=== PATIENT | male | born 1950 | race Caucasian/White ===

== ENCOUNTER 2019-02-22 09:47 | Emergency (ER) | payer OTHER, MEDICARE, SELFPAY ==
[2019-02-22 09:48] VITALS: BP 131/58; PULSE 66; RESP 15; TEMP 36.7; O2SAT 98; BMI 26.1
--- NOTE | 2019-02-22 10:02 | EKG12_ITS ---
Test Reason : ABN LABS Blood Pressure : / mmHG Vent. Rate : 056 BPM Atrial Rate : 258 BPM P-R Int : 000 ms QRS Dur : 094 ms QT Int : 410 ms P-R-T Axes : 000 -40 061 degrees QTc Int : 395 ms Atrial flutter with slow ventricular response LAHB Left axis deviation Abnormal ECG Confirmed by ISAMAR BACA ([id number]), supervising editor news reel KENAN RIDLEY ([id number]) on 02/23/2019 2:36:48 PM Referred By: DENY Confirmed By:ISAMAR BACA
--- NOTE | 2019-02-22 10:04 | ED.VIS.GEN ---
History of Present Illness Chief Complaint: Abn Labs Detail of Chief Complaint: gen weakness Informant: Patient Onset: Days - 5 or so Context: Gradual Onset Timing: Continuous Quality: weak Location: all over Current Severity: Severe Maximum Severity: Severe Worsened by: nothing Relieved by: nothing Associated Symptoms: poor appetite and po intake. disorientation. Narrative: Patient lives in independent living. He was seen at the [facility] as an outpatient yesterday for feeling bad, and was told today that his sodium was low at 121 and he should go to the hospital. He drinks around 6 cans of beer daily, states he never has withdrawal if he does not drink but states he has been doing this for decades, just because he enjoys it. He never gets intoxicated. His last drink was last night he denies any symptoms of withdrawal right now but states he will get withdrawal if he does not get a nicotine patch or tobacco. He has been feeling disoriented, gives examples of forgetting his credit card pin that has not changed in decades, forgetting to turn off the stove, etc. but has not been grossly confused about who he is, where he is, etc. Denies any focal neurologic symptoms or vision changes. - Past Medical History (1) Alcohol dependence Status: Chronic Comment: 15 beers daily (2) Asymptomatic coronary heart disease Status: Chronic (3) BPH without obstruction/lower urinary tract symptoms Status: Chronic (4) COLD (chronic obstructive lung disease) Status: Chronic (5) Paroxysmal atrial fibrillation Status: Chronic Comment: recommended anticoagulation as of 02/2014 (6) Stenosis of esophagus Status: Chronic Past Medical History - Allergies and Home Meds Allergies/Adverse Reactions: Allergies venom-honey bee [bee venom (honey bee)] Allergy (Verified 02/22/19 09:48) Anaphylaxis Primary Care Physician: [place] [Primary Care Provider] - Surgical History: herniorrhaphy, - - esophageal surgery. Lives: - - Independent living Smoking Status: Current every day smoker Alcohol: Heavy Drugs: None - Family History Maternal Family History: Reports: Cancer, Diabetes Paternal Family History: Reports: Cancer Review of Systems General: Reports: Malaise. Denies: Chills, Fever, Sweats Eyes: Denies: Visual changes - bilaterally, Diplopia ENT: Denies: Rhinorrhea, Sore throat Cardiovascular: Denies: Chest pain, Palpitations Respiratory: Denies: Dyspnea, Cough, Dyspnea on exertion Gastrointestinal: Denies: Abdominal pain, Nausea, Vomiting, Diarrhea, Melena, Hematochezia Genitourinary: Denies: Dysuria, Hematuria, Frequency Musculoskeletal: Denies: Back pain, Extremity Pain Skin: Denies: Rash, Wounds Neurological: Denies: Headache, Weakness, Numbness Physical Exam Vital Signs/Narrative: Vital Signs Temp Pulse Resp BP Pulse Ox 02/22/19 09:48 98.1 F 66 15 131/58 H 98 Inital Vital Signs reviewed: Yes General: Well nourished, Well developed, No Acute Distress Head: Normocephalic, Atraumatic Eyes: Perrl, EOMI. Negative for: Scleral icterus ENT: Moist mucous membranes, No rhinorrhea Neck: Supple, Nontender, No lymphadenopathy, No JVD Cardiovascular: Regular rate, Regular rhythm, No murmurs, Normal S1, Normal S2 Respiratory: No distress, CTA bilaterally, Chest nontender Abdomen: Soft, Nontender, Normal bowel sounds, - - Distended obese, nontender abdomen without fluid wave Back: Nontender, Normal Inspection Extremities: Nontender, No edema. Negative for: Calf Tenderness Skin: Normal color, No rash, No Trauma Neurological: Alert, Oriented x3, Cranial nerves II-XII grossly intact, Normal Strength, Normal Sensation Psychological: Normal affect, Normal Mood Diagnostic/Tx/Re-eval Laboratory Results 02/22/19 02/22/19 02/22/19 10:23 10:23 10:23 WBC 11.8 H RBC 4.63 Hgb 16.1 Hct 44.9 MCV 97.0 H MCH 34.8 H MCHC 35.9 RDW Std Deviation 44.0 H RDW Coeff of Fredi 12.4 Plt Count 198 MPV 9.1 Immature Gran % (Auto) 0.300 Neut % (Auto) 83.1 H Lymph % (Auto) 7.5 L Jackson % (Auto) 8.6 Eos % (Auto) 0.3 Baso % (Auto) 0.2 Absolute Neuts (auto) 9.8 H Absolute Lymphs (auto) 0.89 Nucleated RBC % 0 PT 13.2 INR 1.0 Sodium 126 L Potassium 4.5 Chloride 91 L Carbon Dioxide 26.0 Anion Gap 9 BUN 6 L Creatinine 0.75 Estim Creat Clear Calc 77.68 Est GFR (MDRD) Af Amer 132 Est GFR (MDRD) Non-Af 109 BUN/Creatinine Ratio 8.0 L Glucose 97 Calcium 9.0 Total Bilirubin 0.60 AST 18 ALT 23 Alkaline Phosphatase 94 Troponin I < 0.015 Total Protein 7.7 Albumin 3.6 Globulin 4.1 Albumin/Globulin Ratio 0.9 Urine Color Urine Clarity Urine pH Ur Specific [place] Urine Protein Urine Glucose (UA) Urine Ketones Urine Occult Blood Urine Nitrite Urine Bilirubin Urine Urobilinogen Ur Leukocyte Esterase Urine RBC Urine WBC Ur Squamous Epith Cells Urine Bacteria Urine Mucus Ethyl Alcohol 02/22/19 02/22/19 10:23 12:10 WBC RBC Hgb Hct MCV MCH MCHC RDW Std Deviation RDW Coeff of Fredi Plt Count MPV Immature Gran % (Auto) Neut % (Auto) Lymph % (Auto) Jackson % (Auto) Eos % (Auto) Baso % (Auto) Absolute Neuts (auto) Absolute Lymphs (auto) Nucleated RBC % PT INR Sodium Potassium Chloride Carbon Dioxide Anion Gap BUN Creatinine Estim Creat Clear Calc Est GFR (MDRD) Af Amer Est GFR (MDRD) Non-Af BUN/Creatinine Ratio Glucose Calcium Total Bilirubin AST ALT Alkaline Phosphatase Troponin I Total Protein Albumin Globulin Albumin/Globulin Ratio Urine Color Yellow Urine Clarity Clear Urine pH 7.0 Ur Specific [place] 1.005 Urine Protein Negative Urine Glucose (UA) Normal Urine Ketones Negative Urine Occult Blood Negative Urine Nitrite Negative Urine Bilirubin Negative Urine Urobilinogen Normal Ur Leukocyte Esterase Negative Urine RBC 0 SEEN Urine WBC 0 SEEN Ur Squamous Epith Cells 0 SEEN Urine Bacteria RARE Urine Mucus 0 SEEN Ethyl Alcohol 4.0 - Rhythm Strip Rhythm Strip: Sinus Rhythm Rate: 60 Ectopy: None - EKG Initial EKG Interpretation: Sinus Rhythm - with background tremor, No Acute Injury Pattern, - - PVC Prior: Unchanged - except for background tremor - Medical Decision Making Sodium is higher now, at 126. I suspect he was some dramatic from his hyponatremia, which is likely due to heavy alcohol use. His EKG has rhythmic background artifact that I suspect is more likely tremor rather than a flutter. The rate is less than 300. His ventricular rate is in the 50s. He was given a meal tray and ate the entire thing without any difficulty, he is able to ambulate, but does better with a walker. We had social worker delinquency prevention evaluate him, to see if there was anything that could help him at home. I initially discussed with the hospitalist for further correction of his sodium but Dr. reyna declined since his sodium is at his baseline and he has obvious cause for it, likely his alcohol use. Discussed with him and he is comfortable going home at this time and will call for a ride. ED Disposition - Plan for ED Patient: Disposition: Home or Assisted Living Diagnosis: Hyponatremia, Alcohol dependence Instructions: Hyponatremia [place]errals[place] [facility] [Primary Care Provider] - 3-5 Days
[2019-02-22 10:35] LABS: Absolute Lymphocyte Count 0.89 X10^3/uL (0.83-4.51); Absolute Neutrophil Count 9.8 X10^3/uL (2.0-7.7); Basophil# 0.02 X10^3/uL; Basophil% 0.2 % (0-1); Eosinophil# 0.03 X10^3/uL; Eosinophils% 0.3 % (0-5); Hematocrit 44.9 % (40-54); Hemoglobin 16.1 g/dL (13.0-16.5); Lymphocyte # 0.89 X10^3/ul (4.0); Lymphocyte % 7.5 % (19-41); Mean Corp Hgb Conc 35.9 g/dL (32-36); Mean Corpuscular Hgb 34.8 pg (27.0-32.0); Mean Platelet Vol. 9.1 fl (6.2-12.0); Monocyte# 1.02 X10^3/uL; Monocyte% 8.6 % (0-10); NRBC Flagged by Analyzer 0 % (0-5); Neutrophil % 83.1 % (47-70); Platelet Count 198 K/mm3 (150-450); RBC Distribution Width CV 12.4 % (11.6-14.6); Red Blood Count 4.63 M/mm3 (4.6-6.2); White Blood Count 11.8 K/mm3 (4.4-11.0)
[2019-02-22 10:46] LABS: Prothrombin Time (Protime)PT. 13.2 SECONDS (11.7-14.9)
[2019-02-22 10:48] VITALS: TEMP 36.6
[2019-02-22 10:54] LABS: ALB/GLOB Ratio 0.9 RATIO (0.9-2.4); AST(SGOT) 18 U/L (15-37); Alanine Aminotransfer ALT/SGPT 23 U/L (16-61); Albumin, Serum 3.6 g/dL (3.2-5.0); Alkaline Phosphatase 94 U/L (45-117); Anion Gap 9 (5-15); BUN 6 mg/dL (7-18); Chloride 91 mmol/L (98-107); Creatinine, Serum 0.75 mg/dL (0.70-1.30); EST Glomerular Filtration Rate 109 mL/min (>60); Est Glom Filt Rate - Afr Amer 132 mL/min (>60); Estimated Creatinine Clearance 77.68 ml/min; Globulin 4.1 g/dL (2.2-4.2); Glucose 97 mg/dL (74-106); Potassium 4.5 mmol/L (3.5-5.1); Protein, Total 7.7 g/dL (6.4-8.2); Sodium Level 126 mmol/L (136-145)
[2019-02-22 11:15] VITALS: BP 125/77; PULSE 50; RESP 18; O2SAT 96
[2019-02-22] MEDS: 0.9% Normal Saline 1,000 ML 125 ML IV (11:15)
[2019-02-22 12:19] LABS: Mucous, Urine 0 SEEN /hpf (<or=2+); Red Blood Cells-Urine 0 SEEN /hpf (0-5); Squamous Epithelial Cells - UA 0 SEEN /hpf (0-5); White Blood Cells 0 SEEN /hpf (0-5)
[2019-02-22 12:29] LABS: Color, Urine Yellow (Yellow); Glucose, Dipstick Normal (Normal); Ketone-Dipstick Negative (Negative); Leukocyte Esterase-Dipstick Negative /ul (Negative); Nitrite-Dipstick Negative (Negative); Occult Blood-Urine Negative /ul (Negative); Protein-Dipstick Negative (Negative); Specific Gravity, Urine 1.005 (1.002-1.030); Urine Bilirubin Dipstick Negative (Negative); Urine Clarity Clear (Clear); Urine Urobilinogen Normal (Normal)
[2019-02-22 12:35] LABS: Bacteria RARE /hpf (None Seen)
--- NOTE | 2019-02-22 12:50 | ED.RN ---
AMBULATED PT WITH A WALKER AND PT WS STEADY AND DID GREAT. WITHOUT THE WALKER HE WOULD GET UNSTEADY.
[2019-02-22 13:28] VITALS: BP 125/82; PULSE 77; RESP 20; O2SAT 95
[2019-02-22 14:10] VITALS: BP 134/87; PULSE 82; RESP 15; O2SAT 95
== END 2019-02-22 14:11 | disposition home or self-care (01) ==
PROVIDERS: Emergency Provider Emergency Medicine
DX: E87.1 Hypo-osmolality and hyponatremia (principal); F10.20 Alcohol dependence, uncomplicated; Y90.9 Presence of alcohol in blood, level not specified; F17.200 Nicotine dependence, unspecified, uncomplicated; I25.10 Atherosclerotic heart disease of native coronary artery without angina pectoris; N40.0 Benign prostatic hyperplasia without lower urinary tract symptoms; J44.9 Chronic obstructive pulmonary disease, unspecified; I48.0 Paroxysmal atrial fibrillation
CPT/HCPCS: 80053; 80320; 81001; 84484; 85025; 85610; 93005; 96360; 96361; 99285; J7030; A4216; G0480

== ENCOUNTER 2019-10-02 19:32 | Inpatient (IN) | payer MEDICARE, MEDICAID, SELFPAY ==
[2019-10-02 19:33] VITALS: BP 161/62; PULSE 45; RESP 16; TEMP 36.7; O2SAT 98; BMI 28.3
--- NOTE | 2019-10-02 20:47 | CT_ITS ---
STUDY: CT BRAIN WITHOUT CONTRAST REASON FOR EXAM: Male, 69 years old. PT STATED GENERAL WEAKNESS RADIATION DOSAGE (If Supplied By Facility): CTDIvol = ( 44.99 ) mGy, DLP = ( 829.85 ) mGycm TECHNIQUE: Transaxial CT imaging of the brain was performed without administration of intravenous contrast material. Individualized dose optimization techniques were used for this CT. COMPARISON: 03/01/2014 FINDINGS: Normal soft tissue structures. Normal calvarium. There is moderate cerebral atrophy with widening of the extra-axial spaces and ventricular dilatation. There are areas of decreased attenuation within the white matter tracts of the supratentorial brain, consistent with microvascular disease changes. There are small punctate calcifications of the basal ganglia which are seen in the aging brain as a normal variant. Normal brainstem. Normal cerebellum. There is no intracranial hemorrhage. There are no findings of an acute ischemic infarction. There is mucoperiosteal inflammatory disease of the paranasal sinuses consistent with moderate chronic sinusitis. Complete opacification of the left sphenoid sinus consistent with sinusitis. CT/Brain/Head without Contrast IMPRESSION: 1. Chronic involutional changes of the brain. 2. Maxillary, ethmoid, and sphenoid sinusitis. Electronically Signed: Petr Black MD at 21:57 EDT Tel , Service support ,
--- NOTE | 2019-10-02 20:47 | EKG12_ITS ---
Test Reason : WEAKNESS Blood Pressure : / mmHG Vent. Rate : 059 BPM Atrial Rate : 058 BPM P-R Int : 000 ms QRS Dur : 090 ms QT Int : 254 ms P-R-T Axes : 000 -20 -18 degrees QTc Int : 251 ms Normal sinus rhythm Nonspecific ST and T wave abnormality Abnormal ECG Confirmed by JUANI RUBIN, JAY ([id number]), newspaper or periodical editor KATIE GUTIERREZ ([id number]) on 10/06/2019 9:11:14 AM Referred By: HEATHER Confirmed By:JAY GLORIA MD
[2019-10-02 21:00] VITALS: BP 185/76; PULSE 56; RESP 20; O2SAT 97
--- NOTE | 2019-10-02 21:30 | RAD_ITS ---
STUDY: X-RAY CHEST REASON FOR EXAM: Male, 69 years old. weakness, fall, +ETOH TECHNIQUE: PA and lateral views of the chest. COMPARISON: 03/01/2014 FINDINGS: The lungs are clear and expanded. There is no demonstrated pleural abnormality. Normal size heart. Normal mediastinum and sofía. Normal visualized pulmonary arteries. Normal visualized aortic arch and descending thoracic aorta. Normal visualized thoracic spine. Normal visualized ribs, clavicles, and shoulders. There is no demonstrated abnormality of the visualized soft tissue structures of the upper abdomen. RAD/Chest PA and Lateral IMPRESSION: Normal x-ray examination of the chest. Electronically Signed: Petr Black MD at 21:55 EDT Tel , Service support ,
[2019-10-02 21:41] LABS: Absolute Lymphocyte Count 1.77 X10^3/uL (0.83-4.51); Absolute Neutrophil Count 4.4 X10^3/uL (2.0-7.7); Basophil# 0.04 X10^3/uL; Basophil% 0.5 % (0-1); Eosinophil# 0.06 X10^3/uL; Eosinophils% 0.8 % (0-5); Hematocrit 44.5 % (40-54); Hemoglobin 14.9 g/dL (13.0-16.5); Lymphocyte # 1.77 X10^3/ul (4.0); Lymphocyte % 24.1 % (19-41); Mean Corp Hgb Conc 33.5 g/dL (32-36); Mean Corpuscular Hgb 34.3 pg (27.0-32.0); Mean Corpuscular Volume 102.3 fL (80-94); Mean Platelet Vol. 10.5 fl (6.2-12.0); Monocyte# 1.04 X10^3/uL; Monocyte% 14.2 % (0-10); NRBC Flagged by Analyzer 0 % (0-5); Neutrophil # 4.41 X10^3/uL (2.7-7.7); Neutrophil % 60.1 % (47-70); Platelet Count 137 K/mm3 (150-450); RBC Distribution Width CV 13.5 % (11.6-14.6); RBC Distribution Width SD 51.2 fl (35.1-43.9); Red Blood Count 4.35 M/mm3 (4.6-6.2); White Blood Count 7.3 K/mm3 (4.4-11.0)
[2019-10-02 21:51] LABS: ALB/GLOB Ratio 0.7 RATIO (0.9-2.4); AST(SGOT) 47 U/L (15-37); Alanine Aminotransfer ALT/SGPT 36 U/L (16-61); Albumin, Serum 3.3 g/dL (3.2-5.0); Alkaline Phosphatase 130 U/L (45-117); Anion Gap 11 (5-15); BUN 6 mg/dL (7-18); BUN/Creat Ratio 9.2 RATIO (10-20); Calcium,Total 8.4 mg/dL (8.5-10.1); Chloride 92 mmol/L (98-107); Creatinine, Serum 0.65 mg/dL (0.70-1.30); EST Glomerular Filtration Rate 128 mL/min (>60); Est Glom Filt Rate - Afr Amer 155 mL/min (>60); Estimated Creatinine Clearance 74.37 ml/min; Globulin 4.9 g/dL (2.2-4.2); Glucose 74 mg/dL (74-106); Lipase 56 U/L (73-393); Potassium 4.1 mmol/L (3.5-5.1); Protein, Total 8.2 g/dL (6.4-8.2); Sodium Level 129 mmol/L (136-145)
[2019-10-02 22:21] VITALS: BP 193/76; PULSE 59; RESP 20; O2SAT 93
[2019-10-02 22:35] LABS: Bacteria 0 SEEN /hpf (None Seen); Mucous, Urine 0 SEEN /hpf (<or=2+); Red Blood Cells-Urine 0 SEEN /hpf (0-5); Squamous Epithelial Cells - UA 0 SEEN /hpf (0-5); White Blood Cells 0 SEEN /hpf (0-5)
[2019-10-02 22:37] LABS: Color, Urine Yellow (Yellow); Glucose, Dipstick Normal (Normal); Ketone-Dipstick Negative (Negative); Leukocyte Esterase-Dipstick Negative /ul (Negative); Nitrite-Dipstick Negative (Negative); Occult Blood-Urine Negative /ul (Negative); Protein-Dipstick Negative (Negative); Urine Bilirubin Dipstick Negative (Negative); Urine Clarity Clear (Clear); Urine Urobilinogen Normal (Normal)
[2019-10-02 22:46] LABS: Partial Thromboplast Time 31.2 Seconds (24.1-36.2)
--- NOTE | 2019-10-02 23:13 | ED.VIS.GEN ---
History of Present Illness Chief Complaint: Weakness Informant: Patient, [employer] Narrative: Patient called EMS after he had fallen was able to get up off the floor. Tells me he went to the [facility] in [place] on Thursday and his doctor advised him that because of his frequent falls he should be admitted into the hospital be placed in a rehab facility. Patient declined medicine today when he fell he was unable to get up this time he hit his medic alert and realizes that it is time that he gets help. He notes his legs are swollen. He states that he has been unable to get any type of exercise and so all this winter he has been sitting in his chair chain smoking and drinking beer. He states he drinks a sixpack of day at minimum. Patient denies that he is hurt himself in these falls other than some bruises. Past Medical History - Allergies and Home Meds Allergies/Adverse Reactions: Allergies venom-honey bee [bee venom (honey bee)] Allergy (Verified 10/02/19 19:33) Anaphylaxis Primary Care Physician: [facility] [Primary Care Provider] - Surgical History: herniorrhaphy, - - esophageal surgery. Smoking Status: Current every day smoker - Family History Maternal Family History: Reports: Cancer, Diabetes Paternal Family History: Reports: Cancer Review of Systems General: Reports: Malaise. Denies: Chills, Fever, Sweats Eyes: Denies: Visual changes - bilaterally, Diplopia ENT: Denies: Rhinorrhea, Sore throat Cardiovascular: Denies: Chest pain, Palpitations Respiratory: Denies: Dyspnea, Cough, Dyspnea on exertion Gastrointestinal: Denies: Abdominal pain, Nausea, Vomiting, Diarrhea, Melena, Hematochezia Genitourinary: Denies: Dysuria, Hematuria, Frequency Musculoskeletal: Denies: Back pain, Extremity Pain Skin: Denies: Rash, Wounds Neurological: Denies: Headache, Weakness, Numbness Psych: Reports: Depression. Denies: Suicidal thoughts, Suicidal ideations Hematologic: Reports: Easy bruising, Easy bleeding Physical Exam Vital Signs/Narrative: Vital Signs Temp Pulse Resp BP Pulse Ox 10/02/19 22:21 59 L 20 H 193/76 H 93 10/02/19 19:33 98.1 F 45 L 16 161/62 H 98 Inital Vital Signs reviewed: Yes General: Well nourished, Well developed, Unkempt - Patient has heavy tobacco stains of his fingers. His toes have significant dirt buildup in between them., No Acute Distress Head: Normocephalic, Atraumatic Eyes: Perrl, EOMI ENT: Moist mucous membranes, No rhinorrhea Neck: Supple, Nontender Cardiovascular: Regular rate, Regular rhythm, No murmurs Respiratory: No distress, CTA bilaterally, Chest nontender Abdomen: Soft, Nontender, Nondistended, Normal bowel sounds Back: Nontender, Normal Inspection Extremities: Nontender, Edema, - - Patient has pitting edema of the bilateral lower extremities. He has no hair. The right leg in particular demonstrates rubor of the leg and the foot. Skin: Normal color, No rash Neurological: Alert, Oriented x3, Cranial nerves II-XII grossly intact, Normal Strength, Normal Sensation Psychological: Normal affect, Normal Mood Diagnostic/Tx/Re-eval - Medical Decision Making Basic labs were obtained. His EKG shows atrial fibrillation that is rate controlled at 59. Patient's alcohol level is elevated. I spoke with him and advised him that he would not be drinking in the hospital or rehab. He states he is interested in getting help with his alcohol. He is certainly failing to thrive in the outpatient setting. Our plan will be admission for detoxification and probable placement into rehab facility. ED Disposition - Plan for ED Patient: Diagnosis: Alcohol abuse, Failure to thrive, Lymphedema [facility] [facility] [Primary [facility] Provider] -
[2019-10-02 23:27] VITALS: BP 173/62; PULSE 60; RESP 20; TEMP 36.8; O2SAT 97
[2019-10-02 23:30] LABS: Magnesium 1.8 mg/dL (1.6-2.6); Phosphorus 3.4 mg/dL (2.5-4.9)
--- NOTE | 2019-10-02 23:31 | HP.PCM_ITS ---
Problem List (1) Alcohol withdrawal Status: Acute Qualifiers: Complication of substance-induced condition: with unspecified complication Qualified Code(s): F10.239 - Alcohol dependence with withdrawal, unspecified (2) CAD (coronary artery disease) Status: Chronic Qualifiers: Coronary Disease-Associated Artery/Lesion type: unspecified vessel or lesion type [place] vs. transplanted heart: unspecified whether [place] or transplanted heart Associated angina: angina presence unspecified Qualified Code(s): I25.10 - Atherosclerotic heart disease of [place] coronary artery without angina pectoris (3) HTN (hypertension) Status: Chronic Qualifiers: Hypertension type: essential hypertension Qualified Code(s): I10 - Essential (primary) hypertension (4) HLD (hyperlipidemia) Status: Chronic Qualifiers: Hyperlipidemia type: unspecified Qualified Code(s): E78.5 - Hyperlipidemia, unspecified (5) PVD (peripheral vascular disease) Status: Chronic (6) Alcohol abuse Status: Chronic (7) Failure to thrive Status: Chronic Qualifiers: Failure to thrive age range: in adult Qualified Code(s): R62.7 - Adult failure to thrive (8) BPH without obstruction/lower urinary tract symptoms Status: Chronic (9) COLD (chronic obstructive lung disease) Status: Chronic Qualifiers: COPD type: unspecified COPD Qualified Code(s): J44.9 - Chronic obstructive pulmonary disease, unspecified (10) Paroxysmal atrial fibrillation Status: Chronic Comment: recommended anticoagulation as of 02/2014 (11) Tobacco use disorder Status: Chronic (12) Stenosis of esophagus Status: Chronic History of Present Illness Date of Admission: 10/02/19 Chief Complaint: Acute EtOH Withdrawal The patient is a 69 y/o M[facility] w/ PMHx: PAF, CAD s/p PCI x 1, HTN, HLD, Chronic Lymphedema, Chronic hyponatremia secondary to beer potomania, BPH, GERD, Anxiety and Depression/Bipolar disorder, Chronic COPD, Tobacco use who presents to the [facility] ED on 10/02/19 w/ noted acute EtOH withdrawal, onset starting evening of ED day of presentation following last EtOH intake earlier in the day he notes with normally > 8, 12 ounce beers daily with onset of nausea, tremors, agitation, tactile disturbances. Patient interested in attaining sober status as noted significant need for senior living facility placement secondary to ongoing frequent falls including on day of presentation. He has had ongoing history of frequent falls, more severe over the last several days to week. He has notable bilateral lower extremity chronic swelling and discoloration with neuropathy. He does admit that he has very poor self-care and does appear disheveled. Work-up in the ED included T 98.1, heart rate 45-60, BP 161/62, respiratory rate 16, 98% on room air, CBC with WBC 7.3, hemoglobin 14.9, platelet 137 with no market left shift with increased monocytes, unremarkable coags, CMP with sodium 129, chloride 92, BUN/creatinine 6/0.65, glucose 74, AST/ALT 47/36, alk phos 130, troponin less than 0.015, lipase 56, urinalysis unremarkable, ethyl alcohol 193, chest x-ray with no acute cardiopulmonary findings, CT brain with chronic involutional changes as well as noted maxillary, ethmoid and sphenoid sinusitis. In the ED patient administered a nicotine 21 mg patch. Past Medical History Past Medical History (Chronic Problems): Chronic Problems Alcohol abuse (Chronic) Failure to thrive (Chronic) CAD (coronary artery disease) (Chronic) HTN (hypertension) (Chronic) HLD (hyperlipidemia) (Chronic) PVD (peripheral vascular disease) (Chronic) BPH without obstruction/lower urinary tract symptoms (Chronic) COLD (chronic obstructive lung disease) (Chronic) Atelectasis (Chronic) Asymptomatic coronary heart disease (Chronic) Alcohol dependence (Chronic) 15 beers daily Paroxysmal atrial fibrillation (Chronic) recommended anticoagulation as of 02/2014 Tobacco use disorder (Chronic) Stenosis of esophagus (Chronic) Allergies venom-honey bee [bee venom (honey bee)] Allergy (Verified 10/02/19 19:33) Anaphylaxis Home Medications: Ambulatory Orders Medication Instructions Recorded Budesonide Inhaler 180 mcg 2 puff INHALATION BID 02/22/19 [Pulmicort Inhaler 180 mcg] Cholecalciferol (VIT D3) [Vitamin 2,000 unit PO DAILY 02/22/19 D] Divalproex Sodium [Divalproex 500 mg PO QHS 02/22/19 Sodium ER] Finasteride 5 mg PO DAILY 02/22/19 Melatonin [Melatin] 3 mg PO QHS 02/22/19 Olanzapine 15 mg PO QHS 02/22/19 Omeprazole [Prilosec] 20 mg PO DAILY 02/22/19 Sennosides/Docusate Sodium 1 ea PO BID 02/22/19 [Docusate Sodium-Senna Tablet] Tamsulosin HCl [Flomax] 0.4 mg PO QHS 02/22/19 Tizanidine HCl [Zanaflex] 4 mg PO TID PRN PRN 02/22/19 Albuterol Inhaler [Ventolin Hfa 1 - 2 puff INHALATION Q6H PRN PRN 10/02/19 (SP)] Ensure Plus 1 dose PO DAILY 10/02/19 Surgical History: herniorrhaphy, - - Right inguinal hernia, PCI x1, reportedly esophageal intervention noted from prior reports. Psychiatric History: Anxiety, Bipolar, Depression Lives: Alone Smoking Status: Current every day smoker - Ongoing 1 pack/day cigarette tobacco usage. Tobacco Use: Cigarettes Alcohol: Heavy - Greater than 8, 12 ounce beers daily. Drugs: None - *Family History Maternal History Items: Cancer, Diabetes Paternal History Items: Cancer Review of Systems Constitutional: Reports: Anorexia, Malaise, Weakness, Fatigue. Denies: Chills, Fever, Weight Change HEENT: Denies: Head Aches, Sinus Congestion, Sinus Drainage Cardiovascular: Denies: Chest Pain, Palpitations Respiratory: Reports: Cough, Wheezing. Denies: Shortness of Breath, Shortness of breath at rest, Shortness of breath upon exertion, Sputum production Gastrointestinal: Reports: Nausea. Denies: Abdominal Pain, Vomiting Genitourinary: Denies: Dysuria Musculoskeletal: Reports: Joint Pain, Joint stiffness, Joint swelling, Joint Tenderness, Leg Pain Skin: Reports: Skin Changes. Denies: Rash, Wounds Neurological: Reports: Tremor. Denies: Focal weakness, Numbness, Tingling Psychiatric: Reports: Anxiety, Depression. Denies: Homicidal Ideations, Suicidal Ideations Hematologic/ Lymphatic: Reports: Easy Bruising, Easy Bleeding VTE Information - Inpt Only VTE Present on Admission: No VTE Mechan Device Prophylaxis: SCD's VTE Pharm Prophylaxis ordered?: Yes Patient Problems: Active and Suspected Problems Lymphedema (Acute) Alcohol withdrawal (Acute) Subjective: Patient seated upright in the ED bed, fatigued appearance, notable scleral injection, active tremors. Objective: Physical Examination: General: awake, alert, oriented x 3 and cooperative, seated upright in the ED bed, mildly anxious, fatigued, active tremors evident Skin: normal color, turgor, no icterus, cyanosis except notable occasional staged ecchymoses to the extremities primarily and significant bilateral lower extremity venous stasis changes, mild duskiness of the right foot. HEENT: AT/NC, EOMI, PERRLA, severe bilateral scleral injection, dry MM, no carotid bruits or JVD noted. Lungs: Diminished breath sounds, greater bases, end expiratory wheezing, occasional cough which he notes is chronic, states he is always wheezing not on regimen with continued tobacco use, no rhonchi or rales. Heart: Bradycardic; no gallop, rub audible. Abdomen: soft, NTTP, ND, normal BS, positive HM Extremities: no cyanosis, clubbing, see skin, bilateral lower extremity pedal to knee 2+ pitting edema, significant stasis changes as noted Neurological: patient awake, alert, oriented x 3; cognitive function suspect likely baseline intact; pupils equally reactive to light and accomodation; cranial nerves II-XII grossly normal, moving all 4 extremities, no focal deficits, strength moderately to severely global decrease secondary to acute presentation. Psychiatric: affect appears mildly anxious, fatigued, no acute evidence of depressive feelings. - Physical Exam Vitals/I&O's: Vital Signs Temp Pulse Resp BP Pulse Ox 98.3 F 60 20 H 173/62 H 97 10/02/19 23:27 10/02/19 23:27 10/02/19 23:27 10/02/19 23:27 10/02/19 23:27 Oxygen Delivery Method Room Air Weight: 208 lb 12.444 oz Body Mass Index (BMI) 28.3 Finger Stick Blood Glucose 78 Laboratory Results 10/02/19 21:14: WBC 7.3, RBC 4.35 L, Hgb 14.9, Hct 44.5, MCV 102.3 H, MCH 34.3 H , MCHC 33.5, RDW Std Deviation 51.2 H, RDW Coeff of Fredi 13.5, Plt Count 137 L, MPV 10.5, Immature Gran % (Auto) 0.300, Neut % (Auto) 60.1, Lymph % (Auto) 24.1, [place] % (Auto) 14.2 H, Eos % (Auto) 0.8, Baso % (Auto) 0.5, Absolute Neuts (auto) 4.4, Absolute Lymphs (auto) 1.77, Nucleated RBC % 0 10/02/19 21:14: PT Cancelled, INR Cancelled, APTT Cancelled 10/02/19 21:14: Sodium 129 L, Potassium 4.1, Chloride 92 L, Carbon Dioxide 26.0, Anion Gap 11, BUN 6 L, Creatinine 0.65 L, Estim Creat Clear Calc 74.37, Est GFR (MDRD) Af Amer 155, Est GFR (MDRD) Non-Af 128, BUN/Creatinine Ratio 9.2 L, Glucose 74, Calcium 8.4 L, Total Bilirubin 0.60, AST 47 H, ALT 36, Alkaline Phosphatase 130 H, Troponin I < 0.015, Total Protein 8.2, Albumin 3.3, Globulin 4.9 H, Albumin/Globulin Ratio 0.7 L, Lipase 56 L 10/02/19 21:14: Ethyl Alcohol 193.0 10/02/19 21:14: Phosphorus 3.4, Magnesium 1.8 10/02/19 22:20: PT 13.0, INR 1.0, APTT 31.2 10/02/19 22:30: Urine Color Yellow, Urine Clarity Clear, Urine pH 7.0, Ur Specific [place] 1.010, Urine Protein Negative, Urine Glucose (UA) Normal, Urine Ketones Negative, Urine Occult Blood Negative, Urine Nitrite Negative, Urine Bilirubin Negative, Urine Urobilinogen Normal, Ur Leukocyte Esterase Negative, Urine RBC 0 SEEN, Urine WBC 0 SEEN, Ur Squamous Epith Cells 0 SEEN, Urine Bacteria 0 SEEN, Urine Mucus 0 SEEN Assessment/Plan All Active Problems Lymphedema (Acute) Alcohol withdrawal (Acute) The patient is a 69 y/o M, [facility] w/ PMHx: PAF, CAD s/p PCI x 1, HTN, HLD, Chronic Lymphedema, Chronic hyponatremia secondary to beer potomania, BPH, GERD, Anxiety and Depression/Bipolar disorder, Chronic COPD, Tobacco use who presents to the [facility] ED on 10/02/19 w/ noted acute EtOH withdrawal, onset starting evening of ED day of presentation following last EtOH intake earlier in the day he notes with normally > 8, 12 ounce beers daily with onset of nausea, tremors, agitation, tactile disturbances. 1. Acute EtOH Withdrawal: Will admit to medical surgical floor, routine labs obtained in the ED upon presentation and notable for chronic hyponatremia otherwise no severe findings. Given interest in sobriety, will initiate and continue on protocol with taper course of Phenobarbital, scheduled gabapentin for seizure prophylaxis, as needed Catapres, Bentyl, Vistaril, IV fluids, IV antiemetics, Tylenol as needed for pain. Will consult Case management for assistance for transition to next level of rehabilitation care. Mag, phos pending. Maintain on CIWA protocol concurrently. Given frequency of falls and debility with failure to thrive in adult likely associated with his acute alcohol abuse would obtain PT/OT/case management consultations for likely need for senior living facility possibly [facility] facility placement. 2. Chronic Venous Stasis with Chronic Lymphedema, concern for arterial disease poor bilateral pedal care: Will obtain consultation with Wound Care, maintain snug ELADIO wraps as well as elevation, continue baby aspirin, add statin, obtain CRISTIANA PVR evaluation bilateral lower extremities. 3. Hypertension, uncontrolled: Patient with elevated BPs in the ED, not on regimen, possibly secondary to acute presentation #1 although given underlying CAD would consider addition of ELADIO inhibitor versus ARB if no improvement with treatment of acute presentation #1, defer beta-natasha given bradycardia noted, PRN IV hydralazine in interim. 4. Chronic hyponatremia: Admission sodium 129, similar to baseline, likely secondary to chronic beer intake with beer potomania, trend. 5. CAD: Status post PCI x1, will maintain on aspirin, add statin especially given concern for PAD, add as noted ARB versus ELADIO inhibitor if BP ongoing elevation following treatment #1, defer any beta-natasha therapy given noted bradycardia. 6. Chronic pain syndrome: We will continue patient home PRN Zanaflex, notes chronic bilateral lower extremity and hip discomfort with spasms. Possibly contributes to acute presentation with falls. 7. Chronic COPD: We will maintain on ATC duonebs, PRN albuterol, HOB, IS parameters. 8. PAF: We will continue patient home aspirin, not anticoagulated secondary to significant fall risk, not on rate or rhythm agent with noted bradycardia upon ED presentation. 9. BPH: We will continue patient home Flomax and finasteride regimen. 10. Anxiety and depression/bipolar disorder: We will continue patient home Depakote, olanzapine regimen. 11. Tobacco Abuse: Encouraged cessation, inpatient consultation per RT, NR if desired. 12. GERD: Maintain on home PPI. 13. DVT prophylaxis: SCDs, Lovenox cautiously given mild thrombocytopenia likely secondary to alcohol abuse. Inpatient E&M: 78869 Init Hosp L3
[2019-10-03] VITALS (9 sets, daily range): BP systolic 137–195; BP diastolic 55–91; PULSE 52–65; RESP 18–20; TEMP 36.6–37.5; O2SAT 93–97; BMI 26.8
[2019-10-03] MEDS: 0.9% Normal Saline 1,000 ML 100 ML IV (00:56)
[2019-10-03] MEDS: Gabapentin 300 MG Capsule PO ×4 (00:57→17:27)
[2019-10-03] MEDS: guaiFENesin 1,200 MG Tablet 1200 MG PO ×3 (00:57→21:19)
[2019-10-03] MEDS: Phenobarbital 32.4 MG Tablet PO ×6 (01:43→21:19)
[2019-10-03] MEDS: 0.9% Saline Lock 10 ML Syringe IV (01:43)
[2019-10-03] MEDS: OLANZapine 5 MG/TAB TAB.RAPDIS 15 MG PO ×2 (02:15→21:21)
[2019-10-03] MEDS: traZODone 100 MG Tablet PO ×2 (02:15→21:26)
[2019-10-03] MEDS: Menthol/Lanolin/Calamine/Znox 113 GM Tube 1 APPLIC TOPICAL ×4 (05:43→21:19)
[2019-10-03] MEDS: Nystatin Powder 15gm Bottle 1 APPLIC TOPICAL ×3 (05:43→21:19)
[2019-10-03 06:02] LABS: Absolute Lymphocyte Count 1.12 X10^3/uL (0.83-4.51); Absolute Neutrophil Count 3.7 X10^3/uL (2.0-7.7); Basophil# 0.05 X10^3/uL; Basophil% 0.9 % (0-1); Eosinophil# 0.14 X10^3/uL; Eosinophils% 2.4 % (0-5); Hemoglobin 14.5 g/dL (13.0-16.5); Lymphocyte # 1.12 X10^3/ul (4.0); Lymphocyte % 19.1 % (19-41); Mean Corp Hgb Conc 33.7 g/dL (32-36); Mean Corpuscular Hgb 34.1 pg (27.0-32.0); Mean Corpuscular Volume 101.2 fL (80-94); Mean Platelet Vol. 10.1 fl (6.2-12.0); Monocyte# 0.81 X10^3/uL; Monocyte% 13.8 % (0-10); NRBC Flagged by Analyzer 0 % (0-5); Neutrophil # 3.72 X10^3/uL (2.7-7.7); Neutrophil % 63.6 % (47-70); Platelet Count 130 K/mm3 (150-450); RBC Distribution Width CV 13.5 % (11.6-14.6); RBC Distribution Width SD 50.1 fl (35.1-43.9); Red Blood Count 4.25 M/mm3 (4.6-6.2); White Blood Count 5.9 K/mm3 (4.4-11.0)
[2019-10-03 06:33] LABS: BUN 5 mg/dL (7-18); Creatinine, Serum 0.49 mg/dL (0.70-1.30); EST Glomerular Filtration Rate 178 mL/min (>60); Estimated Creatinine Clearance 74.37 ml/min; Glucose 82 mg/dL (74-106)
[2019-10-03 06:34] LABS: ALB/GLOB Ratio 0.7 RATIO (0.9-2.4); AST(SGOT) 35 U/L (15-37); Alanine Aminotransfer ALT/SGPT 31 U/L (16-61); Albumin, Serum 2.9 g/dL (3.2-5.0); Alkaline Phosphatase 120 U/L (45-117); Anion Gap 7 (5-15); BUN/Creat Ratio 10.2 RATIO (10-20); Calcium,Total 8.3 mg/dL (8.5-10.1); Chloride 102 mmol/L (98-107); Est Glom Filt Rate - Afr Amer 215 mL/min (>60); Globulin 4.4 g/dL (2.2-4.2); Potassium 3.9 mmol/L (3.5-5.1); Protein, Total 7.3 g/dL (6.4-8.2); Sodium Level 137 mmol/L (136-145)
--- NOTE | 2019-10-03 07:55 | NURSING ---
Was asked to see patient for redness to buttocks. patient has calmoseptine over buttocks and scrotum. no open areas noted. patient has been incontinent. plan to continue calmoseptine for now. no need for wound care at this time. will monitor.
[2019-10-03] MEDS: Pantoprazole Sodium 20 MG Tablet PO (08:43)
[2019-10-03] MEDS: Thiamine Hydrochloride 100 MG Tablet PO (08:43)
[2019-10-03] MEDS: Enoxaparin 40 MG/0.4 ML Syringe SC (08:43)
[2019-10-03] MEDS: Folic Acid 1 MG Tablet PO (08:43)
[2019-10-03] MEDS: Finasteride 5 MG Tablet PO (08:43)
[2019-10-03] MEDS: Aspirin 81 MG TAB.CHEW PO (08:43)
--- NOTE | 2019-10-03 08:43 | PN_ITS ---
Patient Problems: Active and Suspected Problems Alcohol withdrawal (Acute) Subjective: Chief complaint: Follow-up after admission for acute alcohol intoxication/withdrawal admitted for medical stabilization. Patient seen and examined. No acute events overnight. He was able to sleep last night. Anxiety and restlessness is improving. Agitation is getting better. Blood pressure is elevated, afebrile, other vital signs are stable. - Physical Exam Vitals/I&O's: Vital Signs Temp Pulse Resp BP Pulse Ox 99.3 F H 65 18 195/91 H 93 10/03/19 08:31 10/03/19 08:31 10/03/19 08:31 10/03/19 08:31 10/03/19 08:31 Oxygen Delivery Method Room Air Weight: 197 lb 8.547 oz Body Mass Index (BMI) 26.8 Finger Stick Blood Glucose 78 Intake and Output for Last 24 Hours 10/01/19 10/02/19 10/03/19 23:59 23:59 23:59 Intake Total 400 / 400 Output Total 1400 / 1400 Balance -1000 / -1000 General: Alert, Oriented x3, Cooperative, No apparent distress HEENT: Atraumatic, PERRLA, EOMI, Normocephalic Oral: Moist Mucosa, No Gingival or Mucosal Lesions/ Ulcerations Neck: Supple, No JVD, Negative Carotid Bruits, Trachea Midline, Thyroid Normal Size and Texture Lungs: Clear to auscultation, Normal air movement, No rhonchi, No wheeze, No rales, Diminished Cardiovascular: Regular rate, Regular Rhythm, Normal S1, Normal S2, PMI Normal Abdomen: Bowel Sounds Present, Soft, Non Tender, Non-Distended, No Hepato- splenomegaly, Obese Extremities: No clubbing, No cyanosis, Edema - ++ Edema, lymphedema. Skin: No rashes, No breakdown Lymphatic: No Cervical, Supraclavicular, or Inguinal Adenopathy Neurological: Cranial nerves II-XII grossly intact, Motor Exam 5/5 strength throughout Psych/Mental Status: Normal Affect, Appropriate, Alert and oriented to time, place, person, mood and affect Laboratory Results 10/02/19 21:14: WBC 7.3, RBC 4.35 L, Hgb 14.9, Hct 44.5, MCV 102.3 H, MCH 34.3 H , MCHC 33.5, RDW Std Deviation 51.2 H, RDW Coeff of Fredi 13.5, Plt Count 137 L, MPV 10.5, Immature Gran % (Auto) 0.300, Neut % (Auto) 60.1, Lymph % (Auto) 24.1, [place] % (Auto) 14.2 H, Eos % (Auto) 0.8, Baso % (Auto) 0.5, Absolute Neuts (auto) 4.4, Absolute Lymphs (auto) 1.77, Nucleated RBC % 0 10/02/19 21:14: PT Cancelled, INR Cancelled, APTT Cancelled 10/02/19 21:14: Sodium 129 L, Potassium 4.1, Chloride 92 L, Carbon Dioxide 26.0, Anion Gap 11, BUN 6 L, Creatinine 0.65 L, Estim Creat Clear Calc 74.37, Est GFR (MDRD) Af Amer 155, Est GFR (MDRD) Non-Af 128, BUN/Creatinine Ratio 9.2 L, Glucose 74, Calcium 8.4 L, Total Bilirubin 0.60, AST 47 H, ALT 36, Alkaline Phosphatase 130 H, Troponin I < 0.015, Total Protein 8.2, Albumin 3.3, Globulin 4.9 H, Albumin/Globulin Ratio 0.7 L, Lipase 56 L 10/02/19 21:14: Ethyl Alcohol 193.0 10/02/19 21:14: Phosphorus 3.4, Magnesium 1.8 10/02/19 22:20: PT 13.0, INR 1.0, APTT 31.2 10/02/19 22:30: Urine Color Yellow, Urine Clarity Clear, Urine pH 7.0, Ur Specific [place] 1.010, Urine Protein Negative, Urine Glucose (UA) Normal, Urine Ketones Negative, Urine Occult Blood Negative, Urine Nitrite Negative, Urine Bilirubin Negative, Urine Urobilinogen Normal, Ur Leukocyte Esterase Negative, Urine RBC 0 SEEN, Urine WBC 0 SEEN, Ur Squamous Epith Cells 0 SEEN, Urine Bacte pham 0 SEEN, Urine Mucus 0 SEEN 10/03/19 05:34: WBC 5.9, RBC 4.25 L, Hgb 14.5, Hct 43.0, MCV 101.2 H, MCH 34.1 H , MCHC 33.7, RDW Std Deviation 50.1 H, RDW Coeff of Fredi 13.5, Plt Count 130 L, MPV 10.1, Immature Gran % (Auto) 0.200, Neut % (Auto) 63.6, Lymph % (Auto) 19.1, [place] % (Auto) 13.8 H, Eos % (Auto) 2.4, Baso % (Auto) 0.9, Absolute Neuts (auto) 3.7, Absolute Lymphs (auto) 1.12, Nucleated RBC % 0 10/03/19 05:34: Sodium 137, Potassium 3.9, Chloride 102, Carbon Dioxide 28.0, Anion Gap 7, BUN 5 L, Creatinine 0.49 L, Estim Creat Clear Calc 74.37, Est GFR (MDRD) Af Amer 215, Est GFR (MDRD) Non-Af 178, BUN/Creatinine Ratio 10.2, Glucose 82, Calcium 8.3 L, Total Bilirubin 0.70, AST 35, ALT 31, Alkaline Barry sphatase 120 H, Total Protein 7.3, Albumin 2.9 L, Globulin 4.4 H, Albumin/Globulin Ratio 0.7 L Current Medications Acetaminophen (Tylenol) 650 mg PO Q6H PRN PRN PRN Reason: Pain Score 1-10/Temp > 100.7 F Al Hydroxide/Mg Hydroxide (Mylanta Ii) 30 ml PO Q6H PRN PRN PRN Reason: dyspesia Albuterol Sulfate (Ventolin Aerosols) 2.5 mg INHALATION Q2H PRN PRN PRN Reason: dyspnea, wheezing Albuterol/Ipratropium (Duoneb) 3 ml INHALATION Q6HWA.RT SAMI Aspirin (Aspirin, Baby) 81 mg PO DAILY@0800 [facility] Atorvastatin Calcium (Lipitor) 40 mg PO QHS [facility] Bisacodyl (Dulcolax) 10 mg RECTAL DAILY PRN PRN Reason: Constipation Calamine/Phenol (Calmoseptine Ointment) 1 applic TOPICAL 4X/DAY [facility]; Protocol Last Admin: 10/03/19 05:43 Dose: 1 applicatio Documented by: Cholecalciferol (Vitamin D (25mcg)) 2,000 unit PO DAILY [facility] Dicyclomine HCl (Bentyl) 20 mg PO Q6H PRN PRN PRN Reason: abdominal discomfort Divalproex Sodium (Depakote Er) 500 mg PO QHS [facility] Enoxaparin Sodium (Lovenox) 40 mg SC DAILY [facility] Finasteride (Proscar) 5 mg PO DAILY [facility] Folic Acid (Folic Acid) 1 mg PO DAILY@0800 [facility] Gabapentin (Neurontin) 300 mg PO TIDCM [facility] Last Admin: 10/03/19 00:57 Dose: 300 mg Documented by: Glucagon () 1 mg IM .X1 PRN PRN Reason: Hypoglycemia Guaifenesin (Mucinex) 1,200 mg PO BID [facility] Last Admin: 10/03/19 00:57 Dose: 1,200 mg Documented by: Hydralazine HCl (Apresoline Iv) 10 mg IV Q4H PRN PRN PRN Reason: SBP > 160 Hydroxyzine Pamoate (Vistaril Pamoate Capsule) 50 mg PO Q4H PRN PRN PRN Reason: mild anxiety Sodium Chloride () 1,000 mls @ 100 mls/hr IV .Q10H [facility] Stop: 10/03/19 10:33 Last Admin: 10/03/19 00:56 Dose: 100 mls/hr Documented by: Dextrose (Dextrose 10%-Water) 250 mls @ 999 mls/hr IV .Q16M PRN; Protocol PRN Reason: HYPOGLYCEMIA Ibuprofen (Motrin) 600 mg PO Q8H PRN PRN PRN Reason: Pain Score 1-10/10 Loperamide HCl (Imodium) 2 mg PO Q4H PRN PRN PRN Reason: LOOSE STOOLS Melatonin (Melatonin) 3 mg PO QHS [facility] Nicotine (Nicoderm Cq (Pbkc)) 21 mg TRANSDERM. DAILY [facility] Nutritional Formula (Lactose Free) (Ensure Enlive) 120 ml PO 4X/DAY [facility] Nystatin (Mycostatin Powder) 1 applic TOPICAL TID [facility]; Protocol Last Admin: 10/03/19 05:43 Dose: 1 applicatio Documented by: Olanzapine (Zyprexa Zydis) 15 mg PO QHS [facility] Last Admin: 10/03/19 02:15 Dose: 15 mg Documented by: Ondansetron HCl (Zofran) 8 mg PO Q8H PRN PRN PRN Reason: NAUSEA Pantoprazole Sodium (Protonix) 20 mg PO DAILY [facility] Phenobarbital (Phenobarbital) 97.2 mg PO Q4H [facility]; Taper Stop: 10/07/19 08:59 Last Admin: 10/03/19 05:42 Dose: 97.2 mg Documented by: Senna (Senokot) 2 tablet PO QHS PRN PRN PRN Reason: Constipation Sodium Chloride () 10 - 40 ml IV UD PRN PRN Reason: SALINE FLUSH Last Admin: 10/03/19 01:43 Dose: 10 ml Documented by: Tamsulosin HCl (Flomax) 0.4 mg PO QHS [facility] Thiamine HCl (Vitamin B1) 100 mg PO DAILYCM [facility] Tizanidine HCl (Zanaflex) 4 mg PO TID PRN PRN PRN Reason: MUSCLE SPASM Trazodone HCl (Desyrel) 100 mg PO QHS PRN PRN Reason: INSOMNIA Last Admin: 10/03/19 02:15 Dose: 100 mg Documented by: Medical Necessity - Tobacco Use Smoking Status: Current every day smoker - Ongoing 1 pack/day cigarette tobacco usage. Tobacco Use: Cigarettes Assessment/Plan All Active Problems Alcohol withdrawal (Acute) This is a 69 years old male patient presented to the emergency room because of restlessness, agitation and weakness requesting admission for acute alcohol withdrawal for medical stabilization. #1 acute alcohol intoxication/withdrawal: He is on tapering phenobarbital, PRN Bentyl, Imodium, Motrin, Zofran. Blood alcohol level on admission was 193. LFT and CBC, BMP were unremarkable. Blood pressure is elevated, other vital signs are stable. Plan to continue same treatment, continue phenobarbital. #2 physical debility/functional decline/frequent falls: Alcohol dependence and chronic pain syndrome with bilateral leg lymphedema are contributing to his frequent falls and physical debility. Patient lives alone at home. I think patient would be appropriate for placement to retirement facility. PT OT consulted. #3 CAD status post stents: Stable, no complaints. Continue aspirin, statins. #4 COPD: Clinically stable, pulse ox is maintained on room air. Continue DuoNeb every 6 hours and albuterol PRN. #5 uncontrolled hypertension: Blood pressure has been elevated. He has not been on any antihypertensive medications. Acute alcohol withdrawal could be contributing. Plan to start Norvasc, continue IV hydralazine PRN. #6 benign prostatic hypertrophy: Continue Flomax and finasteride. #7 anxiety/depression/bipolar disorder: Stable, continue trazodone, olanzapine and Depakote. #8 chronic hyponatremia: Secondary to chronic alcoholism. Serum sodium today is 137 which is normal. #9 chronic pain syndrome: Continue Zanaflex, gabapentin.. #10 paroxysmal atrial fibrillation: He is in sinus rhythm, rate is controlled. He has been bradycardic sometimes, rate has been in the high 50s up to 60s and 70s. He is not on anticoagulation. #11 GERD: Continue Protonix. #12 DVT prophylaxis: Subcu Lovenox. This note was generated with [employer] dictation software. It may contain incorrect words, spelling, and punctuation that were not noted in checking the note before signing. Inpatient E&M: 22586 Subs Hosp L2
--- NOTE | 2019-10-03 09:06 | ART_ITS ---
Reason For Study: Dysvascular Procedure A bilateral lower extremity continuous wave Doppler with analog waveform analysis,segmental pressures,and ankle brachial indexes without exercise. Left Segmental Pressures Left brachial= 152mmHg. Left posterior tibial artery = 178mmHg. Left dorsalis pedis artery = 172mmHg. Left digit = 101 mmHg. Right Segmental Pressures Right posterior tibial artery = 167mmHg. Right dorsalis pedis artery = 168mmHg. Right digit = 100 mmHg. Indices The right ankle brachial index by the posterior tibial artery is 1.10. The right ankle brachial index by the dorsalis pedis is 1.11. The right digital-brachial index is 0.66. The left ankle brachial index by the posterior tibial artery is 1.17. The left ankle brachial index by the dorsalis pedis is 1.13. The left digital-brachial index is 0.66. Interpretation Summary Ankle brachial indices are normal bilaterally. Doppler waveforms however are biphasic at bilateral DP and PT levels suggesting mild to moderate stenosis. Digital brachial indices bilaterally just breech into the abnormal level. Critical ischemia does not appear to be present Ordering Physician: Ning Palafox Referring Physician: [facility] Performed By: Linda Cueto RDCS/RVT
--- NOTE | 2019-10-03 10:33 | CASEMGMT ---
Social Work Assessment Referral Date: 10/03/2019 Date of Assessment: 10/03/2019 Reason for consult: ETOH, possible SNF Informant: Personal Status: SW met with pt to complete initial assessment. Pt is alert and orientated x3. Pt states that he lives alone in [address]. Pt states his apartment is all one level and has no steps to enter. Pt states that his PCP is [facility] Pt states that he was just at [facility] Thursday but before then it was 4-5 months before pt was at [facility]. Pt states that the [place] had arranged aides to come into the home and also arranged PT/OT to come into the home. Pt states that no aides or PT/OT has been to his home yet. Pt states that he was previously independent at home, able to complete ADLs. Pt states he doesn't drive as he doesn't have a car or license. Pt states he has never been to SNF before. Mental Health History: Pt states that he has history of anxiety and depression. Pt states he is not currently taking any medications. Substance Abuse History: Pt is at [facility] for ETOH withdrawal. Pt confirms that he has history of ETOH use, states that he would drink 12-15 beers daily. Pt agreeable to resources for ETOH use. SW provided pt with resources. SW spoke with pt regarding SNF placement after completing detox as there are concerns regarding pt being able to care for self at home. Pt states he is not sure of his plan at discharge yet as he hasn't thought about it. SW explained to pt that he will be at [facility] for detox for a few days, pt can work with PT/OT and then determine a safe discharge plan for pt. SW did provided pt with list of SNF that accept pt's insurance. SW did explained that if pt was to go to SNF under [facility] he would be limited to where he can go as [facility] is the closest SNF that take [facility] patients. SW explained that pt could be placed under his secondary insurance of [employer] and provided pt with list of SNF that accept [employer]. Pt states that if SNF is needed he would prefer to be placed under his [employer] to he has more choices in SNFs, pefers to stay in [place] for SNF. Plan: TBD pending pt's treatment at [facility]. SW to continue to follow. Verónica Jung MSW, [facility]
[2019-10-03] MEDS: amLODIPine 10 MG Tablet PO (11:49)
--- NOTE | 2019-10-03 14:48 | CASEMGMT ---
TYE Note: pt has VA benefits. Attempted to discuss VA Transfer Form with patient, however pt was recently medicated and is not able to participate in discussion at this time. Will attempt again tomorrow. Saray ADDISON RN ACM
--- NOTE | 2019-10-03 14:55 | CASEMGMT ---
Social Work Note Per admissions questions, pt has completed LW and HCPOA but hasn't provided copies to [facility] and not able to bring in copies. Verónica Jung [employer]CUE, TIRE AND TUBE REPAIRER
--- NOTE | 2019-10-03 15:22 | CHAPLAIN ---
patient sleeping and do not disturb sign on door; left calling card
--- NOTE | 2019-10-03 16:12 | PCM.PROGNOTE ---
Patient Problems: Active and Suspected Problems Localized edema (Acute) Other hereditary and idiopathic neuropathies (Acute) Tinea unguium (Acute) Toe pain, right (Acute) Toe pain, left (Acute) Right foot pain (Acute) Loss of balance (Acute) Alcohol withdrawal (Acute) Subjective: HPI: This 69-year-old male with multiple comorbidities seen bedside for bilateral lower extremity pain and cramping with walking and rest. He denies known injury however admits he was recently admitted for alcohol withdrawal. He has some swelling and discoloration to his limbs. He had noninvasive arterial studies completed earlier today. He has rest burning to the feet. He typically receives care at the [facility] and relates he was scheduled to get measured for specialty shoes tomorrow, and now he will need to reschedule that. He is amendable to go to a correction facility to help with rehabilitation, alcohol abuse control, and fall training. He also asked if I could help him trim his long, thick, and painful toenails in which he does not feel safe performing on his own. His nails are painful (moderate) and aggravated with direct pressure. He denies history of lower extremity ulcer or wound formation. He denies redness or odor. Past medical history: Coronary artery disease, hypertension, hyperlipidemia, alcohol abuse with recent withdrawal, failure to thrive, atrial fibrillation, BPH, tobacco user, esophageal stenosis Medications: Reviewed Allergies: Reviewed Review of systems: Denies fever, chill, nausea, vomiting, shortness of breath, chest pain, sore throat, claudication. Additional reported in HPI. - Physical Exam Vitals/I&O's: Vital Signs Temp Pulse Resp BP Pulse Ox 98.4 F 59 L 18 157/55 H 96 10/03/19 13:34 10/03/19 13:34 10/03/19 13:34 10/03/19 13:34 10/03/19 13:34 Oxygen Delivery Method Room Air Weight: 89.6 kg Body Mass Index (BMI) 26.8 Finger Stick Blood Glucose 78 Intake and Output for Last 24 Hours 10/01/19 10/02/19 10/03/19 23:59 23:59 23:59 Intake Total 1960 / 1960 Output Total 1600 / 1600 Balance 360 / 360 General: Alert, Oriented x3, Cooperative Extremities: No cyanosis, Capillary Refill Less than 3 Seconds, No Calf Tenderness - Negative Menjivar signs bilateral, Diminished Peripheral Pulses, Edema - Bilateral lower extremities with hyperpigmentation Skin: - - No open lesions, redness, streaking, bogginess or fluctuance. There is ecchymosis on the right dorsal forefoot that extends onto the fifth, fourth, and third digits. There is no interdigital maceration or necrosis or eschar formation either. His skin is atrophic and hairless bilateral lower extremities Musculoskeletal: Tenderness - Tenderness on palpation to edema ankle level superficial to skin bilateral. Pain on palpation to ecchymosis area of dorsal right foot and digits. No skin tenting. Active range of motion of the digits and ankles. Neurological: Sensory exam intact to light touch and pain Psych/Mental Status: Normal Affect, Appropriate Laboratory Results 10/02/19 21:14: WBC 7.3, RBC 4.35 L, Hgb 14.9, Hct 44.5, MCV 102.3 H, MCH 34.3 H, MCHC 33.5, RDW Std Deviation 51.2 H, RDW Coeff of Fredi 13.5, Plt Count 137 L, MPV 10.5, Immature Gran % (Auto) 0.300, Neut % (Auto) 60.1, Lymph % (Auto) 24.1, Weld % (Auto) 14.2 H, Eos % (Auto) 0.8, Baso % (Auto) 0.5, Absolute Neuts (auto) 4.4, Absolute Lymphs (auto) 1.77, Nucleated RBC % 0 10/02/19 21:14: PT Cancelled, INR Cancelled, APTT Cancelled 10/02/19 21:14: Sodium 129 L, Potassium 4.1, Chloride 92 L, Carbon Dioxide 26.0, Anion Gap 11, BUN 6 L, Creatinine 0.65 L, Estim Creat Clear Calc 74.37, Est GFR (MDRD) Af Amer 155, Est GFR (MDRD) Non-Af 128, BUN/Creatinine Ratio 9.2 L, Glucose 74, Calcium 8.4 L, Total Bilirubin 0.60, AST 47 H, ALT 36, Alkaline Phosphatase 130 H, Troponin I < 0.015, Total Protein 8.2, Albumin 3.3, Globulin 4.9 H, Albumin/Globulin Ratio 0.7 L, Lipase 56 L 10/02/19 21:14: Ethyl Alcohol 193.0 10/02/19 21:14: Phosphorus 3.4, Magnesium 1.8 10/02/19 22:20: PT 13.0, INR 1.0, APTT 31.2 10/02/19 22:30: Urine Color Yellow, Urine Clarity Clear, Urine pH 7.0, Ur Specific [place] 1.010, Urine Protein Negative, Urine Glucose (UA) Normal, Urine Ketones Negative, Urine Occult Blood Negative, Urine Nitrite Negative, Urine Bilirubin Negative, Urine Urobilinogen Normal, Ur Leukocyte Esterase Negative, Urine RBC 0 SEEN, Urine WBC 0 SEEN, Ur Squamous Epith Cells 0 SEEN, Urine Bacteria 0 SEEN, Urine Mucus 0 SEEN 10/03/19 05:34: WBC 5.9, RBC 4.25 L, Hgb 14.5, Hct 43.0, MCV 101.2 H, MCH 34.1 H, MCHC 33.7, RDW Std Deviation 50.1 H, RDW Coeff of Fredi 13.5, Plt Count 130 L, MPV 10.1, Immature Gran % (Auto) 0.200, Neut % (Auto) 63.6, Lymph % (Auto) 19.1, Weld % (Auto) 13.8 H, Eos % (Auto) 2.4, Baso % (Auto) 0.9, Absolute Neuts (auto) 3.7, Absolute Lymphs (auto) 1.12, Nucleated RBC % 0 10/03/19 05:34: Sodium 137, Potassium 3.9, Chloride 102, Carbon Dioxide 28.0, Anion Gap 7, BUN 5 L, Creatinine 0.49 L, Estim Creat Clear Calc 74.37, Est GFR (MDRD) Af Amer 215, Est GFR (MDRD) Non-Af 178, BUN/Creatinine Ratio 10.2, Glucose 82, Calcium 8.3 L, Total Bilirubin 0.70, AST 35, ALT 31, Alkaline Phosphatase 120 H, Total Protein 7.3, Albumin 2.9 L, Globulin 4.4 H, Albumin/Globulin Ratio 0.7 L Current Medications Acetaminophen (Tylenol) 650 mg PO Q6H PRN PRN PRN Reason: Pain Score 1-10/Temp > 100.7 F Al Hydroxide/Mg Hydroxide (Mylanta Ii) 30 ml PO Q6H PRN PRN PRN Reason: dyspesia Albuterol Sulfate (Ventolin Aerosols) 2.5 mg INHALATION Q2H PRN PRN PRN Reason: dyspnea, wheezing Albuterol/Ipratropium (Duoneb) 3 ml INHALATION Q6HWA.RT ON LICENSE OF [facility] Last Admin: 10/03/19 13:00 Dose: Not Given Documented by: Amlodipine Besylate (Norvasc) 10 mg PO DAILY ON LICENSE OF [facility] Last Admin: 10/03/19 11:49 Dose: 10 mg Documented by: Aspirin (Aspirin, Baby) 81 mg PO DAILY@0800 ON LICENSE OF [facility] Last Admin: 10/03/19 08:43 Dose: 81 mg Documented by: Atorvastatin Calcium (Lipitor) 40 mg PO QHS ON LICENSE OF [facility] Bisacodyl (Dulcolax) 10 mg RECTAL DAILY PRN PRN Reason: Constipation Calamine/Phenol (Calmoseptine Ointment) 1 applic TOPICAL 4X/DAY ON LICENSE OF [facility]; Protocol Last Admin: 10/03/19 13:37 Dose: 1 applicatio Documented by: Cholecalciferol (Vitamin D (25mcg)) 2,000 unit PO DAILY ON LICENSE OF [facility] Last Admin: 10/03/19 08:43 Dose: 2,000 unit Documented by: Dicyclomine HCl (Bentyl) 20 mg PO Q6H PRN PRN PRN Reason: abdominal discomfort Divalproex Sodium (Depakote Er) 500 mg PO QHS ON LICENSE OF [facility] Enoxaparin Sodium (Lovenox) 40 mg SC DAILY ON LICENSE OF [facility] Last Admin: 10/03/19 08:43 Dose: 40 mg Documented by: Finasteride (Proscar) 5 mg PO DAILY ON LICENSE OF [facility] Last Admin: 10/03/19 08:43 Dose: 5 mg Documented by: Folic Acid (Folic Acid) 1 mg PO DAILY@0800 ON LICENSE OF [facility] Last Admin: 10/03/19 08:43 Dose: 1 mg Documented by: Gabapentin (Neurontin) 300 mg PO TIDCM ON LICENSE OF [facility] Last Admin: 10/03/19 11:49 Dose: 300 mg Documented by: Glucagon () 1 mg IM .X1 PRN PRN Reason: Hypoglycemia Guaifenesin (Mucinex) 1,200 mg PO BID ON LICENSE OF [facility] Last Admin: 10/03/19 08:43 Dose: 1,200 mg Documented by: Hydralazine HCl (Apresoline Iv) 10 mg IV Q4H PRN PRN PRN Reason: SBP > 160 Hydroxyzine Pamoate (Vistaril Pamoate Capsule) 50 mg PO Q4H PRN PRN PRN Reason: mild anxiety Dextrose (Dextrose 10%-Water) 250 mls @ 999 mls/hr IV .Q16M PRN; Protocol PRN Reason: HYPOGLYCEMIA Ibuprofen (Motrin) 600 mg PO Q8H PRN PRN PRN Reason: Pain Score 1-10/10 Loperamide HCl (Imodium) 2 mg PO Q4H PRN PRN PRN Reason: LOOSE STOOLS Melatonin (Melatonin) 3 mg PO QHS ON LICENSE OF [facility] Nicotine (Nicoderm Cq (Pbkc)) 21 mg TRANSDERM. DAILY ON LICENSE OF [facility] Last Admin: 10/03/19 08:44 Dose: 21 mg Documented by: Nutritional Formula (Lactose Free) (Ensure Enlive) 120 ml PO 4X/DAY ON LICENSE OF [facility] Last Admin: 10/03/19 13:37 Dose: 120 ml Documented by: Nystatin (Mycostatin Powder) 1 applic TOPICAL TID ON LICENSE OF [facility]; Protocol Last Admin: 10/03/19 13:36 Dose: 1 applicatio Documented by: Olanzapine (Zyprexa Zydis) 15 mg PO QHS ON LICENSE OF [facility] Last Admin: 10/03/19 02:15 Dose: 15 mg Documented by: Ondansetron HCl (Zofran) 8 mg PO Q8H PRN PRN PRN Reason: NAUSEA Pantoprazole Sodium (Protonix) 20 mg PO DAILY ON LICENSE OF [facility] Last Admin: 10/03/19 08:43 Dose: 20 mg Documented by: Phenobarbital (Phenobarbital) 97.2 mg PO Q4H ON LICENSE OF [facility]; Taper Stop: 10/07/19 08:59 Last Admin: 10/03/19 13:37 Dose: 97.2 mg Documented by: Senna (Senokot) 2 tablet PO QHS PRN PRN PRN Reason: Constipation Sodium Chloride () 10 - 40 ml IV UD PRN PRN Reason: SALINE FLUSH Last Admin: 10/03/19 01:43 Dose: 10 ml Documented by: Tamsulosin HCl (Flomax) 0.4 mg PO QHS ON LICENSE OF [facility]iamine [facility] ([facility]) [facility] Last Admin: 10/03/19 08:43 Dose: 100 mg Documented by: Tizanidine HCl (Zanaflex) 4 mg PO TID PRN PRN PRN Reason: MUSCLE SPASM Trazodone HCl (Desyrel) 100 mg PO QHS PRN PRN Reason: INSOMNIA Last Admin: 10/03/19 02:15 Dose: 100 mg Documented by: Medical Necessity - Tobacco Use Smoking Status: Current every day smoker Tobacco Use: Cigarettes Assessment/Plan All Active Problems Localized edema (Acute) Other hereditary and idiopathic neuropathies (Acute) Tinea unguium (Acute) Toe pain, right (Acute) Toe pain, left (Acute) Right foot pain (Acute) Loss of balance (Acute) Alcohol withdrawal (Acute) Right foot pain Lower extremity edema Neuropathy Tinea unguium with toe pain Other comorbidities including alcohol withdrawal Balance loss and fall risk I reviewed and discussed his case. His vital signs are stable and he remains afebrile. He does not have leukocytosis. This patient was reassured there are no local signs of infection noted. I am concerned about the bruising and pain to his right foot. An x-ray was ordered. He will remain nonweightbearing until this is reviewed. Bilateral surgical shoes were ordered. He relates he is not able to wear his current shoes. It is noted he was about to get measured in the outpatient setting for specialty shoes and the shoes he has been wearing are several years old. I recommend that he gets this rescheduled for when he is discharged from the hospital and [facility]. Pending his x-ray results he may also benefit from physical therapy with updated ambulation guidelines, for deconditioning, and fall prevention. His noninvasive vascular studies were reviewed which did not demonstrate any arterial occlusions. I recommend edema control with elevation and by avoiding idle standing or sitting. This can also be better managed with lower sodium intake in his diet. I recommend he wear his compression stockings and Ezra wraps. His edema may be secondary to venous insufficiency, lymphedema, cardiac, or other medical etiology which further work-up in the outpatient setting is recommended. We discussed his rest paresthesias. Seems clinically consistent with neuropathy. I recommend outpatient management such as gabapentin in combination with Metanx. We discussed the potential etiologies of this and he understands alcohol abuse may be a contributing factor. I encouraged him to proceed forward with correction facility placement to help facilitate his recovery. I also debrided his nails with a nail nipper in length and thickness bilateral 1, 2, 3, 4, 5. Verbal consent was obtained and he tolerated this well. This was done without incident. He was advised to follow-up in outpatient setting if needed for this condition. Medical management and DVT prophylaxis per primary team is noted and appreciated. Thank you very much for the consultation. I will continue to follow him after further x-ray review while in house. Please not hesitate to call if you have any questions. Ning Palafox DPM, [facility] [phone]
--- NOTE | 2019-10-03 16:35 | NURSING ---
Sister, Luisa, stopped to get an update on the patient. Sister reports the patient drinks at minimum 15 beers/day. She also reports the patient puts a large amount of salt in the beer that he drinks. Sister states home health workers do not give patient proper hygiene and that they do not come daily. Sister additionally reports that the patient sees Dr. Simons at the [facility] and that he has been working to get the patient a special pair of shoes to wear. Sister updated on [facility] policies. Patient notified that had stopped to see him and he was agreeable to nurse giving the sister medical information. Update provided to sister, left the floor after update.
[2019-10-03] MEDS: Ipratropium/Albuterol Sulfate 3 ML AMPUL.NEB INHALATION (19:28)
--- NOTE | 2019-10-03 20:41 | RAD_ITS ---
STUDY: X-RAY - RIGHT FOOT CLINICAL: Male, 69 years old. Right foot pain with swelling and bruising TECHNIQUE: 3 view(s) of the foot. COMPARISON: None. FINDINGS: Bones are demineralized. Mild deformity of the base of the fourth proximal phalanges, with no displacement or visualized fracture line. No angulation. No additional fracture. Mild narrowing of the first metatarsophalangeal joint, the interphalangeal joint of the great toe, and distal interphalangeal joints of the second through fifth digits. Soft tissues are unremarkable. RAD/Foot min 3 Views IMPRESSION: 1. Question nondisplaced fracture of the fourth proximal phalanx. Correlation with clinical examination is required. 2. Mild degenerative changes. Otherwise unremarkable study. Electronically Signed: Nereyda West MD at 21:40 EDT Tel , Service support ,
[2019-10-03] MEDS: Atorvastatin Calcium 40 MG Tablet PO (21:21)
[2019-10-03] MEDS: Tamsulosin HCl 0.4 MG Capsule PO (21:22)
[2019-10-03] MEDS: Divalproex (ER) 500 MG Tablet PO (21:22)
[2019-10-03] MEDS: MELATONIN 3 MG TABLET PO (21:23)
[2019-10-04] VITALS (9 sets, daily range): BP systolic 114–144; BP diastolic 52–73; PULSE 51–66; RESP 16–18; TEMP 36.5–37.6; O2SAT 92–97
[2019-10-04] MEDS: Phenobarbital 32.4 MG Tablet PO ×6 (01:09→21:48)
[2019-10-04] MEDS: Nystatin Powder 15gm Bottle 1 APPLIC TOPICAL ×3 (05:20→21:49)
[2019-10-04] MEDS: Ipratropium/Albuterol Sulfate 3 ML AMPUL.NEB INHALATION ×3 (07:33→18:56)
--- NOTE | 2019-10-04 08:11 | PN_ITS ---
Patient Problems: Active and Suspected Problems Alcohol withdrawal (Acute) Subjective: Chief complaint: Follow-up after admission for acute alcohol withdrawal. Patient seen and examined. No acute events overnight. Today, he complains of bilateral feet discomfort and pain. Denied redness or injury. Denies fever chills. He slept overnight very well. Denied anxiety or restlessness. No agitation. Reportedly according to the patient's daughter, patient has been using large amount of salt added to his beer at home. Blood pressure significantly improved. Other vital signs are stable. - Physical Exam Vitals/I&O's: Vital Signs Temp Pulse Resp BP Pulse Ox 99.2 F H 58 L 18 139/70 H 92 10/04/19 05:20 10/04/19 05:20 10/04/19 05:20 10/04/19 05:20 10/04/19 05:20 Oxygen Delivery Method Room Air Weight: 197 lb 8.547 oz Body Mass Index (BMI) 26.8 Finger Stick Blood Glucose 78 Intake and Output for Last 24 Hours 10/02/19 10/03/19 10/04/19 23:59 23:59 23:59 Intake Total 2610 / 2610 Output Total 1950 / 1950 200 / 200 Balance 660 / 660 -200 / -200 General: Alert, Oriented x3, Cooperative, No apparent distress HEENT: Atraumatic, PERRLA, EOMI, Normocephalic Oral: Moist Mucosa, No Gingival or Mucosal Lesions/ Ulcerations Neck: Supple, No JVD, Negative Carotid Bruits, Trachea Midline, Thyroid Normal Size and Texture Lungs: Clear to auscultation, Normal air movement, No wheeze, No rales, Diminished, Rhonchi Cardiovascular: Regular rate, Regular Rhythm, Normal S1, Normal S2, PMI Normal, Bradycardic Abdomen: Bowel Sounds Present, Soft, Non Tender, Non-Distended, No Hepato- splenomegaly Extremities: No clubbing, No cyanosis, Edema Skin: No rashes, No breakdown Lymphatic: No Cervical, Supraclavicular, or Inguinal Adenopathy Neurological: Cranial nerves II-XII grossly intact, Neuro grossly intact Psych/Mental Status: Normal Affect, Appropriate, Alert and oriented to time, place, person, mood and affect Current Medications Acetaminophen (Tylenol) 650 mg PO Q6H PRN PRN PRN Reason: Pain Score 1-10/Temp > 100.7 F Al Hydroxide/Mg Hydroxide (Mylanta Ii) 30 ml PO Q6H PRN PRN PRN Reason: dyspesia Albuterol Sulfate (Ventolin Aerosols) 2.5 mg INHALATION Q2H PRN PRN PRN Reason: dyspnea, wheezing Albuterol/Ipratropium (Duoneb) 3 ml INHALATION Q6HWA.RT [facility] Last Admin: 10/04/19 07:33 Dose: 3 ml Documented by: Amlodipine Besylate (Norvasc) 10 mg PO DAILY [facility] Last Admin: 10/03/19 11:49 Dose: 10 mg Documented by: Aspirin (Aspirin, Baby) 81 mg PO DAILY@0800 [facility] Last Admin: 10/03/19 08:43 Dose: 81 mg Documented by: Atorvastatin Calcium (Lipitor) 40 mg PO QHS [facility] Last Admin: 10/03/19 21:21 Dose: 40 mg Documented by: Bisacodyl (Dulcolax) 10 mg RECTAL DAILY PRN PRN Reason: Constipation Calamine/Phenol (Calmoseptine Ointment) 1 applic TOPICAL 4X/DAY [facility]; Protocol Last Admin: 10/03/19 21:19 Dose: 1 applicatio Documented by: Cholecalciferol (Vitamin D (25mcg)) 2,000 unit PO DAILY [facility] Last Admin: 10/03/19 08:43 Dose: 2,000 unit Documented by: Dicyclomine HCl (Bentyl) 20 mg PO Q6H PRN PRN PRN Reason: abdominal discomfort Divalproex Sodium (Depakote Er) 500 mg PO QHS [facility] Last Admin: 10/03/19 21:22 Dose: 500 mg Documented by: Enoxaparin Sodium (Lovenox) 40 mg SC DAILY [facility] Last Admin: 10/03/19 08:43 Dose: 40 mg Documented by: Finasteride (Proscar) 5 mg PO DAILY [facility] Last Admin: 10/03/19 08:43 Dose: 5 mg Documented by: Folic Acid (Folic Acid) 1 mg PO DAILY@0800 [facility] Last Admin: 10/03/19 08:43 Dose: 1 mg Documented by: Gabapentin (Neurontin) 300 mg PO TIDCM [facility] Last Admin: 10/03/19 17:27 Dose: 300 mg Documented by: Glucagon () 1 mg IM .X1 PRN PRN Reason: Hypoglycemia Guaifenesin (Mucinex) 1,200 mg PO BID [facility] Last Admin: 10/03/19 21:19 Dose: 1,200 mg Documented by: Hydralazine HCl (Apresoline Iv) 10 mg IV Q4H PRN PRN PRN Reason: SBP > 160 Hydroxyzine Pamoate (Vistaril Pamoate Capsule) 50 mg PO Q4H PRN PRN PRN Reason: mild anxiety Dextrose (Dextrose 10%-Water) 250 mls @ 999 mls/hr IV .Q16M PRN; Protocol PRN Reason: HYPOGLYCEMIA Ibuprofen (Motrin) 600 mg PO Q8H PRN PRN PRN Reason: Pain Score 1-10/10 Loperamide HCl (Imodium) 2 mg PO Q4H PRN PRN PRN Reason: LOOSE STOOLS Melatonin (Melatonin) 3 mg PO QHS [facility] Last Admin: 10/03/19 21:23 Dose: 3 mg Documented by: Nicotine (Nicoderm Cq (Pbkc)) 21 mg TRANSDERM. DAILY [facility] Last Admin: 10/03/19 08:44 Dose: 21 mg Documented by: Nutritional Formula (Lactose Free) (Ensure Enlive) 120 ml PO 4X/DAY [facility] Last Admin: 10/03/19 21:20 Dose: 120 ml Documented by: Nystatin (Mycostatin Powder) 1 applic TOPICAL TID [facility]; Protocol Last Admin: 10/04/19 05:20 Dose: 1 applicatio Documented by: Olanzapine (Zyprexa Zydis) 15 mg PO QHS [facility] Last Admin: 10/03/19 21:21 Dose: 15 mg Documented by: Ondansetron HCl (Zofran) 8 mg PO Q8H PRN PRN PRN Reason: NAUSEA Pantoprazole Sodium (Protonix) 20 mg PO DAILY [facility] Last Admin: 10/03/19 08:43 Dose: 20 mg Documented by: Phenobarbital (Phenobarbital) 97.2 mg PO Q4H [facility]; Taper Stop: 10/07/19 08:59 Last Admin: 10/04/19 05:20 Dose: 97.2 mg Documented by: Senna (Senokot) 2 tablet PO QHS PRN PRN PRN Reason: Constipation Sodium Chloride () 10 - 40 ml IV UD PRN PRN Reason: SALINE FLUSH Last Admin: 10/03/19 01:43 Dose: 10 ml Documented by: Tamsulosin HCl (Flomax) 0.4 mg PO QHS [facility] Last Admin: 10/03/19 21:22 Dose: 0.4 mg Documented by: [facility] ([facility]) [facility] Admin: 10/03/19 08:43 Dose: 100 mg Documented by: Tizanidine HCl (Zanaflex) 4 mg PO TID PRN PRN PRN Reason: MUSCLE SPASM Trazodone HCl (Desyrel) 100 mg PO QHS PRN PRN Reason: INSOMNIA Last Admin: 10/03/19 21:26 Dose: 100 mg Documented by: Medical Necessity - Tobacco Use Smoking Status: Current every day smoker Tobacco Use: Cigarettes Assessment/Plan All Active Problems Loss of balance (Acute) Right foot pain (Acute) Toe pain, left (Acute) Toe pain, right (Acute) Tinea unguium (Acute) Other hereditary and idiopathic neuropathies (Acute) Localized edema (Acute) Alcohol withdrawal (Acute) This is a 69 years old male patient presented to the emergency room because of restlessness, agitation and weakness requesting admission for acute alcohol wit [facility] for medical stabilization. #1 acute alcohol intoxication/withdrawal: Remained on tapering phenobarbital, PRN Bentyl, Imodium, Motrin, Zofran. Symptom has been improving, slept well overnight.. LFT and CBC, BMP were unremarkable. Blood pressure under better control. Plan to continue same treatment, check TSH, continue phenobarbital, patient will need placement to jail facility. #2 physical debility/functional decline/frequent falls: Alcohol dependence and chronic pain syndrome with bilateral leg lymphedema are contributing to his frequent falls and physical debility. Patient lives alone at home. Probably patient will need placement to jail facility. PT OT consulted. #3 CAD status post stents: Stable, no complaints. Continue aspirin, statins. #4 COPD: Clinically stable, pulse ox is maintained on room air. Continue DuoNeb every 6 hours and albuterol PRN. #5 uncontrolled hypertension: Patient was started on Norvasc yesterday. Blood pressure significantly improved today. Other vital signs are stable. Plan to continue Norvasc and IV hydralazine PRN. #6 benign prostatic hypertrophy: Stable, continue Flomax and finasteride. #7 anxiety/depression/bipolar disorder: Stable, continue trazodone, olanzapine and Depakote. #8 chronic hyponatremia: Secondary to chronic alcoholism. Serum sodium yesterday is 137 which is normal. #9 chronic pain syndrome: Continue Zanaflex, gabapentin.. #10 paroxysmal atrial fibrillation: He is in sinus rhythm, rate is controlled. He has been bradycardic sometimes, rate has been in the high 50s up to 60s. He is not on anticoagulation. #11 GERD: Continue Protonix. #12 DVT prophylaxis: Subcu Lovenox. This note was generated with [employer] dictation software. It may contain incorrect words, spelling, and punctuation that were not noted in checking the note before signing. Inpatient E&M: 68550 Subs Hosp L2
[2019-10-04] MEDS: amLODIPine 10 MG Tablet PO (08:34)
[2019-10-04] MEDS: Gabapentin 300 MG Capsule PO ×3 (08:34→17:06)
[2019-10-04] MEDS: Finasteride 5 MG Tablet PO (08:34)
[2019-10-04] MEDS: Pantoprazole Sodium 20 MG Tablet PO (08:34)
[2019-10-04] MEDS: Folic Acid 1 MG Tablet PO (08:34)
[2019-10-04] MEDS: Thiamine Hydrochloride 100 MG Tablet PO (08:34)
[2019-10-04] MEDS: guaiFENesin 1,200 MG Tablet 1200 MG PO ×2 (08:34→21:49)
[2019-10-04] MEDS: Enoxaparin 40 MG/0.4 ML Syringe SC (08:35)
[2019-10-04] MEDS: Menthol/Lanolin/Calamine/Znox 113 GM Tube 1 APPLIC TOPICAL ×4 (08:35→21:48)
[2019-10-04] MEDS: Aspirin 81 MG TAB.CHEW PO (08:35)
[2019-10-04] MEDS: 0.9% Saline Lock 10 ML Syringe IV (08:36)
--- NOTE | 2019-10-04 08:55 | NURSING ---
Pt was c/o discomfort with the ELADIO wrap on the right lower leg. removed ELADIO wraps. right foot still quite bruised. applied NEHAL hose in place of the ELADIO wraps. pt states the hose feel much better. pt denies further needs at this time.
--- NOTE | 2019-10-04 10:00 | CASEMGMT ---
TYE HUGO Note: Attempted to discuss [facility] Transfer Form with patient, however pt is sleeping at this time/not disturbed. Choco ADDISON RN CM
[2019-10-04 10:21] LABS: Thyroid Stim Hormone (TSH) 0.81 uIU/mL (0.358-3.74)
--- NOTE | 2019-10-04 10:30 | CASEMGMT ---
Social Work Note AMY received call from pt's sister Hannah requesting update. Hannah is listed on pt's demographics. AMY spoke with Hannah. Hannah states she has pt's wallet and ID and was asking if she needed to take documents to SNF. AMY updated Hannah that pt hasn't been agreeable to SNF yet at this time so this worker is not sure what pt's discharge plans will be. Hannah states all the pt does at home is sit in a chair, drink and smoke cigarettes, and then will get up to go to the bathroom and then get up to go to his bedroom. Hannah states she feels pt would benefit from going to SNF where pt can get therapy. Hannah states pt is not able to cut his own toenails and she makes meals for him. Hannah states Dr. Simons with the [facility] linked pt with with aides in the home and with therapy in the home. Hannah states if pt is agreeable to SNF she would prefer for pt to go to either [facility] or [facility] but states she doesn't want pt to go to [facility]. AMY updated Hannah that this worker can relay Hannah's suggestions but pt does have the right to chose which SNF himself he wants to go to, if he is agreeable to SNF. Hannah states understanding, states she would just like to be updated when pt is discharged. SW to meet with pt again today to discuss discharge plans. AMY did receive an email from Julian White stating she spoke with Sherry at the [facility] and pt is not [facility] with the [facility] and if SNF is needed [facility] will not cover SNF for pt. Plan: CONCEPCIÓN Jung ELEVATOR INSTALLER APPRENTICE, HEAT CURER
--- NOTE | 2019-10-04 10:39 | CASEMGMT ---
Social Work Note Pt is RAMP pt. SW spoke with Charge Nurse. Mel JASSOW from [facility] is out sick today but will be calling pt to complete assessment and discuss discharge plans for pt. SW to continue to follow to assist with discharge planning with [facility]. Verónica Jung SPORTS INSTRUCTOR, COMMUNICATION TECHNICIAN
--- NOTE | 2019-10-04 14:04 | CASEMGMT ---
Social Work Note AMY met with pt to confirm discharge plans. SW updated pt that his sister Hannah called in today and wanted update. SW updated pt that Hannah is wanting pt to go to SNF at discharge for short term rehabilitation and prefers either [facility] or [facility]. Pt agreeable to SNF and is agreeable to [facility] or [facility]. AMY placed a call to [facility] and spoke with Jaime REYES and provided referral. AMY faxed referral to [facility]. Plan: SNF pending acceptance and pre-cert Verónica Jung ELECTRIC DRILL OPERATOR, PHARMACIST IN CHARGE OWNER
--- NOTE | 2019-10-04 16:00 | CHAPLAIN ---
Type of Pastoral Visit _x__ Initial Visit ___ Follow-up Visit ___ On-call Visit ___ General Patient Visit ___ Spiritual Assessment ___ Family Conference ___ Bereavement ___ Rapid Response ___ Code Blue ___ Other (describe below) Pastoral Care Referral From _x__ Patient ___ Family ___ Nurse ___ Physician ___ Furnace Reliner ___ Fur Comber ___ Other (describe below) Sacrament/Intervention _x__ Active listening ___ Anointing ___ Christian ___ Bereavement ___ Communion _x__ Ruth exploration ___ _x__ Life review _x__ Prayer ___ Reconciliation ___ Sacrament of Sick _x__ Supportive presence ___ Wedding ___ Other (describe below) Pastoral Comments
--- NOTE | 2019-10-04 16:10 | CASEMGMT ---
Social Work Note SW received call from Cait at [facility] stating they are able to accept pt and will submit for pre-cert. Plan: [facility] pending pre-cert Verónica Jung GAGE MAKER, PRODUCT MARKETING MANAGER
[2019-10-04] MEDS: hydrOXYzine PAM 25 MG Capsule 50 MG PO (20:10)
[2019-10-04] MEDS: Divalproex (ER) 500 MG Tablet PO (21:48)
[2019-10-04] MEDS: Atorvastatin Calcium 40 MG Tablet PO (21:49)
[2019-10-04] MEDS: Tamsulosin HCl 0.4 MG Capsule PO (21:49)
[2019-10-04] MEDS: MELATONIN 3 MG TABLET PO (21:50)
[2019-10-04] MEDS: OLANZapine 5 MG/TAB TAB.RAPDIS 15 MG PO (21:50)
[2019-10-05] VITALS (8 sets, daily range): BP systolic 129–151; BP diastolic 58–83; PULSE 48–68; RESP 18–20; TEMP 36.4–37.1; O2SAT 94–99
[2019-10-05] MEDS: Phenobarbital 32.4 MG Tablet PO ×5 (01:15→21:53)
[2019-10-05] MEDS: Nystatin Powder 15gm Bottle 1 APPLIC TOPICAL ×3 (05:45→21:58)
[2019-10-05] MEDS: hydrOXYzine PAM 25 MG Capsule 50 MG PO (05:49)
[2019-10-05] MEDS: Gabapentin 300 MG Capsule PO ×3 (09:17→18:03)
[2019-10-05] MEDS: Folic Acid 1 MG Tablet PO (09:18)
[2019-10-05] MEDS: Thiamine Hydrochloride 100 MG Tablet PO (09:18)
[2019-10-05] MEDS: Aspirin 81 MG TAB.CHEW PO (09:18)
[2019-10-05] MEDS: Menthol/Lanolin/Calamine/Znox 113 GM Tube 1 APPLIC TOPICAL ×3 (09:18→21:56)
[2019-10-05] MEDS: Enoxaparin 40 MG/0.4 ML Syringe SC (09:18)
[2019-10-05] MEDS: Pantoprazole Sodium 20 MG Tablet PO (09:18)
[2019-10-05] MEDS: amLODIPine 10 MG Tablet PO (09:19)
[2019-10-05] MEDS: guaiFENesin 1,200 MG Tablet 1200 MG PO ×2 (09:19→21:59)
[2019-10-05] MEDS: Finasteride 5 MG Tablet PO (09:24)
[2019-10-05] MEDS: Ibuprofen 600 MG Tablet PO (09:31)
--- NOTE | 2019-10-05 09:48 | PCM.PROGNOTE ---
Patient Problems: Active and Suspected Problems Alcohol withdrawal (Acute) Subjective: This 69-year-old male with multiple comorbidities who was admitted for alcohol withdrawal was seen bedside this morning for follow-up of right foot pain. He did obtain an x-ray. He denies obtaining or getting fitted for surgical shoe yet. He was resting during rounding visit. He was later called via phone and relates he still has pain located near his forefoot and fourth toe. He relates his swelling has decreased. He denies new injuries or redness. He is awaiting senior living placement. - Physical Exam Vitals/I&O's: Vital Signs Temp Pulse Resp BP Pulse Ox 98.2 F 54 L 18 132/58 H 97 10/05/19 09:15 10/05/19 09:15 10/05/19 09:15 10/05/19 09:15 10/05/19 09:15 Oxygen Delivery Method Room Air Weight: 89.6 kg Body Mass Index (BMI) 26.8 Finger Stick Blood Glucose 78 Intake and Output for Last 24 Hours 10/03/19 10/04/19 10/05/19 23:59 23:59 23:59 Intake Total 2610 / 2610 600 / 600 Output Total 1950 / 1950 200 / 400 700 / 700 Balance 660 / 660 -200 / -40 -100 / -100 General: Lethargic HEENT: Atraumatic Extremities: No cyanosis, - - Bilateral Ezra wraps intact without drainage or adjacent redness or streaking or odor Skin: - - No open lesions Musculoskeletal: Muscle Wasting, - - Pain response to palpation right forefoot near the fourth digit Psych/Mental Status: Appropriate Laboratory Results 10/03/19 05:35: TSH 0.81 Current Medications Acetaminophen (Tylenol) 650 mg PO Q6H PRN PRN PRN Reason: Pain Score 1-10/Temp > 100.7 F Al Hydroxide/Mg Hydroxide (Mylanta Ii) 30 ml PO Q6H PRN PRN PRN Reason: dyspesia Albuterol Sulfate (Ventolin Aerosols) 2.5 mg INHALATION Q2H PRN PRN PRN Reason: dyspnea, wheezing Albuterol/Ipratropium (Duoneb) 3 ml INHALATION Q6HWA.RT [facility] Last Admin: 10/05/19 07:30 Dose: Not Given Documented by: Amlodipine Besylate (Norvasc) 10 mg PO DAILY [facility] Last Admin: 10/05/19 09:19 Dose: 10 mg Documented by: Aspirin (Aspirin, Baby) 81 mg PO DAILY@0800 [facility] Last Admin: 10/05/19 09:18 Dose: 81 mg Documented by: Atorvastatin Calcium (Lipitor) 40 mg PO QHS [facility] Last Admin: 10/04/19 21:49 Dose: 40 mg Documented by: Bisacodyl (Dulcolax) 10 mg RECTAL DAILY PRN PRN Reason: Constipation Calamine/Phenol (Calmoseptine Ointment) 1 applic TOPICAL 4X/DAY [facility]; Protocol Last Admin: 10/05/19 09:18 Dose: 1 applicatio Documented by: Cholecalciferol (Vitamin D (25mcg)) 2,000 unit PO DAILY [facility] Last Admin: 10/05/19 09:18 Dose: 2,000 unit Documented by: Dicyclomine HCl (Bentyl) 20 mg PO Q6H PRN PRN PRN Reason: abdominal discomfort Divalproex Sodium (Depakote Er) 500 mg PO QHS [facility] Last Admin: 10/04/19 21:48 Dose: 500 mg Documented by: Enoxaparin Sodium (Lovenox) 40 mg SC DAILY [facility] Last Admin: 10/05/19 09:18 Dose: 40 mg Documented by: Finasteride (Proscar) 5 mg PO DAILY [facility] Last Admin: 10/05/19 09:24 Dose: 5 mg Documented by: Folic Acid (Folic Acid) 1 mg PO DAILY@0800 [facility] Last Admin: 10/05/19 09:18 Dose: 1 mg Documented by: Gabapentin (Neurontin) 300 mg PO TIDCM [facility] Last Admin: 10/05/19 09:17 Dose: 300 mg Documented by: Glucagon () 1 mg IM .X1 PRN PRN Reason: Hypoglycemia Guaifenesin (Mucinex) 1,200 mg PO BID [facility] Last Admin: 10/05/19 09:19 Dose: 1,200 mg Documented by: Hydralazine HCl (Apresoline Iv) 10 mg IV Q4H PRN PRN PRN Reason: SBP > 160 Hydroxyzine Pamoate (Vistaril Pamoate Capsule) 50 mg PO Q4H PRN PRN PRN Reason: mild anxiety Last Admin: 10/05/19 05:49 Dose: 50 mg Documented by: Dextrose (Dextrose 10%-Water) 250 mls @ 999 mls/hr IV .Q16M PRN; Protocol PRN Reason: HYPOGLYCEMIA Ibuprofen (Motrin) 600 mg PO Q8H PRN PRN PRN Reason: Pain Score 1-10/10 Last Admin: 10/05/19 09:31 Dose: 600 mg Documented by: Loperamide HCl (Imodium) 2 mg PO Q4H PRN PRN PRN Reason: LOOSE STOOLS Melatonin (Melatonin) 3 mg PO QHS [facility] Last Admin: 10/04/19 21:50 Dose: 3 mg Documented by: Nicotine (Nicoderm Cq (Pbkc)) 21 mg TRANSDERM. DAILY [facility] Last Admin: 10/05/19 09:19 Dose: 21 mg Documented by: Nutritional Formula (Lactose Free) (Ensure Enlive) 120 ml PO 4X/DAY [facility] Last Admin: 10/05/19 09:24 Dose: 120 ml Documented by: Nystatin (Mycostatin Powder) 1 applic TOPICAL TID [facility]; Protocol Last Admin: 10/05/19 05:45 Dose: 1 applicatio Documented by: Olanzapine (Zyprexa Zydis) 15 mg PO QHS [facility] Last Admin: 10/04/19 21:50 Dose: 15 mg Documented by: Ondansetron HCl (Zofran) 8 mg PO Q8H PRN PRN PRN Reason: NAUSEA Pantoprazole Sodium (Protonix) 20 mg PO DAILY [facility] Last Admin: 10/05/19 09:18 Dose: 20 mg Documented by: Phenobarbital (Phenobarbital) 64.8 mg PO Q6H [facility]; Taper Stop: 10/07/19 08:59 Last Admin: 10/05/19 09:24 Dose: 64.8 mg Documented by: Senna (Senokot) 2 tablet PO QHS PRN PRN PRN Reason: Constipation Sodium Chloride () 10 - 40 ml IV UD PRN PRN Reason: SALINE FLUSH Last Admin: 10/04/19 08:36 Dose: 10 ml Documented by: Tamsulosin HCl (Flomax) 0.4 mg PO QHS [facility] Last Admin: 10/04/19 21:49 Dose: 0.4 mg Documented by: Thiamine HCl ([facility]itamin B1) [facility] Last Admin: 10/05/19 09:18 Dose: 100 mg Documented by: Tizanidine HCl (Zanaflex) 4 mg PO TID PRN PRN PRN Reason: MUSCLE SPASM Trazodone HCl (Desyrel) 100 mg PO QHS PRN PRN Reason: INSOMNIA Last Admin: 10/03/19 21:26 Dose: 100 mg Documented by: Medical Necessity - Tobacco Use Smoking Status: Current every day smoker Tobacco Use: Cigarettes Assessment/Plan All Active Problems Loss of balance (Acute) Right foot pain (Acute) Toe pain, left (Acute) Toe pain, right (Acute) Tinea unguium (Acute) Other hereditary and idiopathic neuropathies (Acute) Localized edema (Acute) Alcohol withdrawal (Acute) Right fourth toe proximal phalanx fracture suspected Right foot pain Lower extremity edema Neuropathy Other comorbidities including alcohol withdrawal Balance loss and fall risk I reviewed and discussed his case. His vital signs are stable and he remains afebrile. His foot x-ray was reviewed with questionable nondisplaced proximal phalanx base fracture of the fourth toe. This does correlate with his clinical bruising and pain. I recommend he wears a surgical shoe and places weight on the heel. It is okay for him to use an assistive device if needed. These orders have already been placed. We discussed the anticipated length of time for fracture healing. I recommend he follows up in the outpatient setting in 3 to 4 weeks at [facility]. His noninvasive vascular studies were reviewed which did not demonstrate any arterial occlusions. I recommend edema control with elevation and by avoiding idle standing or sitting. This can also be better managed with lower sodium intake in his diet. I recommend he wear his compression stockings and Ezra wraps. His edema may be secondary to venous insufficiency, lymphedema, cardiac, or other medical etiology which further work-up in the outpatient setting is recommended. This has been improving since his hospital admission. Medical management and DVT prophylaxis per primary team is noted and appreciated. I recommend he follows up in the outpatient setting at this time. Please not hesitate to call if you have any questions. Ning Palafox DPM, [facility] [phone]
--- NOTE | 2019-10-05 09:54 | PCM.PROGNOTE ---
Patient Problems: Active and Suspected Problems Alcohol withdrawal (Acute) Subjective: Chief complaint: Follow-up after admission for acute alcohol withdrawal and questionable nondisplaced fracture of the fourth proximal phalanx of the right foot. Patient seen and examined. No acute events overnight. Again today complaining of right foot pain. Craving for alcohol is getting better. Denied any other complaints. His vital signs are stable. - Physical Exam Vitals/I&O's: Vital Signs Temp Pulse Resp BP Pulse Ox 98.2 F 54 L 18 132/58 H 97 10/05/19 09:15 10/05/19 09:15 10/05/19 09:15 10/05/19 09:15 10/05/19 09:15 Oxygen Delivery Method Room Air Weight: 197 lb 8.547 oz Body Mass Index (BMI) 26.8 Finger Stick Blood Glucose 78 Intake and Output for Last 24 Hours 10/03/19 10/04/19 10/05/19 23:59 23:59 23:59 Intake Total 2610 / 2610 600 / 600 Output Total 1950 / 1950 200 / 400 700 / 700 Balance 660 / 660 -200 / -40 -100 / -100 General: Alert, Oriented x3, Cooperative, No apparent distress HEENT: Atraumatic, PERRLA, EOMI, Normocephalic Oral: Moist Mucosa, No Gingival or Mucosal Lesions/ Ulcerations Neck: Supple, No JVD, Negative Carotid Bruits, Thyroid Normal Size and Texture Lungs: Clear to auscultation, Normal air movement, No rhonchi, No wheeze, No rales, Diminished Cardiovascular: Regular rate, Regular Rhythm, Normal S1, Normal S2, PMI Normal Abdomen: Bowel Sounds Present, Soft, Non Tender, Non-Distended, No Hepato-splenomegaly Extremities: No clubbing, No cyanosis, Edema Skin: No rashes, No breakdown Lymphatic: No Cervical, Supraclavicular, or Inguinal Adenopathy Neurological: Cranial nerves II-XII grossly intact, Neuro grossly intact Psych/Mental Status: Normal Affect, Appropriate, Alert and oriented to time, place, person, mood and affect Laboratory Results 10/03/19 05:35: TSH 0.81 Current Medications Acetaminophen (Tylenol) 650 mg PO Q6H PRN PRN PRN Reason: Pain Score 1-10/Temp > 100.7 F Al Hydroxide/Mg Hydroxide (Mylanta Ii) 30 ml PO Q6H PRN PRN PRN Reason: dyspesia Albuterol Sulfate (Ventolin Aerosols) 2.5 mg INHALATION Q2H PRN PRN PRN Reason: dyspnea, wheezing Albuterol/Ipratropium (Duoneb) 3 ml INHALATION Q6HWA.RT [facility] Last Admin: 10/05/19 07:30 Dose: Not Given Documented by: Amlodipine Besylate (Norvasc) 10 mg PO DAILY [facility] Last Admin: 10/05/19 09:19 Dose: 10 mg Documented by: Aspirin (Aspirin, Baby) 81 mg PO DAILY@0800 [facility] Last Admin: 10/05/19 09:18 Dose: 81 mg Documented by: Atorvastatin Calcium (Lipitor) 40 mg PO QHS [facility] Last Admin: 10/04/19 21:49 Dose: 40 mg Documented by: Bisacodyl (Dulcolax) 10 mg RECTAL DAILY PRN PRN Reason: Constipation Calamine/Phenol (Calmoseptine Ointment) 1 applic TOPICAL 4X/DAY [facility]; Protocol Last Admin: 10/05/19 09:18 Dose: 1 applicatio Documented by: Cholecalciferol (Vitamin D (25mcg)) 2,000 unit PO DAILY [facility] Last Admin: 10/05/19 09:18 Dose: 2,000 unit Documented by: Dicyclomine HCl (Bentyl) 20 mg PO Q6H PRN PRN PRN Reason: abdominal discomfort Divalproex Sodium (Depakote Er) 500 mg PO QHS [facility] Last Admin: 10/04/19 21:48 Dose: 500 mg Documented by: Enoxaparin Sodium (Lovenox) 40 mg SC DAILY [facility] Last Admin: 10/05/19 09:18 Dose: 40 mg Documented by: Finasteride (Proscar) 5 mg PO DAILY [facility] Last Admin: 10/05/19 09:24 Dose: 5 mg Documented by: Folic Acid (Folic Acid) 1 mg PO DAILY@0800 [facility] Last Admin: 10/05/19 09:18 Dose: 1 mg Documented by: Gabapentin (Neurontin) 300 mg PO TIDCM [facility] Last Admin: 10/05/19 09:17 Dose: 300 mg Documented by: Glucagon () 1 mg IM .X1 PRN PRN Reason: Hypoglycemia Guaifenesin (Mucinex) 1,200 mg PO BID [facility] Last Admin: 10/05/19 09:19 Dose: 1,200 mg Documented by: Hydralazine HCl (Apresoline Iv) 10 mg IV Q4H PRN PRN PRN Reason: SBP > 160 Hydroxyzine Pamoate (Vistaril Pamoate Capsule) 50 mg PO Q4H PRN PRN PRN Reason: mild anxiety Last Admin: 10/05/19 05:49 Dose: 50 mg Documented by: Dextrose (Dextrose 10%-Water) 250 mls @ 999 mls/hr IV .Q16M PRN; Protocol PRN Reason: HYPOGLYCEMIA Ibuprofen (Motrin) 600 mg PO Q8H PRN PRN PRN Reason: Pain Score 1-10/10 Last Admin: 10/05/19 09:31 Dose: 600 mg Documented by: Loperamide HCl (Imodium) 2 mg PO Q4H PRN PRN PRN Reason: LOOSE STOOLS Melatonin (Melatonin) 3 mg PO QHS [facility] Last Admin: 10/04/19 21:50 Dose: 3 mg Documented by: Nicotine (Nicoderm Cq (Pbkc)) 21 mg TRANSDERM. DAILY [facility] Last Admin: 10/05/19 09:19 Dose: 21 mg Documented by: Nutritional Formula (Lactose Free) (Ensure Enlive) 120 ml PO 4X/DAY [facility] Last Admin: 10/05/19 09:24 Dose: 120 ml Documented by: Nystatin (Mycostatin Powder) 1 applic TOPICAL TID [facility]; Protocol Last Admin: 10/05/19 05:45 Dose: 1 applicatio Documented by: Olanzapine (Zyprexa Zydis) 15 mg PO QHS [facility] Last Admin: 10/04/19 21:50 Dose: 15 mg Documented by: Ondansetron HCl (Zofran) 8 mg PO Q8H PRN PRN PRN Reason: NAUSEA Pantoprazole Sodium (Protonix) 20 mg PO DAILY [facility] Last Admin: 10/05/19 09:18 Dose: 20 mg Documented by: Phenobarbital (Phenobarbital) 64.8 mg PO Q6H [facility]; Taper Stop: 10/07/19 08:59 Last Admin: 10/05/19 09:24 Dose: 64.8 mg Documented by: Senna (Senokot) 2 tablet PO QHS PRN PRN PRN Reason: Constipation Sodium Chloride () 10 - 40 ml IV UD PRN PRN Reason: SALINE FLUSH Last Admin: 10/04/19 08:36 Dose: 10 ml Documented by: Tamsulosin HCl (Flomax) 0.4 mg PO QHS [facility] Last Admin: 10/04/19 21:49 Dose: 0.4 mg Documented by: Thiamine HCl (Vitamin B1) 100 mg PO DAILYCM [facility] Last Admin: 10/05/19 09:18 Dose: 100 mg Documented by: Tizanidine HCl (Zanaflex) 4 mg PO TID PRN PRN PRN Reason: MUSCLE SPASM Trazodone HCl (Desyrel) 100 mg PO QHS PRN PRN Reason: INSOMNIA Last Admin: 10/03/19 21:26 Dose: 100 mg Documented by: Medical Necessity - Tobacco Use Smoking Status: Current every day smoker Tobacco Use: Cigarettes Assessment/Plan All Active Problems Loss of balance (Acute) Right foot pain (Acute) Toe pain, left (Acute) Toe pain, right (Acute) Tinea unguium (Acute) Other hereditary and idiopathic neuropathies (Acute) Localized edema (Acute) Alcohol withdrawal (Acute) This is a 69 years old male patient presented to the emergency room because of restlessness, agitation and weakness requesting admission for acute alcohol withdrawal for medical stabilization. He was found to have questionable nondisplaced fracture of the fourth proximal phalanx of the right foot. #1 acute alcohol intoxication/withdrawal: He is on day 3 of tapering phenobarbital, PRN Bentyl, Imodium, Motrin, Zofran. Symptoms continue to improve, less craving. LFT and CBC, BMP were unremarkable. Blood pressure under better control. TSH was normal. Plan to continue same treatment, placement to [facility] facility likely tomorrow. #2 questionable nondisplaced fracture of the fourth proximal phalanx of the right foot: This was discovered on x-ray of the right foot done for right foot pain. Podiatry medicine on the case, recommended heel weightbearing with surgical shoe, no indication for surgery. #3 physical debility/functional decline/frequent falls: Alcohol dependence and chronic pain syndrome with bilateral leg lymphedema are contributing to his frequent falls and physical debility. Plan for placement to [facility] facility. #4 CAD status post stents: Stable, no complaints. Continue aspirin, statins. #5 COPD: Clinically stable, pulse ox is maintained on room air. Continue DuoNeb every 6 hours and albuterol PRN. #6 hypertension: Patient was started on Norvasc. Blood pressure under better control. Other vital signs are stable. #7 benign prostatic hypertrophy: Stable, continue Flomax and finasteride. #8 anxiety/depression/bipolar disorder: Stable, continue trazodone, olanzapine and Depakote. #9 chronic hyponatremia: Secondary to chronic alcoholism. Serum sodium is 137 which is normal. #10 chronic pain syndrome: Continue Zanaflex, gabapentin.. #11 paroxysmal atrial fibrillation: He is in sinus rhythm, rate is controlled. He has been bradycardic sometimes, rate has been in the high 50s up to 60s. He is not on anticoagulation. #12 GERD: Continue Protonix. #13 DVT prophylaxis: Subcu Lovenox. This note was generated with [employer] dictation software. It may contain incorrect words, spelling, and punctuation that were not noted in checking the note before signing. Inpatient E&M: 48936 Subs Hosp L2
--- NOTE | 2019-10-05 10:12 | PCM.DC.POD ---
Weight Bearing Status: Full weight bearing - left with surgical shoe, Partial weight bearing - right heel weightbear with surgical shoe, - - Use assistive device if needed Keep extremity elevated above heart level: Left Leg, Right Leg Call your doctor if your incision/area has: Increased Pain/ Swelling Call your doctor if you observe: Fever of 101 or Higher, Calf discomfort, Uncontrolled pain Cleanse incision/area with: Soap & Water, - - Use bilateral lower extremity austin wraps Allergies/Adverse Reactions: Allergies venom-honey bee [bee venom (honey bee)] Allergy (Verified 10/02/19 19:33) Anaphylaxis Medications to take at Discharge Budesonide Inhaler 180 mcg [Pulmicort Inhaler 180 mcg] 2 puff INHALATION BID 02/22/19 Cholecalciferol (VIT D3) [Vitamin D] 2,000 unit PO DAILY 02/22/19 Divalproex Sodium [Divalproex Sodium ER] 500 mg PO QHS 02/22/19 Finasteride 5 mg PO DAILY 02/22/19 Melatonin [Melatin] 3 mg PO QHS 02/22/19 Olanzapine 15 mg PO QHS 02/22/19 Omeprazole [Prilosec] 20 mg PO DAILY 02/22/19 Sennosides/Docusate Sodium [Docusate Sodium-Senna Tablet] 1 ea PO BID 02/22/19 Tamsulosin HCl [Flomax] 0.4 mg PO QHS 02/22/19 Tizanidine HCl [Zanaflex] 4 mg PO TID PRN PRN 02/22/19 Albuterol Inhaler [Ventolin Hfa (SP)] 1 - 2 puff INHALATION Q6H PRN PRN 10/02/19 Ensure Plus 1 dose PO DAILY 10/02/19 Primary Care Physician: [facility] [Primary Care Provider] - Test Results: Test results from this visit will be discussed in further detail at your follow-up appointment, if applicable. Please Follow Up With: Ning Palafox DPM When: [facility] 1 month. Call [phone]
[2019-10-05] MEDS: Ipratropium/Albuterol Sulfate 3 ML AMPUL.NEB INHALATION ×2 (11:09→19:59)
--- NOTE | 2019-10-05 11:14 | CASEMGMT ---
Addendum entered by Verónica Jung 10/05/19 14:22: AMY received call from Cait at [facility] stating pre-cert has been obtained and pt is able to discharge to SNF today. AMY updated Cait that per physician, pt will be at [facility] today and likely discharge tomorrow. SW updated pt on approval to [facility]. Pt states he will need transportation arranged for SNF. Plan: [facility] tomorrow Original Note: Social Work Note SW updated pt that [facility] has accepted pt pending pre-cert. Pt states understanding, still agreeable to [facility]. Pt asked about transport to SNF. SW updated pt that this worker will have to see how pt is moving to determine appropriate level of transport. SW informed pt that he could likely be transported via wheelchair van and that this worker cannot guarantee transport via wheelchair van will be covered by insurance and pt may get a bill. Pt states he can't afford a bill. SW updated pt that transportation can be discussed tomorrow as physician plans on keeping pt today. Pt states understanding, gives this worker permission to call his sister Hannah to update her. SW placed a call to Hannah and updated her that pt has been accepted to [facility] pending pre-cert. Hannah states understanding. Plan: [facility] pending pre-cert. Per physician, pt is not medically cleared for discharge today. Verónica Jung GARMENT STEAMER, REGIONAL OPERATIONS DIRECTOR
--- NOTE | 2019-10-05 14:44 | CASEMGMT ---
Social Work Note SW received call from pt's Waiver OANH Johnson. SW placed a call to Elizabeth and left message regarding pt's admission to [facility] and discharge to [place] likely tomorrow. Verónica Jung ASSEMBLY WORKER, SENIOR PATROL AGENT
[2019-10-05] MEDS: Divalproex (ER) 500 MG Tablet PO (21:58)
[2019-10-05] MEDS: MELATONIN 3 MG TABLET PO (21:59)
[2019-10-05] MEDS: Atorvastatin Calcium 40 MG Tablet PO (21:59)
[2019-10-05] MEDS: Tamsulosin HCl 0.4 MG Capsule PO (21:59)
[2019-10-05] MEDS: OLANZapine 5 MG/TAB TAB.RAPDIS 15 MG PO (22:00)
[2019-10-05] MEDS: 0.9% Saline Lock 10 ML Syringe IV (22:02)
[2019-10-06 03:15] VITALS: RESP 20
[2019-10-06] MEDS: Phenobarbital 32.4 MG Tablet PO ×2 (03:23→08:52)
[2019-10-06 03:25] VITALS: BP 153/71; PULSE 58; RESP 20; TEMP 36.5; O2SAT 97
[2019-10-06] MEDS: Nystatin Powder 15gm Bottle 1 APPLIC TOPICAL (06:00)
[2019-10-06] MEDS: Ipratropium/Albuterol Sulfate 3 ML AMPUL.NEB INHALATION (07:06)
[2019-10-06 07:07] VITALS: PULSE 59; RESP 18
[2019-10-06] MEDS: Thiamine Hydrochloride 100 MG Tablet PO (08:54)
[2019-10-06] MEDS: Gabapentin 300 MG Capsule PO (08:54)
[2019-10-06] MEDS: guaiFENesin 1,200 MG Tablet 1200 MG PO (08:54)
[2019-10-06] MEDS: Folic Acid 1 MG Tablet PO (08:55)
[2019-10-06] MEDS: Pantoprazole Sodium 20 MG Tablet PO (08:55)
[2019-10-06] MEDS: Aspirin 81 MG TAB.CHEW PO (08:55)
[2019-10-06] MEDS: Finasteride 5 MG Tablet PO (08:56)
--- NOTE | 2019-10-06 09:10 | PCM.TXEXTCAR ---
- Diet 10/03/19 00:35 Diet: Regular Diet Food consistency:: Regular Liquid Consistency:: Regular/Thin - Routine Orders/Code Status Code Status: Full Code - Suggestions for Active Care Change Position every (hours): 3 Hours to sit in a chair: 2 Times a day to sit in chair: 3 - Therapies Weight Bearing: Full weight bearing - left with surgical shoe, Partial weight bearing - right heel weightbear with surgical shoe, - - Use assistive device Physical Therapy: Eval and Treat Occupational Therapy: Eval and Treat - Allergies/Procedures Done in Hospital Allergies/Adverse Reactions: Allergies venom-honey bee [bee venom (honey bee)] Allergy (Verified 10/02/19 19:33) Anaphylaxis - Type of Care/Length of Stay Estimated LOS: Convalescent Care Less Than 30 days Type of Care Needed: Skilled Rehab Potential: Fair Prognosis: Fair - Additional Orders/Day of Discharge H&P will serve as current which was dated: 10/02/19 Day of Discharge: 10/06/19 - Dietary and Speech Recommendations Dietitian Recommendations/Changes: Continue liberal regular diet. Continue Ensure Enlive w/medpass. - Follow Up Care [facility] [Primary [facility]] - Please follow up with your Primary Care Physician in: 1-2 weeks. Please Follow Up With: Ning Palafox DPM When: [facility] 1 month. Call [phone]
--- NOTE | 2019-10-06 09:48 | CASEMGMT ---
Addendum entered by Verónica Jung 10/06/19 10:35: AMY placed a call to pt's OANH Johnson at [facility] and left message updating her on pt's discharge to [facility] today. Original Note: Social Work Note Pt is ready for discharge today. AMY faxed completed discharge paperwork to [facility] including transfer to extended care facility, signed medication lits and any scripts. Original in SNF folder and copy on pt's chart. AMY completed convalescent 7000 in [facility]. Original in SNF folder and copy on pt's chart. SW spoke with pt, pt confirming he still needs transportation arranged via wheelchair van. AMY placed a call to [facility] and arranged transport via wheelchair van for 11:00am. Transport form completed, placed on SNF folder and copy on pt's chart. SW updated pt and RN on transport time. Pt gave permission for this worker to call his sister Hannah to update her. AMY placed a call to Hannah and updated her on discharge and transport time. AMY placed a call to Cait at [facility] and left message informing her of discharge and transport time. Plan: [facility] today skilled with [facility] transporting via wheelchair van at 11:00am Verónica Jung BEDSPRING ASSEMBLER, LASER SET UP OPERATOR
--- NOTE | 2019-10-06 10:09 | PCM.DC.SUM ---
Discharge Date and Diagnosis - Problem List Patient Problems: Active and Suspected Problems Alcohol withdrawal (Acute) Date of Admission: 10/02/19 Date of Discharge: 10/06/19 - Primary Discharge Diagnosis Active and Suspected Problems #1 acute alcohol intoxication/withdrawal. #2 questionable nondisplaced fracture of the fourth proximal phalanx of the right foot. #3 uncontrolled hypertension. #4 physical debility/functional decline/frequent falls. - Secondary Discharge Diagnosis Chronic Problems Lymphedema (Chronic) Alcohol abuse (Chronic) CAD (coronary artery disease) (Chronic) HTN (hypertension) (Chronic) HLD (hyperlipidemia) (Chronic) PVD (peripheral vascular disease) (Chronic) BPH without obstruction/lower urinary tract symptoms (Chronic) COLD (chronic obstructive lung disease) (Chronic) Asymptomatic coronary heart disease (Chronic) Alcohol dependence (Chronic) 15 beers daily Paroxysmal atrial fibrillation (Chronic) recommended anticoagulation as of 02/2014 Tobacco use disorder (Chronic) Stenosis of esophagus (Chronic) Hospital Course and Treatment Imaging Results: Clinical Impression(s) from Imaging Studies Brain CT 10/02/19 20:47 IMPRESSION: 1. Chronic involutional changes of the brain. 2. Maxillary, ethmoid, and sphenoid sinusitis. Electronically Signed: Petr Black MD at 21:57 EDT Tel , Service support , Chest X-Ray 10/02/19 21:30 IMPRESSION: Normal x-ray examination of the chest. Electronically Signed: Petr Black MD at 21:55 EDT Tel , Service support , Foot X-Ray 10/03/19 20:41 IMPRESSION: 1. Question nondisplaced fracture of the fourth proximal phalanx. Correlation with clinical examination is required. 2. Mild degenerative changes. Otherwise unremarkable study. Electronically Signed: Nereyda West MD at 21:40 EDT Tel , Service support , Consultations 10/03/19 00:34 Consult: Onc/Wound/[employer] Routine Comment: Operations: None Procedures: None Summary of Care Provided: Patient seen and examined on the day of discharge and appeared to be stable to be discharged to [facility]. Apart from mild intermittent right foot pain, no other complaints. Cravings symptoms for drinking alcohol has been improving every day. Vital signs are stable. This is a 69 years old male patient presented to the emergency room because of restlessness, agitation and weakness requesting admission for acute alcohol withdrawal for medical stabilization. He was found to have questionable nondisplaced fracture of the fourth proximal phalanx of the right foot. #1 acute alcohol intoxication/withdrawal: Treated with tapering phenobarbital, PRN Bentyl, Imodium, Motrin, Zofran. Routine blood work was unremarkable. LFT and lipase were normal. TSH was normal as well. Blood pressure under better control. TSH was normal. Blood alcohol level was 193 on admission. Reportedly according to the patient's daughter, patient has been using large amounts of salt in his beer. He did have significant bilateral lower extremity edema and after discontinuation of the salt, leg edema significantly improved. With phenobarbital tapering, patient symptoms improved, he has no more craving for drinking alcohol and he was stabilized. Patient discharged to SNF in a stable condition on folic acid and thiamine supplement. #2 questionable nondisplaced fracture of the fourth proximal phalanx of the right foot: Seen by podiatry and recommended partial weightbearing to the right foot and surgical shoe, plan to follow-up with podiatry medicine as outpatient. #3 physical debility/functional decline/frequent falls: Patient lives alone at home. Alcohol dependence and chronic pain syndrome with bilateral leg lymphedema are contributing to his frequent falls and physical debility. Patient discharged to [facility]. #4 CAD status post stents: Stable, no complaints. Continued aspirin and statins. #5 COPD: Clinically stable, pulse ox is maintained on room air. Continued on albuterol PRN and Pulmicort twice daily. #6 hypertension: Initially, blood pressure was highly elevated which is probably due to alcohol withdrawal. He was started on Norvasc and blood pressure became under better control. He was discharged on Norvasc. #7 benign prostatic hypertrophy: continued on Flomax and finasteride. #8 anxiety/depression/bipolar disorder: Stable, continued on trazodone, olanzapine and Depakote. #9 chronic hyponatremia: Secondary to chronic alcoholism. #10 chronic pain syndrome: Continued on Zanaflex, gabapentin.. #11 paroxysmal atrial fibrillation: He remains in sinus rhythm, rate is controlled. He is not on anticoagulation. Patient discharged to SNF in a stable medical condition, started on Norvasc for hypertension, started on aspirin and statins for CAD, continued on his other previous home medications without any changes, recommended partial weightbearing to the right foot because of the questionable right fourth phalanx fracture, plan to follow-up with podiatry as outpatient in 1 month, recommended follow-up with PCP in 1 to 2 weeks. This note was generated with [employer] dictation software. It may contain incorrect words, spelling, and punctuation that were not noted in checking the note before signing. Patient Problems: Active and Suspected Problems Alcohol withdrawal (Acute) - Physical Exam Vitals/I&O's: Vital Signs Temp Pulse Resp BP Pulse Ox 97.7 F L 59 L 18 153/71 H 97 10/06/19 03:25 10/06/19 07:07 10/06/19 07:07 10/06/19 03:25 10/06/19 03:25 Oxygen Delivery Method Room Air Weight: 197 lb 8.547 oz Body Mass Index (BMI) 26.8 Finger Stick Blood Glucose 78 Intake and Output for Last 24 Hours 10/04/19 10/05/19 10/06/19 23:59 23:59 23:59 Intake Total 1320 / 1520 300 / 300 Output Total 200 / 400 1050 / 1570 520 / 520 Balance -200 / -40 270 / -50 -220 / -220 General: Alert, Oriented x3, Cooperative, No apparent distress HEENT: Atraumatic, PERRLA, EOMI, Normocephalic Oral: Moist Mucosa, No Gingival or Mucosal Lesions/ Ulcerations Neck: Supple, No JVD, Negative Carotid Bruits, Trachea Midline, Thyroid Normal Size and Texture Lungs: Clear to auscultation, Normal air movement, No rhonchi, No wheeze, No rales, Diminished Cardiovascular: Regular rate, Regular Rhythm, Normal S1, Normal S2, PMI Normal Abdomen: Bowel Sounds Present, Soft, Non Tender, Non-Distended, No Hepato-splenomegaly Extremities: No clubbing, No cyanosis, Edema Skin: No rashes, No breakdown Lymphatic: No Cervical, Supraclavicular, or Inguinal Adenopathy Neurological: Cranial nerves II-XII grossly intact, Neuro grossly intact Psych/Mental Status: Normal Affect, Appropriate Current Medications Acetaminophen (Tylenol) 650 mg PO Q6H PRN PRN PRN Reason: Pain Score 1-10/Temp > 100.7 F Al Hydroxide/Mg Hydroxide (Mylanta Ii) 30 ml PO Q6H PRN PRN PRN Reason: dyspesia Albuterol Sulfate (Ventolin Aerosols) 2.5 mg INHALATION Q2H PRN PRN PRN Reason: dyspnea, wheezing Albuterol/Ipratropium (Duoneb) 3 ml INHALATION Q6HWA.RT [facility] Last Admin: 10/06/19 07:06 Dose: 3 ml Documented by: Amlodipine Besylate (Norvasc) 10 mg PO DAILY [facility] Last Admin: 10/05/19 09:19 Dose: 10 mg Documented by: Aspirin (Aspirin, Baby) 81 mg PO DAILY@0800 [facility] Last Admin: 10/06/19 08:55 Dose: 81 mg Documented by: Atorvastatin Calcium (Lipitor) 40 mg PO QHS [facility] Last Admin: 10/05/19 21:59 Dose: 40 mg Documented by: Bisacodyl (Dulcolax) 10 mg RECTAL DAILY PRN PRN Reason: Constipation Calamine/Phenol (Calmoseptine Ointment) 1 applic TOPICAL 4X/DAY [facility]; Protocol Last Admin: 10/05/19 21:56 Dose: 1 applicatio Documented by: Cholecalciferol (Vitamin D (25mcg)) 2,000 unit PO DAILY [facility] Last Admin: 10/06/19 08:54 Dose: 2,000 unit Documented by: Dicyclomine HCl (Bentyl) 20 mg PO Q6H PRN PRN PRN Reason: abdominal discomfort Divalproex Sodium (Depakote Er) 500 mg PO QHS [facility] Last Admin: 10/05/19 21:58 Dose: 500 mg Documented by: Enoxaparin Sodium (Lovenox) 40 mg SC DAILY [facility] Last Admin: 10/05/19 09:18 Dose: 40 mg Documented by: Finasteride (Proscar) 5 mg PO DAILY [facility] Last Admin: 10/06/19 08:56 Dose: 5 mg Documented by: Folic Acid (Folic Acid) 1 mg PO DAILY@0800 [facility] Last Admin: 10/06/19 08:55 Dose: 1 mg Documented by: Gabapentin (Neurontin) 300 mg PO TIDCM [facility] Last Admin: 10/06/19 08:54 Dose: 300 mg Documented by: Glucagon () 1 mg IM .X1 PRN PRN Reason: Hypoglycemia Guaifenesin (Mucinex) 1,200 mg PO BID [facility] Last Admin: 10/06/19 08:54 Dose: 1,200 mg Documented by: Hydralazine HCl (Apresoline Iv) 10 mg IV Q4H PRN PRN PRN Reason: SBP > 160 Hydroxyzine Pamoate (Vistaril Pamoate Capsule) 50 mg PO Q4H PRN PRN PRN Reason: mild anxiety Last Admin: 10/05/19 05:49 Dose: 50 mg Documented by: Dextrose (Dextrose 10%-Water) 250 mls @ 999 mls/hr IV .Q16M PRN; Protocol PRN Reason: HYPOGLYCEMIA Ibuprofen (Motrin) 600 mg PO Q8H PRN PRN PRN Reason: Pain Score 1-10/10 Last Admin: 10/05/19 09:31 Dose: 600 mg Documented by: Loperamide HCl (Imodium) 2 mg PO Q4H PRN PRN PRN Reason: LOOSE STOOLS Melatonin (Melatonin) 3 mg PO QHS [facility] Last Admin: 10/05/19 21:59 Dose: 3 mg Documented by: Nicotine (Nicoderm Cq (Pbkc)) 21 mg TRANSDERM. DAILY [facility] Last Admin: 10/05/19 09:19 Dose: 21 mg Documented by: Nutritional Formula (Lactose Free) (Ensure Enlive) 120 ml PO 4X/DAY [facility] Last Admin: 10/05/19 22:11 Dose: 120 ml Documented by: Nystatin (Mycostatin Powder) 1 applic TOPICAL TID [facility]; Protocol Last Admin: 10/06/19 06:00 Dose: 1 applicatio Documented by: Olanzapine (Zyprexa Zydis) 15 mg PO QHS [facility] Last Admin: 10/05/19 22:00 Dose: 15 mg Documented by: Ondansetron HCl (Zofran) 8 mg PO Q8H PRN PRN PRN Reason: NAUSEA Pantoprazole Sodium (Protonix) 20 mg PO DAILY [facility] Last Admin: 10/06/19 08:55 Dose: 20 mg Documented by: Phenobarbital (Phenobarbital) 32.4 mg PO Q6H [facility]; Taper Stop: 10/07/19 08:59 Last Admin: 10/06/19 08:52 Dose: 32.4 mg Documented by: Senna (Senokot) 2 tablet PO QHS PRN PRN PRN Reason: Constipation Sodium Chloride () 10 - 40 ml IV UD PRN PRN Reason: SALINE FLUSH Last Admin: 10/05/19 22:02 Dose: 10 ml Documented by: Tamsulosin HCl (Flomax) 0.4 mg PO QHS [facility] Last Admin: 10/05/19 21:59 Dose: 0.4 mg Documented by: [facility] ([facility]) [facility] Last Admin: 10/06/19 08:54 Dose: 100 mg Documented by: Tizanidine HCl (Zanaflex) 4 mg PO TID PRN PRN PRN Reason: MUSCLE SPASM Trazodone HCl (Desyrel) 100 mg PO QHS PRN PRN Reason: INSOMNIA Last Admin: 10/03/19 21:26 Dose: 100 mg Documented by: Weight Bearing Status: Full weight bearing - left with surgical shoe, Partial weight bearing - right heel weightbear with surgical shoe, - - Use assistive device if needed Keep extremity elevated above heart level: Left Leg, Right Leg Call your doctor if your incision/area has: Increased Pain/ Swelling Call your doctor if you observe: Fever of 101 or Higher, Calf discomfort, Uncontrolled pain Cleanse incision/area with: Soap & Water, - - Use bilateral lower extremity austin wraps Home Medications: Medications to take at Discharge Budesonide Inhaler 180 mcg [Pulmicort Inhaler 180 mcg] 2 puff INHALATION BID 02/22/19 Cholecalciferol (VIT D3) [Vitamin D3] 2,000 unit PO DAILY 02/22/19 Divalproex Sodium [Divalproex Sodium ER] 500 mg PO QHS 02/22/19 Finasteride 5 mg PO DAILY 02/22/19 Melatonin [Melatin] 3 mg PO QHS 02/22/19 Olanzapine 15 mg PO QHS 02/22/19 Omeprazole [Prilosec] 20 mg PO DAILY 02/22/19 Sennosides/Docusate Sodium [Docusate Sodium-Senna Tablet] 1 ea PO BID 02/22/19 Tamsulosin HCl [Flomax] 0.4 mg PO QHS 02/22/19 Tizanidine HCl [Zanaflex] 4 mg PO TID PRN PRN 02/22/19 Albuterol Inhaler [Ventolin Hfa] 1 - 2 puff INHALATION Q6H PRN PRN 10/02/19 Ensure Plus 1 dose PO DAILY 10/02/19 Amlodipine [Norvasc] 10 mg PO DAILY #30 tab 10/06/19 Aspirin [Aspirin, Baby] 81 mg PO DAILY@0800 #90 tab.chew 10/06/19 Atorvastatin Calcium [Lipitor] 40 mg PO QHS #90 tab 10/06/19 Folic Acid 1 mg PO DAILY@0800 #30 tab 10/06/19 Thiamine Hydrochloride [Vitamin B1] 100 mg PO DAILYCM #30 tab 10/06/19 Following Prescrptions Were Given to Patient: Aspirin [Aspirin, Baby] 81 mg PO DAILY@0800 #90 tab.chew Prescription Printed Folic Acid 1 mg PO DAILY@0800 #30 tab Prescription Printed Atorvastatin Calcium [Lipitor] 40 mg PO QHS #90 tab Prescription Printed Amlodipine [Norvasc] 10 mg PO DAILY #30 tab Prescription Printed Thiamine Hydrochloride [Vitamin B1] 100 mg PO DAILYCM #30 tab Prescription Printed [facility] [[facility]] - Please follow up with your Primary Care Physician in: 1-2 weeks. Please Follow Up With: Ning Palafox DPM When: [facility] 1 month. Call [phone] Disposition: [facility] facility Minutes spent on discharge:: 33 Patient Condition:: Stable Medical Necessity - Tobacco Use Smoking Status: Current every day smoker Tobacco Use: Cigarettes Meaningful Use Info Meaningful Use Diagnoses (Choose all that apply): None applicable Inpatient E&M: 75713 Disch Hosp
[2019-10-06 10:28] VITALS: BP 136/69; PULSE 62; RESP 24; TEMP 36.4; O2SAT 96
[2019-10-06] MEDS: Enoxaparin 40 MG/0.4 ML Syringe SC (10:37)
[2019-10-06] MEDS: hydrOXYzine PAM 25 MG Capsule 50 MG PO (10:37)
[2019-10-06] MEDS: amLODIPine 10 MG Tablet PO (10:38)
== END 2019-10-06 11:16 | disposition skilled nursing facility (03) | DRG 897 ==
LOC: ED 23:14 → MS3 10-03 02:42
PROVIDERS: Admitting Provider Family Medicine; Emergency Provider Emergency Medicine; Visit Provider Hospitalist
DX: F10.239 Alcohol dependence with withdrawal, unspecified (principal); E87.1 Hypo-osmolality and hyponatremia; F10.229 Alcohol dependence with intoxication, unspecified; B35.1 Tinea unguium; S92.514A Nondisplaced fracture of proximal phalanx of right lesser toe(s), initial encounter for closed fracture; R29.6 Repeated falls; R53.81 Other malaise; I89.0 Lymphedema, not elsewhere classified; I48.0 Paroxysmal atrial fibrillation; N40.0 Benign prostatic hyperplasia without lower urinary tract symptoms; Y90.6 Blood alcohol level of 120-199 mg/100 ml; J44.9 Chronic obstructive pulmonary disease, unspecified; X58.XXXA Exposure to other specified factors, initial encounter; I10 Essential (primary) hypertension; I25.10 Atherosclerotic heart disease of native coronary artery without angina pectoris; I73.9 Peripheral vascular disease, unspecified; F17.210 Nicotine dependence, cigarettes, uncomplicated; E78.5 Hyperlipidemia, unspecified; Z79.82 Long term (current) use of aspirin; Z95.5 Presence of coronary angioplasty implant and graft; G89.4 Chronic pain syndrome; F31.9 Bipolar disorder, unspecified; F41.9 Anxiety disorder, unspecified
CPT/HCPCS: 36415; 70450; 71046; 73630; 80053; 80320; 81001; 83690; 83735; 84100; 84443; 84484; 85025; 85610; 85730; 93005; 93923; 94640; 97110; 97116; 97162; 97166; 97530; 97535; 97802; 99285; 99406; J7030; A4216; G0480

== ENCOUNTER 2019-11-19 20:43 | Inpatient (IN) | payer MEDICARE, MEDICAID, OTHER, SELFPAY ==
[2019-10-03 00:35] VITALS: BMI 26.8
[2019-11-19 20:43] VITALS: BP 167/64; PULSE 55; RESP 18; TEMP 36.9; O2SAT 98; BMI 28.7
--- NOTE | 2019-11-19 21:12 | EKG12_ITS ---
Test Reason : FALL Blood Pressure : / mmHG Vent. Rate : 056 BPM Atrial Rate : 052 BPM P-R Int : 000 ms QRS Dur : 084 ms QT Int : 442 ms P-R-T Axes : 000 000 056 degrees QTc Int : 426 ms Atrial fibrillation with slow ventricular response Septal infarct , age undetermined Abnormal ECG Confirmed by JUANI RUBIN, JAY ([id number]), editorial intern KATIE GUTIERREZ ([id number]) on 11/22/2019 11:12:14 AM Referred By: TU Confirmed By:JAY GLORIA MD
--- NOTE | 2019-11-19 21:12 | CT_ITS ---
STUDY: CT BRAIN WITHOUT CONTRAST REASON FOR EXAM: Male, 69 years old. WEAKNESS,FALLS,ABRASIONS TO LT SIDE OF HEAD -- HX:CAD,HLD,HTN,A-FIB RADIATION DOSAGE (If Supplied By Facility): CTDIvol = ( 44.99 ) mGy, DLP = ( 829.85 ) mGycm TECHNIQUE: Transaxial CT imaging of the brain was performed without administration of intravenous contrast material. Individualized dose optimization techniques were used for this CT. COMPARISON: 10/02/2019 FINDINGS: Multiple scalp injuries. Normal calvarium. Normal size ventricles and extra-axial spaces for the patient''s age. There are areas of decreased attenuation within the white matter tracts of the supratentorial brain, consistent with microvascular disease changes. Age-related changes of the basal ganglia. Normal brainstem. Normal cerebellum. There is no intracranial hemorrhage. There are no findings of an acute ischemic infarction. Bilateral maxillary sinus cysts. Bilateral sphenoid sinus disease. CT/Brain/Head without Contrast IMPRESSION: No fracture or intracranial hemorrhage. Electronically Signed: Felix Hammond MD at 22:53 EDT Tel , Service support ,
--- NOTE | 2019-11-19 21:13 | CT_ITS ---
STUDY: CT CERVICAL SPINE WITHOUT CONTRAST REASON FOR EXAM: Male, 69 years old. WEAKNESS,FALLS RADIATION DOSAGE (If Supplied By Facility): CTDIvol = ( 25.58 ) mGy, DLP = ( 512.54 ) mGycm TECHNIQUE: High resolution transaxial imaging was performed without contrast material. Sagittal and coronal images were reconstructed. Individualized dose optimization techniques were used for this CT. COMPARISON: None FINDINGS: Craniocervical junction is intact. Degenerative changes are present involving the atlantodental articulation. Normal odontoid process. Alignment is within normal limits. Multilevel degenerative disease is present. No acute fractures or dislocations are seen. Carotid calcifications. Age-indeterminate mild compression deformity of the superior endplate of T2. CT/Spine Cervical without Contras IMPRESSION: No acute osseous injury is evident involving the cervical spine. Age-indeterminate mild compression deformity of the superior endplate of T2. Comment: MRI is more sensitive than CT in detecting cord injury, ligament injury, and epidural hematoma. If there is continued clinical concern for any of these entities, MRI correlation should be considered if possible. Electronically Signed: Felix Hammond MD at 22:56 EDT Tel , Service support ,
[2019-11-19 22:11] LABS: Basophil# 0.03 X10^3/uL; Basophil% 0.2 % (0-1); Eosinophil# 0.01 X10^3/uL; Eosinophils% 0.1 % (0-5); Hematocrit 38.5 % (40-54); Hemoglobin 13.9 g/dL (13.0-16.5); Lymphocyte % 8.6 % (19-41); Mean Corp Hgb Conc 36.1 g/dL (32-36); Mean Corpuscular Hgb 35.3 pg (27.0-32.0); Mean Corpuscular Volume 97.7 fL (80-94); Mean Platelet Vol. 9.7 fl (6.2-12.0); Monocyte# 1.68 X10^3/uL; Monocyte% 11.1 % (0-10); NRBC Flagged by Analyzer 0 % (0-5); Neutrophil # 12.04 X10^3/uL (2.7-7.7); Neutrophil % 79.5 % (47-70); POSITIVE DIFFERENTIAL YES; Platelet Count 176 K/mm3 (150-450); RBC Distribution Width CV 14.1 % (11.6-14.6); RBC Distribution Width SD 49.3 fl (35.1-43.9); Red Blood Count 3.94 M/mm3 (4.6-6.2); White Blood Count 15.1 K/mm3 (4.4-11.0)
--- NOTE | 2019-11-19 22:15 | RAD_ITS ---
STUDY: X-RAY CHEST REASON FOR EXAM: Male, 69 years old. FALLS, SOB, lives at home in unsafe conditions with feces all over. increasing weakness TECHNIQUE: Single frontal view of the chest. COMPARISON: 10/02/2019 FINDINGS: The lungs are clear and expanded. There is no demonstrated pleural abnormality. Normal size heart. Normal mediastinum and sofía. Normal visualized pulmonary arteries. Normal visualized aortic arch and descending thoracic aorta. Normal visualized thoracic spine. Normal visualized ribs, clavicles, and shoulders. There is no demonstrated abnormality of the visualized soft tissue structures of the upper abdomen. RAD/Chest 1 View (Portable) IMPRESSION: Normal x-ray examination of the chest. Electronically Signed: Felix Hammond MD at 22:48 EDT Tel , Service support ,
[2019-11-19 22:26] LABS: Differential Indicated SCAN CRITERIA MET
[2019-11-19 22:30] LABS: International Normalized Ratio 1.1; Prothrombin Time (Protime)PT. 13.2 SECONDS (11.7-14.9)
[2019-11-19 22:31] LABS: Partial Thromboplast Time 33.8 Seconds (24.1-36.2)
[2019-11-19 22:33] LABS: ALB/GLOB Ratio 0.8 RATIO (0.9-2.4); AST(SGOT) 66 U/L (15-37); Alanine Aminotransfer ALT/SGPT 38 U/L (16-61); Albumin, Serum 3.5 g/dL (3.2-5.0); Alkaline Phosphatase 142 U/L (45-117); Anion Gap 11 (5-15); BUN 4 mg/dL (7-18); BUN/Creat Ratio 6.9 RATIO (10-20); Calcium,Total 8.5 mg/dL (8.5-10.1); Chloride 85 mmol/L (98-107); Creatinine, Serum 0.58 mg/dL (0.70-1.30); EST Glomerular Filtration Rate 147 mL/min (>60); Est Glom Filt Rate - Afr Amer 178 mL/min (>60); Estimated Creatinine Clearance 74.37 ml/min; Globulin 4.5 g/dL (2.2-4.2); Glucose 90 mg/dL (74-106); Potassium 4.2 mmol/L (3.5-5.1); Sodium Level 120 mmol/L (136-145)
[2019-11-19 22:38] LABS: Differential Comment SCANNED
[2019-11-19 22:45] LABS: CPK Total, Creatine Kinase 181 U/L (39-308); Lactic Acid 3.5 mmol/L (0.4-1.9)
[2019-11-19 22:58] VITALS: BP 175/64; PULSE 58; RESP 17; O2SAT 100
[2019-11-19 23:29] LABS: Bacteria 0 SEEN /hpf (None Seen); Mucous, Urine 0 SEEN /hpf (<or=2+); Red Blood Cells-Urine 0 SEEN /hpf (0-5); Squamous Epithelial Cells - UA 0 SEEN /hpf (0-5); White Blood Cells 0 SEEN /hpf (0-5)
[2019-11-19 23:30] LABS: Color, Urine Yellow (Yellow); Glucose, Dipstick Normal (Normal); Ketone-Dipstick 5 mg/dl (Negative); Leukocyte Esterase-Dipstick Negative /ul (Negative); Nitrite-Dipstick Negative (Negative); Occult Blood-Urine Negative /ul (Negative); Protein-Dipstick Negative (Negative); Urine Bilirubin Dipstick Negative (Negative); Urine Clarity Clear (Clear); Urine Urobilinogen Normal (Normal)
--- NOTE | 2019-11-19 23:37 | ED.DCSUM_ITS ---
- ER Visit Summary Date of Service: 11/19/19 Chief Complaint: Weakness, falls History of Present Illness: The patient is a 69 M who goes to the [facility]. He reports that he has been weak for the past 2 weeks and is falling multiple times per day. He reports that he just feels as though his legs give out. On review of systems patient reports that he is a little bit short of breath. He denies any fever or chills. No sore throat or cough. No chest pain. No abdominal pain, nausea, vomiting, or diarrhea. No melena hematochezia. His last bowel movements today. No dysuria frequency. No neck or back pain. No rash or headache. He does complain of generalized weakness without paresthesias. Patient lives by himself and has been calling EMS multiple times a day to help him back up. He is unkempt and they report that there is stool all over his apartment. They have already called Adult Protective Services. Physical Examination: Vitals: 98.5, 167/64, 55, 18, 90% room air which is not hypoxic General: Well-nourished and well-developed. Unkempt. Head: Normocephalic atraumatic. Neck: Supple, no lymphadenopathy. No JVD. Nontender. Cardiovascular: Regular bradycardic rhythm with a 2 out of 6 systolic murmur. Respiratory: No respiratory distress. Minimal wheezing bilaterally. Abdominal: Soft, nontender, nondistended, normal bowel sounds. No guarding, rebound, or peritoneal signs. Back: Nontender. Extremities: Nontender, 2+ pitting edema of his lower extremities bilaterally chronic venous stasis changes. Skin: Normal color, no rash. Neurologic: Alert and oriented ?3. Cranial nerves II through XII are intact. Normal strength and sensation. Psych: Depressed affect. Test Results: EKG is A. fib at 56. Troponin is 0.032. Alcohol is 161. CPK is normal. Chem-7 shows a sodium 120, chloride of 85, BUN of 4, creatinine 0.58. LFTs show globulin 4.5, alk phos 142, AST of 66. INR is 1.1 with a PTT of 33.8. UA is normal. Chest x-ray is normal. Clinical Impression(s) from Imaging Studies Brain CT 11/19/19 21:12 IMPRESSION: No fracture or intracranial hemorrhage. Electronically Signed: Felix Hammond MD at 22:53 EDT Tel , Service support , Cervical Spine CT 11/19/19 21:13 IMPRESSION: No acute osseous injury is evident involving the cervical spine. Age-indeterminate mild compression deformity of the superior endplate of T2. Comment: MRI is more sensitive than CT in detecting cord injury, ligament injury, and epidural hematoma. If there is continued clinical concern for any of these entities, MRI correlation should be considered if possible. Electronically Signed: Felix Hammond MD at 22:56 EDT Tel , Service support , Chest X-Ray 11/19/19 22:15 IMPRESSION: Normal x-ray examination of the chest. Electronically Signed: Felix Hammond MD at 22:48 EDT Tel , Service support , Emergency Department Course and Treatment: Patient has hyponatremia and a lactic acidosis. He was given 2 L of normal saline. He was given thiamine and folate IV. He was given Zosyn IV. Treatment Plan: The patient was discussed with Dr. Roman. He will be admitted to the hospital for further evaluation and treatment. Disposition: Admitted in serious condition. Impression: 1. Generalized weakness. 2. Hyponatremia. 3. Atrial fibrillation with slow ventricular response. 4. Alcoholism. 5. Lactic acidosis. This note was generated with [employer] software. It may contain incorrect words, spelling, and punctuation that were not noted in review of the chart prior to signing ED Disposition - Plan for ED Patient: [facility]errals: [facility] [Primary [facility] Provider[facility] -
[2019-11-19 23:46] VITALS: BP 182/90; PULSE 52; RESP 20; TEMP 36.9; O2SAT 98
[2019-11-20] VITALS (8 sets, daily range): BP systolic 128–182; BP diastolic 58–91; PULSE 55–73; RESP 16–26; TEMP 36.7–37.1; O2SAT 93–100; BMI 26.7
[2019-11-20] MEDS: 0.9% Normal Saline 1,000 ML 999 ML IV ×2 (00:04→00:24)
--- NOTE | 2019-11-20 00:18 | PCM.HP.STD ---
Problem List (1) Lymphedema Status: Chronic (2) Alcohol abuse Status: Chronic (3) CAD (coronary artery disease) Status: Chronic Qualifiers: Coronary Disease-Associated Artery/Lesion type: unspecified vessel or lesion type [place] vs. transplanted heart: unspecified whether [place] or transplanted heart Associated angina: angina presence unspecified Qualified Code(s): I25.10 - Atherosclerotic heart disease of [place] coronary artery without angina pectoris (4) HTN (hypertension) Status: Chronic Qualifiers: Hypertension type: essential hypertension Qualified Code(s): I10 - Essential (primary) hypertension (5) HLD (hyperlipidemia) Status: Chronic Qualifiers: Hyperlipidemia type: unspecified Qualified Code(s): E78.5 - Hyperlipidemia, unspecified (6) PVD (peripheral vascular disease) Status: Chronic (7) BPH without obstruction/lower urinary tract symptoms Status: Chronic (8) COLD (chronic obstructive lung disease) Status: Chronic Qualifiers: COPD type: unspecified COPD Qualified Code(s): J44.9 - Chronic obstructive pulmonary disease, unspecified (9) Asymptomatic coronary heart disease Status: Chronic (10) Alcohol dependence Status: Chronic Comment: 15 beers daily (11) Paroxysmal atrial fibrillation Status: Chronic Comment: recommended anticoagulation as of 02/2014 (12) Tobacco use disorder Status: Chronic (13) Stenosis of esophagus Status: Chronic (14) Multiple falls Status: Acute (15) Generalized weakness Status: Acute History of Present Illness Date of Admission: 11/20/19 Chief Complaint: Multiple falls. The patient is a 69 year old M with a significant history of alcoholism; tobacco abuse; paroxysmal A. fib; who presented to emergency department with multiple falls. Patient has been calling paramedics for lift assist. On the day of presentation the paramedics came to help him 2 times. Also in the same week of presentation he had received further lift assist from paramedics. Reportedly patient was covered with feces and his home was unkempt. Reportedly paramedics notified Adult Protective Services. The emergency department his alcohol level was 161. His lactic acid was elevated. His white count was elevated. Patient was started on Zosyn. Past Medical History Past Medical History (Chronic Problems): Chronic Problems Lymphedema (Chronic) Alcohol abuse (Chronic) CAD (coronary artery disease) (Chronic) HTN (hypertension) (Chronic) HLD (hyperlipidemia) (Chronic) PVD (peripheral vascular disease) (Chronic) BPH without obstruction/lower urinary tract symptoms (Chronic) COLD (chronic obstructive lung disease) (Chronic) Asymptomatic coronary heart disease (Chronic) Alcohol dependence (Chronic) 15 beers daily Paroxysmal atrial fibrillation (Chronic) recommended anticoagulation as of 02/2014 Tobacco use disorder (Chronic) Stenosis of esophagus (Chronic) Allergies venom-honey bee [bee venom (honey bee)] Allergy (Verified 11/19/19 20:46) Anaphylaxis Home Medications: Ambulatory Orders Medication Instructions Recorded Budesonide Inhaler 180 mcg 2 puff INHALATION BID 02/22/19 [Pulmicort Inhaler 180 mcg] Cholecalciferol (VIT D3) [Vitamin 2,000 unit PO DAILY 02/22/19 D3] Divalproex Sodium [Divalproex 500 mg PO QHS 02/22/19 Sodium ER] Finasteride 5 mg PO DAILY 02/22/19 Melatonin [Melatin] 3 mg PO QHS 02/22/19 Olanzapine 15 mg PO QHS 02/22/19 Omeprazole [Prilosec] 20 mg PO DAILY 02/22/19 Sennosides/Docusate Sodium 1 ea PO BID 02/22/19 [Docusate Sodium-Senna Tablet] Tamsulosin HCl [Flomax] 0.4 mg PO QHS 02/22/19 Tizanidine HCl [Zanaflex] 4 mg PO TID PRN PRN 02/22/19 Albuterol Inhaler [Ventolin Hfa] 1 - 2 puff INHALATION Q6H PRN PRN 10/02/19 Ensure Plus 1 dose PO DAILY 10/02/19 Amlodipine [Norvasc] 10 mg PO DAILY #30 tab 10/06/19 Atorvastatin Calcium [Lipitor] 40 mg PO QHS #90 tab 10/06/19 Folic Acid 1 mg PO DAILY@0800 #30 tab 10/06/19 Thiamine Hydrochloride [Vitamin B1] 100 mg PO DAILYCM #30 tab 10/06/19 Surgical History: herniorrhaphy, - - Right inguinal hernia, PCI x1, reportedly esophageal intervention noted from prior reports. Psychiatric History: Anxiety, Bipolar, Depression Smoking Status: Current every day smoker - *Family History Maternal History Items: Cancer, Diabetes Paternal History Items: Cancer Review of Systems Constitutional: Denies: Chills, Fever, Weight Change HEENT: Denies: Head Aches, Sinus Congestion, Sinus Drainage Cardiovascular: Denies: Chest Pain, Palpitations Respiratory: Denies: Cough, Shortness of breath at rest, Sputum production Gastrointestinal: Denies: Abdominal Pain, Nausea, Vomiting Genitourinary: Denies: Dysuria Musculoskeletal: Denies: Joint Pain, Joint Tenderness Skin: Denies: Rash, Wounds Neurological: Denies: Numbness, Tingling, Focal weakness Psychiatric: Denies: Anxiety, Depression, Homicidal Ideations, Suicidal Ideations Hematologic/ Lymphatic: Denies: Easy Bruising, Easy Bleeding VTE Information - Inpt Only VTE Present on Admission: No VTE Mechan Device Prophylaxis: None VTE Pharm Prophylaxis ordered?: Yes Patient Problems: Active and Suspected Problems Multiple falls (Acute) Generalized weakness (Acute) - Physical Exam Vitals/I&O's: Vital Signs Temp Pulse Resp BP Pulse Ox 98.5 F 52 L 20 H 182/90 H 98 11/19/19 23:46 11/19/19 23:46 11/19/19 23:46 11/19/19 23:46 11/19/19 23:46 Oxygen Delivery Method Room Air Weight: 96 kg Body Mass Index (BMI) 28.7 Finger Stick Blood Glucose 78 General: Alert, Oriented x3, Cooperative HEENT: EOMI, Normocephalic, - - Purplish forehead Neck: Supple, Trachea Midline Lungs: Rhonchi Cardiovascular: Normal S1, Normal S2, No murmurs, Bradycardic Abdomen: Bowel Sounds Present, Soft, Non Tender Extremities: Edema Skin: - - Pigmentation of bilateral lower legs; multiple laceration on left upper extremity and hand. Musculoskeletal: No Tenderness to Palpation of Joints or Extremities Neurological: Cranial nerves II-XII grossly intact, - - Tremors Psych/Mental Status: Normal Affect, Appropriate Laboratory Results 11/19/19 21:52: WBC 15.1 H, RBC 3.94 L, Hgb 13.9, Hct 38.5 L, MCV 97.7 H, MCH 35.3 H, MCHC 36.1 H, RDW Std Deviation 49.3 H, RDW Coeff of Fredi 14.1, Plt Count 176, MPV 9.7, Immature Gran % (Auto) 0.500, Neut % (Auto) 79.5 H, Lymph % (Auto) 8.6 L, [place] % (Auto) 11.1 H, Eos % (Auto) 0.1, Baso % (Auto) 0.2, Absolute Neuts (auto) 12.0 H, Absolute Lymphs (auto) 1.30, Nucleated RBC % 0, Differential Comment SCANNED, Diff Path Review November11/19/19 21:52: PT 13.2, INR 1.1, APTT 33.8 11/19/19 21:52: Sodium 120 L, Potassium 4.2, Chloride 85 L, Carbon Dioxide 24.0, Anion Gap 11, BUN 4 L, Creatinine 0.58 L, Estim Creat Clear Calc 74.37, Est GFR (MDRD) Af Amer 178, Est GFR (MDRD) Non-Af 147, BUN/Creatinine Ratio 6.9 L, Glucose 90, Calcium 8.5, Total Bilirubin 0.90, AST 66 H, ALT 38, Alkaline Phosphatase 142 H, Troponin I 0.037, Total Protein 8.0, Albumin 3.5, Globulin 4.5 H, Albumin/Globulin Ratio 0.8 L 11/19/19 21:52: Ethyl Alcohol 161.0 11/19/19 21:52: Lactic Acid 3.5 H* 11/19/19 21:52: Total Creatine Kinase 181 11/19/19 23:25: Urine Color Yellow, Urine Clarity Clear, Urine pH 6.0, Ur Specific [place] 1.010, Urine Protein Negative, Urine Glucose (UA) Normal, Urine Ketones 5 H, Urine Occult Blood Negative, Urine Nitrite Negative, Urine Bilirubin Negative, Urine Urobilinogen Normal, Ur Leukocyte Esterase Negative, Urine RBC 0 SEEN, Urine WBC 0 SEEN, Ur Squamous Epith Cells 0 SEEN, Urine Bacteria 0 SEEN, Urine Mucus 0 SEEN Current Medications Sodium Chloride () 1,000 mls @ 999 mls/hr IV .Q1H1M SAMI Stop: 11/20/19 01:00 Last Admin: 11/20/19 00:04 Dose: 999 mls/hr Documented by: Assessment/Plan All Active Problems Multiple falls (Acute) Generalized weakness (Acute) The patient is a 69 year old M with a significant history of alcoholism; tobacco abuse; paroxysmal A. fib; who presented to emergency department with multiple falls; and generalized weakness who is unable to take care of himself. Adult failure to thrive/multiple falls The patient is unable to take care of himself. PT and OT to work with patient for balance training and strengthening. delinquency prevention social worker was consulted from the emergency department. Alcohol abuse Will put on schedule Ativan taper; and PRN Ativan depending on CIWA. Continue home folic acid and thiamine. Lactic acidosis Probable type B from decreased clearance from liver. Trend lactic acid. No clear source of infection at this time. He has a chronic venostasis and lymphedema. Lungs rhonchorous but of note patient is a smoker. Chest x-ray was unremarkable. Will get chest CT. Hold off further antibiotics at this time. Received normal saline bolus at emergency department. At the blood cultures. Leukocytosis White count of 15.1 with neutrophilic predominance and lymphopenia. No clear source of infection. Trend CBC. Hyponatremia Sodium on presentation was 120. Likely secondary to beer potomania Regular diet Trend BMP. A. fib with slow ventricular response Not on chronic anticoagulation likely secondary to history of multiple falls. Hypertension Blood pressure is not within goal Amlodipine continued Trend blood pressure and adjust blood pressure medication BPH Flomax continued. DVT Prophylaxis Subcutaneous Lovenox. Inpatient E&M: 80097 Init Hosp L3
--- NOTE | 2019-11-20 00:45 | CT_ITS ---
STUDY: CT CHEST WITH T WITHOUT CONTRAST REASON FOR EXAM: Male, 69 years old. SOB AND ELEVATED WBC,MULT FALLS -- HX:A-FIB,CAD,COPD,HLD,HTN RADIATION DOSAGE (If Supplied By Facility): CTDIvol = ( 13.37 ) mGy, DLP = ( 552.74 ) mGycm TECHNIQUE: Transaxial imaging was performed pre-and post contrast administration of IV 100mL Isovue-370. Individualized dose optimization techniques were used for this CT. COMPARISON: None. FINDINGS: There is a spiculated nodule in the anterior segment of the left flank upper lobe measures 3.5 x 2.2 cm consistent with neoplastic process. There are ill-defined centrilobular opacities in the right lower lobe consistent with pneumonia. There is no demonstrated pleural abnormality. Normal heart and pericardium. Normal mediastinum. Normal hilar regions. Normal enhanced and unenhanced pulmonary arteries. Normal aorta arch and descending thoracic aorta. There are multi-level degenerative changes of the thoracic spine. There is a defect in the upper endplate of L1 most likely Schmorl node with herniation of disc material through the upper endplate of L1. There is fatty infiltration of the liver. CT/Chest W/WO Contrast IMPRESSION: Malignant neoplastic process in the medial aspect of the anterior segment of the left upper lobe measuring 3.5 x 2.2 cm. Right lower lobe pneumonia. Electronically Signed: Amita Jama, at 1:50 EDT Tel , Service support ,
[2019-11-20 02:03] LABS: Reflex Lactate? Y
[2019-11-20] MEDS: LORazepam 1 MG Tablet PO ×6 (02:48→22:40)
[2019-11-20 03:01] LABS: Absolute Lymphocyte Count 1.01 X10^3/uL (0.83-4.51); Absolute Neutrophil Count 9.6 X10^3/uL (2.0-7.7); Basophil# 0.02 X10^3/uL; Basophil% 0.2 % (0-1); Hematocrit 38.2 % (40-54); Hemoglobin 13.2 g/dL (13.0-16.5); Lymphocyte # 1.01 X10^3/ul (4.0); Lymphocyte % 8.2 % (19-41); Mean Corp Hgb Conc 34.6 g/dL (32-36); Mean Corpuscular Hgb 33.9 pg (27.0-32.0); Mean Corpuscular Volume 98.2 fL (80-94); Mean Platelet Vol. 10.1 fl (6.2-12.0); Monocyte# 1.62 X10^3/uL; Monocyte% 13.2 % (0-10); NRBC Flagged by Analyzer 0 % (0-5); Neutrophil # 9.55 X10^3/uL (2.7-7.7); Neutrophil % 77.8 % (47-70); POSITIVE DIFFERENTIAL YES; Platelet Count 191 K/mm3 (150-450); RBC Distribution Width SD 50.3 fl (35.1-43.9); Red Blood Count 3.89 M/mm3 (4.6-6.2); White Blood Count 12.3 K/mm3 (4.4-11.0)
[2019-11-20 03:08] LABS: Differential Indicated SCAN CRITERIA MET
[2019-11-20 03:11] LABS: Anion Gap 11 (5-15); BUN 2 mg/dL (7-18); BUN/Creat Ratio 4.2 RATIO (10-20); Calcium,Total 7.8 mg/dL (8.5-10.1); Chloride 92 mmol/L (98-107); Creatinine, Serum 0.48 mg/dL (0.70-1.30); EST Glomerular Filtration Rate 182 mL/min (>60); Est Glom Filt Rate - Afr Amer 220 mL/min (>60); Estimated Creatinine Clearance 74.37 ml/min; Glucose 79 mg/dL (74-106); Potassium 3.8 mmol/L (3.5-5.1); Sodium Level 126 mmol/L (136-145)
[2019-11-20 03:13] LABS: Lactic Acid 2.5 mmol/L (0.4-1.9)
[2019-11-20 03:22] LABS: Differential Comment SCANNED; Reactive Lymphocyte RARE
[2019-11-20] MEDS: Erythromycin Base 1 OPTH.TUBE 1 APPLIC EACH EYE ×4 (05:11→22:31)
[2019-11-20] MEDS: Budesonide Respules 0.5 MG/2 ML AMPUL.NEB. INHALATION (07:42)
[2019-11-20] MEDS: Menthol/Lanolin/Calamine/Znox 113 GM Tube 1 APPLIC TOPICAL ×2 (09:52→22:32)
[2019-11-20] MEDS: Finasteride 5 MG Tablet PO (09:53)
[2019-11-20] MEDS: Pantoprazole Sodium 20 MG Tablet PO (09:53)
[2019-11-20] MEDS: Enoxaparin 40 MG/0.4 ML Syringe SC (09:53)
[2019-11-20] MEDS: Folic Acid 1 MG Tablet PO (09:54)
[2019-11-20] MEDS: amLODIPine 10 MG Tablet PO (09:54)
[2019-11-20] MEDS: Thiamine Hydrochloride 100 MG Tablet PO (09:55)
[2019-11-20] MEDS: Mupirocin Ointment 22gm Tube 1 APPLIC TOPICAL ×2 (09:55→22:33)
--- NOTE | 2019-11-20 11:28 | PCM.CONS.PUL ---
Problem List (1) Pneumonia Status: Acute (2) Severe sepsis Status: Acute (3) Multiple falls Status: Acute (4) Generalized weakness Status: Acute (5) Loss of balance Status: Inactive (6) Tinea unguium Status: Inactive (7) Lymphedema Status: Chronic (8) Alcohol abuse Status: Chronic (9) CAD (coronary artery disease) Status: Chronic Qualifiers: Coronary Disease-Associated Artery/Lesion type: unspecified vessel or lesion type [place] vs. transplanted heart: unspecified whether [place] or transplanted heart Associated angina: angina presence unspecified Qualified Code(s): I25.10 - Atherosclerotic heart disease of [place] coronary artery without angina pectoris (10) HTN (hypertension) Status: Chronic Qualifiers: Hypertension type: essential hypertension Qualified Code(s): I10 - Essential (primary) hypertension (11) HLD (hyperlipidemia) Status: Chronic Qualifiers: Hyperlipidemia type: unspecified Qualified Code(s): E78.5 - Hyperlipidemia, unspecified (12) PVD (peripheral vascular disease) Status: Chronic (13) BPH without obstruction/lower urinary tract symptoms Status: Chronic (14) Tobacco use disorder Status: Chronic (15) Stenosis of esophagus Status: Chronic Reason for Consult Date of Consultation: 11/20/19 Reason for Consultation: Possible lung mass History of Present Illness: The patient is a 69 year old M, with past medical history listed below and typically cared for at the [facility], who presented to [facility] on 11/19/2019 secondary to feeling weak and multiple falls per day for the last 2 weeks. Patient had reported some shortness of breath, but denied any fevers or chills. No cough, chest pain, nausea, vomiting or diarrhea has been reported. Patient had not reported any bleeding complications. Patient was reportedly uncapped and there was stool all over his apartment. On presentation to the ER, patient was hypertensive at 167/64 and 90% on room air. EKG showed A. fib with rate control and alcohol level was slightly elevated at 161. Chem-7 showed hyponatremia at 120, hypochloremia at 85 and normal renal function. Alk phos was slightly elevated, but chest x-ray was reportedly normal. CT of the head showed no acute fracture or intracranial hemorrhage. Chest x-ray was normal. Hospitalist was consulted and given patient's multiple falls and physical exam there was some concern for an occult pneumonia. CTA of the chest showed a 3.5 x 2.2 spiculated nodule just anterior to the heart and some centrilobular opacities consistent with possible pneumonia on the right. Patient was admitted to the [facility] and pulmonary was consulted for possible malignancy. Patient is a relatively poor historian. Patient does report smoking for 30 to 40 years over a pack a day. Patient also readily admits to drinking alcohol. Patient states that he is relatively limited in his exercise tolerance, especially with the recent weakness. Patient is unclear on if he is able to have enough food to meet his needs. Patient is not reporting any hemoptysis or unintentional weight loss. Patient does have some swelling of the legs, but states this is normal for him. Patient is not able to provide much additional history. Patient does not believe that he has had a CT scan before. Patient does report that he is gone through alcohol withdrawal previously. Patient is unclear on whether he is interested in quitting smoking or drinking, but states if I have cancer I would want it treated. Remaining of the review of systems was very difficult to obtain secondary to the patient being a poor historian. Past Medical History Past Medical History (Chronic Problems): Chronic Problems Lymphedema (Chronic) Alcohol abuse (Chronic) CAD (coronary artery disease) (Chronic) HTN (hypertension) (Chronic) HLD (hyperlipidemia) (Chronic) PVD (peripheral vascular disease) (Chronic) BPH without obstruction/lower urinary tract symptoms (Chronic) COLD (chronic obstructive lung disease) (Chronic) Asymptomatic coronary heart disease (Chronic) Alcohol dependence (Chronic) 15 beers daily Paroxysmal atrial fibrillation (Chronic) recommended anticoagulation as of 02/2014 Tobacco use disorder (Chronic) Stenosis of esophagus (Chronic) Allergies venom-honey bee [bee venom (honey bee)] Allergy (Verified 11/19/19 20:46) Anaphylaxis Home Medications: Ambulatory Orders Medication Instructions Recorded Budesonide Inhaler 180 mcg 2 puff INHALATION BID 02/22/19 [Pulmicort Inhaler 180 mcg] Cholecalciferol (VIT D3) [Vitamin 2,000 unit PO DAILY 02/22/19 D3] Divalproex Sodium [Divalproex 500 mg PO QHS 02/22/19 Sodium ER] Finasteride 5 mg PO DAILY 02/22/19 Melatonin [Melatin] 3 mg PO QHS 02/22/19 Olanzapine 15 mg PO QHS 02/22/19 Omeprazole [Prilosec] 20 mg PO DAILY 02/22/19 Sennosides/Docusate Sodium 1 ea PO BID 02/22/19 [Docusate Sodium-Senna Tablet] Tamsulosin HCl [Flomax] 0.4 mg PO QHS 02/22/19 Tizanidine HCl [Zanaflex] 4 mg PO TID PRN PRN 02/22/19 Albuterol Inhaler [Ventolin Hfa] 1 - 2 puff INHALATION Q6H PRN PRN 10/02/19 Ensure Plus 1 dose PO DAILY 10/02/19 Amlodipine [Norvasc] 10 mg PO DAILY #30 tab 10/06/19 Atorvastatin Calcium [Lipitor] 40 mg PO QHS #90 tab 10/06/19 Folic Acid 1 mg PO DAILY@0800 #30 tab 10/06/19 Thiamine Hydrochloride [Vitamin B1] 100 mg PO DAILYCM #30 tab 10/06/19 Surgical History: herniorrhaphy, - - Right inguinal hernia, PCI x1, reportedly esophageal intervention noted from prior reports. Psychiatric History: Anxiety, Bipolar, Depression Smoking Status: Current every day smoker - *Family History Maternal History Items: Cancer, Diabetes Paternal History Items: Cancer Review of Systems Unable to obtain accurate/complete ROS d/t: Mental status Patient Problems: Active and Suspected Problems Pneumonia (Acute) Severe sepsis (Acute) Multiple falls (Acute) Generalized weakness (Acute) Objective: All imaging was personally reviewed. CTA of the chest did show a 3.5 x 2.2 cm spiculated mass in the anterior segment of the left flank of the left upper lobe, just in front of the heart. This will be a difficult biopsy location given its proximity to the heart. Patient also had a right lower lobe infiltrate. Patient has never had pulmonary function tests or echocardiograms completed at this facility. - Physical Exam Vitals/I&O's: Vital Signs Temp Pulse Resp BP Pulse Ox 37.1 C 55 L 18 153/68 H 98 11/20/19 08:00 11/20/19 08:00 11/20/19 08:00 11/20/19 08:00 11/20/19 08:00 Oxygen Delivery Method Room Air Weight: 89.4 kg Body Mass Index (BMI) 26.7 Finger Stick Blood Glucose 78 Intake and Output for Last 24 Hours 0511/19/19 11/20/19 23:59 23:59 23:59 Intake Total 500 / 500 1839.2 / 1839.2 Output Total 200 / 200 Balance 500 / 500 1639.2 / 1639.2 General: Alert, No apparent distress, Confused, - - Disheveled. HEENT: Atraumatic, PERRLA, EOMI, Normocephalic, - - Lateral injection without icterus Oral: No Gingival or Mucosal Lesions/ Ulcerations, Dry Mucosa Neck: Supple, No JVD, No Nodes, Trachea Midline Lungs: No rales, Rhonchi - Right base greater than other areas, Wheezes, - - Symmetric expansion Cardiovascular: Normal S1, Normal S2, No murmurs, Irregular Rate, No rub noted, No Gallop Abdomen: Bowel Sounds Present, Soft, Non Tender, Non-Distended, Obese Extremities: No cyanosis, Clubbing, Edema - 2+ lower extremities Skin: - - Significant discoloration of the tips of the fingers Musculoskeletal: No Tenderness to Palpation of Joints or Extremities Lymphatic: No Cervical, Supraclavicular, or Inguinal Adenopathy Neurological: Cranial nerves II-XII grossly intact, Neuro grossly intact, - - Proprioception and standing gait were not tested secondary to patient's recurrent falls Psych/Mental Status: Flat Affect, Restless Laboratory Results 11/19/19 21:52: WBC 15.1 H, RBC 3.94 L, Hgb 13.9, Hct 38.5 L, MCV 97.7 H, MCH 35.3 H, MCHC 36.1 H, RDW Std Deviation 49.3 H, RDW Coeff of Fredi 14.1, Plt Count 176, MPV 9.7, Immature Gran % (Auto) 0.500, Neut % (Auto) 79.5 H, Lymph % (Auto) 8.6 L, [place] % (Auto) 11.1 H, Eos % (Auto) 0.1, Baso % (Auto) 0.2, Absolute Neuts (auto) 12.0 H, Absolute Lymphs (auto) 1.30, Nucleated RBC % 0, Differential Comment SCANNED, Diff Path Review November11/19/19 21:52: PT 13.2, INR 1.1, APTT 33.8 11/19/19 21:52: Sodium 120 L, Potassium 4.2, Chloride 85 L, Carbon Dioxide 24.0, Anion Gap 11, BUN 4 L, Creatinine 0.58 L, Estim Creat Clear Calc 74.37, Est GFR (MDRD) Af Amer 178, Est GFR (MDRD) Non-Af 147, BUN/Creatinine Ratio 6.9 L, Glucose 90, Calcium 8.5, Total Bilirubin 0.90, AST 66 H, ALT 38, Alkaline Phosphatase 142 H, Troponin I 0.037, Total Protein 8.0, Albumin 3.5, Globulin 4.5 H, Albumin/Globulin Ratio 0.8 L 11/19/19 21:52: Ethyl Alcohol 161.0 11/19/19 21:52: Lactic Acid 3.5 H* 11/19/19 21:52: Total Creatine Kinase 181 11/19/19 23:25: Urine Color Yellow, Urine Clarity Clear, Urine pH 6.0, Ur Specific Marissa 1.010, Urine Protein Negative, Urine Glucose (UA) Normal, Urine Ketones 5 H, Urine Occult Blood Negative, Urine Nitrite Negative, Urine Bilirubin Negative, Urine Urobilinogen Normal, Ur Leukocyte Esterase Negative, Urine RBC 0 SEEN, Urine WBC 0 SEEN, Ur Squamous Epith Cells 0 SEEN, Urine Bacteria 0 SEEN, Urine Mucus 0 SEEN 11/20/19 02:28: Lactic Acid 2.5 H* 11/20/19 02:28: Sodium 126 L, Potassium 3.8, Chloride 92 L, Carbon Dioxide 23.0, Anion Gap 11, BUN 2 L, Creatinine 0.48 L, Estim Creat Clear Calc 74.37, Est GFR (MDRD) Af Amer 220, Est GFR (MDRD) Non-Af 182, BUN/Creatinine Ratio 4.2 L, Glucose 79, Calcium 7.8 L 11/20/19 02:28: WBC 12.3 H, RBC 3.89 L, Hgb 13.2, Hct 38.2 L, MCV 98.2 H, MCH 33.9 H, MCHC 34.6, RDW Std Deviation 50.3 H, RDW Coeff of Fredi 14.0, Plt Count 191, MPV 10.1, Immature Gran % (Auto) 0.600, Neut % (Auto) 77.8 H, Lymph % (Auto) 8.2 L, [place] % (Auto) 13.2 H, Eos % (Auto) 0.0, Baso % (Auto) 0.2, Absolute Neuts (auto) 9.6 H, Absolute Lymphs (auto) 1.01, Nucleated RBC % 0, Differential Comment SCANNED, Diff Path Review May foll, Reactive Lymphocytes RARE Current Medications Acetaminophen (Tylenol) 650 mg PO Q6H PRN PRN PRN Reason: Pain Score 1-10/Temp > 100.7 F Albuterol Sulfate (Ventolin Aerosols) 2.5 mg INHALATION Q2H PRN PRN PRN Reason: sob/wheezing Amlodipine Besylate (Norvasc) 10 mg PO DAILY [facility] Last Admin: 11/20/19 09:54 Dose: 10 mg Documented by: Atorvastatin Calcium (Lipitor) 40 mg PO QHS [facility] Budesonide (Pulmicort Aerosol) 0.5 mg INHALATION BID [facility] Last Admin: 11/20/19 07:42 Dose: 0.5 mg Documented by: Calamine/Phenol (Calmoseptine Ointment) 1 applic TOPICAL BID [facility]; Protocol Last Admin: 11/20/19 09:52 Dose: 1 applicatio Documented by: Cholecalciferol (Vitamin D (25mcg)) 2,000 unit PO DAILY [facility] Last Admin: 11/20/19 09:54 Dose: 2,000 unit Documented by: Dextrose (D50w Syringe) 0 gm IV X1 PRN; Protocol PRN Reason: Hypoglycemia Divalproex Sodium (Depakote Er) 500 mg PO QHS [facility] Enoxaparin Sodium (Lovenox) 40 mg SC DAILY [facility] Last Admin: 11/20/19 09:53 Dose: 40 mg Documented by: Erythromycin () 1 applic EACH EYE 4X/DAY [facility] Last Admin: 11/20/19 05:11 Dose: 1 applicatio Documented by: Finasteride (Proscar) 5 mg PO DAILY [facility] Last Admin: 11/20/19 09:53 Dose: 5 mg Documented by: Folic Acid (Folic Acid) 1 mg PO DAILY@0800 [facility] Last Admin: 11/20/19 09:54 Dose: 1 mg Documented by: Glucagon () 1 mg IM .X1 PRN PRN Reason: Hypoglycemia Sodium Chloride () 250 mls @ 15 mls/hr IV .[id number] PRN PRN Reason: Saline Flush Sodium Chloride () 250 mls @ 15 mls/hr IV .[id number] PRN PRN Reason: Additional IVPB Infusion Ceftriaxone Sodium 2 gm/ (Sodium Chloride) 50 mls @ 100 mls/hr IV Q24@2200 [facility] Last Infusion: 11/20/19 06:49 Dose: Infused Documented by: Azithromycin 500 mg/ Dextrose 255 mls @ 250 mls/hr IV Q24@2200 [facility] Last Infusion: 11/20/19 06:12 Dose: Infused Documented by: Lorazepam (Ativan) 2 mg PO Q4H [facility]; Taper Stop: 11/24/19 10:29 Last Admin: 11/20/19 09:52 Dose: 2 mg Documented by: Lorazepam (Ativan) 2 mg PO Q2H PRN PRN; Protocol PRN Reason: CIWA score > 8 but <15 Lorazepam (Ativan) 2 mg PO UD PRN; Protocol PRN Reason: CIWA score >/=15. Lorazepam (Ativan) 2 mg IV Q2H PRN PRN; Protocol PRN Reason: CIWA score > 8 but <15 Lorazepam (Ativan) 2 mg IV UD PRN; Protocol PRN Reason: CIWA score >/=15. Melatonin (Melatonin) 3 mg PO QHS [facility] Mupirocin (Bactroban) 1 applic TOPICAL BID [facility]; Protocol Last Admin: 11/20/19 09:55 Dose: 1 applicatio Documented by: Nicotine (Nicoderm Cq (Pbkc)) 21 mg TRANSDERM. DAILY [facility] Last Admin: 11/20/19 09:52 Dose: 21 mg Documented by: Nutritional Formula (Lactose Free) (Ensure Enlive) 120 ml PO 4X/DAY [facility] Last Admin: 11/20/19 09:56 Dose: 120 ml Documented by: Olanzapine (Zyprexa Zydis) 15 mg PO QHS [facility] Ondansetron HCl (Zofran) 4 mg IV Q8H PRN PRN PRN Reason: NAUSEA/VOMITING Pantoprazole Sodium (Protonix) 20 mg PO DAILY [facility] Last Admin: 11/20/19 09:53 Dose: 20 mg Documented by: Senna/Docusate Sodium (Senokot-S, Gianna-Colace) 1 tablet PO DAILY PRN PRN PRN Reason: CONSTIPATION Sodium Chloride () 10 - 40 ml IV UD PRN PRN Reason: SALINE FLUSH Tamsulosin HCl (Flomax) 0.4 mg PO QHS [facility] Thiamine HCl (Vitamin B1) 100 mg PO DAILYCM [facility] Last Admin: 11/20/19 09:55 Dose: 100 mg Documented by: Tizanidine HCl (Zanaflex) 4 mg PO TID PRN PRN PRN Reason: MUSCLE SPASM Clinical Impression(s) from Imaging Studies Brain CT 11/19/19 21:12 IMPRESSION: No fracture or intracranial hemorrhage. Electronically Signed: Felix Hammond MD at 22:53 EDT Tel , Service support , Cervical Spine CT 11/19/19 21:13 IMPRESSION: No acute osseous injury is evident involving the cervical spine. Age-indeterminate mild compression deformity of the superior endplate of T2. Comment: MRI is more sensitive than CT in detecting cord injury, ligament injury, and epidural hematoma. If there is continued clinical concern for any of these entities, MRI correlation should be considered if possible. Electronically Signed: Felix Hammond MD at 22:56 EDT Tel , Service support , Chest X-Ray 11/19/19 22:15 IMPRESSION: Normal x-ray examination of the chest. Electronically Signed: Felix Hammond MD at 22:48 EDT Tel , Service support , Chest CT 11/20/19 00:45 IMPRESSION: Malignant neoplastic process in the medial aspect of the anterior segment of the left upper lobe measuring 3.5 x 2.2 cm. Right lower lobe pneumonia. Electronically Signed: Amita Jama at 1:50 EDT Tel , Service support , Assessment/Plan All Active Problems Pneumonia (Acute) Severe sepsis (Acute) Multiple falls (Acute) Generalized weakness (Acute) RECOMMENDATIONS: 1. Agree with empiric antibiotics and inhaled corticosteroids, would add bronchodilators 2. CIWA protocol 3. Discussed with IR about possible CT-guided biopsy 4. Wean oxygen as tolerated 5. Consult case management/social media marketing specialist for living conditions 6. Monitor electrolytes closely for refeeding syndrome. IMPRESSIONS: 1. Acute hypoxic respiratory insufficiency probable COPD exacerbation secondary to right lower lobe pneumonia Continue supplemental oxygen for now. Patient does have emphysematous changes noted on CT scan of the chest. No pulmonary function tests are available, but patient would be at high risk for COPD given protracted smoking history. Agree with empiric antibiotics and inhaled corticosteroids. Would order scheduled bronchodilators. Cannot exclude an element of aspiration pneumonia given patient's positive alcohol level and reported home situation. 2. Left-sided lung mass High clinical suspicion for malignant process. Unfortunately, given its location, biopsy may be difficult. Would review with interventional radiology to see if CT-guided biopsy would be an option. Patient does have some mediastinal lymphadenopathy, but selection would be difficult given concomitant right lower lobe infiltrate. 3. Alcohol dependency with probable withdrawal Agree with [facility] protocol. Patient still has an alcohol level, so withdrawal symptoms would not be expected as of now, but this will be anticipated moving forward. We will also have to watch patient for refeeding syndrome as this can lead to hypomagnesemia, hypokalemia and hypophosphatemia. Recommend checking these on a daily basis. 4. Advanced age/poor historian/PVD/BPH/tobacco dependence/multiple falls/poor home condition/paroxysmal A. fib Complicates care, management, recovery and prognosis. Nicotine patch can be provided. Okay to continue with baseline medications from my perspective. Global weakness may be secondary to malignancy, but CT head did not show any obvious metastasis. Patient does have a history of esophageal stricture, so EGD for malignancy would also be a consideration. Given social situation, these may need to be completed as an inpatient. Inpatient E&M: [id number] Init Hosp L3
--- NOTE | 2019-11-20 11:40 | PN_ITS ---
Patient Problems: Active and Suspected Problems Pneumonia (Acute) Severe sepsis (Acute) Multiple falls (Acute) Generalized weakness (Acute) Subjective: Patient seen and examined. He was admitted with a complaint of frequent mechanical falls. Patient lives alone and is unable to care for himself as when he was found he was covered with feces in his house was also unkempt. On admission, blood alcohol level was 161 and lactic acid was also elevated as well as elevated white cell count. Chest CT done showed right lower lobe infiltrate consistent with pneumonia he is being managed for severe sepsis due to community-acquired pneumonia. Patient seen and examined this morning. He was sitting up in his chair and had no complaints. Patient did say that he has been falling very frequently at home and thinks he may have hit his head some of the times. Patient is a chronic alcoholic and states he drinks between 4-6 beers every day and his last drink was yesterday. He denied any cough, any chest pain, any shortness of breath, any nausea vomiting or diarrhea. Review of symptoms otherwise negative. Labs and vitals reviewed. His sodium was 120 on admission and is now 126 today. Lactic acid was 3.5 and is down to 2.5 today. WBC has trended down to 12.3. Vitals/I&O's: Vital Signs Temp Pulse Resp BP Pulse Ox 98.8 F 55 L 18 153/68 H 98 11/20/19 08:00 11/20/19 08:00 11/20/19 08:00 11/20/19 08:00 11/20/19 08:00 Oxygen Delivery Method Room Air Weight: 197 lb 1.492 oz Body Mass Index (BMI) 26.7 Finger Stick Blood Glucose 78 Intake and Output for Last 24 Hours 11/18/19 11/19/19 11/20/19 23:59 23:59 23:59 Intake Total 500 / 500 1839.2 / 1839.2 Output Total 200 / 200 Balance 500 / 500 1639.2 / 1639.2 General: Alert, Oriented x3, Cooperative HEENT: Atraumatic, PERRLA, EOMI, Normocephalic, - - creamy discharge from both eyes Oral: Dry Mucosa Neck: Supple, No JVD, Negative Carotid Bruits Lungs: - - decreased breath sounds bibasally, no wheezes or crackles. on room air Cardiovascular: Regular rate, Regular Rhythm, Normal S1, Normal S2, No murmurs Abdomen: Bowel Sounds Present, Soft, Non Tender Extremities: No clubbing, No cyanosis, No edema, Capillary Refill Less than 3 Seconds Skin: - - mininmal LE edema; mild erythema of LE, with minimal differential warmth. No Musculoskeletal: No Tenderness to Palpation of Joints or Extremities Lymphatic: No Cervical, Supraclavicular, or Inguinal Adenopathy Neurological: Cranial nerves II-XII grossly intact, Neuro grossly intact, Motor Exam 5/5 strength throughout Psych/Mental Status: Normal Affect, Appropriate, Alert and oriented to time, place, person, mood and affect Laboratory Results 11/19/19 21:52: WBC 15.1 H, RBC 3.94 L, Hgb 13.9, Hct 38.5 L, MCV 97.7 H, MCH 35.3 H, MCHC 36.1 H, RDW Std Deviation 49.3 H, RDW Coeff of Fredi 14.1, Plt Count 176, MPV 9.7, Immature Gran % (Auto) 0.500, Neut % (Auto) 79.5 H, Lymph % (Auto) 8.6 L, Bailey % (Auto) 11.1 H, Eos % (Auto) 0.1, Baso % (Auto) 0.2, Absolute Neuts (auto) 12.0 H, Absolute Lymphs (auto) 1.30, Nucleated RBC % 0, Differential Comment SCANNED, Diff Path Review November11/19/19 21:52: PT 13.2, INR 1.1, APTT 33.8 11/19/19 21:52: Sodium 120 L, Potassium 4.2, Chloride 85 L, Carbon Dioxide 24.0, Anion Gap 11, BUN 4 L, Creatinine 0.58 L, Estim Creat Clear Calc 74.37, Est GFR (MDRD) Af Amer 178, Est GFR (MDRD) Non-Af 147, BUN/Creatinine Ratio 6.9 L, Glucose 90, Calcium 8.5, Total Bilirubin 0.90, AST 66 H, ALT 38, Alkaline Phosphatase 142 H, Troponin I 0.037, Total Protein 8.0, Albumin 3.5, Globulin 4.5 H, Albumin/Globulin Ratio 0.8 L 11/19/19 21:52: Ethyl Alcohol 161.0 11/19/19 21:52: Lactic Acid 3.5 H* 11/19/19 21:52: Total Creatine Kinase 181 11/19/19 23:25: Urine Color Yellow, Urine Clarity Clear, Urine pH 6.0, Ur Specific Plummer 1.010, Urine Protein Negative, Urine Glucose (UA) Normal, Urine Ketones 5 H, Urine Occult Blood Negative, Urine Nitrite Negative, Urine Bilirubin Negative, Urine Urobilinogen Normal, Ur Leukocyte Esterase Negative, Urine RBC 0 SEEN, Urine WBC 0 SEEN, Ur Squamous Epith Cells 0 SEEN, Urine Bacteria 0 SEEN, Urine Mucus 0 SEEN 11/20/19 02:28: Lactic Acid 2.5 H* 11/20/19 02:28: Sodium 126 L, Potassium 3.8, Chloride 92 L, Carbon Dioxide 23.0, Anion Gap 11, BUN 2 L, Creatinine 0.48 L, Estim Creat Clear Calc 74.37, Est GFR (MDRD) Af Amer 220, Est GFR (MDRD) Non-Af 182, BUN/Creatinine Ratio 4.2 L, Glucose 79, Calcium 7.8 L 11/20/19 02:28: WBC 12.3 H, RBC 3.89 L, Hgb 13.2, Hct 38.2 L, MCV 98.2 H, MCH 33.9 H, MCHC 34.6, RDW Std Deviation 50.3 H, RDW Coeff of Fredi 14.0, Plt Count 191, MPV 10.1, Immature Gran % (Auto) 0.600, Neut % (Auto) 77.8 H, Lymph % (Auto) 8.2 L, Bailey % (Auto) 13.2 H, Eos % (Auto) 0.0, Baso % (Auto) 0.2, Absolute Neuts (auto) 9.6 H, Absolute Lymphs (auto) 1.01, Nucleated RBC % 0, Differential Comment SCANNED, Diff Path Review May foll, Reactive Lymphocytes RARE Diagnostic Data Brain CT 11/19/19 21:12 IMPRESSION: No fracture or intracranial hemorrhage. Electronically Signed: Felix Hammond MD at 22:53 EDT Tel , Service support , Cervical Spine CT 11/19/19 21:13 IMPRESSION: No acute osseous injury is evident involving the cervical spine. Age-indeterminate mild compression deformity of the superior endplate of T2. Comment: MRI is more sensitive than CT in detecting cord injury, ligament injury, and epidural hematoma. If there is continued clinical concern for any of these entities, MRI correlation should be considered if possible. Electronically Signed: Felix Hammond MD at 22:56 EDT Tel , Service support , Chest X-Ray 11/19/19 22:15 IMPRESSION: Normal x-ray examination of the chest. Electronically Signed: Felix Hammond MD at 22:48 EDT Tel , Service support , Chest CT 11/20/19 00:45 IMPRESSION: Malignant neoplastic process in the medial aspect of the anterior segment of the left upper lobe measuring 3.5 x 2.2 cm. Right lower lobe pneumonia. Electronically Signed: Amita Jama at 1:50 EDT Tel , Service support , Current Medications Acetaminophen (Tylenol) 650 mg PO Q6H PRN PRN PRN Reason: Pain Score 1-10/Temp > 100.7 F Albuterol Sulfate (Ventolin Aerosols) 2.5 mg INHALATION Q2H PRN PRN PRN Reason: sob/wheezing Amlodipine Besylate (Norvasc) 10 mg PO DAILY [facility] Last Admin: 11/20/19 09:54 Dose: 10 mg Documented by: Atorvastatin Calcium (Lipitor) 40 mg PO QHS [facility], [facility]1983 Budesonide (Pulmicort Aerosol) 0.5 mg INHALATION BID [facility], [facility]1983 Last Admin: 11/20/19 07:42 Dose: 0.5 mg Documented by: Calamine/Phenol (Calmoseptine Ointment) 1 applic TOPICAL BID SAMI; Protocol Last Admin: 11/20/19 09:52 Dose: 1 applicatio Documented by: Cholecalciferol (Vitamin D (25mcg)) 2,000 unit PO DAILY [facility] Last Admin: 11/20/19 09:54 Dose: 2,000 unit Documented by: Dextrose (D50w Syringe) 0 gm IV X1 PRN; Protocol PRN Reason: Hypoglycemia Divalproex Sodium (Depakote Er) 500 mg PO QHS [facility]1983 Enoxaparin Sodium (Lovenox) 40 mg SC DAILY [facility] Last Admin: 11/20/19 09:53 Dose: 40 mg Documented by: Erythromycin () 1 applic EACH EYE 4X/DAY [facility], [facility] Last Admin: 11/20/19 05:11 Dose: 1 applicatio Documented by: Finasteride (Proscar) 5 mg PO DAILY [facility] Last Admin: 11/20/19 09:53 Dose: 5 mg Documented by: Folic Acid (Folic Acid) 1 mg PO DAILY@0800 [facility] Last Admin: 11/20/19 09:54 Dose: 1 mg Documented by: Glucagon () 1 mg IM .X1 PRN PRN Reason: Hypoglycemia Sodium Chloride () 250 mls @ 15 mls/hr IV .[id number] PRN PRN Reason: Saline Flush Sodium Chloride () 250 mls @ 15 mls/hr IV .[id number] PRN PRN Reason: Additional IVPB Infusion Ceftriaxone Sodium 2 gm/ (Sodium Chloride) 50 mls @ 100 mls/hr IV Q24@2200 [facility] Last Infusion: 11/20/19 06:49 Dose: Infused Documented by: Azithromycin 500 mg/ Dextrose 255 mls @ 250 mls/hr IV Q24@2200 [facility] Last Infusion: 11/20/19 06:12 Dose: Infused Documented by: Lorazepam (Ativan) 2 mg PO Q4H [facility]; Taper Stop: 11/24/19 10:29 Last Admin: 11/20/19 09:52 Dose: 2 mg Documented by: Lorazepam (Ativan) 2 mg PO Q2H PRN PRN; Protocol PRN Reason: CIWA score > 8 but <15 Lorazepam (Ativan) 2 mg PO UD PRN; Protocol PRN Reason: CIWA score >/=15. Lorazepam (Ativan) 2 mg IV Q2H PRN PRN; Protocol PRN Reason: CIWA score > 8 but <15 Lorazepam (Ativan) 2 mg IV UD PRN; Protocol PRN Reason: CIWA score >/=15. Melatonin (Melatonin) 3 mg PO QHS [facility] Mupirocin (Bactroban) 1 applic TOPICAL BID [facility], [facility]; Protocol Last Admin: 11/20/19 09:55 Dose: 1 applicatio Documented by: Nicotine (Nicoderm Cq (Pbkc)) 21 mg TRANSDERM. DAILY [facility] Last Admin: 11/20/19 09:52 Dose: 21 mg Documented by: Nutritional Formula (Lactose Free) (Ensure Enlive) 120 ml PO 4X/DAY [facility] Last Admin: 11/20/19 09:56 Dose: 120 ml Documented by: Olanzapine (Zyprexa Zydis) 15 mg PO QHS [facility] Ondansetron HCl (Zofran) 4 mg IV Q8H PRN PRN PRN Reason: NAUSEA/VOMITING Pantoprazole Sodium (Protonix) 20 mg PO DAILY [facility] Last Admin: 11/20/19 09:53 Dose: 20 mg Documented by: Senna/Docusate Sodium (Senokot-S, Gianna-Colace) 1 tablet PO DAILY PRN PRN PRN Reason: CONSTIPATION Sodium Chloride () 10 - 40 ml IV UD PRN PRN Reason: SALINE FLUSH Tamsulosin HCl (Flomax) 0.4 mg PO QHS [facility] Thiamine HCl (Vitamin B1) 100 mg PO DAILYCM [facility] Last Admin: 11/20/19 09:55 Dose: 100 mg Documented by: Tizanidine HCl (Zanaflex) 4 mg PO TID PRN PRN PRN Reason: MUSCLE SPASM STROKE Vital Signs/Narrative: Vital Signs Temp Pulse Resp BP Pulse Ox 11/20/19 08:00 98.8 F 55 L 18 153/68 H 98 11/20/19 07:42 66 26 H 93 Medical Necessity - Tobacco Use Smoking Status: Current every day smoker Assessment/Plan All Active Problems Pneumonia (Acute) Severe sepsis (Acute) Multiple falls (Acute) Generalized weakness (Acute) 1. Sepsis due to community acquired pneumonia * SIRS criteria now is 1.4- leucocytosis * on IV ceftriaxone and azithromycin * sputum cultures and blood cultures pending * will order urine for strep and legionella * has no respiratory symptoms currently. * pateint is at risk of aspiration pneumonia due to frequent falls and hitting his head; cannot say whether he passed out when he fell. * will swith to IV unasyn and continue IV azithromycin for coverage of atypicals. * 2. Lactic acidosis: lactic acid was 3.5, trended down to 2.5. Continue hydration with IVF.l Likely due to sepsis and pneumonia 3. Debility due to mechanical falls * Patient has been falling multiple times at home and keeps on pressing his life alert button. Patient admits to not been able take care of himself well at home. * Fall precautions. PT OT on board. Will likely need placement. * 4. Failure to thrive * Patient unable to care for himself at home and it is likely that chronic alcoholism is contributing as patient states he spends all his day drinking beer. He drinks 4-6 beers a day. * Consult dietitian. PT OT on board. * 5. Afib: Controlled. Has had mild bradycardia. Stable. Will monitor. 6. Lung nodule: * Chest CT showed a spiculated nodule in the anterior segment of the left lung upper lobe measuring 3.5 x 2.2 cm consistent with neoplastic process. Patient does have a history of chronic nicotine dependence and smokes about 1-1/2 packs daily. * Pulmonology consulted. 7. Hyponatremia: * This is chronic. Sodium was 120 on admission and is now 126. * Patient has had hyponatremia as far back as 2012. Likely due to chronic alcoholism. * Since it is improving, will hold off on extensive work-up for now. 8. Hypertension: On amlodipine. 9. BPH: On Flomax. 10. History of alcohol abuse: On Multivite's and thiamine as well as folic acid. On alcohol protocol with Ativan. Monitor CIWA score. VT prophylaxis: Lovenox Inpatient E&M: [id number] Subs Hosp L3
[2019-11-20] MEDS: Divalproex (ER) 500 MG Tablet PO (22:31)
[2019-11-20] MEDS: Tamsulosin HCl 0.4 MG Capsule PO (22:31)
[2019-11-20] MEDS: Atorvastatin Calcium 40 MG Tablet PO (22:31)
[2019-11-20] MEDS: MELATONIN 3 MG TABLET PO (22:31)
[2019-11-20] MEDS: OLANZapine 5 MG/TAB TAB.RAPDIS 15 MG PO (22:36)
[2019-11-21 02:15] VITALS: BP 157/83; PULSE 65; RESP 16; TEMP 36.7; O2SAT 97
[2019-11-21] MEDS: LORazepam 1 MG Tablet PO ×6 (03:00→21:01)
[2019-11-21 06:45] VITALS: PULSE 65; RESP 20; O2SAT 93
[2019-11-21] MEDS: Budesonide Respules 0.5 MG/2 ML AMPUL.NEB. INHALATION ×2 (06:45→18:50)
[2019-11-21 07:27] LABS: Absolute Lymphocyte Count 1.86 X10^3/uL (0.83-4.51); Absolute Neutrophil Count 6.4 X10^3/uL (2.0-7.7); Basophil# 0.03 X10^3/uL; Basophil% 0.3 % (0-1); Eosinophil# 0.06 X10^3/uL; Eosinophils% 0.6 % (0-5); Hematocrit 37.7 % (40-54); Hemoglobin 12.8 g/dL (13.0-16.5); Lymphocyte # 1.86 X10^3/ul (4.0); Lymphocyte % 19.5 % (19-41); Mean Platelet Vol. 9.7 fl (6.2-12.0); Monocyte# 1.18 X10^3/uL; Monocyte% 12.3 % (0-10); NRBC Flagged by Analyzer 0 % (0-5); Neutrophil # 6.39 X10^3/uL (2.7-7.7); Neutrophil % 66.9 % (47-70); Platelet Count 135 K/mm3 (150-450); RBC Distribution Width CV 15.1 % (11.6-14.6); RBC Distribution Width SD 56.3 fl (35.1-43.9); Red Blood Count 3.66 M/mm3 (4.6-6.2); White Blood Count 9.6 K/mm3 (4.4-11.0)
[2019-11-21 07:51] LABS: BUN 4 mg/dL (7-18); Creatinine, Serum 0.58 mg/dL (0.70-1.30); Glucose 107 mg/dL (74-106)
[2019-11-21 07:52] LABS: Anion Gap 5 (5-15); BUN/Creat Ratio 6.9 RATIO (10-20); Calcium,Total 8.4 mg/dL (8.5-10.1); Chloride 98 mmol/L (98-107); EST Glomerular Filtration Rate 147 mL/min (>60); Est Glom Filt Rate - Afr Amer 178 mL/min (>60); Estimated Creatinine Clearance 74.37 ml/min; Potassium 3.5 mmol/L (3.5-5.1); Sodium Level 132 mmol/L (136-145)
[2019-11-21] MEDS: Pantoprazole Sodium 20 MG Tablet PO (08:35)
[2019-11-21] MEDS: Folic Acid 1 MG Tablet PO (08:35)
[2019-11-21] MEDS: Thiamine Hydrochloride 100 MG Tablet PO (08:35)
[2019-11-21] MEDS: Enoxaparin 40 MG/0.4 ML Syringe SC (08:36)
[2019-11-21] MEDS: Mupirocin Ointment 22gm Tube 1 APPLIC TOPICAL (08:37)
[2019-11-21] MEDS: Menthol/Lanolin/Calamine/Znox 113 GM Tube 1 APPLIC TOPICAL ×2 (08:37→20:56)
[2019-11-21] MEDS: Finasteride 5 MG Tablet PO (08:37)
--- NOTE | 2019-11-21 09:54 | NURSING ---
wound photo: left hand
--- NOTE | 2019-11-21 09:55 | NURSING ---
wound photo: left forearm
--- NOTE | 2019-11-21 09:55 | NURSING ---
wound photo: left elbow
[2019-11-21 10:08] VITALS: BP 154/85; PULSE 56; RESP 16; TEMP 36.9; O2SAT 100
[2019-11-21] MEDS: Erythromycin Base 1 OPTH.TUBE 1 APPLIC EACH EYE ×4 (10:13→20:48)
[2019-11-21] MEDS: amLODIPine 10 MG Tablet PO (10:13)
--- NOTE | 2019-11-21 10:34 | CASEMGMT ---
Charge nurse updated that patient sees PCP at [facility]. TYE HUGO called [facility] to inquire about patient's PCP. Patient follows with Dr. Simons. TYE HUGO requested med list for charge nurse. TYE HUGO updated AMY Jung as well.
--- NOTE | 2019-11-21 10:46 | CASEMGMT ---
Addendum entered by Verónica Jung 11/21/19 11:15: SW received message from Elizabeth at [facility]. Elizabeth states pt was approved for [facility] 1x week, but they are closed right now. Pt has emergency response button, medication dispenser, 12 meals delivered through [employer], aides through [employer], and RN comes once a week through [employer]. Original Note: Social Work Assessment Referral Date: 11/21/2019 Date of Assessment: 11/21/2019 Reason for consult: ETOH abuse, pt inability to take care of self at home, SNF placement Informant: Personal Status: SW met with pt and introduced self and role at [facility]. Pt is alert and oriented x3, does answer questions appropriately. Pt states that he lives alone in an apartment with no steps to enter. Pt states that he was able to do some cleaning in the home, but states he has aides that come in Thursday and for 4 hours to assist with cleaning, bathing, getting groceries. Pt states he is not sure if the aides are set up through the [place] or through [facility]. Pt states that his sister Hannah is also able to assist with ADLs and will also get pt food if needed. Pt states that his sister Hannah is HCPOA for pt. DME include wheelchair and walker. PCP is Dr. Simons, through the [facility] and pharmacy is [facility] or [facility]. Pt states it has been about 3 months since pt has been to [place] clinic. Substance Abuse Hx: Per pt's chart, pt has history of ETOH use. Pt confirms that he smokes cigarettes daily and drinks ETOH daily. Pt states that he drinks an 8 pack of beer daily and smokes a pack of day of cigarettes. SW spoke with pt about his ETOH use and how it could be contributing to pt's falls at home. Pt states that's a good point. SW asked pt about cutting back on his ETOH use and pt states that's a good idea. SW asked pt if he would like substance abuse resources and pt denied. SW spoke with pt regarding how resources for substances can be beneficial and pt still denied. Mental Health Hx: Pt states that he does have history of Anxiety, states he currently takes medications prescribed through his PCP. Pt states that the last time he was at [facility] he went to [place] and was there for about 28 days. Pt states he doesn't think [place] set him up with any HHC at discharge. Pt denied HHC. SW spoke with pt about concerns of pt being able to care for self at home and the recommendation is for pt to return to SNF. Pt states that he would be agreeable to returning to [place] as they allow him to smoke at facility. SW informed pt that this worker would send referral. SW also provided pt with list of SNF that take pt's insurance. AMY reviewed chart, pt's CM is Elizabeth at [facility]. AMY placed a call to Elizabeth at [facility] and left message. AMY placed a call to [facility], spoke with Jaime REYES and proivided referral. Jaime states is willing to review referral. AMY faxed referral to [facility]. Plan: [facility] pending acceptance and pre-cert Verónica Jung FORMING DEPARTMENT SUPERVISOR, BRAILLE DUPLICATING MACHINE OPERATOR
[2019-11-21 11:16] LABS: Pathologist Review Reviewed
[2019-11-21 11:18] LABS: Pathologist Review Reviewed
--- NOTE | 2019-11-21 12:11 | PCM.PN.HOSP ---
Patient Problems: Active and Suspected Problems Pneumonia (Acute) Severe sepsis (Acute) Multiple falls (Acute) Generalized weakness (Acute) Reason for Visit: Follow-up visit for UTI and debility due to mechanical falls Subjective: Patient seen and examined. He had an uneventful night and had no complaints today. Has remained hemodynamically stable. He denies any palpitations, dizziness, nausea vomiting or diarrhea. Sodium is up to 132. CIWA score today is 1. Vitals/I&O's: Vital Signs Temp Pulse Resp BP Pulse Ox 98.4 F 56 L 16 154/85 H 100 11/21/19 10:08 11/21/19 10:08 11/21/19 10:08 11/21/19 10:08 11/21/19 10:08 Oxygen Delivery Method Room Air Weight: 197 lb 1.492 oz Body Mass Index (BMI) 26.7 Finger Stick Blood Glucose 78 Intake and Output for Last 24 Hours 11/19/19 11/20/19 11/21/19 23:59 23:59 23:59 Intake Total 500 / 500 2968.2 / 3418.2 924 / 924 Output Total 200 / 200 Balance 500 / 500 2768.2 / 3218.2 924 / 924 General: Alert, Oriented x3, Cooperative HEENT: Atraumatic, PERRLA, EOMI, Normocephalic, - - creamy discharge from both eyes has cleared up. Oral: Dry Mucosa Neck: Supple, No JVD, Negative Carotid Bruits Lungs: - - decreased breath sounds bibasally, no wheezes or crackles. on room air Cardiovascular: Regular rate, Regular Rhythm, Normal S1, Normal S2, No murmurs Abdomen: Bowel Sounds Present, Soft, Non Tender Extremities: No clubbing, No cyanosis, No edema, Capillary Refill Less than 3 Seconds Skin: - - minimal erythema of LE, with minimal differential warmth. No tenderness Musculoskeletal: No Tenderness to Palpation of Joints or Extremities Lymphatic: No Cervical, Supraclavicular, or Inguinal Adenopathy Neurological: Cranial nerves II-XII grossly intact, Neuro grossly intact, Motor Exam 5/5 strength throughout Psych/Mental Status: Normal Affect, Appropriate, Alert and oriented to time, place, person, mood and affect Microbiology Past 72 Hours 11/20/19 11:00 Stool C. difficile DNA Amplification - Final 11/19/19 23:25 Urine, Random Streptococcus pneumoniae Antigen (M - Final 11/19/19 13:19 Urine, Random Legionella Antigen - Final Laboratory Results 11/19/19 21:52: Diff Path Review Reviewed 11/20/19 02:28: Diff Path Review Reviewed 11/21/19 07:15: WBC 9.6, RBC 3.66 L, Hgb 12.8 L, Hct 37.7 L, MCV 103.0 H, MCH 35.0 H, MCHC 34.0, RDW Std Deviation 56.3 H, RDW Coeff of Fredi 15.1 H, Plt Count 135 L, MPV 9.7, Immature Gran % (Auto) 0.400, Neut % (Auto) 66.9, Lymph % (Auto) 19.5, [place] % (Auto) 12.3 H, Eos % (Auto) 0.6, Baso % (Auto) 0.3, Absolute Neuts (auto) 6.4, Absolute Lymphs (auto) 1.86, Nucleated RBC % 0 11/21/19 07:15: Sodium 132 L, Potassium 3.5, Chloride 98, Carbon Dioxide 29.0, Anion Gap 5, BUN 4 L, Creatinine 0.58 L, Estim Creat Clear Calc 74.37, Est GFR (MDRD) Af Amer 178, Est GFR (MDRD) Non-Af 147, BUN/Creatinine Ratio 6.9 L, Glucose 107 H, Calcium 8.4 L Current Medications Acetaminophen (Tylenol) 650 mg PO Q6H PRN PRN PRN Reason: Pain Score 1-10/Temp > 100.7 F Albuterol Sulfate (Ventolin Aerosols) 2.5 mg INHALATION Q2H PRN PRN PRN Reason: sob/wheezing Amlodipine Besylate (Norvasc) 10 mg PO DAILY [facility] Last Admin: 11/21/19 10:13 Dose: 10 mg Documented by: Atorvastatin Calcium (Lipitor) 40 mg PO QHS [facility] Last Admin: 11/20/19 22:31 Dose: 40 mg Documented by: Budesonide (Pulmicort Aerosol) 0.5 mg INHALATION BID [facility] Last Admin: 11/21/19 06:45 Dose: 0.5 mg Documented by: Calamine/Phenol (Calmoseptine Ointment) 1 applic TOPICAL BID [facility]; Protocol Last Admin: 11/21/19 08:37 Dose: 1 applicatio Documented by: Cholecalciferol (Vitamin D (25mcg)) 2,000 unit PO DAILY [facility] Last Admin: 11/21/19 08:35 Dose: 2,000 unit Documented by: Dextrose (D50w Syringe) 0 gm IV X1 PRN; Protocol PRN Reason: Hypoglycemia Divalproex Sodium (Depakote Er) 500 mg PO QHS [facility] Last Admin: 11/20/19 22:31 Dose: 500 mg Documented by: Enoxaparin Sodium (Lovenox) 40 mg SC DAILY [facility] Last Admin: 11/21/19 08:36 Dose: 40 mg Documented by: Erythromycin () 1 applic EACH EYE 4X/DAY [facility] Last Admin: 11/21/19 10:13 Dose: 1 applicatio Documented by: Finasteride (Proscar) 5 mg PO DAILY [facility] Last Admin: 11/21/19 08:37 Dose: 5 mg Documented by: Folic Acid (Folic Acid) 1 mg PO DAILY@0800 [facility] Last Admin: 11/21/19 08:35 Dose: 1 mg Documented by: Glucagon () 1 mg IM .X1 PRN PRN Reason: Hypoglycemia Sodium Chloride () 250 mls @ 15 mls/hr IV .[id number] PRN PRN Reason: Saline Flush Sodium Chloride () 250 mls @ 15 mls/hr IV .[id number] PRN PRN Reason: Additional IVPB Infusion Azithromycin 500 mg/ Dextrose 255 mls @ 250 mls/hr IV Q24@2200 [facility] Last Infusion: 11/20/19 22:25 Dose: Infused Documented by: Ampicillin Sodium/Sulbactam (Sodium 3 gm/ Sodium Chloride) 112 mls @ 150 mls/hr IV Q6 [facility] Last Admin: 11/21/19 11:53 Dose: 150 mls/hr Documented by: Lorazepam (Ativan) 1 mg PO Q4H [facility]; Taper Stop: 11/24/19 10:29 Last Admin: 11/21/19 10:16 Dose: 1 mg Documented by: Lorazepam (Ativan) 2 mg PO Q2H PRN PRN; Protocol PRN Reason: CIWA score > 8 but <15 Lorazepam (Ativan) 2 mg PO UD PRN; Protocol PRN Reason: CIWA score >/=15. Lorazepam (Ativan) 2 mg IV Q2H PRN PRN; Protocol PRN Reason: CIWA score > 8 but <15 Lorazepam (Ativan) 2 mg IV UD PRN; Protocol PRN Reason: CIWA score >/=15. Melatonin (Melatonin) 3 mg PO QHS [facility] Last Admin: 11/20/19 22:31 Dose: 3 mg Documented by: Nicotine (Nicoderm Cq (Pbkc)) 21 mg TRANSDERM. DAILY [facility] Last Admin: 11/21/19 10:13 Dose: 21 mg Documented by: Nutritional Formula (Lactose Free) (Ensure Enlive) 120 ml PO 4X/DAY [facility] Last Admin: 11/21/19 10:13 Dose: 120 ml Documented by: Olanzapine (Zyprexa Zydis) 15 mg PO QHS [facility] Last Admin: 11/20/19 22:36 Dose: 15 mg Documented by: Ondansetron HCl (Zofran) 4 mg IV Q8H PRN PRN PRN Reason: NAUSEA/VOMITING Pantoprazole Sodium (Protonix) 20 mg PO DAILY [facility] Last Admin: 11/21/19 08:35 Dose: 20 mg Documented by: Senna/Docusate Sodium (Senokot-S, Gianna-Colace) 1 tablet PO DAILY PRN PRN PRN Reason: CONSTIPATION Sodium Chloride () 10 - 40 ml IV UD PRN PRN Reason: SALINE FLUSH Tamsulosin HCl (Flomax) 0.4 mg PO QHS [facility] Last Admin: 11/20/19 22:31 Dose: 0.4 mg Documented by: Thiamine HCl (Vitamin B1) 100 mg PO DAILYCM [facility] Last Admin: 11/21/19 08:35 Dose: 100 mg Documented by: Tizanidine HCl (Zanaflex) 4 mg PO TID PRN PRN PRN Reason: MUSCLE SPASM STROKE Vital Signs/Narrative: Vital Signs Temp Pulse Resp BP Pulse Ox 11/21/19 10:08 98.4 F 56 L 16 154/85 H 100 Medical Necessity - Tobacco Use Smoking Status: Current every day smoker Assessment/Plan All Active Problems Pneumonia (Acute) Severe sepsis (Acute) Multiple falls (Acute) Generalized weakness (Acute) 1. Sepsis due to community acquired pneumonia on IV unasyn and azithromycin sputum cultures and blood cultures pending urine for strep and legionella negative. 2. Lactic acidosis: resolved. 3. Debility due to mechanical falls Patient has been falling multiple times at home and keeps on pressing his life alert button. Fall precautions. PT OT on board. Will need placmeent 4. Failure to thrive likely due to chronic alcoholism dietary on board. PT/OT n board 5. Afib: Controlled. Has had mild bradycardia which is asymptomatic. will monitor 6. Lung nodule: Chest CT showed a spiculated nodule in the anterior segment of the left lung upper lobe measuring 3.5 x 2.2 cm consistent with neoplastic process. Patient does have a history of chronic nicotine dependence and smokes about 1-1/2 packs daily. Pulmonology on board 7. Hyponatremia: This is chronic. sodium is now 132 likely due to beer potomania from chronic alcoholism. 8. Hypertension: On amlodipine. 9. BPH: On Flomax. 10. History of alcohol abuse: On Multivite's and thiamine as well as folic acid. On alcohol protocol with Ativan. Monitor CIWA score. CIWA score today is 1. VT prophylaxis: Lovenox Inpatient E&M: 05951 Subs Hosp L2
--- NOTE | 2019-11-21 13:47 | CASEMGMT ---
Addendum entered by Verónica Jung 11/21/19 15:15: AMY received message from Jaime at [facility] stating they are able to accept pt and will submit for pre-cert. Jaime states that pt will need to be in isolation for 14 days and pt will not be allowed to smoke in those 14 days. SW updated pt on this. Pt states understanding, still agreeable to [facility]. Plan: [facility] pending pre-cert. Original Note: Social Work Note AMY placed a call to [facility] and spoke with Otilia. Otilia states admissions is not available but will have admissions call this worker when available regarding referral. SW waiting for call back. Verónica Jung TIE IN MACHINE OPERATOR, [employer] PROFESSOR
[2019-11-21 14:58] VITALS: BP 148/85; PULSE 64; RESP 18; TEMP 36.9; O2SAT 100
[2019-11-21 18:50] VITALS: PULSE 92; RESP 22
[2019-11-21] MEDS: Atorvastatin Calcium 40 MG Tablet PO (20:49)
[2019-11-21] MEDS: MELATONIN 3 MG TABLET PO (20:49)
[2019-11-21] MEDS: Tamsulosin HCl 0.4 MG Capsule PO (20:49)
[2019-11-21] MEDS: Divalproex (ER) 500 MG Tablet PO (20:50)
[2019-11-21] MEDS: OLANZapine 5 MG/TAB TAB.RAPDIS 15 MG PO (20:51)
[2019-11-21 20:55] VITALS: BP 167/89; PULSE 69; RESP 16; TEMP 36.8; O2SAT 96
[2019-11-22] MEDS: LORazepam 1 MG Tablet PO ×3 (02:47→12:20)
[2019-11-22 02:53] VITALS: BP 165/90; PULSE 67; RESP 16; TEMP 36.9; O2SAT 96
[2019-11-22] MEDS: Budesonide Respules 0.5 MG/2 ML AMPUL.NEB. INHALATION (06:43)
[2019-11-22 06:45] VITALS: PULSE 67; RESP 18; O2SAT 94
[2019-11-22 07:43] LABS: Absolute Lymphocyte Count 1.68 X10^3/uL (0.83-4.51); Absolute Neutrophil Count 7.3 X10^3/uL (2.0-7.7); Basophil# 0.03 X10^3/uL; Basophil% 0.3 % (0-1); Eosinophil# 0.13 X10^3/uL; Eosinophils% 1.3 % (0-5); Hematocrit 36.7 % (40-54); Hemoglobin 12.4 g/dL (13.0-16.5); Lymphocyte # 1.68 X10^3/ul (4.0); Lymphocyte % 16.7 % (19-41); Mean Corp Hgb Conc 33.8 g/dL (32-36); Mean Corpuscular Hgb 34.3 pg (27.0-32.0); Mean Corpuscular Volume 101.7 fL (80-94); Mean Platelet Vol. 10.1 fl (6.2-12.0); Monocyte# 0.89 X10^3/uL; Monocyte% 8.9 % (0-10); NRBC Flagged by Analyzer 0 % (0-5); Neutrophil # 7.27 X10^3/uL (2.7-7.7); Neutrophil % 72.5 % (47-70); Platelet Count 150 K/mm3 (150-450); RBC Distribution Width CV 14.8 % (11.6-14.6); RBC Distribution Width SD 55.7 fl (35.1-43.9); Red Blood Count 3.61 M/mm3 (4.6-6.2)
[2019-11-22 08:06] LABS: Anion Gap 3 (5-15); BUN 3 mg/dL (7-18); BUN/Creat Ratio 6.4 RATIO (10-20); Calcium,Total 8.4 mg/dL (8.5-10.1); Chloride 102 mmol/L (98-107); Creatinine, Serum 0.47 mg/dL (0.70-1.30); EST Glomerular Filtration Rate 188 mL/min (>60); Est Glom Filt Rate - Afr Amer 228 mL/min (>60); Estimated Creatinine Clearance 74.37 ml/min; Glucose 107 mg/dL (74-106); Magnesium 1.5 mg/dL (1.6-2.6); Potassium 3.8 mmol/L (3.5-5.1); Sodium Level 134 mmol/L (136-145)
[2019-11-22 09:22] VITALS: BP 148/74; PULSE 67; RESP 18; TEMP 36.9; O2SAT 98
[2019-11-22] MEDS: amLODIPine 10 MG Tablet PO (09:29)
[2019-11-22] MEDS: Thiamine Hydrochloride 100 MG Tablet PO (09:29)
[2019-11-22] MEDS: Folic Acid 1 MG Tablet PO (09:30)
[2019-11-22] MEDS: Finasteride 5 MG Tablet PO (09:30)
[2019-11-22] MEDS: Pantoprazole Sodium 20 MG Tablet PO (09:30)
[2019-11-22] MEDS: Erythromycin Base 1 OPTH.TUBE 1 APPLIC EACH EYE ×2 (09:31→14:20)
[2019-11-22] MEDS: Enoxaparin 40 MG/0.4 ML Syringe SC (09:31)
[2019-11-22] MEDS: Menthol/Lanolin/Calamine/Znox 113 GM Tube 1 APPLIC TOPICAL (09:31)
--- NOTE | 2019-11-22 10:00 | CASEMGMT ---
Addendum entered by Verónica Jung 11/22/19 15:17: AMY called pt's OANH Johnson at [facility] and left message regarding discharge. SW also placed a call to Scarlet at [facility] and left message updating her on discharge. Addendum entered by Verónica Jung 11/22/19 14:37: AMY faxed completed discharge paperwork to Jaime at [facility] including transfer to extended care facility, signed medication list and any scripts. Original in SNF folder and copy on pt's chart. AMY completed convalescent [facility] in [facility], original in SNF folder and copy on pt's chart. AMY spoke with RN, RN states due to safety concerns pt is able to transport via cot. AMY placed a call to [facility] and arranged transportation via cot for 4:00pm. Transportation form completed and placed on SNF folder and copy on pt's chart. RN updated on transportation time. SW updated pt on discharge and transport time. Pt gave this worker permission to call his sister Luisa and update her on discharge and transport time. AMY placed a call to Luisa and left message regarding discharge and transportation time. AMY placed a call to [facility] and updated Otilia on transportation time. Plan: [facility] today with [facility] transporting via cot for 4:00pm Original Note: Social Work Note SW received call from Jaime at [facility] stating pre-cert has been obtained and pt is able to discharge today. Physician updated. Plan: [facility] today Verónica Jung AUTOMOTIVE COLLISION ESTIMATOR, ROPE TWISTING MACHINE OPERATOR
--- NOTE | 2019-11-22 13:50 | TREXTCAR_ITS ---
- Diet 11/21/19 16:46 Diet: Regular Diet Food consistency:: Puree Liquid Consistency:: Honey Thick Type of Dietary Supplement:: Ensure Complete Is pt able to select menu?: Yes Diet Comments: please leave a nurses' station -1:1 supervised feed, coffee add cream/sugar - Routine Orders/Code Status Enema Type: Fleetz Enema Frequency: Daily PRN Suppository Type: Dulcolax 10mg Suppository Frequency: Daily PRN - Wound(s) R. knee Wound Type: Abrasion R.inner FA Wound Type: Laceration R. hand Wound Type: Skin Tear R. elbow Wound Type: Skin Tear L. hand Wound Type: Skin Tear Dressing Change: Adaptic L. elbow Wound Type: Skin Tear Dressing Change: Adaptic L. knee Wound Type: Skin Tear L. inner FA Wound Type: Skin Tear Dressing Change: Adaptic - Therapies Weight Bearing: Weight bearing as tolerated Physical Therapy: Eval and Treat Occupational Therapy: Eval and Treat - Allergies/Procedures Done in Hospital Allergies/Adverse Reactions: Allergies venom-honey bee [bee venom (honey bee)] Allergy (Verified 11/19/19 20:46) Anaphylaxis Procedures: None - Type of Care/Length of Stay Estimated LOS: Convalescent Care Less Than 30 days Type of Care Needed: Skilled Rehab Potential: Fair Prognosis: Fair - Additional Orders/Day of Discharge Day of Discharge: 11/22/19 - Dietary and Speech Recommendations Dietitian Recommendations/Changes: Rec continue Regular diet and Ensure Enlive at [facility]. - Follow Up Care Primary Care Physician: [facility] [Primary Care Provider] - Please follow up with your Primary Care Physician in: 1-2 weeks
--- NOTE | 2019-11-22 13:52 | DS.PCM_ITS ---
Discharge Date and Diagnosis - Problem List Patient Problems: Active and Suspected Problems Pneumonia (Acute) Severe sepsis (Acute) Multiple falls (Acute) Generalized weakness (Acute) Date of Admission: 11/20/19 Date of Discharge: 11/22/19 - Primary Discharge Diagnosis Active and Suspected Problems Pneumonia (Acute) Severe sepsis (Acute) Multiple falls (Acute) Generalized weakness (Acute) - Secondary Discharge Diagnosis Chronic Problems Lymphedema (Chronic) Alcohol abuse (Chronic) CAD (coronary artery disease) (Chronic) HTN (hypertension) (Chronic) HLD (hyperlipidemia) (Chronic) PVD (peripheral vascular disease) (Chronic) BPH without obstruction/lower urinary tract symptoms (Chronic) COLD (chronic obstructive lung disease) (Chronic) Asymptomatic coronary heart disease (Chronic) Alcohol dependence (Chronic) 15 beers daily Paroxysmal atrial fibrillation (Chronic) recommended anticoagulation as of 02/2014 Tobacco use disorder (Chronic) Stenosis of esophagus (Chronic) Hospital Course and Treatment Imaging Results: Diagnostic Data Brain CT 11/19/19 21:12 IMPRESSION: No fracture or intracranial hemorrhage. Electronically Signed: Felix Hammond MD at 22:53 EDT Tel , Service support , Cervical Spine CT 11/19/19 21:13 IMPRESSION: No acute osseous injury is evident involving the cervical spine. Age-indeterminate mild compression deformity of the superior endplate of T2. Comment: MRI is more sensitive than CT in detecting cord injury, ligament injury, and epidural hematoma. If there is continued clinical concern for any of these entities, MRI correlation should be considered if possible. Electronically Signed: Felix Hammond MD at 22:56 EDT Tel , Service support , Chest X-Ray 11/19/19 22:15 IMPRESSION: Normal x-ray examination of the chest. Electronically Signed: Felix Hammond MD at 22:48 EDT Tel , Service support , Chest CT 11/20/19 00:45 IMPRESSION: Malignant neoplastic process in the medial aspect of the anterior segment of the left upper lobe measuring 3.5 x 2.2 cm. Right lower lobe pneumonia. Electronically Signed: Amita Jama, at 1:50 EDT Tel , Service support , Consultations 11/20/19 05:33 Consult: Onc/Wound/process tank tender Routine Comment: Reason for Consult:: wounds on R. arm Operations: None Procedures: None Summary of Care Provided: The patient is a 69 year old M with an extensive past medical history as outlined was admitted through the ED on 11/20/2019 with a complaint of multiple falls. Patient said he had been drinking about 5-7 beers daily and had been falling frequently at home. He kept on pressing his life button every day for the paramedics to come and help with left assist. On the day of presentation, paramedics had gone out to help him get up after a fall twice. He said he felt he hit his head but he could not be sure but denied any syncope and said he had been falling just because he felt weak and has not been able to take care of himself. Reportedly when the patient was found by the paramedics, he was covered in feces in his home was unkempt and paramedics notified adult protecti ve services. On admission in the ED, he had elevated lactic acid of 3.5 and his alcohol level was also elevated at 161. Lipase was also elevated at 15.1. Chest x-ray was unremarkable but CT of the chest showed a right lower lobe infiltrate consistent with pneumonia and malignant neoplastic process in the left upper lobe with a nodule measuring 3.5 x 2.2 cm. Patient was admitted and managed for sepsis due to community-acquired pneumonia and lung nodule. Pulmonology was also consulted. Patient was started on IV ceftriaxone and azithromycin. He was also put on erythromycin eye ointment on account of bilateral discharge from his eyes. Patient was also placed on alcohol withdrawal protocol on account of elevated alcohol and a history of heavy alcohol use. Lactic acid trended down and white cell count also trended down with antibiotics. Antibiotics were switched to IV Unasyn on account of patient having history of heavy alcohol use and concerns for aspiration. He was also evaluated by physical therapy. Patient also had hyponatremia with sodium of 120 on admission and this was chronic as he had had low sodium as far back as 2012 and was likely due to chronic alcoholism. Sodium gradually trended up with IV fluid administration. Patient remained stable white cell count trended down. Blood cultures were negative and sputum for Legionella and strep were also negative. Patient was skilled to go to a rehab facility and was discharged to the rehab facility on 11/22/2019 with a prescription for p.o. amoxicillin clavulanic acid 1 tablet twice daily for 5 days. He is to follow-up with his primary care doctor within 1 week and is also to follow-up with pulmonology within 1-2 weeks for further evaluation of the lung nodule, which is suspected to be malignant. Patient seen and examined prior to discharge. He had no complaints. Review of systems is otherwise negative. Labs and vitals reviewed. Home meds reviewed and reconciled. O/E; Vital Signs Temp Pulse Resp BP Pulse Ox 98.9 F 72 18 139/71 H 98 11/22/19 14:44 11/22/19 14:44 11/22/19 14:44 11/22/19 14:44 11/22/19 14:44 General: Alert, Oriented x3, Cooperative HEENT: Atraumatic, PERRLA, EOMI, Normocephalic, - -creamy eye discharge has resolved. Oral: Dry Mucosa Neck: Supple, No JVD, Negative Carotid Bruits Lungs: - - decreased breath sounds bibasally, no wheezes or crackles. on room air Cardiovascular: Regular rate, Regular Rhythm, Normal S1, Normal S2, No murmurs Abdomen: Bowel Sounds Present, Soft, Non Tender Extremities: No clubbing, No cyanosis, No edema, Capillary Refill Less than 3 Seconds Skin: - - minimal erythema of LE, with minimal differential warmth. No tenderness Musculoskeletal: No Tenderness to Palpation of Joints or Extremities Lymphatic: No Cervical, Supraclavicular, or Inguinal Adenopathy Neurological: Cranial nerves II-XII grossly intact, Neuro grossly intact, Motor Exam 5/5 strength throughout Psych/Mental Status: Normal Affect, Appropriate, Alert and oriented to time, place, person, mood and affect Plan as above. Patient Problems: Active and Suspected Problems Pneumonia (Acute) Severe sepsis (Acute) Multiple falls (Acute) Generalized weakness (Acute) - Physical Exam Vitals/I&O's: Vital Signs Temp Pulse Resp BP Pulse Ox 98.4 F 67 18 148/74 H 98 11/22/19 09:22 11/22/19 09:22 11/22/19 09:22 11/22/19 09:22 11/22/19 09:22 Oxygen Delivery Method Room Air Weight: 197 lb 1.492 oz Body Mass Index (BMI) 26.7 Finger Stick Blood Glucose 78 Intake and Output for Last 24 Hours 11/20/19 11/21/19 11/22/19 23:59 23:59 23:59 Intake Total 2968.2 / 3418.2 2003 1253.25 / 1253.25 Output Total 200 / 200 Balance 2768.2 / 3218.2 2003 1253.25 / 1253.25 Microbiology Past 72 Hours 11/20/19 02:28 Blood Culture (Wb) - Arm Left Blood Culture - Preliminary No growth in 48 hours. 11/20/19 11:00 Stool C. difficile DNA Amplification - Final 11/19/19 23:25 Urine, Random Streptococcus pneumoniae Antigen (M - Final 11/19/19 13:19 Urine, Random Legionella Antigen - Final Laboratory Results 11/22/19 07:18: WBC 10.0, RBC 3.61 L, Hgb 12.4 L, Hct 36.7 L, MCV 101.7 H, MCH 34.3 H, MCHC 33.8, RDW Std Deviation 55.7 H, RDW Coeff of Fredi 14.8 H, Plt Count 150, MPV 10.1, Immature Gran % (Auto) 0.300, Neut % (Auto) 72.5 H, Lymph % (Auto) 16.7 L, Dauphin % (Auto) 8.9, Eos % (Auto) 1.3, Baso % (Auto) 0.3, Absolute Neuts (auto) 7.3, Absolute Lymphs (auto) 1.68, Nucleated RBC % 0 11/22/19 07:18: Sodium 134 L, Potassium 3.8, Chloride 102, Carbon Dioxide 29.0, Anion Gap 3 L, BUN 3 L, Creatinine 0.47 L, Estim Creat Clear Calc 74.37, Est GFR (MDRD) Af Amer 228, Est GFR (MDRD) Non-Af 188, BUN/Creatinine Ratio 6.4 L, Glucose 107 H, Calcium 8.4 L, Magnesium 1.5 L Current Medications Acetaminophen (Tylenol) 650 mg PO Q6H PRN PRN PRN Reason: Pain Score 1-10/Temp > 100.7 F Albuterol Sulfate (Ventolin Aerosols) 2.5 mg INHALATION Q2H PRN PRN PRN Reason: sob/wheezing Amlodipine Besylate (Norvasc) 10 mg PO DAILY [facility] Last Admin: 11/22/19 09:29 Dose: 10 mg Documented by: Atorvastatin Calcium (Lipitor) 40 mg PO QHS [facility] Last Admin: 11/21/19 20:49 Dose: 40 mg Documented by: Budesonide (Pulmicort Aerosol) 0.5 mg INHALATION BID [facility] Last Admin: 11/22/19 06:43 Dose: 0.5 mg Documented by: Calamine/Phenol (Calmoseptine Ointment) 1 applic TOPICAL BID [facility]; Protocol Last Admin: 11/22/19 09:31 Dose: 1 applicatio Documented by: Cholecalciferol (Vitamin D (25mcg)) 2,000 unit PO DAILY [facility] Last Admin: 11/22/19 09:30 Dose: 2,000 unit Documented by: Dextrose (D50w Syringe) 0 gm IV X1 PRN; Protocol PRN Reason: Hypoglycemia Divalproex Sodium (Depakote Er) 500 mg PO QHS [facility] Last Admin: 11/21/19 20:50 Dose: 500 mg Documented by: Enoxaparin Sodium (Lovenox) 40 mg SC DAILY [facility] Last Admin: 11/22/19 09:31 Dose: 40 mg Documented by: Erythromycin () 1 applic EACH EYE 4X/DAY [facility] Last Admin: 11/22/19 09:31 Dose: 1 applicatio Documented by: Finasteride (Proscar) 5 mg PO DAILY [facility] Last Admin: 11/22/19 09:30 Dose: 5 mg Documented by: Folic Acid (Folic Acid) 1 mg PO DAILY@0800 [facility] Last Admin: 11/22/19 09:30 Dose: 1 mg Documented by: Glucagon () 1 mg IM .X1 PRN PRN Reason: Hypoglycemia Sodium Chloride () 250 mls @ 15 mls/hr IV .[id number] PRN PRN Reason: Saline Flush Last Infusion: 11/22/19 12:22 Dose: 0 mls/hr Documented by: Sodium Chloride () 250 mls @ 15 mls/hr IV .[id number] PRN PRN Reason: Additional IVPB Infusion Azithromycin 500 mg/ Dextrose 255 mls @ 250 mls/hr IV Q24@2200 [facility] Last Infusion: 11/21/19 23:04 Dose: Infused Documented by: Ampicillin Sodium/Sulbactam (Sodium 3 gm/ Sodium Chloride) 112 mls @ 150 mls/hr IV Q6 [facility] Last Admin: 11/22/19 12:20 Dose: 150 mls/hr Documented by: Lorazepam (Ativan) 1 mg PO Q6H [facility]; Taper Stop: 11/24/19 10:29 Last Admin: 11/22/19 12:20 Dose: 1 mg Documented by: Lorazepam (Ativan) 2 mg PO Q2H PRN PRN; Protocol PRN Reason: CIWA score > 8 but <15 Lorazepam (Ativan) 2 mg PO UD PRN; Protocol PRN Reason: CIWA score >/=15. Lorazepam (Ativan) 2 mg IV Q2H PRN PRN; Protocol PRN Reason: CIWA score > 8 but <15 Lorazepam (Ativan) 2 mg IV UD PRN; Protocol PRN Reason: CIWA score >/=15. Melatonin (Melatonin) 3 mg PO QHS [facility] Last Admin: 11/21/19 20:49 Dose: 3 mg Documented by: Nicotine (Nicoderm Cq (Pbkc)) 21 mg TRANSDERM. DAILY [facility] Last Admin: 11/22/19 09:29 Dose: 21 mg Documented by: Olanzapine (Zyprexa Zydis) 15 mg PO QHS [facility] Last Admin: 11/21/19 20:51 Dose: 15 mg Documented by: Ondansetron HCl (Zofran) 4 mg IV Q8H PRN PRN PRN Reason: NAUSEA/VOMITING Pantoprazole Sodium (Protonix) 20 mg PO DAILY [facility] Last Admin: 11/22/19 09:30 Dose: 20 mg Documented by: Senna/Docusate Sodium (Senokot-S, Gianna-Colace) 1 tablet PO DAILY PRN PRN PRN Reason: CONSTIPATION Sodium Chloride () 10 - 40 ml IV UD PRN PRN Reason: SALINE FLUSH Tamsulosin HCl (Flomax) 0.4 mg PO QHS [facility] Last Admin: 11/21/19 20:49 Dose: 0.4 mg Documented by: Thiamine HCl ([facility]itamin B1) [facility] Last Admin: 11/22/19 09:29 Dose: 100 mg Documented by: Tizanidine HCl (Zanaflex) 4 mg PO TID PRN PRN PRN Reason: MUSCLE SPASM Discharge Diet: Low fat/ Low Cholesterol Discharge Activity: Return to Normal Activity Weight Bearing Status: Weight bearing as tolerated Call your doctor if you observe: Fever of 101 or Higher, Shortness of breath, Dizziness, Fainting spells, Swelling in the ankles, Chest pain Home Medications: Medications to take at Discharge Budesonide Inhaler 180 mcg [Pulmicort Inhaler 180 mcg] 2 puff INHALATION BID 02/22/19 Cholecalciferol (VIT D3) [Vitamin D3] 2,000 unit PO DAILY 02/22/19 Divalproex Sodium [Divalproex Sodium ER] 500 mg PO QHS 02/22/19 Finasteride 5 mg PO DAILY 02/22/19 Melatonin [Melatin] 3 mg PO QHS 02/22/19 Olanzapine 15 mg PO QHS 02/22/19 Omeprazole [Prilosec] 20 mg PO DAILY 02/22/19 Sennosides/Docusate Sodium [Docusate Sodium-Senna Tablet] 1 ea PO BID 02/22/19 Tamsulosin HCl [Flomax] 0.4 mg PO QHS 02/22/19 Tizanidine HCl [Zanaflex] 4 mg PO TID PRN PRN 02/22/19 Albuterol Inhaler [Ventolin Hfa] 1 - 2 puff INHALATION Q6H PRN PRN 10/02/19 Ensure Plus 1 dose PO DAILY 10/02/19 Amoxicillin/Potassium Clav [Amox-Clav 875-125 mg Tablet] 1 ea PO BID #10 tab 11/22/19 Following Prescrptions Were Given to Patient: Amoxicillin/Potassium Clav [Amox-Clav 875-125 mg Tablet] 1 ea PO BID #10 tab Prescription Printed [facility] - Please follow up with your Primary Care Physician in: 1-2 weeks Disposition: [facility] facility Minutes spent on discharge:: 45 Patient Condition:: Stable Medical Necessity - Tobacco Use Smoking Status: Current every day smoker Meaningful Use Info Meaningful Use Diagnoses (Choose all that apply): None applicable Inpatient E&M: 96563 Disch Hosp
[2019-11-22 14:44] VITALS: BP 139/71; PULSE 72; RESP 18; TEMP 37.2; O2SAT 98
== END 2019-11-22 16:26 | disposition skilled nursing facility (03) | DRG 194 ==
LOC: ED 11-20 00:29 → MS3 11-20 01:55
PROVIDERS: Admitting Provider Hospitalist; Emergency Provider Emergency Medicine; Visit Provider Student in an Organized Health Care Education/Training Program
DX: J18.9 Pneumonia, unspecified organism (principal); E87.2 Acidosis; E87.1 Hypo-osmolality and hyponatremia; I48.20 Chronic atrial fibrillation, unspecified; F10.239 Alcohol dependence with withdrawal, unspecified; J44.1 Chronic obstructive pulmonary disease with (acute) exacerbation; J44.0 Chronic obstructive pulmonary disease with (acute) lower respiratory infection; R91.1 Solitary pulmonary nodule; R09.02 Hypoxemia; K22.2 Esophageal obstruction; I25.10 Atherosclerotic heart disease of native coronary artery without angina pectoris; E78.5 Hyperlipidemia, unspecified; I73.9 Peripheral vascular disease, unspecified; N40.0 Benign prostatic hyperplasia without lower urinary tract symptoms; I10 Essential (primary) hypertension; I89.0 Lymphedema, not elsewhere classified; R29.6 Repeated falls; H10.33 Unspecified acute conjunctivitis, bilateral; Y90.6 Blood alcohol level of 120-199 mg/100 ml; R62.7 Adult failure to thrive; F17.200 Nicotine dependence, unspecified, uncomplicated; Z83.3 Family history of diabetes mellitus; Z91.81 History of falling
CPT/HCPCS: 36415; 70450; 71045; 71270; 72125; 80048; 80053; 80320; 81001; 82550; 83605; 83735; 84484; 85025; 85610; 85730; 87040; 87449; 87493; 92526; 92610; 93005; 94640; 96360; 96361; 97110; 97116; 97162; 97166; 97530; 97535; 97802; 99285; 99406; J7030; J7040; J7050; Q9967; A4216; G0480; J0295; J0696; J3490

== ENCOUNTER 2020-01-06 12:51 | Outpatient (RCR) | payer MEDICARE, MEDICAID, OTHER, SELFPAY ==
[2019-12-05 08:02] VITALS: BMI 26.7
[2020-01-06 13:23] LABS: Absolute Lymphocyte Count 1.06 X10^3/uL (0.83-4.51); Basophil# 0.02 X10^3/uL; Basophil% 0.3 % (0-1); Eosinophil# 0.01 X10^3/uL; Eosinophils% 0.1 % (0-5); Hematocrit 40.5 % (40-54); Hemoglobin 14.1 g/dL (13.0-16.5); Lymphocyte # 1.06 X10^3/ul (4.0); Lymphocyte % 13.6 % (19-41); Mean Corp Hgb Conc 34.8 g/dL (32-36); Mean Corpuscular Hgb 34.1 pg (27.0-32.0); Mean Corpuscular Volume 97.8 fL (80-94); Mean Platelet Vol. 9.9 fl (6.2-12.0); Monocyte# 0.74 X10^3/uL; Monocyte% 9.5 % (0-10); NRBC Flagged by Analyzer 0 % (0-5); Neutrophil # 5.96 X10^3/uL (2.7-7.7); Neutrophil % 76.2 % (47-70); Platelet Count 252 K/mm3 (150-450); RBC Distribution Width CV 12.8 % (11.6-14.6); RBC Distribution Width SD 45.4 fl (35.1-43.9); Red Blood Count 4.14 M/mm3 (4.6-6.2); White Blood Count 7.8 K/mm3 (4.4-11.0)
[2020-01-06 13:39] LABS: Valproic Acid (Depakene) Level 26 ug/mL (50-100)
[2020-01-06 13:57] LABS: Anion Gap 10 (5-15); BUN 4 mg/dL (7-18); BUN/Creat Ratio 6.8 RATIO (10-20); Calcium,Total 8.8 mg/dL (8.5-10.1); Chloride 83 mmol/L (98-107); Creatinine, Serum 0.59 mg/dL (0.70-1.30); EST Glomerular Filtration Rate 145 mL/min (>60); Est Glom Filt Rate - Afr Amer 175 mL/min (>60); Glucose 149 mg/dL (74-106); Potassium 4.7 mmol/L (3.5-5.1); Sodium Level 119 mmol/L (136-145)
== END 2020-01-06 18:00 | disposition home or self-care (01) ==
LOC: HHLAB 12:51
DX: F31.9 Bipolar disorder, unspecified (principal); R71.8 Other abnormality of red blood cells; E87.1 Hypo-osmolality and hyponatremia
CPT/HCPCS: 80048; 80164; 85025

== ENCOUNTER 2020-01-08 18:43 | Inpatient (IN) | payer MEDICARE, MEDICAID, OTHER, SELFPAY ==
[2019-12-05 08:02] VITALS: BMI 26.7
[2020-01-08 18:45] VITALS: BP 116/62; PULSE 48; RESP 18; TEMP 36.9; O2SAT 98; BMI 28.0
--- NOTE | 2020-01-08 18:49 | ED.RN ---
stage 2 skin breakdown on buttocks. was at [facility], states kept falling there so he decided to just go home. was home to days per pt.
--- NOTE | 2020-01-08 18:59 | CT_ITS ---
STUDY: CT BRAIN WITHOUT CONTRAST REASON FOR EXAM: Male, 69 years old. Trauma RADIATION DOSAGE (If Supplied By Facility): CTDIvol = ( 44.99 ) mGy, DLP = ( 829.85 ) mGycm TECHNIQUE: Transaxial CT imaging of the brain was performed without administration of intravenous contrast material. Individualized dose optimization techniques were used for this CT. COMPARISON: November 19, 2019 FINDINGS: Brain parenchyma is without focal lesions, mass effect, acute intracranial hemorrhage, extra parenchymal fluid collections, hydrocephalus or herniation. The skull is intact. There is bilateral proptosis. CT/Brain/Head without Contrast IMPRESSION: 1. Normal CT brain. 2. Bilateral proptosis. Ophthalmology referral is advised. Electronically Signed: Mattie Looney, at 19:35 EDT Tel , Service support ,
--- NOTE | 2020-01-08 19:01 | EKG12_ITS ---
Test Reason : FALL Blood Pressure : / mmHG Vent. Rate : 046 BPM Atrial Rate : 104 BPM P-R Int : 000 ms QRS Dur : 098 ms QT Int : 492 ms P-R-T Axes : 000 -18 053 degrees QTc Int : 430 ms Atrial fibrillation Septal infarct Abnormal ECG Confirmed by JAY GLORIA MD ([id number]), legal editor KENAN RIDLEY ([id number]) on 01/10/2020 9:03:25 AM Referred By: Luli Biggs Confirmed By:JAY GLORIA MD
--- NOTE | 2020-01-08 19:01 | CT_ITS ---
STUDY: CT CERVICAL SPINE WITHOUT CONTRAST REASON FOR EXAM: Male, 69 years old. Trauma RADIATION DOSAGE (If Supplied By Facility): CTDIvol = ( 28.57 ) mGy, DLP = ( 558.24 ) mGycm TECHNIQUE: High resolution transaxial imaging was performed without contrast material. Sagittal and coronal images were reconstructed. Individualized dose optimization techniques were used for this CT. COMPARISON: November 19, 2019 FINDINGS: Craniocervical junction and cervical spine are intact and aligned. Mineralization is normal. There is incomplete fusion of the posterior arch of C1, a benign anatomic variant. Paraspinous soft tissues are normal. Thecal sac is mildly compressed at C3-C4, C4-C5 due to spondylosis. There are multilevel there is degree foraminal stenoses. There is chronic compression of the superior endplate of T1 and T2 vertebral bodies. CT/Spine Cervical without Contras IMPRESSION: 1. No acute osseous injury. No change since prior. Electronically Signed: Mattie Looney, at 19:38 EDT Tel , Service support ,
--- NOTE | 2020-01-08 19:07 | ED.VISSUMM ---
- ER Visit Summary Date of Service: 01/08/20 Chief Complaint: Fall and unable to take care of myself History of Present Illness: The patient is a 69 M who goes to the [facility]. He reports that he decided to leave [facility] and was discharged 2 days ago. However, he reports that I thought I could take care of myself, but I cannot. Patient reports that since that time he has been drinking. He fell 4 to 5 hours ago after losing his balance. States that this is because I had a sixpack. Patient denies any injury. No blow to the head or loss of consciousness. He is not on anticoagulants. He denies neck, back, shoulder, wrist, or hip pain. EMS reports that on their arrival he was sitting at the kitchen table and was covered with stool and urine. He is well-known to them. They called Adult Protective Services on him last month. Physical Examination: Vitals: Stable. Afebrile. Neck: No vertebral tenderness. Full ROM without difficulty. However, the patient is intoxicated. Back: No vertebral tenderness. General: A&O x 3. NAD. Cardiovascular exam: Bradycardic regular rhythm, no murmur, rub or gallop. Respiratory exam: Chest nontender. No crepitus. Clear to auscultation bilaterally. No wheezes or stridor. Abdominal exam: Soft, nontender, nondistended, normal bowel sounds. No pain in RUQ or LUQ specifically. No peritoneal signs. Extremity: Skin tear that appears old to the lateral portion of the right elbow. This is approximately 2 cm in length. No evidence of infection. No pain with range of motion. 2+ pitting edema of the lower extremities bilaterally with chronic venous stasis changes. Test Results: EKG is A. fib at 46. This is unchanged from a second 2019. Although at that time his rate was 58. Troponin is 0.07. LFTs are marked for an AST of 45. Chem-7 shows a sodium of 118, chloride of 82, calcium of 8.3. CBC shows an H&H of 12.7 and 36.6. Clinical Impression(s) from Imaging Studies Brain CT 01/08/20 18:59 IMPRESSION: 1. Normal CT brain. 2. Bilateral proptosis. Ophthalmology referral is advised. Electronically Signed: Mattie Looney, at 19:35 EDT Tel , Service support , Cervical Spine CT 01/08/20 19:01 IMPRESSION: 1. No acute osseous injury. No change since prior. Electronically Signed: Mattie Looney, at 19:38 EDT Tel , Service support , Chest X-Ray 01/08/20 19:22 IMPRESSION: Unremarkable chest radiograph. Electronically Signed: Mattie Looney, at 19:42 EDT Tel , Service support , Emergency Department Course and Treatment: Patient was cleaned up and had an IV placed. He is resting comfortably. I reviewed the patient's presentation last month. This is quite similar. He was diagnosed with a left upper lobe mass. I question whether some of the hyponatremia may be due to SIADH. He was given a liter of normal saline. Treatment Plan: Patient was discussed with Dr. Biggs. He will be admitted to the hospital for further evaluation and treatment. Disposition: Admitted in improved, but serious condition. Impression: 1. Severe hyponatremia. 2. Left lung mass. 3. Generalized weakness. 4. Fall. 5. Alcohol intoxication. This note was generated with jaeyosation software. It may contain incorrect words, spelling, and punctuation that were not noted in review of the chart prior to signing ED Disposition - Plan for ED Patient: [facility] [[facility] Provider] -
[2020-01-08 19:15] LABS: Absolute Lymphocyte Count 2.18 X10^3/uL (0.83-4.51); Absolute Neutrophil Count 4.3 X10^3/uL (2.0-7.7); Basophil# 0.03 X10^3/uL; Basophil% 0.4 % (0-1); Eosinophil# 0.08 X10^3/uL; Eosinophils% 1.1 % (0-5); Hematocrit 36.6 % (40-54); Hemoglobin 12.7 g/dL (13.0-16.5); Lymphocyte # 2.18 X10^3/ul (4.0); Lymphocyte % 29.9 % (19-41); Mean Corp Hgb Conc 34.7 g/dL (32-36); Mean Corpuscular Hgb 34.1 pg (27.0-32.0); Mean Corpuscular Volume 98.4 fL (80-94); Mean Platelet Vol. 9.5 fl (6.2-12.0); Monocyte% 9.6 % (0-10); NRBC Flagged by Analyzer 0 % (0-5); Neutrophil # 4.29 X10^3/uL (2.7-7.7); Neutrophil % 58.7 % (47-70); Platelet Count 210 K/mm3 (150-450); RBC Distribution Width SD 46.5 fl (35.1-43.9); Red Blood Count 3.72 M/mm3 (4.6-6.2); White Blood Count 7.3 K/mm3 (4.4-11.0)
--- NOTE | 2020-01-08 19:22 | RAD_ITS ---
STUDY: X-RAY CHEST REASON FOR EXAM: Male, 69 years old. fall today. weakness and SOB. TECHNIQUE: Frontal view of the chest COMPARISON: None. FINDINGS: The lungs are clear and expanded. There is no demonstrated pleural abnormality. Cardiac size is enlarged, likely due to artifactual technical factors off the radiograph. Normal visualized thoracic spine. Normal visualized ribs, clavicles, and shoulders. There is no demonstrated abnormality of the visualized soft tissue structures of the upper abdomen. RAD/Chest 1 View (Portable) IMPRESSION: Unremarkable chest radiograph. Electronically Signed: Mattie Looney, at 19:42 EDT Tel , Service support ,
[2020-01-08 19:37] LABS: ALB/GLOB Ratio 0.9 RATIO (0.9-2.4); AST(SGOT) 45 U/L (15-37); Alanine Aminotransfer ALT/SGPT 46 U/L (16-61); Albumin, Serum 3.5 g/dL (3.2-5.0); Alkaline Phosphatase 107 U/L (45-117); Anion Gap 10 (5-15); BUN 3 mg/dL (7-18); Calcium,Total 8.3 mg/dL (8.5-10.1); Chloride 82 mmol/L (98-107); Creatinine, Serum 0.74 mg/dL (0.70-1.30); EST Glomerular Filtration Rate 110 mL/min (>60); Est Glom Filt Rate - Afr Amer 133 mL/min (>60); Estimated Creatinine Clearance 74.37 ml/min; Globulin 3.9 g/dL (2.2-4.2); Glucose 95 mg/dL (74-106); Potassium 4.4 mmol/L (3.5-5.1); Protein, Total 7.4 g/dL (6.4-8.2); Sodium Level 118 mmol/L (136-145)
[2020-01-08 20:33] VITALS: BP 127/59; PULSE 61; RESP 21; TEMP 36.9; O2SAT 98
[2020-01-08] MEDS: 0.9% Normal Saline 1,000 ML 999 ML IV (20:33)
--- NOTE | 2020-01-08 20:49 | PCM.HP.STD ---
Problem List (1) Hyponatremia Status: Acute Comment: He has had this in the past and it is recurrent, more likely than not secondary to resumption of alcohol abuse. (2) Macrocytic anemia Status: Chronic (3) Junctional rhythm Status: Acute Comment: he has a hx of AF but this time he is in junctional (4) Mass of upper lobe of left lung Status: Chronic Comment: This was discovered on a CT scan of the chest in November 2019. The mass is located in the anterior segment of the left upper lobe and he followed up with Estefany Mukherjee in the pulmonary office on 12/05/2019. He had a CT guided lung bx on 01/02/20. There is no report in the EMR yet. (5) Multiple falls Status: Acute Comment: acute on chronic (6) Generalized weakness Status: Chronic (7) Lymphedema Status: Chronic Comment: with hyperpigmentation of the distal Legs (8) Alcohol abuse Status: Chronic (9) CAD (coronary artery disease) Status: Chronic Qualifiers: (10) HTN (hypertension) Status: Chronic Qualifiers: (11) HLD (hyperlipidemia) Status: Chronic Qualifiers: (12) PVD (peripheral vascular disease) Status: Chronic (13) BPH without obstruction/lower urinary tract symptoms Status: Chronic (14) COLD (chronic obstructive lung disease) Status: Chronic Qualifiers: (15) Alcohol dependence Status: Chronic Comment: 15 beers daily (16) Paroxysmal atrial fibrillation Status: Chronic Comment: recommended anticoagulation as of 02/2014 - he is at increased risk for anticoagulation due to ETOH abuse and frequent falls and to non-compliance with meds and follow up (17) Tobacco use disorder Status: Chronic (18) Stenosis of esophagus Status: Chronic History of Present Illness Date of Admission: 01/08/20 Chief Complaint: The patient called the medical alert button. The patient is a 69 year old M with a past medical history of alcoholism, tobacco dependence, paroxysmal atrial fibrillation on no anticoagulation due to risk for anticoagulation, stenosis of the esophagus, left upper lobe lung mass discovered in November 2019, COPD, BPH, peripheral vascular disease, coronary artery disease, hypertension, macrocytic anemia, recurrent episodes of hyponatremia (more likely than not secondary to beer Potomania), and venous insufficiency of the lower extremities. He was admitted to the hospital in November of 2019 for severe sepsis secondary to pneumonia. At that time he was brought to the hospital by emergency communications officer and they had been summoned to his house numerous times to assist him up off the floor after frequent falls secondary to intoxication. He was frequently found covered in urine and feces. He was reported to Adult Protective Services by the emergency communications officer at the time of admission in November. Today once again the emergency communications officer were summoned by the patient because he had fallen earlier in the day. He was found by the paramedics sitting at his kitchen table drinking beer and smoking. He was covered in urine and feces and reported that he had fallen earlier in the day. He had recently been a patient at [facility] but chose to leave and has been home by himself for an unknown period of time. They requested to be taken back to [facility]. This has happened in the past on many occasions prior to him going to [facility] in November and he had been reported to adult protective services. He tells me he is not able to care for himself any longer and he would like to go back to [facility]. Vital signs at presentation to the emergency department are temperature 98.4, pulse rate 48, blood pressure 116/62, respiratory rate 18 and he was 98% saturated on room air. Labs showed a normal white blood cell count and normal platelets. Differential was unremarkable. Hemoglobin was 12.7 which is within his baseline and he was macrocytic with an MCV of 98.4. Sodium was low at 118 and the chloride was low at 82. BUN was 3 with a creatinine of 0.74. The BUN/creatinine ratio was only 4. LFTs were unremarkable. Troponin was normal at 0.017. Ethyl alcohol level was 129 and the patient admitted to drinking a sixpack that day. Chest x-ray showed no pulmonary vascular congestion, infiltrates or pleural effusions. A noncontrasted CT brain was unremarkable other than bilateral proptosis. Cervical spine CT scan showed no acute osseous injury. It was unchanged from a prior study. He is being admitted to the hospital with a diagnosis of hyponatremia which I suspect is secondary to beer Potomania. He had a CT guided bx of a ELIZABETH lung mass on 01/02/20 and the path is pending. He has an appt with Dr. Santino Rodarte in February. Past Medical History Past Medical History (Chronic Problems): Chronic Problems (This Medical Record has been edited. Action required.) Macrocytic anemia (Chronic) Mass of upper lobe of left lung (Chronic) This was discovered on a CT scan of the chest in November 2019. The mass is located in the anterior segment of the left upper lobe and he followed up with Estefany Mukherjee in the pulmonary office on 12/05/2019. He had a CT guided lung bx on 01/02/20. There is no report in the EMR yet. Generalized weakness (Chronic) Lymphedema (Chronic) with hyperpigmentation of the distal Legs Alcohol abuse (Chronic) CAD (coronary artery disease) (Chronic) HTN (hypertension) (Chronic) HLD (hyperlipidemia) (Chronic) PVD (peripheral vascular disease) (Chronic) BPH without obstruction/lower urinary tract symptoms (Chronic) COLD (chronic obstructive lung disease) (Chronic) Alcohol dependence (Chronic) 15 beers daily Paroxysmal atrial fibrillation (Chronic) recommended anticoagulation as of 02/2014 - he is at increased risk for anticoagulation due to ETOH abuse and frequent falls and to non-compliance with meds and follow up Tobacco use disorder (Chronic) Stenosis of esophagus (Chronic) Medical History: Medical History (This Medical Record has been edited. 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 Localized edema (Inactive) R60.0 Lymphedema (Chronic) I89.0 with hyperpigmentation of the distal Legs Alcohol abuse (Chronic) F10.10 CAD (coronary artery disease) (Chronic) I25.10 HTN (hypertension) (Chronic) I10 HLD (hyperlipidemia) (Chronic) E78.5 PVD (peripheral vascular disease) (Chronic) I73.9 BPH without obstruction/lower urinary tract symptoms (Chronic) N40.0 COLD (chronic obstructive lung disease) (Chronic) J44.9 Alcohol dependence (Chronic) F10.20 15 beers daily Paroxysmal atrial fibrillation (Chronic) I48.0 recommended anticoagulation as of 02/2014 - he is at increased risk for anticoagulation due to ETOH abuse and frequent falls and to non-compliance with meds and follow up Tobacco use disorder (Chronic) F17.200 Stenosis of esophagus (Chronic) K22.2 Alcohol withdrawal (Resolved) F10.239 Nondisp fx proximal phalanx lesser toe right foot w/routine heal (Resolved) S92.514D Pneumonia (Resolved) J18.9 Severe sepsis (Resolved) A41.9, R65.20 Allergies venom-honey bee [bee venom (honey bee)] Allergy (Verified 12/16/19 13:46) Anaphylaxis Home Medications: Ambulatory Orders Medication Instructions Recorded Budesonide Inhaler 180 mcg 2 puff INHALATION BID 02/22/19 [Pulmicort Inhaler 180 mcg] Cholecalciferol (VIT D3) [Vitamin 2,000 unit PO DAILY 02/22/19 D3] Divalproex Sodium [Divalproex 500 mg PO QHS 02/22/19 Sodium ER] Finasteride 5 mg PO DAILY 02/22/19 Melatonin [Melatin] 3 mg PO QHS 02/22/19 Olanzapine 15 mg PO QHS 02/22/19 Omeprazole [Prilosec] 20 mg PO DAILY 02/22/19 Sennosides/Docusate Sodium 1 ea PO BID 02/22/19 [Docusate Sodium-Senna Tablet] Tamsulosin HCl [Flomax] 0.4 mg PO QHS 02/22/19 Tizanidine HCl [Zanaflex] 4 mg PO TID PRN PRN 02/22/19 Albuterol Inhaler [Ventolin Hfa] 1 - 2 puff INHALATION Q6H PRN PRN 10/02/19 Ensure Plus 1 dose PO DAILY 10/02/19 Amoxicillin/Potassium Clav 1 ea PO BID #10 tab 11/22/19 [Amox-Clav 875-125 mg Tablet] Surgical History: herniorrhaphy, - - Right inguinal hernia, PCI x1, reportedly esophageal intervention noted from prior reports. Psychiatric History: Anxiety, Bipolar, Depression Lives: [facility] - he was living at [facility] but he recently left and went home Smoking Status: Current every day smoker Tobacco Use: Cigarettes Alcohol: Heavy Drugs: None - *Family History Maternal History Items: Cancer, Diabetes Paternal History Items: Cancer Review of Systems Constitutional: Reports: Weakness. Denies: Chills, Fever, Weight Change Eyes: Denies: Blurred vision HEENT: Denies: Difficulty Swallowing, Head Aches, Sinus Congestion, Sinus Drainage, Sore Throat Cardiovascular: Reports: Edema - chronic. Denies: Chest Pain, Light Headedness, Palpitations Respiratory: Denies: Cough, Hemoptysis, Shortness of breath at rest, Sputum production Gastrointestinal: Denies: Abdominal Pain, Constipation, Diarrhea, Nausea, Vomiting Genitourinary: Denies: Dysuria, Retention Musculoskeletal: Denies: Joint Pain, Joint Tenderness Skin: Reports: Wounds - he has some abrasions due to recent falls ....one is in the center of the forehead. Denies: Jaundice, Rash Neurological: Denies: Double vision, Slurred speech, Focal weakness, Headaches, Numbness, Tingling, Tremor, Seizures Psychiatric: Denies: Anxiety, Depression, Homicidal Ideations, Suicidal Ideations Endocrine: Denies: Change in Body Habitus Hematologic/ Lymphatic: Denies: Easy Bruising, Easy Bleeding, Hx of blood clot VTE Information - Inpt Only VTE Present on Admission: No VTE Mechan Device Prophylaxis: Knee High NEHAL Hose VTE Pharm Prophylaxis ordered?: Yes Patient Problems: Active and Suspected Problems (This Medical Record has been edited. Action required.) Hyponatremia (Acute) He has had this in the past and it is recurrent, more likely than not secondary to resumption of alcohol abuse. Junctional rhythm (Acute) he has a hx of AF but this time he is in junctional - Physical Exam Vitals/I&O's: Vital Signs Temp Pulse Resp BP Pulse Ox 98.4 F 61 21 H 127/59 H 98 01/08/20 20:33 01/08/20 20:33 01/08/20 20:33 01/08/20 20:33 01/08/20 20:33 Oxygen Delivery Method Room Air Weight: 206 lb 12.697 oz Body Mass Index (BMI) 28.0 Finger Stick Blood Glucose 78 General: Alert, Oriented x3, Cooperative, Well developed, Well nourished, - - he is disheveled HEENT: Atraumatic, PERRLA, EOMI, Normocephalic, - - He has a scabbed over abrasion on the forehead. Both eyes have conjunctival injection. There is no mattering of the eyelids. Oral: Moist Mucosa, No Gingival or Mucosal Lesions/ Ulcerations Neck: Supple, No JVD, No Nodes, No Nuchal Rigidity, Trachea Midline Lungs: Diminished, Rhonchi, - - No wheezes and no Rales. He is not tachypneic, has no accessory muscle use and does not have conversational dyspnea. Cardiovascular: Regular rate, No murmurs, Bradycardic, No rub noted, No Gallop, - - EKG shows junctional rhythm in the low 40s. TSH was recently normal in November Abdomen: Bowel Sounds Present, Soft, Non Tender, Non-Distended, - - the liver is large when palpated Extremities: No clubbing, No cyanosis, Capillary Refill Less than 3 Seconds, No Calf Tenderness, Edema - With hyperpigmentation of the distal lower extremities. He has several small abrasions with no evidence of cellulitis. Skin: No rashes, - - Multiple scabbed abrasions over extremities and forehead. No evidence of infection. Musculoskeletal: No Tenderness to Palpation of Joints or Extremities, No Muscle Wasting Neurological: Cranial nerves II-XII grossly intact, Neuro grossly intact Psych/Mental Status: Normal Affect, Appropriate Laboratory Results 01/08/20 19:05: WBC 7.3, RBC 3.72 L, Hgb 12.7 L, Hct 36.6 L, MCV 98.4 H, MCH 34.1 H, MCHC 34.7, RDW Std Deviation 46.5 H, RDW Coeff of Fredi 13.0, Plt Count 210, MPV 9.5, Immature Gran % (Auto) 0.300, Neut % (Auto) 58.7, Lymph % (Auto) 29.9, [facility] % (Auto) 9.6, Eos % (Auto) 1.1, Baso % (Auto) 0.4, Absolute Neuts (auto) 4.3, Absolute Lymphs (auto) 2.18, Nucleated RBC % 0 01/08/20 19:05: Sodium 118 L*, Potassium 4.4, Chloride 82 L, Carbon Dioxide 26.0, Anion Gap 10, BUN 3 L, Creatinine 0.74, Estim Creat Clear Calc 74.37, Est GFR (MDRD) Af Amer 133, Est GFR (MDRD) Non-Af 110, BUN/Creatinine Ratio 4.0 L, Glucose 95, Calcium 8.3 L, Total Bilirubin 0.60, AST 45 H, ALT 46, Alkaline Phosphatase 107, Troponin I 0.017, Total Protein 7.4, Albumin 3.5, Globulin 3.9, Albumin/Globulin Ratio 0.9 01/08/20 19:05: Ethyl Alcohol 129.0 Assessment/Plan All Active Problems (This Medical Record has been edited. Action required.) Hyponatremia (Acute) Junctional rhythm (Acute) Multiple falls (Acute) Alcohol withdrawal (Resolved) Nondisp fx proximal phalanx lesser toe right foot w/routine heal (Resolved) Pneumonia (Resolved) Severe sepsis (Resolved) Impressions 1. Hyponatremia-suspect secondary to beer potomania. The BUN/creat ratio is only 4 and the MM are moist. He has had this in the past. He is on no diuretics. It is possible the hyponatremia could be related to a lung CA however, the most likely culprit would be small cell and this has an appearance on CT of a NSC malignancy. Urine sodium and creatinine have been ordered and also a urine and serum osmolality. TSH in November was within normal limits. Will order and AM cortisol to r/o adrenal insufficiency. Place on 1,000 cc/day fluid restriction. 2. long hx of ETOH abuse 3. Left upper lobe anterior segment lung mass-status post CT-guided biopsy on 01/02/2020. Pathology is pending. He will follow-up with Dr. Santino Rodarte going forward. 4. Junctional rhythm 5. History of paroxysmal atrial fibrillation 6. Tobacco dependence 7. Bipolar disorder 8. Chronic medical conditions which include: Hypertension/CAD/macrocytic anemia/venous insufficiency/stasis hyperpigmentation of the lower extremities/hyperlipidemia/peripheral vascular disease/BPH/history of esophageal stenosis. These conditions complicate care, management and prognosis. Consult the [place] logistics planner to arrange for him to go back to [facility] or another ECF at [place]. Recheck lab in the AM Obtain records from [facility] about what day he left and any lab he may have had just prior to [place]. Did not discuss advance directives because he is intoxicated and hyponatremic with encephalopathy and not competent at this time to make that decision Neuro checks and seizure precautions Admitted to [facility] on tele. Inpatient E&M: 59859 Init Hosp L2
[2020-01-08 21:17] VITALS: BMI 27.3
[2020-01-08 21:25] VITALS: PULSE 53
[2020-01-08 21:26] VITALS: BP 126/53; PULSE 60; RESP 18; TEMP 36.6; O2SAT 99
[2020-01-08 21:27] VITALS: BMI 27.4
[2020-01-08 21:59] LABS: Osmolality, Serum 266 mOsm/KG (280-301)
[2020-01-08 22:02] LABS: Magnesium 1.7 mg/dL (1.6-2.6); Phosphorus 3.2 mg/dL (2.5-4.9)
[2020-01-08] MEDS: NYSTATIN 500,000 UNIT/5 ML UDC 500000 UNIT PO (22:46)
[2020-01-08] MEDS: Menthol/Lanolin/Calamine/Znox 113 GM Tube 1 APPLIC TOPICAL (22:48)
[2020-01-08 23:18] LABS: Osmolality, Urine 83 mOsm/KG
[2020-01-08 23:29] LABS: Urine Sodium 14 mmol/L (Not Establ.)
[2020-01-09] VITALS (12 sets, daily range): BP systolic 114–146; BP diastolic 58–69; PULSE 44–67; RESP 18–22; TEMP 36.8–37.6; O2SAT 94–100
[2020-01-09] MEDS: Budesonide Respules 0.5 MG/2 ML AMPUL.NEB. INHALATION ×2 (03:52→18:52)
[2020-01-09] MEDS: Albuterol 2.5 MG/3 ML VIAL.NEB. INHALATION ×2 (03:52→18:52)
[2020-01-09 06:22] LABS: Anion Gap 8 (5-15); BUN 5 mg/dL (7-18); BUN/Creat Ratio 9.1 RATIO (10-20); Calcium,Total 8.2 mg/dL (8.5-10.1); Chloride 89 mmol/L (98-107); Creatinine, Serum 0.55 mg/dL (0.70-1.30); EST Glomerular Filtration Rate 157 mL/min (>60); Est Glom Filt Rate - Afr Amer 190 mL/min (>60); Estimated Creatinine Clearance 74.37 ml/min; Glucose 114 mg/dL (74-106); Magnesium 1.8 mg/dL (1.6-2.6); Phosphorus 3.4 mg/dL (2.5-4.9); Sodium Level 125 mmol/L (136-145)
[2020-01-09] MEDS: Enoxaparin 40 MG/0.4 ML Syringe SC (08:37)
--- NOTE | 2020-01-09 09:10 | PN_ITS ---
Patient Problems: Active and Suspected Problems (This Medical Record has been edited. Action required.) Hyponatremia (Acute) He has had this in the past and it is recurrent, more likely than not secondary to resumption of alcohol abuse. Subjective: Chief complaint: Follow-up after admission for acute on chronic hyponatremia and metabolic encephalopathy. Patient seen and examined. No acute events overnight. This morning, he is alert and oriented x3. He knows his full name, date of , today's date and he was where he is at. He denied any significant complaints. He did mention that he has been drinking for 50 years and when he stops drinking abruptly, he does not experience any withdrawal symptoms. His last drink was yesterday morning. His vitals are stable. - Physical Exam Vitals/I&O's: Vital Signs Temp Pulse Resp BP Pulse Ox 99.7 F H 67 18 137/63 H 97 01/09/20 08:23 01/09/20 08:23 01/09/20 08:23 01/09/20 08:23 01/09/20 08:23 Oxygen Delivery Method Room Air Weight: 198 lb 3.129 oz Body Mass Index (BMI) 27.3 Finger Stick Blood Glucose 78 Intake and Output for Last 24 Hours 01/07/20 01/08/20 01/09/20 23:59 23:59 23:59 Intake Total 1100 / 1100 100 / 100 Output Total 600 / 600 Balance 500 / 500 100 / 100 General: Alert, No apparent distress HEENT: Atraumatic, PERRLA, EOMI, Normocephalic Oral: Moist Mucosa, No Gingival or Mucosal Lesions/ Ulcerations Neck: Supple, No JVD, Negative Carotid Bruits, Trachea Midline, Thyroid Normal Size and Texture Lungs: Clear to auscultation, Normal air movement, No rhonchi, No wheeze, No rales, Diminished Cardiovascular: Regular rate, Regular Rhythm, Normal S1, Normal S2, PMI Normal Abdomen: Bowel Sounds Present, Soft, Non Tender, Non-Distended, No Hepato- splenomegaly Extremities: No clubbing, No cyanosis, No edema Skin: No rashes, No breakdown Lymphatic: No Cervical, Supraclavicular, or Inguinal Adenopathy Neurological: Cranial nerves II-XII grossly intact, Motor Exam 5/5 strength thr oughout Psych/Mental Status: Normal Affect, Appropriate, Alert and oriented to time, place, person, mood and affect Laboratory Results 01/08/20 19:05: WBC 7.3, RBC 3.72 L, Hgb 12.7 L, Hct 36.6 L, MCV 98.4 H, MCH 34.1 H, MCHC 34.7, RDW Std Deviation 46.5 H, RDW Coeff of Fredi 13.0, Plt Count 210, MPV 9.5, Immature Gran % (Auto) 0.300, Neut % (Auto) 58.7, Lymph % (Auto) 29.9, [place] % (Auto) 9.6, Eos % (Auto) 1.1, Baso % (Auto) 0.4, Absolute Neuts (auto) 4.3, Absolute Lymphs (auto) 2.18, Nucleated RBC % 0 01/08/20 19:05: Sodium 118 L*, Potassium 4.4, Chloride 82 L, Carbon Dioxide 26.0, Anion Gap 10, BUN 3 L, Creatinine 0.74, Estim Creat Clear Calc 74.37, Est GFR (MDRD) Af Amer 133, Est GFR (MDRD) Non-Af 110, BUN/Creatinine Ratio 4.0 L, Glucose 95, Calcium 8.3 L, Total Bilirubin 0.60, AST 45 H, ALT 46, Alkaline Phosphatase 107, Troponin I 0.017, Total Protein 7.4, Albumin 3.5, Globulin 3.9, Albumin/Globulin Ratio 0.9 01/08/20 19:05: Ethyl Alcohol 129.0 01/08/20 21:32: Serum Osmolality 266 L 01/08/20 21:32: Phosphorus 3.2, Magnesium 1.7 01/08/20 22:50: Urine Osmolality 83, Ur Random Sodium 14, Urine Creatinine 14.20 01/09/20 05:37: Sodium 125 L, Potassium 4.0, Chloride 89 L, Carbon Dioxide 28.0, Anion Gap 8, BUN 5 L, Creatinine 0.55 L, Estim Creat Clear Calc 74.37, Est GFR (MDRD) Af Amer 190, Est GFR (MDRD) Non-Af 157, BUN/Creatinine Ratio 9.1 L, Glucose 114 H, Calcium 8.2 L, Phosphorus 3.4, Magnesium 1.8 01/09/20 05:37: Cortisol 19.40 Clinical Impression(s) from Imaging Studies Brain CT 01/08/20 18:59 IMPRESSION: 1. Normal CT brain. 2. Bilateral proptosis. Ophthalmology referral is advised. Electronically Signed: Kaceyjocelin Aure, at 19:35 EDT Tel , Service support , Cervical Spine CT 01/08/20 19:01 IMPRESSION: 1. No acute osseous injury. No change since prior. Electronically Signed: Mattie Looney, at 19:38 EDT Tel , Service support , Chest X-Ray 01/08/20 19:22 IMPRESSION: Unremarkable chest radiograph. Electronically Signed: Mattie Looney at 19:42 EDT Tel , Service support , Current Medications Acetaminophen (Tylenol) 650 mg PO Q6H PRN PRN PRN Reason: Pain Score 1-10/Temp > 100.7 F Albuterol Sulfate (Ventolin Aerosols) 2.5 mg INHALATION Q2H PRN PRN PRN Reason: Shortness of Breath/Wheezing Last Admin: 01/09/20 03:52 Dose: 2.5 mg Documented by: Budesonide (Pulmicort Aerosol) 0.5 mg INHALATION Q12H.RT SAMI Last Admin: 01/09/20 03:52 Dose: 0.5 mg Documented by: Calamine/Phenol (Calmoseptine Ointment) 1 applic TOPICAL BID SAMI; Protocol Last Admin: 01/08/20 22:48 Dose: 1 applicatio Documented by: Cholecalciferol (Vitamin D (25mcg)) 2,000 unit PO DAILY [facility] Last Admin: 01/09/20 08:16 Dose: 2,000 unit Documented by: Enoxaparin Sodium (Lovenox) 40 mg SC DAILY [facility] Last Admin: 01/09/20 08:37 Dose: 40 mg Documented by: Sodium Chloride () 250 mls @ 15 mls/hr IV .[id number] PRN PRN Reason: Saline Flush Sodium Chloride () 250 mls @ 15 mls/hr IV .[id number] PRN PRN Reason: Additional IVPB Infusion Magnesium Hydroxide (Milk Of Magnesia) 30 ml PO DAILY PRN PRN PRN Reason: Constipation Melatonin (Melatonin) 3 mg PO QHS PRN PRN PRN Reason: INSOMNIA Nicotine (Nicoderm Cq (Pbkc)) 21 mg TRANSDERM. DAILY SAMI Last Admin: 01/09/20 08:37 Dose: 21 mg Documented by: Nystatin (Nystatin) 500,000 unit PO 4X/DAY [facility]I Last Admin: 01/08/20 22:46 Dose: 500,000 unit Documented by: Ondansetron HCl (Zofran) 4 mg IV Q8H PRN PRN PRN Reason: NAUSEA/VOMITING Prochlorperazine Edisylate (Compazine Iv) 5 mg IV Q4H PRN PRN PRN Reason: Breakthrough nausea/vomiting Senna/Docusate Sodium (Senokot-S, Gianna-Colace) 2 tablet PO BID PRN PRN PRN Reason: Constipation Sodium Chloride () 10 - 40 ml IV UD PRN PRN Reason: SALINE FLUSH Medical Necessity - Tobacco Use Smoking Status: Current every day smoker Tobacco Use: Cigarettes Assessment/Plan All Active Problems (This Medical Record has been edited. Action required.) Hyponatremia (Acute) This is a 69 years old male patient presented to the emergency room stating that he is not able to take care of himself, has been falling frequently and was covered in stool and urine at his house after he left [facility] and he was found to have acute to chronic hyponatremia and acute alcohol intoxication. #1 acute on chronic hyponatremia: This is attributed to beer potomania. Patient still has been running usually in the high 120s to low 130s. Admission sodium was 119, came down to 118 and today sodium is 125. Patient received IV fluids with normal saline. Today, he is alert and oriented x3. Hemodynamically stable. CT scan brain showed no acute findings. CT scan cervical spine showed no acute fractures or dislocation. LFT was unremarkable. Serum phosphorus, magnesium and potassium were normal. Serum cortisol were normal. Plan to continue same treatment, repeat BMP tomorrow morning. #2 acute alcohol intoxication: Blood alcohol level was 129 on admission. At this time, no evidence of acute withdrawal. Plan to monitor, start folic acid, thiamine, multivitamins. #3 physical debility/functional decline/frequent falls/unable to take care of himself: Patient signed himself out of the [facility] recently. He went home and he was found covered in stool and urine. Patient stated that he is not able to take care of himself anymore and he requested placement to [facility]. PT OT consulted, case management and medical social worker as well. #4 left upper lobe lung nodule: Status post CT-guided lung biopsy. This was done on January 02, 2020, histopathology results are pending. Recommended follow- up with pulmonology as outpatient. #5 CAD status post stents: Stable, no complaints. Plan to resume home medications when home medication list updated. #6 COPD: Clinically stable, pulse ox is maintained on room air. Continue albuterol as needed, Pulmicort twice daily. #7 hypertension: Blood pressure stable, continue home medications with home medications updated. #8 benign prostatic hypertrophy: Continue home medication when home medication list updated. #9 anxiety/depression/bipolar disorder: Patient used to be on olanzapine, divalproex, plan to continue same with occasional medication as tolerated. #10 paroxysmal atrial fibrillation: Rate is stable, he is not on any medication for rate control. He is not on anticoagulation. #11 alcohol abuse/dependence: Chronic without evidence of acute alcohol withdrawal. Plan as above. #12 DVT prophylaxis: Subcu Lovenox. This note was generated with [employer] dictation software. It may contain incorrect words, spelling, and punctuation that were not noted in checking the note before signing. Inpatient E&M: 25039 Subs Hosp L2
[2020-01-09] MEDS: NYSTATIN 500,000 UNIT/5 ML UDC 500000 UNIT PO ×4 (10:06→21:14)
[2020-01-09] MEDS: Menthol/Lanolin/Calamine/Znox 113 GM Tube 1 APPLIC TOPICAL ×2 (10:06→21:14)
[2020-01-09] MEDS: tiZANidine HCl 2 MG Tablet 4 MG PO (15:32)
--- NOTE | 2020-01-09 16:34 | CASEMGMT ---
Social Work Note SW reviewed chart. Pt recently discharged from [facility] and wants to return at discharge due to not being able to care for self. SW in to speak with pt. SW introduced self and role at [facility]. Pt is alert and orientated x3. Pt states that he left [facility] about two weeks ago and states he would like to return there at discharge. SW explained that this worker will need to make new referral and pt will need pre-cert. Pt states understanding. AMY placed a call to [facility] and spoke with David in admissions. SW provided referral. David states pt will need COVID test. AMY updated charge nurse. SW faxed referral to [facility]. Plan: [facility] pending acceptance and pre-cert Verónica Jung [employer], [employer]
[2020-01-09] MEDS: Tamsulosin HCl 0.4 MG Capsule PO ×2 (18:36→18:37)
[2020-01-09] MEDS: Divalproex (ER) 500 MG Tablet PO (21:13)
[2020-01-09] MEDS: OLANZapine 10 MG Tablet 15 MG PO (21:14)
[2020-01-09] MEDS: MELATONIN 3 MG TABLET PO (21:14)
[2020-01-10] VITALS (7 sets, daily range): BP systolic 129–154; BP diastolic 60–69; PULSE 40–65; RESP 18; TEMP 36.8–37.1; O2SAT 94–100
[2020-01-10 06:25] LABS: Anion Gap 7 (5-15); BUN 7 mg/dL (7-18); BUN/Creat Ratio 11.3 RATIO (10-20); Calcium,Total 8.5 mg/dL (8.5-10.1); Chloride 94 mmol/L (98-107); Creatinine, Serum 0.62 mg/dL (0.70-1.30); EST Glomerular Filtration Rate 136 mL/min (>60); Est Glom Filt Rate - Afr Amer 165 mL/min (>60); Estimated Creatinine Clearance 74.37 ml/min; Glucose 98 mg/dL (74-106); Potassium 3.8 mmol/L (3.5-5.1); Sodium Level 132 mmol/L (136-145)
[2020-01-10] MEDS: Budesonide Respules 0.5 MG/2 ML AMPUL.NEB. INHALATION (06:57)
[2020-01-10] MEDS: Folic Acid 1 MG Tablet PO (09:13)
[2020-01-10] MEDS: Thiamine Hydrochloride 100 MG Tablet PO (09:14)
[2020-01-10] MEDS: Multivitamins,Therapeutic Tablet 1 TABLET PO (09:14)
[2020-01-10] MEDS: Finasteride 5 MG Tablet PO (09:14)
[2020-01-10] MEDS: Enoxaparin 40 MG/0.4 ML Syringe SC (09:15)
[2020-01-10] MEDS: NYSTATIN 500,000 UNIT/5 ML UDC 500000 UNIT PO (09:15)
[2020-01-10] MEDS: Menthol/Lanolin/Calamine/Znox 113 GM Tube 1 APPLIC TOPICAL (09:16)
[2020-01-10] MEDS: tiZANidine HCl 2 MG Tablet 4 MG PO (09:24)
--- NOTE | 2020-01-10 09:30 | PCM.TXEXTCAR ---
- Diet 01/08/20 21:16 Diet: Cardiac/Low Cholesterol Food consistency:: Regular Liquid Consistency:: Regular/Thin Type of Dietary Supplement:: Ensure Complete Diet Comments: low sodium - Wound(s) Rt forearm Wound Type: Skin Tear Forehead Wound Type: Abrasion - Suggestions for Active Care Change Position every (hours): 3 Hours to sit in a chair: 2 Times a day to sit in chair: 3 - Therapies Weight Bearing: Weight bearing as tolerated Physical Therapy: Eval and Treat Occupational Therapy: Eval and Treat - Allergies/Procedures Done in Hospital Allergies/Adverse Reactions: Allergies venom-honey bee [bee venom (honey bee)] Allergy (Verified 12/16/19 13:46) Anaphylaxis - Type of Care/Length of Stay Estimated LOS: Convalescent Care Less Than 30 days Type of Care Needed: Skilled Rehab Potential: Good Prognosis: Good - Additional Orders/Day of Discharge H&P will serve as current which was dated: 01/08/20 Day of Discharge: 01/10/20 - Dietary and Speech Recommendations Dietitian Recommendations/Changes: Will provide ensure pudding or magic cup w/ meals instead of ensure enlive as does not count toward fluid restriction. Rec liberalize FR as Na improves. Will change diet to Cardiac low sodium - Follow Up Care Primary Care Physician: [facility] [Primary Care Provider] - Please follow up with your Primary Care Physician in: 1-2 weeks.
--- NOTE | 2020-01-10 10:45 | PHA.DC.MR ---
Pharmacy Service has performed discharge medication reconciliation for this patient. The patient's discharge medication list was reviewed for discrepancies and discrepancies were resolved. Home Medications Budesonide Inhaler 180 mcg [Pulmicort Inhaler 180 mcg] 2 puff INHALATION BID 02/22/19 Cholecalciferol (VIT D3) [Vitamin D3] 2,000 unit PO DAILY 02/22/19 Divalproex Sodium [Divalproex Sodium ER] 500 mg PO QHS 02/22/19 Finasteride 5 mg PO DAILY 02/22/19 Melatonin [Melatin] 3 mg PO QHS 02/22/19 Olanzapine 15 mg PO QHS 02/22/19 Tamsulosin HCl [Flomax] 0.4 mg PO QHS 02/22/19 Tizanidine HCl [Zanaflex] 4 mg PO TID PRN PRN 02/22/19 Albuterol Inhaler [Ventolin Hfa] 1 - 2 puff INHALATION 4X/DAY PRN PRN 10/02/19 Ensure Plus 1 dose PO DAILY 10/02/19 Docusate Sodium [Colace] 100 mg PO BID 01/09/20 Omeprazole [Prilosec] 20 mg PO DAILY 01/09/20 Folic Acid 1 mg PO DAILY@0800 #30 tab 01/10/20 Multivitamins,Therapeutic [Multivitamin] 1 tab PO DAILYCM #30 tab 01/10/20 Thiamine Hydrochloride [Vitamin B1] 100 mg PO DAILYCM #30 tab 01/10/20
--- NOTE | 2020-01-10 10:52 | DS.PCM_ITS ---
Discharge Date and Diagnosis - Problem List Patient Problems: Active and Suspected Problems (This Medical Record has been edited. Action required.) Hyponatremia (Acute) He has had this in the past and it is recurrent, more likely than not secondary to resumption of alcohol abuse. Date of Admission: 01/08/20 Date of Discharge: 01/10/20 - Primary Discharge Diagnosis Acute Problems: Active Problems (This Medical Record has been edited. Action required.) #1 acute on chronic hyponatremia, attributed to beer potomania. #2 acute alcohol intoxication, no evidence of withdrawal. #3 physical debility/functional decline/frequent falls/unable to take care of himself. #4 left upper lobe lung nodule, status post CT-guided biopsy, recommend follow- up with pulmonology as outpatient. - Secondary Discharge Diagnosis Chronic Problems: Chronic Problems (This Medical Record has been edited. Action required.) Mass of upper lobe of left lung (Chronic) This was discovered on a CT scan of the chest in November 2019. The mass is located in the anterior segment of the left upper lobe and he followed up with Estefany Mukherjee in the pulmonary office on 12/05/2019. He had a CT guided lung bx on 01/02/20. There is no report in the EMR yet. Macrocytic anemia (Chronic) Lymphedema (Chronic) with hyperpigmentation of the distal Legs CAD (coronary artery disease) (Chronic) HTN (hypertension) (Chronic) HLD (hyperlipidemia) (Chronic) PVD (peripheral vascular disease) (Chronic) BPH without obstruction/lower urinary tract symptoms (Chronic) COLD (chronic obstructive lung disease) (Chronic) Alcohol dependence (Chronic) 15 beers daily Paroxysmal atrial fibrillation (Chronic) recommended anticoagulation as of 02/2014 - he is at increased risk for anticoagulation due to ETOH abuse and frequent falls and to non-compliance with meds and follow up Tobacco use disorder (Chronic) Stenosis of esophagus (Chronic) Hospital Course and Treatment Imaging Results: Clinical Impression(s) from Imaging Studies Brain CT 01/08/20 18:59 IMPRESSION: 1. Normal CT brain. 2. Bilateral proptosis. Ophthalmology referral is advised. Electronically Signed: Mattie Looney, at 19:35 EDT Tel , Service support , Cervical Spine CT 01/08/20 19:01 IMPRESSION: 1. No acute osseous injury. No change since prior. Electronically Signed: Mattie Looney, at 19:38 EDT Tel , Service support , Chest X-Ray 01/08/20 19:22 IMPRESSION: Unremarkable chest radiograph. Electronically Signed: Mattie Looney, at 19:42 EDT Tel , Service support , Operations: None Procedures: None Summary of Care Provided: Patient seen and examined on the day of discharge and appeared to be stable to be discharged to jail facility. He denied any complaints. He denied craving, restlessness due to cessation of alcohol drinking. He mentioned that he can cut his drinking without going into withdrawal symptoms. His vital signs are stable. The patient is a 69 year old M presented to the emergency room stating that he is not able to take care of himself at home, has been falling frequently and he was found by paramedics covered in stool and urine. He was found to have acute on chronic hyponatremia. On admission, his sodium was 119 and his hyponatremia was attributed to excessive alcohol drinking. He was given IV fluids with normal saline and his sodium improved and upon discharge, his sodium was 132. CT scan brain showed no acute findings. CT scan cervical spine showed no acute fractures or dislocations. His LFT was unremarkable. Serum phosphorus, magnesium and potassium were normal. Serum cortisol were normal. His blood alcohol level was 129 on admission. He was treated with folic acid, thiamine and multivitamins. There was no evidence of acute alcohol withdrawal during this hospital stay. Patient had left upper lobe lung nodule, underwent CT- guided biopsy on January 02, 2020 and histopathology results are pending at the time of discharge. I recommended that he follow-up with pulmonology as outpatient. If discharge, patient denied any complaints, was alert and treated x3. He denied any craving, restlessness or anxiety related to cessation of alcohol drinking. Patient was seen by PT OT and recommended placement to jail facility. Patient discharged to assisted in a stable medical condition, discharged on his previous home medications without any changes, started on folic acid, thiamine and multivitamin, recommended follow-up with PCP in 1 to 2 weeks and follow-up with pulmonology as scheduled. Patient Problems: Active and Suspected Problems (This Medical Record has been edited. Action required.) Hyponatremia (Acute) He has had this in the past and it is recurrent, more likely than not secondary to resumption of alcohol abuse. - Physical Exam Vitals/I&O's: Vital Signs Temp Pulse Resp BP Pulse Ox 98.3 F 46 L 18 129/60 H 99 01/10/20 10:45 01/10/20 10:45 01/10/20 10:45 01/10/20 10:45 01/10/20 10:45 Oxygen Delivery Method Room Air Weight: 197 lb 8.547 oz Body Mass Index (BMI) 27.3 Finger Stick Blood Glucose 78 Intake and Output for Last 24 Hours 01/08/20 01/09/20 01/10/20 23:59 23:59 23:59 Intake Total 1100 / 1100 400 / 400 Output Total 600 / 600 1350 / 1350 Balance 500 / 500 400 / 400 -1350 / -1350 General: Alert, Oriented x3, Cooperative, No apparent distress HEENT: Atraumatic, PERRLA, EOMI, Normocephalic Oral: Moist Mucosa, No Gingival or Mucosal Lesions/ Ulcerations Neck: Supple, No JVD, Negative Carotid Bruits, Trachea Midline, Thyroid Normal Size and Texture Lungs: Clear to auscultation, Normal air movement, No rhonchi, No wheeze, No rales Cardiovascular: Regular rate, Regular Rhythm, Normal S1, Normal S2, PMI Normal Abdomen: Bowel Sounds Present, Soft, Non Tender, Non-Distended, No Hepato- splenomegaly Extremities: No clubbing, No cyanosis, No edema Skin: No rashes, No breakdown Lymphatic: No Cervical, Supraclavicular, or Inguinal Adenopathy Neurological: Cranial nerves II-XII grossly intact, Neuro grossly intact Psych/Mental Status: Normal Affect, Appropriate Laboratory Results 01/09/20 18:45: COVID-19 ([facility]) Not Detected 01/10/20 05:32: Sodium 132 L, Potassium 3.8, Chloride 94 L, Carbon Dioxide 31.0, Anion Gap 7, BUN 7, Creatinine 0.62 L, Estim Creat Clear Calc 74.37, Est GFR (MDRD) Af Amer 165, Est GFR (MDRD) Non-Af 136, BUN/Creatinine Ratio 11.3, Glucose 98, Calcium 8.5 Current Medications Acetaminophen (Tylenol) 650 mg PO Q6H PRN PRN PRN Reason: Pain Score 1-10/Temp > 100.7 F Albuterol Sulfate (Ventolin Aerosols) 2.5 mg INHALATION Q2H PRN PRN PRN Reason: Shortness of Breath/Wheezing Last Admin: 01/09/20 18:52 Dose: 2.5 mg Documented by: Budesonide (Pulmicort Aerosol) 0.5 mg INHALATION Q12H.RT [facility] Last Admin: 01/10/20 06:57 Dose: 0.5 mg Documented by: Calamine/Phenol (Calmoseptine Ointment) 1 applic TOPICAL BID [facility]; Protocol Last Admin: 01/10/20 09:16 Dose: 1 applicatio Documented by: Cholecalciferol (Vitamin D (25mcg)) 2,000 unit PO DAILY [facility] Last Admin: 01/10/20 09:14 Dose: 2,000 unit Documented by: Divalproex Sodium (Depakote Er) 500 mg PO QHS [facility] Last Admin: 01/09/20 21:13 Dose: 500 mg Documented by: Enoxaparin Sodium (Lovenox) 40 mg SC DAILY [facility] Last Admin: 01/10/20 09:15 Dose: 40 mg Documented by: Finasteride (Proscar) 5 mg PO DAILY [facility] Last Admin: 01/10/20 09:14 Dose: 5 mg Documented by: Folic Acid (Folic Acid) 1 mg PO DAILY@0800 [facility] Last Admin: 01/10/20 09:13 Dose: 1 mg Documented by: Sodium Chloride () 250 mls @ 15 mls/hr IV .[id number] PRN PRN Reason: Saline Flush Sodium Chloride () 250 mls @ 15 mls/hr IV .[id number] PRN PRN Reason: Additional IVPB Infusion Magnesium Hydroxide (Milk Of Magnesia) 30 ml PO DAILY PRN PRN PRN Reason: Constipation Melatonin (Melatonin) 3 mg PO QHS PRN PRN PRN Reason: INSOMNIA Last Admin: 01/09/20 21:14 Dose: 3 mg Documented by: Multivitamins (Multivitamin) 1 tablet PO DAILYCM SAMI Last Admin: 01/10/20 09:14 Dose: 1 tablet Documented by: Nicotine (Nicoderm Cq (Pbkc)) 21 mg TRANSDERM. DAILY [facility] Last Admin: 01/10/20 09:16 Dose: 21 mg Documented by: Nystatin (Nystatin) 500,000 unit PO 4X/DAY [facility] Last Admin: 01/10/20 09:15 Dose: 500,000 unit Documented by: Olanzapine (Zyprexa) 15 mg PO QHS [facility] Last Admin: 01/09/20 21:14 Dose: 15 mg Documented by: Ondansetron HCl (Zofran) 4 mg IV Q8H PRN PRN PRN Reason: NAUSEA/VOMITING Prochlorperazine Edisylate (Compazine Iv) 5 mg IV Q4H PRN PRN PRN Reason: Breakthrough nausea/vomiting Senna/Docusate Sodium (Senokot-S, Gianna-Colace) 2 tablet PO BID PRN PRN PRN Reason: Constipation Sodium Chloride () 10 - 40 ml IV UD PRN PRN Reason: SALINE FLUSH Tamsulosin HCl (Flomax) 0.4 mg PO DAILY@1730 [facility] Last Admin: 01/09/20 18:37 Dose: 0.4 mg Documented by: Thiamine [facility] ([facility]) [facility] Last Admin: 01/10/20 09:14 Dose: 100 mg Documented by: Tizanidine HCl (Zanaflex) 4 mg PO Q8H PRN PRN PRN Reason: SPASMS/PAIN Last Admin: 01/10/20 09:24 Dose: 4 mg Documented by: Home Medications: Medications to take at Discharge Budesonide Inhaler 180 mcg [Pulmicort Inhaler 180 mcg] 2 puff INHALATION BID 02/22/19 Cholecalciferol (VIT D3) [Vitamin D3] 2,000 unit PO DAILY 02/22/19 Divalproex Sodium [Divalproex Sodium ER] 500 mg PO QHS 02/22/19 Finasteride 5 mg PO DAILY 02/22/19 Melatonin [Melatin] 3 mg PO QHS 02/22/19 Olanzapine 15 mg PO QHS 02/22/19 Tamsulosin HCl [Flomax] 0.4 mg PO QHS 02/22/19 Tizanidine HCl [Zanaflex] 4 mg PO TID PRN PRN 02/22/19 Albuterol Inhaler [Ventolin Hfa] 1 - 2 puff INHALATION 4X/DAY PRN PRN 10/02/19 Ensure Plus 1 dose PO DAILY 10/02/19 Docusate Sodium [Colace] 100 mg PO BID 01/09/20 Omeprazole [Prilosec] 20 mg PO DAILY 01/09/20 Folic Acid 1 mg PO DAILY@0800 #30 tab 01/10/20 Multivitamins,Therapeutic [Multivitamin] 1 tab PO DAILYCM #30 tab 01/10/20 Thiamine Hydrochloride [Vitamin B1] 100 mg PO DAILYCM #30 tab 01/10/20 Following Prescrptions Were Given to Patient: Folic Acid 1 mg PO DAILY@0800 #30 tab Prescription Printed Multivitamins,Therapeutic [Multivitamin] 1 tab PO DAILYCM #30 tab Prescription Printed Thiamine Hydrochloride [Vitamin B1] 100 mg PO DAILYCM #30 tab Prescription Printed [facility] [Primary Care Provider] - Please follow up with your Primary Care Physician in: 1-2 weeks. Disposition: [facility] facility Minutes spent on discharge:: 32 Patient Condition:: Stable Medical Necessity - Tobacco Use Smoking Status: Current every day smoker Tobacco Use: Cigarettes Meaningful Use Info Meaningful Use Diagnoses (Choose all that apply): None applicable Inpatient E&M: 12414 Disch Hosp
--- NOTE | 2020-01-10 10:55 | CASEMGMT ---
Social Work Note AMY received message from Cait at [facility] stating pre-cert has been obtained and pt is able to discharge today. AMY updated physician. Pt is medically cleared for discharge. AMY faxed completed discharge paperwork to [facility] including transfer to extended care facility, signed medication list, scripts, COVID results and COVID screening tool. Original in SNF folder and copy on pt's chart. AMY completed [facility]valescent [facility]000 in [facility]. Original in SNF folder and copy on pt's chart. AMY placed a call to [employer] to arrange transportation via wheelchair van. AMY spoke with Angelika at [employer]. [facility] transportation has been scheduled and once they find a transport company they will call either this worker and nurse desk. [facility] transportation is arranged between 11:00am-2:00pm and confirmation number is [phone]. AMY updated RN. AMY updated pt. Pt states that he will call his sister Hannah to update as she was supposed to bring in clothes for pt. AMY placed a call to [facility] and updated Elva who will update Jaime on transportation time. Transportation form completed and placed on SNF folder and copy on pt's chart. Plan: [facility] skilled today with [employer] transport transporting pt between 11:00am-2:00pm Verónica PATHAK, TRIM SAWYER
--- NOTE | 2020-01-10 13:05 | CASEMGMT ---
Addendum entered by Verónica Jung 01/10/20 17:53: AMY did place a call to Scarlet at [facility] and left message and provided update on pt's discharge. AMY also placed a call to pt's OANH Arvizu at [facility] and left message updating her on discharge. AMY faxed discharge paperwork to [facility]. Original Note: Social Work Note Pt's sister Luisa is at [facility] to drop pt's belongings off. AMY updated Luisa that the plan is for pt to admit to [facility] today, Luisa states understanding. Verónica Jung ROTARY ENVELOPE MACHINE OPERATOR, RING ATTACHER
== END 2020-01-10 13:22 | disposition skilled nursing facility (03) | DRG 640 ==
LOC: ED 19:09 → MS3 21:01
PROVIDERS: Admitting Provider Internal Medicine; Emergency Provider Emergency Medicine; Referring Provider Internal Medicine; Visit Provider Hospitalist
DX: E87.1 Hypo-osmolality and hyponatremia (principal); G93.41 Metabolic encephalopathy; D53.9 Nutritional anemia, unspecified; R29.6 Repeated falls; I89.0 Lymphedema, not elsewhere classified; I73.9 Peripheral vascular disease, unspecified; I25.10 Atherosclerotic heart disease of native coronary artery without angina pectoris; I10 Essential (primary) hypertension; E78.5 Hyperlipidemia, unspecified; I48.0 Paroxysmal atrial fibrillation; N40.0 Benign prostatic hyperplasia without lower urinary tract symptoms; F10.229 Alcohol dependence with intoxication, unspecified; F31.9 Bipolar disorder, unspecified; Y90.6 Blood alcohol level of 120-199 mg/100 ml; R91.1 Solitary pulmonary nodule; F41.9 Anxiety disorder, unspecified; F17.210 Nicotine dependence, cigarettes, uncomplicated; J44.9 Chronic obstructive pulmonary disease, unspecified; Z79.51 Long term (current) use of inhaled steroids; Z95.5 Presence of coronary angioplasty implant and graft; I87.2 Venous insufficiency (chronic) (peripheral); K22.2 Esophageal obstruction; Z83.3 Family history of diabetes mellitus
CPT/HCPCS: 36415; 70450; 71045; 72125; 80048; 80053; 80164; 80320; 82533; 82570; 83735; 83930; 83935; 84100; 84300; 84484; 85025; 87635; 93005; 94640; 97116; 97162; 97166; 97530; 99251; 99285; 99406; G2023; J7030; A4216; G0463; G0480; U0003

== ENCOUNTER → 2020-01-27 08:33 | Outpatient (CLI) | payer MEDICARE, MEDICAID, OTHER, SELFPAY ==
[2019-12-05 08:02] VITALS: BMI 26.7
[2020-01-08 21:17] VITALS: BMI 27.3
[2020-01-26 11:15] VITALS: BP 151/64; PULSE 44; RESP 18; O2SAT 99
[2020-01-27] VITALS (9 sets, daily range): BP systolic 151–191; BP diastolic 26–95; PULSE 39–62; RESP 16–19; TEMP 36.6; O2SAT 96–100; BMI 28.6
--- NOTE | 2020-01-27 | IMM_PTH ---
PATIENT: KELLY YOU LOC: CT U#:[id number] AGE/SX: 75/M ROOM: RE01/27/[address]: PAUL Edwards : 1950 BED: DIS: SPEC #: [id number] RECD: 01/30/20 10:07 STATUS: CANDIDO JAJA #: [id number] CLARISA: 01/27/20 00:[address]: Summer Lr NP DEPT: IMMUNOHISTOCHEMISTRY RECD BY: Ginny Carmichael ENTERED: 01/30/20 10:08 SP TYPE: IMMUNO OTHR DR: [facility] Tissues: Lung, NOS Procedures: RCC (add) NAPSIN A (add) CK20 (add) CK5-6 (add) CK7 (add) CK8 (add) HEP PAR (add) TTF1 (add) Pankeratin (initial) P40 (add) PSAP (add) PHYSICIAN & INSTITUTION [place] [id number] SPECIMEN INFORMATION: Tissue Source: Left upper lobe lung mass Clinical Info: Left upper lobe lung mass Specimen Number: [id number] CPT code: 11237, 93763 x10 METHODOLOGY: Deparaffinized sections of prefer/formalin-fixed tissue or PAP/DQ stained slides are incubated with monoclonal/polyclonal antibodies/oligonucleotide probes. Localization is made via biotin free immunoperoxidase method. Appropriate controls are performed and reacted as expected. Results on target cell population are indicated in the following table: RESULTS: ANTIBODY / CLONE RESULT AE1-3 (AE1/AE3/PCK26) positive CK7 (OV-TL12/30) positive CK8 (77etjkR20) positive CK20 (KS20.8) negative TTF-1 (8G7G3/1) positive Napsin A (Rabbit Polyclonal) positive HepPar (OCh1E5) negative RCC (PN-15) negative PSAP (PASE/4LJ) negative CK5-6 (D5 & 1684) positive P40 (BC28) negative These tests were developed and their performance characteristics determined by [facility]. They may not have been cleared or approved by the U.S. Food and Drug Administration. The FDA has determined that such clearance or approval is not necessary. The above immunohistochemical/dualISH markers are ordered and reviewed by the Pathologist. INTERPRETATION: Left upper lobe lung mass, CT-guided core biopsy: Non-small cell carcinoma, favor adenocarcinoma, consistent with lung primary. GAYLE:frankie 01/31/20
--- NOTE | 2020-01-27 | ASPIGT_PTH ---
PATIENT: KELLY YOU LOC: [place] U#:[id number] AGE/SX: 75/M ROOM: RE01/27/[address]: PAUL Edwards : 1950 BED: DIS: SPEC #: [id number] RECD: 01/27/20 13:07 STATUS: CANDIDO JAJA #: [id number] CLARISA: 01/27/20 00:[address]: Summer Lr NP DEPT: SURGICAL PATHOLOGY RECD BY: Edgar Nails ENTERED: 01/27/20 13:07 SP TYPE: ASP RAD DONALD DR: [facility] Tissues: Lung, NOS Procedures: FNA Specimen Adequacy Special Stain Group II Surgery Specimen Level IV Imprint (control) HEADER OPERATION: ELIZABETH mass, CT-guided core biopsy PRE-OP DIAGNOSIS: ELIZABETH mass TISSUE SUBMITTED: ELIZABETH mass, CT-guided core biopsy MICROSCOPIC DIAGNOSIS ELIZABETH lung mass, CT-guided core biopsy: Non-small cell carcinoma, favor adenocarcinoma, consistent with lung primary. See comment. GAYLE:frankie 01/30/20 COMMENT The specimen is evaluated at the time of biopsy by Dr. Lara. Immediate Evaluation = Malignant cells present derived from non-small cell carcinoma. Immunohistochemistry ([id number]) supports the above diagnosis. Molecular studies on the tumor can be performed if clinically indicated. Please notify the laboratory if they are needed. Case has been reviewed in consultation with Dr. West who concurs with the above diagnosis. IDC:AM MICROSCOPIC DESCRIPTION Slides are reviewed. GROSS DESCRIPTION Received in fixative is one container labeled with the patient's name and designated left lung, CT-guided core biopsy. The specimen consists of multiple irregular fragments of castro soft tissue that in aggregate measure 0.5 x 0.5 x 0.1 cm. The specimen is totally submitted in one cassette. Two touch imprints are prepared at the time of core biopsy. / GAYLE:frankie 01/27/20 TC:0 CPT: 65307, 87066
--- NOTE | 2020-01-27 08:34 | CT_ITS ---
PROCEDURE: CT GUIDED CORE NEEDLE BIOPSY OF A left upper lobe LUNG LESION INDICATION: Male, 69 years old. LUNG BX, LEFT UPPER LOBE MASS PHYSICIAN: Dr. Mariel Meyer CONSENT: Written informed consent was obtained having explained the risks, benefits and alternatives in detail with the patient who accepted the risks and agreed to proceed. Laboratory review and clinical assessment was performed. CONSCIOUS SEDATION PROTOCOL: The Drugs used were: 2 mg Versed, IV., and 100 mcg Fentanyl, IV. The sedation time was: 23 minutes. Conscious sedation was started at 9:42 AM estimated at 10:05 AM. The conscious sedation protocol was independently monitored. RADIATION DOSAGE (If Supplied By Facility): CTDIvol = ( 18.5 ) mGy, DLP = ( ) mGycm Individualized dose optimization techniques were used for this CT. TECHNIQUE: The patient was placed in the supine position. A noncontrast CT was performed to localize the lesion in the medial aspect of the left upper lobe . The skin surface was prepped and draped in a sterile fashion. 1% lidocaine was used for local anesthesia. Using CT guidance, a 20-gauge coaxial biopsy device was advanced to the periphery of the lesion. A total of 4 core specimens were obtained. The specimens were placed in a formalin solution. A post procedure CT demonstrated no adverse sequelae or pneumothorax. The patient tolerated the procedure well without adverse event. A negative biopsy does not exclude malignancy. Further imaging or clinical followup based on patient condition and degree of clinical suspicion for malignancy. Suggest rebiopsy, if biopsy results do not match with clinical scenario. CT/Biopsy/Inj or Needle Placement IMPRESSION: 1. CT directed core needle biopsy of the left upper lobe pulmonary nodule using CT image guidance with image documentation as described. Pathology results are pending. 2. Conscious Sedation protocol utilized with independent monitoring. Electronically Signed: Emiliano Floyd, at 10:28 EDT , Service support ,
[2020-01-27 08:54] LABS: Platelet Count 295 K/mm3 (150-450)
[2020-01-27 09:09] LABS: Prothrombin Time (Protime)PT. 13.1 SECONDS (11.7-14.9)
[2020-01-27 09:10] LABS: Partial Thromboplast Time 26.5 Seconds (24.1-36.2)
[2020-01-27] MEDS: Midazolam 2 MG/2 ML Syringe IV (09:43)
[2020-01-27] MEDS: fentaNYL 100 MCG/2 ML Ampul IV ×2 (09:45→10:00)
--- NOTE | 2020-01-27 09:45 | RAD_ITS ---
STUDY: X-RAY CHEST REASON FOR EXAM: Male, 69 years old. IMMEDIATELY POST LUNG BIOPSY TECHNIQUE: AP inspiration and expiration views COMPARISON: Comparison is made with prior examination dated January 08, 2020. FINDINGS: Immediate post left upper lobe lung biopsy. No evidence of pneumothorax.. RAD/Chest Insp/Exp 2 View IMPRESSION: No evidence of pneumothorax on the immediate post left upper lobe lung biopsy. Electronically Signed: Emiliano Floyd, at 13:38 EDT , Service support ,
--- NOTE | 2020-01-27 12:00 | RAD_ITS ---
STUDY: X-RAY CHEST REASON FOR EXAM: Male, 69 years old. 2 hours post lung biopsy, left lung TECHNIQUE: AP inspiration and expiration views. COMPARISON: Comparison is made with prior study done earlier in the day. FINDINGS: Two-hour post left lung biopsy. No evidence of pneumothorax. RAD/Chest Insp/Exp 2 View IMPRESSION: No evidence of pneumothorax on the delayed two-hour post left lung biopsy radiographs. Electronically Signed: Emiliano Floyd, at 12:28 EDT , Service support ,
== END ==
PROVIDERS: Referring Provider Nurse Practitioner Acute Care; Visit Provider Nurse Practitioner Acute Care
DX: C34.92 Malignant neoplasm of unspecified part of left bronchus or lung (principal); R91.1 Solitary pulmonary nodule; I25.10 Atherosclerotic heart disease of native coronary artery without angina pectoris; I10 Essential (primary) hypertension; I89.0 Lymphedema, not elsewhere classified; E78.5 Hyperlipidemia, unspecified; I73.9 Peripheral vascular disease, unspecified; N40.0 Benign prostatic hyperplasia without lower urinary tract symptoms; I48.0 Paroxysmal atrial fibrillation; F31.9 Bipolar disorder, unspecified; F17.210 Nicotine dependence, cigarettes, uncomplicated
CPT/HCPCS: 32405; 36415; 71046; 77012; 85049; 85610; 85730; 88172; 88305; 88313; 88341; 88342; 99156; 99157; J7040; A4216

== ENCOUNTER → 2020-02-15 13:25 | Outpatient (CLI) | payer MEDICARE, MEDICAID, SELFPAY ==
[2020-02-06 15:51] VITALS: BMI 28.6
--- NOTE | 2020-02-15 13:26 | MRI_ITS ---
STUDY: MRI BRAIN WITH AND WITHOUT CONTRAST REASON FOR EXAM: Male, 69 years old. INITIAL STAGING LUNG CA -- no neuro sx TECHNIQUE: Standardized multiplanar fat and water weighted pulse sequences were obtained. IV dotarem 19ml was administered for the contrast portion of the examination. COMPARISON: 03/02/2014 FINDINGS: There is mild cerebral atrophy with widening of the extra-axial spaces and ventricular dilatation. There are a limited number of small white matter hyperintensities, distributed throughout the deep white matter tracts of the cerebral hemispheres, consistent with mild chronic white matter ischemic changes. There is no evidence for recent intracranial ischemia or other cause of cytotoxic edema on diffusion weighted imaging (DWI). Normal T2* images of the brain without demonstrated susceptibility artifact. There is no demonstrated hemosiderin stain. Normal bilateral basal ganglia. Normal thalami. There is no extra-axial fluid accumulation. Normal flow voids within the major intracranial circulation suggesting patency by spin echo criteria. Normal venous enhancement. There is no enhancing intra-axial or extra-axial abnormality. Normal sella turcica, pituitary gland, infundibular stalk, optic chiasm and hypothalamus. Normal tectal plate and pineal gland. Normal midbrain, serafin and medulla. Normal cerebellum. Normal basal cisterns. Normal bilateral temporal bones. Normal bilateral internal auditory canals. No demonstrated orbital abnormality, within the constraints of a routine brain study. Normal visualized paranasal sinuses. Normal calvarium and skull base. Normal visualized soft tissue structures. Normal visualized upper cervical spine. MRI/Brain W/WO Contrast IMPRESSION: Involutional changes of the brain, as described above. No MR evidence metastatic disease. Electronically Signed: Petr Black MD at 16:29 EDT Tel , Service support ,
== END ==
PROVIDERS: Referring Provider Internal Medicine Hematology & Oncology; Visit Provider Internal Medicine Hematology & Oncology
DX: C34.92 Malignant neoplasm of unspecified part of left bronchus or lung (principal); R91.8 Other nonspecific abnormal finding of lung field
CPT/HCPCS: 70553; A9575

== ENCOUNTER → 2020-06-27 12:46 | Outpatient (CLI) | payer MEDICARE, MEDICAID, SELFPAY ==
[2020-03-16 07:10] VITALS: BMI 30.5
[2020-05-07 14:26] VITALS: BMI 32.1
[2020-06-27 13:30] VITALS: PULSE 52; PULSE 56; PULSE 64; PULSE 71; PULSE 76; PULSE 77; PULSE 79; PULSE 80; O2SAT 90; O2SAT 91; O2SAT 92; O2SAT 93; O2SAT 94; O2SAT 95; O2SAT 96
--- NOTE | 2020-06-28 16:57 | PCM.PSN.6M ---
PSN 6 Minute Walk Test - 6 Minute Walk Test 6 Minute Walk Test: 6 Minute Walk Test PSN:6-Minute Walk Test Start: 06/27/20 13:30 Freq: Status: Active Protocol: RESP.[id number] Document 06/27/20 13:30 [facility] (Rec: 06/27/20 14:00 [facility] [id number]) 6 Minute Walk Test Date Performed 06/27/20 Time Performed 12:40 Height 6 ft Weight: 107.501 kg Weight in Pounds 237.[address]: Santino Rodarte Assistive device used: Walker Pre-test Oxygen Delivery Method Room Air Pulse Ox (%) 95 Pulse Rate (60-100 beats/min) 52 L Dyspnea Curtis Scale (0-10) 0 1st minute Oxygen Delivery Method Room Air Pulse Ox (%) 90 Pulse Rate (60-100 beats/min) 71 Dyspnea Curtis Scale (0-10) 2 Number of Rests Taken 0 2nd minute Oxygen Delivery Method Room Air Pulse Ox (%) 91 Pulse Rate (60-100 beats/min) 76 Dyspnea Curtis Scale (0-10) 3 Number of Rests Taken 0 3rd minute Oxygen Delivery Method Room Air Pulse Ox (%) 93 Pulse Rate (60-100 beats/min) 80 Dyspnea Curtis Scale (0-10) 3 Number of Rests Taken 1 Reported Symptoms Increased Work of Breathing 4th minute Oxygen Delivery Method Room Air Pulse Ox (%) 95 Pulse Rate (60-100 beats/min) 79 Dyspnea Curtis Scale (0-10) 3 Number of Rests Taken 0 Reported Symptoms Increased Work of Breathing 5th minute Oxygen Delivery Method Room Air Pulse Ox (%) 96 Pulse Rate (60-100 beats/min) 77 Dyspnea Curtis Scale (0-10) 3 Number of Rests Taken 0 Reported Symptoms Increased Work of Breathing 6th minute Oxygen Delivery Method Room Air Pulse Ox (%) 92 Pulse Rate (60-100 beats/min) 64 Dyspnea Curtis Scale (0-10) 3 Number of Rests Taken 0 Reported Symptoms Increased Work of Breathing Post-test Oxygen Delivery Method Room Air Pulse Ox (%) 94 Pulse Rate (60-100 beats/min) 56 L Dyspnea Curtis Scale (0-10) 0 Full Laps Walked 7 Partial Lap, Number of Tiles Walked 38 Total Distance Walked (ft) 451 - Interpretation Interpretation: The patient was able to ambulate 451 feet over the course of 6 minutes with the assistance of a pushed wheelchair and one break. The patient did have significant desaturation as low as 90%. No significant tachycardia was noted. These findings are consistent with a respiratory limitation to exercise tolerance. - Recommendations Recommendations: No supplemental oxygen is indicated at this time. However, patient will need to be followed closely given the level of desaturation.
== END ==
PROVIDERS: PCP Family Medicine; Referring Provider Internal Medicine Critical Care Medicine; Visit Provider Internal Medicine Critical Care Medicine
DX: R06.00 Dyspnea, unspecified (principal)
CPT/HCPCS: 94618

== ENCOUNTER → 2020-07-05 09:44 | Outpatient (CLI) | payer MEDICARE, MEDICAID, SELFPAY ==
[2020-05-07 14:26] VITALS: BMI 32.1
--- NOTE | 2020-07-06 14:27 | PFT ---
INTRODUCTION: The patient is a 70-year-old male that presents for pulmonary function studies secondary to a diagnosis of dyspnea. Respiratory therapy reports good patient effort. Bronchodilators were used during testing. INTERPRETATION: Forced expiration spirometry demonstrates the presence of a severe large airways obstructive ventilatory defect. There was a significant response to aerosolized bronchodilators noted. Spirograms are of good quality and do not plateau indicating slow emptying of the lungs. Body plethysmography was performed and revealed a decreased TLC to 4.75 L, 68% of predicted, indicative of a moderate restrictive ventilatory impairment. The remainder of the lung volumes are symmetrically reduced. Diffusing capacity by single breath CO was reduced at 79% of predicted. IMPRESSION: Partially reversible severe mixed ventilatory defect with mild reduction in diffusing capacity.
== END ==
PROVIDERS: PCP Family Medicine; Referring Provider Internal Medicine Critical Care Medicine; Visit Provider Internal Medicine Critical Care Medicine
DX: R06.00 Dyspnea, unspecified (principal)
CPT/HCPCS: 94060; 94726; 94729

== ENCOUNTER → 2020-07-17 13:30 | Outpatient (CLI) | payer MEDICARE, MEDICAID, SELFPAY ==
[2020-07-06 10:30] VITALS: BMI 32.4
--- NOTE | 2020-07-17 13:32 | CT_ITS ---
STUDY: CT ABDOMEN WITH CONTRAST REASON FOR EXAM: Male, 70 years old. Lung cancer. Response to treatment. Chemotherapy and radiation. RADIATION DOSAGE (If Supplied By Facility): CTDIvol = ( 23.89 ) mGy, DLP = ( 1953.81 ) mGycm TECHNIQUE: Transaxial images were obtained post I.V. administration of IV 100mL Isovue-370, and without oral contrast. Sagittal and coronal images were reconstructed. Individualized dose optimization techniques were used for this CT. COMPARISON: PET/CT scan, 02/21/2020. FINDINGS: There is a vague 7 mm soft tissue nodule in the right lung base best seen on image 6 of series 3 using lung windows. Lung bases are otherwise clear. The visualized portions of the heart are within normal limits. Normal liver. The gallbladder is poorly distended and contains at least one small gallstone. There is no inflammatory change or biliary ductal dilatation. Normal spleen. There is partial fatty replacement pancreas without mass. Normal bilateral adrenal glands. Subcentimeter cyst in the upper pole of the right kidney. A subcentimeter cyst is also noted in the lower pole. There is mild stranding of the perinephric fat and thickening of the pararenal fascial planes. Vascular calcifications are seen in the renal hilum. There is no renal calculi or hydronephrosis. Normal visualized right ureter. The left kidney is of normal size and cortical thickness. There are subcentimeter cyst in the mid to lower kidney. There is mild stranding of the perinephric fat and thickening imaging of the pararenal fascial planes. Vascular calcifications are seen in the hilum. There is no renal calculi or hydronephrosis. Normal visualized left ureter. Hiatal hernia. The stomach is otherwise unremarkable. Normal visualized small intestine. Normal visualized colon. The appendix is not included. There is diffuse atherosclerotic calcification of the abdominal aorta with elongation and tortuosity, but without a demonstrated aneurysm. Normal inferior vena cava. Normal retroperitoneum. There is a right-sided inguinal hernia containing adipose tissue. There is a minimal compression deformity versus Schmorl''s node in the superior endplate of L1. Normal osseous structures. CT/Abdomen WITH IV Contrast IMPRESSION: 1. Small nodule in the lower pole of the right lung. This is suspicious for metastatic disease in the setting of lung cancer. This appears unchanged in size and appearance from the PET/CT scan. 2. No evidence of abdominal metastasis. 3. Bilateral renal cysts. There is mild perinephric stranding unchanged from prior study. 4. Gallstone without acute inflammatory process. 5. Otherwise stable findings. Electronically Signed: Javier Stafford DO at 16:05 EST Tel [phone], Service support ,
--- NOTE | 2020-07-17 13:32 | CT_ITS ---
STUDY: CT CHEST WITH CONTRAST REASON FOR EXAM: Male, 70 years old. Lung cancer. Response to treatment. Status post chemotherapy and radiation. RADIATION DOSAGE (If Supplied By Facility): CTDIvol = ( 23.89 ) mGy, DLP = ( 1953.81 ) mGycm TECHNIQUE: Transaxial imaging was performed following intravenous administration of IV 100mL Isovue-370. Multiplanar coronal and sagittal images were reformatted. Individualized dose optimization techniques were used for this CT. COMPARISON: PET/CT scan, 02/21/2020. FINDINGS: The lungs are well expanded. Mild emphysematous changes. In the medial aspect of the left upper lobe. Ill-defined density which appears to measure 2.6 x 0.9 x 3 cm in greatest dimension. There is previously mentioned measured 2.4 x 2.1 cm this is site of intense uptake of radioactive GLUCOSE on the PET scan. There is a vague 7 mm nodule in the right lower lobe as seen on image 94 of series 6 which appears unchanged from previous study. No new mass or infiltrate is present. There is no demonstrated pleural abnormality. Normal heart and pericardium. There are calcifications of the coronary arteries. Stable nonspecific subcentimeter paratracheal and AP window lymphadenopathy. Normal hilar regions. Normal enhanced pulmonary arteries. There is mild atherosclerotic changes of the thoracic aorta without aneurysm or dissection. There is mild thickening of the esophageal wall from the level of the aortic arch to the GE junction. This was not previously noted may be due to prior radiation therapy.. There are multi-level degenerative changes of the thoracic spine. There is a hiatal hernia unchanged from the prior study. The upper abdomen is otherwise grossly normal. CT/Chest WITH Contrast IMPRESSION: 1. Marked decrease in the left upper lobe mass when compared to the PET/CT scan of 02/21/2020. 2. Stable small nodular density in the right lower lobe. This did not demonstrate activity on the PET CT however this may be secondary to its small size. Follow-up CT in 6 months is recommended to confirm stability. 3. Stable nonspecific mediastinal lymphadenopathy. 4. Thickening of the esophageal wall. Question post radiation therapy. 5. No other major interval change. Electronically Signed: Javier Stafford DO at 16:09 EST Tel [phone], Service support ,
[2020-07-17 13:46] LABS: CREATININE FINGERSTICK 0.9 mg/dL (0.70-1.30)
== END ==
PROVIDERS: PCP Family Medicine; Referring Provider Internal Medicine Hematology & Oncology; Visit Provider Internal Medicine Hematology & Oncology
DX: Z01.818 Encounter for other preprocedural examination (principal); C34.92 Malignant neoplasm of unspecified part of left bronchus or lung
CPT/HCPCS: 71260; 74160; Q9967

== ENCOUNTER → 2020-11-19 13:07 | Outpatient (CLI) | payer MEDICARE, MEDICAID, OTHER, SELFPAY ==
[2020-07-31 13:59] VITALS: BMI 33.7
--- NOTE | 2020-11-19 13:11 | CT_ITS ---
STUDY: CT CHEST T ABDOMEN WITH CONTRAST REASON FOR EXAM: Male, 70 years old. LUNG CANCER FOLLOW UP RESPONSE. Radiation therapy. RADIATION DOSAGE (If Supplied By Facility): CTDIvol = ( 25.9 ) mGy, DLP = ( 1946.51 ) mGycm TECHNIQUE: Transaxial imaging was performed following intravenous administration of IV 100mL Isovue-300. Individualized dose optimization techniques were used for this CT. COMPARISON: Comparison is made with prior examination dated 07/17/2020. FINDINGS: CHEST The previously seen ill-defined density in the medial aspect of the anterior left upper lobe is increased in size. It presently measures 4.1 cm x 2.9 cm. Stable mild degree of the emphysematous changes. There is a 7.7 mm nodular density in the peripheral lateral aspect of the right lower lobe. This has increased slightly in size as compared to prior study. This is seen on axial image #88. There is no demonstrated pleural abnormality. There are calcifications of the coronary arteries. There are multiple small lymph nodes within the mediastinum, which are normal in size and morphology most compatible with reactive lymph hyperplasia. Normal hilar regions. Normal unenhanced pulmonary arteries. There is atherosclerotic calcification of the aortic arch with tortuosity and elongation of the aortic arch and descending thoracic aorta. There are multi-level degenerative changes of the thoracic spine. There is no demonstrated abnormality of the visualized upper abdomen. ABDOMEN The visualized lung bases are unremarkable. The visualized portions of the heart are within normal limits. Normal liver. Small gallstones. Normal spleen. Normal pancreas. Normal bilateral adrenal glands. Normal right kidney. Normal left kidney. There is a small hiatal hernia. Normal small intestine. Normal colon. The appendix is visualized and appears normal. There is diffuse atherosclerotic calcification of the abdominal aorta and its major visceral branches, without a demonstrated aneurysm. Normal inferior vena cava. Normal retroperitoneum. Normal abdominal wall. There are mild degenerative changes of the visualized lumbar spine. CT/CT Chest AND Abd W/ Contrast IMPRESSION: Interval increase in size of the ill-defined density in the medial aspect of the anterior left upper lobe. Stable 7.7 mm nodular density in the peripheral lateral of the right lower lobe as seen on axial image #88. Small gallstones. Electronically Signed: Emiliano Floyd MD at 14:32 EDT , Service support ,
[2020-11-19 13:26] LABS: CREATININE FINGERSTICK 0.8 mg/dL (0.70-1.30); EGFR FINGERSTICK > 60.0000 mL/min (>60)
== END ==
PROVIDERS: Referring Provider Internal Medicine Hematology & Oncology; Visit Provider Internal Medicine Hematology & Oncology
DX: C34.92 Malignant neoplasm of unspecified part of left bronchus or lung (principal)
CPT/HCPCS: 71260; 74160; Q9967

== ENCOUNTER → 2020-12-03 08:37 | Outpatient (CLI) | payer MEDICARE, MEDICAID, OTHER, SELFPAY ==
[2020-07-31 13:59] VITALS: BMI 33.7
[2020-12-03 08:54] LABS: Absolute Lymphocyte Count 0.92 X10^3/uL (0.83-4.51); Absolute Neutrophil Count 4.7 X10^3/uL (2.0-7.7); Basophil# 0.03 X10^3/uL; Basophil% 0.5 % (0-1); Eosinophil# 0.12 X10^3/uL; Eosinophils% 1.9 % (0-5); Hematocrit 43.9 % (40-54); Hemoglobin 14.6 g/dL (13.0-16.5); Lymphocyte # 0.92 X10^3/ul (0.83-4.51); Lymphocyte % 14.3 % (19-41); Mean Corp Hgb Conc 33.3 g/dL (32-36); Mean Corpuscular Hgb 31.1 pg (27.0-32.0); Mean Corpuscular Volume 93.6 fL (80-94); Mean Platelet Vol. 9.8 fl (6.2-12.0); Monocyte# 0.65 X10^3/uL; Monocyte% 10.1 % (0-10); NRBC Flagged by Analyzer 0 % (0-5); Neutrophil # 4.69 X10^3/uL (2.7-7.7); Neutrophil % 72.7 % (47-70); Platelet Count 214 K/mm3 (150-450); RBC Distribution Width CV 15.5 % (11.6-14.6); RBC Distribution Width SD 53.4 fl (35.1-43.9); Red Blood Count 4.69 M/mm3 (4.6-6.2); White Blood Count 6.4 K/mm3 (4.4-11.0)
[2020-12-03 09:54] LABS: ALB/GLOB Ratio 0.8 RATIO (0.9-2.4); AST(SGOT) 14 U/L (15-37); Alanine Aminotransfer ALT/SGPT 16 U/L (16-61); Albumin, Serum 3.8 g/dL (3.2-5.0); Alkaline Phosphatase 98 U/L (45-117); Anion Gap 3 (5-15); BUN 5 mg/dL (7-18); BUN/Creat Ratio 6.8 RATIO (10-20); Calcium,Total 9.2 mg/dL (8.5-10.1); Chloride 87 mmol/L (98-107); Creatinine, Serum 0.74 mg/dL (0.70-1.30); EST Glomerular Filtration Rate 111 mL/min (>60); Est Glom Filt Rate - Afr Amer 134 mL/min (>60); Globulin 4.8 g/dL (2.2-4.2); Glucose 106 mg/dL (74-106); Potassium 4.8 mmol/L (3.5-5.1); Protein, Total 8.6 g/dL (6.4-8.2); Sodium Level 121 mmol/L (136-145)
[2020-12-03 17:36] LABS: Xtra Tube EP Lab EXTRA TUBE
== END ==
PROVIDERS: Referring Provider Internal Medicine Hematology & Oncology; Visit Provider Internal Medicine Hematology & Oncology
DX: C34.92 Malignant neoplasm of unspecified part of left bronchus or lung (principal)
CPT/HCPCS: 36415; 80053; 85025

== ENCOUNTER → 2021-04-01 12:32 | Outpatient (CLI) | payer MEDICARE, MEDICAID, SELFPAY ==
[2020-12-20 14:56] VITALS: BMI 33.6
--- NOTE | 2021-04-01 12:35 | CT_ITS ---
STUDY: CT CHEST T ABDOMEN WITH CONTRAST REASON FOR EXAM: Male, 70 years old. FOLLOW UP LUNG CANCER RADIATION DOSAGE (If Supplied By Facility): CTDIvol = ( 24.49 ) mGy, DLP = ( 2369.77 ) mGycm TECHNIQUE: Transaxial imaging was performed following intravenous administration of IV 100mL Isovue-300. Individualized dose optimization techniques were used for this CT. COMPARISON: Comparison is made with prior study dated 11/19/2020. FINDINGS: CHEST The previously seen ill-defined density in the medial superior aspect of the left upper lobe has decreased in size. It presently measures 3.3 cm x 2.1 cm. The previously seen nodular density in the posterior lateral aspect of the right lower lobe has increased in size. It presently measures 1.1 cm x 1 cm. This is best seen on axial image #82. There is no demonstrated pleural abnormality. There are calcifications of the coronary arteries. Normal mediastinum. Normal hilar regions. Normal unenhanced pulmonary arteries. There is atherosclerotic calcification of the aortic arch . There are mild degenerative changes of the thoracic spine. ABDOMEN Normal liver. There is a solitary gallstone. Normal spleen. Normal pancreas. Normal bilateral adrenal glands. Normal right kidney. Normal left kidney. Nonspecific mild degree of bilateral perinephric stranding. Normal visualized stomach. Normal small intestine. Normal colon. The appendix is visualized and appears normal. There is diffuse atherosclerotic calcification of the abdominal aorta, without a demonstrated aneurysm. Normal inferior vena cava. Normal retroperitoneum. Diffuse bladder wall thickening. Prostatic calcifications. There is a left-sided inguinal hernia containing adipose tissue. There are diffuse degenerative changes of the visualized lumbar spine. Loss of the normal lumbar lordosis. There is a 1 cm rounded sclerotic focus in the anterior aspect of the L3 vertebrae on the right side. CT/CT Chest AND Abd W/ Contrast IMPRESSION: Nonspecific bilateral perinephric stranding. Diffuse bladder wall thickening. 1 cm well-defined sclerotic focus along the anterior aspect of the L3 vertebrae on the right side. Electronically Signed: Emiliano Floyd MD at 14:45 EDT , Service support ,
[2021-04-01 14:30] LABS: CREATININE FINGERSTICK 0.6 mg/dL (0.70-1.30); EGFR FINGERSTICK > 60.0000 mL/min (>60)
== END ==
PROVIDERS: PCP Internal Medicine; Referring Provider Internal Medicine Hematology & Oncology; Visit Provider Internal Medicine Hematology & Oncology
DX: C34.92 Malignant neoplasm of unspecified part of left bronchus or lung (principal)
CPT/HCPCS: 71260; 74160; Q9967

== ENCOUNTER 2021-05-20 14:32 | Inpatient (IN) | payer OTHER, MEDICARE, MEDICAID, SELFPAY ==
[2021-05-20] VITALS (10 sets, daily range): BP systolic 157–186; BP diastolic 64–98; PULSE 44–98; RESP 11–32; TEMP 36.1–37.6; O2SAT 91–98; BMI 34.8; BMI 33.0
--- NOTE | 2021-05-20 14:51 | EKG12_ITS ---
Test Reason : FALL Blood Pressure : / mmHG Vent. Rate : 047 BPM Atrial Rate : 277 BPM P-R Int : 000 ms QRS Dur : 100 ms QT Int : 468 ms P-R-T Axes : 000 -37 062 degrees QTc Int : 414 ms Junctional rhythm Left axis deviation Abnormal ECG When compared with ECG of 08-JAN-2020 19:36, Junctional rhythm has replaced Atrial fibrillation Criteria for Septal infarct are no longer Present Confirmed by YESENIA RUBIN, CLARITZA ([id number]), city editor KENAN RIDLEY ([id number]) on 05/27/2021 10:25:56 A M Referred By: ELIJAH Confirmed By:AMBER PATTERSON MD
--- NOTE | 2021-05-20 14:51 | RAD_ITS ---
STUDY: X-RAY CHEST REASON FOR EXAM: Male, 71 years old. Bilateral rales and expiratory wheezing TECHNIQUE: PA and lateral views of the chest. COMPARISON: 01/27/2020 FINDINGS: The lungs are clear and expanded. There is no demonstrated pleural abnormality. There is moderate cardiac enlargement. Normal mediastinum and sofía. Normal visualized pulmonary arteries. Normal visualized aortic arch and descending thoracic aorta. Normal visualized thoracic spine. Normal visualized ribs, clavicles, and shoulders. There is no demonstrated abnormality of the visualized soft tissue structures of the upper abdomen. RAD/Chest PA and Lateral IMPRESSION: No active disease. Electronically Signed: Petr Black MD at 16:41 EDT Tel , Service support ,
--- NOTE | 2021-05-20 14:52 | EDS_ITS ---
HPI HPI - Fall History of Present Illness Chief Complaint: Fall Informant: patient Occured/Mechanism Occurred: Hours Mechanism/Context: Yes same level fall and Yes other see narrative below Narrative: States legs gave out Pain/Injury Worsened by: Nothing Relieved by: Nothing Associated Symptoms Associated Symptoms: Negative for Parasthesias, Weakness, Loss of function, Inability to ambulate, Loss of consciousness and Amnesia Length of loss of consciousness: Not applicable Narrative Narrative: Patient is an elderly male with multiple medical problems who is not a good informant. He does live alone. He is scheduled for an outpatient CT by pain management for an injection in the upcoming future. He states his legs gave out. He denies bowel bladder dysfunction. He denies saddle paresthesia or anesthesia. He denies radicular pain. He states he did not hit his head. He denies neck pain. His low back pain is no worse than normal. He denies black or maroon-colored stool. He denies dysuria, frequency, urgency or hematuria. He does report intermittent wheezing. He denies shortness of breath or chest pain. He denies headache, visual, ocular auditory symptoms. He denies rhinorrhea, congestion or postnasal drainage. He denies sore throat. He denies any ill contacts. He l denies loss of taste or smell. Prior similar symptoms: No Recent Illness/Hospitalization: No PFSH PFSH Medical History BPH without obstruction/lower urinary tract symptoms CAD (coronary artery disease) COLD (chronic obstructive lung disease) GERD (gastroesophageal reflux disease) History of COPD HLD (hyperlipidemia) HTN (hypertension) Lymphedema Nodule of right lung Nondisp fx proximal phalanx lesser toe right foot w/routine heal Paroxysmal atrial fibrillation PVD (peripheral vascular disease) Stenosis of esophagus Tobacco use disorder Home Medications cholecalciferol (vitamin D3) 2,000 unit PO DAILY 02/22/19 [History Last Taken Unknown] divalproex 500 mg PO QHS 02/22/19 [History Last Taken Unknown] finasteride 5 mg PO DAILY 02/22/19 [History Last Taken Unknown] melatonin 3 mg PO QHS 02/22/19 [History Last Taken Unknown] tamsulosin 0.4 mg PO QHS 02/22/19 [History Last Taken Unknown] tizanidine 4 mg PO TID PRN PRN 02/22/19 [History Last Taken 10/02/19 06:00] omeprazole 20 mg PO DAILY 01/09/20 [History Last Taken Unknown] folic acid 1 mg PO DAILY@0800 #30 tab 01/10/20 [Rx Last Taken Unknown] multivitamin with folic acid 1 tab PO DAILYCM #30 tab 01/10/20 [Rx Last Taken Unknown] thiamine HCl (vitamin B1) 100 mg PO DAILYCM #30 tab 01/10/20 [Rx Last Taken Unknown] bisacodyl 10 mg RECTAL DAILY PRN 05/07/20 [History Last Taken Unknown] divalproex 250 mg tablet,extended release 24 hr 250 mg PO DAILY tab 07/06/20 [History Last Taken Unknown] magnesium hydroxide 400 mg/5 mL oral suspension 5 ml PO DAILY PRN 07/06/20 [History Last Taken Unknown] mineral oil 118 ml RC .prn ml 07/06/20 [History Last Taken Unknown] olanzapine 10 mg tablet 10 mg PO DAILY 07/06/20 [History Last Taken Unknown] olanzapine 2.5 mg tablet 2.5 mg PO DAILY 07/06/20 [History Last Taken Unknown] Lactobacillus acidophilus 1 ea PO DAILY 07/31/20 [History Last Taken Unknown] docusate sodium 100 mg PO BID 07/31/20 [History Last Taken Unknown] albuterol sulfate 90 mcg/actuation aerosol inhaler 1 - 2 puff INHALATION 4X/DAY PRN PRN #8.5 g 01/04/21 [Rx Last Taken Unknown] budesonide 180 mcg/actuation breath activated powder inhaler 2 inh INHALATION BID #1 ea 01/04/21 [Rx Last Taken Unknown] prednisone 10 mg tablet 10 mg PO QDAY #30 tab 01/04/21 [Rx Last Taken Unknown] hydrocodone-acetaminophen 1 tab PO PRN PRN 05/20/21 [History Last Taken Unknown] Allergy/AdvReac Type Severity Reaction Status Date / Time venom-honey bee Allergy Severe Anaphylaxis Verified 05/20/21 14:42 [bee venom (honey bee)] Family History Father Prostate cancer Mother Lung cancer Surgical History History of heart artery stent History of hernia repair Social History (Updated 05/20/21 @ 14:[address] Jeffery Saab MD) household members: none Smoking Status: Current every day smoker tobacco type: cigarettes Tobacco: How many years used: 50 second hand exposure: No quit status: has quit before alcohol intake: current details: NON ALCOHOL BEER substance use type: does not use caffeine: Yes Type: coffee Number of servings: 2 luis/rastafarian: None seatbelt use: always do you feel safe at home: Yes ROS ROS ED Constitutional Constitutional ED: Denies chills, fever(s), subjective or sweats Eyes Eyes: Denies blurry vision, change in vision or diplopia ENT ENT ED: Denies ear pain, rhinorrhea or sore throat Cardiovascular Cardiovascular: Denies chest pain, orthopnea, palpitations, paroxysmal nocturnal dyspnea or racing heartbeat Respiratory/Chest Respiratory/Chest: Reports other Details: Patient states is never been tested for obstructive sleep apnea. ; Denies cough, dyspnea, dyspnea on exertion, orthopnea, paroxysmal nocturnal dyspnea or sputum Gastrointestinal Gastrointestinal: Denies abdominal pain, constipation, diarrhea, melena, nausea or vomiting Genitourinary Genitourinary ED: Denies dysuria, hematuria or urinary frequency Musculoskeletal Musculoskeletal: Reports back pain; Denies arthralgias, myalgias or neck pain Integumentary Denies abscess or rash Neurologic Neurologic: Denies headache(s), paresthesias or weakness Endocrine Endocrinology: Denies polydipsia, polyphagia or polyuria Hematologic/Lymphatic Hematologic/Lymphatic: Denies easy bleeding or easy bruising EXAM Physical Exam Const Vital Signs: 05/20/21 14:37 05/20/21 15:07 Temperature 97.3 F L Temperature Source Temporal Pulse Rate 52 L 54 L Respiratory Rate 11 L 22 H Respiratory Effort Normal Non-Labored Respiratory Depth Normal Respiratory Pattern Normal Blood Pressure 162/98 H Blood Pressure Mean 119 Pulse Ox 93 Oxygen Delivery Method Nasal Cannula Oxygen Flow Rate (L/min) 2 Positive well nourished, well developed and obese General Appearance ED: well developed and NAD Nutritional Appearance: obese HEENT Reports normocephalic and TM's clear HEENT Narrative: There is no septal deviation hematoma. Posterior pharynx unremarkable. atraumatic Tympanic Membrane ED: Yes TM's clear Eyes PERRL and EOMs intact bilaterally General Eye ED: Negative for pale conjunctiva or scleral icterus Neck full ROM, no lymphadenopathy and supple General: Negative for tenderness Chest Wall inspection of chest normal Resp normal respiratory effort, no retractions and No clear to auscultation bilaterally Auscultation: rales diffuse and wheezes expiratory wheezes (Throughout) Cardio regular rate and no murmurs Rhythm: abnormal rhythm GI non-tender, non-distended and no masses Auscultation: normoactive bowel sounds Palpation: soft Back/Spine no CVA tenderness Cervical Spine: Negative for cervical spine tenderness Thoracic Spine / Upper Back: Negative for thoracic spinal tenderness Lumbar Spine / Lower Back: Negative for lumbar spinal tenderness or paraspinal muscle tenderness Extremity full ROM, normal capillary refill, no joint enlargement and no calf tenderness; Negative for normal to inspection, no clubbing, cyanosis or edema or no pedal edema Extremity Narrative: Patient with venous stasis dermatitis and pitting edema bilaterally. Per review of records he has history of lymphedema. Neuro oriented x3, CN's II-XII intact bilaterally and no focal motor deficits Sensorium / Orientation: alert Psych mental status grossly normal and thought process normal Skin Lesions: no lesions Rashes: no rashes MDM MDM MDM Narrative Medical decision making narrative: This may be due to mechanical fall, need to rule out anemia from GI bleed, cardiac ischemia, pneumonia in light of the fact that he is wheezing with rales. EKG, chest x-ray and appropriate blood work was obtained. He was treated with albuterol. Patient was reassessed his wheezing improved markedly. Patient is unable to ambulate with assistance and use of a walker with wheels. Patient is very unsteady. It is unsafe to discharge him to home. Hospitalist was paged. Lab Data Attestation: I reviewed the patient's lab results. Lab results narrative: Reveals elevated MCV. Patient is hyponatremic, which is chronic. Glucose is slightly elevated. Labs: Laboratory Results - last 24 hr 05/20/21 05/20/21 14:40 14:40 WBC 5.6 RBC 4.62 Hgb 15.2 Hct 46.0 MCV 99.6 H MCH 32.9 H MCHC 33.0 RDW Std Deviation 48.3 H RDW Coeff of Fredi 13.2 Plt Count 187 MPV 9.4 Immature Gran % (Auto) 0.500 Neut % (Auto) 68.5 Lymph % (Auto) 17.6 L [place] % (Auto) 11.4 H Eos % (Auto) 1.6 Baso % (Auto) 0.4 Absolute Neuts (auto) 3.9 Absolute Lymphs (auto) 0.99 Nucleated RBC % 0 Sodium 123 L Potassium 4.5 Chloride 88 L Carbon Dioxide 28.0 Anion Gap 7 BUN 9 Creatinine 0.78 Estim Creat Clear Calc 72.21 Est GFR (MDRD) Af Amer 125 Est GFR (MDRD) Non-Af 104 BUN/Creatinine Ratio 11.5 Glucose 135 H Calcium 8.8 Radiography Diagnostic Testing: Clinical Impression(s) from Imaging Studies Chest X-Ray 05/20/21 14:51 IMPRESSION: No active disease. Electronically Signed: Petr Black MD at 16:41 EDT Tel , Service support , 2 view chest x-ray reveals no active disease. There is evidence of cardiomegaly. There is no acute abnormality osseous structures. Chest x-ray was interpreted by me at 1636. Discharge Plan Triage Chief Complaint: Fall ED Provider: Jeffery Saab Dx/Rx/DC Orders Clinical Impression: Acute exacerbation of chronic obstructive pulmonary disease, Adult failure to thrive, Fall with injury Prescriptions: No Action divalproex 250 mg tablet extended release 24 hr 250 mg PO DAILY RF: 0 mineral oil [Rzrpc-Ho-Mhe Enema (min oil)] Enema 118 ml RC .prn RF: 0 magnesium hydroxide [Milk of Magnesia] 400 mg/5 mL suspension 5 ml PO DAILY PRN (Reason: Constipation) RF: 0 olanzapine 10 mg tablet 10 mg PO DAILY RF: 0 olanzapine 2.5 mg tablet 2.5 mg PO DAILY RF: 0 budesonide 180 mcg/actuation aerosol powdr breath activated 2 inh inhalation BID Qty: 1 RF: 5 albuterol sulfate 90 mcg/actuation HFA aerosol inhaler 1 - 2 puff inhalation 4X/DAY PRN PRN (Reason: Sob &/Or Wheezing) Qty: 8.5 RF: 5 prednisone 10 mg tablet 10 mg PO QDAY Qty: 30 RF: 0 divalproex 500 MG tablet extended release 24 hr 500 mg PO QHS RF: 0 cholecalciferol (vitamin D3) 1,000 UNIT tablet 2,000 unit PO DAILY RF: 0 melatonin 3 MG tablet 3 mg PO QHS RF: 0 tamsulosin 0.4 MG capsule 0.4 mg PO QHS RF: 0 finasteride 5 MG tablet 5 mg PO DAILY RF: 0 tizanidine 4 MG capsule 4 mg PO TID PRN PRN (Reason: Muscle Spasm) RF: 0 omeprazole 20 MG capsule 20 mg PO DAILY RF: 0 thiamine HCl (vitamin B1) 100 MG tablet 100 mg PO DAILYCM Qty: 30 RF: 0 folic acid 1 MG tablet 1 mg PO DAILY@0800 Qty: 30 RF: 0 multivitamin with folic acid 1 TABLET tablet 1 tab PO DAILYCM Qty: 30 RF: 0 bisacodyl 10 MG suppository 10 mg RECTAL DAILY PRN (Reason: Constipation) RF: 0 docusate sodium 100 MG capsule 100 mg PO BID RF: 0 Lactobacillus acidophilus 1 EACH capsule 1 ea PO DAILY RF: 0 hydrocodone-acetaminophen 5-325 mg tablet 1 tab PO PRN PRN (Reason: Pain) RF: 0 Primary Care Provider: Inocente Nichols Referrals: Inocente Nichols MD [Primary Care Provider] - Disposition Disposition: Acute Care Hospital [facility]
[2021-05-20] MEDS: Albuterol 2.5 MG/3 ML VIAL.NEB. INHALATION ×3 (15:06)
[2021-05-20 15:10] LABS: Absolute Lymphocyte Count 0.99 X10^3/uL (0.83-4.51); Absolute Neutrophil Count 3.9 X10^3/uL (2.0-7.7); Basophil# 0.02 X10^3/uL; Basophil% 0.4 % (0-1); Eosinophil# 0.09 X10^3/uL; Eosinophils% 1.6 % (0-5); Hemoglobin 15.2 g/dL (13.0-16.5); Lymphocyte # 0.99 X10^3/ul (0.83-4.51); Lymphocyte % 17.6 % (19-41); Mean Corpuscular Hgb 32.9 pg (27.0-32.0); Mean Corpuscular Volume 99.6 fL (80-94); Mean Platelet Vol. 9.4 fl (6.2-12.0); Monocyte# 0.64 X10^3/uL; Monocyte% 11.4 % (0-10); NRBC Flagged by Analyzer 0 % (0-5); Neutrophil # 3.86 X10^3/uL (2.7-7.7); Neutrophil % 68.5 % (47-70); Platelet Count 187 K/mm3 (150-450); RBC Distribution Width CV 13.2 % (11.6-14.6); RBC Distribution Width SD 48.3 fl (35.1-43.9); Red Blood Count 4.62 M/mm3 (4.6-6.2); White Blood Count 5.6 K/mm3 (4.4-11.0)
[2021-05-20 15:17] LABS: Anion Gap 7 (5-15); BUN 9 mg/dL (7-18); BUN/Creat Ratio 11.5 RATIO (10-20); Calcium,Total 8.8 mg/dL (8.5-10.1); Chloride 88 mmol/L (98-107); Creatinine, Serum 0.78 mg/dL (0.70-1.30); EST Glomerular Filtration Rate 104 mL/min (>60); Est Glom Filt Rate - Afr Amer 125 mL/min (>60); Estimated Creatinine Clearance 72.21 ml/min; Glucose 135 mg/dL (74-106); Potassium 4.5 mmol/L (3.5-5.1); Sodium Level 123 mmol/L (136-145)
--- NOTE | 2021-05-20 18:36 | HP.PCM.HOS_ITS ---
Documented by User: Elliott CORRALES 05/20/21 19:04 HPI - General General Date of Admission: 05/20/21 HPI Narrative KELLY YOU is a 71-year-old male who presents to the ED with [address] [place] [address] on 05/20/2020 with a chief complaint of fall and shortness of breath. Patient reports that earlier today he was walking to his kitchen and felt lightheaded and fell to the ground. Patient denies any loss of consciousness or any head trauma. Patient does report of ongoing right-sided hip pain and ongoing shortness of breath. Patient denies any symptoms prior to fall report feeling normal. Denies chest pain, palpitations, hemoptysis, sputum production, fever, chills, N/V/D. Vital signs in the ED are temp of 97.3 ?F, HR 54, BP of 160/98, RR of 22 and is currently satting 93% on 2 L via nasal cannula. Chest x-ray obtained in the ED did not demonstrate any evidence of an acute cardiopulmonary process. CBC does not demonstrate a leukocytosis and is otherwise unremarkable. BMP does demonstrate hyponatremia with a sodium of 123, however is otherwise unremarkable. [facility] Medical History BPH without obstruction/lower urinary tract symptoms CAD (coronary artery disease) COLD (chronic obstructive lung disease) GERD (gastroesophageal reflux disease) History of COPD HLD (hyperlipidemia) HTN (hypertension) Lymphedema Nodule of right lung Nondisp fx proximal phalanx lesser toe right foot w/routine heal Paroxysmal atrial fibrillation PVD (peripheral vascular disease) Stenosis of esophagus Tobacco use disorder Home Medications cholecalciferol (vitamin D3) 2,000 unit PO DAILY 02/22/19 [History Last Taken 05/20/21] divalproex 500 mg PO QHS 02/22/19 [History Last Taken 05/19/21] finasteride 5 mg PO DAILY 02/22/19 [History Last Taken 05/20/21] melatonin 3 mg PO QHS 02/22/19 [History Last Taken 05/19/21] tamsulosin 0.4 mg PO QHS 02/22/19 [History Last Taken 05/19/21] tizanidine 4 mg PO TID PRN PRN 02/22/19 [History Last Taken 05/19/21] omeprazole 20 mg PO DAILY 01/09/20 [History Last Taken 05/19/21] folic acid 1 mg PO DAILY@0800 #30 tab 01/10/20 [Rx Last Taken 05/20/21] multivitamin with folic acid 1 tab PO DAILYCM #30 tab 01/10/20 [Rx Last Taken 05/20/21] thiamine HCl (vitamin B1) 100 mg PO DAILYCM #30 tab 01/10/20 [Rx Last Taken 05/20/21] divalproex 250 mg tablet,extended release 24 hr 250 mg PO DAILY tab 07/06/20 [History Last Taken 05/20/21] olanzapine 10 mg tablet 10 mg PO DAILY 07/06/20 [History Last Taken 05/19/21] olanzapine 2.5 mg tablet 2.5 mg PO DAILY 07/06/20 [History Last Taken 05/19/21] albuterol sulfate 90 mcg/actuation aerosol inhaler 1 - 2 puff INHALATION 4X/DAY PRN PRN #8.5 g 01/04/21 [Rx Last Taken 05/20/21] budesonide 180 mcg/actuation breath activated powder inhaler 2 inh INHALATION BID #1 ea 01/04/21 [Rx Last Taken 05/20/21] hydrocodone-acetaminophen 1 tab PO PRN PRN 05/20/21 [History Last Taken 05/20/21] Allergy/AdvReac Type Severity Reaction Status Date / Time venom-honey bee Allergy Severe Anaphylaxis Verified 05/20/21 14:42 [bee venom (honey bee)] Family History Father Prostate cancer Mother Lung cancer Surgical History History of heart artery stent History of hernia repair Social History household members: none Smoking Status: Current every day smoker tobacco type: cigarettes Tobacco: How many years used: 50 second hand exposure: No quit status: has quit before alcohol intake: current details: NON ALCOHOL BEER substance use type: does not use caffeine: Yes Type: coffee Number of servings: 2 luis/adventism: None seatbelt use: always do you feel safe at home: Yes ROS Constitutional Constitutional: Reports weakness; Denies anorexia, change in weight, chills, fatigue, fever(s), malaise, night sweats or other Eyes Eyes: Denies blurry vision, change in eye color, change in vision, discharge from eye(s), double vision, erythema, eye pain, loss of vision or other ENT HEENT: Denies abnormal hearing, dysphagia, ear pain, epistaxis, headache(s), hearing loss, nasal congestion, nasal discharge, post nasal drip, sinus pr essure, sore throat or other Cardiovascular Cardiovascular: Denies chest pain, claudication, dyspnea on exertion, edema, lightheadedness, orthopnea, palpitations, paroxysmal nocturnal dyspnea, rapid heart rate, syncope or other Respiratory/Chest Respiratory/Chest: Reports shortness of breath with exertion; Denies cough, dyspnea, excessive phlegm production, hemoptysis, productive cough, shortness of breath at rest, wheezing or other Gastrointestinal Gastrointestinal: Denies abdominal pain, coffee ground emesis, constipation, diarrhea, dyspepsia, hematemesis, hematochezia, loose stools, melena, nausea, vomiting or other Genitourinary Genitourinary: Denies burning urination, difficulty urinating, dysuria, hematuria, nocturia, urinary frequency, urinary hesitancy, urinary incontinence, urinary urgency or other Musculoskeletal Musculoskeletal: Reports other Details: Patient report of right-sided hip pain. ; Denies arthralgias, back pain, joint pain, joint stiffness, joint swelling, myalgias or neck pain Neurologic Neurologic: Denies abnormal gait, abnormal speech, confusion, disequilibrium, dizziness, focal weakness, headache(s), numbness, paresthesias, seizure-like activity, seizures, syncope, tingling, tremor(s) or other Psychiatric Psychiatric: Denies anxiety, depression, homicidal ideation, suicidal ideation or other Endocrine Endocrinology: Denies change in body appearance, cold intolerance, excessive sweating, heat intolerance, polydipsia, polyuria or other Hematologic/Lymphatic Hematologic/Lymphatic: Denies anemia, easy bleeding, easy bruising, lymphadenopathy or other Allergic/Immunologic Allergic/Immunologic: Denies rhinitis, hives, eczemia, asthma or other Vital Signs Vital Signs Vital Signs: 05/20/21 14:37 05/20/21 15:07 Temperature 97.3 F L Temperature Source Temporal Pulse Rate 52 L 54 L Respiratory Rate 11 L 22 H Respiratory Effort Normal Non-Labored Respiratory Depth Normal Respiratory Pattern Normal Blood Pressure 162/98 H Blood Pressure Mean 119 Pulse Ox 93 Oxygen Delivery Method Nasal Cannula Oxygen Flow Rate (L/min) 2 Weight Weight: 256 lb 9.889 oz Body Mass Index (BMI) 34.8 Physical Exam Const alert and oriented x3 General Appearance: cooperative HEENT normocephalic, head/scalp atraumatic and hearing grossly normal bilaterally Eyes PERRL, EOMs intact bilaterally and conjunctivae normal Neck no lymphadenopathy, supple and no JVD Resp Effort and Inspection: abnormal respiratory pattern, tachypneic, respiratory distress and labored Auscultation: crackles, rales and diminished lung sounds Cardio regular rate, regular rhythm, no murmurs and no JVD GI normal to inspection, nondistended, normoactive bowel sounds, soft to palpation, non-tender and non-distended Extremity Extremity Narrative: Left lower extremity swelling Skin no rashes or lesions noted, no wounds, skin turgor normal and no jaundice Neuro CN's II-XII intact bilaterally Psych affect normal Results Lab / Micro Data Result Diagrams: 05/20/21 14:40 05/20/21 14:40 Labs: Laboratory Results - last 24 hr 05/20/21 14:40: WBC 5.6, RBC 4.62, Hgb 15.2, Hct 46.0, MCV 99.6 H, MCH 32.9 H, MCHC 33.0, RDW Std Deviation 48.3 H, RDW Coeff of Fredi 13.2, Plt Count 187, MPV 9.4, Immature Gran % (Auto) 0.500, Neut % (Auto) 68.5, Lymph % (Auto) 17.6 L, [place] % (Auto) 11.4 H, Eos % (Auto) 1.6, Baso % (Auto) 0.4, Absolute Neuts (auto) 3.9, Absolute Lymphs (auto) 0.99, Nucleated RBC % 0 05/20/21 14:40: Sodium 123 L, Potassium 4.5, Chloride 88 L, Carbon Dioxide 28.0, Anion Gap 7, BUN 9, Creatinine 0.78, Estim Creat Clear Calc 72.21, Est GFR (MDRD) Af Amer 125, Est GFR (MDRD) Non-Af 104, BUN/Creatinine Ratio 11.5, Glucose 135 H, Calcium 8.8 Radiology Impression Chest X-Ray 05/20/21 14:51 IMPRESSION: No active disease. Electronically Signed: Petr Black MD at 16:41 EDT Tel , Service support , Assessment & Plan Assessment/Plan (1) Acute exacerbation of chronic obstructive pulmonary disease: (2) Fall with injury: PLAN: Patient is a 71-year-old male presents the ED at [facility] on 05/20/2021 with a chief complaint of lightheadedness, fall and shortness of breath. Patient will be admitted for management of COPD exacerbation. 1) acute on chronic COPD exacerbation Patient is tachypneic in the ED however is satting 93% on 2 L via nasal cannula. Denies any shortness of breath, hemoptysis or sputum production prior to coming to the ED. Patient does have a COPD history and is on albuterol and budesonide at home. Chest x-ray does not demonstrate any acute cardiopulmonary process. CBC is unremarkable. Plan; admit to [facility] for monitoring and management, obtain ultrasound of the left lower extremity, initiate steroids, initiate duo nebs, albuterol as needed, O2 per protocol, hold home breathing treatments, we will not initiate antibiotics at this time as patient is afebrile,does not complain o f any infectious symptoms, and does not have a leukocytosis, as needed medications ordered. 2) fall Patient reports that he was walking to the kitchen, felt lightheaded and suffered a fall. Patient denies losing consciousness or hitting his head. Patient is complaining of ongoing hip pain. Will get additional x-rays to assess for any acute trauma. 3) bipolar disorder Unknown subtype, will continue patient's Zyprexa and Depakote. 4) BPH Continue Proscar and Flomax. 5) GERD Continue PPI. CODE STATUS: Full code Vaccination status: Patient endorses being fully vaccinated for COVID-19. DVT prophylaxis - Lovenox Patient seen by Elliott Valencia PA-C, under the supervision of Dr. Sarabia Documented by User: Dr. Allyson Sarabia MD 05/20/21 21:22 HPI - General General Date of Admission: 05/20/21 Date of Service: 05/20/21 [facility] Medical History BPH without obstruction/lower urinary tract symptoms CAD (coronary artery disease) COLD (chronic obstructive lung disease) GERD (gastroesophageal reflux disease) History of COPD HLD (hyperlipidemia) HTN (hypertension) Lymphedema Nodule of right lung Nondisp fx proximal phalanx lesser toe right foot w/routine heal Paroxysmal atrial fibrillation PVD (peripheral vascular disease) Stenosis of esophagus Tobacco use disorder Home Medications cholecalciferol (vitamin D3) 2,000 unit PO DAILY 02/22/19 [History Last Taken 05/20/21] divalproex 500 mg PO QHS 02/22/19 [History Last Taken 05/19/21] finasteride 5 mg PO DAILY 02/22/19 [History Last Taken 05/20/21] melatonin 3 mg PO QHS 02/22/19 [History Last Taken 05/19/21] tamsulosin 0.4 mg PO QHS 02/22/19 [History Last Taken 05/19/21] tizanidine 4 mg PO TID PRN PRN 02/22/19 [History Last Taken 05/19/21] omeprazole 20 mg PO DAILY 01/09/20 [History Last Taken 05/19/21] folic acid 1 mg PO DAILY@0800 #30 tab 01/10/20 [Rx Last Taken 05/20/21] multivitamin with folic acid 1 tab PO DAILYCM #30 tab 01/10/20 [Rx Last Taken 05/20/21] thiamine HCl (vitamin B1) 100 mg PO DAILYCM #30 tab 01/10/20 [Rx Last Taken 05/20/21] divalproex 250 mg tablet,extended release 24 hr 250 mg PO DAILY tab 07/06/20 [History Last Taken 05/20/21] olanzapine 10 mg tablet 10 mg PO DAILY 07/06/20 [History Last Taken 05/19/21] olanzapine 2.5 mg tablet 2.5 mg PO DAILY 07/06/20 [History Last Taken 05/19/21] albuterol sulfate 90 mcg/actuation aerosol inhaler 1 - 2 puff INHALATION 4X/DAY PRN PRN #8.5 g 01/04/21 [Rx Last Taken 05/20/21] budesonide 180 mcg/actuation breath activated powder inhaler 2 inh INHALATION BID #1 ea 01/04/21 [Rx Last Taken 05/20/21] hydrocodone-acetaminophen 1 tab PO PRN PRN 05/20/21 [History Last Taken 05/20/21] Allergy/AdvReac Type Severity Reaction Status Date / Time venom-honey bee Allergy Severe Anaphylaxis Verified 05/20/21 14:42 [bee venom (honey bee)] Family History Father Prostate cancer Mother Lung cancer Surgical History History of heart artery stent History of hernia repair Social History household members: none Smoking Status: Current every day smoker tobacco type: cigarettes Tobacco: How many years used: 50 second hand exposure: No quit status: has quit before alcohol intake: current details: NON ALCOHOL BEER substance use type: does not use caffeine: Yes Type: coffee Number of servings: 2 luis/adventism: None seatbelt use: always do you feel safe at home: Yes Results Lab / Micro Data Result Diagrams: 05/20/21 14:40 05/20/21 14:40
--- NOTE | 2021-05-20 18:52 | VDLE_ITS ---
Reason For Study: SOB Procedure LEFT This is a venous duplex using B-mode, color GSV is normal. flow and spectral Doppler. CFV is compressible, spontaneous, phasic, Exam performed portable in patient room. competent, and demonstrates normal The exam was abbreviated due to the COVID 19 augmentation. protocol. FV is compressible, spontaneous, phasic, The exam was diagnostic. competent and demonstrates normal A preliminary report was called and/or faxed augmentation. to [facility] charge out clerk. POP V is compressible, spontaneous, phasic, competent and demonstrates normal augmentation. T/P Trunk is compressible. PTV is compressible. LT PerV is compressible. VL/Venous Duplex US, Unilateral Interpretation Summary There is no evidence of left lower extremity deep vein thrombosis. Left great s aphenous vein appears patent and compressible segmentally. Abbreviated COVID-19 protocol utilized Ordering Physician: Elliott Valencia Performed By: Zak Bautista RVT
--- NOTE | 2021-05-20 19:15 | RAD_ITS ---
STUDY: X-RAY - PELVIS AND BILATERAL HIPS REASON FOR EXAM: Male, 71 years old. Fall TECHNIQUE: AP view of the pelvis.? 2 views of the right hip, and 2 views of the left hip were obtained. COMPARISON: None. FINDINGS: There is a non-specific bowel gas pattern. Normal visualized soft tissue structures. Normal bilateral iliac wings, sacroiliac joints and visualized sacrum. Normal bilateral superior and inferior pubic rami. Normal pubic symphysis. Normal bilateral ischial tuberosities. Acute impacted fracture of the femoral neck with overlapping and varus angulation of fracture fragments.. Normal right acetabulum. Normal right hip joint. Normal visualized left femoral head. Normal left acetabulum. Normal left hip joint. RAD/Hips B/L min 2 views w/ Pelvis IMPRESSION: Acute impacted right femoral neck fracture with varus angulation of fracture fragments Electronically Signed: Ernesto Clemens MD at 20:22 EDT , Service support ,
[2021-05-20] MEDS: MethylPREDNISolone 125 MG/2 ML Vial IV (19:39)
--- NOTE | 2021-05-20 21:04 | ECHOCS_ITS ---
Reason For Study: Pre-op clearance Procedure This was a 2D Doppler, Color Flow transthoracic echocardiogram. The study was technically difficult. Contrast injection was performed. Exam performed portable in patient room. Left Ventricle Based upon the 2D echocardiographic and contrast enhanced images obtained there appears to be grossly normal left ventricular size, wall motion, and systolic function. The estimated ejection fraction is 55 %. Unable to assess diastolic dysfunction. Right Ventricle Normal RV size. Normal systolic function. Atria Normal left atrium. Normal right atrium. No doppler evidence for ASD. Mitral Valve There is no mitral annular calcification. Normal mitral valve. Trivial mitral valve insufficiency. Tricuspid Valve Normal tricuspid valve. Mild tricuspid valve insufficiency. Right ventricular systolic pressure estimated to be 68 mmHg. Aortic Valve Trisinus/trileaflet aortic valve. Moderate focal aortic valve calcification. Mild aortic stenosis. Pulmonic Valve The pulmonic valve is not well visualized. Great Vessels Normal sized aortic root. Calcified aortic root. Pericardium/Pleural No pericardial effusion. Medication Diluted definity 2.5ml given slow IV push to enhance endocardial definition. MMode/2D Measurements & Calculations LVIDd: 5.4 cm IVSd: 1.2 cm LVOT diam: 2.2 cm LVIDs: 3.1 cm LVPWd: 1.2 cm RVDd: 5.0 cm FS: 42.5 % LVOT area: 3.8 cm2 Ao root diam: 3.6 cm LAV(MOD-sp4): 94.6 ml LA A4 area: 28.7 cm2 LA dimension(2D): 5.0 cm RA A4 area: 27.1 cm2 Doppler Measurements & Calculations MV E max misty: 73.3 cm/sec Ao V2 max: 210.2 cm/sec LV V1 max: 99.6 cm/sec Ao max P.8 mmHg LV V1 max P.0 mmHg Ao V2 mean: 144.4 cm/sec LV V1 mean P.0 mmHg Ao mean P.4 mmHg LV V1 mean: 65.8 cm/sec Ao V2 VTI: 45.5 cm LV V1 VTI: 20.0 cm MIKE(I,D): 1.7 cm2 MIKE(V,D): 1.8 cm2 SV(LVOT): 76.0 ml TR max misty: 402.1 cm/sec TR max P.8 mmHg ECHO/Echo Complete W/ Contrast Interpretation Summary The study was technically difficult. Contrast injection was performed. Based upon the 2D echocardiographic and contrast enhanced images obtained there appears to be grossly normal left ventricular size, wall motion, and systolic function. The estimated ejection fraction is 55 %. Trivial mitral valve insufficiency. Mild tricuspid valve insufficiency. Moderate focal aortic valve calcification. Mild aortic stenosis. Calcified aortic root. Right ventricular systolic pressure estimated to be 68 mmHg c/w pulmonary hyper tension. Unable to assess diastolic dysfunction. Ordering Physician: Allyson Sarabia Referring Physician: Inocente Nichols M.D. Performed By: Sara Lima, RDCS, RVT
--- NOTE | 2021-05-20 21:23 | PCS.PANDOC ---
PANDEMIC DOCUMENTATION INITIATED: Date: 05/20/2021 Time: 2114
[2021-05-20 21:38] LABS: Magnesium 2.1 mg/dL (1.6-2.6); Phosphorus 3.4 mg/dL (2.5-4.9)
[2021-05-20] MEDS: Acetaminophen 325 MG Tablet 650 MG PO (21:44)
[2021-05-20] MEDS: oxyCODONE 5 MG Tablet PO (21:44)
[2021-05-20] MEDS: tiZANidine HCl 2 MG Tablet 4 MG PO (21:45)
[2021-05-20 21:52] LABS: Procalcitonin 0.04 ng/mL (0.00-0.09)
[2021-05-20] MEDS: Tamsulosin HCl 0.4 MG Capsule PO (22:17)
[2021-05-20] MEDS: Divalproex (ER) 500 MG Tablet PO (22:17)
[2021-05-20] MEDS: Ipratropium/Albuterol Sulfate 3 ML AMPUL.NEB INHALATION (23:04)
[2021-05-21] VITALS (10 sets, daily range): BP systolic 130–160; BP diastolic 43–75; PULSE 47–58; RESP 16–28; TEMP 36.4–36.6; O2SAT 91–97
[2021-05-21] MEDS: Morphine 2 MG/ML Syringe IV ×4 (00:01→20:16)
[2021-05-21] MEDS: Ipratropium/Albuterol Sulfate 3 ML AMPUL.NEB INHALATION ×5 (03:50→23:38)
[2021-05-21] MEDS: oxyCODONE 5 MG Tablet PO ×3 (03:59→22:18)
[2021-05-21] MEDS: Acetaminophen 325 MG Tablet 650 MG PO ×2 (03:59→17:24)
[2021-05-21 07:24] LABS: Absolute Lymphocyte Count 0.48 X10^3/uL (0.83-4.51); Absolute Neutrophil Count 7.4 X10^3/uL (2.0-7.7); Basophil# 0.01 X10^3/uL; Basophil% 0.1 % (0-1); Hematocrit 47.3 % (40-54); Hemoglobin 16.2 g/dL (13.0-16.5); Lymphocyte # 0.48 X10^3/ul (0.83-4.51); Lymphocyte % 5.9 % (19-41); Mean Corp Hgb Conc 34.2 g/dL (32-36); Mean Corpuscular Hgb 34.3 pg (27.0-32.0); Mean Corpuscular Volume 100.2 fL (80-94); Mean Platelet Vol. 9.8 fl (6.2-12.0); Monocyte# 0.25 X10^3/uL; Monocyte% 3.1 % (0-10); NRBC Flagged by Analyzer 0 % (0-5); Neutrophil # 7.39 X10^3/uL (2.7-7.7); Neutrophil % 90.4 % (47-70); POSITIVE DIFFERENTIAL YES; Platelet Count 190 K/mm3 (150-450); RBC Distribution Width CV 13.2 % (11.6-14.6); RBC Distribution Width SD 49.4 fl (35.1-43.9); Red Blood Count 4.72 M/mm3 (4.6-6.2); White Blood Count 8.2 K/mm3 (4.4-11.0)
--- NOTE | 2021-05-21 07:27 | PN.HOSP_ITS ---
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 Imaging studies obtained on admission demonstrated an acute impacted right femoral neck fracture with varus angulation of fracture fragments. Admitted to regular nursing floor with consultation placed to orthopedic surgery Objective Data Objective Data Vital Signs: Vital Signs Temp Pulse Resp BP Pulse Ox 97.9 F 49 L 18 160/75 H 95 05/21/21 06:02 05/21/21 06:02 05/21/21 06:02 05/21/21 06:02 05/21/21 06:02 Oxygen Flow Rate (L/min) 2 Oxygen Delivery Method Nasal Cannula Weight: 110.7 kg Body Mass Index (BMI) 33.0 Intake & Output: Intake and Output for Last 24 Hours 05/19/21 05/20/21 05/21/21 23:59 23:59 23:59 Intake Total 250 / 250 Output Total 900 / 900 400 / 400 Balance -650 / -650 -400 / -400 Lab / Micro Data Result Diagrams: 05/21/21 06:25 05/21/21 06:25 Labs: Laboratory Results - last 24 hr 05/20/21 14:40: WBC 5.6, RBC 4.62, Hgb 15.2, Hct 46.0, MCV 99.6 H, MCH 32.9 H, MCHC 33.0, RDW Std Deviation 48.3 H, RDW Coeff of Fredi 13.2, Plt Count 187, MPV 9.4, Immature Gran % (Auto) 0.500, Neut % (Auto) 68.5, Lymph % (Auto) 17.6 L, [place] % (Auto) 11.4 H, Eos % (Auto) 1.6, Baso % (Auto) 0.4, Absolute Neuts (auto) 3.9, Absolute Lymphs (auto) 0.99, Nucleated RBC % 0 05/20/21 14:40: Sodium 123 L, Potassium 4.5, Chloride 88 L, Carbon Dioxide 28.0, Anion Gap 7, BUN 9, Creatinine 0.78, Estim Creat Clear Calc 72.21, Est GFR (MDRD) Af Amer 125, Est GFR (MDRD) Non-Af 104, BUN/Creatinine Ratio 11.5, Glucose 135 H, Calcium 8.8 05/20/21 14:40: Procalcitonin 0.04 05/20/21 14:40: B-Natriuretic Peptide 205.0 H 05/20/21 14:40: Phosphorus 3.4, Magnesium 2.1 05/20/21 14:40: Ethyl Alcohol 57.0 Micro: Microbiology 05/20/21 23:10 Interface Orders Respiratory Panel (PCR) - Final Radiography Diagnostic Testing: Radiology Impression Chest X-Ray 05/20/21 14:51 IMPRESSION: No active disease. Electronically Signed: Petr Black MD at 16:41 EDT Tel , Service support , Hip/Pelvis X-Ray 05/20/21 19:15 IMPRESSION: Acute impacted right femoral neck fracture with varus angulation of fracture fragments Electronically Signed: Ernesto Clemens MD at 20:22 EDT , Service support , Physical Exam Narrative GENERAL: cooperative but on supplemental oxygen HEENT: Atraumatic; EYES; Anicteric, Normal Conjunctiva NECK; supple, normal thyroid, RESPIRATORY: Diminished to auscultation CARDIOVASCULAR: Regular S1 S2, GI: soft, normoactive bowel sounds, : No Renal angle tenderness; EXTREMITIES: No edema, no clubbing, MUSCULOSKELETAL: Right lower extremity shortened NEURO: Awake; no lateralizing signs. 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 Imaging studies obtained on admission demonstrated an acute impacted right femoral neck fracture with varus angulation of fracture fragments. Admitted to regular nursing floor with consultation placed to orthopedic surgery 1. Nonsyncopal fall with right femoral neck fracture ?Patient has been admitted to regular nursing floor currently being managed with pain meds immobilization and consult placed to Dr. Plascencia with orthopedic surgery. Patient has significant comorbidities including COPD of which she is currently in exacerbation as well as history of lung CA. As part of her preop assessment a 2D echo was obtained which demonstrated EF of 55%. Patient was however found to have right ventricular systolic pressure of 68 mmHg. Plan is to stabilize patient from the pulmonary perspective prior to proceeding with surgery. We will therefore obtain pulmonary consultation in addition to pulmonary toileting and treatment of his COPD with acute exacerbation. This has been discussed with Dr. Moore with anesthesia 2. COPD with acute exacerbation ?Acute bronchodilator treatment in addition to supplemental oxygen systemic steroid and antibiotics 3. 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 Hyponatremia ?Patient has some chronicity with sodium level of 121 as of 12/03/2020. As part of his evaluation ordered serum and urine osmolality as well as urine electrolytes. Patient placed on fluid restriction and consult placed to nephrology 5. Tobacco dependence - Counseled on cessation, offered nicotine patch for tobacco cravings 6. Coronary artery disease ?With previous PCI 7. Depression with anxiety ?Discontinue patient home psychotropic medication 8. BPH ?Patient is on both Proscar as well as Flomax continue 9. DVT prophylaxis ?SCDs plus heparin with plans to hold a.m. dose Charges/Coding Visit Charges Inpatient E&M: 43096 Subs Hosp L3
[2021-05-21 07:43] LABS: Differential Indicated SCAN CRITERIA MET
[2021-05-21 07:56] LABS: Anion Gap 8 (5-15); BUN 11 mg/dL (7-18); BUN/Creat Ratio 13.3 RATIO (10-20); Calcium,Total 9.3 mg/dL (8.5-10.1); Chloride 88 mmol/L (98-107); Creatinine, Serum 0.83 mg/dL (0.70-1.30); EST Glomerular Filtration Rate 97 mL/min (>60); Est Glom Filt Rate - Afr Amer 117 mL/min (>60); Glucose 163 mg/dL (74-106); Potassium 4.7 mmol/L (3.5-5.1); Sodium Level 125 mmol/L (136-145)
[2021-05-21] MEDS: 0.9% Saline Lock 10 ML Syringe IV ×2 (08:09→14:34)
[2021-05-21 08:13] LABS: AST(SGOT) 19 U/L (15-37); Alanine Aminotransfer ALT/SGPT 21 U/L (16-61); Albumin, Serum 3.6 g/dL (3.2-5.0); Alkaline Phosphatase 90 U/L (45-117); Bilirubin, Direct 0.35 mg/dL (0.00-0.30); Globulin 4.6 g/dL (2.2-4.2); Protein, Total 8.2 g/dL (6.4-8.2)
[2021-05-21] MEDS: Pantoprazole Sodium 20 MG Tablet PO (08:15)
[2021-05-21] MEDS: Finasteride 5 MG Tablet PO (08:16)
[2021-05-21] MEDS: OLANZapine 10 MG Tablet PO (08:16)
[2021-05-21] MEDS: OLANZapine 2.5 MG Tablet PO (08:16)
[2021-05-21] MEDS: Divalproex (ER) 250 MG Tablet PO (08:16)
[2021-05-21 08:20] LABS: International Normalized Ratio 1.1
[2021-05-21 08:21] LABS: Partial Thromboplast Time 30.9 Seconds (24.1-36.2)
[2021-05-21 10:35] LABS: Allen Test Positive; Base Excess 3 mmol/L (-2 to +2); Bicarbonate 27.5 mmol/L (22-26); Blood Gas Specimen Type ART; FI02 21; PO2 47 mmHG (75-100); SITE L Radial; SO2 82 % (95-99); Total Carbon Dioxide 29 mmol/L; pCO2 45.1 mmHg (35-45); pH 7.39 (7.35-7.45)
--- NOTE | 2021-05-21 10:45 | CASEMGMT ---
TYE HUGO Assessment: Face to Face with pt for initial transition planning/care coordination assessment. TYE HUGO introduced self and role at [facility], pt voices understanding and consents to assessment. Pt is A/O x4 and answers all questions appropriately at this time. Pt sitting up in bed with O2 on in no distress. Respiratory in room during assessment. Care providers, pharmacy, and demographics verified/updated. Admitting Dx: COPD exac, hip fx PCP:Simone Specialists:[facility] Pharmacy: [facility] Insurance: [facility] benefit, [facility] Community Plan Prescription Benefit: yes through [facility]. LW/HPOA: Pt states he does have a LW/DPOA. He states that he belives his sister is his DPOA. He is aware that this is not on file at [facility] and he may bring in to be scanned into the chart. LNOK: Luisa Nguyen, sister Living Arrangements: Pt lives alone in a ground level apt with a ramp to enter. Pt states he has company daily. Transportation: Pt reports he does not drive, states his sister or niece transports him to medical appts. DME/HHC/SNF: Pt has a walker, raised toilet seat, grab bars in the bathroom and shower chair. Pt states he has a nurse through his insurance that visits Wednesdays weekly to set up his meds and an aide M-F 12:30-3:30p. Notified Christie Jung of this. Pt niece also does his laundry for him. Pt states he has been in [place]. Pt reports he drinks 2 cans of beer per day that his sister provides him. He smokes 1 pack of cigarettes a day and denies any street drug or illegal drug use. Pt states depending on how he does with therapy, he would like to go to [place] again. Aware that therapy will evaluate him for this. Pt verbalizes understanding. Pt states no further concerns/needs. CM to follow. Advised pt to ask CM if any further question/concerns/needs arise, voices understanding. Pt Goal: [place] vs [facility] therapy Plan: SNF vs C
[2021-05-21 11:10] LABS: Troponin-I HS 28 pg/mL (3.0-78.0)
--- NOTE | 2021-05-21 12:51 | CASEMGMT ---
[facility], pt signed declination form and form faxed to the patient trf center at this time.
[2021-05-21 14:25] LABS: Osmolality, Serum 277 mOsm/KG (280-301)
[2021-05-21] MEDS: 0.9% Normal Saline 1,000 ML 75 ML IV (14:27)
--- NOTE | 2021-05-21 15:31 | CON.PCM_ITS ---
Assessment & Plan Assessment/Plan (1) Acute exacerbation of chronic obstructive pulmonary disease: (2) Alcohol dependence: (3) Adult failure to thrive: (4) Fall with injury: (5) PVD (peripheral vascular disease): (6) Tobacco use disorder: (7) Closed subcapital fracture of right femur: PLAN: Natural history of the disease process and treatment options were discussed the patient. Patient has medical comorbidities most significant for COPD and currently in the midst of an exacerbation. He also has electrolyte imbalances that need to be corrected. Plan was to proceed with surgical intervention in a timely manner however, based on medical comorbidities patient is not yet been cleared for surgery. Treatment options were discussed the patient including operative and nonoperative treatments. We discussed hemiarthroplasty, surgical fixation and nonoperative treatment. Hemiarthroplasty was recommended as an appropriate treatment. Total replacement is not recommended for this patient based on medical comorbidities and fracture pattern. Risk and benefits of the procedure discussed the patient including but not limited to blood loss, DVTs, PEs, nervous damage, infection, the risk of anesthesia include loss of life. Patient understands his medical comorbidities appointment increased risk for all loss of life. Based on his prefall function he is not a good candidate for nonoperative treatment/palliative care. He was living alone with assistance and ambulating with a walker. Patient is agreeable to treatment plan at this time and would like to move forward tomorrow. We will plan to make him n.p.o. at midnight. Antibiotics will be ordered on-call to the operating room. Patient is consented at this time. [facility] Office: HPI Consult Data Date of Consult: 05/21/21 HPI Narrative HPI Narrative: KELLY YOU, is a 71 M with numerous medical comorbidities and current COPD exacerbation who presents today with right hip pain. Patient was short of breath yesterday and ended up being lightheaded. He fell in his home. He was brought to the hospital for COPD exacerbation. He was admitted for COPD exacerbation. Upon admission he was complaining of right hip pain and radiographs were performed. Currently he reports 5 out of 10 hip pain relieved by the morphine and rest worse with motion and activity. He denies any associated numbness and tingling. Pain is in the right hip and thigh. Prior to the fall patient did live at home he is walker dependent and does have an aide that comes to his house Thursday through Thursday to help with dressing and bathing. [facility] Medical History (Updated 05/21/21 @ 15:[address] Ras Plascencia MD) Anxiety Bipolar disorder BPH without obstruction/lower urinary tract symptoms CAD (coronary artery disease) Cancer COLD (chronic obstructive lung disease) COPD (chronic obstructive pulmonary disease) Dyspnea GERD (gastroesophageal reflux disease) High cholesterol History of COPD HLD (hyperlipidemia) HTN (hypertension) Irregular heartbeat Lymphedema Nodule of right lung Nondisp fx proximal phalanx lesser toe right foot w/routine heal Paroxysmal atrial fibrillation PVD (peripheral vascular disease) Smoker Stenosis of esophagus Tobacco use disorder Home Medications cholecalciferol (vitamin D3) 2,000 unit PO DAILY 02/22/19 [History Last Taken 05/20/21] divalproex 500 mg PO QHS 02/22/19 [History Last Taken 05/19/21] finasteride 5 mg PO DAILY 02/22/19 [History Last Taken 05/20/21] melatonin 3 mg PO QHS 02/22/19 [History Last Taken 05/19/21] tamsulosin 0.4 mg PO QHS 02/22/19 [History Last Taken 05/19/21] tizanidine 4 mg PO TID PRN PRN 02/22/19 [History Last Taken 05/19/21] omeprazole 20 mg PO DAILY 01/09/20 [History Last Taken 05/19/21] folic acid 1 mg PO DAILY@0800 #30 tab 01/10/20 [Rx Last Taken 05/20/21] multivitamin with folic acid 1 tab PO DAILYCM #30 tab 01/10/20 [Rx Last Taken 05/20/21] thiamine HCl (vitamin B1) 100 mg PO DAILYCM #30 tab 01/10/20 [Rx Last Taken 05/20/21] divalproex 250 mg tablet,extended release 24 hr 250 mg PO DAILY tab 07/06/20 [History Last Taken 05/20/21] olanzapine 10 mg tablet 10 mg PO DAILY 07/06/20 [History Last Taken 05/19/21] olanzapine 2.5 mg tablet 2.5 mg PO DAILY 07/06/20 [History Last Taken 05/19/21] albuterol sulfate 90 mcg/actuation aerosol inhaler 1 - 2 puff INHALATION 4X/DAY PRN PRN #8.5 g 01/04/21 [Rx Last Taken 05/20/21] budesonide 180 mcg/actuation breath activated powder inhaler 2 inh INHALATION BID #1 ea 01/04/21 [Rx Last Taken 05/20/21] hydrocodone-acetaminophen 1 tab PO PRN PRN 05/20/21 [History Last Taken 05/20/21] Allergy/AdvReac Type Severity Reaction Status Date / Time venom-honey bee Allergy Severe Anaphylaxis Verified 05/20/21 14:42 [bee venom (honey bee)] Family History Father Prostate cancer Mother Lung cancer Surgical History (Updated 05/20/21 @ 21:35 by Batsheva Woodruff) History of heart artery stent History of heart artery stent History of hernia repair Social History household members: none Smoking Status: Current every day smoker tobacco type: cigarettes Tobacco: How many years used: 50 second hand exposure: No quit status: has quit before alcohol intake: current details: NON ALCOHOL BEER substance use type: does not use caffeine: Yes Type: coffee Number of servings: 2 luis/sabianism: None seatbelt use: always do you feel safe at home: Yes ROS Constitutional Constitutional: Reports as per HPI Eyes Eyes: Reports systems reviewed and no addt'l complaints, except as documented ENT HEENT: Reports systems reviewed and no addt'l complaints, except as documented Cardiovascular Cardiovascular: Reports systems reviewed and no addt'l complaints, except as documented Respiratory/Chest Respiratory/Chest: Reports shortness of breath with exertion Gastrointestinal Gastrointestinal: Reports systems reviewed and no addt'l complaints, except as documented Genitourinary Genitourinary: Reports systems reviewed and no addt'l complaints, except as documented Integumentary Integumentary: Reports as per HPI Neurologic Neurologic: Reports as per HPI Physical Exam Const alert and oriented x3 General Appearance: disheveled Nutritional Appearance: overweight HEENT normocephalic Head and Scalp: normocephalic Mouth: oral and palatal mucosa normal Eyes PERRL Neck no JVD Resp Resp Narrative: Patient is on oxygen. GI GI Narrative: Obese Extremity Extremity Narrative: Right lower extremity: Skin clean, dry, and intact. Limb is shortened and externally rotated Motor is intact dorsiflexion, EHL and plantar flexion. Sensation is intact to light touch saphenous, erin,l superficial peroneal, deep peroneal and tibial distributions. Calves are soft and supple. Patient does have evidence of peripheral vascular disease with scaly thickened skin distally. Skin Skin Narrative: Distal extremities exhibit scaly thickened skin consistent with peripheral vascular disease. Psych mental status grossly normal Lab / Micro Data Result Diagrams: 05/21/21 06:25 05/21/21 06:25 Labs: Laboratory Results - last 24 hr 05/20/21 14:40: Procalcitonin 0.04 05/20/21 14:40: B-Natriuretic Peptide 205.0 H 05/20/21 14:40: Phosphorus 3.4, Magnesium 2.1 05/20/21 14:40: Ethyl Alcohol 57.0 05/21/21 06:25: WBC 8.2, RBC 4.72, Hgb 16.2, Hct 47.3, MCV 100.2 H, MCH 34.3 H, MCHC 34.2, RDW Std Deviation 49.4 H, RDW Coeff of Fredi 13.2, Plt Count 190, MPV 9.8, Immature Gran % (Auto) 0.500, Neut % (Auto) 90.4 H, Lymph % (Auto) 5.9 L, [place] % (Auto) 3.1, Eos % (Auto) 0.0, Baso % (Auto) 0.1, Absolute Neuts (auto) 7.4, Absolute Lymphs (auto) 0.48 L, Nucleated RBC % 0, Differential Comment COMMENT 05/21/21 06:25: Sodium 125 L, Potassium 4.7, Chloride 88 L, Carbon Dioxide 29.0, Anion Gap 8, BUN 11, Creatinine 0.83, Estim Creat Clear Calc 87.00, Est GFR (MDRD) Af Amer 117, Est GFR (MDRD) Non-Af 97, BUN/Creatinine Ratio 13.3, Glucose 163 H, Calcium 9.3 05/21/21 06:25: PT 14.0, INR 1.1, APTT 30.9 05/21/21 06:25: Total Bilirubin 0.90, Direct Bilirubin 0.35 H, AST 19, ALT 21, Alkaline Phosphatase 90, Total Protein 8.2, Albumin 3.6, Globulin 4.6 H 05/21/21 06:25: Blood Type AB POSITIVE, Antibody Screen NEGATIVE 05/21/21 10:34: Troponin I High Sens 28 05/21/21 13:07: Serum Osmolality 277 L Micro: Microbiology 05/21/21 07:30 Nasal Secretion SARS-CoV-2 Antigen (Rapid) - Final 05/20/21 23:10 Interface Orders Respiratory Panel (PCR) - Final ABG Data ABG results: ABG 05/21/21 10:28 Specimen Type ART Sample Site L Radial pH 7.39 Bicarbonate Actual 27.5 H Total CO2 29 Base Excess 3 H O2 Saturation 82 L O2 % 21 ABG pCO2 45.1 H ABG pO2 47 L Ortiz Test Positive Radiology Impression Chest X-Ray 05/20/21 14:51 IMPRESSION: No active disease. Electronically Signed: Petr Black MD at 16:41 EDT Tel , Service support , Venous Doppler Study 05/20/21 18:52 Interpretation Summary There is no evidence of left lower extremity deep vein thrombosis. Left great saphenous vein appears patent and compressible segmentally. Abbreviated COVID-19 protocol utilized Ordering Physician: Elliott Vaelncia Performed By: Zak Bautista, RVT Hip/Pelvis X-Ray 05/20/21 19:15 IMPRESSION: Acute impacted right femoral neck fracture with varus angulation of fracture fragments Electronically Signed: Ernesto Clemens MD at 20:22 EDT , Service support , Echocardiogram 05/20/21 21:04 Interpretation Summary The study was technically difficult. Contrast injection was performed. Based upon the 2D echocardiographic and contrast enhanced images obtained there appears to be grossly normal left ventricular size, wall motion, and systolic function. The estimated ejection fraction is 55 %. Trivial mitral valve insufficiency. Mild tricuspid valve insufficiency. Moderate focal aortic valve calcification. Mild aortic stenosis. Calcified aortic root. Right ventricular systolic pressure estimated to be 68 mmHg c/w pulmonary hypertension. Unable to assess diastolic dysfunction. Ordering Physician: Allyson Sarabia Referring Physician: Inocente Nichols M.D. Performed By: Sara Lima, BONI, RVT
--- NOTE | 2021-05-21 15:56 | CASEMGMT ---
DARYL Gregory at the [facility] requesting clinicals be faxed to [phone]. Her phone is [phone]. Faxed at this time.
[2021-05-21 16:09] LABS: Urine Chloride < 10 mmol/L (Not Establ.); Urine Sodium < 5 mmol/L (Not Establ.)
--- NOTE | 2021-05-21 17:21 | CASEMGMT ---
Addendum entered by Verónica Jung 05/21/21 18:17: AMY also placed a call to [facility] and left message for Kennedy Yo, OR SW, to inquire if pt is service connected. SW waiting for call back from Kennedy. Original Note: Social Work Note SW updated that pt has CM through [facility]. AMY placed a call to [facility] and spoke with covering CM Malissa. Malissa states pt's CM is Veda Todd through [facility]. Pt has [employer], 12 meals through [facility], waiver nursing skilled services 1x a week through [place] and are trying to get Personal aide services for 9 hours a week for pt. AMY updated Malissa that pt is currently at [facility]. Malissa states she will update pt's CM Veda Todd. AMY also updated that if pt needs SNF he would prefer [facility] as he has been there before. AMY will work on SNF placement once pt has surgery. Plan: TBD Verónica Jung OSTEOPATHY DOCTOR, SURVEY QUESTIONNAIRE DESIGNER
[2021-05-21] MEDS: guaiFENesin 10 ML UDC (200MG/10ML) 20 ML PO (17:24)
[2021-05-21] MEDS: Docusate Sodium 100 MG Capsule 200 MG PO (17:24)
[2021-05-21] MEDS: Thiamine Hydrochloride 100 MG Tablet PO (17:26)
[2021-05-21 17:39] LABS: Osmolality, Urine 610 mOsm/KG
[2021-05-21 20:15] LABS: Sodium Level 125 mmol/L (136-145)
[2021-05-21] MEDS: Nystatin Powder 15gm Bottle 1 APPLIC TOPICAL (22:19)
[2021-05-21] MEDS: Menthol/Lanolin/Calamine/Znox 113 GM Tube 1 APPLIC TOPICAL (22:19)
[2021-05-21] MEDS: Tamsulosin HCl 0.4 MG Capsule PO (22:19)
[2021-05-21] MEDS: Divalproex (ER) 500 MG Tablet PO (22:28)
[2021-05-22] VITALS (24 sets, daily range): BP systolic 123–183; BP diastolic 52–142; PULSE 40–120; RESP 14–21; TEMP 36.4–36.8; O2SAT 91–100; BMI 33.0
[2021-05-22] MEDS: 0.9% Saline Lock 10 ML Syringe IV ×2 (02:07→10:00)
[2021-05-22] MEDS: Morphine 2 MG/ML Syringe IV ×4 (02:08→19:46)
[2021-05-22] MEDS: 0.9% Normal Saline 1,000 ML 75 ML IV ×2 (02:09→17:11)
[2021-05-22 06:51] LABS: Absolute Lymphocyte Count 0.44 X10^3/uL (0.83-4.51); Absolute Neutrophil Count 14.5 X10^3/uL (2.0-7.7); Basophil# 0.02 X10^3/uL; Basophil% 0.1 % (0-1); Eosinophil# 0.01 X10^3/uL; Eosinophils% 0.1 % (0-5); Hematocrit 46.2 % (40-54); Hemoglobin 15.1 g/dL (13.0-16.5); Lymphocyte # 0.44 X10^3/ul (0.83-4.51); Lymphocyte % 2.8 % (19-41); Mean Corp Hgb Conc 32.7 g/dL (32-36); Mean Corpuscular Hgb 33.2 pg (27.0-32.0); Mean Corpuscular Volume 101.5 fL (80-94); Monocyte# 0.54 X10^3/uL; Monocyte% 3.5 % (0-10); NRBC Flagged by Analyzer 0 % (0-5); Neutrophil # 14.53 X10^3/uL (2.7-7.7); Neutrophil % 93.1 % (47-70); POSITIVE DIFFERENTIAL YES; Platelet Count 167 K/mm3 (150-450); RBC Distribution Width CV 13.5 % (11.6-14.6); RBC Distribution Width SD 51.4 fl (35.1-43.9); Red Blood Count 4.55 M/mm3 (4.6-6.2); White Blood Count 15.6 K/mm3 (4.4-11.0)
[2021-05-22] MEDS: Ipratropium/Albuterol Sulfate 3 ML AMPUL.NEB INHALATION ×2 (07:01→23:37)
[2021-05-22 07:06] LABS: Differential Indicated SCAN CRITERIA MET
[2021-05-22 07:31] LABS: Anion Gap 10 (5-15); BUN 20 mg/dL (7-18); Calcium,Total 8.7 mg/dL (8.5-10.1); Chloride 93 mmol/L (98-107); EST Glomerular Filtration Rate 101 mL/min (>60); Est Glom Filt Rate - Afr Amer 122 mL/min (>60); Estimated Creatinine Clearance 90.26 ml/min; Glucose 164 mg/dL (74-106); Potassium 5.2 mmol/L (3.5-5.1); Sodium Level 126 mmol/L (136-145)
--- NOTE | 2021-05-22 07:44 | PCM.PN.HOSP ---
Subjective Subjective Patient seen had a relatively uneventful night. Seen this a.m. appears comfortable at rest. Currently without oxygen. Auscultation did not reveal any wheezes. Patient is scheduled to undergo ORIF later this afternoon Objective Data Objective Data Vital Signs: Vital Signs Temp Pulse Resp BP Pulse Ox 97.8 F 54 L 19 H 158/71 H 92 05/22/21 07:39 05/22/21 07:39 05/22/21 07:39 05/22/21 07:39 05/22/21 07:39 Oxygen Flow Rate (L/min) 2 Oxygen Delivery Method Room Air Weight: 110.7 kg Body Mass Index (BMI) 33.0 Intake & Output: Intake and Output for Last 24 Hours 05/20/21 05/21/21 05/22/21 23:59 23:59 23:59 Intake Total 250 / 250 977.5 / 977.5 Output Total 900 / 900 600 / 1000 1175 / 1175 Balance -650 / -650 -600 / -900 -197.5 / -197.5 Lab / Micro Data Result Diagrams: 05/22/21 06:28 05/22/21 06:28 Labs: Laboratory Results - last 24 hr 05/21/21 06:25: Differential Comment COMMENT 05/21/21 06:25: Sodium 125 L, Potassium 4.7, Chloride 88 L, Carbon Dioxide 29.0, Anion Gap 8, BUN 11, Creatinine 0.83, Estim Creat Clear Calc 87.00, Est GFR (MDRD) Af Amer 117, Est GFR (MDRD) Non-Af 97, BUN/Creatinine Ratio 13.3, Glucose 163 H, Calcium 9.3 05/21/21 06:25: PT 14.0, INR 1.1, APTT 30.9 05/21/21 06:25: Total Bilirubin 0.90, Direct Bilirubin 0.35 H, AST 19, ALT 21, Alkaline Phosphatase 90, Total Protein 8.2, Albumin 3.6, Globulin 4.6 H 05/21/21 06:25: Blood Type AB POSITIVE, Antibody Screen NEGATIVE 05/21/21 10:34: Troponin I High Sens 28 05/21/21 13:07: Serum Osmolality 277 L 05/21/21 14:45: Urine Osmolality 610, Ur Random Sodium < 5, Urine Potassium 68.0, Urine Chloride < 10 05/21/21 19:53: Sodium 125 L 05/22/21 06:28: WBC 15.6 H, RBC 4.55 L, Hgb 15.1, Hct 46.2, MCV 101.5 H, MCH 33.2 H, MCHC 32.7, RDW Std Deviation 51.4 H, RDW Coeff of Fredi 13.5, Plt Count 167, MPV 10.0, Immature Gran % (Auto) 0.400, Neut % (Auto) 93.1 H, Lymph % (Auto) 2.8 L, [place] % (Auto) 3.5, Eos % (Auto) 0.1, Baso % (Auto) 0.1, Absolute Neuts (auto) 14.5 H, Absolute Lymphs (auto) 0.44 L, Nucleated RBC % 0 05/22/21 06:28: Sodium 126 L, Potassium 5.2 H, Chloride 93 L, Carbon Dioxide 23.0, Anion Gap 10, BUN 20 H, Creatinine 0.80, Estim Creat Clear Calc 90.26, Est GFR (MDRD) Af Amer 122, Est GFR (MDRD) Non-Af 101, BUN/Creatinine Ratio 25.0 H, Glucose 164 H, Calcium 8.7 Micro: Microbiology 05/21/21 07:30 Nasal Secretion SARS-CoV-2 Antigen (Rapid) - Final 05/20/21 23:10 Interface Orders Respiratory Panel (PCR) - Final ABG Data ABG results: ABG 05/21/21 10:28 Specimen Type ART Sample Site L Radial pH 7.39 Bicarbonate Actual 27.5 H Total CO2 29 Base Excess 3 H O2 Saturation 82 L O2 % 21 ABG pCO2 45.1 H ABG pO2 47 L Ortiz Test Positive Radiography Diagnostic Testing: Radiology Impression Venous Doppler Study 05/20/21 18:52 Interpretation Summary There is no evidence of left lower extremity deep vein thrombosis. Left great saphenous vein appears patent and compressible segmentally. Abbreviated COVID-19 protocol utilized Ordering Physician: Elliott Valencia Performed By: Zak Bautista RVT Echocardiogram 05/20/21 21:04 Interpretation Summary The study was technically difficult. Contrast injection was performed. Based upon the 2D echocardiographic and contrast enhanced images obtained there appears to be grossly normal left ventricular size, wall motion, and systolic function. The estimated ejection fraction is 55 %. Trivial mitral valve insufficiency. Mild tricuspid valve insufficiency. Moderate focal aortic valve calcification. Mild aortic stenosis. Calcified aortic root. Right ventricular systolic pressure estimated to be 68 mmHg c/w pulmonary hypertension. Unable to assess diastolic dysfunction. Ordering Physician: Allyson Sarabia Referring Physician: Inocente Nichols M.D. Performed By: Sara Lima RDCS, RVT Physical Exam Narrative GENERAL: cooperative but on supplemental oxygen HEENT: Atraumatic; EYES; Anicteric, Normal Conjunctiva NECK; supple, normal thyroid, RESPIRATORY: Diminished to auscultation CARDIOVASCULAR: Regular S1 S2, GI: soft, normoactive bowel sounds, : No Renal angle tenderness; EXTREMITIES: No edema, no clubbing, MUSCULOSKELETAL: Right lower extremity shortened NEURO: Awake; no lateralizing signs. 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 Imaging studies obtained on admission demonstrated an acute impacted right femoral neck fracture with varus angulation of fracture fragments. Admitted to regular nursing floor with consultation placed to orthopedic surgery 1. Nonsyncopal fall with right femoral neck fracture ?Patient has been admitted to regular nursing floor currently being managed with pain meds immobilization and consult placed to Dr. Plascencia with orthopedic surgery. Patient has significant comorbidities including COPD of which she is currently in exacerbation as well as history of lung CA. As part of her preop assessment a 2D echo was obtained which demonstrated EF of 55%. Patient was however found to have right ventricular systolic pressure of 68 mmHg. Plan is to stabilize patient from the pulmonary perspective prior to proceeding with surgery. We will therefore obtain pulmonary consultation in addition to pulmonary toileting and treatment of his COPD with acute exacerbation. This has been discussed with Dr. Moore with anesthesia -05/22/2021; Patient seen had a relatively uneventful night. Seen this a.m. appears comfortable at rest. Currently without oxygen. Auscultation did not reveal any wheezes. Patient is scheduled to undergo ORIF later this afternoon 2. COPD with acute exacerbation ?Acute bronchodilator treatment in addition to supplemental oxygen systemic steroid and antibiotics 3. 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 Hyponatremia ?Patient has some chronicity with sodium level of 121 as of 12/03/2020. As part of his evaluation ordered serum and urine osmolality as well as urine electrolytes. Patient placed on fluid restriction and consult placed to nephrology -05/22/2021; sodium level up to 126. Urine sodium levels not consistent with SIADH 5. Tobacco dependence - Counseled on cessation, offered nicotine patch for tobacco cravings 6. Coronary artery disease ?With previous PCI 7. Depression with anxiety ?Discontinue patient home psychotropic medication 8. BPH ?Patient is on both Proscar as well as Flomax continue 9. DVT prophylaxis ?SCDs plus heparin with plans to hold a.m. dose Charges/Coding Visit Charges Inpatient E&M: 19986 Subs Hosp L3
[2021-05-22] MEDS: Acetaminophen 325 MG Tablet 650 MG PO ×2 (07:50→18:06)
[2021-05-22] MEDS: Pantoprazole Sodium 20 MG Tablet PO (07:50)
[2021-05-22] MEDS: Thiamine Hydrochloride 100 MG Tablet PO (07:50)
[2021-05-22] MEDS: Multivitamins,Ther W-Minerals Tablet 1 TABLET PO (07:50)
[2021-05-22] MEDS: Docusate Sodium 100 MG Capsule 200 MG PO (07:50)
[2021-05-22] MEDS: OLANZapine 2.5 MG Tablet PO (07:51)
[2021-05-22] MEDS: Finasteride 5 MG Tablet PO (07:51)
[2021-05-22] MEDS: OLANZapine 10 MG Tablet PO (07:51)
[2021-05-22] MEDS: Folic Acid 1 MG Tablet PO (07:51)
[2021-05-22] MEDS: Divalproex (ER) 250 MG Tablet PO (07:56)
--- NOTE | 2021-05-22 08:36 | CON.PCM.CC_ITS ---
Assessment & Plan Assessment/Plan (1) Closed subcapital fracture of right femur: PLAN: RECOMMENDATIONS: 1. Continue scheduled DuoNebs perioperatively. 2. Discontinue IV steroids. 3. Encourage incentive spirometer use. Recommend early mobilization postoperatively. 4. Initiate appropriate postoperative DVT prophylaxis. 5. Empiric use of BiPAP therapy may be indicated in the postoperative time period. 6. Outpatient work-up for secondary pulmonary hypertension. IMPRESSIONS: 1. Right femoral neck fracture The patient presented to the hospital after sustaining a fall and was subsequently diagnosed with a right femoral neck fracture, which will require surgical intervention. The patient has a known history of advanced age COPD and chronic tobacco dependency. He continues to smoke cigarettes daily. He does not utilize supplemental oxygen at his baseline. In addition to the aforementioned, his recent echocardiogram demonstrated evidence of pulmonary hypertension. The patient denies a history of sleep apnea. From a pulmonary surgical risk standpoint, the patient would be at increased risk for postoperative pulmonary complications, based upon the severity of his obstructive lung disease, ongoing tobacco dependency and con commitment pulmonary hypertension. Interventions that could be employed to minimize potential risks include perioperative use of bronchodilators as ordered, early mobilization postoperatively and appropriate DVT prophylaxis. I would recommend that his corticosteroids be discontinued. No additional work-up or intervention is indicated from a pulmonary perspective. He is currently maintaining appropriate oxygen saturations on room air. Postoperative BiPAP utilization would likely be beneficial. We are available if the patient experiences any issues postoperatively. 2. History of advanced stage COPD/chronic tobacco dependency I would recommend that he be continued on scheduled duo nebs as ordered. IV steroids can be discontinued. The patient is maintaining appropriate oxygen saturations on room air. I personally spent 3 minutes discussing the delet erious effects of continued tobacco use with the patient, including modalities which could be utilized to achieve a smoke-free lifestyle. 3. Pulmonary hypertension Echocardiogram demonstrated evidence of pulmonary hypertension, of unclear chronicity. This would require additional outpatient work-up to determine all of the potential contributing etiologies. Undoubtedly, the patient COPD is contributing. He would likely benefit from an outpatient sleep study as well. Recommend maintaining euvolemic state with as needed diuretic therapy as needed. 4. History of non-small cell lung cancer/coronary artery disease/BPH Complicates care, management, recovery and prognosis. Continue home medications as indicated. This note was generated with [employer] software. It may contain incorrect words, spelling, and punctuation that were not noted in checking the note before signing. HPI Consult Data Date of Consult: 05/22/21 HPI Narrative Reason for Consultation: Preoperative pulmonary evaluation HPI Narrative: The patient is a 71-year-old male, with a history as outlined below, who presented to the emergency department on May 20 with shortness of breath and mechanical fall. The patient has a known history of advanced age COPD and is currently followed by Dr. Rodarte in the pulmonary medicine clinic. The patient also has a known history of non-small cell lung cancer of the left upper lobe, for which he underwent SBRT in March 2020. Pulmonary function studies completed in June 2020 revealed evidence of a partially reversible severe mixed ventilatory defect with reduction in diffusing capacity. On presentation to the emergency department, the patient was noted to be afebrile and hemodynamically stable. Laboratory evaluation revealed no evidence of a leukocytosis. Coagulation profile was within normal limits. Chemistry profile was notable for a sodium of 123, chloride of 88 and normal creatinine. Chest x-ray demonstrated no acute cardiopulmonary process. Hip/pelvis x-ray demonstrated an acute impacted right femoral neck fracture. Left lower extremity Doppler study showed no evidence for DVT. Surface echocardiogram demonstrated normal LV size and function with an ejection fraction of 55%. Right ventricular systolic pressure was estimated to be 68 mmHg. [facility] Medical History (Updated 05/21/21 @ 15:[address] Ras Plascencia MD) Anxiety Bipolar disorder BPH without obstruction/lower urinary tract symptoms CAD (coronary artery disease) Cancer COLD (chronic obstructive lung disease) COPD (chronic obstructive pulmonary disease) Dyspnea GERD (gastroesophageal reflux disease) High cholesterol History of COPD HLD (hyperlipidemia) HTN (hypertension) Irregular heartbeat Lymphedema Nodule of right lung Nondisp fx proximal phalanx lesser toe right foot w/routine heal Paroxysmal atrial fibrillation PVD (peripheral vascular disease) Smoker Stenosis of esophagus Tobacco use disorder Home Medications cholecalciferol (vitamin D3) 2,000 unit PO DAILY 02/22/19 [History Last Taken 05/20/21] divalproex 500 mg PO QHS 02/22/19 [History Last Taken 05/19/21] finasteride 5 mg PO DAILY 02/22/19 [History Last Taken 05/20/21] melatonin 3 mg PO QHS 02/22/19 [History Last Taken 05/19/21] tamsulosin 0.4 mg PO QHS 02/22/19 [History Last Taken 05/19/21] tizanidine 4 mg PO TID PRN PRN 02/22/19 [History Last Taken 05/19/21] omeprazole 20 mg PO DAILY 01/09/20 [History Last Taken 05/19/21] folic acid 1 mg PO DAILY@0800 #30 tab 01/10/20 [Rx Last Taken 05/20/21] multivitamin with folic acid 1 tab PO DAILYCM #30 tab 01/10/20 [Rx Last Taken 05/20/21] thiamine HCl (vitamin B1) 100 mg PO DAILYCM #30 tab 01/10/20 [Rx Last Taken 08/09] divalproex 250 mg tablet,extended release 24 hr 250 mg PO DAILY tab 07/06/20 [History Last Taken 05/20/21] olanzapine 10 mg tablet 10 mg PO DAILY 07/06/20 [History Last Taken 05/19/21] olanzapine 2.5 mg tablet 2.5 mg PO DAILY 07/06/20 [History Last Taken 05/19/21] albuterol sulfate 90 mcg/actuation aerosol inhaler 1 - 2 puff INHALATION 4X/DAY PRN PRN #8.5 g 01/04/21 [Rx Last Taken 05/20/21] budesonide 180 mcg/actuation breath activated powder inhaler 2 inh INHALATION BID #1 ea 01/04/21 [Rx Last Taken 05/20/21] hydrocodone-acetaminophen 1 tab PO PRN PRN 05/20/21 [History Last Taken 05/20] Allergy/AdvReac Type Severity Reaction Status Date / Time venom-honey bee Allergy Severe Anaphylaxis Verified 05/20/21 14:42 [bee venom (honey bee)] Family History Father Prostate cancer Mother Lung cancer Surgical History (Updated 05/20/21 @ 21:35 by Batsheva Woodruff) History of heart artery stent History of heart artery stent History of hernia repair Social History household members: none Smoking Status: Current every day smoker tobacco type: cigarettes Tobacco: How many years used: 50 second hand exposure: No quit status: has quit before alcohol intake: current details: NON ALCOHOL BEER substance use type: does not use caffeine: Yes Type: coffee Number of servings: 2 luis/spiritism: None seatbelt use: always do you feel safe at home: Yes ROS Constitutional Constitutional: Denies chills, fatigue or fever(s) Eyes Eyes: Denies blurry vision or change in vision ENT HEENT: Denies dizziness, epistaxis or headache(s) Cardiovascular Cardiovascular: Denies chest pain or dizziness Respiratory/Chest Respiratory/Chest: Reports cough, dyspnea and shortness of breath with exertion Gastrointestinal Gastrointestinal: Denies abdominal pain, diarrhea, nausea or vomiting Genitourinary Genitourinary: Denies difficulty urinating Musculoskeletal Musculoskeletal: Reports joint pain Integumentary Integumentary: Denies lesions, rash or skin ulcer Neurologic Neurologic: Denies abnormal gait or abnormal speech Psychiatric Psychiatric: Denies anxiety or depression Endocrine Endocrinology: Denies fatigue Hematologic/Lymphatic Hematologic/Lymphatic: Denies easy bleeding or easy bruising Physical Exam Const alert and no apparent distress General Appearance: cooperative HEENT normocephalic and head/scalp atraumatic Eyes PERRL, EOMs intact bilaterally and conjunctivae normal Neck supple General: trachea midline Chest inspection of chest normal Resp Effort and Inspection: able to speak in complete sentences and prolonged expiratory phase Auscultation: diminished lung sounds Cardio regular rate and regular rhythm GI normal to inspection, nondistended, normoactive bowel sounds Extremity General Extremity: clubbing; Negative for edema Skin no rashes or lesions noted Neuro CN's II-XII intact bilaterally and no focal motor deficits Psych cooperative and affect normal Lab / Micro Data Result Diagrams: 05/22/21 06:28 05/22/21 06:28 Labs: Laboratory Results - last 24 hr 05/21/21 06:25: Differential Comment COMMENT 05/21/21 06:25: Blood Type AB POSITIVE, Antibody Screen NEGATIVE 05/21/21 10:34: Troponin I High Sens 28 05/21/21 13:07: Serum Osmolality 277 L 05/21/21 14:45: Urine Osmolality 610, Ur Random Sodium < 5, Urine Potassium 68.0, Urine Chloride < 10 05/21/21 19:53: Sodium 125 L 05/22/21 06:28: WBC 15.6 H, RBC 4.55 L, Hgb 15.1, Hct 46.2, MCV 101.5 H, MCH 33.2 H, MCHC 32.7, RDW Std Deviation 51.4 H, RDW Coeff of Fredi 13.5, Plt Count 167, MPV 10.0, Immature Gran % (Auto) 0.400, Neut % (Auto) 93.1 H, Lymph % (Auto) 2.8 L, [place] % (Auto) 3.5, Eos % (Auto) 0.1, Baso % (Auto) 0.1, Absolute Neuts (auto) 14.5 H, Absolute Lymphs (auto) 0.44 L, Nucleated RBC % 0 05/22/21 06:28: Sodium 126 L, Potassium 5.2 H, Chloride 93 L, Carbon Dioxide 23.0, Anion Gap 10, BUN 20 H, Creatinine 0.80, Estim Creat Clear Calc 90.26, Est GFR (MDRD) Af Amer 122, Est GFR (MDRD) Non-Af 101, BUN/Creatinine Ratio 25.0 H, Glucose 164 H, Calcium 8.7 Micro: Microbiology 05/21/21 07:30 Nasal Secretion SARS-CoV-2 Antigen (Rapid) - Final ABG Data ABG results: ABG 05/21/21 10:28 Specimen Type ART Sample Site L Radial pH 7.39 Bicarbonate Actual 27.5 H Total CO2 29 Base Excess 3 H O2 Saturation 82 L O2 % 21 ABG pCO2 45.1 H ABG pO2 47 L Ortiz Test Positive Radiology Impression Venous Doppler Study 05/20/21 18:52 Interpretation Summary There is no evidence of left lower extremity deep vein thrombosis. Left great saphenous vein appears patent and compressible segmentally. Abbreviated COVID-19 protocol utilized Ordering Physician: Elliott Valencia Performed By: Zak Bautista RVT Echocardiogram 05/20/21 21:04 Interpretation Summary The study was technically difficult. Contrast injection was performed. Based upon the 2D echocardiographic and contrast enhanced images obtained there appears to be grossly normal left ventricular size, wall motion, and systolic function. The estimated ejection fraction is 55 %. Trivial mitral valve insufficiency. Mild tricuspid valve insufficiency. Moderate focal aortic valve calcification. Mild aortic stenosis. Calcified aortic root. Right ventricular systolic pressure estimated to be 68 mmHg c/w pulmonary hypertension. Unable to assess diastolic dysfunction. Ordering Physician: Allyson Sarabia Referring Physician: Inocente Nichols M.D. Performed By: Sara Lima, BONI, RVT Charges/Coding Visit Charges Inpatient E&M: 83908 Init Hosp L3 Behavior Interventions Behavior Intervention: 54979 Smoking Cessation 3-10 min
--- NOTE | 2021-05-22 08:58 | CASEMGMT ---
Social Work Note SW received message from Jaime REYES at [place] stating pt is not service connected. Pt wouldn't be able to admit to SNF or [facility] ECF under [place]. Pt does have [facility] as secondary insurance, should be able to admit to SNF under his secondary insurance. Pt to have surgery today. SW to continue to follow. 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
--- NOTE | 2021-05-22 11:41 | CON.PCM.RE_ITS ---
Assessment & Plan Assessment/Plan (1) Hyponatremia: PLAN: On review of his prior labs, he has known history of hyponatremia. Has several risk factors for SIADH including COPD, lung cancer, use of Depakote. However urine sodium has been consistently less than 20. This is not typical for SIADH. I suspect there might be some background SIADH with acute worsening from hypovolemia. Continue fluids for 1 more day. If sodium is not better by tomorrow, will add salt tablets. HPI Consult Data Date of Consult: 05/22/21 HPI Narrative HPI Narrative: KELLY YOU, is a 71 M who presents to the hospital with a fall. Seen by orthopedics for fracture of femur. Nephrology consulted for hyponatremia. Sodium values are around 1 25-1 26. On review of his previous charts, he has previous history of hyponatremia. 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 This admission, urine sodium is fairly low. Asymptomatic from hyponatremia. [facility] Medical History (Updated 05/22/21 @ 11:[address] Sandeep Nava MD) Anxiety Bipolar disorder BPH without obstruction/lower urinary tract symptoms CAD (coronary artery disease) Cancer COLD (chronic obstructive lung disease) COPD (chronic obstructive pulmonary disease) Dyspnea GERD (gastroesophageal reflux disease) High cholesterol History of COPD HLD (hyperlipidemia) HTN (hypertension) Irregular heartbeat Lymphedema Nodule of right lung Nondisp fx proximal phalanx lesser toe right foot w/routine heal Paroxysmal atrial fibrillation PVD (peripheral vascular disease) Smoker Stenosis of esophagus Tobacco use disorder Home Medications cholecalciferol (vitamin D3) 2,000 unit PO DAILY 02/22/19 [History Last Taken 05/20/21] divalproex 500 mg PO QHS 02/22/19 [History Last Taken 05/19/21] finasteride 5 mg PO DAILY 02/22/19 [History Last Taken 05/20/21] melatonin 3 mg PO QHS 02/22/19 [History Last Taken 05/19/21] tamsulosin 0.4 mg PO QHS 02/22/19 [History Last Taken 05/19/21] tizanidine 4 mg PO TID PRN PRN 02/22/19 [History Last Taken 05/19/21] omeprazole 20 mg PO DAILY 01/09/20 [History Last Taken 05/19/21] folic acid 1 mg PO DAILY@0800 #30 tab 01/10/20 [Rx Last Taken 05/20/21] multivitamin with folic acid 1 tab PO DAILYCM #30 tab 01/10/20 [Rx Last Taken 05/20/21] thiamine HCl (vitamin B1) 100 mg PO DAILYCM #30 tab 01/10/20 [Rx Last Taken 05/20/21] divalproex 250 mg tablet,extended release 24 hr 250 mg PO DAILY tab 07/06/20 [History Last Taken 05/20/21] olanzapine 10 mg tablet 10 mg PO DAILY 07/06/20 [History Last Taken 05/19/21] olanzapine 2.5 mg tablet 2.5 mg PO DAILY 07/06/20 [History Last Taken 05/19/21] albuterol sulfate 90 mcg/actuation aerosol inhaler 1 - 2 puff INHALATION 4X/DAY PRN PRN #8.5 g 01/04/21 [Rx Last Taken 05/20/21] budesonide 180 mcg/actuation breath activated powder inhaler 2 inh INHALATION BID #1 ea 01/04/21 [Rx Last Taken 05/20/21] hydrocodone-acetaminophen 1 tab PO PRN PRN 05/20/21 [History Last Taken 05/20/21] Allergy/AdvReac Type Severity Reaction Status Date / Time venom-honey bee Allergy Severe Anaphylaxis Verified 05/20/21 14:42 [bee venom (honey bee)] Family History Father Prostate cancer Mother Lung cancer Surgical History (Updated 05/20/21 @ 21:35 by Batsheva Woodruff) History of heart artery stent History of heart artery stent History of hernia repair Social History household members: none Smoking Status: Current every day smoker tobacco type: cigarettes Tobacco: How many years used: 50 second hand exposure: No quit status: has quit before alcohol intake: current details: NON ALCOHOL BEER substance use type: does not use caffeine: Yes Type: coffee Number of servings: 2 luis/confucianism: None seatbelt use: always do you feel safe at home: Yes ROS ROS Narrative Negative except above Physical Exam Narrative Alert awake oriented x 3 no obvious distress no pallor no icterus no JVD s1s2 no murmurs lungs clear abdomen soft no organomegaly no edema no cyanosis Lab / Micro Data Result Diagrams: 05/22/21 06:28 05/22/21 06:28 Labs: Laboratory Results - last 24 hr 05/21/21 13:07: Serum Osmolality 277 L 05/21/21 14:45: Urine Osmolality 610, Ur Random Sodium < 5, Urine Potassium 68.0, Urine Chloride < 10 05/21/21 19:53: Sodium 125 L 05/22/21 06:28: WBC 15.6 H, RBC 4.55 L, Hgb 15.1, Hct 46.2, MCV 101.5 H, MCH 33.2 H, MCHC 32.7, RDW Std Deviation 51.4 H, RDW Coeff of Fredi 13.5, Plt Count 167, MPV 10.0, Immature Gran % (Auto) 0.400, Neut % (Auto) 93.1 H, Lymph % (Auto) 2.8 L, [place] % (Auto) 3.5, Eos % (Auto) 0.1, Baso % (Auto) 0.1, Absolute Neuts (auto) 14.5 H, Absolute Lymphs (auto) 0.44 L, Nucleated RBC % 0 05/22/21 06:28: Sodium 126 L, Potassium 5.2 H, Chloride 93 L, Carbon Dioxide 23.0, Anion Gap 10, BUN 20 H, Creatinine 0.80, Estim Creat Clear Calc 90.26, Est GFR (MDRD) Af Amer 122, Est GFR (MDRD) Non-Af 101, BUN/Creatinine Ratio 25.0 H, Glucose 164 H, Calcium 8.7 Micro: Microbiology 05/21/21 07:30 Nasal Secretion SARS-CoV-2 Antigen (Rapid) - Final Radiology Impression Venous Doppler Study 05/20/21 18:52 Interpretation Summary There is no evidence of left lower extremity deep vein thrombosis. Left great saphenous vein appears patent and compressible segmentally. Abbreviated COVID-19 protocol utilized Ordering Physician: Elliott Valencia Performed By: Zak Bautista RVT Echocardiogram 05/20/21 21:04 Interpretation Summary The study was technically difficult. Contrast injection was performed. Based upon the 2D echocardiographic and contrast enhanced images obtained there appears to be grossly normal left ventricular size, wall motion, and systolic function. The estimated ejection fraction is 55 %. Trivial mitral valve insufficiency. Mild tricuspid valve insufficiency. Moderate focal aortic valve calcification. Mild aortic stenosis. Calcified aortic root. Right ventricular systolic pressure estimated to be 68 mmHg c/w pulmonary hypertension. Unable to assess diastolic dysfunction. Ordering Physician: Allyson Sarabia Referring Physician: Inocente Nichols M.D. Performed By: Sara Lima RDCS, RVT
--- NOTE | 2021-05-22 11:59 | CASEMGMT ---
Social Work Note Pt to have surgery today for hip fracture. SW following in the event that SNF placement is needed. Pt will need to admit to SNF under [facility] insurance as pt is not service connected for [place]. SW placed a call to Hannah at [facility] as this is the SNF pt wants if SNF is needed. Hannah confirms that pt can admit under his [facility] insurance. SW to continue to follow. Plan: CONCEPCIÓN Jung SITE COORDINATOR, HIGH SCHOOL ACADEMIC COACH
--- NOTE | 2021-05-22 12:00 | FEM_PTH ---
PATIENT: KELLY YOU LOC: MS3 U#:[id number] AGE/SX: 71/M ROOM: CT319 RE05/20/[address]: Dr. Danisha Harvey DO : 1950 BED: 1 DIS: 05/27/2021 SPEC #: [id number] RECD: 05/22/21 14:25 STATUS: CANDIDO REQ #: [id number] CLARISA: 05/22/21 12:[address]: Rsa Plascencia DEPT: SURGICAL PATHOLOGY RECD BY: Alba Marquez ENTERED: 05/23/21 09:21 SP TYPE: FEM HEAD OTHR DR: MD Dr. Santino Lewis MD Dr. Derek Brown, DO Dr. David Kittoe, MD Dr. Jayaprakas Dasari, MD Dr. Steven Widmer, MD Dr. Victor Velasquez, MD Christina Muller, PROJECT SAFETY MANAGER-C Tissues: Femoral region, NOS Procedures: Decalcification bone/plaque Surgery Specimen Level IV Comments: @ Ordering doctor for DEC edited from to DR.SWIDME Montalvo by VALERI at 05/23/211531 @ Ordering doctor for SUV edited from to DR.SWIDME Katia TRAMMELL at 05/23/21 153 @ Submitting doctor edited from to DR.SWIDME Katia TRAMMELL at 05/23/211531 HEADER OPERATION: Right hip hemiarthroplasty PRE-OP DIAGNOSIS: Fall with injury, right hip TISSUE SUBMITTED: Tissue and bone right hip MICROSCOPIC DIAGNOSIS Bone and tissue of right hip, total hip resection: Consistent with organizing fracture site. AM:frankie 05/29/2021 MICROSCOPIC DESCRIPTION Slides are reviewed. GROSS DESCRIPTION Received is one container labeled with the patient's name and designated tissue and bone right hip. The specimen consists of a castro femoral head measuring 5 x 5 x 4 cm. The articular surface is smooth. Resection margin is irregular and hemorrhagic. Also present in the specimen container are multiple detached pieces of bone measuring in aggregate 6 x 3.5 x 2 cm. Soft tissue is not identified. [employer] Contact Printer sections are submitted in two cassettes after decalcification as follows: 1 - detached pieces of bone, 2 - femoral head. / GAYLE:frankie 05/23/21 TC:5 CPT: 96268, 55017
[2021-05-22] MEDS: Cefazolin 2 GM in 0.9% Normal Saline 100 ML IV (12:40)
--- NOTE | 2021-05-22 13:28 | RAD_ITS ---
STUDY: X-RAY - PELVIS AND RIGHT HIP REASON FOR EXAM: Intraoperative fluoroscopy for right hip arthroplasty. TECHNIQUE: 4 intraoperative images of the pelvis and hip. COMPARISON: Radiographs 05/20/2021. FINDINGS: There is a right hip arthroplasty without evidence of complication. 4.8 seconds of fluoroscopy time was used. Electronically Signed: Zachary Gallardo MD at 14:50 EDT Tel , Service support , RAD/Hip 1 view with Pelvis
--- NOTE | 2021-05-22 13:41 | OP.PCM_ITS ---
Report of Operation Date of Procedure: 05/22/21 Pre-Operative Diagnosis: Right displaced subcapital femoral neck fracture Post-Operative Diagnosis: Right displaced subcapital femoral neck fracture Surgery/Procedure Performed:: Right hip hemiarthroplasty Description of Surgical Findings:: Stable hip Surgeon: tatiana rosa measurer machine: Mely Alves Type of Anesthesia: General Anesthesiologist: Carlos Sherwood Special Medications: 2 g Ancef Specimen's removed: Bony cuts Estimated Blood Loss (mL): 350 Fluids Replaced: 400 mL crystalloid Description of Procedure: Components used: 1. Amanda Accolade 2 size 8 127 degree neck angle femoral stem 2. Amanda cobalt-chromium Unitrax femoral head with +0 sleeve Brief history operative indications: 71-year-old male who fell 2 days ago. Severe COPD exacerbation. Patient was stabilized he was consented for surgery for a hemiarthroplasty. Risk and benefits as well as surgical options and nonsurgical options were discussed with the patient as noted in the H&P. Patient wished to proceed. After he was medically stable we will proceed with surgery. Procedure: On the date of procedure the patient's R hip was marked in the preoperative area. Patient was then taken back to the operating room where anesthesia assumed control of the C-spine and airway and administered anesthetic. Patient was transferred to the operating table and placed in the supine position. The hips were placed the break of the bed and a bump was placed in the sacrum. The R lower extremity was then prepped out in a sterile fashion using chlorhexidine while the surgeon scrubbed. Upon reentering the room the R lower extremity was draped in the standard orthopedic fashion and the incision was marked. A timeout was called and everyone agreed upon the side, the site, the procedure be performed, antibody given, and patient's identity. At this time incision was made through skin, subcutaneous tissue, and fat down to fascia. The fascia was then incised and the TFL was retracted laterally. A retractor was placed on the lateral border of the femoral neck. Attention was directed to the inferior portion of the approach and all crossing vessels were identified and appropriately coagulated. A retractor was then placed on the medial portion of the femoral neck. The anterior capsule was then cleared of all soft tissue and then H shaped capsulotomy was made. The retractors were then placed inside the capsule. The femoral neck was identified and a cleanup cut was made. At this time a power corkscrew was used to remove the femoral head. The femoral head was measures and a 54 mm unipolar component was selected. Soft tissue releases on the medial and lateral femoral neck were appropriately done, the leg was externally rotated and lateralized. A Mukherjee retractor was placed medially and proximally to the greater trochanter this allowed appropriate visualization and exposure of the femoral canal. Rongeour was then used to remove excess lateral bone. A canal finder and entry broach were used to open the proximal canal. Once we verified we were down the femoral canal we subsequently broached up to a size 8 femur. The appropriate neck was placed in the previously selected head was trialed with a 0mm neck. Traction was pulled and the hip was reduced with internal rotation. Once it was appropriately reduced and stability was checked. There was minimal shuck, equal leg lengths and appropriate stability with hyperextension and external rotation as well as with 90? flexion and internal rotation. The trial components were then dislocated the proximal femur was again exposed and the components were removed from the wound. The final components were verified and opened. The wound was copiously irrigated out with normal saline. The acetabulum was checked for any residual debris. The final components were placed and impacted. Traction and internal rotation were again used to reduce the hip. After adequate reduction the hip remained stable with appropriate leg lengths. The wound was then copiously irrigated with normal saline once more, and hemostasis was obtained. Closure was then done using #1 Vicryl runner to close the fascia. A 2-0 Vicryl runner was used to close the subcutaneous skin. A 3-0 Monocryl and Steri-Strips were used for final skin closure. A Silverlon dressing was placed. Patient was awakened by anesthesia and transferred to [facility]. Patient was then transferred to the PACU for recovery. Postoperative plan: Patient will get 24 hours postop antibiotics. Patient will get in-house physical therapy and will be weight-bear as tolerated. Patient will follow up in office in 2 weeks for a wound check and x-rays. Xarelto 10 mg daily for 2 weeks for DVT prophylaxis due to patient's poor mobility preoperatively. Complications No intraoperative complication Admit VTE Documentation VTE Present on Admission: No VTE Mechan Device Prophylaxis: SCD's and Thigh High NEHAL Hose VTE Pharm Prophylaxis ordered?: Yes
--- NOTE | 2021-05-22 13:45 | NURSING ---
approx 1030, pt ATB from floor tubed down to AC
--- NOTE | 2021-05-22 13:46 | RAD_ITS ---
STUDY: X-RAY - PELVIS AND RIGHT HIP REASON FOR EXAM: Male, 71 years old. Post Op -- AP both hips on single traci/lateral of op hip PACU TECHNIQUE: 2 views of the pelvis and hip. COMPARISON: Comparison is made with prior examination dated 05/20/2021. FINDINGS: The patient is status post right total hip replacement. There is good alignment. RAD/Hip Min 2 Views (Portable) IMPRESSION: Status post right total hip replacement. There is good alignment. Electronically Signed: Emiliano Floyd MD at 15:23 EDT , Service support ,
--- NOTE | 2021-05-22 14:58 | EKG12_ITS ---
Test Reason : POSTOP Blood Pressure : / mmHG Vent. Rate : 076 BPM Atrial Rate : 076 BPM P-R Int : 328 ms QRS Dur : 092 ms QT Int : 412 ms P-R-T Axes : 074 -66 058 degrees QTc Int : 463 ms Sinus rhythm with 1st degree A-V block Left anterior fascicular block Abnormal ECG Confirmed by LAKISHA RUBIN, MARIA INES ([id number]), mapping editor KENAN RIDLEY ([id number]) on 05/28/2021 8:36:23 AM Referred By: JAVED Confirmed By:MARIA INES BANUELOS MD
--- NOTE | 2021-05-22 15:07 | CPS ---
Started BIPAP in PACU.
[2021-05-22 16:40] LABS: Troponin-I HS 32 pg/mL (3.0-78.0)
[2021-05-22] MEDS: oxyCODONE 5 MG Tablet PO ×2 (18:05→22:58)
[2021-05-22] MEDS: guaiFENesin 10 ML UDC (200MG/10ML) 20 ML PO (18:06)
[2021-05-22] MEDS: Cefazolin 1 GM/50 ML BAG IV (21:17)
[2021-05-22] MEDS: Nystatin Powder 15gm Bottle 1 APPLIC TOPICAL (22:09)
[2021-05-22] MEDS: Menthol/Lanolin/Calamine/Znox 113 GM Tube 1 APPLIC TOPICAL (22:09)
[2021-05-22] MEDS: Divalproex (ER) 500 MG Tablet PO (22:11)
[2021-05-22] MEDS: Tamsulosin HCl 0.4 MG Capsule PO (22:12)
[2021-05-23] VITALS (8 sets, daily range): BP systolic 138–170; BP diastolic 62–74; PULSE 48–60; RESP 14–18; TEMP 36.6–36.9; O2SAT 92–97
[2021-05-23] MEDS: Morphine 2 MG/ML Syringe IV ×2 (00:07→05:56)
[2021-05-23] MEDS: Acetaminophen 325 MG Tablet 650 MG PO (02:22)
[2021-05-23] MEDS: Docusate Sodium 100 MG Capsule 200 MG PO (02:22)
[2021-05-23] MEDS: Ipratropium/Albuterol Sulfate 3 ML AMPUL.NEB INHALATION ×4 (02:25→20:38)
[2021-05-23] MEDS: oxyCODONE 5 MG Tablet PO ×5 (03:55→21:58)
[2021-05-23] MEDS: Cefazolin 1 GM/50 ML BAG IV (04:01)
[2021-05-23] MEDS: Rivaroxaban 10 MG Tablet PO (05:50)
[2021-05-23] MEDS: 0.9% Normal Saline 1,000 ML 75 ML IV ×2 (06:57→19:55)
--- NOTE | 2021-05-23 08:35 | PN.HOSP_ITS ---
Subjective Subjective Patient underwent right hip hemiarthroplasty on 05/22/[address] Malone. Seen this a.m. pain is relatively well controlled blood pressure however elevated Objective Data Objective Data Vital Signs: Vital Signs Temp Pulse Resp BP Pulse Ox 98.0 F 50 L 14 170/74 H 95 05/23/21 08:04 05/23/21 08:04 05/23/21 08:04 05/23/21 08:04 05/23/21 08:04 Oxygen Flow Rate (L/min) 2 Oxygen Delivery Method Room Air Weight: 110.7 kg Body Mass Index (BMI) 33.0 Intake & Output: Intake and Output for Last 24 Hours 05/21/21 05/22/21 05/23/21 23:59 23:59 23:59 Intake Total 3666.25 / 4566.25 1866.25 / 1866.25 Output Total 600 / 1000 1850 / 2300 850 / 850 Balance -600 / -900 1816.25 / 2266.25 1016.25 / 1016.25 Lab / Micro Data Result Diagrams: 05/22/21 06:28 05/22/21 06:28 Labs: Laboratory Results - last 24 hr 05/22/21 16:13: Troponin I High Sens 32 Micro: Microbiology 05/21/21 07:30 Nasal Secretion SARS-CoV-2 Antigen (Rapid) - Final 05/20/21 23:10 Interface Orders Respiratory Panel (PCR) - Final Radiography Diagnostic Testing: Radiology Impression Hip/Pelvis X-Ray 05/22/21 13:28 Hip X-Ray 05/22/21 13:46 IMPRESSION: Status post right total hip replacement. There is good alignment. Electronically Signed: Emiliano Floyd MD at 15:23 EDT , Service support , Physical Exam Narrative GENERAL: cooperative HEENT: Atraumatic; EYES; Anicteric, Normal Conjunctiva NECK; supple, normal thyroid, RESPIRATORY: Diminished to auscultation CARDIOVASCULAR: Regular S1 S2, GI: soft, normoactive bowel sounds, : No Renal angle tenderness; EXTREMITIES: No edema, no clubbing, MUSCULOSKELETAL: Surgical incision clean dry and intact NEURO: Awake; no lateralizing signs. 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 Imaging studies obtained on admission demonstrated an acute impacted right femoral neck fracture with varus angulation of fracture fragments. Admitted to regular nursing floor with consultation placed to orthopedic surgery 1. Nonsyncopal fall with right femoral neck fracture ?Patient has been admitted to regular nursing floor currently being managed with pain meds immobilization and consult placed to Dr. Plascencia with orthopedic surgery. Patient has significant comorbidities including COPD of which she is currently in exacerbation as well as history of lung CA. As part of her preop assessment a 2D echo was obtained which demonstrated EF of 55%. Patient was however found to have right ventricular systolic pressure of 68 mmHg. Plan is to stabilize patient from the pulmonary perspective prior to proceeding with surgery. We will therefore obtain pulmonary consultation in addition to pulmonary toileting and treatment of his COPD with acute exacerbation. This has been discussed with Dr. Moore with anesthesia -05/22/2021; Patient seen had a relatively uneventful night. Seen this a.m. appears comfortable at rest. Currently without oxygen. Auscultation did not reveal any wheezes. Patient is scheduled to undergo ORIF later this afternoon -05/23/2021; Patient underwent right hip hemiarthroplasty on 05/22/[address] Malone. Seen this a.m. pain is relatively well controlled blood pressure however elevated 2. COPD with acute exacerbation ?Acute bronchodilator treatment in addition to supplemental oxygen systemic steroid and antibiotics 3. 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 Hyponatremia ?Patient has some chronicity with sodium level of 121 as of 12/03/2020. As part of his evaluation ordered serum and urine osmolality as well as urine electrolytes. Patient placed on fluid restriction and consult placed to nephrology -05/22/2021; sodium level up to 126. Urine sodium levels not consistent with S IADH 5. Tobacco dependence - Counseled on cessation, offered nicotine patch for tobacco cravings 6. Coronary artery disease ?With previous PCI 7. Depression with anxiety ?Discontinue patient home psychotropic medication 8. BPH ?Patient is on both Proscar as well as Flomax continue 9. DVT prophylaxis ?SCDs plus heparin with plans to hold a.m. dose -05/23/2021 patient started on Lovenox 10. Elevated blood pressure ?Patient has no History of hypertension. Elevated blood pressure may be due to pain. Patient started on low-dose hydralazine with subsequent monitoring ordered 11. Physical deconditioning - Requested for PT OT eval and administrator social welfare to assist with discharge planning Charges/Coding Visit Charges Inpatient E&M: 39123 Subs Hosp L3
[2021-05-23] MEDS: Pantoprazole Sodium 20 MG Tablet PO (09:18)
[2021-05-23] MEDS: OLANZapine 2.5 MG Tablet PO (09:19)
[2021-05-23] MEDS: Finasteride 5 MG Tablet PO (09:19)
[2021-05-23] MEDS: Multivitamins,Ther W-Minerals Tablet 1 TABLET PO (09:19)
[2021-05-23] MEDS: OLANZapine 10 MG Tablet PO (09:19)
[2021-05-23] MEDS: Divalproex (ER) 250 MG Tablet PO (09:19)
[2021-05-23] MEDS: Folic Acid 1 MG Tablet PO (09:19)
[2021-05-23] MEDS: Thiamine Hydrochloride 100 MG Tablet PO ×2 (09:20→15:53)
[2021-05-23] MEDS: Menthol/Lanolin/Calamine/Znox 113 GM Tube 1 APPLIC TOPICAL ×2 (09:31→21:58)
[2021-05-23] MEDS: Nystatin Powder 15gm Bottle 1 APPLIC TOPICAL ×2 (09:31→21:58)
--- NOTE | 2021-05-23 11:47 | PCM.PN.ORT ---
Subjective Subjective Patient is status post right hip hemiarthroplasty. With Dr. Plascencia on 06/18/2021. Patient had a right sided displaced subcapital femoral neck fracture on 05/21/2021. Overall patient is resting comfortably sitting up in chair. States he is in mild amount of pain. Patient has been up with therapy and out of bed with assistance. Denies chest pain, increase shortness of breath (hx of COPD). afebrile. Denies calf pain or other signs/symptoms of DVT. Objective Data Objective Data Vital Signs: Vital Signs Temp Pulse Resp BP Pulse Ox 98.0 F 50 L 14 170/74 H 95 05/23/21 08:04 05/23/21 08:04 05/23/21 08:04 05/23/21 08:04 05/23/21 08:04 Oxygen Flow Rate (L/min) 2 Oxygen Delivery Method Room Air Weight: 110.7 kg Body Mass Index (BMI) 33.0 Intake & Output: Intake and Output for Last 24 Hours 05/21/21 05/22/21 05/23/21 23:59 23:59 23:59 Intake Total 3666.25 / 4566.25 1866.25 / 1866.25 Output Total 600 / 1000 1850 / 2300 850 / 850 Balance -600 / -900 1816.25 / 2266.25 1016.25 / 1016.25 Lab / Micro Data Result Diagrams: 05/22/21 06:28 05/22/21 06:28 Labs: Laboratory Results - last 24 hr 05/22/21 16:13: Troponin I High Sens 32 Micro: Microbiology 05/22/21 06:40 Sputum, Expectorated/Coughed Gram Stain - Final 05/21/21 07:30 Nasal Secretion SARS-CoV-2 Antigen (Rapid) - Final 05/20/21 23:10 Interface Orders Respiratory Panel (PCR) - Final Radiography Diagnostic Testing: Radiology Impression Hip/Pelvis X-Ray 05/22/21 13:28 Hip X-Ray 05/22/21 13:46 IMPRESSION: Status post right total hip replacement. There is good alignment. Electronically Signed: Emiliano Floyd MD at 15:23 EDT , Service support , Physical Exam Narrative Patient resting comfortably sitting in chair No signs of acute distress Patient is satting at baseline on room air. He has history of COPD Limb is warm to touch, Sensation intact throughout entire lower extremity, including saphenous, sural, superficial and deep peroneal, and tibial distribution. DP/PT pulses bounding. Patient able to wiggle toes and 5 out of 5 with dorsi and plantar flexion. Dressing clear dry intact. Calf nontender to palpation, no erythema, no edema. Negative Homans Assessment & Plan Assessment/Plan (1) Closed subcapital fracture of right femur: PLAN: Patient is status post right-sided hip hemiarthroplasty 1. WBAT. with assistance 2. PT/OT today 3. DVT ppx: Xarelto 10 mg once daily x2 weeks, NEHAL moon 4. Pain control: patient to take tylenol 500mg 2 tablets TID. and oxycodone 1-2 tablets every 4-6 hours only as needed for pain control. 5. ok for discharge per primary team. 6. patient ok for discharge from orthopaedic standpoint, will sign off at this time. 7. Please have patient follow up in 2 weeks 8. Okay to remove dressing postop day 5
--- NOTE | 2021-05-23 12:42 | CASEMGMT ---
Social Work Note SW in to speak with pt to discuss discharge plans. SW introduced self and role at [facility]. Pt states he was told that he would be at [facility] for a week to get therapy and that he will go home after his week of therapy. SW informed pt that he cannot stay at [facility] for therapy, pt is medically ready for discharge so if pt feels he cannot go home he will need to go to a SNF. Pt states well that would be [facility] then. Patient was provided a list of SNF providers including quality and resource use data and consistent with the patient?s preferred geographic region, medical needs, and insurance network. SW informed pt that he will likely be at [facility] for a few days still as pre-cert will be needed. SW informed pt that this worker just needs to get the processed started with SNF today but pt can decide later to discharge home if he is strong enough to. Pt states understanding. AMY placed a call to Hannah at [facility]. AMY asked Hannah to check pt's [facility] as now pt is showing as not having a secondary insurance. Hannah states that she reviewed pt's insurance, pt's [facility] is still showing active. Pt can go to [facility] under his [facility] insurance. AMY faxed referral to [facility]. Plan: [facility] skilled pending acceptance and pre-cert Verónica Jung ADMITTING COORDINATOR, BACKEND TESTER
--- NOTE | 2021-05-23 14:25 | PCM.PN.REN ---
Subjective Subjective no new complaints Objective Data Objective Data Vital Signs: Vital Signs Temp Pulse Resp BP Pulse Ox 98.2 F 51 L 18 138/62 H 94 05/23/21 13:50 05/23/21 13:50 05/23/21 13:50 05/23/21 13:50 05/23/21 13:50 Oxygen Flow Rate (L/min) 2 Oxygen Delivery Method Room Air Weight: 110.7 kg Body Mass Index (BMI) 33.0 Intake & Output: Intake and Output for Last 24 Hours 05/21/21 05/22/21 05/23/21 23:59 23:59 23:59 Intake Total 3666.25 / 4566.25 1866.25 / 1866.25 Output Total 600 / 1000 1850 / 2300 850 / 850 Balance -600 / -900 1816.25 / 2266.25 1016.25 / 1016.25 Lab / Micro Data Result Diagrams: 05/22/21 06:28 05/22/21 06:28 Labs: Laboratory Results - last 24 hr 05/22/21 16:13: Troponin I High Sens 32 Micro: Microbiology 05/22/21 06:40 Sputum, Expectorated/Coughed Gram Stain - Final 05/22/21 06:40 Sputum, Expectorated/Coughed Respiratory Culture - Preliminary Appears to be normal respiratory gloria. Further studies to follow. 05/21/21 07:30 Nasal Secretion SARS-CoV-2 Antigen (Rapid) - Final 05/20/21 23:10 Interface Orders Respiratory Panel (PCR) - Final Radiography Diagnostic Testing: Radiology Impression Hip/Pelvis X-Ray 05/22/21 13:28 Hip X-Ray 05/22/21 13:46 IMPRESSION: Status post right total hip replacement. There is good alignment. Electronically Signed: Emiliano Floyd MD at 15:23 EDT , Service support , Physical Exam Narrative Alert awake oriented x 3 no obvious distress no pallor no icterus no JVD s1s2 no murmurs lungs clear abdomen soft no organomegaly no edema no cyanosis Assessment & Plan Assessment/Plan (1) Hyponatremia: PLAN: On review of his prior labs, he has known history of hyponatremia. Has several risk factors for SIADH including COPD, lung cancer, use of Depakote. However urine sodium has been consistently less than 20. This is not typical for SIADH. I suspect there might be some background SIADH with acute worsening from hypovolemia. volume status is ok. repeat BMP in am. if sodium better dc fluids in am
--- NOTE | 2021-05-23 15:09 | CASEMGMT ---
Social Work Note AMY received call from Hannah at [facility] stating they are able to accept pt and will submit for pre-cert. SW in to speak with pt. SW updated pt that [facility] is able to accept pt pending pre-cert. SW informed pt that he will be at [facility] until pre-cert is obtained. Pt states that if he starts to feel better with therapy he wants to go home. SW informed pt that that is an option but the process for a SNF needed to be started today. SW asked pt about his ETOH use. Pt states he will drink a beer here and there. Pt states he will sometimes have a beer for lunch. Pt states he doesn't drink whiskey or hard liquor. Pt states he also doesn't drink constantly and can sometimes go a day or so without drinking a beer. Pt stats that he will buy a 12 pack of beer that will last him a month. SW offered ETOH resources and pt denied. Plan: [facility] pending pre-cert Verónica Jung SERICULTURE TEACHER, FORGING PRESS SETTER UP
--- NOTE | 2021-05-23 15:45 | CASEMGMT ---
[facility] and [facility] updated [facility]s at this time.
[2021-05-23] MEDS: Divalproex (ER) 500 MG Tablet PO (21:57)
[2021-05-23] MEDS: Tamsulosin HCl 0.4 MG Capsule PO (21:58)
[2021-05-24] VITALS (11 sets, daily range): BP systolic 134–137; BP diastolic 54–68; PULSE 50–77; RESP 16–24; TEMP 36.5–37.1; O2SAT 86–97
[2021-05-24] MEDS: oxyCODONE 5 MG Tablet PO ×5 (02:13→21:09)
[2021-05-24] MEDS: Ipratropium/Albuterol Sulfate 3 ML AMPUL.NEB INHALATION ×5 (02:18→22:58)
[2021-05-24] MEDS: Acetaminophen 325 MG Tablet 650 MG PO ×3 (06:12→21:09)
[2021-05-24] MEDS: Rivaroxaban 10 MG Tablet PO (06:12)
--- NOTE | 2021-05-24 07:14 | PCM.PN.HOSP ---
Subjective Subjective Patient seen. Patient however has markedly distended abdomen kept n.p.o. added KUB for subsequent evaluationSodium level is almost back to normal limit Objective Data Objective Data Vital Signs: Vital Signs Temp Pulse Resp BP Pulse Ox 98.7 F 55 L 20 H 135/61 H 96 05/24/21 02:10 05/24/21 02:18 05/24/21 02:18 05/24/21 02:10 05/24/21 02:10 Oxygen Flow Rate (L/min) 2 Oxygen Delivery Method Nasal Cannula Weight: 110.7 kg Body Mass Index (BMI) 33.0 Intake & Output: Intake and Output for Last 24 Hours 05/22/21 05/23/21 05/24/21 23:59 23:59 23:59 Intake Total 3666.25 / 4566.25 2838.75 / 2918.75 190 / 190 Output Total 1850 / 2300 850 / 1150 750 / 750 Balance 1816.25 / 2266.25 1988.75 / 1768.75 -560 / -560 Lab / Micro Data Result Diagrams: 05/22/21 06:28 05/24/21 05:55 Micro: Microbiology 05/22/21 06:40 Sputum, Expectorated/Coughed Gram Stain - Final 05/22/21 06:40 Sputum, Expectorated/Coughed Respiratory Culture - Preliminary Appears to be normal respiratory gloria. Further studies to follow. 05/21/21 07:30 Nasal Secretion SARS-CoV-2 Antigen (Rapid) - Final 05/20/21 23:10 Interface Orders Respiratory Panel (PCR) - Final Physical Exam Narrative GENERAL: cooperative HEENT: Atraumatic; EYES; Anicteric, Normal Conjunctiva NECK; supple, normal thyroid, RESPIRATORY: Diminished to auscultation CARDIOVASCULAR: Regular S1 S2, GI: Abdominal markedly distended tympanic check to percussion : No Renal angle tenderness; EXTREMITIES: No edema, no clubbing, MUSCULOSKELETAL: Surgical incision clean dry and intact NEURO: Awake; no lateralizing signs. 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 Imaging studies obtained on admission demonstrated an acute impacted right femoral neck fracture with varus angulation of fracture fragments. Admitted to regular nursing floor with consultation placed to orthopedic surgery 1. Nonsyncopal fall with right femoral neck fracture ?Patient has been admitted to regular nursing floor currently being managed with pain meds immobilization and consult placed to Dr. Plascencia with orthopedic surgery. Patient has significant comorbidities including COPD of which she is currently in exacerbation as well as history of lung CA. As part of her preop assessment a 2D echo was obtained which demonstrated EF of 55%. Patient was however found to have right ventricular systolic pressure of 68 mmHg. Plan is to stabilize patient from the pulmonary perspective prior to proceeding with surgery. We will therefore obtain pulmonary consultation in addition to pulmonary toileting and treatment of his COPD with acute exacerbation. This has been discussed with Dr. Moore with anesthesia -05/22/2021; Patient seen had a relatively uneventful night. Seen this a.m. appears comfortable at rest. Currently without oxygen. Auscultation did not reveal any wheezes. Patient is scheduled to undergo ORIF later this afternoon -05/23/2021; Patient underwent right hip hemiarthroplasty on 05/22/[address] Malone. Seen this a.m. pain is relatively well controlled blood pressure however elevated ?05/24/2021; seen by PT plan is for patient to undergo further therapy 2. COPD with acute exacerbation ?Acute bronchodilator treatment in addition to supplemental oxygen systemic steroid and antibiotics 3. 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 Hyponatremia ?Patient has some chronicity with sodium level of 121 as of 12/03/2020. As part of his evaluation ordered serum and urine osmolality as well as urine electrolytes. Patient placed on fluid restriction and consult placed to nephrology -05/22/2021; sodium level up to 126. Urine sodium levels not consistent with SIADH ?05/24/2021; sodium levels up back to 134 5. Tobacco dependence - Counseled on cessation, offered nicotine patch for tobacco cravings 6. Coronary artery disease ?With previous PCI 7. Depression with anxiety ?Discontinue patient home psychotropic medication 8. BPH ?Patient is on both Proscar as well as Flomax continue 9. DVT prophylaxis ?SCDs plus heparin with plans to hold a.m. dose -05/23/2021 patient started on Xarelto 10. Elevated blood pressure ?Patient has no History of hypertension. Elevated blood pressure may be due to pain. Patient started on low-dose hydralazine with subsequent monitoring ordered 11. Physical deconditioning - Requested for PT OT eval and social media developer to assist with discharge planning ?12. Abdominal distention ?Patient kept n.p.o. ordered KUB for subsequent evaluation Charges/Coding Visit Charges Inpatient E&M: 00615 Subs Hosp L3
[2021-05-24 07:39] LABS: Anion Gap 7 (5-15); BUN 19 mg/dL (7-18); BUN/Creat Ratio 26.9 RATIO (10-20); Calcium,Total 8.2 mg/dL (8.5-10.1); Chloride 97 mmol/L (98-107); Creatinine, Serum 0.71 mg/dL (0.70-1.30); EST Glomerular Filtration Rate 116 mL/min (>60); Est Glom Filt Rate - Afr Amer 141 mL/min (>60); Estimated Creatinine Clearance 72.21 ml/min; Glucose 86 mg/dL (74-106); Potassium 4.6 mmol/L (3.5-5.1); Sodium Level 134 mmol/L (136-145)
[2021-05-24] MEDS: 0.9% Normal Saline 1,000 ML 75 ML IV (09:02)
[2021-05-24] MEDS: Thiamine Hydrochloride 100 MG Tablet PO ×2 (09:03→09:04)
[2021-05-24] MEDS: Finasteride 5 MG Tablet PO (09:03)
[2021-05-24] MEDS: Multivitamins,Ther W-Minerals Tablet 1 TABLET PO (09:03)
[2021-05-24] MEDS: Menthol/Lanolin/Calamine/Znox 113 GM Tube 1 APPLIC TOPICAL ×2 (09:03→21:10)
[2021-05-24] MEDS: Pantoprazole Sodium 20 MG Tablet PO (09:03)
[2021-05-24] MEDS: OLANZapine 10 MG Tablet PO (09:04)
[2021-05-24] MEDS: OLANZapine 2.5 MG Tablet PO (09:04)
[2021-05-24] MEDS: Divalproex (ER) 250 MG Tablet PO (09:04)
[2021-05-24] MEDS: Nystatin Powder 15gm Bottle 1 APPLIC TOPICAL ×2 (09:05→21:10)
--- NOTE | 2021-05-24 09:54 | NURSING ---
pt to x ray
--- NOTE | 2021-05-24 10:10 | RAD_ITS ---
STUDY: X-RAY - ABDOMEN/PELVIS REASON FOR EXAM: Male, 71 years old. Abdominal distention. History of lung cancer. TECHNIQUE: AP supine and decubitus views of the abdomen and pelvis. COMPARISON: None. FINDINGS: Normal visualized lung bases. There is a nonspecific bowel gas pattern. Air is seen throughout the nondistended colon. There are air-filled loops of small bowel throughout the abdomen with evidence of air-fluid levels. There is no demonstrated free abdominal air. The visualized liver, spleen and kidneys are grossly normal in size and morphology. Normal soft tissue structures. Degenerative changes of the lumbar spine. There is a right hip prosthesis. RAD/Abd Inc Decub and/or Erect IMPRESSION: Ileus versus early or incomplete small bowel obstruction. Follow-up recommended. Electronically Signed: Javier Stafford DO at 16:51 EDT Tel [phone], Service support ,
--- NOTE | 2021-05-24 11:40 | CASEMGMT ---
Addendum entered by Verónica Jung 05/24/21 16:59: AMY spoke with Hannah at [facility]. Hannah states pre-cert is still pending, will call [facility] if pre-cert is obtained over the weekend. AMY provided [facility] number. AMY faxed updated clinicals to [facility]. AMY placed Green sheet, transport forms, COVID tool on pt's chart. Pt will need COVID test on day of discharge. Plan: [facility] skilled under convalescent stay pending pre-cert. *Have to wait for approval from [facility] before pt can discharge Verónica Jung ACCOUNT SPECIALIST, ADVOCACY DIRECTOR Original Note: Social Work Note AMY placed a call to Hannah at [facility], pre-cert is still pending. Hannah asked if pt has been vaccinated for COVID. AMY informed Hannah that this worker is not sure, will ask pt. AMY asked Hannah to let this worker know when pre-cert is obtained. AMY in to speak with pt. AMY asked pt about COVID vaccination, pt states he has been fully vaccinated. AMY informed pt that insurance is still pending for pre-cert for [facility]. Pt states No neves, I don't mind staying here in the hospital. AMY informed pt that it just depends on when pre-cert is obtained when pt can discharge. Pt states understanding. AMY placed a call to Hannah at [facility] and left message that pt has been fully vaccinated. Plan: [facility] skilled pending pre-cert Verónica Jung ACCOUNT SPECIALIST, ADVOCACY DIRECTOR
--- NOTE | 2021-05-24 13:56 | PN.RENAL_ITS ---
Documented by User: PAUL Monge 05/24/21 14:03 Subjective Subjective Sitting in chair. Denies any complaints. Denies any nausea, vomiting or diarrhea. Reports appetite good. No overnight events. Objective Data Objective Data Vital Signs: Vital Signs Temp Pulse Resp BP Pulse Ox 98.4 F 77 16 134/68 H 94 05/24/21 09:11 05/24/21 09:11 05/24/21 09:11 05/24/21 09:11 05/24/21 09:11 Oxygen Flow Rate (L/min) 2 Oxygen Delivery Method Nasal Cannula Weight: 110.7 kg Body Mass Index (BMI) 33.0 Intake & Output: Intake and Output for Last 24 Hours 05/22/21 05/23/21 05/24/21 23:59 23:59 23:59 Intake Total 3666.25 / 4566.25 2838.75 / 2918.75 1707.50 / 1707.50 Output Total 1850 / 2300 850 / 1150 1000 / 1000 Balance 1816.25 / 2266.25 1988.75 / 1768.75 707.50 / 707.50 Lab / Micro Data Result Diagrams: 05/22/21 06:28 05/24/21 05:55 Labs: Laboratory Results - last 24 hr 05/24/21 05:55: Sodium 134 L, Potassium 4.6, Chloride 97 L, Carbon Dioxide 30.0, Anion Gap 7, BUN 19 H, Creatinine 0.71, Estim Creat Clear Calc 72.21, Est GFR (MDRD) Af Amer 141, Est GFR (MDRD) Non-Af 116, BUN/Creatinine Ratio 26.9 H, Glucose 86, Calcium 8.2 L Micro: Microbiology 05/22/21 06:40 Sputum, Expectorated/Coughed Gram Stain - Final 05/22/21 06:40 Sputum, Expectorated/Coughed Respiratory Culture - Final 05/21/21 07:30 Nasal Secretion SARS-CoV-2 Antigen (Rapid) - Final 05/20/21 23:10 Interface Orders Respiratory Panel (PCR) - Final Physical Exam Narrative Alert awake oriented x 3 no obvious distress s1s2 no murmurs lungs clear abdomen soft no organomegaly no edema Assessment & Plan Assessment/Plan (1) Hyponatremia: PLAN: Acute on chronic hyponatremia. Patient has several risk factors for SIADH including COPD, lung cancer, use of Depakote. Urine sodium has been consistently less than 20. This is not typical for SIADH. I suspect there might be some background SIADH with acute worsening from hypovolemia. volume st [facility] is ok. Sodium 123 on admission and improved at appropriate level daily. Today his sodium is up to 134. Will DC IV fluids. Hyponatremia dating back to at least 2012. Difficult to tell baseline sodium trends, sodium as low as 118 in 2020. Possible baseline Sodium 123-135. Discharge planning in progress Documented by User: Dr. Sandeep Nava MD 05/24/21 18:48 Objective Data Lab / Micro Data Result Diagrams: 05/22/21 06:28 05/24/21 05:55
[2021-05-24] MEDS: Bisacodyl 10 MG Suppository RC (15:53)
[2021-05-24] MEDS: Tamsulosin HCl 0.4 MG Capsule PO (21:09)
[2021-05-24] MEDS: Divalproex (ER) 500 MG Tablet PO (21:09)
--- NOTE | 2021-05-24 23:48 | NURSING ---
at 2113, sats were 86% on RA, put on 2L NC, sats came up to 97%. Patient was sleeping and shallow breathing. Has expiratory wheezes and Rhonchi throughout.
[2021-05-25] VITALS (10 sets, daily range): BP systolic 147–163; BP diastolic 57–67; PULSE 47–76; RESP 16–20; TEMP 36.6–37.1; O2SAT 87–100
[2021-05-25] MEDS: Ipratropium/Albuterol Sulfate 3 ML AMPUL.NEB INHALATION ×6 (03:32→22:37)
[2021-05-25] MEDS: Acetaminophen 325 MG Tablet 650 MG PO ×2 (05:24→14:56)
[2021-05-25] MEDS: Rivaroxaban 10 MG Tablet PO (05:24)
[2021-05-25] MEDS: oxyCODONE 5 MG Tablet PO ×4 (05:25→19:38)
--- NOTE | 2021-05-25 07:34 | PN.HOSP_ITS ---
Subjective Subjective Patient did experience good response with Dulcolax and subset enemas. Abdomen less distended compared to previous day. Currently started on clear liquids which is being advanced as tolerated Objective Data Objective Data Vital Signs: Vital Signs Temp Pulse Resp BP Pulse Ox 98.3 F 47 L 16 137/58 H 94 05/24/21 21:15 05/25/21 07:25 05/25/21 07:25 05/24/21 21:15 05/25/21 07:25 Oxygen Flow Rate (L/min) 2 Oxygen Delivery Method Nasal Cannula Weight: 110.7 kg Body Mass Index (BMI) 33.0 Intake & Output: Intake and Output for Last 24 Hours 05/23/21 05/24/21 05/25/21 23:59 23:59 23:59 Intake Total 2838.75 / 2918.75 2157.50 / 2207.50 50 / 50 Output Total 850 / 1150 1100 / 1400 300 / 300 Balance 1988.75 / 1768.75 1057.50 / 807.50 -250 / -250 Lab / Micro Data Result Diagrams: 05/22/21 06:28 05/24/21 05:55 Labs: Laboratory Results - last 24 hr 05/24/21 05:55: Sodium 134 L, Potassium 4.6, Chloride 97 L, Carbon Dioxide 30.0, Anion Gap 7, BUN 19 H, Creatinine 0.71, Estim Creat Clear Calc 72.21, Est GFR (MDRD) Af Amer 141, Est GFR (MDRD) Non-Af 116, BUN/Creatinine Ratio 26.9 H, Glucose 86, Calcium 8.2 L Micro: Microbiology 05/22/21 06:40 Sputum, Expectorated/Coughed Gram Stain - Final 05/22/21 06:40 Sputum, Expectorated/Coughed Respiratory Culture - Final 05/21/21 07:30 Nasal Secretion SARS-CoV-2 Antigen (Rapid) - Final 05/20/21 23:10 Interface Orders Respiratory Panel (PCR) - Final Radiography Diagnostic Testing: Radiology Impression Abdomen X-Ray 05/24/21 10:10 IMPRESSION: Ileus versus early or incomplete small bowel obstruction. Follow-up recommended. Electronically Signed: Javier Stafford DO at 16:51 EDT Tel [phone], Service support , Physical Exam Narrative GENERAL: cooperative HEENT: Atraumatic; EYES; Anicteric, Normal Conjunctiva NECK; supple, normal thyroid, RESPIRATORY: Diminished to auscultation CARDIOVASCULAR: Regular S1 S2, GI: Abdominal less distended compared to previous day : No Renal angle tenderness; EXTREMITIES: No edema, no clubbing, MUSCULOSKELETAL: Surgical incision clean dry and intact NEURO: Awake; no lateralizing signs. SKIN: No Rash PSYCH; Flat affect Assessment & Plan Assessment/Plan (1) COLD (chronic obstructive lung disease): QUALIFIERS: COPD type: unspecified COPD Qualified Code(s): J44.9 - Chronic obstructive pulmonary disease, unspecified PLAN: Patient is 71-year-old gentleman with history of COPD, adenocarci noma of the medial upper lobe of the left lung with previous radiation therapy from 03/30/2020 to 04/09/2020 who presented following a fall. Imaging studies obtained on admission demonstrated an acute impacted right femoral neck fracture with varus angulation of fracture fragments. Admitted to regular nursing floor with consultation placed to orthopedic surgery 1. Nonsyncopal fall with right femoral neck fracture ?Patient has been admitted to regular nursing floor currently being managed with pain meds immobilization and consult placed to Dr. Plascencia with orthopedic surgery. Patient has significant comorbidities including COPD of which she is currently in exacerbation as well as history of lung CA. As part of her preop assessment a 2D echo was obtained which demonstrated EF of 55%. Patient was however found to have right ventricular systolic pressure of 68 mmHg. Plan is to stabilize patient from the pulmonary perspective prior to proceeding with surgery. We will therefore obtain pulmonary consultation in addition to pulmonary toileting and treatment of his COPD with acute exacerbation. This has been discussed with Dr. Moore with anesthesia -05/22/2021; Patient seen had a relatively uneventful night. Seen this a.m. appears comfortable at rest. Currently without oxygen. Auscultation did not reveal any wheezes. Patient is scheduled to undergo ORIF later this afternoon -05/23/2021; Patient underwent right hip hemiarthroplasty on 05/22/[address] Malone. Seen this a.m. pain is relatively well controlled blood pressure however elevated ?05/24/2021; seen by PT plan is for patient to undergo further therapy 2. COPD with acute exacerbation ?Acute bronchodilator treatment in addition to supplemental oxygen systemic steroid and antibiotics 3. 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 Hyponatremia ?Patient has some chronicity with sodium level of 121 as of 12/03/2020. As part of his evaluation ordered serum and urine osmolality as well as urine electrolytes. Patient placed on fluid restriction and consult placed to nephrology -05/22/2021; sodium level up to 126. Urine sodium levels not consistent with SIADH ?05/24/2021; sodium levels up back to 134 5. Tobacco dependence - Counseled on cessation, offered nicotine patch for tobacco cravings 6. Coronary artery disease ?With previous PCI 7. Depression with anxiety ?Discontinue patient home psychotropic medication 8. BPH ?Patient is on both Proscar as well as Flomax continue 9. DVT prophylaxis ?SCDs plus heparin with plans to hold a.m. dose -05/23/2021 patient started on Xarelto 10. Elevated blood pressure ?Patient has no History of hypertension. Elevated blood pressure may be due to pain. Patient started on low-dose hydralazine with subsequent monitoring ordered 11. Physical deconditioning - Requested for PT OT eval and social and human services assistant to assist with discharge planning ?12. Abdominal distention secondary to obstipation ?Patient kept n.p.o. ordered KUB for subsequent evaluation ?05/25/2021;Patient did experience good response with Dulcolax and subset enemas. Abdomen less distended compared to previous day. Currently started on clear liquids which is being advanced as tolerated Charges/Coding Visit Charges Inpatient E&M: 12452 Subs Hosp L2
[2021-05-25] MEDS: Multivitamins,Ther W-Minerals Tablet 1 TABLET PO (07:59)
[2021-05-25] MEDS: Pantoprazole Sodium 20 MG Tablet PO (08:00)
[2021-05-25] MEDS: OLANZapine 2.5 MG Tablet PO (08:01)
[2021-05-25] MEDS: Thiamine Hydrochloride 100 MG Tablet PO (08:01)
[2021-05-25] MEDS: OLANZapine 10 MG Tablet PO (08:02)
[2021-05-25] MEDS: Divalproex (ER) 250 MG Tablet PO (08:02)
[2021-05-25] MEDS: Finasteride 5 MG Tablet PO (08:02)
[2021-05-25] MEDS: Nystatin Powder 15gm Bottle 1 APPLIC TOPICAL ×2 (08:04→19:57)
[2021-05-25] MEDS: Menthol/Lanolin/Calamine/Znox 113 GM Tube 1 APPLIC TOPICAL ×2 (08:05→19:56)
--- NOTE | 2021-05-25 08:19 | RAD_ITS ---
STUDY: X-RAY - ABDOMEN/PELVIS REASON FOR EXAM: Male, 71 years old. Ileus TECHNIQUE: 3 AP views, 2 decubitus films COMPARISON: Yesterday FINDINGS: Normal visualized lung bases. Retained stool noted in the ascending and descending colon with distended air-filled transverse colon in between. There are also air-filled loops of small bowel throughout the abdomen. Findings consistent with ileus due to retained stool. The visualized liver, spleen and kidneys are grossly normal in size and morphology. Peripheral calcifications noted in the abdominal aorta. Structures show degenerative change. Replaced right hip joint free of complication RAD/Abd Inc Decub and/or Erect IMPRESSION: Small bowel and transverse colon ileus likely due to retained stool in the ascending and descending colon. Little significant change or improvement since the previous study Electronically Signed: Brice Carvajal MD at 8:48 EDT , Service support ,
[2021-05-25] MEDS: Senna/Docusate Sodium 1 Tablet 2 TABLET PO ×2 (10:21→21:29)
[2021-05-25] MEDS: Polyethylene Glycol 3350 17 GM PACKET PO (10:21)
[2021-05-25] MEDS: Tamsulosin HCl 0.4 MG Capsule PO (21:29)
[2021-05-25] MEDS: Divalproex (ER) 500 MG Tablet PO (21:29)
[2021-05-26] VITALS (9 sets, daily range): BP systolic 134–164; BP diastolic 60–71; PULSE 52–78; RESP 18–22; TEMP 36.2–36.8; O2SAT 90–97
[2021-05-26] MEDS: oxyCODONE 5 MG Tablet PO ×5 (00:18→20:08)
[2021-05-26] MEDS: Rivaroxaban 10 MG Tablet PO (06:13)
[2021-05-26] MEDS: Ipratropium/Albuterol Sulfate 3 ML AMPUL.NEB INHALATION ×6 (07:02→23:03)
--- NOTE | 2021-05-26 07:55 | PCM.PN.HOSP ---
Subjective Subjective Patient has tolerated clear/full liquid diet well so far plan is to advance to regular diet Objective Data Objective Data Vital Signs: Vital Signs Temp Pulse Resp BP Pulse Ox 98.3 F 60 18 149/63 H 97 05/26/21 02:00 05/26/21 02:00 05/26/21 02:00 05/26/21 02:00 05/26/21 02:00 Oxygen Flow Rate (L/min) 2 Oxygen Delivery Method Nasal Cannula Weight: 110.7 kg Body Mass Index (BMI) 33.0 Intake & Output: Intake and Output for Last 24 Hours 05/24/21 05/25/21 05/26/21 23:59 23:59 22:59 Intake Total 2157.50 / 2207.50 1350 / 1350 Output Total 1100 / 1400 550 / 850 800 / 800 Balance 1057.50 / 807.50 800 / 500 -800 / -800 Lab / Micro Data Result Diagrams: 05/26/21 10:53 05/26/21 10:53 Micro: Microbiology 05/22/21 06:40 Sputum, Expectorated/Coughed Gram Stain - Final 05/22/21 06:40 Sputum, Expectorated/Coughed Respiratory Culture - Final 05/21/21 07:30 Nasal Secretion SARS-CoV-2 Antigen (Rapid) - Final 05/20/21 23:10 Interface Orders Respiratory Panel (PCR) - Final Physical Exam Narrative GENERAL: cooperative HEENT: Atraumatic; EYES; Anicteric, Normal Conjunctiva NECK; supple, normal thyroid, RESPIRATORY: Diminished to auscultation CARDIOVASCULAR: Regular S1 S2, GI: Abdominal less distended compared to previous day : No Renal angle tenderness; EXTREMITIES: No edema, no clubbing, MUSCULOSKELETAL: Surgical incision clean dry and intact NEURO: Awake; no lateralizing signs. 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 Imaging studies obtained on admission demonstrated an acute impacted right femoral neck fracture with varus angulation of fracture fragments. Admitted to regular nursing floor with consultation placed to orthopedic surgery 1. Nonsyncopal fall with right femoral neck fracture ?Patient has been admitted to regular nursing floor currently being managed with pain meds immobilization and consult placed to Dr. Plascencia with orthopedic surgery. Patient has significant comorbidities including COPD of which she is currently in exacerbation as well as history of lung CA. As part of her preop assessment a 2D echo was obtained which demonstrated EF of 55%. Patient was however found to have right ventricular systolic pressure of 68 mmHg. Plan is to stabilize patient from the pulmonary perspective prior to proceeding with surgery. We will therefore obtain pulmonary consultation in addition to pulmonary toileting and treatment of his COPD with acute exacerbation. This has been discussed with Dr. Moore with anesthesia -05/22/2021; Patient seen had a relatively uneventful night. Seen this a.m. appears comfortable at rest. Currently without oxygen. Auscultation did not reveal any wheezes. Patient is scheduled to undergo ORIF later this afternoon -05/23/2021; Patient underwent right hip hemiarthroplasty on 05/22/[address] Plascencia. Seen this a.m. pain is relatively well controlled blood pressure however elevated ?05/24/2021; seen by PT plan is for patient to undergo further therapy 2. COPD with acute exacerbation ?Acute bronchodilator treatment in addition to supplemental oxygen systemic steroid and antibiotics 3. 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 Hyponatremia ?Patient has some chronicity with sodium level of 121 as of 12/03/2020. As part of his evaluation ordered serum and urine osmolality as well as urine electrolytes. Patient placed on fluid restriction and consult placed to nephrology -05/22/2021; sodium level up to 126. Urine sodium levels not consistent with SIADH ?05/24/2021; sodium levels up back to 134 5. Tobacco dependence - Counseled on cessation, offered nicotine patch for tobacco cravings 6. Coronary artery disease ?With previous PCI 7. Depression with anxiety ?Discontinue patient home psychotropic medication 8. BPH ?Patient is on both Proscar as well as Flomax continue 9. DVT prophylaxis ?SCDs plus heparin with plans to hold a.m. dose -05/23/2021 patient started on Xarelto 10. Elevated blood pressure ?Patient has no History of hypertension. Elevated blood pressure may be due to pain. Patient started on low-dose hydralazine with subsequent monitoring ordered 11. Physical deconditioning - Requested for PT OT eval and mental health social worker to assist with discharge planning ?12. Abdominal distention secondary to obstipation ?Patient kept n.p.o. ordered KUB for subsequent evaluation ?05/25/2021;Patient did experience good response with Dulcolax and subset enemas. Abdomen less distended compared to previous day. Currently started on clear liquids which is being advanced as tolerated -05/26/2021atient has tolerated clear/full liquid diet well so far plan is to advance to regular diet Charges/Coding Visit Charges Inpatient E&M: 73933 Subs Hosp L2
[2021-05-26] MEDS: Thiamine Hydrochloride 100 MG Tablet PO (08:20)
[2021-05-26] MEDS: Multivitamins,Ther W-Minerals Tablet 1 TABLET PO (08:20)
[2021-05-26 11:13] LABS: Absolute Lymphocyte Count 1.34 X10^3/uL (0.83-4.51); Absolute Neutrophil Count 7.7 X10^3/uL (2.0-7.7); Basophil# 0.04 X10^3/uL; Basophil% 0.4 % (0-1); Eosinophil# 0.37 X10^3/uL; Eosinophils% 3.6 % (0-5); Hematocrit 37.8 % (40-54); Hemoglobin 12.2 g/dL (13.0-16.5); Lymphocyte # 1.34 X10^3/ul (0.83-4.51); Mean Corp Hgb Conc 32.3 g/dL (32-36); Mean Corpuscular Volume 102.2 fL (80-94); Mean Platelet Vol. 9.3 fl (6.2-12.0); Monocyte# 0.85 X10^3/uL; Monocyte% 8.2 % (0-10); NRBC Flagged by Analyzer 0 % (0-5); Neutrophil # 7.65 X10^3/uL (2.7-7.7); Neutrophil % 73.9 % (47-70); Platelet Count 199 K/mm3 (150-450); RBC Distribution Width CV 13.3 % (11.6-14.6); RBC Distribution Width SD 50.4 fl (35.1-43.9); White Blood Count 10.3 K/mm3 (4.4-11.0)
[2021-05-26 11:34] LABS: Anion Gap 5 (5-15); BUN 14 mg/dL (7-18); BUN/Creat Ratio 19.7 RATIO (10-20); Calcium,Total 8.8 mg/dL (8.5-10.1); Chloride 95 mmol/L (98-107); Creatinine, Serum 0.71 mg/dL (0.70-1.30); EST Glomerular Filtration Rate 116 mL/min (>60); Est Glom Filt Rate - Afr Amer 140 mL/min (>60); Estimated Creatinine Clearance 72.21 ml/min; Glucose 112 mg/dL (74-106); Magnesium 1.9 mg/dL (1.6-2.6); Potassium 4.3 mmol/L (3.5-5.1); Sodium Level 131 mmol/L (136-145)
[2021-05-26] MEDS: Menthol/Lanolin/Calamine/Znox 113 GM Tube 1 APPLIC TOPICAL ×2 (11:44→20:09)
[2021-05-26] MEDS: Divalproex (ER) 250 MG Tablet PO (11:45)
[2021-05-26] MEDS: Nystatin Powder 15gm Bottle 1 APPLIC TOPICAL ×2 (11:46→20:09)
[2021-05-26] MEDS: Polyethylene Glycol 3350 17 GM PACKET PO (11:46)
[2021-05-26] MEDS: Finasteride 5 MG Tablet PO (11:47)
[2021-05-26] MEDS: Pantoprazole Sodium 20 MG Tablet PO (11:47)
[2021-05-26] MEDS: Senna/Docusate Sodium 1 Tablet 2 TABLET PO ×2 (11:47→21:26)
[2021-05-26] MEDS: OLANZapine 2.5 MG Tablet PO (11:48)
[2021-05-26] MEDS: OLANZapine 10 MG Tablet PO (11:48)
[2021-05-26] MEDS: Divalproex (ER) 500 MG Tablet PO (21:26)
[2021-05-26] MEDS: Tamsulosin HCl 0.4 MG Capsule PO (21:29)
[2021-05-27] VITALS (10 sets, daily range): BP systolic 131–154; BP diastolic 50–72; PULSE 49–76; RESP 18–22; TEMP 36.6–37.2; O2SAT 86–97
[2021-05-27] MEDS: oxyCODONE 5 MG Tablet PO ×4 (00:06→14:01)
[2021-05-27] MEDS: Rivaroxaban 10 MG Tablet PO (05:49)
[2021-05-27 07:06] LABS: Absolute Lymphocyte Count 1.42 X10^3/uL (0.83-4.51); Basophil# 0.05 X10^3/uL; Basophil% 0.5 % (0-1); Eosinophil# 0.37 X10^3/uL; Eosinophils% 3.6 % (0-5); Hematocrit 37.5 % (40-54); Lymphocyte # 1.42 X10^3/ul (0.83-4.51); Mean Corpuscular Hgb 32.7 pg (27.0-32.0); Mean Corpuscular Volume 102.2 fL (80-94); Mean Platelet Vol. 9.7 fl (6.2-12.0); Monocyte# 1.17 X10^3/uL; Monocyte% 11.5 % (0-10); NRBC Flagged by Analyzer 0 % (0-5); Neutrophil # 7.01 X10^3/uL (2.7-7.7); Platelet Count 232 K/mm3 (150-450); RBC Distribution Width CV 13.1 % (11.6-14.6); RBC Distribution Width SD 49.7 fl (35.1-43.9); Red Blood Count 3.67 M/mm3 (4.6-6.2); White Blood Count 10.2 K/mm3 (4.4-11.0)
[2021-05-27] MEDS: Ipratropium/Albuterol Sulfate 3 ML AMPUL.NEB INHALATION ×3 (07:13→15:09)
--- NOTE | 2021-05-27 09:24 | PCM.PN.REN ---
Subjective Subjective No new complaints Objective Data Objective Data Vital Signs: Vital Signs Temp Pulse Resp BP Pulse Ox 98.9 F 54 L 18 154/69 H 96 05/27/21 08:05 05/27/21 08:05 05/27/21 08:05 05/27/21 08:05 05/27/21 08:05 Oxygen Flow Rate (L/min) 2 Oxygen Delivery Method Nasal Cannula Weight: 110.7 kg Body Mass Index (BMI) 33.0 Intake & Output: Intake and Output for Last 24 Hours 05/26/21 05/26/21 05/27/21 00:59 23:59 23:59 Intake Total Output Total 1000 / 1000 Balance -1000 / -1000 Lab / Micro Data Result Diagrams: 05/27/21 06:10 05/26/21 10:53 Labs: Laboratory Results - last 24 hr 05/26/21 10:53: WBC 10.3, RBC 3.70 L, Hgb 12.2 L, Hct 37.8 L, MCV 102.2 H, MCH 33.0 H, MCHC 32.3, RDW Std Deviation 50.4 H, RDW Coeff of Fredi 13.3, Plt Count 199, MPV 9.3, Immature Gran % (Auto) 0.900, Neut % (Auto) 73.9 H, Lymph % (Auto) 13.0 L, [place] % (Auto) 8.2, Eos % (Auto) 3.6, Baso % (Auto) 0.4, Absolute Neuts (auto) 7.7, Absolute Lymphs (auto) 1.34, Nucleated RBC % 0 05/26/21 10:53: Sodium 131 L, Potassium 4.3, Chloride 95 L, Carbon Dioxide 31.0, Anion Gap 5, BUN 14, Creatinine 0.71, Estim Creat Clear Calc 72.21, Est GFR (MDRD) Af Amer 140, Est GFR (MDRD) Non-Af 116, BUN/Creatinine Ratio 19.7, Glucose 112 H, Calcium 8.8, Magnesium 1.9 05/27/21 06:10: WBC 10.2, RBC 3.67 L, Hgb 12.0 L, Hct 37.5 L, MCV 102.2 H, MCH 32.7 H, MCHC 32.0, RDW Std Deviation 49.7 H, RDW Coeff of Fredi 13.1, Plt Count 232, MPV 9.7, Immature Gran % (Auto) 1.400 H, Neut % (Auto) 69.0, Lymph % (Auto) 14.0 L, [place] % (Auto) 11.5 H, Eos % (Auto) 3.6, Baso % (Auto) 0.5, Absolute Neuts (auto) 7.0, Absolute Lymphs (auto) 1.42, Nucleated RBC % 0 Micro: Microbiology 05/22/21 06:40 Sputum, Expectorated/Coughed Gram Stain - Final 05/22/21 06:40 Sputum, Expectorated/Coughed Respiratory Culture - Final 05/21/21 07:30 Nasal Secretion SARS-CoV-2 Antigen (Rapid) - Final 05/20/21 23:10 Interface Orders Respiratory Panel (PCR) - Final Physical Exam Narrative Alert awake oriented x 3 no obvious distress s1s2 no murmurs lungs clear abdomen soft no organomegaly no edema Assessment & Plan Assessment/Plan (1) Hyponatremia: PLAN: Acute on chronic hyponatremia. Patient has several risk factors for SIADH including COPD and use of Depakote. acute hyponatremia likely from depleted intravascular volume. Na level corrected at appropriate to rate to baseline with IVF Currently off IVF Last Na level 131 mmol/l as per yesterday lab Encouraged PO protein intake Ok to continue Depakote Needs follow up with nephrology clinic
[2021-05-27] MEDS: OLANZapine 10 MG Tablet PO (09:43)
[2021-05-27] MEDS: Senna/Docusate Sodium 1 Tablet 2 TABLET PO (09:43)
[2021-05-27] MEDS: Pantoprazole Sodium 20 MG Tablet PO (09:44)
[2021-05-27] MEDS: Divalproex (ER) 250 MG Tablet PO (09:44)
[2021-05-27] MEDS: Menthol/Lanolin/Calamine/Znox 113 GM Tube 1 APPLIC TOPICAL (09:44)
[2021-05-27] MEDS: Finasteride 5 MG Tablet PO (09:44)
[2021-05-27] MEDS: Nystatin Powder 15gm Bottle 1 APPLIC TOPICAL (09:44)
[2021-05-27] MEDS: Multivitamins,Ther W-Minerals Tablet 1 TABLET PO (09:44)
[2021-05-27] MEDS: Thiamine Hydrochloride 100 MG Tablet PO (09:44)
[2021-05-27] MEDS: OLANZapine 2.5 MG Tablet PO (09:45)
--- NOTE | 2021-05-27 09:55 | CASEMGMT ---
Social Work Note AMY placed a call to Hannah at [facility]. Pre-cert is still pending. Hannah states if pt is medically ready, pt could admit to SNF under Medicaid. AMY faxed updated clinicals to [facility]. Plan: [facility] pending pre-cert Verónica Jung COLLECTION ANALYST, PAPER HANDLER
[2021-05-27] MEDS: Acetaminophen 325 MG Tablet 650 MG PO (12:25)
--- NOTE | 2021-05-27 12:30 | TREXTCAR_ITS ---
Diet 05/26/21 09:12 Diet: Regular - General Type of Dietary Supplement:: Ensure Enlive Is pt able to select menu?: No Fluid restriction:: 1250 mL Diet Comments: 120 ensure enlive w/ meals Routine Orders/Code Status Suppository Frequency: Daily PRN O2 Liters per Minute: 2 O2 Frequency: Continuous Keep PO Greater than or Equal to (%): 90 Routine Lab Work: CBC and BMP Code Status: Full Code Wound(s) R knee: Wound Type: Surgical Incision right thigh/hip area: Wound Type: Surgical Incision Therapies Weight Bearing: Full weight bearing Physical Therapy: Eval and Treat Occupational Therapy: Eval and Treat Problem/Diagnosis (1) Hyponatremia: Status: Acute Allergies/Procedures Done in Hospital Allergies venom-honey bee [bee venom (honey bee)] Allergy (Severe, Verified 05/20/21 14:42) Anaphylaxis Type of Care/Length of Stay Estimated LOS: Convalescent Care Less Than 30 days Type of Care Needed: Skilled Rehab Potential: Good Prognosis: Fair Additional Orders/Day of Discharge Day of Discharge: 05/27/21 Dietary and Speech Recommendations Dietitian Recommendations/Changes: Will change diet to Cardiac d/t pmhx Rec discontinue fluid restriction once sodium level normalizes Will change ensure surgery to ensue enlive per pt preference Discharge Plan Admission Admit Date/Time: 05/20/21 18:38 Attending Provider: Danisha Harvey Primary Care Provider: Inocente Nichols Consulting Providers: Ras Plascencia ; Santino Rodarte ; Jones Osman ; Summer Lr [employer] SE[employer]ER ; Sandeep Nava Discharge Orders/Prescriptions Prescriptions: No Action divalproex 250 mg tablet extended release 24 hr 250 mg PO DAILY RF: 0 olanzapine 10 mg tablet 10 mg PO DAILY RF: 0 olanzapine 2.5 mg tablet 2.5 mg PO DAILY RF: 0 budesonide 180 mcg/actuation aerosol powdr breath activated 2 inh inhalation BID Qty: 1 RF: 5 albuterol sulfate 90 mcg/actuation HFA aerosol inhaler 1 - 2 puff inhalation 4X/DAY PRN PRN (Reason: Sob &/Or Wheezing) Qty: 8.5 RF: 5 divalproex 500 MG tablet extended release 24 hr 500 mg PO QHS RF: 0 cholecalciferol (vitamin D3) 1,000 UNIT tablet 2,000 unit PO DAILY RF: 0 melatonin 3 MG tablet 3 mg PO QHS RF: 0 tamsulosin 0.4 MG capsule 0.4 mg PO QHS RF: 0 finasteride 5 MG tablet 5 mg PO DAILY RF: 0 tizanidine 4 MG capsule 4 mg PO TID PRN PRN (Reason: Muscle Spasm) RF: 0 omeprazole 20 MG capsule 20 mg PO DAILY RF: 0 thiamine HCl (vitamin B1) 100 MG tablet 100 mg PO DAILYCM Qty: 30 RF: 0 folic acid 1 MG tablet 1 mg PO DAILY@0800 Qty: 30 RF: 0 multivitamin with folic acid 1 TABLET tablet 1 tab PO DAILYCM Qty: 30 RF: 0 hydrocodone-acetaminophen 5-325 mg tablet 1 tab PO PRN PRN (Reason: Pain) RF: 0 Referrals / Follow Up: Inocente Nichols MD [Primary Care Provider] -
--- NOTE | 2021-05-27 12:31 | DS.PCM_ITS ---
Providers Date of Admission: 05/20/21 Primary Care Physician: Dr. Inocente Nichols MD Consultations 05/20/21 20:58 Consult: Orthopedics Routine Consulting Provider: Ras Plascencai Reason for Consult: R hip fracture, fall. EMERGENT Consult: No Notified: Yes Date Notified: 05/20/21 Time Notified: 20:59 Method of Notification: called. 05/21/21 11:54 Consult: Steel Pickler / Pulmonary Medicine Routine Consulting Provider: Pulmonary Medicine kale Ismay Reason for Consult: COPD with acute exacerbation EMERGENT Consult: No Notified: Yes Date Notified: 05/21/21 Time Notified: 11:55 Method of Notification: Text 05/21/21 11:57 Consult: Nephrology Routine Consulting Provider: Sandeep Nava Reason for Consult: hyponatremia EMERGENT Consult: No Notified: Yes Date Notified: 05/21/21 Time Notified: 12:12 Method of Notification: Answering Service Reason For Visit: COPD EXACERBATION Diagnosis Discharge Diagnosis (1) Hyponatremia: Status: Acute Code(s): E87.1 - Hypo-osmolality and hyponatremia Medications at Discharge Home Medications cholecalciferol (vitamin D3) 2,000 unit PO DAILY 02/22/19 divalproex 500 mg PO QHS 02/22/19 finasteride 5 mg PO DAILY 02/22/19 melatonin 3 mg PO QHS 02/22/19 tamsulosin 0.4 mg PO QHS 02/22/19 tizanidine 4 mg PO TID PRN PRN 02/22/19 omeprazole 20 mg PO DAILY 01/09/20 folic acid 1 mg PO DAILY@0800 #30 tab 01/10/20 multivitamin with folic acid 1 tab PO DAILYCM #30 tab 01/10/20 thiamine HCl (vitamin B1) 100 mg PO DAILYCM #30 tab 01/10/20 divalproex 250 mg tablet,extended release 24 hr 250 mg PO DAILY tab 07/06/20 olanzapine 10 mg tablet 10 mg PO DAILY 07/06/20 olanzapine 2.5 mg tablet 2.5 mg PO DAILY 07/06/20 albuterol sulfate 90 mcg/actuation aerosol inhaler 1 - 2 puff INHALATION 4X/DAY PRN PRN #8.5 g 01/04/21 budesonide 180 mcg/actuation breath activated powder inhaler 2 inh INHALATION BID #1 ea 01/04/21 hydrocodone-acetaminophen 1 tab PO PRN PRN 05/20/21 Multivitamins,Ther W-Minerals [Multivitamin With Minerals (BKC)] 1 tab PO DAILYCM #0 05/27/21 guaifenesin 20 ml PO Q4H PRN PRN #0 ml 05/27/21 nicotine 14 mg TRANSDERMAL DAILY #0 ea 05/27/21 oxycodone 5 - 10 mg PO Q6H PRN 1 Days #8 tab 05/27/21 polyethylene glycol 3350 17 g PO DAILY #0 ea 05/27/21 rivaroxaban [Xarelto] 10 mg PO DAILY@0600 #0 tab 05/27/21 sennosides-docusate sodium [Stool Softener-Stimulant Laxat] 2 tab PO BID #0 tab 05/27/21 Hospital Course Operations total hip replacement Procedures 2-D Echocardiogram Summary of Care Provided Minutes Spent on Discharge: 42 Hospital Course: Mr. Damian is a 71-year-old white male who presented to the emergency department [facility] on 05/20/2021 with a chief complaint of fatigue, nonproductive cough with wheezing, and a mechanical fall with intractable right hip pain. He evidently suffered a near syncopal event and fell to the ground onto his right hip and had had ongoing right-sided hip pain as well as a cough with no fevers or chills. This cough is nonproductive. In the emergency department plain films of his right hip showed a right femoral neck fracture with impaction and varus angulation of fracture fragments and he was also noted to have an acute exacerbation of COPD upon presentation. For his COPD he was treated with supplemental oxygen, nebulizer treatments, steroids, incentive spirometer and further diagnostic studies were performed to rule out viral or bacterial pneumonia. His sputum culture was negative, his COVID-19 rapid antigen was negative and of his respiratory panel were negative. He did well with regards to his breathing and reported upon discharge that his breathing was back to his baseline or close to it although he was requiring 2 L of oxygen. I do question whether or not he needs oxygen at baseline and does not utilize this. He also is a chronic smoker and we discussed discontinuation of smoking tobacco especially while he is on oxygen and discussed the complications that can result from smoking on oxygen. With regards to his hip, medical clearance was obtained and he was seen by pulmonary medicine as well as nephrology and an echocardiogram were performed. He was seen by orthopedic surgery and taken to the OR on 05/22/2021 where a right total hip arthroplasty was performed. He tolerated this well and his weightbearing status is weightbearing as tolerated. He is to continue Xarelto for 2 weeks postoperatively and follow-up in Dr. Plascencia's office in 2 weeks for a postop recheck. Nephrology evaluated the patient for hyponatremia which appears to be chronic. He has several risk factors for SIADH including COPD and his Depakote use as well as chronic alcohol use which could set him up for chronic hyponatre yecenia as well. It was suspected that his acute hyponatremia which has now resolved, is likely related to depleted intravascular volume as his sodium corrected with IV fluids. His sodium was 131 on the day prior to discharge which was much improved. They were okay with him continuing his Depakote and encourage protein intake orally and recommended follow-up in the nephrology clinic after discharge. Discharge diagnoses: Acute exacerbation of COPD-resolving Right femoral neck fracture-status post total hip arthroplasty Acute on chronic hyponatremia-at baseline on discharge COPD Mechanical fall History of adenocarcinoma of the left lung Pulmonary artery hypertension secondary to lung disease CAD GERD BPH Bipolar disorder Alcohol abuse Tobacco dependence Hypertension Hyperlipidemia PVD Physical Exam Const alert, oriented x3, no apparent distress, average body habitus and no limitations Constitutional Narrative: Older white male who appears much older than stated ag e, sitting up in a chair, respiratory therapy at bedside, patient appears well and comfortable at this time General Appearance: cooperative, comfortable, well kempt and well developed Orientation / Consciousness: awake Exam Limitations: no limitations Nutritional Appearance: obese HEENT normocephalic, head/scalp atraumatic, moist oral mucous membranes and oropharynx normal HEENT Narrative: Slightly hard of hearing Mouth: oral and palatal mucosa normal Eyes PERRL, EOMs intact bilaterally and conjunctivae normal Eyes Narrative: No scleral icterus Neck no lymphadenopathy, supple and no JVD Neck Narrative: Trachea midline, no thrush Resp normal respiratory effort, no retractions, no use of accessory muscles and clear to auscultation bilaterally Resp Narrative: Coarse diffuse lung sounds with expiration, diminished diffusely Auscultation: Negative for crackles, rales, rhonchi or wheezes Cardio regular rate, regular rhythm, S1 normal heart sound, S2 normal heart sound, no murmurs, no rub, no gallops, no clicks and no JVD GI normal to inspection, nondistended, normoactive bowel sounds, soft to palpation, non-tender and non-distended Extremity no clubbing, cyanosis or edema Skin no rashes or lesions noted, skin turgor normal and no jaundice Neuro oriented x3, CN's II-XII intact bilaterally, moves all extremities and no focal motor deficits Neuro Narrative: Weakness on operative side, mild neuropathy Sensorium / Orientation: awake, alert, oriented to person, oriented to place and oriented to time Speech: speech normal Psych affect normal Weight / BMI Weight Weight: 110.7 kg Body Mass Index (BMI) 33.0 ABG / Lab / Microbiology Data Result Diagrams: 05/27/21 06:10 05/26/21 10:53 Laboratory: Laboratory Results - last 24 hr 05/27/21 06:10: WBC 10.2, RBC 3.67 L, Hgb 12.0 L, Hct 37.5 L, MCV 102.2 H, MCH 32.7 H, MCHC 32.0, RDW Std Deviation 49.7 H, RDW Coeff of Fredi 13.1, Plt Count 232, MPV 9.7, Immature Gran % (Auto) 1.400 H, Neut % (Auto) 69.0, Lymph % (Auto) 14.0 L, [place] % (Auto) 11.5 H, Eos % (Auto) 3.6, Baso % (Auto) 0.5, Absolute Neuts (auto) 7.0, Absolute Lymphs (auto) 1.42, Nucleated RBC % 0 Microbiology: Microbiology 05/22/21 06:40 Sputum, Expectorated/Coughed Gram Stain - Final 05/22/21 06:40 Sputum, Expectorated/Coughed Respiratory Culture - Final 05/21/21 07:30 Nasal Secretion SARS-CoV-2 Antigen (Rapid) - Final 05/20/21 23:10 Interface Orders Respiratory Panel (PCR) - Final D/C Instructions Discharge Diet: Low fat / Low cholesterol Discharge Activity: Use Walker Weight Bearing Status: Weight bearing as tolerated Keep extremity elevated above heart level: Operative Extremity Meaningful Use Info Meaningful Use Diagnoses (Choose all that apply): None applicable Discharge Plan Admission Admit Date/Time: 05/20/21 18:38 Primary Reason for Your Visit: Acute exacerbation of COPD/hip fracture Attending Provider: Danisha Harvey Primary Care Provider: Inocente Nichols Consulting Providers: Ras Plascencia ; Satnino Rodarte ; Jones Osman ; Summer Lr NP ; Sandeep Nava Discharge Orders/Prescriptions Prescriptions: New nicotine 14 mg/24 hr Patch 24 Hour 14 mg transdermal DAILY Qty: 0 RF: 0 guaifenesin 100 mg/5 mL Liquid 20 ml PO Q4H PRN PRN (Reason: Cough) Qty: 0 RF: 0 Xarelto 10 mg Tablet 10 mg PO DAILY@0600 Qty: 0 RF: 0 Multivitamins,Ther W-Minerals [Multivitamin With Minerals (Bkc)] 1 tab PO DAILYCM Qty: 0 RF: 0 polyethylene glycol 3350 17 gram Powder In Packet 17 g PO DAILY Qty: 0 RF: 0 sennosides-docusate sodium [Stool Softener-Stimulant Laxat] 8.6-50 mg Tablet 2 tab PO BID Qty: 0 RF: 0 oxycodone 5 mg Tablet 5 - 10 mg PO Q6H PRN (Reason: pain (scale score 7-10)) 1 Days Qty: 8 RF: 0 Continued divalproex 250 mg tablet extended release 24 hr 250 mg PO DAILY RF: 0 olanzapine 10 mg tablet 10 mg PO DAILY RF: 0 olanzapine 2.5 mg tablet 2.5 mg PO DAILY RF: 0 budesonide 180 mcg/actuation aerosol powdr breath activated 2 inh inhalation BID Qty: 1 RF: 5 albuterol sulfate 90 mcg/actuation HFA aerosol inhaler 1 - 2 puff inhalation 4X/DAY PRN PRN (Reason: Sob &/Or Wheezing) Qty: 8.5 RF: 5 divalproex 500 MG tablet extended release 24 hr 500 mg PO QHS RF: 0 cholecalciferol (vitamin D3) 1,000 UNIT tablet 2,000 unit PO DAILY RF: 0 melatonin 3 MG tablet 3 mg PO QHS RF: 0 tamsulosin 0.4 MG capsule 0.4 mg PO QHS RF: 0 finasteride 5 MG tablet 5 mg PO DAILY RF: 0 tizanidine 4 MG capsule 4 mg PO TID PRN PRN (Reason: Muscle Spasm) RF: 0 omeprazole 20 MG capsule 20 mg PO DAILY RF: 0 thiamine HCl (vitamin B1) 100 MG tablet 100 mg PO DAILYCM Qty: 30 RF: 0 folic acid 1 MG tablet 1 mg PO DAILY@0800 Qty: 30 RF: 0 multivitamin with folic acid 1 TABLET tablet 1 tab PO DAILYCM Qty: 30 RF: 0 hydrocodone-acetaminophen 5-325 mg tablet 1 tab PO PRN PRN (Reason: Pain) RF: 0 Referrals / Follow Up: Ras Plascencia MD [STAFF PHYSICIAN] - Within 2 Weeks (Hospital follow-up) Inocente Nichols MD [Primary Care Provider] - Within 2 Weeks (Hospital follow- up) Sandeep Nava MD [STAFF PHYSICIAN] - Within 1 Month (Hyponatremia) Santino Rodarte MD [STAFF PHYSICIAN] - Within 3 Months (COPD) Disposition Disposition (needs filled in before D/C Order can be placed): Group Home Facility Charges/Coding Visit Charges Inpatient E&M: 77732 SNF Disch >30 Min
--- NOTE | 2021-05-27 16:00 | CASEMGMT ---
Social Work Note Pt is medically ready for discharge today. AMY placed a call to Hannah at [facility] and updated her. Hannah states pt can admit to [facility] with pre-cert pending under pt's medicaid. Hannah states a PAS/RR will need to be completed since pt is admitting under Medicaid. AMY reviewed chart. Pt with Mental Health diagnosis of Bipolar disorder and substance abuse disorder of ETOH abuse. SW in to speak with pt. SW asked pt about Mental Health Hx and Substance Abuse Hx. Pt confirms that he is Bipolar, states he was in counseling long time ago. Pt states that the last time he went to counseling was more than 2 years ago. Pt states that his Bipolar Medication is managed through his PCP. SW completed PAS/RR. Pt did not trip the screen. AMY faxed completed discharge paperwork to [facility] including transfer to extended care facility, signed medication list, any scripts, PAS/RR, COVID test/tool. Original in SNF folder and copy on pt's chart. AMY spoke with RN, pt to transport via wheelchair van. Pt has [facility] so this worker called [facility] to arrange transportation via wheelchair van. AMY spoke with Stefano at [facility] and requested physician's ambulance transport pt. AMY informed Stefano that pt will need a wheelchair for transport and will need 2 liters of Oxygen. Stefano asked if pt should transport via BLS (COT) then. AMY informed Stefano that physician's wheelchair van can accommodate oxygen but informed Stefano that this worker could call physicians for cot transport if that is what [facility] prefers. Stefano states he [place] [id number]. Stefano states that the routing department will call this worker when trip has been assigned company to transport pt. Stefano states if no one calls this worker in half hour to call [employer]. AMY reviewed Physician's trip list. Pt's transportation has been assigned to physician's and they will be at [facility] at 6:30pm to transport pt. AMY updated RN. AMY placed a call to Hannah at [facility] and left message updating her. AMY updated pt on transportation. Pt states to make sure he gets his pain pill at 6:00pm then. AMY updated RN. Plan: [facility] skilled under PAS/RR level of care with physician's transporting pt via wheelchair van at 6:30pm Verónica PATHAK, REMOTE RECRUITER
--- NOTE | 2021-05-27 17:00 | CASEMGMT ---
Social Work Note Physicians is at [facility] now to transport pt. AMY placed a call to Hannah at [facility] and updated her. AMY placed a call to pt's CM Veda Todd and left message updating her that pt discharged to [facility]. AMY faxed discharge paperwork to Veda Todd at [facility]. Verónica Jung LIGHT INDUSTRIAL SUPERVISOR, HOTEL OPERATION MANAGER
--- NOTE | 2021-05-27 17:15 | NURSING ---
Report called to Gilda Simon. [facility] at bedside preparing pt for transport.
--- NOTE | 2021-05-28 08:05 | CASEMGMT ---
TC to Bri at [facility] to make aware that pt dc'd to [facility] yesterday.
== END 2021-05-27 17:15 | disposition skilled nursing facility (03) | DRG 522 ==
LOC: ED 18:11 → MS3 18:46
PROVIDERS: Anesthesiology; Internal Medicine; Internal Medicine Nephrology; Pediatrics Pediatric Nephrology; Physician Assistant; Specialist; Admitting Provider Family Medicine; Emergency Provider Emergency Medicine; PCP Internal Medicine; Visit Provider Internal Medicine
PROC: 0SR90JZ Replacement of Right Hip Joint with Synthetic Substitute, Open Approach (ICD-10-PCS; CPT 27125; principal; 2021-05-22 11:40)
DX: S72.011A Unspecified intracapsular fracture of right femur, initial encounter for closed fracture (principal); E87.1 Hypo-osmolality and hyponatremia; J44.1 Chronic obstructive pulmonary disease with (acute) exacerbation; W18.30XA Fall on same level, unspecified, initial encounter; I10 Essential (primary) hypertension; E78.5 Hyperlipidemia, unspecified; F10.20 Alcohol dependence, uncomplicated; R62.7 Adult failure to thrive; N40.0 Benign prostatic hyperplasia without lower urinary tract symptoms; K21.9 Gastro-esophageal reflux disease without esophagitis; K59.00 Constipation, unspecified; F31.9 Bipolar disorder, unspecified; I25.10 Atherosclerotic heart disease of native coronary artery without angina pectoris; I73.9 Peripheral vascular disease, unspecified; I27.21 Secondary pulmonary arterial hypertension; Y92.009 Unspecified place in unspecified non-institutional (private) residence as the place of occurrence of the external cause; E78.00 Pure hypercholesterolemia, unspecified; I48.0 Paroxysmal atrial fibrillation; R60.0 Localized edema; F41.8 Other specified anxiety disorders; F17.210 Nicotine dependence, cigarettes, uncomplicated; Z85.118 Personal history of other malignant neoplasm of bronchus and lung; Z92.3 Personal history of irradiation; Z79.01 Long term (current) use of anticoagulants; Z80.1 Family history of malignant neoplasm of trachea, bronchus and lung; Z80.42 Family history of malignant neoplasm of prostate; Z95.5 Presence of coronary angioplasty implant and graft
CPT/HCPCS: 36415; 36600; 71046; 73501; 73502; 73521; 74019; 76000; 80048; 80076; 82077; 82436; 82803; 83735; 83880; 83930; 83935; 84100; 84133; 84145; 84295; 84300; 84484; 85025; 85610; 85730; 86850; 86900; 86901; 87070; 87205; 87426; 87633; 88305; 88307; 88311; 93005; 93306; 93971; 94002; 94640; 97110; 97162; 97166; 97530; 99251; 99285; 99406; C1776; J7030; Q9957; A4216; C8929; G0463; J3490

== ENCOUNTER → 2021-06-21 13:45 | Outpatient (CLI) | payer MEDICARE, MEDICAID, SELFPAY ==
--- NOTE | 2021-06-21 13:50 | CT_ITS ---
STUDY: CT CHEST T ABDOMEN WITH CONTRAST REASON FOR EXAM: Male, 71 years old patient presents for follow-up of lung cancer. Evaluate left upper lobe (ELIZABETH) and right lower lobe (RLL) abnormality. RADIATION DOSAGE (If Supplied By Facility): CTDIvol = ( 27.33 ) mGy, DLP = ( 2046.64 ) mGycm TECHNIQUE: Transaxial imaging was performed following intravenous administration of 100 mL of Isovue-300. Multiplanar coronal and sagittal images were reformatted. Individualized dose optimization techniques were used for this CT. COMPARISON: CT of the chest, abdomen and pelvis dated 04/01/2021. FINDINGS: CHEST The lungs are expanded. There are multiple right lower lobe pulmonary nodules with the largest measuring 1.9 cm in greatest dimension. This is larger than was on previous CT. There are two additional right lower lobe pulmonary nodules which also are larger since the previous CT. There is a left upper lobe pulmonary nodule measuring 2.3 x 1.1 x 1.7 cm in size. This nodule appears spiculated. This appears similar to previous study. There is no demonstrated pleural abnormality. Normal heart and pericardium. There are calcifications of the coronary arteries. There is thickening of the esophageal hooker which measure approximately 8.3 mm There are multiple small lymph nodes within the mediastinum, which are normal in size and morphology most compatible with reactive lymph hyperplasia. Normal hilar regions. Normal unenhanced pulmonary arteries. There is atherosclerotic calcification of the aortic arch with tortuosity and elongation of the aortic arch and descending thoracic aorta. Maximum transverse dimension of the ascending thoracic aorta measures approximately 3.8 cm. There is an increased kyphosis of the thoracic spine. The bones are osteopenic. There is deformity of the sternum suggesting sequela of previous fracture. There is deformity of several left-sided ribs suggesting older fractures. ABDOMEN Normal liver. There are multiple gallstones. Normal spleen. There is diffuse atrophy of the pancreas. Normal bilateral adrenal glands. There are multiple bilateral renal cysts with the largest measuring approximately 1.5 cm. There also small left-sided renal cysts. There is no evidence for hydronephrosis, hydroureter or radiopaque ureteral calculus. There are vascular calcifications in the renal sofía. There is a small hiatal hernia. There is no obvious dilated bowel, ascites or pneumoperitoneum. There is stool visible throughout most of the colon with scattered diverticula. There is non-visualization of the appendix. There is diffuse atherosclerotic calcification of the abdominal aorta and iliac arteries, without a demonstrated aneurysm. Normal inferior vena cava. Normal retroperitoneum. Normal abdominal wall. The bones are osteopenic. There is moderate compression fracture of L1 with estimated amount of compression of approximately 50%. This is similar to previous study. There are multilevel degenerative changes of the lumbar spine with disc space narrowing and vacuum disc phenomenon. CT/CT Chest AND Abd W/ Contrast IMPRESSION: 1. Enlarging right lower lobe pulmonary nodules. 2. Unchanged appearance of the left upper lobe pulmonary nodule. 3. Cholelithiasis. 4. Multiple renal cysts. Electronically Signed: Teena White MD at 5:53 EST , Service support ,
== END ==
PROVIDERS: PCP Internal Medicine; Referring Provider Student in an Organized Health Care Education/Training Program; Visit Provider Student in an Organized Health Care Education/Training Program
DX: C34.92 Malignant neoplasm of unspecified part of left bronchus or lung (principal)
CPT/HCPCS: 71260; 74160; Q9967

== ENCOUNTER → 2021-07-04 10:26 | Outpatient (CLI) | payer MEDICARE, MEDICAID, SELFPAY ==
[2021-07-04] VITALS (13 sets, daily range): BP systolic 142–187; BP diastolic 55–104; PULSE 46–63; RESP 14–28; TEMP 36.7; O2SAT 95–99; BMI 33.9
--- NOTE | 2021-07-04 | ASPIGT_PTH ---
PATIENT: KELLY YOU LOC: [place] U#:[id number] AGE/SX: 75/M ROOM: RE07/04/[address]: Dr. Aidan Niño DO : 1950 BED: DIS: SPEC #: [id number] RECD: 07/04/21 12:15 STATUS: CANDIDO JAJA #: [id number] CLARISA: 07/04/21 00:[address]: Aidan Niño DEPT: SURGICAL PATHOLOGY RECD BY: Raheel Rivera ENTERED: 07/04/21 12:31 SP TYPE: ASP RAD OTHR DR: Dr. Inocente Nichols MD Tissues: Lung, NOS Procedures: FNA Specimen Adequacy Special Stain Group II Surgery Specimen Level IV Imprint (control) HEADER OPERATION: CT-guided lung biopsy PRE-OP DIAGNOSIS: Right lung nodule TISSUE SUBMITTED: Right lung 20-gauge x4 MICROSCOPIC DIAGNOSIS Right lung, CT-guided core biopsy: Adenocarcinoma, bronchioalveolar type. See comment. AM:frankie 07/05/2021 COMMENT The specimen is evaluated at the time of biopsy by Dr. West. Immediate Evaluation = Positive for malignant cells, non-small carcinoma. Immunohistochemistry ([id number]) supports the above diagnosis. Reference is made to the patient's left upper lobe lung biopsy, CT-guided ([id number]) in which non-small cell carcinoma, favor adenocarcinoma, was identified. MICROSCOPIC DESCRIPTION Slides are reviewed. GROSS DESCRIPTION Received in fixative is one container labeled with the patient's name and designated right lung. The specimen consists of multiple irregular and elongated fragments of castro tissue that in aggregate measure 1 x 0.2 x <0.1 cm. The specimen is totally submitted in one cassette. / AM:frankie 07/04/21 TC:0 CPT: 73001, 63031
--- NOTE | 2021-07-04 | IMM_PTH ---
PATIENT: KELLY YOU LOC: [place] U#:[id number] AGE/SX: 75/M ROOM: RE07/04/[address]: Dr. Aidan Niño DO : 1950 BED: DIS: SPEC #: [id number] RECD: 07/05/21 14:41 STATUS: CANDIDO REJamar #: [id number] CLARISA: 07/04/21 00:[address]: Aidan Niño DEPT: IMMUNOHISTOCHEMISTRY RECD BY: Ginny Carmichael ENTERED: 07/05/21 14:42 SP TYPE: IMMUNO OTHR DR: Dr. Inocente Nichols MD Tissues: Right lung, NOS Procedures: Synapto (add) NAPSIN A (add) CHROMO (add) CK14 (add) CK20 (add) CK7 (add) CK8 (add) WALTERS-2 (add) KI-67 (add) P53 (add) TTF1 (add) Vimentin (add) 34BE12 (add) Pankeratin (initial) P40 (add) S-100 (add) PHYSICIAN & [address] [address] SPECIMEN INFORMATION: Tissue Source: Right lung Clinical Info: Right lung nodule Specimen Number: Right lung CPT code: 63260, 50834 x15 METHODOLOGY: Deparaffinized sections of prefer/formalin-fixed tissue or PAP/DQ stained slides are incubated with monoclonal/polyclonal antibodies/oligonucleotide probes. Localization is made via biotin free immunoperoxidase method. Appropriate controls are performed and reacted as expected. Results on target cell population are indicated in the following table: RESULTS: ANTIBODY / CLONE RESULT AE1-3 (AE1/AE3/PCK26) positive CK7 (OV-TL12/30) positive CK8 (93noemD93) positive CK20 (KS20.8) negative WALTERS-2 (SP21) positive Vimentin (V9) negative 34BE12 (34BE12) positive S-100 (4C4.9) negative Chromo (LK2H10) negative Synapto (polyclonal) negative TTF-1 (8G7G3/1) positive Napsin A (Rabbit Polyclonal) positive CK14 (LL002) negative P40 (BC28) negative P53 (DO-7) positive, 20% Ki-67 (30-9) negative, 0% These tests were developed and their performance characteristics determined by [facility]. They may not have been cleared or approved by the U.S. Food and Drug Administration. The FDA has determined that such clearance or approval is not necessary. The above immunohistochemical/dualISH markers are ordered and reviewed by the Pathologist. INTERPRETATION: Right lung, CT-guided biopsy: Consistent with bronchioalveolar carcinoma of lung. AM:frankie 07/08/2021
--- NOTE | 2021-07-04 10:15 | RAD_ITS ---
STUDY: X-RAY CHEST REASON FOR EXAM: Male, 71 years old. Pneumothorax -- Immediately post lung biopsy TECHNIQUE: AP inspiration and expiration views. COMPARISON: Comparison is made with prior study dated 05/20/2021. FINDINGS: Immediate post right lung biopsy radiographs. No evidence of pneumothorax. RAD/Chest Insp/Exp 2 View IMPRESSION: No evidence of pneumothorax on the immediate post right lung biopsy radiographs. Electronically Signed: Emiliano Floyd MD at 12:47 EST , Service support ,
[2021-07-04 10:48] LABS: Platelet Count 295 K/mm3 (150-450)
[2021-07-04 11:03] LABS: Partial Thromboplast Time 27.7 Seconds (24.1-36.2)
--- NOTE | 2021-07-04 11:24 | CT_ITS ---
PROCEDURE: CT GUIDED CORE NEEDLE BIOPSY OF A right lower lobe LUNG LESION INDICATION: Male, 71 years old. Enlarging RLL nodules, CT guided biopsy PHYSICIAN: Dr. YESSI Meyer CONSENT: Written informed consent was obtained having explained the risks including pneumothorax and bleeding, benefits and alternatives in detail with the patient who accepted the risks and agreed to proceed. Laboratory review and clinical assessment was performed. CONSCIOUS SEDATION PROTOCOL: The Drugs used were: 2 mg Versed, IV., and 50 mcg Fentanyl, IV. The sedation time was: 22 minutes. Conscious sedation was started at 11:34 AM and terminated at 11:56 AM The conscious sedation protocol was independently monitored. RADIATION DOSAGE (If Supplied By Facility): CTDIvol = ( 10 ) mGy, DLP = ( 721.18 ) mGycm Individualized dose optimization techniques were used for this CT. TECHNIQUE: The patient was placed in the prone position. A noncontrast CT was performed to localize the lesion in the posterior right lower lobe . The skin surface was prepped and draped in a sterile fashion. 1% lidocaine was used for local anesthesia. Using CT guidance, a 20-gauge coaxial biopsy device was advanced to the periphery of the lesion. A total of 4 core specimens were obtained. The specimens were placed in a formalin solution. A post procedure CT demonstrated no adverse sequelae or pneumothorax. An occlusive device was placed at the puncture site. The patient tolerated the procedure well without adverse event. A negative biopsy does not exclude malignancy. Further imaging or clinical followup based on patient condition and degree of clinical suspicion for malignancy. Suggest rebiopsy, if biopsy results do not match with clinical scenario. CT/Biopsy/Inj or Needle Placement IMPRESSION: 1. CT directed core needle biopsy of the right lower lobe pulmonary nodule using CT image guidance with image documentation as described. Pathology results are pending. 2. Conscious Sedation protocol utilized with independent monitoring. Electronically Signed: Emiliano Floyd MD at 12:33 EST , Service support ,
[2021-07-04] MEDS: Midazolam 2 MG/2 ML Syringe IV ×2 (11:34→11:44)
[2021-07-04] MEDS: fentaNYL 100 MCG/2 ML Ampul IV ×2 (11:37→11:46)
[2021-07-04] MEDS: Lidocaine 2% (20 ml mdv) 20 ML Vial INFILT (11:45)
--- NOTE | 2021-07-04 12:15 | RAD_ITS ---
STUDY: X-RAY CHEST REASON FOR EXAM: Male, 71 years old. Pneumothorax -- 2 hours post lung biopsy TECHNIQUE: AP inspiration and expiration views. COMPARISON: Comparison is made with prior study done earlier today. FINDINGS: No evidence of a pneumothorax on the 2 hour delayed images following the right lung biopsy. RAD/Chest Insp/Exp 2 View IMPRESSION: No evidence of pneumothorax on the delayed images. Electronically Signed: Emiliano Floyd MD at 9:49 EST , Service support ,
--- NOTE | 2021-07-04 14:38 | NURSING ---
Verbal Report given to nurse, Rosetta, at [facility]. Nurse is aware that pt's chest xray were cleared by radiologist, but that if pt develops sudden shortness of breath or chest pain to call 911 and get pt to the hospital due to risk of pneumothorax. Nurse also aware no bathing for 24 hours post-procedure and to watch for signs/symptoms of infection.
== END | disposition home or self-care (01) ==
PROVIDERS: PCP Internal Medicine; Referring Provider Student in an Organized Health Care Education/Training Program; Visit Provider Student in an Organized Health Care Education/Training Program
DX: C34.91 Malignant neoplasm of unspecified part of right bronchus or lung (principal)
CPT/HCPCS: 32408; 36415; 71046; 77012; 85049; 85610; 85730; 88172; 88305; 88313; 88341; 88342; 99156; J7040; A4216; C2613

== ENCOUNTER 2021-10-10 08:53 | Outpatient (CLI) | payer MEDICARE, MEDICAID, SELFPAY ==
--- NOTE | 2021-10-11 07:18 | PFT_ITS ---
INTRODUCTION: The patient is a 71-year-old male that presents for pulmonary function studies secondary to a diagnosis of COPD. Respiratory therapy reported good patient effort. Bronchodilators were used during testing. INTERPRETATION: Forced expiration spirometry demonstrates the presence of a moderately severe large airways obstructive ventilatory defect. There was a significant response to aerosolized bronchodilators noted. Spirograms are of fair quality but do not plateau indicating slow emptying of the lungs. Body plethysmography was performed and reveals lung volumes to be within normal limits. Diffusing capacity by single breath CO is reduced at 68% of predicted. IMPRESSION: Partially reversible moderately severe large airways obstructive ventilatory d efect with preserved lung volumes and mild reduction in diffusing capacity.
== END 2021-10-10 23:59 | disposition home or self-care (01) ==
PROVIDERS: PCP Internal Medicine; Referring Provider Internal Medicine Critical Care Medicine; Visit Provider Internal Medicine Critical Care Medicine
DX: J44.9 Chronic obstructive pulmonary disease, unspecified (principal); F17.200 Nicotine dependence, unspecified, uncomplicated
CPT/HCPCS: 94060; 94726; 94729

== ENCOUNTER 2021-10-11 12:22 | Outpatient (CLI) | payer MEDICARE, SELFPAY ==
[2021-10-11 12:58] VITALS: PULSE 49; PULSE 50; PULSE 66; PULSE 68; PULSE 69; PULSE 70; PULSE 71; O2SAT 93; O2SAT 94; O2SAT 95; O2SAT 96; O2SAT 97
--- NOTE | 2021-10-11 13:01 | CPS ---
PATIENT ARRIVED FOR 6MWT IN W/C WITH WALKER. DENIES SOB AT REST. TELLS ME HE HAS NOT WALKED MUCH SINCE HIS D/C FROM [facility] 2 WKS AGO AND IS ANXIOUS ABOUT THIS TEST. HE USED HIS WALKER FOR STABILITY, W/C WAS PUSHED BEHIND HIM DURING TEST. HE REQUIRED REST BREAK FOR MINUTES 3/4 DURING TESTING AND TOOK A BRIEF REST DURING MINUTE 5, ALL D/T INCREASED WOB AND LEG FATIGUE. SPO2 MAINTAINED ABOVE 88% FOR TESTING.
--- NOTE | 2021-10-11 13:41 | PCM.PSN.6M ---
PSN 6 Minute Walk Test 6 Minute Walk Test 6 Minute Walk Test: 6 Minute Walk Test PSN:6-Minute Walk Test Start: 10/11/21 12:57 Freq: Status: Active Protocol: RESP.6MINW Document 10/11/21 12:58 [facility] (Rec: 10/11/21 13:04 [facility] [id number][facility] 6 Minute Walk Test Date Performed 10/11/21 Time Performed 12:30 Height 6 ft Weight: 117.027 kg Weight in Pounds 258.[address]: Santino Rodarte Assistive device used: Walker Pre-test Oxygen Delivery Method Room Air Pulse Ox (%) 96 Pulse Rate (60-100 beats/min) 49 L Dyspnea Curtis Scale (0-10) 0 1st minute Oxygen Delivery Method Room Air Pulse Ox (%) 94 Pulse Rate (60-100 beats/min) 69 Dyspnea Curtis Scale (0-10) 3 Number of Rests Taken 0 Reported Symptoms Increased Work of Breathing 2nd minute Oxygen Delivery Method Room Air Pulse Ox (%) 93 Pulse Rate (60-100 beats/min) 68 Dyspnea Ucrtis Scale (0-10) 3 Number of Rests Taken 0 Reported Symptoms Increased Work of Breathing 3rd minute Oxygen Delivery Method Room Air Pulse Ox (%) 94 Pulse Rate (60-100 beats/min) 68 Dyspnea Curtis Scale (0-10) 2 Number of Rests Taken 1 Reported Symptoms Increased Work of Breathing 4th minute Oxygen Delivery Method Room Air Pulse Ox (%) 95 Pulse Rate (60-100 beats/min) 66 Dyspnea Curtis Scale (0-10) 2 Number of Rests Taken 1 Reported Symptoms Increased Work of Breathing 5th minute Oxygen Delivery Method Room Air Pulse Ox (%) 94 Pulse Rate (60-100 beats/min) 70 Dyspnea Curtis Scale (0-10) 4 Number of Rests Taken 1 Reported Symptoms Increased Work of Breathing 6th minute Oxygen Delivery Method Room Air Pulse Ox (%) 93 Pulse Rate (60-100 beats/min) 71 Dyspnea Curtis Scale (0-10) 4 Number of Rests Taken 0 Reported Symptoms Increased Work of Breathing Post-test Oxygen Delivery Method Room Air Pulse Ox (%) 97 Pulse Rate (60-100 beats/min) 50 L Dyspnea Curtis Scale (0-10) 1 Full Laps Walked 3 Partial Lap, Number of Tiles Walked 37 Total Distance Walked (ft) 214 10/11/21 13:01 Cardiopulmonary Services by Snehal Levine PATIENT ARRIVED FOR 6MWT IN W/C WITH WALKER. DENIES SOB AT REST. TELLS ME HE HAS NOT WALKED MUCH SINCE HIS D/C FROM [facility] 2 WKS AGO AND IS ANXIOUS ABOUT THIS TEST. HE USED HIS WALKER FOR STABILITY, W/C WAS PUSHED BEHIND HIM DURING TEST. HE REQUIRED REST BREAK FOR MINUTES 3/4 DURING TESTING AND TOOK A BRIEF REST DURING MINUTE 5, ALL D/T INCREASED WOB AND LEG FATIGUE. SPO2 MAINTAINED ABOVE 88% FOR TESTING. Initialized on 10/11/21 13:01 - END OF NOTE Interpretation Interpretation: The patient ambulated 214 feet over the course of 6 minutes beginning on room air with the use of a walker. Pretesting oxygen saturation was noted to be 96% on room air. With ambulation, the dayan oxygen saturation was 93%. Although there was evidence of impaired walk distance, there was no significant exertional oxygen desaturation. Recommendations Recommendations: There is no indication for the use of supplemental oxygen at this time.
== END 2021-10-11 23:59 | disposition home or self-care (01) ==
LOC: PSN 12:23
PROVIDERS: PCP Internal Medicine; Referring Provider Internal Medicine Critical Care Medicine; Visit Provider Internal Medicine Critical Care Medicine
DX: J44.9 Chronic obstructive pulmonary disease, unspecified (principal); F17.200 Nicotine dependence, unspecified, uncomplicated
CPT/HCPCS: 94618

== ENCOUNTER 2021-12-26 10:00 | Outpatient (RCR) | payer MEDICARE, MEDICAID, SELFPAY ==
[2021-12-19 09:21] VITALS: BP 161/57; PULSE 53; RESP 18; TEMP 36.4; BMI 32.8
--- NOTE | 2021-12-19 10:15 | PCM.WC.HP ---
History of Present Illness Date of Service: 12/19/21 Chief Complaint: Buttock Ulcer History of Wound: Mr. Damian is a 71-year-old who presents to the wound center due to non healing Ulcers. Status post hip surgery in May following which he was discharged to a care home. He states that while he was in the care home he developed this also has. He was subsequently discharged home where home health had been caring for him however no significant improvement so he presents here. He states that he states most days in his recliner. Unable to stand for too long so spends most of his time in his recliner asked. Smokes. No known history of diabetes mellitus. At this time, he denies chills, fever or feeling of unwell. [facility] Medical History (Updated 12/19/21 @ 10:[address] Victor Hugo Han MD) Adult failure to thrive Alcohol dependence Anxiety Bipolar disorder BPH without obstruction/lower urinary tract symptoms CAD (coronary artery disease) Cancer Closed subcapital fracture of right femur COLD (chronic obstructive lung disease) COPD (chronic obstructive pulmonary disease) Decubitus ulcer of right buttock, stage 2 Dyspnea GERD (gastroesophageal reflux disease) High cholesterol History of COPD HLD (hyperlipidemia) HTN (hypertension) Irregular heartbeat Lymphedema Nodule of right lung Nondisp fx proximal phalanx lesser toe right foot w/routine heal Paroxysmal atrial fibrillation PVD (peripheral vascular disease) Smoker Stage I decubitus ulcer and pressure area Stenosis of esophagus Tobacco use disorder Home Medications cholecalciferol (vitamin D3) 2,000 unit PO DAILY 02/22/19 [History Last Taken 05/20/21] divalproex 500 mg PO QHS 02/22/19 [History Last Taken 05/19/21] finasteride 5 mg PO DAILY 02/22/19 [History Last Taken 05/20/21] melatonin 3 mg PO QHS 02/22/19 [History Last Taken 05/19/21] tamsulosin 0.4 mg PO QHS 02/22/19 [History Last Taken 05/19/21] omeprazole 20 mg PO DAILY 01/09/20 [History Last Taken 05/19/21] folic acid 1 mg PO DAILY@0800 #30 tab 01/10/20 [Rx Last Taken 05/20/21] multivitamin with folic acid 1 tab PO DAILYCM #30 tab 01/10/20 [Rx Last Taken 05/20/21] thiamine HCl (vitamin B1) 100 mg PO DAILYCM #30 tab 01/10/20 [Rx Last Taken 05/20/21] divalproex 250 mg tablet,extended release 24 hr 250 mg PO DAILY tab 07/06/20 [History Last Taken 05/20/21] olanzapine 10 mg tablet 10 mg PO QHS 07/06/20 [History Last Taken 05/19/21] albuterol sulfate 90 mcg/actuation aerosol inhaler 1 - 2 puff INHALATION 4X/DAY PRN PRN #8.5 g 01/04/21 [Rx Last Taken 05/20/21] bisacodyl [Bisa-Lax (bisacodyl)] 10 mg TX DAILY PRN 07/04/21 [History Last Taken Unknown] budesonide [Pulmicort Flexhaler] 2 inh INHALATION BID 12/19/21 [History Last Taken Unknown] mineral oil 133 ml TX DAILY PRN 12/19/21 [History Last Taken Unknown] Allergy/AdvReac Type Severity Reaction Status Date / Time venom-honey bee Allergy Severe Anaphylaxis Verified 07/09/21 10:33 [bee venom (honey bee)] Family History Father Prostate cancer Mother Lung cancer Surgical History History of heart artery stent History of heart artery stent History of hernia repair History of right hip replacement Social History household members: none Smoking Status: Current every day smoker tobacco type: cigarettes Tobacco: How many years used: 50 second hand exposure: No quit status: has quit before alcohol intake: current details: NON ALCOHOL BEER substance use type: does not use caffeine: Yes Type: coffee Number of servings: 2 luis/hindu: None seatbelt use: always do you feel safe at home: Yes ROS Constitutional Constitutional: Denies change in weight, excessive sweating, fatigue, increased appetite, lethargy, malaise or night sweats Eyes Eyes: Denies bloody eye, blurry vision, change in vision, irritation, itchy eyes, loss of central vision or numbness ENT HEENT: Denies ear pain, epistaxis, facial pain, foreign body in nose, halitosis, headache(s), mouth lesions or mouth pain Cardiovascular Cardiovascular: Denies abdominal pain, chest pain, dizziness, fatigue, lightheadedness, nausea or numbness in extremities Respiratory/Chest Respiratory/Chest: Denies excessive phlegm production, hemoptysis, productive cough, red skin, restlessness or shortness of breath at rest Gastrointestinal Gastrointestinal: Denies anorexia, chewing difficulty, coffee ground emesis, cramping, diarrhea or dry heaves Genitourinary Genitourinary: Denies abdominal discomfort, dysuria, flank pain, genital bruising, hematuria or penile swelling Musculoskeletal Musculoskeletal: Denies loss of height, muscle cramps, muscle spasms, muscle weakness or tremors Integumentary Integumentary: Denies bleeding lesions, dry skin, jaundice, lesions, nail changes, new lesions or photosensitivity Neurologic Neurologic: Denies behavior changes, convulsions, dizziness, focal weakness, frequent falls or headache(s) Psychiatric Psychiatric: Denies cognitive impairment, confusion, depression, difficulty concentrating, hallucinations or homicidal ideation Endocrine Endocrinology: Denies cold intolerance, deepening of the voice, excessive sweating, fatigue, flushing, increase in ring/shoe/hat size, polydipsia or polyphagia Allergic/Immunologic Allergic/Immunologic: Denies itchy eyes, lip swelling, rhinitis, throat swelling or tongue swelling Vital Signs Vital Signs Vital Signs: 12/19/21 09:21 Temperature 97.5 F L Temperature Source Temporal Pulse Rate 53 L Respiratory Rate 18 Blood Pressure 161/57 H Blood Pressure Mean 91 Blood Pressure Source Monitor Blood Pressure Position Semi-Fowlers Blood Pressure Location Left Arm Weight Weight: 235 lb Body Mass Index (BMI) 32.8 Physical Exam Const alert, oriented x3 and no apparent distress General Appearance: cooperative, comfortable and well kempt HEENT normocephalic, head/scalp atraumatic and hearing grossly normal bilaterally Neck full ROM General: normal visual inspection Resp normal respiratory effort and normal air movement Effort and Inspection: able to speak in complete sentences Cardio regular rate, regular rhythm, S1 normal heart sound and S2 normal heart sound Heart Sounds: murmur GI soft to palpation and non-tender Skin Wounds: wounds noted Neuro oriented x3, CN's II-XII intact bilaterally, moves all extremities and no focal motor deficits Psych mental status grossly normal Appearance: grossly normal Attitude: calm Debridement Note Debridement Note Wound debrided: Right buttock Type of Debridement: Excisional debridement Anesthesia Used: 4% Lidocaine Solution Depth: Down to and including healthy tissue and in the subcutaneous layer Percentage of wound debrided: 100 Instrument Used: 3mm curette Tissue Removed: Slough and devitalized tissue Severity: Fat Layer Exposed Amount of bleeding with debridement: Mild Bleeding Controlled with: Pressure Patient tolerated procedure: Patient tolerated procedure well Post-Debridement Measurements and Additional Note: Post-Debridement Measurements/Treatment - Nurse 1 - General Ulcer Assessment Start: 12/19/21 08:32 Freq: Status: Active Protocol: AMILCAR.LOWEXT Activity Type Activity Date Activity User E-Sign Co-Sign Detail Recorded Client Recorded Date Recorded By Document 12/19/21 09:21 KYLE [id number] 12/19/21 09:35 KYLE 12/19/21 09:21 - Today's Visit Information Type of service Initial Visit Arrival Mode Wheelchair Patient Identification Verified (Name & Yes ) Patient Requires Transmission-Based No Precautions Height and Weight Height 5 ft 11 in Weight 235 lb Weight in Pounds 235.0 lbs Body Mass Index (BMI) 32.8 BMI Classification Obese BSA - Roman 2.26 Vital Signs Temperature (97.8 F-99.1 F) 97.5 F L Temperature Source Temporal Pulse Rate (60-100) 53 L Pulse Location Monitor Respiratory Rate (12-18) 18 Respiratory rate source Observation Blood Pressure (90/60-120/80) 161/57 H Blood Pressure Mean 91 Source Monitor Position Semi-Fowlers Blood Pressure Location Left Arm History Since Last Visit- (Skip if this is Patient's initial visit) Left Footwear Regular Shoe Right Footwear Regular Shoe Pain Scale: 0-10 Numeric Is Patient Pain Free? Yes Communication Assessment Preferred language Persian Telephone Operators Supervisor Required No Able to Read Yes Able to Write Yes Communication Tools None Right Hearing Abillity Normal Left Hearing Abillity Normal Visual Assistive Devices None Teaching Assessment Preferences Verbal,Written, Audio/Visual, Demonstration Barriers to Learning None Readiness To Learn Fair Willingness to Engage in Self Management Med Activies Readiness to Engage in Self Management Med Activities Anxiety Level Calm Cooperation Cooperative Perception Coherent Interest in Health Problem Asks Questions Education Importance Acknowledges Need Does Patient Smoke tobacco or other No substances Smoking Status Current every day smoker Is Patient Diabetic No Functional Assessment Recent Decline in Ability to Perform Ambulation, Bathing Assistive Device With Patient Yes List Device(s) with Patient walker Culture/Christian/Master Ocean Cultural/Christian Needs that may affect No Treatment Plan Would you allow our hospital motorized squad captain to No meet you for the purpose of spiritual/ emotional support? Master Ocean to contact place of jain No Teaching: Wound Center [facility] Orientation/ Contacting Physician -Person Taught Patient -Teaching Method Discussion, Demonstration -Response to teaching Return demonstration, Verbalize understanding - Nurse 1 - General Ulcer Measurement Start: 12/19/21 08:32 Freq: Status: Active Protocol: Activity Type Activity Date Activity User E-Sign Co-Sign Detail Recorded Client Recorded Date Recorded By Document 12/19/21 09:21 JF [id number] 12/19/21 09:35 JF 12/19/21 09:21 Wound Center Nurse 1 1-right buttucks -Combined with other wound No -Current Size (cm) - Length 1.5 -Current Size (cm) - Width 1.5 -Current Size (cm) - Depth 0.1 -Total Square Cm 2.25 -Photo Taken Yes -Epithelialization Small 1-33% -Tunneling No -Undermining/Tunneling No -Circular Undermining No -Classification - Pressure Ulcer Stage 2 -Exudate Amt Small -Exudate Type Serosanguineous -Wound Margin Flat & Intact -Granulation Amt Large (67-100%) -Granulation Quality Red -Slough/Fibrin Yes -Necrosis Amt Small (1-33%) -Necrotic Tissue Type Adherent Slough -Structure Exposed N/A -Texture (Gianna-wound Skin Appearance) Assessed, Excoriation -Moisture (Gianna-wound Skin Appearance) Assessed,Dry/ Scaly -Color (Gianna-wound Skin Appearance) Assessed -Temperature (Gianna-wound Skin No Abnormality Appearance) (Pt Warm) -Tenderness on Palpation (Gianna-wound No Skin Appearance) -Ulcer Cleansing Wound Cleanser -Foul Odor after Cleansing No -Anesthetic Used 4% Lidocaine Solution Lower Limb Edema Present NA - Nurse 2 - General Ulcer CM Notes Start: 12/19/21 08:32 Freq: Status: Active Protocol: Activity Type Activity Date Activity User E-Sign Co-Sign Detail Recorded Client Recorded Date Recorded By Document 12/19/21 09:53 [id number] 12/19/21 10:00 MW 12/19/21 09:53 Wound Center Nurse 2 1-right buttucks -Time 09:54 -Correct Patient Yes -Correct Side, Site, Position Yes -Correct Procedure Yes -Procedure Performed Yes -Type of Procedure Debridement -Clinical Debridement Subcutaneous -Tissue Removed Subcutaneous -Post Debridement (cm) - Length 0.3 -Post Debridement (cm) - Width 0.5 -Post Debridement (cm) - Depth 0.1 -Total Square (Post) (cm) 0.15 -Area of Debridement (cm) - Length 0.3 -Area of Debridement (cm) - Width 0.5 -Total Square (Area) (cm) 0.15 -Tunneling No -Undermining/Tunneling No -Circular Undermining No -Wound/Ulcer Outcome Not Healed -Ulcer Cleansing Rinsed/ Irrigated with Saline -Foul Odor after Cleansing No -Bioengineered Tissue No -Bleeding Controlled with Pressure -Treatment Response Procedure Tolerated Well -Offloading No -Debridement - Subq, 1st 20sq cm Yes Pain Scale: 0-10 Numeric Is Patient Pain Free? Yes Charges/Coding Visit Charges Office Visits / Consults: 99688 OV L3 New Procedures Integumentary 111xxx-113xx: [id number] Dora subq tissue 20 sq cm/< Assessment/Plan Assessment/Plan (1) Decubitus ulcer of right buttock, stage 2: CODE(S): L89.312 - Pressure ulcer of right buttock, stage 2 (2) Stage I decubitus ulcer and pressure area: CODE(S): L89.91 - Pressure ulcer of unspecified site, stage 1 (3) COPD (chronic obstructive pulmonary disease): CODE(S): J44.9 - Chronic obstructive pulmonary disease, unspecified PLAN: Debridement done as documented above, procedure was well-tolerated. Bilateral buttock erythema/stage I pressure ulcer with an area of stage 2 to his right buttock. Moisturize adequately with Vaseline, Aquacel extra to open area and cover with Xeroform to all reddened area. Offloading very strongly recommended. Prescription for gel cushion sent. Other chronic wound care management such as increased protein intake, vitamin C D and zinc. His questions were answered and he was advised to call with any further questions or concerns. Follow-up in 1 week or sooner if needed. This note was generated with Sonnedixation software. It may contain incorrect words, spelling, and punctuation that were not noted in checking the note before signing.
[2021-12-26 10:08] VITALS: BP 151/58; PULSE 52; RESP 16; TEMP 36.7; BMI 32.8
--- NOTE | 2021-12-26 12:52 | PCM.WC.PN ---
History of Present Illness Date of Service: 12/26/21 Chief Complaint: Buttock Ulcer History of Wound: Mr. Damian is a 71-year-old who presents to the wound center due to non healing Ulcers. Status post hip surgery in May following which he was discharged to a correction. He states that while he was in the correction he developed this also has. He was subsequently discharged home where home health had been caring for him however no significant improvement so he presents here. He states that he states most days in his recliner. Unable to stand for too long so spends most of his time in his recliner asked. Smokes. No known history of diabetes mellitus. At this time, he denies chills, fever or feeling of unwell. Progress of Wound: Healed. No new concerns at this time. Has been applying Xeroform and Aquacel to open areas. Objective Data Objective Data Vital Signs: Vital Signs Temp Pulse Resp BP 98.1 F 52 L 16 151/58 H 12/26/21 10:08 12/26/21 10:08 12/26/21 10:08 12/26/21 10:08 Oxygen Delivery Method Room Air Weight: 235 lb Body Mass Index (BMI) 32.8 Charges/Coding Visit Charges Office Visits / Consults: [id number] OV L3 Est Physical Exam Const alert, oriented x3 and no apparent distress General Appearance: cooperative, comfortable and well kempt HEENT normocephalic, head/scalp atraumatic and hearing grossly normal bilaterally Neck full ROM General: normal visual inspection Resp normal respiratory effort Effort and Inspection: able to speak in complete sentences Cardio Heart Sounds: murmur Skin General Skin Exam: erythema Neuro oriented x3, CN's II-XII intact bilaterally, moves all extremities and no focal motor deficits Psych mental status grossly normal Appearance: grossly normal Attitude: calm Debridement Note Debridement Note Post-Debridement Measurements and Additional Note: Post-Debridement Measurements/Treatment WC - Nurse 1 - General Ulcer Assessment Start: 12/19/21 08:32 Freq: Status: Active Protocol: ANDIE Activity Type Activity Date Activity User E-Sign Co-Sign Detail Recorded Client Recorded Date Recorded By Document 12/19/21 09:21 KYLE [id number] 12/19/21 09:35 KYLE Document 12/26/21 10:08 [facility] [id number] 12/26/21 10:16 BMF 12/19/21 12/26/21 09:21 10:08 WC - Today's Visit Information Type of service Initial Visit Follow-up Visit (Physician/SCALLOP RAKER ) Arrival Mode Wheelchair Wheelchair Transfer Assistance Other Transfer Assist (Other) 1 assist Patient Identification Verified (Name & Yes Yes ) Patient Requires Transmission-Based No No Precautions Height and Weight Height 5 ft 11 in Weight 235 lb Weight in Pounds 235.0 lbs Body Mass Index (BMI) 32.8 32.8 BMI Classification Obese Obese BSA - Roman 2.26 Vital Signs Temperature (97.8 F-99.1 F) 97.5 F L 98.1 F Temperature Source Temporal Temporal Pulse Rate (60-100) 53 L 52 L Pulse Location Monitor Monitor Respiratory Rate (12-18) 18 16 Respiratory rate source Observation Observation Oxygen Delivery Method Room Air Blood Pressure (90/60-120/80) 161/57 H 151/58 H Blood Pressure Mean (mm Hg) 91 89 Source Monitor Monitor Position Semi-Fowlers Sitting Blood Pressure Location Left Arm Left Arm Have you changed medications since your No last visit? Any new allergies or adverse reactions No Had a fall/change in ADL's that may No increase risk of falls Signs or symptoms of abuse and/or No neglect since last visit Have you been in the hospital since your No last visit? Has dressing in place as prescribed Yes Has compression in place as prescribed N/A Has offloadiing in place as prescribed N/A Experienced any changes in pain level or No management History Since Last Visit- (Skip if this is Patient's initial visit) Left Footwear Regular Shoe Regular Shoe Right Footwear Regular Shoe Regular Shoe Pain Scale: 0-10 Numeric Is Patient Pain Free? Yes Yes Communication Assessment Preferred language Turkmen Computer Equipment Installer Required No Able to Read Yes Able to Write Yes Communication Tools None Right Hearing Abillity Normal Left Hearing Abillity Normal Visual Assistive Devices None Teaching Assessment Preferences Verbal,Written, Audio/Visual, Demonstration Barriers to Learning None Readiness To Learn Fair Willingness to Engage in Self Management Med Activies Readiness to Engage in Self Management Med Activities Anxiety Level Calm Cooperation Cooperative Perception Coherent Interest in Health Problem Asks Questions Education Importance Acknowledges Need Does Patient Smoke tobacco or other No substances Smoking Status Current every day smoker Is Patient Diabetic No Functional Assessment Recent Decline in Ability to Perform Ambulation, Bathing Assistive Device With Patient Yes List Device(s) with Patient walker Culture/Scientologist/Moss Bleacher Cultural/Scientologist Needs that may affect No Treatment Plan Would you allow our hospital manager beverage to No meet you for the purpose of spiritual/ emotional support? Moss Bleacher to contact place of evangelical No Teaching: Wound Center [facility] Orientation/ Contacting Physician -Person Taught Patient -Teaching Method Discussion, Demonstration -Response to teaching Return demonstration, Verbalize understanding - Nurse 1 - General Ulcer Measurement Start: 12/19/21 08:32 Freq: Status: Active Protocol: Activity Type Activity Date Activity User E-Sign Co-Sign Detail Recorded Client Recorded Date Recorded By Document 12/19/21 09:21 [id number] 12/19/21 09:35 Document 12/26/21 10:08 [facility] [id number] 12/26/21 10:16 [facility] 12/19/21 12/26/21 09:21 10:08 Wound Center Nurse 1 1-right buttucks -Combined with other wound No No -Current Size (cm) - Length 1.5 0.1 -Current Size (cm) - Width 1.5 0.1 -Current Size (cm) - Depth 0.1 0.1 -Total Square Cm 2.25 0.01 -Date of Last Picture (Recall this 12/26/21 field) -Photo Taken Yes Yes -Epithelialization Small 1-33% Large 67-100% -Tunneling No No -Undermining/Tunneling No No -Circular Undermining No No -Classification - Pressure Ulcer Stage 2 -Exudate Amt Small None Present -Exudate Type Serosanguineous -Wound Margin Flat & Intact -Granulation Amt Large (67-100%) -Granulation Quality Red -Slough/Fibrin Yes -Necrosis Amt Small (1-33%) -Necrotic Tissue Type Adherent Slough -Structure Exposed N/A -Texture (Gianna-wound Skin Appearance) Assessed, Assessed Excoriation -Moisture (Gianna-wound Skin Appearance) Assessed,Dry/ Assessed Scaly -Color (Gianna-wound Skin Appearance) Assessed Assessed, Erythema -Temperature (Gianna-wound Skin No Abnormality No Abnormality Appearance) (Pt Warm) (Pt Warm) -Tenderness on Palpation (Gianna-wound No No Skin Appearance) -Ulcer Cleansing Wound Cleanser Soap and Water -Foul Odor after Cleansing No No -Anesthetic Used 4% Lidocaine Solution Lower Limb Edema Present NA WC - Nurse 2 - General Ulcer CM Notes Start: 12/19/21 08:32 Freq: Status: Active Protocol: Activity Type Activity Date Activity User E-Sign Co-Sign Detail Recorded Client Recorded Date Recorded By Document 12/19/21 09:53 MW [id number] 12/19/21 10:00 MW Document 12/26/21 10:33 MW [id number] 12/26/21 10:34 MW 12/19/21 12/26/21 09:53 10:33 Wound Center Nurse 2 1-right buttucks -Time 09:54 10:33 -Correct Patient Yes Yes -Correct Side, Site, Position Yes Yes -Correct Procedure Yes Yes -Procedure Performed Yes No -Type of Procedure Debridement -Clinical Debridement Subcutaneous -Tissue Removed Subcutaneous -Post Debridement (cm) - Length 0.3 0 -Post Debridement (cm) - Width 0.5 0 -Post Debridement (cm) - Depth 0.1 0 -Total Square (Post) (cm) 0.15 0 -Area of Debridement (cm) - Length 0.3 -Area of Debridement (cm) - Width 0.5 -Total Square (Area) (cm) 0.15 -Tunneling No -Undermining/Tunneling No -Circular Undermining No -Wound/Ulcer Outcome Not Healed Healed- Epithelialized -Ulcer Cleansing Rinsed/ Irrigated with Saline -Foul Odor after Cleansing No -Bioengineered Tissue No -Bleeding Controlled with Pressure -Treatment Response Procedure Tolerated Well -Offloading No -Debridement - Subq, 1st 20sq cm Yes Pain Scale: 0-10 Numeric Is Patient Pain Free? Yes Yes WC - Nurse 3 - General Ulcer D/C NN Start: 12/19/21 08:32 Freq: Status: Active Protocol: Activity Type Activity Date Activity User E-Sign Co-Sign Detail Recorded Client Recorded Date Recorded By Document 12/19/21 10:17 DL [id number] 12/19/21 10:19 DL Document 12/26/21 10:47 BMF [id number] 12/26/21 10:48 BMF 12/19/21 12/26/21 10:17 10:47 Wound Care Nurse 3 1-right buttucks -Ulcer Cleansing Rinsed/ Irrigated with Saline -Primary Dressing Applied Aquacel Extra, Mepilex Border, Mepilex Border NonAdherent Contact Layer -Other Dressing xeroform -Primary Dressing Covered/Secured with Other -Other Covering xerform -Aquacel Extra 1 -Mepilex Border 2 1 Treatment Response Procedure Procedure Tolerated Well Tolerated Well Pain Scale: 0-10 Numeric Is Patient Pain Free? Yes Yes WC - Visit Discharge Discharge Condition Stable Stable Ambulatory Status Wheelchair Wheelchair Transportation Private Auto Private Auto Facility Type Home Health Home Health Orders Sent Yes Assessment/Plan Assessment/Plan (1) Decubitus ulcer of right buttock, stage 2: CODE(S): L89.312 - Pressure ulcer of right buttock, stage 2 (2) Stage I decubitus ulcer and pressure area: CODE(S): L89.91 - Pressure ulcer of unspecified site, stage 1 (3) COPD (chronic obstructive pulmonary disease): CODE(S): J44.9 - Chronic obstructive pulmonary disease, unspecified PLAN: No open areas. Erythema has improved as well compared to last week. No debridement completed today. Continue adequate moisturizing with Vaseline, Xeroform and gauze for 2 weeks. Again, offloading very strongly recommended. Prescription for gel cushion had been sent last week. His questions were answered and he was advised to call with any further questions or concerns. Discharge from the wound center This note was generated with [employer] dictation software. It may contain incorrect words, spelling, and punctuation that were not noted in checking the note before signing.
== END 2021-12-27 11:57 | disposition home or self-care (01) ==
LOC: WC 10:00
PROVIDERS: PCP Internal Medicine; Visit Provider Internal Medicine
DX: L89.312 Pressure ulcer of right buttock, stage 2 (principal); J44.9 Chronic obstructive pulmonary disease, unspecified; F17.210 Nicotine dependence, cigarettes, uncomplicated; L89.91 Pressure ulcer of unspecified site, stage 1
CPT/HCPCS: 11042; 99213; G0463

== ENCOUNTER → 2022-01-29 | Outpatient (CLI) | payer MEDICARE, MEDICAID, SELFPAY ==
--- NOTE | 2022-01-29 13:45 | PET_ITS ---
PROCEDURE: WHOLE BODY PET/CT SCAN, MID SKULL TO MID THIGH REASON FOR EXAM: Non-small cell lung cancer of the right lower lobe, status post radiation therapy, restaging COMPARISON EXAMINATION: 07/02/2021. TECHNIQUE: Following the intravenous administration of 11.74 mCi of F-18 FDG, multiplanar imaging acquisitions of the neck, chest, abdomen/pelvis to the mid thigh, obtained at 1 hour post radiopharmaceutical administration. Interpretation is with co-registeration of similar anatomic distribution of CT. Findings: Normal and physiologic distribution of radioisotope identified in the expected intensity of the hepatic and splenic parenchyma, urinary tract and gastrointestinal structures. There is gross anatomic distribution of the intracranial contents. Localized activity in the left supraclavicular region likely brown fat; no correlating mass. INDEX LESION SIZE SUV INTERPRETATION: 1. The discrete solid nodule on prior PET scan is no longer identified. Ill-defined groundglass and peribronchial consolidation involving the right lower lobe (image 257 series 201) is in the same region as solid nodule on prior PET scan. Minimal FDG activity (SUV 1.6, previously measured 2.9). 2. Localized nodular consolidation with adjacent groundglass opacity in the medial left upper lobe has not changed since prior PET scan, still WITHOUT significant FDG activity (SUV 1.7, previously measured 1.9). CT portion of the exam: The lungs are otherwise unremarkable without new nodule/mass. There is no demonstrated pleural abnormality. There is mild cardiac enlargement. There are calcifications of the coronary arteries. Mediastinal and bilateral hilar lymph nodes are stable (no abnormal FDG activity). Normal unenhanced pulmonary arteries. There is atherosclerotic calcification of the aortic arch with tortuosity and elongation of the aortic arch and descending thoracic aorta. Normal liver. There is a solitary gallstone. Normal spleen. Normal pancreas. Normal bilateral adrenal glands. Normal right kidney. Normal left kidney. There is a small hiatal hernia. Normal small intestine. No colon wall thickening. The appendix is visualized and appears normal. Normal abdominal aorta. Normal inferior vena cava. Normal urinary bladder. Right hip replacement. No destructive bony process. Degenerative changes of the spine. PET/PET/CT Tumor Base -Thigh Init IMPRESSION: 1. Since 07/02/2021, favorable change/complete response. Discrete nodule/neoplasm on prior PET scan NO longer visible. Ill-defined peribronchial opacity in the right lower lobe likely sequela of intervening radiation therapy (pneumonitis); DOES NOT meet criteria for viable neoplasm based on SUV criteria. 2. Medial left upper lobe nodular density/adjacent opacity still does NOT meet criteria for viable neoplasm. 3. Chronic changes, as detailed above. Electronically Signed: Abrahan Montero MD (Brooks) at 9:30 EDT Reading Location ID and State: [facility] / [place] , Service support ,
== END | disposition home or self-care (01) ==
LOC: ONC 13:42
PROVIDERS: PCP Internal Medicine; Referring Provider Radiology Radiation Oncology; Visit Provider Radiology Radiation Oncology
DX: R91.8 Other nonspecific abnormal finding of lung field (principal); I77.1 Stricture of artery; I70.0 Atherosclerosis of aorta; K44.9 Diaphragmatic hernia without obstruction or gangrene; Z96.641 Presence of right artificial hip joint; K80.20 Calculus of gallbladder without cholecystitis without obstruction; Z92.3 Personal history of irradiation
CPT/HCPCS: 78815; A9552

== ENCOUNTER 2022-03-07 10:19 | Inpatient (IN) | payer MEDICARE, MEDICAID, SELFPAY ==
[2022-03-07] VITALS (12 sets, daily range): BP systolic 126–165; BP diastolic 44–68; PULSE 53–66; RESP 18–24; TEMP 36.3–37; O2SAT 89–95; BMI 35.4; BMI 35.8
--- NOTE | 2022-03-07 10:34 | EKG12_ITS ---
Test Reason : WEAKNESS Blood Pressure : / mmHG Vent. Rate : 055 BPM Atrial Rate : 055 BPM P-R Int : 000 ms QRS Dur : 098 ms QT Int : 448 ms P-R-T Axes : 000 -58 056 degrees QTc Int : 428 ms Atrial fibrillation Left anterior fascicular block Abnormal ECG Poor R wave progression Confirmed by LAKISHA RUBIN, MARIA INES ([id number]), news video editor TURNER CONTRERAS ([id number]) on 03/11/2022 8:01:02 AM Referred By: TONA Confirmed By:MARIA INES BANUELOS MD
--- NOTE | 2022-03-07 10:36 | EDS_ITS ---
HPI History of Present Illness Chief Complaint: Weakness Informant: patient Onset/Context/Timing Onset: Month(s) (several) Context: Gradual Onset Timing: Continuous Quality: weak Location: generalized Current Severity: Severe Maximum Severity: Severe Worsened by: nothing Relieved by: nothing Associated Symptoms Associated Symptoms: sob/wheezing, fatigue difficulty staying awake, urinary incontinence Narrative Narrative: Patient gradually worsening over the last couple months, feeling very fatigued and tired and weak all over, legs swollen over the past 5 or 6 weeks and now turning red and purple especially in his feet. He states they do not hurt. They are not numb or tingly. He denies any lateralizing neurologic symptoms, just weak all over. When questioned about how his COPD symptoms have been, he states gradually worsening over time. Denies any cough or fevers. Denies any contact with anyone with COVID or other ill persons recently that he knows of. No abdominal pain or GI symptoms. No chest pain, exertional angina symptoms. Does not have a history of congestive heart failure that he knows of. His EMR lists paroxysmal atrial fibrillation and CAD, he states he does not follow with a managing consultant clinical professor. His dyspnea has been improved temporarily recently with nebulizer treatments at home. Has lived by himself for the past year he states. [facility] Medical History Adult failure to thrive Alcohol dependence Anxiety Bipolar disorder BPH without obstruction/lower urinary tract symptoms CAD (coronary artery disease) Cancer Closed subcapital fracture of right femur COLD (chronic obstructive lung disease) COPD (chronic obstructive pulmonary disease) Decubitus ulcer of right buttock, stage 2 Dyspnea GERD (gastroesophageal reflux disease) High cholesterol History of COPD HLD (hyperlipidemia) HTN (hypertension) Irregular heartbeat Lymphedema Nodule of right lung Nondisp fx proximal phalanx lesser toe right foot w/routine heal Paroxysmal atrial fibrillation PVD (peripheral vascular disease) Smoker Stage I decubitus ulcer and pressure area Stenosis of esophagus Tobacco use disorder Home Medications cholecalciferol (vitamin D3) 25 mcg (1,000 unit) tablet 2,000 unit PO DAILY supplement 02/22/19 [History Last Taken 05/20/21] divalproex 500 mg tablet,extended release 24 hr 500 mg PO QHS bipolar 02/22/19 [History Last Taken 05/19/21] finasteride 5 mg tablet 5 mg PO DAILY prostate 02/22/19 [History Last Taken 05/20/21] melatonin 3 mg tablet 3 mg PO QHS Check with primary doctor 02/22/19 [History Last Taken 05/19/21] tamsulosin 0.4 mg capsule 0.4 mg PO QHS urinary issues 02/22/19 [History Last Taken 05/19/21] omeprazole 20 mg capsule,delayed release 20 mg PO DAILY STOMACH 01/09/20 [History Last Taken 05/19/21] folic acid 1 mg tablet 1 mg PO DAILY@0800 #30 tabs 01/10/20 [Rx Last Taken 05/20/21] multivitamin with folic acid 400 mcg tablet 1 tab PO DAILYCM #30 tabs 01/10/20 [Rx Last Taken 05/20/21] thiamine HCl (vitamin B1) 100 mg tablet 100 mg PO DAILYCM #30 tabs 01/10/20 [Rx Last Taken 05/20/21] divalproex 250 mg tablet,extended release 24 hr 250 mg PO DAILY 07/06/20 [History Last Taken 05/20/21] olanzapine 10 mg tablet 10 mg PO QHS 07/06/20 [History Last Taken 05/19/21] albuterol sulfate 90 mcg/actuation aerosol inhaler 1 - 2 puff inhalation 4X/DAY PRN PRN Sob &/Or Wheezing #8.5 grams 01/04/21 [Rx Last Taken 05/20/21] bisacodyl 10 mg rectal suppository 10 mg VT DAILY PRN Constipation 07/04/21 [History Last Taken Unknown] budesonide 180 mcg/actuation breath activated powder inhaler (Pulmicort Flexhaler) 2 inh inhalation BID 12/19/21 [History Last Taken Unknown] mineral oil 133 ml VT DAILY PRN Constipation 12/19/21 [History Last Taken Unknown] Allergy/AdvReac Type Severity Reaction Status Date / Time venom-honey bee Allergy Severe Anaphylaxis Verified 03/07/22 10:37 [bee venom (honey bee)] Family History Father Prostate cancer Mother Lung cancer Surgical History History of heart artery stent History of heart artery stent History of hernia repair History of right hip replacement Social History household members: none Smoking Status: Current every day smoker tobacco type: cigarettes Tobacco: How many years used: 50 second hand exposure: No quit status: has quit before alcohol intake: current details: NON ALCOHOL BEER substance use type: does not use caffeine: Yes Type: coffee Number of servings: 2 luis/taoism: None seatbelt use: always do you feel safe at home: Yes ROS ROS ED Constitutional Constitutional ED: Reports fatigue and malaise; Denies body ache(s), chills, fever(s) or headache(s) Eyes Eyes: Denies change in vision or diplopia ENT ENT ED: Denies rhinorrhea or sore throat Cardiovascular Cardiovascular: Reports leg edema; Denies chest pain or palpitations Respiratory/Chest Respiratory/Chest: Reports dyspnea, dyspnea on exertion and wheezing; Denies cough Gastrointestinal Gastrointestinal: Denies abdominal pain, diarrhea, nausea or vomiting Genitourinary Genitourinary ED: Reports urinary frequency and other Details: Frequency and incontinence of urine started around the same time he was started on Lasix ; Denies dysuria or hematuria Musculoskeletal Musculoskeletal: Denies back pain, extremity pain or neck pain Integumentary Reports as per HPI and other Details: Red discoloration of legs, feet are turning purple ; Denies abscess or rash Neurologic Neurologic: Denies headache(s), paresthesias or weakness Psychiatric Psychiatric: Denies anxiety or suicidal thoughts EXAM Physical Exam Const Vital Signs: 03/07/22 10:20 03/07/22 10:30 03/07/22 10:30 Temperature 97.4 F L 98.6 F Temperature Source Temporal Temporal Pulse Rate 58 L 65 Respiratory Rate 18 19 H Respiratory Effort Short of Breath Labored Respiratory Pattern Gasping Blood Pressure 165/52 H 165/66 H Blood Pressure Mean 89 99 Pulse Ox 94 90 Oxygen Delivery Method Room Air Room Air Oxygen Flow Rate (L/min) 03/07/22 11:00 03/07/22 11:00 Temperature Temperature Source Pulse Rate 66 Respiratory Rate 19 H Respiratory Effort Respiratory Pattern Tachypnea Blood Pressure Blood Pressure Mean Pulse Ox 91 Oxygen Delivery Method Nasal Cannula Oxygen Flow Rate (L/min) 2 Positive well nourished, well developed and obese Constitutional Narrative: Appears weak but keenly alert, conversive in full sentences General Appearance ED: well developed and NAD Nutritional Appearance: obese HEENT Reports moist mucous membranes normocephalic and atraumatic Eyes PERRL and EOMs intact bilaterally Neck full ROM, no lymphadenopathy, supple and no JVD Resp Resp Narrative: Expiratory wheezes throughout all lung farley, symmetric, trachea midline, no respiratory distress but mildly tachypneic. Cardio regular rate, regular rhythm and no murmurs Rate: other Other Details: Occasional irregularity, consistent with PVCs on monitor GI non-tender and non-distended Auscultation: normoactive bowel sounds Palpation: soft Back/Spine no CVA tenderness General Back: other FROM Extremity Extremity Narrative: Bilateral lower legs erythematous and shiny consistent with chronic stasis dermatitis without tenderness; feet are indeed purpleish, the left is warm, the right distal foot is cold. There is edema limiting my ability to feel pulses but I can feel the left dorsalis pedis and there is a brisk cap refill at the toes, but the right is not palpable easily and there is a delayed cap refill approximately 3-5 seconds. Nursing is able to Doppler both pulses in the feet fairly easily but notices that the right is diminished compared with the left. General Extremety ED: Yes edema and pulses abnormal; Negative for tenderness General Extremity: edema and pulses abnormal Neuro oriented x3, CN's II-XII intact bilaterally and no sensory deficits noted Sensorium / Orientation: awake and alert Motor Exam: strength 5/5 throughout Skin no rashes or lesions noted and no wounds Skin Narrative: Dark erythema bilateral lower extremities see above. No wounds. MDM MDM MDM Narrative Medical decision making narrative: Patient improved after nebulizer treatments. No need for mechanical ventilatory assistance at this time. He does appear to have vascular disease specially in the right lower extremity but he does have perfusion at this time and his lactate is within normal limits. His sodium is 119, likely responsible for his generalized weakness. His ABG was surprisingly reassuring showing a neutral pH is 7.4 and signs of chronic CO2 retention but not acute hypercapnia. His chest x-ray does not show anything acute on my interpretation. Still awaiting his BNP to return, so I have not given him any significant amounts of fluid since he is edematous. His EKG shows A. fib which appears to be different than his old EKG but he has a history of paroxysmal A. fib, he does not have any acute injury pattern or elevated troponin. Even after nebulizer treatments at rest, his pulse ox goes down to 87-88% on room air, it comes back up and we put his oxygen back on or if he converses, bringing him to 91% even without oxygen. He is stable for admission to PCU. Lab Data Attestation: I reviewed the patient's lab results. Labs: Laboratory Results - last 24 hr 03/07/22 03/07/22 03/07/22 11:05 11:05 11:05 WBC 9.2 RBC 4.23 L Hgb 13.3 Hct 39.4 L MCV 93.1 MCH 31.4 MCHC 33.8 RDW Std Deviation 52.3 H RDW Coeff of Fredi 15.3 H Plt Count 124 L MPV 10.0 Immature Gran % (Auto) 0.500 Neut % (Auto) 83.4 H Lymph % (Auto) 5.7 L Burleigh % (Auto) 9.9 Eos % (Auto) 0.3 Baso % (Auto) 0.2 Absolute Neuts (auto) 7.6 Absolute Lymphs (auto) 0.52 L Nucleated RBC % 0 Differential Comment COMMENT Sodium 119 L* Potassium 4.5 Chloride 81 L Carbon Dioxide 28.0 Anion Gap 10 BUN 4 L Creatinine 0.64 L Estim Creat Clear Calc 72.21 Est GFR (MDRD) Af Amer 157 Est GFR (MDRD) Non-Af 130 BUN/Creatinine Ratio 6.2 L Glucose 100 Lactic Acid 1.7 Calcium 8.6 Troponin I High Sens 40 Radiography Chest X-Ray - ED: 1 View, Read by ED Physician, No Acute Disease, Chronic Changes and Cardiomegaly Diagnostic Testing: Clinical Impression(s) from Imaging Studies Chest X-Ray 03/07/22 11:10 IMPRESSION: Cardiomegaly. Mild increased linear markings at the lung bases suggestive of bibasilar scarring. Electronically Signed: Emiliano Floyd MD at 11:59 EDT , Rhythm Strip Rhythm Strip: A-fib Rate: 55 Ectopy: PVC(s) EKG Initial EKG: Attestation: I personally reviewed and interpreted this EKG as follows: Interpretation: No Acute Injury Pattern, Atrial Fibrillation and LAFB Prior EKG tracings: available for review Prior: Changed (afib is new. left axis preexisting.) Discharge Plan Dx/Rx/DC Orders Clinical Impression: Acute hyponatremia, AF (paroxysmal atrial fibrillation), PAD (peripheral artery disease), Asthma exacerbation in COPD, Hypoxemia, Bilateral edema of lower extremity Disposition Disposition: Acute Care Hospital [facility]
--- NOTE | 2022-03-07 10:40 | ED.RN ---
(+) pedal pulses b/l using doppler. Dr Lindsey made aware.
[2022-03-07] MEDS: Ipratropium/Albuterol Sulfate 3 ML AMPUL.NEB INHALATION ×2 (10:49→19:10)
[2022-03-07] MEDS: Albuterol 2.5 MG/3 ML VIAL.NEB. INHALATION (10:49)
--- NOTE | 2022-03-07 11:10 | RAD_ITS ---
STUDY: X-RAY CHEST REASON FOR EXAM: Male, 71 years old. Dyspnea TECHNIQUE: Single AP portable view of the chest. COMPARISON: Comparison is made with prior study dated 07/04/2021. FINDINGS: EKG electrodes are seen. Mild increased linear markings at the lung bases suggestive of scarring. There is no demonstrated pleural abnormality. There is moderate cardiac enlargement. Normal mediastinum and sofía. Normal visualized pulmonary arteries. There is atherosclerotic calcification of the aortic arch with tortuosity. There are diffuse degenerative changes of the visualized thoracic spine. Normal visualized ribs, clavicles, and shoulders. There is no demonstrated abnormality of the visualized soft tissue structures of the upper abdomen. RAD/Chest 1 View (Portable) IMPRESSION: Cardiomegaly. Mild increased linear markings at the lung bases suggestive of bibasilar scarring. Electronically Signed: Emiliano Floyd MD at 11:59 EDT ,
[2022-03-07 11:18] LABS: Absolute Lymphocyte Count 0.52 X10^3/uL (0.83-4.51); Absolute Neutrophil Count 7.6 X10^3/uL (2.0-7.7); Basophil# 0.02 X10^3/uL; Basophil% 0.2 % (0-1); Eosinophil# 0.03 X10^3/uL; Eosinophils% 0.3 % (0-5); Hematocrit 39.4 % (40-54); Hemoglobin 13.3 g/dL (13.0-16.5); Lymphocyte # 0.52 X10^3/ul (0.83-4.51); Lymphocyte % 5.7 % (19-41); Mean Corp Hgb Conc 33.8 g/dL (32-36); Mean Corpuscular Hgb 31.4 pg (27.0-32.0); Mean Corpuscular Volume 93.1 fL (80-94); Monocyte# 0.91 X10^3/uL; Monocyte% 9.9 % (0-10); NRBC Flagged by Analyzer 0 % (0-5); Neutrophil # 7.63 X10^3/uL (2.7-7.7); Neutrophil % 83.4 % (47-70); POSITIVE DIFFERENTIAL YES; Platelet Count 124 K/mm3 (150-450); RBC Distribution Width CV 15.3 % (11.6-14.6); RBC Distribution Width SD 52.3 fl (35.1-43.9); Red Blood Count 4.23 M/mm3 (4.6-6.2); White Blood Count 9.2 K/mm3 (4.4-11.0)
[2022-03-07 11:19] LABS: Differential Indicated SCAN CRITERIA MET
[2022-03-07 11:35] LABS: Anion Gap 10 (5-15); BUN 4 mg/dL (7-18); BUN/Creat Ratio 6.2 RATIO (10-20); Calcium,Total 8.6 mg/dL (8.5-10.1); Chloride 81 mmol/L (98-107); Creatinine, Serum 0.64 mg/dL (0.70-1.30); EST Glomerular Filtration Rate 130 mL/min (>60); Est Glom Filt Rate - Afr Amer 157 mL/min (>60); Estimated Creatinine Clearance 72.21 ml/min; Glucose 100 mg/dL (74-106); Potassium 4.5 mmol/L (3.5-5.1); Sodium Level 119 mmol/L (136-145); Troponin-I HS 40 pg/mL (3.0-78.0)
[2022-03-07 11:39] LABS: Lactic Acid 1.7 mmol/L (0.4-1.9)
[2022-03-07 12:14] LABS: BNP,B-Type NATRIURETIC PEPTIDE 340.6 pg/mL (0-100)
--- NOTE | 2022-03-07 14:12 | CASEMGMT ---
TYE HUGO Assessment: TYE HUGO to room to meet with pt for initial transition planning/care coordination assessment. TYE HUGO introduced self and role at [facility], pt voices understanding and consents to assessment. Pt is A/O and answers all questions appropriately at this time. Care providers, pharmacy, and demographics verified/updated. PCP:Simone. Pt also goes to [facility] every 6 months. Specialists: Dr Harvey-radiation oncology, Dr Rodarte/Dawson--pulmonology. Preferred Pharmacy: [facility] fill[facility]. [facility]: My Care [facility], [facility] Community Plan/[facility], [facility] benefits Prescription Benefit: yes LW/HPOA: Pt states he is not sure if he has done AD. He states he would like to complete them if he has not done them in the past. LNOK: Luisa Nguyen, sister Living Arrangements: Pt lives alone in a 1st floor apt. No steps to enter. Pt states an aide comes to his home M--11:30 am. Noted last admission, pt had a CM through [facility], Veda Todd. Pt states he thinks she is still his CM. Comfort REYES, notified of this. Family help w/groceries and laundry. Transportation: Pt reports he does not drive, states his sister or niece transports him to medical appts. DME: Pt has a walker, raised toilet seat, grab bars, shower chair, walker, W/C, lift chair, and medical alert button. Pt does not have home O2, pulse ox, or nebulizer. Pt states, if he is able to go home and if he needs O2 @ discharge, he does not have a preference of DME co. He was provided w/list of local DME companies that are in network w/his insurance. He was made aware [facility] affiliated /[facility] and he states [employer]. SNF/HHC: [facility] and [facility]. He states he just recently had a nurse coming to his home. TYE HUGO placed call to [facility] and spoke w/Juliann. Pt was just discharged from [facility] on February 19. Pt reports he drinks a 6 pack of beer per day and he smokes 1 pack of cigarettes a day. Pt states he may be willing to go to [facility] again, if SNF recommended by therapy, but he is not sure. He stated, You'll have to get with me on that. Aware that therapy will evaluate him for this. Pt verbalizes understanding. He states, if he is able to go home, that he would want [facility] again. Pt states no further concerns/needs. CM to follow. Advised pt to ask CM if any further question/concerns/needs arise, voices understanding. Plan: SNF vs HHC, depending on course of treatment and progress w/therapy. Choco GODOYN RN CM
[2022-03-07] MEDS: 0.9% Normal Saline 1,000 ML 100 ML IV (14:35)
--- NOTE | 2022-03-07 14:38 | CASEMGMT ---
RN OANH let SW know patient has services from [facility]. AMY called [facility] coverage line and spoke with Chuck Ambriz. Patient's disease case manager is David. Patient has an emergency response button and Meals from [place] (formerly [employer]). Patient had aides for personal care and a nurse for comprehensive nursing. Per Chuck it looks like patient is in the process of changing agencies for his aide and nurse. Comfort Minor AQUACULTURIST COMPUTER INFORMATION SYSTEMS INSTRUCTOR
--- NOTE | 2022-03-07 15:42 | CASEMGMT ---
Patient wanted to complete a Healthcare Power of Toppiece Cutter. SW completed documents with patient. Copies were given to patient along with original. SW also placed a copy in patient's chart. Comfort PARNELL
--- NOTE | 2022-03-07 15:46 | CHAPLAIN ---
Type of Pastoral Visit _x__ Initial Visit ___ Follow-up Visit ___ On-call Visit ___ General Patient Visit ___ Spiritual Assessment ___ Family Conference ___ Bereavement ___ Rapid Response ___ Code Blue ___ Other (describe below) Pastoral Care Referral From _x__ Patient ___ Family ___ Nurse ___ Physician ___ Equipment Tech ___ Tamping Machine Operator Road Forms ___ Other (describe below) Sacrament/Intervention _x__ Active listening ___ Anointing ___ Anabaptism ___ Bereavement ___ Communion ___ Ruth exploration ___ ___ Life review _x__ Prayer ___ Reconciliation ___ Sacrament of Sick ___ Supportive presence ___ Wedding ___ Other (describe below) Pastoral Comments patient was just getting settled into his room and was eating a late lunch; pt states that he just wasn't feeling good at all; pt states goal as to get better and welcomes a prayer for support
[2022-03-07] MEDS: Tamsulosin HCl 0.4 MG Capsule PO (16:50)
[2022-03-07] MEDS: Acetaminophen 325 MG Tablet 650 MG PO (17:03)
--- NOTE | 2022-03-07 17:05 | HP.PCM.HOS_ITS ---
HPI - General General Date of Admission: 03/07/22 Date of Service: 03/07/22 Chief Complaint: Weakness, general debility HPI Narrative KELLY YOU, is a 71 M who presents to the emergency room at [facility] with a chief complaint of weakness and difficulty walking over the last several days. Patient also complained that his legs appear discolored and purple, he denied any specific leg discomfort however. Patient has home care several hours a day. His past medical history includes bipolar disorder, COPD, lung cancer, coronary artery disease, chronic hyponatremia, and essential hypertension. Work-up in the emergency room included labs which showed a normal white blood cell count, hemoglobin was also normal, chemistry panel was remarkable for a sodium of 119, chloride was 81, and patient's beta natruretic peptide was 340. Chest x-ray showed cardiomegaly with mild increased linear markings at the lung bases suggestive of bibasilar scarring. Patient was placed on oxygen at 2 L/min in the emergency room although nursing states that the patient's pulse ox was above 90% on room air. Patient's lower legs are discolored with chronic stasis changes, right foot is somewhat cooler than the left foot. Patient will be admitted for hyponatremia, he will be given normal saline, labs will be monitored, patient will continue his home medications, pulse ox will be monitored.. FOR[facility] Medical History Adult failure to thrive Alcohol dependence Anxiety Bipolar disorder BPH without obstruction/lower urinary tract symptoms CAD (coronary artery disease) Cancer Closed subcapital fracture of right femur COLD (chronic obstructive lung disease) COPD (chronic obstructive pulmonary disease) Decubitus ulcer of right buttock, stage 2 Dyspnea GERD (gastroesophageal reflux disease) High cholesterol History of COPD HLD (hyperlipidemia) HTN (hypertension) Irregular heartbeat Lymphedema Nodule of right lung Nondisp fx proximal phalanx lesser toe right foot w/routine heal Paroxysmal atrial fibrillation PVD (peripheral vascular disease) Smoker Stage I decubitus ulcer and pressure area Stenosis of esophagus Tobacco use disorder Home Medications cholecalciferol (vitamin D3) 25 mcg (1,000 unit) tablet 2,000 unit PO DAILY supplement 02/22/19 [History Last Taken 03/07/22] finasteride 5 mg tablet 5 mg PO QHS prostate 02/22/19 [History Last Taken 03/06/22] melatonin 3 mg tablet 3 mg PO QHS PRN sleep aide 02/22/19 [History Last Taken 05/19/21] tamsulosin 0.4 mg capsule 0.4 mg PO QHS urinary issues 02/22/19 [History Last Taken 03/06/22] omeprazole 20 mg capsule,delayed release 20 mg PO DAILY STOMACH 01/09/20 [History Last Taken 03/07/22] olanzapine 10 mg tablet 10 mg PO QHS mental health 07/06/20 [History Last Taken 03/06/22] albuterol sulfate 90 mcg/actuation aerosol inhaler 1 - 2 puff inhalation 4X/DAY PRN PRN Sob &/Or Wheezing #8.5 grams 01/04/21 [Rx Last Taken 05/20/21] budesonide 180 mcg/actuation breath activated powder inhaler (Pulmicort Flexhal er) 2 inh inhalation BID lungs 12/19/21 [History Last Taken 03/07/22] mineral oil 133 ml KS DAILY PRN Constipation 12/19/21 [History Last Taken Unknown] baclofen 10 mg tablet 10 mg PO QHS PRN PRN muscle spasms 03/07/22 [History Last Taken Unknown] bisacodyl 10 mg rectal suppository 10 mg KS DAILY PRN Constipation 03/07/22 [History Last Taken Unknown] diclofenac sodium 75 mg tablet,delayed release 75 mg PO BID PRN Pain 03/07/22 [History Last Taken Unknown] divalproex 250 mg tablet,extended release 24 hr (Depakote ER) 750 mg PO QHS mental health 03/07/22 [History Last Taken 03/06/22] folic acid 1 mg tablet 1 mg PO DAILY@0800 supplement 03/07/22 [History Last Taken 03/07/22] furosemide 20 mg tablet 20 mg PO DAILY water pill 03/07/22 [History Last Taken 03/07/22] hydrocodone-acetaminophen 5-325mg 5mg-325mg 1 tab PO Q6H PRN PRN Pain 03/07/22 [History Last Taken Unknown] losartan 50 mg tablet 50 mg PO DAILY bp 03/07/22 [History Last Taken 03/07/22] magnesium hydroxide 400 mg/5 mL oral suspension 400 mg PO DAILY PRN Constipation 03/07/22 [History Last Taken Unknown] multivitamin 1 tab PO DAILY supplement 03/07/22 [History Last Taken 03/07/22] thiamine HCl (vitamin B1) 100 mg tablet 100 mg PO DAILYCM supplement 03/07/22 [History Last Taken 03/07/22] Allergy/AdvReac Type Severity Reaction Status Date / Time venom-honey bee Allergy Severe Anaphylaxis Verified 03/07/22 10:37 [bee venom (honey bee)] Family History Father Prostate cancer Mother Lung cancer Surgical History History of heart artery stent History of heart artery stent History of hernia repair History of right hip replacement Social History household members: none Smoking Status: Current every day smoker tobacco type: cigarettes Tobacco: How many years used: 50 second hand exposure: No quit status: has quit before alcohol intake: current details: NON ALCOHOL BEER substance use type: does not use caffeine: Yes Type: coffee Number of servings: 2 luis/samaritan: None seatbelt use: always do you feel safe at home: Yes ROS Constitutional Constitutional: Reports fatigue and weakness; Denies anorexia, change in weight, chills, fever(s) or night sweats Eyes Eyes: Denies blurry vision, change in vision, discharge from eye(s) or eye pain Cardiovascular Cardiovascular: Denies chest pain, claudication, dyspnea on exertion, edema, lightheadedness or palpitations Respiratory/Chest Respiratory/Chest: Reports shortness of breath with exertion; Denies cough, dyspnea, hemoptysis, productive cough or shortness of breath at rest Gastrointestinal Gastrointestinal: Denies abdominal pain, constipation, diarrhea, dyspepsia, hematemesis, hematochezia, melena, nausea or vomiting Genitourinary Genitourinary: Denies dysuria, hematuria, urinary frequency, urinary hesitancy, urinary incontinence or urinary urgency Musculoskeletal Musculoskeletal: Denies back pain, joint pain, joint stiffness, joint swelling, myalgias or neck pain Neurologic Neurologic: Denies abnormal gait, abnormal speech, dizziness, focal weakness, headache(s), loss of vision, numbness, other visual disturbances, paresthesias, syncope or tingling Psychiatric Psychiatric: Reports other Details: Patient has a history of bipolar disorder ; Denies anxiety, cognitive impairment, depression, irritability, mood swings or suicidal ideation Endocrine Endocrinology: Denies change in body appearance, cold intolerance, excessive sweating, heat intolerance, polydipsia or polyuria Hematologic/Lymphatic Hematologic/Lymphatic: Reports other Details: Patient has a history of lymphedema ; Denies none, anemia, easy bleeding, easy bruising or lymphadenopathy Allergic/Immunologic Allergic/Immunologic: Denies rhinitis, urticaria, eczemia or asthma Vital Signs Vital Signs Vital Signs: 03/07/22 10:20 03/07/22 10:30 03/07/22 10:30 Temperature 97.4 F L 98.6 F Temperature Source Temporal Temporal Pulse Rate 58 L 65 Respiratory Rate 18 19 H Respiratory Effort Short of Breath Labored Respiratory Depth Respiratory Pattern Gasping Blood Pressure 165/52 H 165/66 H Blood Pressure Mean 89 99 Blood Pressure Source Blood Pressure Position Blood Pressure Location Pulse Ox 94 90 Oxygen Delivery Method Room Air Room Air Oxygen Flow Rate (L/min) 03/07/22 11:00 03/07/22 11:00 03/07/22 13:28 Temperature Temperature Source Pulse Rate 66 57 L Respiratory Rate 19 H 18 Respiratory Effort Respiratory Depth Respiratory Pattern Tachypnea Blood Pressure 161/68 H Blood Pressure Mean 99 Blood Pressure Source Blood Pressure Position Blood Pressure Location Pulse Ox 91 94 Oxygen Delivery Method Nasal Cannula Room Air Oxygen Flow Rate (L/min) 2 03/07/22 13:28 03/07/22 13:55 03/07/22 14:13 Temperature 98.6 F 98.4 F Temperature Source Temporal Oral Pulse Rate 57 L 53 L 56 L Respiratory Rate 18 22 H Respiratory Effort Respiratory Depth Respiratory Pattern Blood Pressure 161/68 H 158/59 H Blood Pressure Mean 99 92 Blood Pressure Source Monitor Blood Pressure Position Semi-Fowlers Blood Pressure Location Right Arm Pulse Ox 94 95 Oxygen Delivery Method Nasal Cannula Room Air Oxygen Flow Rate (L/min) 2 03/07/22 15:02 Temperature Temperature Source Pulse Rate Respiratory Rate 18 Respiratory Effort Respiratory Depth Normal Respiratory Pattern Normal Blood Pressure Blood Pressure Mean Blood Pressure Source Blood Pressure Position Blood Pressure Location Pulse Ox Oxygen Delivery Method Room Air Oxygen Flow Rate (L/min) Weight Weight: 120.338 kg Body Mass Index (BMI) 35.8 Physical Exam Const alert, oriented x3 and no apparent distress Constitutional Narrative: Patient appears older than his stated age General Appearance: cooperative and well developed Orientation / Consciousness: awake, oriented to person, oriented to place and oriented to time HEENT normocephalic, head/scalp atraumatic, hearing grossly normal bilaterally and moist oral mucous membranes Eyes PERRL, EOMs intact bilaterally and conjunctivae normal Neck supple, no JVD, thyroid normal and no carotid bruits General: trachea midline Resp normal respiratory effort, no retractions and no use of accessory muscles Resp Narrative: Patient has expiratory wheezes bilaterally, he also exhibits some pursed lip breathing Auscultation: wheezes; Negative for rales or rhonchi Cardio regular rate, regular rhythm, S1 normal heart sound, S2 normal heart sound, no murmurs, no rub and no gallops GI normal to inspection, nondistended, normoactive bowel sounds, soft to palpation and non-tender GI Narrative: Patient is obese, he has some abdominal distention but his abdomen is nontender Extremity Extremity Narrative: There are severe stasis skin changes over both lower legs along with generalized edema Skin Skin Narrative: Patient has reddened areas on the mid buttocks near the cleft of the buttocks bilaterally, there is a small open area on the left side, these areas are approximately 3 to 4 cm in diameter. The open area on the left buttocks is approximately half centimeter in diameter. There are stasis dermatitis changes which are severe over both lower legs Neuro oriented x3, CN's II-XII intact bilaterally, no focal motor deficits and no sensory deficits noted Sensorium / Orientation: awake and alert Speech: speech normal Psych Psych Narrative: Patient's affect is flat Results Lab / Micro Data Result Diagrams: 03/07/22 11:05 03/07/22 11:05 Labs: Laboratory Results - last 24 hr 03/07/22 11:05: WBC 9.2, RBC 4.23 L, Hgb 13.3, Hct 39.4 L, MCV 93.1, MCH 31.4, MCHC 33.8, RDW Std Deviation 52.3 H, RDW Coeff of Fredi 15.3 H, Plt Count 124 L, MPV 10.0, Immature Gran % (Auto) 0.500, Neut % (Auto) 83.4 H, Lymph % (Auto) 5.7 L, [place] % (Auto) 9.9, Eos % (Auto) 0.3, Baso % (Auto) 0.2, Absolute Neuts (auto) 7.6, Absolute Lymphs (auto) 0.52 L, Nucleated RBC % 0, Differential Comment COMMENT 03/07/22 11:05: Sodium 119 L*, Potassium 4.5, Chloride 81 L, Carbon Dioxide 28.0, Anion Gap 10, BUN 4 L, Creatinine 0.64 L, Estim Creat Clear Calc 72.21, Est GFR (MDRD) Af Amer 157, Est GFR (MDRD) Non-Af 130, BUN/Creatinine Ratio 6.2 L, Glucose 100, Calcium 8.6, Troponin I High Sens 40 03/07/22 11:05: B-Natriuretic Peptide 340.6 H 03/07/22 11:05: Lactic Acid 1.7 Micro: Microbiology 03/07/22 10:47 Nasal Secretion SARS-CoV-2 Antigen (Rapid) - Final Rhythm Strip Rhythm Strip: A-fib Rate: 55 Ectopy: PVC(s) Radiology Impression Chest X-Ray 03/07/22 11:10 IMPRESSION: Cardiomegaly. Mild increased linear markings at the lung bases suggestive of bibasilar scarring. Electronically Signed: Emiliano Floyd MD at 11:59 EDT , Assessment & Plan Assessment/Plan (1) Acute hyponatremia: PLAN: Plan 1. Acute recurrent hyponatremia-exact etiology unclear, patient was taking a diuretic at home, he is also on Depakote and he does have a history of COPD. I will place the patient on IV normal saline at 100 cc/h, labs will be monitored. #2 acute on chronic debility-secondary to multiple medical problems, patient will be seen by PT and OT, he may require placement in a [facility] facility-patient was at [facility] in the past #3 COPD-patient is actively wheezing today, he states he smokes about a pack of cigarettes a day, I placed him on a nicotine patch and aerosol treatments. Patient is not requiring oxygen at this time. #4 chronic lymphedema of the lower legs, legs will be Ezra wrapped, I am reluctant to place the patient on diuretics at this time. #5 essential hypertension-patient will remain on his present medications #6 bipolar disorder-patient is on several psychotropic medications, these will be continued in the hospital #7 coronary artery disease-this appears stable at this time, patient will remain on his present medications #8 pulmonary hypertension-patient's last echocardiogram last year showed evidence of severe pulmonary hypertension, this will complicate care, management, recovery, and prognosis. #9 BPH-patient is on Proscar #10 chronic alcohol use-patient states he drinks approximately 6 beers per day, I have elected to place him on 2 beers per day while he is in the hospital #11 stage II pressure injury right buttocks-resolved to stage I at this time- Calmoseptine will be applied to the area #12 stage II pressure injury left buttocks-Calmoseptine will be applied to the area Charges/Coding Visit Charges Inpatient E&M: 13238 Init Hosp L3
[2022-03-07] MEDS: Budesonide Respules 0.5 MG/2 ML AMPUL.NEB. INHALATION (19:10)
[2022-03-07] MEDS: Divalproex (ER) 250 MG Tablet 750 MG PO (19:39)
[2022-03-07] MEDS: OLANZapine 10 MG Tablet PO (19:39)
[2022-03-07] MEDS: Heparin Injection (Vial) 5,000 UNIT/ML VIAL 5000 UNIT SC (19:39)
[2022-03-07] MEDS: HYDROcodone Bitartrate/Apap 5/325 Tablet PO (19:39)
[2022-03-07] MEDS: Finasteride 5 MG Tablet PO (19:39)
[2022-03-07] MEDS: MELATONIN 3 MG TABLET PO (21:32)
[2022-03-08] VITALS (15 sets, daily range): BP systolic 121–156; BP diastolic 56–88; PULSE 42–58; RESP 16–24; TEMP 36.4–37.1; O2SAT 90–98
[2022-03-08] MEDS: 0.9% Normal Saline 1,000 ML 100 ML IV ×2 (01:20→10:57)
[2022-03-08 06:34] LABS: Anion Gap 8 (5-15); BUN 7 mg/dL (7-18); BUN/Creat Ratio 9.5 RATIO (10-20); Calcium,Total 8.3 mg/dL (8.5-10.1); Chloride 86 mmol/L (98-107); Creatinine, Serum 0.74 mg/dL (0.70-1.30); EST Glomerular Filtration Rate 110 mL/min (>60); Est Glom Filt Rate - Afr Amer 133 mL/min (>60); Estimated Creatinine Clearance 72.21 ml/min; Glucose 109 mg/dL (74-106); Potassium 4.1 mmol/L (3.5-5.1); Sodium Level 124 mmol/L (136-145)
[2022-03-08 07:11] LABS: Base Excess 3 mmol/L (-2 to +2); Bicarbonate 27.5 mmol/L (22-26); Blood Gas Specimen Type ART; PO2 52 mmHG (75-100); SITE R Radial; SO2 86 % (95-99); Total Carbon Dioxide 29 mmol/L
[2022-03-08] MEDS: Budesonide Respules 0.5 MG/2 ML AMPUL.NEB. INHALATION ×2 (07:24→19:08)
[2022-03-08] MEDS: Ipratropium/Albuterol Sulfate 3 ML AMPUL.NEB INHALATION ×3 (07:24→19:08)
[2022-03-08] MEDS: Heparin Injection (Vial) 5,000 UNIT/ML VIAL 5000 UNIT SC ×2 (10:24→20:52)
[2022-03-08] MEDS: Losartan Potassium 50 MG Tablet PO (10:24)
[2022-03-08] MEDS: Thiamine Hydrochloride 100 MG Tablet PO (10:24)
[2022-03-08] MEDS: Folic Acid 1 MG Tablet PO (10:24)
[2022-03-08] MEDS: Pantoprazole Sodium 20 MG Tablet PO (10:26)
--- NOTE | 2022-03-08 13:35 | PCM.PN.HOSP ---
Subjective Subjective Reports that he is feeling somewhat better today. He is pleased to hear that his sodium is improved. He states he probably has not been watching his fluid intake at home. Is complaining of a little shortness of breath today and notes that he is wheezing. Does not wear oxygen at baseline. Admits that he is still smoking. Objective Data Objective Data Vital Signs: Vital Signs Temp Pulse Resp BP Pulse Ox O2 Del Method O2 Flow Rate 98.7 F 55 L 18 124/59 H 96 Nasal Cannula 2 03/08/22 12:49 03/08/22 13:23 03/08/22 13:23 03/08/22 12:49 03/08/22 13:23 03/08/22 13:23 03/08/22 13:23 Oxygen Flow Rate (L/min) 2 Oxygen Delivery Method Nasal Cannula Weight: 120.338 kg Body Mass Index (BMI) 35.8 Intake & Output: Intake and Output for Last 24 Hours 03/06/22 03/07/22 03/08/22 23:59 23:59 23:59 Intake Total 250 / 310 2621.67 / 2621.67 Output Total 400 / 675 725 / 725 Balance -150 / -365 1896.67 / 1896.67 Lab / Micro Data Result Diagrams: 03/07/22 11:05 03/08/22 05:29 Labs: Laboratory Results - last 24 hr 03/08/22 05:29: Sodium 124 L, Potassium 4.1, Chloride 86 L, Carbon Dioxide 30.0, Anion Gap 8, BUN 7, Creatinine 0.74, Estim Creat Clear Calc 72.21, Est GFR (MDRD) Af Amer 133, Est GFR (MDRD) Non-Af 110, BUN/Creatinine Ratio 9.5 L, Glucose 109 H, Calcium 8.3 L Micro: Microbiology 03/07/22 10:47 Nasal Secretion SARS-CoV-2 Antigen (Rapid) - Final ABG Data ABG results: ABG 03/07/22 11:08 Specimen Type ART Sample Site R Radial pH 7.40 Bicarbonate Actual 27.5 H Total CO2 29 Base Excess 3 H O2 Saturation 86 L ABG pCO2 44.0 ABG pO2 52 L Rhythm Strip Rhythm Strip: A-fib Rate: 55 Ectopy: PVC(s) Physical Exam Const alert, oriented x3, no apparent distress and well nourished Constitutional Narrative: Obese, older white male, sitting up in bed, nursing at side, patient appears comfortable, watching television, no acute distress HEENT head/scalp atraumatic and moist oral mucous membranes HEENT Narrative: Dentition is poor, Mallampati is 3, no thrush Resp no retractions and no use of accessory muscles Resp Narrative: Scattered end expiratory wheeze, no rales or rhonchi, no signs of respiratory distress Auscultation: wheezes; Negative for crackles, rales or rhonchi Cardio regular rate, regular rhythm, S1 normal heart sound, S2 normal heart sound, no murmurs, no rub, no gallops, no clicks and no JVD GI normal to inspection, nondistended, normoactive bowel sounds, soft to palpation, non-tender and non-distended Extremity Extremity Narrative: Trace bilateral lower extremity pitting edema, no cyanosis or clubbing Neuro oriented x3, CN's II-XII intact bilaterally, moves all extremities and no focal motor deficits Sensorium / Orientation: awake, alert, oriented to person, oriented to place and oriented to time Speech: speech normal Psych Psych Narrative: Affect is flat, mood seems depressed Assessment & Plan Assessment/Plan (1) Acute hyponatremia: (2) Acute exacerbation of COPD with asthma: (3) Bilateral edema of lower extremity: (4) Hypoxemia: (5) Primary adenocarcinoma of lower lobe of right lung: (6) Primary adenocarcinoma of upper lobe of left lung: PLAN: Plan Acute on chronic hyponatremia -Patient was seen for this previously with an admission back in May 2021 but her issues with chronic hyponatremia -Has multiple risk factors including lung cancer, Depakote, chronic alcohol use -Baseline appears to be 130 135 -119 on admission -124 this morning -Discontinue IV fluids and trend sodium -Check urine sodium/urine osmolality/serum osmolality/uric acid Acute exacerbation of COPD with hypoxia -Patient markedly wheezy on exam -Intermittent cough -Start Solu-Medrol 40 mg every 8 -Continue aerosols -Wean oxygen as able -Continue home Pulmicort -Recheck chest x-ray in a.m. -Currently on 2 L nasal cannula with an SPO2 of 96% -We will need ambulatory pulse ox prior to discharge -Had recent PFTs with an FEV1 of 50% -Patient continues to smoke Chronic lymphedema -Ezra bandage wraps -Monitor for debility utilize diuretics -May consider if sodium improves off IV fluids Adenocarcinoma of the lung -Patient has had adenocarcinoma of bilateral lungs -Has had a previous recent favorable PET scan -Follows at the [facility] Hypertension -Continue home losartan -Hold home Lasix CAD -Patient is on any medications at baseline -Monitor Pulmonary hypertension -Suspect secondary to lung disease with who group 3 -Lasix on hold secondary to hyponatremia -We will likely be able to restart soon but need to continue to monitor sodium Acute on chronic debility -PT/OT consultation -May require skilled placement at discharge depending on how he does clinically BPH -Continue Proscar -Continue Flomax Stage II pressure ulcer bilateral buttocks -Wound care -Geraldine to the area -Reduce pressure as able Chronic alcohol use -Patient drinks approximately 6 beers daily -Patient was placed on beer while hospitalized to daily Bipolar disorder -Stable -Continue home psychiatric medications DVT prophylaxis -Continue heparin Charges/Coding Visit Charges Inpatient E&M: 73223 Subs Hosp L2
[2022-03-08] MEDS: HYDROcodone Bitartrate/Apap 5/325 Tablet PO (14:36)
[2022-03-08] MEDS: Diclofenac 75 MG Tablet PO (14:36)
[2022-03-08 15:30] LABS: Uric Acid 7.2 mg/dL (3.5-7.2)
[2022-03-08 16:15] LABS: Osmolality, Serum 279 mOsm/KG (280-301)
--- NOTE | 2022-03-08 16:24 | CASEMGMT ---
RN CM in to pt room, pt sitting up in chair. Pt states he wants to return home and does not want SNF. Patient was provided a list of [facility] providers including quality and resource use data and consistent with the patient?s preferred geographic region, medical needs, and insurance network. The patient?s preferred provider is [facility]. Green sheet on chart for oxygen and pulse ox.
[2022-03-08] MEDS: Tamsulosin HCl 0.4 MG Capsule PO (16:53)
[2022-03-08 17:10] LABS: Urine Sodium 22 mmol/L (Not Establ.)
[2022-03-08 17:22] LABS: Anion Gap 7 (5-15); BUN 8 mg/dL (7-18); BUN/Creat Ratio 10.5 RATIO (10-20); Calcium,Total 8.7 mg/dL (8.5-10.1); Chloride 91 mmol/L (98-107); Creatinine, Serum 0.76 mg/dL (0.70-1.30); EST Glomerular Filtration Rate 106 mL/min (>60); Est Glom Filt Rate - Afr Amer 129 mL/min (>60); Estimated Creatinine Clearance 72.21 ml/min; Glucose 184 mg/dL (74-106); Potassium 4.6 mmol/L (3.5-5.1); Sodium Level 126 mmol/L (136-145)
[2022-03-08 17:48] LABS: Osmolality, Urine 137 mOsm/KG
--- NOTE | 2022-03-08 18:23 | NURSING ---
All documentation and medication administration completed by Josefa Fontaine RN done under the supervision of this RN.
[2022-03-08] MEDS: Divalproex (ER) 250 MG Tablet 750 MG PO (20:49)
[2022-03-08] MEDS: Finasteride 5 MG Tablet PO (20:51)
[2022-03-08] MEDS: 0.9% Saline Lock 10 ML Syringe IV ×2 (20:55→20:59)
[2022-03-08] MEDS: OLANZapine 10 MG Tablet PO (20:56)
[2022-03-09] VITALS (12 sets, daily range): BP systolic 147–162; BP diastolic 60–82; PULSE 43–58; RESP 18–24; TEMP 36.3–36.7; O2SAT 91–98
--- NOTE | 2022-03-09 04:45 | RAD_ITS ---
STUDY: X-RAY CHEST REASON FOR EXAM: Male, 71 years old. Shortness of breath TECHNIQUE: Portable, upright, AP chest radiograph COMPARISON: 03/07/2022 FINDINGS: Unchanged appearance of bibasilar scarring. No finding of focal consolidation. There is no demonstrated pleural abnormality. There is mild cardiac enlargement. Normal mediastinum and sofía. There is prominence of the pulmonary hilar arteries and peripheral pulmonary arteries, consistent with congestive heart failure (CHF). There is atherosclerotic calcification of the aortic arch with tortuosity. There is no demonstrated abnormality of the visualized soft tissue structures of the upper abdomen. RAD/Chest 1 View (Portable) IMPRESSION: CHF. Electronically Signed: Ronak Fernandes MD at 5:17 EDT ,
[2022-03-09] MEDS: 0.9% Saline Lock 10 ML Syringe IV ×4 (06:25→21:45)
[2022-03-09 06:56] LABS: Absolute Lymphocyte Count 0.41 X10^3/uL (0.83-4.51); Hematocrit 42.5 % (40-54); Hemoglobin 13.8 g/dL (13.0-16.5); Lymphocyte # 0.41 X10^3/ul (0.83-4.51); Lymphocyte % 7.4 % (19-41); Mean Corp Hgb Conc 32.5 g/dL (32-36); Mean Corpuscular Hgb 32.2 pg (27.0-32.0); Mean Corpuscular Volume 99.3 fL (80-94); Mean Platelet Vol. 10.4 fl (6.2-12.0); Monocyte# 0.14 X10^3/uL; Monocyte% 2.5 % (0-10); NRBC Flagged by Analyzer 0 % (0-5); Neutrophil # 4.98 X10^3/uL (2.7-7.7); Neutrophil % 89.6 % (47-70); POSITIVE DIFFERENTIAL YES; Platelet Count 111 K/mm3 (150-450); RBC Distribution Width CV 15.8 % (11.6-14.6); RBC Distribution Width SD 57.1 fl (35.1-43.9); Red Blood Count 4.28 M/mm3 (4.6-6.2); White Blood Count 5.6 K/mm3 (4.4-11.0)
[2022-03-09 07:13] LABS: Anion Gap 7 (5-15); BUN 12 mg/dL (7-18); BUN/Creat Ratio 15.9 RATIO (10-20); Calcium,Total 8.8 mg/dL (8.5-10.1); Chloride 90 mmol/L (98-107); Creatinine, Serum 0.76 mg/dL (0.70-1.30); EST Glomerular Filtration Rate 107 mL/min (>60); Est Glom Filt Rate - Afr Amer 130 mL/min (>60); Estimated Creatinine Clearance 72.21 ml/min; Glucose 152 mg/dL (74-106); Sodium Level 126 mmol/L (136-145)
[2022-03-09 07:14] LABS: Differential Indicated SCAN CRITERIA MET
[2022-03-09] MEDS: Ipratropium/Albuterol Sulfate 3 ML AMPUL.NEB INHALATION ×3 (07:29→19:44)
[2022-03-09] MEDS: Budesonide Respules 0.5 MG/2 ML AMPUL.NEB. INHALATION ×2 (07:29→19:44)
[2022-03-09 08:05] LABS: Platelet Estimate ADEQUATE (ADEQ); Red Cell Morphology NORM C+C NORMAL (NORM C&C)
[2022-03-09] MEDS: 0.9% Normal Saline 1,000 ML 75 ML IV (08:53)
[2022-03-09] MEDS: Thiamine Hydrochloride 100 MG Tablet PO (09:05)
[2022-03-09] MEDS: Losartan Potassium 50 MG Tablet PO (09:05)
[2022-03-09] MEDS: Heparin Injection (Vial) 5,000 UNIT/ML VIAL 5000 UNIT SC ×2 (09:05→21:52)
[2022-03-09] MEDS: Folic Acid 1 MG Tablet PO (09:05)
[2022-03-09] MEDS: Pantoprazole Sodium 20 MG Tablet PO (09:06)
--- NOTE | 2022-03-09 10:54 | PN.HOSP_ITS ---
Subjective Subjective Patient feels like his breathing is better. Sodium is improving and most recently was 126. Discussed possible discharge home tomorrow if he has continued improvement in his sodium and we can get him off oxygen and he is pleased to hear that this is a possibility. He has no specific complaints at this time. I did encourage him to get out of bed. Patient indicates that he is due for a repeat CAT scan in April and that he is currently not undergoing any chemo or radiation. Objective Data Objective Data Vital Signs: Vital Signs Temp Pulse Resp BP Pulse Ox O2 Del Method O2 Flow Rate 97.5 F L 45 L 20 H 155/62 H 94 Nasal Cannula 2 03/09/22 08:38 03/09/22 08:38 03/09/22 08:38 03/09/22 08:38 03/09/22 08:38 03/09/22 08:48 03/09/22 08:48 Oxygen Flow Rate (L/min) 2 Oxygen Delivery Method Nasal Cannula Weight: 122.4 kg Body Mass Index (BMI) 35.8 Intake & Output: Intake and Output for Last 24 Hours 03/07/22 03/08/22 03/09/22 23:59 23:59 23:59 Intake Total 250 / 310 3348.34 / 3348.34 Output Total 400 / 675 845 / 1045 700 / 700 Balance -150 / -365 2503.34 / 2303.34 -700 / -700 Lab / Micro Data Result Diagrams: 03/09/22 05:17 03/09/22 05:17 Labs: Laboratory Results - last 24 hr 03/08/22 14:11: Uric Acid 7.2 03/08/22 14:11: Serum Osmolality 279 L 03/08/22 16:44: Urine Osmolality 137, Ur Random Sodium 22 03/08/22 17:01: Sodium 126 L, Potassium 4.6, Chloride 91 L, Carbon Dioxide 28.0, Anion Gap 7, BUN 8, Creatinine 0.76, Estim Creat Clear Calc 72.21, Est GFR (MDRD) Af Amer 129, Est GFR (MDRD) Non-Af 106, BUN/Creatinine Ratio 10.5, Glucose 184 H, Calcium 8.7 03/09/22 05:17: WBC 5.6, RBC 4.28 L, Hgb 13.8, Hct 42.5, MCV 99.3 H D, MCH 32.2 H, MCHC 32.5, RDW Std Deviation 57.1 H, RDW Coeff of Fredi 15.8 H, Plt Count 111 L , MPV 10.4, Immature Gran % (Auto) 0.500, Neut % (Auto) 89.6 H, Lymph % (Auto) 7.4 L, [place] % (Auto) 2.5, Eos % (Auto) 0.0, Baso % (Auto) 0.0, Absolute Neuts (auto) 5.0, Absolute Lymphs (auto) 0.41 L, Nucleated RBC % 0, Platelet Estimate ADEQUATE, RBC Morphology NORM C+C 03/09/22 05:17: Sodium 126 L, Potassium 5.0, Chloride 90 L, Carbon Dioxide 29.0, Anion Gap 7, BUN 12, Creatinine 0.76, Estim Creat Clear Calc 72.21, Est GFR (MDRD) Af Amer 130, Est GFR (MDRD) Non-Af 107, BUN/Creatinine Ratio 15.9, Glucose 152 H, Calcium 8.8 Micro: Microbiology 03/07/22 10:47 Nasal Secretion SARS-CoV-2 Antigen (Rapid) - Final Radiography Diagnostic Testing: Radiology Impression Chest X-Ray 03/09/22 04:45 IMPRESSION: CHF. Electronically Signed: Ronak Fernandes MD at 5:17 EDT , Rhythm Strip Rhythm Strip: A-fib Rate: 55 Ectopy: PVC(s) Physical Exam Const alert, oriented x3, no apparent distress and well nourished Constitutional Narrative: Obese, older white male, sitting up in bed, nursing at side, patient appears comfortable, watching television, no acute distress General Appearance: cooperative and well developed HEENT normocephalic, head/scalp atraumatic and moist oral mucous membranes HEENT Narrative: Moderate hearing loss, dentition is poor, Mallampati is 3, no thrush Resp normal respiratory effort, no retractions and no use of accessory muscles Resp Narrative: Few scattered coarse breath sounds but no further wheezing, effort is normal and patient has been weaned to 2 L nasal cannula Auscultation: rhonchi; Negative for crackles, rales or wheezes Cardio regular rate, regular rhythm, S1 normal heart sound, S2 normal heart sound, no murmurs, no rub, no gallops, no clicks and no JVD GI normal to inspection, nondistended, normoactive bowel sounds, soft to palpation, non-tender and non-distended Extremity Extremity Narrative: Trace bilateral lower extremity pitting edema, no cyanosis or clubbing Neuro oriented x3, moves all extremities and no focal motor deficits Speech: speech normal Psych Psych Narrative: Affect is flat, mood seems depressed Assessment & Plan Assessment/Plan (1) Acute hyponatremia: (2) Acute exacerbation of COPD with asthma: (3) Bilateral edema of lower extremity: (4) Hypoxemia: (5) Primary adenocarcinoma of lower lobe of right lung: (6) Primary adenocarcinoma of upper lobe of left lung: PLAN: Plan Acute on chronic hyponatremia -Patient was seen for this previously with an admission back in May 2021 but her issues with chronic hyponatremia -Has multiple risk factors including lung cancer, Depakote, chronic alcohol use -Baseline appears to be 130 135 -119 on admission -126 this morning -Continue to hold fluids and will give some Lasix 40 mg IV push twice daily and monitor sodiums closely -Urine studies are not consistent with SIADH but appear to be somewhat mixed as his urine sodium is 22 with an elevated uric acid at 7.2 and slightly hypoos molar -I suspect a primary contributor is his alcohol use and I have encouraged him to limit his drinking at least to no more than 1-2 beers daily--> he thought he could do 2-3 rather than 6-8 Acute exacerbation of COPD with hypoxia -Breath sounds are coarse but wheezing has improved -Intermittent cough -Continue Solu-Medrol 40 mg every 8--> with plans to utilize slow prednisone taper at discharge -Continue aerosols -Wean oxygen as able -Continue home Pulmicort -Chest x-ray this morning looks like he is in volume overload -Will order some IV Lasix and monitor sodium closely -Remains on 2 L nasal cannula -We will need ambulatory pulse ox prior to discharge -Had recent PFTs with an FEV1 of 50% -Patient continues to smoke Chronic lymphedema -Ezra bandage wraps -Monitor for debility utilize diuretics -May consider if sodium improves off IV fluids Adenocarcinoma of the lung -Patient has had adenocarcinoma of bilateral lungs -Has had a previous recent favorable PET scan -Follows at the [facility] Hypertension -Continue home losartan -Hold home Lasix CAD -Patient is on any medications at baseline -Monitor Pulmonary hypertension -Suspect secondary to lung disease with who group 3 -Restart Lasix -We will likely be able to restart soon but need to continue to monitor sodium Acute on chronic debility -PT/OT consultation -May require skilled placement at discharge depending on how he does clinically BPH -Continue Proscar -Continue Flomax Stage II pressure ulcer bilateral buttocks -Wound care -Geraldine to the area -Reduce pressure as able Chronic alcohol use -Patient drinks approximately 6 beers daily -Patient was placed on beer while hospitalized to daily Bipolar disorder -Stable -Continue home psychiatric medications DVT prophylaxis -Continue heparin Charges/Coding Visit Charges Inpatient E&M: 33894 Subs Hosp L2
[2022-03-09] MEDS: HYDROcodone Bitartrate/Apap 5/325 Tablet PO ×2 (11:07→20:13)
[2022-03-09] MEDS: Diclofenac 75 MG Tablet PO (11:07)
[2022-03-09 13:35] LABS: Anion Gap 11 (5-15); BUN 13 mg/dL (7-18); Calcium,Total 8.7 mg/dL (8.5-10.1); Chloride 88 mmol/L (98-107); Creatinine, Serum 0.93 mg/dL (0.70-1.30); EST Glomerular Filtration Rate 85 mL/min (>60); Est Glom Filt Rate - Afr Amer 102 mL/min (>60); Estimated Creatinine Clearance 77.65 ml/min; Glucose 242 mg/dL (74-106); Potassium 4.8 mmol/L (3.5-5.1); Sodium Level 125 mmol/L (136-145)
[2022-03-09] MEDS: Tamsulosin HCl 0.4 MG Capsule PO (16:31)
--- NOTE | 2022-03-09 16:48 | NURSING ---
All documentation and medication administration completed by Josefa Fontaine RN done under the supervision of this RN.
[2022-03-09] MEDS: Furosemide 40 MG/4 ML Vial IV (18:06)
--- NOTE | 2022-03-09 21:15 | NURSING ---
pt refusing bipap tonight and states she will try to work on breathing better. Her saturation is between 96-97% on 2L, w/ respiration rate of between 16-28 per minute.
[2022-03-09] MEDS: Divalproex (ER) 250 MG Tablet 750 MG PO (21:49)
[2022-03-09] MEDS: OLANZapine 10 MG Tablet PO (21:51)
[2022-03-09] MEDS: Finasteride 5 MG Tablet PO (21:52)
[2022-03-10] VITALS (17 sets, daily range): BP systolic 132–172; BP diastolic 64–82; PULSE 42–74; RESP 18–24; TEMP 36.5–36.8; O2SAT 86–96
[2022-03-10] MEDS: HYDROcodone Bitartrate/Apap 5/325 Tablet PO ×3 (04:10→20:21)
[2022-03-10] MEDS: hydrALAZINE 20 MG/ML Vial 5 MG IV (05:53)
[2022-03-10] MEDS: 0.9% Saline Lock 10 ML Syringe IV ×3 (05:59→15:57)
[2022-03-10 06:51] LABS: Absolute Lymphocyte Count 0.47 X10^3/uL (0.83-4.51); Absolute Neutrophil Count 8.4 X10^3/uL (2.0-7.7); Basophil# 0.01 X10^3/uL; Basophil% 0.1 % (0-1); Hematocrit 39.7 % (40-54); Lymphocyte # 0.47 X10^3/ul (0.83-4.51); Mean Corp Hgb Conc 32.7 g/dL (32-36); Mean Corpuscular Hgb 31.8 pg (27.0-32.0); Mean Corpuscular Volume 97.1 fL (80-94); Mean Platelet Vol. 9.6 fl (6.2-12.0); Monocyte# 0.45 X10^3/uL; Monocyte% 4.8 % (0-10); NRBC Flagged by Analyzer 0 % (0-5); Neutrophil # 8.41 X10^3/uL (2.7-7.7); Neutrophil % 89.6 % (47-70); POSITIVE DIFFERENTIAL YES; Platelet Count 118 K/mm3 (150-450); RBC Distribution Width CV 15.8 % (11.6-14.6); RBC Distribution Width SD 56.3 fl (35.1-43.9); Red Blood Count 4.09 M/mm3 (4.6-6.2); White Blood Count 9.4 K/mm3 (4.4-11.0)
[2022-03-10] MEDS: Ipratropium/Albuterol Sulfate 3 ML AMPUL.NEB INHALATION ×3 (06:53→19:37)
[2022-03-10 06:55] LABS: Differential Indicated SCAN CRITERIA MET
[2022-03-10] MEDS: Budesonide Respules 0.5 MG/2 ML AMPUL.NEB. INHALATION ×2 (06:57→19:37)
[2022-03-10 07:18] LABS: Anion Gap 10 (5-15); BUN 15 mg/dL (7-18); BUN/Creat Ratio 19.4 RATIO (10-20); Calcium,Total 9.1 mg/dL (8.5-10.1); Chloride 87 mmol/L (98-107); Creatinine, Serum 0.77 mg/dL (0.70-1.30); EST Glomerular Filtration Rate 105 mL/min (>60); Est Glom Filt Rate - Afr Amer 127 mL/min (>60); Estimated Creatinine Clearance 72.21 ml/min; Glucose 170 mg/dL (74-106); Magnesium 2.3 mg/dL (1.6-2.6); Potassium 4.7 mmol/L (3.5-5.1); Sodium Level 126 mmol/L (136-145)
[2022-03-10] MEDS: Losartan Potassium 50 MG Tablet PO (07:57)
[2022-03-10] MEDS: Thiamine Hydrochloride 100 MG Tablet PO (07:57)
[2022-03-10] MEDS: Pantoprazole Sodium 20 MG Tablet PO (07:57)
[2022-03-10] MEDS: Folic Acid 1 MG Tablet PO (07:57)
[2022-03-10] MEDS: Heparin Injection (Vial) 5,000 UNIT/ML VIAL 5000 UNIT SC ×2 (07:57→21:17)
[2022-03-10] MEDS: Furosemide 40 MG/4 ML Vial IV ×2 (07:59→15:57)
--- NOTE | 2022-03-10 11:14 | CASEMGMT ---
Addendum entered by Verónica Collado 03/10/22 14:23: Pt does qualify for home oxygen w/ exertion at this time but will be tested again tomorrow on day of discharge. CM to follow. Alberta GAMBLE CM Addendum entered by Verónica Collado 03/10/22 14:21: Pt updated on [facility] and states no concerns with going home at time of discharge. Pt states his sister and niece are currently living with him and can assist, if needed. Pt voices no further questions/concerns/needs. Plan is to d/c tomorrow per Dr. Harvey. Alberta GAMBLE CM Addendum entered by Verónica Collado 03/10/22 12:10: Call back from [place] at [facility] and they can accept pt and do SOC 03/12/22. CM to follow for home oxygen need. Alberta GAMBLE CM Original Note: Pt states plans to go home at discharge and would like [facility] set up. Order placed for SN, PT/OT and referral called to [place] at [facility]. Pt just d/c'd from [facility] on 02/19/22. CM to follow for acceptance and pt need for home oxygen. Alberta GAMBLE CM
--- NOTE | 2022-03-10 12:31 | PN.HOSP_ITS ---
Subjective Subjective Breathing is better and patient has been weaned to room air. Continue diuresis. Sodium has been stable at 126 with repeat pending. Would like to see sodium 135 or greater before discharge. Patient without any specific complaints today. Objective Data Objective Data Vital Signs: Vital Signs Temp Pulse Resp BP Pulse Ox O2 Del Method O2 Flow Rate 98.2 F 47 L 18 172/72 H 96 Room Air 0 03/10/22 07:54 03/10/22 07:54 03/10/22 07:54 03/10/22 07:54 03/10/22 07:54 03/10/22 08:37 03/09/22 14:00 Oxygen Flow Rate (L/min) 0 Oxygen Delivery Method Room Air Weight: 123.4 kg Body Mass Index (BMI) 35.8 Intake & Output: Intake and Output for Last 24 Hours 03/08/22 03/09/22 03/10/22 23:59 23:59 23:59 Intake Total 3348.34 / 3348.34 796.25 / 1456.25 880 / 880 Output Total 845 / 1045 875 / 2025 1350 / 1350 Balance 2503.34 / 2303.34 -78.75 / -568.75 -470 / -470 Lab / Micro Data Result Diagrams: 03/10/22 05:30 03/10/22 05:30 Labs: Laboratory Results - last 24 hr 03/09/22 13:00: Sodium 125 L, Potassium 4.8, Chloride 88 L, Carbon Dioxide 26.0, Anion Gap 11, BUN 13, Creatinine 0.93, Estim Creat Clear Calc 77.65, Est GFR (MDRD) Af Amer 102, Est GFR (MDRD) Non-Af 85, BUN/Creatinine Ratio 14.0, Glucose 242 H, Calcium 8.7 03/10/22 05:30: WBC 9.4, RBC 4.09 L, Hgb 13.0, Hct 39.7 L, MCV 97.1 H, MCH 31.8, MCHC 32.7, RDW Std Deviation 56.3 H, RDW Coeff of Fredi 15.8 H, Plt Count 118 L, MPV 9.6, Immature Gran % (Auto) 0.500, Neut % (Auto) 89.6 H, Lymph % (Auto) 5.0 L, [place] % (Auto) 4.8, Eos % (Auto) 0.0, Baso % (Auto) 0.1, Absolute Neuts (auto) 8.4 H, Absolute Lymphs (auto) 0.47 L, Nucleated RBC % 0 03/10/22 05:30: Sodium 126 L, Potassium 4.7, Chloride 87 L, Carbon Dioxide 29.0, Anion Gap 10, BUN 15, Creatinine 0.77, Estim Creat Clear Calc 72.21, Est GFR (MDRD) Af Amer 127, Est GFR (MDRD) Non-Af 105, BUN/Creatinine Ratio 19.4, Glucose 170 H, Calcium 9.1, Magnesium 2.3 Micro: Microbiology 03/07/22 10:47 Nasal Secretion SARS-CoV-2 Antigen (Rapid) - Final Rhythm Strip Rhythm Strip: A-fib Rate: 55 Ectopy: PVC(s) Physical Exam Const alert, oriented x3, no apparent distress and well nourished Constitutional Narrative: Obese, older white male, sitting up in bed, watching television, patient appears comfortable, no acute distress General Appearance: cooperative and well developed Orientation / Consciousness: awake, oriented to person, oriented to place and oriented to time HEENT normocephalic, head/scalp atraumatic, hearing grossly normal bilaterally and moist oral mucous membranes HEENT Narrative: Mallampati is 3, no thrush Resp normal respiratory effort, no retractions and no use of accessory muscles Resp Narrative: Diffusely diminished with coarse breath sounds bilaterally but currently on room air Auscultation: rhonchi; Negative for crackles, rales or wheezes Cardio regular rate, regular rhythm, S1 normal heart sound, S2 normal heart sound, no murmurs, no rub, no gallops, no clicks and no JVD GI normal to inspection, nondistended, normoactive bowel sounds, soft to palpation, non-tender and non-distended GI Narrative: Large protuberant abdomen with no fluid wave Extremity Extremity Narrative: Trace bilateral lower extremity pitting edema, no cyanosis or clubbing Neuro oriented x3, CN's II-XII intact bilaterally, moves all extremities, no focal mot or deficits and no sensory deficits noted Sensorium / Orientation: awake, alert, oriented to person, oriented to place and oriented to time Speech: speech normal Psych Psych Narrative: More interactive today and conversational Assessment & Plan Assessment/Plan (1) Acute hyponatremia: (2) Acute exacerbation of COPD with asthma: (3) Bilateral edema of lower extremity: (4) Hypoxemia: (5) Primary adenocarcinoma of lower lobe of right lung: (6) Primary adenocarcinoma of upper lobe of left lung: (7) Thrombocytopenia: PLAN: Plan Acute on chronic hyponatremia -Patient was seen for this previously with an admission back in May 2021 but her issues with chronic hyponatremia -Has multiple risk factors including lung cancer, Depakote, chronic alcohol use -Baseline appears to be 130-135 -119 on admission - remains 126 this morning--> repeat pending for noon -Continue Lasix at this time until reevaluation at noon noted -Urine studies are not consistent with SIADH but appear to be somewhat mixed as his urine sodium is 22 with an elevated uric acid at 7.2 and slightly hypoosmolar -I suspect a primary contributor is his alcohol use and I have encouraged him to limit his drinking at least to no more than 1-2 beers daily--> he thought he could do 2-3 rather than 6-8 Acute exacerbation of COPD with hypoxia -Breath sounds are coarse but wheezing has improved -Intermittent cough -Convert to oral prednisone 40 mg daily -Continue aerosols -Patient is now on room air -Continue home Pulmicort -Chest x-ray this morning looks like he is in volume overload -Continue IV Lasix -We will need ambulatory pulse ox prior to discharge -Had recent PFTs with an FEV1 of 50% -Patient continues to smoke Thrombocytopenia -Is acute but stable and trending up -May be related to acute processes -We will repeat CBC in a.m. for stabilization Chronic lymphedema -Ezra bandage wraps -Monitor for debility utilize diuretics -May consider if sodium improves off IV fluids Adenocarcinoma of the lung -Patient has had adenocarcinoma of bilateral lungs -Has had a previous recent favorable PET scan -Follows at the [facility] Hypertension -Continue home losartan -Hold home Lasix CAD -Patient is on any medications at baseline -Monitor Pulmonary hypertension -Suspect secondary to lung disease with who group 3 -Restart Lasix -We will likely be able to restart soon but need to continue to monitor sodium Acute on chronic debility -PT/OT consultation -May require skilled placement at discharge depending on how he does clinically BPH -Continue Proscar -Continue Flomax Stage II pressure ulcer bilateral buttocks -Wound care -Geraldine to the area -Reduce pressure as able Chronic alcohol use -Patient drinks approximately 6 beers daily -Patient was placed on beer while hospitalized to daily Bipolar disorder -Stable -Continue home psychiatric medications DVT prophylaxis -Continue heparin Charges/Coding Visit Charges Inpatient E&M: 56324 Subs Hosp L2
[2022-03-10 12:44] LABS: Anion Gap 8 (5-15); BUN 18 mg/dL (7-18); BUN/Creat Ratio 18.5 RATIO (10-20); Calcium,Total 9.2 mg/dL (8.5-10.1); Chloride 87 mmol/L (98-107); Creatinine, Serum 0.97 mg/dL (0.70-1.30); EST Glomerular Filtration Rate 80 mL/min (>60); Est Glom Filt Rate - Afr Amer 97 mL/min (>60); Estimated Creatinine Clearance 74.44 ml/min; Glucose 185 mg/dL (74-106); Potassium 4.3 mmol/L (3.5-5.1); Sodium Level 125 mmol/L (136-145)
[2022-03-10] MEDS: Tamsulosin HCl 0.4 MG Capsule PO (15:57)
[2022-03-10] MEDS: Diclofenac 75 MG Tablet PO (21:15)
[2022-03-10] MEDS: Divalproex (ER) 250 MG Tablet 750 MG PO (21:16)
[2022-03-10] MEDS: Finasteride 5 MG Tablet PO (21:16)
[2022-03-10] MEDS: OLANZapine 10 MG Tablet PO (21:17)
[2022-03-11] VITALS (14 sets, daily range): BP systolic 149–159; BP diastolic 57–90; PULSE 47–74; RESP 16–20; TEMP 36.7–37.2; O2SAT 92–95
[2022-03-11] MEDS: HYDROcodone Bitartrate/Apap 5/325 Tablet PO ×4 (03:41→22:31)
[2022-03-11] MEDS: Budesonide Respules 0.5 MG/2 ML AMPUL.NEB. INHALATION (06:32)
[2022-03-11] MEDS: Ipratropium/Albuterol Sulfate 3 ML AMPUL.NEB INHALATION ×3 (06:32→19:36)
[2022-03-11 06:37] LABS: Anion Gap 8 (5-15); BUN 24 mg/dL (7-18); BUN/Creat Ratio 26.2 RATIO (10-20); Calcium,Total 8.7 mg/dL (8.5-10.1); Chloride 85 mmol/L (98-107); Creatinine, Serum 0.92 mg/dL (0.70-1.30); EST Glomerular Filtration Rate 86 mL/min (>60); Est Glom Filt Rate - Afr Amer 104 mL/min (>60); Estimated Creatinine Clearance 78.49 ml/min; Glucose 114 mg/dL (74-106); Potassium 4.2 mmol/L (3.5-5.1); Sodium Level 125 mmol/L (136-145)
[2022-03-11] MEDS: Diclofenac 75 MG Tablet PO ×2 (08:10→20:36)
[2022-03-11] MEDS: Heparin Injection (Vial) 5,000 UNIT/ML VIAL 5000 UNIT SC ×2 (08:12→22:25)
[2022-03-11] MEDS: Pantoprazole Sodium 20 MG Tablet PO (08:12)
[2022-03-11] MEDS: predniSONE 20 MG Tablet 40 MG PO (08:12)
[2022-03-11] MEDS: Folic Acid 1 MG Tablet PO (08:12)
[2022-03-11] MEDS: Thiamine Hydrochloride 100 MG Tablet PO (08:12)
[2022-03-11] MEDS: Losartan Potassium 50 MG Tablet PO (08:12)
[2022-03-11] MEDS: Sodium Chloride 1 GM Tablet PO ×3 (09:48→22:31)
--- NOTE | 2022-03-11 11:52 | PCM.PN.HOSP ---
Subjective Subjective Short of breath with transition from the bed to the chair and sats dropped to 89% however patient recovered quickly. Sodium is still in the 1 25-1 26 during despite multiple interventions. Patient adamantly refusing to go to a nursing facility and will obtain home health at discharge. He is willing to wear oxygen if we recommended however he is reluctant. We did talk about smoking while he is on oxygen how we could cause a neck explosion if he were to smoke while he is on oxygen he voices understanding. Objective Data Objective Data Vital Signs: Vital Signs Temp Pulse Resp BP Pulse Ox O2 Del Method O2 Flow Rate 98.2 F 49 L 18 150/65 H 93 Room Air 2 03/11/22 08:08 03/11/22 10:59 03/11/22 08:08 03/11/22 08:08 03/11/22 08:08 03/11/22 08:45 03/10/22 14:50 Oxygen Flow Rate (L/min) [ 2 AMBULATING with Oxygen #1] Oxygen Flow Rate (L/min) 0 Oxygen Delivery Method Room Air Weight: 122.9 kg Body Mass Index (BMI) 35.8 Intake & Output: Intake and Output for Last 24 Hours 03/09/22 03/10/22 03/11/22 23:59 23:59 23:59 Intake Total 796.25 / 1456.25 880 / 880 Output Total 875 / 5 2050 / 3100 1250 / 1250 Balance -78.75 / -568.75 -1170 / -2220 -1250 / -1250 Lab / Micro Data Result Diagrams: 03/10/22 05:30 03/11/22 05:25 Labs: Laboratory Results - last 24 hr 03/10/22 12:15: Sodium 125 L, Potassium 4.3, Chloride 87 L, Carbon Dioxide 30.0, Anion Gap 8, BUN 18, Creatinine 0.97, Estim Creat Clear Calc 74.44, Est GFR (MDRD) Af Amer 97, Est GFR (MDRD) Non-Af 80, BUN/Creatinine Ratio 18.5, Glucose 185 H, Calcium 9.2 03/11/22 05:25: Sodium 125 L, Potassium 4.2, Chloride 85 L, Carbon Dioxide 32.0, Anion Gap 8, BUN 24 H, Creatinine 0.92, Estim Creat Clear Calc 78.49, Est GFR (MDRD) Af Amer 104, Est GFR (MDRD) Non-Af 86, BUN/Creatinine Ratio 26.2 H, Glucose 114 H, Calcium 8.7 Micro: Microbiology 03/07/22 10:47 Nasal Secretion SARS-CoV-2 Antigen (Rapid) - Final Rhythm Strip Rhythm Strip: A-fib Rate: 55 Ectopy: PVC(s) Physical Exam Const alert, oriented x3, no apparent distress and well nourished Constitutional Narrative: Obese, older white male, sitting up in a chair at the bedside watching television, patient appears comfortable, no acute distress, nursing at bedside General Appearance: cooperative and well developed Orientation / Consciousness: awake, oriented to person, oriented to place and oriented to time HEENT normocephalic, head/scalp atraumatic, hearing grossly normal bilaterally and moist oral mucous membranes HEENT Narrative: Dentition is poor, Mallampati is 3, no thrush Resp normal respiratory effort, no retractions and no use of accessory muscles Resp Narrative: Diffusely diminished with coarse breath sounds bilaterally but remains on room air at this time Auscultation: Negative for crackles, rales, rhonchi or wheezes Cardio regular rhythm, S1 normal heart sound, S2 normal heart sound, no murmurs, no rub, no gallops, no clicks and no JVD Cardio Narrative: Bradycardia GI normal to inspection, nondistended, normoactive bowel sounds, soft to palpation, non-tender and non-distended GI Narrative: Large protuberant abdomen with no fluid wave Extremity Extremity Narrative: Trace bilateral lower extremity pitting edema, no cyanosis or clubbing Neuro oriented x3, moves all extremities and no focal motor deficits Speech: speech normal Assessment & Plan Assessment/Plan (1) Acute hyponatremia: (2) Acute exacerbation of COPD with asthma: (3) Bilateral edema of lower extremity: (4) Hypoxemia: (5) Primary adenocarcinoma of lower lobe of right lung: (6) Primary adenocarcinoma of upper lobe of left lung: (7) Thrombocytopenia: PLAN: Plan Acute on chronic hyponatremia -Patient was seen for this previously with an admission back in May 2021 but her issues with chronic hyponatremia -Has multiple risk factors including lung cancer, Depakote, chronic alcohol use -Baseline appears to be 130-135 -119 on admission -Remains between 125 and 126 -Stop Lasix and start salt tablets 1 g twice daily -Patient is relatively euvolemic for hospitalization -Nephrology consult pending -TSH is pending -Urine studies are not consistent with SIADH but appear to be somewhat mixed as his urine sodium is 22 with an elevated uric acid at 7.2 and slightly hypoosmolar -I suspect a primary contributor is his alcohol use and I have encouraged him to limit his drinking at least to no more than 1-2 beers daily--> he thought he could do 2-3 rather than 6-8 Acute exacerbation of COPD with hypoxia -Clinically much improved -Intermittent cough -Convert to oral prednisone 40 mg daily -Continue aerosols -Patient is now on room air -Continue home Pulmicort -Chest x-ray this morning looks like he is in volume overload -Continue IV Lasix -We will need ambulatory pulse ox prior to discharge -Discussed with the patient that he may need oxygen prior to discharge and he voices understanding and states he will be agreeable however he he does not prefer to be on oxygen at discharge if his avoidable -Had recent PFTs with an FEV1 of 50% -Patient continues to smoke Thrombocytopenia -Is acute but stable and trending up -May be related to acute processes Chronic lymphedema -Ezra bandage wraps -Improved edema with diuresis and wraps -Lasix on hold Adenocarcinoma of the lung -Patient has had adenocarcinoma of bilateral lungs -Has had a previous recent favorable PET scan -Follows at the [facility] Hypertension -Continue home losartan -Hold home Lasix CAD -Patient is on any medications at baseline -Monitor Pulmonary hypertension -Suspect secondary to lung disease with who group 3 -Hold Lasix -We will likely be able to restart soon but need to continue to monitor sodium Acute on chronic debility -PT/OT consultation -May require skilled placement at discharge depending on how he does clinically BPH -Continue Proscar -Continue Flomax Stage II pressure ulcer bilateral buttocks -Wound care -Geraldine to the area -Reduce pressure as able Chronic alcohol use -Patient drinks approximately 6 beers daily -Patient was placed on beer while hospitalized twice daily -Extensive discussion with the patient with regards to his alcohol use and that he needs to markedly limit this at home with abstinence being the best. He indicates that he will back off to 1-3 beers daily but he states he is not stopping Bipolar disorder -Stable -Continue home psychiatric medications DVT prophylaxis -Continue heparin Charges/Coding Visit Charges Inpatient E&M: 55454 Subs Hosp L2
[2022-03-11 12:30] LABS: Thyroid Stim Hormone (TSH) 1.32 uIU/mL (0.358-3.74)
--- NOTE | 2022-03-11 13:18 | PCM.CONS.R ---
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 currently appears to have hypervolemia. we dont have tolvaptan. ideally needs urea. thats not available either. will try salt tablets plus lasix. marlo Harvey HPI Consult Data Date of Consult: 03/11/22 HPI Narrative Reason for Consultation: Hyponatremia HPI Narrative: KELLY YOU, is a 71 M who presents to the hospital with dyspnea. being treated for CHF. renal consulted for hyponatremia. he is known to us from prior visits. 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 baseline sodium seems to be around 130 or so. c/p dyspnea on minimal exertion. some LE edema. no urinary complaints. [facility] Medical History Adult failure to thrive Alcohol dependence Anxiety Bipolar disorder BPH without obstruction/lower urinary tract symptoms CAD (coronary artery disease) Cancer Closed subcapital fracture of right femur COLD (chronic obstructive lung disease) COPD (chronic obstructive pulmonary disease) Decubitus ulcer of right buttock, stage 2 Dyspnea GERD (gastroesophageal reflux disease) High cholesterol History of COPD HLD (hyperlipidemia) HTN (hypertension) Irregular heartbeat Lymphedema Nodule of right lung Nondisp fx proximal phalanx lesser toe right foot w/routine heal Paroxysmal atrial fibrillation PVD (peripheral vascular disease) Smoker Stage I decubitus ulcer and pressure area Stenosis of esophagus Tobacco use disorder Home Medications cholecalciferol (vitamin D3) 25 mcg (1,000 unit) tablet 2,000 unit PO DAILY supplement 02/22/19 [History Last Taken 03/07/22] finasteride 5 mg tablet 5 mg PO QHS prostate 02/22/19 [History Last Taken 03/06/22] melatonin 3 mg tablet 3 mg PO QHS PRN sleep aide 02/22/19 [History Last Taken 05/19/21] tamsulosin 0.4 mg capsule 0.4 mg PO QHS urinary issues 02/22/19 [History Last Taken 03/06/22] omeprazole 20 mg capsule,delayed release 20 mg PO DAILY STOMACH 01/09/20 [History Last Taken 03/07/22] olanzapine 10 mg tablet 10 mg PO QHS mental health 07/06/20 [History Last Taken 03/06/22] albuterol sulfate 90 mcg/actuation aerosol inhaler 1 - 2 puff inhalation 4X/DAY PRN PRN Sob &/Or Wheezing #8.5 grams 01/04/21 [Rx Last Taken 05/20/21] budesonide 180 mcg/actuation breath activated powder inhaler (Pulmicort Flexhaler) 2 inh inhalation BID lungs 12/19/21 [History Last Taken 03/07/22] mineral oil 133 ml [place] DAILY PRN Constipation 12/19/21 [History Last Taken Unknown] baclofen 10 mg tablet 10 mg PO QHS PRN PRN muscle spasms 03/07/22 [History Last Taken Unknown] bisacodyl 10 mg rectal suppository 10 mg [place] DAILY PRN Constipation 03/07/22 [History Last Taken Unknown] diclofenac sodium 75 mg tablet,delayed release 75 mg PO BID PRN Pain 03/07/22 [History Last Taken Unknown] divalproex 250 mg tablet,extended release 24 hr (Depakote ER) 750 mg PO QHS mental health 03/07/22 [History Last Taken 03/06/22] folic acid 1 mg tablet 1 mg PO DAILY@0800 supplement 03/07/22 [History Last Taken 03/07/22] furosemide 20 mg tablet 20 mg PO DAILY water pill 03/07/22 [History Last Taken 03/07/22] hydrocodone-acetaminophen 5-325mg 5mg-325mg 1 tab PO Q6H PRN PRN Pain 03/07/22 [History Last Taken Unknown] losartan 50 mg tablet 50 mg PO DAILY bp 03/07/22 [History Last Taken 03/07/22] magnesium hydroxide 400 mg/5 mL oral suspension 400 mg PO DAILY PRN Constipation 03/07/22 [History Last Taken Unknown] multivitamin 1 tab PO DAILY supplement 03/07/22 [History Last Taken 03/07/22] thiamine HCl (vitamin B1) 100 mg tablet 100 mg PO DAILYCM supplement 03/07/22 [History Last Taken 03/07/22] Allergy/AdvReac Type Severity Reaction Status Date / Time venom-honey bee Allergy Severe Anaphylaxis Verified 03/07/22 10:37 [bee venom (honey bee)] Family History Father Prostate cancer Mother Lung cancer Surgical History History of heart artery stent History of heart artery stent History of hernia repair History of right hip replacement Social History household members: none Smoking Status: Current every day smoker tobacco type: cigarettes Tobacco: How many years used: 50 second hand exposure: No quit status: has quit before alcohol intake: current details: NON ALCOHOL BEER substance use type: does not use caffeine: Yes Type: coffee Number of servings: 2 luis/faith: None seatbelt use: always do you feel safe at home: Yes ROS ROS Narrative negative except above Physical Exam Narrative Alert awake oriented x 3 no obvious distress no pallor no icterus no JVD s1s2 no murmurs lungs clear abdomen soft no organomegaly ++ edema no cyanosis Lab / Micro Data Result Diagrams: 03/10/22 05:30 03/11/22 05:25 Labs: Laboratory Results - last 24 hr 03/11/22 05:25: Sodium 125 L, Potassium 4.2, Chloride 85 L, Carbon Dioxide 32.0, Anion Gap 8, BUN 24 H, Creatinine 0.92, Estim Creat Clear Calc 78.49, Est GFR (MDRD) Af Amer 104, Est GFR (MDRD) Non-Af 86, BUN/Creatinine Ratio 26.2 H, Glucose 114 H, Calcium 8.7 03/11/22 05:25: TSH 1.32 Rhythm Strip Rhythm Strip: A-fib Rate: 55 Ectopy: PVC(s)
[2022-03-11] MEDS: Furosemide 40 MG Tablet PO (14:07)
[2022-03-11] MEDS: Tamsulosin HCl 0.4 MG Capsule PO (16:31)
[2022-03-11] MEDS: 0.9% Saline Lock 10 ML Syringe IV (20:36)
[2022-03-11] MEDS: Divalproex (ER) 250 MG Tablet 750 MG PO (22:31)
[2022-03-11] MEDS: Finasteride 5 MG Tablet PO (22:32)
[2022-03-11] MEDS: OLANZapine 10 MG Tablet PO (22:44)
[2022-03-12] VITALS (12 sets, daily range): BP systolic 152–176; BP diastolic 64–73; PULSE 46–57; RESP 16–20; TEMP 36.3–36.8; O2SAT 89–99
[2022-03-12] MEDS: hydrALAZINE 20 MG/ML Vial 5 MG IV (02:31)
[2022-03-12] MEDS: 0.9% Saline Lock 10 ML Syringe IV (02:32)
[2022-03-12 04:21] LABS: Absolute Lymphocyte Count 1.28 X10^3/uL (0.83-4.51); Eosinophil# 0.02 X10^3/uL; Eosinophils% 0.2 % (0-5); Hematocrit 38.9 % (40-54); Hemoglobin 12.8 g/dL (13.0-16.5); Lymphocyte # 1.28 X10^3/ul (0.83-4.51); Lymphocyte % 13.7 % (19-41); Mean Corp Hgb Conc 32.9 g/dL (32-36); Mean Corpuscular Hgb 31.8 pg (27.0-32.0); Mean Corpuscular Volume 96.5 fL (80-94); Mean Platelet Vol. 9.8 fl (6.2-12.0); Monocyte# 0.97 X10^3/uL; Monocyte% 10.4 % (0-10); NRBC Flagged by Analyzer 0 % (0-5); Neutrophil # 7.01 X10^3/uL (2.7-7.7); Neutrophil % 75.3 % (47-70); Platelet Count 115 K/mm3 (150-450); RBC Distribution Width CV 15.8 % (11.6-14.6); RBC Distribution Width SD 56.5 fl (35.1-43.9); Red Blood Count 4.03 M/mm3 (4.6-6.2); White Blood Count 9.3 K/mm3 (4.4-11.0)
[2022-03-12] MEDS: HYDROcodone Bitartrate/Apap 5/325 Tablet PO ×2 (04:39→11:23)
[2022-03-12 05:27] LABS: Anion Gap 6 (5-15); BUN 25 mg/dL (7-18); BUN/Creat Ratio 28.7 RATIO (10-20); Calcium,Total 8.3 mg/dL (8.5-10.1); Chloride 86 mmol/L (98-107); Creatinine, Serum 0.87 mg/dL (0.70-1.30); EST Glomerular Filtration Rate 91 mL/min (>60); Est Glom Filt Rate - Afr Amer 110 mL/min (>60); Glucose 122 mg/dL (74-106); Potassium 4.3 mmol/L (3.5-5.1); Sodium Level 125 mmol/L (136-145)
[2022-03-12] MEDS: Sodium Chloride 1 GM Tablet PO (05:32)
[2022-03-12] MEDS: Ipratropium/Albuterol Sulfate 3 ML AMPUL.NEB INHALATION ×2 (07:01→12:48)
[2022-03-12] MEDS: predniSONE 20 MG Tablet 40 MG PO (08:06)
[2022-03-12] MEDS: Folic Acid 1 MG Tablet PO (08:06)
[2022-03-12] MEDS: Thiamine Hydrochloride 100 MG Tablet PO (08:07)
[2022-03-12] MEDS: Losartan Potassium 50 MG Tablet PO (08:08)
[2022-03-12] MEDS: Heparin Injection (Vial) 5,000 UNIT/ML VIAL 5000 UNIT SC (08:08)
[2022-03-12] MEDS: Furosemide 40 MG Tablet PO (08:09)
[2022-03-12] MEDS: Pantoprazole Sodium 20 MG Tablet PO (08:09)
[2022-03-12 10:01] LABS: Anion Gap 9 (5-15); BUN 25 mg/dL (7-18); BUN/Creat Ratio 24.5 RATIO (10-20); Chloride 88 mmol/L (98-107); Creatinine, Serum 1.02 mg/dL (0.70-1.30); EST Glomerular Filtration Rate 76 mL/min (>60); Est Glom Filt Rate - Afr Amer 92 mL/min (>60); Glucose 131 mg/dL (74-106); Potassium 4.1 mmol/L (3.5-5.1); Sodium Level 129 mmol/L (136-145)
--- NOTE | 2022-03-12 10:56 | CASEMGMT ---
Per hSannon GAMBLE, pt does not qualify for home oxygen at discharge. [facility] aware that pt to d/c home today and SOC will now be 03/13/22. Pt aware of all, voices understanding and voices no further questions/concerns/needs. Alberta GAMBLE CM
[2022-03-12] MEDS: Diclofenac 75 MG Tablet PO (11:24)
--- NOTE | 2022-03-12 11:43 | PCM.DC.SUM ---
Providers Date of Admission: 03/07/22 Date of Discharge: 03/12/22 Primary Care Physician: Dr. Inocente Nichols MD Consultations 03/11/22 07:06 Consult: Nephrology Routine Consulting Provider: Sandeep Nava Reason for Consult: persistant hyponatremia-acute on chronic EMERGENT Consult: No MD Notified: Yes Date Notified: 03/11/22 Time Notified: 08:05 Method of Notification: Answering Service Reason For Visit: HYPONATREMIA, COPD EXAC, LE EDEMA, PAD Diagnosis Discharge Diagnosis (1) Acute hyponatremia: Status: Acute Code(s): E87.1 - Hypo-osmolality and hyponatremia Plan Acute on chronic hyponatremia -Patient was seen for this previously with an admission back in May 2021 but her issues with chronic hyponatremia -Has multiple risk factors including lung cancer, Depakote, chronic alcohol use -Baseline appears to be 130-135 -119 on admission -Remains between 125 and 126 -Stop Lasix and start salt tablets 1 g twice daily -Patient is relatively euvolemic for hospitalization -Nephrology consult pending -TSH is pending -Urine studies are not consistent with SIADH but appear to be somewhat mixed as his urine sodium is 22 with an elevated uric acid at 7.2 and slightly hypoosmolar -I suspect a primary contributor is his alcohol use and I have encouraged him to limit his drinking at least to no more than 1-2 beers daily--> he thought he could do 2-3 rather than 6-8 Acute exacerbation of COPD with hypoxia -Clinically much improved -Intermittent cough -Convert to oral prednisone 40 mg daily -Continue aerosols -Patient is now on room air -Continue home Pulmicort -Chest x-ray this morning looks like he is in volume overload -Continue IV Lasix -We will need ambulatory pulse ox prior to discharge -Discussed with the patient that he may need oxygen prior to discharge and he voices understanding and states he will be agreeable however he he does not prefer to be on oxygen at discharge if his avoidable -Had recent PFTs with an FEV1 of 50% -Patient continues to smoke Thrombocytopenia -Is acute but stable and trending up -May be related to acute processes Chronic lymphedema -Ezra bandage wraps -Improved edema with diuresis and wraps -Lasix on hold Adenocarcinoma of the lung -Patient has had adenocarcinoma of bilateral lungs -Has had a previous recent favorable PET scan -Follows at the [facility] Hypertension -Continue home losartan -Hold home Lasix CAD -Patient is on any medications at baseline -Monitor Pulmonary hypertension -Suspect secondary to lung disease with who group 3 -Hold Lasix -We will likely be able to restart soon but need to continue to monitor sodium Acute on chronic debility -PT/OT consultation -May require skilled placement at discharge depending on how he does clinically BPH -Continue Proscar -Continue Flomax Stage II pressure ulcer bilateral buttocks -Wound care -Geraldine to the area -Reduce pressure as able Chronic alcohol use -Patient drinks approximately 6 beers daily -Patient was placed on beer while hospitalized twice daily -Extensive discussion with the patient with regards to his alcohol use and that he needs to markedly limit this at home with abstinence being the best. He indicates that he will back off to 1-3 beers daily but he states he is not stopping Bipolar disorder -Stable -Continue home psychiatric medications DVT prophylaxis -Continue heparin Medications at Discharge Home Medications cholecalciferol (vitamin D3) 25 mcg (1,000 unit) tablet 2,000 unit PO DAILY supplement 02/22/19 finasteride 5 mg tablet 5 mg PO QHS prostate 02/22/19 melatonin 3 mg tablet 3 mg PO QHS PRN sleep aide 02/22/19 tamsulosin 0.4 mg capsule 0.4 mg PO QHS urinary issues 02/22/19 omeprazole 20 mg capsule,delayed release 20 mg PO DAILY STOMACH 01/09/20 olanzapine 10 mg tablet 10 mg PO QHS mental health 07/06/20 albuterol sulfate 90 mcg/actuation aerosol inhaler 1 - 2 puff inhalation 4X/DAY PRN PRN Sob &/Or Wheezing #8.5 grams 01/04/21 budesonide 180 mcg/actuation breath activated powder inhaler (Pulmicort Flexhaler) 2 inh inhalation BID lungs 12/19/21 mineral oil 133 ml [place] DAILY PRN Constipation 12/19/21 baclofen 10 mg tablet 10 mg PO QHS PRN PRN muscle spasms 03/07/22 bisacodyl 10 mg rectal suppository 10 mg [place] DAILY PRN Constipation 03/07/22 diclofenac sodium 75 mg tablet,delayed release 75 mg PO BID PRN Pain 03/07/22 divalproex 250 mg tablet,extended release 24 hr (Depakote ER) 750 mg PO QHS mental health 03/07/22 folic acid 1 mg tablet 1 mg PO DAILY@0800 supplement 03/07/22 hydrocodone-acetaminophen 5-325mg 5mg-325mg 1 tab PO Q6H PRN PRN Pain 03/07/22 losartan 50 mg tablet 50 mg PO DAILY bp 03/07/22 magnesium hydroxide 400 mg/5 mL oral suspension 400 mg PO DAILY PRN Constipation 03/07/22 multivitamin 1 tab PO DAILY supplement 03/07/22 thiamine HCl (vitamin B1) 100 mg tablet 100 mg PO DAILYCM supplement 03/07/22 furosemide 40 mg tablet 40 mg PO DAILY #30 tabs 03/12/22 prednisone 10 mg tablet 10 mg PO DAILY #32 tabs 03/12/22 sodium chloride 1,000 mg soluble tablet 1,000 mg PO TID #90 tabs 03/12/22 Hospital Course Operations None Procedures - (Chest x-ray x2) Summary of Care Provided Minutes Spent on Discharge: 38 Hospital Course: Mr. Damian is a 68-year-old white male who presents emergency department at [facility] on 03/07/2022 with weakness and general debility. The patient reports that it had been worsening over the last several days prior to admission and he reported that his legs appear discolored but denied any specific discomfort. He has home care at baseline for several hours a day. Work-up in the emergency department revealed an overall unremarkable CBC other than some mild thrombocytopenia which was greater than 100,000 for his entire hospitalization. But, his chemistry panel showed marked hyponatremia with a sodium of 119, chloride of 81 and normal renal function. His BNP was 340. His chest x-ray showed cardiomegaly with increased linear markings at the lung bases suggestive of bibasilar atelectasis/scarring. He was placed on 2 L of oxygen the emergency department however his oxygen saturations were above 90% for his entire emergency department stay. He had been seen previously for hyponatremia and thought was that this was multifactorial from chronic alcohol use, dehydration, and possibly SIADH. The patient was placed on IV fluids and his sodium did trend up to 125. He did develop some wheezing and has known COPD as well as heart failure with preserved ejection fraction. We suspect it was combination of a COPD flare and volume overload from the IV fluids. His IV fluids were discontinued he was started on Lasix. Prior to this urine studies and serum and urine osmolalities were obtained. This was less helpful given the fact that he had been given IV fluids however his urine sodium was found to be 22 and he was slightly hypoosmolar with regards to his serum osmolality giving a combined picture. His uric acid was 7.2 which leans away from an SIADH diagnosis. With Lasix his sodium stayed in the 1 25-1 26 range. We started salt tablets and consulted nephrology. They agreed with the initiation of salt tablets but wanted to continue Lasix at 40 mg daily. After this was initiated his sodium improved to 129. With regards to his COPD flare he was placed on steroids and responded well. An ambulatory pulse ox was performed prior to discharge and he needs no oxygen at rest or with ambulation. He was seen by physical therapy and Occupational Therapy services during his hospital course and they recommend discharge to skilled facility however the patient was adamant that he was not going to a skilled facility but was agreeable to continued home health care at home. He was discharged home in stable condition with new prescriptions for salt tablets 1 g 3 times daily and 40 mg of p.o. Lasix daily. We also sent him on a prednisone taper. He states he has a follow-up CAT scan for his lung cancer coming up in April and we have encouraged follow-up for this. He is to follow-up with his primary care physician in 1 to 2 weeks and an appointment will be made with Dr. Nava from nephrology for follow-up with regards to his hyponatremia. He has been strongly encouraged to abstain from alcohol. Discharge diagnoses: Acute on chronic hyponatremia-resolved Acute exacerbation of COPD-resolving Acute decompensated heart failure with preserved ejection fraction-resolved Hypoxia-resolved Thrombocytopenia Chronic lymphedema Adenocarcinoma of the lung Hypertension CAD Pulmonary hypertension Chronic debility BPH Stage II pressure ulcer bilateral buttocks Chronic alcohol use Bipolar disorder Physical Exam Const alert, oriented x3, no apparent distress and well nourished Constitutional Narrative: Obese, older white male, sitting up in a chair at the bedside watching television, patient appears comfortable, no acute distress General Appearance: cooperative, comfortable, well kempt and well developed Orientation / Consciousness: awake, oriented to person, oriented to place and oriented to time HEENT normocephalic, head/scalp atraumatic and moist oral mucous membranes HEENT Narrative: Moderate hearing loss, dentition is poor, Mallampati is 3 Eyes PERRL, EOMs intact bilaterally and conjunctivae normal Neck no lymphadenopathy, supple, no JVD and thyroid normal General: trachea midline Resp normal respiratory effort, no retractions and no use of accessory muscles Resp Narrative: Diffusely diminished with coarse breath sounds bilaterally but remains on room air at this time Auscultation: Negative for crackles, rales, rhonchi or wheezes Cardio regular rhythm, S1 normal heart sound, S2 normal heart sound, no murmurs, no rub, no gallops, no clicks and no JVD Cardio Narrative: Bradycardia-mild GI normal to inspection, nondistended, normoactive bowel sounds, soft to palpation, non-tender and non-distended GI Narrative: Large protuberant abdomen with no fluid wave Extremity Extremity Narrative: Trace bilateral lower extremity pitting edema, no cyanosis or clubbing, Ezra bandages in place Skin skin turgor normal and no jaundice Skin Narrative: Patient has reddened areas on the mid buttocks near the cleft of the buttocks bilaterally, there is a small open area on the left side, these areas are approximately 3 to 4 cm in diameter. The open area on the left buttocks is approximately half centimeter in diameter. There are stasis dermatitis changes which are severe over both lower legs-improved with Ezra bandages and fluid removal Neuro oriented x3, CN's II-XII intact bilaterally, moves all extremities and no focal motor deficits Neuro Narrative: Moderate generalized weakness Sensorium / Orientation: awake, alert, oriented to person, oriented to place and oriented to time Speech: speech normal Psych affect normal Psych Narrative: Appropriately interactive Weight / BMI Weight Weight: 123.5 kg Body Mass Index (BMI) 35.8 ABG / Lab / Microbiology Data Result Diagrams: 03/12/22 04:04 03/12/22 09:29 Laboratory: Laboratory Results - last 24 hr 03/11/22 05:25: TSH 1.32 03/12/22 04:04: WBC 9.3, RBC 4.03 L, Hgb 12.8 L, Hct 38.9 L, MCV 96.5 H, MCH 31.8, MCHC 32.9, RDW Std Deviation 56.5 H, RDW Coeff of Fredi 15.8 H, Plt Count 115 L, MPV 9.8, Immature Gran % (Auto) 0.400, Neut % (Auto) 75.3 H, Lymph % (Auto) 13.7 L, [place] % (Auto) 10.4 H, Eos % (Auto) 0.2, Baso % (Auto) 0.0, Absolute Neuts (auto) 7.0, Absolute Lymphs (auto) 1.28, Nucleated RBC % 0 03/12/22 04:04: Sodium 125 L, Potassium 4.3, Chloride 86 L, Carbon Dioxide 33.0 H, Anion Gap 6, BUN 25 H, Creatinine 0.87, Estim Creat Clear Calc 83.00, Est GFR (MDRD) Af Amer 110, Est GFR (MDRD) Non-Af 91, BUN/Creatinine Ratio 28.7 H, Glucose 122 H, Calcium 8.3 L 03/12/22 09:29: Sodium 129 L, Potassium 4.1, Chloride 88 L, Carbon Dioxide 32.0, Anion Gap 9, BUN 25 H, Creatinine 1.02, Estim Creat Clear Calc 70.80, Est GFR (MDRD) Af Amer 92, Est GFR (MDRD) Non-Af 76, BUN/Creatinine Ratio 24.5 H, Glucose 131 H, Calcium 9.0 Microbiology: Microbiology 03/07/22 10:47 Nasal Secretion SARS-CoV-2 Antigen (Rapid) - Final D/C Instructions Discharge Diet: Low fat / Low cholesterol (avoid alcohol) and 8 Cup Fluid Restriction Discharge Activity: Return to Normal Activity Meaningful Use Info Meaningful Use Diagnoses (Choose all that apply): None applicable Discharge Plan Admission Admit Date/Time: 03/07/22 12:38 Primary Reason for Your Visit: weakness and debility Attending Provider: Danisha Harvey Primary Care Provider: Inocente Nichols Consulting Providers: Arsh Medina ; Sandeep Nava Discharge Orders/Prescriptions Prescriptions: New furosemide 40 mg Tablet 40 mg PO DAILY Qty: 30 0RF sodium chloride 1,000 mg Tablet,Soluble 1,000 mg PO TID Qty: 90 0RF prednisone 10 mg tablet 10 mg PO DAILY Qty: 32 0RF Rx Instructions: 4 tablets x 2 days, 3 tablets x 4 days, 2 tablets x 4 days, 1 tablet x 4 days Continued olanzapine 10 mg tablet 10 mg PO QHS albuterol sulfate 90 mcg/actuation HFA aerosol inhaler 1 - 2 puff inhalation 4X/DAY PRN PRN (Reason: Sob &/Or Wheezing) Qty: 8.5 5RF cholecalciferol (vitamin D3) 1,000 UNIT tablet 2,000 unit PO DAILY melatonin 3 MG tablet 3 mg PO QHS PRN (Reason: sleep aide) tamsulosin 0.4 MG capsule 0.4 mg PO QHS finasteride 5 MG tablet 5 mg PO QHS omeprazole 20 MG capsule 20 mg PO DAILY mineral oil Enema 133 ml OH DAILY PRN (Reason: Constipation) Pulmicort Flexhaler 180 mcg/actuation Aerosol Powdr Breath Activated 2 inh INHALATION BID baclofen 10 mg tablet 10 mg PO QHS PRN PRN (Reason: muscle spasms) Label Comments: TAKE 1 TABLET BY MOUTH AT BEDTIME NEEDED diclofenac sodium 75 mg Tablet,Delayed Release (Dr/Ec) 75 mg PO BID PRN (Reason: Pain) divalproex [Depakote ER] 250 mg Tablet Extended Release 24 Hr 750 mg PO QHS folic acid 1 MG tablet 1 mg PO DAILY@0800 multivitamin Tablet 1 tab PO DAILY losartan 50 mg tablet 50 mg PO DAILY Label Comments: TAKE 1 TABLET BY MOUTH EVERY DAY magnesium hydroxide 400 mg/5 mL Suspension 400 mg PO DAILY PRN (Reason: Constipation) bisacodyl 10 mg Suppository 10 mg OH DAILY PRN (Reason: Constipation) thiamine HCl (vitamin B1) 100 MG tablet 100 mg PO DAILYCM hydrocodone-acetaminophen 5-325 mg tablet 1 tab PO Q6H PRN PRN (Reason: Pain) Label Comments: TAKE 1 TABLET BY MOUTH EVERY 6 HOURS NEEDED for BREAKTHROUGH PAIN. do not exceed FOUR TABLETS in 24 hour period Discontinued furosemide 20 mg tablet 20 mg PO DAILY Label Comments: Take 1 tablet by mouth once daily. Referrals / Follow Up: Sandeep Nava MD [Med Staff - Consulting] - See Referral Note (office will call you to make appt he has an office in [place]) Inocente Nichols MD [Primary Care Provider] - Within 2 Weeks Disposition Disposition (needs filled in before D/C Order can be placed): Home Health Service Charges/Coding Visit Charges Inpatient E&M: 62281 Disch Hosp
--- NOTE | 2022-03-12 12:04 | CHAPLAIN ---
Type of Pastoral Visit ___ Initial Visit _x__ Follow-up Visit ___ On-call Visit ___ General Patient Visit ___ Spiritual Assessment ___ Family Conference ___ Bereavement ___ Rapid Response ___ Code Blue ___ Other (describe below) Pastoral Care Referral From _x__ Patient ___ Family ___ Nurse ___ Physician ___ Painter Barrel ___ Picking Table Worker ___ Other (describe below) Sacrament/Intervention _x__ Active listening ___ Anointing ___ Anglican ___ Bereavement ___ Communion ___ Ruth exploration ___ ___ Life review _x__ Prayer ___ Reconciliation ___ Sacrament of Sick ___ Supportive presence ___ Wedding ___ Other (describe below) Pastoral Comments follow up to patient who was seen briefly when he was admitted; pt is sitting in chair and says he is doing okay; pt says he is waiting for his RN to bring his meds; pt says he has no concerns and is hoping to go home today; pt welcomes the visit and prayer
--- NOTE | 2022-03-12 13:48 | PHA.DC.MC ---
Pharmacy Service has performed discharge medication reconciliation and counseling for this patient. 1. SODIUM CHLORIDE 1GM PO TID 2. PREDNISONE TAPER 40MG PO DAILY X 4 DAYS, 30MG X 4 DAYS, 20MG X 4 DAYS, 10MG X 4 DAYS The patient's discharge medication list was reviewed for discrepancies and discrepancies were resolved. Home Medications cholecalciferol (vitamin D3) 25 mcg (1,000 unit) tablet 2,000 unit PO DAILY supplement 02/22/19 finasteride 5 mg tablet 5 mg PO QHS prostate 02/22/19 melatonin 3 mg tablet 3 mg PO QHS PRN sleep aide 02/22/19 tamsulosin 0.4 mg capsule 0.4 mg PO QHS urinary issues 02/22/19 omeprazole 20 mg capsule,delayed release 20 mg PO DAILY STOMACH 01/09/20 olanzapine 10 mg tablet 10 mg PO QHS mental health 07/06/20 albuterol sulfate 90 mcg/actuation aerosol inhaler 1 - 2 puff inhalation 4X/DAY PRN PRN Sob &/Or Wheezing #8.5 grams 01/04/21 budesonide 180 mcg/actuation breath activated powder inhaler (Pulmicort Flexhaler) 2 inh inhalation BID lungs 12/19/21 mineral oil 133 ml [place] DAILY PRN Constipation 12/19/21 baclofen 10 mg tablet 10 mg PO QHS PRN PRN muscle spasms 03/07/22 bisacodyl 10 mg rectal suppository 10 mg [place] DAILY PRN Constipation 03/07/22 diclofenac sodium 75 mg tablet,delayed release 75 mg PO BID PRN Pain 03/07/22 divalproex 250 mg tablet,extended release 24 hr (Depakote ER) 750 mg PO QHS mental health 03/07/22 folic acid 1 mg tablet 1 mg PO DAILY@0800 supplement 03/07/22 hydrocodone-acetaminophen 5-325mg 5mg-325mg 1 tab PO Q6H PRN PRN Pain 03/07/22 losartan 50 mg tablet 50 mg PO DAILY bp 03/07/22 magnesium hydroxide 400 mg/5 mL oral suspension 400 mg PO DAILY PRN Constipation 03/07/22 multivitamin 1 tab PO DAILY supplement 03/07/22 thiamine HCl (vitamin B1) 100 mg tablet 100 mg PO DAILYCM supplement 03/07/22 furosemide 40 mg tablet 40 mg PO DAILY #30 tabs 03/12/22 prednisone 10 mg tablet 10 mg PO DAILY #32 tabs 03/12/22 sodium chloride 1,000 mg soluble tablet 1,000 mg PO TID #90 tabs 03/12/22 The patient was counseled on the following discharge medications and changes in medications for homegoing were reviewed. The Reason for Use, instructions for use, and potential side effects were reviewed for all new medications. The patient's questions regarding all of their medications were answered. The patient was able to verbally demonstrate an understanding of their discharge medications. Patient counseled by retail pharmacy managerSeverino.
--- NOTE | 2022-03-12 14:40 | NURSING ---
All documentation and medication administration completed by Josefa Fontaine RN done under the supervision of this RN.
== END 2022-03-12 14:04 | disposition home health service (06) | DRG 641 ==
LOC: ED 11:55 → PCU 12:41
PROVIDERS: Admitting Provider Internal Medicine; Emergency Provider Emergency Medicine; PCP Internal Medicine; Visit Provider Internal Medicine
DX: E87.1 Hypo-osmolality and hyponatremia (principal); J44.1 Chronic obstructive pulmonary disease with (acute) exacerbation; C34.12 Malignant neoplasm of upper lobe, left bronchus or lung; C34.31 Malignant neoplasm of lower lobe, right bronchus or lung; I27.20 Pulmonary hypertension, unspecified; L89.312 Pressure ulcer of right buttock, stage 2; D69.6 Thrombocytopenia, unspecified; L89.322 Pressure ulcer of left buttock, stage 2; E86.0 Dehydration; I73.9 Peripheral vascular disease, unspecified; I48.0 Paroxysmal atrial fibrillation; F31.9 Bipolar disorder, unspecified; F10.20 Alcohol dependence, uncomplicated; I89.0 Lymphedema, not elsewhere classified; I10 Essential (primary) hypertension; E78.5 Hyperlipidemia, unspecified; E78.00 Pure hypercholesterolemia, unspecified; I25.10 Atherosclerotic heart disease of native coronary artery without angina pectoris; F17.210 Nicotine dependence, cigarettes, uncomplicated; Z79.01 Long term (current) use of anticoagulants; Z80.42 Family history of malignant neoplasm of prostate; Z79.51 Long term (current) use of inhaled steroids; Z80.1 Family history of malignant neoplasm of trachea, bronchus and lung; N40.0 Benign prostatic hyperplasia without lower urinary tract symptoms; R53.81 Other malaise
CPT/HCPCS: 36415; 36600; 71045; 80048; 82803; 83605; 83735; 83880; 83930; 83935; 84300; 84443; 84484; 84550; 85025; 87811; 93005; 94640; 97110; 97162; 97166; 97530; 97535; 97802; 99251; 99284; J7030; A4216; G0463; J1940

== ENCOUNTER 2022-05-22 07:59 | Outpatient (CLI) | payer MEDICARE, MEDICAID, SELFPAY ==
[2022-05-22] VITALS (11 sets, daily range): BP systolic 141–178; BP diastolic 59–72; PULSE 49–59; RESP 13–22; TEMP 36.9; O2SAT 93–100; BMI 31.8
--- NOTE | 2022-05-22 | IMM_PTH ---
PATIENT: KELLY YOU LOC: CT U#:[id number] AGE/SX: 72/M ROOM: RE05/22/[address]: Dr. Nghia Harvey MD : 1950 BED: DIS: 05/22/2022 SPEC #: [id number] RECD: 05/23/22 13:26 STATUS: CANDIDO REJamar #: [id number] CLARISA: 05/22/22 00:[address]: Nghia Harvey DEPT: IMMUNOHISTOCHEMISTRY RECD BY: Ginny Carmichael ENTERED: 05/23/22 13:27 SP TYPE: IMMUNO OTHR DR: Dr. Inocente Nichols MD Tissues: Left lower lobe of lung, NOS Procedures: Synapto (add) NAPSIN A (add) CD56 (add) CHROMO (add) CK7 (add) P53 (add) TTF1 (add) Pankeratin (initial) NSE (add) PHYSICIAN & INSTITUTION [place] [id number] SPECIMEN INFORMATION: Tissue Source: Left lower lobe of lung Clinical Info: Left lung nodule Specimen Number: [id number] CPT code: 64566, 78921 x8 METHODOLOGY: Deparaffinized sections of prefer/formalin-fixed tissue or PAP/DQ stained slides are incubated with monoclonal/polyclonal antibodies/oligonucleotide probes. Localization is made via biotin free immunoperoxidase method. Appropriate controls are performed and reacted as expected. Results on target cell population are indicated in the following table: RESULTS: ANTIBODY / CLONE RESULT AE1-3 (AE1/AE3/PCK26) positive CK7 (OV-TL12/30) positive TTF-1 (8G7G3/1) positive Napsin A (Rabbit Polyclonal) positive P53 (DO-7) negative CD56 (123C3.D5) negative Chromo (LK2H10) negative NSE Neuron Specific Enolase negative Synapto (polyclonal) negative These tests were developed and their performance characteristics determined by [facility]. They may not have been cleared or approved by the U.S. Food and Drug Administration. The FDA has determined that such clearance or approval is not necessary. The above immunohistochemical/dualISH markers are ordered and reviewed by the Pathologist. INTERPRETATION: Left lower lobe of lung, CT-guided core biopsy: Atypical epithelial cells present. AM:frankie 05/27/2022 Case has been reviewed in consultation with Dr. Lara who concurs with the above diagnosis. IDC:[email or web address]
--- NOTE | 2022-05-22 08:07 | RAD_ITS ---
STUDY: X-RAY CHEST REASON FOR EXAM: Male, 72 years old. Post biopsy -- 2 hours post lung biopsy TECHNIQUE: AP inspiration and expiration views. COMPARISON: Comparison is made with prior study done earlier today. FINDINGS: There is no evidence of pneumothorax on the two-hour delayed post left lung biopsy radiographs. RAD/Chest Insp/Exp 2 View IMPRESSION: No evidence of pneumothorax on the 2 hour delayed post left lung biopsy radiographs. Electronically Signed: Emiliano Floyd MD at 10:58 EDT ,
--- NOTE | 2022-05-22 08:17 | CT_ITS ---
PROCEDURE: CT GUIDED CORE NEEDLE BIOPSY OF A left lower lobe LUNG LESION INDICATION: Male, 72 years old. Left lower lobe lung nodule. PHYSICIAN: Dr. YESSI Meyer CONSENT: Written informed consent was obtained having explained the risks, benefits and alternatives in detail with the patient who accepted the risks and agreed to proceed. Laboratory review and clinical assessment was performed. CONSCIOUS SEDATION PROTOCOL: The Drugs used were: 2 mg Versed, IV., and 50 mcg Fentanyl, IV. The sedation time was: 19 minutes. Conscious sedation was started at 9:17 AM and terminated at 9:36 AM. The conscious sedation protocol was independently monitored. RADIATION DOSAGE (If Supplied By Facility): CTDIvol = ( 27 ) mGy, DLP = ( 770.93 ) mGycm Individualized dose optimization techniques were used for this CT. TECHNIQUE: The patient was placed in the prone position. A noncontrast CT was performed to localize the lesion in the left lower lobe . The skin surface was prepped and draped in a sterile fashion. 1% lidocaine was used for local anesthesia. Using CT guidance, a 20-gauge coaxial biopsy device was advanced to the periphery of the lesion. A total of 6 core specimens were obtained. The specimens were placed in a formalin solution. A post procedure CT demonstrated no adverse sequelae or pneumothorax. The patient tolerated the procedure well without adverse event. A negative biopsy does not exclude malignancy. Further imaging or clinical followup based on patient condition and degree of clinical suspicion for malignancy. Suggest rebiopsy, if biopsy results do not match with clinical scenario. CT/Biopsy/Inj or Needle Placement IMPRESSION: 1. CT directed core needle biopsy of the left lower lobe lung nodule using CT image guidance with image documentation as described. Pathology results are pending. 2. Conscious Sedation protocol utilized with independent monitoring. Electronically Signed: Emiliano Floyd MD at 10:15 EDT ,
[2022-05-22 08:19] LABS: Platelet Count 268 K/mm3 (150-450)
[2022-05-22 08:31] LABS: International Normalized Ratio 1.1; Prothrombin Time (Protime)PT. 13.4 SECONDS (11.7-14.9)
[2022-05-22 08:32] LABS: Partial Thromboplast Time 29.4 Seconds (24.1-36.2)
[2022-05-22] MEDS: 0.9% Saline Lock 10 ML Syringe IV (08:50)
[2022-05-22] MEDS: fentaNYL 100 MCG/2 ML Ampul IV (09:17)
[2022-05-22] MEDS: Midazolam 2 MG/2 ML Syringe IV (09:17)
[2022-05-22] MEDS: Lidocaine 2% (20 ml mdv) 20 ML Vial INFILT (09:20)
--- NOTE | 2022-05-22 09:30 | ASPIGT_PTH ---
PATIENT: KELLY YOU LOC: [place] U#:[id number] AGE/SX: 72/M ROOM: RE05/22/[address]: Dr. Nghia Harvey MD : 1950 BED: DIS: 05/22/2022 SPEC #: [id number] RECD: 05/22/22 10:00 STATUS: CANDIDO JAJA #: [id number] CLARISA: 05/22/22 09:[address]: Nghia Harvey DEPT: SURGICAL PATHOLOGY RECD BY: Alba Marquez ENTERED: 05/22/22 10:00 SP TYPE: ASP RAD OTHR DR: Dr. Inocente Nichols MD Tissues: Lung, NOS Procedures: FNA Specimen Adequacy Special Stain Group II Surgery Specimen Level IV Imprint (control) HEADER OPERATION: CT-guided lung biopsy PRE-OP DIAGNOSIS: Left lung nodule TISSUE SUBMITTED: Left lower lung 20-gauge cores x5 MICROSCOPIC DIAGNOSIS Left lower lobe lung mass, CT-guided biopsy: Atypical epithelial cells present. See comment. AM:frankie 05/27/2022 COMMENT The specimen is evaluated at the time of biopsy by Dr. West. Immediate Evaluation = Atypical epithelial cells suspicious for malignancy. Atypical epithelial cells suspicious for malignancy are identified in the specimen. Immunohistochemistry ([id number]) supports the above diagnosis. Case has been reviewed in consultation with Dr. Lara who concurs with the above diagnosis. IDC:[email or web address] MICROSCOPIC DESCRIPTION Slides are reviewed. GROSS DESCRIPTION Received in fixative is one container labeled with the patient's name and designated left lung. The specimen consists of multiple minute fragments of castro tissue that in aggregate measure <0.1 x <0.1 x <0.1 cm. The specimen is totally submitted in one cassette. / AM:frankie 05/22/2022 TC:? CPT: 56118, 05711
--- NOTE | 2022-05-22 09:45 | RAD_ITS ---
STUDY: X-RAY CHEST REASON FOR EXAM: Male, 72 years old. Post biopsy -- Immediately post lung biopsy TECHNIQUE: AP inspiration and expiration views. COMPARISON: Comparison is made with prior study 03/09/2022. FINDINGS: EKG electrodes are seen. No evidence of pneumothorax on the immediate post left lung biopsy radiographs. RAD/Chest Insp/Exp 2 View IMPRESSION: No evidence of pneumothorax on the immediate post left lung biopsy radiographs. Electronically Signed: Emiliano Floyd MD at 10:10 EDT ,
== END 2022-05-22 23:59 | disposition home or self-care (01) ==
PROVIDERS: PCP Internal Medicine; Referring Provider Radiology Radiation Oncology; Visit Provider Radiology Radiation Oncology
DX: R91.1 Solitary pulmonary nodule (principal); C34.92 Malignant neoplasm of unspecified part of left bronchus or lung; Z79.01 Long term (current) use of anticoagulants
CPT/HCPCS: 32408; 36415; 71046; 77012; 85049; 85610; 85730; 88172; 88305; 88313; 88341; 88342; 99156; J7050; A4216; C2613

== ENCOUNTER → 2022-06-02 | Outpatient (CLI) | payer MEDICARE, MEDICAID, SELFPAY ==
--- NOTE | 2022-06-02 18:51 | RAD_ITS ---
STUDY: X-RAY - LUMBAR SPINE REASON FOR EXAM: Male, 72 years old. Chronic lower back pain. TECHNIQUE: 2 view(s) of the lumbar spine were obtained. COMPARISON: None FINDINGS: There is straightening of the normal lumbar lordosis. There is no substantial scoliosis. There is a normal alignment of the vertebrae. There is multilevel endplate spondylosis of the lumbar vertebrae. Normal disc space heights. There is no evidence of acute fracture or loss of vertebral axial height. Mild distention of large and small bowel loops. Question ileus. There is atherosclerotic changes of the abdominal aorta without aneurysm. RAD/Lumbar Spine 2 or 3 Views IMPRESSION: 1. Degenerative changes of the spine, as detailed above. 2. Question ileus. Electronically Signed: Javier Stafford DO at 23:02 EST ,
--- NOTE | 2022-06-02 18:51 | RAD_ITS ---
STUDY: X-RAY - BILATERAL HIPS WITHOUT PELVIS REASON FOR EXAM: Male, 72 years old. BILATERAL HIP PAIN. TECHNIQUE: 2 views of the right hip, and 2 views of the left hip were obtained. COMPARISON: Abdomen, May 24, 2021. FINDINGS: Right Hip: Again seen is a right hip replacement. This articulates normally with the acetabulum. No evidence of fracture or loosening from the underlying bone. Left Hip: Normal left femoral head, neck, intertrochanteric region and visualized proximal femur. Normal left acetabulum. There is mild articular joint space narrowing of the left hip. There is no fracture, dislocation or destructive osseous pathology Normal bilateral superior and inferior pubic rami , ischial tuberosities and pubic symphysis. There are degenerative changes of the lumbar spine. Soft tissues appear grossly normal. RAD/Hips B/L min 2 views w/ Pelvis IMPRESSION: Stable right artificial hip. Mild degenerative changes of the left hip unchanged from prior exam. Electronically Signed: Javier Stafford DO at 23:05 EST ,
[2022-06-02 20:16] LABS: Amphetamine Urine VISTA NEGATIVE (<1000 ng/mL); Barbiturate Urine VISTA NEGATIVE (< 200 ng/mL); Benzodiazepine Urine VISTA NEGATIVE (< 200 ng/mL); Cocaine Urine VISTA NEGATIVE (< 300 ng/mL); Ecstacy Urine VISTA NEGATIVE (< 500 ng/mL); Methadone Urine VISTA NEGATIVE (< 300 ng/mL); PCP Urine VISTA NEGATIVE (< 25 ng/mL); THC Urine VISTA NEGATIVE (< 50 ng/mL); Vista UDS pH Range 7
== END | disposition home or self-care (01) ==
LOC: LABSPEC 18:14 → LAB 18:17
PROVIDERS: PCP Internal Medicine; Visit Provider Anesthesiology Pain Medicine
DX: F11.20 Opioid dependence, uncomplicated (principal); M54.50 Low back pain, unspecified; G89.29 Other chronic pain
CPT/HCPCS: 72100; 73521; 80307

== ENCOUNTER → 2022-06-18 | Outpatient (CLI) | payer MEDICARE, MEDICAID, SELFPAY ==
--- NOTE | 2022-06-18 10:30 | PET_ITS ---
EXAMINATION: FDG PET/CT ? INDICATIONS: 72-year-old male with a history of carcinoma of the lung, presenting for restaging examination. ? COMPARISON EXAMINATION: Prior FDG PET CT study dated 01/29/2022 ? INDEX LESION SIZE SUV INTERPRETATION PERSISTENT Right lower lung, more nodular ? 2.4 compared to 1.8, 01/29/2022 Quantitative criteria for viable neoplasm not fulfilled, sequential radiological investigation recommended ? NON-INDEX LESION ? ? ? NEW Interlobar lymph node ? 2.0 Quantitative criteria for viable neoplasm not fulfilled ? NEW Left upper and left lower lung field. ? 1.4, 1.3, respectively Quantitative criteria for viable neoplasm are not fulfilled ? ? TECHNIQUE: Following the intravenous administration of 12.42 mCi of F-18 deoxyglucose via the left hand, multiplanar image acquisitions of the neck, chest, abdomen and pelvis to the level of the midthigh, obtained at one-hour post radiopharmaceutical administration contemporaneously interpreted with FDG PET CT study dated 01/29/2022 reveal: ? SERUM GLUCOSE LEVEL:? 125 mg/dL? HEIGHT:?? 72 inches WEIGHT:?? 246 pounds ? FINDINGS: ? HEAD/NECK:? There is no evidence of abnormal increased glucose metabolism in the pharyngeal mucosal space, parapharyngeal space, oropharynx, bilateral-lateral and anterior neck, hypopharynx and distribution of the larynx. ? The visualized portion of the cerebral cortical-subcortical structures demonstrate symmetric and preserved glucose metabolism. ? CHEST:? There is an increase in FDG concentration defined in the right lateral lung field, right lower lobe, more nodular in presentation on the current examination. The current calculated maximum standard uptake value is 2.4 compared to 1.8 defined on the prior examination. The maximal axial diameter of the nodular component of the metabolic, morphologic abnormality is 31.6 mm. Facilitated uptake is noted adjacent to the right mainstem bronchus in the distribution of the interlobar lymph nodes involving lymph node station 11R with a calculated maximum standard uptake value of 2.0. Ill-defined radiopharmaceutical concentration noted in the left upper anterior lung zone demonstrates a calculated maximum standard uptake value of 1.4. There is prominent tracer concentration noted in the descending thoracic aorta consistent with activated leukocytes associated with atherosclerotic plaque formation.? There is subtle increased tracer uptake noted in the left lower posterolateral lung zone, left lower lobe with a calculated standard uptake value of 1.3. Quantitative criteria for viable neoplasm are not fulfilled. ? CT of the chest demonstrates the following anatomic characteristics: Atherosclerotic calcification is defined in the thoracic aorta without evidence of dilatation, aneurysm formation. Coronary artery calcification is observed. Interim development of a right hemithorax pleural effusion is noted without evidence of quantitatively significant enhanced FDG uptake. ? ABDOMEN/PELVIS:? Normal physiologic distribution of the radiopharmaceutical is identified in the hepatic (3.9/3.4) and splenic parenchyma, both renal units, urinary bladder, and visualized intestinal tract. ? CT of the abdomen and pelvis is remarkable for the following: Beam hardening artifact secondary to a right hip arthroplasty complicates evaluation of the lower pelvic CT acquisitions. Calcification is manifest in the region of the bilateral base of the prostate gland peripheral zone. A fat containing left inguinal hernia is noted. Atherosclerotic calcification is defined in the abdominal aorta without evidence of dilatation, aneurysm formation. Abdominal-pelvic arterial calcification is defined. Cholelithiasis is demonstrated. Cortical cyst formation is evident in the left kidney. Calcification is noted in the right renal unit. ? SKELETAL:? There is no evidence of quantitatively significant enhanced glucose metabolism on meticulous inspection of the appendicular and axial skeletal structures. Right hip arthroplasty is defined. ? Degenerative changes defined in the thoracic and lumbar spine demonstrate no evidence of increased glucose metabolism. A sclerotic density defined in the third lumbar vertebra is nonglucose avid. ? PET/PET/CT Tumor Base -Thigh Subs IMPRESSION: 1. NEGATIVE EXAMINATION. There is no definitive quantitative scintigraphic evidence of recurrent-viable neoplasm. 2. Persistent radiopharmaceutical concentration noted in the right lower lung field, right lower lobe more nodular in presentation, does not fulfill quantitative criteria for viable neoplasm with single point technique.? Metabolic, morphologic stability may be ensured in this location with repeat FDG PET CT imaging in 3 months, as clinically indicated. 3. Enhanced tracer uptake noted in the left upper and left lower lungs do not fulfill quantitative criteria for neoplastic infiltration. 4. Subtle increased radiopharmaceutical concentration noted in the interlobar lymph nodes to the right of midline to not fulfill quantitative criteria for malignant transformation. (Sheridan et al, Journal of Clinical Oncology, 16:2142, 1998). 5. Overall, compared to the prior FDG PET CT study dated 01/29/2022, there is current and continued absence of defined viable neoplastic disease. The persistently defined right lower lobe metabolic, morphologic abnormality warrants further short-term radiologic evaluation. ? Electronic Signature Petr Flores D.O. Accurate Quantification of SUVs for this report are calculated using the exclusive [employer]. (U.S. Patent No. 10, [id number]). Standardization and correction of the FDG SUV metric via [employer] technology allow for vendor non-specific objective quantitative examination comparison and optimization of the sensitivity and specificity of the FDG PET-CT examination. Electronically Signed: Petr Flores, at 22:41 EST ,
== END | disposition home or self-care (01) ==
LOC: ONC 10:23
PROVIDERS: PCP Internal Medicine
DX: C34.32 Malignant neoplasm of lower lobe, left bronchus or lung (principal)
CPT/HCPCS: 78815; A9552

== ENCOUNTER → 2022-07-07 | Outpatient (CLI) | payer MEDICARE, MEDICAID, SELFPAY ==
[2022-07-07 18:20] LABS: Amphetamine Urine VISTA NEGATIVE (<1000 ng/mL); Barbiturate Urine VISTA NEGATIVE (< 200 ng/mL); Benzodiazepine Urine VISTA NEGATIVE (< 200 ng/mL); Cocaine Urine VISTA NEGATIVE (< 300 ng/mL); Ecstacy Urine VISTA NEGATIVE (< 500 ng/mL); Methadone Urine VISTA NEGATIVE (< 300 ng/mL); PCP Urine VISTA NEGATIVE (< 25 ng/mL); THC Urine VISTA NEGATIVE (< 50 ng/mL); Vista UDS pH Range 7
== END | disposition home or self-care (01) ==
PROVIDERS: PCP Internal Medicine; Referring Provider Anesthesiology Pain Medicine; Visit Provider Anesthesiology Pain Medicine
DX: F11.20 Opioid dependence, uncomplicated (principal)
CPT/HCPCS: 80307

== ENCOUNTER → 2022-07-31 | Outpatient (CLI) | payer MEDICARE, MEDICAID, SELFPAY ==
--- NOTE | 2022-07-31 14:30 | US_ITS ---
STUDY: SUPERFICIAL ULTRASOUND - ASSESSMENT FOR RIGHT PLEURAL EFFUSION. REASON FOR EXAM: Male, 72 years old. PERSISTENT FLUID R LUNG BASE TECHNIQUE: A superficial ultrasound was performed with real-time and static zuluaga-scale imaging. COMPARISON: None. FINDINGS: Tiny right pleural effusion. Not enough fluid for safe thoracentesis. US/Chest IMPRESSION: Not enough fluid for safe thoracentesis. Electronically Signed: Emiliano Floyd MD at 15:01 EST ,
== END | disposition home or self-care (01) ==
PROVIDERS: PCP Internal Medicine; Referring Provider Internal Medicine; Visit Provider Internal Medicine
DX: J81.1 Chronic pulmonary edema (principal)
CPT/HCPCS: 76604

== ENCOUNTER → 2022-10-02 | Outpatient (CLI) | payer MEDICARE, MEDICAID, SELFPAY ==
--- NOTE | 2022-10-02 14:22 | ART_ITS ---
Reason For Study: LE Ulcers Procedure A bilateral lower extremity continuous wave Doppler with analog waveform analysis,segmental pressures,and ankle brachial indexes without exercise. Left Segmental Pressures Left brachial= 144mmHg. Left posterior tibial artery = 129mmHg. Left dorsalis pedis artery = 153mmHg. The left posterior tibial artery waveforms are biphasic. The left dorsalis pedis waveforms are biphasic. Right Segmental Pressures Right brachial= 138mmHg. Right posterior tibial artery = 131mmHg. Right dorsalis pedis artery = 152mmHg. The right posterior tibial artery waveforms are biphasic. The right dorsalis pedis waveforms are biphasic. Indices The right ankle brachial index by the posterior tibial artery is 0.91. The right ankle brachial index by the dorsalis pedis is 1.06. The left ankle brachial index by the posterior tibial artery is 0.90. The left ankle brachial index by the dorsalis pedis is 1.06. VL/Lower Ext Art Exam w/o Exercis Interpretation Summary Right CRISTIANA 1.06, normal. Doppler/PVR waveforms of the right leg normal at rest. Left CRISTIANA 1.06, normal. Doppler/PVR waveforms of the left leg normal at rest. Ordering Physician: Mandie Kelsey Referring Physician: Inocente Nichols M.D. Performed By: Kaiser Cota RVT
--- NOTE | 2022-10-02 14:22 | VDLE_ITS ---
Reason For Study: LEG SWELLING RIGHT LEFT CFV is compressible, spontaneous, competent CFV is compressible, spontaneous, competent, and demonstrates pulsatile venous flow. and demonstrates pulsatile venous flow. FV is compressible, spontaneous, competent FV is compressible, spontaneous, competent and demonstrates pulsatile venous flow. and demonstrates pulsatile venous flow. POP V is compressible, spontaneous, competent POP V is compressible, spontaneous, competent and demonstrates pulsatile venous flow. and demonstrates pulsatile venous flow. T/P Trunk is compressible. T/P Trunk is compressible. PTV is compressible. PTV is compressible. RT PerV is compressible. LT PerV is compressible. SFJ is competent and measures 0.34 x 0.43 cm. SFJ is competent and measures 0.33 x 0.34 cm. GSV proximal thigh measures 0.36 x 0.38 cm. GSV proximal thigh measures 0.31 x 0.37 cm. GSV at knee measures 0.37 x 0.38 cm. GSV at knee measures 0.25 x 0.28 cm. GSV is competent throughout. GSV is competent throughout. SSV proximal calf is competent and measures SSV proximal calf is competent and measures 0.26 x 0.29 cm. 0.26 x 0.29 cm. Procedure This is a venous duplex using B-mode, color flow and spectral Doppler. Exam performed in department. The exam was diagnostic. VL/Venous Duplex US - Celestino Extrem Interpretation Summary Deep veins of the bilateral lower extremities are patent and compressible segme ntally. There is no evidence of bilateral lower extremity deep vein thrombosis. The bilateral great saphenous veins appear patent and compressible segmentally. Negative for reflux bilateral Ordering Physician: Mandie Kelsey Referring Physician: Inocente Nichols M.D. Performed By: Kaiser Cota, RVT
== END | disposition home or self-care (01) ==
LOC: CVS 14:19
PROVIDERS: PCP Internal Medicine; Referring Provider Physician Assistant; Visit Provider Physician Assistant
DX: I73.9 Peripheral vascular disease, unspecified (principal); R60.0 Localized edema; S81.801A Unspecified open wound, right lower leg, initial encounter
CPT/HCPCS: 93923; 93970

== ENCOUNTER 2023-01-21 17:34 | Inpatient (IN) | payer MEDICARE, MEDICAID, SELFPAY ==
[2023-01-21] VITALS (15 sets, daily range): BP systolic 117–172; BP diastolic 50–99; PULSE 29–74; RESP 12–54; TEMP 36.2–36.6; O2SAT 90–99; BMI 29.6; BMI 29.7
--- NOTE | 2023-01-21 17:31 | EKG12_ITS ---
Test Reason : SOB Blood Pressure : / mmHG Vent. Rate : 056 BPM Atrial Rate : 000 BPM P-R Int : 000 ms QRS Dur : 148 ms QT Int : 422 ms P-R-T Axes : 000 -81 069 degrees QTc Int : 407 ms Wide QRS rhythm Right bundle branch block Left anterior fascicular block Bifascicular block Abnormal ECG When compared with ECG of 07-MAR-2022 10:45, Wide QRS rhythm has replaced Atrial fibrillation Confirmed by JUANI RUBIN, JAY ([id number]), editor sound KENAN RIDLEY ([id number]) on 01/27/2023 12:29:48 PM Referred By: HIRA/CARO Confirmed By:JAY GLORIA MD
--- NOTE | 2023-01-21 17:53 | EKG12_ITS ---
Test Reason : BRADYCARDIA Blood Pressure : / mmHG Vent. Rate : 044 BPM Atrial Rate : 045 BPM P-R Int : 000 ms QRS Dur : 106 ms QT Int : 698 ms P-R-T Axes : 000 -29 040 degrees QTc Int : 596 ms Junctional bradycardia Nonspecific ST abnormality Prolonged QT Abnormal ECG When compared with ECG of 21-JAN-2023 17:31, MANUAL COMPARISON REQUIRED, DATA IS UNCONFIRMED Confirmed by JUANI RUBIN, JAY ([id number]), fashion editor KENAN RIDLEY ([id number]) on 01/23/2023 12:59:13 PM Referred By: ISAI Confirmed By:JAY GLORIA MD
--- NOTE | 2023-01-21 17:56 | RAD_ITS ---
INDICATION: fall EXAMINATION/TECHNIQUE: X-RAY - LEFT XR Tibia/Fibula 2 Views 4 VIEWS COMPARISON: FINDINGS: BONES: Osteopenic. No fracture demonstrated. Degenerative changes about the knee involving all 3 joint compartments. JOINTS: No dislocation. SOFT TISSUES: Soft tissue swelling about the ankle especially overlying the lateral malleolus. RAD/Tibia & Fibula 2 Views IMPRESSION: No evidence of fracture. Electronically Signed: Sara Crenshaw MD at 19:03 EDT ,
--- NOTE | 2023-01-21 17:56 | EX.ED.DYSGE1 ---
HPI History of Present Illness Chief Complaint: Shortness of Breath Detail of Chief Complaint: Fell leaving the doctor's office. Rapid response team called. Informant: patient Onset/Context/Timing Onset: Today Context: Sudden Onset Timing: Continuous Current Severity: Mild Maximum Severity: Mild Narrative Narrative: 72-year-old male history of A-fib, bradycardia, COPD and CAD. Today was at a appointment for chronic pain. He is is leaving the office get in the car is fell skinned up both lower legs. Said he just felt weak and overall short of breath. He denies any chest pain. He denies any vomiting or diarrhea. He denies any melena. Reportedly lives with his sister here in the local area. She is currently not available for questioning. He is a limited informant. Prior similar symptoms: Yes Recent Illness/Hospitalization: No PFSH PFS Medical History Adenocarcinoma of left lung Adult failure to thrive AF (paroxysmal atrial fibrillation) Alcohol dependence Alcoholic polyneuropathy Anxiety Bilateral edema of lower extremity Bipolar disorder BPH without obstruction/lower urinary tract symptoms Bradycardia CAD (coronary artery disease) Cancer Chronic hip pain, bilateral Chronic low back pain Closed subcapital fracture of right femur COLD (chronic obstructive lung disease) COPD (chronic obstructive pulmonary disease) Decubitus ulcer of right buttock, stage 2 Dermatophytosis of nail Dyspnea GERD (gastroesophageal reflux disease) High cholesterol History of colon polyps HLD (hyperlipidemia) HTN (hypertension) Irregular heartbeat Lymphedema Macrocytic anemia Nodule of right lung Nondisp fx proximal phalanx lesser toe right foot w/routine heal Obesity (BMI 30.0-34.9) PAD (peripheral artery disease) Paroxysmal atrial fibrillation Physical debility Pre-procedure lab exam Primary adenocarcinoma of lower lobe of right lung Primary adenocarcinoma of upper lobe of left lung Pulmonary hypertension PVD (peripheral vascular disease) Schizoaffective disorder Seasonal allergic rhinitis Smoker Spinal stenosis of lumbar region with neurogenic claudication Stage I decubitus ulcer and pressure area Stenosis of esophagus Tobacco use disorder Urinary incontinence Wound of right foot Home Medications cholecalciferol (vitamin D3) 25 mcg (1,000 unit) tablet 2,000 unit PO DAILY supplement 02/22/19 [History Last Taken 03/07/22] finasteride 5 mg tablet 5 mg PO QHS prostate 02/22/19 [History Last Taken 03/06/22] melatonin 3 mg tablet 3 mg PO QHS PRN sleep aide 02/22/19 [History Last Taken 05/19/21] tamsulosin 0.4 mg capsule 0.8 mg PO QHS urinary issues 02/22/19 [History Last Taken 03/06/22] omeprazole 20 mg capsule,delayed release 20 mg PO DAILY STOMACH 01/09/20 [History Last Taken 03/07/22] albuterol sulfate 90 mcg/actuation aerosol inhaler 1 - 2 puff inhalation 4X/DAY PRN PRN Sob &/Or Wheezing #8.5 grams 01/04/21 [Rx Last Taken 05/20/21] budesonide 180 mcg/actuation breath activated powder inhaler (Pulmicort Flexhaler) 2 inh inhalation BID lungs 12/19/21 [History Last Taken 03/07/22] mineral oil 133 ml AK DAILY PRN Constipation 12/19/21 [History Last Taken Unknown] bisacodyl 10 mg rectal suppository 10 mg [place] DAILY PRN Constipation 03/07/22 [History Last Taken Unknown] folic acid 1 mg tablet 1 mg PO DAILY@0800 supplement 03/07/22 [History Last Taken 03/07/22] losartan 50 mg tablet 50 mg PO DAILY bp 03/07/22 [History Last Taken 03/07/22] magnesium hydroxide 400 mg/5 mL oral suspension 400 mg PO DAILY PRN Constipation 03/07/22 [History Last Taken Unknown] multivitamin 1 tab PO DAILY supplement 03/07/22 [History Last Taken 03/07/22] thiamine HCl (vitamin B1) 100 mg tablet 100 mg PO DAILYCM supplement 03/07/22 [History Last Taken 03/07/22] sodium chloride 1,000 mg soluble tablet 1,000 mg PO TID #90 tabs 03/12/22 [Rx Last Taken Unknown] furosemide 40 mg tablet 40 mg PO BID 08/11/22 [History Last Taken Unknown] hydrocodone-acetaminophen 5-325mg 5mg-325mg 1 tab PO 3XD 09/24/22 [History Last Taken Unknown] atorvastatin 80 mg tablet 80 mg PO DAILY #30 tabs 10/14/22 [Rx Last Taken Unknown] aspirin 81 mg capsule 81 mg PO DAILY 10/16/22 [History Last Taken Unknown] divalproex 250 mg tablet,extended release 24 hr (Depakote ER) 500 mg PO QHS mental health 01/21/23 [History Last Taken Unknown] fluticasone propionate 50 mcg/actuation nasal spray,suspension 2 spray intranasal DAILY 01/21/23 [History Last Taken Unknown] guaifenesin 400 mg tablet 400 mg PO TID 01/21/23 [History Last Taken Unknown] lactulose 10 gram/15 mL oral solution 30 g PO BID PRN constipation 01/21/23 [History Last Taken Unknown] loratadine 10 mg tablet 10 mg PO DAILY 01/21/23 [History Last Taken Unknown] olanzapine 15 mg tablet (Zyprexa) 15 mg PO QHS 01/21/23 [History Last Taken Unknown] Allergy/AdvReac Type Severity Reaction Status Date / Time venom-honey bee Allergy Severe Anaphylaxis Verified 01/21/23 17:39 [bee venom (honey bee)] Family History Father Prostate cancer Mother Lung cancer Surgical History History of heart artery stent History of heart artery stent History of hernia repair History of right hip replacement Social History household members: none Smoking Status: Current every day smoker tobacco type: cigarettes Tobacco: How many years used: 60 second hand exposure: No quit status: has quit before alcohol intake: current alcohol intake frequency: 0-2 drinks per day Alcohol type: beer details: 2 beers every evening substance use type: does not use caffeine: Yes Type: coffee Number of servings: 2 luis/episcopalian: None seatbelt use: always do you feel safe at home: Yes ROS ROS ED ROS Narrative Generalized weakness and shortness of breath. Denies fever. Denies vomiting or diarrhea. Review of Systems ROS Unobtainable: Denies due to encephalopathy Constitutional Constitutional ED: Denies chills or fever(s) Eyes Eyes: Denies blurry vision ENT ENT ED: Denies ear pain Cardiovascular Cardiovascular: Denies chest pain Respiratory/Chest Respiratory/Chest: Reports dyspnea; Denies cough Gastrointestinal Gastrointestinal: Denies abdominal pain, constipation, diarrhea, melena, nausea or vomiting Genitourinary Genitourinary ED: Denies dysuria or hematuria Musculoskeletal Musculoskeletal: Denies arthralgias Integumentary Reports Abrasions; Denies abscess Neurologic Neurologic: Denies headache(s) Psychiatric Psychiatric: Denies anxiety Endocrine Endocrinology: Denies cold intolerance Hematologic/Lymphatic Hematologic/Lymphatic: Reports none Allergic/Immunologic Allergic/Immunologic ED: Denies mouth swelling or tongue swelling EXAM Physical Exam Narrative Exam Narrative: -year-old male no acute distress vital signs are stable. He is afebrile. His pulse ox 96% on room air no signs hypoxia. H EENT exam unremarkable atraumatic. Pupils round reactive light. Moist extremities. Posterior pharynx unremarkable. Scalp nontender. Neck nontender. Back nontender. Lungs scattered expiratory wheezes. No rales or rhonchi. Heart bradycardic rate in the 50s. No murmur. Has history of bradycardia. Chest wall and rib cage nontender. Abdomen obese nontender. Pelvic girdle intact. Moving all 4 extremities. Chronic skin changes and edema in both lower extremities. Skin tear on the left tib-fib and also the right. Nothing to repair. Is to be cleaned and dressed. No gross bony deformities. No significant tenderness. Dorsi and plantarflexion is intact. Normal credit collections rep strength. He is awake and alert. He is a poor informant. But he is answering questions and following commands. He is moving all 4 extremities. Const Vital Signs: 01/21/23 17:35 01/21/23 17:55 01/21/23 18:04 Temperature 97.9 F Temperature Source Temporal Pulse Rate 29 L 49 L Respiratory Rate 54 H 20 H Respiratory Effort Labored Accessory Muscle Use Respiratory Pattern Tachypnea Normal Blood Pressure 152/74 H Blood Pressure Mean 100 Pulse Ox 96 Oxygen Delivery Method Room Air Room Air 01/21/23 18:00 01/21/23 18:15 01/21/23 18:30 Temperature Temperature Source Pulse Rate 52 L 54 L 50 L Respiratory Rate 22 H 23 H 22 H Respiratory Effort Respiratory Pattern Blood Pressure 144/60 H 139/57 H 117/52 L Blood Pressure Mean 84 80 73 Pulse Ox 94 99 94 Oxygen Delivery Method 01/21/23 18:45 01/21/23 19:00 Temperature Temperature Source Pulse Rate 51 L 54 L Respiratory Rate 16 12 Respiratory Effort Respiratory Pattern Blood Pressure 130/99 H 142/67 H Blood Pressure Mean 105 87 Pulse Ox 93 Oxygen Delivery Method Positive well nourished, well developed and obese; Negative for cachectic, contractures or unkempt General Appearance ED: well developed and NAD; Negative for unkempt, cachectic, contractures, cyanotic, diaphoretic or pallor Nutritional Appearance: obese; Negative for cachectic HEENT Reports moist mucous membranes; Denies dry mucous membranes Negative for trauma or tenderness Mouth ED: No dry mucous membranes Mouth: No dry mucous membranes Eyes PERRL and EOMs intact bilaterally General Eye ED: Negative for pale conjunctiva, scleral icterus or other Neck no lymphadenopathy, supple and no JVD General: Negative for tenderness Lymph Lymphatic: Negative for other Chest Wall inspection of chest normal and palpation of chest normal Chest: Negative for other Resp normal respiratory effort and No clear to auscultation bilaterally Effort and Inspection: Negative for retractions Auscultation: wheezes; Negative for rales or rhonchi Cardio regular rhythm, S1 normal heart sound, S2 normal heart sound and no murmurs; Negative for regular rate Rate: bradycardia GI normal to inspection, nondistended, normoactive bowel sounds, non-tender, non-distended and no masses Inspection: Negative for abdominal distention Auscultation: normoactive bowel sounds Palpation: soft; Negative for tender or guarding Back/Spine no CVA tenderness General Back: Negative for CVA tenderness Cervical Spine: Negative for cervical spine tenderness Thoracic Spine / Upper Back: Negative for thoracic spinal tenderness Extremity Negative for normal to inspection Extremity Narrative: There isChronic skin changes lower extremities. Edema. On midportion of both tib-fib's bilaterally. Nothing to repair. Dorsi and plantarflexion intact. No gross bony deformity or significant tenderness. General Extremety ED: Yes edema; Negative for tenderness General Extremity: edema Neuro oriented x3 and CN's II-XII intact bilaterally Sensorium / Orientation: alert; Negative for orientation impaired, lethargic or stuporous Motor Exam: strength 5/5 throughout Psych mental status grossly normal Appearance: Negative for unkempt Attitude: No agitated Mood & Affect: Negative for depressed, anxious or tearful Skin no rashes or lesions noted and No no wounds Skin Narrative: Bilateral lower extremity skin tears. General Skin Exam: Negative for jaundice or pallor Lesions: No lesion noted Rashes: No rashes noted Trauma: abrasion Wounds: wounds noted MDM MDM MDM Narrative Medical decision making narrative: 72-year-old male was leaving a doctor's office became weak and fell try to get in his car. Bilateral skin tears. It is to be cleaned and dressed. Due to his weakness and shortness of breath he will get a work-up. He will also be treated with aerosols for his wheezing. Repeat exam unchanged. The skin tears been dressed and cleaned. Patient be treated with 3% saline due to his severe hyponatremia. Blood cultures are being added. Currently we have no source of infection. I spoken to the hospitalist to evaluate the patient he will be admitted to the ICU. History & Record Review Discussion w/independent historian: Patient and Family Lab Data Attestation: I reviewed the patient's lab results. Lab results narrative: CBC shows a white count 12.6. H&H 12.1 and 35 which is his baseline. Platelets 260. Electrolytes show a severe hyponatremia with a sodium of 102. Its been low before but it was normally in the 125 to 130 range. Potassium 3.7. Chloride 64. Anion gap is 20. BUN and creatinine are 7 and 0.9. Lactic acid is elevated at 4.9. We do not have a source of infection. I will add blood cultures. Liver enzymes are unremarkable. Troponin is normal at 53. BNP is 281. PT/INR are 14 and 1.1. Chest x-ray negative. Chronic changes. UA negative. Labs: Laboratory Results - last 24 hr 01/21/23 01/21/23 18:00 18:25 WBC 12.6 H RBC 3.62 L Hgb 12.1 L Hct 35.0 L MCV 96.7 H MCH 33.4 H MCHC 34.6 RDW Std Deviation 50.7 H RDW Coeff of Fredi 14.1 Plt Count 260 MPV 9.5 Immature Gran % (Auto) 1.400 H Neut % (Auto) 81.4 H Lymph % (Auto) 10.1 L [place] % (Auto) 6.5 Eos % (Auto) 0.3 Baso % (Auto) 0.3 Absolute Neuts (auto) 10.2 H Absolute Lymphs (auto) 1.27 Nucleated RBC % 0 PT 14.0 INR 1.1 Sodium 102 L* Potassium 3.7 Chloride 64 L* Carbon Dioxide 18.0 L Anion Gap 20 H BUN 7 Creatinine 0.90 Estim Creat Clear Calc 81.38 Est GFR (MDRD) Af Amer 106 Est GFR (MDRD) Non-Af 88 BUN/Creatinine Ratio 7.8 L Glucose 152 H Lactic Acid 4.9 H* Calcium 8.3 L Total Bilirubin 1.60 H AST 30 ALT 20 Alkaline Phosphatase 145 H Troponin I High Sens 53 B-Natriuretic Peptide 281.9 H Total Protein 7.6 Albumin 3.3 Globulin 4.3 H Albumin/Globulin Ratio 0.8 L Urine Color Yellow Urine Clarity Sl. Cloudy Urine pH 6.5 Ur Specific [place] 1.010 Urine Protein 30 H Urine Glucose (UA) Normal Urine Ketones 5 H Urine Occult Blood 10 H Urine Nitrite Negative Urine Bilirubin Negative Urine Urobilinogen 1 H Ur Leukocyte Esterase Negative Urine RBC 0-5 SEEN Urine WBC 0 SEEN Ur Squamous Epith Cells 0-5 SEEN Amorphous Sediment 1+ URATE Urine Bacteria 0 SEEN Urine Mucus 0 SEEN Radiography Chest X-Ray - ED: 1 View, Read by ED Physician, Heart, Lungs, Mediastinum, Bony Structures, No Acute Disease and Chronic Changes Diagnostic Testing: Chest x-ray, portable, single view shows no acute abnormality. Chronic changes. Interpreted by myself. Normal cardiac silhouette. Rhythm Strip Rhythm Strip: Bradycardia Rate: 56 EKG Initial EKG: Attestation: I personally reviewed and interpreted this EKG as follows: Interpretation: No Acute Injury Pattern Comments: Wide-complex bradycardia with a right bundle branch block and left anterior fascicular block. Rate of 56. Prior EKG tracings: available for review Prior: Changed Critical Care Time Critical Care Time: Yes Critical care time (excluding procedures): 30-74 minutes, Including time spent:, Discussing w/Patient &/or Family/Keller Machine Operator, Discussing w/Consultants, Arranging Admission or Transfer, Performing Direct Patient Care at Bedside and - (34 min) Discharge Plan Triage Chief Complaint: Shortness of Breath ED Provider: Jeison Day Dx/Rx/DC Orders Clinical Impression: Generalized weakness, Skin tear, Fall, Unable to ambulate, Elevated lactic acid level, Acute hyponatremia Prescriptions: No Action albuterol sulfate 90 mcg/actuation HFA aerosol inhaler 1 - 2 puff inhalation 4X/DAY PRN PRN (Reason: Sob &/Or Wheezing) Qty: 8.5 5RF hydrocodone-acetaminophen 5-325 mg tablet 1 tab PO 3XD atorvastatin 80 mg tablet 80 mg PO DAILY Qty: 30 5RF lactulose 10 gram/15 mL solution 30 g PO BID PRN (Reason: constipation) olanzapine [Zyprexa] 15 mg tablet 15 mg PO QHS guaifenesin 400 mg tablet 400 mg PO TID fluticasone propionate 50 mcg/actuation spray,suspension 2 spray intranasal DAILY Rx Instructions: administer into each nostril loratadine 10 mg tablet 10 mg PO DAILY cholecalciferol (vitamin D3) 1,000 UNIT tablet 2,000 unit PO DAILY melatonin 3 MG tablet 3 mg PO QHS PRN (Reason: sleep aide) tamsulosin 0.4 MG capsule 0.8 mg PO QHS Rx Instructions: 2 -0.4mg caps finasteride 5 MG tablet 5 mg PO QHS omeprazole 20 MG capsule 20 mg PO DAILY mineral oil Enema 133 ml AK DAILY PRN (Reason: Constipation) Pulmicort Flexhaler 180 mcg/actuation Aerosol Powdr Breath Activated 2 inh INHALATION BID folic acid 1 MG tablet 1 mg PO DAILY@0800 multivitamin Tablet 1 tab PO DAILY losartan 50 mg tablet 50 mg PO DAILY Patient Comments: TAKE 1 TABLET BY MOUTH EVERY DAY magnesium hydroxide 400 mg/5 mL Suspension 400 mg PO DAILY PRN (Reason: Constipation) bisacodyl 10 mg Suppository 10 mg AK DAILY PRN (Reason: Constipation) thiamine HCl (vitamin B1) 100 MG tablet 100 mg PO DAILYCM sodium chloride 1,000 mg Tablet,Soluble 1,000 mg PO TID Qty: 90 0RF divalproex [Depakote ER] 250 mg tablet extended release 24 hr 500 mg PO QHS furosemide 40 mg tablet 40 mg PO BID aspirin 81 mg Capsule 81 mg PO DAILY Primary Care Provider: Inocente Nichols Referrals: Inocente Nichols MD [Primary Care Provider] - Disposition Disposition: Acute Care Hospital [facility]
[2023-01-21] MEDS: Albuterol 2.5 MG/3 ML VIAL.NEB. INHALATION (18:03)
[2023-01-21] MEDS: Ipratropium/Albuterol Sulfate 3 ML AMPUL.NEB INHALATION (18:03)
[2023-01-21 18:14] LABS: Absolute Lymphocyte Count 1.27 X10^3/uL (0.83-4.51); Absolute Neutrophil Count 10.2 X10^3/uL (2.0-7.7); Basophil# 0.04 X10^3/uL; Basophil% 0.3 % (0-1); Eosinophil# 0.04 X10^3/uL; Eosinophils% 0.3 % (0-5); Hemoglobin 12.1 g/dL (13.0-16.5); Lymphocyte # 1.27 X10^3/ul (0.83-4.51); Lymphocyte % 10.1 % (19-41); Mean Corp Hgb Conc 34.6 g/dL (32-36); Mean Corpuscular Hgb 33.4 pg (27.0-32.0); Mean Corpuscular Volume 96.7 fL (80-94); Mean Platelet Vol. 9.5 fl (6.2-12.0); Monocyte# 0.81 X10^3/uL; Monocyte% 6.5 % (0-10); NRBC Flagged by Analyzer 0 % (0-5); Neutrophil # 10.21 X10^3/uL (2.7-7.7); Neutrophil % 81.4 % (47-70); Platelet Count 260 K/mm3 (150-450); RBC Distribution Width CV 14.1 % (11.6-14.6); RBC Distribution Width SD 50.7 fl (35.1-43.9); Red Blood Count 3.62 M/mm3 (4.6-6.2); White Blood Count 12.6 K/mm3 (4.4-11.0)
[2023-01-21 18:21] LABS: International Normalized Ratio 1.1
[2023-01-21 18:30] LABS: Bacteria 0 SEEN /hpf (None Seen); Mucous, Urine 0 SEEN /hpf (<or=2+); White Blood Cells 0 SEEN /hpf (0-5)
[2023-01-21 18:35] LABS: Color, Urine Yellow (Yellow); Glucose, Dipstick Normal (Normal); Ketone-Dipstick 5 mg/dl (Negative); Leukocyte Esterase-Dipstick Negative /ul (Negative); Nitrite-Dipstick Negative (Negative); Occult Blood-Urine 10 /ul (Negative); Protein-Dipstick 30 mg/dl (Negative); Urine Bilirubin Dipstick Negative (Negative); Urine Clarity Sl. Cloudy (Clear); Urine Urobilinogen 1 mg/dl (Normal); Urine pH 6.5 (5.0 - 8.0)
--- NOTE | 2023-01-21 18:35 | RAD_ITS ---
INDICATION: weakness EXAMINATION/TECHNIQUE: X-RAY - XR Chest 1 View AP portable. 6:32 PM COMPARISON: 05/22/2022. FINDINGS: LINES/DEVICES: None. LUNGS: Prominence of interstitial lung markings at the lung bases, not significantly changed compared to priors. No consolidation. No pneumothorax. MEDIASTINUM: Aorta is atherosclerotic. CARDIAC SILHOUETTE: Enlarged. Stable size. BONES AND SOFT TISSUES: No acute abnormalities. RAD/Chest 1 View (Portable) IMPRESSION: Stable bibasilar opacities likely scarring or interstitial disease. No consolidation. Electronically Signed: Sara Crenshaw MD at 19:01 EDT ,
[2023-01-21 18:42] LABS: Amorphous Sediment 1+ URATE; Red Blood Cells-Urine 0-5 SEEN /hpf (0-5); Squamous Epithelial Cells - UA 0-5 SEEN /hpf (0-5)
[2023-01-21 18:44] LABS: BNP,B-Type NATRIURETIC PEPTIDE 281.9 pg/mL (0-100)
[2023-01-21 19:18] LABS: ALB/GLOB Ratio 0.8 RATIO (0.9-2.4); AST(SGOT) 30 U/L (15-37); Alanine Aminotransfer ALT/SGPT 20 U/L (16-61); Albumin, Serum 3.3 g/dL (3.2-5.0); Alkaline Phosphatase 145 U/L (45-117); Anion Gap 20 (5-15); BUN 7 mg/dL (7-18); BUN/Creat Ratio 7.8 RATIO (10-20); Calcium,Total 8.3 mg/dL (8.5-10.1); Chloride 64 mmol/L (98-107); EST Glomerular Filtration Rate 88 mL/min (>60); Est Glom Filt Rate - Afr Amer 106 mL/min (>60); Estimated Creatinine Clearance 81.38 ml/min; Globulin 4.3 g/dL (2.2-4.2); Glucose 152 mg/dL (74-106); Potassium 3.7 mmol/L (3.5-5.1); Protein, Total 7.6 g/dL (6.4-8.2); Sodium Level 102 mmol/L (136-145); Troponin-I HS 53 pg/mL (3.0-78.0)
[2023-01-21 19:20] LABS: Lactic Acid 4.9 mmol/L (0.4-1.9)
--- NOTE | 2023-01-21 19:50 | HP.PCM.HOS_ITS ---
HPI - General General Date of Admission: 01/21/23 Date of Service: 01/21/23 Chief Complaint: Weakness HPI Narrative KELLY YOU, is a 72 M with a significant history of lung cancer; chronic low back pain who went to see pain management, on the same day of presentation presenting with weakness and fall. Reportedly after patient has completed his appointment with pain management he could not walk into his sister's car. Patient was too weak even to stand. Subsequently he fell. A rapid response was called. Patient was brought to emergency department. At the emergency department patient found to have severely low sodium, low chlo ride and had severe lactic acidosis. [facility] Medical History Adenocarcinoma of left lung Adult failure to thrive AF (paroxysmal atrial fibrillation) Alcohol dependence Alcoholic polyneuropathy Anxiety Bilateral edema of lower extremity Bipolar disorder BPH without obstruction/lower urinary tract symptoms Bradycardia CAD (coronary artery disease) Cancer Chronic hip pain, bilateral Chronic low back pain Closed subcapital fracture of right femur COLD (chronic obstructive lung disease) COPD (chronic obstructive pulmonary disease) Decubitus ulcer of right buttock, stage 2 Dermatophytosis of nail Dyspnea GERD (gastroesophageal reflux disease) High cholesterol History of colon polyps HLD (hyperlipidemia) HTN (hypertension) Irregular heartbeat Lymphedema Macrocytic anemia Nodule of right lung Nondisp fx proximal phalanx lesser toe right foot w/routine heal Obesity (BMI 30.0-34.9) PAD (peripheral artery disease) Paroxysmal atrial fibrillation Physical debility Pre-procedure lab exam Primary adenocarcinoma of lower lobe of right lung Primary adenocarcinoma of upper lobe of left lung Pulmonary hypertension PVD (peripheral vascular disease) Schizoaffective disorder Seasonal allergic rhinitis Smoker Spinal stenosis of lumbar region with neurogenic claudication Stage I decubitus ulcer and pressure area Stenosis of esophagus Tobacco use disorder Urinary incontinence Wound of right foot Home Medications cholecalciferol (vitamin D3) 25 mcg (1,000 unit) tablet 2,000 unit PO DAILY supplement 02/22/19 [History Last Taken 03/07/22] finasteride 5 mg tablet 5 mg PO QHS prostate 02/22/19 [History Last Taken 03/06/22] melatonin 3 mg tablet 3 mg PO QHS PRN sleep aide 02/22/19 [History Last Taken 05/19/21] tamsulosin 0.4 mg capsule 0.8 mg PO QHS urinary issues 02/22/19 [History Last Taken 03/06/22] omeprazole 20 mg capsule,delayed release 20 mg PO DAILY STOMACH 01/09/20 [History Last Taken 03/07/22] albuterol sulfate 90 mcg/actuation aerosol inhaler 1 - 2 puff inhalation 4X/DAY PRN PRN Sob &/Or Wheezing #8.5 grams 01/04/21 [Rx Last Taken 05/20/21] budesonide 180 mcg/actuation breath activated powder inhaler (Pulmicort Flexhaler) 2 inh inhalation BID lungs 12/19/21 [History Last Taken 03/07/22] mineral oil 133 ml [place] DAILY PRN Constipation 12/19/21 [History Last Taken Unknown] bisacodyl 10 mg rectal suppository 10 mg [place] DAILY PRN Constipation 03/07/22 [History Last Taken Unknown] folic acid 1 mg tablet 1 mg PO DAILY@0800 supplement 03/07/22 [History Last Taken 03/07/22] losartan 50 mg tablet 50 mg PO DAILY bp 03/07/22 [History Last Taken 03/07/22] magnesium hydroxide 400 mg/5 mL oral suspension 400 mg PO DAILY PRN Constipation 03/07/22 [History Last Taken Unknown] multivitamin 1 tab PO DAILY supplement 03/07/22 [History Last Taken 03/07/22] thiamine HCl (vitamin B1) 100 mg tablet 100 mg PO DAILYCM supplement 03/07/22 [ History Last Taken 03/07/22] sodium chloride 1,000 mg soluble tablet 1,000 mg PO TID SUPPLEMENT #90 tabs 03/12/22 [Rx Last Taken Unknown] furosemide 40 mg tablet 40 mg PO BID FLUID 08/11/22 [History Last Taken Unknown] hydrocodone-acetaminophen 5-325mg 5mg-325mg 1 tab PO Q8H PAIN 09/24/22 [History Last Taken Unknown] atorvastatin 80 mg tablet 80 mg PO DAILY CHOLESTEROL #30 tabs 10/14/22 [Rx Last Taken Unknown] aspirin 81 mg tablet,delayed release (Adult Low Dose Aspirin) 81 mg PO DAILY HEALTH MAINTENANCE 01/21/23 [History Last Taken Unknown] divalproex 250 mg tablet,extended release 24 hr (Depakote ER) 500 mg PO QHS mental health 01/21/23 [History Last Taken Unknown] fluticasone propionate 50 mcg/actuation nasal spray,suspension 2 spray intranasal DAILY SINUS 01/21/23 [History Last Taken Unknown] guaifenesin 400 mg tablet 400 mg PO TID 01/21/23 [History Last Taken Unknown] lactulose 10 gram/15 mL oral solution 30 g PO BID PRN constipation 01/21/23 [History Last Taken Unknown] loratadine 10 mg tablet 10 mg PO DAILY ALLERGIES 01/21/23 [History Last Taken Unknown] olanzapine 15 mg tablet (Zyprexa) 15 mg PO QHS 01/21/23 [History Last Taken Unknown] Allergy/AdvReac Type Severity Reaction Status Date / Time venom-honey bee Allergy Severe Anaphylaxis Verified 01/21/23 17:39 [bee venom (honey bee)] Family History Father Prostate cancer Mother Lung cancer Surgical History History of heart artery stent History of heart artery stent History of hernia repair History of right hip replacement Social History household members: none Smoking Status: Current every day smoker tobacco type: cigarettes Tobacco: How many years used: 60 second hand exposure: No quit status: has quit before alcohol intake: current alcohol intake frequency: 0-2 drinks per day Alcohol type: beer details: 2 beers every evening substance use type: does not use caffeine: Yes Type: coffee Number of servings: 2 luis/moravian: None seatbelt use: always do you feel safe at home: Yes ROS ROS Narrative Pertinent positives and pertinent negatives as noted in HPI. All other systems were reviewed and are negative Vital Signs Vital Signs Vital Signs: 01/21/23 17:35 01/21/23 17:55 01/21/23 18:04 Temperature 97.9 F Temperature Source Temporal Pulse Rate 29 L 49 L Respiratory Rate 54 H 20 H Respiratory Effort Labored Accessory Muscle Use Respiratory Pattern Tachypnea Normal Blood Pressure 152/74 H Blood Pressure Mean 100 Pulse Ox 96 Oxygen Delivery Method Room Air Room Air 01/21/23 18:00 01/21/23 18:15 01/21/23 18:30 Temperature Temperature Source Pulse Rate 52 L 54 L 50 L Respiratory Rate 22 H 23 H 22 H Respiratory Effort Respiratory Pattern Blood Pressure 144/60 H 139/57 H 117/52 L Blood Pressure Mean 84 80 73 Pulse Ox 94 99 94 Oxygen Delivery Method 01/21/23 18:45 01/21/23 19:00 Temperature Temperature Source Pulse Rate 51 L 54 L Respiratory Rate 16 12 Respiratory Effort Respiratory Pattern Blood Pressure 130/99 H 142/67 H Blood Pressure Mean 105 87 Pulse Ox 93 Oxygen Delivery Method Weight Weight: 102 kg Body Mass Index (BMI) 29.6 Physical Exam Narrative Physical exam: General: Well-nourished, well-developed. Head: Normocephalic, atraumatic, no tenderness Eyes: Vision is grossly intact. EOMI ENT, no trauma, moist mucous membranes, no rhinorrhea Neck: Nontender, No thyromegaly. CVS: regular rate and rhythm. S1-S2 present. No murmur, gallop or rub. Respiratory : Tachypnea; mild rhonchi Abdomen: Soft, nontender, distended, hypoactive bowel sounds, no masses : Deferred Back: Nontender, no CVA tenderness Extremities: Nontender full range of motion, no trauma Skin: Normal color, laceration bilateral legs (from fall) Neuro: Alert, oriented, cranial nerves II through XII grossly intact. Psychiatry: Normal mood. Normal affect. Not depressed. Not anxious. Results Lab / Micro Data 01/22/23 03:10 01/22/23 03:10 Labs: Laboratory Results - last 24 hr 01/21/23 18:00: WBC 12.6 H, RBC 3.62 L, Hgb 12.1 L, Hct 35.0 L, MCV 96.7 H, MCH 33.4 H, MCHC 34.6, RDW Std Deviation 50.7 H, RDW Coeff of Fredi 14.1, Plt Count 260, MPV 9.5, Immature Gran % (Auto) 1.400 H, Neut % (Auto) 81.4 H, Lymph % (Auto) 10.1 L, [place] % (Auto) 6.5, Eos % (Auto) 0.3, Baso % (Auto) 0.3, Absolute Neuts (auto) 10.2 H, Absolute Lymphs (auto) 1.27, Nucleated RBC % 0, PT 14.0, INR 1.1, Sodium 102 L*, Potassium 3.7, Chloride 64 L*, Carbon Dioxide 18.0 L, Anion Gap 20 H, BUN 7, Creatinine 0.90, Estim Creat Clear Calc 81.38, Est GFR (MDRD) Af Amer 106, Est GFR (MDRD) Non-Af 88, BUN/Creatinine Ratio 7.8 L, Glucose 152 H, Lactic Acid 4.9 H*, Calcium 8.3 L, Total Bilirubin 1.60 H, AST 30, ALT 20, Alkaline Phosphatase 145 H, Troponin I High Sens 53, B-Natriuretic Peptide 281.9 H, Total Protein 7.6, Albumin 3.3, Globulin 4.3 H, Albumin/Globulin Ratio 0.8 L 01/21/23 18:25: Urine Color Yellow, Urine Clarity Sl. Cloudy, Urine pH 6.5, Ur Specific [place] 1.010, Urine Protein 30 H, Urine Glucose (UA) Normal, Urine Ketones 5 H, Urine Occult Blood 10 H, Urine Nitrite Negative, Urine Bilirubin Negative, Urine Urobilinogen 1 H, Ur Leukocyte Esterase Negative, Urine RBC 0-5 SEEN, Urine WBC 0 SEEN, Ur Squamous Epith Cells 0-5 SEEN, Amorphous Sediment 1+ URATE, Urine Bacteria 0 SEEN, Urine Mucus 0 SEEN Rhythm Strip Rhythm Strip: Bradycardia Rate: 56 Assessment & Plan Assessment/Plan (1) Acute hyponatremia: (2) Elevated lactic acid level: (3) Unable to ambulate: (4) Fall: QUALIFIERS: Encounter type: initial encounter Qualified Code(s): W19.XXXA - Unspecified fall, initial encounter PLAN: Plan Acute Hyponatremia Hyponatremia Check uric acid Check urine osmolarity Check urine sodium Check serum osmolality Discussed with ED doc and patient was started on hypertonic 3% saline at 50 MLS per hour. We will de-escalate after 500 MLS has been completed and started 40 MLS per hour. Trend BMP. Admit intensive care unit Generalized weakness/fall/unable to ambulate Impression of chest x-ray by radiology:Stable bibasilar opacities likely scarring or interstitial disease. No consolidation. Chest x-ray was independently interpreted by hospitalist and I agree with radiologist interpretation. Likely multifactorial from lung cancer, chronic back pain and hyponatremia. PT and OT worked with patient. Case management consult. Elevated lactic acid No nidus of infection noted. Trend. DVT prophylaxis: Subcutaneous Lovenox ordered. Charges/Coding Visit Charges Inpatient E&M: 42399 Init Hosp L3
[2023-01-21] MEDS: Sodium Cl 3% 500 ML 50 ML IV (20:18)
[2023-01-21] MEDS: Ondansetron 4 MG/2 ML Vial IV (20:23)
[2023-01-21] MEDS: Morphine 4 MG/ML Syringe IV (20:23)
[2023-01-21 20:30] LABS: Uric Acid 6.5 mg/dL (3.5-7.2)
[2023-01-21 21:09] LABS: Osmolality, Serum 216 mOsm/KG (280-301)
[2023-01-21 21:35] LABS: Urine Sodium 36 mmol/L (Not Establ.)
[2023-01-21 21:53] LABS: Anion Gap 14 (5-15); BUN 7 mg/dL (7-18); BUN/Creat Ratio 12.5 RATIO (10-20); Calcium,Total 8.4 mg/dL (8.5-10.1); Chloride 63 mmol/L (98-107); Creatinine, Serum 0.56 mg/dL (0.70-1.30); EST Glomerular Filtration Rate 151 mL/min (>60); Est Glom Filt Rate - Afr Amer 183 mL/min (>60); Estimated Creatinine Clearance 71.13 ml/min; Glucose 119 mg/dL (74-106); Potassium 3.4 mmol/L (3.5-5.1); Sodium Level 104 mmol/L (136-145)
[2023-01-21 21:58] LABS: Osmolality, Urine 236 mOsm/KG
[2023-01-21 22:07] LABS: Reflex Lactate? Y
[2023-01-21 22:51] LABS: Lactic Acid 1.1 mmol/L (0.4-1.9)
[2023-01-22] VITALS (27 sets, daily range): BP systolic 114–153; BP diastolic 39–90; PULSE 36–50; RESP 14–26; TEMP 36.1–37.3; O2SAT 90–100; BMI 29.3
[2023-01-22 03:21] LABS: Absolute Lymphocyte Count 0.74 X10^3/uL (0.83-4.51); Absolute Neutrophil Count 8.3 X10^3/uL (2.0-7.7); Basophil# 0.02 X10^3/uL; Basophil% 0.2 % (0-1); Eosinophil# 0.03 X10^3/uL; Eosinophils% 0.3 % (0-5); Hematocrit 29.1 % (40-54); Hemoglobin 10.5 g/dL (13.0-16.5); Lymphocyte # 0.74 X10^3/ul (0.83-4.51); Lymphocyte % 7.4 % (19-41); Mean Corp Hgb Conc 36.1 g/dL (32-36); Mean Corpuscular Volume 94.2 fL (80-94); Mean Platelet Vol. 8.7 fl (6.2-12.0); Monocyte# 0.96 X10^3/uL; Monocyte% 9.6 % (0-10); NRBC Flagged by Analyzer 0 % (0-5); Neutrophil # 8.25 X10^3/uL (2.7-7.7); Platelet Count 204 K/mm3 (150-450); RBC Distribution Width CV 13.8 % (11.6-14.6); Red Blood Count 3.09 M/mm3 (4.6-6.2); White Blood Count 10.1 K/mm3 (4.4-11.0)
[2023-01-22 04:20] LABS: ALB/GLOB Ratio 0.8 RATIO (0.9-2.4); AST(SGOT) 28 U/L (15-37); Alanine Aminotransfer ALT/SGPT 18 U/L (16-61); Albumin, Serum 2.9 g/dL (3.2-5.0); Alkaline Phosphatase 119 U/L (45-117); Anion Gap 8 (5-15); BUN 5 mg/dL (7-18); BUN/Creat Ratio 12.3 RATIO (10-20); Calcium,Total 8.1 mg/dL (8.5-10.1); Chloride 75 mmol/L (98-107); Creatinine, Serum 0.41 mg/dL (0.70-1.30); EST Glomerular Filtration Rate 219 mL/min (>60); Est Glom Filt Rate - Afr Amer 265 mL/min (>60); Estimated Creatinine Clearance 71.13 ml/min; Globulin 3.5 g/dL (2.2-4.2); Glucose 95 mg/dL (74-106); Potassium 3.2 mmol/L (3.5-5.1); Protein, Total 6.4 g/dL (6.4-8.2); Sodium Level 113 mmol/L (136-145); Thyroid Stim Hormone (TSH) 0.56 uIU/mL (0.358-3.74)
[2023-01-22] MEDS: Sodium Cl 3% 500 ML 40 ML IV (06:01)
[2023-01-22 06:57] LABS: Phosphorus 2.6 mg/dL (2.5-4.9)
[2023-01-22 07:02] LABS: Magnesium 1.7 mg/dL (1.6-2.6)
[2023-01-22] MEDS: Potassium Chloride 10mEq/100mL 10 MEQ/100 ML IV.SOLN. 100 MEQ IV BOLUS ×4 (07:33→11:56)
[2023-01-22 07:47] LABS: Bedside Glucose 86 mg/dL (74-106)
[2023-01-22] MEDS: Acetaminophen 325 MG Tablet 650 MG PO (08:44)
[2023-01-22] MEDS: HYDROcodone Bitartrate/Apap 5/325 Tablet PO ×3 (08:44→22:53)
[2023-01-22] MEDS: 0.9% Saline Lock 10 ML Syringe IV ×4 (09:57→22:53)
[2023-01-22] MEDS: Desmopressin Acetate 4 MCG/ML Ampul 2 MCG IV (09:57)
[2023-01-22] MEDS: Enoxaparin 40 MG/0.4 ML Syringe SC (10:28)
--- NOTE | 2023-01-22 11:29 | EX.PCM.CONCC ---
Assessment & Plan Assessment/Plan (1) Acute hyponatremia: PLAN: I assisted the hospitalist team for management today due to proximity; his sodium had corrected to 113; his 3% saline was discontinued, given a bolus with improvement in his mental status. - Continue with correction of no more than 8 mill equivalents of sodium per day -Titrate fluids to meet those parameters - Nephrology consult requested and appreciated. (2) Acute exacerbation of chronic obstructive pulmonary disease: PLAN: Patient is actively smoking 2 packs/day is and on oxygen. - Methylprednisolone IV 40 mg every 8 hours and DuoNeb scheduled every 4 hours. (3) Elevated lactic acid level: PLAN: Management per hospitalist team. (4) Fall: QUALIFIERS: Encounter type: initial encounter Qualified Code(s): W19.XXXA - Unspecified fall, initial encounter PLAN: Management per hospitalist team (5) Skin tear: PLAN: Management per hospitalist team (6) Generalized weakness: PLAN: Management per hospitalist team (7) PVD (peripheral vascular disease): PLAN: Stable, continue current treatment (8) Stage I decubitus ulcer and pressure area: PLAN: Local care PLAN: Plan Thank you for consulting [facility] on your pleasant patient. We will follow him with you while he is in the ICU. HPI Consult Data Date of Consult: 01/22/23 HPI Narrative Reason for Consultation: Hyponatremia, COPD. HPI Narrative: This pleasant 72-year-old male current [id number] (2 packs/day for 50 years) smoker and alcohol user was admitted to the [facility] yesterday for altered mental status associated with severe hyponatremia to 102. ?He was sent from his physician's office yesterday after a chronic low back pain appointment.? He is extremely weak, and could not get into his car after walking across the parking lot.? Fell and had skin tears on both shins, with sudden onset of dyspnea, unresponsiveness, had a rapid response was brought to the ER where he was found to have a sodium of 102, low chloride and lactic acidosis.? He has known alcohol dependence and is a 2 cans/day beer drinker.? He was noted to be wheezing and was given bronchodilators in the ER.? His wounds were cleaned and dressed.? He was started on 3% saline due to severe hyponatremia.? He was admitted to ICU for further management. 3% saline was stopped around 8 AM due to altered mental status (obtunded, nonverbal), his sodium had increased to 113 and he was given 2 500 cc boluses of D5W, with return of his mental status.? He is now alert and oriented x3. He is known to [facility] and has followed with Summer Lr NP and Dr. Jones Osman for moderate COPD with an asthmatic overlap.? Zyprexa 15 mg at bedtime, Flonase.? He is maintained on albuterol inhaler 1 to 2 puffs 4 times daily, Pulmicort Flexhaler 180 mcg, 2 puffs twice daily, takes furosemide 40 mg twice daily, aspirin daily, His last pulmonary function test for 10/10/2021 and showed a forced vital capacity of 60% predicted, FEV1 50% predicted, FEV1/FVC 54 and a positive bronchodilator response with FEV1 improving 13% after bronchodilator.? Lung volume studies showed no clinically significant restriction or hyperinflation.; the total lung capacity was 86% predicted.? Residual volume was 111% RV/TLC was 122%.? His gas exchange as measured by single breath DLCO was mildly decreased at 68% predicted, but normalized when adjusted for lung volumes.? DL/VA was 102% predicted. Past medical history includes CHF, pulmonary hypertension, atrial fibrillation, alcoholism, anxiety, bilateral lower extremity edema and venous stasis changes, bipolar disorder, BPH, coronary artery disease with coronary stents x2, peripheral vascular disease with right second toe wound followed by Dr. Guy right poe., COPD, history of right lower and left upper lobe lung cancer on recent radiation therapy, right femur fracture with right total arthroplasty, right buttock decubitus ulcer stage II, acid reflux, hyperlipidemia, hypertension, esophageal stenosis.? He is minimally ambulatory, walks to the Bathroom and kitchen, sleeps in a chair.? [facility] No history of DVT PE. Home medications were reviewed. Allergies: Honeybee sting causes anaphylaxis Family history: Father had prostate cancer mother had lung cancer. Social history: Lives with his sister.? Has 2 beers per day.? Smokes 2 packs/day. Review of systems: Unable due to poor memory, poor historian.? Chart reviewed.? He denies any fevers, chills, sweats, chest pain, nausea or vomiting, he did not say how much he is drinking currently but the chart states 2 beers per day. [facility] Medical History (Updated 01/22/23 @ 11:[address] Wes Pena MD) Acute exacerbation of chronic obstructive pulmonary disease Adenocarcinoma of left lung Adult failure to thrive AF (paroxysmal atrial fibrillation) Alcohol dependence Alcoholic polyneuropathy Anxiety Bilateral edema of lower extremity Bipolar disorder BPH without obstruction/lower urinary tract symptoms Bradycardia CAD (coronary artery disease) Cancer Chronic hip pain, bilateral Chronic low back pain Closed subcapital fracture of right femur COLD (chronic obstructive lung disease) COPD (chronic obstructive pulmonary disease) Decubitus ulcer of right buttock, stage 2 Dermatophytosis of nail Dyspnea GERD (gastroesophageal reflux disease) High cholesterol History of colon polyps HLD (hyperlipidemia) HTN (hypertension) Irregular heartbeat Lymphedema Macrocytic anemia Nodule of right lung Nondisp fx proximal phalanx lesser toe right foot w/routine heal Obesity (BMI 30.0-34.9) PAD (peripheral artery disease) Paroxysmal atrial fibrillation Physical debility Pre-procedure lab exam Primary adenocarcinoma of lower lobe of right lung Primary adenocarcinoma of upper lobe of left lung Pulmonary hypertension PVD (peripheral vascular disease) Schizoaffective disorder Seasonal allergic rhinitis Smoker Spinal stenosis of lumbar region with neurogenic claudication Stage I decubitus ulcer and pressure area Stenosis of esophagus Tobacco use disorder Urinary incontinence Wound of right foot Home Medications cholecalciferol (vitamin D3) 25 mcg (1,000 unit) tablet 2,000 unit PO DAILY supplement 02/22/19 [History Last Taken 03/07/22] finasteride 5 mg tablet 5 mg PO QHS prostate 02/22/19 [History Last Taken 03/06/22] melatonin 3 mg tablet 3 mg PO QHS PRN sleep aide 02/22/19 [History Last Taken 05/19/21] tamsulosin 0.4 mg capsule 0.8 mg PO QHS urinary issues 02/22/19 [History Last Taken 03/06/22] omeprazole 20 mg capsule,delayed release 20 mg PO DAILY STOMACH 01/09/20 [History Last Taken 03/07/22] albuterol sulfate 90 mcg/actuation aerosol inhaler 1 - 2 puff inhalation 4X/DAY PRN PRN Sob &/Or Wheezing #8.5 grams 01/04/21 [Rx Last Taken 05/20/21] budesonide 180 mcg/actuation breath activated powder inhaler (Pulmicort Flexhaler) 2 inh inhalation BID lungs 12/19/21 [History Last Taken 03/07/22] mineral oil 133 ml [place] DAILY PRN Constipation 12/19/21 [History Last Taken Unknown] bisacodyl 10 mg rectal suppository 10 mg [place] DAILY PRN Constipation 03/07/22 [History Last Taken Unknown] folic acid 1 mg tablet 1 mg PO DAILY@0800 supplement 03/07/22 [History Last Taken 03/07/22] losartan 50 mg tablet 50 mg PO DAILY bp 03/07/22 [History Last Taken 03/07/22] magnesium hydroxide 400 mg/5 mL oral suspension 400 mg PO DAILY PRN Constipation 03/07/22 [History Last Taken Unknown] multivitamin 1 tab PO DAILY supplement 03/07/22 [History Last Taken 03/07/22] thiamine HCl (vitamin B1) 100 mg tablet 100 mg PO DAILYCM supplement 03/07/22 [History Last Taken 03/07/22] sodium chloride 1,000 mg soluble tablet 1,000 mg PO TID SUPPLEMENT #90 tabs 03/12/22 [Rx Last Taken Unknown] furosemide 40 mg tablet 40 mg PO BID FLUID 08/11/22 [History Last Taken Unknown] hydrocodone-acetaminophen 5-325mg 5mg-325mg 1 tab PO Q8H PAIN 09/24/22 [History Last Taken Unknown] atorvastatin 80 mg tablet 80 mg PO DAILY CHOLESTEROL #30 tabs 10/14/22 [Rx Last Taken Unknown] aspirin 81 mg tablet,delayed release (Adult Low Dose Aspirin) 81 mg PO DAILY HEALTH MAINTENANCE 01/21/23 [History Last Taken Unknown] divalproex 250 mg tablet,extended release 24 hr (Depakote ER) 500 mg PO QHS mental health 01/21/23 [History Last Taken Unknown] fluticasone propionate 50 mcg/actuation nasal spray,suspension 2 spray intranasal DAILY SINUS 01/21/23 [History Last Taken Unknown] guaifenesin 400 mg tablet 400 mg PO TID 01/21/23 [History Last Taken Unknown] lactulose 10 gram/15 mL oral solution 30 g PO BID PRN constipation 01/21/23 [History Last Taken Unknown] loratadine 10 mg tablet 10 mg PO DAILY ALLERGIES 01/21/23 [History Last Taken Unknown] olanzapine 15 mg tablet (Zyprexa) 15 mg PO QHS 01/21/23 [History Last Taken Unknown] Allergy/AdvReac Type Severity Reaction Status Date / Time venom-honey bee Allergy Severe Anaphylaxis Verified 01/21/23 17:39 [bee venom (honey bee)] Family History Father Prostate cancer Mother Lung cancer Surgical History History of heart artery stent History of heart artery stent History of hernia repair History of right hip replacement Social History household members: none Smoking Status: Current every day smoker tobacco type: cigarettes Tobacco: How many years used: 60 second hand exposure: No quit status: has quit before alcohol intake: current alcohol intake frequency: 0-2 drinks per day Alcohol type: beer details: 2 beers every evening substance use type: does not use caffeine: Yes Type: coffee Number of servings: 2 luis/zoroastrian: None seatbelt use: always do you feel safe at home: Yes Physical Exam Narrative Well-developed, pasty appearing man with alopecia who is mildly lethargic but opens his eyes to voice and was alert and oriented x3. Please note that the patient was seen twice this morning on the first visit he was obtunded, 3% saline was stopped he was given 1 bolus of D5W 500 cc and within an hour his mental status had improved significantly. Accu-Chek glucose was normal. O2 saturation and vitals were unremarkable. Poor historian and poor insight however HEENT: Normocephalic atraumatic pupils are equal and reactive mucous membranes are moist no obvious bleeding Neck is supple. Lungs have diffuse inspiratory and expiratory wheezing in all lung farley. Possibly crackles although it is difficult to discolor with loud wheezing. No rhonchi. He had a cough during deep breathing for today's visit. Heart normal S1-S2 with no murmurs rubs or gallops Abdomen is soft, nontender. Extremities have chronic venous stasis changes bilaterally, chronic arterial insufficiency changes, but otherwise warm and dry. Some healed eschars on the toes. Neurologic exam is grossly nonfocal he follows commands, raises his arms. Inpatient medications were reviewed Medical Records Data Attestation: I reviewed the patient's medical records Lab / Micro Data 01/22/23 03:10 01/22/23 03:10 Labs: Laboratory Results - last 24 hr 01/21/23 18:00: WBC 12.6 H, RBC 3.62 L, Hgb 12.1 L, Hct 35.0 L, MCV 96.7 H, MCH 33.4 H, MCHC 34.6, RDW Std Deviation 50.7 H, RDW Coeff of Fredi 14.1, Plt Count 260, MPV 9.5, Immature Gran % (Auto) 1.400 H, Neut % (Auto) 81.4 H, Lymph % (Auto) 10.1 L, [place] % (Auto) 6.5, Eos % (Auto) 0.3, Baso % (Auto) 0.3, Absolute Neuts (auto) 10.2 H, Absolute Lymphs (auto) 1.27, Nucleated RBC % 0, PT 14.0, INR 1.1, Sodium 102 L*, Potassium 3.7, Chloride 64 L*, Carbon Dioxide 18.0 L, Anion Gap 20 H, BUN 7, Creatinine 0.90, Estim Creat Clear Calc 81.38, Est GFR (MDRD) Af Amer 106, Est GFR (MDRD) Non-Af 88, BUN/Creatinine Ratio 7.8 L, Glucose 152 H, Lactic Acid 4.9 H*, Uric Acid 6.5, Calcium 8.3 L, Total Bilirubin 1.60 H, AST 30, ALT 20, Alkaline Phosphatase 145 H, Troponin I High Sens 53, B-Natriuretic Peptide 281.9 H, Total Protein 7.6, Albumin 3.3, Globulin 4.3 H, Albumin/Globulin Ratio 0.8 L 01/21/23 18:25: Urine Color Yellow, Urine Clarity Sl. Cloudy, Urine pH 6.5, Ur Specific [place] 1.010, Urine Protein 30 H, Urine Glucose (UA) Normal, Urine Ketones 5 H, Urine Occult Blood 10 H, Urine Nitrite Negative, Urine Bilirubin Negative, Urine Urobilinogen 1 H, Ur Leukocyte Esterase Negative, Urine RBC 0-5 SEEN, Urine WBC 0 SEEN, Ur Squamous Epith Cells 0-5 SEEN, Amorphous Sediment 1+ URATE, Urine Bacteria 0 SEEN, Urine Mucus 0 SEEN 01/21/23 20:20: Serum Osmolality 216 L 01/21/23 21:20: Sodium 104 L*, Potassium 3.4 L, Chloride 63 L*, Carbon Dioxide 27.0, Anion Gap 14, BUN 7, Creatinine 0.56 L, Estim Creat Clear Calc 71.13, Est GFR (MDRD) Af Amer 183, Est GFR (MDRD) Non-Af 151, BUN/Creatinine Ratio 12.5, Glucose 119 H, Lactic Acid 1.1, Calcium 8.4 L 01/21/23 21:26: Urine Osmolality 236, Ur Random Sodium 36 01/22/23 03:10: WBC 10.1, RBC 3.09 L, Hgb 10.5 L, Hct 29.1 L, MCV 94.2 H, MCH 34.0 H, MCHC 36.1 H, RDW Std Deviation 48.0 H, RDW Coeff of Fredi 13.8, Plt Count 204, MPV 8.7, Immature Gran % (Auto) 0.500, Neut % (Auto) 82.0 H, Lymph % (Auto) 7.4 L, [place] % (Auto) 9.6, Eos % (Auto) 0.3, Baso % (Auto) 0.2, Absolute Neuts (auto) 8.3 H, Absolute Lymphs (auto) 0.74 L, Nucleated RBC % 0, Sodium 113 L*, Potassium 3.2 L, Chloride 75 L, Carbon Dioxide 30.0, Anion Gap 8, BUN 5 L, Creatinine 0.41 L, Estim Creat Clear Calc 71.13, Est GFR (MDRD) Af Amer 265, Est GFR (MDRD) Non-Af 219, BUN/Creatinine Ratio 12.3, Glucose 95, Calcium 8.1 L, Phosphorus 2.6, Magnesium 1.7, Total Bilirubin 1.30 H, AST 28, ALT 18, Alkaline Phosphatase 119 H, Total Protein 6.4, Albumin 2.9 L, Globulin 3.5, Albumin/Globulin Ratio 0.8 L, TSH 0.56 01/22/23 07:29: POC Glucose 86 Rhythm Strip Rhythm Strip: Bradycardia Rate: 56 Radiology Impression Tibia/Fibula X-Ray 01/21/23 17:56 IMPRESSION: No evidence of fracture. Electronically Signed: Sara Crenshaw MD at 19:03 EDT , Chest X-Ray 01/21/23 18:35 IMPRESSION: Stable bibasilar opacities likely scarring or interstitial disease. No consolidation. Electronically Signed: Sara Crenshaw MD at 19:01 EDT , Charges/Coding Visit Charges Inpatient E&M: 90845 Init Hosp L3
[2023-01-22 11:38] LABS: Anion Gap 5 (5-15); BUN 4 mg/dL (7-18); Calcium,Total 8.1 mg/dL (8.5-10.1); Chloride 77 mmol/L (98-107); EST Glomerular Filtration Rate 173 mL/min (>60); Est Glom Filt Rate - Afr Amer 210 mL/min (>60); Estimated Creatinine Clearance 71.13 ml/min; Glucose 197 mg/dL (74-106); Potassium 3.4 mmol/L (3.5-5.1); Sodium Level 112 mmol/L (136-145)
--- NOTE | 2023-01-22 12:15 | CASEMGMT ---
TYE HUGO Discharge Planning Assessment: Face to Face with patient for initial transition planning/care coordination assessment. TYE HUGO introduced self and role at [facility], pt voices understanding and is agreeable to participating in assessment. Pt is alert and answering questions appropriately. Pt with some difficulty recalling some details. Care providers, pharmacy, and demographics verified. Admitting dx: Hyponatremia PCP: [facility] but also has PCP through the [facility] Dr. [facility] Specialists: Psychiatrist at the [facility] Preferred Pharmacy: [facility] Insurance: [employer] [facility] Prescription Benefit: yes LNOK: sister Luisa Living Arrangements: Pt states his sister lives with him in a single story home with no steps to enter. Pt states he requires assistance with all ADLs. 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 Pt states he uses a walker to ambulate. States he receives Meals on Wheels daily. Transportation: Pt's sister provides transportation DME: walker, shower chair, grab bars, hand held shower, BSC, raised toilet seat, hand held shower, lift chair, hospital bed, medical alert, nebulizer, and a bipap or cpap (unsure of which one or from where). HHC: Pt has a [facility] (unable to recall her name), and currently receives nonskilled HHC as above. Pt states he has received skilled home care in the past from the [facility]. SNF: Pt states he has been in a SNF prior but unable to recall the name of the facility. Substance use: pt states he drinks 4 regular sized cans of beer daily and smokes 1 1/2 ppd. Plan: Pt's goal is to return home with the support of his services and his sister. Discussed with staff. Will continue to monitor pt's clinical progress and pt's demonstrated mobility with therapy. Will assist with further discharge planning as needs become more defined. Lulú Smith RN CM
[2023-01-22] MEDS: Methylprednisolone Sod Succ 40 MG/ML VIAL IV ×2 (12:51→21:09)
--- NOTE | 2023-01-22 15:25 | CON.PCM.RE_ITS ---
Assessment & Plan Assessment/Plan (1) Acute hyponatremia: PLAN: He does have previous history of hyponatremia. History of smoking. Hist ory of alcohol use. Came in with a sodium of 102, increased to 113 this morning. Rapid correction points towards beer potomania. On my discussion with staff, he had a urine output of more than 4 L since yesterday, likely causing rapid correction. Goal is to push the sodium down to 110 prior to the evening. Discussed with hospitalist. Desmopressin 2 mcg has been given. We will give dextrose bolus as needed to keep the sodium below 110. He will need slow correction, overall high risk for osmotic demyelination from rapid correction. We will adjust desmopressin and fluid doses as needed. HPI Consult Data Date of Consult: 01/22/23 HPI Narrative Reason for Consultation: Hyponatremia HPI Narrative: KELLY YOU, is a 72 M who presents To the hospital with severe hyponatremia. Apparently he was seeing a physician for back pain yesterday, was found to be somewhat confused hence referred to the emergency room. Came in with a sodium of 102 yesterday evening. This morning sodium has increased to 113, nephrology consultation placed in view of hyponatremia. He does have a history of significant alcohol intake as per admission records. He is currently alert, awake, he is aware that he is in the hospital. Only complaint he has is this low back pain which is chronic. No edema. [facility] Medical History (Updated 01/22/23 @ 11:[address] Wes Pena MD) Acute exacerbation of chronic obstructive pulmonary disease Adenocarcinoma of left lung Adult failure to thrive AF (paroxysmal atrial fibrillation) Alcohol dependence Alcoholic polyneuropathy Anxiety Bilateral edema of lower extremity Bipolar disorder BPH without obstruction/lower urinary tract symptoms Bradycardia CAD (coronary artery disease) Cancer Chronic hip pain, bilateral Chronic low back pain Closed subcapital fracture of right femur COLD (chronic obstructive lung disease) COPD (chronic obstructive pulmonary disease) Decubitus ulcer of right buttock, stage 2 Dermatophytosis of nail Dyspnea GERD (gastroesophageal reflux disease) High cholesterol History of colon polyps HLD (hyperlipidemia) HTN (hypertension) Irregular heartbeat Lymphedema Macrocytic anemia Nodule of right lung Nondisp fx proximal phalanx lesser toe right foot w/routine heal Obesity (BMI 30.0-34.9) PAD (peripheral artery disease) Paroxysmal atrial fibrillation Physical debility Pre-procedure lab exam Primary adenocarcinoma of lower lobe of right lung Primary adenocarcinoma of upper lobe of left lung Pulmonary hypertension PVD (peripheral vascular disease) Schizoaffective disorder Seasonal allergic rhinitis Smoker Spinal stenosis of lumbar region with neurogenic claudication Stage I decubitus ulcer and pressure area Stenosis of esophagus Tobacco use disorder Urinary incontinence Wound of right foot Home Medications cholecalciferol (vitamin D3) 25 mcg (1,000 unit) tablet 2,000 unit PO DAILY supplement 02/22/19 [History Last Taken 03/07/22] finasteride 5 mg tablet 5 mg PO QHS prostate 02/22/19 [History Last Taken 03/06/22] melatonin 3 mg tablet 3 mg PO QHS PRN sleep aide 02/22/19 [History Last Taken 05/19/21] tamsulosin 0.4 mg capsule 0.8 mg PO QHS urinary issues 02/22/19 [History Last Taken 03/06/22] omeprazole 20 mg capsule,delayed release 20 mg PO DAILY STOMACH 01/09/20 [History Last Taken 03/07/22] albuterol sulfate 90 mcg/actuation aerosol inhaler 1 - 2 puff inhalation 4X/DAY PRN PRN Sob &/Or Wheezing #8.5 grams 01/04/21 [Rx Last Taken 05/20/21] budesonide 180 mcg/actuation breath activated powder inhaler (Pulmicort Flexhaler) 2 inh inhalation BID lungs 12/19/21 [History Last Taken 03/07/22] mineral oil 133 ml NJ DAILY PRN Constipation 12/19/21 [History Last Taken Unknown] bisacodyl 10 mg rectal suppository 10 mg NJ DAILY PRN Constipation 03/07/22 [History Last Taken Unknown] folic acid 1 mg tablet 1 mg PO DAILY@0800 supplement 03/07/22 [History Last Taken 03/07/22] losartan 50 mg tablet 50 mg PO DAILY bp 03/07/22 [History Last Taken 03/07/22] magnesium hydroxide 400 mg/5 mL oral suspension 400 mg PO DAILY PRN Constipation 03/07/22 [History Last Taken Unknown] multivitamin 1 tab PO DAILY supplement 03/07/22 [History Last Taken 03/07/22] thiamine HCl (vitamin B1) 100 mg tablet 100 mg PO DAILYCM supplement 03/07/22 [History Last Taken 03/07/22] sodium chloride 1,000 mg soluble tablet 1,000 mg PO TID SUPPLEMENT #90 tabs [Rx Last Taken Unknown] furosemide 40 mg tablet 40 mg PO BID FLUID 08/11/22 [History Last Taken Unknown] hydrocodone-acetaminophen 5-325mg 5mg-325mg 1 tab PO Q8H PAIN 09/24/22 [History Last Taken Unknown] atorvastatin 80 mg tablet 80 mg PO DAILY CHOLESTEROL #30 tabs 10/14/22 [Rx Last Taken Unknown] aspirin 81 mg tablet,delayed release (Adult Low Dose Aspirin) 81 mg PO DAILY HEALTH MAINTENANCE 01/21/23 [History Last Taken Unknown] divalproex 250 mg tablet,extended release 24 hr (Depakote ER) 500 mg PO QHS mental health 01/21/23 [History Last Taken Unknown] fluticasone propionate 50 mcg/actuation nasal spray,suspension 2 spray intranasal DAILY SINUS 01/21/23 [History Last Taken Unknown] guaifenesin 400 mg tablet 400 mg PO TID 01/21/23 [History Last Taken Unknown] lactulose 10 gram/15 mL oral solution 30 g PO BID PRN constipation 01/21/23 [History Last Taken Unknown] loratadine 10 mg tablet 10 mg PO DAILY ALLERGIES 01/21/23 [History Last Taken Unknown] olanzapine 15 mg tablet (Zyprexa) 15 mg PO QHS 01/21/23 [History Last Taken Unknown] Allergy/AdvReac Type Severity Reaction Status Date / Time venom-honey bee Allergy Severe Anaphylaxis Verified 01/21/23 17:39 [bee venom (honey bee)] Family History Father Prostate cancer Mother Lung cancer Surgical History History of heart artery stent History of heart artery stent History of hernia repair History of right hip replacement Social History household members: none Smoking Status: Current every day smoker tobacco type: cigarettes Tobacco: How many years used: 60 second hand exposure: No quit status: has quit before alcohol intake: current alcohol intake frequency: 0-2 drinks per day Alcohol type: beer details: 2 beers every evening substance use type: does not use caffeine: Yes Type: coffee Number of servings: 2 luis/restoration: None seatbelt use: always do you feel safe at home: Yes ROS ROS Narrative Negative except above Physical Exam Narrative Alert awake no obvious distress no pallor no icterus no JVD s1s2 no murmurs lungs clear abdomen soft no organomegaly no edema no cyanosis wade + Lab / Micro Data 01/22/23 03:10 01/22/23 11:05 Labs: Laboratory Results - last 24 hr 01/21/23 18:00: WBC 12.6 H, RBC 3.62 L, Hgb 12.1 L, Hct 35.0 L, MCV 96.7 H, MCH 33.4 H, MCHC 34.6, RDW Std Deviation 50.7 H, RDW Coeff of Fredi 14.1, Plt Count 260, MPV 9.5, Immature Gran % (Auto) 1.400 H, Neut % (Auto) 81.4 H, Lymph % (Auto) 10.1 L, [place] % (Auto) 6.5, Eos % (Auto) 0.3, Baso % (Auto) 0.3, Absolute Neuts (auto) 10.2 H, Absolute Lymphs (auto) 1.27, Nucleated RBC % 0, PT 14.0, INR 1.1, Sodium 102 L*, Potassium 3.7, Chloride 64 L*, Carbon Dioxide 18.0 L, Anion Gap 20 H, BUN 7, Creatinine 0.90, Estim Creat Clear Calc 81.38, Est GFR (MDRD) Af Amer 106, Est GFR (MDRD) Non-Af 88, BUN/Creatinine Ratio 7.8 L, Glucose 152 H, Lactic Acid 4.9 H*, Uric Acid 6.5, Calcium 8.3 L, Total Bilirubin 1.60 H, AST 30, ALT 20, Alkaline Phosphatase 145 H, Troponin I High Sens 53, B- Natriuretic Peptide 281.9 H, Total Protein 7.6, Albumin 3.3, Globulin 4.3 H, Albumin/Globulin Ratio 0.8 L 01/21/23 18:25: Urine Color Yellow, Urine Clarity Sl. Cloudy, Urine pH 6.5, Ur Specific Beatrice 1.010, Urine Protein 30 H, Urine Glucose (UA) Normal, Urine Ketones 5 H, Urine Occult Blood 10 H, Urine Nitrite Negative, Urine Bilirubin Negative, Urine Urobilinogen 1 H, Ur Leukocyte Esterase Negative, Urine RBC 0-5 SEEN, Urine WBC 0 SEEN, Ur Squamous Epith Cells 0-5 SEEN, Amorphous Sediment 1+ URATE, Urine Bacteria 0 SEEN, Urine Mucus 0 SEEN 01/21/23 20:20: Serum Osmolality 216 L 01/21/23 21:20: Sodium 104 L*, Potassium 3.4 L, Chloride 63 L*, Carbon Dioxide 27.0, Anion Gap 14, BUN 7, Creatinine 0.56 L, Estim Creat Clear Calc 71.13, Est GFR (MDRD) Af Amer 183, Est GFR (MDRD) Non-Af 151, BUN/Creatinine Ratio 12.5, Glucose 119 H, Lactic Acid 1.1, Calcium 8.4 L 01/21/23 21:26: Urine Osmolality 236, Ur Random Sodium 36 01/22/23 03:10: WBC 10.1, RBC 3.09 L, Hgb 10.5 L, Hct 29.1 L, MCV 94.2 H, MCH 34.0 H, MCHC 36.1 H, RDW Std Deviation 48.0 H, RDW Coeff of Fredi 13.8, Plt Count 204, MPV 8.7, Immature Gran % (Auto) 0.500, Neut % (Auto) 82.0 H, Lymph % (Auto) 7.4 L, [place] % (Auto) 9.6, Eos % (Auto) 0.3, Baso % (Auto) 0.2, Absolute Neuts (auto) 8.3 H, Absolute Lymphs (auto) 0.74 L, Nucleated RBC % 0, Sodium 113 L*, Potassium 3.2 L, Chloride 75 L, Carbon Dioxide 30.0, Anion Gap 8, BUN 5 L, Creatinine 0.41 L, Estim Creat Clear Calc 71.13, Est GFR (MDRD) Af Amer 265, Est GFR (MDRD) Non-Af 219, BUN/Creatinine Ratio 12.3, Glucose 95, Calcium 8.1 L, Ph osphorus 2.6, Magnesium 1.7, Total Bilirubin 1.30 H, AST 28, ALT 18, Alkaline Phosphatase 119 H, Total Protein 6.4, Albumin 2.9 L, Globulin 3.5, Albumin/Globulin Ratio 0.8 L, TSH 0.56 01/22/23 07:29: POC Glucose 86 01/22/23 11:05: Sodium 112 L*, Potassium 3.4 L, Chloride 77 L, Carbon Dioxide 30.0, Anion Gap 5, BUN 4 L, Creatinine 0.50 L, Estim Creat Clear Calc 71.13, Est GFR (MDRD) Af Amer 210, Est GFR (MDRD) Non-Af 173, BUN/Creatinine Ratio 8.0 L, Glucose 197 H, Calcium 8.1 L Rhythm Strip Rhythm Strip: Bradycardia Rate: 56 Radiology Impression Tibia/Fibula X-Ray 01/21/23 17:56 IMPRESSION: No evidence of fracture. Electronically Signed: Sara Crenshaw MD at 19:03 EDT , Chest X-Ray 01/21/23 18:35 IMPRESSION: Stable bibasilar opacities likely scarring or interstitial disease. No consolidation. Electronically Signed: Sara Crenshaw MD at 19:01 EDT ,
--- NOTE | 2023-01-22 16:21 | CON.PCM.CA_ITS ---
Assessment & Plan Assessment/Plan (1) Bradycardia: PLAN: Patient denies having any symptoms due to his bradycardia. After correction of electrolyte abnormalities we will discuss options such as permanent pacemaker with the patient if clinically indicated at that time. (2) Torsades de pointes: PLAN: Patient's potassium was low. This is being replaced. The torsades could have also been induced by the bradycardia. If patient has further episodes of torsades then recheck potassium and magnesium and also start the patient on low- dose dopamine drip to increase his heart rate. HPI Consult Data Date of Consult: 01/22/23 HPI Narrative Reason for Consultation: Junctional rhythm, torsades HPI Narrative: KELLY YOU, is a 72 M who presents after a fall on his way out from his doctor's office. He was found to have severe hyponatremia and was admitted to the ICU. Cardiology consult was requested as patient had junctional rhythm with a heart rate in the low 40s. He also had an episode of torsades this morning. His potassium was low and is being replaced. Patient denies any cardiac symptoms. [facility] Medical History (Updated 01/22/23 @ 16:[address] Carol Rogers MD) Acute exacerbation of chronic obstructive pulmonary disease Adenocarcinoma of left lung Adult failure to thrive AF (paroxysmal atrial fibrillation) Alcohol dependence Alcoholic polyneuropathy Anxiety Bilateral edema of lower extremity Bipolar disorder BPH without obstruction/lower urinary tract symptoms Bradycardia CAD (coronary artery disease) Cancer Chronic hip pain, bilateral Chronic low back pain Closed subcapital fracture of right femur COLD (chronic obstructive lung disease) COPD (chronic obstructive pulmonary disease) Decubitus ulcer of right buttock, stage 2 Dermatophytosis of nail Dyspnea GERD (gastroesophageal reflux disease) High cholesterol History of colon polyps HLD (hyperlipidemia) HTN (hypertension) Irregular heartbeat Lymphedema Macrocytic anemia Nodule of right lung Nondisp fx proximal phalanx lesser toe right foot w/routine heal Obesity (BMI 30.0-34.9) PAD (peripheral artery disease) Paroxysmal atrial fibrillation Physical debility Pre-procedure lab exam Primary adenocarcinoma of lower lobe of right lung Primary adenocarcinoma of upper lobe of left lung Pulmonary hypertension PVD (peripheral vascular disease) Schizoaffective disorder Seasonal allergic rhinitis Smoker Spinal stenosis of lumbar region with neurogenic claudication Stage I decubitus ulcer and pressure area Stenosis of esophagus Tobacco use disorder Urinary incontinence Wound of right foot Home Medications cholecalciferol (vitamin D3) 25 mcg (1,000 unit) tablet 2,000 unit PO DAILY supplement 02/22/19 [History Last Taken 03/07/22] finasteride 5 mg tablet 5 mg PO QHS prostate 02/22/19 [History Last Taken 03/06/22] melatonin 3 mg tablet 3 mg PO QHS PRN sleep aide 02/22/19 [History Last Taken 05/19/21] tamsulosin 0.4 mg capsule 0.8 mg PO QHS urinary issues 02/22/19 [History Last Taken 03/06/22] omeprazole 20 mg capsule,delayed release 20 mg PO DAILY STOMACH 01/09/20 [History Last Taken 03/07/22] albuterol sulfate 90 mcg/actuation aerosol inhaler 1 - 2 puff inhalation 4X/DAY PRN PRN Sob &/Or Wheezing #8.5 grams 01/04/21 [Rx Last Taken 05/20/21] budesonide 180 mcg/actuation breath activated powder inhaler (Pulmicort Flexhaler) 2 inh inhalation BID lungs 12/19/21 [History Last Taken 03/07/22] mineral oil 133 ml KS DAILY PRN Constipation 12/19/21 [History Last Taken Unknown] bisacodyl 10 mg rectal suppository 10 mg KS DAILY PRN Constipation 03/07/22 [History Last Taken Unknown] folic acid 1 mg tablet 1 mg PO DAILY@0800 supplement 03/07/22 [History Last Taken 03/07/22] losartan 50 mg tablet 50 mg PO DAILY bp 03/07/22 [History Last Taken 03/07/22] magnesium hydroxide 400 mg/5 mL oral suspension 400 mg PO DAILY PRN Constipation 03/07/22 [History Last Taken Unknown] multivitamin 1 tab PO DAILY supplement 03/07/22 [History Last Taken 03/07/22] thiamine HCl (vitamin B1) 100 mg tablet 100 mg PO DAILYCM supplement 03/07/22 [History Last Taken 03/07/22] sodium chloride 1,000 mg soluble tablet 1,000 mg PO TID SUPPLEMENT #90 tabs 0 03/12/22 [Rx Last Taken Unknown] furosemide 40 mg tablet 40 mg PO BID FLUID 08/11/22 [History Last Taken Unknown] hydrocodone-acetaminophen 5-325mg 5mg-325mg 1 tab PO Q8H PAIN 09/24/22 [History Last Taken Unknown] atorvastatin 80 mg tablet 80 mg PO DAILY CHOLESTEROL #30 tabs 10/14/22 [Rx Last Taken Unknown] aspirin 81 mg tablet,delayed release (Adult Low Dose Aspirin) 81 mg PO DAILY HEALTH MAINTENANCE 01/21/23 [History Last Taken Unknown] divalproex 250 mg tablet,extended release 24 hr (Depakote ER) 500 mg PO QHS mental health 01/21/23 [History Last Taken Unknown] fluticasone propionate 50 mcg/actuation nasal spray,suspension 2 spray intranasal DAILY SINUS 01/21/23 [History Last Taken Unknown] guaifenesin 400 mg tablet 400 mg PO TID 01/21/23 [History Last Taken Unknown] lactulose 10 gram/15 mL oral solution 30 g PO BID PRN constipation 01/21/23 [History Last Taken Unknown] loratadine 10 mg tablet 10 mg PO DAILY ALLERGIES 01/21/23 [History Last Taken Unknown] olanzapine 15 mg tablet (Zyprexa) 15 mg PO QHS 01/21/23 [History Last Taken Unknown] Allergy/AdvReac Type Severity Reaction Status Date / Time venom-honey bee Allergy Severe Anaphylaxis Verified 01/21/23 17:39 [bee venom (honey bee)] Family History Father Prostate cancer Mother Lung cancer Surgical History History of heart artery stent History of heart artery stent History of hernia repair History of right hip replacement Social History household members: none Smoking Status: Current every day smoker tobacco type: cigarettes Tobacco: How many years used: 60 second hand exposure: No quit status: has quit before alcohol intake: current alcohol intake frequency: 0-2 drinks per day Alcohol type: beer details: 2 beers every evening substance use type: does not use caffeine: Yes Type: coffee Number of servings: 2 luis/rastafarian: None seatbelt use: always do you feel safe at home: Yes Physical Exam Const Constitutional Narrative: Arousable. Answers questions appropriately HEENT normocephalic Eyes no scleral icterus Resp normal respiratory effort Cardio regular rate Risk Stratification Risk Stratification Applicable: No Charges/Coding Visit Charges Inpatient E&M: 20141 Init Hosp L2 Objective Data Vital Signs: Vital Signs Temp Pulse Resp BP Pulse Ox O2 Del Method O2 Flow Rate 98.9 F 46 L 16 145/63 H 97 Nasal Cannula 2 01/22/23 16:00 01/22/23 16:00 01/22/23 16:00 01/22/23 16:00 01/22/23 16:00 01/22/23 16:00 01/22/23 16:00 Oxygen Flow Rate (L/min) 2 Oxygen Delivery Method Nasal Cannula Weight: 216 lb 7.903 oz Body Mass Index (BMI) 29.3 Intake & Output: Intake and Output for Last 24 Hours 01/20/23 01/21/23 01/22/23 23:59 23:59 23:59 Intake Total 2626.50 / 2626.50 Output Total 1000 / 1500 6300 / 6300 Balance -1000 / -1500 -3673.50 / -3673.50 Lab / Micro Data 01/22/23 03:10 01/22/23 11:05 Labs: Laboratory Results - last 24 hr 01/21/23 18:00: WBC 12.6 H, RBC 3.62 L, Hgb 12.1 L, Hct 35.0 L, MCV 96.7 H, MCH 33.4 H, MCHC 34.6, RDW Std Deviation 50.7 H, RDW Coeff of Fredi 14.1, Plt Count 260, MPV 9.5, Immature Gran % (Auto) 1.400 H, Neut % (Auto) 81.4 H, Lymph % (Auto) 10.1 L, [place] % (Auto) 6.5, Eos % (Auto) 0.3, Baso % (Auto) 0.3, Absolute Neuts (auto) 10.2 H, Absolute Lymphs (auto) 1.27, Nucleated RBC % 0, PT 14.0, INR 1.1, Sodium 102 L*, Potassium 3.7, Chloride 64 L*, Carbon Dioxide 18.0 L, Anion Gap 20 H, BUN 7, Creatinine 0.90, Estim Creat Clear Calc 81.38, Est GFR (MDRD) Af Amer 106, Est GFR (MDRD) Non-Af 88, BUN/Creatinine Ratio 7.8 L, Glucose 152 H, Lactic Acid 4.9 H*, Uric Acid 6.5, Calcium 8.3 L, Total Bilirubin 1.60 H, AST 30, ALT 20, Alkaline Phosphatase 145 H, Troponin I High Sens 53, B-Natriuretic Peptide 281.9 H, Total Protein 7.6, Albumin 3.3, Globulin 4.3 H, Albumin/Globulin Ratio 0.8 L 01/21/23 18:25: Urine Color Yellow, Urine Clarity Sl. Cloudy, Urine pH 6.5, Ur Specific [place] 1.010, Urine Protein 30 H, Urine Glucose (UA) Normal, Urine Ketones 5 H, Urine Occult Blood 10 H, Urine Nitrite Negative, Urine Bilirubin Negative, Urine Urobilinogen 1 H, Ur Leukocyte Esterase Negative, Urine RBC 0-5 SEEN, Urine WBC 0 SEEN, Ur Squamous Epith Cells 0-5 SEEN, Amorphous Sediment 1+ URATE, Urine Bacteria 0 SEEN, Urine Mucus 0 SEEN 01/21/23 20:20: Serum Osmolality 216 L 01/21/23 21:20: Sodium 104 L*, Potassium 3.4 L, Chloride 63 L*, Carbon Dioxide 27.0, Anion Gap 14, BUN 7, Creatinine 0.56 L, Estim Creat Clear Calc 71.13, Est GFR (MDRD) Af Amer 183, Est GFR (MDRD) Non-Af 151, BUN/Creatinine Ratio 12.5, Glucose 119 H, Lactic Acid 1.1, Calcium 8.4 L 01/21/23 21:26: Urine Osmolality 236, Ur Random Sodium 36 01/22/23 03:10: WBC 10.1, RBC 3.09 L, Hgb 10.5 L, Hct 29.1 L, MCV 94.2 H, MCH 34.0 H, MCHC 36.1 H, RDW Std Deviation 48.0 H, RDW Coeff of Fredi 13.8, Plt Count 204, MPV 8.7, Immature Gran % (Auto) 0.500, Neut % (Auto) 82.0 H, Lymph % (Auto) 7.4 L, [place] % (Auto) 9.6, Eos % (Auto) 0.3, Baso % (Auto) 0.2, Absolute Neuts (auto) 8.3 H, Absolute Lymphs (auto) 0.74 L, Nucleated RBC % 0, Sodium 113 L*, Potassium 3.2 L, Chloride 75 L, Carbon Dioxide 30.0, Anion Gap 8, BUN 5 L, Creatinine 0.41 L, Estim Creat Clear Calc 71.13, Est GFR (MDRD) Af Amer 265, Est GFR (MDRD) Non-Af 219, BUN/Creatinine Ratio 12.3, Glucose 95, Calcium 8.1 L, Phosphorus 2.6, Magnesium 1.7, Total Bilirubin 1.30 H, AST 28, ALT 18, Alkaline Phosphatase 119 H, Total Protein 6.4, Albumin 2.9 L, Globulin 3.5, Albumin/ Globulin Ratio 0.8 L, TSH 0.56 01/22/23 07:29: POC Glucose 86 01/22/23 11:05: Sodium 112 L*, Potassium 3.4 L, Chloride 77 L, Carbon Dioxide 30.0, Anion Gap 5, BUN 4 L, Creatinine 0.50 L, Estim Creat Clear Calc 71.13, Est GFR (MDRD) Af Amer 210, Est GFR (MDRD) Non-Af 173, BUN/Creatinine Ratio 8.0 L, Glucose 197 H, Calcium 8.1 L Rhythm Strip Rhythm Strip: Bradycardia Rate: 56 Cardiology Labs/Tests 01/21/23 18:00: WBC 12.6 H, RBC 3.62 L, Hgb 12.1 L, Hct 35.0 L, MCV 96.7 H, MCH 33.4 H, MCHC 34.6, Plt Count 260, MPV 9.5, Immature Gran % (Auto) 1.400 H, Neut % (Auto) 81.4 H, Lymph % (Auto) 10.1 L, [place] % (Auto) 6.5, Eos % (Auto) 0.3, Baso % (Auto) 0.3, Absolute Neuts (auto) 10.2 H, Nucleated RBC % 0, PT 14.0, INR 1.1, Sodium 102 L*, Potassium 3.7, Chloride 64 L*, Carbon Dioxide 18.0 L, Anion Gap 20 H, BUN 7, Creatinine 0.90, Est GFR (MDRD) Af Amer 106, Est GFR (MDRD) Non-Af 88, BUN/Creatinine Ratio 7.8 L, Glucose 152 H, Lactic Acid 4.9 H*, Uric Acid 6.5, Calcium 8.3 L, Total Bilirubin 1.60 H, B-Natriuretic Peptide 281.9 H 01/21/23 18:25: Urine Color Yellow, Urine Clarity Sl. Cloudy, Urine pH 6.5, Ur Specific [place] 1.010, Urine Protein 30 H, Urine Glucose (UA) Normal, Urine Ket ones 5 H, Urine Occult Blood 10 H, Urine Nitrite Negative, Urine Bilirubin Negative, Urine Urobilinogen 1 H, Ur Leukocyte Esterase Negative, Urine RBC 0-5 SEEN, Urine WBC 0 SEEN 01/21/23 20:20: Serum Osmolality 216 L 01/21/23 21:20: Sodium 104 L*, Potassium 3.4 L, Chloride 63 L*, Carbon Dioxide 27.0, Anion Gap 14, BUN 7, Creatinine 0.56 L, Est GFR (MDRD) Af Amer 183, Est GFR (MDRD) Non-Af 151, BUN/Creatinine Ratio 12.5, Glucose 119 H, Lactic Acid 1.1, Calcium 8.4 L 01/22/23 03:10: WBC 10.1, RBC 3.09 L, Hgb 10.5 L, Hct 29.1 L, MCV 94.2 H, MCH 34.0 H, MCHC 36.1 H, Plt Count 204, MPV 8.7, Immature Gran % (Auto) 0.500, Neut % (Auto) 82.0 H, Lymph % (Auto) 7.4 L, [place] % (Auto) 9.6, Eos % (Auto) 0.3, Baso % (Auto) 0.2, Absolute Neuts (auto) 8.3 H, Nucleated RBC % 0, Sodium 113 L*, Potassium 3.2 L, Chloride 75 L, Carbon Dioxide 30.0, Anion Gap 8, BUN 5 L, Creatinine 0.41 L, Est GFR (MDRD) Af Amer 265, Est GFR (MDRD) Non-Af 219, BUN/Creatinine Ratio 12.3, Glucose 95, Calcium 8.1 L, Phosphorus 2.6, Magnesium 1.7, Total Bilirubin 1.30 H 01/22/23 11:05: Sodium 112 L*, Potassium 3.4 L, Chloride 77 L, Carbon Dioxide 30.0, Anion Gap 5, BUN 4 L, Creatinine 0.50 L, Est GFR (MDRD) Af Amer 210, Est GFR (MDRD) Non-Af 173, BUN/Creatinine Ratio 8.0 L, Glucose 197 H, Calcium 8.1 L Rhythm: EKG: ECHO: Stress Test: Cardiac Cath: PCI: CT Surgery: Holter monitor: EPS: PPM: CXR: Chest CT Scan: Radiography Diagnostic Testing: Radiology Impression Tibia/Fibula X-Ray 01/21/23 17:56 IMPRESSION: No evidence of fracture. Electronically Signed: Sara Crenshaw MD at 19:03 EDT , Chest X-Ray 01/21/23 18:35 IMPRESSION: Stable bibasilar opacities likely scarring or interstitial disease. No consolidation. Electronically Signed: Sara Crenshaw MD at 19:01 EDT ,
[2023-01-22 16:32] LABS: Anion Gap 6 (5-15); BUN 3 mg/dL (7-18); BUN/Creat Ratio 6.7 RATIO (10-20); Calcium,Total 7.3 mg/dL (8.5-10.1); Chloride 80 mmol/L (98-107); Creatinine, Serum 0.45 mg/dL (0.70-1.30); EST Glomerular Filtration Rate 195 mL/min (>60); Est Glom Filt Rate - Afr Amer 236 mL/min (>60); Estimated Creatinine Clearance 71.13 ml/min; Glucose 190 mg/dL (74-106); Potassium 3.3 mmol/L (3.5-5.1); Sodium Level 112 mmol/L (136-145)
[2023-01-22] MEDS: Juven (unflavored) Packet 1 PACKET PO (17:30)
[2023-01-22] MEDS: Ipratropium/Albuterol Sulfate 3 ML AMPUL.NEB INHALATION (19:46)
--- NOTE | 2023-01-22 19:47 | PCM.PN.HOSP ---
Reason for Visit Reason for Visit: Diagnoses Hypo-osmolality and hyponatremia (01/21/23) Torsades de pointes (01/21/23) Peripheral vascular disease, unspecified (01/21/23) Chronic obstructive pulmonary disease with (acute) exacerbation (01/21/23) Pressure ulcer of unspecified site, stage 1 (01/21/23) Bradycardia, unspecified (01/21/23) Difficulty in walking, not elsewhere classified (01/21/23) Weakness (01/21/23) Other specified abnormal findings of blood chemistry (01/21/23) Unspecified fall, initial encounter (01/21/23) Subjective Subjective Seen and examined today, I talked with critical care who administered D5 W today due to concerns that the patient was becoming confused due to overcorrection of his sodium. At the time of my examination this morning, patient was alert and responded appropriately to questions, he told me that he drinks on a daily basis-4-5 beers a day, he requests being given beer in the hospital because I am an alcoholic. Patient's sodium this morning was 113, repeat sodiums today were 112. I talked with nephrology today and they have seen the patient before and will see him in consultation. At this time, nephrology will be handling fluid administration. Objective Data Objective Data Vital Signs: Vital Signs Temp Pulse Resp BP Pulse Ox O2 Del Method O2 Flow Rate 98.9 F 41 L 19 H 139/49 H 99 Nasal Cannula 2 01/22/23 18:00 01/22/23 18:00 01/22/23 18:00 01/22/23 18:00 01/22/23 18:00 01/22/23 18:00 01/22/23 18:00 Oxygen Flow Rate (L/min) 2 Oxygen Delivery Method Nasal Cannula Weight: 98.2 kg Body Mass Index (BMI) 29.3 Intake & Output: Intake and Output for Last 24 Hours 01/20/23 01/21/23 01/22/23 23:59 23:59 23:59 Intake Total 2946.50 / 2946.50 Output Total 1000 / 1500 6700 / 6700 Balance -1000 / -1500 -3753.50 / -3753.50 Lab / Micro Data 01/22/23 03:10 01/23/23 08:00 Labs: Laboratory Results - last 24 hr 01/21/23 18:00: Uric Acid 6.5 01/21/23 20:20: Serum Osmolality 216 L 01/21/23 21:20: Sodium 104 L*, Potassium 3.4 L, Chloride 63 L*, Carbon Dioxide 27.0, Anion Gap 14, BUN 7, Creatinine 0.56 L, Estim Creat Clear Calc 71.13, Est GFR (MDRD) Af Amer 183, Est GFR (MDRD) Non-Af 151, BUN/Creatinine Ratio 12.5, Glucose 119 H, Lactic Acid 1.1, Calcium 8.4 L 01/21/23 21:26: Urine Osmolality 236, Ur Random Sodium 36 01/22/23 03:10: WBC 10.1, RBC 3.09 L, Hgb 10.5 L, Hct 29.1 L, MCV 94.2 H, MCH 34.0 H, MCHC 36.1 H, RDW Std Deviation 48.0 H, RDW Coeff of Fredi 13.8, Plt Count 204, MPV 8.7, Immature Gran % (Auto) 0.500, Neut % (Auto) 82.0 H, Lymph % (Auto) 7.4 L, [place] % (Auto) 9.6, Eos % (Auto) 0.3, Baso % (Auto) 0.2, Absolute Neuts (auto) 8.3 H, Absolute Lymphs (auto) 0.74 L, Nucleated RBC % 0, Sodium 113 L*, Potassium 3.2 L, Chloride 75 L, Carbon Dioxide 30.0, Anion Gap 8, BUN 5 L, Creatinine 0.41 L, Estim Creat Clear Calc 71.13, Est GFR (MDRD) Af Amer 265, Est GFR (MDRD) Non-Af 219, BUN/Creatinine Ratio 12.3, Glucose 95, Calcium 8.1 L, Phosphorus 2.6, Magnesium 1.7, Total Bilirubin 1.30 H, AST 28, ALT 18, Alkaline Phosphatase 119 H, Total Protein 6.4, Albumin 2.9 L, Globulin 3.5, Albumin/Globulin Ratio 0.8 L, TSH 0.56 01/22/23 07:29: POC Glucose 86 01/22/23 11:05: Sodium 112 L*, Potassium 3.4 L, Chloride 77 L, Carbon Dioxide 30.0, Anion Gap 5, BUN 4 L, Creatinine 0.50 L, Estim Creat Clear Calc 71.13, Est GFR (MDRD) Af Amer 210, Est GFR (MDRD) Non-Af 173, BUN/Creatinine Ratio 8.0 L, Glucose 197 H, Calcium 8.1 L 01/22/23 16:00: Sodium 112 L*, Potassium 3.3 L, Chloride 80 L, Carbon Dioxide 26.0, Anion Gap 6, BUN 3 L, Creatinine 0.45 L, Estim Creat Clear Calc 71.13, Est GFR (MDRD) Af Amer 236, Est GFR (MDRD) Non-Af 195, BUN/Creatinine Ratio 6.7 L, Glucose 190 H, Calcium 7.3 L Radiography Diagnostic Testing: Radiology Impression Tibia/Fibula X-Ray 01/21/23 17:56 IMPRESSION: No evidence of fracture. Electronically Signed: Sara Crenshaw MD at 19:03 EDT Reading Location ID and State: [facility] [place] / [place] Tel , Service support , Chest X-Ray 01/21/23 18:35 IMPRESSION: Stable bibasilar opacities likely scarring or interstitial disease. No consolidation. Electronically Signed: Sara Crenshaw MD at 19:01 EDT Reading Location ID and State: [facility] [place] / [place] Tel , Service support , Rhythm Strip Rhythm Strip: Bradycardia Rate: 56 Physical Exam Const alert, no apparent distress and average body habitus General Appearance: cooperative, well kempt and well developed Orientation / Consciousness: awake, oriented to person and oriented to place HEENT normocephalic, head/scalp atraumatic and moist oral mucous membranes Eyes PERRL, EOMs intact bilaterally and conjunctivae normal Neck supple, no JVD, thyroid normal and no carotid bruits General: trachea midline Resp normal respiratory effort, no retractions, no use of accessory muscles and clear to auscultation bilaterally Auscultation: Negative for rales, rhonchi or wheezes Cardio regular rate, regular rhythm, S1 normal heart sound, S2 normal heart sound, no murmurs, no rub and no gallops GI normal to inspection, nondistended, normoactive bowel sounds, soft to palpation, non-tender and non-distended Extremity no clubbing, cyanosis or edema Skin no rashes or lesions noted General Skin Exam: no breakdown Neuro CN's II-XII intact bilaterally, moves all extremities, no focal motor deficits and no sensory deficits noted Sensorium / Orientation: awake, alert, oriented to person and oriented to place Speech: speech normal Psych affect normal Assessment & Plan Assessment/Plan (1) Hyponatremia: (2) Acute hyponatremia: PLAN: Plan 1. Acute hyponatremia-I have consulted nephrology for management of the patient's fluids, case was discussed also with critical care this morning #2 cardiac arrhythmia-there are strips noted on the patient which appeared to be torsades, he is now on a junctional rhythm, cardiology will see him in consultation #3 hypokalemia-patient received potassium replacement, labs will be monitored #4 suspected alcohol abuse-patient was placed on beer with each meal, he will be monitored for signs of withdrawal #5 hyperlipidemia-patient is on atorvastatin #6 essential hypertension-patient will remain on his medications #7 adenocarcinoma left lung-patient states he has had radiation treatment, he does not know his oncologist's name #8 chronic obstructive pulmonary disease-patient is stable at this time, pulse ox will be monitored #9 bipolar disorder-patient's home med needs to be verified, it appears he was on Zyprexa 1 time Total clinical time spent by myself addressing the patient's medical issues, reviewing all of his data, and collaborating with patient's care team: 50 minutes Charges/Coding Visit Charges Inpatient E&M: 98053 Subs Hosp L3
[2023-01-22] MEDS: Potassium Chloride Oral Tablet 20 MEQ 40 MEQ PO (21:09)
[2023-01-22 22:59] LABS: Anion Gap 9 (5-15); BUN 8 mg/dL (7-18); BUN/Creat Ratio 16.2 RATIO (10-20); Calcium,Total 8.5 mg/dL (8.5-10.1); Chloride 73 mmol/L (98-107); EST Glomerular Filtration Rate 174 mL/min (>60); Est Glom Filt Rate - Afr Amer 211 mL/min (>60); Estimated Creatinine Clearance 71.13 ml/min; Glucose 163 mg/dL (74-106); Potassium 3.8 mmol/L (3.5-5.1); Sodium Level 110 mmol/L (136-145)
[2023-01-22] MEDS: CHLORHEXIDINE GLUC 2% CLOTH 1 EACH TOWELETTE TOPICAL (23:30)
[2023-01-23] VITALS (29 sets, daily range): BP systolic 114–164; BP diastolic 45–118; PULSE 33–47; RESP 13–25; TEMP 36.7–37.3; O2SAT 92–100; BMI 29.7
[2023-01-23 01:08] LABS: Anion Gap 6 (5-15); BUN 8 mg/dL (7-18); BUN/Creat Ratio 20.9 RATIO (10-20); Calcium,Total 8.3 mg/dL (8.5-10.1); Chloride 73 mmol/L (98-107); Creatinine, Serum 0.38 mg/dL (0.70-1.30); EST Glomerular Filtration Rate 235 mL/min (>60); Est Glom Filt Rate - Afr Amer 284 mL/min (>60); Estimated Creatinine Clearance 71.13 ml/min; Glucose 141 mg/dL (74-106); Sodium Level 110 mmol/L (136-145)
[2023-01-23] MEDS: 0.9% Saline Lock 10 ML Syringe IV ×5 (05:18→23:41)
[2023-01-23] MEDS: Methylprednisolone Sod Succ 40 MG/ML VIAL IV ×3 (05:19→20:05)
[2023-01-23 06:46] LABS: Anion Gap 6 (5-15); BUN 8 mg/dL (7-18); BUN/Creat Ratio 19.4 RATIO (10-20); Calcium,Total 8.8 mg/dL (8.5-10.1); Chloride 74 mmol/L (98-107); Creatinine, Serum 0.41 mg/dL (0.70-1.30); EST Glomerular Filtration Rate 216 mL/min (>60); Est Glom Filt Rate - Afr Amer 261 mL/min (>60); Estimated Creatinine Clearance 71.13 ml/min; Glucose 137 mg/dL (74-106); Potassium 4.2 mmol/L (3.5-5.1); Sodium Level 111 mmol/L (136-145)
[2023-01-23] MEDS: Ipratropium/Albuterol Sulfate 3 ML AMPUL.NEB INHALATION ×4 (07:13→19:58)
--- NOTE | 2023-01-23 07:34 | PN.CC_ITS ---
Assessment & Plan Assessment/Plan (1) Acute hyponatremia: PLAN: Sodium was steady today at 111. His mental status is recovered, therefore I believe danger of pontine myelinolysis yesterday is passed. We can continue with slow steady improvement in his sodium at 8 points per day with a goal today of 119. Beer potomania could certainly contribute, I have discontinued the beer ordered by primary care, and substitute of the [facility] protocol. He has no signs or symptoms of alcohol withdrawal at this time. Will monitor closely. - Start normal saline at 50 cc/h. 3% saline is not indicated as he is is asymptomatic now. - Nephrology consult requested and appreciated. - BMP every 4 hours - No further arrhythmias, no torsade de pointes. Potassium was supplemented and normal today. (2) Acute exacerbation of chronic obstructive pulmonary disease: PLAN: Patient is actively smoking 2 packs/day is and on oxygen. - Methylprednisolone IV 40 mg every 8 hours - Continue DuoNeb scheduled every 4 hours. (3) Elevated lactic acid level: PLAN: No metabolic acidosis on BMP. Resolved. (4) Skin tear: PLAN: Management per hospitalist team Routine wound care (5) Generalized weakness: PLAN: Management per hospitalist team PT, OT (6) PVD (peripheral vascular disease): PLAN: Stable, continue current treatment No active ischemia. (7) Stage I decubitus ulcer and pressure area: PLAN: Local care PLAN: Plan Thank you for consulting [facility] on your pleasant patient. We will follow him with you while he is in the ICU. He remains critically ill due to his sodium of 111 today. Critical care time spent with patient at bedside, review of documentation, lab results, radiology and other test results, discussion with colleagues and ancillary staff, clinical management of patient, and updating family if applicable, was 35 minutes. This time does not include any procedures, if performed. [place] [address] Subjective Subjective Patient feels back to normal. No complaints of dizziness, fevers chills sweats or cough. He is still wheezing. He remains bradycardic in the 30s to 40s with normal blood pressure and good mentation. Alert and oriented x3. He thinks the nebulizer treatments helped his wheezing. Main complaint today is back pain and would like to get up in a chair ANDRÉS, eat some food, he is drinking 3 beers per day ordered by primary care. He usually drinks 8 beers a day at home. Sodium today is 111 after D5 boluses yesterday. He will return to normal saline at 50 cc/h, stop the beers and go on CIWA protocol. Maximum goal sodium today is 119. I have reordered every 4 hour BMPs to assure good rate of correction. Objective Data Objective Data Vital Signs: Vital Signs Temp Pulse Resp BP Pulse Ox O2 Del Method O2 Flow Rate 98.3 F 42 L 19 H 130/58 H 95 Nasal Cannula 2 01/23/23 06:00 01/23/23 07:15 01/23/23 07:15 01/23/23 06:00 01/23/23 07:14 01/23/23 07:14 01/23/23 07:14 Oxygen Flow Rate (L/min) 2 Oxygen Delivery Method Nasal Cannula Weight: 219 lb 12.814 oz Body Mass Index (BMI) 29.7 Intake & Output: Intake and Output for Last 24 Hours 01/21/23 01/22/23 01/23/23 23:59 23:59 23:59 Intake Total 2946.50 / 2946.50 Output Total 1000 / 1500 7100 / 7100 Balance -1000 / -1500 -4153.50 / -4153.50 No maintenance fluid at this time. Normal saline at 50 cc/h was started. Lab / Micro Data Attestation: I reviewed the patient's lab results. 01/22/23 03:10 01/23/23 06:15 Labs: Laboratory Results - last 24 hr 01/22/23 07:29: POC Glucose 86 01/22/23 11:05: Sodium 112 L*, Potassium 3.4 L, Chloride 77 L, Carbon Dioxide 30.0, Anion Gap 5, BUN 4 L, Creatinine 0.50 L, Estim Creat Clear Calc 71.13, Est GFR (MDRD) Af Amer 210, Est GFR (MDRD) Non-Af 173, BUN/Creatinine Ratio 8.0 L, Glucose 197 H, Calcium 8.1 L 01/22/23 16:00: Sodium 112 L*, Potassium 3.3 L, Chloride 80 L, Carbon Dioxide 26.0, Anion Gap 6, BUN 3 L, Creatinine 0.45 L, Estim Creat Clear Calc 71.13, Est GFR (MDRD) Af Amer 236, Est GFR (MDRD) Non-Af 195, BUN/Creatinine Ratio 6.7 L, Glucose 190 H, Calcium 7.3 L 01/22/23 21:20: Sodium 110 L*, Potassium 3.8, Chloride 73 L*, Carbon Dioxide 28.0, Anion Gap 9, BUN 8, Creatinine 0.50 L, Estim Creat Clear Calc 71.13, Est GFR (MDRD) Af Amer 211, Est GFR (MDRD) Non-Af 174, BUN/Creatinine Ratio 16.2, Glucose 163 H, Calcium 8.5 01/23/23 00:25: Sodium 110 L*, Potassium 4.0, Chloride 73 L*, Carbon Dioxide 31.0, Anion Gap 6, BUN 8, Creatinine 0.38 L, Estim Creat Clear Calc 71.13, Est GFR (MDRD) Af Amer 284, Est GFR (MDRD) Non-Af 235, BUN/Creatinine Ratio 20.9 H, Glucose 141 H, Calcium 8.3 L 01/23/23 04:30: Sodium Cancelled, Potassium Cancelled, Chloride Cancelled, Carbon Dioxide Cancelled, Anion Gap Cancelled, BUN Cancelled, Creatinine Cancelled, Estim Creat Clear Calc Cancelled, Est GFR (MDRD) Af Amer Cancelled, Est GFR (MDRD) Non-Af Cancelled, BUN/Creatinine Ratio Cancelled, Glucose Cancelled, Calcium Cancelled 01/23/23 05:15: Sodium Cancelled, Potassium Cancelled, Chloride Cancelled, Carbon Dioxide Cancelled, Anion Gap Cancelled, BUN Cancelled, Creatinine Cancelled, Estim Creat Clear Calc Cancelled, Est GFR (MDRD) Af Amer Cancelled, Est GFR (MDRD) Non-Af Cancelled, BUN/Creatinine Ratio Cancelled, Glucose Cance lled, Calcium Cancelled 01/23/23 06:15: Sodium 111 L*, Potassium 4.2, Chloride 74 L*, Carbon Dioxide 31.0, Anion Gap 6, BUN 8, Creatinine 0.41 L, Estim Creat Clear Calc 71.13, Est GFR (MDRD) Af Amer 261, Est GFR (MDRD) Non-Af 216, BUN/Creatinine Ratio 19.4, Glucose 137 H, Calcium 8.8 Radiography Diagnostic Testing: RAD/Chest 1 View (Portable) IMPRESSION: Stable bibasilar opacities likely scarring or interstitial disease. No consolidation. Electronically Signed: Sara Crenshaw MD at 19:01 EDT My review of PET CT scan May 2022 showed no recurrent viable tumor. There was persistent right lower lobe infiltrate with submalignant uptake, likely inflammatory. A follow-up PET CT scan was ordered in a 3-month interval. Rhythm Strip Rhythm Strip: Bradycardia Rate: 56 Physical Exam Narrative Well-developed, pasty appearing man with alopecia who was awake, verbal, appropriate, alert and oriented x3. HEENT: Normocephalic atraumatic pupils are equal and reactive mucous membranes are moist no obvious bleeding Neck is supple. Lungs have diffuse expiratory wheezing in all lung farley with better air movement, improved from yesterday.. No crackles, He had no cough during deep breathing for today's visit. Heart normal S1-S2 with no murmurs rubs or gallops, rhythm is junctional in the 30s to 40s on the monitor. No symptoms of dizziness. Abdomen is soft, nontender. Pichardo has mild hematuria and cloudy urine. Extremities have chronic venous stasis changes bilaterally, chronic arterial insufficiency changes, but otherwise warm and dry. Some healed eschars on the toes. The upper shins are wrapped. Neurologic exam is grossly nonfocal he follows commands, raises his arms. Holds his coffee without difficulty. Charges/Coding Procedures Hospitalists Procedures: 61680 Critial Care 1st Hr
[2023-01-23] MEDS: HYDROcodone Bitartrate/Apap 5/325 Tablet PO ×3 (07:51→20:05)
[2023-01-23] MEDS: 0.9% Normal Saline 1,000 ML 50 ML IV (07:51)
[2023-01-23] MEDS: Juven (unflavored) Packet 1 PACKET PO ×2 (07:52→16:23)
[2023-01-23 08:25] LABS: Anion Gap 8 (5-15); BUN 7 mg/dL (7-18); BUN/Creat Ratio 16.2 RATIO (10-20); Calcium,Total 8.9 mg/dL (8.5-10.1); Chloride 73 mmol/L (98-107); Creatinine, Serum 0.43 mg/dL (0.70-1.30); EST Glomerular Filtration Rate 205 mL/min (>60); Est Glom Filt Rate - Afr Amer 248 mL/min (>60); Estimated Creatinine Clearance 71.13 ml/min; Glucose 140 mg/dL (74-106); Potassium 4.2 mmol/L (3.5-5.1); Sodium Level 110 mmol/L (136-145)
--- NOTE | 2023-01-23 09:08 | CASEMGMT ---
Discharge Planning SNF list created and given to SW. Radha Means, Discharge Planning Asst.
[2023-01-23] MEDS: CHLORHEXIDINE GLUC 2% CLOTH 1 EACH TOWELETTE TOPICAL (09:23)
[2023-01-23] MEDS: Enoxaparin 40 MG/0.4 ML Syringe SC (09:23)
[2023-01-23] MEDS: Aspirin E.C. 81 MG Tablet PO (10:25)
[2023-01-23] MEDS: Folic Acid 1 MG Tablet PO (10:25)
[2023-01-23] MEDS: Furosemide 40 MG Tablet PO ×2 (10:25→17:21)
[2023-01-23] MEDS: Thiamine Hydrochloride 100 MG Tablet PO (10:25)
[2023-01-23] MEDS: Pantoprazole Sodium 20 MG Tablet PO (10:25)
--- NOTE | 2023-01-23 10:55 | CASEMGMT ---
AMY called [facility] and patient's piano case and bench assembler is David Grant ([phone]). Patient has a lifeline button and 5 meals a week. Patient has been approved for personal care service9 hours a week. However, they cannot find any providers. AMY noticed patient is also active with [facility] AMY called [facility] and spoke with AMY Sandoval. Jaime said patient was recently set up with their home based primary care program. This team includes a physician, nurse, and social and political studies professor. Patient also has home health aides 14 hours a week through [facility]. Comfort Minor ENVIRONMENTAL DIRECTOR SOHEILA
[2023-01-23] MEDS: Losartan Potassium 50 MG Tablet PO (11:29)
--- NOTE | 2023-01-23 12:12 | PCM.PN.REN ---
Subjective Subjective No new complaints today Objective Data Objective Data Vital Signs: Vital Signs Temp Pulse Resp BP Pulse Ox O2 Del Method O2 Flow Rate 98.8 F 40 L 19 H 164/58 H 96 Nasal Cannula 2 01/23/23 12:00 01/23/23 12:00 01/23/23 12:00 01/23/23 12:00 01/23/23 12:00 01/23/23 12:00 01/23/23 12:00 Oxygen Flow Rate (L/min) 2 Oxygen Delivery Method Nasal Cannula Weight: 99.7 kg Body Mass Index (BMI) 29.7 Intake & Output: Intake and Output for Last 24 Hours 01/21/23 01/22/23 01/23/23 23:59 23:59 23:59 Intake Total 2946.50 / 2946.50 260 / 260 Output Total 1000 / 1500 7100 / 7100 400 / 400 Balance -1000 / -1500 -4153.50 / -4153.50 -140 / -140 Lab / Micro Data 01/22/23 03:10 01/23/23 08:00 Labs: Laboratory Results - last 24 hr 01/22/23 16:00: Sodium 112 L*, Potassium 3.3 L, Chloride 80 L, Carbon Dioxide 26.0, Anion Gap 6, BUN 3 L, Creatinine 0.45 L, Estim Creat Clear Calc 71.13, Est GFR (MDRD) Af Amer 236, Est GFR (MDRD) Non-Af 195, BUN/Creatinine Ratio 6.7 L, Glucose 190 H, Calcium 7.3 L 01/22/23 21:20: Sodium 110 L*, Potassium 3.8, Chloride 73 L*, Carbon Dioxide 28.0, Anion Gap 9, BUN 8, Creatinine 0.50 L, Estim Creat Clear Calc 71.13, Est GFR (MDRD) Af Amer 211, Est GFR (MDRD) Non-Af 174, BUN/Creatinine Ratio 16.2, Glucose 163 H, Calcium 8.5 01/23/23 00:25: Sodium 110 L*, Potassium 4.0, Chloride 73 L*, Carbon Dioxide 31.0, Anion Gap 6, BUN 8, Creatinine 0.38 L, Estim Creat Clear Calc 71.13, Est GFR (MDRD) Af Amer 284, Est GFR (MDRD) Non-Af 235, BUN/Creatinine Ratio 20.9 H, Glucose 141 H, Calcium 8.3 L 01/23/23 04:30: Sodium Cancelled, Potassium Cancelled, Chloride Cancelled, Carbon Dioxide Cancelled, Anion Gap Cancelled, BUN Cancelled, Creatinine Cancelled, Estim Creat Clear Calc Cancelled, Est GFR (MDRD) Af Amer Cancelled, Est GFR (MDRD) Non-Af Cancelled, BUN/Creatinine Ratio Cancelled, Glucose Cancelled, Calcium Cancelled 01/23/23 05:15: Sodium Cancelled, Potassium Cancelled, Chloride Cancelled, Carbon Dioxide Cancelled, Anion Gap Cancelled, BUN Cancelled, Creatinine Cancelled, Estim Creat Clear Calc Cancelled, Est GFR (MDRD) Af Amer Cancelled, Est GFR (MDRD) Non-Af Cancelled, BUN/Creatinine Ratio Cancelled, Glucose Cancelled, Calcium Cancelled 01/23/23 06:15: Sodium 111 L*, Potassium 4.2, Chloride 74 L*, Carbon Dioxide 31.0, Anion Gap 6, BUN 8, Creatinine 0.41 L, Estim Creat Clear Calc 71.13, Est GFR (MDRD) Af Amer 261, Est GFR (MDRD) Non-Af 216, BUN/Creatinine Ratio 19.4, Glucose 137 H, Calcium 8.8 01/23/23 08:00: Sodium 110 L*, Potassium 4.2, Chloride 73 L*, Carbon Dioxide 29.0, Anion Gap 8, BUN 7, Creatinine 0.43 L, Estim Creat Clear Calc 71.13, Est GFR (MDRD) Af Amer 248, Est GFR (MDRD) Non-Af 205, BUN/Creatinine Ratio 16.2, Glucose 140 H, Calcium 8.9 Rhythm Strip Rhythm Strip: Bradycardia Rate: 56 Physical Exam Narrative Alert awake no obvious distress no pallor no icterus no JVD s1s2 no murmurs lungs clear abdomen soft no organomegaly no edema no cyanosis wade + Assessment & Plan Assessment/Plan (1) Acute hyponatremia: PLAN: He does have previous history of hyponatremia. History of smoking. History of alcohol use. Came in with a sodium of 102. Likely due to beer potomania. Urine sodium and urine osmolality are high but it is possible these were drawn after he received IV fluids. Sodium remains around 110. Last dose of desmopressin was yesterday morning. Okay for low-dose normal saline today. Maintain fluid restriction for today. Monitor urine output closely. If urine output increases significantly, we will repeat a dose of desmopressin. Discussed with ICU staff.
[2023-01-23 13:01] LABS: Anion Gap 6 (5-15); BUN 11 mg/dL (7-18); BUN/Creat Ratio 23.8 RATIO (10-20); Calcium,Total 8.7 mg/dL (8.5-10.1); Chloride 74 mmol/L (98-107); Creatinine, Serum 0.46 mg/dL (0.70-1.30); EST Glomerular Filtration Rate 189 mL/min (>60); Est Glom Filt Rate - Afr Amer 229 mL/min (>60); Estimated Creatinine Clearance 71.13 ml/min; Glucose 181 mg/dL (74-106); Potassium 3.9 mmol/L (3.5-5.1); Sodium Level 110 mmol/L (136-145)
[2023-01-23] MEDS: Sodium Chloride 1 GM Tablet PO ×2 (13:16→20:05)
[2023-01-23] MEDS: Furosemide 20 MG/2 ML VIAL IV (13:24)
--- NOTE | 2023-01-23 14:38 | PN.CARD_ITS ---
Subjective Subjective Denies any cardiac complaints. He denies any history of symptoms that could be attributed to bradycardia such as dizziness, syncope etc. Objective Data Vital Signs: Vital Signs Temp Pulse Resp BP Pulse Ox O2 Del Method O2 Flow Rate 98.8 F 43 L 16 160/58 H 96 Nasal Cannula 2 01/23/23 12:00 01/23/23 14:00 01/23/23 14:00 01/23/23 14:00 01/23/23 14:00 01/23/23 14:00 01/23/23 14:00 Oxygen Flow Rate (L/min) 2 Oxygen Delivery Method Nasal Cannula Weight: 219 lb 12.814 oz Body Mass Index (BMI) 29.7 Intake & Output: Intake and Output for Last 24 Hours 01/21/23 01/22/23 01/23/23 23:59 23:59 23:59 Intake Total 2946.50 / 2946.50 529.17 / 529.17 Output Total 1000 / 1500 7100 / 7100 400 / 400 Balance -1000 / -1500 -4153.50 / -4153.50 129.17 / 129.17 Lab / Micro Data 01/22/23 03:10 01/23/23 12:15 Labs: Laboratory Results - last 24 hr 01/22/23 16:00: Sodium 112 L*, Potassium 3.3 L, Chloride 80 L, Carbon Dioxide 26.0, Anion Gap 6, BUN 3 L, Creatinine 0.45 L, Estim Creat Clear Calc 71.13, Est GFR (MDRD) Af Amer 236, Est GFR (MDRD) Non-Af 195, BUN/Creatinine Ratio 6.7 L, Glucose 190 H, Calcium 7.3 L 01/22/23 21:20: Sodium 110 L*, Potassium 3.8, Chloride 73 L*, Carbon Dioxide 28.0, Anion Gap 9, BUN 8, Creatinine 0.50 L, Estim Creat Clear Calc 71.13, Est GFR (MDRD) Af Amer 211, Est GFR (MDRD) Non-Af 174, BUN/Creatinine Ratio 16.2, Glucose 163 H, Calcium 8.5 01/23/23 00:25: Sodium 110 L*, Potassium 4.0, Chloride 73 L*, Carbon Dioxide 31.0, Anion Gap 6, BUN 8, Creatinine 0.38 L, Estim Creat Clear Calc 71.13, Est GFR (MDRD) Af Amer 284, Est GFR (MDRD) Non-Af 235, BUN/Creatinine Ratio 20.9 H, Glucose 141 H, Calcium 8.3 L 01/23/23 04:30: Sodium Cancelled, Potassium Cancelled, Chloride Cancelled, Carbon Dioxide Cancelled, Anion Gap Cancelled, BUN Cancelled, Creatinine Cancelled, Estim Creat Clear Calc Cancelled, Est GFR (MDRD) Af Amer Cancelled, Est GFR (MDRD) Non-Af Cancelled, BUN/Creatinine Ratio Cancelled, Glucose Cancelled, Calcium Cancelled 01/23/23 05:15: Sodium Cancelled, Potassium Cancelled, Chloride Cancelled, Carbon Dioxide Cancelled, Anion Gap Cancelled, BUN Cancelled, Creatinine Cancelled, Estim Creat Clear Calc Cancelled, Est GFR (MDRD) Af Amer Cancelled, Est GFR (MDRD) Non-Af Cancelled, BUN/Creatinine Ratio Cancelled, Glucose Cancelled, Calcium Cancelled 01/23/23 06:15: Sodium 111 L*, Potassium 4.2, Chloride 74 L*, Carbon Dioxide 31.0, Anion Gap 6, BUN 8, Creatinine 0.41 L, Estim Creat Clear Calc 71.13, Est GFR (MDRD) Af Amer 261, Est GFR (MDRD) Non-Af 216, BUN/Creatinine Ratio 19.4, Glucose 137 H, Calcium 8.8 01/23/23 08:00: Sodium 110 L*, Potassium 4.2, Chloride 73 L*, Carbon Dioxide 29.0, Anion Gap 8, BUN 7, Creatinine 0.43 L, Estim Creat Clear Calc 71.13, Est GFR (MDRD) Af Amer 248, Est GFR (MDRD) Non-Af 205, BUN/Creatinine Ratio 16.2, Glucose 140 H, Calcium 8.9 01/23/23 12:15: Sodium 110 L*, Potassium 3.9, Chloride 74 L*, Carbon Dioxide 30.0, Anion Gap 6, BUN 11, Creatinine 0.46 L, Estim Creat Clear Calc 71.13, Est GFR (MDRD) Af Amer 229, Est GFR (MDRD) Non-Af 189, BUN/Creatinine Ratio 23.8 H, Glucose 181 H, Calcium 8.7 Micro: Microbiology 01/21/23 20:20 Blood Culture (Wb) - Left Forearm Blood Culture - Preliminary No growth in 48 hours. 01/21/23 20:25 Blood Culture (Wb) - Right Forearm Blood Culture - Preliminar y No growth in 48 hours. Rhythm Strip Rhythm Strip: Bradycardia Rate: 56 Cardiology Labs/Tests 01/22/23 16:00: Sodium 112 L*, Potassium 3.3 L, Chloride 80 L, Carbon Dioxide 26.0, Anion Gap 6, BUN 3 L, Creatinine 0.45 L, Est GFR (MDRD) Af Amer 236, Est GFR (MDRD) Non-Af 195, BUN/Creatinine Ratio 6.7 L, Glucose 190 H, Calcium 7.3 L 01/22/23 21:20: Sodium 110 L*, Potassium 3.8, Chloride 73 L*, Carbon Dioxide 28.0, Anion Gap 9, BUN 8, Creatinine 0.50 L, Est GFR (MDRD) Af Amer 211, Est GFR (MDRD) Non-Af 174, BUN/Creatinine Ratio 16.2, Glucose 163 H, Calcium 8.5 01/23/23 00:25: Sodium 110 L*, Potassium 4.0, Chloride 73 L*, Carbon Dioxide 31.0, Anion Gap 6, BUN 8, Creatinine 0.38 L, Est GFR (MDRD) Af Amer 284, Est GFR (MDRD) Non-Af 235, BUN/Creatinine Ratio 20.9 H, Glucose 141 H, Calcium 8.3 L 01/23/23 04:30: Sodium Cancelled, Potassium Cancelled, Chloride Cancelled, Carbon Dioxide Cancelled, Anion Gap Cancelled, BUN Cancelled, Creatinine Cancelled, Est GFR (MDRD) Af Amer Cancelled, Est GFR (MDRD) Non-Af Cancelled, BUN/Creatinine Ratio Cancelled, Glucose Cancelled, Calcium Cancelled 01/23/23 05:15: Sodium Cancelled, Potassium Cancelled, Chloride Cancelled, Carbon Dioxide Cancelled, Anion Gap Cancelled, BUN Cancelled, Creatinine Cancelled, Est GFR (MDRD) Af Amer Cancelled, Est GFR (MDRD) Non-Af Cancelled, BUN/Creatinine Ratio Cancelled, Glucose Cancelled, Calcium Cancelled 01/23/23 06:15: Sodium 111 L*, Potassium 4.2, Chloride 74 L*, Carbon Dioxide 31.0, Anion Gap 6, BUN 8, Creatinine 0.41 L, Est GFR (MDRD) Af Amer 261, Est GFR (MDRD) Non-Af 216, BUN/Creatinine Ratio 19.4, Glucose 137 H, Calcium 8.8 01/23/23 08:00: Sodium 110 L*, Potassium 4.2, Chloride 73 L*, Carbon Dioxide 29.0, Anion Gap 8, BUN 7, Creatinine 0.43 L, Est GFR (MDRD) Af Amer 248, Est GFR (MDRD) Non-Af 205, BUN/Creatinine Ratio 16.2, Glucose 140 H, Calcium 8.9 01/23/23 12:15: Sodium 110 L*, Potassium 3.9, Chloride 74 L*, Carbon Dioxide 30.0, Anion Gap 6, BUN 11, Creatinine 0.46 L, Est GFR (MDRD) Af Amer 229, Est GFR (MDRD) Non-Af 189, BUN/Creatinine Ratio 23.8 H, Glucose 181 H, Calcium 8.7 Rhythm: EKG: ECHO: Stress Test: Cardiac Cath: PCI: CT Surgery: Holter monitor: EPS: PPM: CXR: Chest CT Scan: Physical Exam Const alert HEENT normocephalic Eyes no scleral icterus Resp normal respiratory effort Cardio regular rate Assessment & Plan Assessment/Plan (1) Bradycardia: PLAN: Patient denies having any symptoms due to his bradycardia. After correction of electrolyte abnormalities we will discuss options such as permanent pacemaker with the patient if clinically indicated at that time. (2) Torsades de pointes: PLAN: Patient's potassium was low. This was replaced. The torsades could have also been induced by the bradycardia. If patient has further episodes of torsades then recheck potassium and magnesium and also start the patient on low- dose dopamine drip to increase his heart rate. No further episodes since the 1 episode yesterday morning. Charges/Coding Visit Charges Inpatient E&M: 08071 Subs Hosp L2
--- NOTE | 2023-01-23 15:59 | CASEMGMT ---
SW spoke with patient as he did not do well with therapy. SW asked patient if he has considered going to a alf facility. Patient said he wants to go home. AMY and RN OANH will continue to follow. Per physician patient will be here through the weekend. Plan: To be determined. Comfort PARNELL
[2023-01-23 16:36] LABS: Anion Gap 10 (5-15); BUN 10 mg/dL (7-18); BUN/Creat Ratio 18.6 RATIO (10-20); Calcium,Total 8.6 mg/dL (8.5-10.1); Chloride 71 mmol/L (98-107); Creatinine, Serum 0.54 mg/dL (0.70-1.30); EST Glomerular Filtration Rate 158 mL/min (>60); Est Glom Filt Rate - Afr Amer 191 mL/min (>60); Estimated Creatinine Clearance 71.13 ml/min; Glucose 182 mg/dL (74-106); Potassium 3.5 mmol/L (3.5-5.1); Sodium Level 111 mmol/L (136-145)
--- NOTE | 2023-01-23 17:19 | PCM.PN.HOSP ---
Reason for Visit Reason for Visit: Diagnoses Hypo-osmolality and hyponatremia (01/21/23) Torsades de pointes (01/21/23) Peripheral vascular disease, unspecified (01/21/23) Chronic obstructive pulmonary disease with (acute) exacerbation (01/21/23) Pressure ulcer of unspecified site, stage 1 (01/21/23) Bradycardia, unspecified (01/21/23) Difficulty in walking, not elsewhere classified (01/21/23) Weakness (01/21/23) Other specified abnormal findings of blood chemistry (01/21/23) Unspecified fall, initial encounter (01/21/23) Subjective Subjective Patient was seen and examined today, his sodium is still low, I talked with critical care and nephrology about his care. I also discussed his care briefly with cardiology, cardiology does not feel he needs a pacemaker at this time. Objective Data Objective Data Vital Signs: Vital Signs Temp Pulse Resp BP Pulse Ox O2 Del Method O2 Flow Rate 98.9 F 44 L 19 H 154/59 H 97 Nasal Cannula 2 01/23/23 17:00 01/23/23 17:00 01/23/23 17:00 01/23/23 17:00 01/23/23 17:00 01/23/23 17:00 01/23/23 17:00 Oxygen Flow Rate (L/min) 2 Oxygen Delivery Method Nasal Cannula Weight: 99.7 kg Body Mass Index (BMI) 29.7 Intake & Output: Intake and Output for Last 24 Hours 01/21/23 01/22/23 01/23/23 23:59 23:59 23:59 Intake Total 2946.50 / 2946.50 529.17 / 529.17 Output Total 1000 / 1500 7100 / 7100 1900 / 1900 Balance -1000 / -1500 -4153.50 / -4153.50 -1370.83 / -1370.83 Lab / Micro Data 01/22/23 03:10 01/23/23 16:03 Labs: Laboratory Results - last 24 hr 01/22/23 21:20: Sodium 110 L*, Potassium 3.8, Chloride 73 L*, Carbon Dioxide 28.0, Anion Gap 9, BUN 8, Creatinine 0.50 L, Estim Creat Clear Calc 71.13, Est GFR (MDRD) Af Amer 211, Est GFR (MDRD) Non-Af 174, BUN/Creatinine Ratio 16.2, Glucose 163 H, Calcium 8.5 01/23/23 00:25: Sodium 110 L*, Potassium 4.0, Chloride 73 L*, Carbon Dioxide 31.0, Anion Gap 6, BUN 8, Creatinine 0.38 L, Estim Creat Clear Calc 71.13, Est GFR (MDRD) Af Amer 284, Est GFR (MDRD) Non-Af 235, BUN/Creatinine Ratio 20.9 H, Glucose 141 H, Calcium 8.3 L 01/23/23 04:30: Sodium Cancelled, Potassium Cancelled, Chloride Cancelled, Carbon Dioxide Cancelled, Anion Gap Cancelled, BUN Cancelled, Creatinine Cancelled, Estim Creat Clear Calc Cancelled, Est GFR (MDRD) Af Amer Cancelled, Est GFR (MDRD) Non-Af Cancelled, BUN/Creatinine Ratio Cancelled, Glucose Cancelled, Calcium Cancelled 01/23/23 05:15: Sodium Cancelled, Potassium Cancelled, Chloride Cancelled, Carbon Dioxide Cancelled, Anion Gap Cancelled, BUN Cancelled, Creatinine Cancelled, Estim Creat Clear Calc Cancelled, Est GFR (MDRD) Af Amer Cancelled, Est GFR (MDRD) Non-Af Cancelled, BUN/Creatinine Ratio Cancelled, Glucose Cancelled, Calcium Cancelled 01/23/23 06:15: Sodium 111 L*, Potassium 4.2, Chloride 74 L*, Carbon Dioxide 31.0, Anion Gap 6, BUN 8, Creatinine 0.41 L, Estim Creat Clear Calc 71.13, Est GFR (MDRD) Af Amer 261, Est GFR (MDRD) Non-Af 216, BUN/Creatinine Ratio 19.4, Glucose 137 H, Calcium 8.8 01/23/23 08:00: Sodium 110 L*, Potassium 4.2, Chloride 73 L*, Carbon Dioxide 29.0, Anion Gap 8, BUN 7, Creatinine 0.43 L, Estim Creat Clear Calc 71.13, Est GFR (MDRD) Af Amer 248, Est GFR (MDRD) Non-Af 205, BUN/Creatinine Ratio 16.2, Glucose 140 H, Calcium 8.9 01/23/23 12:15: Sodium 110 L*, Potassium 3.9, Chloride 74 L*, Carbon Dioxide 30.0, Anion Gap 6, BUN 11, Creatinine 0.46 L, Estim Creat Clear Calc 71.13, Est GFR (MDRD) Af Amer 229, Est GFR (MDRD) Non-Af 189, BUN/Creatinine Ratio 23.8 H, Glucose 181 H, Calcium 8.7 01/23/23 16:03: Sodium 111 L*, Potassium 3.5, Chloride 71 L*, Carbon Dioxide 30.0, Anion Gap 10, BUN 10, Creatinine 0.54 L, Estim Creat Clear Calc 71.13, Est GFR (MDRD) Af Amer 191, Est GFR (MDRD) Non-Af 158, BUN/Creatinine Ratio 18.6, Glucose 182 H, Calcium 8.6 Micro: Microbiology 01/21/23 20:20 Blood Culture (Wb) - Left Forearm Blood Culture - Preliminary No growth in 48 hours. 01/21/23 20:25 Blood Culture (Wb) - Right Forearm Blood Culture - Preliminary No growth in 48 hours. Rhythm Strip Rhythm Strip: Bradycardia Rate: 56 Physical Exam Narrative alert, no apparent distress and average body habitus General Appearance: cooperative, well kempt and well developed Orientation / Consciousness: awake, oriented to person and oriented to place HEENT normocephalic, head/scalp atraumatic and moist oral mucous membranes Eyes PERRL, EOMs intact bilaterally and conjunctivae normal Neck supple, no JVD, thyroid normal and no carotid bruits General: trachea midline Resp normal respiratory effort, no retractions, no use of accessory muscles and clear to auscultation bilaterally Auscultation: Negative for rales, rhonchi or wheezes Cardio regular rate, regular rhythm, S1 normal heart sound, S2 normal heart sound, no murmurs, no rub and no gallops GI normal to inspection, nondistended, normoactive bowel sounds, soft to palpation, non-tender and non-distended Extremity no clubbing, cyanosis or edema Skin no rashes or lesions noted General Skin Exam: no breakdown Neuro CN's II-XII intact bilaterally, moves all extremities, no focal motor deficits and no sensory deficits noted Sensorium / Orientation: awake, alert, oriented to person and oriented to place Speech: speech normal Psych affect normal Assessment & Plan Assessment/Plan (1) Hyponatremia: (2) Acute hyponatremia: PLAN: Plan 1. Acute hyponatremia-nephrology is directing the care of his hyponatremia, critical care is also seeing the patient #2 cardiac arrhythmia-there are strips noted on the patient which appeared to be torsades yesterday, he is now on a junctional rhythm, patient continues to be monitored #3 hypokalemia-corrected at this time #4 suspected alcohol abuse-patient's shows no sign of alcohol withdrawal #5 hyperlipidemia-patient is on atorvastatin #6 essential hypertension-patient will remain on his medications #7 adenocarcinoma left lung-patient states he has had radiation treatment, he does not know his oncologist's name #8 chronic obstructive pulmonary disease-patient is stable at this time, pulse ox will be monitored #9 bipolar disorder-patient's home med needs to be verified, it appears he was on Zyprexa at one time Total clinical time spent by myself addressing the patient's medical issues, reviewing all of his data, and collaborating with patient's care team: 35 minutes Charges/Coding Visit Charges Inpatient E&M: 50686 Subs Hosp L2
[2023-01-23] MEDS: Potassium Chloride Oral Tablet 20 MEQ 40 MEQ PO (17:21)
[2023-01-23] MEDS: Sodium Cl 3% 500 ML 30 ML IV ×2 (17:53→23:41)
[2023-01-23] MEDS: Divalproex (ER) 250 MG Tablet 500 MG PO (20:05)
[2023-01-23] MEDS: Finasteride 5 MG Tablet PO (20:05)
[2023-01-23] MEDS: Atorvastatin Calcium 80 MG Tablet PO (20:05)
[2023-01-23] MEDS: Tamsulosin HCl 0.4 MG Capsule 0.8 MG PO (20:05)
[2023-01-23 22:36] LABS: Anion Gap 8 (5-15); BUN 13 mg/dL (7-18); BUN/Creat Ratio 22.9 RATIO (10-20); Calcium,Total 8.8 mg/dL (8.5-10.1); Creatinine, Serum 0.57 mg/dL (0.70-1.30); EST Glomerular Filtration Rate 149 mL/min (>60); Est Glom Filt Rate - Afr Amer 180 mL/min (>60); Estimated Creatinine Clearance 71.13 ml/min; Glucose 174 mg/dL (74-106); Potassium 3.7 mmol/L (3.5-5.1)
[2023-01-23 22:57] LABS: Chloride 74 mmol/L (98-107); Sodium Level 113 mmol/L (136-145)
[2023-01-24] VITALS (20 sets, daily range): BP systolic 110–161; BP diastolic 47–73; PULSE 32–62; RESP 14–22; TEMP 36.6–37.1; O2SAT 89–99; BMI 29.5
[2023-01-24 04:26] LABS: Anion Gap 4 (5-15); BUN 13 mg/dL (7-18); BUN/Creat Ratio 28.3 RATIO (10-20); Calcium,Total 8.3 mg/dL (8.5-10.1); Chloride 78 mmol/L (98-107); Creatinine, Serum 0.46 mg/dL (0.70-1.30); EST Glomerular Filtration Rate 190 mL/min (>60); Est Glom Filt Rate - Afr Amer 230 mL/min (>60); Estimated Creatinine Clearance 71.13 ml/min; Glucose 157 mg/dL (74-106); Potassium 4.4 mmol/L (3.5-5.1); Sodium Level 116 mmol/L (136-145)
[2023-01-24] MEDS: Methylprednisolone Sod Succ 40 MG/ML VIAL IV ×3 (05:11→21:24)
[2023-01-24] MEDS: Sodium Chloride 1 GM Tablet PO ×3 (05:11→21:22)
[2023-01-24] MEDS: Sodium Cl 3% 500 ML 10 ML IV (05:11)
[2023-01-24] MEDS: HYDROcodone Bitartrate/Apap 5/325 Tablet PO ×3 (05:13→21:43)
[2023-01-24] MEDS: 0.9% Saline Lock 10 ML Syringe IV (05:17)
[2023-01-24 06:41] LABS: Bedside Glucose 182 mg/dL (74-106)
[2023-01-24] MEDS: Ipratropium/Albuterol Sulfate 3 ML AMPUL.NEB INHALATION ×3 (07:11→19:10)
[2023-01-24] MEDS: Juven (unflavored) Packet 1 PACKET PO (08:05)
[2023-01-24] MEDS: Folic Acid 1 MG Tablet PO (08:05)
[2023-01-24] MEDS: Aspirin E.C. 81 MG Tablet PO (08:05)
[2023-01-24] MEDS: Thiamine Hydrochloride 100 MG Tablet PO (08:06)
[2023-01-24] MEDS: Pantoprazole Sodium 20 MG Tablet PO (08:07)
[2023-01-24] MEDS: Losartan Potassium 50 MG Tablet PO (08:07)
[2023-01-24] MEDS: Furosemide 40 MG Tablet PO ×2 (08:07→17:37)
[2023-01-24] MEDS: Enoxaparin 40 MG/0.4 ML Syringe SC (08:07)
--- NOTE | 2023-01-24 09:01 | PCM.PN.HOSP ---
Reason for Visit Reason for Visit: Diagnoses Hypo-osmolality and hyponatremia (01/21/23) Torsades de pointes (01/21/23) Peripheral vascular disease, unspecified (01/21/23) Chronic obstructive pulmonary disease with (acute) exacerbation (01/21/23) Pressure ulcer of unspecified site, stage 1 (01/21/23) Bradycardia, unspecified (01/21/23) Difficulty in walking, not elsewhere classified (01/21/23) Weakness (01/21/23) Other specified abnormal findings of blood chemistry (01/21/23) Unspecified fall, initial encounter (01/21/23) Subjective Subjective Was seen and examined, he is alert without complaints. Patient sodium was 116 today, I talked briefly with critical care about his care, I feel he is stable for transfer to PCU at this time, he remains in a junctional rhythm, his rate is adequate currently. Objective Data Objective Data Vital Signs: Vital Signs Temp Pulse Resp BP Pulse Ox O2 Del Method O2 Flow Rate 98.4 F 37 L 20 H 161/70 H 99 Room Air 2 01/24/23 05:00 01/24/23 07:11 01/24/23 07:11 01/24/23 07:00 01/24/23 07:11 01/24/23 07:11 01/23/23 23:56 Oxygen Flow Rate (L/min) 2 Oxygen Delivery Method Room Air Weight: 98.7 kg Body Mass Index (BMI) 29.5 Intake & Output: Intake and Output for Last 24 Hours 01/22/23 01/23/23 01/24/23 23:59 23:59 23:59 Intake Total 2946.50 / 2946.50 1411.00 / 1411.00 131 / 131 Output Total 7100 / 7100 3400 / 3400 200 / 200 Balance -4153.50 / -4153.50 -1988.00 / -1988.00 -69 / -69 Lab / Micro Data 01/22/23 03:10 01/24/23 04:00 Labs: Laboratory Results - last 24 hr 01/21/23 17:33: POC Glucose 182 H 01/23/23 12:15: Sodium 110 L*, Potassium 3.9, Chloride 74 L*, Carbon Dioxide 30.0, Anion Gap 6, BUN 11, Creatinine 0.46 L, Estim Creat Clear Calc 71.13, Est GFR (MDRD) Af Amer 229, Est GFR (MDRD) Non-Af 189, BUN/Creatinine Ratio 23.8 H, Glucose 181 H, Calcium 8.7 01/23/23 16:03: Sodium 111 L*, Potassium 3.5, Chloride 71 L*, Carbon Dioxide 30.0, Anion Gap 10, BUN 10, Creatinine 0.54 L, Estim Creat Clear Calc 71.13, Est GFR (MDRD) Af Amer 191, Est GFR (MDRD) Non-Af 158, BUN/Creatinine Ratio 18.6, Glucose 182 H, Calcium 8.6 01/23/23 21:40: Sodium 113 L*, Potassium 3.7, Chloride 74 L*, Carbon Dioxide 31.0, Anion Gap 8, BUN 13, Creatinine 0.57 L, Estim Creat Clear Calc 71.13, Est GFR (MDRD) Af Amer 180, Est GFR (MDRD) Non-Af 149, BUN/Creatinine Ratio 22.9 H, Glucose 174 H, Calcium 8.8 01/24/23 04:00: Sodium 116 L*, Potassium 4.4, Chloride 78 L, Carbon Dioxide 34.0 H, Anion Gap 4 L, BUN 13, Creatinine 0.46 L, Estim Creat Clear Calc 71.13, Est GFR (MDRD) Af Amer 230, Est GFR (MDRD) Non-Af 190, BUN/Creatinine Ratio 28.3 H, Glucose 157 H, Calcium 8.3 L Micro: Microbiology 01/21/23 20:20 Blood Culture (Wb) - Left Forearm Blood Culture - Preliminary No growth in 48 hours. 01/21/23 20:25 Blood Culture (Wb) - Right Forearm Blood Culture - Preliminary No growth in 48 hours. Rhythm Strip Rhythm Strip: Bradycardia Rate: 56 Physical Exam Const alert, no apparent distress and average body habitus General Appearance: cooperative, well kempt and well developed Orientation / Consciousness: awake, oriented to person, oriented to place and oriented to time HEENT normocephalic and moist oral mucous membranes Eyes PERRL, EOMs intact bilaterally and conjunctivae normal Neck supple, no JVD, thyroid normal and no carotid bruits General: trachea midline Resp normal respiratory effort, no retractions, no use of accessory muscles and clear to auscultation bilaterally Auscultation: Negative for rales, rhonchi or wheezes Cardio S1 normal heart sound, S2 normal heart sound, no murmurs, no rub and no gallops Cardio Narrative: Patient appears to be in a junctional rate, it is somewhat irregular with what appears to be occasional ectopic beats GI normal to inspection, nondistended, normoactive bowel sounds, soft to palpation, non-tender and non-distended Extremity no clubbing, cyanosis or edema Skin no rashes or lesions noted General Skin Exam: no breakdown Neuro CN's II-XII intact bilaterally, moves all extremities, no focal motor deficits and no sensory deficits noted Sensorium / Orientation: awake, alert, oriented to person and oriented to place Speech: speech normal Psych affect normal Assessment & Plan Assessment/Plan (1) Acute hyponatremia: (2) Hyponatremia: PLAN: Plan 1. Acute hyponatremia-nephrology is directing the care of his hyponatremia, critical care is also seeing the patient, patient appears stable for transfer to PCU at this time #2 cardiac arrhythmia-there are strips noted on the patient which appeared to be torsades at one point during his hospitalization, he is now on a junctional rhythm, patient continues to be monitored, rate appears adequate and the patient's blood pressure is good #3 hypokalemia-corrected at this time #4 suspected alcohol abuse-patient's shows no sign of alcohol withdrawal #5 hyperlipidemia-patient is on atorvastatin #6 essential hypertension-patient will remain on his medications #7 adenocarcinoma left lung-patient states he has had radiation treatment, he does not know his oncologist's name #8 chronic obstructive pulmonary disease-patient is stable at this time, pulse ox will be monitored #9 bipolar disorder-patient's home med needs to be verified, it appears he was on Zyprexa at one time, patient is currently on Depakote per critical care Total clinical time spent by myself addressing the patient's medical issues, reviewing all of his data, and collaborating with patient's care team: 35 minutes Charges/Coding Visit Charges Inpatient E&M: 75636 Subs Hosp L2
[2023-01-24 10:05] LABS: Anion Gap 8 (5-15); BUN 13 mg/dL (7-18); BUN/Creat Ratio 20.3 RATIO (10-20); Calcium,Total 8.5 mg/dL (8.5-10.1); Chloride 77 mmol/L (98-107); Creatinine, Serum 0.64 mg/dL (0.70-1.30); EST Glomerular Filtration Rate 130 mL/min (>60); Est Glom Filt Rate - Afr Amer 157 mL/min (>60); Estimated Creatinine Clearance 71.13 ml/min; Glucose 179 mg/dL (74-106); Potassium 3.4 mmol/L (3.5-5.1); Sodium Level 116 mmol/L (136-145)
--- NOTE | 2023-01-24 10:26 | PCM.PN.INT ---
Assessment & Plan Assessment/Plan (1) Acute hyponatremia: PLAN: Sodium improved today at 111->116. His mental status is stable. We can continue with slow steady improvement in his sodium at 8 points per day with a goal today of 124. Beer potomania could certainly contribute, I have discontinued the beer ordered by primary care, and substitute of the [facility] protocol. He has no signs or symptoms of alcohol withdrawal at this time. Will monitor closely. - 3% saline restarted due to the stalled improvement in the sodium level on normal saline. Currently at 25 cc/h prior to transferring to the floor. - Nephrology consult appreciated. - BMP every 4 hours to continue until greater than 120. - No further arrhythmias. Critical care will sign off when the patient transfers to the regular floor. Thank you for consulting [facility] on this pleasant patient. (2) Acute exacerbation of chronic obstructive pulmonary disease: PLAN: Patient is actively smoking 2 packs/day is and on oxygen. - Methylprednisolone IV 40 mg every 8 hours continues. It would likely take weeks until he is wheeze free, he may need a long prednisone taper transitioning to high-dose inhaled steroids and long-acting bronchodilators due to the longstanding and suboptimally treated inflammation in his airways. - Continue DuoNeb scheduled every 4 hours. - Recommend scheduling a PFT upon discharge, to be done 6 weeks after discharge to check his COPD severity, residual airway reactivity, and help guide his inhaler selection and dosing. PLAN: Plan Thank you for consulting [facility] on your pleasant patient. He remains critically ill due to his sodium of 116 today, but is asymptomatic and improving. It is likely a chronic problem. Critical care time spent with patient at bedside, review of documentation, lab results, radiology and other test results, discussion with colleagues and ancillary staff, clinical management of patient, was 35 minutes[place] [address]. Subjective Subjective No complaints this morning. He is sitting up in a chair awake and alert, complaining of improved back pain. His breathing feels better he is not wheezing as much or coughing. Denies any fevers chills or sweats. Denies tremors or symptoms of alcohol withdrawal. No cramping. Overnight: Sodium coming up slowly. After sodium at 4 AM was 116, the 3% saline was decreased from 25 cc/h to 10 cc/h, no further improvement thereafter; was 116 at 8 AM. Fluid restriction is ongoing. Calcium is normal. He will be transferring to the floor today. He is chronically bradycardic, is in the 40s with stable blood pressure and mentation. Good urine output. Objective Data Objective Data Vital Signs: Vital Signs Temp Pulse Resp BP Pulse Ox O2 Del Method O2 Flow Rate 97.9 F 43 L 18 144/59 H 96 Room Air 2 01/24/23 08:00 01/24/23 10:00 01/24/23 10:00 01/24/23 10:00 01/24/23 10:00 01/24/23 10:00 01/23/23 23:56 Oxygen Flow Rate (L/min) 2 Oxygen Delivery Method Room Air Weight: 217 lb 9.54 oz Body Mass Index (BMI) 29.5 Intake & Output: Intake and Output for Last 24 Hours 01/22/23 01/23/23 01/24/23 23:59 23:59 23:59 Intake Total 2946.50 / 2946.50 1411.00 / 1411.00 381 / 381 Output Total 7100 / 7100 3400 / 3400 200 / 200 Balance -4153.50 / -4153.50 -1989.00 / -1989.00 181 / 181 Lab / Micro Data 01/22/23 03:10 01/24/23 09:15 Labs: Laboratory Results - last 24 hr 01/21/23 17:33: POC Glucose 182 H 01/23/23 12:15: Sodium 110 L*, Potassium 3.9, Chloride 74 L*, Carbon Dioxide 30.0, Anion Gap 6, BUN 11, Creatinine 0.46 L, Estim Creat Clear Calc 71.13, Est GFR (MDRD) Af Amer 229, Est GFR (MDRD) Non-Af 189, BUN/Creatinine Ratio 23.8 H, Glucose 181 H, Calcium 8.7 01/23/23 16:03: Sodium 111 L*, Potassium 3.5, Chloride 71 L*, Carbon Dioxide 30.0, Anion Gap 10, BUN 10, Creatinine 0.54 L, Estim Creat Clear Calc 71.13, Est GFR (MDRD) Af Amer 191, Est GFR (MDRD) Non-Af 158, BUN/Creatinine Ratio 18.6, Glucose 182 H, Calcium 8.6 01/23/23 21:40: Sodium 113 L*, Potassium 3.7, Chloride 74 L*, Carbon Dioxide 31.0, Anion Gap 8, BUN 13, Creatinine 0.57 L, Estim Creat Clear Calc 71.13, Est GFR (MDRD) Af Amer 180, Est GFR (MDRD) Non-Af 149, BUN/Creatinine Ratio 22.9 H, Glucose 174 H, Calcium 8.8 01/24/23 04:00: Sodium 116 L*, Potassium 4.4, Chloride 78 L, Carbon Dioxide 34.0 H, Anion Gap 4 L, BUN 13, Creatinine 0.46 L, Estim Creat Clear Calc 71.13, Est GFR (MDRD) Af Amer 230, Est GFR (MDRD) Non-Af 190, BUN/Creatinine Ratio 28.3 H, Glucose 157 H, Calcium 8.3 L 01/24/23 09:15: Sodium 116 L*, Potassium 3.4 L, Chloride 77 L, Carbon Dioxide 31.0, Anion Gap 8, BUN 13, Creatinine 0.64 L, Estim Creat Clear Calc 71.13, Est GFR (MDRD) Af Amer 157, Est GFR (MDRD) Non-Af 130, BUN/Creatinine Ratio 20.3 H, Glucose 179 H, Calcium 8.5 Micro: Microbiology 01/21/23 20:20 Blood Culture (Wb) - Left Forearm Blood Culture - Preliminary No growth in 48 hours. 01/21/23 20:25 Blood Culture (Wb) - Right Forearm Blood Culture - Preliminary No growth in 48 hours. Rhythm Strip Rhythm Strip: Bradycardia Rate: 56 Physical Exam Narrative Well-developed, pasty appearing man, awake, verbal, appropriate, alert and oriented x3. HEENT: Normocephalic atraumatic pupils are equal and reactive mucous membranes are moist no obvious bleeding Neck is supple. Lungs have improved but still present expiratory wheezing in all lung farley with better air movement. No crackles, He had no cough during deep breathing today. Heart normal S1-S2 with no murmurs rubs or gallops, rhythm is junctional in the 40s on the monitor. No symptoms of dizziness. Abdomen is soft, nontender. Pichardo has mild hematuria and cloudy urine. Extremities have chronic venous stasis changes bilaterally, chronic arterial insufficiency changes, but otherwise warm and dry. Some healed eschars on the toes. The upper shins are wrapped. Mild creasing of skin after diuresis 2 days ago. Neurologic exam is grossly nonfocal he follows commands, raises his arms. Sitting in a chair at bedside today. Charges/Coding Procedures Hospitalists Procedures: [id number]
[2023-01-24 11:53] LABS: Anion Gap 7 (5-15); BUN 14 mg/dL (7-18); BUN/Creat Ratio 27.9 RATIO (10-20); Calcium,Total 8.7 mg/dL (8.5-10.1); Chloride 81 mmol/L (98-107); EST Glomerular Filtration Rate 172 mL/min (>60); Est Glom Filt Rate - Afr Amer 208 mL/min (>60); Estimated Creatinine Clearance 71.13 ml/min; Glucose 137 mg/dL (74-106); Potassium 3.8 mmol/L (3.5-5.1); Sodium Level 120 mmol/L (136-145)
[2023-01-24] MEDS: 0.9% Normal Saline 1,000 ML 50 ML IV (12:24)
[2023-01-24] MEDS: Nicotine Polacrilex 2 MG GUM PO (12:25)
[2023-01-24] MEDS: LORazepam 1 MG Tablet 2 MG PO (14:31)
[2023-01-24 15:02] LABS: Anion Gap 8 (5-15); BUN 16 mg/dL (7-18); BUN/Creat Ratio 22.7 RATIO (10-20); Calcium,Total 8.6 mg/dL (8.5-10.1); Chloride 81 mmol/L (98-107); EST Glomerular Filtration Rate 116 mL/min (>60); Est Glom Filt Rate - Afr Amer 141 mL/min (>60); Estimated Creatinine Clearance 71.13 ml/min; Glucose 190 mg/dL (74-106); Potassium 3.3 mmol/L (3.5-5.1); Sodium Level 120 mmol/L (136-145)
[2023-01-24 19:26] LABS: Anion Gap 9 (5-15); BUN 16 mg/dL (7-18); BUN/Creat Ratio 19.3 RATIO (10-20); Calcium,Total 8.6 mg/dL (8.5-10.1); Chloride 80 mmol/L (98-107); Creatinine, Serum 0.83 mg/dL (0.70-1.30); EST Glomerular Filtration Rate 97 mL/min (>60); Est Glom Filt Rate - Afr Amer 117 mL/min (>60); Glucose 196 mg/dL (74-106); Potassium 3.7 mmol/L (3.5-5.1); Sodium Level 120 mmol/L (136-145)
[2023-01-24] MEDS: Atorvastatin Calcium 80 MG Tablet PO (21:22)
[2023-01-24] MEDS: Tamsulosin HCl 0.4 MG Capsule 0.8 MG PO (21:22)
[2023-01-24] MEDS: Divalproex (ER) 250 MG Tablet 500 MG PO (21:23)
[2023-01-24] MEDS: Finasteride 5 MG Tablet PO (21:23)
[2023-01-24 22:59] LABS: Anion Gap 7 (5-15); BUN 14 mg/dL (7-18); BUN/Creat Ratio 21.8 RATIO (10-20); Calcium,Total 8.8 mg/dL (8.5-10.1); Chloride 80 mmol/L (98-107); Creatinine, Serum 0.64 mg/dL (0.70-1.30); EST Glomerular Filtration Rate 129 mL/min (>60); Est Glom Filt Rate - Afr Amer 156 mL/min (>60); Estimated Creatinine Clearance 71.13 ml/min; Glucose 146 mg/dL (74-106); Potassium 3.7 mmol/L (3.5-5.1); Sodium Level 120 mmol/L (136-145)
[2023-01-25] VITALS (9 sets, daily range): BP systolic 128–155; BP diastolic 49–85; PULSE 52–79; RESP 16–20; TEMP 36.1–36.8; O2SAT 92–95
[2023-01-25] MEDS: HYDROcodone Bitartrate/Apap 5/325 Tablet PO ×4 (04:03→23:21)
[2023-01-25] MEDS: Sodium Chloride 1 GM Tablet PO ×3 (05:41→21:09)
[2023-01-25] MEDS: Methylprednisolone Sod Succ 40 MG/ML VIAL IV (05:42)
[2023-01-25] MEDS: Folic Acid 1 MG Tablet PO (07:38)
[2023-01-25] MEDS: Furosemide 40 MG Tablet PO ×2 (07:38→17:06)
[2023-01-25] MEDS: Thiamine Hydrochloride 100 MG Tablet PO (07:38)
[2023-01-25] MEDS: Losartan Potassium 50 MG Tablet PO (07:38)
[2023-01-25] MEDS: Pantoprazole Sodium 20 MG Tablet PO (07:39)
[2023-01-25] MEDS: Aspirin E.C. 81 MG Tablet PO (07:39)
[2023-01-25] MEDS: Enoxaparin 40 MG/0.4 ML Syringe SC (07:40)
[2023-01-25] MEDS: 0.9% Normal Saline 1,000 ML 50 ML IV (07:43)
[2023-01-25] MEDS: Ipratropium/Albuterol Sulfate 3 ML AMPUL.NEB INHALATION ×4 (07:45→20:39)
--- NOTE | 2023-01-25 10:36 | PN.HOSP_ITS ---
Reason for Visit Reason for Visit: Diagnoses Hypo-osmolality and hyponatremia (01/21/23) Torsades de pointes (01/21/23) Peripheral vascular disease, unspecified (01/21/23) Chronic obstructive pulmonary disease with (acute) exacerbation (01/21/23) Pressure ulcer of unspecified site, stage 1 (01/21/23) Bradycardia, unspecified (01/21/23) Difficulty in walking, not elsewhere classified (01/21/23) Weakness (01/21/23) Other specified abnormal findings of blood chemistry (01/21/23) Unspecified fall, initial encounter (01/21/23) Subjective Subjective Patient was seen and examined today, he voices no complaints, his sodium is now 120, he remains in a junctional rhythm/A-fib. Objective Data Objective Data Vital Signs: Vital Signs Temp Pulse Resp BP Pulse Ox O2 Del Method O2 Flow Rate 97.0 F L 52 L 16 143/53 H 92 Room Air 2 01/25/23 07:32 01/25/23 07:45 01/25/23 07:45 01/25/23 07:32 01/25/23 07:45 01/25/23 07:45 01/23/23 23:56 Oxygen Flow Rate (L/min) 2 Oxygen Delivery Method Room Air Weight: 98.7 kg Body Mass Index (BMI) 29.5 Intake & Output: Intake and Output for Last 24 Hours 01/23/23 01/24/23 01/25/23 23:59 23:59 23:59 Intake Total 1411.00 / 1411.00 1745.67 / 1745.67 1274.17 / 1274.17 Output Total 3400 / 3400 4350 / 4350 1300 / 1300 Balance -1989.00 / -1989.00 -2604.33 / -2604.33 -25.83 / -25.83 Lab / Micro Data 01/22/23 03:10 01/24/23 22:26 Labs: Laboratory Results - last 24 hr 01/24/23 11:30: Sodium 120 L, Potassium 3.8, Chloride 81 L, Carbon Dioxide 32.0, Anion Gap 7, BUN 14, Creatinine 0.50 L, Estim Creat Clear Calc 71.13, Est GFR (MDRD) Af Amer 208, Est GFR (MDRD) Non-Af 172, BUN/Creatinine Ratio 27.9 H, Glucose 137 H, Calcium 8.7 01/24/23 14:30: Sodium 120 L, Potassium 3.3 L, Chloride 81 L, Carbon Dioxide 31.0, Anion Gap 8, BUN 16, Creatinine 0.70, Estim Creat Clear Calc 71.13, Est GFR (MDRD) Af Amer 141, Est GFR (MDRD) Non-Af 116, BUN/Creatinine Ratio 22.7 H, Glucose 190 H, Calcium 8.6 01/24/23 18:57: Sodium 120 L, Potassium 3.7, Chloride 80 L, Carbon Dioxide 31.0, Anion Gap 9, BUN 16, Creatinine 0.83, Estim Creat Clear Calc 85.70, Est GFR (MDRD) Af Amer 117, Est GFR (MDRD) Non-Af 97, BUN/Creatinine Ratio 19.3, Glucose 196 H, Calcium 8.6 01/24/23 22:26: Sodium 120 L, Potassium 3.7, Chloride 80 L, Carbon Dioxide 33.0 H, Anion Gap 7, BUN 14, Creatinine 0.64 L, Estim Creat Clear Calc 71.13, Est GFR (MDRD) Af Amer 156, Est GFR (MDRD) Non-Af 129, BUN/Creatinine Ratio 21.8 H, Glucose 146 H, Calcium 8.8 Micro: Microbiology 01/21/23 20:20 Blood Culture (Wb) - Left Forearm Blood Culture - Preliminary No growth in 48 hours. 01/21/23 20:25 Blood Culture (Wb) - Right Forearm Blood Culture - Preliminary No growth in 48 hours. Rhythm Strip Rhythm Strip: Bradycardia Rate: 56 Physical Exam Narrative alert, no apparent distress and average body habitus General Appearance: cooperative, well kempt and well developed Orientation / Consciousness: awake, oriented to person, oriented to place and oriented to time HEENT normocephalic and moist oral mucous membranes Eyes PERRL, EOMs intact bilaterally and conjunctivae normal Neck supple, no JVD, thyroid normal and no carotid bruits General: trachea midline Resp normal respiratory effort, no retractions, no use of accessory muscles and clear to auscultation bilaterally Auscultation: Negative for rales, rhonchi or wheezes Cardio S1 normal heart sound, S2 normal heart sound, no murmurs, no rub and no gallops Cardio Narrative: Patient appears to be in a junctional rate, it is somewhat irregular with what appears to be occasional ectopic beats GI normal to inspection, nondistended, normoactive bowel sounds, soft to palpation, non-tender and non-distended Extremity no clubbing, cyanosis or edema Skin no rashes or lesions noted General Skin Exam: no breakdown Neuro CN's II-XII intact bilaterally, moves all extremities, no focal motor deficits and no sensory deficits noted Sensorium / Orientation: awake, alert, oriented to person and oriented to place Speech: speech normal Psych affect normal Assessment & Plan Assessment/Plan (1) Hyponatremia: (2) Acute hyponatremia: PLAN: Plan 1. Acute hyponatremia-nephrology is directing the care of his hyponatremia, critical care is also seeing the patient, patient's sodium is improving #2 cardiac arrhythmia-there are strips noted on the patient which appeared to be torsades at one point during his hospitalization, he is now on a junctional rhythm-at times it appears to be A-fib, patient continues to be monitored, rate appears adequate and the patient's blood pressure is good #3 hypokalemia-corrected at this time #4 suspected alcohol abuse-patient's shows no sign of alcohol withdrawal #5 hyperlipidemia-patient is on atorvastatin #6 essential hypertension-patient will remain on his medications #7 adenocarcinoma left lung-patient states he has had radiation treatment, he does not know his oncologist's name #8 chronic obstructive pulmonary disease-patient is stable at this time, pulse ox will be monitored #9 bipolar disorder-patient's home med needs to be verified, it appears he was on Zyprexa at one time, patient is currently on Depakote per critical care #10 generalized debility due to multiple medical problems-I talked to the venancio roberson briefly about going to an extended care facility for short-term rehab services, he states he has home health aides that come into his house and help him he also lives with his sister, he would prefer not to go to an extended care facility. Total clinical time spent by myself addressing the patient's medical issues, reviewing all of his data, and collaborating with patient's care team: 35 minute s Charges/Coding Visit Charges Inpatient E&M: 71810 Subs Hosp L2
[2023-01-25] MEDS: Finasteride 5 MG Tablet PO (21:09)
[2023-01-25] MEDS: Tamsulosin HCl 0.4 MG Capsule 0.8 MG PO (21:09)
[2023-01-25] MEDS: Atorvastatin Calcium 80 MG Tablet PO (21:09)
[2023-01-25] MEDS: Divalproex (ER) 250 MG Tablet 500 MG PO (21:09)
[2023-01-26] VITALS (7 sets, daily range): BP systolic 81–128; BP diastolic 48–65; PULSE 57–75; RESP 16–20; TEMP 36.6–36.7; O2SAT 87–98
[2023-01-26] MEDS: 0.9% Normal Saline 1,000 ML 50 ML IV (02:55)
[2023-01-26] MEDS: Sodium Chloride 1 GM Tablet PO ×2 (05:43→13:38)
[2023-01-26] MEDS: HYDROcodone Bitartrate/Apap 5/325 Tablet PO ×2 (05:48→13:38)
[2023-01-26 07:23] LABS: Anion Gap 7 (5-15); BUN 13 mg/dL (7-18); BUN/Creat Ratio 20.9 RATIO (10-20); Calcium,Total 8.3 mg/dL (8.5-10.1); Chloride 87 mmol/L (98-107); Creatinine, Serum 0.62 mg/dL (0.70-1.30); EST Glomerular Filtration Rate 134 mL/min (>60); Est Glom Filt Rate - Afr Amer 162 mL/min (>60); Estimated Creatinine Clearance 71.13 ml/min; Glucose 124 mg/dL (74-106); Potassium 2.7 mmol/L (3.5-5.1); Sodium Level 125 mmol/L (136-145)
[2023-01-26] MEDS: Aspirin E.C. 81 MG Tablet PO (07:46)
[2023-01-26] MEDS: Folic Acid 1 MG Tablet PO (07:46)
[2023-01-26] MEDS: Thiamine Hydrochloride 100 MG Tablet PO (07:46)
[2023-01-26] MEDS: Pantoprazole Sodium 20 MG Tablet PO (07:46)
[2023-01-26] MEDS: Furosemide 40 MG Tablet PO (07:46)
[2023-01-26] MEDS: Enoxaparin 40 MG/0.4 ML Syringe SC (07:47)
[2023-01-26] MEDS: Potassium Chloride Oral Tablet 20 MEQ 60 MEQ PO (07:49)
[2023-01-26] MEDS: Ipratropium/Albuterol Sulfate 3 ML AMPUL.NEB INHALATION ×3 (08:32→15:40)
--- NOTE | 2023-01-26 13:02 | CASEMGMT ---
AMY called patient's sister Luisa to let her know patient may be discharged today. Luisa said she would fruit picker patient if that is the case. Patient has an appt at [facility] tomorrow at 1130 and she was hoping patient could stay until then. AMY spoke with physician and he does not think patient needs to go to this appt since Cardiology has been seeing him at [facility]. AMY called [facility] and spoke with Berenice. It was felt patient does not need to come to this appt and it will be canceled. AMY will notify patient's sister. Comfort Minor EYELETTER SOHEILA
[2023-01-26] MEDS: Potassium Chloride Oral Tablet 20 MEQ 40 MEQ PO ×2 (13:38→17:04)
--- NOTE | 2023-01-26 13:53 | PCM.PN.REN ---
Subjective Subjective Following for acute on chronic hyponatremia Patient is sitting in chair. No overnight events. No complaints. Hopeful to go home today. Objective Data Objective Data Vital Signs: Vital Signs Temp Pulse Resp BP Pulse Ox O2 Del Method O2 Flow Rate 98.1 F 65 16 107/65 93 Room Air 2 01/26/23 13:40 01/26/23 13:40 01/26/23 13:40 01/26/23 13:40 01/26/23 13:40 01/26/23 13:40 01/26/23 10:13 Oxygen Flow Rate (L/min) 2 Oxygen Delivery Method Room Air Weight: 98.7 kg Body Mass Index (BMI) 29.5 Intake & Output: Intake and Output for Last 24 Hours 01/24/23 01/25/23 01/26/23 23:59 23:59 23:59 Intake Total 1745.67 / 1745.67 1594.17 / 1594.17 1200 / 1200 Output Total 4350 / 4350 4650 / 4650 1450 / 1450 Balance -2604.33 / -2604.33 -3055.83 / -3055.83 -250 / -250 Lab / Micro Data 01/22/23 03:10 01/26/23 06:05 Labs: Laboratory Results - last 24 hr 01/26/23 06:05: Sodium 125 L, Potassium 2.7 L*, Chloride 87 L, Carbon Dioxide 31.0, Anion Gap 7, BUN 13, Creatinine 0.62 L, Estim Creat Clear Calc 71.13, Est GFR (MDRD) Af Amer 162, Est GFR (MDRD) Non-Af 134, BUN/Creatinine Ratio 20.9 H, Glucose 124 H, Calcium 8.3 L Micro: Microbiology 01/21/23 20:20 Blood Culture (Wb) - Left Forearm Blood Culture - Preliminary No growth in 48 hours. 01/21/23 20:25 Blood Culture (Wb) - Right Forearm Blood Culture - Preliminary No growth in 48 hours. Rhythm Strip Rhythm Strip: Bradycardia Rate: 56 Physical Exam Narrative Alert awake, no apparent distress s1s2 no murmurs lungs clear abdomen soft no edema wade + Assessment & Plan Assessment/Plan (1) Acute hyponatremia: PLAN: Acute on chronic hyponatremia. History of alcohol use. Baseline sodium unknown. Patient has had history of hyponatremia dating back to at least 2012. Patient admitted to the hospital on January 21 with sodium of 102. Likely due to beer potomania. Urine sodium and urine osmolality high but it is possible these were drawn after he received IV fluids. Sodium slowly improved daily and is at 125 currently. Patient received desmopressin and IV fluids during hospitalization. Also on fluid restriction. He is now on lasix and salt tablets. Discussed with patient importance of maintaining fluid restriction (total daily FR of no more than 1.5L/day) once at home and decreasing beer intake. Hypokalemia; potassium being replaced today. Repeating labs at 1500 today. Currently on furosemide and salt tablets in hospital. Home meds includes Furosemide 40 mg twice daily and 1gm salt tablets TID (seems like patient was not taking salt tablets). Okay for discharge from nephrology standpoint on lasix, Fluid restriction of no more than 1.5L/day and not to continue salt tablets at home. We will arrange for hospital follow-up
--- NOTE | 2023-01-26 15:58 | CASEMGMT ---
TYE HUGO in to discuss discharge needs with patient. Patient states he will be going home with sister and his aide services. Patient declined [facility] for therapy as patient was just recently discharged from [facility]. Patient states he continues to complete exercises that therapy had provided. Patient declined further needs at this time. TYE HUGO advised patient to follow up with PCP should he reconsider HHC or needs, patient voiced understanding.
[2023-01-26 16:27] LABS: Anion Gap 8 (5-15); BUN 16 mg/dL (7-18); BUN/Creat Ratio 23.2 RATIO (10-20); Calcium,Total 8.4 mg/dL (8.5-10.1); Chloride 90 mmol/L (98-107); Creatinine, Serum 0.69 mg/dL (0.70-1.30); EST Glomerular Filtration Rate 119 mL/min (>60); Est Glom Filt Rate - Afr Amer 144 mL/min (>60); Estimated Creatinine Clearance 71.13 ml/min; Glucose 131 mg/dL (74-106); Potassium 3.3 mmol/L (3.5-5.1); Sodium Level 127 mmol/L (136-145)
--- NOTE | 2023-01-26 17:00 | DCINST_ITS ---
Discharge Instructions Diet Discharge Diet: No restrictions Activity Discharge Activity: Return to Normal Activity Weight Bearing Status: Full weight bearing Follow Up Care Test Results: Test results from this visit will be discussed in further detail at your follow- up appointment, if applicable. Discharge Plan Admission Admit Date/Time: 01/21/23 19:55 Primary Reason for Your Visit: low sodium Attending Provider: Arsh Medina Primary Care Provider: Inocente Nichols Consulting Providers: Juanito Roman; Carol Rogers; Wes Pena; Sandeep Nava Instructions Additional Instructions / Restrictions: Follow up with your cardiology appointment in 3 weeks Discharge Orders/Prescriptions Prescriptions: New potassium chloride 20 mEq tablet extended release 20 meq PO BID Qty: 60 0RF Continued albuterol sulfate 90 mcg/actuation HFA aerosol inhaler 1 - 2 puff inhalation 4X/DAY PRN PRN (Reason: Sob &/Or Wheezing) Qty: 8.5 5RF hydrocodone-acetaminophen 5-325 mg tablet 1 tab PO Q8H Patient Comments: COULD NOT FULLY VERIFY WITH PT AT TIME OF MED REC. PER PT PHARMACY FILLED ON 01/21/23 atorvastatin 80 mg tablet 80 mg PO DAILY Qty: 30 5RF Patient Comments: COULD NOT FULLY VERIFY WITH PT AT TIME OF MED REC. PER PT PHARMACY FILLED ON 01/15/23 lactulose 10 gram/15 mL solution 30 g PO BID PRN (Reason: constipation) olanzapine [Zyprexa] 15 mg tablet 15 mg PO QHS guaifenesin 400 mg tablet 400 mg PO TID fluticasone propionate 50 mcg/actuation spray,suspension 2 spray intranasal DAILY Patient Comments: COULD NOT FULLY VERIFY WITH PT AT TIME OF MED REC. PER PT PHARMACY FILLED ON 12/26/22 Rx Instructions: administer into each nostril loratadine 10 mg tablet 10 mg PO DAILY Patient Comments: COULD NOT FULLY VERIFY WITH PT AT TIME OF MED REC. PER PT PHARMACY FILLED ON 01/18/23 cholecalciferol (vitamin D3) 1,000 UNIT tablet 2,000 unit PO DAILY melatonin 3 MG tablet 3 mg PO QHS PRN (Reason: sleep aide) tamsulosin 0.4 MG capsule 0.8 mg PO QHS Rx Instructions: 2 -0.4mg caps finasteride 5 MG tablet 5 mg PO QHS omeprazole 20 MG capsule 20 mg PO DAILY mineral oil Enema 133 ml [place] DAILY PRN (Reason: Constipation) Pulmicort Flexhaler 180 mcg/actuation Aerosol Powdr Breath Activated 2 inh INHALATION BID folic acid 1 MG tablet 1 mg PO DAILY@0800 multivitamin Tablet 1 tab PO DAILY losartan 50 mg tablet 50 mg PO DAILY Patient Comments: COULD NOT FULLY VERIFY WITH PT AT TIME OF MED REC. PER PT PHARMACY FILLED ON 01/15/23 bisacodyl 10 mg Suppository 10 mg [place] DAILY PRN (Reason: Constipation) thiamine HCl (vitamin B1) 100 MG tablet 100 mg PO DAILYCM divalproex [Depakote ER] 250 mg tablet extended release 24 hr 500 mg PO QHS furosemide 40 mg tablet 40 mg PO BID Patient Comments: COULD NOT FULLY VERIFY WITH PT AT TIME OF MED REC. PER PT PHARMACY FILLED ON 01/07/23 aspirin [Adult Low Dose Aspirin] 81 mg tablet,delayed release (DR/EC) 81 mg PO DAILY Discontinued magnesium hydroxide 400 mg/5 mL Suspension 400 mg PO DAILY PRN (Reason: Constipation) sodium chloride 1,000 mg Tablet,Soluble 1,000 mg PO TID Qty: 90 0RF Patient Comments: COULD NOT FULLY VERIFY WITH PT AT TIME OF MED REC. PER PT PHARMACY FILLED ON 12/31/22 Referrals / Follow Up: Elvis Masterson MD [Med Staff - Active Staff] - See Referral Note (in 3 weeks) Inocente Nichols MD [Primary Care Provider] - Within 1 Week Disposition Disposition (needs filled in before D/C Order can be placed): Home, Self Care
--- NOTE | 2023-01-26 17:13 | DS.PCM_ITS ---
Providers Date of Admission: 01/21/23 Date of Discharge: 01/26/23 Primary Care Physician: Dr. Inocente Nichols MD Consultations 01/21/23 20:56 Consult: Medical Service Technician / Pulmonary Medicine Routine Consulting Provider: Wes Pena Reason for Consult: Hyponatremia EMERGENT Consult: No MD Notified: Yes Date Notified: 01/21/23 Time Notified: 20:04 Method of Notification: Verbal 01/22/23 07:47 Consult: Cardiology Routine Consulting Provider: Carol Rogers Reason for Consult: Junctional Rhythm EMERGENT Consult: No Notified: Yes Date Notified: 01/22/23 Time Notified: 07:47 Method of Notification: Text 01/22/23 09:41 Consult: Nephrology Routine Consulting Provider: Sandeep Nava Reason for Consult: low sodium EMERGENT Consult: No Notified: Yes Date Notified: 01/22/23 Time Notified: 09:42 Method of Notification: Verbal Reason For Visit: HYPONATREMIA Diagnosis Discharge Diagnosis (1) Acute hyponatremia: Status: Acute Code(s): E87.1 - Hypo-osmolality and hyponatremia Plan 1. Acute hyponatremia-nephrology is directing the care of his hyponatremia, critical care is also seeing the patient, patient's sodium is improving #2 Atrial fibrillation with well-controlled ventricular response #3 hypokalemia-corrected at this time #4 suspected alcohol abuse-patient's shows no sign of alcohol withdrawal #5 hyperlipidemia-patient is on atorvastatin #6 essential hypertension-patient will remain on his medications #7 Past history of adenocarcinoma left lung-patient states he has had radiation treatment, he does not know his oncologist's name #8 chronic obstructive pulmonary disease-patient is stable at this time, pulse ox will be monitored #9 bipolar disorder-patient's home med needs to be verified, it appears he was on Zyprexa at one time, patient is currently on Depakote per critical care #10 generalized debility due to multiple medical problems-I talked to the patient briefly about going to an extended care facility for short-term rehab services, he states he has home health aides that come into his house and help him he also lives with his sister, he would prefer not to go to an extended care facility. Total clinical time spent by myself addressing the patient's medical issues, reviewing all of his data, and collaborating with patient's care team: 35 minutes Medications at Discharge Home Medications cholecalciferol (vitamin D3) 25 mcg (1,000 unit) tablet 2,000 unit PO DAILY supplement 02/22/19 finasteride 5 mg tablet 5 mg PO QHS prostate 02/22/19 melatonin 3 mg tablet 3 mg PO QHS PRN sleep aide 02/22/19 tamsulosin 0.4 mg capsule 0.8 mg PO QHS urinary issues 02/22/19 omeprazole 20 mg capsule,delayed release 20 mg PO DAILY STOMACH 01/09/20 albuterol sulfate 90 mcg/actuation aerosol inhaler 1 - 2 puff inhalation 4X/DAY PRN PRN Sob &/Or Wheezing #8.5 grams 01/04/21 budesonide 180 mcg/actuation breath activated powder inhaler (Pulmicort Flexhaler) 2 inh inhalation BID lungs 12/19/21 mineral oil 133 ml [place] DAILY PRN Constipation 12/19/21 bisacodyl 10 mg rectal suppository 10 mg [place] DAILY PRN Constipation 03/07/22 folic acid 1 mg tablet 1 mg PO DAILY@0800 supplement 03/07/22 losartan 50 mg tablet 50 mg PO DAILY bp 03/07/22 multivitamin 1 tab PO DAILY supplement 03/07/22 thiamine HCl (vitamin B1) 100 mg tablet 100 mg PO DAILYCM supplement 03/07/22 furosemide 40 mg tablet 40 mg PO BID FLUID 08/11/22 hydrocodone-acetaminophen 5-325mg 5mg-325mg 1 tab PO Q8H PAIN 09/24/22 atorvastatin 80 mg tablet 80 mg PO DAILY CHOLESTEROL #30 tabs 10/14/22 aspirin 81 mg tablet,delayed release (Adult Low Dose Aspirin) 81 mg PO DAILY HEALTH MAINTENANCE 01/21/23 divalproex 250 mg tablet,extended release 24 hr (Depakote ER) 500 mg PO QHS mental health 01/21/23 fluticasone propionate 50 mcg/actuation nasal spray,suspension 2 spray intranasal DAILY SINUS 01/21/23 guaifenesin 400 mg tablet 400 mg PO TID cough 01/21/23 lactulose 10 gram/15 mL oral solution 30 g PO BID PRN constipation 01/21/23 loratadine 10 mg tablet 10 mg PO DAILY ALLERGIES 01/21/23 olanzapine 15 mg tablet (Zyprexa) 15 mg PO QHS Mental disorder 01/21/23 potassium chloride 20 mEq tablet,extended release 20 meq PO BID #60 tabs 01/26/23 Hospital Course Operations None Procedures None Summary of Care Provided Minutes Spent on Discharge: 31 Hospital Course: 72-year-old white male was seen in the emergency room at [facility] with a chief complaint of generalized weakness, he had sustained a fall while trying to get into his car at his physician's office and skin both lower legs. Patient complained of shortness of breath and felt overall weak. Lab ob tained in the emergency room revealed a white blood cell count of 12.6, hemoglobin was 12.1, sodium was 102, chloride was 64, and glucose was 152. Lactic acid was elevated at 4.9. Patient was admitted to the intensive care unit for hyponatremia, he was placed on IV sodium replacement and seen in c onsultation by critical care and nephrology. Patient was also noted to be in what was felt to be a junctional rhythm but was actually atrial fibrillation with a well-controlled ventricular response. Patient also had an episode of what appeared to be torsades which was asymptomatic when he was in the ICU. Patient was seen in consultation by cardiology who recommended supportive care only. I discussed anticoagulation with the patient but he was not interested in taking full anticoagulation. Patient spent a few days in the ICU and was then transferred to PCU for further care, his sodium cherelle slowly and he was placed on Lasix by nephrology. The exact etiology of the patient's hyponatremia was not known, it was felt that he may have been drinking excessive amounts of beer at home along with water. Patient was seen by PT and OT, he refused to consider going to an extended care facility for short-term rehab services. On 01/26/2023, patient was seen and examined: On examination he appeared older than his stated age. Vital signs as documented. Skin warm and dry and without overt rashes. Neck without JVD, neck was supple, trachea midline, thyroid was normal. Lungs clear bilaterally, normal air movement was noted. Heart exam notable for irregular rhythm, normal sounds and absence of murmurs, rubs or gallops. Abdomen unremarkable and without evidence of organomegaly, masses, or abdominal aortic enlargement. Bowel sounds are present, abdomen is not distended. Extremities nonedematous, no cyanosis was noted, no clubbing was noted. Neuro: Cranial nerves II through XII are grossly intact, no focal motor deficits were noted, sensation to light touch and pinprick intact, motor exam 5/5 throughout. Psych: Patient is alert and oriented x3, he does not appear anxious or depressed, he does not appear agitated. On 01/26/2023, patient was seen and examined and felt to be in stable condition for discharge home. Weight / BMI Weight Weight: 98.7 kg Body Mass Index (BMI) 29.5 ABG / Lab / Microbiology Data 01/22/23 03:10 01/26/23 15:13 Laboratory: Laboratory Results - last 24 hr 01/26/23 06:05: Sodium 125 L, Potassium 2.7 L*, Chloride 87 L, Carbon Dioxide 31.0, Anion Gap 7, BUN 13, Creatinine 0.62 L, Estim Creat Clear Calc 71.13, Est GFR (MDRD) Af Amer 162, Est GFR (MDRD) Non-Af 134, BUN/Creatinine Ratio 20.9 H, Glucose 124 H, Calcium 8.3 L 01/26/23 15:13: Sodium 127 L, Potassium 3.3 L, Chloride 90 L, Carbon Dioxide 29.0, Anion Gap 8, BUN 16, Creatinine 0.69 L, Estim Creat Clear Calc 71.13, Est GFR (MDRD) Af Amer 144, Est GFR (MDRD) Non-Af 119, BUN/Creatinine Ratio 23.2 H, Glucose 131 H, Calcium 8.4 L Microbiology: Microbiology 01/21/23 20:20 Blood Culture (Wb) - Left Forearm Blood Culture - Preliminary No growth in 48 hours. 01/21/23 20:25 Blood Culture (Wb) - Right Forearm Blood Culture - Preliminary No growth in 48 hours. D/C Instructions Discharge Diet: No restrictions Weight Bearing Status: Full weight bearing Meaningful Use Info Meaningful Use Diagnoses (Choose all that apply): None applicable Discharge Plan Admission Admit Date/Time: 01/21/23 19:55 Primary Reason for Your Visit: low sodium Attending Provider: Arsh Medina Primary Care Provider: Inocente Nichols Consulting Providers: Juanito Roman; Carol Rogers; Wes Pena; Sandeep Nava Instructions Additional Instructions / Restrictions: Follow up with your cardiology appointment in 3 weeks Discharge Orders/Prescriptions Prescriptions: New potassium chloride 20 mEq tablet extended release 20 meq PO BID Qty: 60 0RF Continued albuterol sulfate 90 mcg/actuation HFA aerosol inhaler 1 - 2 puff inhalation 4X/DAY PRN PRN (Reason: Sob &/Or Wheezing) Qty: 8.5 5RF hydrocodone-acetaminophen 5-325 mg tablet 1 tab PO Q8H Patient Comments: COULD NOT FULLY VERIFY WITH PT AT TIME OF MED REC. PER PT PHARMACY FILLED ON 01/21/23 atorvastatin 80 mg tablet 80 mg PO DAILY Qty: 30 5RF Patient Comments: COULD NOT FULLY VERIFY WITH PT AT TIME OF MED REC. PER PT PHARMACY FILLED ON 01/15/23 lactulose 10 gram/15 mL solution 30 g PO BID PRN (Reason: constipation) olanzapine [Zyprexa] 15 mg tablet 15 mg PO QHS guaifenesin 400 mg tablet 400 mg PO TID fluticasone propionate 50 mcg/actuation spray,suspension 2 spray intranasal DAILY Patient Comments: COULD NOT FULLY VERIFY WITH PT AT TIME OF MED REC. PER PT PHARMACY FILLED ON 12/26/22 Rx Instructions: administer into each nostril loratadine 10 mg tablet 10 mg PO DAILY Patient Comments: COULD NOT FULLY VERIFY WITH PT AT TIME OF MED REC. PER PT PHARMACY FILLED ON 01/18/23 cholecalciferol (vitamin D3) 1,000 UNIT tablet 2,000 unit PO DAILY melatonin 3 MG tablet 3 mg PO QHS PRN (Reason: sleep aide) tamsulosin 0.4 MG capsule 0.8 mg PO QHS Rx Instructions: 2 -0.4mg caps finasteride 5 MG tablet 5 mg PO QHS omeprazole 20 MG capsule 20 mg PO DAILY mineral oil Enema 133 ml [place] DAILY PRN (Reason: Constipation) Pulmicort Flexhaler 180 mcg/actuation Aerosol Powdr Breath Activated 2 inh INHALATION BID folic acid 1 MG tablet 1 mg PO DAILY@0800 multivitamin Tablet 1 tab PO DAILY losartan 50 mg tablet 50 mg PO DAILY Patient Comments: COULD NOT FULLY VERIFY WITH PT AT TIME OF MED REC. PER PT PHARMACY FILLED ON 01/15/23 bisacodyl 10 mg Suppository 10 mg [place] DAILY PRN (Reason: Constipation) thiamine HCl (vitamin B1) 100 MG tablet 100 mg PO DAILYCM divalproex [Depakote ER] 250 mg tablet extended release 24 hr 500 mg PO QHS furosemide 40 mg tablet 40 mg PO BID Patient Comments: COULD NOT FULLY VERIFY WITH PT AT TIME OF MED REC. PER PT PHARMACY FILLED ON 01/07/23 aspirin [Adult Low Dose Aspirin] 81 mg tablet,delayed release (DR/EC) 81 mg PO DAILY Discontinued magnesium hydroxide 400 mg/5 mL Suspension 400 mg PO DAILY PRN (Reason: Constipation) sodium chloride 1,000 mg Tablet,Soluble 1,000 mg PO TID Qty: 90 0RF Patient Comments: COULD NOT FULLY VERIFY WITH PT AT TIME OF MED REC. PER PT PHARMACY FILLED ON 12/31/22 Referrals / Follow Up: Elvis Masterson MD [Med Staff - Active Staff] - See Referral Note (in 3 weeks) Inocente Nichols MD [Primary Care Provider] - Within 1 Week Disposition Disposition (needs filled in before D/C Order can be placed): Home, Self Care Charges/Coding Visit Charges Inpatient E&M: 01775 Disch Hosp >30min
== END 2023-01-26 18:28 | disposition home or self-care (01) | DRG 641 ==
LOC: ED 20:02 → ICU 20:13 → PCU 01-24 16:13
PROVIDERS: Internal Medicine; Admitting Provider Hospitalist; Emergency Provider Emergency Medicine; PCP Internal Medicine; Visit Provider Internal Medicine
DX: E87.1 Hypo-osmolality and hyponatremia (principal); C34.90 Malignant neoplasm of unspecified part of unspecified bronchus or lung; I47.21 Torsades de pointes; F25.9 Schizoaffective disorder, unspecified; J44.9 Chronic obstructive pulmonary disease, unspecified; F31.9 Bipolar disorder, unspecified; I48.91 Unspecified atrial fibrillation; I73.9 Peripheral vascular disease, unspecified; I10 Essential (primary) hypertension; E78.5 Hyperlipidemia, unspecified; F17.210 Nicotine dependence, cigarettes, uncomplicated; I25.10 Atherosclerotic heart disease of native coronary artery without angina pectoris; F10.10 Alcohol abuse, uncomplicated; R00.1 Bradycardia, unspecified; E87.6 Hypokalemia; G89.29 Other chronic pain; R53.1 Weakness; Z80.42 Family history of malignant neoplasm of prostate; R74.02 Elevation of levels of lactic acid dehydrogenase [LDH]; Z80.1 Family history of malignant neoplasm of trachea, bronchus and lung; Z79.52 Long term (current) use of systemic steroids; R53.81 Other malaise; Z79.51 Long term (current) use of inhaled steroids
CPT/HCPCS: 36415; 71045; 73590; 80048; 80053; 81001; 82962; 83605; 83735; 83880; 83930; 83935; 84100; 84300; 84443; 84484; 84550; 85025; 85610; 87040; 93005; 94640; 94668; 97110; 97116; 97162; 97166; 97530; 97535; 99284; 99406; J7030; A4216; J1940; J2405; J2597

== ENCOUNTER 2023-02-03 14:34 | Inpatient (IN) | payer MEDICARE, MEDICAID, SELFPAY ==
[2023-02-03] VITALS (7 sets, daily range): BP systolic 128–152; BP diastolic 51–78; PULSE 48–78; RESP 14–18; TEMP 36.6–36.9; O2SAT 92–98; BMI 17.2; BMI 30.1; BMI 35.2
--- NOTE | 2023-02-03 14:55 | EDS_ITS ---
HPI History of Present Illness Chief Complaint: Wound Informant: patient and mental health staff Narrative Narrative: History is from patient. I also talked to our socially responsible investment adviser who would talk to the visiting nurse about this patient. He was sent in here because his left leg has gotten notably more red swollen any purulent drainage over the last 2 to 3 days. They are also concerned because he is not really able to care for himself at home. When assisted up he can walk maybe 2 steps. Patient states he is not having fevers chills nausea or vomiting. He he thinks he has COPD but is not having trouble breathing now. He admits to the leg drainage but states is not really hurting that much. He denies being on blood thinners. Evidently he was okay with coming into a senior care facility now. He did not want to be admitted when he was in the hospital just recently but feels he is not able to care for himself well at home. [facility] Medical History Acute exacerbation of chronic obstructive pulmonary disease Acute hyponatremia Adenocarcinoma of left lung Adult failure to thrive AF (paroxysmal atrial fibrillation) Alcohol dependence Alcoholic polyneuropathy Anxiety Bilateral edema of lower extremity Bipolar disorder BPH without obstruction/lower urinary tract symptoms Bradycardia CAD (coronary artery disease) Cancer Chronic hip pain, bilateral Chronic low back pain Closed subcapital fracture of right femur COLD (chronic obstructive lung disease) COPD (chronic obstructive pulmonary disease) Decubitus ulcer of right buttock, stage 2 Dermatophytosis of nail Dyspnea Elevated lactic acid level Fall Generalized weakness GERD (gastroesophageal reflux disease) High cholesterol History of colon polyps HLD (hyperlipidemia) HTN (hypertension) Irregular heartbeat Lymphedema Macrocytic anemia Nodule of right lung Nondisp fx proximal phalanx lesser toe right foot w/routine heal Obesity (BMI 30.0-34.9) PAD (peripheral artery disease) Paroxysmal atrial fibrillation Physical debility Pre-procedure lab exam Primary adenocarcinoma of lower lobe of right lung Primary adenocarcinoma of upper lobe of left lung Pulmonary hypertension PVD (peripheral vascular disease) Schizoaffective disorder Seasonal allergic rhinitis Skin tear Smoker Spinal stenosis of lumbar region with neurogenic claudication Stage I decubitus ulcer and pressure area Stenosis of esophagus Tobacco use disorder Unable to ambulate Urinary incontinence Wound of right foot Home Medications cholecalciferol (vitamin D3) 25 mcg (1,000 unit) tablet 2,000 unit PO DAILY supplement 02/22/19 [History Last Taken 03/07/22] finasteride 5 mg tablet 5 mg PO QHS prostate 02/22/19 [History Last Taken 03/06/22] melatonin 3 mg tablet 3 mg PO QHS PRN SLEEP 02/22/19 [History Last Taken 05/19/21] tamsulosin 0.4 mg capsule 0.8 mg PO QHS urinary issues 02/22/19 [History Last Taken 03/06/22] omeprazole 20 mg capsule,delayed release 20 mg PO DAILY ACID REFLUX 01/09/20 [History Last Taken 03/07/22] budesonide 180 mcg/actuation breath activated powder inhaler (Pulmicort Flexhaler) 2 inh inhalation BID WHEEZING/SHORTNESS OF BREATH 12/19/21 [History Last Taken 03/07/22] mineral oil 133 ml OR DAILY PRN Constipation 12/19/21 [History Last Taken Unknown] bisacodyl 10 mg rectal suppository 10 mg OR DAILY PRN Constipation 03/07/22 [History Last Taken Unknown] folic acid 1 mg tablet 1 mg PO DAILY SUPPLEMENT 03/07/22 [History Last Taken 03/07/22] losartan 50 mg tablet 50 mg PO DAILY BLOOD PRESSURE 03/07/22 [History Last Taken 03/07/22] multivitamin 1 tab PO DAILY supplement 03/07/22 [History Last Taken 03/07/22] thiamine HCl (vitamin B1) 100 mg tablet 100 mg PO DAILYCM supplement 03/07/22 [History Last Taken 03/07/22] furosemide 40 mg tablet 40 mg PO BID FLUID 08/11/22 [History Last Taken Unknown] hydrocodone-acetaminophen 5-325mg 5mg-325mg 1 tab PO Q8H PAIN 09/24/22 [History Last Taken Unknown] atorvastatin 80 mg tablet 80 mg PO DAILY CHOLESTEROL #30 tabs 10/14/22 [Rx Last Taken Unknown] aspirin 81 mg tablet,delayed release (Adult Low Dose Aspirin) 81 mg PO DAILY HEALTH MAINTENANCE 01/21/23 [History Last Taken Unknown] divalproex 250 mg tablet,extended release 24 hr (Depakote ER) 500 mg PO QHS mental health 01/21/23 [History Last Taken Unknown] fluticasone propionate 50 mcg/actuation nasal spray,suspension 2 spray intranasal DAILY SINUS 01/21/23 [History Last Taken Unknown] guaifenesin 400 mg tablet 400 mg PO TID COUGH 01/21/23 [History Last Taken Unknown] lactulose 10 gram/15 mL oral solution 30 g PO BID PRN constipation 01/21/23 [History Last Taken Unknown] loratadine 10 mg tablet 10 mg PO DAILY ALLERGIES 01/21/23 [History Last Taken Unknown] olanzapine 15 mg tablet (Zyprexa) 15 mg PO QHS Mental disorder 01/21/23 [History Last Taken Unknown] potassium chloride 20 mEq tablet,extended release 20 meq PO BID SUPPLEMENT #60 tabs 01/26/23 [Rx Last Taken Unknown] albuterol sulfate 90 mcg/actuation aerosol inhaler 1 - 2 puff inhalation 4X/DAY PRN Sob &/Or Wheezing 02/03/23 [History Last Taken Unknown] sodium chloride 1,000 mg soluble tablet 1,000 mg PO TID SUPPLEMENT 02/03/23 [H istory Last Taken Unknown] Allergy/AdvReac Type Severity Reaction Status Date / Time venom-honey bee Allergy Severe Anaphylaxis Verified 02/03/23 14:35 [bee venom (honey bee)] Family History Father Prostate cancer Mother Lung cancer Surgical History History of heart artery stent History of heart artery stent History of hernia repair History of right hip replacement Social History household members: none Smoking Status: Current every day smoker tobacco type: cigarettes Tobacco: How many years used: 60 second hand exposure: No quit status: has quit before alcohol intake: current alcohol intake frequency: 0-2 drinks per day Alcohol type: beer details: 2 beers every evening substance use type: does not use caffeine: Yes Type: coffee Number of servings: 2 luis/uatsdin: None seatbelt use: always do you feel safe at home: Yes ROS ROS ED ROS Narrative A complete review of systems was performed and is negative except as documented in the history of present illness. Some specific details below. Constitutional: No recent fevers or chills. No malaise but he does have just generalized weakness. EYE: No visual complaints ENT: No difficulty swallowing. CV: No chest pain or palpitations. Respiratory: No dyspnea. No hemoptysis. No difficulty taking breaths. He does have COPD. GI: Patient states he is eating normally and is not nauseated and is not having diarrhea. : No frequency dysuria or hematuria. Musculoskeletal: See history of present illness. Patient also had a fall 2 days ago. He states he went down on his hands and knees and then scraped his head on the carpet. He never lost consciousness and he is not having pain from that fall. Skin: See history of present illness. Neuro: No focal weakness or numbness. He does have generalized weakness though. Endocrine: No polyuria or polydipsia. EXAM Physical Exam Narrative Exam Narrative: CONSTITUTIONAL: Patient is nontoxic in appearance. The patient looks comfortable. He does look chronically ill and overall weak but not acutely ill or toxic. HEENT: Patient does have some abrasions on his forehead and top of the head. But no step-off or swelling. Mucous membranes moist. EYES: No conjunctival injection. No proptosis. CARDIOVASCULAR: Regular rate. Regular rhythm. No notable murmur. No JVD. There is a questionable history of A-fib but he sounds regular at this time. RESPIRATORY: No respiratory distress. Breathing is unlabored. Saturations are normal at 98% on room air. He does have some coarse breath sounds but they sound mostly upper airway transmitted sounds. GASTROINTESTINAL: Obese but not distended. Patient states his abdominal girth is the same as always. Bowel sounds are normal. No tenderness. No guarding. No rebound. GENITOURINARY: No tenderness over the bladder. No CVA tenderness. MUSCULOSKELETAL: No deformity. Both lower extremities have abrasions on the poe and some redness. But the left is clearly more red more swollen on the anterior poe and the abrasion is moist and draining some serous/purulent material. The right area is dried. The left poe is also warm and the right is not. NEUROLOGICAL: Patient is alert and appropriate. SKIN: See above. PSYCHIATRIC: Patient is calm. Mood is appropriate. Const Vital Signs: 02/03/23 14:35 02/03/23 14:38 02/03/23 16:34 Temperature 97.8 F 97.8 F 97.8 F Temperature Source Temporal Temporal Temporal Pulse Rate 50 L 78 48 L Respiratory Rate 14 14 14 Blood Pressure 152/60 H 141/56 H 142/76 H Blood Pressure Mean 90 84 98 Pulse Ox 98 98 95 Oxygen Delivery Method Room Air Room Air Room Air MDM MDM MDM Narrative Medical decision making narrative: Patient's white count is 19,100. This further supports cellulitis on his left leg. He has anemia which is not totally new. Electrolytes show marked abnormalities with significant hyponatremia again. Renal function is preserved. Lactic acid is normal. My independent her potation or single view chest x-ray does show a little bit of haziness at the left base. Radiology reads it is slightly worse than before. But he is not hypoxic or coughing more or different than normal. He does not feel short of breath. My independent rotation is 4 view x-ray of the left tib-fib show calcified arteries but no sign of acute fracture or obvious osteomyelitis. Final reading is soft tissue swelling around the ankle. With the patient's hyponatremia, infection, white count and global weakness he will be admitted to the hospital. I discussed case with the hospitalist. Lab Data Attestation: I reviewed the patient's lab results. Labs: Laboratory Results - last 24 hr 02/03/23 15:32 WBC 19.1 H RBC 3.51 L Hgb 11.7 L Hct 34.2 L MCV 97.4 H MCH 33.3 H MCHC 34.2 RDW Std Deviation 51.5 H RDW Coeff of Fredi 14.4 Plt Count 371 MPV 8.9 Immature Gran % (Auto) 1.800 H Neut % (Auto) 84.6 H Lymph % (Auto) 6.2 L [place] % (Auto) 6.8 Eos % (Auto) 0.3 Baso % (Auto) 0.3 Absolute Neuts (auto) 16.2 H Absolute Lymphs (auto) 1.19 Nucleated RBC % 0 Sodium 113 L* Potassium 3.9 Chloride 71 L* Carbon Dioxide 32.0 Anion Gap 10 BUN 11 Creatinine 0.75 Estim Creat Clear Calc 71.13 Est GFR (MDRD) Af Amer 131 Est GFR (MDRD) Non-Af 108 BUN/Creatinine Ratio 14.7 Glucose 102 Lactic Acid 1.7 Calcium 8.8 Radiography Diagnostic Testing: Clinical Impression(s) from Imaging Studies Chest X-Ray 02/03/23 15:35 IMPRESSION: Pulmonary findings appear worse. Electronically Signed: Cisco Carlisle MD at 15:48 EDT , Tibia/Fibula X-Ray 02/03/23 16:00 IMPRESSION: Soft tissue swelling around the ankle. Electronically Signed: Cisco Carlisle MD at 16:22 EDT , EKG Initial EKG: Comments: Plan of interpretation the patient's EKG shows atrial fibrillation with bradycardia at 50. No ventricular ectopy. QRS duration and QTc are normal. Discharge Plan Triage Chief Complaint: Wound ED Provider: Sean Loo Dx/Rx/DC Orders Clinical Impression: Cellulitis of left lower extremity, Hyponatremia, Leukocytosis Prescriptions: No Action albuterol sulfate 90 mcg/actuation HFA aerosol inhaler 1 - 2 puff inhalation 4X/DAY PRN PRN (Reason: Sob &/Or Wheezing) Qty: 8.5 5RF hydrocodone-acetaminophen 5-325 mg tablet 1 tab PO Q8H Patient Comments: COULD NOT FULLY VERIFY WITH PT AT TIME OF MED REC. PER PT PHARMACY FILLED ON 01/21/23 atorvastatin 80 mg tablet 80 mg PO DAILY Qty: 30 5RF Patient Comments: COULD NOT FULLY VERIFY WITH PT AT TIME OF MED REC. PER PT PHARMACY FILLED ON 01/15/23 lactulose 10 gram/15 mL solution 30 g PO BID PRN (Reason: constipation) olanzapine [Zyprexa] 15 mg tablet 15 mg PO QHS guaifenesin 400 mg tablet 400 mg PO TID fluticasone propionate 50 mcg/actuation spray,suspension 2 spray intranasal DAILY Patient Comments: COULD NOT FULLY VERIFY WITH PT AT TIME OF MED REC. PER PT PHARMACY FILLED ON 12/26/22 Rx Instructions: administer into each nostril loratadine 10 mg tablet 10 mg PO DAILY Patient Comments: COULD NOT FULLY VERIFY WITH PT AT TIME OF MED REC. PER PT PHARMACY FILLED ON 01/18/23 cholecalciferol (vitamin D3) 1,000 UNIT tablet 2,000 unit PO DAILY melatonin 3 MG tablet 3 mg PO QHS PRN (Reason: SLEEP ) tamsulosin 0.4 MG capsule 0.8 mg PO QHS Rx Instructions: 2 -0.4mg caps finasteride 5 MG tablet 5 mg PO QHS omeprazole 20 MG capsule 20 mg PO DAILY mineral oil Enema 133 ml OR DAILY PRN (Reason: Constipation) Pulmicort Flexhaler 180 mcg/actuation Aerosol Powdr Breath Activated 2 inh INHALATION BID folic acid 1 MG tablet 1 mg PO DAILY multivitamin Tablet 1 tab PO DAILY losartan 50 mg tablet 50 mg PO DAILY bisacodyl 10 mg Suppository 10 mg OR DAILY PRN (Reason: Constipation) thiamine HCl (vitamin B1) 100 MG tablet 100 mg PO DAILYCM divalproex [Depakote ER] 250 mg tablet extended release 24 hr 500 mg PO QHS furosemide 40 mg tablet 40 mg PO BID Patient Comments: COULD NOT FULLY VERIFY WITH PT AT TIME OF MED REC. PER PT PHARMACY FILLED ON 01/07/23 aspirin [Adult Low Dose Aspirin] 81 mg tablet,delayed release (DR/EC) 81 mg PO DAILY potassium chloride 20 mEq tablet extended release 20 meq PO BID Qty: 60 0RF sodium chloride 1,000 mg tablet,soluble 1,000 mg PO TID Primary Care Provider: Inocente Nichols Referrals: Inocente Nichols MD [Primary Care Provider] - Disposition Disposition: Acute Care Hospital [facility]
--- NOTE | 2023-02-03 14:57 | CM.ED ---
Social Work SW met with MD Loo to review handoff information provided by [facility] Ha including: patient couldn't walk more than two steps today, is agreeable to SNF placement, [facility] and may be appropriate for Hospice but unsure if patient is agreeable to those services. to further consult with AMY if needs arise. Plan: CONCEPCIÓN Brito HAND ROLLER ENGRAVER, [place]IL[place]
--- NOTE | 2023-02-03 15:35 | RAD_ITS ---
STUDY: XR Chest 1 View 02/03/2023 3:34 PM REASON FOR EXAM: Male, 72 years old. CHEST PAIN COPD COMPARISON: 7.5. TECHNIQUE: XR Chest 1 View FINDINGS: There is no demonstrated pleural abnormality. There are no acute findings. Enlarged heart size. Normal mediastinum. Normal sofía. Prominent appearing increased interstitial lung markings. Normal visualized pulmonary arteries. There is atherosclerotic calcification of the aortic arch with tortuosity. There are diffuse degenerative changes of the visualized thoracic spine. There is degenerative osteoarthritis of the bilateral shoulders. There is no demonstrated abnormality of the visualized soft tissue structures of the upper abdomen. RAD/Chest 1 View (Portable) IMPRESSION: Pulmonary findings appear worse. Electronically Signed: Cisco Carlisle MD at 15:48 EDT ,
[2023-02-03 15:44] LABS: Absolute Lymphocyte Count 1.19 X10^3/uL (0.83-4.51); Absolute Neutrophil Count 16.2 X10^3/uL (2.0-7.7); Basophil# 0.06 X10^3/uL; Basophil% 0.3 % (0-1); Eosinophil# 0.05 X10^3/uL; Eosinophils% 0.3 % (0-5); Hematocrit 34.2 % (40-54); Hemoglobin 11.7 g/dL (13.0-16.5); Lymphocyte # 1.19 X10^3/ul (0.83-4.51); Lymphocyte % 6.2 % (19-41); Mean Corp Hgb Conc 34.2 g/dL (32-36); Mean Corpuscular Hgb 33.3 pg (27.0-32.0); Mean Corpuscular Volume 97.4 fL (80-94); Mean Platelet Vol. 8.9 fl (6.2-12.0); Monocyte# 1.31 X10^3/uL; Monocyte% 6.8 % (0-10); NRBC Flagged by Analyzer 0 % (0-5); Neutrophil # 16.17 X10^3/uL (2.7-7.7); Neutrophil % 84.6 % (47-70); Platelet Count 371 K/mm3 (150-450); RBC Distribution Width CV 14.4 % (11.6-14.6); RBC Distribution Width SD 51.5 fl (35.1-43.9); Red Blood Count 3.51 M/mm3 (4.6-6.2); White Blood Count 19.1 K/mm3 (4.4-11.0)
--- NOTE | 2023-02-03 16:00 | RAD_ITS ---
EXAM: XR LEFT TIBIA AND FIBULA, 2 VIEWS CLINICAL INDICATION: Infection, question osteo TECHNIQUE: Frontal and lateral views of the left tibia and fibula. COMPARISON: No relevant prior studies available. FINDINGS: BONES/JOINTS: Degenerative findings of the knee. No acute fracture. No subluxation. Normal alignment. No sclerotic or destructive changes observed. SOFT TISSUES: Soft tissue swelling around the ankle. No radiopaque foreign body. VASCULATURE: There are atherosclerotic vascular calcifications. RAD/Tibia & Fibula 2 Views IMPRESSION: Soft tissue swelling around the ankle. Electronically Signed: Cisco Carlisle MD at 16:22 EDT ,
[2023-02-03 16:06] LABS: Anion Gap 10 (5-15); BUN 11 mg/dL (7-18); BUN/Creat Ratio 14.7 RATIO (10-20); Calcium,Total 8.8 mg/dL (8.5-10.1); Chloride 71 mmol/L (98-107); Creatinine, Serum 0.75 mg/dL (0.70-1.30); EST Glomerular Filtration Rate 108 mL/min (>60); Est Glom Filt Rate - Afr Amer 131 mL/min (>60); Estimated Creatinine Clearance 71.13 ml/min; Glucose 102 mg/dL (74-106); Potassium 3.9 mmol/L (3.5-5.1); Sodium Level 113 mmol/L (136-145)
[2023-02-03 16:18] LABS: Lactic Acid 1.7 mmol/L (0.4-1.9)
--- NOTE | 2023-02-03 16:44 | NURSING ---
DR TJ ZARATE
--- NOTE | 2023-02-03 16:52 | NURSING ---
PCU TJ HYPONATREMIA, LEFT LOWER LEG CELLULITIS
--- NOTE | 2023-02-03 17:01 | PCM.HP.STD ---
HPI - General General Date of Admission: 02/03/23 Date of Service: 02/03/23 HPI Narrative KELLY YOU, is a 72 M who presented to the department at [facility] for a left lower extremity wound. He was seen by visiting nurse and was sent to the emergency department because his left lower extremity was more swollen and got noticeably more red over the last 2 to 3 days. They were also concerned as he has not really been able to care for himself at home. They indicated that when he ambulates he can maybe walk about 2 steps. He was recently admitted here for an extended period of time from 01/21/2023 through 01/26/2023 at which time it was recommended he go to a nursing facility however he deferred and wanted to go home. He did not even really want to be admitted for his last hospitalization. Patient is extremely poor informant and denies that he has any current issues. He is fairly adamant that he wants to go back home and live with a sister again however seems somewhat amenable to a short-term stay at a skilled facility. He admits that he does not fluid restrict at home and he still drinking approximately 2-4 beers daily. He denies any pain in his left lower extremity but it is reported his mobility is extremely limited. Vital signs on presentation demonstrated a temperature of 97.8, blood pressure 134/78, heart rate 66, respiratory rate 14 oxygen saturations are 96% on room air. CBC shows a leukocytosis with a white count of 19.1 and a left shift showing an 84.6% neutrophilia. He is a mild chronic stable anemia with hemoglobin of 11.7. Platelet count is normal. His chemistry panel is unremarkable other than a sodium of 113 and a chloride of 71. Lactic acid was 1.7. Chest x-ray reviewed by me and appears stable when compared to previous chest x-ray from 01/21/2023. Left lower extremity tibia and fibula x-rays show soft tissue swelling but no other significant abnormalities. EKG shows A-fib with rate control and no acute ST-T wave changes concerning for schemia. Cultures were obtained and he was started on broad-spectrum antibiotics in the emergency department. Request for admission was made. [facility] Medical History Acute exacerbation of chronic obstructive pulmonary disease Acute hyponatremia Adenocarcinoma of left lung Adult failure to thrive AF (paroxysmal atrial fibrillation) Alcohol dependence Alcoholic polyneuropathy Anxiety Bilateral edema of lower extremity Bipolar disorder BPH without obstruction/lower urinary tract symptoms Bradycardia CAD (coronary artery disease) Cancer Chronic anemia Chronic hip pain, bilateral Chronic low back pain Closed subcapital fracture of right femur COLD (chronic obstructive lung disease) COPD (chronic obstructive pulmonary disease) Decubitus ulcer of right buttock, stage 2 Dermatophytosis of nail Dyspnea Elevated lactic acid level Fall Generalized weakness GERD (gastroesophageal reflux disease) High cholesterol History of colon polyps HLD (hyperlipidemia) HTN (hypertension) Irregular heartbeat Lymphedema Macrocytic anemia Nodule of right lung Nondisp fx proximal phalanx lesser toe right foot w/routine heal Obesity (BMI 30.0-34.9) PAD (peripheral artery disease) Paroxysmal atrial fibrillation Physical debility Pre-procedure lab exam Primary adenocarcinoma of lower lobe of right lung Primary adenocarcinoma of upper lobe of left lung Pulmonary hypertension PVD (peripheral vascular disease) Schizoaffective disorder Seasonal allergic rhinitis Skin tear Smoker Spinal stenosis of lumbar region with neurogenic claudication Stage I decubitus ulcer and pressure area Stenosis of esophagus Tobacco use disorder Unable to ambulate Urinary incontinence Wound of right foot Home Medications cholecalciferol (vitamin D3) 25 mcg (1,000 unit) tablet 2,000 unit PO DAILY supplement 02/22/19 [History Last Taken 02/03/23] finasteride 5 mg tablet 5 mg PO QHS prostate 02/22/19 [History Last Taken 02/02/23] melatonin 3 mg tablet 3 mg PO QHS PRN SLEEP 02/22/19 [History Last Taken 02/02/23] tamsulosin 0.4 mg capsule 0.8 mg PO QHS urinary issues 02/22/19 [History Last Taken 02/02/23] omeprazole 20 mg capsule,delayed release 20 mg PO DAILY ACID REFLUX 01/09/20 [History Last Taken 02/03/23] budesonide 180 mcg/actuation breath activated powder inhaler (Pulmicort Flexhaler) 2 inh inhalation BID WHEEZING/SHORTNESS OF BREATH 12/19/21 [History Last Taken 02/03/23] mineral oil 133 ml KS DAILY PRN Constipation 12/19/21 [History Last Taken Unknown] bisacodyl 10 mg rectal suppository 10 mg KS DAILY PRN Constipation 03/07/22 [History Last Taken Unknown] folic acid 1 mg tablet 1 mg PO DAILY SUPPLEMENT 03/07/22 [History Last Taken 02/03/23] losartan 50 mg tablet 50 mg PO DAILY BLOOD PRESSURE 03/07/22 [History Last Taken 02/03/23] multivitamin 1 tab PO DAILY supplement 03/07/22 [History Last Taken 02/03/23] thiamine HCl (vitamin B1) 100 mg tablet 100 mg PO DAILYCM supplement 03/07/22 [History Last Taken 02/03/23] furosemide 40 mg tablet 40 mg PO BID FLUID 08/11/22 [History Last Taken 02/03/23] hydrocodone-acetaminophen 5-325mg 5mg-325mg 1 tab PO Q8H PAIN 09/24/22 [History Last Taken Unknown] atorvastatin 80 mg tablet 80 mg PO DAILY CHOLESTEROL #30 tabs 10/14/22 [Rx Last Taken 02/03/23] aspirin 81 mg tablet,delayed release (Adult Low Dose Aspirin) 81 mg PO DAILY HEALTH MAINTENANCE 01/21/23 [History Last Taken 02/03/23] divalproex 250 mg tablet,extended release 24 hr (Depakote ER) 500 mg PO QHS mental health 01/21/23 [History Last Taken 02/02/23] fluticasone propionate 50 mcg/actuation nasal spray,suspension 2 spray intranasal DAILY SINUS 01/21/23 [History Last Taken 02/03/23] guaifenesin 400 mg tablet 400 mg PO TID COUGH 01/21/23 [History Last Taken 02/03/23] lactulose 10 gram/15 mL oral solution 30 g PO BID PRN constipation 01/21/23 [History Last Taken Unknown] loratadine 10 mg tablet 10 mg PO DAILY ALLERGIES 01/21/23 [History Last Taken 02/03/23] olanzapine 15 mg tablet (Zyprexa) 15 mg PO QHS Mental disorder 01/21/23 [History Last Taken 02/02/23] potassium chloride 20 mEq tablet,extended release 20 meq PO BID SUPPLEMENT #60 tabs 01/26/23 [Rx Last Taken 02/03/23] albuterol sulfate 90 mcg/actuation aerosol inhaler 1 - 2 puff inhalation 4X/DAY PRN Sob &/Or Wheezing 02/03/23 [History Last Taken Unknown] sodium chloride 1,000 mg soluble tablet 1,000 mg PO TID SUPPLEMENT 02/03/23 [History Last Taken 02/03/23] Allergy/AdvReac Type Severity Reaction Status Date / Time venom-honey bee Allergy Severe Anaphylaxis Verified 02/03/23 14:35 [bee venom (honey bee)] Family History Father Prostate cancer Mother Lung cancer Surgical History History of heart artery stent History of heart artery stent History of hernia repair History of right hip replacement Social History household members: none Smoking Status: Current every day smoker tobacco type: cigarettes Tobacco: How many years used: 60 second hand exposure: No quit status: has quit before alcohol intake: current alcohol intake frequency: 0-2 drinks per day Alcohol type: beer details: 2 beers every evening substance use type: does not use caffeine: Yes Type: coffee Number of servings: 2 luis/bahai: None seatbelt use: always do you feel safe at home: Yes ROS Constitutional Constitutional: Reports weakness; Denies anorexia, change in weight, chills, fatigue, fever(s), malaise, night sweats or other Eyes Eyes: Denies blurry vision, change in eye color, change in vision, discharge from eye(s), double vision, erythema, eye pain, loss of vision or other ENT HEENT: Denies abnormal hearing, dysphagia, ear pain, epistaxis, headache(s), hearing loss, nasal congestion, nasal discharge, post nasal drip, sinus pressure, sore throat or other Cardiovascular Cardiovascular: Reports edema; Denies chest pain, claudication, dyspnea on exertion, lightheadedness, orthopnea, palpitations, paroxysmal nocturnal dyspnea, rapid heart rate, syncope or other Respiratory/Chest Respiratory/Chest: Reports cough and other Details: Intermittent shortness of breath depending on his COPD Gastrointestinal Gastrointestinal: Denies abdominal pain, coffee ground emesis, constipation, diarrhea, dyspepsia, hematemesis, hematochezia, loose stools, melena, nausea, vomiting or other Genitourinary Genitourinary: Reports difficulty urinating, nocturia, urinary frequency and urinary hesitancy; Denies burning urination, dysuria, hematuria, urinary incontinence, urinary urgency or other Musculoskeletal Musculoskeletal: Reports back pain and joint stiffness; Denies arthralgias, joint pain, joint swelling, myalgias, neck pain or other Neurologic Neurologic: Reports abnormal gait; Denies abnormal speech, confusion, disequilibrium, dizziness, focal weakness, headache(s), numbness, paresthesias, seizure-like activity, seizures, syncope, tingling, tremor(s) or other Psychiatric Psychiatric: Reports anxiety and depression; Denies homicidal ideation, suicidal ideation or other Endocrine Endocrinology: Denies change in body appearance, cold intolerance, excessive sweating, heat intolerance, polydipsia, polyuria or other Hematologic/Lymphatic Hematologic/Lymphatic: Denies anemia, easy bleeding, easy bruising, lymphadenopathy or other Allergic/Immunologic Allergic/Immunologic: Denies rhinitis, hives, eczemia, asthma or other Vital Signs Vital Signs Vital Signs: 02/03/23 14:35 02/03/23 14:38 02/03/23 16:34 Temperature 97.8 F 97.8 F 97.8 F Temperature Source Temporal Temporal Temporal Pulse Rate 50 L 78 48 L Respiratory Rate 14 14 14 Blood Pressure 152/60 H 141/56 H 142/76 H Blood Pressure Mean 90 84 98 Pulse Ox 98 98 95 Oxygen Delivery Method Room Air Room Air Room Air 02/03/23 16:50 Temperature 97.8 F Temperature Source Temporal Pulse Rate 60 Respiratory Rate 14 Blood Pressure 134/78 H Blood Pressure Mean 96 Pulse Ox 96 Oxygen Delivery Method Room Air Weight Weight: 100.7 kg Body Mass Index (BMI) 30.1 Physical Exam Const alert, oriented x3, no apparent distress and well nourished; Negative for average body habitus or healthy appearing Constitutional Narrative: Obese, elderly, white male, sitting up in bed, appears much older than stated age, nontoxic, appears comfortable, appears chronically ill General Appearance: cooperative HEENT normocephalic, hearing grossly normal bilaterally and moist oral mucous membranes; Negative for head/scalp atraumatic HEENT Narrative: Abrasion on forehead from recent fall, dentition is poor, Mallampati is 2-3, no thrush, mild to moderate hearing loss Eyes PERRL, EOMs intact bilaterally and conjunctivae normal Eyes Narrative: No scleral icterus this Neck no lymphadenopathy and supple Neck Narrative: Neck is short and thick, trachea is midline Resp normal respiratory effort, no retractions, no use of accessory muscles and No clear to auscultation bilaterally Resp Narrative: Diffusely diminished with few scattered end expiratory wheezes Auscultation: wheezes; Negative for rales or rhonchi Cardio regular rate, S1 normal heart sound, S2 normal heart sound, no murmurs, no rub, no gallops and no clicks Cardio Narrative: Irregularly irregular rhythm GI normal to inspection, nondistended, normoactive bowel sounds, soft to palpation and non-tender Extremity Extremity Narrative: Significant left lower extremity edema with increased tissue temperature and and rubor, no clubbing or cyanosis Skin No no rashes or lesions noted, No no wounds, no jaundice, no petechiae and no mottling Skin Narrative: Bilateral lower extremities with signs of chronic venous stasis however left lower extremity acutely red and swollen with multiple wounds with surrounding eschar, multiple ecchymosis bilateral upper extremities distally Neuro oriented x3, CN's II-XII intact bilaterally, moves all extremities and no focal motor deficits Neuro Narrative: Severe generalized weakness Speech: speech normal Motor Exam: Negative for strength 5/5 throughout Psych affect normal Psych Narrative: Eye contact is good, patient interacts appropriately Results Lab / Micro Data Attestation: I reviewed the patient's lab results. 02/03/23 15:32 02/03/23 15:32 Labs: Laboratory Results - last 24 hr 02/03/23 15:32: WBC 19.1 H, RBC 3.51 L, Hgb 11.7 L, Hct 34.2 L, MCV 97.4 H, MCH 33.3 H, MCHC 34.2, RDW Std Deviation 51.5 H, RDW Coeff of Fredi 14.4, Plt Count 371, MPV 8.9, Immature Gran % (Auto) 1.800 H, Neut % (Auto) 84.6 H, Lymph % (Auto) 6.2 L, [place] % (Auto) 6.8, Eos % (Auto) 0.3, Baso % (Auto) 0.3, Absolute Neuts (auto) 16.2 H, Absolute Lymphs (auto) 1.19, Nucleated RBC % 0, Sodium 113 L*, Potassium 3.9, Chloride 71 L*, Carbon Dioxide 32.0, Anion Gap 10, BUN 11, Creatinine 0.75, Estim Creat Clear Calc 71.13, Est GFR (MDRD) Af Amer 131, Est GFR (MDRD) Non-Af 108, BUN/Creatinine Ratio 14.7, Glucose 102, Lactic Acid 1.7, Calcium 8.8 Radiology Impression Chest X-Ray 02/03/23 15:35 IMPRESSION: Pulmonary findings appear worse. Electronically Signed: Cisco Carlisle MD at 15:48 EDT , Tibia/Fibula X-Ray 02/03/23 16:00 IMPRESSION: Soft tissue swelling around the ankle. Electronically Signed: Cisco Carlisle MD at 16:22 EDT , Assessment & Plan Assessment/Plan (1) Leukocytosis: (2) Hyponatremia: (3) Cellulitis of left lower extremity: (4) Abdominal distention: PLAN: Plan Left lower extremity cellulitis -Multiple wounds noted as nidus for infection -With recent extended hospitalization could have resistant organisms and therefore will treat with vancomycin and Zosyn to start -Wound cultures -Blood cultures obtained -Wound care consult -With lower extremity swelling we will check Dopplers to rule out DVT Abdominal distention -Patient seems to have a fairly distended abdomen with what seems to be a fluid wave -Check CT of the abdomen and pelvis to rule out ascites Hyponatremia -Acute on chronic -Baseline appears to be between 120 and 125 -Currently 113 -Patient has not been fluid restricting at home -Continued to drink 2-4 beers daily -Fluid restrict to 1500 cc -Suspect this is where patient is lacking in compliance at home -Continue home Lasix -Continue home salt tablets -Nephrology consultation -Patient just had extensive work-up we will not pursue any further at this time as he did improve with previous treatment Leukocytosis -Suspect related to above infection -We will trend History of COPD -As needed aerosols -Continue home guaifenesin -Is not off independent at baseline -Continue Pulmicort and alar -No signs of acute exacerbation at this time History of adenocarcinoma of the lung -Patient has had adenocarcinoma of bilateral lungs -Has had a previous recent favorable PET scan -Follows at the [facility] -Clinically stable PAF -Patient is in A-fib but rate controlled on presentation -No anticoagulation due to alcohol use and frequent falls CAD/HPL/HTN -Continue home atorvastatin next-continue home Lasix -Continue home losartan -FEN continue home potassium supplementation Pulmonary hypertension -Suspect secondary to lung disease with who group 3 -Continue home Lasix Acute on chronic debility -PT/OT consultation -Patient will likely require skilled placement at discharge if the patient is willing BPH -Continue Flomax GERD -Continue PPI Seasonal allergies -Continue home loratadine Chronic constipation -Continue home lactulose -Continue home Dulcolax Chronic alcohol use -Patient drinks approximately 2-4 beers daily -Extensive discussion with the patient with regards to his alcohol use and that he needs to markedly limit this at home with abstinence being the best. Patient has indicated previously and at this admission he has no intention on quitting drinking alcohol Tobacco abuse -Patient states he is smoking a lot -Nicotine patch -Recommend cessation Bipolar disorder -Stable -Continue home psychiatric medications DVT prophylaxis -Subcu Lovenox 40 mg daily CODE STATUS -Full code Charges/Coding Visit Charges Inpatient E&M: 25610 Init Hosp L3
--- NOTE | 2023-02-03 17:16 | CT_ITS ---
EXAM: CT ABDOMEN AND PELVIS WITHOUT INTRAVENOUS CONTRAST CLINICAL INDICATION: Distention TECHNIQUE: Helically acquired images were obtained of the abdomen and pelvis without intravenous contrast. This CT exam was performed using one or more of the following dose reduction techniques: automated exposure control, adjustment of the mA and/or kV according to patient size, and/or use of iterative reconstruction technique. RADIATION DOSE: CTDIvol = 19.32 mGy, DLP = 1559.91 mGy-cm COMPARISON: 30.22 PET FINDINGS: LOWER THORAX: Bilateral lower lobe pneumonia. There is a small hiatal hernia. No cardiomegaly. No significant pericardial effusion. ABDOMEN: LIVER: Unremarkable. Normal liver. GALLBLADDER AND BILE DUCTS: There are multiple gallstones. No gallbladder distention or wall edema. No intra- or extrahepatic biliary ductal dilation. PANCREAS: There is diffuse atrophy of the pancreas. No focal cystic mass. SPLEEN: Unremarkable. Normal spleen. ADRENALS: Unremarkable. Normal bilateral adrenal glands. KIDNEYS AND URETERS: There are hypodensities in the right kidney. These are consistent for cysts. No follow up required. There are hypodensities in the left kidney. These are consistent for cysts. No follow up required. Normal renal size and position. No hydronephrosis. STOMACH AND BOWEL: Stool throughout the colon. No stomach or bowel distention. No focal inflammatory change. Normal small intestine. PELVIS: APPENDIX: There is non-visualization of the appendix. BLADDER: The urinary bladder is distended. This can suggest urinary retention. REPRODUCTIVE: Unremarkable as visualized. No mass. ABDOMEN and PELVIS: INTRAPERITONEAL SPACE: Unremarkable. No ascites or other fluid collection. No free air. BONES/JOINTS: There are compression deformities of L1 and L2. These are new since the prior study but overall age-indeterminate. MRI could further evaluate if of concern. There is metallic hardware noted in the right hip. There are diffuse degenerative changes of the visualized lumbar spine. There is bilateral neural foraminal stenosis at L4-5 and L5-S1. No suspicious lytic or blastic abnormality. SOFT TISSUES: Unremarkable. No discrete abdominal or pelvic wall hernia. Normal abdominal wall. VASCULATURE: There are calcifications of the abdominal aorta. This is consistent for atherosclerotic disease. There is no abdominal aortic aneurysm. LYMPH NODES: Unremarkable. No enlarged lymph nodes. CT/Abdomen/Pelvis without Cont IMPRESSION: 1. There are compression deformities of L1 and L2. These are new since the prior study but overall age-indeterminate. MRI could further evaluate if of concern. 2. Bilateral lower lobe pneumonia. 3. There is metallic hardware noted in the right hip. 4. There are multiple gallstones. 5. The urinary bladder is distended. This can suggest urinary retention. Electronically Signed: Cisco Carlisle MD at 18:22 EDT ,
--- NOTE | 2023-02-03 18:56 | VDLE_ITS ---
Reason For Study: Swelling RIGHT LEFT GSV is normal. GSV is normal. CFV is compressible, spontaneous, phasic, CFV is compressible, spontaneous, phasic, competent and demonstrates normal competent, and demonstrates normal augmentation. augmentation. FV is compressible, spontaneous, phasic, FV is compressible, spontaneous, phasic, competent and demonstrates normal competent and demonstrates normal augmentation. augmentation. POP V is compressible, spontaneous, phasic, POP V is compressible, spontaneous, phasic, competent and demonstrates normal competent and demonstrates normal augmentation. augmentation. T/P Trunk is compressible. T/P Trunk is compressible. PTV is compressible. PTV is compressible. RT PerV is compressible. LT PerV is compressible. Procedure This is a venous duplex using B-mode, color flow and spectral Doppler. Exam performed portable in patient room. A preliminary report was called and/or faxed to [facility]. VL/Venous Duplex US - Celestino Extrem Interpretation Summary Deep veins of the bilateral lower extremities are patent and compressible segme ntally. There is no evidence of bilateral lower extremity deep vein thrombosis. The bilateral great saphenous veins appear patent and compressible segmentally. Ordering Physician: Danisha Harvey Referring Physician: Inocente Nichols Performed By: Linda Cueto, BONI, RVT
--- NOTE | 2023-02-03 19:32 | PHA.PHARE_ITS ---
Consult Antibiotic Management Pharmacy has been consulted to manage selected antiobiotic: Vancomycin Type of Intervention Type of Consult: New start Suspected Infection Suspected Infection: Skin/Soft tissue Prior Doses of Antibiotics Prior Doses of Antibiotics Received/Current Regimen: Received 1500mg IV x1 in E.R. starting at 16:32 today Labs Labs: Sodium 113 mmol/L (136-145) L* 02/03/23 15:32 Potassium 3.9 mmol/L (3.5-5.1) 02/03/23 15:32 Chloride 71 mmol/L (98-107) L* 02/03/23 15:32 Carbon Dioxide 32.0 mmol/L (21.0-32.0) 02/03/23 15:32 Anion Gap 10 (5-15) 02/03/23 15:32 BUN 11 mg/dL (7-18) 02/03/23 15:32 Creatinine 0.75 mg/dL (0.70-1.30) 02/03/23 15:32 Est GFR (MDRD) Af Amer 131 mL/min (>60) 02/03/23 15:32 Est GFR (MDRD) Non-Af 108 mL/min (>60) 02/03/23 15:32 BUN/Creatinine Ratio 14.7 RATIO (10-20) 02/03/23 15:32 Glucose 102 mg/dL (74-106) 02/03/23 15:32 Dosing Weight Weight used for dosin.8 kg Estimated Creatinine Clearance Estimated Creatinine Clearance: >100ml/min Goal Trough Goal Trough: 10-15 mcg/mL Pharmacy Plan for Drug Dosing Pharmacy Plan for Drug Dosing: Starting 12 hours after the E.R. dose, continue with vanc 1750mg IV q12h per [facility] dosing protocol. Check a trough level before the 4th total dose. The patient's CrCl of >100ml/min was calculated using an adjusted body weight. Pharmacy Service will continue to monitor and adjust dosing as required. Follow-Up Labs Follow-Up Labs: Trough: Vancomycin Date/Time Labs Ordered Labs to be done on [date and time ordered]: 02/05/23 03:30
[2023-02-03 22:02] LABS: Probe Check PASS; Staph aureus DNA By PCR POSITIVE (Negative)
[2023-02-03 22:04] LABS: M R Staph aureus DNA By PCR POSITIVE (Negative)
[2023-02-03] MEDS: Finasteride 5 MG Tablet PO (22:18)
[2023-02-03] MEDS: OLANZapine 2.5 MG Tablet 5 MG PO (22:18)
[2023-02-03] MEDS: HYDROcodone Bitartrate/Apap 5/325 Tablet PO (22:18)
[2023-02-03] MEDS: Sodium Chloride 1 GM Tablet PO (22:19)
[2023-02-03] MEDS: Divalproex (ER) 500 MG Tablet PO (22:19)
[2023-02-03] MEDS: Tamsulosin HCl 0.4 MG Capsule 0.8 MG PO (22:20)
[2023-02-03] MEDS: guaiFENesin 10 ML UDC (200MG/10ML) 20 ML PO (22:20)
[2023-02-03] MEDS: OLANZapine 10 MG Tablet PO (22:20)
[2023-02-04] VITALS (8 sets, daily range): BP systolic 114–137; BP diastolic 39–47; PULSE 44–54; RESP 16–24; TEMP 36.1–37; O2SAT 92–96
[2023-02-04] MEDS: Budesonide Respules 0.5 MG/2 ML AMPUL.NEB. INHALATION ×2 (03:48→19:18)
[2023-02-04] MEDS: Albuterol 2.5 MG/3 ML VIAL.NEB. INHALATION ×2 (03:48→19:18)
--- NOTE | 2023-02-04 03:50 | CPS ---
Pt does not like to be sitting straight. Offered to pull up and he declined. Aerosol tx given via mask.
[2023-02-04 05:18] LABS: Absolute Lymphocyte Count 0.95 X10^3/uL (0.83-4.51); Absolute Neutrophil Count 8.9 X10^3/uL (2.0-7.7); Basophil# 0.04 X10^3/uL; Basophil% 0.4 % (0-1); Eosinophil# 0.08 X10^3/uL; Eosinophils% 0.7 % (0-5); Hematocrit 33.2 % (40-54); Hemoglobin 11.4 g/dL (13.0-16.5); Lymphocyte # 0.95 X10^3/ul (0.83-4.51); Lymphocyte % 8.4 % (19-41); Mean Corp Hgb Conc 34.3 g/dL (32-36); Mean Corpuscular Hgb 33.6 pg (27.0-32.0); Mean Corpuscular Volume 97.9 fL (80-94); Monocyte# 1.02 X10^3/uL; Monocyte% 9.1 % (0-10); NRBC Flagged by Analyzer 0 % (0-5); Neutrophil # 8.91 X10^3/uL (2.7-7.7); Neutrophil % 79.2 % (47-70); Platelet Count 349 K/mm3 (150-450); RBC Distribution Width CV 14.6 % (11.6-14.6); RBC Distribution Width SD 52.1 fl (35.1-43.9); Red Blood Count 3.39 M/mm3 (4.6-6.2); White Blood Count 11.3 K/mm3 (4.4-11.0)
[2023-02-04] MEDS: Sodium Chloride 1 GM Tablet PO ×3 (05:43→22:04)
[2023-02-04] MEDS: HYDROcodone Bitartrate/Apap 5/325 Tablet PO ×3 (05:43→22:04)
[2023-02-04] MEDS: guaiFENesin 10 ML UDC (200MG/10ML) 20 ML PO ×3 (05:43→22:04)
[2023-02-04 05:53] LABS: ALB/GLOB Ratio 0.7 RATIO (0.9-2.4); AST(SGOT) 23 U/L (15-37); Alanine Aminotransfer ALT/SGPT 20 U/L (16-61); Albumin, Serum 2.8 g/dL (3.2-5.0); Alkaline Phosphatase 156 U/L (45-117); Anion Gap 7 (5-15); BUN 10 mg/dL (7-18); BUN/Creat Ratio 14.1 RATIO (10-20); Calcium,Total 8.7 mg/dL (8.5-10.1); Chloride 81 mmol/L (98-107); Creatinine, Serum 0.71 mg/dL (0.70-1.30); EST Glomerular Filtration Rate 115 mL/min (>60); Est Glom Filt Rate - Afr Amer 139 mL/min (>60); Estimated Creatinine Clearance 71.13 ml/min; Globulin 3.9 g/dL (2.2-4.2); Glucose 105 mg/dL (74-106); Magnesium 1.7 mg/dL (1.6-2.6); Phosphorus 3.5 mg/dL (2.5-4.9); Potassium 3.5 mmol/L (3.5-5.1); Protein, Total 6.7 g/dL (6.4-8.2); Sodium Level 123 mmol/L (136-145)
--- NOTE | 2023-02-04 10:20 | CASEMGMT ---
TYE HUGO chart review: Patient was admitted 01/21-01/26/23 hyponatremia. See TYE HUGO assessment from 01/22/23. Patient was discharged with family and resumption of non skilled HHC. Patient has CM at [facility], [place]. TYE HUGO in to discuss care with patient. Patient states he followed up with Dr. Nichols last week. Patient has follow-up with Dr. Masterson on February 17. Patient states he was taking he meds as prescribed. Patient admits he was not following his fluid restrictions. Patient states he has been having increased weakness and inability to care for self and is requesting to go to [place] short term for therapy. TYE HUGO updated SW. CM will continue to follow this patient and plan for a safe discharge.
[2023-02-04] MEDS: Multivitamins,Therapeutic Tablet 1 TABLET PO (10:34)
[2023-02-04] MEDS: Thiamine Hydrochloride 100 MG Tablet PO (10:34)
[2023-02-04] MEDS: Losartan Potassium 50 MG Tablet PO (10:34)
[2023-02-04] MEDS: Folic Acid 1 MG Tablet PO (10:34)
--- NOTE | 2023-02-04 10:34 | PCM.PN.HOSP ---
Reason for Visit Reason for Visit: Lower extremity wound Subjective Subjective Patient states he is feeling better today. His leg is less swollen and less painful. He is agreeable to go for short-term [facility] facility stay to [place] if possible at discharge. Objective Data Objective Data Vital Signs: Vital Signs Temp Pulse Resp BP Pulse Ox O2 Del Method 97.4 F L 44 L 22 H 119/45 L 92 Room Air 02/04/23 03:28 02/04/23 03:49 02/04/23 03:49 02/04/23 03:28 02/04/23 03:28 02/04/23 03:28 Oxygen Delivery Method Room Air Weight: 117.8 kg Body Mass Index (BMI) 35.2 Intake & Output: Intake and Output for Last 24 Hours 02/02/23 02/03/23 02/04/23 23:59 23:59 23:59 Intake Total 1250 / 1250 585 / 585 Output Total 900 / 900 500 / 500 Balance 350 / 350 85 / 85 Lab / Micro Data 02/04/23 04:53 02/04/23 04:53 Labs: Laboratory Results - last 24 hr 02/03/23 15:32: WBC 19.1 H, RBC 3.51 L, Hgb 11.7 L, Hct 34.2 L, MCV 97.4 H, MCH 33.3 H, MCHC 34.2, RDW Std Deviation 51.5 H, RDW Coeff of Fredi 14.4, Plt Count 371, MPV 8.9, Immature Gran % (Auto) 1.800 H, Neut % (Auto) 84.6 H, Lymph % (Auto) 6.2 L, [place] % (Auto) 6.8, Eos % (Auto) 0.3, Baso % (Auto) 0.3, Absolute Neuts (auto) 16.2 H, Absolute Lymphs (auto) 1.19, Nucleated RBC % 0, Sodium 113 L*, Potassium 3.9, Chloride 71 L*, Carbon Dioxide 32.0, Anion Gap 10, BUN 11, Creatinine 0.75, Estim Creat Clear Calc 71.13, Est GFR (MDRD) Af Amer 131, Est GFR (MDRD) Non-Af 108, BUN/Creatinine Ratio 14.7, Glucose 102, Lactic Acid 1.7, Calcium 8.8 02/03/23 19:56: S.aureus Protein A PCR POSITIVE H, MRSA (PCR) POSITIVE H 02/04/23 04:53: WBC 11.3 H, RBC 3.39 L, Hgb 11.4 L, Hct 33.2 L, MCV 97.9 H, MCH 33.6 H, MCHC 34.3, RDW Std Deviation 52.1 H, RDW Coeff of Fredi 14.6, Plt Count 349, MPV 9.0, Immature Gran % (Auto) 2.200 H, Neut % (Auto) 79.2 H, Lymph % (Auto) 8.4 L, [place] % (Auto) 9.1, Eos % (Auto) 0.7, Baso % (Auto) 0.4, Absolute Neuts (auto) 8.9 H, Absolute Lymphs (auto) 0.95, Nucleated RBC % 0, Sodium 123 L, Potassium 3.5, Chloride 81 L, Carbon Dioxide 35.0 H, Anion Gap 7, BUN 10, Creatinine 0.71, Estim Creat Clear Calc 71.13, Est GFR (MDRD) Af Amer 139, Est GFR (MDRD) Non-Af 115, BUN/Creatinine Ratio 14.1, Glucose 105, Calcium 8.7, Phosphorus 3.5, Magnesium 1.7, Total Bilirubin 0.90, AST 23, ALT 20, Alkaline Phosphatase 156 H, Total Protein 6.7, Albumin 2.8 L, Globulin 3.9, Albumin/Globulin Ratio 0.7 L Micro: Microbiology 02/03/23 19:56 Wound - Leg, Left Wound Culture - Preliminary Gram negative dany Gram positive organism 02/03/23 17:03 Wound - Leg, Left Wound Culture - Preliminary Gram negative dany Staphylococcus species Radiography Diagnostic Testing: Radiology Impression Chest X-Ray 02/03/23 15:35 IMPRESSION: Pulmonary findings appear worse. Electronically Signed: Cisco Carlisle MD at 15:48 EDT , Tibia/Fibula X-Ray 02/03/23 16:00 IMPRESSION: Soft tissue swelling around the ankle. Electronically Signed: Cisco Carlisle MD at 16:22 EDT , Abdomen/Pelvis CT 02/03/23 17:16 IMPRESSION: 1. There are compression deformities of L1 and L2. These are new since the prior study but overall age-indeterminate. MRI could further evaluate if of concern. 2. Bilateral lower lobe pneumonia. 3. There is metallic hardware noted in the right hip. 4. There are multiple gallstones. 5. The urinary bladder is distended. This can suggest urinary retention. Electronically Signed: Cisco Carlisle MD at 18:22 EDT , Venous Doppler Study 02/03/23 18:56 Interpretation Summary Deep veins of the bilateral lower extremities are patent and compressible segmentally. There is no evidence of bilateral lower extremity deep vein thrombosis. The bilateral great saphenous veins appear patent and compressible segmentally. Ordering Physician: Danisha Harvey Referring Physician: Inocente Nichols Performed By: Linda Cueto, BONI, RVT Physical Exam Const alert, oriented x3, no apparent distress and well nourished; Negative for average body habitus or healthy appearing Constitutional Narrative: Obese, elderly, white male, sitting up in chair at the bedside, dozing off and watching television, appears much older than stated age, nontoxic, appears comfortable, appears chronically ill General Appearance: cooperative HEENT normocephalic, hearing grossly normal bilaterally and moist oral mucous membranes; Negative for head/scalp atraumatic HEENT Narrative: Mallampati is 3, edentulous, no thrush, abrasions on right frontal area of forehead from previous fall-these appear to be healing well Resp normal respiratory effort, no retractions, no use of accessory muscles and clear to auscultation bilaterally Resp Narrative: Diffusely diminished but clear Auscultation: Negative for rales, rhonchi or wheezes Cardio regular rate, S1 normal heart sound, S2 normal heart sound, no murmurs, no rub, no gallops and no clicks Cardio Narrative: Irregularly irregular rhythm GI normal to inspection, nondistended, normoactive bowel sounds, soft to palpation and non-tender Extremity Extremity Narrative: Left lower extremity edema seems to be improving with some wrinkling of the skin, erythema has improved some Skin No no rashes or lesions noted, No no wounds, no jaundice, no petechiae and no mottling Skin Narrative: Bilateral lower extremities with signs of chronic venous stasis however left lower extremity acutely red and swollen with multiple wounds with surrounding eschar- but improved, multiple ecchymosis bilateral upper extremities distally--> images from wound care reviewed today and leg seems to be slowly improving Neuro oriented x3 and moves all extremities Neuro Narrative: Severe generalized weakness Speech: speech normal Psych affect normal Psych Narrative: Eye contact is good, patient interacts appropriately Assessment & Plan Assessment/Plan (1) Leukocytosis: (2) Hyponatremia: (3) Cellulitis of left lower extremity: (4) Abdominal distention: (5) Compression fracture of L1 lumbar vertebra: (6) Compression fracture of L2: PLAN: Plan Left lower extremity cellulitis -Multiple wounds noted as nidus for infection -Continue vancomycin and Zosyn for now -MRSA PCR for wound and serum are positive -Wound cultures are currently showing gram negative dany and gram-positive organisms as well as a Staphylococcus species -Blood cultures obtained and remain pending -Wound care following -Lower extremity Dopplers are negative Abdominal distention -No fluid noted on CT of the abdomen -Must be his baseline Hyponatremia -Acute on chronic -Baseline appears to be between 120 and 125 -113 on admission and up to 123 today just with fluid restriction and continuing his home Lasix and sodium tablets -Highly suspect patient has not been compliant with his fluid restriction at home and that is the etiology of his drop in sodium since discharge -Continued to drink 2-4 beers daily -Fluid restrict to 1500 cc -Continue home Lasix -Continue home salt tablets -With improvement in sodium will discontinue nephrology consultation -Patient just had extensive work-up we will not pursue any further at this time as he did improve with previous treatment L1 and 2 compression fractures -Patient is not complaining of significant back pain -Likely related to his recent falls at home -No neurological deficits -Continue PT/OT -Check vitamin D level Leukocytosis -Suspect related to above infection -Trending down History of COPD -As needed aerosols -Continue home guaifenesin -Is not on oxygen at baseline -Continue Pulmicort -No signs of acute exacerbation at this time History of adenocarcinoma of the lung -Patient has had adenocarcinoma of bilateral lungs -Has had a previous recent favorable PET scan -Follows at the [facility] -Clinically stable PAF -Patient is in A-fib but rate controlled on presentation -No anticoagulation due to alcohol use and frequent falls CAD/HPL/HTN -Continue home atorvastatin next-continue home Lasix -Continue home losartan -FEN continue home potassium supplementation Pulmonary hypertension -Suspect secondary to lung disease with who group 3 -Continue home Lasix Acute on chronic debility -PT/OT consultation -Patient will likely require skilled placement at discharge and is willing to be placed short-term BPH -Continue Flomax GERD -Continue PPI Seasonal allergies -Continue home loratadine Chronic constipation -Continue home lactulose -Continue home Dulcolax Chronic alcohol use -Patient drinks approximately 2-4 beers daily -Extensive discussion with the patient with regards to his alcohol use and that he needs to markedly limit this at home with abstinence being the best. Patient has indicated previously and at this admission he has no intention on quitting drinking alcohol Tobacco abuse -Patient states he is smoking a lot -Nicotine patch -Recommend cessation Bipolar disorder -Stable -Continue home psychiatric medications DVT prophylaxis -Subcu Lovenox 40 mg daily CODE STATUS -Full code Charges/Coding Visit Charges Inpatient E&M: 86236 Subs Hosp L2
[2023-02-04] MEDS: Furosemide 40 MG Tablet PO ×2 (10:35→17:57)
[2023-02-04] MEDS: Fluticasone 0.05% 1 SPRAY NASAL.SRY 2 SPRAY NASAL (10:35)
[2023-02-04] MEDS: Cholecalciferol (VIT D3) 25 MCG TABLET (1,000 UNITS) 50 MCG PO (10:35)
[2023-02-04] MEDS: Aspirin E.C. 81 MG Tablet PO (10:35)
[2023-02-04] MEDS: Loratadine 10 MG Tablet PO (10:36)
[2023-02-04] MEDS: Potassium Chloride Oral Tablet 20 MEQ PO ×2 (10:36→17:57)
[2023-02-04] MEDS: Enoxaparin 40 MG/0.4 ML Syringe SC (10:36)
--- NOTE | 2023-02-04 10:36 | WOUNDNOTE ---
wound photo: right lower leg
[2023-02-04] MEDS: Pantoprazole Sodium 20 MG Tablet PO (10:37)
--- NOTE | 2023-02-04 10:37 | WOUNDNOTE ---
wound photo: left lower leg
--- NOTE | 2023-02-04 10:37 | WOUNDNOTE ---
wound photo: left lateral lower leg
--- NOTE | 2023-02-04 11:00 | CASEMGMT ---
AMY was informed by physician and RN CM that patient is agreeable to go to [facility]. AMY asked Radha d/c planning rn to please send a referral to [facility]. Comfort PARNELL
--- NOTE | 2023-02-04 11:18 | CASEMGMT ---
Discharge Planning Referral sent to [facility] via [facility]. Radha Means, Discharge Planning Asst.
--- NOTE | 2023-02-04 13:45 | NURSING ---
This RN took over pt at this time.
--- NOTE | 2023-02-04 15:59 | CASEMGMT ---
Discharge Planning Patient has been accepted by [facility]. Asked that pre-cert be started. Patient notified of acceptance. Radha Means, Discharge Planning Asst.
--- NOTE | 2023-02-04 16:10 | CHAPLAIN ---
Type of Pastoral Visit _x__ Initial Visit ___ Follow-up Visit ___ On-call Visit ___ General Patient Visit ___ Spiritual Assessment ___ Family Conference ___ Bereavement ___ Rapid Response ___ Code Blue ___ Other (describe below) Pastoral Care Referral From _x__ Patient ___ Family ___ Nurse ___ Physician ___ Health Promotion Educator ___ Welfare Manager ___ Other (describe below) Sacrament/Intervention _x__ Active listening ___ Anointing ___ Faith ___ Bereavement ___ Communion _x__ Ruth exploration ___ _x__ Life review _x__ Prayer ___ Reconciliation ___ Sacrament of Sick _x__ Supportive presence ___ Wedding ___ Other (describe below) Pastoral Comments patient is welcoming and remembers this meteorologist in charge from previous visits; pt admits that he needed assistance with basic living at this point; pt admits that this is a depressing situation; pt has limited family for support; pt has a caodaism family but has been unable to attend services due to health; pt welcomes presence and prayer
[2023-02-04 17:50] LABS: Vitamin D,25 Hydroxy 74.3 ng/mL
[2023-02-04] MEDS: Atorvastatin Calcium 80 MG Tablet PO (22:04)
[2023-02-04] MEDS: OLANZapine 10 MG Tablet PO (22:05)
[2023-02-04] MEDS: OLANZapine 2.5 MG Tablet 5 MG PO (22:05)
[2023-02-04] MEDS: Divalproex (ER) 500 MG Tablet PO (22:06)
[2023-02-04] MEDS: Finasteride 5 MG Tablet PO (22:06)
[2023-02-04] MEDS: Tamsulosin HCl 0.4 MG Capsule 0.8 MG PO (22:09)
[2023-02-05 02:36] LABS: Absolute Lymphocyte Count 1.06 X10^3/uL (0.83-4.51); Absolute Neutrophil Count 9.7 X10^3/uL (2.0-7.7); Basophil# 0.04 X10^3/uL; Basophil% 0.3 % (0-1); Eosinophil# 0.06 X10^3/uL; Eosinophils% 0.5 % (0-5); Hematocrit 28.2 % (40-54); Hemoglobin 9.6 g/dL (13.0-16.5); Lymphocyte # 1.06 X10^3/ul (0.83-4.51); Lymphocyte % 8.8 % (19-41); Mean Corpuscular Hgb 33.6 pg (27.0-32.0); Mean Corpuscular Volume 98.6 fL (80-94); Mean Platelet Vol. 8.6 fl (6.2-12.0); Monocyte# 1.06 X10^3/uL; Monocyte% 8.8 % (0-10); NRBC Flagged by Analyzer 0 % (0-5); Neutrophil # 9.66 X10^3/uL (2.7-7.7); Neutrophil % 80.4 % (47-70); Platelet Count 304 K/mm3 (150-450); RBC Distribution Width CV 14.7 % (11.6-14.6); RBC Distribution Width SD 53.7 fl (35.1-43.9); Red Blood Count 2.86 M/mm3 (4.6-6.2)
[2023-02-05 02:49] LABS: Anion Gap 8 (5-15); BUN 14 mg/dL (7-18); BUN/Creat Ratio 19.8 RATIO (10-20); Calcium,Total 8.2 mg/dL (8.5-10.1); Chloride 87 mmol/L (98-107); Creatinine, Serum 0.71 mg/dL (0.70-1.30); EST Glomerular Filtration Rate 116 mL/min (>60); Est Glom Filt Rate - Afr Amer 140 mL/min (>60); Estimated Creatinine Clearance 71.13 ml/min; Glucose 106 mg/dL (74-106); Potassium 3.7 mmol/L (3.5-5.1); Sodium Level 127 mmol/L (136-145)
[2023-02-05 03:42] LABS: Vancomycin, Trough Level 24.5 ug/mL (5.0-15.0)
[2023-02-05 04:31] VITALS: BP 114/47; PULSE 50; RESP 18; TEMP 37.2; O2SAT 93
[2023-02-05] MEDS: HYDROcodone Bitartrate/Apap 5/325 Tablet PO ×2 (05:18→13:16)
[2023-02-05] MEDS: guaiFENesin 10 ML UDC (200MG/10ML) 20 ML PO ×2 (05:19→13:15)
[2023-02-05] MEDS: Sodium Chloride 1 GM Tablet PO ×2 (05:19→08:48)
[2023-02-05] MEDS: Budesonide Respules 0.5 MG/2 ML AMPUL.NEB. INHALATION (07:19)
[2023-02-05] MEDS: Albuterol 2.5 MG/3 ML VIAL.NEB. INHALATION (07:19)
[2023-02-05 07:21] VITALS: PULSE 47; RESP 20; O2SAT 92
[2023-02-05] MEDS: Enoxaparin 40 MG/0.4 ML Syringe SC (08:48)
[2023-02-05] MEDS: Losartan Potassium 50 MG Tablet PO (08:49)
[2023-02-05] MEDS: Aspirin E.C. 81 MG Tablet PO (08:49)
[2023-02-05] MEDS: Furosemide 40 MG Tablet PO (08:49)
[2023-02-05] MEDS: Multivitamins,Therapeutic Tablet 1 TABLET PO (08:49)
[2023-02-05] MEDS: Potassium Chloride Oral Tablet 20 MEQ PO (08:49)
[2023-02-05] MEDS: Thiamine Hydrochloride 100 MG Tablet PO (08:49)
[2023-02-05] MEDS: Folic Acid 1 MG Tablet PO (08:49)
[2023-02-05] MEDS: Pantoprazole Sodium 20 MG Tablet PO (08:49)
[2023-02-05] MEDS: Cholecalciferol (VIT D3) 25 MCG TABLET (1,000 UNITS) 50 MCG PO (08:50)
[2023-02-05] MEDS: Loratadine 10 MG Tablet PO (08:50)
[2023-02-05] MEDS: Fluticasone 0.05% 1 SPRAY NASAL.SRY 2 SPRAY NASAL (08:54)
[2023-02-05 09:07] VITALS: BP 144/38; PULSE 57; RESP 20; TEMP 37.2; O2SAT 94
--- NOTE | 2023-02-05 12:48 | PCM.TXEXTCAR ---
Diet Diet Order/Speech Therapy: 02/03/23 18:57 Diet: Cardiac - Heart Healthy Food consistency:: Regular Liquid Consistency:: Regular/Thin Type of Dietary Supplement:: Leland BID orange flavor Fluid restriction:: 1500 mL Routine Orders/Code Status O2 Liters per Minute: 2 O2 Frequency: PRN Keep PO Greater than or Equal to (%): 90 Routine Lab Work: CBC (1 week) and BMP (1 week) Code Status: Full Code Wound(s) LEFT LOWER LEG: Wound Type: Stasis Ulcer RLE: Wound Type: scabbed over abrasion Dressing Change: dry dressing forehead: Wound Type: Abrasion left poe: Wound Type: Abrasion Dressing Change: Adaptic left lateral lower leg: Wound Type: Abrasion Dressing Change: Adaptic anne marie. buttocks: Wound Type: Pressure Injury Therapies Weight Bearing: Full weight bearing Physical Therapy: Eval and Treat Occupational Therapy: Eval and Treat Problem/Diagnosis (1) Leukocytosis: Status: Acute Code(s): D72.829 - Elevated white blood cell count, unspecified (2) Hyponatremia: Status: Acute Code(s): E87.1 - Hypo-osmolality and hyponatremia (3) Cellulitis of left lower extremity: Status: Acute Code(s): L03.116 - Cellulitis of left lower limb (4) Abdominal distention: Status: Acute Code(s): R14.0 - Abdominal distension (gaseous) (5) Compression fracture of L1 lumbar vertebra: Status: Acute Code(s): S32.010A - Wedge compression fracture of first lumbar vertebra, initial encounter for closed fracture (6) Compression fracture of L2: Status: Acute Code(s): S32.020A - Wedge compression fracture of second lumbar vertebra, initial encounter for closed fracture Allergies/Procedures Done in Hospital Allergies venom-honey bee [bee venom (honey bee)] Allergy (Severe, Verified 02/03/23 18:12) Anaphylaxis Type of Care/Length of Stay Estimated LOS: Convalescent Care Less Than 30 days Type of Care Needed: Skilled Rehab Potential: Fair Prognosis: Fair Additional Orders/Day of Discharge Additional Orders: It is imperative that the patient follow strict adherence to fluid restriction. If not he will become severely hyponatremic. Day of Discharge: 02/05/23 Dietary and Speech Recommendations Dietitian Recommendations/Changes: Continue Cardiac diet to manage medical conditions. RD will order orange Leland BID to promote wound healing. Continue fluid restriction per MD. Follow Up Care Please follow up with your Primary Care Physician in: 1-2 weeks after d/c from SNF Discharge Plan Admission Admit Date/Time: 02/03/23 16:52 Attending Provider: Danisha Harvey Primary Care Provider: Inocente Nichols Discharge Orders/Prescriptions Prescriptions: No Action hydrocodone-acetaminophen 5-325 mg tablet 1 tab PO Q8H atorvastatin 80 mg tablet 80 mg PO DAILY Qty: 30 5RF lactulose 10 gram/15 mL solution 30 g PO BID PRN (Reason: constipation) olanzapine [Zyprexa] 15 mg tablet 15 mg PO QHS guaifenesin 400 mg tablet 400 mg PO TID fluticasone propionate 50 mcg/actuation spray,suspension 2 spray intranasal DAILY Rx Instructions: administer into each nostril loratadine 10 mg tablet 10 mg PO DAILY cholecalciferol (vitamin D3) 1,000 UNIT tablet 2,000 unit PO DAILY melatonin 3 MG tablet 3 mg PO QHS PRN (Reason: SLEEP ) tamsulosin 0.4 MG capsule 0.8 mg PO QHS Rx Instructions: 2 -0.4mg caps finasteride 5 MG tablet 5 mg PO QHS omeprazole 20 MG capsule 20 mg PO DAILY mineral oil Enema 133 ml [place] DAILY PRN (Reason: Constipation) Pulmicort Flexhaler 180 mcg/actuation Aerosol Powdr Breath Activated 2 inh INHALATION BID folic acid 1 MG tablet 1 mg PO DAILY multivitamin Tablet 1 tab PO DAILY losartan 50 mg tablet 50 mg PO DAILY bisacodyl 10 mg Suppository 10 mg [place] DAILY PRN (Reason: Constipation) thiamine HCl (vitamin B1) 100 MG tablet 100 mg PO DAILYCM divalproex [Depakote ER] 250 mg tablet extended release 24 hr 500 mg PO QHS furosemide 40 mg tablet 40 mg PO BID aspirin [Adult Low Dose Aspirin] 81 mg tablet,delayed release (DR/EC) 81 mg PO DAILY potassium chloride 20 mEq tablet extended release 20 meq PO BID Qty: 60 0RF sodium chloride 1,000 mg tablet,soluble 1,000 mg PO TID albuterol sulfate 90 mcg/actuation HFA aerosol inhaler 1 - 2 puff inhalation 4X/DAY PRN (Reason: Sob &/Or Wheezing) Referrals / Follow Up: Inocente Nichols MD [Primary Care Provider] -
--- NOTE | 2023-02-05 12:50 | DS.PCM_ITS ---
Providers Date of Admission: 02/03/23 Primary Care Physician: Dr. Inocente Nichols MD Consultations 02/03/23 18:56 Consult: Onc/Wound/sales operations lead Routine Comment: Reason For Visit: HYPONATREMIA, LEFT LOWER LEG CELLULITIS Diagnosis Discharge Diagnosis (1) Leukocytosis: Status: Acute Code(s): D72.829 - Elevated white blood cell count, unspecified (2) Hyponatremia: Status: Acute Code(s): E87.1 - Hypo-osmolality and hyponatremia (3) Cellulitis of left lower extremity: Status: Acute Code(s): L03.116 - Cellulitis of left lower limb (4) Abdominal distention: Status: Acute Code(s): R14.0 - Abdominal distension (gaseous) (5) Compression fracture of L1 lumbar vertebra: Status: Acute Code(s): S32.010A - Wedge compression fracture of first lumbar vertebra, initial encounter for closed fracture (6) Compression fracture of L2: Status: Acute Code(s): S32.020A - Wedge compression fracture of second lumbar vertebra, initial encounter for closed fracture Plan Left lower extremity cellulitis -Multiple wounds noted as nidus for infection -Continue vancomycin and Zosyn for now -MRSA PCR for wound and serum are positive -Wound cultures are currently showing gram negative dany and gram-positive organisms as well as a Staphylococcus species -Blood cultures obtained and remain pending -Wound care following -Lower extremity Dopplers are negative Abdominal distention -No fluid noted on CT of the abdomen -Must be his baseline Hyponatremia -Acute on chronic -Baseline appears to be between 120 and 125 -113 on admission and up to 123 today just with fluid restriction and continuing his home Lasix and sodium tablets -Highly suspect patient has not been compliant with his fluid restriction at formerly [facility] and that is the etiology of his drop in sodium since discharge -Continued to drink 2-4 beers daily -Fluid restrict to 1500 cc -Continue home Lasix -Continue home salt tablets -With improvement in sodium will discontinue nephrology consultation -Patient just had extensive work-up we will not pursue any further at this time as he did improve with previous treatment L1 and 2 compression fractures -Patient is not complaining of significant back pain -Likely related to his recent falls at home -No neurological deficits -Continue PT/OT -Check vitamin D level Leukocytosis -Suspect related to above infection -Trending down History of COPD -As needed aerosols -Continue home guaifenesin -Is not on oxygen at baseline -Continue Pulmicort -No signs of acute exacerbation at this time History of adenocarcinoma of the lung -Patient has had adenocarcinoma of bilateral lungs -Has had a previous recent favorable PET scan -Follows at the [facility] -Clinically stable PAF -Patient is in A-fib but rate controlled on presentation -No anticoagulation due to alcohol use and frequent falls CAD/HPL/HTN -Continue home atorvastatin next-continue home Lasix -Continue home losartan -FEN continue home potassium supplementation Pulmonary hypertension -Suspect secondary to lung disease with who group 3 -Continue home Lasix Acute on chronic debility -PT/OT consultation -Patient will likely require skilled placement at discharge and is willing to be placed short-term BPH -Continue Flomax GERD -Continue PPI Seasonal allergies -Continue home loratadine Chronic constipation -Continue home lactulose -Continue home Dulcolax Chronic alcohol use -Patient drinks approximately 2-4 beers daily -Extensive discussion with the patient with regards to his alcohol use and that he needs to markedly limit this at home with abstinence being the best. Patient has indicated previously and at this admission he has no intention on quitting drinking alcohol Tobacco abuse -Patient states he is smoking a lot -Nicotine patch -Recommend cessation Bipolar disorder -Stable -Continue home psychiatric medications DVT prophylaxis -Subcu Lovenox 40 mg daily CODE STATUS -Full code Medications at Discharge Home Medications cholecalciferol (vitamin D3) 25 mcg (1,000 unit) tablet 2,000 unit PO DAILY supplement 02/22/19 finasteride 5 mg tablet 5 mg PO QHS prostate 02/22/19 melatonin 3 mg tablet 3 mg PO QHS PRN SLEEP 02/22/19 tamsulosin 0.4 mg capsule 0.8 mg PO QHS urinary issues 02/22/19 omeprazole 20 mg capsule,delayed release 20 mg PO DAILY ACID REFLUX 01/09/20 budesonide 180 mcg/actuation breath activated powder inhaler (Pulmicort Flexhaler) 2 inh inhalation BID WHEEZING/SHORTNESS OF BREATH 12/19/21 mineral oil 133 ml ME DAILY PRN Constipation 12/19/21 bisacodyl 10 mg rectal suppository 10 mg ME DAILY PRN Constipation 03/07/22 folic acid 1 mg tablet 1 mg PO DAILY SUPPLEMENT 03/07/22 losartan 50 mg tablet 50 mg PO DAILY BLOOD PRESSURE 03/07/22 multivitamin 1 tab PO DAILY supplement 03/07/22 thiamine HCl (vitamin B1) 100 mg tablet 100 mg PO DAILYCM supplement 03/07/22 furosemide 40 mg tablet 40 mg PO BID FLUID 08/11/22 hydrocodone-acetaminophen 5-325mg 5mg-325mg 1 tab PO Q8H PAIN 09/24/22 atorvastatin 80 mg tablet 80 mg PO DAILY CHOLESTEROL #30 tabs 10/14/22 aspirin 81 mg tablet,delayed release (Adult Low Dose Aspirin) 81 mg PO DAILY HEALTH MAINTENANCE 01/21/23 divalproex 250 mg tablet,extended release 24 hr (Depakote ER) 500 mg PO QHS mental health 01/21/23 fluticasone propionate 50 mcg/actuation nasal spray,suspension 2 spray intranasal DAILY SINUS 01/21/23 guaifenesin 400 mg tablet 400 mg PO TID COUGH 01/21/23 lactulose 10 gram/15 mL oral solution 30 g PO BID PRN constipation 01/21/23 loratadine 10 mg tablet 10 mg PO DAILY ALLERGIES 01/21/23 olanzapine 15 mg tablet (Zyprexa) 15 mg PO QHS Mental disorder 01/21/23 potassium chloride 20 mEq tablet,extended release 20 meq PO BID SUPPLEMENT #60 tabs 01/26/23 albuterol sulfate 90 mcg/actuation aerosol inhaler 1 - 2 puff inhalation 4X/DAY PRN Sob &/Or Wheezing 02/03/23 sodium chloride 1,000 mg soluble tablet 1,000 mg PO TID SUPPLEMENT 02/03/23 cefdinir 300 mg capsule 300 mg PO BID #28 caps 02/05/23 linezolid 600 mg tablet (Zyvox) 600 mg PO Q12H 14 days #28 tabs 02/05/23 Weight / BMI Weight Weight: 117.8 kg Body Mass Index (BMI) 35.2 ABG / Lab / Microbiology Data 02/05/23 02:25 02/05/23 02:25 Laboratory: Laboratory Results - last 24 hr 02/04/23 04:53: Vitamin D 25-Hydroxy 74.3 02/05/23 02:25: WBC 12.0 H, RBC 2.86 L, Hgb 9.6 L, Hct 28.2 L, MCV 98.6 H, MCH 33.6 H, MCHC 34.0, RDW Std Deviation 53.7 H, RDW Coeff of Fredi 14.7 H, Plt Count 304, MPV 8.6, Immature Gran % (Auto) 1.200 H, Neut % (Auto) 80.4 H, Lymph % (Auto) 8.8 L, [place] % (Auto) 8.8, Eos % (Auto) 0.5, Baso % (Auto) 0.3, Absolute Neuts (auto) 9.7 H, Absolute Lymphs (auto) 1.06, Nucleated RBC % 0, Sodium 127 L , Potassium 3.7, Chloride 87 L, Carbon Dioxide 32.0, Anion Gap 8, BUN 14, Creatinine 0.71, Estim Creat Clear Calc 71.13, Est GFR (MDRD) Af Amer 140, Est GFR (MDRD) Non-Af 116, BUN/Creatinine Ratio 19.8, Glucose 106, Calcium 8.2 L, Vancomycin Trough 24.5 H Microbiology: Microbiology 02/03/23 19:56 Wound - Leg, Left Gram Stain - Final 02/03/23 19:56 Wound - Leg, Left Wound Culture - Preliminary Staphylococcus aureus Gram negative dany 02/03/23 17:03 Wound - Leg, Left Gram Stain - Final 02/03/23 17:03 Wound - Leg, Left Wound Culture - Preliminary Proteus mirabilis Staphylococcus aureus Discharge Plan Admission Admit Date/Time: 02/03/23 16:52 Primary Reason for Your Visit: LLE wounds/Falls Attending Provider: Danisha Harvey Primary Care Provider: Inocente Nichols Discharge Orders/Prescriptions Prescriptions: New cefdinir 300 mg capsule 300 mg PO BID Qty: 28 0RF linezolid [Zyvox] 600 mg tablet 600 mg PO Q12H 14 Days Qty: 28 0RF Continued hydrocodone-acetaminophen 5-325 mg tablet 1 tab PO Q8H atorvastatin 80 mg tablet 80 mg PO DAILY Qty: 30 5RF lactulose 10 gram/15 mL solution 30 g PO BID PRN (Reason: constipation) olanzapine [Zyprexa] 15 mg tablet 15 mg PO QHS guaifenesin 400 mg tablet 400 mg PO TID fluticasone propionate 50 mcg/actuation spray,suspension 2 spray intranasal DAILY Rx Instructions: administer into each nostril loratadine 10 mg tablet 10 mg PO DAILY cholecalciferol (vitamin D3) 1,000 UNIT tablet 2,000 unit PO DAILY melatonin 3 MG tablet 3 mg PO QHS PRN (Reason: SLEEP ) tamsulosin 0.4 MG capsule 0.8 mg PO QHS Rx Instructions: 2 -0.4mg caps finasteride 5 MG tablet 5 mg PO QHS omeprazole 20 MG capsule 20 mg PO DAILY mineral oil Enema 133 ml ME DAILY PRN (Reason: Constipation) Pulmicort Flexhaler 180 mcg/actuation Aerosol Powdr Breath Activated 2 inh INHALATION BID folic acid 1 MG tablet 1 mg PO DAILY multivitamin Tablet 1 tab PO DAILY losartan 50 mg tablet 50 mg PO DAILY bisacodyl 10 mg Suppository 10 mg ME DAILY PRN (Reason: Constipation) thiamine HCl (vitamin B1) 100 MG tablet 100 mg PO DAILYCM divalproex [Depakote ER] 250 mg tablet extended release 24 hr 500 mg PO QHS furosemide 40 mg tablet 40 mg PO BID aspirin [Adult Low Dose Aspirin] 81 mg tablet,delayed release (DR/EC) 81 mg PO DAILY potassium chloride 20 mEq tablet extended release 20 meq PO BID Qty: 60 0RF sodium chloride 1,000 mg tablet,soluble 1,000 mg PO TID albuterol sulfate 90 mcg/actuation HFA aerosol inhaler 1 - 2 puff inhalation 4X/DAY PRN (Reason: Sob &/Or Wheezing) Referrals / Follow Up: Inocente Nichols MD [Primary Care Provider] - Within 2 Weeks (Follow-up within 2 weeks after discharge from skilled facility) Sandeep Nava MD [Med Staff - Consulting] - See Referral Note (As pr eviously scheduled from last hospitalization) Disposition Disposition (needs filled in before D/C Order can be placed): [facility]
--- NOTE | 2023-02-05 12:50 | PCM.DC.SUM ---
Providers Date of Admission: 02/03/23 Date of Discharge: 02/05/23 Primary Care Physician: Dr. Inocente Nichols MD Consultations 02/03/23 18:56 Consult: Onc/Wound/media production manager Routine Comment: Reason For Visit: HYPONATREMIA, LEFT LOWER LEG CELLULITIS Diagnosis Discharge Diagnosis (1) Leukocytosis: Status: Acute Code(s): D72.829 - Elevated white blood cell count, unspecified (2) Hyponatremia: Status: Acute Code(s): E87.1 - Hypo-osmolality and hyponatremia (3) Cellulitis of left lower extremity: Status: Acute Code(s): L03.116 - Cellulitis of left lower limb (4) Abdominal distention: Status: Acute Code(s): R14.0 - Abdominal distension (gaseous) (5) Compression fracture of L1 lumbar vertebra: Status: Acute Code(s): S32.010A - Wedge compression fracture of first lumbar vertebra, initial encounter for closed fracture (6) Compression fracture of L2: Status: Acute Code(s): S32.020A - Wedge compression fracture of second lumbar vertebra, initial encounter for closed fracture Medications at Discharge Home Medications cholecalciferol (vitamin D3) 25 mcg (1,000 unit) tablet 2,000 unit PO DAILY supplement 02/22/19 finasteride 5 mg tablet 5 mg PO QHS prostate 02/22/19 melatonin 3 mg tablet 3 mg PO QHS PRN SLEEP 02/22/19 tamsulosin 0.4 mg capsule 0.8 mg PO QHS urinary issues 02/22/19 omeprazole 20 mg capsule,delayed release 20 mg PO DAILY ACID REFLUX 01/09/20 budesonide 180 mcg/actuation breath activated powder inhaler (Pulmicort Flexhaler) 2 inh inhalation BID WHEEZING/SHORTNESS OF BREATH 12/19/21 mineral oil 133 ml CA DAILY PRN Constipation 12/19/21 bisacodyl 10 mg rectal suppository 10 mg CA DAILY PRN Constipation 03/07/22 folic acid 1 mg tablet 1 mg PO DAILY SUPPLEMENT 03/07/22 losartan 50 mg tablet 50 mg PO DAILY BLOOD PRESSURE 03/07/22 multivitamin 1 tab PO DAILY supplement 03/07/22 thiamine HCl (vitamin B1) 100 mg tablet 100 mg PO DAILYCM supplement 03/07/22 furosemide 40 mg tablet 40 mg PO BID FLUID 08/11/22 hydrocodone-acetaminophen 5-325mg 5mg-325mg 1 tab PO Q8H PAIN 09/24/22 atorvastatin 80 mg tablet 80 mg PO DAILY CHOLESTEROL #30 tabs 10/14/22 aspirin 81 mg tablet,delayed release (Adult Low Dose Aspirin) 81 mg PO DAILY HEALTH MAINTENANCE 01/21/23 divalproex 250 mg tablet,extended release 24 hr (Depakote ER) 500 mg PO QHS mental health 01/21/23 fluticasone propionate 50 mcg/actuation nasal spray,suspension 2 spray intranasal DAILY SINUS 01/21/23 guaifenesin 400 mg tablet 400 mg PO TID COUGH 01/21/23 lactulose 10 gram/15 mL oral solution 30 g PO BID PRN constipation 01/21/23 loratadine 10 mg tablet 10 mg PO DAILY ALLERGIES 01/21/23 olanzapine 15 mg tablet (Zyprexa) 15 mg PO QHS Mental disorder 01/21/23 potassium chloride 20 mEq tablet,extended release 20 meq PO BID SUPPLEMENT #60 tabs 01/26/23 albuterol sulfate 90 mcg/actuation aerosol inhaler 1 - 2 puff inhalation 4X/DAY PRN Sob &/Or Wheezing 02/03/23 sodium chloride 1,000 mg soluble tablet 1,000 mg PO TID SUPPLEMENT 02/03/23 cefdinir 300 mg capsule 300 mg PO BID #28 caps 02/05/23 linezolid 600 mg tablet (Zyvox) 600 mg PO Q12H 14 days #28 tabs 02/05/23 Hospital Course Operations None Procedures - (Chest x-ray/left lower extremity tibia/fibula films/CT abdomen pelvis/venous duplex bilateral lower extremity) Summary of Care Provided Minutes Spent on Discharge: 39 Hospital Course: Mr. Damian is a 72-year-old white male who presented to the emergency department at [facility] on 02/03/2023 for left lower extremity wound. He was being visited by visiting nurses and was sent to the emergency department because his left lower extremity was more swollen and got noticeably more red over the last 2 to 3 days prior to presentation. They were also concerned that he was not really able to care for himself and his sister was not able to help as thoroughly as he felt she would be able to after his last discharge. They indicated when he ambulates at home he can only walk about 2-3 steps. He was recently admitted to the hospital from 01/21/2023 through 01/26/2023 at which time it was recommended he go to a nursing facility however he deferred and wanted to go home. The patient is overall extremely poor informant and denied any other issues on admission. Vital signs on presentation demonstrated a temperature of 97.8, blood pressure 134/78, heart rate 66, respiratory rate 14 oxygen saturations are 96% on room air. CBC shows a leukocytosis with a white count of 19.1 and a left shift showing an 84.6% neutrophilia. He is a mild chronic stable anemia with hemoglobin of 11.7. Platelet count is normal. His chemistry panel is unremarkable other than a sodium of 113 and a chloride of 71. Lactic acid was 1.7. Chest x-ray reviewed by me and appears stable when compared to previous chest x-ray from 01/21/2023. Left lower extremity tibia and fibula x-rays show soft tissue swelling but no other significant abnormalities. EKG shows A-fib with rate control and no acute ST-T wave changes concerning for ischemia. He was admitted to the medical floor and his fluid restriction, salt tablets, and Lasix were reinitiated and he was placed on broad-spectrum antibiotics with vancomycin and Zosyn. Cultures of his leg were obtained prior to admission. His sodium corrected easily with the above regimen. He stated he was compliant with his home medications so I therefore suspect that he was not following fluid restriction at home. Sodium at discharge had improved to 127 which is his baseline and he is not consuming too much oral fluids. Cultures of his leg wounds showed Staph aureus and Proteus. Clinically his leg was improving slowly with treatment and he was followed by wound care during his hospital course. His MRSA PCR was positive and the Proteus was pansensitive so therefore we will send him out of the hospital on Omnicef 300 mg twice daily for another 14 days and linezolid 600 mg twice daily for another 14 days to complete treatment for his left lower extremity cellulitis. Recommendations for wound care have been made and reflected in transitional documentation. His abdomen was felt to be possibly distended and CT his abdomen was performed to rule out ascites. No ascites was found however he was found to have an L1 and L2 compression fracture that were new compared to his previous imaging. It is likely that these were related to his frequent falls which were ongoing at home since discharge. He was fairly asymptomatic with regards to this during his hospitalization. He was seen by physical and Occupational Therapy during his hospital course and it was recommended he be admitted for further rehab. Patient was accepting of this and was excepted at [facility] which was his first option for skilled facility at discharge. Obtained precertification for discharge on 02/05/2023. The patient was able to be discharged in stable condition to [facility] for ongoing medical care and therapy. I recommended that he have follow-up lab in the next 5 to 7 days. He will need to follow-up with his outpatient primary care physician within 1 to 2 weeks after discharge from the skilled facility and he was to have a follow-up with nephrology as an outpatient after his last hospital admit and I recommend he keep this appointment. Discharge diagnoses: Left lower extremity MRSA/Proteus cellulitis Left lower extremity wounds L1 and L2 compression fractures Acute on chronic hyponatremia Leukocytosis-improving History of COPD History of adenocarcinoma of the lung PAF CAD Hyperlipidemia Hypertension Pulmonary hypertension Acute on chronic debility BPH GERD Seasonal allergies Chronic constipation Chronic alcohol use Tobacco abuse Bipolar disorder Physical Exam Const alert, oriented x3, no apparent distress and well nourished; Negative for average body habitus or healthy appearing Constitutional Narrative: Obese, elderly, white male, sitting up in chair at the bedside, watching television, appears much older than stated age, nontoxic, appears comfortable, appears chronically ill General Appearance: cooperative, comfortable and well developed Orientation / Consciousness: awake, oriented to person, oriented to place and oriented to time Exam Limitations: no limitations Nutritional Appearance: obese HEENT normocephalic, hearing grossly normal bilaterally and moist oral mucous membranes; Negative for head/scalp atraumatic HEENT Narrative: Abrasion on forehead right side-healing well, mild hearing loss, dentition is poor, Mallampati is 3, no thrush Eyes PERRL, EOMs intact bilaterally and conjunctivae normal Eyes Narrative: No scleral icterus Neck no lymphadenopathy and supple Neck Narrative: Neck is short and thick, trachea is midline Resp normal respiratory effort, no retractions, no use of accessory muscles and clear to auscultation bilaterally Resp Narrative: Diffusely diminished but clear Auscultation: Negative for rales, rhonchi or wheezes Cardio regular rate, S1 normal heart sound, S2 normal heart sound, no murmurs, no rub, no gallops and no clicks Cardio Narrative: Irregularly irregular rhythm GI normal to inspection, nondistended, normoactive bowel sounds, soft to palpation and non-tender Extremity Extremity Narrative: Left lower extremity edema seems to be improving with some wrinkling of the skin, erythema has improved some Skin No no rashes or lesions noted, No no wounds, no jaundice, no petechiae and no mottling Skin Narrative: Bilateral lower extremities with signs of chronic venous stasis however left lower extremity acutely red and swollen with multiple wounds with surrounding eschar- but improved, multiple ecchymosis bilateral upper extremities distally--> slowly improving Neuro oriented x3, CN's II-XII intact bilaterally, moves all extremities and no focal motor deficits Neuro Narrative: Severe generalized weakness Speech: speech normal Motor Exam: Negative for strength 5/5 throughout Psych affect normal Psych Narrative: Eye contact is good, patient interacts appropriately Weight / BMI Weight Weight: 117.8 kg Body Mass Index (BMI) 35.2 ABG / Lab / Microbiology Data 02/05/23 02:25 02/05/23 02:25 Laboratory: Laboratory Results - last 24 hr 02/04/23 04:53: Vitamin D 25-Hydroxy 74.3 02/05/23 02:25: WBC 12.0 H, RBC 2.86 L, Hgb 9.6 L, Hct 28.2 L, MCV 98.6 H, MCH 33.6 H, MCHC 34.0, RDW Std Deviation 53.7 H, RDW Coeff of Fredi 14.7 H, Plt Count 304, MPV 8.6, Immature Gran % (Auto) 1.200 H, Neut % (Auto) 80.4 H, Lymph % (Auto) 8.8 L, [place] % (Auto) 8.8, Eos % (Auto) 0.5, Baso % (Auto) 0.3, Absolute Neuts (auto) 9.7 H, Absolute Lymphs (auto) 1.06, Nucleated RBC % 0, Sodium 127 L, Potassium 3.7, Chloride 87 L, Carbon Dioxide 32.0, Anion Gap 8, BUN 14, Creatinine 0.71, Estim Creat Clear Calc 71.13, Est GFR (MDRD) Af Amer 140, Est GFR (MDRD) Non-Af 116, BUN/Creatinine Ratio 19.8, Glucose 106, Calcium 8.2 L, Vancomycin Trough 24.5 H Microbiology: Microbiology 02/03/23 19:56 Wound - Leg, Left Gram Stain - Final 02/03/23 19:56 Wound - Leg, Left Wound Culture - Preliminary Staphylococcus aureus Gram negative dany 02/03/23 17:03 Wound - Leg, Left Gram Stain - Final 02/03/23 17:03 Wound - Leg, Left Wound Culture - Preliminary Proteus mirabilis Staphylococcus aureus D/C Instructions Discharge Diet: Low fat / Low cholesterol (1500 cc fluid restriction) Meaningful Use Info Meaningful Use Diagnoses (Choose all that apply): None applicable Discharge Plan Admission Admit Date/Time: 02/03/23 16:52 Primary Reason for Your Visit: LLE wounds/Falls Attending Provider: Danisha Harvey Primary Care Provider: Inocente Nichols Discharge Orders/Prescriptions Prescriptions: New cefdinir 300 mg capsule 300 mg PO BID Qty: 28 0RF linezolid [Zyvox] 600 mg tablet 600 mg PO Q12H 14 Days Qty: 28 0RF Continued hydrocodone-acetaminophen 5-325 mg tablet 1 tab PO Q8H atorvastatin 80 mg tablet 80 mg PO DAILY Qty: 30 5RF lactulose 10 gram/15 mL solution 30 g PO BID PRN (Reason: constipation) olanzapine [Zyprexa] 15 mg tablet 15 mg PO QHS guaifenesin 400 mg tablet 400 mg PO TID fluticasone propionate 50 mcg/actuation spray,suspension 2 spray intranasal DAILY Rx Instructions: administer into each nostril loratadine 10 mg tablet 10 mg PO DAILY cholecalciferol (vitamin D3) 1,000 UNIT tablet 2,000 unit PO DAILY melatonin 3 MG tablet 3 mg PO QHS PRN (Reason: SLEEP ) tamsulosin 0.4 MG capsule 0.8 mg PO QHS Rx Instructions: 2 -0.4mg caps finasteride 5 MG tablet 5 mg PO QHS omeprazole 20 MG capsule 20 mg PO DAILY mineral oil Enema 133 ml CA DAILY PRN (Reason: Constipation) Pulmicort Flexhaler 180 mcg/actuation Aerosol Powdr Breath Activated 2 inh INHALATION BID folic acid 1 MG tablet 1 mg PO DAILY multivitamin Tablet 1 tab PO DAILY losartan 50 mg tablet 50 mg PO DAILY bisacodyl 10 mg Suppository 10 mg CA DAILY PRN (Reason: Constipation) thiamine HCl (vitamin B1) 100 MG tablet 100 mg PO DAILYCM divalproex [Depakote ER] 250 mg tablet extended release 24 hr 500 mg PO QHS furosemide 40 mg tablet 40 mg PO BID aspirin [Adult Low Dose Aspirin] 81 mg tablet,delayed release (DR/EC) 81 mg PO DAILY potassium chloride 20 mEq tablet extended release 20 meq PO BID Qty: 60 0RF sodium chloride 1,000 mg tablet,soluble 1,000 mg PO TID albuterol sulfate 90 mcg/actuation HFA aerosol inhaler 1 - 2 puff inhalation 4X/DAY PRN (Reason: Sob &/Or Wheezing) Referrals / Follow Up: Sandeep Nava MD [Med Staff - Consulting] - See Referral Note (As previously scheduled from last hospitalization) Inocente Nichols MD [Primary Care Provider] - Within 2 Weeks (Follow-up within 2 weeks after discharge from skilled facility) Disposition Disposition (needs filled in before D/C Order can be placed): Care Home Facility Charges/Coding Visit Charges Inpatient E&M: 86751 Disch Hosp >30min
[2023-02-05 13:30] LABS: Hemoglobin 10.1 g/dL (13.0-16.5)
--- NOTE | 2023-02-05 13:30 | CASEMGMT ---
Patient was approved to go to [facility]. SW notified physician. SW completed a 7000 in [facility] system. Plan: d/c to [facility] under skilled level of care on a convalescent stay. Comfort PARNELL
--- NOTE | 2023-02-05 14:28 | PHA.DC.MR.R ---
Pharmacy [place] Med Reconciliation Pharmacy Service has performed discharge medication reconciliation for this patient upon transfer to [facility] The patient's discharge medication list was reviewed for discrepancies and discrepancies were resolved. Medications at Discharge Home Medications cholecalciferol (vitamin D3) 25 mcg (1,000 unit) tablet 2,000 unit PO DAILY supplement 02/22/19 finasteride 5 mg tablet 5 mg PO QHS prostate 02/22/19 melatonin 3 mg tablet 3 mg PO QHS PRN SLEEP 02/22/19 tamsulosin 0.4 mg capsule 0.8 mg PO QHS urinary issues 02/22/19 omeprazole 20 mg capsule,delayed release 20 mg PO DAILY ACID REFLUX 01/09/20 budesonide 180 mcg/actuation breath activated powder inhaler (Pulmicort Flexhaler) 2 inh inhalation BID WHEEZING/SHORTNESS OF BREATH 12/19/21 mineral oil 133 ml NV DAILY PRN Constipation 12/19/21 bisacodyl 10 mg rectal suppository 10 mg NV DAILY PRN Constipation 03/07/22 folic acid 1 mg tablet 1 mg PO DAILY SUPPLEMENT 03/07/22 losartan 50 mg tablet 50 mg PO DAILY BLOOD PRESSURE 03/07/22 multivitamin 1 tab PO DAILY supplement 03/07/22 thiamine HCl (vitamin B1) 100 mg tablet 100 mg PO DAILYCM supplement 03/07/22 furosemide 40 mg tablet 40 mg PO BID FLUID 08/11/22 hydrocodone-acetaminophen 5-325mg 5mg-325mg 1 tab PO Q8H PAIN 09/24/22 atorvastatin 80 mg tablet 80 mg PO DAILY CHOLESTEROL #30 tabs 10/14/22 aspirin 81 mg tablet,delayed release (Adult Low Dose Aspirin) 81 mg PO DAILY HEALTH MAINTENANCE 01/21/23 divalproex 250 mg tablet,extended release 24 hr (Depakote ER) 500 mg PO QHS mental health 01/21/23 fluticasone propionate 50 mcg/actuation nasal spray,suspension 2 spray intranasal DAILY SINUS 01/21/23 guaifenesin 400 mg tablet 400 mg PO TID COUGH 01/21/23 lactulose 10 gram/15 mL oral solution 30 g PO BID PRN constipation 01/21/23 loratadine 10 mg tablet 10 mg PO DAILY ALLERGIES 01/21/23 olanzapine 15 mg tablet (Zyprexa) 15 mg PO QHS Mental disorder 01/21/23 potassium chloride 20 mEq tablet,extended release 20 meq PO BID SUPPLEMENT #60 tabs 01/26/23 albuterol sulfate 90 mcg/actuation aerosol inhaler 1 - 2 puff inhalation 4X/DAY PRN Sob &/Or Wheezing 02/03/23 sodium chloride 1,000 mg soluble tablet 1,000 mg PO TID SUPPLEMENT 02/03/23 cefdinir 300 mg capsule 300 mg PO BID #28 caps 02/05/23 linezolid 600 mg tablet (Zyvox) 600 mg PO Q12H 14 days #28 tabs 02/05/23
[2023-02-05 15:39] VITALS: BP 132/45; PULSE 51; RESP 18; TEMP 36.9; O2SAT 95
--- NOTE | 2023-02-05 15:46 | CASEMGMT ---
Discharge Planning Discharge orders, signed med list, and pickup time sent to [place] via [facility]. [facility] will transport patient by wheelchair, arriving at hospital between 3:12-4:12. Confirmation #[id number]. Patient, his sister, nursing and SW notified.
--- NOTE | 2023-02-05 16:01 | CASEMGMT ---
AMY wrote on patient's d/c instructions that patient has an appt with pain management Dr Christensen Feb 18 at 1p. Comfort Minor [employer] SOHEILA
== END 2023-02-05 16:10 | disposition skilled nursing facility (03) | DRG 603 ==
LOC: ED 16:52 → PCU 16:59
PROVIDERS: Admitting Provider Internal Medicine; Emergency Provider Emergency Medicine; PCP Internal Medicine; Visit Provider Internal Medicine
DX: L03.116 Cellulitis of left lower limb (principal); S32.010A Wedge compression fracture of first lumbar vertebra, initial encounter for closed fracture; E87.1 Hypo-osmolality and hyponatremia; C34.91 Malignant neoplasm of unspecified part of right bronchus or lung; C34.92 Malignant neoplasm of unspecified part of left bronchus or lung; S32.020A Wedge compression fracture of second lumbar vertebra, initial encounter for closed fracture; I27.20 Pulmonary hypertension, unspecified; L89.312 Pressure ulcer of right buttock, stage 2; F25.9 Schizoaffective disorder, unspecified; L89.319 Pressure ulcer of right buttock, unspecified stage; J44.9 Chronic obstructive pulmonary disease, unspecified; F31.9 Bipolar disorder, unspecified; I48.0 Paroxysmal atrial fibrillation; D64.9 Anemia, unspecified; I10 Essential (primary) hypertension; I25.10 Atherosclerotic heart disease of native coronary artery without angina pectoris; E78.5 Hyperlipidemia, unspecified; F17.210 Nicotine dependence, cigarettes, uncomplicated; R14.0 Abdominal distension (gaseous); D72.829 Elevated white blood cell count, unspecified; K21.9 Gastro-esophageal reflux disease without esophagitis; J30.2 Other seasonal allergic rhinitis; I87.2 Venous insufficiency (chronic) (peripheral); K59.09 Other constipation; Z80.42 Family history of malignant neoplasm of prostate; Z79.82 Long term (current) use of aspirin; Z79.51 Long term (current) use of inhaled steroids; Z80.1 Family history of malignant neoplasm of trachea, bronchus and lung; N40.0 Benign prostatic hyperplasia without lower urinary tract symptoms; B95.62 Methicillin resistant Staphylococcus aureus infection as the cause of diseases classified elsewhere; Z79.899 Other long term (current) drug therapy
CPT/HCPCS: 36415; 71045; 73590; 74176; 80048; 80053; 80202; 82306; 83605; 83735; 84100; 85018; 85025; 87040; 87070; 87077; 87186; 87205; 87640; 93005; 93970; 94640; 97162; 97166; 97802; 99285; J7030; J7040

== ENCOUNTER 2023-05-12 09:43 | Inpatient (IN) | payer MEDICARE, MEDICAID, SELFPAY ==
[2023-05-12] VITALS (11 sets, daily range): BP systolic 114–163; BP diastolic 45–98; PULSE 41–73; RESP 12–26; TEMP 36–37; O2SAT 93–98; BMI 28.7; BMI 27.1
--- NOTE | 2023-05-12 10:11 | RAD_ITS ---
STUDY: X-RAY CHEST REASON FOR EXAM: Male, 73 years old. Dyspnea. TECHNIQUE: Single frontal view of the chest on 2 images. COMPARISON: February 03, 2023 FINDINGS: Cardiomegaly, aortic tortuosity with calcification, prominent central pulmonary arteries and increase in bilateral diffuse interstitial prominence and small effusions bilaterally, left greater than right. Findings compatible with worsening interstitial edema/congestive failure. Follow-up chest imaging to resolution recommended. Mild gaseous distention of transverse colon RAD/Chest 1 View (Portable) IMPRESSION: Findings compatible with worsening interstitial edema/congestive failure. Follow-up chest imaging to resolution recommended. Electronically Signed: Deshawn Paul MD at 11:18 EDT ,
--- NOTE | 2023-05-12 10:12 | EDS_ITS ---
HPI History of Present Illness Chief Complaint: General Illness Detail of Chief Complaint: Not feeling well, cough Informant: patient Narrative Narrative: Patient presents to the emergency department via EMS from extended-care facility. Patient with progressive decline. Patient apparently not been feeling well for maybe a couple weeks. Patient tells me he is currently on an antibiotic but cannot tell me why it and cannot tell me for what. Patient's had a moist cough per senior living and has been febrile. Patient tells me he does have where oxygen at the extended care facility. Patient denies chest pain or abdominal pain. He complains of just generalized weakness. Denies blood in his stool or black tarry stool. [facility] Medical History Acute exacerbation of chronic obstructive pulmonary disease Acute hyponatremia Adenocarcinoma of left lung Adult failure to thrive AF (paroxysmal atrial fibrillation) Alcohol abuse Alcohol dependence Alcoholic polyneuropathy Anxiety Atrial fibrillation Bilateral edema of lower extremity Bipolar disorder BPH without obstruction/lower urinary tract symptoms Bradycardia CAD (coronary artery disease) Cancer Chronic anemia Chronic hip pain, bilateral Chronic low back pain Chronic pain Closed subcapital fracture of right femur COLD (chronic obstructive lung disease) Compression fracture of L1 lumbar vertebra Compression fracture of L2 COPD (chronic obstructive pulmonary disease) Decubitus ulcer of right buttock, stage 2 Dermatophytosis of nail Dyspnea Elevated lactic acid level Fall Generalized weakness GERD (gastroesophageal reflux disease) High cholesterol History of colon polyps HLD (hyperlipidemia) HTN (hypertension) Hyponatremia Irregular heartbeat Lymphedema Macrocytic anemia Nodule of right lung Nondisp fx proximal phalanx lesser toe right foot w/routine heal Obesity (BMI 30.0-34.9) PAD (peripheral artery disease) Paroxysmal atrial fibrillation Physical debility Pre-procedure lab exam Primary adenocarcinoma of lower lobe of right lung Primary adenocarcinoma of upper lobe of left lung Pulmonary hypertension PVD (peripheral vascular disease) Schizoaffective disorder Seasonal allergic rhinitis Skin tear Smoker Spinal stenosis of lumbar region with neurogenic claudication Stage I decubitus ulcer and pressure area Stenosis of esophagus Tobacco use disorder Unable to ambulate Urinary incontinence Wound of right foot Home Medications cholecalciferol (vitamin D3) 25 mcg (1,000 unit) tablet 2,000 unit PO DAILY supplement 02/22/19 [History Last Taken 02/03/23] finasteride 5 mg tablet 5 mg PO QHS prostate 02/22/19 [History Last Taken 02/02/23] melatonin 3 mg tablet 3 mg PO QHS PRN SLEEP 02/22/19 [History Last Taken 02/02/23] tamsulosin 0.4 mg capsule 0.8 mg PO QHS urinary issues 02/22/19 [History Last Taken 02/02/23] omeprazole 20 mg capsule,delayed release 20 mg PO DAILY ACID REFLUX 01/09/20 [History Last Taken 02/03/23] budesonide 180 mcg/actuation breath activated powder inhaler (Pulmicort Flexhaler) 2 inh inhalation BID WHEEZING/SHORTNESS OF BREATH 12/19/21 [History Last Taken 02/03/23] mineral oil 133 ml [place] DAILY PRN Constipation 12/19/21 [History Last Taken Unknown] bisacodyl 10 mg rectal suppository 10 mg VA DAILY PRN Constipation 03/07/22 [History Last Taken Unknown] folic acid 1 mg tablet 1 mg PO DAILY SUPPLEMENT 03/07/22 [History Last Taken 02/03/23] losartan 50 mg tablet 50 mg PO DAILY BLOOD PRESSURE 03/07/22 [History Last Taken 02/03/23] multivitamin 1 tab PO DAILY supplement 03/07/22 [History Last Taken 02/03/23] thiamine HCl (vitamin B1) 100 mg tablet 100 mg PO DAILYCM supplement 03/07/22 [History Last Taken 02/03/23] furosemide 40 mg tablet 40 mg PO BID FLUID 08/11/22 [History Last Taken 02/03/23] atorvastatin 80 mg tablet 80 mg PO DAILY CHOLESTEROL #30 tabs 10/14/22 [Rx Last Taken 02/03/23] aspirin 81 mg tablet,delayed release (Adult Low Dose Aspirin) 81 mg PO DAILY HEALTH MAINTENANCE 01/21/23 [History Last Taken 02/03/23] divalproex 250 mg tablet,extended release 24 hr (Depakote ER) 500 mg PO QHS mental health 01/21/23 [History Last Taken 02/02/23] fluticasone propionate 50 mcg/actuation nasal spray,suspension 2 spray intranasal DAILY SINUS 01/21/23 [History Last Taken 02/03/23] guaifenesin 400 mg tablet 400 mg PO TID COUGH 01/21/23 [History Last Taken 02/03/23] lactulose 10 gram/15 mL oral solution 30 g PO BID PRN constipation 01/21/23 [History Last Taken Unknown] loratadine 10 mg tablet 10 mg PO DAILY ALLERGIES 01/21/23 [History Last Taken 02/03/23] olanzapine 15 mg tablet (Zyprexa) 15 mg PO QHS Mental disorder 01/21/23 [History Last Taken 02/02/23] potassium chloride 20 mEq tablet,extended release 20 meq PO BID SUPPLEMENT #60 tabs 01/26/23 [Rx Last Taken 02/03/23] albuterol sulfate 90 mcg/actuation aerosol inhaler 1 - 2 puff inhalation 4X/DAY PRN Sob &/Or Wheezing 02/03/23 [History Last Taken Unknown] sodium chloride 1,000 mg soluble tablet 1,000 mg PO TID SUPPLEMENT 02/03/23 [History Last Taken 02/03/23] hydrocodone-acetaminophen 5-325mg 5mg-325mg 1 tab PO Q8H PAIN 1 day #3 tabs 02/05/23 [Rx Last Taken Unknown] linezolid 600 mg tablet (Zyvox) 600 mg PO Q12H 14 days #28 tabs 02/05/23 [Rx Last Taken Unknown] Allergy/AdvReac Type Severity Reaction Status Date / Time venom-honey bee Allergy Severe Anaphylaxis Verified 05/12/23 10:46 [bee venom (honey bee)] Family History Father Prostate cancer Mother Lung cancer Surgical History History of heart artery stent History of heart artery stent History of hernia repair History of right hip replacement Social History household members: none Smoking Status: Current some day smoker tobacco type: cigarettes Tobacco: How many years used: 60 second hand exposure: No quit status: has quit before alcohol intake: current alcohol intake frequency: 0-2 drinks per day Alcohol type: beer details: 2 beers every evening substance use type: does not use caffeine: Yes Type: coffee Number of servings: 2 luis/latter day: None seatbelt use: always do you feel safe at home: Yes ROS ROS ED Review of Systems ROS Unobtainable: other Constitutional Constitutional ED: Reports lethargy; Denies chills, fever(s), sweats or weight loss Eyes Eyes: Denies blurry vision, change in vision or diplopia ENT ENT ED: Denies rhinorrhea or sore throat Cardiovascular Cardiovascular: Denies chest pain, orthopnea or racing heartbeat Respiratory/Chest Respiratory/Chest: Reports cough, dyspnea and dyspnea on exertion; Denies orthopnea or sputum Gastrointestinal Gastrointestinal: Denies abdominal pain, diarrhea, nausea or vomiting Genitourinary Genitourinary ED: Denies dysuria, hematuria or urinary frequency Musculoskeletal Musculoskeletal: Denies arthralgias, back pain, myalgias or neck pain Integumentary Denies abscess, Abrasions or rash Neurologic Neurologic: Reports weakness; Denies headache(s) Psychiatric Psychiatric: Denies anxiety, depression or suicidal thoughts Endocrine Endocrinology: Denies polydipsia, polyphagia or polyuria Hematologic/Lymphatic Hematologic/Lymphatic: Denies easy bleeding, easy bruising or lymphadenopathy Allergic/Immunologic Allergic/Immunologic ED: Denies mouth swelling, tongue swelling or urticaria EXAM Physical Exam Const Vital Signs: 05/12/23 09:45 05/12/23 10:40 05/12/23 10:40 Temperature 96.8 F L Temperature Source Oral Oral Pulse Rate 45 L Respiratory Rate 16 Respiratory Effort Short of Breath Blood Pressure 134/52 H Blood Pressure Mean 79 Pulse Ox 98 Oxygen Delivery Method Room Air Oxygen Flow Rate (L/min) 05/12/23 11:35 Temperature 97.4 F L Temperature Source Temporal Pulse Rate 53 L Respiratory Rate 23 H Respiratory Effort Blood Pressure 158/60 H Blood Pressure Mean 92 Pulse Ox 95 Oxygen Delivery Method Nasal Cannula Oxygen Flow Rate (L/min) 2 Positive well nourished and well developed General Appearance ED: well developed and NAD HEENT Reports TM's clear and moist mucous membranes normocephalic and atraumatic; Negative for trauma or tenderness Tympanic Membrane ED: Yes TM's clear Eyes PERRL and EOMs intact bilaterally General Eye ED: Negative for pale conjunctiva or scleral icterus Neck no lymphadenopathy, supple and no JVD General: Negative for tenderness Chest Wall inspection of chest normal and palpation of chest normal Chest: Negative for tenderness Resp normal respiratory effort Resp Narrative: Faint expiratory wheezes bilaterally. No significant tachypnea. No accessory muscle use or retractions. Effort and Inspection: Negative for respiratory distress or pain with movement Auscultation: Negative for rhonchi, wheezes or diminished lung sounds Cardio regular rhythm, S1 normal heart sound, S2 normal heart sound and no murmurs Rate: bradycardia Peripheral Pulses: pulses 2+ throughout GI normal to inspection, nondistended, normoactive bowel sounds, soft to palpation, non-tender, non-distended and no masses Back/Spine no CVA tenderness and no thoracic nor lumbar tenderness Extremity normal to inspection General Extremety ED: Negative for edema General Extremity: Negative for edema Neuro oriented x3, CN's II-XII intact bilaterally, no sensory deficits noted and gait normal Sensorium / Orientation: awake, alert, oriented to person, oriented to place and oriented to time Motor Exam: strength 5/5 throughout and strength abnormal Psych mental status grossly normal Skin no rashes or lesions noted and no wounds MDM MDM MDM Narrative Medical decision making narrative: Patient presents with general weakness and cough and feeling short of breath. In the differential would be URI or pneumonia. Also CHF. Patient not have any chest pain. The weakness may be related to infectious etiology versus anemia or electrolyte abnormality. IV line established. CBC with differential white count of 8.9 with hemoglobin 8.0 as well as platelet count of 452. Chemistries unremarkable. Troponin was normal at 46 and BNP was elevated 481. Chest x-ray showed signs of CHF. Urinalysis was unremarkable. Hemoccult stool was pending. The rectal exam showed brown stool. Discussed case with hospitalist to evaluate patient for admission. I did order Lasix 40 mg IV. Lab Data Attestation: I reviewed the patient's lab results. Labs: Laboratory Results - last 24 hr 05/12/23 05/12/23 10:44 11:29 WBC 8.9 RBC 2.50 L Hgb 8.0 L Hct 25.3 L MCV 101.2 H MCH 32.0 MCHC 31.6 L RDW Std Deviation 55.3 H RDW Coeff of Fredi 15.1 H Plt Count 452 H MPV 9.3 Immature Gran % (Auto) 0.700 Neut % (Auto) 77.5 H Lymph % (Auto) 8.8 L Winston % (Auto) 11.7 H Eos % (Auto) 0.9 Baso % (Auto) 0.4 Absolute Neuts (auto) 6.9 Absolute Lymphs (auto) 0.78 L Nucleated RBC % 0 Sodium 133 L Potassium 4.5 Chloride 96 L Carbon Dioxide 33.0 H Anion Gap 4 L BUN 12 Creatinine 0.51 L Estim Creat Clear Calc 70.06 Est GFR (MDRD) Af Amer 202 Est GFR (MDRD) Non-Af 167 BUN/Creatinine Ratio 23.3 H Glucose 115 H Lactic Acid 0.7 Calcium 8.6 Troponin I High Sens 46 B-Natriuretic Peptide 481.0 H Urine Color Yellow Urine Clarity Clear Urine pH 6.0 Ur Specific Douglas 1.010 Urine Protein Negative Urine Glucose (UA) Normal Urine Ketones Negative Urine Occult Blood Negative Urine Nitrite Negative Urine Bilirubin Negative Urine Urobilinogen 4 H Ur Leukocyte Esterase Negative Urine RBC 0 SEEN Urine WBC 0 SEEN Ur Squamous Epith Cells 0 SEEN Urine Bacteria 0 SEEN Urine Mucus 0 SEEN Radiography Diagnostic Testing: Clinical Impression(s) from Imaging Studies Chest X-Ray 05/12/23 10:11 IMPRESSION: Findings compatible with worsening interstitial edema/congestive failure. Follow-up chest imaging to resolution recommended. Electronically Signed: Deshawn Paul MD at 11:18 EDT , 1 view chest x-ray obtained interpreted by myself is increased vascular congestion. Radiology felt this was worsening interstitial edema and CHF. EKG Initial EKG: Attestation: I personally reviewed and interpreted this EKG as follows: Comments: Sinus rhythm with a rate of 49 bpm with incomplete right bundle branch block Discharge Plan Triage Chief Complaint: General Illness ED Provider: Concha Tam Dx/Rx/DC Orders Clinical Impression: CHF (congestive heart failure), Anemia, Weakness Prescriptions: No Action atorvastatin 80 mg tablet 80 mg PO DAILY Qty: 30 5RF lactulose 10 gram/15 mL solution 30 g PO BID PRN (Reason: constipation) olanzapine [Zyprexa] 15 mg tablet 15 mg PO QHS guaifenesin 400 mg tablet 400 mg PO TID fluticasone propionate 50 mcg/actuation spray,suspension 2 spray intranasal DAILY Rx Instructions: administer into each nostril loratadine 10 mg tablet 10 mg PO DAILY cholecalciferol (vitamin D3) 1,000 UNIT tablet 2,000 unit PO DAILY melatonin 3 MG tablet 3 mg PO QHS PRN (Reason: SLEEP ) tamsulosin 0.4 MG capsule 0.8 mg PO QHS Rx Instructions: 2 -0.4mg caps finasteride 5 MG tablet 5 mg PO QHS omeprazole 20 MG capsule 20 mg PO DAILY mineral oil Enema 133 ml [place] DAILY PRN (Reason: Constipation) Pulmicort Flexhaler 180 mcg/actuation Aerosol Powdr Breath Activated 2 inh INHALATION BID folic acid 1 MG tablet 1 mg PO DAILY multivitamin Tablet 1 tab PO DAILY losartan 50 mg tablet 50 mg PO DAILY bisacodyl 10 mg Suppository 10 mg [place] DAILY PRN (Reason: Constipation) thiamine HCl (vitamin B1) 100 MG tablet 100 mg PO DAILYCM divalproex [Depakote ER] 250 mg tablet extended release 24 hr 500 mg PO QHS furosemide 40 mg tablet 40 mg PO BID aspirin [Adult Low Dose Aspirin] 81 mg tablet,delayed release (DR/EC) 81 mg PO DAILY potassium chloride 20 mEq tablet extended release 20 meq PO BID Qty: 60 0RF sodium chloride 1,000 mg tablet,soluble 1,000 mg PO TID albuterol sulfate 90 mcg/actuation HFA aerosol inhaler 1 - 2 puff inhalation 4X/DAY PRN (Reason: Sob &/Or Wheezing) linezolid [Zyvox] 600 mg tablet 600 mg PO Q12H 14 Days Qty: 28 0RF hydrocodone-acetaminophen 5-325 mg tablet 1 tab PO Q8H 1 Days Qty: 3 0RF Primary Care Provider: Ronak Pollard Referrals: Inocente Nichols MD [Med Staff - Peripatologist] - Disposition Disposition: Acute Care Hospital [facility]
[2023-05-12] MEDS: 0.9% Normal Saline (1000mL) 1,000 ML 150 ML IV (10:43)
[2023-05-12 10:58] LABS: Absolute Lymphocyte Count 0.78 X10^3/uL (0.83-4.51); Absolute Neutrophil Count 6.9 X10^3/uL (2.0-7.7); Basophil# 0.04 X10^3/uL; Basophil% 0.4 % (0-1); Eosinophil# 0.08 X10^3/uL; Eosinophils% 0.9 % (0-5); Hematocrit 25.3 % (40-54); Lymphocyte # 0.78 X10^3/ul (0.83-4.51); Lymphocyte % 8.8 % (19-41); Mean Corp Hgb Conc 31.6 g/dL (32-36); Mean Corpuscular Volume 101.2 fL (80-94); Mean Platelet Vol. 9.3 fl (6.2-12.0); Monocyte# 1.04 X10^3/uL; Monocyte% 11.7 % (0-10); NRBC Flagged by Analyzer 0 % (0-5); Neutrophil # 6.91 X10^3/uL (2.7-7.7); Neutrophil % 77.5 % (47-70); Platelet Count 452 K/mm3 (150-450); RBC Distribution Width CV 15.1 % (11.6-14.6); RBC Distribution Width SD 55.3 fl (35.1-43.9); White Blood Count 8.9 K/mm3 (4.4-11.0)
[2023-05-12 11:26] LABS: Anion Gap 4 (5-15); BUN 12 mg/dL (7-18); BUN/Creat Ratio 23.3 RATIO (10-20); Calcium,Total 8.6 mg/dL (8.5-10.1); Chloride 96 mmol/L (98-107); Creatinine, Serum 0.51 mg/dL (0.70-1.30); EST Glomerular Filtration Rate 167 mL/min (>60); Est Glom Filt Rate - Afr Amer 202 mL/min (>60); Estimated Creatinine Clearance 70.06 ml/min; Glucose 115 mg/dL (74-106); Potassium 4.5 mmol/L (3.5-5.1); Sodium Level 133 mmol/L (136-145); Troponin-I HS 46 pg/mL (3.0-78.0)
[2023-05-12 11:27] LABS: Lactic Acid 0.7 mmol/L (0.4-1.9)
[2023-05-12 11:34] LABS: Bacteria 0 SEEN /hpf (None Seen); Mucous, Urine 0 SEEN /hpf (<or=2+); Red Blood Cells-Urine 0 SEEN /hpf (0-5); Squamous Epithelial Cells - UA 0 SEEN /hpf (0-5); White Blood Cells 0 SEEN /hpf (0-5)
[2023-05-12 11:45] LABS: Color, Urine Yellow (Yellow); Glucose, Dipstick Normal (Normal); Ketone-Dipstick Negative (Negative); Leukocyte Esterase-Dipstick Negative /ul (Negative); Nitrite-Dipstick Negative (Negative); Occult Blood-Urine Negative /ul (Negative); Protein-Dipstick Negative (Negative); Urine Bilirubin Dipstick Negative (Negative); Urine Clarity Clear (Clear); Urine Urobilinogen 4 mg/dl (Normal)
[2023-05-12] MEDS: Furosemide 40 MG/4 ML Vial IV (13:17)
--- NOTE | 2023-05-12 13:18 | HP.PCM.HOS_ITS ---
HPI - General General Date of Admission: 05/12/23 Date of Service: 05/12/23 Chief Complaint: SOB/Fatigue HPI Narrative KELLY YOU, is a 73 M who presented to the emergency department at [facility] on 05/12/2023 from local ECF complaining of worsening shortness of breath and fatigue. [facility] Medical History Acute exacerbation of chronic obstructive pulmonary disease Acute hyponatremia Adenocarcinoma of left lung Adult failure to thrive AF (paroxysmal atrial fibrillation) Alcohol abuse Alcohol dependence Alcoholic polyneuropathy Anxiety Atrial fibrillation Bilateral edema of lower extremity Bipolar disorder BPH without obstruction/lower urinary tract symptoms Bradycardia CAD (coronary artery disease) Cancer Chronic anemia Chronic hip pain, bilateral Chronic low back pain Chronic pain Closed subcapital fracture of right femur COLD (chronic obstructive lung disease) Compression fracture of L1 lumbar vertebra Compression fracture of L2 COPD (chronic obstructive pulmonary disease) Decubitus ulcer of right buttock, stage 2 Dermatophytosis of nail Dyspnea Elevated lactic acid level Fall Generalized weakness GERD (gastroesophageal reflux disease) High cholesterol History of colon polyps HLD (hyperlipidemia) HTN (hypertension) Hyponatremia Irregular heartbeat Lymphedema Macrocytic anemia Nodule of right lung Nondisp fx proximal phalanx lesser toe right foot w/routine heal Obesity (BMI 30.0-34.9) PAD (peripheral artery disease) Paroxysmal atrial fibrillation Physical debility Pre-procedure lab exam Primary adenocarcinoma of lower lobe of right lung Primary adenocarcinoma of upper lobe of left lung Pulmonary hypertension PVD (peripheral vascular disease) Schizoaffective disorder Seasonal allergic rhinitis Skin tear Smoker Spinal stenosis of lumbar region with neurogenic claudication Stage I decubitus ulcer and pressure area Stenosis of esophagus Tobacco use disorder Unable to ambulate Urinary incontinence Wound of right foot Home Medications cholecalciferol (vitamin D3) 25 mcg (1,000 unit) tablet 2,000 unit PO DAILY supplement 02/22/19 [History Last Taken 02/03/23] finasteride 5 mg tablet 5 mg PO QHS prostate 02/22/19 [History Last Taken ] melatonin 3 mg tablet 3 mg PO QHS PRN SLEEP 02/22/19 [History Last Taken 02/02/23] tamsulosin 0.4 mg capsule 0.8 mg PO QHS urinary issues 02/22/19 [History Last Taken 02/02/23] omeprazole 20 mg capsule,delayed release 20 mg PO DAILY ACID REFLUX 01/09/20 [History Last Taken 02/03/23] budesonide 180 mcg/actuation breath activated powder inhaler (Pulmicort Flexhaler) 2 inh inhalation BID WHEEZING/SHORTNESS OF BREATH 12/19/21 [History Last Taken 02/03/23] mineral oil 133 ml NM DAILY PRN Constipation 12/19/21 [History Last Taken Unknown] bisacodyl 10 mg rectal suppository 10 mg NM DAILY PRN Constipation 03/07/22 [History Last Taken Unknown] folic acid 1 mg tablet 1 mg PO DAILY SUPPLEMENT 03/07/22 [History Last Taken 02/03/23] losartan 50 mg tablet 50 mg PO DAILY BLOOD PRESSURE 03/07/22 [History Last Taken 02/03/23] multivitamin 1 tab PO DAILY supplement 03/07/22 [History Last Taken 02/03/23] thiamine HCl (vitamin B1) 100 mg tablet 100 mg PO DAILYCM supplement 03/07/22 [History Last Taken 02/03/23] furosemide 40 mg tablet 40 mg PO BID FLUID 08/11/22 [History Last Taken 02/03/23] atorvastatin 80 mg tablet 80 mg PO DAILY CHOLESTEROL #30 tabs 10/14/22 [Rx Last Taken 02/03/23] aspirin 81 mg tablet,delayed release (Adult Low Dose Aspirin) 81 mg PO DAILY HEALTH MAINTENANCE 01/21/23 [History Last Taken 02/03/23] divalproex 250 mg tablet,extended release 24 hr (Depakote ER) 500 mg PO QHS mental health 01/21/23 [History Last Taken 02/02/23] fluticasone propionate 50 mcg/actuation nasal spray,suspension 2 spray intranasal DAILY SINUS 01/21/23 [History Last Taken 02/03/23] guaifenesin 400 mg tablet 400 mg PO TID COUGH 01/21/23 [History Last Taken 02/03/23] lactulose 10 gram/15 mL oral solution 30 g PO BID PRN constipation 01/21/23 [History Last Taken Unknown] loratadine 10 mg tablet 10 mg PO DAILY ALLERGIES 01/21/23 [History Last Taken 02/03/23] olanzapine 15 mg tablet (Zyprexa) 15 mg PO QHS Mental disorder 01/21/23 [History Last Taken 02/02/23] potassium chloride 20 mEq tablet,extended release 20 meq PO BID SUPPLEMENT #60 tabs 01/26/23 [Rx Last Taken 02/03/23] albuterol sulfate 90 mcg/actuation aerosol inhaler 1 - 2 puff inhalation 4X/DAY PRN Sob &/Or Wheezing 02/03/23 [History Last Taken Unknown] sodium chloride 1,000 mg soluble tablet 1,000 mg PO TID SUPPLEMENT 02/03/23 [History Last Taken 02/03/23] hydrocodone-acetaminophen 5-325mg 5mg-325mg 1 tab PO Q8H PAIN 1 day #3 tabs 02/05/23 [Rx Last Taken Unknown] linezolid 600 mg tablet (Zyvox) 600 mg PO Q12H 14 days #28 tabs 02/05/23 [Rx Last Taken Unknown] Allergy/AdvReac Type Severity Reaction Status Date / Time venom-honey bee Allergy Severe Anaphylaxis Verified 05/12/23 10:46 [bee venom (honey bee)] Family History Father Prostate cancer Mother Lung cancer Surgical History History of heart artery stent History of heart artery stent History of hernia repair History of right hip replacement Social History (Updated 05/12/23 @ 13:[address] Danisha Harvey DO) housing: skilled nursing Smoking Status: Current some day smoker tobacco type: cigarettes Tobacco: How many years used: 60 second hand exposure: No quit status: has quit before alcohol intake: current alcohol intake frequency: 0-2 drinks per day Alcohol type: beer details: 2 beers every evening substance use type: does not use caffeine: Yes Type: coffee Number of servings: 2 luis/uatsdin: None seatbelt use: always do you feel safe at home: Yes Vital Signs Vital Signs Vital Signs: 05/12/23 09:45 05/12/23 10:40 05/12/23 10:40 Temperature 96.8 F L Temperature Source Oral Oral Pulse Rate 45 L Respiratory Rate 16 Respiratory Effort Short of Breath Blood Pressure 134/52 H Blood Pressure Mean 79 Pulse Ox 98 Oxygen Delivery Method Room Air Oxygen Flow Rate (L/min) 05/12/23 11:35 Temperature 97.4 F L Temperature Source Temporal Pulse Rate 53 L Respiratory Rate 23 H Respiratory Effort Blood Pressure 158/60 H Blood Pressure Mean 92 Pulse Ox 95 Oxygen Delivery Method Nasal Cannula Oxygen Flow Rate (L/min) 2 Weight Weight: 96 kg Body Mass Index (BMI) 28.7 Results Lab / Micro Data 05/12/23 10:44 05/12/23 10:44 Labs: Laboratory Results - last 24 hr 05/12/23 10:44: WBC 8.9, RBC 2.50 L, Hgb 8.0 L, Hct 25.3 L, MCV 101.2 H, MCH 32.0, MCHC 31.6 L, RDW Std Deviation 55.3 H, RDW Coeff of Fredi 15.1 H, Plt Count 452 H, MPV 9.3, Immature Gran % (Auto) 0.700, Neut % (Auto) 77.5 H, Lymph % (Auto) 8.8 L, Butts % (Auto) 11.7 H, Eos % (Auto) 0.9, Baso % (Auto) 0.4, Absolute Neuts (auto) 6.9, Absolute Lymphs (auto) 0.78 L, Nucleated RBC % 0, Sodium 133 L, Potassium 4.5, Chloride 96 L, Carbon Dioxide 33.0 H, Anion Gap 4 L , BUN 12, Creatinine 0.51 L, Estim Creat Clear Calc 70.06, Est GFR (MDRD) Af Amer 202, Est GFR (MDRD) Non-Af 167, BUN/Creatinine Ratio 23.3 H, Glucose 115 H, Lactic Acid 0.7, Calcium 8.6, Troponin I High Sens 46, B-Natriuretic Peptide 481.0 H 05/12/23 11:29: Urine Color Yellow, Urine Clarity Clear, Urine pH 6.0, Ur Specific [place] 1.010, Urine Protein Negative, Urine Glucose (UA) Normal, Urine Ketones Negative, Urine Occult Blood Negative, Urine Nitrite Negative, Urine Bilirubin Negative, Urine Urobilinogen 4 H, Ur Leukocyte Esterase Negative, Urine RBC 0 SEEN, Urine WBC 0 SEEN, Ur Squamous Epith Cells 0 SEEN, Urine Bacteria 0 SEEN, Urine Mucus 0 SEEN Micro: Microbiology 05/12/23 11:01 Nasal Secretion SARS-CoV-2 & FLU Antigen (Rapid) - Final Radiology Impression Chest X-Ray 05/12/23 10:11 IMPRESSION: Findings compatible with worsening interstitial edema/congestive failure. Follow-up chest imaging to resolution recommended. Electronically Signed: Deshawn Paul MD at 11:18 EDT , Assessment & Plan Assessment/Plan (1) Hypoxia: (2) SOB (shortness of breath): (3) Fatigue: (4) Acute on chronic anemia: (5) Thrombocytosis: PLAN: Plan Hyponatremia -Acute on chronic -Baseline appears to be between 120 and 125 -113 on admission and up to 123 today just with fluid restriction and continuing his home Lasix and sodium tablets -Highly suspect patient has not been compliant with his fluid restriction at home and that is the etiology of his drop in sodium since discharge -Continued to drink 2-4 beers daily -Fluid restrict to 1500 cc -Continue home Lasix -Continue home salt tablets -With improvement in sodium will discontinue nephrology consultation -Patient just had extensive work-up we will not pursue any further at this time as he did improve with previous treatment L1 and 2 compression fractures -Patient is not complaining of significant back pain -Likely related to his recent falls at home -No neurological deficits -Continue PT/OT -Check vitamin D level Leukocytosis -Suspect related to above infection -Trending down History of COPD -As needed aerosols -Continue home guaifenesin -Is not on oxygen at baseline -Continue Pulmicort -No signs of acute exacerbation at this time History of adenocarcinoma of the lung -Patient has had adenocarcinoma of bilateral lungs -Has had a previous recent favorable PET scan -Follows at the [facility] -Clinically stable PAF -Patient is in A-fib but rate controlled on presentation -No anticoagulation due to alcohol use and frequent falls CAD/HPL/HTN -Continue home atorvastatin -hold home Lasix and use IV -Continue home losartan -FEN continue home potassium supplementation Pulmonary hypertension -Suspect secondary to lung disease with who group 3 -Continue home Lasix Acute on chronic debility -PT/OT consultation -Patient will likely require skilled placement at discharge and is willing to be placed short-term BPH -Continue Flomax GERD -Continue PPI Seasonal allergies -Continue home loratadine Chronic constipation -Continue home lactulose -Continue home Dulcolax Chronic alcohol use -Patient drinks approximately 2-4 beers daily -Extensive discussion with the patient with regards to his alcohol use and that he needs to markedly limit this at home with abstinence being the best. Patient has indicated previously and at this admission he has no intention on quitting drinking alcohol Tobacco abuse -Patient states he is smoking a lot -Nicotine patch -Recommend cessation Bipolar disorder -Stable -Continue home psychiatric medications DVT prophylaxis -SCDs and hold chemoprophylaxis until can r/o GI Bleed CODE STATUS -Full code
--- NOTE | 2023-05-12 13:18 | PCM.HP.STD ---
HPI - General General Date of Admission: 05/12/23 Date of Service: 05/12/23 Chief Complaint: SOB/Fatigue HPI Narrative KELLY YOU, is a 73 M who presented to the emergency department at [facility] on 05/12/2023 from local F complaining of worsening shortness of breath and fatigue. States its been ongoing for about a week or so now. He reports he had increased shortness of breath some mild cough with white sputum production that is frothy in nature but denies any fever or chills. He has had no sick contacts of which she is aware. However, he is residing at an [facility] currently. He denies any fever or chills and states the biggest complaints he has are the significant shortness of breath in the overwhelming fatigue he has had lately. He denies any melena or hematochezia, nausea, vomiting, diarrhea, or constipation. He has had some increasing weakness as of late as well. He is still smoking and states his family occasionally will sneak alcohol and for him to drink at the [facility]. He is not drinking on a daily basis any longer. Vital signs are as follows: Temperature 96.8, heart rate has been anywhere from 45-60, blood pressure 134/52, respirate 16 oxygen saturations are 98% on 2 L nasal cannula. CBC shows a normal white count however his hemoglobin is 8.0 which is down from his baseline of 10-12. His platelet count is up at 452,000 which is atypical for him. He has a slight left shift but again is not complaining of any infectious type symptomology. He also has a monocytosis. His chemistry panel shows hyponatremia with a sodium of 133 which is higher than his baseline, carbon dioxide of 33 which is his baseline, BUN of 12 and a serum creatinine of 0.51. Glucose is 115. Lactic acid is 0.7. His initial troponin was 46 and his BNP was 481 which is higher than his typical. His urine is unremarkable. Chest x-ray shows findings compatible with worsening interstitial edema and heart failure. An EKG shows mild bradycardia but no ST-T wave changes concerning for acute ischemia. He has been bradycardic on previous admissions as well. [facility] Medical History Acute exacerbation of chronic obstructive pulmonary disease Acute hyponatremia Adenocarcinoma of left lung Adult failure to thrive AF (paroxysmal atrial fibrillation) Alcohol abuse Alcohol dependence Alcoholic polyneuropathy Anxiety Atrial fibrillation Bilateral edema of lower extremity Bipolar disorder BPH without obstruction/lower urinary tract symptoms Bradycardia CAD (coronary artery disease) Cancer Chronic anemia Chronic hip pain, bilateral Chronic low back pain Chronic pain Closed subcapital fracture of right femur COLD (chronic obstructive lung disease) Compression fracture of L1 lumbar vertebra Compression fracture of L2 COPD (chronic obstructive pulmonary disease) Decubitus ulcer of right buttock, stage 2 Dermatophytosis of nail Dyspnea Elevated lactic acid level Fall Generalized weakness GERD (gastroesophageal reflux disease) High cholesterol History of colon polyps HLD (hyperlipidemia) HTN (hypertension) Hyponatremia Irregular heartbeat Lymphedema Macrocytic anemia Nodule of right lung Nondisp fx proximal phalanx lesser toe right foot w/routine heal Obesity (BMI 30.0-34.9) PAD (peripheral artery disease) Paroxysmal atrial fibrillation Physical debility Pre-procedure lab exam Primary adenocarcinoma of lower lobe of right lung Primary adenocarcinoma of upper lobe of left lung Pulmonary hypertension PVD (peripheral vascular disease) Schizoaffective disorder Seasonal allergic rhinitis Skin tear Smoker Spinal stenosis of lumbar region with neurogenic claudication Stage I decubitus ulcer and pressure area Stenosis of esophagus Tobacco use disorder Unable to ambulate Urinary incontinence Wound of right foot Home Medications cholecalciferol (vitamin D3) 25 mcg (1,000 unit) tablet 2,000 unit PO DAILY supplement 02/22/19 [History Last Taken 02/03/23] finasteride 5 mg tablet 5 mg PO QHS prostate 02/22/19 [History Last Taken 02/02/23] melatonin 3 mg tablet 3 mg PO QHS PRN SLEEP 02/22/19 [History Last Taken 02/02/23] tamsulosin 0.4 mg capsule 0.8 mg PO QHS urinary issues 02/22/19 [History Last Taken 02/02/23] omeprazole 20 mg capsule,delayed release 20 mg PO DAILY ACID REFLUX 01/09/20 [History Last Taken 02/03/23] budesonide 180 mcg/actuation breath activated powder inhaler (Pulmicort Flexhaler) 2 inh inhalation BID WHEEZING/SHORTNESS OF BREATH 12/19/21 [History Last Taken 02/03/23] mineral oil 133 ml NV DAILY PRN Constipation 12/19/21 [History Last Taken Unknown] bisacodyl 10 mg rectal suppository 10 mg NV DAILY PRN Constipation 03/07/22 [History Last Taken Unknown] folic acid 1 mg tablet 1 mg PO DAILY SUPPLEMENT 03/07/22 [History Last Taken 02/03/23] losartan 50 mg tablet 50 mg PO DAILY BLOOD PRESSURE 03/07/22 [History Last Taken 02/03/23] multivitamin 1 tab PO DAILY supplement 03/07/22 [History Last Taken 02/03/23] thiamine HCl (vitamin B1) 100 mg tablet 100 mg PO DAILYCM supplement 03/07/22 [History Last Taken 02/03/23] furosemide 40 mg tablet 40 mg PO BID FLUID 08/11/22 [History Last Taken 02/03/23] atorvastatin 80 mg tablet 80 mg PO DAILY CHOLESTEROL #30 tabs 10/14/22 [Rx Last Taken 02/03/23] aspirin 81 mg tablet,delayed release (Adult Low Dose Aspirin) 81 mg PO DAILY HEALTH MAINTENANCE 01/21/23 [History Last Taken 02/03/23] divalproex 250 mg tablet,extended release 24 hr (Depakote ER) 500 mg PO [facility] mental health 01/21/23 [History Last Taken 02/02/23] fluticasone propionate 50 mcg/actuation nasal spray,suspension 2 spray intranasal DAILY SINUS 01/21/23 [History Last Taken 02/03/23] guaifenesin 400 mg tablet 400 mg PO TID COUGH 01/21/23 [History Last Taken 02/03/23] lactulose 10 gram/15 mL oral solution 30 g PO BID PRN constipation 01/21/23 [History Last Taken Unknown] loratadine 10 mg tablet 10 mg PO DAILY ALLERGIES 01/21/23 [History Last Taken 02/03/23] olanzapine 15 mg tablet (Zyprexa) 15 mg PO Q Mental disorder 01/21/23 [History Last Taken 02/02/23] potassium chloride 20 mEq tablet,extended release 20 meq PO BID SUPPLEMENT #60 tabs 01/26/23 [Rx Last Taken 02/03/23] albuterol sulfate 90 mcg/actuation aerosol inhaler 1 - 2 puff inhalation 4X/DAY PRN Sob &/Or Wheezing 02/03/23 [History Last Taken Unknown] sodium chloride 1,000 mg soluble tablet 1,000 mg PO TID SUPPLEMENT 02/03/23 [History Last Taken 02/03/23] hydrocodone-acetaminophen 5-325mg 5mg-325mg 1 tab PO Q8H PAIN 1 day #3 tabs 02/05/23 [Rx Last Taken Unknown] linezolid 600 mg tablet (Zyvox) 600 mg PO Q12H 14 days #28 tabs 02/05/23 [Rx Last Taken Unknown] acetaminophen 500 mg capsule 500 mg PO Q6H PRN fever 05/12/23 [History Last Taken Unknown] ascorbic acid (vitamin C) 500 mg capsule,extended release 500 mg PO DAILY 05/12/23 [History Last Taken Unknown] nystatin 100,000 unit/gram topical powder (Nyamyc) 1 applic topical .Q12 PRN EXCORIATION 05/12/23 [History Last Taken Unknown] Allergy/AdvReac Type Severity Reaction Status Date / Time venom-honey bee Allergy Severe Anaphylaxis Verified 05/12/23 10:46 [bee venom (honey bee)] Family History Father Prostate cancer Mother Lung cancer Surgical History History of heart artery stent History of heart artery stent History of hernia repair History of right hip replacement Social History housing: [facility] Smoking Status: Current some day smoker tobacco type: cigarettes Tobacco: How many years used: 60 second hand exposure: No quit status: has quit before alcohol intake: current alcohol intake frequency: 0-2 drinks per day Alcohol type: beer details: 2 beers every evening substance use type: does not use caffeine: Yes Type: coffee Number of servings: 2 luis/presybeterian: None seatbelt use: always do you feel safe at home: Yes ROS Constitutional Constitutional: Reports fatigue, malaise and weakness; Denies anorexia, change in weight, chills, fever(s), night sweats or other Eyes Eyes: Denies blurry vision, change in eye color, change in vision, discharge from eye(s), double vision, erythema, eye pain, loss of vision or other ENT HEENT: Denies abnormal hearing, dysphagia, ear pain, epistaxis, headache(s), hearing loss, nasal congestion, nasal discharge, post nasal drip, sinus pressure, sore throat or other Cardiovascular Cardiovascular: Reports dyspnea on exertion; Denies chest pain, claudication, edema, lightheadedness, orthopnea, palpitations, paroxysmal nocturnal dyspnea, rapid heart rate, syncope or other Respiratory/Chest Respiratory/Chest: Reports cough, dyspnea, excessive phlegm production, shortness of breath at rest, shortness of breath with exertion and wheezing Gastrointestinal Gastrointestinal: Denies abdominal pain, coffee ground emesis, constipation, diarrhea, dyspepsia, hematemesis, hematochezia, loose stools, melena, nausea, vomiting or other Genitourinary Genitourinary: Denies burning urination, difficulty urinating, dysuria, hematuria, nocturia, urinary frequency, urinary hesitancy, urinary incontinence, urinary urgency or other Musculoskeletal Musculoskeletal: Reports back pain, joint pain and joint stiffness; Denies arthralgias, joint swelling, myalgias, neck pain or other Neurologic Neurologic: Denies abnormal gait, abnormal speech, confusion, disequilibrium, dizziness, focal weakness, headache(s), numbness, paresthesias, seizure-like activity, seizures, syncope, tingling, tremor(s) or other Psychiatric Psychiatric: Denies anxiety, depression, homicidal ideation, suicidal ideation or other Endocrine Endocrinology: Denies change in body appearance, cold intolerance, excessive sweating, heat intolerance, polydipsia, polyuria or other Hematologic/Lymphatic Hematologic/Lymphatic: Denies anemia, easy bleeding, easy bruising, lymphadenopathy or other Allergic/Immunologic Allergic/Immunologic: Denies rhinitis, hives, eczemia, asthma or other Vital Signs Vital Signs Vital Signs: 05/12/23 09:45 05/12/23 10:40 05/12/23 10:40 Temperature 96.8 F L Temperature Source Oral Oral Pulse Rate 45 L Respiratory Rate 16 Respiratory Effort Short of Breath Blood Pressure 134/52 H Blood Pressure Mean 79 Pulse Ox 98 Oxygen Delivery Method Room Air Oxygen Flow Rate (L/min) 05/12/23 11:35 Temperature 97.4 F L Temperature Source Temporal Pulse Rate 53 L Respiratory Rate 23 H Respiratory Effort Blood Pressure 158/60 H Blood Pressure Mean 92 Pulse Ox 95 Oxygen Delivery Method Nasal Cannula Oxygen Flow Rate (L/min) 2 Weight Weight: 96 kg Body Mass Index (BMI) 28.7 Physical Exam Const alert, oriented x3, no apparent distress and well nourished; Negative for healthy appearing Constitutional Narrative: Overweight, older white male lying in bed, appears comfortable, appears older than stated age and chronically ill, nontoxic-appearing General Appearance: cooperative HEENT normocephalic, head/scalp atraumatic and moist oral mucous membranes HEENT Narrative: Mallampati 2, no thrush, edentulous, moderate Eyes PERRL and EOMs intact bilaterally Eyes Narrative: Conjunctival pallor bilaterally, no scleral icterus Neck no lymphadenopathy and supple Neck Narrative: Trachea midline, no thyroid enlargement Resp No normal respiratory effort, no retractions, no use of accessory muscles and No clear to auscultation bilaterally Resp Narrative: Mild tachypnea, no signs of respiratory distress, diffuse inspiratory and expiratory scattered wheeze with no rales or rhonchi Auscultation: wheezes; Negative for rales or rhonchi Cardio regular rhythm, S1 normal heart sound, S2 normal heart sound, no murmurs, no rub, no gallops and no clicks Cardio Narrative: Mild bradycardia GI normal to inspection, nondistended, normoactive bowel sounds, soft to palpation, non-tender and non-distended Extremity no clubbing, cyanosis or edema Extremity Narrative: Bilateral lower extremity Ezra bandages in place-removed and no significant wounds or edema however patient has significantly dark dry skin, skin changes consistent with chronic venous stasis Skin no rashes or lesions noted, no wounds, skin turgor normal, no jaundice, no petechiae and no mottling Skin Narrative: No significant wounds identified Neuro oriented x3, CN's II-XII intact bilaterally, moves all extremities and no focal motor deficits Neuro Narrative: Generalized weakness noted but no focal deficit its Speech: speech normal Psych affect normal Psych Narrative: Eye contact is good, patient is pleasant Results Lab / Micro Data 05/12/23 10:44 05/12/23 10:44 Labs: Laboratory Results - last 24 hr 05/12/23 10:44: WBC 8.9, RBC 2.50 L, Hgb 8.0 L, Hct 25.3 L, MCV 101.2 H, MCH 32.0, MCHC 31.6 L, RDW Std Deviation 55.3 H, RDW Coeff of Fredi 15.1 H, Plt Count 452 H, MPV 9.3, Immature Gran % (Auto) 0.700, Neut % (Auto) 77.5 H, Lymph % (Auto) 8.8 L, [facility] % (Auto) 11.7 H, Eos % (Auto) 0.9, Baso % (Auto) 0.4, Absolute Neuts (auto) 6.9, Absolute Lymphs (auto) 0.78 L, Nucleated RBC % 0, Sodium 133 L, Potassium 4.5, Chloride 96 L, Carbon Dioxide 33.0 H, Anion Gap 4 L, BUN 12, Creatinine 0.51 L, Estim Creat Clear Calc 70.06, Est GFR (MDRD) Af Amer 202, Est GFR (MDRD) Non-Af 167, BUN/Creatinine Ratio 23.3 H, Glucose 115 H, Lactic Acid 0.7, Calcium 8.6, Troponin I High Sens 46, B-Natriuretic Peptide 481.0 H 05/12/23 11:29: Urine Color Yellow, Urine Clarity Clear, Urine pH 6.0, Ur Specific [place] 1.010, Urine Protein Negative, Urine Glucose (UA) Normal, Urine Ketones Negative, Urine Occult Blood Negative, Urine Nitrite Negative, Urine Bilirubin Negative, Urine Urobilinogen 4 H, Ur Leukocyte Esterase Negative, Urine RBC 0 SEEN, Urine WBC 0 SEEN, Ur Squamous Epith Cells 0 SEEN, Urine Bacteria 0 SEEN, Urine Mucus 0 SEEN Micro: Microbiology 05/12/23 11:01 Nasal Secretion SARS-CoV-2 & FLU Antigen (Rapid) - Final Radiology Impression Chest X-Ray 05/12/23 10:11 IMPRESSION: Findings compatible with worsening interstitial edema/congestive failure. Follow-up chest imaging to resolution recommended. Electronically Signed: Deshawn Pual MD at 11:18 EDT , Assessment & Plan Assessment/Plan (1) Hypoxia: (2) SOB (shortness of breath): (3) Fatigue: (4) Acute on chronic anemia: (5) Thrombocytosis: PLAN: Plan Acute on chronic decompensated heart failure with preserved ejection fraction -BNP is up -Chest x-ray appears to be fluid overloaded -Lasix 40 mg IV push twice daily -Fluid restriction -Daily weights -Hold on sodium restriction as patient is dependent on sodium supplementation to maintain his sodium levels -We will check echocardiogram -Monitor on telemetry as patient does have some bradycardia which does not appear to be new when compared to previous monitoring Shortness of breath/fatigue -May be related to heart failure but also could be related to acute anemia or bradycardia -Check echocardiogram -Supplemental oxygen as needed and wean as able -We will check blood cultures to rule out infection however hold on empiric antibiotics -Ferritin is up and patient does have thrombocytosis both of which are acute phase reactants however patient is not giving me a clinical history of an infectious process -Check respiratory viral panel -PT/OT consultation Acute on chronic anemia -Baseline hemoglobin appears to run between 10 and 12 -Hemoglobin on presentation was 8 -Guaiac stool was pending -We will hold chemoprophylaxis for DVT prophylaxis until we can clarify if there is any acute blood loss -Check iron studies Chronic hyponatremia -Patient sodium is stable and currently as high as I have ever seen it -Sodium on admission 133 -IV Lasix -Continue home salt tablets -Fluid restriction -Continue to monitor BMP Recent L1 and 2 compression fractures -Consult PT/OT History of COPD -As needed aerosols -Continue home guaifenesin -Is not on oxygen at baseline -Continue Pulmicort History of adenocarcinoma of the lung -Patient has had adenocarcinoma of bilateral lungs -Has had a previous recent favorable PET scan -Follows at the [facility] -Clinically stable PAF -Patient is in A-fib but rate controlled on presentation -No anticoagulation due to alcohol use and frequent falls CAD/HPL/HTN -Continue home atorvastatin -hold home Lasix and use IV -Continue home losartan -We will hold home potassium supplementation and monitor Pulmonary hypertension -Suspect secondary to lung disease with who group 3 -Continue Lasix but will use IV Acute on chronic debility -PT/OT consultation -Patient will likely require skilled placement at discharge and is willing to be placed short-term BPH -Continue Flomax GERD -Continue PPI Seasonal allergies -Continue home loratadine Chronic constipation -Continue home lactulose -Continue home Dulcolax Chronic alcohol use -Patient drinks approximately 2-4 beers daily -Extensive discussion with the patient with regards to his alcohol use and that he needs to markedly limit this at home with abstinence being the best. Patient has indicated previously and at this admission he has no intention on quitting drinking alcohol Tobacco abuse -Patient states he is smoking about 6 cigarettes a day as that is all they will let him -Nicotine patch -Recommend cessation Bipolar disorder -Stable -Continue home psychiatric medications DVT prophylaxis -SCDs and hold chemoprophylaxis until can r/o GI Bleed CODE STATUS -Full code Charges/Coding Visit Charges Inpatient E&M: 32714 Init Hosp L3
--- NOTE | 2023-05-12 13:22 | ECHOD_ITS ---
Reason For Study: CHF Procedure This was a 2D Doppler, Color Flow transthoracic echocardiogram. The study was technically difficult. Definity deferred by patient. Exam performed portable in ICU/CCU. Left Ventricle Normal LV size. Mild concentric left ventricular hypertrophy. The left ventricular ejection fraction is 60 %. Stage 3 diastolic dysfunction. Right Ventricle Moderately dilated right ventricle. Moderate global right ventricular systolic dysfunction. Atria There is severe biatrial dilatation. Mitral Valve Mild (1+) mitral valve insufficiency. Tricuspid Valve Mild to moderate (1-2+) eccentric tricuspid valve insufficiency. Right ventricular systolic pressure estimated to be 92 mmHg. Aortic Valve Moderate diffuse aortic valve calcification. Mild aortic stenosis. Pulmonic Valve The pulmonic valve is not well visualized. Great Vessels Normal sized aortic root. Pericardium/Pleural No pericardial effusion. MMode/2D Measurements & Calculations LVIDd: 5.7 cm IVSd: 1.5 cm LVOT diam: 2.2 cm LVIDs: 3.1 cm LVPWd: 1.3 cm LVOT area: 3.9 cm2 RVDd: 5.8 cm FS: 45.3 % Ao root diam: 3.6 cm LAV(MOD-sp4): 88.4 ml LVAd ap4: 26.9 cm2 LVLd ap4: 7.8 cm EDV(MOD-sp4): 77.8 ml EDV(sp4-el): 79.2 ml LVAs ap4: 16.6 cm2 LVLs ap4: 6.9 cm ESV(MOD-sp4): 33.5 ml ESV(sp4-el): 33.7 ml EF(MOD-sp4): 57.0 % EF(sp4-el): 57.5 % SV(MOD-sp4): 44.3 ml SV(sp4-el): 45.5 ml LA A4 area: 27.4 cm2 LA dimension(2D): 5.1 cm RA A4 area: 34.9 cm2 TAPSE: 3.0 cm Time Measurements MV dec time: 0.18 sec Doppler Measurements & Calculations MV E max javier: 121.8 cm/sec Lat Peak E' Javier: 16.0 cm/sec Med Peak E' Javier: 6.2 cm/sec MV A max javier: 49.0 cm/sec E/E' lat: 7.6 E/E' med: 19.7 MV E/A: 2.5 MV V2 max: 161.3 cm/sec Ao V2 max: 261.7 cm/sec MV max P.4 mmHg MV dec slope: 690.2 cm/sec2 Ao max P.4 mmHg MV V2 mean: 63.4 cm/sec Ao V2 mean: 189.2 cm/sec MV mean P.3 mmHg Ao mean P.4 mmHg MV V2 VTI: 48.7 cm Ao V2 VTI: 58.3 cm AV (velocity ratio): 0.53 MVA(VTI): 2.5 cm2 MIKE(I,D): 2.1 cm2 MIKE(V,D): 1.9 cm2 LV V1 max: 126.5 cm/sec SV(LVOT): 121.5 ml PA V2 max: 130.4 cm/sec LV V1 max P.4 mmHg PA V2 mean: 77.5 cm/sec LV V1 mean P.2 mmHg LV V1 mean: 82.5 cm/sec LV V1 VTI: 30.9 cm TR max javier: 439.6 cm/sec TR max P.3 mmHg ECHO/Echo Complete Interpretation Summary Mild concentric left ventricular hypertrophy. The left ventricular ejection fraction is 60 %. Stage 3 diastolic dysfunction. Moderately dilated right ventricle. Moderate global right ventricular systolic dysfunction. Mild (1+) mitral valve insufficiency. Mild to moderate (1-2+) eccentric tricuspid valve insufficiency. Right ventricular systolic pressure estimated to be 92 mmHg. Severe pulmonary h ypertension. Mild aortic stenosis. Ordering Physician: Danisha Harvey Referring Physician: Ronak Pollard Performed By: Vita Sutherland RCS
--- NOTE | 2023-05-12 13:33 | NURSING ---
MED SURG TJ WEAKNESS, ANEMIA, CHF
[2023-05-12 14:04] LABS: Ferritin 479 ng/mL (26-388); Iron 17 ug/dL (65-175); Iron Binding Capacity,Total 239 ug/dL (250-450); PERCENT IRON SATURATION 7.1 % (15.0-55.0)
--- NOTE | 2023-05-12 14:06 | CM.ED ---
Social Work Patient is awaiting a bed for [facility]. SW introduced self and role to patient. Pt reports he has been living at [place]. Pt confirmed his plan is to return to [place] upon hospital discharge. Ines Cheema GEOSPATIAL ANALYST, DERRICK BOAT OPERATOR
--- NOTE | 2023-05-12 14:22 | ED.RN ---
CALLED [facility], SPOKE WITH [facility] ON ADMISSION OF PATIENT.
[2023-05-12] MEDS: Furosemide 100 MG/10 ML Vial 60 MG IV (17:13)
[2023-05-12] MEDS: 0.9% Saline Lock 10 ML Syringe IV (17:14)
[2023-05-12 18:03] LABS: Troponin-I HS 43 pg/mL (3.0-78.0)
[2023-05-12] MEDS: Budesonide Respules 0.5 MG/2 ML AMPUL.NEB. INHALATION (19:12)
[2023-05-12 19:13] LABS: Troponin-I HS 46 pg/mL (3.0-78.0)
[2023-05-12] MEDS: MELATONIN 3 MG TABLET PO (20:09)
[2023-05-12] MEDS: HYDROcodone Bitartrate/Apap 5/325 Tablet PO (20:09)
[2023-05-12] MEDS: Divalproex (ER) 500 MG Tablet PO (20:10)
[2023-05-12] MEDS: Acetaminophen 325 MG Tablet 650 MG PO (20:10)
[2023-05-12] MEDS: guaiFENesin 600 MG Tablet PO (20:11)
[2023-05-12] MEDS: Sodium Chloride 1 GM Tablet PO (20:11)
[2023-05-12] MEDS: Tamsulosin HCl 0.4 MG Capsule 0.8 MG PO (20:11)
[2023-05-12] MEDS: Finasteride 5 MG Tablet PO (20:12)
[2023-05-12] MEDS: OLANZapine 5 MG/TAB TAB.RAPDIS 15 MG PO (20:13)
[2023-05-12 23:55] LABS: Troponin-I HS 46 pg/mL (3.0-78.0)
[2023-05-13] VITALS (12 sets, daily range): BP systolic 121–159; BP diastolic 46–120; PULSE 50–93; RESP 12–32; TEMP 36.4–39.3; O2SAT 90–97; BMI 26.9
--- NOTE | 2023-05-13 00:05 | EKG12_ITS ---
Test Reason : Blood Pressure : / mmHG Vent. Rate : 044 BPM Atrial Rate : 000 BPM P-R Int : 000 ms QRS Dur : 096 ms QT Int : 542 ms P-R-T Axes : 000 -23 029 degrees QTc Int : 463 ms Junctional bradycardia Nonspecific T wave abnormality Prolonged QT Abnormal ECG Confirmed by JUANI RUBIN, JAY ([id number]), video effects editor SAMMI VILLAFUERTE ([id number]) on 05/19/2023 10:15:41 AM Referred By: Confirmed By:JAY GLORIA MD
[2023-05-13] MEDS: Sodium Chloride 1 GM Tablet PO ×3 (05:12→22:06)
[2023-05-13] MEDS: HYDROcodone Bitartrate/Apap 5/325 Tablet PO ×3 (05:13→22:06)
[2023-05-13 06:20] LABS: Absolute Lymphocyte Count 1.08 X10^3/uL (0.83-4.51); Absolute Neutrophil Count 7.3 X10^3/uL (2.0-7.7); Basophil# 0.03 X10^3/uL; Basophil% 0.3 % (0-1); Eosinophil# 0.13 X10^3/uL; Eosinophils% 1.3 % (0-5); Hematocrit 26.3 % (40-54); Hemoglobin 8.3 g/dL (13.0-16.5); Lymphocyte # 1.08 X10^3/ul (0.83-4.51); Lymphocyte % 11.1 % (19-41); Mean Corp Hgb Conc 31.6 g/dL (32-36); Mean Corpuscular Hgb 31.7 pg (27.0-32.0); Mean Corpuscular Volume 100.4 fL (80-94); Mean Platelet Vol. 9.5 fl (6.2-12.0); Monocyte# 1.11 X10^3/uL; Monocyte% 11.4 % (0-10); NRBC Flagged by Analyzer 0 % (0-5); Neutrophil # 7.31 X10^3/uL (2.7-7.7); Neutrophil % 75.4 % (47-70); Platelet Count 501 K/mm3 (150-450); RBC Distribution Width SD 54.4 fl (35.1-43.9); Red Blood Count 2.62 M/mm3 (4.6-6.2); White Blood Count 9.7 K/mm3 (4.4-11.0)
[2023-05-13 06:50] LABS: ALB/GLOB Ratio 0.4 RATIO (0.9-2.4); AST(SGOT) 34 U/L (15-37); Alanine Aminotransfer ALT/SGPT 33 U/L (16-61); Albumin, Serum 2.1 g/dL (3.2-5.0); Alkaline Phosphatase 284 U/L (45-117); Anion Gap 6 (5-15); BUN 14 mg/dL (7-18); BUN/Creat Ratio 29.1 RATIO (10-20); Calcium,Total 8.7 mg/dL (8.5-10.1); Chloride 95 mmol/L (98-107); Creatinine, Serum 0.48 mg/dL (0.70-1.30); EST Glomerular Filtration Rate 180 mL/min (>60); Est Glom Filt Rate - Afr Amer 218 mL/min (>60); Estimated Creatinine Clearance 70.06 ml/min; Globulin 4.8 g/dL (2.2-4.2); Glucose 109 mg/dL (74-106); Magnesium 1.9 mg/dL (1.6-2.6); Phosphorus 4.1 mg/dL (2.5-4.9); Potassium 4.2 mmol/L (3.5-5.1); Protein, Total 6.9 g/dL (6.4-8.2); Sodium Level 134 mmol/L (136-145)
--- NOTE | 2023-05-13 07:35 | PCM.PN.HOSP ---
Subjective Subjective Doing well, no issues overnight breathing a little bit easier Objective Data Objective Data Vital Signs: Vital Signs Temp Pulse Resp BP Pulse Ox O2 Del Method O2 Flow Rate 98.1 F 55 L 16 140/62 H 97 Nasal Cannula 2 05/13/23 05:00 05/13/23 05:00 05/13/23 05:00 05/13/23 05:00 05/13/23 05:00 05/13/23 05:00 05/13/23 05:00 Oxygen Flow Rate (L/min) 2 Oxygen Delivery Method Nasal Cannula Weight: 198 lb 13.711 oz Body Mass Index (BMI) 26.9 Intake & Output: Intake and Output for Last 24 Hours 05/12/23 05/13/23 05/14/23 03:59 03:59 03:59 Intake Total 1000.0 / 1000.0 200 / 200 Output Total 400 / 400 800 / 800 Balance 600.0 / 600.0 -600 / -600 Lab / Micro Data 05/13/23 05:34 05/13/23 05:34 Labs: Laboratory Results - last 24 hr 05/12/23 10:44: WBC 8.9, RBC 2.50 L, Hgb 8.0 L, Hct 25.3 L, MCV 101.2 H, MCH 32.0, MCHC 31.6 L, RDW Std Deviation 55.3 H, RDW Coeff of Fredi 15.1 H, Plt Count 452 H, MPV 9.3, Immature Gran % (Auto) 0.700, Neut % (Auto) 77.5 H, Lymph % (Auto) 8.8 L, [place] % (Auto) 11.7 H, Eos % (Auto) 0.9, Baso % (Auto) 0.4, Absolute Neuts (auto) 6.9, Absolute Lymphs (auto) 0.78 L, Nucleated RBC % 0, Sodium 133 L, Potassium 4.5, Chloride 96 L, Carbon Dioxide 33.0 H, Anion Gap 4 L, BUN 12, Creatinine 0.51 L, Estim Creat Clear Calc 70.06, Est GFR (MDRD) Af Amer 202, Est GFR (MDRD) Non-Af 167, BUN/Creatinine Ratio 23.3 H, Glucose 115 H, Lactic Acid 0.7, Calcium 8.6, Iron 17 L, TIBC 239 L, Iron Saturation 7.1 L, Ferritin 479 H, Troponin I High Sens 46, B-Natriuretic Peptide 481.0 H 05/12/23 11:29: Urine Color Yellow, Urine Clarity Clear, Urine pH 6.0, Ur Specific [place] 1.010, Urine Protein Negative, Urine Glucose (UA) Normal, Urine Ketones Negative, Urine Occult Blood Negative, Urine Nitrite Negative, Urine Bilirubin Negative, Urine Urobilinogen 4 H, Ur Leukocyte Esterase Negative, Urine RBC 0 SEEN, Urine WBC 0 SEEN, Ur Squamous Epith Cells 0 SEEN, Urine Bacteria 0 SEEN, Urine Mucus 0 SEEN 05/12/23 17:04: Troponin I High Sens 43 05/12/23 18:51: Troponin I High Sens 46 05/12/23 23:17: Troponin I High Sens 46 05/13/23 05:34: WBC 9.7, RBC 2.62 L, Hgb 8.3 L, Hct 26.3 L, MCV 100.4 H, MCH 31.7, MCHC 31.6 L, RDW Std Deviation 54.4 H, RDW Coeff of Fredi 15.0 H, Plt Count 501 H, MPV 9.5, Immature Gran % (Auto) 0.500, Neut % (Auto) 75.4 H, Lymph % (Auto) 11.1 L, [place] % (Auto) 11.4 H, Eos % (Auto) 1.3, Baso % (Auto) 0.3, Absolute Neuts (auto) 7.3, Absolute Lymphs (auto) 1.08, Nucleated RBC % 0, Sodium 134 L, Potassium 4.2, Chloride 95 L, Carbon Dioxide 33.0 H, Anion Gap 6, BUN 14, Creatinine 0.48 L, Estim Creat Clear Calc 70.06, Est GFR (MDRD) Af Amer 218, Est GFR (MDRD) Non-Af 180, BUN/Creatinine Ratio 29.1 H, Glucose 109 H, Calcium 8.7, Phosphorus 4.1, Magnesium 1.9, Total Bilirubin 0.70, AST 34, ALT 33, Alkaline Phosphatase 284 H, Total Protein 6.9, Albumin 2.1 L, Globulin 4.8 H, Albumin/Globulin Ratio 0.4 L Micro: Microbiology 05/12/23 17:25 Mucosa - Nose Respiratory Panel (PCR) - Final 05/12/23 13:20 Stool Stool Occult Blood (NICOLETTE) - Final 05/12/23 11:01 Nasal Secretion SARS-CoV-2 & FLU Antigen (Rapid) - Final Radiography Diagnostic Testing: Radiology Impression Chest X-Ray 05/12/23 10:11 IMPRESSION: Findings compatible with worsening interstitial edema/congestive failure. Follow-up chest imaging to resolution recommended. Electronically Signed: Deshawn Paul MD at 11:18 EDT , Echocardiogram 05/12/23 13:22 Interpretation Summary Mild concentric left ventricular hypertrophy. The left ventricular ejection fraction is 60 %. Stage 3 diastolic dysfunction. Moderately dilated right ventricle. Moderate global right ventricular systolic dysfunction. Mild (1+) mitral valve insufficiency. Mild to moderate (1-2+) eccentric tricuspid valve insufficiency. Right ventricular systolic pressure estimated to be 92 mmHg. Severe pulmonary hypertension. Mild aortic stenosis. Ordering Physician: Danisha Harvey Referring Physician: Ronak Pollard Performed By: Vita Sutherland RCS Physical Exam Narrative General: Alert, Oriented x3, Cooperative, No apparent distress HEENT: Atraumatic, PERRLA, EOMI, Normocephalic Oral: Moist Mucosa Neck: Supple, No JVD Lungs: Diminished, Normal air movement, No rhonchi, No wheeze, No rales Cardiovascular: Regular rate, Regular Rhythm, Normal S1, Normal S2, No murmurs Abdomen: Soft, Non Tender, Non-Distended, No Hepato-splenomegaly Extremities: No edema, Capillary Refill Less than 3 Seconds Skin: No rashes, No breakdown, lower extremity chronic venous stasis changes Musculoskeletal: No Tenderness to Palpation of Joints or Extremities Neurological: Cranial nerves II-XII grossly intact, Motor Exam 5/5 strength throughout, Sensory exam intact to light touch and pain Psych/Mental Status: Flat Assessment & Plan Assessment/Plan (1) Hypoxia: (2) SOB (shortness of breath): (3) Fatigue: (4) Acute on chronic anemia: (5) Thrombocytosis: PLAN: Plan 1. Shortness of breath secondary to acute on chronic diastolic heart failure/paroxysmal A-fib/CAD/HTN/age of the/pulmonary hypertension ? His BNP is elevated continue with IV Lasix ? Daily weight fluid restriction ? Echo is pending ? Respiratory panel and COVID and flu panel are obtained secondary to shortness of breath all of these were negative so far ? He is on rate control for his A-fib however not on any anticoagulation secondary to his use and history of frequent falls ? We will continue with some of his home blood pressure medications and make adjustments if necessary ? Continue with his Lipitor 2. Tobacco abuse/history of COPD/history of adenocarcinoma of the lung ? Does not appear to be currently in exacerbation ? Continue with his home inhalers ? He had bilateral adenocarcinoma and recently had a PET scan that was unremarkable he follows with [facility] ? Discussed cessation, continue patch 3. Acute on chronic anemia ? Unclear etiology ? Stool occult is negative for blood ? Iron studies demonstrate a low iron concentration as well as a low TIBC and a low iron saturation with an elevated ferritin 479 4. Acute on chronic debility with recent compression fractures ? Continue with PT/OT ? May need skilled placement on discharge 5. BPH ? Continue with Flomax ? Stable 6. GERD ? Stable ? Continue PPI 7. Chronic alcohol use/bipolar disorder ? Drinks about 2-4 beers daily ? We will monitor closely for signs of withdrawal ? Continue with his home psychiatric medications DVT: SCDs Charges/Coding Visit Charges Inpatient E&M: 77305 Subs Hosp L2
[2023-05-13] MEDS: Budesonide Respules 0.5 MG/2 ML AMPUL.NEB. INHALATION ×2 (07:40→21:47)
--- NOTE | 2023-05-13 09:02 | CASEMGMT ---
Discharge Planning Updates sent to [facility] ([facility]). Asked if precert is needed to return. Awaiting response. Radha Means, Discharge Planning Asst.
--- NOTE | 2023-05-13 10:43 | CASEMGMT ---
Discharge Planning Patient will need precert to return. SW updated. Radha Means, Discharg Planning Asst.
[2023-05-13] MEDS: Fluticasone 0.05% 1 SPRAY NASAL.SRY 2 SPRAY NASAL (10:55)
[2023-05-13] MEDS: Pantoprazole Sodium 20 MG Tablet PO (10:56)
[2023-05-13] MEDS: guaiFENesin 600 MG Tablet PO ×2 (10:56→22:06)
[2023-05-13] MEDS: Ascorbic Acid 500 MG Tablet PO (10:56)
[2023-05-13] MEDS: Losartan Potassium 50 MG Tablet PO (10:56)
[2023-05-13] MEDS: Atorvastatin Calcium 80 MG Tablet PO (10:56)
[2023-05-13] MEDS: Loratadine 10 MG Tablet PO (10:57)
[2023-05-13] MEDS: Aspirin E.C. 81 MG Tablet PO (10:57)
[2023-05-13] MEDS: Folic Acid 1 MG Tablet PO (10:57)
[2023-05-13] MEDS: Thiamine Hydrochloride 100 MG Tablet PO (10:57)
[2023-05-13] MEDS: Cholecalciferol (VIT D3) 25 MCG TABLET (1,000 UNITS) 50 MCG PO (10:57)
[2023-05-13] MEDS: Furosemide 100 MG/10 ML Vial 60 MG IV ×3 (10:58→22:19)
[2023-05-13] MEDS: Multivitamins,Therapeutic Tablet 1 TABLET PO (11:02)
--- NOTE | 2023-05-13 13:23 | CASEMGMT ---
RN came to [facility] and said patient does not want to go back to [facility]. AMY called patient's sister Luisa and she confirmed she does not want patient to go back to [facility]. Luisa asked about [facility] and AMY told her TCU does not take Medicaid. Patient has been at [facility] so he would be in his co-pay days which is paid by Medicaid. AMY told Luisa AMY will leave a list of facilities in patient's room. Comfort PARNELL
--- NOTE | 2023-05-13 13:54 | CASEMGMT ---
Discharge Planning A list of?SNF providers including quality and resource use data and consistent with the patient's preferred geographic region, medical needs, and insurance network was created in [employer] Guide.? This list was provided to the SW. Radha Means Discharge Planning Asst.
--- NOTE | 2023-05-13 14:09 | CASEMGMT ---
SW met with patient. Introduced self and role at [facility]. Patient confirmed he does not want to go back to [facility]. SW provided patient with a list of?residential facility providers including quality and resource use data and consistent with patient?s preferred geographic region, medical needs, and insurance network were provided from the [employer] Guide. SW let patient know that SW spoke with his sister and they can discuss what facility they would prefer and SW will check on availability. Plan: d/c to new SNF as patient does not want to return to [facility]. Await choices. Comfort PARNELL
--- NOTE | 2023-05-13 15:26 | CHAPLAIN ---
Type of Pastoral Visit _x__ Initial Visit ___ Follow-up Visit ___ On-call Visit ___ General Patient Visit ___ Spiritual Assessment ___ Family Conference ___ Bereavement ___ Rapid Response ___ Code Blue ___ Other (describe below) Pastoral Care Referral From _x__ Patient ___ Family ___ Nurse ___ Physician ___ Fence Installer Foreman ___ Sail Repairer ___ Other (describe below) Sacrament/Intervention _x__ Active listening ___ Anointing ___ Orthodox ___ Bereavement ___ Communion ___ Ruth exploration ___ ___ Life review _x__ Prayer ___ Reconciliation ___ Sacrament of Sick _x__ Supportive presence ___ Wedding ___ Other (describe below) Pastoral Comments patient expresses his desire for prayer and support as he faces health issues; pt lives with his sister who has cancer; pt goal is to go to a SNF that is different from the one he went to before; pt requests help for bed comfort and an aide is called; PRACTICING MD ANESTHESIOLOGIST comes to give assistance
[2023-05-13] MEDS: Acetaminophen 325 MG Tablet 650 MG PO ×2 (17:07→23:17)
[2023-05-13] MEDS: Albuterol 2.5 MG/3 ML VIAL.NEB. INHALATION (21:47)
[2023-05-13] MEDS: OLANZapine 5 MG/TAB TAB.RAPDIS 15 MG PO (22:06)
[2023-05-13] MEDS: Tamsulosin HCl 0.4 MG Capsule 0.8 MG PO (22:06)
[2023-05-13] MEDS: Finasteride 5 MG Tablet PO (22:07)
[2023-05-13] MEDS: Divalproex (ER) 500 MG Tablet PO (22:08)
--- NOTE | 2023-05-13 22:23 | RAD_ITS ---
STUDY: X-RAY CHEST REASON FOR EXAM: Male, 73 years old. sob TECHNIQUE: Single AP portable view of the chest. COMPARISON: 05/12/2023 FINDINGS: Increase in the patchy alveolar opacities in both lungs consistent with worsening bilateral pneumonia. Small right pleural effusion. There is moderate cardiac enlargement. Normal mediastinum and sofía. Normal visualized pulmonary arteries. Normal visualized aortic arch and descending thoracic aorta. Normal visualized thoracic spine. Normal visualized ribs, clavicles, and shoulders. There is no demonstrated abnormality of the visualized soft tissue structures of the upper abdomen. RAD/Chest 1 View (Portable) IMPRESSION: Worsening bilateral pneumonia with a small right pleural effusion. Cardiomegaly. Electronically Signed: Petr Black MD at 22:40 EDT ,
[2023-05-13] MEDS: 0.9% Saline Lock 10 ML Syringe IV (22:25)
[2023-05-13 22:27] LABS: Allen Test Positive; Base Excess 10 mmol/L (-2 to +2); Bicarbonate 33.4 mmol/L (22-26); Blood Gas Specimen Type ART; Mode Not entered; O2 Delivery Device Cannula; PO2 71 mmHG (75-100); SITE L Radial; SO2 95 % (95-99); Total Carbon Dioxide 35 mmol/L; pCO2 47.3 mmHg (35-45); pH 7.46 (7.35-7.45)
[2023-05-13 23:16] LABS: Absolute Lymphocyte Count 0.57 X10^3/uL (0.83-4.51); Absolute Neutrophil Count 18.3 X10^3/uL (2.0-7.7); Basophil# 0.06 X10^3/uL; Basophil% 0.3 % (0-1); Eosinophil# 0.04 X10^3/uL; Eosinophils% 0.2 % (0-5); Hematocrit 30.7 % (40-54); Hemoglobin 9.6 g/dL (13.0-16.5); Lymphocyte # 0.57 X10^3/ul (0.83-4.51); Lymphocyte % 2.8 % (19-41); Mean Corp Hgb Conc 31.3 g/dL (32-36); Mean Corpuscular Hgb 31.7 pg (27.0-32.0); Mean Corpuscular Volume 101.3 fL (80-94); Mean Platelet Vol. 8.9 fl (6.2-12.0); Monocyte# 1.36 X10^3/uL; Monocyte% 6.6 % (0-10); NRBC Flagged by Analyzer 0 % (0-5); Neutrophil # 18.32 X10^3/uL (2.7-7.7); Neutrophil % 89.4 % (47-70); POSITIVE DIFFERENTIAL YES; Platelet Count 581 K/mm3 (150-450); RBC Distribution Width CV 15.3 % (11.6-14.6); RBC Distribution Width SD 56.8 fl (35.1-43.9); Red Blood Count 3.03 M/mm3 (4.6-6.2); White Blood Count 20.5 K/mm3 (4.4-11.0)
[2023-05-13 23:20] LABS: Differential Indicated SCAN CRITERIA MET
[2023-05-13 23:30] LABS: Anion Gap 5 (5-15); BUN 15 mg/dL (7-18); BUN/Creat Ratio 23.5 RATIO (10-20); Calcium,Total 9.1 mg/dL (8.5-10.1); Chloride 92 mmol/L (98-107); Creatinine, Serum 0.64 mg/dL (0.70-1.30); EST Glomerular Filtration Rate 130 mL/min (>60); Est Glom Filt Rate - Afr Amer 157 mL/min (>60); Estimated Creatinine Clearance 70.06 ml/min; Glucose 126 mg/dL (74-106); Potassium 3.9 mmol/L (3.5-5.1); Sodium Level 134 mmol/L (136-145)
--- NOTE | 2023-05-13 23:39 | PCM.PN.BLA ---
Progress Note Sepsis alert Patient with SIRS criteria of tachypnea and leukocytosis. Chest x-ray showed worsening pneumonia. Patient will not be administered IV fluid secondary to patient being currently on admission for CHF. Vancomycin and Zosyn ordered. Lactic acid is pending.
[2023-05-13 23:41] LABS: Anisocytosis 1+; Hypochromasia 1+; Lactic Acid 1.3 mmol/L (0.4-1.9); Macrocytosis 1+; Ovalocyte RARE; Platelet Estimate MKD INC (ADEQ); Red Cell Morphology N CHROM NORMAL (NORM C&C)
[2023-05-13 23:48] LABS: Procalcitonin 0.09 ng/mL (0.00-0.09)
[2023-05-14] VITALS (11 sets, daily range): BP systolic 97–142; BP diastolic 46–56; PULSE 45–89; RESP 16–28; TEMP 36.3–38.2; O2SAT 96–100; BMI 26.7
[2023-05-14] MEDS: Piperacil/Tazobactam 4.5 GM in 0.9% Normal Saline (100mL MB+) 100 ML IV (00:03)
[2023-05-14] MEDS: Vancomycin HCl 2,000 MG in 0.9% Normal Saline (500mL Bag) 500 ML 250 MG IV (00:59)
--- NOTE | 2023-05-14 01:27 | PCM.RX.CS ---
Consult Antibiotic Management Pharmacy has been consulted to manage selected antiobiotic: Vancomycin Type of Intervention Type of Consult: New start Suspected Infection Suspected Infection: Pneumonia Labs Labs: Sodium 134 mmol/L (136-145) L 05/13/23 22:58 Potassium 3.9 mmol/L (3.5-5.1) 05/13/23 22:58 Chloride 92 mmol/L (98-107) L 05/13/23 22:58 Carbon Dioxide 37.0 mmol/L (21.0-32.0) H 05/13/23 22:58 Anion Gap 5 (5-15) 05/13/23 22:58 BUN 15 mg/dL (7-18) 05/13/23 22:58 Creatinine 0.64 mg/dL (0.70-1.30) L 05/13/23 22:58 Est GFR (MDRD) Af Amer 157 mL/min (>60) 05/13/23 22:58 Est GFR (MDRD) Non-Af 130 mL/min (>60) 05/13/23 22:58 BUN/Creatinine Ratio 23.5 RATIO (10-20) H 05/13/23 22:58 Glucose 126 mg/dL (74-106) H 05/13/23 22:58 Microbiology Microbiology: Microbiology 05/13/23 23:00 Nasal Secretion SARS-CoV-2 & FLU Antigen (Rapid) - Final 05/12/23 11:29 Urine, Catheterized Urine Culture - Preliminary Culture exhibits no growth. 05/12/23 17:25 Mucosa - Nose Respiratory Panel (PCR) - Final 05/12/23 13:20 Stool Stool Occult Blood (NICOLETTE) - Final 05/12/23 11:01 Nasal Secretion SARS-CoV-2 & FLU Antigen (Rapid) - Final Dosing Weight Weight used for dosin.2 kg Estimated Creatinine Clearance Estimated Creatinine Clearance: 70 Goal Trough Goal Trough: 15-20 mcg/mL Pharmacy Plan for Drug Dosing Pharmacy Plan for Drug Dosing: Pharmacy Service will continue to monitor and adjust dosing as required. Follow-Up Labs Follow-Up Labs: Trough: Vancomycin Date/Time Labs Ordered Labs to be done on [date and time ordered]: 05/15/23 @1230
[2023-05-14 04:41] LABS: Mucous, Urine 0 SEEN /hpf (<or=2+); Red Blood Cells-Urine 0 SEEN /hpf (0-5); Squamous Epithelial Cells - UA 0 SEEN /hpf (0-5)
[2023-05-14 04:45] LABS: Color, Urine Yellow (Yellow); Glucose, Dipstick Normal (Normal); Ketone-Dipstick Negative (Negative); Leukocyte Esterase-Dipstick 500 /ul (Negative); Nitrite-Dipstick Negative (Negative); Occult Blood-Urine Negative /ul (Negative); Protein-Dipstick Negative (Negative); Urine Bilirubin Dipstick Negative (Negative); Urine Clarity Clear (Clear); Urine Urobilinogen 1 mg/dl (Normal)
[2023-05-14 05:11] LABS: Bacteria 2+ /hpf (None Seen); White Blood Cells 5-10 SEEN /hpf (0-5)
[2023-05-14] MEDS: Piperacil/Tazobactam 3.375 GM in 0.9% Normal Saline (50mL MB+) 50 ML IV (06:05)
[2023-05-14] MEDS: HYDROcodone Bitartrate/Apap 5/325 Tablet PO ×3 (06:21→22:23)
[2023-05-14] MEDS: Sodium Chloride 1 GM Tablet PO ×3 (06:21→22:12)
[2023-05-14 08:01] LABS: Absolute Lymphocyte Count 1.14 X10^3/uL (0.83-4.51); Absolute Neutrophil Count 24.2 X10^3/uL (2.0-7.7); Basophil# 0.05 X10^3/uL; Basophil% 0.2 % (0-1); Eosinophil# 0.01 X10^3/uL; Hematocrit 27.7 % (40-54); Hemoglobin 8.9 g/dL (13.0-16.5); Lymphocyte # 1.14 X10^3/ul (0.83-4.51); Lymphocyte % 4.1 % (19-41); Mean Corp Hgb Conc 32.1 g/dL (32-36); Mean Corpuscular Hgb 32.5 pg (27.0-32.0); Mean Corpuscular Volume 101.1 fL (80-94); Mean Platelet Vol. 9.2 fl (6.2-12.0); Monocyte# 2.51 X10^3/uL; Monocyte% 8.9 % (0-10); NRBC Flagged by Analyzer 0 % (0-5); Neutrophil # 24.15 X10^3/uL (2.7-7.7); POSITIVE DIFFERENTIAL YES; Platelet Count 509 K/mm3 (150-450); RBC Distribution Width CV 15.1 % (11.6-14.6); Red Blood Count 2.74 M/mm3 (4.6-6.2); White Blood Count 28.1 K/mm3 (4.4-11.0)
[2023-05-14 08:27] LABS: Differential Indicated SCAN CRITERIA MET
[2023-05-14 08:29] LABS: Anion Gap 6 (5-15); BUN 15 mg/dL (7-18); BUN/Creat Ratio 26.6 RATIO (10-20); Calcium,Total 8.4 mg/dL (8.5-10.1); Chloride 92 mmol/L (98-107); Creatinine, Serum 0.56 mg/dL (0.70-1.30); EST Glomerular Filtration Rate 150 mL/min (>60); Est Glom Filt Rate - Afr Amer 181 mL/min (>60); Estimated Creatinine Clearance 70.06 ml/min; Glucose 103 mg/dL (74-106); Potassium 3.5 mmol/L (3.5-5.1); Sodium Level 133 mmol/L (136-145)
[2023-05-14 09:19] LABS: Differential Comment SCANNED
[2023-05-14] MEDS: Budesonide Respules 0.5 MG/2 ML AMPUL.NEB. INHALATION ×2 (09:19→20:44)
--- NOTE | 2023-05-14 10:21 | CASEMGMT ---
AMY spoke with patient this am about his senior living choices. Patient said they would like the place in [place]. SW got patient's list and confirmed he wanted [facility]. AMY sent a referral to [facility] through [facility]. Comfort PARNELL
[2023-05-14] MEDS: guaiFENesin 600 MG Tablet PO ×2 (10:44→22:13)
[2023-05-14] MEDS: Folic Acid 1 MG Tablet PO (10:44)
[2023-05-14] MEDS: Pantoprazole Sodium 20 MG Tablet PO (10:44)
[2023-05-14] MEDS: Ascorbic Acid 500 MG Tablet PO (10:44)
[2023-05-14] MEDS: Cholecalciferol (VIT D3) 25 MCG TABLET (1,000 UNITS) 50 MCG PO (10:44)
[2023-05-14] MEDS: Aspirin E.C. 81 MG Tablet PO (10:44)
[2023-05-14] MEDS: Loratadine 10 MG Tablet PO (10:44)
[2023-05-14] MEDS: Atorvastatin Calcium 80 MG Tablet PO (10:45)
[2023-05-14] MEDS: Multivitamins,Therapeutic Tablet 1 TABLET PO (10:45)
[2023-05-14] MEDS: Fluticasone 0.05% 1 SPRAY NASAL.SRY 2 SPRAY NASAL (10:47)
[2023-05-14] MEDS: Thiamine Hydrochloride 100 MG Tablet PO (10:47)
[2023-05-14] MEDS: Petrolatum 33% Tube 1 APPLIC TOPICAL (10:48)
[2023-05-14] MEDS: Ceftriaxone 1 GM/50 ML BAG IV (10:56)
[2023-05-14] MEDS: Furosemide 100 MG/10 ML Vial 60 MG IV ×2 (10:56→16:56)
[2023-05-14] MEDS: 0.9% Saline Lock 10 ML Syringe IV ×2 (10:56→16:56)
[2023-05-14] MEDS: Azithromycin 500 MG in Dextrose 5%-Water (250mL Bag) 250 ML 250 MG IV (11:29)
--- NOTE | 2023-05-14 13:14 | CASEMGMT ---
[facility] is full. SW went to patient's room to obtain another option, however patient was sleeping. SW called patient's sister to obtain a second choice and there was no answer. Comfort PARNELL
--- NOTE | 2023-05-14 14:23 | PCM.PN.HOSP ---
Subjective Subjective Overnight was thought to develop some bacterial pneumonia so he was started on antibiotics which we will continue. Objective Data Objective Data Vital Signs: Vital Signs Temp Pulse Resp BP Pulse Ox O2 Del Method O2 Flow Rate 98 F 72 16 102/56 L 96 Nasal Cannula 2 05/14/23 11:01 05/14/23 11:01 05/14/23 11:01 05/14/23 11:01 05/14/23 11:01 05/14/23 11:01 05/14/23 11:01 FiO2 40 05/13/23 22:20 Oxygen Flow Rate (L/min) 2 Oxygen Delivery Method Nasal Cannula Weight: 197 lb 5.019 oz Body Mass Index (BMI) 26.7 Intake & Output: Intake and Output for Last 24 Hours 05/13/23 05/14/23 05/15/23 03:59 03:59 03:59 Intake Total 1000.0 / 1000.0 1740 / 1740 995 / 995 Output Total 400 / 400 2825 / 2825 850 / 850 Balance 600.0 / 600.0 -1085 / -1085 145 / 145 Medical Nutrition Assessment Dietitian: Malnutrition Criteria Met Start: 05/13/23 14:21 Freq: Status: Active Protocol: Document 05/13/23 14:21 AG (Rec: 05/13/23 14:21 [id number]) Nutrition Malnutrition Evidence of Malnutrition Exists Yes Malnutrition (moderate): Chronic Evidenced By Suboptimal Energy Intake ( Moderate),Weight Loss ( Moderate),Physical Changes ( Mild) Clinical Problem Chronic Disease or Condition Related Malnutrition Etiology moderate, chronic malnutrition related to inadequate energy intake Signs/Symptoms as evidenced by unintentional 23% wt loss x 3 months, estimated PO intake meeting < 75% of estimated energy needs > 3 months, mild muscle wasting/fat loss evident per physical exam in orbital, clavicle, acromion areas Status Active Problem Recommendation Dietitian Recommendations/Changes continue cardiac diet w/ 1750mL fluid restriction as indicated; Leland BID per pt request Lab / Micro Data 05/14/23 06:32 05/14/23 06:32 Labs: Laboratory Results - last 24 hr 05/13/23 22:58: WBC 20.5 H, RBC 3.03 L, Hgb 9.6 L, Hct 30.7 L, MCV 101.3 H, MCH 31.7, MCHC 31.3 L, RDW Std Deviation 56.8 H, RDW Coeff of Fredi 15.3 H, Plt Count 581 H, MPV 8.9, Immature Gran % (Auto) 0.700, Neut % (Auto) 89.4 H, Lymph % (Auto) 2.8 L, [place] % (Auto) 6.6, Eos % (Auto) 0.2, Baso % (Auto) 0.3, Absolute Neuts (auto) 18.3 H, Absolute Lymphs (auto) 0.57 L, Nucleated RBC % 0, Differential Comment SEE COMMENT, Platelet Estimate MKD INC, RBC Morphology N CHROM, Hypochromasia 1+, Anisocytosis 1+, Macrocytosis 1+, Ovalocytes RARE, Sodium 134 L, Potassium 3.9, Chloride 92 L, Carbon Dioxide 37.0 H, Anion Gap 5, BUN 15, Creatinine 0.64 L, Estim Creat Clear Calc 70.06, Est GFR (MDRD) Af Amer 157, Est GFR (MDRD) Non-Af 130, BUN/Creatinine Ratio 23.5 H, Glucose 126 H, Lactic Acid 1.3, Calcium 9.1, Procalcitonin 0.09 05/14/23 04:33: Urine Color Yellow, Urine Clarity Clear, Urine pH 6.0, Ur Specific [place] 1.010, Urine Protein Negative, Urine Glucose (UA) Normal, Urine Ketones Negative, Urine Occult Blood Negative, Urine Nitrite Negative, Urine Bilirubin Negative, Urine Urobilinogen 1 H, Ur Leukocyte Esterase 500 H, Urine RBC 0 SEEN, Urine WBC 5-10 SEEN, Ur Squamous Epith Cells 0 SEEN, Urine Bacteria 2+, Urine Mucus 0 SEEN 05/14/23 06:32: WBC 28.1 H, RBC 2.74 L, Hgb 8.9 L, Hct 27.7 L, MCV 101.1 H, MCH 32.5 H, MCHC 32.1, RDW Std Deviation 56.0 H, RDW Coeff of Fredi 15.1 H, Plt Count 509 H, MPV 9.2, Immature Gran % (Auto) 0.800, Neut % (Auto) 86.0 H, Lymph % (Auto) 4.1 L, [place]ates % (Auto) 8.9, Eos % (Auto) 0.0, Baso % (Auto) 0.2, Absolute Neuts (auto) 24.2 H, Absolute Lymphs (auto) 1.14, Nucleated RBC % 0, Differential Comment SCANNED, Diff Path Review November, Sodium 133 L, Potassium 3.5, Chloride 92 L, Carbon Dioxide 35.0 H, Anion Gap 6, BUN 15, Creatinine 0.56 L, Estim Creat Clear Calc 70.06, Est GFR (MDRD) Af Amer 181, Est GFR (MDRD) Non-Af 150, BUN/Creatinine Ratio 26.6 H, Glucose 103, Calcium 8.4 L Micro: Microbiology 05/12/23 11:29 Urine, Catheterized Urine Culture - Final Culture exhibits no growth. 05/12/23 11:01 Blood Culture (Wb) - Right Wrist Blood Culture - Preliminary No growth in 48 hours. 05/12/23 10:44 Blood Culture (Wb) - Left Forearm Blood Culture - Preliminary No growth in 48 hours. 05/13/23 23:00 Nasal Secretion SARS-CoV-2 & FLU Antigen (Rapid) - Final 05/12/23 17:25 Mucosa - Nose Respiratory Panel (PCR) - Final 05/12/23 13:20 Stool Stool Occult Blood (NICOLETTE) - Final 05/12/23 11:01 Nasal Secretion SARS-CoV-2 & FLU Antigen (Rapid) - Final ABG Data ABG results: ABG 05/13/23 22:23 Specimen Type ART Sample Site L Radial pH 7.46 H Bicarbonate Actual 33.4 H Total CO2 35 Base Excess 10 H O2 Saturation 95 O2 % 5.0 ABG pCO2 47.3 H ABG pO2 71 L Ortiz Test Positive O2 Delivery Device Cannula Vent Mode Not entered Radiography Diagnostic Testing: Radiology Impression Chest X-Ray 05/13/23 22:23 IMPRESSION: Worsening bilateral pneumonia with a small right pleural effusion. Cardiomegaly. Electronically Signed: Petr Black MD at 22:40 EDT , Physical Exam Narrative General: Alert, Oriented x3, Cooperative, No apparent distress HEENT: Atraumatic, PERRLA, EOMI, Normocephalic Oral: Moist Mucosa Neck: Supple, No JVD Lungs: Diminished, Normal air movement, No rhonchi, No wheeze, No rales Cardiovascular: Regular rate, Regular Rhythm, Normal S1, Normal S2, No murmurs Abdomen: Soft, Non Tender, Non-Distended, No Hepato-splenomegaly Extremities: No edema, Capillary Refill Less than 3 Seconds Skin: No rashes, No breakdown, lower extremity chronic venous stasis changes Musculoskeletal: No Tenderness to Palpation of Joints or Extremities Neurological: All extremities, Sensory exam intact to light touch and pain Psych/Mental Status: Flat Assessment & Plan Assessment/Plan (1) Hypoxia: (2) SOB (shortness of breath): (3) Acute on chronic anemia: PLAN: Plan 1. Shortness of breath secondary to acute on chronic diastolic heart failure and possibly community-acquired pneumonia/paroxysmal A-fib/CAD/HTN/age of the/pulmonary hypertension ? His BNP is elevated continue with IV Lasix ? Daily weight fluid restriction ? Echo with an EF of 60% and stage III diastolic dysfunction with RVSP of 92 mmHg ? Respiratory panel and COVID and flu panel are obtained secondary to shortness of breath all of these were negative ? He is on rate control for his A-fib however not on any anticoagulation secondary to his use and history of frequent falls ? We will continue with some of his home blood pressure medications and make adjustments if necessary ? Continue with his Lipitor ? Continue with Rocephin and azithromycin if he worsens then can broaden 2. Tobacco abuse/history of COPD/history of adenocarcinoma of the lung ? Does not appear to be currently in exacerbation ? Continue with his home inhalers ? He had bilateral adenocarcinoma and recently had a PET scan that was unremarkable he follows with [facility] ? Discussed cessation, continue patch 3. Acute on chronic anemia ? Unclear etiology ? Stool occult is negative for blood ? Iron studies demonstrate a low iron concentration as well as a low TIBC and a low iron saturation with an elevated ferritin 479 4. Acute on chronic debility with recent compression fractures ? Continue with PT/OT ? May need skilled placement on discharge 5. BPH ? Continue with Flomax ? Stable 6. GERD ? Stable ? Continue PPI 7. Chronic alcohol use/bipolar disorder ? Drinks about 2-4 beers daily ? We will monitor closely for signs of withdrawal ? Continue with his home psychiatric medications DVT: SCDs Charges/Coding Visit Charges Inpatient E&M: 69035 Subs Hosp L2
--- NOTE | 2023-05-14 14:50 | WOUNDNOTE ---
wound photo: sacrum
--- NOTE | 2023-05-14 14:52 | WOUNDNOTE ---
wound photo: right heel
--- NOTE | 2023-05-14 15:12 | CASEMGMT ---
SW went to patient's room and let him know [facility] is full. Patient did not have any other options. SW called patient's sister and left her a voice mail letting her know this information and SW needed 3 more facilities. SW also put a note on patient's SNF list indicating SW needs 3 more facilities and left SW's phone number. Comfort Minor INSTRUCTIONAL ASSISTANT SOHEILA
[2023-05-14] MEDS: Acetaminophen 325 MG Tablet 650 MG PO (17:10)
[2023-05-14] MEDS: Albuterol 2.5 MG/3 ML VIAL.NEB. INHALATION (20:44)
[2023-05-14] MEDS: Tamsulosin HCl 0.4 MG Capsule 0.8 MG PO (22:13)
[2023-05-14] MEDS: OLANZapine 5 MG/TAB TAB.RAPDIS 15 MG PO (22:13)
[2023-05-14] MEDS: Finasteride 5 MG Tablet PO (22:14)
[2023-05-14] MEDS: Divalproex (ER) 500 MG Tablet PO (22:14)
[2023-05-15] VITALS (14 sets, daily range): BP systolic 98–137; BP diastolic 41–61; PULSE 49–63; RESP 16–24; TEMP 36.2–36.7; O2SAT 94–100; BMI 27.5
[2023-05-15] MEDS: Acetaminophen 325 MG Tablet 650 MG PO ×2 (04:08→17:46)
[2023-05-15] MEDS: HYDROcodone Bitartrate/Apap 5/325 Tablet PO ×3 (06:17→21:23)
[2023-05-15] MEDS: Sodium Chloride 1 GM Tablet PO ×3 (06:17→21:21)
[2023-05-15 08:57] LABS: Absolute Lymphocyte Count 1.54 X10^3/uL (0.83-4.51); Absolute Neutrophil Count 11.8 X10^3/uL (2.0-7.7); Basophil# 0.04 X10^3/uL; Basophil% 0.3 % (0-1); Eosinophil# 0.13 X10^3/uL; Eosinophils% 0.9 % (0-5); Hematocrit 25.6 % (40-54); Hemoglobin 8.1 g/dL (13.0-16.5); Lymphocyte # 1.54 X10^3/ul (0.83-4.51); Lymphocyte % 10.6 % (19-41); Mean Corp Hgb Conc 31.6 g/dL (32-36); Mean Corpuscular Hgb 31.5 pg (27.0-32.0); Mean Corpuscular Volume 99.6 fL (80-94); Mean Platelet Vol. 9.3 fl (6.2-12.0); Monocyte% 6.9 % (0-10); NRBC Flagged by Analyzer 0 % (0-5); Neutrophil # 11.76 X10^3/uL (2.7-7.7); Neutrophil % 80.5 % (47-70); Platelet Count 507 K/mm3 (150-450); RBC Distribution Width CV 15.1 % (11.6-14.6); RBC Distribution Width SD 55.3 fl (35.1-43.9); Red Blood Count 2.57 M/mm3 (4.6-6.2); White Blood Count 14.6 K/mm3 (4.4-11.0)
[2023-05-15] MEDS: Multivitamins,Therapeutic Tablet 1 TABLET PO (08:58)
[2023-05-15] MEDS: Folic Acid 1 MG Tablet PO (08:58)
[2023-05-15] MEDS: Aspirin E.C. 81 MG Tablet PO (08:59)
[2023-05-15] MEDS: Ascorbic Acid 500 MG Tablet PO (08:59)
[2023-05-15] MEDS: Pantoprazole Sodium 20 MG Tablet PO (08:59)
[2023-05-15] MEDS: Ceftriaxone 1 GM/50 ML BAG IV (09:01)
[2023-05-15] MEDS: guaiFENesin 600 MG Tablet PO ×2 (09:01→21:20)
[2023-05-15] MEDS: Atorvastatin Calcium 80 MG Tablet PO (09:01)
[2023-05-15] MEDS: Thiamine Hydrochloride 100 MG Tablet PO (09:02)
[2023-05-15] MEDS: Petrolatum 33% Tube 1 APPLIC TOPICAL (09:02)
[2023-05-15] MEDS: Cholecalciferol (VIT D3) 25 MCG TABLET (1,000 UNITS) 50 MCG PO (09:02)
[2023-05-15] MEDS: Loratadine 10 MG Tablet PO (09:02)
[2023-05-15] MEDS: Fluticasone 0.05% 1 SPRAY NASAL.SRY 2 SPRAY NASAL (09:03)
[2023-05-15] MEDS: Furosemide 100 MG/10 ML Vial 60 MG IV ×2 (09:04→17:45)
[2023-05-15 09:21] LABS: Anion Gap 1 (5-15); BUN 18 mg/dL (7-18); BUN/Creat Ratio 33.4 RATIO (10-20); Calcium,Total 8.6 mg/dL (8.5-10.1); Chloride 96 mmol/L (98-107); Creatinine, Serum 0.54 mg/dL (0.70-1.30); EST Glomerular Filtration Rate 158 mL/min (>60); Est Glom Filt Rate - Afr Amer 191 mL/min (>60); Estimated Creatinine Clearance 70.06 ml/min; Glucose 102 mg/dL (74-106); Potassium 3.1 mmol/L (3.5-5.1); Sodium Level 131 mmol/L (136-145)
--- NOTE | 2023-05-15 09:45 | CASEMGMT ---
SW spoke with patient and asked if he and his sister talked about another facility. Patient said they are okay with anywhere except for where he came from ([facility]). AMY asked Radha contreras/danny chief of planning to send a referral to [facility] as patient's sister would like patient to stay close. Comfort Minor TWISTING FRAME FIXER SOHEILA
[2023-05-15 09:55] LABS: Pathologist Review Reviewed
--- NOTE | 2023-05-15 09:59 | CASEMGMT ---
Discharge Planning Referral sent to [facility] via [facility]. Radha Means, Discharge Planning Asst.
[2023-05-15] MEDS: Azithromycin 500 MG in Dextrose 5%-Water (250mL Bag) 250 ML 250 MG IV (10:33)
--- NOTE | 2023-05-15 12:28 | CASEMGMT ---
[facility] accepted patient and will start pre-cert. SW called patient's sister Luisa and notified her of [facility]. Luisa is in agreement with this plan and thanked AMY for updating her. Plan: [facility] pending insurance approval. Comfort PARNELL
[2023-05-15 13:21] LABS: Vancomycin, Trough Level 5.8 ug/mL (5.0-15.0)
--- NOTE | 2023-05-15 13:32 | PN.HOSP_ITS ---
Subjective Subjective Doing well, feels better than he did yesterday. Leukocytosis is improving Objective Data Objective Data Vital Signs: Vital Signs Temp Pulse Resp BP Pulse Ox O2 Del Method O2 Flow Rate 97.5 F L 61 20 H 106/46 L 100 Nasal Cannula 2 05/15/23 12:52 05/15/23 12:52 05/15/23 12:52 05/15/23 12:52 05/15/23 12:52 05/15/23 12:52 05/15/23 12:52 FiO2 40 05/13/23 22:20 Oxygen Flow Rate (L/min) 2 Oxygen Delivery Method Nasal Cannula Weight: 203 lb 0.732 oz Body Mass Index (BMI) 27.5 Intake & Output: Intake and Output for Last 24 Hours 05/14/23 05/15/23 05/16/23 03:59 03:59 03:59 Intake Total 1740 / 1740 1235 / 1235 505 / 505 Output Total 2825 / 2825 2300 / 2300 250 / 250 Balance -1085 / -1085 -1065 / -1065 255 / 255 Medical Nutrition Assessment Dietitian: Malnutrition Criteria Met Start: 05/13/23 14:21 Freq: Status: Active Protocol: Document 05/13/23 14:21 AG (Rec: 05/13/23 14:21 AG [id number]) Nutrition Malnutrition Evidence of Malnutrition Exists Yes Malnutrition (moderate): Chronic Evidenced By Suboptimal Energy Intake ( Moderate),Weight Loss ( Moderate),Physical Changes ( Mild) Clinical Problem Chronic Disease or Condition Related Malnutrition Etiology moderate, chronic malnutrition related to inadequate energy intake Signs/Symptoms as evidenced by unintentional 23% wt loss x 3 months, estimated PO intake meeting < 75% of estimated energy needs > 3 months, mild muscle wasting/fat loss evident per physical exam in orbital, clavicle, acromion areas Status Active Problem Recommendation Dietitian Recommendations/Changes continue cardiac diet w/ 1750mL fluid restriction as indicated; Leland BID per pt request Lab / Micro Data 05/15/23 08:35 05/15/23 08:35 Labs: Laboratory Results - last 24 hr 05/14/23 06:32: Diff Path Review Reviewed 05/15/23 08:35: WBC 14.6 H, RBC 2.57 L, Hgb 8.1 L, Hct 25.6 L, MCV 99.6 H, MCH 31.5, MCHC 31.6 L, RDW Std Deviation 55.3 H, RDW Coeff of Fredi 15.1 H, Plt Count 507 H, MPV 9.3, Immature Gran % (Auto) 0.800, Neut % (Auto) 80.5 H, Lymph % (Auto) 10.6 L, [place] % (Auto) 6.9, Eos % (Auto) 0.9, Baso % (Auto) 0.3, Absolute Neuts (auto) 11.8 H, Absolute Lymphs (auto) 1.54, Nucleated RBC % 0, Sodium 131 L, Potassium 3.1 L, Chloride 96 L, Carbon Dioxide 34.0 H, Anion Gap 1 L, BUN 18, Creatinine 0.54 L, Estim Creat Clear Calc 70.06, Est GFR (MDRD) Af Amer 191, Est GFR (MDRD) Non-Af 158, BUN/Creatinine Ratio 33.4 H, Glucose 102, Calcium 8.6 05/15/23 12:25: Vancomycin Trough 5.8 Micro: Microbiology 05/13/23 22:00 Sputum, Expectorated/Coughed Respiratory Culture - Preliminary Staphylococcus aureus 05/14/23 04:33 Urine, Clean Catch Urine Culture - Preliminary GPC Poss Enterococcus sp 05/12/23 11:29 Urine, Catheterized Urine Culture - Final Culture exhibits no growth. 05/12/23 11:01 Blood Culture (Wb) - Right Wrist Blood Culture - Preliminary No growth in 48 hours. 05/12/23 10:44 Blood Culture (Wb) - Left Forearm Blood Culture - Preliminary No growth in 48 hours. 05/13/23 23:00 Nasal Secretion SARS-CoV-2 & FLU Antigen (Rapid) - Final 05/12/23 17:25 Mucosa - Nose Respiratory Panel (PCR) - Final 05/12/23 13:20 Stool Stool Occult Blood (NICOLETTE) - Final 05/12/23 11:01 Nasal Secretion SARS-CoV-2 & FLU Antigen (Rapid) - Final Physical Exam Narrative General: Alert, Oriented x3, Cooperative, No apparent distress HEENT: Atraumatic, PERRLA, EOMI, Normocephalic Oral: Moist Mucosa Neck: Supple, No JVD Lungs: Diminished, Normal air movement, No rhonchi, No wheeze, No rales Cardiovascular: Regular rate, Regular Rhythm, Normal S1, Normal S2, No murmurs Abdomen: Soft, Non Tender, Non-Distended, No Hepato-splenomegaly Extremities: No edema, Capillary Refill Less than 3 Seconds Skin: No rashes, No breakdown, lower extremity chronic venous stasis changes Musculoskeletal: No Tenderness to Palpation of Joints or Extremities Neurological: All extremities, Sensory exam intact to light touch and pain Psych/Mental Status: Normal affect Assessment & Plan Assessment/Plan (1) Hypoxia: (2) SOB (shortness of breath): (3) Acute on chronic anemia: PLAN: Plan 1. Shortness of breath secondary to acute on chronic diastolic heart failure and possibly community-acquired pneumonia/paroxysmal A-fib/CAD/HTN/age of the/pulmonary hypertension ? His BNP is elevated continue with IV Lasix, renal function stable ? Daily weight fluid restriction ? Echo with an EF of 60% and stage III diastolic dysfunction with RVSP of 92 mmHg ? Respiratory panel and COVID and flu panel are obtained secondary to shortness of breath all of these were negative ? He is on rate control for his A-fib however not on any anticoagulation secondary to his use and history of frequent falls ? We will continue with some of his home blood pressure medications and make adjustments if necessary ? Continue with his Lipitor ? Continue with Rocephin and azithromycin, leukocytosis is improving and he is feeling better 2. Tobacco abuse/history of COPD/history of adenocarcinoma of the lung ? Does not appear to be currently in exacerbation ? Continue with his home inhalers ? He had bilateral adenocarcinoma and recently had a PET scan that was unrema rkable he follows with [facility] ? Discussed cessation, continue patch 3. Acute on chronic anemia ? Unclear etiology ? Stool occult is negative for blood ? Iron studies demonstrate a low iron concentration as well as a low TIBC and a low iron saturation with an elevated ferritin 479 4. Acute on chronic debility with recent compression fractures ? Continue with PT/OT ? May need skilled placement on discharge 5. BPH ? Continue with Flomax ? Stable 6. GERD ? Stable ? Continue PPI 7. Chronic alcohol use/bipolar disorder ? Drinks about 2-4 beers daily ? We will monitor closely for signs of withdrawal ? Continue with his home psychiatric medications DVT: SCDs Charges/Coding Visit Charges Inpatient E&M: 24177 Subs Hosp L2
[2023-05-15] MEDS: Potassium Chloride Oral Tablet 20 MEQ 40 MEQ PO (13:59)
[2023-05-15] MEDS: Budesonide Respules 0.5 MG/2 ML AMPUL.NEB. INHALATION (20:00)
[2023-05-15] MEDS: Tamsulosin HCl 0.4 MG Capsule 0.8 MG PO (21:20)
[2023-05-15] MEDS: Finasteride 5 MG Tablet PO (21:22)
[2023-05-15] MEDS: OLANZapine 5 MG/TAB TAB.RAPDIS 15 MG PO (21:22)
[2023-05-15] MEDS: Divalproex (ER) 500 MG Tablet PO (21:23)
[2023-05-16] VITALS (9 sets, daily range): BP systolic 113–158; BP diastolic 52–76; PULSE 42–66; RESP 16–27; TEMP 36.4–36.8; O2SAT 93–97; BMI 28.1
[2023-05-16] MEDS: Sodium Chloride 1 GM Tablet PO ×3 (04:58→20:17)
[2023-05-16] MEDS: HYDROcodone Bitartrate/Apap 5/325 Tablet PO ×3 (05:00→20:16)
[2023-05-16] MEDS: Budesonide Respules 0.5 MG/2 ML AMPUL.NEB. INHALATION ×2 (07:03→19:15)
[2023-05-16 07:06] LABS: Absolute Lymphocyte Count 0.86 X10^3/uL (0.83-4.51); Absolute Neutrophil Count 8.4 X10^3/uL (2.0-7.7); Basophil# 0.03 X10^3/uL; Basophil% 0.3 % (0-1); Eosinophil# 0.08 X10^3/uL; Eosinophils% 0.8 % (0-5); Hematocrit 23.9 % (40-54); Hemoglobin 7.5 g/dL (13.0-16.5); Lymphocyte # 0.86 X10^3/ul (0.83-4.51); Lymphocyte % 8.3 % (19-41); Mean Corp Hgb Conc 31.4 g/dL (32-36); Mean Corpuscular Hgb 31.5 pg (27.0-32.0); Mean Corpuscular Volume 100.4 fL (80-94); Monocyte# 0.88 X10^3/uL; Monocyte% 8.5 % (0-10); NRBC Flagged by Analyzer 0 % (0-5); Neutrophil # 8.42 X10^3/uL (2.7-7.7); Neutrophil % 81.6 % (47-70); Platelet Count 440 K/mm3 (150-450); RBC Distribution Width CV 15.1 % (11.6-14.6); RBC Distribution Width SD 55.2 fl (35.1-43.9); Red Blood Count 2.38 M/mm3 (4.6-6.2); White Blood Count 10.3 K/mm3 (4.4-11.0)
[2023-05-16 07:39] LABS: Anion Gap 2 (5-15); BUN 14 mg/dL (7-18); BUN/Creat Ratio 28.3 RATIO (10-20); Calcium,Total 8.4 mg/dL (8.5-10.1); Chloride 96 mmol/L (98-107); Creatinine, Serum 0.49 mg/dL (0.70-1.30); EST Glomerular Filtration Rate 175 mL/min (>60); Est Glom Filt Rate - Afr Amer 211 mL/min (>60); Estimated Creatinine Clearance 70.06 ml/min; Glucose 113 mg/dL (74-106); Magnesium 2.1 mg/dL (1.6-2.6); Phosphorus 3.4 mg/dL (2.5-4.9); Potassium 3.5 mmol/L (3.5-5.1); Sodium Level 134 mmol/L (136-145)
[2023-05-16] MEDS: Sodium Ferric Gluconat/Sucrose 250 MG in 0.9% Normal Saline (250mL Bag) 250 ML 135 MG IV (09:01)
[2023-05-16] MEDS: Ceftriaxone 1 GM/50 ML BAG IV (09:01)
[2023-05-16] MEDS: Azithromycin 500 MG in Dextrose 5%-Water (250mL Bag) 250 ML 250 MG IV (10:14)
[2023-05-16] MEDS: Furosemide 100 MG/10 ML Vial 60 MG IV ×2 (10:15→17:19)
[2023-05-16] MEDS: 0.9% Saline Lock 10 ML Syringe IV ×3 (10:16→20:21)
[2023-05-16] MEDS: Aspirin E.C. 81 MG Tablet PO (10:17)
[2023-05-16] MEDS: Folic Acid 1 MG Tablet PO (10:17)
[2023-05-16] MEDS: Multivitamins,Therapeutic Tablet 1 TABLET PO (10:17)
[2023-05-16] MEDS: Thiamine Hydrochloride 100 MG Tablet PO (10:18)
[2023-05-16] MEDS: Loratadine 10 MG Tablet PO (10:18)
[2023-05-16] MEDS: Ascorbic Acid 500 MG Tablet PO (10:18)
[2023-05-16] MEDS: Atorvastatin Calcium 80 MG Tablet PO (10:19)
[2023-05-16] MEDS: guaiFENesin 600 MG Tablet PO (10:19)
[2023-05-16] MEDS: Losartan Potassium 50 MG Tablet PO (10:19)
[2023-05-16] MEDS: Pantoprazole Sodium 20 MG Tablet PO (10:20)
[2023-05-16] MEDS: Cholecalciferol (VIT D3) 25 MCG TABLET (1,000 UNITS) 50 MCG PO (10:20)
[2023-05-16] MEDS: Petrolatum 33% Tube 1 APPLIC TOPICAL (10:21)
[2023-05-16] MEDS: Fluticasone 0.05% 1 SPRAY NASAL.SRY 2 SPRAY NASAL (10:21)
--- NOTE | 2023-05-16 12:24 | PN.HOSP_ITS ---
Subjective Subjective Doing well, no issues overnight. Says that he feels much better today Objective Data Objective Data Vital Signs: Vital Signs Temp Pulse Resp BP Pulse Ox O2 Del Method O2 Flow Rate 97.8 F 66 24 H 154/55 H 97 Nasal Cannula 2 05/16/23 08:47 05/16/23 08:47 05/16/23 08:47 05/16/23 08:47 05/16/23 08:47 05/16/23 08:47 05/16/23 08:47 FiO2 40 05/13/23 22:20 Oxygen Flow Rate (L/min) 2 Oxygen Delivery Method Nasal Cannula Weight: 207 lb 10.807 oz Body Mass Index (BMI) 28.1 Intake & Output: Intake and Output for Last 24 Hours 05/15/23 05/16/23 05/17/23 03:59 03:59 03:59 Intake Total 1235 / 1235 825 / 825 270 / 270 Output Total 2300 / 2300 550 / 550 200 / 200 Balance -1065 / -1065 275 / 275 70 / 70 Medical Nutrition Assessment Dietitian: Malnutrition Criteria Met Start: 05/13/23 14:21 Freq: Status: Active Protocol: Document 05/13/23 14:21 AG (Rec: 05/13/23 14:21 AG [id number]) Nutrition Malnutrition Evidence of Malnutrition Exists Yes Malnutrition (moderate): Chronic Evidenced By Suboptimal Energy Intake ( Moderate),Weight Loss ( Moderate),Physical Changes ( Mild) Clinical Problem Chronic Disease or Condition Related Malnutrition Etiology moderate, chronic malnutrition related to inadequate energy intake Signs/Symptoms as evidenced by unintentional 23% wt loss x 3 months, estimated PO intake meeting < 75% of estimated energy needs > 3 months, mild muscle wasting/fat loss evident per physical exam in orbital, clavicle, acromion areas Status Active Problem Recommendation Dietitian Recommendations/Changes continue cardiac diet w/ 1750mL fluid restriction as indicated; Leland BID per pt request Lab / Micro Data 05/16/23 06:49 05/16/23 06:49 Labs: Laboratory Results - last 24 hr 05/15/23 12:25: Vancomycin Trough 5.8 05/16/23 06:49: WBC 10.3, RBC 2.38 L, Hgb 7.5 L, Hct 23.9 L, MCV 100.4 H, MCH 31.5, MCHC 31.4 L, RDW Std Deviation 55.2 H, RDW Coeff of Fredi 15.1 H, Plt Count 440, MPV 9.0, Immature Gran % (Auto) 0.500, Neut % (Auto) 81.6 H, Lymph % (Auto) 8.3 L, [place] % (Auto) 8.5, Eos % (Auto) 0.8, Baso % (Auto) 0.3, Absolute Neuts (auto) 8.4 H, Absolute Lymphs (auto) 0.86, Nucleated RBC % 0, Sodium 134 L, Potassium 3.5, Chloride 96 L, Carbon Dioxide 36.0 H, Anion Gap 2 L, BUN 14, Creatinine 0.49 L, Estim Creat Clear Calc 70.06, Est GFR (MDRD) Af Amer 211, Est GFR (MDRD) Non-Af 175, BUN/Creatinine Ratio 28.3 H, Glucose 113 H, Calcium 8.4 L , Phosphorus 3.4, Magnesium 2.1 Micro: Microbiology 05/13/23 22:58 Blood Culture (Wb) - Anticubital Right Blood Culture - Preliminary No growth in 48 hours. 05/13/23 23:03 Blood Culture (Wb) - Right Hand Blood Culture - Preliminary No growth in 48 hours. 05/13/23 22:00 Sputum, Expectorated/Coughed Gram Stain - Final 05/13/23 22:00 Sputum, Expectorated/Coughed Respiratory Culture - Preliminary Staphylococcus aureus Gram negative dany 05/14/23 04:33 Urine, Clean Catch Urine Culture - Final Enterococcus faecalis 05/12/23 11:29 Urine, Catheterized Urine Culture - Final Culture exhibits no growth. 05/12/23 11:01 Blood Culture (Wb) - Right Wrist Blood Culture - Preliminary No growth in 48 hours. 05/12/23 10:44 Blood Culture (Wb) - Left Forearm Blood Culture - Preliminary No growth in 48 hours. 05/13/23 23:00 Nasal Secretion SARS-CoV-2 & FLU Antigen (Rapid) - Final 05/12/23 17:25 Mucosa - Nose Respiratory Panel (PCR) - Final 05/12/23 13:20 Stool Stool Occult Blood (NICOLETTE) - Final 05/12/23 11:01 Nasal Secretion SARS-CoV-2 & FLU Antigen (Rapid) - Final Physical Exam Narrative General: Alert, Oriented x3, Cooperative, No apparent distress HEENT: Atraumatic, PERRLA, EOMI, Normocephalic Oral: Moist Mucosa Neck: Supple, No JVD Lungs: Diminished, Normal air movement, No rhonchi, No wheeze, No rales Cardiovascular: Regular rate, Regular Rhythm, Normal S1, Normal S2, No murmurs Abdomen: Soft, Non Tender, Non-Distended, No Hepato-splenomegaly Extremities: No edema, Capillary Refill Less than 3 Seconds Skin: No rashes, No breakdown, lower extremity chronic venous stasis changes Musculoskeletal: No Tenderness to Palpation of Joints or Extremities Neurological: Moves all extremities, Sensory exam intact to light touch and pain Psych/Mental Status: Normal affect Assessment & Plan Assessment/Plan (1) Hypoxia: (2) SOB (shortness of breath): (3) Acute on chronic anemia: PLAN: Plan 1. Shortness of breath secondary to acute on chronic diastolic heart failure and possibly community-acquired pneumonia/paroxysmal A-fib/CAD/HTN/age of the/pulmonary hypertension ? His BNP is elevated continue with IV Lasix, renal function stable ? Daily weight fluid restriction ? Echo with an EF of 60% and stage III diastolic dysfunction with RVSP of 92 mmH g ? Respiratory panel and COVID and flu panel are obtained secondary to shortness of breath all of these were negative ? He is on rate control for his A-fib however not on any anticoagulation secondary to his use and history of frequent falls ? We will continue with some of his home blood pressure medications and make adjustments if necessary ? Continue with his Lipitor ? He is feeling much better and his leukocytosis has resolved, he has completed 3 days of azithromycin today we will continue with Rocephin. Sputum culture with Staph aureus however given the improvement it is possible that this could be an MSSA despite previous wound cultures with MRSA given his improvement we will continue with current treatment at the moment until sensitivities return. There is also a gram-negative dany present 2. Tobacco abuse/history of COPD/history of adenocarcinoma of the lung ? Does not appear to be currently in exacerbation ? Continue with his home inhalers ? He had bilateral adenocarcinoma and recently had a PET scan that was unremarkable he follows with [facility] ? Discussed cessation, continue patch 3. Acute on chronic anemia ? Unclear etiology ? Stool occult is negative for blood ? Iron studies demonstrate a low iron concentration as well as a low TIBC and a low iron saturation with an elevated ferritin 479 ? Hemoglobin dropped to 7.5 today we will repeat but in the meantime given his iron studies will give him a dose of Venofer 4. Acute on chronic debility with recent compression fractures ? Continue with PT/OT ? May need skilled placement on discharge 5. BPH ? Continue with Flomax ? Stable 6. GERD ? Stable ? Continue PPI 7. Chronic alcohol use/bipolar disorder ? Drinks about 2-4 beers daily ? We will monitor closely for signs of withdrawal ? Continue with his home psychiatric medications DVT: SCDs Charges/Coding Visit Charges Inpatient E&M: 65417 Subs Hosp L2
[2023-05-16 12:44] LABS: Hemoglobin 7.8 g/dL (13.0-16.5)
--- NOTE | 2023-05-16 15:49 | CASEMGMT ---
Social Work SW informed by RN that pt's sister here and wants pt to go somewhere other than [facility]. SW spoke w/pt and sister in room. Pt's sister states she was thinking for pt to go to [place], asked about their star rating. SW explained they have one star, [facility] has 3. Both pt and sister in agreement w/continuing the process w/[facility]. SW let pt and sister know if he gets there and they do not feel he is getting the care he needs, they need to speak up and talk to staff at [facility] about getting him transferred elsewhere. Both state understanding. Plan continues to be for pt to go to [facility], pending precert. KEYSHAWN Jorge
[2023-05-16] MEDS: OLANZapine 5 MG/TAB TAB.RAPDIS 15 MG PO (20:17)
[2023-05-16] MEDS: Finasteride 5 MG Tablet PO (20:18)
[2023-05-16] MEDS: Divalproex (ER) 500 MG Tablet PO (20:19)
[2023-05-16] MEDS: Tamsulosin HCl 0.4 MG Capsule 0.8 MG PO (20:19)
[2023-05-17] VITALS (17 sets, daily range): BP systolic 118–163; BP diastolic 53–67; PULSE 43–70; RESP 18–29; TEMP 36.1–36.9; O2SAT 91–98; BMI 26.0
[2023-05-17] MEDS: HYDROcodone Bitartrate/Apap 5/325 Tablet PO ×3 (05:01→20:22)
[2023-05-17] MEDS: Sodium Chloride 1 GM Tablet PO ×3 (05:01→20:18)
[2023-05-17 05:54] LABS: Absolute Lymphocyte Count 1.23 X10^3/uL (0.83-4.51); Absolute Neutrophil Count 6.5 X10^3/uL (2.0-7.7); Basophil# 0.03 X10^3/uL; Basophil% 0.4 % (0-1); Eosinophil# 0.13 X10^3/uL; Eosinophils% 1.5 % (0-5); Hematocrit 26.3 % (40-54); Hemoglobin 8.4 g/dL (13.0-16.5); Lymphocyte # 1.23 X10^3/ul (0.83-4.51); Lymphocyte % 14.4 % (19-41); Mean Corp Hgb Conc 31.9 g/dL (32-36); Mean Corpuscular Hgb 32.1 pg (27.0-32.0); Mean Corpuscular Volume 100.4 fL (80-94); Mean Platelet Vol. 9.2 fl (6.2-12.0); Monocyte# 0.63 X10^3/uL; Monocyte% 7.4 % (0-10); NRBC Flagged by Analyzer 0 % (0-5); Neutrophil # 6.47 X10^3/uL (2.7-7.7); Neutrophil % 75.5 % (47-70); Platelet Count 492 K/mm3 (150-450); RBC Distribution Width CV 15.1 % (11.6-14.6); RBC Distribution Width SD 56.5 fl (35.1-43.9); Red Blood Count 2.62 M/mm3 (4.6-6.2); White Blood Count 8.6 K/mm3 (4.4-11.0)
[2023-05-17 06:30] LABS: Anion Gap 7 (5-15); BUN 11 mg/dL (7-18); BUN/Creat Ratio 27.2 RATIO (10-20); Calcium,Total 8.9 mg/dL (8.5-10.1); Chloride 96 mmol/L (98-107); EST Glomerular Filtration Rate 220 mL/min (>60); Est Glom Filt Rate - Afr Amer 266 mL/min (>60); Estimated Creatinine Clearance 70.06 ml/min; Glucose 95 mg/dL (74-106); Potassium 3.6 mmol/L (3.5-5.1); Sodium Level 136 mmol/L (136-145)
[2023-05-17] MEDS: Budesonide Respules 0.5 MG/2 ML AMPUL.NEB. INHALATION ×2 (07:21→20:55)
[2023-05-17] MEDS: Fluticasone 0.05% 1 SPRAY NASAL.SRY 2 SPRAY NASAL (09:41)
[2023-05-17] MEDS: Ceftriaxone 1 GM/50 ML BAG IV (09:41)
[2023-05-17] MEDS: Furosemide 100 MG/10 ML Vial 60 MG IV ×2 (09:42→16:59)
[2023-05-17] MEDS: Aspirin E.C. 81 MG Tablet PO (09:47)
[2023-05-17] MEDS: Folic Acid 1 MG Tablet PO (09:47)
[2023-05-17] MEDS: Ascorbic Acid 500 MG Tablet PO (09:48)
[2023-05-17] MEDS: Loratadine 10 MG Tablet PO (09:48)
[2023-05-17] MEDS: Thiamine Hydrochloride 100 MG Tablet PO (09:48)
[2023-05-17] MEDS: Multivitamins,Therapeutic Tablet 1 TABLET PO (09:48)
[2023-05-17] MEDS: Losartan Potassium 50 MG Tablet PO (09:49)
[2023-05-17] MEDS: Pantoprazole Sodium 20 MG Tablet PO (09:50)
[2023-05-17] MEDS: guaiFENesin 600 MG Tablet PO ×2 (09:50→20:17)
[2023-05-17] MEDS: Atorvastatin Calcium 80 MG Tablet PO (09:50)
[2023-05-17] MEDS: Cholecalciferol (VIT D3) 25 MCG TABLET (1,000 UNITS) 50 MCG PO (09:51)
[2023-05-17] MEDS: Petrolatum 33% Tube 1 APPLIC TOPICAL (09:51)
--- NOTE | 2023-05-17 10:30 | PCM.PN.HOSP ---
Subjective Subjective Doing well, feels much better than when he came into the hospital. Objective Data Objective Data Vital Signs: Vital Signs Temp Pulse Resp BP Pulse Ox O2 Del Method O2 Flow Rate 98.3 F 70 24 H 141/55 H 93 Nasal Cannula 2 05/17/23 09:00 05/17/23 09:00 05/17/23 09:00 05/17/23 09:00 05/17/23 09:00 05/17/23 09:00 05/17/23 09:00 FiO2 40 05/13/23 22:20 Oxygen Flow Rate (L/min) 2 Oxygen Delivery Method Nasal Cannula Weight: 192 lb 3.889 oz Body Mass Index (BMI) 26.0 Intake & Output: Intake and Output for Last 24 Hours 05/16/23 05/17/23 05/18/23 03:59 03:59 03:59 Intake Total 825 / 825 2085 / 5 120 / 120 Output Total 550 / 550 1900 / 1900 450 / 450 Balance 275 / 275 185 / 185 -330 / -330 Medical Nutrition Assessment Dietitian: Malnutrition Criteria Met Start: 05/13/23 14:21 Freq: Status: Active Protocol: Document 05/13/23 14:21 AG (Rec: 05/13/23 14:21 [id number]) Nutrition Malnutrition Evidence of Malnutrition Exists Yes Malnutrition (moderate): Chronic Evidenced By Suboptimal Energy Intake ( Moderate),Weight Loss ( Moderate),Physical Changes ( Mild) Clinical Problem Chronic Disease or Condition Related Malnutrition Etiology moderate, chronic malnutrition related to inadequate energy intake Signs/Symptoms as evidenced by unintentional 23% wt loss x 3 months, estimated PO intake meeting < 75% of estimated energy needs > 3 months, mild muscle wasting/fat loss evident per physical exam in orbital, clavicle, acromion areas Status Active Problem Recommendation Dietitian Recommendations/Changes continue cardiac diet w/ 1750mL fluid restriction as indicated; Leland BID per pt request Lab / Micro Data 05/17/23 05:19 05/17/23 05:19 Labs: Laboratory Results - last 24 hr 05/16/23 12:25: Hgb 7.8 L, Hct 25.0 L 05/17/23 05:19: WBC 8.6, RBC 2.62 L, Hgb 8.4 L, Hct 26.3 L, MCV 100.4 H, MCH 32.1 H, MCHC 31.9 L, RDW Std Deviation 56.5 H, RDW Coeff of Fredi 15.1 H, Plt Count 492 H, MPV 9.2, Immature Gran % (Auto) 0.800, Neut % (Auto) 75.5 H, Lymph % (Auto) 14.4 L, [place] % (Auto) 7.4, Eos % (Auto) 1.5, Baso % (Auto) 0.4, Absolute Neuts (auto) 6.5, Absolute Lymphs (auto) 1.23, Nucleated RBC % 0, Sodium 136, Potassium 3.6, Chloride 96 L, Carbon Dioxide 33.0 H, Anion Gap 7, BUN 11, Creatinine 0.40 L, Estim Creat Clear Calc 70.06, Est GFR (MDRD) Af Amer 266, Est GFR (MDRD) Non-Af 220, BUN/Creatinine Ratio 27.2 H, Glucose 95, Calcium 8.9 Micro: Microbiology 05/13/23 22:00 Sputum, Expectorated/Coughed Gram Stain - Final 05/13/23 22:00 Sputum, Expectorated/Coughed Respiratory Culture - Preliminary Meth. resistant Staph. aureus Pseudomonas aeruginosa 05/13/23 22:58 Blood Culture (Wb) - Anticubital Right Blood Culture - Preliminary No growth in 48 hours. 05/13/23 23:03 Blood Culture (Wb) - Right Hand Blood Culture - Preliminary No growth in 48 hours. 05/14/23 04:33 Urine, Clean Catch Urine Culture - Final Enterococcus faecalis 05/12/23 11:29 Urine, Catheterized Urine Culture - Final Culture exhibits no growth. 05/12/23 11:01 Blood Culture (Wb) - Right Wrist Blood Culture - Preliminary No growth in 48 hours. 05/12/23 10:44 Blood Culture (Wb) - Left Forearm Blood Culture - Preliminary No growth in 48 hours. 05/13/23 23:00 Nasal Secretion SARS-CoV-2 & FLU Antigen (Rapid) - Final 05/12/23 17:25 Mucosa - Nose Respiratory Panel (PCR) - Final 05/12/23 13:20 Stool Stool Occult Blood (NICOLETTE) - Final 05/12/23 11:01 Nasal Secretion SARS-CoV-2 & FLU Antigen (Rapid) - Final Physical Exam Narrative General: Alert, Oriented x3, Cooperative, No apparent distress HEENT: Atraumatic, PERRLA, EOMI, Normocephalic Oral: Moist Mucosa Neck: Supple, No JVD Lungs: Diminished, Normal air movement, No rhonchi, No wheeze, No rales Cardiovascular: Regular rate, Regular Rhythm, Normal S1, Normal S2, No murmurs Abdomen: Soft, Non Tender, Non-Distended, No Hepato-splenomegaly Extremities: No edema, Capillary Refill Less than 3 Seconds Skin: No rashes, No breakdown, lower extremity chronic venous stasis changes Musculoskeletal: No Tenderness to Palpation of Joints or Extremities Neurological: Moves all extremities, Sensory exam intact to light touch and pain Psych/Mental Status: Normal affect Assessment & Plan Assessment/Plan (1) Hypoxia: (2) SOB (shortness of breath): (3) Acute on chronic anemia: PLAN: Plan 1. Shortness of breath secondary to acute on chronic diastolic heart failure and possibly community-acquired pneumonia/paroxysmal A-fib/CAD/HTN/age of the/pulmonary hypertension ? His BNP is elevated continue with IV Lasix, renal function stable ? Daily weight fluid restriction ? Echo with an EF of 60% and stage III diastolic dysfunction with RVSP of 92 mmHg ? Respiratory panel and COVID and flu panel are obtained secondary to shortness of breath all of these were negative ? He is on rate control for his A-fib however not on any anticoagulation secondary to his use and history of frequent falls ? We will continue with some of his home blood pressure medications and make adjustments if necessary ? Continue with his Lipitor ?Urine cultures finalized with MRSA and Pseudomonas, given the fact that he is having significant improvement only on Rocephin if this indicates that he likely has a bronchiectasis and is colonized with MRSA and the Rocephin has been treating the Pseudomonas partially we will transition to p.o. Levaquin to complete treatment of his Pseudomonas ? Awaiting pre-CERT for discharge to SNF 2. Tobacco abuse/history of COPD/history of adenocarcinoma of the lung ? Does not appear to be currently in exacerbation ? Continue with his home inhalers ? He had bilateral adenocarcinoma and recently had a PET scan that was unremarkable he follows with [facility] ? Discussed cessation, continue patch 3. Acute on chronic anemia ? Unclear etiology ? Stool occult is negative for blood ? Iron studies demonstrate a low iron concentration as well as a low TIBC and a low iron saturation with an elevated ferritin 479 ? Hemoglobin dropped to 7.5 today we will repeat but in the meantime given his iron studies will give him a dose of Venofer 4. Acute on chronic debility with recent compression fractures ? Continue with PT/OT ? May need skilled placement on discharge 5. BPH ? Continue with Flomax ? Stable 6. GERD ? Stable ? Continue PPI 7. Chronic alcohol use/bipolar disorder ? Drinks about 2-4 beers daily ? We will monitor closely for signs of withdrawal ? Continue with his home psychiatric medications DVT: SCDs Charges/Coding Visit Charges Inpatient E&M: 63310 Subs Hosp L2
[2023-05-17] MEDS: levoFLOXacin 750 MG Tablet PO (11:23)
[2023-05-17] MEDS: Acetaminophen 325 MG Tablet 650 MG PO (16:57)
[2023-05-17] MEDS: Finasteride 5 MG Tablet PO (20:17)
[2023-05-17] MEDS: Divalproex (ER) 500 MG Tablet PO (20:17)
[2023-05-17] MEDS: OLANZapine 5 MG/TAB TAB.RAPDIS 15 MG PO (20:19)
[2023-05-17] MEDS: Tamsulosin HCl 0.4 MG Capsule 0.8 MG PO (20:19)
[2023-05-18] VITALS (13 sets, daily range): BP systolic 110–157; BP diastolic 54–89; PULSE 47–58; RESP 16–26; TEMP 35.8–36.4; O2SAT 87–100; BMI 25.7
[2023-05-18] MEDS: Sodium Chloride 1 GM Tablet PO ×3 (04:53→20:33)
[2023-05-18] MEDS: HYDROcodone Bitartrate/Apap 5/325 Tablet PO ×3 (04:53→20:05)
[2023-05-18] MEDS: levoFLOXacin 750 MG Tablet PO (04:54)
[2023-05-18 06:08] LABS: Absolute Lymphocyte Count 1.19 X10^3/uL (0.83-4.51); Absolute Neutrophil Count 6.5 X10^3/uL (2.0-7.7); Basophil# 0.04 X10^3/uL; Basophil% 0.5 % (0-1); Eosinophil# 0.12 X10^3/uL; Eosinophils% 1.4 % (0-5); Hematocrit 26.8 % (40-54); Hemoglobin 8.2 g/dL (13.0-16.5); Lymphocyte # 1.19 X10^3/ul (0.83-4.51); Lymphocyte % 13.7 % (19-41); Mean Corp Hgb Conc 30.6 g/dL (32-36); Mean Corpuscular Hgb 31.2 pg (27.0-32.0); Mean Corpuscular Volume 101.9 fL (80-94); Mean Platelet Vol. 9.1 fl (6.2-12.0); Monocyte# 0.67 X10^3/uL; Monocyte% 7.7 % (0-10); NRBC Flagged by Analyzer 0 % (0-5); Neutrophil # 6.54 X10^3/uL (2.7-7.7); Neutrophil % 75.5 % (47-70); Platelet Count 470 K/mm3 (150-450); RBC Distribution Width CV 15.3 % (11.6-14.6); RBC Distribution Width SD 56.7 fl (35.1-43.9); Red Blood Count 2.63 M/mm3 (4.6-6.2); White Blood Count 8.7 K/mm3 (4.4-11.0)
[2023-05-18 07:01] LABS: Anion Gap 4 (5-15); BUN 8 mg/dL (7-18); BUN/Creat Ratio 16.4 RATIO (10-20); Calcium,Total 8.9 mg/dL (8.5-10.1); Chloride 95 mmol/L (98-107); Creatinine, Serum 0.49 mg/dL (0.70-1.30); EST Glomerular Filtration Rate 177 mL/min (>60); Est Glom Filt Rate - Afr Amer 214 mL/min (>60); Estimated Creatinine Clearance 70.06 ml/min; Glucose 131 mg/dL (74-106); Potassium 3.3 mmol/L (3.5-5.1); Sodium Level 135 mmol/L (136-145)
[2023-05-18] MEDS: Budesonide Respules 0.5 MG/2 ML AMPUL.NEB. INHALATION ×2 (07:22→19:31)
[2023-05-18] MEDS: Potassium Chloride Oral Tablet 20 MEQ 60 MEQ PO (07:59)
[2023-05-18] MEDS: Acetaminophen 325 MG Tablet 650 MG PO ×2 (08:00→16:58)
[2023-05-18] MEDS: Ascorbic Acid 500 MG Tablet PO (08:08)
[2023-05-18] MEDS: Pantoprazole Sodium 20 MG Tablet PO ×2 (08:08)
[2023-05-18] MEDS: Loratadine 10 MG Tablet PO (08:08)
[2023-05-18] MEDS: Cholecalciferol (VIT D3) 25 MCG TABLET (1,000 UNITS) 50 MCG PO (08:08)
[2023-05-18] MEDS: Thiamine Hydrochloride 100 MG Tablet PO (08:08)
[2023-05-18] MEDS: Aspirin E.C. 81 MG Tablet PO (08:08)
[2023-05-18] MEDS: Multivitamins,Therapeutic Tablet 1 TABLET PO (08:08)
[2023-05-18] MEDS: Folic Acid 1 MG Tablet PO (08:08)
[2023-05-18] MEDS: Fluticasone 0.05% 1 SPRAY NASAL.SRY 2 SPRAY NASAL (08:08)
[2023-05-18] MEDS: guaiFENesin 600 MG Tablet PO ×2 (08:08→20:07)
[2023-05-18] MEDS: Petrolatum 33% Tube 1 APPLIC TOPICAL (08:09)
[2023-05-18] MEDS: Atorvastatin Calcium 80 MG Tablet PO (08:09)
[2023-05-18] MEDS: Losartan Potassium 50 MG Tablet PO (09:13)
[2023-05-18] MEDS: Furosemide 100 MG/10 ML Vial 60 MG IV ×2 (09:13→16:52)
--- NOTE | 2023-05-18 10:30 | PN.HOSP_ITS ---
Subjective Subjective Doing well, no issues overnight Objective Data Objective Data Vital Signs: Vital Signs Temp Pulse Resp BP Pulse Ox O2 Del Method O2 Flow Rate 97.3 F L 58 L 21 H 155/63 H 97 Nasal Cannula 2 05/18/23 09:00 05/18/23 09:00 05/18/23 09:00 05/18/23 09:00 05/18/23 09:00 05/18/23 09:00 05/18/23 09:00 FiO2 40 05/13/23 22:20 Oxygen Flow Rate (L/min) 2 Oxygen Delivery Method Nasal Cannula Weight: 189 lb 13.088 oz Body Mass Index (BMI) 25.7 Intake & Output: Intake and Output for Last 24 Hours 05/17/23 05/18/23 05/19/23 03:59 03:59 03:59 Intake Total 2085 / 2085 1290 / 1290 120 / 120 Output Total 1900 / 1900 2950 / 2950 500 / 500 Balance 185 / 185 -1660 / -1660 -380 / -380 Medical Nutrition Assessment Dietitian: Malnutrition Criteria Met Start: 05/13/23 14:21 Freq: Status: Active Protocol: Document 05/13/23 14:21 AG (Rec: 05/13/23 14:21 [id number]) Nutrition Malnutrition Evidence of Malnutrition Exists Yes Malnutrition (moderate): Chronic Evidenced By Suboptimal Energy Intake ( Moderate),Weight Loss ( Moderate),Physical Changes ( Mild) Clinical Problem Chronic Disease or Condition Related Malnutrition Etiology moderate, chronic malnutrition related to inadequate energy intake Signs/Symptoms as evidenced by unintentional 23% wt loss x 3 months, estimated PO intake meeting < 75% of estimated energy needs > 3 months, mild muscle wasting/fat loss evident per physical exam in orbital, clavicle, acromion areas Status Active Problem Recommendation Dietitian Recommendations/Changes continue cardiac diet w/ 1750mL fluid restriction as indicated; Leland BID per pt request Lab / Micro Data 05/18/23 06:00 05/18/23 06:00 Labs: Laboratory Results - last 24 hr 05/18/23 06:00: WBC 8.7, RBC 2.63 L, Hgb 8.2 L, Hct 26.8 L, MCV 101.9 H, MCH 31.2, MCHC 30.6 L, RDW Std Deviation 56.7 H, RDW Coeff of Fredi 15.3 H, Plt Count 470 H, MPV 9.1, Immature Gran % (Auto) 1.200 H, Neut % (Auto) 75.5 H, Lymph % (Auto) 13.7 L, [place] % (Auto) 7.7, Eos % (Auto) 1.4, Baso % (Auto) 0.5, Absolute Neuts (auto) 6.5, Absolute Lymphs (auto) 1.19, Nucleated RBC % 0, Sodium 135 L, Potassium 3.3 L, Chloride 95 L, Carbon Dioxide 36.0 H, Anion Gap 4 L, BUN 8, Creatinine 0.49 L, Estim Creat Clear Calc 70.06, Est GFR (MDRD) Af Amer 214, Est GFR (MDRD) Non-Af 177, BUN/Creatinine Ratio 16.4, Glucose 131 H, Calcium 8.9 Micro: Microbiology 05/13/23 22:00 Sputum, Expectorated/Coughed Gram Stain - Final 05/13/23 22:00 Sputum, Expectorated/Coughed Respiratory Culture - Final Meth. resistant Staph. aureus Pseudomonas aeruginosa 05/12/23 11:01 Blood Culture (Wb) - Right Wrist Blood Culture - Final No growth in 5 days. 05/12/23 10:44 Blood Culture (Wb) - Left Forearm Blood Culture - Final No growth in 5 days. 05/13/23 22:58 Blood Culture (Wb) - Anticubital Right Blood Culture - Preliminary No growth in 48 hours. 05/13/23 23:03 Blood Culture (Wb) - Right Hand Blood Culture - Preliminary No growth in 48 hours. 05/14/23 04:33 Urine, Clean Catch Urine Culture - Final Enterococcus faecalis 05/12/23 11:29 Urine, Catheterized Urine Culture - Final Culture exhibits no growth. 05/13/23 23:00 Nasal Secretion SARS-CoV-2 & FLU Antigen (Rapid) - Final 05/12/23 17:25 Mucosa - Nose Respiratory Panel (PCR) - Final 05/12/23 13:20 Stool Stool Occult Blood (NICOLETTE) - Final 05/12/23 11:01 Nasal Secretion SARS-CoV-2 & FLU Antigen (Rapid) - Final Physical Exam Narrative General: Alert, Oriented x3, Cooperative, No apparent distress HEENT: Atraumatic, PERRLA, EOMI, Normocephalic Oral: Moist Mucosa Neck: Supple, No JVD Lungs: Diminished, Normal air movement, No rhonchi, No wheeze, No rales Cardiovascular: Regular rate, Regular Rhythm, Normal S1, Normal S2, No murmurs Abdomen: Soft, Non Tender, Non-Distended, No Hepato-splenomegaly Extremities: No edema, Capillary Refill Less than 3 Seconds Skin: No rashes, No breakdown, lower extremity chronic venous stasis changes Musculoskeletal: No Tenderness to Palpation of Joints or Extremities Neurological: Moves all extremities, Sensory exam intact to light touch and pain Psych/Mental Status: Normal affect Assessment & Plan Assessment/Plan (1) Hypoxia: (2) SOB (shortness of breath): (3) Acute on chronic anemia: PLAN: Plan 1. Shortness of breath secondary to acute on chronic diastolic heart failure and pneumonia due to Pseudomonas/paroxysmal A-fib/CAD/HTN/age of the/pulmonary hypertension ? His BNP is elevated continue with IV Lasix, renal function stable ? Daily weight fluid restriction ? Echo with an EF of 60% and stage III diastolic dysfunction with RVSP of 92 mmHg ? Respiratory panel and COVID and flu panel are obtained secondary to shortness of breath all of these were negative ? He is on rate control for his A-fib however not on any anticoagulation secondary to his use and history of frequent falls ? We will continue with some of his home blood pressure medications and make adjustments if necessary ? Continue with his Lipitor ?Urine cultures with 1000-10,000 CFU's of Enterococcus and sputum cultures finalized with MRSA and Pseudomonas, given the fact that he is having significant improvement only on Rocephin, this indicates that he likely has a bronchiectasis and is colonized with MRSA and the Rocephin has been treating the Pseudomonas partially we will transition to p.o. Levaquin to complete treatment of his Pseudomonas ? Awaiting pre-CERT for discharge to SNF 2. Tobacco abuse/history of COPD/history of adenocarcinoma of the lung ? Does not appear to be currently in exacerbation ? Continue with his home inhalers ? He had bilateral adenocarcinoma and recently had a PET scan that was unremarkable he follows with [facility] ? Discussed cessation, continue patch 3. Acute on chronic anemia ? Unclear etiology ? Stool occult is negative for blood ? Iron studies demonstrate a low iron concentration as well as a low TIBC and a low iron saturation with an elevated ferritin 479 ? We will repeat another dose of Venofer as his hemoglobin is dropping again, no obvious signs of bleeding ? He is macrocytic on his CBC, will obtain a B12 4. Acute on chronic debility with recent compression fractures ? Continue with PT/OT ? May need skilled placement on discharge 5. BPH ? Continue with Flomax ? Stable 6. GERD ? Stable ? Continue PPI 7. Chronic alcohol use/bipolar disorder ? Drinks about 2-4 beers daily ? We will monitor closely for signs of withdrawal ? Continue with his home psychiatric medications DVT: SCDs Charges/Coding Visit Charges Inpatient E&M: 26724 Subs Hosp L2
--- NOTE | 2023-05-18 10:31 | CASEMGMT ---
Discharge Planning Updates sent to [facility] via [facility]. Radha Means, Discharge Planning Asst.
--- NOTE | 2023-05-18 11:08 | WOUNDNOTE ---
wound photo: sacrum
[2023-05-18] MEDS: Sodium Ferric Gluconat/Sucrose 250 MG in 0.9% Normal Saline (250mL Bag) 250 ML 135 MG IV (11:35)
[2023-05-18] MEDS: 0.9% Saline Lock 10 ML Syringe IV (11:35)
[2023-05-18 12:14] LABS: Vitamin B12 650 pg/mL (211-911)
[2023-05-18] MEDS: OLANZapine 5 MG/TAB TAB.RAPDIS 15 MG PO (20:06)
[2023-05-18] MEDS: Finasteride 5 MG Tablet PO (20:06)
[2023-05-18] MEDS: Tamsulosin HCl 0.4 MG Capsule 0.8 MG PO (20:07)
[2023-05-18] MEDS: Divalproex (ER) 500 MG Tablet PO (20:07)
[2023-05-19 00:39] VITALS: BMI 25.7
[2023-05-19 02:56] VITALS: BP 129/54; PULSE 66; RESP 20; TEMP 36.6; O2SAT 93
[2023-05-19 02:58] VITALS: PULSE 66
[2023-05-19 04:39] VITALS: BMI 25.1
[2023-05-19] MEDS: Sodium Chloride 1 GM Tablet PO ×2 (05:02→13:38)
[2023-05-19] MEDS: levoFLOXacin 750 MG Tablet PO (05:02)
[2023-05-19] MEDS: HYDROcodone Bitartrate/Apap 5/325 Tablet PO ×2 (05:02→13:38)
[2023-05-19] MEDS: 0.9% Saline Lock 10 ML Syringe IV ×2 (05:02→08:52)
[2023-05-19 07:11] VITALS: PULSE 62; RESP 20; O2SAT 96
[2023-05-19 07:11] LABS: Absolute Lymphocyte Count 1.25 X10^3/uL (0.83-4.51); Absolute Neutrophil Count 7.8 X10^3/uL (2.0-7.7); Basophil# 0.07 X10^3/uL; Basophil% 0.7 % (0-1); Eosinophil# 0.15 X10^3/uL; Eosinophils% 1.4 % (0-5); Hematocrit 27.7 % (40-54); Hemoglobin 8.6 g/dL (13.0-16.5); Lymphocyte # 1.25 X10^3/ul (0.83-4.51); Mean Corpuscular Hgb 31.3 pg (27.0-32.0); Mean Corpuscular Volume 100.7 fL (80-94); Monocyte# 1.03 X10^3/uL; Monocyte% 9.9 % (0-10); NRBC Flagged by Analyzer 0 % (0-5); Neutrophil # 7.79 X10^3/uL (2.7-7.7); Neutrophil % 74.6 % (47-70); Platelet Count 484 K/mm3 (150-450); RBC Distribution Width CV 15.2 % (11.6-14.6); RBC Distribution Width SD 56.8 fl (35.1-43.9); Red Blood Count 2.75 M/mm3 (4.6-6.2); White Blood Count 10.4 K/mm3 (4.4-11.0)
[2023-05-19] MEDS: Budesonide Respules 0.5 MG/2 ML AMPUL.NEB. INHALATION (07:11)
[2023-05-19 07:33] LABS: Anion Gap 2 (5-15); BUN 10 mg/dL (7-18); BUN/Creat Ratio 20.1 RATIO (10-20); Calcium,Total 8.9 mg/dL (8.5-10.1); Chloride 95 mmol/L (98-107); EST Glomerular Filtration Rate 173 mL/min (>60); Est Glom Filt Rate - Afr Amer 209 mL/min (>60); Estimated Creatinine Clearance 70.06 ml/min; Glucose 113 mg/dL (74-106); Potassium 3.6 mmol/L (3.5-5.1); Sodium Level 135 mmol/L (136-145)
[2023-05-19 08:44] VITALS: BP 123/53; PULSE 67; RESP 20; TEMP 36.8; O2SAT 93
[2023-05-19] MEDS: Multivitamins,Therapeutic Tablet 1 TABLET PO (08:49)
[2023-05-19] MEDS: Cholecalciferol (VIT D3) 25 MCG TABLET (1,000 UNITS) 50 MCG PO (08:49)
[2023-05-19] MEDS: Thiamine Hydrochloride 100 MG Tablet PO (08:49)
[2023-05-19] MEDS: Ascorbic Acid 500 MG Tablet PO (08:49)
[2023-05-19] MEDS: Folic Acid 1 MG Tablet PO (08:49)
[2023-05-19] MEDS: Aspirin E.C. 81 MG Tablet PO (08:49)
[2023-05-19] MEDS: Petrolatum 33% Tube 1 APPLIC TOPICAL (08:50)
[2023-05-19] MEDS: Losartan Potassium 50 MG Tablet PO (08:50)
[2023-05-19] MEDS: Loratadine 10 MG Tablet PO (08:50)
[2023-05-19] MEDS: Atorvastatin Calcium 80 MG Tablet PO (08:51)
[2023-05-19] MEDS: guaiFENesin 600 MG Tablet PO (08:51)
[2023-05-19] MEDS: Fluticasone 0.05% 1 SPRAY NASAL.SRY 2 SPRAY NASAL (08:51)
--- NOTE | 2023-05-19 08:51 | CASEMGMT ---
Discharge Planning Per [facility], precert is still pending. They are to call and check on status. [facility] Radha Means, Discharge Planning Asst.
[2023-05-19] MEDS: Furosemide 100 MG/10 ML Vial 60 MG IV (08:52)
[2023-05-19] MEDS: Acetaminophen 325 MG Tablet 650 MG PO (13:40)
--- NOTE | 2023-05-19 13:51 | CASEMGMT ---
Addendum entered by Comfort Minor 05/19/23 14:15: SW communicated with [facility] and they will change things on their end to reflect patient will not be coming skilled. Yenni said patient can come today. Plan: d/c to [facility] under intermediate level of care. Comfort PARNELL Original Note: SW received a voice mail from [facility] indicating their physician would like to do a peer to peer. It is likely they are going to deny skilled for patient. SW reviewed therapy notes and patient is dependent for most things, therefore it is unlikely a peer to peer would help. SW will ask if patient can get approved for intermediate level of care. Comfort PARNELL
[2023-05-19 14:00] VITALS: BP 127/58; PULSE 72; RESP 20; TEMP 36.9; O2SAT 94
--- NOTE | 2023-05-19 14:19 | PCM.TXEXTCAR ---
Diet Diet Order/Speech Therapy: 05/12/23 13:23 Diet: Cardiac - Heart Healthy Food consistency:: Regular Liquid Consistency:: Regular/Thin Type of Dietary Supplement:: Leland w/ lunch and dinner Is pt able to select menu?: Yes Fluid restriction:: 1750 mL Routine Orders/Code Status Code Status: Full Code Wound(s) coccyx: Wound Type: Pressure Injury sacrum: Wound Type: Pressure Injury Dressing Change: Mepilex right heel: Wound Type: Pressure Injury Therapies Physical Therapy: Eval and Treat Occupational Therapy: Eval and Treat Speech Therapy: Eval and Treat Problem/Diagnosis (1) Hypoxia: Status: Acute Code(s): R09.02 - Hypoxemia (2) SOB (shortness of breath): Status: Acute Code(s): R06.02 - Shortness of breath (3) Acute on chronic anemia: Status: Chronic Code(s): D64.9 - Anemia, unspecified Allergies/Procedures Done in Hospital Allergies venom-honey bee [bee venom (honey bee)] Allergy (Severe, Verified 05/12/23 10:46) Anaphylaxis Type of Care/Length of Stay Estimated LOS: More Than 30 Days Type of Care Needed: Intermediate Rehab Potential: Poor Prognosis: Poor Additional Orders/Day of Discharge Day of Discharge: 05/19/23 Dietary and Speech Recommendations Dietitian Recommendations/Changes: continue cardiac diet w/ 1750mL fluid restriction as indicated; Leland BID per pt request Discharge Plan Admission Admit Date/Time: 05/12/23 16:30 Attending Provider: Chuck Tellez Primary Care Provider: Ronak Pollard Consulting Providers: Danisha Harvey; Quique Donohue Discharge Orders/Prescriptions Prescriptions: New acetaminophen 325 mg Tablet 650 mg PO Q6H PRN PRN (Reason: Pain 1-10 Or Fever>100.7) Qty: 0 0RF sennosides-docusate sodium [Stool Softener-Stimulant Laxat] 8.6-50 mg Tablet 2 tab PO BID PRN PRN (Reason: Constipation) Qty: 0 0RF levofloxacin 750 mg Tablet 750 mg PO DAILY@0600 Qty: 5 0RF furosemide [Lasix] 40 mg tablet 40 mg PO BID Qty: 60 0RF Continued atorvastatin 80 mg tablet 80 mg PO DAILY Qty: 30 5RF lactulose 10 gram/15 mL solution 30 g PO BID PRN (Reason: constipation) olanzapine [Zyprexa] 15 mg tablet 15 mg PO QHS guaifenesin 400 mg tablet 400 mg PO TID fluticasone propionate 50 mcg/actuation spray,suspension 2 spray intranasal DAILY Rx Instructions: administer into each nostril loratadine 10 mg tablet 10 mg PO DAILY cholecalciferol (vitamin D3) 1,000 UNIT tablet 2,000 unit PO DAILY melatonin 3 MG tablet 3 mg PO QHS PRN (Reason: SLEEP ) tamsulosin 0.4 MG capsule 0.8 mg PO QHS Rx Instructions: 2 -0.4mg caps finasteride 5 MG tablet 5 mg PO QHS omeprazole 20 MG capsule 20 mg PO DAILY mineral oil Enema 133 ml [place] DAILY PRN (Reason: Constipation) Pulmicort Flexhaler 180 mcg/actuation Aerosol Powdr Breath Activated 2 inh INHALATION BID folic acid 1 MG tablet 1 mg PO DAILY multivitamin Tablet 1 tab PO DAILY losartan 50 mg tablet 50 mg PO DAILY bisacodyl 10 mg Suppository 10 mg [place] DAILY PRN (Reason: Constipation) thiamine HCl (vitamin B1) 100 MG tablet 100 mg PO DAILYCM divalproex [Depakote ER] 250 mg tablet extended release 24 hr 500 mg PO QHS furosemide 40 mg tablet 40 mg PO BID aspirin [Adult Low Dose Aspirin] 81 mg tablet,delayed release (DR/EC) 81 mg PO DAILY potassium chloride 20 mEq tablet extended release 20 meq PO BID Qty: 60 0RF sodium chloride 1,000 mg tablet,soluble 1,000 mg PO TID albuterol sulfate 90 mcg/actuation HFA aerosol inhaler 1 - 2 puff inhalation 4X/DAY PRN (Reason: Sob &/Or Wheezing) acetaminophen 500 mg capsule 500 mg PO Q6H PRN (Reason: fever) Rx Instructions: FEVER >99.4 ascorbic acid (vitamin C) 500 mg capsule, extended release 500 mg PO DAILY nystatin [Nyamyc] 100,000 unit/gram powder 1 applic TOPICAL .Q12 PRN (Reason: EXCORIATION) nicotine [Nicoderm CQ] 14 mg/24 hr patch 24 hour 1 patch transdermal DAILY Discontinued hydrocodone-acetaminophen 5-325 mg tablet 1 tab PO Q8H 1 Days Qty: 3 0RF Referrals / Follow Up: Ronak Pollard MD [Primary Care Provider] - Inocente Nichols MD [Med Staff - Associate Professor Of Art History] - Disposition Disposition (needs filled in before D/C Order can be placed): [facility]
--- NOTE | 2023-05-19 14:26 | PCM.DC.SUM ---
Providers Date of Admission: 05/12/23 Date of Discharge: 05/19/23 Primary Care Physician: Dr. Ronak Pollard MD Consultations 05/14/23 07:00 Consult: Onc/Wound/vamp cut out worker Routine Comment: Reason for Consult:: open area to coccyx, heels soft/discolored Reason For Visit: SOB / FATIGUE Diagnosis Discharge Diagnosis (1) Hypoxia: Status: Acute Code(s): R09.02 - Hypoxemia (2) SOB (shortness of breath): Status: Acute Code(s): R06.02 - Shortness of breath (3) Acute on chronic anemia: Status: Chronic Code(s): D64.9 - Anemia, unspecified Medications at Discharge Home Medications cholecalciferol (vitamin D3) 25 mcg (1,000 unit) tablet 2,000 unit PO DAILY supplement 02/22/19 finasteride 5 mg tablet 5 mg PO QHS prostate 02/22/19 melatonin 3 mg tablet 3 mg PO QHS PRN SLEEP 02/22/19 tamsulosin 0.4 mg capsule 0.8 mg PO QHS urinary issues 02/22/19 omeprazole 20 mg capsule,delayed release 20 mg PO DAILY ACID REFLUX 01/09/20 budesonide 180 mcg/actuation breath activated powder inhaler (Pulmicort Flexhaler) 2 inh inhalation BID WHEEZING/SHORTNESS OF BREATH 12/19/21 mineral oil 133 ml NE DAILY PRN Constipation 12/19/21 bisacodyl 10 mg rectal suppository 10 mg NE DAILY PRN Constipation 03/07/22 folic acid 1 mg tablet 1 mg PO DAILY SUPPLEMENT 03/07/22 losartan 50 mg tablet 50 mg PO DAILY BLOOD PRESSURE 03/07/22 multivitamin 1 tab PO DAILY supplement 03/07/22 thiamine HCl (vitamin B1) 100 mg tablet 100 mg PO DAILYCM supplement 03/07/22 furosemide 40 mg tablet 40 mg PO BID FLUID 08/11/22 atorvastatin 80 mg tablet 80 mg PO DAILY CHOLESTEROL #30 tabs 10/14/22 aspirin 81 mg tablet,delayed release (Adult Low Dose Aspirin) 81 mg PO DAILY HEALTH MAINTENANCE 01/21/23 divalproex 250 mg tablet,extended release 24 hr (Depakote ER) 500 mg PO QHS mental health 01/21/23 fluticasone propionate 50 mcg/actuation nasal spray,suspension 2 spray intranasal DAILY SINUS 01/21/23 guaifenesin 400 mg tablet 400 mg PO TID COUGH 01/21/23 lactulose 10 gram/15 mL oral solution 30 g PO BID PRN constipation 01/21/23 loratadine 10 mg tablet 10 mg PO DAILY ALLERGIES 01/21/23 olanzapine 15 mg tablet (Zyprexa) 15 mg PO QHS Mental disorder 01/21/23 potassium chloride 20 mEq tablet,extended release 20 meq PO BID SUPPLEMENT #60 tabs 01/26/23 albuterol sulfate 90 mcg/actuation aerosol inhaler 1 - 2 puff inhalation 4X/DAY PRN Sob &/Or Wheezing 02/03/23 sodium chloride 1,000 mg soluble tablet 1,000 mg PO TID SUPPLEMENT 02/03/23 acetaminophen 500 mg capsule 500 mg PO Q6H PRN fever 05/12/23 ascorbic acid (vitamin C) 500 mg capsule,extended release 500 mg PO DAILY 05/12/23 nystatin 100,000 unit/gram topical powder (Nyamyc) 1 applic topical .Q12 PRN EXCORIATION 05/12/23 nicotine 14 mg/24 hr daily transdermal patch (Nicoderm CQ) 1 patch transdermal DAILY smoking 05/14/23 acetaminophen 325 mg tablet 650 mg (2 x 325 mg) PO Q6H PRN PRN Pain 1-10 Or Fever>100.7 #0 tabs 05/19/23 furosemide 40 mg tablet (Lasix) 40 mg PO BID #60 tabs 05/19/23 levofloxacin 750 mg tablet 750 mg PO DAILY@0600 #5 tabs 05/19/23 sennosides 8.6 mg-docusate sodium 50 mg tablet (Stool Softener-Stimulant Laxative) 2 tab PO BID PRN PRN Constipation #0 tabs 05/19/23 Hospital Course Summary of Care Provided Minutes Spent on Discharge: 35 Hospital Course: 73-year-old gentleman admitted with progressive shortness of breath 1. Acute hypoxia ? Multifactorial including acute on chronic congestive heart failure, pneumonia with Pseudomonas as well as pulmonary hypertension admitted to monitored bed with treatment of underlying condition 2. Acute on chronic congestive heart failure with preserved ejection fraction ? Echo demonstrated EF of 60%. Patient managed with diuretics, strict input and output, daily weight as well as supplemental oxygen 3. Pulmonary hypertension ? Echo demonstrated RVSP of 92 mmHg patient managed with supplemental oxygen and breathing treatment as needed 4. Pneumonia with Pseudomonas ? Patient managed with Levaquin 5. Tobacco dependence - Counseled on cessation, offered nicotine patch for tobacco cravings 6. COPD ? Breathing treatment as needed 7. History of adenocarcinoma involving the lung ? Currently remission 8. Anemia - Secondary to chronic disorder monitoring H&H and transfuse if patient becomes symptomatic or hemoglobin falls below 7 9. Chronic back pain with recent compression fractures ? Patient discharged on Tylenol 10. Physical deconditioning - Requested for PT OT eval and health and social care teacher to assist with discharge planning 11. BPH ? Patient is on tamsulosin discontinued 12. GERD ? On PPI 13. Bipolar disorder ? Patient is on Depakote and Zyprexa did continue 14. Hypertension - Blood pressure controlled, home medications continued with dose adjustment as needed 15. Paroxysmal A-fib ? Rate controlled, patient not on systemic anticoagulation due to frequent falls 16. Chronic constipation ? Bowel regimen as needed DVT: SCDs Physical Exam Narrative GENERAL: cooperative HEENT: Atraumatic; normocephalic EYES; Anicteric, Normal Conjunctiva NECK; supple, normal thyroid, RESPIRATORY: Diminished to auscultation CARDIOVASCULAR: Regular S1 S2, GI: soft, normoactive bowel sounds, : No Renal angle tenderness; EXTREMITIES: No edema, no clubbing, MUSCULOSKELETAL: no muscle wasting NEURO: Awake; no lateralizing signs. SKIN: No Rash PSYCH; Flat affect Medical Records Data Medical Nutrition Assessment Dietitian: Malnutrition Criteria Met Start: 05/13/23 14:21 Freq: Status: Active Protocol: Document 05/18/23 11:04 AG (Rec: 05/18/23 11:04 AG Desktop) Nutrition Malnutrition Evidence of Malnutrition Exists Yes Malnutrition (moderate): Chronic Evidenced By Suboptimal Energy Intake ( Moderate),Weight Loss ( Moderate),Physical Changes ( Mild) Clinical Problem Chronic Disease or Condition Related Malnutrition Etiology moderate, chronic malnutrition related to inadequate energy intake Signs/Symptoms as evidenced by unintentional 23% wt loss x 3 months, estimated PO intake meeting < 75% of estimated energy needs > 3 months, mild muscle wasting/fat loss evident per physical exam in orbital, clavicle, acromion areas Status Active Problem Recommendation Dietitian Recommendations/Changes continue cardiac diet w/ 1750mL fluid restriction as indicated; Leland BID per pt request Weight / BMI Weight Weight: 84 kg Body Mass Index (BMI) 25.1 ABG / Lab / Microbiology Data 05/19/23 07:00 05/19/23 06:58 Laboratory: Laboratory Results - last 24 hr 05/19/23 06:58: Sodium 135 L, Potassium 3.6, Chloride 95 L, Carbon Dioxide 38.0 H, Anion Gap 2 L, BUN 10, Creatinine 0.50 L, Estim Creat Clear Calc 70.06, Est GFR (MDRD) Af Amer 209, Est GFR (MDRD) Non-Af 173, BUN/Creatinine Ratio 20.1 H, Glucose 113 H, Calcium 8.9 05/19/23 07:00: WBC 10.4, RBC 2.75 L, Hgb 8.6 L, Hct 27.7 L, MCV 100.7 H, MCH 31.3, MCHC 31.0 L, RDW Std Deviation 56.8 H, RDW Coeff of Fredi 15.2 H, Plt Count 484 H, MPV 9.0, Immature Gran % (Auto) 1.400 H, Neut % (Auto) 74.6 H, Lymph % (Auto) 12.0 L, [place] % (Auto) 9.9, Eos % (Auto) 1.4, Baso % (Auto) 0.7, Absolute Neuts (auto) 7.8 H, Absolute Lymphs (auto) 1.25, Nucleated RBC % 0 Microbiology: Microbiology 05/13/23 22:58 Blood Culture (Wb) - Anticubital Right Blood Culture - Final No growth in 5 days. 05/13/23 23:03 Blood Culture (Wb) - Right Hand Blood Culture - Final No growth in 5 days. 05/13/23 22:00 Sputum, Expectorated/Coughed Gram Stain - Final 05/13/23 22:00 Sputum, Expectorated/Coughed Respiratory Culture - Final Meth. resistant Staph. aureus Pseudomonas aeruginosa 05/12/23 11:01 Blood Culture (Wb) - Right Wrist Blood Culture - Final No growth in 5 days. 05/12/23 10:44 Blood Culture (Wb) - Left Forearm Blood Culture - Final No growth in 5 days. 05/14/23 04:33 Urine, Clean Catch Urine Culture - Final Enterococcus faecalis 05/12/23 11:29 Urine, Catheterized Urine Culture - Final Culture exhibits no growth. 05/13/23 23:00 Nasal Secretion SARS-CoV-2 & FLU Antigen (Rapid) - Final 10/24/23 17:25 Mucosa - Nose Respiratory Panel (PCR) - Final 05/12/23 13:20 Stool Stool Occult Blood (NICOLETTE) - Final 05/12/23 11:01 Nasal Secretion SARS-CoV-2 & FLU Antigen (Rapid) - Final D/C Instructions Discharge Diet: No restrictions Discharge Activity: Return to Normal Activity Call your doctor if you observe: Fever of 101 or Higher, Shortness of breath, Fainting spells and Chest pain Meaningful Use Info Meaningful Use Diagnoses (Choose all that apply): CHF CHF ELADIO/ARB ordered at discharge?: Yes Documented LVEF (%): 60 Discharge Plan Admission Admit Date/Time: 05/12/23 16:30 Attending Provider: Chuck Tellez Primary Care Provider: Ronak Pollard Consulting Providers: Danisha Harvey; Quique Donohue Discharge Orders/Prescriptions Prescriptions: New acetaminophen 325 mg Tablet 650 mg PO Q6H PRN PRN (Reason: Pain 1-10 Or Fever>100.7) Qty: 0 0RF sennosides-docusate sodium [Stool Softener-Stimulant Laxat] 8.6-50 mg Tablet 2 tab PO BID PRN PRN (Reason: Constipation) Qty: 0 0RF levofloxacin 750 mg Tablet 750 mg PO DAILY@0600 Qty: 5 0RF furosemide [Lasix] 40 mg tablet 40 mg PO BID Qty: 60 0RF Continued atorvastatin 80 mg tablet 80 mg PO DAILY Qty: 30 5RF lactulose 10 gram/15 mL solution 30 g PO BID PRN (Reason: constipation) olanzapine [Zyprexa] 15 mg tablet 15 mg PO QHS guaifenesin 400 mg tablet 400 mg PO TID fluticasone propionate 50 mcg/actuation spray,suspension 2 spray intranasal DAILY Rx Instructions: administer into each nostril loratadine 10 mg tablet 10 mg PO DAILY cholecalciferol (vitamin D3) 1,000 UNIT tablet 2,000 unit PO DAILY melatonin 3 MG tablet 3 mg PO QHS PRN (Reason: SLEEP ) tamsulosin 0.4 MG capsule 0.8 mg PO QHS Rx Instructions: 2 -0.4mg caps finasteride 5 MG tablet 5 mg PO QHS omeprazole 20 MG capsule 20 mg PO DAILY mineral oil Enema 133 ml NE DAILY PRN (Reason: Constipation) Pulmicort Flexhaler 180 mcg/actuation Aerosol Powdr Breath Activated 2 inh INHALATION BID folic acid 1 MG tablet 1 mg PO DAILY multivitamin Tablet 1 tab PO DAILY losartan 50 mg tablet 50 mg PO DAILY bisacodyl 10 mg Suppository 10 mg NE DAILY PRN (Reason: Constipation) thiamine HCl (vitamin B1) 100 MG tablet 100 mg PO DAILYCM divalproex [Depakote ER] 250 mg tablet extended release 24 hr 500 mg PO QHS furosemide 40 mg tablet 40 mg PO BID aspirin [Adult Low Dose Aspirin] 81 mg tablet,delayed release (DR/EC) 81 mg PO DAILY potassium chloride 20 mEq tablet extended release 20 meq PO BID Qty: 60 0RF sodium chloride 1,000 mg tablet,soluble 1,000 mg PO TID albuterol sulfate 90 mcg/actuation HFA aerosol inhaler 1 - 2 puff inhalation 4X/DAY PRN (Reason: Sob &/Or Wheezing) acetaminophen 500 mg capsule 500 mg PO Q6H PRN (Reason: fever) Rx Instructions: FEVER >99.4 ascorbic acid (vitamin C) 500 mg capsule, extended release 500 mg PO DAILY nystatin [Nyamyc] 100,000 unit/gram powder 1 applic TOPICAL .Q12 PRN (Reason: EXCORIATION) nicotine [Nicoderm CQ] 14 mg/24 hr patch 24 hour 1 patch transdermal DAILY Discontinued hydrocodone-acetaminophen 5-325 mg tablet 1 tab PO Q8H 1 Days Qty: 3 0RF Referrals / Follow Up: Ronak Pollard MD [Primary Care Provider] - Inocente Nichols MD [Med Staff - Engine Assembler] - Disposition Disposition (needs filled in before D/C Order can be placed): [facility] Charges/Coding Visit Charges Inpatient E&M: 48313 Disch Hosp >30min
--- NOTE | 2023-05-19 15:15 | NURSING ---
Report called to Radha at [facility].
--- NOTE | 2023-05-19 15:29 | CASEMGMT ---
Discharge Planning Discharge orders, signed med list, and transport time sent to [facility] via [facility]. [facility] will transport patient by cot between 3:30-4p. Nursing, SW, patient, and his sister updated. Radha Means, Discharge Planning Asst.
== END 2023-05-19 15:37 | disposition skilled nursing facility (03) | DRG 291 ==
LOC: ED 13:24 → PCU 14:44
PROVIDERS: Family Medicine; Hospitalist; Admitting Provider Internal Medicine; Emergency Provider Emergency Medicine; PCP Family Medicine; Visit Provider Internal Medicine
DX: I11.0 Hypertensive heart disease with heart failure (principal); I50.33 Acute on chronic diastolic (congestive) heart failure; J15.1 Pneumonia due to Pseudomonas; E44.0 Moderate protein-calorie malnutrition; J47.0 Bronchiectasis with acute lower respiratory infection; J44.0 Chronic obstructive pulmonary disease with (acute) lower respiratory infection; E87.1 Hypo-osmolality and hyponatremia; I27.20 Pulmonary hypertension, unspecified; F25.9 Schizoaffective disorder, unspecified; L89.312 Pressure ulcer of right buttock, stage 2; I48.0 Paroxysmal atrial fibrillation; F31.9 Bipolar disorder, unspecified; D64.9 Anemia, unspecified; E78.5 Hyperlipidemia, unspecified; I25.10 Atherosclerotic heart disease of native coronary artery without angina pectoris; F17.210 Nicotine dependence, cigarettes, uncomplicated; K21.9 Gastro-esophageal reflux disease without esophagitis; K59.09 Other constipation; Z80.1 Family history of malignant neoplasm of trachea, bronchus and lung; G89.29 Other chronic pain; Z79.51 Long term (current) use of inhaled steroids; Z79.82 Long term (current) use of aspirin; Z80.42 Family history of malignant neoplasm of prostate; S32.019D Unspecified fracture of first lumbar vertebra, subsequent encounter for fracture with routine healing; Z85.118 Personal history of other malignant neoplasm of bronchus and lung; N40.0 Benign prostatic hyperplasia without lower urinary tract symptoms
CPT/HCPCS: 36415; 36600; 71045; 80048; 80053; 80202; 81001; 82274; 82607; 82728; 82803; 83540; 83550; 83605; 83735; 83880; 84100; 84145; 84484; 85014; 85018; 85025; 87040; 87070; 87077; 87086; 87088; 87184; 87186; 87205; 87428; 87633; 93005; 93306; 94002; 94640; 94668; 94762; 97110; 97162; 97166; 97530; 97535; 97802; 97803; 99252; 99285; J7030; J7040; J7050; A4216; G0463; J1940; J2916

== ENCOUNTER → 2023-05-21 | Outpatient (REF) | payer MEDICARE, MEDICAID, SELFPAY ==
[2023-05-21 09:48] LABS: Vitamin D,25 Hydroxy 64.2 ng/mL
[2023-05-21 09:51] LABS: Anion Gap 5 (5-15); BUN 11 mg/dL (7-18); BUN/Creat Ratio 18.2 RATIO (10-20); Calcium,Total 8.7 mg/dL (8.5-10.1); Chloride 96 mmol/L (98-107); EST Glomerular Filtration Rate 139 mL/min (>60); Est Glom Filt Rate - Afr Amer 168 mL/min (>60); Glucose 128 mg/dL (74-106); Potassium 3.6 mmol/L (3.5-5.1); Sodium Level 134 mmol/L (136-145)
[2023-05-21 09:52] LABS: Hematocrit 27.6 % (40-54); Hemoglobin 8.6 g/dL (13.0-16.5); Mean Corp Hgb Conc 31.2 g/dL (32-36); Mean Corpuscular Hgb 31.4 pg (27.0-32.0); Mean Corpuscular Volume 100.7 fL (80-94); Mean Platelet Vol. 9.3 fl (6.2-12.0); Platelet Count 496 K/mm3 (150-450); RBC Distribution Width CV 15.7 % (11.6-14.6); RBC Distribution Width SD 57.1 fl (35.1-43.9); Red Blood Count 2.74 M/mm3 (4.6-6.2); White Blood Count 11.5 K/mm3 (4.4-11.0)
[2023-05-22 05:37] LABS: AST(SGOT) 22 U/L (15-37); Alanine Aminotransfer ALT/SGPT 18 U/L (16-61)
== END ==
LOC: OLS.SW 05:00
PROVIDERS: PCP Family Medicine; Visit Provider Family Medicine
DX: D64.9 Anemia, unspecified (principal); I10 Essential (primary) hypertension; E55.9 Vitamin D deficiency, unspecified; F10.20 Alcohol dependence, uncomplicated
CPT/HCPCS: 36415; 80048; 82140; 82306; 84450; 84460; 85027

== ENCOUNTER → 2023-05-28 | Outpatient (REF) | payer MEDICARE, MEDICAID, SELFPAY | LOC: OLS.SW 05:00 | PROVIDERS: PCP Family Medicine; Visit Provider Family Medicine | DX: F10.20 Alcohol dependence, uncomplicated (principal) | CPT/HCPCS: 36415; 82140 ==

== ENCOUNTER → 2023-06-04 | Outpatient (REF) | payer MEDICARE, MEDICAID, SELFPAY | LOC: OLS.SW 05:00 | PROVIDERS: PCP Family Medicine; Visit Provider Family Medicine | DX: F10.20 Alcohol dependence, uncomplicated (principal) | CPT/HCPCS: 36415; 82140 ==

== ENCOUNTER → 2023-06-12 | Outpatient (REF) | payer MEDICARE, MEDICAID, SELFPAY | LOC: OLS.SW 05:00 | PROVIDERS: PCP Family Medicine; Visit Provider Family Medicine | DX: F10.20 Alcohol dependence, uncomplicated (principal) | CPT/HCPCS: 36415; 82140 ==

== ENCOUNTER → 2023-06-18 | Outpatient (REF) | payer MEDICARE, MEDICAID, SELFPAY | LOC: OLS.SW 05:00 | PROVIDERS: PCP Family Medicine; Visit Provider Family Medicine | DX: F10.20 Alcohol dependence, uncomplicated (principal) | CPT/HCPCS: 36415; 82140 ==

== ENCOUNTER → 2023-06-19 | Outpatient (REF) | payer MEDICARE, MEDICAID, SELFPAY ==
[2023-06-19 09:06] LABS: Hematocrit 23.6 % (40-54); Hemoglobin 7.5 g/dL (13.0-16.5); Mean Corp Hgb Conc 31.8 g/dL (32-36); Mean Corpuscular Volume 97.5 fL (80-94); Mean Platelet Vol. 9.4 fl (6.2-12.0); Platelet Count 346 K/mm3 (150-450); RBC Distribution Width CV 17.2 % (11.6-14.6); RBC Distribution Width SD 60.9 fl (35.1-43.9); Red Blood Count 2.42 M/mm3 (4.6-6.2); White Blood Count 9.6 K/mm3 (4.4-11.0)
[2023-06-19 09:12] LABS: ALB/GLOB Ratio 0.5 RATIO (0.9-2.4); AST(SGOT) 13 U/L (15-37); Alanine Aminotransfer ALT/SGPT 18 U/L (16-61); Albumin, Serum 2.4 g/dL (3.2-5.0); Alkaline Phosphatase 176 U/L (45-117); Anion Gap 7 (5-15); BUN 12 mg/dL (7-18); BUN/Creat Ratio 23.7 RATIO (10-20); Calcium,Total 8.5 mg/dL (8.5-10.1); Chloride 87 mmol/L (98-107); Creatinine, Serum 0.51 mg/dL (0.70-1.30); EST Glomerular Filtration Rate 170 mL/min (>60); Est Glom Filt Rate - Afr Amer 205 mL/min (>60); Globulin 4.5 g/dL (2.2-4.2); Glucose 142 mg/dL (74-106); Potassium 5.1 mmol/L (3.5-5.1); Protein, Total 6.9 g/dL (6.4-8.2); Sodium Level 123 mmol/L (136-145)
[2023-06-19 09:20] LABS: Vitamin D,25 Hydroxy 52.9 ng/mL
== END ==
LOC: OLS.SW 05:00
PROVIDERS: PCP Family Medicine; Visit Provider Family Medicine
DX: D64.9 Anemia, unspecified (principal); E87.1 Hypo-osmolality and hyponatremia; E55.9 Vitamin D deficiency, unspecified; I48.0 Paroxysmal atrial fibrillation; F10.20 Alcohol dependence, uncomplicated
CPT/HCPCS: 36415; 80053; 82140; 82306; 85027

== ENCOUNTER → 2023-06-25 | Outpatient (REF) | payer MEDICARE, MEDICAID, SELFPAY | LOC: OLS.SW 06:20 | PROVIDERS: PCP Family Medicine; Visit Provider Family Medicine | DX: F10.20 Alcohol dependence, uncomplicated (principal) | CPT/HCPCS: 36415; 82140 ==

== ENCOUNTER → 2023-06-29 | Outpatient (REF) | payer MEDICARE, MEDICAID, SELFPAY ==
[2023-06-29 09:09] LABS: Hematocrit 28.2 % (40-54); Hemoglobin 8.5 g/dL (13.0-16.5); Mean Corp Hgb Conc 30.1 g/dL (32-36); Mean Corpuscular Hgb 30.6 pg (27.0-32.0); Mean Corpuscular Volume 101.4 fL (80-94); Mean Platelet Vol. 8.8 fl (6.2-12.0); POSITIVE MORPHOLOGY YES; Platelet Count 442 K/mm3 (150-450); RBC Distribution Width CV 17.6 % (11.6-14.6); RBC Distribution Width SD 66.4 fl (35.1-43.9); Red Blood Count 2.78 M/mm3 (4.6-6.2); White Blood Count 10.1 K/mm3 (4.4-11.0)
[2023-06-29 09:12] LABS: Scan Indicated on CBC? Y/N YES- FLAGS NOTED
[2023-06-29 09:36] LABS: Anion Gap 5 (5-15); BUN 13 mg/dL (7-18); BUN/Creat Ratio 21.1 RATIO (10-20); Calcium,Total 9.5 mg/dL (8.5-10.1); Chloride 91 mmol/L (98-107); Creatinine, Serum 0.62 mg/dL (0.70-1.30); EST Glomerular Filtration Rate 136 mL/min (>60); Est Glom Filt Rate - Afr Amer 164 mL/min (>60); Glucose 110 mg/dL (74-106); Potassium 4.5 mmol/L (3.5-5.1); Sodium Level 128 mmol/L (136-145)
[2023-06-29 09:45] LABS: Differential Comment SCANNED
== END ==
LOC: OLS.SW 05:00
PROVIDERS: PCP Family Medicine; Visit Provider Family Medicine
DX: E87.1 Hypo-osmolality and hyponatremia (principal)
CPT/HCPCS: 36415; 80048; 85027

== ENCOUNTER → 2023-07-02 | Outpatient (REF) | payer MEDICARE, MEDICAID, SELFPAY | LOC: OLS.SW 04:00 | PROVIDERS: PCP Family Medicine; Referring Provider Family Medicine; Visit Provider Family Medicine | DX: F10.20 Alcohol dependence, uncomplicated (principal) | CPT/HCPCS: 36415; 82140 ==

== ENCOUNTER → 2023-07-09 | Outpatient (REF) | payer MEDICARE, MEDICAID, SELFPAY ==
--- OUTSIDE RECORDS SUMMARY | 2023-07-09 05:37 | XMS RPT_ITS | CCD ---
Author Name Unknown Address [id number] [place] [address] Organization [facility] Care Team Providers Care Machine Assembler Supervisor Name Role Phone Simone RUBIN, Inocente Curtis Primary Care Provider Wes RUBIN MD, Nghia Unavailable WES RUBIN, NGHIA Referring Unavailable NGHIA HARVEY MD Attending Unavailable INOCENTE NICHOLS Primary Care Unavailable INOCENTE NICHOLS Primary Care Unavailable INOCENTE NICHOLS Attending Unavailable INOCENTE NICHOLS Primary Care Unavailable WES RUBIN, NGHIA Referring Unavailable INOCENTE NICHOLS Primary Care Unavailable NGHIA HARVEY MD Referring Unavailable INOCENTE NICHOLS Referring Unavailable INOCENTE NICHOLS Primary Care Unavailable INOCENTE NICHOLS Attending Unavailable INOCENTE NICHOLS Primary Care Unavailable INOCENTE NICHOLS Attending Unavailable INOCENTE NICHOLS Primary Care Unavailable INOCENTE NICHOLS Primary Care Unavailable INOCENTE NICHOLS Attending Unavailable INOCENTE NICHOLS Primary Care Unavailable WES RUBIN, NGHIA Attending Unavailable WES RUBIN, NGHIA Referring Unavailable INOCENTE NICHOLS Primary Care Unavailable INOCENTE NICHOLS Attending Unavailable INOCENTE NICHOLS Primary Care Unavailable INOCENTE NICHOLS Attending Unavailable INOCENTE NICHOLS Referring Unavailable GENESIS WANG Attending Unavailable INOCENTE NICHOLS Primary Care Unavailable WES RUBIN, NGHIA Referring Unavailable INOCENTE NICHOLS Primary Care Unavailable INOCENTE NICHOLS Primary Care Unavailable WES RUBIN, NGHIA Attending Unavailable WES RUBIN, DACLIFFUNG Referring Unavailable WES RUBIN, NGHIA Referring Unavailable INOCENTE NICHOLS Primary Care Unavailable WES RUBIN, DACLIFFUNG Attending Unavailable NICHOLS, GEENA Referring Unavailable NICHOLS, GEENA Primary Care Unavailable NICHOLS, GEENA Attending Unavailable NICHOLS, GEENA Primary Care Unavailable WES RUBIN, DAESUNG Attending Unavailable WES RUBIN, DACLIFFUNG Referring Unavailable NICHOLS, GEENA Primary Care Unavailable WES RUBIN, DACLIFFUNG Attending Unavailable NICHOLS, GEENA Primary Care Unavailable WES RUBIN, DACLIFFUNG Referring Unavailable NICHOLS, GEENA Primary Care Unavailable WES RUBIN, DACLIFFUNG Referring Unavailable WES RUBIN, DACLIFFUNG Attending Unavailable SIMONE, GEENA Primary Care Unavailable WES RUBIN, DACLIFFUNG Referring Unavailable WES RUBIN, DACLIFFUNG Referring Unavailable NICHOLS, GEENA Primary Care Unavailable WES RUBIN, YAKOVUNG Referring Unavailable NICHOLS, GEENA Primary Care Unavailable WES RUBIN, DACLIFFUNG Attending Unavailable NICHOLS, GEENA Primary Care Unavailable WES RUBIN, YAKOVUNG Referring Unavailable NICHOLS, GEENA Primary Care Unavailable NICHOLS, GEENA Referring Unavailable NICHOLS, GEENA Referring Unavailable NICHOLS, GEENA Primary Care Unavailable NICHOLS, GEENA Referring Unavailable NICHOLS, GEENA Primary Care Unavailable Allergies Allergy Classification Reported Allergen(s) Allergy Type Date of Onset Reaction(s) Facility (6 sources) Bee Venom Protein (Honey Bee); Translations: [BEE VENOM PROTEIN (HONEY BEE)] Propensity to adverse reactions to drug 04-01-2023 Unknown [facility] Work Phone: Medications Current Medications Medication Drug Class(es) Dates Sig (Normalized) Sig (Original) acetaminophen 325 mg / HYDROcodone bitartrate 5 mg oral tablet (20 sources) Opioid Agonist Start: 02-27-2022 End: 03-06-2022 HYDROcodone-acetami nophen (NORCO) 5-325 mg per tablet Indications: pain TAKE 1 PILL UP TO EVERY 6 HOURS NEEDED FOR SEVERE ACUTE BREAKTHROUGH PAIN. DO NOT EXCEED 4 PILLS IN A 24 HOUR PERIOD. 28 tablet 0 02/27/2022 03/06/2022 Active Completed/Discontinued Medications Medication Drug Class(es) Dates Sig (Normalized) Sig (Original) [id number] 200 actuat albuterol 0.09 mg/actuat metered dose inhaler (20 sources) beta2-Adrenergic Agonist Start: 08-17-2020 take 1-2 puff(s) by inhalation four times daily as needed albuterol HFA (PROVENTIL HFA, VENTOLIN HFA) 90 mcg/actuation inhaler Inhale 1-2 Puffs as instructed four times daily as needed. 0 08/17/2020 Active Problems Active Problems Problem Classification Problem Date Documented Da te Episodic/Chronic Alcohol-related disorders (20 sources) Alcohol dependence; Translations: [Alcohol dependence, uncomplicated] Onset: 2 03-19-2022 Chronic Cancer of bronchus; lung (20 sources) Adenocarcinoma of left lung; Translations: [Malignant neoplasm of unspecified part of left bronchus or lung] Onset: 1 01-23-2021 Chronic Cardiac dysrhythmias (16 sources) Paroxysmal atrial fibrillation; Translations: [Paroxysmal atrial fibrillation] Onset: 3 12-26-2022 Chronic Chronic obstructive pulmonary disease and bronchiectasis (20 sources) Chronic obstructive lung disease; Translations: [Chronic obstructive pulmonary disease, unspecified] Onset: 1 11-30-2020 Chronic Chronic ulcer of skin (20 sources) Pressure ulcer of buttock; Translations: [Pressure ulcer of unspecified buttock, unspecified stage] Onset: 2 Chronic Coagulation and hemorrhagic disorders (20 sources) Thrombocytopenic disorder; Translations: [Thrombocytopenia, unspecified] Onset: 3 Chronic Coronary atherosclerosis and other heart disease (20 sources) Coronary atherosclerosis; Translations: [Atherosclerotic heart disease of [place] coronary artery without angina pectoris] Onset: 1 11-30-2020 Chronic Esophageal disorders (20 sources) Gastroesophageal reflux disease without esophagitis; Translations: [Gastro-esophageal reflux disease without esophagitis] Onset: 1 11-30-2020 Chronic Essential hypertension (20 sources) Essential hypertension; Translations: [Essential (primary) hypertension] Onset: 2 Chronic Genitourinary symptoms and ill-defined conditions (20 sources) Urinary incontinence; Translations: [Unspecified urinary incontinence] Onset: 1 11-30-2020 Chronic Hyperplasia of prostate (20 sources) Urinary frequency due to benign prostatic hypertrophy; Translations: [Benign prostatic hyperplasia with lower urinary tract symptoms] Onset: 1 11-30-2020 Chronic Immunizations and screening for infectious disease (2 sources) Needs influenza immunization; Translations: [Encounter for immunization] Episodic Mood disorders (20 sources) Bipolar disorder; Translations: [Bipolar disorder, unspecified] Onset: 1 11-30-2020 Chronic Open wounds of extremities (1 source) Injury of lower extremity; Translations: [Unspecified open wound, right lower leg, subsequent encounter] Episodic Other aftercare (2 sources) Radiotherapy follow-up; Translations: [Encounter for follow-up examination after completed treatment for conditions other than malignant neoplasm] Episodic Other connective tissue disease (3 sources) Trochanteric bursitis of left hip; Translations: [Trochanteric bursitis, left hip] Episodic Other connective tissue disease (2 sources) Trochanteric bursitis of right hip; Translations: [Trochanteric bursitis, right hip] Episodic Other diseases of veins and lymphatics (20 sources) Lymphedema; Translations: [Lymphedema, not elsewhere classified] Onset: 1 11-30-2020 Chronic Other diseases of veins and lymphatics (1 source) Lymphedema, not elsewhere classified; Translations: [Lymphedema] Onset: 1 Chronic Other ear and sense organ disorders (1 source) Impacted cerumen in left ear; Translations: [Impacted cerumen, left ear] 04-21-2023 Episodic Other gastrointestinal disorders (1 source) Constipation; Translations: [Constipation, unspecified] Episodic Other lower respiratory disease (3 sources) Multiple nodules of lung; Translations: [Other nonspecific abnormal finding of lung field] 02-18-2023 Episodic Other nutritional; endocrine; and metabolic disorders (20 sources) Obese class I; Translations: [Obesity, unspecified] Onset: 1 11-30-2020 Chronic Other nutritional; endocrine; and metabolic disorders (20 sources) Obese class II; Translations: [Obesity, unspecified] Onset: 1 03-27-2021 Chronic Other screening for suspected conditions (not mental disorders or infectious disease) (3 sources) Imaging of thorax abnormal; Translations: [Abnormal findings on diagnostic imaging of other specified body structures] Onset: 2 Chronic Other upper respiratory disease (1 source) Other seasonal allergic rhinitis; Translations: [Seasonal allergic rhinitis, unspecified trigger] Onset: 3 Chronic Other upper respiratory infections (2 sources) Chronic sinusitis; Translations: [Chronic sinusitis, unspecified] Chronic Peripheral and visceral atherosclerosis (17 sources) Peripheral vascular disease; Translations: [Peripheral vascular disease, unspecified] Onset: 3 12-26-2022 Chronic Pulmonary heart disease (20 sources) 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; Translations: [Pulmonary hypertension due to lung diseases and hypoxia] Onset: 2 Chronic Schizophrenia and other psychotic disorders (16 sources) Schizoaffective disorder; Translations: [Schizoaffective disorder, unspecified] Onset: 3 12-26-2022 Chronic Skin and subcutaneous tissue infections (2 sources) Cellulitis of lower leg; Translations: [Cellulitis of right lower limb] Episodic Spondylosis; intervertebral disc disorders; other back problems (3 sources) Lumbar spondylosis; Translations: [Spondylosis without myelopathy or radiculopathy, lumbar region] Chronic Substance-related disorders (20 sources) Tobacco user; Translations: [Nicotine dependence, unspecified, uncomplicated] Onset: 1 11-30-2020 Chronic Viral infection (1 source) Disease caused by 2019-nCoV; Translations: [COVID-19] Episodic Past or Other Problems Problem Classification Problem Date Documented Date Episodic/Chronic Cardiac dysrhythmias (20 sources) Bradycardia; Translations: [Bradycardia, unspecified] Onset: 12-06-2021 12-06-2021 Episodic Deficiency and other anemia (9 sources) Anemia; Translations: [Anemia, unspecified] Onset: 02-27-2023 02-27-2023 Episodic Deficiency and other anemia (1 source) Anemia, unspecified; Translations: [Anemia, unspecified type] Onset: 02-27-2023 Episodic Fluid and electrolyte disorders (20 sources) Hyponatremia; Translations: [Hypo-osmolality and hyponatremia] Onset: 03-19-2022 03-19-2022 Episodic Malaise and fatigue (20 sources) Asthenia; Translations: [Other malaise] Onset: 11-29-2021 Episodic Mycoses (2 sources) Onychomycosis due to dermatophyte ; Translations: [Tinea unguium] Onset: 12-26-2022 04-01-2023 Episodic Neoplasms of unspecified nature or uncertain behavior (5 sources) Neoplasm of lung ; Translations: [Neoplasm of unspecified behavior of respiratory system] Onset: 10-01-2022 Episodic Other and unspecified benign neoplasm (20 sources) History of polyp of colon; Translations: [Personal history of colonic polyps] Onset: 03-27-2021 03-27-2021 Episodic Other injuries and conditions due to external causes (20 sources) H/O: hip fracture; Translations: [Personal history of (healed) traumatic fracture] Onset: 11-29-2021 Episodic Other lower respiratory disease (1 source) Other nonspecific abnormal finding of lung field; Translations: [Lung nodules] Onset: 02-27-2023 Episodic Other non-traumatic joint disorders (20 sources) Hip pain; Translations: [Pain in right hip] Onset: 11-30-2020 11-30-2020 Episodic Spondylosis; intervertebral disc disorders; other back problems (20 sources) Chronic low back pain; Translations: [Chronic bilateral low back pain] Onset: 11-30-2020 11-30-2020 Episodic Results Test Name Value Interpretation Reference Range Facil ity Vital Signs Date Time Vital Sign Value Performing Clinician Faci lity 04-21-2023 09:53-0400 Body temperature 98.91 [degF] Inocente Nichols MD Work Phone: [facility] 04-21-2023 09:53-0400 Diastolic blood pressure 62 mm[Hg] Inocente Nichols MD Work Phone: [facility] 04-21-2023 09:53-0400 Heart rate 48 /min Inocente Nichols MD Work Phone: [facility] 04-21-2023 09:53-0400 Respiratory rate 24 /min Inocente Nichols MD Work Phone: [facility] 04-21-2023 09:53-0400 SaO2% (BldA) [Mass fraction] 94 % Inocente Nichols MD Work Phone: [facility] 04-21-2023 09:53-0400 Systolic blood pressure 136 mm[Hg] Inocente Nichols MD Work Phone: [facility] 02-27-2023 11:37-0400 Body temperature 98.4 [degF] Inocente Nichols MD Work Phone: [facility] 02-27-2023 11:37-0400 Diastolic blood pressure 69 mm[Hg] Inocente Nichols MD Work Phone: [facility] 02-27-2023 11:37-0400 Heart rate 46 /min Inocente Nichols MD Work Phone: [facility] 02-27-2023 11:37-0400 Respiratory rate 20 /min Inocente Nichols MD Work Phone: [facility] 02-27-2023 11:37-0400 Systolic blood pressure 136 mm[Hg] Inocente Nichols MD Work Phone: [facility] 11-13-2022 18:52-0400 Body temperature 98.49 [degF] Inocente Nichols MD Work Phone: [facility] 11-13-2022 18:52-0400 Body weight 108.41 kg Inocente Nichols MD Work Phone: [facility] 11-13-2022 18:52-0400 Diastolic blood pressure 70 mm[Hg] Inocente Nichols MD Work Phone: [facility] 11-13-2022 18:52-0400 Heart rate 56 /min Inocente Nichols MD Work Phone: [facility] 11-13-2022 18:52-0400 Respiratory rate 24 /min Inocente Nichols MD Work Phone: [facility] 11-13-2022 18:52-0400 SaO2% (BldA) [Mass fraction] 92 % Inocente Nichols MD Work Phone: [facility] 11-13-2022 18:52-0400 Systolic blood pressure 146 mm[Hg] Inocente Nichols MD Work Phone: [facility] 11-10-2022 15:09-0400 Diastolic blood pressure 78 mm[Hg] Nghia Harvey MD, MD Work Phone: [facility] 11-10-2022 15:09-0400 Heart rate 49 /min Nghia Harvey MD, MD Work Phone: [facility] 11-10-2022 15:09-0400 Systolic blood pressure 180 mm[Hg] Nghia Harvey MD, MD Work Phone: [facility] 11-10-2022 15:06-0400 Body temperature 97.81 [degF] Nghia Harvey MD, MD Work Phone: [facility] 11-10-2022 15:06-0400 Respiratory rate 24 /min Nghia Harvey MD, MD Work Phone: [facility] 11-10-2022 15:06-0400 SaO2% (BldA) [Mass fraction] 97 % Nghia Harvey MD, MD Work Phone: [facility] 08-11-2022 14:18-0500 Diastolic blood pressure 62 mm[Hg] Inocente Nichols MD Work Phone: [facility] 08-11-2022 14:18-0500 Heart rate 64 /min Inocente Nichols MD Work Phone: [facility] 08-11-2022 14:18-0500 Systolic blood pressure 132 mm[Hg] Inocente Nichols MD Work Phone: [facility] 08-11-2022 14:13-0500 Body temperature 97.5 [degF] Inocente Nichols MD Work Phone: [facility] 08-11-2022 14:13-0500 Body weight 112.95 kg Inocente Nichols MD Work Phone: [facility] 08-11-2022 14:13-0500 Respiratory rate 20 /min Inocente Nichols MD Work Phone: [facility] 07-16-2022 15:41-0500 Diastolic blood pressure 53 mm[Hg] Inocente Nichols MD Work Phone: [facility] 07-16-2022 15:41-0500 Heart rate 53 /min Inocente Nichols MD Work Phone: [facility] 07-16-2022 15:41-0500 Systolic blood pressure 129 mm[Hg] Inocente Nichols MD Work Phone: [facility] 07-16-2022 15:35-0500 Body temperature 97.9 [degF] Inocente Nichols MD Work Phone: [facility] 07-16-2022 15:35-0500 Body weight 114.76 kg Inocente Nichols MD Work Phone: [facility] 07-16-2022 15:35-0500 Respiratory rate 24 /min Inocente Nichols MD Work Phone: [facility] 07-16-2022 15:35-0500 SaO2% (BldA) [Mass fraction] 97 % Inocente Nichols MD Work Phone: [facility] 05-30-2022 13:33-0500 Body weight 111.58 kg Inocente Nichols MD Work Phone: [facility] 03-19-2022 13:21-0400 Diastolic blood pressure 69 mm[Hg] Inocente Nichols MD Work Phone: [facility] 03-19-2022 13:21-0400 Heart rate 55 /min Inocente Nichols MD Work Phone: [facility] 03-19-2022 13:21-0400 Systolic blood pressure 127 mm[Hg] Inocente Nichols MD Work Phone: [facility] 03-19-2022 13:15-0400 Body temperature 97.11 [degF] Inocente Nichols MD Work Phone: [facility] 03-19-2022 13:15-0400 Body weight 113.53 kg Inocente Nichols MD Work Phone: [facility] 03-19-2022 13:15-0400 Respiratory rate 24 /min Inocente Nichols MD Work Phone: [facility] 03-19-2022 13:15-0400 SaO2% (BldA) [Mass fraction] 94 % Inocente Nichols MD Work Phone: [facility] 02-27-2022 15:38-0400 Heart rate 49 /min Juancho Carpenter MD Work Phone: [facility] 02-27-2022 15:38-0400 Respiratory rate 18 /min Juancho Carpenter MD Work Phone: [facility] 02-27-2022 15:38-0400 SaO2% (BldA) [Mass fraction] 96 % Juancho Carpenter MD Work Phone: [facility] 02-06-2022 10:08-0400 Diastolic blood pressure 72 mm[Hg] Inocente Nichols MD Work Phone: [facility] 02-06-2022 10:08-0400 Heart rate 48 /min Inocente Nichols MD Work Phone: [facility] 02-06-2022 10:08-0400 Systolic blood pressure 156 mm[Hg] Inocente Nichols MD Work Phone: [facility] 02-06-2022 10:03-0400 Body temperature 97.3 [degF] Inocente Nichols MD Work Phone: [facility] 02-06-2022 10:03-0400 Body weight 117.75 kg Inocente Nichols MD Work Phone: [facility] 02-06-2022 10:03-0400 Respiratory rate 28 /min Inocente Nichols MD Work Phone: [facility] 02-06-2022 10:03-0400 SaO2% (BldA) [Mass fraction] 94 % Inocente Nichols MD Work Phone: [facility] 01-22-2022 13:44-0400 Body temperature 97.5 [degF] Valorie Allan APRN.CNP Work Phone: [facility] 01-22-2022 13:44-0400 Diastolic blood pressure 86 mm[Hg] Valorie Older INSTRUMENT PERSON.PATTERN CARRIER Work Phone: [facility] 01-22-2022 13:44-0400 Heart rate 47 /min Valorie Older INSTRUMENT PERSON.PATTERN CARRIER Work Phone: [facility] 01-22-2022 13:44-0400 Respiratory rate 22 /min Valorie Older INSTRUMENT PERSON.PATTERN CARRIER Work Phone: [facility] 01-22-2022 13:44-0400 SaO2% (BldA) [Mass fraction] 96 % Valorie Older INSTRUMENT PERSON.PATTERN CARRIER Work Phone: [facility] 01-22-2022 13:44-0400 Systolic blood pressure 146 mm[Hg] Valorie Older INSTRUMENT PERSON.PATTERN CARRIER Work Phone: [facility] 01-15-2022 16:58-0400 Body temperature 97.59 [degF] Valorie Older INSTRUMENT PERSON.PATTERN CARRIER Work Phone: [facility] 01-15-2022 16:58-0400 Body weight 118.84 kg Valorie Older INSTRUMENT PERSON.PATTERN CARRIER Work Phone: [facility] 01-15-2022 16:58-0400 Diastolic blood pressure 68 mm[Hg] Valorie Older INSTRUMENT PERSON.PATTERN CARRIER Work Phone: [facility] 01-15-2022 16:58-0400 Heart rate 50 /min Valorie Older INSTRUMENT PERSON.PATTERN CARRIER Work Phone: [facility] 01-15-2022 16:58-0400 Respiratory rate 24 /min Valorie Older INSTRUMENT PERSON.PATTERN CARRIER Work Phone: [facility] 01-15-2022 16:58-0400 SaO2% (BldA) [Mass fraction] 94 % Valorie Older INSTRUMENT PERSON.PATTERN CARRIER Work Phone: [facility] 01-15-2022 16:58-0400 Systolic blood pressure 138 mm[Hg] Valorie Older INSTRUMENT PERSON.PATTERN CARRIER Work Phone: [facility] 01-09-2022 14:33-0400 Heart rate 48 /min Dunnell Carpenter MD Work Phone: [facility] 01-09-2022 14:33-0400 Respiratory rate 18 /min Juancho Carpenter MD Work Phone: [facility] 01-09-2022 14:33-0400 SaO2% (BldA) [Mass fraction] 98 % Juancho Carpenter MD Work Phone: [facility] 11-29-2021 16:46-0400 Body height 180.3 cm Inocente Nichols MD Work Phone: [facility] 11-29-2021 16:46-0400 Body temperature 98.2 [degF] Inocente Nichols MD Work Phone: [facility] 11-29-2021 16:46-0400 Diastolic blood pressure 66 mm[Hg] Inocente Nichols MD Work Phone: [facility] 11-29-2021 16:46-0400 Heart rate 48 /min Inocente Nichols MD Work Phone: [facility] 11-29-2021 16:46-0400 Respiratory rate 18 /min Inocente Nichols MD Work Phone: [facility] 11-29-2021 16:46-0400 SaO2% (BldA) [Mass fraction] 95 % Inocente Nichols MD Work Phone: [facility] 11-29-2021 16:46-0400 Systolic blood pressure 134 mm[Hg] Inocente Nichols MD Work Phone: [facility] 11-14-2021 11:45-0400 Heart rate 47 /min Juancho Carpenter MD Work Phone: [facility] 11-14-2021 11:45-0400 Respiratory rate 17 /min Juancho Carpenter MD Work Phone: [facility] 11-14-2021 11:45-0400 SaO2% (BldA) [Mass fraction] 94 % Juancho Carpenter MD Work Phone: [facility] 11-07-2021 08:04-0400 Body temperature 98.4 [degF] Edvin Cosby APRN.[facility] Work Phone: [facility] 11-07-2021 08:04-0400 Body weight 117.03 kg Edvin Cosby APRN.[facility] Work Phone: [facility] 11-07-2021 08:04-0400 Diastolic blood pressure 76 mm[Hg] Edvin Cosby APRN.[facility] Work Phone: [facility] 11-07-2021 08:04-0400 Heart rate 61 /min Edvin Cosby APRN.[facility] Work Phone: [facility] 11-07-2021 08:04-0400 Respiratory rate 18 /min Edvin Cosby APRN.[facility] Work Phone: [facility] 11-07-2021 08:04-0400 SaO2% (BldA) [Mass fraction] 94 % Edvin Cosby APRN.[facility] Work Phone: [facility] 11-07-2021 08:04-0400 Systolic blood pressure 128 mm[Hg] Edvin Cosby APRN.[facility] Work Phone: [facility] Encounters Encounter Date Encounter Type Care Provider Facility Start: 06-17-2023 Telephone encounter Nghia Braxton MD Work Phone: Radiation Oncology Procedures Date Procedure Procedure Detail Performing Clinician Start: 12-26-2022 Lipid 1996 panel - S ryan or Plasma Genesis Wang Work Phone: Start: 08-11-2022 [employer] COVI D-19 BIVALENT BOOSTER VACCINE, AGE 12+ YR Inocente Nichols MD Work Phone: Start: 07-16-2022 INFLUENZA SEASONAL QUADRIVALENT HIGH DOSE AGE 65+ Inocente Nichols MD Work Phone: Start: 01-16-2022 Ct thorax w/o contra st material Nghia Harvey MD Work Phone: Start: 03-27-2021 Adult depression scr eening assessment Nghia Harvey MD, MD Work Phone: Plan of Treatment Date Care Activity Detail Author Start: 12-27-2027 Lipid 1996 panel - Serum or Plasma Lipid Screening [facility] Start: 12-27-2027 LIPID SCREEN LIPID SCREEN [facility] Start: 12-06-2026 LIPID SCREEN LIPID SCREEN [facility] Start: 11-20-2026 LIPID SCREEN LIPID SCREEN [facility] Start: 02-25-2026 DIABETES SCREEN DIABETES SCREEN [facility] Start: 02-25-2026 Diabetes Screening Diabetes Screening [facility] Start: 01-21-2026 DIABETES SCREEN DIABETES SCREEN [facility] Start: 12-26-2025 DIABETES SCREEN DIABETES SCREEN [facility] Start: 12-18-2025 Urine microalbumin profile DTaP,Tdap,Td Vaccine (3 - Td or Tdap) [facility] Start: 05-30-2025 DIABETES SCREEN DIABETES SCREEN [facility] Start: 03-19-2025 DIABETES SCREEN DIABETES SCREEN [facility] Start: 02-06-2025 DIABETES SCREEN DIABETES SCREEN [facility] Start: 12-06-2024 DIABETES SCREEN DIABETES SCREEN [facility] Start: 11-20-2024 DIABETES SCREEN DIABETES SCREEN [facility] Start: 04-21-2024 Annual PCP Team Chronic Disease Visit Annual PCP Team Chronic Disease Visit [facility] Start: 02-28-2024 ANNUAL PCP TEAM CHRONIC DISEASE VISIT ANNUAL PCP TEAM CHRONIC DISEASE VISIT [facility] Start: 01-30-2024 ANNUAL PCP TEAM CHRONIC DISEASE VISIT ANNUAL PCP TEAM CHRONIC DISEASE VISIT [facility] Start: 01-30-2024 BP CONTROLLED (<130/80) BP CONTROLLED (<130/80) [facility] Start: 12-27-2023 ANNUAL PCP TEAM CHRONIC DISEASE VISIT ANNUAL PCP TEAM CHRONIC DISEASE VISIT [facility] Start: 12-27-2023 BP CONTROLLED (<130/80) BP CONTROLLED (<130/80) [facility] Start: 12-27-2023 Hepatitis B surface antibody level LDL CHOLESTEROL [facility] Start: 11-14-2023 ANNUAL PCP TEAM CHRONIC DISEASE VISIT ANNUAL PCP TEAM CHRONIC DISEASE VISIT [facility] Start: 09-24-2023 Urine microalbumin profile [facility] Start: 08-19-2023 End: 07-16-2024 Ct thorax w/o contrast material CT CHEST WO IVCON Radiology Routine Malignant neoplasm of unspecified part of unspecified bronchus or lung (HCC) Expected: 08/19/2023, Expires: 07/16/2024 [facility] Work Phone: Immunizations Immunization Date Immunization Notes Care Provider Zainab loaiza 08-11-2022 COVID-19 booster vaccine, age 12+ yr, bivalent (PFIZER-BIONTECH) Inocente Nichols MD Work Phone: [facility] Work Phone: 07-16-2022 influenza, high-dose , quadrivalent vaccine (FLUZONE HIGH DOSE QUADRIVALENT) Inocente Nichols MD Work Phone: [facility] Work Phone: 07-16-2022 influenza virus vacc ine, unspecified formulation Genesis Soaresstephanie Work Phone: [facility] 03-27-2021 influenza, high-dose , quadrivalent vaccine (FLUZONE HIGH DOSE QUADRIVALENT) Nghia Harvey MD, MD Work Phone: [facility] Work Phone: 03-27-2021 pneumococcal polysaccharide vaccine, 23 valent Nghia Harvey MD, MD Work Phone: [facility] Work Phone: 05-23-2016 pneumococcal conjuga te vaccine, 13 valent Nghia Harvey MD, MD Work Phone: [facility] Work Phone: 09-23-2013 tetanus toxoid, redu brianne diphtheria toxoid, and acellular pertussis vaccine, adsorbed Nghia Harvey MD, MD Work Phone: [facility] Work Phone: Payers Date Payer Category Payer Medicaid [facility] MEDICAID MYC ARE [facility] MEDICAID [id number] 2020-Present [phone] [address] [place] [address] Medicaid [id number] 2020 Medicare [id number] 2020 Medicare [facility] MEDICARE MYC ARE [employer] MEDICARE [id number] 2020-Present [phone] [address] [place] [address] Medicare [id number] 2020 Medicare [id number] Social History Date Type Detail Facility Start: 07-29-2021 End: 03-19-2022 Tobacco smoking status NHIS Smokes tobacco daily [facility] History of tobacco use Cigarette Smoker C [facility] Start: 10-02-2021 End: 07-16-2022 Alcohol intake Ex-drinker (finding) [facility] Start: 07-29-2021 End: 03-19-2022 Tobacco Comment 3-4 cigarettes/day 07/29/21 [facility] Start: 1950 Sex Assigned At Not on file C [facility] Start: 09-22-2021 End: 05-01-2022 Exposure to SARS-CoV-2 (event) Not sure [facility] Start: 07-29-2021 End: 12-12-2022 Cigarettes smoked current (pack per day) - Reported 2 [facility] Work Phone: Start: 07-29-2021 End: 03-19-2022 Tobacco use and exposure Smokeless tobacco non-user [facility] Start: 03-19-2022 History SDOH Alcohol Frequency 5 [facility] Start: 03-19-2022 History SDOH Alcohol Std Drinks 2 [facility] Start: 03-19-2022 History SDOH Alcohol Binge 1 [facility] Start: 03-19-2022 History SDOH Alcohol Comment 4 cans beer per day. [facility] Start: 08-11-2022 End: 01-29-2023 Alcohol intake Current drinker of alcohol (finding) [facility] Start: 08-11-2022 Alcohol Comment 2 drinks per day [facility] Start: 03-19-2022 End: 12-12-2022 Alcohol Use Disorder Identification Test - Consumption [AUDIT-C] [facility] Work Phone: How often to you hav e a drink containing alcohol? 4 or more times a week [facility] Work Phone: How many standard dr inks containing alcohol do you have on a typical day? 3 or 4 [facility] Work Phone: How often do you hav e 6 or more drinks on 1 occasion? Never [facility] Work Phone: Adult Depression Scr eening Assessment 0 [facility] Work Phone: Start: 04-01-2023 End: 04-21-2023 Alcohol intake Lifetime non-drinker (finding) [facility] Clinical Notes 03-14-2021 to 06-17-2023 Telephone Encounter - Rachel Hernandez - 06/17/2023 3:11 PM ESTTelephone Encounter - Allyson Patterson - 06/17/2023 1:50 PM Nghia Cohn MD, - 06/17/2023 1:13 PM ESTPatient Instructions Note Date & Type Note Facility 06-17-2023 Note HNO ID: [id number] Author: Nghia Harvey MD, MD Service: ? Author Type: Physician Type: Progress Notes Filed: 06/19/2023 3:08 PM Note Text: AMBULATORY TELEPHONE VISIT Kelly Damian has consented to this telephone encounter. Persons Present: patient Chief Complaint/Reason: Follow-up after radiation treatment. HPI: 1. Enlarging left lower lung nodule suspicious for malignancy s/p SBRT finished on 11/14/22 2. 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 3. Clinical stage IB, T2aN0, non-small cell lung cancer of the left upper lobe treated with SBRT at the [facility] in 03/2020. He is doing well without any specific new complaints. CT chest on 06/10/23 showed, New clustered nodules in the left lung apex. New clustered nodular and patchy opacities in the posterior right upper lobe. These are most likely infectious/inflammatory. A short-term follow-up study could be obtained to assess for any change.2. Decreased size of a left lower lobe consolidation. Unchanged appearance of consolidations in the medial left upper lobe and right lung base. Data Reviewed: None. Assessment: Clinically stable. Plan: I will get a follow-up CT scan in two months. Total Time Spent: 5-10 minutes including documentation Nghia Harvey MD [facility] 06-17-2023 Miscellaneous Notes Scheduled with patient. Patient requested to have CT last week of August. Summary: PER CC'D CHART Images from the original note were not included. Nghia Harvey MD, P Wstr Hem/Onc Psr Please call him and schedule CT chest in two months and then a phone visit with me. Thanks. documented in this encounter [facility] 06-17-2023 History of Present illness Narrative AMBULATORY TELEPHONE VISIT Kelly Damian has consented to this telephone encounter. Persons Present: patient Chief Complaint/Reason: Follow-up after radiation treatment. HPI: 1. Enlarging left lower lung nodule suspicious for malignancy s/p SBRT finished on 11/14/22 2. 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 3. Clinical stage IB, T2aN0, non-small cell lung cancer of the left upper lobe treated with SBRT at the [facility] in 03/2020. He is doing well without any specific new complaints. CT chest on 06/10/23 showed, New clustered nodules in the left lung apex. New clustered nodular and patchy opacities in the posterior right upper lobe. These are most likely infectious/inflammatory. A short-term follow-up study could be obtained to assess for any change.2. Decreased size of a left lower lobe consolidation. Unchanged appearance of consolidations in the medial left upper lobe and right lung base. Data Reviewed: None. Assessment: Clinically stable. Plan: I will get a follow-up CT scan in two months. Total Time Spent: 5-10 minutes including documentation Nghia Harvey MD documented in this encounter [facility] 06-10-2023 Note HNO ID: [id number] Author: Catrachita Perdomo RT(R) Service: ? Author Type: Sausage Maker Type: Progress Notes Filed: 06/10/2023 1:18 PM Note Text: Radiology Service Progress Note PATIENT NAME: Kelly Damian DATE OF SERVICE: June 10, 2023 TIME: 1:18 PM PATIENT IDENTITY VERIFICATION COMPLETED USING TWO (2) IDENTIFIERS: Name and Date of confirmed by patient verbally. FALL SCREENING: Has the patient had 2 falls in the last year or 1 fall with injury or currently using an Ambulatory Assistive Device (Walker, Cane, Wheelchair, Crutches, etc.)? No PATIENT GENDER DATA: Male PATIENT RELEVANT IMPLANT DATA REVIEWED: Yes RADIOLOGY DEPARTMENT: CT; Exam(s) Completed: Chest PERIPHERAL IV DATA: Not applicable SIGNED BY: RT Brennen(Kimberly) June 10, 2023 1:18 PM [facility] 06-10-2023 History of Present illness Narrative Radiology Service Progress Note PATIENT NAME: Kelly Damian DATE OF SERVICE: June 10, 2023 TIME: 1:18 PM PATIENT IDENTITY VERIFICATION COMPLETED USING TWO (2) IDENTIFIERS: Name and Date of confirmed by patient verbally. FALL SCREENING: Has the patient had 2 falls in the last year or 1 fall with injury or currently using an Ambulatory Assistive Device (Walker, Cane, Wheelchair, Crutches, etc.)? No PATIENT GENDER DATA: Male PATIENT RELEVANT IMPLANT DATA REVIEWED: Yes RADIOLOGY DEPARTMENT: CT; Exam(s) Completed: Chest PERIPHERAL IV DATA: Not applicable SIGNED BY: STEW Hutton) June 10, 2023 1:18 PM documented in this encounter [facility] 04-21-2023 Note HNO ID: [id number] Author: Ceci Santamaria LPN Service: ? Author Type: ? Type: Progress Notes Filed: 04/21/2023 11:55 AM Note Text: Ear lavage performed on the left ear with warm water/h202. Moderate amount of cerumen flushed from ear. TM is visible and intact post procedure. Patient tolerated procedure well and had no complaints during or after the procedure. Ceci Santamaria ERIN [facility] 04-21-2023 Note HNO ID: [id number] Author: Inocente Nichols MD Service: ? Author Type: Physician Type: Progress Notes Filed: 04/21/2023 11:55 AM Note Text: This note was created using SCYFIX. Subjective Klely Damian is a 73 year old male was here for follow up. He was currently in [place] under the care of Dr. Pollard since discharge from [facility] in January for left leg wound and cellulitis, hyponatremia, leukocytosis, L compression fracture, and weakness. He was not sure about discharge plans but he was aware his buttock ulcer needed healed. His leg ulcers were reportedly healed. His edema was much better. He was finishing a course of cephalexin. His main concern today was wax buildup. Review of Systems Constitutional: Negative for chills and fever. HENT: Positive for hearing loss. Respiratory: Negative for shortness of breath. Cardiovascular: Negative for leg swelling. Neurological: Positive for weakness. 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 Apply to bilateral buttocks topically as needed for incontinence care potassium chloride 20 mEq TbER Take 20 mEq by mouth twice daily. ascorbic acid, vitamin C, (VITAMIN C) 500 mg tablet Take 500 mg by mouth once daily. furosemide (LASIX) 40 mg tablet Take 1 tablet by mouth twice daily. fluticasone (FLONASE) 50 mcg/actuation nasal spray Use 2 Sprays in each nostril once daily. Rinse mouth after use. loratadine (CLARITIN) 10 mg tablet Take 1 tablet by mouth once daily. aspirin 81 mg chewable tablet Take 1 tablet by mouth once daily. lactulose 10 gram/15 mL solution Take 30 mL by mouth twice daily as needed (constipation.). sodium chloride 1 gram tab Take 1 tablet by mouth three times daily. atorvastatin (LIPITOR) 80 mg tablet Take 80 mg by mouth once daily. HYDROcodone-acetaminophen (NORCO) 5-325 mg per tablet Take 1 tablet by mouth every 8 hours as needed for pain. losartan (COZAAR) 50 mg tablet Take 1 tablet by mouth once daily. tamsulosin (FLOMAX) 0.4 mg Take 2 capsules by mouth daily at bedtime. [facility] medication. OLANZapine (ZYPREXA) 15 mg tablet Take 1 tablet by mouth daily at bedtime. VA medication. divalproex ER (DEPAKOTE ER) 500 mg 24 hr tablet Take 1 tablet by mouth daily at bedtime. VA medication. guaiFENesin (HUMIBID E) 400 mg tab Take 1 tablet by mouth three times daily. VA medication. bisacodyl (DULCOLAX) 10 mg supp 10 mg by RECTAL route once daily as needed for constipation. mineral oil (FLEET MINERAL OIL ENEMA) enema 133 mL by RECTAL route one time only. As needed magnesium hydroxide (MOM) 400 mg/5 mL suspension Take by mouth once daily as needed. multivitamin tablet Take 1 tablet by mouth once daily. albuterol HFA (PROVENTIL HFA, VENTOLIN HFA) 90 mcg/actuation inhaler Inhale 1-2 Puffs as instructed four times daily as needed. PULMICORT FLEXHALER 180 mcg/actuation aepb INHALE 2 PUFFS BY MOUTH TWICE DAILY FOR SHORTNESS OF BREATH - RINSE MOUTH AFTER USE cholecalciferol (VITAMIN D3) 1,000 unit tab tablet Take 2,000 Units by mouth once daily. finasteride (PROSCAR) 5 mg tablet Take 5 mg by mouth daily at bedtime. folic acid 1 mg tablet Take by mouth. melatonin 3 mg tablet Take 3 mg by mouth. omeprazole (PRILOSEC) 20 mg capsule TAKE 1 CAPSULE BY MOUTH EVERY DAY FOR GERD thiamine (VITAMIN B1) 100 mg tablet Take by mouth. No current facility-administered medications for this visit. Objective BP 136/62 (BP Site: Right Arm, BP Position: Sitting, BP Cuff Size: Large Adult) Pulse (!) 48 Temp 37.2 ?C (98.9 ?F) (Temporal) Resp 24 SpO2 94% Physical Exam Constitutional: General: He is not in acute distress. Appearance: He is obese. Comments: Wheelchair bound. No oxygen. HENT: Right Ear: Tympanic membrane and ear canal normal. Left Ear: Tympanic membrane and ear canal normal. There is impacted cerumen. Cardiovascular: (more content not included)... [facility] 04-21-2023 History of Present illness Narrative Ear lavage performed on the left ear with warm water/h202. Moderate amount of cerumen flushed from ear. TM is visible and intact post procedure. Patient tolerated procedure well and had no complaints during or after the procedure. Ceci Santamaria LPN This note was created using SCYFIX. Subjective Kelly Damian is a 73 year old male was here for follow up. He was currently in [place] under the care of Dr. Pollard since discharge from [facility] in January for left leg wound and cellulitis, hyponatremia, leukocytosis, L compression fracture, and weakness. He was not sure about discharge plans but he was aware his buttock ulcer needed healed. His leg ulcers were reportedly healed. His edema was much better. He was finishing a course of cephalexin. His main concern today was wax buildup. Review of Systems Constitutional: Negative for chills and fever. HENT: Positive for hearing loss. Respiratory: Negative for shortness of breath. Cardiovascular: Negative for leg swelling. Neurological: Positive for weakness. 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 Apply to bilateral buttocks topically as needed for incontinence care potassium chloride 20 mEq TbER Take 20 mEq by mouth twice daily. ascorbic acid, vitamin C, (VITAMIN C) 500 mg tablet Take 500 mg by mouth once daily. furosemide (LASIX) 40 mg tablet Take 1 tablet by mouth twice daily. fluticasone (FLONASE) 50 mcg/actuation nasal spray Use 2 Sprays in each nostril once daily. Rinse mouth after use. loratadine (CLARITIN) 10 mg tablet Take 1 tablet by mouth once daily. aspirin 81 mg chewable tablet Take 1 tablet by mouth once daily. lactulose 10 gram/15 mL solution Take 30 mL by mouth twice daily as needed (constipation.). sodium chloride 1 gram tab Take 1 tablet by mouth three times daily. atorvastatin (LIPITOR) 80 mg tablet Take 80 mg by mouth once daily. HYDROcodone-acetaminophen (NORCO) 5-325 mg per tablet Take 1 tablet by mouth every 8 hours as needed for pain. losartan (COZAAR) 50 mg tablet Take 1 tablet by mouth once daily. tamsulosin (FLOMAX) 0.4 mg Take 2 capsules by mouth daily at bedtime. VA medication. OLANZapine (ZYPREXA) 15 mg tablet Take 1 tablet by mouth daily at bedtime. VA medication. divalproex ER (DEPAKOTE ER) 500 mg 24 hr tablet Take 1 tablet by mouth daily at bedtime. VA medication. guaiFENesin (HUMIBID E) 400 mg tab Take 1 tablet by mouth three times daily. VA medication. bisacodyl (DULCOLAX) 10 mg supp 10 mg by RECTAL route once daily as needed for constipation. mineral oil (FLEET MINERAL OIL ENEMA) enema 133 mL by RECTAL route one time only. As needed magnesium hydroxide (MOM) 400 mg/5 mL suspension Take by mouth once daily as needed. multivitamin tablet Take 1 tablet by mouth once daily. albuterol HFA (PROVENTIL HFA, VENTOLIN HFA) 90 mcg/actuation inhaler Inhale 1-2 Puffs as instructed four times daily as needed. PULMICORT FLEXHALER 180 mcg/actuation aepb INHALE 2 PUFFS BY MOUTH TWICE DAILY FOR SHORTNESS OF BREATH - RINSE MOUTH AFTER USE cholecalciferol (VITAMIN D3) 1,000 unit tab tablet Take 2,000 Units by mouth once daily. finasteride (PROSCAR) 5 mg tablet Take 5 mg by mouth daily at bedtime. folic acid 1 mg tablet Take by mouth. melatonin 3 mg tablet Take 3 mg by mouth. omeprazole (PRILOSEC) 20 mg capsule TAKE 1 CAPSULE BY MOUTH EVERY DAY FOR GERD thiamine (VITAMIN B1) 100 mg tablet Take by mouth. No current facility-administered medications for this visit. Objective BP 136/62 (BP Site: Right Arm, BP Position: Sitting, BP Cuff Size: Large Adult) Pulse (!) 48 Temp 37.2 C (98.9 F) (Temporal) Resp 24 SpO2 94% Physical Exam Constitutional: General: He is not in acute distress. Appearance: He is obese. Comments: Wheelchair bound. No oxygen. HENT: Right Ear: Tympanic membrane and ear canal normal. Left Ear: Tympanic membrane and ear canal normal. There is impacted cerumen. Cardiovascular: Rate and Rhythm: Regular rhythm. Bradycardia present. Heart sounds: Murmur heard. Pulmonary: Effort: No respiratory distress. Breath sounds: Rhonchi present. No rales. Musculoskeletal: Right lower leg: No edema. Left lower leg: No edema. Comments: Legs wrapped. Neurological: Mental Status: He is alert. Assessment and Plan 1. Impacted cerumen of left ear - ICD9: 380.4, ICD10: H61.22 (primary diagnosis) This was lavaged successfully with no difficulty. Patient had symptom relief. - AMBULATORY EAR LAVAGE/IRRIGATION 2. Pressure injury of buttock, stage 2, unspecified laterality (HCC) - ICD9: 707.05, 707.22, ICD10: L89.302 Delayed healing. Continue ECF. 3. Physical debility - ICD9: 799.3, ICD10: R53.81 Continue ECF. 4. Lymphedema - ICD9: 457.1, ICD10: I89.0 Improved. Continue ECF. Follow up here when discharged from ECF. Inocente Nichols MD documented in this encounter [facility] 04-21-2023 Instructions Inocente Nichols MD - 04/21/2023 10:17 AM EDT documented in this encounter [facility] 04-01-2023 Note HNO ID: [id number] Author: Genesis Wang Service: ? Author Type: Physician Type: Progress Notes Filed: 04/01/2023 4:00 PM Note Text: Consultation requested by Dr. Nichols for an opinion regarding toenail care. My final recommendations will be communicated back to the requesting physician by way of shared Medical record or letter to requesting physician via US mail. Initial Podiatric Office Visit: Chief Complaint: This 72 year old male who presents with chief complaint:dystrophic toenails HPI Patient presents to clinic for evaluation of b/l foot. He currently resides in [facility] but is expecting discharge shortly. He states his nails are long and thick and he would like to have them debrided Patient denies history of diabetes PAIN EVALUATION No data found in the last 1 encounters. No results found for: HBA1C PCP: Inocente Nichols MD PAST MEDICAL HISTORY Diagnosis Date Adenocarcinoma of left lung (HCC) 01/27/2020 Adenocarcinoma of right lung (HCC) 07/04/2021 Benign prostatic hyperplasia with urinary frequency 11/30/2020 Bipolar disorder (HCC) 11/30/2020 Chronic bilateral low back pain 11/30/2020 Chronic hip pain, bilateral 11/30/2020 Closed fracture of right hip with routine healing 05/20/2021 COPD (chronic obstructive pulmonary disease) ([facility]) 11/30/2020 Coronary artery disease involving [place] coronary artery 11/30/2020 COVID-19 05/10/2022 Esophageal stenosis Essential hypertension Falling episodes 05/20/2021 Gastroesophageal reflux disease without esophagitis 11/30/2020 History of colon polyps 03/27/2021 Lymphedema 11/30/2020 Mixed hyperlipidemia Other and unspecified hyperlipidemia Paroxysmal A-fib ([facility]) Pressure injury of sacral region, stage 2 ([facility]) 11/29/2021 Tobacco use disorder 11/30/2020 Uncomplicated alcohol dependence ([facility]) 03/19/2022 Current Outpatient Medications Medication Sig Menthol-Zinc Oxide (CALMOSEPTINE) 0.44-20.6 % Apply to affected area. Apply to bilateral buttocks topically as needed for incontinence care potassium chloride 20 mEq TbER Take 20 mEq by mouth twice daily. ascorbic acid, vitamin C, (VITAMIN C) 500 mg tablet Take 500 mg by mouth once daily. furosemide (LASIX) 40 mg tablet Take 1 tablet by mouth twice daily. fluticasone (FLONASE) 50 mcg/actuation nasal spray Use 2 Sprays in each nostril once daily. Rinse mouth after use. loratadine (CLARITIN) 10 mg tablet Take 1 tablet by mouth once daily. aspirin 81 mg chewable tablet Take 1 tablet by mouth once daily. lactulose 10 gram/15 mL solution Take 30 mL by mouth twice daily as needed (constipation.). sodium chloride 1 gram tab Take 1 tablet by mouth three times daily. atorvastatin (LIPITOR) 80 mg tablet Take 80 mg by mouth once daily. HYDROcodone-acetaminophen (NORCO) 5-325 mg per tablet Take 1 tablet by mouth every 8 hours as needed for pain. losartan (COZAAR) 50 mg tablet Take 1 tablet by mouth once daily. tamsulosin (FLOMAX) 0.4 mg Take 2 capsules by mouth daily at bedtime. VA medication. OLANZapine (ZYPREXA) 15 mg tablet Take 1 tablet by mouth daily at bedtime. VA medication. divalproex ER (DEPAKOTE ER) 500 mg 24 hr tablet Take 1 tablet by mouth daily at bedtime. VA medication. guaiFENesin (HUMIBID E) 400 mg tab Take 1 tablet by mouth three times daily. VA medication. bisacodyl (DULCOLAX) 10 mg supp 10 mg by RECTAL route once daily as needed for constipation. mineral oil (FLEET MINERAL OIL ENEMA) enema 133 mL by RECTAL route one time only. As needed magnesium hydroxide (MOM) 400 mg/5 mL suspension Take by mouth once daily as needed. multivitamin tablet Take 1 tablet by mouth once daily. albuterol HFA (PROVENTIL HFA, VENTOLIN HFA) 90 mcg/actuation inhaler Inhale 1-2 Puffs as instructed four times daily as needed. PULMICORT FLEXHALER 180 mcg/actuation aepb INHALE 2 PUFFS BY MOUTH TWICE DAILY FOR SHORTNESS OF BREATH - RINSE MOUTH AFTER USE cholecalciferol (VITAMIN D3) 1,000 unit tab tablet Take 2,000 Units by mouth once daily. finasteride (PROSCAR) 5 mg tablet Take 5 mg by mouth daily at bedtime. folic acid 1 mg tablet Take by mouth. melatonin 3 mg tablet Take 3 mg by mouth. omeprazole (PRILOSEC) 20 mg capsule TAKE 1 CAPSULE BY MOUTH EVERY DAY FOR GERD thiamine (VITAMIN B1) 100 mg tablet Take by mouth. No current facility-administered medications for this visit. ALLERGIES Allergen Reactions Bee Venom Protein (* Unknown PAST SURGICAL HISTORY Procedure Laterality Date COLONOSCOPY 2005 10-15 years ago, [place], polyps x [address] BIOPSY - LUNG Left 01/27/2020 CT BIOPSY - LUNG Right 07/04/2021 [facility] 1ST INGUN HRNA AGE 5 YRS/> REDUCIBLE 07/20/2000 Hernia repair, inguinal, right TOTAL HIP REPLACEMENT Right 05/22/2021 [facility] FAMILY HISTORY Problem Relation Age of Onset Arthritis Mother Cancer Mother Cancer Father Social History Tobacco Use Smoking status: Every Day Packs/day: 2.00 (more content not included)... [facility] 04-01-2023 Note HNO ID: [id number] Author: Abi Sage LPN Service: ? Author Type: LICENSED NURSE Type: Progress Notes Filed: 04/01/2023 4:00 PM Note Text: AMB ROOMING INTAKE FLOWSHEET DATA Patient presents with: Left Foot - nail care , New Right Foot - New, nail care Abi Sage LPN [facility] 04-01-2023 History of Present illness Narrative Consultation requested by Dr. Nichols for an opinion regarding toenail care. My final recommendations will be communicated back to the requesting physician by way of shared Medical record or letter to requesting physician via US mail. Initial Podiatric Office Visit: Chief Complaint: This 72 year old male who presents with chief complaint:dystrophic toenails HPI Patient presents to clinic for evaluation of b/l foot. He currently resides in [facility] but is expecting discharge shortly. He states his nails are long and thick and he would like to have them debrided Patient denies history of diabetes PAIN EVALUATION No data found in the last 1 encounters. No results found for: HBA1C PCP: Inocente Nichols MD PAST MEDICAL HISTORY Diagnosis Date Adenocarcinoma of left lung ([facility]) 01/27/2020 Adenocarcinoma of right lung ([facility]) 07/04/2021 Benign prostatic hyperplasia with urinary frequency 11/30/2020 Bipolar disorder ([facility]) 11/30/2020 Chronic bilateral low back pain 11/30/2020 Chronic hip pain, bilateral 11/30/2020 Closed fracture of right hip with routine healing 05/20/2021 COPD (chronic obstructive pulmonary disease) ([facility]) 11/30/2020 Coronary artery disease involving [place] coronary artery 11/30/2020 COVID-19 05/10/2022 Esophageal stenosis Essential hypertension Falling episodes 05/20/2021 Gastroesophageal reflux disease without esophagitis 11/30/2020 History of colon polyps 03/27/2021 Lymphedema 11/30/2020 Mixed hyperlipidemia Other and unspecified hyperlipidemia Paroxysmal A-fib ([facility]) Pressure injury of sacral region, stage 2 ([facility]) 11/29/2021 Tobacco use disorder 11/30/2020 Uncomplicated alcohol dependence ([facility]) 03/19/2022 Current Outpatient Medications Medication Sig Menthol-Zinc Oxide (CALMOSEPTINE) 0.44-20.6 % Apply to affected area. Apply to bilateral buttocks topically as needed for incontinence care potassium chloride 20 mEq TbER Take 20 mEq by mouth twice daily. ascorbic acid, vitamin C, (VITAMIN C) 500 mg tablet Take 500 mg by mouth once daily. furosemide (LASIX) 40 mg tablet Take 1 tablet by mouth twice daily. fluticasone (FLONASE) 50 mcg/actuation nasal spray Use 2 Sprays in each nostril once daily. Rinse mouth after use. loratadine (CLARITIN) 10 mg tablet Take 1 tablet by mouth once daily. aspirin 81 mg chewable tablet Take 1 tablet by mouth once daily. lactulose 10 gram/15 mL solution Take 30 mL by mouth twice daily as needed (constipation.). sodium chloride 1 gram tab Take 1 tablet by mouth three times daily. atorvastatin (LIPITOR) 80 mg tablet Take 80 mg by mouth once daily. HYDROcodone-acetaminophen (NORCO) 5-325 mg per tablet Take 1 tablet by mouth every 8 hours as needed for pain. losartan (COZAAR) 50 mg tablet Take 1 tablet by mouth once daily. tamsulosin (FLOMAX) 0.4 mg Take 2 capsules by mouth daily at bedtime. [facility] medication. OLANZapine (ZYPREXA) 15 mg tablet Take 1 tablet by mouth daily at bedtime. [facility] medication. divalproex ER (DEPAKOTE ER) 500 mg 24 hr tablet Take 1 tablet by mouth daily at bedtime. [facility] medication. guaiFENesin (HUMIBID E) 400 mg tab Take 1 tablet by mouth three times daily. [facility] medication. bisacodyl (DULCOLAX) 10 mg supp 10 mg by RECTAL route once daily as needed for constipation. mineral oil (FLEET MINERAL OIL ENEMA) enema 133 mL by RECTAL route one time only. As needed magnesium hydroxide (MOM) 400 mg/5 mL suspension Take by mouth once daily as needed. multivitamin tablet Take 1 tablet by mouth once daily. albuterol HFA (PROVENTIL HFA, VENTOLIN HFA) 90 mcg/actuation inhaler Inhale 1-2 Puffs as instructed four times daily as needed. PULMICORT FLEXHALER 180 mcg/actuation aepb INHALE 2 PUFFS BY MOUTH TWICE DAILY FOR SHORTNESS OF BREATH - RINSE MOUTH AFTER USE cholecalciferol (VITAMIN D3) 1,000 unit tab tablet Take 2,000 Units by mouth once daily. finasteride (PROSCAR) 5 mg tablet Take 5 mg by mouth daily at bedtime. folic acid 1 mg tablet Take by mouth. melatonin 3 mg tablet Take 3 mg by mouth. omeprazole (PRILOSEC) 20 mg capsule TAKE 1 CAPSULE BY MOUTH EVERY DAY FOR GERD thiamine (VITAMIN B1) 100 mg tablet Take by mouth. No current facility-administered medications for this visit. ALLERGIES Allergen Reactions Bee Venom Protein (* Unknown PAST SURGICAL HISTORY Procedure Laterality Date [place]OS[place] 2005 10-[place] ago[place] [address] BIOPSY - LUNG Left 01/27/2020 CT BIOPSY - LUNG Right 07/04/2021 [facility] 1ST INGUN HRNA AGE 5 YRS/> REDUCIBLE 07/20/2000 Hernia repair, inguinal, right TOTAL HIP REPLACEMENT Right 05/22/2021 [facility] FAMILY HISTORY Problem Relation Age of Onset Arthritis Mother Cancer Mother Cancer Father Social History Tobacco Use Smoking status: Every Day Packs/day: 2.00 Years: 30.00 Additional pack years: 0.00 Total pack years: 60.00 Types: Cigarettes Smokeless tobacco: Never Tobacco comments: 3-4 cigarettes/day 07/29/21 Vaping Use Vaping Use: Never used Substance Use Topics Alcohol use: Never Alcohol/week: 14.0 standard drinks of alcohol Types: 14 Cans of beer per week Comment: 2 drinks per day Drug use: No REVIEW OF SYSTEMS GENERAL: Negative for Malaise, significant weight loss, fever RESPIRATORY: Negative for cough, wheezing and shortness of breath CARDIOVASCULAR: Negative for chest pain, leg swelling and palpitations GI: Negative for abdominal discomfort, blood in stools or black stools and change in bowel habits : Negative for dysuria, frequency and incontinence MUSCULOSKELETAL: Negative for joint pain or swelling, back pain, and muscle pain. SKIN: Negative for lesions, rash, and itching. HEMATOLOGY/LYMPHOLOGY Negative for prolonged bleeding, bruising easily, and swollen nodes. ENDOCRINE: Negative for cold or heat intolerance, polyuria, polydipsia and goiter. NEURO: negative Physical Exam: Constitutional: Pt is a well developed 72 year old male who is alert, oriented and cooperative Eyes: Following during examination. No redness or drainage. Respiratory: RR normal and nonlabored. Even breathing. No evidence of distress or shortness of breath. Psychology: Patient is engaged during conversation. Normal affect and mood. Does not appear depressed or anxious during encounter. Vascular: Dorsalis pedis and posterior tibial pulses nonpalpable b/l Capillary Fill time < 5 seconds to digits 1-5 b/l Skin temperature warm to cool proximal to distal b/l Hair growth absent to digits Neurological: decreased light touch/epicritic sensation Vibratory sensation decreased b/l decreased protective sensation + significant neurological deficits Dermatological: Nails 1-5 b/l appear thick, dystrophic. Webspaces clean and dry 1-4 b/l. Skin appears dry and ruborous. No open lesions present. No callosities present. Musculoskeletal/Orthopaedic: Patient has no pain to palpation of b/l feet Foot type is neutral structurally Radiographs: n/a ASSESSMENT: (I73.9) PAD (peripheral artery disease) (HCC) (primary encounter diagnosis) (B35.1) Dermatophytosis of nail (I89.0) Lymphedema PLAN: 1. History and physical examination performed. 2. Toenails debrided 1-5 b/l. Q8 modifier. Small bleed to left 2nd toe. Band aide and topical antibiotic applied. Call if any issues arise. 3. Recommend lotoin to feet once daily 4. F/u in 3 months 5. Continue with compression for lower extremity edema Genesis Wang DPM Podiatry [address] [facility] [address] Dept: [phone] Dept AMB ROOMING INTAKE FLOWSHEET DATA Patient presents with: Left Foot - nail care , New Right Foot - New, nail care Abi Sage LPN documented in this encounter [facility] 03-02-2023 Miscellaneous Notes Luli/AMY w/SNF notified of below response. Ceci Santamaria LPN Patient seen yesterday and reports he will continue stay at [facility] for a few more weeks. Okay referral for HH SN Wound care when ready for discharge. Luli REYES with SNF calls to ask for orders for HH SN services. Patient plans to discharge home tomorrow 02/27/2023 and patient needs would care to buttocks and bilateral legs. Wound care to buttocks is cleanse with NS and apply calcium alginate with absorbent dressing daily and as needed. Wound care to bilateral legs is cleanse daily and apply Zinc and wrap with gauze. [facility] nurse was contacted for orders and instructed to call PCP office. Patient is wanting referral to be sent to [facility]. ([facility] will not see patient for daily wound care). Zully Goss RN documented in this encounter [facility] 02-27-2023 Note HNO ID: [id number] Author: Inocente Nichols MD Service: ? Author Type: Physician Type: Progress Notes Filed: 03/01/2023 12:04 PM Note Text: This note was created using SCYFIX. Subjective Kelly Damian is a 72 year old male here with his sister. He was currently at [facility] but still came here for follow up and labs as previously planned in the outpatient setting. He was admitted again 02/03-02/05/23 for left leg wound, left leg cellulitis, hyponatremia, and compression fractures of L1-L2. This time he agreed to [place] stay, but only till his wounds improved. His sister had been concerned about his ability to care for himself at home, but apparently Dr. Pollard was planning to discharge him after another few weeks of wound care. Review of Systems Constitutional: Negative for chills and fever. HENT: Negative. Respiratory: Negative for cough and shortness of breath. Cardiovascular: Positive for leg swelling. Negative for chest pain and palpitations. Gastrointestinal: Negative for constipation, diarrhea and nausea. Skin: Positive for wound. Neurological: Positive for weakness. 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) Obesity, Class I, Bmi 30-34.9 Hyponatremia Uncomplicated Alcohol Dependence (Hcc) Primary Hypertension Thrombocytopenia (Hcc) Pressure Injury of Buttock, Stage 2 (Hcc) Peripheral Vascular Disease (Hcc) Schizoaffective Disorder, Unspecified Type (Hcc) Alcoholic Polyneuropathy (Hcc) Paroxysmal Atrial Fibrillation (Hcc) Ulcers of Both Lower Legs (Hcc) Social History Tobacco Use Smoking status: Every Day Packs/day: 2.00 Years: 30.00 Total pack years: 60.00 Types: Cigarettes Smokeless tobacco: Never Tobacco comments: 3-4 cigarettes/day 07/29/21 Vaping Use Vaping Use: Never used Substance Use Topics Alcohol use: Yes Alcohol/week: 14.0 standard drinks of alcohol Types: 14 Cans of beer per week Comment: 2 drinks per day Drug use: No Current Outpatient Medications Medication Sig Menthol-Zinc Oxide (CALMOSEPTINE) 0.44-20.6 % Apply to affected area. Apply to bilateral buttocks topically as needed for incontinence care potassium chloride 20 mEq TbER Take 20 mEq by mouth twice daily. ascorbic acid, vitamin C, (VITAMIN C) 500 mg tablet Take 500 mg by mouth once daily. furosemide (LASIX) 40 mg tablet Take 1 tablet by mouth twice daily. fluticasone (FLONASE) 50 mcg/actuation nasal spray Use 2 Sprays in each nostril once daily. Rinse mouth after use. loratadine (CLARITIN) 10 mg tablet Take 1 tablet by mouth once daily. aspirin 81 mg chewable tablet Take 1 tablet by mouth once daily. lactulose 10 gram/15 mL solution Take 30 mL by mouth twice daily as needed (constipation.). sodium chloride 1 gram tab Take 1 tablet by mouth three times daily. atorvastatin (LIPITOR) 80 mg tablet Take 80 mg by mouth once daily. HYDROcodone-acetaminophen (NORCO) 5-325 mg per tablet Take 1 tablet by mouth every 8 hours as needed for pain. losartan (COZAAR) 50 mg tablet Take 1 tablet by mouth once daily. tamsulosin (FLOMAX) 0.4 mg Take 2 capsules by mouth daily at bedtime. [facility] medication. OLANZapine (ZYPREXA) 15 mg tablet Take 1 tablet by mouth daily at bedtime. VA medication. divalproex ER (DEPAKOTE ER) 500 mg 24 hr tablet Take 1 tablet by mouth daily at bedtime. VA medication. guaiFENesin (HUMIBID E) 400 mg tab Take 1 tablet by mouth three times daily. VA medication. bisacodyl (DULCOLAX) 10 mg supp 10 mg by RECTAL route once daily as needed for constipation. mineral oil (FLEET MINERAL OIL ENEMA) enema 133 mL by RECTAL route one time only. As needed multivitamin tablet Take 1 tablet by mouth once daily. albuterol HFA (PROVENTIL HFA, VENTOLIN HFA) 90 mcg/actuation inhaler Inhale 1-2 Puffs as instructed four times daily as needed. PULMICORT FLEXHALER 180 mcg/actuation aepb INHALE 2 PUFFS BY MOUTH TWICE DAILY FOR SHORTNESS OF BREATH - RINSE MOUTH AFTER USE cholecalciferol (VITAMIN D3) 1,000 unit tab tablet Take 2,000 Units by mouth once daily. finasteride (PROSCAR) 5 mg tablet Take 5 mg by mouth daily at bedtime. folic acid 1 mg tablet Take by mouth. melatonin 3 mg tablet Take 3 mg by mouth. omeprazole (PRILOSEC) 20 mg capsule TAKE 1 CAPSULE BY MOUTH EVERY DAY FOR GERD thiamine (VITAMIN B1) 100 mg tablet Take by mouth. magnesium hydroxide (more content not included)... [facility] 02-27-2023 History of Present illness Narrative This note was created using SCYFIX. Subjective Kelly Damian is a 72 year old male here with his sister. He was currently at [facility] but still came here for follow up and labs as previously planned in the outpatient setting. He was admitted again 02/03-02/05/23 for left leg wound, left leg cellulitis, hyponatremia, and compression fractures of L1-L2. This time he agreed to [place] stay, but only till his wounds improved. His sister had been concerned about his ability to care for himself at home, but apparently Dr. Pollard was planning to discharge him after another few weeks of wound care. Review of Systems Constitutional: Negative for chills and fever. HENT: Negative. Respiratory: Negative for cough and shortness of breath. Cardiovascular: Positive for leg swelling. Negative for chest pain and palpitations. Gastrointestinal: Negative for constipation, diarrhea and nausea. Skin: Positive for wound. Neurological: Positive for weakness. 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) Obesity, Class I, Bmi 30-34.9 Hyponatremia Uncomplicated Alcohol Dependence (Hcc) Primary Hypertension Thrombocytopenia (Hcc) Pressure Injury of Buttock, Stage 2 (Hcc) Peripheral Vascular Disease (Hcc) Schizoaffective Disorder, Unspecified Type (Hcc) Alcoholic Polyneuropathy (Hcc) Paroxysmal Atrial Fibrillation (Hcc) Ulcers of Both Lower Legs (Hcc) Social History Tobacco Use Smoking status: Every Day Packs/day: 2.00 Years: 30.00 Total pack years: 60.00 Types: Cigarettes Smokeless tobacco: Never Tobacco comments: 3-4 cigarettes/day 07/29/21 Vaping Use Vaping Use: Never used Substance Use Topics Alcohol use: Yes Alcohol/week: 14.0 standard drinks of alcohol Types: 14 Cans of beer per week Comment: 2 drinks per day Drug use: No Current Outpatient Medications Medication Sig Menthol-Zinc Oxide (CALMOSEPTINE) 0.44-20.6 % Apply to affected area. Apply to bilateral buttocks topically as needed for incontinence care potassium chloride 20 mEq TbER Take 20 mEq by mouth twice daily. ascorbic acid, vitamin C, (VITAMIN C) 500 mg tablet Take 500 mg by mouth once daily. furosemide (LASIX) 40 mg tablet Take 1 tablet by mouth twice daily. fluticasone (FLONASE) 50 mcg/actuation nasal spray Use 2 Sprays in each nostril once daily. Rinse mouth after use. loratadine (CLARITIN) 10 mg tablet Take 1 tablet by mouth once daily. aspirin 81 mg chewable tablet Take 1 tablet by mouth once daily. lactulose 10 gram/15 mL solution Take 30 mL by mouth twice daily as needed (constipation.). sodium chloride 1 gram tab Take 1 tablet by mouth three times daily. atorvastatin (LIPITOR) 80 mg tablet Take 80 mg by mouth once daily. HYDROcodone-acetaminophen (NORCO) 5-325 mg per tablet Take 1 tablet by mouth every 8 hours as needed for pain. losartan (COZAAR) 50 mg tablet Take 1 tablet by mouth once daily. tamsulosin (FLOMAX) 0.4 mg Take 2 capsules by mouth daily at bedtime. [facility] medication. OLANZapine (ZYPREXA) 15 mg tablet Take 1 tablet by mouth daily at bedtime. VA medication. divalproex ER (DEPAKOTE ER) 500 mg 24 hr tablet Take 1 tablet by mouth daily at bedtime. VA medication. guaiFENesin (HUMIBID E) 400 mg tab Take 1 tablet by mouth three times daily. VA medication. bisacodyl (DULCOLAX) 10 mg supp 10 mg by RECTAL route once daily as needed for constipation. mineral oil (FLEET MINERAL OIL ENEMA) enema 133 mL by RECTAL route one time only. As needed multivitamin tablet Take 1 tablet by mouth once daily. albuterol HFA (PROVENTIL HFA, VENTOLIN HFA) 90 mcg/actuation inhaler Inhale 1-2 Puffs as instructed four times daily as needed. PULMICORT FLEXHALER 180 mcg/actuation aepb INHALE 2 PUFFS BY MOUTH TWICE DAILY FOR SHORTNESS OF BREATH - RINSE MOUTH AFTER USE cholecalciferol (VITAMIN D3) 1,000 unit tab tablet Take 2,000 Units by mouth once daily. finasteride (PROSCAR) 5 mg tablet Take 5 mg by mouth daily at bedtime. folic acid 1 mg tablet Take by mouth. melatonin 3 mg tablet Take 3 mg by mouth. omeprazole (PRILOSEC) 20 mg capsule TAKE 1 CAPSULE BY MOUTH EVERY DAY FOR GERD thiamine (VITAMIN B1) 100 mg tablet Take by mouth. magnesium hydroxide (MOM) 400 mg/5 mL suspension Take by mouth once daily as needed. No current facility-administered medications for this visit. Objective BP 136/69 Pulse (!) 46 Temp 36.9 C (98.4 F) (Temporal) Resp 20 Physical Exam Constitutional: General: He is not in acute distress. Cardiovascular: Rate and Rhythm: Regular rhythm. Bradycardia present. Heart sounds: No murmur heard. No gallop. Pulmonary: Effort: No respiratory distress. Breath sounds: No wheezing, rhonchi or rales. Musculoskeletal: Right lower le+ Pitting Edema present. Left lower le+ Pitting Edema present. Comments: Legs are wrapped. Neurological: Mental Status: He is alert. Comments: Wheelchair bound. Component Latest Ref Rng & Units 02/25/2023 WBC 3.70 - 11.00 k/uL 9.54 RBC 4.20 - 6.00 m/uL 3.10 (L) Hemoglobin 13.0 - 17.0 g/dL 10.4 (L) Hematocrit 39.0 - 51.0 % 30.9 (L) MCV 80.0 - 100.0 fL 99.7 MCH 26.0 - 34.0 pg 33.5 MCHC 30.5 - 36.0 g/dL 33.7 RDW-CV 11.5 - 15.0 % 15.7 (H) Platelet Count 150 - 400 k/uL 275 MPV 9.0 - 12.7 fL 9.3 Absolute nRBC <0.01 k/uL <0.01 Glucose 74 - 99 mg/dL 158 (H) BUN 9 - 24 mg/dL 10 Creatinine 0.73 - 1.22 mg/dL 0.70 (L) Sodium 136 - 144 mmol/L 129 (L) Potassium 3.7 - 5.1 mmol/L 5.1 Chloride 97 - 105 mmol/L 90 (L) CO2 22 - 30 mmol/L 26 Anion Gap 9 - 18 mmol/L 13 Calcium 8.5 - 10.2 mg/dL 9.2 eGFR >=60 mL/min/1.73m 97 Assessment and Plan 1. Ulcers of both lower legs (HCC) - ICD9: 707.10, ICD10: L97.919, L97.929 (primary diagnosis) He was advised not to neves returning home. See other phone encounter. Discharge planning will be needed. 2. Lymphedema - ICD9: 457.1, ICD10: I89.0 Improved. 3. Pressure injury of buttock, stage 2, unspecified laterality (HCC) - ICD9: 707.05, 707.22, ICD10: L89.302 Per ECF. 4. Physical debility - ICD9: 799.3, ICD10: R53.81 At risk for cement contractor care need. 5. Lung nodules - ICD9: 793.19, ICD10: R91.8 Radiation oncology recommended bronchoscopy. He used to see [facility]. - CONSULT TO PULMONARY MEDICINE 6. Adenocarcinoma of right lung (HCC) - ICD9: 162.9, ICD10: C34.91 [id number] - CONSULT TO PULMONARY MEDICINE 7. Adenocarcinoma of left lung (HCC) - ICD9: 162.9, ICD10: C34.92 - CONSULT TO PULMONARY MEDICINE 8. Hyponatremia - ICD9: 276.1, ICD10: E87.1 Improved. 9. Anemia, unspecified type - ICD9: 285.9, ICD10: D64.9 Monitor. Inocente Nichols MD documented in this encounter [facility] 02-19-2023 Miscellaneous Notes I spoke with Liliam regarding Dr Harvey's notes from yesterday and explained that Dr Harvey recommended pt see pulmonology regarding CT from 02/11 for bronch and biopsy but that pt declined. Liliam will discuss further with pt and call back with pt's decision. Liliam called stating patient contacted her asking her to speak with office about notes from visit yesterday. She is asking to speak to clinical about Pulmonology referral. documented in this encounter [facility] 02-18-2023 Note HNO ID: [id number] Author: Nghia Harvey MD, MD Service: ? Author Type: Physician Type: Progress Notes Filed: 02/26/2023 4:53 PM Note Text: AMBULATORY TELEPHONE VISIT Kelly Hendrickson Rickie has consented to this telephone encounter. Persons Present: patient Chief Complaint/Reason: Follow-up after radiation treatment. HPI: 1. Enlarging left lower lung nodule suspicious for malignancy s/p SBRT finished on 11/14/22 2. 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 3. Clinical stage IB, T2aN0, non-small cell lung cancer of the left upper lobe treated with SBRT at the [facility] in 03/2020. He had recent multiple episodes of fall and now he is at the half-way facility. Post-SBRT CT chest on 02/11/23 showed a new new consolidative opacity in the left lower lobe obscures obscures a previously described pulmonary nodule. There was increased size of a consolidative opacity in the right lower lobe. There was increased size of a nodule in the medial right middle lobe from 11 x 6 mm to 16 x 9 mm. Data Reviewed: None. Assessment: New progressive right middle lobe lung nodule. Plan: I recommended referral to his associate professor for consideration of bronchoscopy and biopsy. However, he declined it. He is at the half-way home now recuperating from recent multiple falls and he doesn't want to any work-ups at this point. He wants to have a follow-up CT scan in 3 months instead. I will get CT chest in 3 months as he wishes. Total Time Spent: 5-10 minutes including documentation Nghia Harvey MD [facility] 02-18-2023 History of Present illness Narrative AMBULATORY TELEPHONE VISIT Kelly Damian has consented to this telephone encounter. Persons Present: patient Chief Complaint/Reason: Follow-up after radiation treatment. HPI: 1. Enlarging left lower lung nodule suspicious for malignancy s/p SBRT finished on 11/14/22 2. 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 3. Clinical stage IB, T2aN0, non-small cell lung cancer of the left upper lobe treated with SBRT at the [facility] in 03/2020. He had recent multiple episodes of fall and now he is at the half-way facility. Post-SBRT CT chest on 02/11/23 showed a new new consolidative opacity in the left lower lobe obscures obscures a previously described pulmonary nodule. There was increased size of a consolidative opacity in the right lower lobe. There was increased size of a nodule in the medial right middle lobe from 11 x 6 mm to 16 x 9 mm. Data Reviewed: None. Assessment: New progressive right middle lobe lung nodule. Plan: I recommended referral to his associate professor for consideration of bronchoscopy and biopsy. However, he declined it. He is at the half-way home now recuperating from recent multiple falls and he doesn't want to any work-ups at this point. He wants to have a follow-up CT scan in 3 months instead. I will get CT chest in 3 months as he wishes. Total Time Spent: 5-10 minutes including documentation Nghia Harvey MD documented in this encounter [facility] 02-11-2023 Note HNO ID: [id number] Author: Catrachita Perdomo RT(R) Service: ? Author Type: Sausage Maker Type: Progress Notes Filed: 02/11/2023 2:28 PM Note Text: Radiology Service Progress Note PATIENT NAME: Kelly Damian DATE OF SERVICE: February 11, 2023 TIME: 2:28 PM PATIENT IDENTITY VERIFICATION COMPLETED USING TWO (2) IDENTIFIERS: Name and Date of confirmed by patient verbally. FALL SCREENING: Has the patient had 2 falls in the last year or 1 fall with injury or currently using an Ambulatory Assistive Device (Walker, Cane, Wheelchair, Crutches, etc.)? No PATIENT GENDER DATA: Male PATIENT RELEVANT IMPLANT DATA REVIEWED: Yes RADIOLOGY DEPARTMENT: CT; Exam(s) Completed: Chest PERIPHERAL IV DATA: Not applicable SIGNED BY: RT Brennen(R) February 11, 2023 2:28 PM [facility] 02-03-2023 Miscellaneous Notes Okay. Samanta Nurse from [facility] HH at pt's home for initial consult visit. She describes wound on left lower leg as documented previously. She does not feel comfortable with him being taken care of with nursing. By the looks of the wound, she feels pt needs to go to the ER as he also has been falling a lot. Wound has bright yellow pussy looking drainage. She feels pt needs urgent care for the leg. She will call the squad for the patient. BP was 96/65 and pulse 49-50. No fever. She just wanted to update Dr. Nichols that pt is being sent to the ER. Liliam call back to report on [facility] discharge papers it has for pt to stop taking sodium chloride. Liliam is asking if pcp wants pt to stop taking this. Destiney Vick LPN 1) Assist with longterm placement. 2) Clean wound with peroxide. Normal saline wet to dry. Triple antibiotic ointment. Non stick dressings. Compression wrapping for both legs. Change 2 times a week or sooner if soiled. 3) Cephalexin prescribed. Requested Prescriptions Signed Prescriptions Disp Refills cephALEXin (KEFLEX) 500 mg capsule 30 capsule 0 Sig: Take 1 capsule by mouth three times daily for 10 days. Authorizing Provider: INOCENTE NICHOLS Order entered - please phone pharmacy and notify patient. Inocente Nichols MD Liliam from [facility] calls to let provider know that patient is now agreeable to go to rehab as discussed at previous appointment. Patient is not able to get around well and would not be able to come in for appointments. Liliam reports patient hasn't checked with insurance in regards to coverage for rehab. Liliam reports they do have a social media content manager that could look into options for placement. Zully Goss RN Paulina nurse from [facility] calls to report that patient continues to fall repeatedly with most recent time Thursday Night. Patient has abrasion to forehead. Patient has a left leg wound on poe that is about quarter size. Left leg is red, swollen, and hot to touch. Paulina reports that leg looks infected. Patient does not have any dressing on bilateral legs. Unclear if patient is not dressing legs daily. Patient has various superficial wounds to bilateral legs. Paulina states that patient's sister had told her that bilateral legs look about the same as they did when patient was in hospital. Home Care nursing has not seen patient yet. Called and spoke with Liliam at [facility] and Liliam states that they just opened home care on patient today. Liliam states that half-way should see patient today. half-way should call provider for wound care orders. What wound care does provider want done for patient's legs? Does provider want to send in prescription for antibiotics for left leg infection? Does patient need to come into office to assess leg? Please review and advise, Елена Davis RN documented in this encounter [facility] 02-03-2023 Miscellaneous Notes Please see earlier TE from 02/03 for documentation. documented in this encounter [facility] 01-29-2023 Note HNO ID: [id number] Author: Inocente Nichols MD Service: ? Author Type: Physician Type: Progress Notes Filed: 01/31/2023 1:29 AM Note Text: This note was created using SCYFIX. Subjective Kelly Damian is a 72 year old male. He fell coming from pain management and was unable to get up. He was admitted 01/21-01/26/23 with hyponatremia, hypokalemia, atrial fibrillation. He was in ICU and seen by cardiology and nephrology. He was advised ECF by PT and OT but declined. His sister was concerned she will not be able to help care for him due to her own health. He has developed sores in his legs which will need wound care. He had home health set up. Review of Systems Constitutional: Negative for chills, fever and unexpected weight change. HENT: Positive for rhinorrhea. Respiratory: Negative for cough, chest tightness, shortness of breath and wheezing. Cardiovascular: Positive for leg swelling. Negative for chest pain and palpitations. Gastrointestinal: Negative for abdominal pain, diarrhea, nausea and vomiting. Musculoskeletal: Positive for gait problem. Skin: Positive for wound. Neurological: Positive for weakness. 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 fluticasone (FLONASE) 50 mcg/actuation nasal spray Use 2 Sprays in each nostril once daily. Rinse mouth after use. loratadine (CLARITIN) 10 mg tablet Take 1 tablet by mouth once daily. aspirin 81 mg chewable tablet Take 1 tablet by mouth once daily. lactulose 10 gram/15 mL solution Take 30 mL by mouth twice daily as needed (constipation.). atorvastatin (LIPITOR) 80 mg tablet Take 80 mg by mouth once daily. HYDROcodone-acetaminophen (NORCO) 5-325 mg per tablet Take 1 tablet by mouth every 8 hours as needed for pain. losartan (COZAAR) 50 mg tablet Take 1 tablet by mouth once daily. tamsulosin (FLOMAX) 0.4 mg Take 2 capsules by mouth daily at bedtime. VA medication. OLANZapine (ZYPREXA) 15 mg tablet Take 1 tablet by mouth daily at bedtime. VA medication. divalproex ER (DEPAKOTE ER) 500 mg 24 hr tablet Take 1 tablet by mouth daily at bedtime. VA medication. guaiFENesin (HUMIBID E) 400 mg tab Take 1 tablet by mouth three times daily. VA medication. bisacodyl (DULCOLAX) 10 mg supp 10 mg by RECTAL route once daily as needed for constipation. mineral oil (FLEET MINERAL OIL ENEMA) enema 133 mL by RECTAL route one time only. As needed magnesium hydroxide (MOM) 400 mg/5 mL suspension Take by mouth once daily as needed. multivitamin tablet Take 1 tablet by mouth once daily. albuterol HFA (PROVENTIL HFA, VENTOLIN HFA) 90 mcg/actuation inhaler Inhale 1-2 Puffs as instructed four times daily as needed. PULMICORT FLEXHALER 180 mcg/actuation aepb INHALE 2 PUFFS BY MOUTH TWICE DAILY FOR SHORTNESS OF BREATH - RINSE MOUTH AFTER USE cholecalciferol (VITAMIN D3) 1,000 unit tab tablet Take 2,000 Units by mouth once daily. finasteride (PROSCAR) 5 mg tablet Take 5 mg by mouth daily at bedtime. folic acid 1 mg tablet Take by mouth. melatonin 3 mg tablet Take 3 mg by mouth. omeprazole (PRILOSEC) 20 mg capsule TAKE 1 CAPSULE BY MOUTH EVERY DAY FOR GERD thiamine (VITAMIN B1) 100 mg tablet Take by mouth. metOLazone (ZAROXOLYN) 10 mg tablet Take 1 tablet by mouth once daily for 7 days. sodium chloride 1 gram tab Take 1 tablet by mouth three times daily. (Patient taking differently: Take 1 g by mouth three times daily. Taking 4 times daily. [facility] ED 01/21/23.) No current facility-administered medications for this visit. Objective BP 128/64 Pulse 66 Temp 36.3 ?C (97.4 ?F) (Temporal) Resp 28 Wt 99.8 kg (220 lb) SpO2 94% BMI 30.68 kg/m? Physical Exam Constitutional: General: He is not in acute distress. Appearance: He is obese. He is ill-appearing. HENT: Head: Normocephalic. Cardiovascular: Rate and Rhythm: Normal rate and regular rhythm. Heart sounds: No murmur heard. No (more content not included)... [facility] 01-22-2023 Miscellaneous Notes Inocente, Was called at 1100 pm last night( January 21) from [facility] regarding your patient with a Na level 117 Reached out to the contact number immediately and contacted Liliam Schuler RN who was listed as a contact for the patient at [phone]. She assured me that she would contact your patient and have him seen in the [facility] ER for assessment and decisions regarding possible inpatient care The patient was in ER pending sale to [facility] in the day on Thursday the she though but she was unsure whether the patient was admitted . FYI for you that this lab abnormality was dealt with and contact was made for the patient to alert him to seek medical attention. Thanks , Lee Monroy DO documented in this encounter [facility] 01-14-2023 Miscellaneous Notes ASSESSMENT/PLAN: 1. Lymphedema - ICD9: 457.1, ICD10: I89.0 - METOLAZONE 10 MG TABLET - CONSULT TO NON-[facility] FACILITY - BASIC METABOLIC PNL Inocente Nichols MD [facility], Patient has been discharged from . Liliam is going out to the home today, prior to going out she will Patient have him pickup the prescription. Asking for Dr. Nichols to put in the order for BMP and Liliam will instruct Patient come into [facility] lab next week for BMP. Ceci Santamaria LPN Patient's request for medication is as follows Requested Prescriptions Signed Prescriptions Disp Refills metOLazone (ZAROXOLYN) 10 mg tablet 7 tablet 0 Sig: Take 1 tablet by mouth once daily for 7 days. Authorizing Provider: INOCENTE NICHOLS Order entered - please phone pharmacy and notify patient. [facility] draw a BMP in 1 week. Consult the [facility] Wound Center/Lymphedema Clinic. Inocente Nichols MD Liliam with [facility] calls to let provider know that patient was seen yesterday for his weekly visit and patient's bilateral lower legs are red again with increased swelling. The left leg is 3 + pitting with blisters formed. Right is edematous but not as bad with no blisters. Patient is not able to wear his zaynab hose as of yesterday. Patient is currently taking furosemide 40 mg twice daily. Next appointment with PCP is 02/09/2023. Zully Goss RN documented in this encounter [facility] 01-06-2023 Miscellaneous Notes med update 11/13/2022 Patient has been identified by name and date of : Yes Last office visit in this department: 12/26/2022 RX INSTRUCTIONS: Patient aware RX will be sent to pharmacy. No need to notify patient. Patient phones requesting refills as follows: Requested Prescriptions Pending Prescriptions Disp Refills furosemide (LASIX) 40 mg tablet Sig: Take 1 tablet by mouth twice daily. Please review and advise. Vicky Hollins documented in this encounter [facility] 12-26-2022 Note HNO ID: [id number] Author: Inocente Nichols MD Service: ? Author Type: Physician Type: Progress Notes Filed: 12/27/2022 2:34 PM Note Text: This note was created using [employer]. Subjective Patient presents with: Recheck: 6 week follow up Kelly Damian is a 72 year old male was here for follow up. He was concerned about a constant runny nose for 3 or more weeks, with eyes itching and some sneezing. Other concern was his deformed toenails snagging on his socks and shoes. His edema was better. Decubitus ulcer was nearly healed. His back pain was much better with his recent injection from pain management. Review of Systems Constitutional: Negative for fever and unexpected weight change. HENT: Negative for nosebleeds, sinus pressure, sinus pain and sore throat. Eyes: Negative for visual disturbance. Respiratory: Negative for cough, shortness of breath and wheezing. Cardiovascular: Positive for leg swelling. Negative for chest pain and palpitations. Gastrointestinal: Negative for abdominal pain, constipation and diarrhea. Genitourinary: Negative for difficulty urinating. Musculoskeletal: Negative. Neurological: Positive for weakness. Negative for numbness. 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) Obesity, Class I, Bmi 30-34.9 Hyponatremia Uncomplicated Alcohol Dependence (Hcc) Primary Hypertension Thrombocytopenia (Hcc) Pressure Injury of Buttock, Stage 2 (Hcc) Social History Tobacco Use Smoking status: Every Day Packs/day: 2.00 Years: 30.00 Pack years: 60.00 Types: Cigarettes Smokeless tobacco: Never Tobacco comments: 3-4 cigarettes/day 07/29/21 Vaping Use Vaping Use: Never used Substance Use Topics Alcohol use: Yes Alcohol/week: 14.0 standard drinks Types: 14 Cans of beer per week Comment: 2 drinks per day Drug use: No Current Outpatient Medications Medication Sig aspirin 81 mg chewable tablet Take 1 tablet by mouth once daily. furosemide (LASIX) 40 mg tablet Take 1 tablet by mouth twice daily. lactulose 10 gram/15 mL solution Take 30 mL by mouth twice daily as needed (constipation.). sodium chloride 1 gram tab Take 1 tablet by mouth three times daily. atorvastatin (LIPITOR) 80 mg tablet Take 80 mg by mouth once daily. HYDROcodone-acetaminophen (NORCO) 5-325 mg per tablet Take 1 tablet by mouth every 8 hours as needed for pain. losartan (COZAAR) 50 mg tablet Take 1 tablet by mouth once daily. tamsulosin (FLOMAX) 0.4 mg Take 2 capsules by mouth daily at bedtime. VA medication. OLANZapine (ZYPREXA) 15 mg tablet Take 1 tablet by mouth daily at bedtime. VA medication. divalproex ER (DEPAKOTE ER) 500 mg 24 hr tablet Take 1 tablet by mouth daily at bedtime. VA medication. guaiFENesin (HUMIBID E) 400 mg tab Take 1 tablet by mouth three times daily. VA medication. bisacodyl (DULCOLAX) 10 mg supp 10 mg by RECTAL route once daily as needed for constipation. mineral oil (FLEET MINERAL OIL ENEMA) enema 133 mL by RECTAL route one time only. As needed magnesium hydroxide (MOM) 400 mg/5 mL suspension Take by mouth once daily as needed. multivitamin tablet Take 1 tablet by mouth once daily. albuterol HFA (PROVENTIL HFA, VENTOLIN HFA) 90 mcg/actuation inhaler Inhale 1-2 Puffs as instructed four times daily as needed. PULMICORT FLEXHALER 180 mcg/actuation aepb INHALE 2 PUFFS BY MOUTH TWICE DAILY FOR SHORTNESS OF BREATH - RINSE MOUTH AFTER USE cholecalciferol (VITAMIN D3) 1,000 unit tab tablet Take 2,000 Units by mouth once daily. finasteride (PROSCAR) 5 mg tablet Take 5 mg by mouth daily at bedtime. folic acid 1 mg tablet Take by mouth. melatonin 3 mg tablet Take 3 mg by mouth. omeprazole (PRILOSEC) 20 mg capsule TAKE 1 CAPSULE BY MOUTH EVERY DAY FOR GERD thiamine (VITAMIN B1) 100 mg tablet Take by mouth. No current facility-administered medications for this visit. Objective There were no vitals taken for this visit. Physical Exam Constitutional: General: He is not in acute distress. HENT: Right Ear: Tympanic membrane normal. Left Ear: Tympanic membrane normal. Nose: Mucosal edema, congestion and rhinorrhea present. Right Sinus: No maxillary sinus tenderness or frontal sinus tenderness. Left Sinus: No maxillary sinus tenderness or frontal sinus tenderness. Cardiovascular: Rate and Rhythm: Normal rate and regular rhythm (more content not included)... [facility] 12-12-2022 Note HNO ID: [id number] Author: Nghia Harvey MD, MD Service: ? Author Type: Physician Type: Progress Notes Filed: 12/17/2022 1:50 PM Note Text: AMBULATORY TELEPHONE VISIT Kelly Damian has consented to this telephone encounter. Persons Present: patient Chief Complaint/Reason: Four week follow-up after radiation treatment. HPI: 1. Enlarging left lower lung nodule suspicious for malignancy s/p SBRT finished on 11/14/22 2. 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 3. Clinical stage IB, T2aN0, non-small cell lung cancer of the left upper lobe treated with SBRT at the [facility] in 03/2020. He is doing well without any specific new complaints. He denies any chest pain. Baseline respiratory symptoms without significant acute changes. Data Reviewed: None. Assessment: No significant acute complications from recent SBRT. Plan: I Will get post-treatment CT chest in two months. Total Time Spent: 5-10 minutes including documentation Nghia Harvey MD [facility] 12-12-2022 History of Present illness Narrative AMBULATORY TELEPHONE VISIT Kelly Damian has consented to this telephone encounter. Persons Present: patient Chief Complaint/Reason: Four week follow-up after radiation treatment. HPI: 1. Enlarging left lower lung nodule suspicious for malignancy s/p SBRT finished on 11/14/22 2. 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 3. Clinical stage IB, T2aN0, non-small cell lung cancer of the left upper lobe treated with SBRT at the [facility] in 03/2020. He is doing well without any specific new complaints. He denies any chest pain. Baseline respiratory symptoms without significant acute changes. Data Reviewed: None. Assessment: No significant acute complications from recent SBRT. Plan: I Will get post-treatment CT chest in two months. Total Time Spent: 5-10 minutes including documentation Nghia Harvey MD documented in this encounter [facility] 12-01-2022 Miscellaneous Notes Noted Valorie Allan APRN.CNP Teena from [facility] calls to report that today patient's pulse was 47. Patient was asymptomatic. Елена Davis RN documented in this encounter [facility] 11-27-2022 Miscellaneous Notes YOAN Medina @ [facility] calling to let PCP know patient had one time visit today for evaluation and equipment set up. Patient declined further OT services. Says he will work with PT. Carol reports patient's BP was 136/60 today with heart rate 45-49 at rest. Patient told her he is scheduled to see Cardiology at end of the month. Esther Dean, RN documented in this encounter [facility] 11-26-2022 Miscellaneous Notes Order called back to [facility]. Continue barrier cream. Yasmeen notified of below response, verbalized understanding. Patient has bilateral rash on buttocks, two small 1.5 x 0.4, nondraining, no redness, Asking for order to continue to use a barrier cream. Ceci Santamaria LPN Okay for below orders. With a history of heart disease it is recommended to take ASA 81 mg daily, okay to continue Valorie Allan APRN.CARROL [facility] nurse Yasmeen started home care with pt today. Freq will be 2X wk X 4 wks & 1X wk X 1wk for wound care. VO? Yasmeen states she found asa 81 mg in pts meds & is asking if this is something he should be taking? It is not on his med list. Please advise. Radha Llamas LPN documented in this encounter [facility] 11-24-2022 Miscellaneous Notes Pt was seen in the office. Nereyda Sheriff LPN Liliam with [facility] called with a pt update. They see pt weekly with to help with his medications. Lilaim reports pt is declining. He has not had a BM in 5 to 6 days. Pt reports he is drinking fluids but has not appetite. Pt has 1 radiation treatment left and per Dr. Harvey the decreased appetite could be a side effect. Pt was given MOM yesterday and today and has not had any results as of 10:13 am. Pt also having bilateral leg swelling, Having redness and it is painful where pt has a wound on right leg. Pt will be seeing Wound Care today for his wound at 3:30 pm. Liliam was also asking about HH or Palliative Care. Per Liliam pt is josephine need of further help Liliam wanted to get apt for pt to be seen today. Apt booked for today with provider. Please discuss above per Liliam. Please advise Liliam if needed Nereyda Sheriff LPN documented in this encounter [facility] 11-18-2022 Miscellaneous Notes Liliam with [facility] calls to request last OV for pt to be faxed to: [phone]. OV notes faxed as requested. Destiney Vick LPN documented in this encounter [facility] 11-17-2022 Miscellaneous Notes Information provided & faxed back. Ceci Santamaria LPN [place] @ [facility] calling with request home health orders and demographics be faxed to [phone]. She says the note that was sent showing Assessment/Plan is not an order. She says she usually receives something that actually says Home Health Order and is signed by PCP. Esther Dean RN documented in this encounter [facility] 11-17-2022 Miscellaneous Notes Pt was seen and evaluated by PCP 11/13/22. Pt's home health nurse called to report pt has increased fatigue and decreased appetite. Pt is still drinking alcohol and coffee and fluids but has not eaten much this week. I advised nurse to encourage him to eat or use protein shakes to supplement nutrition. I also advised that pt should decrease alcohol intake, which she reports she has already advised but he declines. Pt is not having difficulty swallowing or pain with swallowing. Pt is having constipation likely due to pain medication intake. Pt has already used milk of magnesia. I did advise to use enema or suppository if no results from MOM. documented in this encounter [facility] 11-14-2022 Note Education (BENRICE) KELLY DAMIAN ([id number]) 1950 M [facility] Date Time Provider Department 11/14/22 NGHIA HARVEY MDTWS Reason for Visit: Patient Education [91] Cmt: Discharge instructions-completed radiation Visit Notes: >> Isela Harmon RN ThuNov 14, 2022 3:09 PM Status: Signed AMBULATORY PATIENT EDUCATION NOTE TOPIC: SURVIVAL SKILLS: Symptom Management READINESS TO LEARN COGNITIVE ABILITY: Alert and oriented MOTIVATION TO LEARN: Interested FAMILY SUPPORT: Unable to assess - Family not present INSTRUCTION PROVIDED TO: Patient PATIENT LEARNS BEST BY: Multiple Methods FACTORS AFFECTING LEARNING: None PHYSICAL LIMITATIONS AFFECTING LEARNING: Limited Mobility LEARNING RESPONSE DIAGNOSIS: C34.41 METHOD OF INSTRUCTION: Teach Back skin care Individual instruction Written instruction - handouts Verbal instruction PATIENT / FAMILY RESPONSE: Verbalizes understanding of: D/C sheet FOLLOW-UP PLAN: Patient instructed to call with any further issues Reinforce - Repeat previous content Contact information given. SUPPLEMENTAL MATERIAL: D/C sheet REFERRAL (RECOMMENDATION): None Written discharge instructions given and reviewed with patient. Patient verbalizes understanding. Encouraged to call with any questions or concerns. Instruction for 4 week phone follow up appointment given by Dr. Harvey. Electronically Signed By: Isela Harmon RN In Department: RADIATION ONCOLOGY Time spent on patient education: 05 minutes. During your visit today, we recorded the following information about you: Allergies As of Date: 11/14/2022 (No Known Allergies) Date Reviewed: 11/13/2022 Reviewed by: Elana Singh MA - Fully Assessed Prescriptions as of 11/14/2022 - furosemide (LASIX) 40 mg tablet Take 1 tablet by mouth twice daily. - lactulose 10 gram/15 mL solution Take 30 mL by mouth twice daily as needed (constipation.). - sodium chloride 1 gram tab Take 1 tablet by mouth three times daily. - atorvastatin (LIPITOR) 80 mg tablet Take 80 mg by mouth once daily. - HYDROcodone-acetaminophen (NORCO) 5-325 mg per tablet Take 1 tablet by mouth every 8 hours as needed for pain. - losartan (COZAAR) 50 mg tablet Take 1 tablet by mouth once daily. - tamsulosin (FLOMAX) 0.4 mg Take 2 capsules by mouth daily at bedtime. [facility] medication. - OLANZapine (ZYPREXA) 15 mg tablet Take 1 tablet by mouth daily at bedtime. VA medication. - divalproex ER (DEPAKOTE ER) 500 mg 24 hr tablet Take 1 tablet by mouth daily at bedtime. VA medication. - guaiFENesin (HUMIBID E) 400 mg tab Take 1 tablet by mouth three times daily. VA medication. - bisacodyl (DULCOLAX) 10 mg supp 10 mg by RECTAL route once daily as needed for constipation. - mineral oil (FLEET MINERAL OIL ENEMA) enema 133 mL by RECTAL route one time only. As needed - magnesium hydroxide (MOM) 400 mg/5 mL suspension Take by mouth once daily as needed. - multivitamin tablet Take 1 tablet by mouth once daily. - albuterol HFA (PROVENTIL HFA, VENTOLIN HFA) 90 mcg/actuation inhaler Inhale 1-2 Puffs as instructed four times daily as needed. - PULMICORT FLEXHALER 180 mcg/actuation aepb INHALE 2 PUFFS BY MOUTH TWICE DAILY FOR SHORTNESS OF BREATH - RINSE MOUTH AFTER USE - cholecalciferol (VITAMIN D3) 1,000 unit tab tablet Take 2,000 Units by mouth once daily. - finasteride (PROSCAR) 5 mg tablet Take 5 mg by mouth daily at bedtime. - folic acid 1 mg tablet Take by mouth. - melatonin 3 mg tablet Take 3 mg by mouth. - omeprazole (PRILOSEC) 20 mg capsule TAKE 1 CAPSULE BY MOUTH EVERY DAY FOR GERD - thiamine (VITAMIN B1) 100 mg tablet Take by mouth. Encounter Status:Closed by ISELA HARMON on 11/14/22 [facility] 11-14-2022 Note HNO ID: [id number] Author: Nghia Harvey MD, MD Service: Radiation Oncology Author Type: Physician Type: Progress Notes Filed: 11/19/2022 12:35 AM Note Text: KELLY DAMIAN [id number] : 1950 11/14/2022 [facility] Department of Radiation Oncology RADIATION ONCOLOGY - COMPLETION NOTE DATE OF SIMULATION: 10/23/22 DATES OF TREATMENT: 11/05/22 - 11/14/22 UNIT: W_TRUEBEAM AREA TREATED: Left lower lung DISEASE: 1. Enlarging left lower lung nodule suspicious for malignancy. 2. 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 3. Clinical stage IB, T2aN0, non-small cell lung cancer of the left upper lobe treated with SBRT at the [facility] in 03/2020. DELIVERED DOSE: 5000 cGy in 5 fractions treating to the 77.4% isodose line with 6MV FFF and 2 farley. ELAPSED TIME: 9 days. TOLERANCE/ RESPONSE: He is doing well without any specific new complaints related to radiation treatment. Baseline respiratory symptoms without significant acute changes. REMARKS: He tolerated radiation treatment well. Four week follow-up with me. Staff Physician NGHIA HARVEY M.D. / 31:02 PM Electronically Signed cc: Inocente Nichols [address] [place] [address] [facility] 11-14-2022 History of Present illness Narrative KELLY DAMIAN. [id number] : 1950 11/14/2022 [facility] Department of Radiation Oncology RADIATION ONCOLOGY - COMPLETION NOTE DATE OF SIMULATION: 10/23/22 DATES OF TREATMENT: 11/05/22 - 11/14/22 UNIT: W_TRUEBEAM AREA TREATED: Left lower lung DISEASE: 1. Enlarging left lower lung nodule suspicious for malignancy. 2. 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 3. Clinical stage IB, T2aN0, non-small cell lung cancer of the left upper lobe treated with SBRT at the [facility] in 03/2020. DELIVERED DOSE: 5000 cGy in 5 fractions treating to the 77.4% isodose line with 6MV FFF and 2 farley. ELAPSED TIME: 9 days. TOLERANCE/ RESPONSE: He is doing well without any specific new complaints related to radiation treatment. Baseline respiratory symptoms without significant acute changes. REMARKS: He tolerated radiation treatment well. Four week follow-up with me. Staff Physician NGHIA HARVEY M.D. / :02 PM Electronically Signed cc: Inocente Nichols [address] [place] [address] documented in this encounter [facility] 11-13-2022 Note HNO ID: [id number] Author: Inocente Nichols MD Service: ? Author Type: Physician Type: Progress Notes Filed: 11/15/2022 12:57 PM Note Text: This note was created using NoteWriter. Subjective Kelly Damian is a 72 year old male. 1950 He was here with his sister concerned with constipation and increasing edema. He has not had a bowel movement for one week. He denied abdominal pain. He just saw podiatry for a right foot wound. We reduced his furosemide 3 weeks ago due to urinary incontinence. He was going thru his incontinence supplies rapidly. There was also concern back then for diarrhea but this has resolved. Review of Systems Constitutional: Negative for fever. HENT: Negative. Negative for congestion. Respiratory: Negative for cough and shortness of breath. Cardiovascular: Negative for chest pain and palpitations. Gastrointestinal: Negative for abdominal pain, diarrhea, nausea, rectal pain and vomiting. Genitourinary: Negative for difficulty urinating. 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) Obesity, Class I, Bmi 30-34.9 Hyponatremia Uncomplicated Alcohol Dependence (Hcc) Primary Hypertension Thrombocytopenia ([facility]) Social History Tobacco Use Smoking status: Every Day Packs/day: 2.00 Years: 30.00 Pack years: 60.00 Types: Cigarettes Smokeless tobacco: Never Tobacco comments: 3-4 cigarettes/day 07/29/21 Vaping Use Vaping Use: Never used Substance Use Topics Alcohol use: Yes Alcohol/week: 14.0 standard drinks Types: 14 Cans of beer per week Comment: 2 drinks per day Drug use: No Current Outpatient Medications Medication Sig sodium chloride 1 gram tab Take 1 tablet by mouth three times daily. atorvastatin (LIPITOR) 80 mg tablet Take 80 mg by mouth once daily. furosemide (LASIX) 40 mg tablet Take 1 tablet by mouth once daily. HYDROcodone-acetaminophen (NORCO) 5-325 mg per tablet Take 1 tablet by mouth every 8 hours as needed for pain. losartan (COZAAR) 50 mg tablet Take 1 tablet by mouth once daily. tamsulosin (FLOMAX) 0.4 mg Take 2 capsules by mouth daily at bedtime. VA medication. OLANZapine (ZYPREXA) 15 mg tablet Take 1 tablet by mouth daily at bedtime. VA medication. divalproex ER (DEPAKOTE ER) 500 mg 24 hr tablet Take 1 tablet by mouth daily at bedtime. VA medication. guaiFENesin (HUMIBID E) 400 mg tab Take 1 tablet by mouth three times daily. VA medication. bisacodyl (DULCOLAX) 10 mg supp 10 mg by RECTAL route once daily as needed for constipation. mineral oil (FLEET MINERAL OIL ENEMA) enema 133 mL by RECTAL route one time only. As needed magnesium hydroxide (MOM) 400 mg/5 mL suspension Take by mouth once daily as needed. multivitamin tablet Take 1 tablet by mouth once daily. albuterol HFA (PROVENTIL HFA, VENTOLIN HFA) 90 mcg/actuation inhaler Inhale 1-2 Puffs as instructed four times daily as needed. PULMICORT FLEXHALER 180 mcg/actuation aepb INHALE 2 PUFFS BY MOUTH TWICE DAILY FOR SHORTNESS OF BREATH - RINSE MOUTH AFTER USE cholecalciferol (VITAMIN D3) 1,000 unit tab tablet Take 2,000 Units by mouth once daily. finasteride (PROSCAR) 5 mg tablet Take 5 mg by mouth daily at bedtime. folic acid 1 mg tablet Take by mouth. melatonin 3 mg tablet Take 3 mg by mouth. omeprazole (PRILOSEC) 20 mg capsule TAKE 1 CAPSULE BY MOUTH EVERY DAY FOR GERD thiamine (VITAMIN B1) 100 mg tablet Take by mouth. No current facility-administered medications for this visit. Objective BP 146/70 Pulse (!) 56 Temp 36.9 ?C (98.5 ?F) (Temporal) Resp 24 Wt 108.4 kg (239 lb) SpO2 92% BMI 33.33 kg/m? Physical Exam Cardiovascular: Rate and Rhythm: Regular rhythm. Bradycardia present. Heart sounds: No murmur heard. No gallop. Pulmonary: Breath sounds: Rhonchi present. Abdominal: General: Bowel sounds are normal. There is distension. Palpations: There is no mass. Tenderness: There is no abdominal tenderness. Musculoskeletal: Right lower le+ Edema present. Left lower le+ Edema present. Skin: Comments: Stasis erythema of lower legs, left more than right. Neurological: Mental Status: He is alert. Comments: Wheelchair bound. Assessment and Plan 1. Lymphedema - ICD9: 457.1, ICD10: I89.0 (primary diagnosis) Increase furosemide back to 40 MG BID. - FUROSEMIDE 40 MG TABLET - CBC - COMP METABOLIC PANE (more content not included)... [facility] 11-13-2022 Instructions Inocente Nichols MD - 11/13/2022 7:27 PM EDT BLOOD WORK IN 4-6 WEEKS. INCREASE FUROSEMIDE TO 40 MG TWICE A DAY. LACTULOSE ORAL SOLUTION FOR CONSTIPATION. documented in this encounter [facility] 11-13-2022 History of Present illness Narrative This note was created using SCYFIX. Subjective Kelly Damian is a 72 year old male. 1950 He was here with his sister concerned with constipation and increasing edema. He has not had a bowel movement for one week. He denied abdominal pain. He just saw podiatry for a right foot wound. We reduced his furosemide 3 weeks ago due to urinary incontinence. He was going thru his incontinence supplies rapidly. There was also concern back then for diarrhea but this has resolved. Review of Systems Constitutional: Negative for fever. HENT: Negative. Negative for congestion. Respiratory: Negative for cough and shortness of breath. Cardiovascular: Negative for chest pain and palpitations. Gastrointestinal: Negative for abdominal pain, diarrhea, nausea, rectal pain and vomiting. Genitourinary: Negative for difficulty urinating. 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) Obesity, Class I, Bmi 30-34.9 Hyponatremia Uncomplicated Alcohol Dependence (Hcc) Primary Hypertension Thrombocytopenia (Hcc) Social History Tobacco Use Smoking status: Every Day Packs/day: 2.00 Years: 30.00 Pack years: 60.00 Types: Cigarettes Smokeless tobacco: Never Tobacco comments: 3-4 cigarettes/day 07/29/21 Vaping Use Vaping Use: Never used Substance Use Topics Alcohol use: Yes Alcohol/week: 14.0 standard drinks Types: 14 Cans of beer per week Comment: 2 drinks per day Drug use: No Current Outpatient Medications Medication Sig sodium chloride 1 gram tab Take 1 tablet by mouth three times daily. atorvastatin (LIPITOR) 80 mg tablet Take 80 mg by mouth once daily. furosemide (LASIX) 40 mg tablet Take 1 tablet by mouth once daily. HYDROcodone-acetaminophen (NORCO) 5-325 mg per tablet Take 1 tablet by mouth every 8 hours as needed for pain. losartan (COZAAR) 50 mg tablet Take 1 tablet by mouth once daily. tamsulosin (FLOMAX) 0.4 mg Take 2 capsules by mouth daily at bedtime. VA medication. OLANZapine (ZYPREXA) 15 mg tablet Take 1 tablet by mouth daily at bedtime. VA medication. divalproex ER (DEPAKOTE ER) 500 mg 24 hr tablet Take 1 tablet by mouth daily at bedtime. VA medication. guaiFENesin (HUMIBID E) 400 mg tab Take 1 tablet by mouth three times daily. VA medication. bisacodyl (DULCOLAX) 10 mg supp 10 mg by RECTAL route once daily as needed for constipation. mineral oil (FLEET MINERAL OIL ENEMA) enema 133 mL by RECTAL route one time only. As needed magnesium hydroxide (MOM) 400 mg/5 mL suspension Take by mouth once daily as needed. multivitamin tablet Take 1 tablet by mouth once daily. albuterol HFA (PROVENTIL HFA, VENTOLIN HFA) 90 mcg/actuation inhaler Inhale 1-2 Puffs as instructed four times daily as needed. PULMICORT FLEXHALER 180 mcg/actuation aepb INHALE 2 PUFFS BY MOUTH TWICE DAILY FOR SHORTNESS OF BREATH - RINSE MOUTH AFTER USE cholecalciferol (VITAMIN D3) 1,000 unit tab tablet Take 2,000 Units by mouth once daily. finasteride (PROSCAR) 5 mg tablet Take 5 mg by mouth daily at bedtime. folic acid 1 mg tablet Take by mouth. melatonin 3 mg tablet Take 3 mg by mouth. omeprazole (PRILOSEC) 20 mg capsule TAKE 1 CAPSULE BY MOUTH EVERY DAY FOR GERD thiamine (VITAMIN B1) 100 mg tablet Take by mouth. No current facility-administered medications for this visit. Objective BP 146/70 Pulse (!) 56 Temp 36.9 C (98.5 F) (Temporal) Resp 24 Wt 108.4 kg (239 lb) SpO2 92% BMI 33.33 kg/m Physical Exam Cardiovascular: Rate and Rhythm: Regular rhythm. Bradycardia present. Heart sounds: No murmur heard. No gallop. Pulmonary: Breath sounds: Rhonchi present. Abdominal: General: Bowel sounds are normal. There is distension. Palpations: There is no mass. Tenderness: There is no abdominal tenderness. Musculoskeletal: Right lower le+ Edema present. Left lower le+ Edema present. Skin: Comments: Stasis erythema of lower legs, left more than right. Neurological: Mental Status: He is alert. Comments: Wheelchair bound. Assessment and Plan 1. Lymphedema - ICD9: 457.1, ICD10: I89.0 (primary diagnosis) Increase furosemide back to 40 MG BID. - FUROSEMIDE 40 MG TABLET - CBC - COMP METABOLIC PANEL 2. Spinal stenosis, lumbar region, with neurogenic claudication - ICD9: 724.03, ICD10: M48.062 On chronic opioids from pain management. 3. Urinary incontinence, unspecified type - ICD9: 788.30, ICD10: R32 Change undergarment regularly. 4. Physical debility - ICD9: 799.3, ICD10: R53.81 Continue PT. 5. Constipation, unspecified constipation type - ICD9: 564.00, ICD10: K59.00 Discussed medication dosage, usage, goals of therapy, and side effects. - LACTULOSE 10 GRAM/15 ML ORAL SOLUTION 6. Primary hypertension - ICD9: 401.9, ICD10: I10 - good control - LIPID PANEL, NONFASTING Inocente Nichols MD documented in this encounter [facility] 11-10-2022 Note HNO ID: [id number] Author: Nghia Harvey MD, Service: ? Author Type: Physician Type: Progress Notes Filed: 11/10/2022 3:18 PM Note Text: Radiation Oncology - On Treatment Review (OTR) Note PATIENT NAME: Kelly Damian PATIENT DIAGNOSIS: 1. Enlarging left lower lung nodule suspicious for malignancy. 2. 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 3. Clinical stage IB, T2aN0, non-small cell lung cancer of the left upper lobe treated with SBRT at the [facility] in 03/2020. COURSE: definitive AREA TREATED: left lower lung CURRENT DOSE: 3000 cGy in 3 fx PLANNED DOSE: 5000 cGy in 5 fx SUBJECTIVE: He is doing well without any specific new complaints related to radiation treatment. Baseline respiratory symptoms without significant acute changes. EXAM: KPS: 70 General Appearance: Alert and oriented. No acute distress. IMAGING/LAB RESULTS: None Treatment chart checked: Yes Patient treatment site reviewed and verified:Yes CBCTs reviewed and current:Yes Medications started: None ASSESSMENT/PLAN: Clinically stable. No signs of toxicity. Continue radiation treatment as planned. Nghia Harvey MD [facility] 11-10-2022 Nurse Note Radiation Therapy - Nursing Note (OTV) PATIENT NAME: Kelly Damian PATIENT November 10, 2022 [facility] FACILITY/LOCATION: [place] NURSING NOTE TYPE: CHEST Subjective Data has area of swelling on right side of neck, he was not aware of it. States he fell on Thursday at home and did not fall on that side, he just tripped and fell no LOC Additional Data Do you want to see a Portable Router Operator? No Status: Patient is male Stress Scale: On a scale of 0 to 10, what number best describes how much distress you have experienced in the past week?(0 being no distress and 10 being extreme distress) 5 Social work notified: Pt denied need to see social media content manager at this time. Nursing Assessment Fatigue: moderate; causing difficulty performing some activities Appetite: poor Nutritional Intake: Regular oral intake. Weight Gain/Loss: Not applicable Ambulatory weight history: Last 6 Encounter Wt Readings: Date: Wt: 10/08/2022 0 kg () 08/11/2022 112.9 kg (249 lb) 07/16/2022 114.8 kg (253 lb) 05/30/2022 111.6 kg (246 lb) 03/19/2022 113.5 kg (250 lb 4.8 oz) 02/06/2022 117.8 kg (259 lb 9.6 oz) Nausea:None Vomiting: None Bowel Function: constipation last BM 4 days ago trying miralax and prune juice Erythema/Hyperpigmentation:none Desquamation:none Rash:none Skin Care: None Skin Sensation: Within Normal Limits Focused Assessment CHEST: Dysphagia: No. Pain with swallowing: No. Shortness of breath: stable. Cough: stable. SIGNED by: Marisol Watters RN documented in this encounter [facility] 11-10-2022 History of Present illness Narrative Radiation Oncology - On Treatment Review (OTR) Note PATIENT NAME: Kelly Damian PATIENT DIAGNOSIS: 1. Enlarging left lower lung nodule suspicious for malignancy. 2. 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 3. Clinical stage IB, T2aN0, non-small cell lung cancer of the left upper lobe treated with SBRT at the [facility] in 03/2020. COURSE: definitive AREA TREATED: left lower lung CURRENT DOSE: 3000 cGy in 3 fx PLANNED DOSE: 5000 cGy in 5 fx SUBJECTIVE: He is doing well without any specific new complaints related to radiation treatment. Baseline respiratory symptoms without significant acute changes. EXAM: KPS: 70 General Appearance: Alert and oriented. No acute distress. IMAGING/LAB RESULTS: None Treatment chart checked: Yes Patient treatment site reviewed and verified:Yes CBCTs reviewed and current:Yes Medications started: None ASSESSMENT/PLAN: Clinically stable. No signs of toxicity. Continue radiation treatment as planned. Nghia Harvey MD documented in this encounter [facility] 11-10-2022 Miscellaneous Notes From 10/29/22 [facility] request for HHS. This has been ordered but [facility] needs an office note completed for this need. This was relayed to the [facility] care nurse last week since pt had an appt with [facility] 11/10/22. Reccommended then they encourage pt to come to the [facility] appt. Pt has cancelled the appt today. Next appt with pcp is January. Message left to Liliam [facility] nurse with this info. documented in this encounter [facility] 10-30-2022 Miscellaneous Notes Liliam at [facility] notified of provider's response below. Telephone order for Home Health faxed to [facility] per Liliam's request. Gaby Canas RN ASSESSMENT/PLAN: 1. Wound of right lower extremity, subsequent encounter - ICD9: V58.89, 894.0, ICD10: S81.801D (primary diagnosis) 2. Urinary incontinence, unspecified type - ICD9: 788.30, ICD10: R32 3. Physical debility - ICD9: 799.3, ICD10: R53.81 4. Lymphedema - ICD9: 457.1, ICD10: I89.0 Consult Home Health for skilled nurse, wound care, PT, OT. Inocente Nichols MD Liliam with [facility] called in and reports she sees the Pt weekly. She states they decreased his Lasix dose to 40 mg daily from BID, and the Pt is still incontinent of urine 3-4 times a day but has not been incontinent or bowel. Pt wears adult attends. Pt sees Dr Murphy for wound care, she states she isn't trained, she she is not able to change it when she does her visits. She states Pt had his first radiation mapping and it was very hard to get him in and out of the car and to his appointment he was so weak. She states he never used to have any issues getting in/out of the car, but he is weaker. She thinks he would benefit from [facility] PT/OT/SN. She states she isn't sure how he is going to make it following appointments without help. She said the SN would be able to help with dressing changes and compression. Pt has his next radiation appointment on 11/05. Please call and advise. documented in this encounter [facility] 10-23-2022 Note HNO ID: [id number] Author: Nghia Harvey MD, MD Service: Radiation Oncology Author Type: Physician Type: Progress Notes Filed: 10/30/2022 12:35 AM Note Text: KELLY DAMIAN [id number] 10/23/2022 [facility] Department of Radiation Oncology [facility] RADIATION ONCOLOGY SIMULATION NOTE DATE OF SIMULATION: 10/23/2022 MACHINE: [employer] Definition CT Simulator Diagnosis: 1. Enlarging left lower lung nodule likely to be malignancy. 2. 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 3. Clinical stage IB, T2aN0, non-small cell lung cancer of the left upper lobe treated with SBRT at the [facility] in 03/2020. AREA:left lower lung PATIENT POSITION: Supine. CONTRAST: None PROTOCOL: None BLOCKING: Custom blocking to be determined at treatment planning. FIXATION DEVICE: In order to achieve accurate and reproducible treatments, the patient is to be immobilized with [employer] SBRT system, full body vac bag, and compression belt. PROCEDURE: A time-out was conducted and recorded by the therapist. Patient was simulated on the CT scanner for external beam radiation therapy. Treatment site was marked by the simulation therapist. ASSESSMENT/PLAN: Patient tolerated simulation procedure well. Treatments will be initiated after treatment planning. The patient is scheduled for a verification simulation on the treatment machine to ensure proper set-up and field arrangement is correct prior to the first treatment of primary and boost farley if applicable. Electronically Signed Nghia Harvey M.D./marlo :39 PM [facility] 10-23-2022 Note HNO ID: [id number] Author: Nghia Harvey MD, MD Service: Radiation Oncology Author Type: Physician Type: Progress Notes Filed: 11/05/2022 12:35 AM Note Text: KELLY DAMIAN [id number] 10/23/2022 [facility] Department of Radiation Oncology Treatment Planning Note For reasons stated in the consult note, Kelly Damian is a candidate for radiation therapy. Based on review and interpretation of the relevant diagnostic studies together with the exam findings, Kelly Damian was simulated on 10/23/2022 at which time the target volume and/or requisite farley were delineated, as indicated in the simulation note, to be treated according to the prescription. An ITV was created from all the phases of respiratory motion captured by the 4DCT image sets. Motion management allowed for design of patient specific planning target volume and reduced the radiation exposure to normal tissues. The treatment target and organs at risk were contoured on the simulation scan. Special consideration to these and other structures was given in light of the potential for increased toxicities of stereotactic body radiation therapy (SBRT). After reviewing multiple treatment plans with dosimetry, the best plan was approved to deliver the prescribed course of radiation to the target area using inverse planning to allow for the best isodose distribution, treating to the 77.4% isodose line with 6MV FFF and 2 farley. Custom MLC and asym jaws for IMRT were the treatment devices used to shape/modify the beams. Limiting dose to normal tissue was confirmed upon review of the calculated dose volume histogram. IMRT planning was used because it best met the dose/volume constraints for the organs at risk for this patient, better than what could be achieved using conventional or 3D planning. The specific dose requirements for the PTV, organs at risk and dose-volume histograms are contained in this treatment plan and/or elsewhere in the medical record. A completed summary of this plan dated 11/04/2022 incorporated herein by reference includes dose, beam arrangements, energy, blocking, isodose distribution, and/or ports and DVH. Electronically Signed Nghia Harvey M.D. 0:43 AM [facility] 10-23-2022 History of Present illness Narrative KELLY DAMIAN [id number] 10/23/2022 [facility] Department of Radiation Oncology [facility] RADIATION ONCOLOGY SIMULATION NOTE DATE OF SIMULATION: 10/23/2022 MACHINE: Siemens Definition CT Simulator Diagnosis: 1. Enlarging left lower lung nodule likely to be malignancy. 2. 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 3. Clinical stage IB, T2aN0, non-small cell lung cancer of the left upper lobe treated with SBRT at the [facility] in 03/2020. AREA:left lower lung PATIENT POSITION: Supine. CONTRAST: None PROTOCOL: None BLOCKING: Custom blocking to be determined at treatment planning. FIXATION DEVICE: In order to achieve accurate and reproducible treatments, the patient is to be immobilized with [employer] SBRT system, full body vac bag, and compression belt. PROCEDURE: A time-out was conducted and recorded by the therapist. Patient was simulated on the CT scanner for external beam radiation therapy. Treatment site was marked by the simulation therapist. ASSESSMENT/PLAN: Patient tolerated simulation procedure well. Treatments will be initiated after treatment planning. The patient is scheduled for a verification simulation on the treatment machine to ensure proper set-up and field arrangement is correct prior to the first treatment of primary and boost farley if applicable. Electronically Signed Nghia Harvey M.D./marlo 33:39 PM documented in this encounter [facility] 10-23-2022 History of Present illness Narrative KELLY DAMIAN [id number] 10/23/2022 [facility] Department of Radiation Oncology Treatment Planning Note For reasons stated in the consult note, Kelly Damian is a candidate for radiation therapy. Based on review and interpretation of the relevant diagnostic studies together with the exam findings, Kelly Damian was simulated on 10/23/2022 at which time the target volume and/or requisite farley were delineated, as indicated in the simulation note, to be treated according to the prescription. An ITV was created from all the phases of respiratory motion captured by the 4DCT image sets. Motion management allowed for design of patient specific planning target volume and reduced the radiation exposure to normal tissues. The treatment target and organs at risk were contoured on the simulation scan. Special consideration to these and other structures was given in light of the potential for increased toxicities of stereotactic body radiation therapy (SBRT). After reviewing multiple treatment plans with dosimetry, the best plan was approved to deliver the prescribed course of radiation to the target area using inverse planning to allow for the best isodose distribution, treating to the 77.4% isodose line with 6MV FFF and 2 farley. Custom MLC and asym jaws for IMRT were the treatment devices used to shape/modify the beams. Limiting dose to normal tissue was confirmed upon review of the calculated dose volume histogram. IMRT planning was used because it best met the dose/volume constraints for the organs at risk for this patient, better than what could be achieved using conventional or 3D planning. The specific dose requirements for the PTV, organs at risk and dose-volume histograms are contained in this treatment plan and/or elsewhere in the medical record. A completed summary of this plan dated 11/04/2022 incorporated herein by reference includes dose, beam arrangements, energy, blocking, isodose distribution, and/or ports and DVH. Electronically Signed Nghia Harvey M.D. 0:43 AM documented in this encounter [facility] 10-20-2022 Miscellaneous Notes Orders called back to [facility]. 1) Monitor bradycardia. Advise ER for symptoms like dyspnea or syncope. 2) Okay to reduce Lasix to 40 mg once daily. 3) If diarrhea persists, check stool for clostridium difficile. Liliam nurse @ [facility] calling with update. She reports patient's heart rate has been in the 40's and regular the last 3 visits. She sees him once a week. He has no symptoms of dizziness nor lightheadedness. He had Vascular Studies done @ [facility] on 10/02. Dr. Mandie Kelsey, Vascular Surgeon started him on Atorvastatin 80 mg daily and ASA 81 mg daily. She reports that over the past week patient says he has had bowel incontinence of liquid and formed stool once a day. He is unable to make it to the bathroom in time. She says he does not complain of abdominal pain nor diarrhea. He also has trouble getting to the bathroom to urinate after taking Lasix. She says this has been ongoing since starting Lasix and he has no other urinary symptoms. Esther Dean RN documented in this encounter [facility] 10-09-2022 Note HNO ID: [id number] Author: Nghia Harvey MD, MD Service: ? Author Type: Physician Type: Progress Notes Filed: 10/10/2022 3:11 PM Note Text: Radiation Oncology - Follow Up Note PATIENT NAME: Kelly Damian PATIENT DIAGNOSIS: 1. Enlarging left lower lung nodule suspicious for malignancy. 2. 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 3. Clinical stage IB, T2aN0, non-small cell lung cancer of the left upper lobe treated with SBRT at the [facility] in 03/2020. INTERVAL HISTORY: He had surveillance CT chests for his treated right lung cancer. CT on 05/02/22 showed interval increase in size of cavitary nodule in the left lower lobe from 1.2 cm on 01/16/[address] guided biopsy of the left lung lesion on 05/22/22 at the [facility] showed, Atypical epithelial cells suspicious for malignancy. PET/CT scan on 06/18/23 showed, There is subtle increased tracer uptake noted in the left lower posterolateral lung zone, left lower lobe with a calculated standard uptake value of 1.3. Quantitative criteria for viable neoplasm are not fulfilled. Follow-up CT chest on 10/01/22 showed increase in size of the left lower lobe nodule measuring 1.8 x 2 cm from 1.6 cm. ALLERGIES No Known Allergies MEDICATIONS: HYDROcodone-acetaminophen (NORCO) 5-325 mg per tablet Take 1 tablet by mouth every 8 hours as needed for pain. sodium chloride 1 gram tab Take 1 tablet by mouth three times daily. furosemide (LASIX) 40 mg tablet Take 1 tablet by mouth twice daily. losartan (COZAAR) 50 mg tablet Take 1 tablet by mouth once daily. tamsulosin (FLOMAX) 0.4 mg Take 2 capsules by mouth daily at bedtime. [facility] medication. OLANZapine (ZYPREXA) 15 mg tablet Take 1 tablet by mouth daily at bedtime. VA medication. divalproex ER (DEPAKOTE ER) 500 mg 24 hr tablet Take 1 tablet by mouth daily at bedtime. VA medication. guaiFENesin (HUMIBID E) 400 mg tab Take 1 tablet by mouth three times daily. VA medication. bisacodyl (DULCOLAX) 10 mg supp 10 mg by RECTAL route once daily as needed for constipation. mineral oil (FLEET MINERAL OIL ENEMA) enema 133 mL by RECTAL route one time only. As needed magnesium hydroxide (MOM) 400 mg/5 mL suspension Take by mouth once daily as needed. multivitamin tablet Take 1 tablet by mouth once daily. albuterol HFA (PROVENTIL HFA, VENTOLIN HFA) 90 mcg/actuation inhaler Inhale 1-2 Puffs as instructed four times daily as needed. PULMICORT FLEXHALER 180 mcg/actuation aepb INHALE 2 PUFFS BY MOUTH TWICE DAILY FOR SHORTNESS OF BREATH - RINSE MOUTH AFTER USE cholecalciferol (VITAMIN D3) 1,000 unit tab tablet Take 2,000 Units by mouth once daily. finasteride (PROSCAR) 5 mg tablet Take 5 mg by mouth daily at bedtime. folic acid 1 mg tablet Take by mouth. melatonin 3 mg tablet Take 3 mg by mouth. omeprazole (PRILOSEC) 20 mg capsule TAKE 1 CAPSULE BY MOUTH EVERY DAY FOR GERD thiamine (VITAMIN B1) 100 mg tablet Take by mouth. PHYSICAL EXAM: VS: BP 155/70 Pulse (!) 51 Temp 37.2 ?C (98.9 ?F) (Temporal) Resp 24 SpO2 100% KPS: 70 General Appearance: Alert and oriented. No acute distress. ASSESSMENT AND PLAN: 1. Enlarging left lower lung nodule suspicious for malignancy. 2. 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 3. Clinical stage IB, T2aN0, non-small cell lung cancer of the left upper lobe treated with SBRT at the [facility] in 03/2020. I discussed management options of the enlarging left lower lung nodule. Previous CT guided biopsy showed Atypical epithelial cells suspicious for malignancy . PET scan showed only slight uptake there. [address] scan showed increase in size. We can repeat the CT guided biopsy. However, he states that previous biopsy was painful and he doesn't want to do repeat biopsy. He wishes to proceed with SBRT with understanding that only biopsy can confirm malignancy. As a series of CT chests showed continuous enlargement of the left lung nodule and as previous biopsy showed suspicious findings, clinical suspicion of malignancy is very high and I believe it's reasonable to proceed with SBRT as he declined further work-ups. I discussed bronchoscopy and EBUS but he declined it as well. I explained the rationale, benefits, alternative management options and potential complications of radiation treatment to the patient and he understands and agrees to proceed. It was explained and understood that other personnel such as radiation therapists, route delivery driver, and physicists will participate in planning and delivery of radiation treatment. Permanent tattoo dejesus will be placed to aid with positioning for daily treatment and the patient consented. Signed by: Nghia Harvey MD cc: Inocente Nichols [address] [place], [place] [address] (more content not included)... [facility] 10-01-2022 Note HNO ID: [id number] Author: RT Piper(R) Service: ? Author Type: Sausage Maker Type: Progress Notes Filed: 10/01/2022 2:59 PM Note Text: Radiology Service Progress Note PATIENT NAME: Kelly Damian DATE OF SERVICE: October 01, 2022 TIME: 2:59 PM PATIENT IDENTITY VERIFICATION COMPLETED USING TWO (2) IDENTIFIERS: Name and Date of confirmed by patient verbally. FALL SCREENING: Has the patient had 2 falls in the last year or 1 fall with injury or currently using an Ambulatory Assistive Device (Walker, Cane, Wheelchair, Crutches, etc.)? No PATIENT GENDER DATA: Male PATIENT RELEVANT IMPLANT DATA REVIEWED: Yes RADIOLOGY DEPARTMENT: CT; Exam(s) Completed: Chest PERIPHERAL IV DATA: Not applicable SIGNED BY: RT Brennen(R) October 01, 2022 2:59 PM [facility] 08-22-2022 Miscellaneous Notes order called back to Liliam. Clean with peroxide as needed. Triple antibiotic ointment with non stick dressing. Change every 2 days or when soaked. Liliam Nurse from [facility] calls to report that patient had tripped and fell on walker on Thursday. Patient pressed medical alert button, squad came and helped patient up and had checked him out. No injures noted except for large skin tear on right wrist. Patient currently has gauze with Kerlix wrapped around wrist. No drainage noted. Liliam asking if patient should be putting anything else on wrist. They check on him weekly but not half-way. Patient does have aide and a sister who is a nurse who can help with changing dressing. Please review and advise, Елена Davis RN documented in this encounter [facility] 08-11-2022 Note HNO ID: [id number] Author: Inocente Nichols MD Service: ? Author Type: Physician Type: Progress Notes Filed: 08/11/2022 3:42 PM Note Text: This note was created using [employer]idcaster[employer]. Subjective Kelly Damian is a 72 year old male. His leg swelling was better overall, especially on the left. We increased furosemide and this was helping. His CXR showed right pleural effusion, but this was minimal on ultrasound when he was referred for thoracentesis. COPD, bipolar, alcohol dependence were stable. He was taking his medications, and limited himself reportedly to 2 alcoholic drinks per day. Review of Systems Constitutional: Negative. Respiratory: Negative for cough, chest tightness and shortness of breath. Cardiovascular: Positive for leg swelling. Negative for chest pain and palpitations. Genitourinary: Negative for difficulty urinating. Musculoskeletal: Positive for gait problem. Neurological: Positive for weakness. ACTIVE PROBLEM LIST Bipolar Disorder (Hcc) Copd (Chronic Obstructive Pulmonary Disease) (Hcc) Benign Prostatic Hyperplasia With Urinary Frequency Chronic Hip Pain, Bilateral Chronic Bilateral Low Back Pain Tobacco Use Disorder Lymphedema Coronary Artery Disease Involving [employer] Coronary Artery Urinary Incontinence Gastroesophageal Reflux Disease Without Esophagitis Adenocarcinoma of Left Lung ([facility]) History of Colon Polyps Spinal Stenosis, Lumbar Region, With Neurogenic Claudication S/P Right Hip Fracture Physical Debility Obesity, Class II, Bmi 35-39.9 Bradycardia Adenocarcinoma of Right Lung ([facility]) Pulmonary Hypertension Due to Copd ([facility]) Obesity, Class I, Bmi 30-34.9 Hyponatremia Uncomplicated Alcohol Dependence ([facility]) Primary Hypertension Social History Tobacco Use Smoking status: Every Day Packs/day: 2.00 Years: 30.00 Pack years: 60.00 Types: Cigarettes Smokeless tobacco: Never Tobacco comments: 3-4 cigarettes/day 07/29/21 Vaping Use Vaping Use: Never used Substance Use Topics Alcohol use: Yes Alcohol/week: 14.0 standard drinks Types: 14 Cans of beer per week Comment: 2 drinks per day Drug use: No Current Outpatient Medications Medication Sig sodium chloride 1 gram tab Take 1 tablet by mouth three times daily. furosemide (LASIX) 40 mg tablet Take 1 tablet by mouth twice daily. losartan (COZAAR) 50 mg tablet Take 1 tablet by mouth once daily. tamsulosin (FLOMAX) 0.4 mg Take 2 capsules by mouth daily at bedtime. VA medication. OLANZapine (ZYPREXA) 15 mg tablet Take 1 tablet by mouth daily at bedtime. VA medication. divalproex ER (DEPAKOTE ER) 500 mg 24 hr tablet Take 1 tablet by mouth daily at bedtime. VA medication. guaiFENesin (HUMIBID E) 400 mg tab Take 1 tablet by mouth three times daily. VA medication. bisacodyl (DULCOLAX) 10 mg supp 10 mg by RECTAL route once daily as needed for constipation. mineral oil (FLEET MINERAL OIL ENEMA) enema 133 mL by RECTAL route one time only. As needed magnesium hydroxide (MOM) 400 mg/5 mL suspension Take by mouth once daily as needed. multivitamin tablet Take 1 tablet by mouth once daily. albuterol HFA (PROVENTIL HFA, VENTOLIN HFA) 90 mcg/actuation inhaler Inhale 1-2 Puffs as instructed four times daily as needed. PULMICORT FLEXHALER 180 mcg/actuation aepb INHALE 2 PUFFS BY MOUTH TWICE DAILY FOR SHORTNESS OF BREATH - RINSE MOUTH AFTER USE cholecalciferol (VITAMIN D3) 1,000 unit tab tablet Take 2,000 Units by mouth once daily. finasteride (PROSCAR) 5 mg tablet Take 5 mg by mouth daily at bedtime. folic acid 1 mg tablet Take by mouth. melatonin 3 mg tablet Take 3 mg by mouth. omeprazole (PRILOSEC) 20 mg capsule TAKE 1 CAPSULE BY MOUTH EVERY DAY FOR GERD thiamine (VITAMIN B1) 100 mg tablet Take by mouth. No current facility-administered medications for this visit. Objective BP 132/62 (BP Site: Left Arm, BP Position: Sitting, BP Cuff Size: Large Adult) Pulse 64 Temp 36.4 ?C (97.5 ?F) (Temporal) Resp 20 Wt 112.9 kg (249 lb) BMI 34.73 kg/m? Physical Exam Constitutional: General: He is not in acute distress. Cardiovascular: Rate and Rhythm: Regular rhythm. Bradycardia present. Heart sounds: No murmur heard. No gallop. Pulmonary: Effort: No respiratory distress. Breath sounds: Wheezing and rhonchi present. No rales. Abdominal: Palpations: Abdomen is soft. Tenderness: There is no abdominal tenderness. Musculoskeletal: Right lower le+ Pitting Edema present. Left lower le+ Pitting Edema present. Skin: Findings: Erythema present. Comments: Less erythema. Neurological: Mental Status: He is alert. Assessment and Plan 1. Lymphedema - ICD9: 457.1, ICD10: I89.0 (primary diagnosis) Improved. Continue same. 2. Need for vaccination - ICD9: V05.9, ICD10: Z23 - PFIZER-BIONTECH COVID-19 BIVALENT BOOSTER VACCINE, AGE 12+ YR 3. Centrilobular emphysema (HCC) - ICD9: 492.8, ICD10: J43.2 Stable. 4. Pulmonary hypertens (more content not included)... [facility] 08-11-2022 Instructions Inocente Nichols MD - 08/11/2022 2:33 PM EST BLOOD CHEMISTRY TODAY. documented in this encounter [facility] 08-11-2022 History of Present illness Narrative This note was created using [employer]. Subjective Kelly Damian is a 72 year old male. His leg swelling was better overall, especially on the left. We increased furosemide and this was helping. His CXR showed right pleural effusion, but this was minimal on ultrasound when he was referred for thoracentesis. COPD, bipolar, alcohol dependence were stable. He was taking his medications, and limited himself reportedly to 2 alcoholic drinks per day. Review of Systems Constitutional: Negative. Respiratory: Negative for cough, chest tightness and shortness of breath. Cardiovascular: Positive for leg swelling. Negative for chest pain and palpitations. Genitourinary: Negative for difficulty urinating. Musculoskeletal: Positive for gait problem. Neurological: Positive for weakness. ACTIVE PROBLEM LIST Bipolar Disorder (Hcc) Copd (Chronic Obstructive Pulmonary Disease) (Hcc) Benign Prostatic Hyperplasia With Urinary Frequency Chronic Hip Pain, Bilateral Chronic Bilateral Low Back Pain Tobacco Use Disorder Lymphedema Coronary Artery Disease Involving [employer] Coronary Artery Urinary Incontinence Gastroesophageal Reflux Disease Without Esophagitis Adenocarcinoma of Left Lung (Hcc) History of Colon Polyps Spinal Stenosis, Lumbar Region, With Neurogenic Claudication S/P Right Hip Fracture Physical Debility Obesity, Class II, Bmi 35-39.9 Bradycardia Adenocarcinoma of Right Lung (Hcc) Pulmonary Hypertension Due to Copd ([facility]) Obesity, Class I, Bmi 30-34.9 Hyponatremia Uncomplicated Alcohol Dependence (Hcc) Primary Hypertension Social History Tobacco Use Smoking status: Every Day Packs/day: 2.00 Years: 30.00 Pack years: 60.00 Types: Cigarettes Smokeless tobacco: Never Tobacco comments: 3-4 cigarettes/day 07/29/21 Vaping Use Vaping Use: Never used Substance Use Topics Alcohol use: Yes Alcohol/week: 14.0 standard drinks Types: 14 Cans of beer per week Comment: 2 drinks per day Drug use: No Current Outpatient Medications Medication Sig sodium chloride 1 gram tab Take 1 tablet by mouth three times daily. furosemide (LASIX) 40 mg tablet Take 1 tablet by mouth twice daily. losartan (COZAAR) 50 mg tablet Take 1 tablet by mouth once daily. tamsulosin (FLOMAX) 0.4 mg Take 2 capsules by mouth daily at bedtime. VA medication. OLANZapine (ZYPREXA) 15 mg tablet Take 1 tablet by mouth daily at bedtime. VA medication. divalproex ER (DEPAKOTE ER) 500 mg 24 hr tablet Take 1 tablet by mouth daily at bedtime. VA medication. guaiFENesin (HUMIBID E) 400 mg tab Take 1 tablet by mouth three times daily. VA medication. bisacodyl (DULCOLAX) 10 mg supp 10 mg by RECTAL route once daily as needed for constipation. mineral oil (FLEET MINERAL OIL ENEMA) enema 133 mL by RECTAL route one time only. As needed magnesium hydroxide (MOM) 400 mg/5 mL suspension Take by mouth once daily as needed. multivitamin tablet Take 1 tablet by mouth once daily. albuterol HFA (PROVENTIL HFA, VENTOLIN HFA) 90 mcg/actuation inhaler Inhale 1-2 Puffs as instructed four times daily as needed. PULMICORT FLEXHALER 180 mcg/actuation aepb INHALE 2 PUFFS BY MOUTH TWICE DAILY FOR SHORTNESS OF BREATH - RINSE MOUTH AFTER USE cholecalciferol (VITAMIN D3) 1,000 unit tab tablet Take 2,000 Units by mouth once daily. finasteride (PROSCAR) 5 mg tablet Take 5 mg by mouth daily at bedtime. folic acid 1 mg tablet Take by mouth. melatonin 3 mg tablet Take 3 mg by mouth. omeprazole (PRILOSEC) 20 mg capsule TAKE 1 CAPSULE BY MOUTH EVERY DAY FOR GERD thiamine (VITAMIN B1) 100 mg tablet Take by mouth. No current facility-administered medications for this visit. Objective BP 132/62 (BP Site: Left Arm, BP Position: Sitting, BP Cuff Size: Large Adult) Pulse 64 Temp 36.4 C (97.5 F) (Temporal) Resp 20 Wt 112.9 kg (249 lb) BMI 34.73 kg/m Physical Exam Constitutional: General: He is not in acute distress. Cardiovascular: Rate and Rhythm: Regular rhythm. Bradycardia present. Heart sounds: No murmur heard. No gallop. Pulmonary: Effort: No respiratory distress. Breath sounds: Wheezing and rhonchi present. No rales. Abdominal: Palpations: Abdomen is soft. Tenderness: There is no abdominal tenderness. Musculoskeletal: Right lower le+ Pitting Edema present. Left lower le+ Pitting Edema present. Skin: Findings: Erythema present. Comments: Less erythema. Neurological: Mental Status: He is alert. Assessment and Plan 1. Lymphedema - ICD9: 457.1, ICD10: I89.0 (primary diagnosis) Improved. Continue same. 2. Need for vaccination - ICD9: V05.9, ICD10: Z23 - [employer] COVID-19 BIVALENT BOOSTER VACCINE, AGE 12+ YR 3. Centrilobular emphysema (HCC) - ICD9: 492.8, ICD10: J43.2 Stable. 4. Pulmonary hypertension due to COPD (HCC) - ICD9: 416.8, 496, ICD10: I27.23, J44.9 Stable. 5. Uncomplicated alcohol dependence (HCC) - ICD9: 303.90, ICD10: F10.20 Stable. 6. Bipolar affective disorder, remission status unspecified (HCC) - ICD9: 296.80, ICD10: F31.9 Stable. Inocente Nichols MD documented in this encounter [facility] 08-05-2022 Miscellaneous Notes Patient has been identified by name and date of : Yes, Patient phones for refill(s): Requested Prescriptions Pending Prescriptions Disp Refills sodium chloride 1 gram tab 90 tablet 2 Sig: Take 1 tablet by mouth three times daily. Date of last office visit in primary care: 07/16/2022 6 month follow-up: 08/11/2022 Last 2 Encounter Wt Readings: Date: Wt: 07/16/2022 114.8 kg (253 lb) 05/30/2022 111.6 kg (246 lb) Previous labs/tests for medication: Not applicable Please advise. Thank you. Ceci Santamaria LPN Patient has been identified by name and date of : Yes Requested Prescriptions Pending Prescriptions Disp Refills sodium chloride 1 gram tab 90 tablet 2 Sig: Take 1 tablet by mouth three times daily. RX INSTRUCTIONS: Patient aware RX will be sent to pharmacy. No need to notify patient. Kathy Ordaz documented in this encounter [facility] 08-01-2022 Miscellaneous Notes Called the pharmacy and this was not completed. Noted result: effusion is small on US. Cancel thoracentesis. Pt completed pre thoracentesis . See results. View External Imaging - u/s evaluation for thoracentesis [ID [id number]] documented in this encounter [facility] 07-31-2022 Miscellaneous Notes Liliam from [facility] called and is notified of providers message and instructions. She voices understanding. Berenice Hoyos RN Increase furosemide to one(1) tablet two(2) times daily. Requested Prescriptions Signed Prescriptions Disp Refills furosemide (LASIX) 40 mg tablet 60 tablet 3 Sig: Take 1 tablet by mouth twice daily. Authorizing Provider: INOCENTE NICHOLS MD Liliam from [facility] reports pt's legs are still just a red as when pt was seen in the office 07/16/22. +3 edema. Toes are purple & red. Pt denies pain per Liliam. Pt is having a thoracentesis today [facility] Zaynab hose. Please advise. Radha Llamas LPN documented in this encounter [facility] 07-23-2022 Miscellaneous Notes Order completed and faxed to [facility] along with office notes from last appt,chest x ray,labs from [facility],and lab order for cytology on fluid. [facility] is to call pt to arrange. Patient notified of below results/recommendation. He is asking for the referral to [facility] radiology for thoracentesis. Let Patient know our office will send info to [facility], they will contact him to schedule. Ceic Santamaria LPN ----- Message from Inocente Nichols MD sent at 07/20/2022 1:08 PM EST ----- Persistent right lung base infiltrate and fluid, rule out recurrent cancer. Consider referral to [facility] radiology for thoracentesis. I will also share this with Dr. Harvey, radiation oncology. documented in this encounter [facility] 07-16-2022 Note HNO ID: [id number] Author: RT Zeferino(R) Service: ? Author Type: Sausage Maker Type: Progress Notes Filed: 07/16/2022 5:04 PM Note Text: Radiology Service Progress Note PATIENT NAME: Kelly Damian DATE OF SERVICE: July 16, 2022 TIME: 4:47 PM PATIENT IDENTITY VERIFICATION COMPLETED USING TWO (2) IDENTIFIERS: Name and Date of confirmed by patient verbally. FALL SCREENING: Has the patient had 2 falls in the last year or 1 fall with injury or currently using an Ambulatory Assistive Device (Walker, Cane, Wheelchair, Crutches, etc.)? Yes, Patient High Risk for Falls What interventions were put in place to prevent falls during this visit? Offered Assistance with Transfers/Clothing, Instructed Patient to Remain Seated (Not on Exam Table) Until Exam, and Increased Observations by Caregivers PATIENT GENDER DATA: Male PATIENT RELEVANT IMPLANT DATA REVIEWED: Yes RADIOLOGY DEPARTMENT: General X-ray: Exam(s) Completed: Chest X-Ray PERIPHERAL IV DATA: Not applicable SIGNED BY: RT Zeferino(R) July 16, 2022 4:47 PM [facility] 07-16-2022 Note HNO ID: [id number] Author: Inocente Nichols MD Service: ? Author Type: Physician Type: Progress Notes Filed: 07/17/2022 12:29 AM Note Text: This note was created using Vidcasterriter. Subjective Kelly Damian is a 72 year old male was here for leg swelling and redness. He was apparently referred by home health. He felt his leg swelling and redness were not much different from baseline. He was accompanied by his niece. He had no other symptoms. He was seen last month for preoperative evaluation. His cataract surgery has been postponed. His chest X-ray needed repeated. Review of Systems Constitutional: Positive for unexpected weight change. Negative for activity change, chills and fever. HENT: Negative. Respiratory: Negative for cough, chest tightness, shortness of breath and wheezing. Cardiovascular: Negative for chest pain and palpitations. Gastrointestinal: Negative. Genitourinary: Positive for frequency. Negative for difficulty urinating and dysuria. Musculoskeletal: Positive for gait problem. Negative for joint swelling. Skin: Negative for wound. ACTIVE PROBLEM LIST Bipolar Disorder (Hcc) Copd (Chronic Obstructive Pulmonary Disease) ([facility]) Benign Prostatic Hyperplasia With Urinary Frequency Chronic Hip Pain, Bilateral Chronic Bilateral Low Back Pain Tobacco Use Disorder Lymphedema Coronary Artery Disease Involving [employer] Coronary Artery Urinary Incontinence Gastroesophageal Reflux Disease Without Esophagitis Adenocarcinoma of Left Lung (Hcc) History of Colon Polyps Spinal Stenosis, Lumbar Region, With Neurogenic Claudication S/P Right Hip Fracture Physical Debility Obesity, Class II, Bmi 35-39.9 Bradycardia Adenocarcinoma of Right Lung (Hcc) Pulmonary Hypertension Due to Copd ([facility]) Obesity, Class I, Bmi 30-34.9 Hyponatremia Uncomplicated Alcohol Dependence ([facility]) Primary Hypertension Current Outpatient Medications Medication Sig sodium chloride 1 gram tab Take 1 tablet by mouth three times daily. losartan (COZAAR) 50 mg tablet Take 1 tablet by mouth once daily. furosemide (LASIX) 40 mg tablet Take 1 tablet by mouth once daily. tamsulosin (FLOMAX) 0.4 mg Take 2 capsules by mouth daily at bedtime. [facility] medication. OLANZapine (ZYPREXA) 15 mg tablet Take 1 tablet by mouth daily at bedtime. [facility] medication. divalproex ER (DEPAKOTE ER) 500 mg 24 hr tablet Take 1 tablet by mouth daily at bedtime. [facility] medication. guaiFENesin (HUMIBID E) 400 mg tab Take 1 tablet by mouth three times daily. [facility] medication. bisacodyl (DULCOLAX) 10 mg supp 10 mg by RECTAL route once daily as needed for constipation. mineral oil (FLEET MINERAL OIL ENEMA) enema 133 mL by RECTAL route one time only. As needed magnesium hydroxide (MOM) 400 mg/5 mL suspension Take by mouth once daily as needed. multivitamin tablet Take 1 tablet by mouth once daily. albuterol HFA (PROVENTIL HFA, VENTOLIN HFA) 90 mcg/actuation inhaler Inhale 1-2 Puffs as instructed four times daily as needed. PULMICORT FLEXHALER 180 mcg/actuation aepb INHALE 2 PUFFS BY MOUTH TWICE DAILY FOR SHORTNESS OF BREATH - RINSE MOUTH AFTER USE cholecalciferol (VITAMIN D3) 1,000 unit tab tablet Take 2,000 Units by mouth once daily. finasteride (PROSCAR) 5 mg tablet Take 5 mg by mouth daily at bedtime. folic acid 1 mg tablet Take by mouth. melatonin 3 mg tablet Take 3 mg by mouth. omeprazole (PRILOSEC) 20 mg capsule TAKE 1 CAPSULE BY MOUTH EVERY DAY FOR GERD thiamine (VITAMIN B1) 100 mg tablet Take by mouth. No current facility-administered medications for this visit. Objective BP 129/53 (BP Site: Left Arm, BP Position: Sitting, BP Cuff Size: Large Adult) Pulse (!) 53 Temp 36.6 ?C (97.9 ?F) (Temporal) Resp 24 Wt 114.8 kg (253 lb) SpO2 97% BMI 35.29 kg/m? Physical Exam Constitutional: General: He is not in acute distress. Appearance: He is obese. He is not ill-appearing. Cardiovascular: Rate and Rhythm: Regular rhythm. Bradycardia present. Heart sounds: No murmur heard. No gallop. Pulmonary: Effort: No respiratory distress. Breath sounds: Examination of the right-lower field reveals decreased breath sounds and rales. Examination of the left-lower field reveals decreased breath sounds. Decreased breath sounds and rales present. No wheezing or rhonchi. Musculoskeletal: Right lower le+ Edema present. Left lower le+ Edema present. Skin: Findings: Erythema present. Neurological: General: No focal deficit present. Mental Status: He is alert. Comments: Wheelchair bound. Assessment and Plan 1. Lymphedema - ICD9: 457.1, ICD10: I89.0 (primary diagnosis) Worse. Stasis erythema versus cellulitis. - FUROSEMIDE 40 MG TABLET. Continue. - METOLAZONE 10 MG TABLET. Daily x 7 days. - DOXYCYCLINE HYCLATE 100 MG TABLET - BASIC METABOLIC PNL 2. Primary hypertension - ICD9: 401.9, ICD10: I10 - good control - Continue current medication(s) - Recommended regul (more content not included)... [facility] 07-16-2022 Instructions Inocente Nichols MD - 07/16/2022 4:04 PM EST CHEST XRAY TODAY. PRESCRIPTIONS TO [facility] BLOOD WORK ON THE DAY OF THE NEXT APPOINTMENT documented in this encounter [facility] 07-16-2022 History of Present illness Narrative This note was created using SCYFIX. Subjective Kelly Damian is a 72 year old male was here for leg swelling and redness. He was apparently referred by home health. He felt his leg swelling and redness were not much different from baseline. He was accompanied by his niece. He had no other symptoms. He was seen last month for preoperative evaluation. His cataract surgery has been postponed. His chest X-ray needed repeated. Review of Systems Constitutional: Positive for unexpected weight change. Negative for activity change, chills and fever. HENT: Negative. Respiratory: Negative for cough, chest tightness, shortness of breath and wheezing. Cardiovascular: Negative for chest pain and palpitations. Gastrointestinal: Negative. Genitourinary: Positive for frequency. Negative for difficulty urinating and dysuria. Musculoskeletal: Positive for gait problem. Negative for joint swelling. Skin: Negative for wound. ACTIVE PROBLEM LIST Bipolar Disorder (Hcc) Copd (Chronic Obstructive Pulmonary Disease) (Hcc) Benign Prostatic Hyperplasia With Urinary Frequency Chronic Hip Pain, Bilateral Chronic Bilateral Low Back Pain Tobacco Use Disorder Lymphedema Coronary Artery Disease Involving [employer] Coronary Artery Urinary Incontinence Gastroesophageal Reflux Disease Without Esophagitis Adenocarcinoma of Left Lung (Hcc) History of Colon Polyps Spinal Stenosis, Lumbar Region, With Neurogenic Claudication S/P Right Hip Fracture Physical Debility Obesity, Class II, Bmi 35-39.9 Bradycardia Adenocarcinoma of Right Lung (Hcc) Pulmonary Hypertension Due to Copd (Hcc) Obesity, Class I, Bmi 30-34.9 Hyponatremia Uncomplicated Alcohol Dependence (Hcc) Primary Hypertension Current Outpatient Medications Medication Sig sodium chloride 1 gram tab Take 1 tablet by mouth three times daily. losartan (COZAAR) 50 mg tablet Take 1 tablet by mouth once daily. furosemide (LASIX) 40 mg tablet Take 1 tablet by mouth once daily. tamsulosin (FLOMAX) 0.4 mg Take 2 capsules by mouth daily at bedtime. [facility] medication. OLANZapine (ZYPREXA) 15 mg tablet Take 1 tablet by mouth daily at bedtime. [facility] medication. divalproex ER (DEPAKOTE ER) 500 mg 24 hr tablet Take 1 tablet by mouth daily at bedtime. [facility] medication. guaiFENesin (HUMIBID E) 400 mg tab Take 1 tablet by mouth three times daily. [facility] medication. bisacodyl (DULCOLAX) 10 mg supp 10 mg by RECTAL route once daily as needed for constipation. mineral oil (FLEET MINERAL OIL ENEMA) enema 133 mL by RECTAL route one time only. As needed magnesium hydroxide (MOM) 400 mg/5 mL suspension Take by mouth once daily as needed. multivitamin tablet Take 1 tablet by mouth once daily. albuterol HFA (PROVENTIL HFA, VENTOLIN HFA) 90 mcg/actuation inhaler Inhale 1-2 Puffs as instructed four times daily as needed. PULMICORT FLEXHALER 180 mcg/actuation aepb INHALE 2 PUFFS BY MOUTH TWICE DAILY FOR SHORTNESS OF BREATH - RINSE MOUTH AFTER USE cholecalciferol (VITAMIN D3) 1,000 unit tab tablet Take 2,000 Units by mouth once daily. finasteride (PROSCAR) 5 mg tablet Take 5 mg by mouth daily at bedtime. folic acid 1 mg tablet Take by mouth. melatonin 3 mg tablet Take 3 mg by mouth. omeprazole (PRILOSEC) 20 mg capsule TAKE 1 CAPSULE BY MOUTH EVERY DAY FOR GERD thiamine (VITAMIN B1) 100 mg tablet Take by mouth. No current facility-administered medications for this visit. Objective BP 129/53 (BP Site: Left Arm, BP Position: Sitting, BP Cuff Size: Large Adult) Pulse (!) 53 Temp 36.6 C (97.9 F) (Temporal) Resp 24 Wt 114.8 kg (253 lb) SpO2 97% BMI 35.29 kg/m Physical Exam Constitutional: General: He is not in acute distress. Appearance: He is obese. He is not ill-appearing. Cardiovascular: Rate and Rhythm: Regular rhythm. Bradycardia present. Heart sounds: No murmur heard. No gallop. Pulmonary: Effort: No respiratory distress. Breath sounds: Examination of the right-lower field reveals decreased breath sounds and rales. Examination of the left-lower field reveals decreased breath sounds. Decreased breath sounds and rales present. No wheezing or rhonchi. Musculoskeletal: Right lower le+ Edema present. Left lower le+ Edema present. Skin: Findings: Erythema present. Neurological: General: No focal deficit present. Mental Status: He is alert. Comments: Wheelchair bound. Assessment and Plan 1. Lymphedema - ICD9: 457.1, ICD10: I89.0 (primary diagnosis) Worse. Stasis erythema versus cellulitis. - FUROSEMIDE 40 MG TABLET. Continue. - METOLAZONE 10 MG TABLET. Daily x 7 days. - DOXYCYCLINE HYCLATE 100 MG TABLET - BASIC METABOLIC PNL 2. Primary hypertension - ICD9: 401.9, ICD10: I10 - good control - Continue current medication(s) - Recommended regular aerobic exercise. - Recommend home blood pressure monitoring, to bring results in on next visit - Goal of BP <130/80 - LOSARTAN 50 MG TABLET 3. Abnormal chest x-ray - ICD9: 793.2, ICD10: R93.89 Recheck today. 4. Need for influenza vaccination - ICD9: V04.81, ICD10: Z23 - INFLUENZA SEASONAL QUADRIVALENT HIGH DOSE AGE 65+ Inocente Nichols MD documented in this encounter [facility] 07-11-2022 Miscellaneous Notes Spoke with pt and scheduled as directed below. Spoke with patient to schedule CT Chest and follow up phone call w/ Dr. Harvey, but patient was unable to schedule at the moment and requested a call back on 07/08 to schedule. Елена Choe I called him to discuss the results of the PET scan on 06/18/22. It's negative examination and there was no definitive PET evidence of recurrent/viable neoplasm. I told him that there PET scan is not 100% sensitive, though, to detect cancer and I will repeat CT chest in 3 months to reassess. He understood and agreed. documented in this encounter [facility] 07-02-2022 Miscellaneous Notes I faxed a request to the film library to make images viewable. I was unable to reach them by phone. Report given to Dr Harvey, request faxed to [facility] to have images pushed thru to [facility]. I am attempting to get these results. Unable to access [employer]. Left message at medical records at [facility] to send these results. Patient calling for Pet Scan results from 06/18. Please advise. documented in this encounter [facility] 06-09-2022 Miscellaneous Notes Pt called and is notified of providers results and instructions. Pt voices understanding. Berenice Hoyos RN ASSESSMENT/PLAN: 1. Abnormal chest x-ray - ICD9: 793.2, ICD10: R93.89 Repeat chest xray in 6 weeks. - DOXYCYCLINE HYCLATE 100 MG TABLET - XR CHEST 2V FRONTAL/LAT Inocente Nichols MD Images from the original note were not included. 05/30/22 chest xray result noted. No script sent for doxycycline noted. Please advise. Please call pt with update of results and treatment once clarified. Thank you. Gaby Canas RN COPIED from 06/08/22: Inocente Nichols MD P Wstr Im Nichols Pool Pneumonia right vs. CHF. Start doxycycline 100 mg BID x 7 days.. Follow up as scheduled. documented in this encounter [facility] 06-02-2022 Miscellaneous Notes Faxed Office Note and CT Report. No Care Path or Pathology to send. Елена Choe [facility]. They need Dr. Harvey's last OV note, the Care Path Report, If he had a biopsy the results and his CT scan results. Please fax this to them [facility] [phone] ATTN: Maddie Thank you! Allyson Luna documented in this encounter [facility] 05-30-2022 Instructions Inocente Nichols MD - 05/30/2022 2:32 PM EST CATARACT SURGERY NOT RECOMMENDED AT THIS TIME. documented in this encounter [facility] 05-30-2022 History of Present illness Narrative This note was created using NoteWriter. Subjective Consultation requested by Dr. Merritt for an opinion regarding surgical risk. My final recommendations will be communicated back to the requesting physician by way of shared Medical record. Patient is scheduled for bilateral cataract surgeries under moderate IV sedation 06/17 & 06/30. Kelly Damian is a 72 year old male has history significant for coronary artery disease, lymphedema, chronic obstructive pulmonary disease. He has been stable the past few months. Review of Systems Constitutional: Positive for fatigue and unexpected weight change. Negative for chills and fever. Respiratory: Positive for cough and shortness of breath. Cardiovascular: Positive for leg swelling. Negative for chest pain and palpitations. Gastrointestinal: Negative. Genitourinary: Negative. Musculoskeletal: Positive for gait problem. Skin: Positive for color change. Neurological: Positive for weakness. ACTIVE PROBLEM LIST Bipolar Disorder ([facility]) Copd (Chronic Obstructive Pulmonary Disease) ([facility]) Benign Prostatic Hyperplasia With Urinary Frequency Chronic Hip Pain, Bilateral Chronic Bilateral Low Back Pain Tobacco Use Disorder Lymphedema Coronary Artery Disease Involving [employer] Coronary Artery Urinary Incontinence Gastroesophageal Reflux Disease Without Esophagitis Adenocarcinoma of Left Lung ([facility]) History of Colon Polyps Spinal Stenosis, Lumbar Region, With Neurogenic Claudication S/P Right Hip Fracture Physical Debility Obesity, Class II, Bmi 35-39.9 Bradycardia Adenocarcinoma of Right Lung ([facility]) Pulmonary Hypertension Due to Copd ([facility]) Obesity, Class I, Bmi 30-34.9 Hyponatremia Uncomplicated Alcohol Dependence ([facility]) Primary Hypertension Current Outpatient Medications Medication Sig sodium chloride 1 gram tab Take 1 tablet by mouth three times daily. losartan (COZAAR) 50 mg tablet Take 1 tablet by mouth once daily. furosemide (LASIX) 40 mg tablet Take 1 tablet by mouth once daily. tamsulosin (FLOMAX) 0.4 mg Take 2 capsules by mouth daily at bedtime. [facility] medication. OLANZapine (ZYPREXA) 15 mg tablet Take 1 tablet by mouth daily at bedtime. [facility] medication. divalproex ER (DEPAKOTE ER) 500 mg 24 hr tablet Take 1 tablet by mouth daily at bedtime. [facility] medication. guaiFENesin (HUMIBID E) 400 mg tab Take 1 tablet by mouth three times daily. [facility] medication. baclofen (LIORESAL) 10 mg tablet TAKE 1 PILL AT BEDTIME NEEDED FOR PAINFUL MUSCLE SPASMS, 90 day supply bisacodyl (DULCOLAX) 10 mg supp 10 mg by RECTAL route once daily as needed for constipation. mineral oil (FLEET MINERAL OIL ENEMA) enema 133 mL by RECTAL route one time only. As needed magnesium hydroxide (MOM) 400 mg/5 mL suspension Take by mouth once daily as needed. multivitamin tablet Take 1 tablet by mouth once daily. albuterol HFA (PROVENTIL HFA, VENTOLIN HFA) 90 mcg/actuation inhaler Inhale 1-2 Puffs as instructed four times daily as needed. PULMICORT FLEXHALER 180 mcg/actuation aepb INHALE 2 PUFFS BY MOUTH TWICE DAILY FOR SHORTNESS OF BREATH - RINSE MOUTH AFTER USE cholecalciferol (VITAMIN D3) 1,000 unit tab tablet Take 2,000 Units by mouth once daily. finasteride (PROSCAR) 5 mg tablet Take 5 mg by mouth daily at bedtime. folic acid 1 mg tablet Take by mouth. melatonin 3 mg tablet Take 3 mg by mouth. omeprazole (PRILOSEC) 20 mg capsule TAKE 1 CAPSULE BY MOUTH EVERY DAY FOR GERD thiamine (VITAMIN B1) 100 mg tablet Take by mouth. No current facility-administered medications for this visit. Objective BP (P) 150/57 (BP Site: Left Arm, BP Position: Sitting, BP Cuff Size: Large Adult) Pulse (!) (P) 55 Resp (P) 16 Physical Exam Constitutional: General: He is not in acute distress. Appearance: He is not diaphoretic. HENT: Head: Normocephalic. Eyes: Conjunctiva/sclera: Conjunctivae normal. Cardiovascular: Rate and Rhythm: Bradycardia present. Rhythm irregular. Heart sounds: S1 normal and S2 normal. No murmur heard. Pulmonary: Effort: Respiratory distress present. Breath sounds: Wheezing, rhonchi and rales present. Abdominal: Palpations: Abdomen is soft. Tenderness: There is no abdominal tenderness. Musculoskeletal: Right lower le+ Pitting Edema present. Left lower le+ Pitting Edema present. Neurological: General: No focal deficit present. Mental Status: He is alert. Comments: Wheelchair bound. EKG RESULTS: Undetermined rhythm, bradycardia rate 44, LAD, incomplete RBBB, septal infarct pattern. Assessment and Plan 1. Preoperative examination - ICD9: V72.84, ICD10: Z01.818 (primary diagnosis) Not cleared. - CBC - BASIC METABOLIC PNL - NT PRO BNP - ECG COMPLETE - CONSULT TO CARDIOLOGY 2. Bradycardia - ICD9: 427.89, ICD10: R00.1 Rule out atrial fibrillation. - CONSULT TO CARDIOLOGY 3. 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 - ICD9: 414.01, ICD10: I25.10 - CONSULT TO CARDIOLOGY 4. Primary hypertension - ICD9: 401.9, ICD10: I10 - poor control 5. Centrilobular emphysema (HCC) - ICD9: 492.8, ICD10: J43.2 Rule out CHF. - XR CHEST 2V FRONTAL/LAT Inocente Nichols MD documented in this encounter [facility] 05-20-2022 Miscellaneous Notes Last [address] Harvey (3 phone and 1 office note) and last Office note from Tracy Nichols faxed as requested. Елена Choe [facility] called again requesting history and physical of the patient within the last 30 days. Please fax office notes to Please fax to [phone]. Faxed Med List and Lab Orders to [facility] as directed. Spoke with patient and he stated he would do labs tomorrow (05/21). Елена Choe Please fax med list, H & P faxed to [facility] for procedure on 05/22 please fax [phone] PSR's would you be able to fax lab orders to [facility] and have pt go get them done today or early tomorrow for procedure 05/22? [facility] is needing the following prior to lung biopsy on 05/22. Current H&P Med list Labs: PT, PT INR, Platelets. If patient hasn't had these done recently please fax a lab order to be drawn at [facility] Please fax to [phone] documented in this encounter [facility] 05-10-2022 History of Present illness Narrative [facility]ISIT Kelly Damian's identity was confirmed. The limitations of telemedicine were reviewed, and verbal consent was obtained for this encounter. This encounter is not related to previous similar encounter within the past 7 days. No face to face visit is planned in the next day in connection to this encounter. This telemedicine encounter was accomplished via PHONE. Telemedicine Evaluation for COVID-19 Infection Audio only was used for evaluation of this patient. Location of patient: [facility] Kelly Damian is a 72 year old male who presents with 2 days of symptoms that are stable. Symptoms include: Fever (?100.4F): No or Chills: No Cough: No Shortness of breath: No or Difficulty breathing: Yes Fatigue: Yes Muscle aches: No Headache: Yes New loss of smell or taste: No Sore throat: No Nasal congestion: Yes or Rhinorrhea: Yes Nausea: No or Vomiting: No Diarrhea: No OTC meds/remedies that patient has tried: none.. High risk category assessment Age > 60 years old Oncology patient Coronary artery disease Chronic lung disease ACTIVE PROBLEM LIST Bipolar Disorder (Hcc) Copd (Chronic Obstructive Pulmonary Disease) (Hcc) Benign Prostatic Hyperplasia With Urinary Frequency Chronic Hip Pain, Bilateral Chronic Bilateral Low Back Pain Tobacco Use Disorder Lymphedema Coronary Artery Disease Involving [employer] Coronary Artery Urinary Incontinence Gastroesophageal Reflux Disease Without Esophagitis Adenocarcinoma of Left Lung (Hcc) History of Colon Polyps Spinal Stenosis, Lumbar Region, With Neurogenic Claudication S/P Right Hip Fracture Physical Debility Obesity, Class II, Bmi 35-39.9 Bradycardia Adenocarcinoma of Right Lung (Hcc) Pulmonary Hypertension Due to Copd (Hcc) Obesity, Class I, Bmi 30-34.9 Hyponatremia Uncomplicated Alcohol Dependence (Hcc) Primary Hypertension Exposures: Sick contacts? Yes Family or close contacts with confirmed/probable COVID-19 in last 14 days? Yes He reports that he has been smoking cigarettes. He has a 60.00 pack-year smoking history. He has never used smokeless tobacco. ASSESSMENT/PLAN (U07.1) COVID-19 virus infection (primary encounter diagnosis) - Discussed symptom monitoring and supportive care - Red flag symptoms requiring follow up discussed Nirmatrelvir/Ritonavir (Paxlovid) Eligibility and Patient Discussion [facility] Formulary Restriction Criteria: Adult outpatients 18 years and older with ALL of the following: [x] Patient has positive SARS-COV-2 viral test (PCR or antigen test) during current illness [x] Patient has symptoms for 5 days or less [] Not requiring hospitalization at any time for management of COVID-19 [] Not requiring supplemental oxygen or a change in baseline supplemental oxygen [] Not utilized for pre-exposure or post-exposure prophylaxis for prevention of COVID-19 [] Patient does not have severe renal impairment (eGFR < 30 mL/min) or severe hepatic impairment (Child-Childs Class C) [] Meeting at least one of the criteria for high risk of progression to severe COVID-19: [x] Age over 65 years [x] Cancer [] Chronic kidney disease [] Chronic liver disease [x] Chronic lung diseases, including cystic fibrosis [] Dementia or other neurological conditions [] Diabetes (type 1 or type 2) [] Disabilities, including Down syndrome and neurodevelopmental disorders [x] Heart conditions [] HIV infection [] Immunocompromised state [] Mental health conditions [] Medical related technological dependence (tracheostomy, gastrostomy, or positive pressure ventilation (not related to COVID) [] Overweight and obesity (BMI greater or equal to 25 for adults) [] Physical inactivity [] [] Sickle cell disease or thalassemia [] Smoking, current or former [] Solid organ or blood stem cell transplant [] Stroke or cerebrovascular disease [] Substance use disorders [] Tuberculosis [] People from racial and ethnic minority groups Criteria above are met: Yes Date of Positive Test:05/09/22 Date of Symptom Onset: 05/08/22 Patient received COVID vaccine: Yes Drug-Drug interactions reviewed: No. I have discussed the use of the investigational therapeutic, nirmatrelvir/ritonavir, for the treatment of mild to moderate COVID-19 and its use under Emergency Use Authorization with the patient. The patient was informed that nirmatrelvir/ritonavir is not an FDA approved drug and that it is authorized for use under this Emergency Use Authorization. The patient was also informed of the significant known benefits and potential risks of nirmatrelvir/ritonavir, and the extent to which such potential risks and benefits are unknown. The patient was informed that there is mandatory reporting of all medication errors and serious adverse events potentially related to nirmatrelvir/ritonavir treatment within 7 calendar days from the onset of the event and that events up to 28 days after completion of therapy need to be reported. The discussion included alternatives to receiving nirmatrelvir/ritonavir, including clinical trials, and potential the risks and benefits of those alternatives. The patient was provided electronically with the Fact Sheet for Patients, Parents and Caregivers . The patient was also instructed that in addition to the treatment with nirmatrelvir/ritonavir, he/she should continue to self-isolate and use infection control measures (e.g., wear mask, isolate, social distance, avoid sharing personal items, clean and disinfect high touch surfaces, and frequent handwashing) according to CDC guidelines. The patient stated understanding and DECLINED nirmatrelvir/ritonavir treatment. Inocente Nichols MD May 10, 2022 11:39 AM I spent 10 minutes for this phone encounter. This patient encounter involved the screening or treatment of novel coronavirus infection (COVID-19). documented in this encounter [facility] 05-09-2022 Miscellaneous Notes Patient notified, verbalized understanding and scheduled with PCP tomorrow for phone visit. He meets the criteria for treatment with Paxlovid if his symptoms started less than 5 days ago. This medication can decrease the risk of complications in those with mild to moderate symptoms. If he is interested then please schedule for virtual visit today Valorie Allan APRN.CNP Liliam from [facility] calls and wanted to make provider aware that patient tested positive for Covid via home test. Patient symptoms are not bad. Patent's sister whom he lives with had tested positive previously. Елена Davis RN documented in this encounter [facility] 05-02-2022 History of Present illness Narrative Radiology Service Progress Note PATIENT NAME: Kelly Damian DATE OF SERVICE: May 02, 2022 TIME: 10:58 AM PATIENT IDENTITY VERIFICATION COMPLETED USING TWO (2) IDENTIFIERS: Name and Date of confirmed by patient verbally. FALL SCREENING: Has the patient had 2 falls in the last year or 1 fall with injury or currently using an Ambulatory Assistive Device (Walker, Cane, Wheelchair, Crutches, etc.)? No PATIENT GENDER DATA: Male PATIENT RELEVANT IMPLANT DATA REVIEWED: Yes RADIOLOGY DEPARTMENT: CT; Exam(s) Completed: Chest PERIPHERAL IV DATA: Not applicable SIGNED BY: RT Brennen(R) May 02, 2022 10:58 AM documented in this encounter [facility] 04-28-2022 Miscellaneous Notes Faxed last ov notes to [facility], per Liliam request. documented in this encounter [facility] 04-14-2022 Miscellaneous Notes Teena notified and voiced understanding. Danisha Marley Ma Continue with Lasix 40 mg daily and sodium chloride, prescriptions sent. Will order labs at follow-up on 04/18 Valorie Allan APRN.CNP Discharge summary from February admission on Valorie's desk to review. Danisha Marley Ma I need to review hospital discharge papers, please place copy on my desk Valorie Allan APRN.CARROL Teena, nurse with [facility] states pt has sodium chloride 1000mg tid in his med box. Pt was given this med when in [facility], he was discharged with 90 tabs. Teena asking if provider wants to refill this Rx? And does provider want to order a sodium level? Pt uses [facility]. While pt was hospitalized in Feb his lasix was increased to 40mg, Teena asking if provider wants pt to continue with 40mg or take 20mg as we have on pt's med list? Please advise. Radha Llamas LPN documented in this encounter [facility] 04-03-2022 Miscellaneous Notes Dona from [facility] calls to report that they are extending half-way services for 1 time a week times 4 weeks. No call back needed. Елена Davis RN documented in this encounter [facility] 03-27-2022 Miscellaneous Notes Noted. Follow up as scheduled. Teena with [facility] calls with patient update requested by provider. BP today at visit: 118/70 Respirations today at visit: 18 Patient has chest congestion and diminished lung sounds per his normal. Patient is a chronic heavy smoker and Teena reports no increased SOB or cough. Afebrile. No weight gain. Teena's call back number for further questions is [phone]. Zully Goss RN documented in this encounter [facility] 03-21-2022 Miscellaneous Notes Nurse Linda returned call and given provider's message below. Gaby Canas RN ' Left message for Linda nurse group program manager at [facility] to call back for orders. 1) continue to monitor BP and respiratory status. Have nurse update us in one week. I recommend he stop smoking. 2) verify his actual medications and send list here. [facility]) his lab results showed sodium was almost back to normal, potassium was mildly elevated, and glucose was stable. Brinda PT with [facility] called in she reports Pts systolic BP has slowly been creeping up. She reports yesterday it was in the 150s. Today she has taken it multiple times and it was in the 160s, she had gotten 163/73. She reports Pt sounds more congested, but she isn't a nurse so she has listened to him. She does reports that his sister tells her that he hasn't been feeling well. She states that Pt is a heavy smoker. Please call and advise. documented in this encounter [facility] 03-19-2022 Instructions Inocente Nichols MD - 03/19/2022 2:09 PM EDT BLOOD WORK TODAY. documented in this encounter [facility] 03-19-2022 History of Present illness Narrative This note was created using Vidcasterriter. Subjective Patient presents with: [facility] F/U Kelly Damian is a 71 year old male was admitted 03/07-03/12/22 for hyponatremia, copd, thrombocytopenia, chronic lymphedema, hypertension, CAD, lung cancer,bipolar, chronic alcohol use. He was discharged with home health. His medication list was not clear. [facility] He felt better. He complained of excessive somnolence. He had no acute concerns. Review of Systems Constitutional: Negative. Respiratory: Positive for shortness of breath. Cardiovascular: Positive for leg swelling. Gastrointestinal: Negative. Genitourinary: Negative. Musculoskeletal: Positive for gait problem. Skin: Negative for wound. Neurological: Positive for weakness. ACTIVE PROBLEM LIST Bipolar Disorder (Hcc) Copd (Chronic Obstructive Pulmonary Disease) (Hcc) Benign Prostatic Hyperplasia With Urinary Frequency Chronic Hip Pain, Bilateral Chronic Bilateral Low Back Pain Tobacco Use Disorder Lymphedema Coronary Artery Disease Involving [employer] Coronary Artery Urinary Incontinence Gastroesophageal Reflux Disease Without Esophagitis Adenocarcinoma of Left Lung (Hcc) History of Colon Polyps Spinal Stenosis, Lumbar Region, With Neurogenic Claudication S/P Right Hip Fracture Physical Debility Obesity, Class II, Bmi 35-39.9 Bradycardia Adenocarcinoma of Right Lung (Hcc) Pulmonary Hypertension Due to Copd (Hcc) Obesity, Class I, Bmi 30-34.9 Hyponatremia Uncomplicated Alcohol Dependence (Hcc) Primary Hypertension Current Outpatient Medications Medication Sig furosemide (LASIX) 20 mg tablet Take 1 tablet by mouth once daily. losartan (COZAAR) 50 mg tablet Take 1 tablet by mouth once daily. baclofen (LIORESAL) 10 mg tablet TAKE 1 PILL AT BEDTIME NEEDED FOR PAINFUL MUSCLE SPASMS, 90 day supply diclofenac, EC, (VOLTAREN) 75 mg EC tablet TAKE 1 PILL BY MOUTH WITH FOOD UP TO EVERY 12 HOURS NEEDED FOR PAIN bisacodyl (DULCOLAX) 10 mg supp 10 mg by RECTAL route once daily as needed for constipation. mineral oil (FLEET MINERAL OIL ENEMA) enema 133 mL by RECTAL route one time only. As needed magnesium hydroxide (MOM) 400 mg/5 mL suspension Take by mouth once daily as needed. multivitamin tablet Take 1 tablet by mouth once daily. albuterol HFA (PROVENTIL HFA, VENTOLIN HFA) 90 mcg/actuation inhaler Inhale 1-2 Puffs as instructed four times daily as needed. PULMICORT FLEXHALER 180 mcg/actuation aepb INHALE 2 PUFFS BY MOUTH TWICE DAILY FOR SHORTNESS OF BREATH - RINSE MOUTH AFTER USE cholecalciferol (VITAMIN D3) 1,000 unit tab tablet Take 2,000 Units by mouth once daily. finasteride (PROSCAR) 5 mg tablet Take 5 mg by mouth daily at bedtime. folic acid 1 mg tablet Take by mouth. melatonin 3 mg tablet Take 3 mg by mouth. omeprazole (PRILOSEC) 20 mg capsule TAKE 1 CAPSULE BY MOUTH EVERY DAY FOR GERD tamsulosin (FLOMAX) 0.4 mg Take 2 capsules by mouth daily at bedtime. [facility] medication. OLANZapine (ZYPREXA) 15 mg tablet Take 1 tablet by mouth daily at bedtime. VA medication. divalproex ER (DEPAKOTE ER) 500 mg 24 hr tablet Take 1 tablet by mouth daily at bedtime. [facility] medication. guaiFENesin (HUMIBID E) 400 mg tab Take 1 tablet by mouth three times daily. [facility] medication. thiamine (VITAMIN B1) 100 mg tablet Take by mouth. No current facility-administered medications for this visit. Objective BP 127/69 (BP Site: Left Arm, BP Position: Sitting, BP Cuff Size: Large Adult) Pulse (!) 55 Temp 36.2 C (97.1 F) (Temporal) Resp 24 Wt 113.5 kg (250 lb 4.8 oz) SpO2 94% BMI 34.91 kg/m Physical Exam Constitutional: General: He is not in acute distress. Appearance: He is obese. Cardiovascular: Rate and Rhythm: Regular rhythm. Bradycardia present. Heart sounds: No murmur heard. No gallop. Pulmonary: Effort: No respiratory distress. Breath sounds: Wheezing present. No rhonchi or rales. Abdominal: Palpations: Abdomen is soft. Tenderness: There is no abdominal tenderness. Musculoskeletal: Right lower le+ Pitting Edema present. Left lower le+ Pitting Edema present. Neurological: General: No focal deficit present. Mental Status: He is alert. Comments: Wheelchair bound. Psychiatric: Attention and Perception: Attention normal. Mood and Affect: Affect is flat. Speech: Speech normal. Behavior: Behavior is slowed. [facility] medication list updated thru Care Everywhere Assessment and Plan 1. Hyponatremia - ICD9: 276.1, ICD10: E87.1 (primary diagnosis) Recheck. - BASIC METABOLIC PNL - OSMOLALITY BLD 2. Obesity, Class I, BMI 30-34.9 - ICD9: 278.00, ICD10: E66.9 Weight decreasing 3. Centrilobular emphysema (HCC) - ICD9: 492.8, ICD10: J43.2 Stable. - GUAIFENESIN 400 MG TABLET 4. Lymphedema - ICD9: 457.1, ICD10: I89.0 Stable. 5. Uncomplicated alcohol dependence (HCC) - ICD9: 303.90, ICD10: F10.20 Reduction recommended. - CBC 6. Benign prostatic hyperplasia with urinary frequency - ICD9: 600.01, 788.41, ICD10: N40.1, R35.0 Medication list updated. - TAMSULOSIN 0.4 MG CAPSULE 7. Bipolar affective disorder, remission status unspecified (HCC) - ICD9: 296.80, ICD10: F31.9 Medication list updated. - OLANZAPINE 15 MG TABLET - DIVALPROEX ER 500 MG TABLET,EXTENDED RELEASE 24 HR 8. Primary hypertension - ICD9: 401.9, ICD10: I10 - good control - Continue current medication(s) Inocente Nichols MD documented in this encounter [facility] 03-18-2022 Miscellaneous Notes Carol MILTON calling from [facility] to report plan of care for patient and OT will visit patient 1 time a week for first week, 2 times a week times 2 weeks, and 1 time a week for 1 week. OT will work with patient on ADLs. No call back needed if agreeable Елена Davis RN documented in this encounter [facility] 03-10-2022 Miscellaneous Notes Below response left on confidential vm. Ceci Santamaria LPN I will follow. Angeles with [facility] calling to state patient is to discharge from [facility] on 03/11 with diagnosis of hyponatremia, COPD exacerbation, and lower extremity edema. Patient has orders for Home Health Nursing, PT and OT. Angeles asking if provider will follow patient? They would like to see patient on 03/12. Please call Angeles at [phone]. May leave detailed message on confidential voicemail. Thank you. documented in this encounter [facility] 03-07-2022 Miscellaneous Notes Patient admitted. Patient's sister Nathalie calls and is requesting an appointment with provider as soon as possible to go over medications. Patient bilateral legs are currently purple. Patient cannot stand. Patient has been having a hard time keeping his eyes open. Advised patient that with those symptoms that patient should be evaluated in the ER. Nathalie can then make an appointment with provider after he is seen in ER. Nathalie voices understanding and states that she will take patient to ER. Елена Davis RN documented in this encounter [facility] 02-27-2022 Note HNO ID: [id number] Author: Martita Belle MA Service: ? Author Type: Video Intern Type: Progress Notes Filed: 02/27/2022 4:23 PM Note Text: Review of Systems Constitutional: Negative for activity change, chills, fever and unexpected weight change. Gastrointestinal: Negative for bowel retention or incontinence Genitourinary: Negative for difficulty urinating. Negative for bladder retention or incontinence Musculoskeletal: Positive for back pain and gait problem. Negative for arthralgias, joint swelling, myalgias, neck pain and neck stiffness. Neurological: Negative for weakness, numbness and headaches. Psychiatric/Behavioral: Negative for dysphoric mood, sleep disturbance and suicidal ideas. The patient is not nervous/anxious. [facility] 02-27-2022 History of Present illness Narrative Review of Systems Constitutional: Negative for activity change, chills, fever and unexpected weight change. Gastrointestinal: Negative for bowel retention or incontinence Genitourinary: Negative for difficulty urinating. Negative for bladder retention or incontinence Musculoskeletal: Positive for back pain and gait problem. Negative for arthralgias, joint swelling, myalgias, neck pain and neck stiffness. Neurological: Negative for weakness, numbness and headaches. Psychiatric/Behavioral: Negative for dysphoric mood, sleep disturbance and suicidal ideas. The patient is not nervous/anxious. [facility] Patient name: Kelly Damian Date of : 1950 Today's Date: 02/27/2022 Physician performing procedure: Juancho Carpenter MD, JUAN Procedure: Right trochanteric bursal injection Injectate: A total of 5cc, consisting of 1cc of Depo-medrol (40mg/cc), the remainder consisting of 0.75% Bupivacaine Improvement after today's procedure: as per nursing report Diagnosis (Indication for procedure): (M48.062) Spinal stenosis of lumbar region with neurogenic claudication (primary encounter diagnosis) (M47.816) Lumbar spondylosis (M70.62) Trochanteric bursitis of left hip (M70.61) Trochanteric bursitis of right hip Comments: none HPI: Kelly Damian is an 71 year old MALE who presents today, in pain, for the procedure noted above. Data Reviewed: Current Medications, Past Medical History, Past Surgical History, Family History, Social History and Review of Systems: On Today's date, noted in the attribution, I have confirmed and edited as necessary, the PFSH and ROS obtained by others. Nursing note and vitals reviewed. Additional imaging reviewed as appropriate Review of Systems: Pertinent Positives: pain in the region being treated Neuro: no weakness or numbness in the region being treated Skin: Negative (No itching) Eyes: Negative (No blurred or double vision) Respiratory: Negative (No Cough, [id number], Dyspnea on exertion, wheezing) Cardiovascular: Negative (No Chest Pain, Tightness, Pressure, Palpitations) Gastrointestinal: Negative (No Abdominal pain, Nausea, Vomiting, Constipation, Diarrhea) Genitourinary: Negative (No dysuria) Hematologic: Negative (No bleeding, bruising) OB: is Denied or Not Applicable Endocrine: Negative (No hot/cold intolerance) Psychiatric: Negative (No depression, anxiety or suicidal ideation) PAST MEDICAL HISTORY Diagnosis Date Adenocarcinoma of left lung ([facility]) 01/27/2020 Adenocarcinoma of right lung ([facility]) 07/04/2021 Benign prostatic hyperplasia with urinary frequency 11/30/2020 Bipolar disorder ([facility]) 11/30/2020 Chronic bilateral low back pain 11/30/2020 Chronic hip pain, bilateral 11/30/2020 Closed fracture of right hip with routine healing 05/20/2021 COPD (chronic obstructive pulmonary disease) ([facility]) 11/30/2020 Coronary artery disease involving [place] coronary artery 11/30/2020 Esophageal stenosis Essential hypertension Falling episodes 05/20/2021 Gastroesophageal reflux disease without esophagitis 11/30/2020 History of colon polyps 03/27/2021 Lymphedema 11/30/2020 Mixed hyperlipidemia Other and unspecified hyperlipidemia Paroxysmal A-fib ([facility]) Pressure injury of sacral region, stage 2 ([facility]) 11/29/2021 Tobacco use disorder 11/30/2020 PAST SURGICAL HISTORY Procedure Laterality Date COLONOSCOPY 2005 10-15 years ago, [place], polyps x [address] BIOPSY - LUNG Left 01/27/2020 CT BIOPSY - LUNG Right 07/04/2021 [facility] 1ST INGUN HRNA AGE 5 YRS/> REDUCIBLE 07/20/2000 Hernia repair, inguinal, right TOTAL HIP REPLACEMENT Right 05/22/2021 [facility] FAMILY HISTORY Problem Relation Age of Onset Arthritis Mother Cancer Mother Cancer Father Social History Tobacco Use Smoking status: Every Day Packs/day: 2.00 Years: 30.00 Pack years: 60.00 Types: Cigarettes Smokeless tobacco: Never Tobacco comments: 3-4 cigarettes/day 07/29/21 Vaping Use Vaping Use: Never used Substance Use Topics Alcohol use: Not Currently Drug use: No Current Outpatient Medications on File Prior to Visit Medication Sig furosemide (LASIX) 20 mg tablet Take 1 tablet by mouth once daily. losartan (COZAAR) 50 mg tablet Take 1 tablet by mouth once daily. baclofen (LIORESAL) 10 mg tablet TAKE 1 PILL AT BEDTIME NEEDED FOR PAINFUL MUSCLE SPASMS, 90 day supply diclofenac, EC, (VOLTAREN) 75 mg EC tablet TAKE 1 PILL BY MOUTH WITH FOOD UP TO EVERY 12 HOURS NEEDED FOR PAIN bisacodyl (GENTLE LAXATIVE, BISACODYL,) 10 mg supp 10 mg by RECTAL route once daily as needed for constipation. mineral oil (FLEET MINERAL OIL ENEMA) enema 133 mL by RECTAL route one time only. As needed magnesium hydroxide (MILK OF MAGNESIA) 400 mg/5 mL suspension Take by mouth once daily as needed. multivitamin tablet Take 1 tablet by mouth once daily. divalproex ER (DEPAKOTE ER) 500 mg 24 hr tablet Take 1 tablet by mouth daily at bedtime. Take with 250 mg dose. divalproex ER (DEPAKOTE ER) 250 mg 24 hr tablet Take 1 tablet by mouth daily at bedtime. Take with 500 mg dose. OLANZapine (ZYPREXA) 10 mg tablet Take 1 tablet by mouth daily at bedtime. albuterol HFA (PROVENTIL HFA, VENTOLIN HFA) 90 mcg/actuation inhaler Inhale 1-2 Puffs as instructed four times daily as needed. PULMICORT FLEXHALER 180 mcg/actuation aepb INHALE 2 PUFFS BY MOUTH TWICE DAILY FOR SHORTNESS OF BREATH - RINSE MOUTH AFTER USE cholecalciferol (VITAMIN D3) 1,000 unit tab tablet Take 2,000 Units by mouth once daily. finasteride (PROSCAR) 5 mg tablet Take 5 mg by mouth daily at bedtime. folic acid 1 mg tablet Take by mouth. melatonin 3 mg tablet Take 3 mg by mouth. omeprazole (PRILOSEC) 20 mg capsule TAKE 1 CAPSULE BY MOUTH EVERY DAY FOR GERD tamsulosin (FLOMAX) 0.4 mg TAKE 1 CAPSULE BY MOUTH AT BEDTIME FOR BPH thiamine (VITAMIN B1) 100 mg tablet Take by mouth. No current facility-administered medications on file prior to visit. ALLERGIES No Known Allergies Objective Exam: Vitals: As per nursing documentation Constitutional: Normal Appearance, Oriented to Time, Place and Person Head: No lacerations, no external signs of trauma Eyes: Conjunctiva clear. No discharge from the eyes Cardiovascular: Appears well-perfused Pulmonary: Non-labored respirations Abdominal: Non-distended Skin: No visible rashes or ecchymosis Psychiatric: Mood appropriate for given condition Neurological: Gross movements are limited by pain, but otherwise unremarkable Assessment and Plan: As noted above [place] protocol documentation / Pre-Procedure Checklist: Consent: Obtained verbally prior to procedure I had a nice discussion with the patient today about their current pain and the pathology that could be causing it We discussed different treatment options, including risks, benefits and alternatives. We agreed to proceed as previously discussed, or the plan was modified in accordance with the comments noted above Patient identifiers, including name and date of , were confirmed After discussing risks and benefits, reviewing patient's allergy list to ensure all medications being given are tolerated to the best of our known information, the in-office procedure noted above was performed at the location(s) noted above. The region(s) mentioned above were prepped using sterile technique. A 3.5 inch 25 gauge needle was used carefully inserted and advanced into the target region noted above. After negative aspiration, the injectate noted above was then slowly injected without resistance into the target region. After careful removal of the needle, there was minimal bleeding. The injection site was covered with appropriate sterile dressing where needed. The patient was noted to have tolerated the procedure well and was discharged after an appropriate period of post-procedure observation. The patient was instructed to contact us if there were any complications. The patient was advised to follow-up with the requesting physician within one to two weeks or as per their requested follow-up plan. Post procedure visit summary with written instructions was offered to the patient. Juancho Carpenter MD, MBA Pain Management [facility] Name: Kelly Damian : 1950 Purpose: Follow-up Date: 02/27/2022 Last Date 01/09/2022 Interval History: Kelly Damian returns, reporting pain is unchanged. He fell at home in July, fractured the right hip, had a hip replacement, was in a SNF. Developed a bed sore, now resolved. Pain in the proximal lateral thigh continues. Pain remains in his low back. No falls over the past month. Pain worse with standing and walking. He has visiting nursing to help arrange his medications. Mobic was advised to be discontinued, started on Diclofenac 75mg BID. He now reports that he is no longer taking Mobic, just the Diclofenac. Continues taking Baclofen 10mg qHS PRN spasms. Taking Morton 5/325 sparingly for breakthrough pain, able to stretch to about 2 months this time. He reports that the medications are providing slightly better pain relief. He completed a course of PT at home. Has been attending between October and December, has attended at least twice per week. Lift chair helping with mobility. He is also here today for right trochanteric bursal injection in office, see separate note. Initial HPI: (Obtained on 03/14/2021) Consult Inocente Nichols. Kelly Damian is a 70 year old year-old male, who presents with the following chief complaint(s): low back pain. Symptoms were first noted several months ago. The onset of symptoms was not sudden and was without associated trauma. Treatments prior to initial presentation include the following: Medications (See below), Modalities (eg. Heat, Ice), Physical Therapy , Home Exercise Program and Activity Modification. He was in a SNF for several months due to frequent falls and weakness, now in assisted living. Current Status: INTAKE PAIN ASSESSMENT 02/06/2022 02/27/2022 Are you having pain associated with your visit today? 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) - - Pain: Timing: constant Character: Aching Primary location: axial low back Radiation: into the left > right buttock Exacerbated factors: Standing and walking Alleviating factors: Sitting Medication: Current pain medications: Tylenol OTC 650mg, takes 4 per day Diclofenac 75mg BID PRN Baclofen 10mg qHS PRN spasms Morton 5/325, #28 ([id number]) - has two remaining Analgesia: Not adequate Function: Weekly Activity Level (0=none; 59=454+ minutes of total activity not including work activity): 2 Ambulation and Activities of Daily Living: With a walker or wheelchair Device Independent Exercise(s) or Activities: none 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 All prescriptions have been APPROPRIATELY filled. No suspicious activity was identified. by Juancho Carpenter MD 02/27/2022 Morton 5/325, #28 (01/09/2022; 11/14/2021; 05/16/2021) Greenlight from 03/14/2021: [facility] Depression-Revised (CESD-R): 0/60 (<16, no clinical significance; 16+, depressive symptoms) Generalized Anxiety Disorder (DENISE-7): 0 (0-4, minimal anxiety; 5-9, mild anxiety; 10-14, moderate anxiety; 15+, severe anxiety) Opioid Risk Tool (ORT): 0 (0-3, low risk or no risk; 4-7, moderate risk, 8+, high risk) Pain Medications Taken to Date (for the chief complaint(s)): Membrane Stabilizers: none NSAIDS: Voltaren (Diclofenac) and Mobic (Meloxicam) Opioids: Vicodin or Morton (Hydrocodone) Muscle Relaxants: Lioresal (Baclofen) and Zanaflex (Tizanidine) Topicals: none Other Prescription or OTC Pain Medications: Tylenol (Acetaminophen) Non-Pain Meds of Note: None Allergies: ALLERGIES No Known Allergies Current Medications, Past Medical History, Past Surgical History, Family History, Social History and Review of Systems: On today's date, noted in the attribution, I have confirmed and edited as necessary, the PFSH and ROS obtained by others. Diagnostic Studies: Reviewed Personally on today's date, noted in the attribution MRI Spine Report No resulted procedures found. CT L-spine 07/04/2021 (OSH): No severe central canal stenosis. DATE PROCEDURE IMPROVEMENT 07/03/2021 ILESI at L5-S1 No relief 04/11/2021 Troch Bursa (Rt) 100% x 3 months Physical Exam: 02/27/22 1538 Pulse: (!) 49 Resp: 18 SpO2: 96% Constitutional:obese Eyes: Conjunctiva clear. No discharge from eyes Cardiovascular: Appears well perfused Lymphatic: No visible regional lymphadenopathy Skin: Two skin breakdowns, 1cm x 0.5cm, over the right buttocks, just medial to the anal region Psychiatric: Full affect, Alert, Pleasant Neuro-Lower: Neural Tension Signs: Negative slump in bilateral lower limbs Sensation: Grossly intact to light touch in both lower limbs, L2-S1 Dermatomes Muscle Tone: Normal and symmetric throughout without clonus Strength: Iliopsoas (L2): 4 Left, 4 Right Quadriceps (L3) 4 Left, 4 Right Anterior Tibialis (L4): 4 Left, 4 Right Extensor Hallucis Longus (L5): 4 Left, 4 Right Gastrocnemius (S1): 4 Left, 4 Right Musculoskeletal-Lower: Inspection: Symmetric without atrophy Palpation: There is concordant tenderness in the lumbosacral paraspinals There is concordant tenderness over the bilateral PSIS Concordant tenderness over the greater trochanter on right There are minimal paraspinal spasms Spine Range of Motion: 50% decreased, with no pain at end range flexion The combination of extension and rotation results in concordant pain Hip Range of Motion: Normal external and internal rotation, with minimal pain at end ranges Sacroiliac Maneuvers: Deferred Diagnoses: (M48.062) Spinal stenosis of lumbar region with neurogenic claudication (primary encounter diagnosis) (M47.816) Lumbar spondylosis (M70.62) Trochanteric bursitis of left hip (M70.61) Trochanteric bursitis of right hip Impression: 71 year old male with significant past medical history for Bipolar, on Depakote, who presents with complaint(s) of axial low back pain, facet-mediated, difficulty walking presumably due to neurogenic claudication. Left hip pain due to trochanteric bursitis, presumably developed during recent deconditioning, improved after injection. Despite 3 months of daily PT in a SNF ending in Aug 2020, he had no improvement in his strength and pain levels. He fell in Jul 2021, fractured right hip, now s/p LIVIA, and with bed sores developed during SNF stay. Has developed a bursitis/tendonitis in the proximal right hip region. Plan: Kelly Damian would benefit from the following to reach personal goals for decreasing pain, improving function and work participation, and/or improving quality of life: -Interventional Procedure: Right trochanteric bursal injection (in office today, see separate note)The risks, benefits, alternative treatment options and prognosis of the procedure were discussed and all of the patient's questions/concerns were addressed to the patient s satisfaction. Unless explicitly instructed otherwise, patient was advised that they will need a river driver for after the procedure and that if no river driver is available and on site at the time of the procedure, the procedure will be cancelled. For any anticoagulants, the patient was advised on whether to continue or hold for this procedure. The patient expressed understanding and gave verbal consent to proceed. Medication(s): Morton 5/325 #28, taking sparingly, will refill today (advised to take less frequently - 28 pills to last 3 months. He agreed today that he will go at least 3 months between prescriptions and that I will not refill any earlier than this) Diclofenac 75mg BID - Continue Baclofen 10mg qHS PRN spasms - Continue OK to continue Tylenol OTC Additional Studies: None Referrals: No additional considerations at present Functional Shinto: Physical Therapy (Land-based) - continue home-based care Depending on response to the above-mentioned plan of care, in the future may consider evaluation for: Lumbar MBB/RFA - offered, declined (02/2022) -Follow-up: 2 months with PATTERN [facility]ER Attribution: In addition to reviewing the information noted above, some elements copied from my most recent clinical note(s), including the physical exam (completed in entirety today), and the impression and plan sections, have been updated where appropriate. All reflect current medical decision making from today's date. Juancho Carpenter MD, MBA Pain Management [facility] documented in this encounter [facility] 02-27-2022 Note HNO ID: [id number] Author: Juancho Carpenter MD Service: ? Author Type: Physician Type: Progress Notes Filed: 02/27/2022 4:23 PM Note Text: [facility] Patient name: Kelly Damian Date of : 1950 Today's Date: 02/27/2022 Physician performing procedure: Juancho Carpenter MD, MBA Procedure: Right trochanteric bursal injection Injectate: A total of 5cc, consisting of 1cc of Depo-medrol (40mg/cc), the remainder consisting of 0.75% Bupivacaine Improvement after today's procedure: as per nursing report Diagnosis (Indication for procedure): (M48.062) Spinal stenosis of lumbar region with neurogenic claudication (primary encounter diagnosis) (M47.816) Lumbar spondylosis (M70.62) Trochanteric bursitis of left hip (M70.61) Trochanteric bursitis of right hip Comments: none HPI: Kelly Damian is an 71 year old MALE who presents today, in pain, for the procedure noted above. Data Reviewed: Current Medications, Past Medical History, Past Surgical History, Family History, Social History and Review of Systems: On Today's date, noted in the attribution, I have confirmed and edited as necessary, the PFSH and ROS obtained by others. Nursing note and vitals reviewed. Additional imaging reviewed as appropriate Review of Systems: Pertinent Positives: pain in the region being treated Neuro: no weakness or numbness in the region being treated Skin: Negative (No itching) Eyes: Negative (No blurred or double vision) Respiratory: Negative (No Cough, [id number], Dyspnea on exertion, wheezing) Cardiovascular: Negative (No Chest Pain, Tightness, Pressure, Palpitations) Gastrointestinal: Negative (No Abdominal pain, Nausea, Vomiting, Constipation, Diarrhea) Genitourinary: Negative (No dysuria) Hematologic: Negative (No bleeding, bruising) OB: is Denied or Not Applicable Endocrine: Negative (No hot/cold intolerance) Psychiatric: Negative (No depression, anxiety or suicidal ideation) PAST MEDICAL HISTORY Diagnosis Date Adenocarcinoma of left lung (HCC) 01/27/2020 Adenocarcinoma of right lung (HCC) 07/04/2021 Benign prostatic hyperplasia with urinary frequency 11/30/2020 Bipolar disorder (HCC) 11/30/2020 Chronic bilateral low back pain 11/30/2020 Chronic hip pain, bilateral 11/30/2020 Closed fracture of right hip with routine healing 05/20/2021 COPD (chronic obstructive pulmonary disease) ([facility]) 11/30/2020 Coronary artery disease involving [place] coronary artery 11/30/2020 Esophageal stenosis Essential hypertension Falling episodes 05/20/2021 Gastroesophageal reflux disease without esophagitis 11/30/2020 History of colon polyps 03/27/2021 Lymphedema 11/30/2020 Mixed hyperlipidemia Other and unspecified hyperlipidemia Paroxysmal A-fib (HCC) Pressure injury of sacral region, stage 2 (HCC) 11/29/2021 Tobacco use disorder 11/30/2020 PAST SURGICAL HISTORY Procedure Laterality Date COLONOSCOPY 2005 10-15 years ago, [place], polyps x [address] BIOPSY - LUNG Left 01/27/2020 CT BIOPSY - LUNG Right 07/04/2021 [facility] 1ST INGUN HRNA AGE 5 YRS/> REDUCIBLE 07/20/2000 Hernia repair, inguinal, right TOTAL HIP REPLACEMENT Right 05/22/2021 [facility] FAMILY HISTORY Problem Relation Age of Onset Arthritis Mother Cancer Mother Cancer Father Social History Tobacco Use Smoking status: Every Day Packs/day: 2.00 Years: 30.00 Pack years: 60.00 Types: Cigarettes Smokeless tobacco: Never Tobacco comments: 3-4 cigarettes/day 07/29/21 Vaping Use Vaping Use: Never used Substance Use Topics Alcohol use: Not Currently Drug use: No Current Outpatient Medications on File Prior to Visit Medication Sig furosemide (LASIX) 20 mg tablet Take 1 tablet by mouth once daily. losartan (COZAAR) 50 mg tablet Take 1 tablet by mouth once daily. baclofen (LIORESAL) 10 mg tablet TAKE 1 PILL AT BEDTIME NEEDED FOR PAINFUL MUSCLE SPASMS, 90 day supply diclofenac, EC, (VOLTAREN) 75 mg EC tablet TAKE 1 PILL BY MOUTH WITH FOOD UP TO EVERY 12 HOURS NEEDED FOR PAIN bisacodyl (GENTLE LAXATIVE, BISACODYL,) 10 mg supp 10 mg by RECTAL route once daily as needed for constipation. mineral oil (FLEET MINERAL OIL ENEMA) enema 133 mL by RECTAL route one time only. As needed magnesium hydroxide (MILK OF MAGNESIA) 400 mg/5 mL suspension Take by mouth once daily as needed. multivitamin tablet Take 1 tablet by mouth once daily. divalproex ER (DEPAKOTE ER) 500 mg 24 hr tablet Take 1 tablet by mouth daily at bedtime. Take with 250 mg dose. divalproex ER (DEPAKOTE ER) 250 mg 24 hr tablet Take 1 tablet by mouth daily at bedtime. Take with 500 mg dose. OLANZapine (ZYPREXA) 10 mg tablet Take 1 tablet by mouth daily at bedtime. albuterol HFA (PROVENTIL HFA, VENTOLIN HFA) 90 mcg/actuation inhaler Inhale 1-2 Puffs as instructed four times daily as needed. PULMICORT FLEXHALER 180 mcg/actuation aepb (more content not included)... [facility] 02-27-2022 Note HNO ID: [id number] Author: Juancho Carpenter MD Service: ? Author Type: Physician Type: Progress Notes Filed: 02/27/2022 4:23 PM Note Text: [facility] Name: Kelly Damian : 1950 Purpose: Follow-up Date: 02/27/2022 Last Date 01/09/2022 Interval History: Kelly Damian returns, reporting pain is unchanged. He fell at home in July, fractured the right hip, had a hip replacement, was in a SNF. Developed a bed sore, now resolved. Pain in the proximal lateral thigh continues. Pain remains in his low back. No falls over the past month. Pain worse with standing and walking. He has visiting nursing to help arrange his medications. Mobic was advised to be discontinued, started on Diclofenac 75mg BID. He now reports that he is no longer taking Mobic, just the Diclofenac. Continues taking Baclofen 10mg qHS PRN spasms. Taking Morton 5/325 sparingly for breakthrough pain, able to stretch to about 2 months this time. He reports that the medications are providing slightly better pain relief. He completed a course of PT at home. Has been attending between October and December, has attended at least twice per week. Lift chair helping with mobility. He is also here today for right trochanteric bursal injection in office, see separate note. Initial HPI: (Obtained on 03/14/2021) Consult Inocente Nichols. Kelly Damian is a 70 year old year-old male, who presents with the following chief complaint(s): low back pain. Symptoms were first noted several months ago. The onset of symptoms was not sudden and was without associated trauma. Treatments prior to initial presentation include the following: Medications (See below), Modalities (eg. Heat, Ice), Physical Therapy , Home Exercise Program and Activity Modification. He was in a SNF for several months due to frequent falls and weakness, now in assisted living. Current Status: INTAKE PAIN ASSESSMENT 02/06/2022 02/27/2022 Are you having pain associated with your visit today? 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) - - Pain: Timing: constant Character: Aching Primary location: axial low back Radiation: into the left > right buttock Exacerbated factors: Standing and walking Alleviating factors: Sitting Medication: Current pain medications: Tylenol OTC 650mg, takes 4 per day Diclofenac 75mg BID PRN Baclofen 10mg qHS PRN spasms Morton 5/325, #28 () - has two remaining Analgesia: Not adequate Function: Weekly Activity Level (0=none; 00=320+ minutes of total activity not including work activity): 08/29 Ambulation and Activities of Daily Living: With a walker or wheelchair Device Independent Exercise(s) or Activities: none 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 All prescriptions have been APPROPRIATELY filled. No suspicious activity was identified. by Juancho Carpenter MD 02/27/2022 Morton 5/325, #28 (01/09/2022; 11/14/2021; 05/16/2021) Greenlight from 03/14/2021: [facility] Epid[facility] Depression-Revised (CESD-R): 0/60 (<16, no clinical significance; 16+, depressive symptoms) Generalized Anxiety Disorder (DENISE-7): 0/21 (0-4, minimal anxiety; 5-9, mild anxiety; 10-14, moderate anxiety; 15+, severe anxiety) Opioid Risk Tool (ORT): 0/26 (0-3, low risk or no risk; 4-7, moderate risk, 8+, high risk) Pain Medications Taken to Date (for the chief complaint(s)): Membrane Stabilizers: none NSAIDS: Voltaren (Diclofenac) and Mobic (Meloxicam) Opioids: Vicodin or Morton (Hydrocodone) Muscle Relaxants: Lioresal (Baclofen) and Zanaflex (Tizanidine) Topicals: none Other Prescription or OTC Pain Medications: Tylenol (Acetaminophen) Non-Pain Meds of Note: None Allergies: ALLERGIES No Known Allergies Current Medications, Past Medical History, Past Surgical History, Family History, Social History and Review of Systems: On today's date, noted in the attribution, I have confirmed and edited as necessary, the PFSH and ROS obtained by others. Diagnostic Studies: Reviewed Personally on today's date, noted in the attribution MRI Spine Report No resulted procedures found. CT L-spine 07/04/2021 (OSH): No severe central canal stenosis. DATE PROCEDURE IMPROVEMENT 07/03/2021 ILESI at L5-S1 No relief 04/11/2021 Troch Bursa (Rt) 100% x 3 months Physical Exam: 02/27/22 1538 Pulse: (!) 49 Resp: 18 SpO2: 96% Constitutional:obese Eyes: Conjunctiva clear. No discharge from eyes Cardiovascular: Appears well perfused Lymphatic: No visible regional lymphadenopathy Skin: Two skin breakdowns, 1cm x 0.5cm, over th (more content not included)... [facility] 02-06-2022 Instructions Inocente Nichols MD - 02/06/2022 10:36 AM EDT BLOOD WORK TODAY PREVIOUSLY ORDERED (BMP, BTNP) documented in this encounter [facility] 02-06-2022 History of Present illness Narrative This note was created using SCYFIX. Subjective Kelly Damian is a 71 year old male. [facility]. His ulcer was healed. Edema was stable on furosemide. His hypertension was not diagnosed previously. He just had a PET scan with favorable results. Recent echo showed preserved EF but pulmonary hypertension. Review of Systems Constitutional: Negative. Respiratory: Positive for shortness of breath. Negative for cough and wheezing. Cardiovascular: Positive for leg swelling. Negative for chest pain and palpitations. Gastrointestinal: Negative. Genitourinary: Negative. Musculoskeletal: Positive for gait problem. Skin: Negative for wound. Neurological: Positive for weakness. Psychiatric/Behavioral: Negative. ACTIVE PROBLEM LIST Bipolar Disorder (Hcc) Copd (Chronic Obstructive Pulmonary Disease) (Hcc) Benign Prostatic Hyperplasia With Urinary Frequency Chronic Hip Pain, Bilateral Chronic Bilateral Low Back Pain Tobacco Use Disorder Lymphedema Coronary Artery Disease Involving [employer] Coronary Artery Urinary Incontinence Gastroesophageal Reflux Disease Without Esophagitis Adenocarcinoma of Left Lung (Hcc) History of Colon Polyps Spinal Stenosis, Lumbar Region, With Neurogenic Claudication S/P Right Hip Fracture Physical Debility Obesity, Class II, Bmi 35-39.9 Bradycardia Adenocarcinoma of Right Lung (Hcc) Current Outpatient Medications Medication Sig baclofen (LIORESAL) 10 mg tablet TAKE 1 PILL AT BEDTIME NEEDED FOR PAINFUL MUSCLE SPASMS, 90 day supply furosemide (LASIX) 20 mg tablet Take 1 tablet by mouth once daily. diclofenac, EC, (VOLTAREN) 75 mg EC tablet TAKE 1 PILL BY MOUTH WITH FOOD UP TO EVERY 12 HOURS NEEDED FOR PAIN bisacodyl (GENTLE LAXATIVE, BISACODYL,) 10 mg supp 10 mg by RECTAL route once daily as needed for constipation. mineral oil (FLEET MINERAL OIL ENEMA) enema 133 mL by RECTAL route one time only. As needed magnesium hydroxide (MILK OF MAGNESIA) 400 mg/5 mL suspension Take by mouth once daily as needed. multivitamin tablet Take 1 tablet by mouth once daily. divalproex ER (DEPAKOTE ER) 500 mg 24 hr tablet Take 1 tablet by mouth daily at bedtime. Take with 250 mg dose. divalproex ER (DEPAKOTE ER) 250 mg 24 hr tablet Take 1 tablet by mouth daily at bedtime. Take with 500 mg dose. OLANZapine (ZYPREXA) 10 mg tablet Take 1 tablet by mouth daily at bedtime. albuterol HFA (PROVENTIL HFA, VENTOLIN HFA) 90 mcg/actuation inhaler Inhale 1-2 Puffs as instructed four times daily as needed. PULMICORT FLEXHALER 180 mcg/actuation aepb INHALE 2 PUFFS BY MOUTH TWICE DAILY FOR SHORTNESS OF BREATH - RINSE MOUTH AFTER USE cholecalciferol (VITAMIN D3) 1,000 unit tab tablet Take 2,000 Units by mouth once daily. finasteride (PROSCAR) 5 mg tablet Take 5 mg by mouth daily at bedtime. folic acid 1 mg tablet Take by mouth. melatonin 3 mg tablet Take 3 mg by mouth. omeprazole (PRILOSEC) 20 mg capsule TAKE 1 CAPSULE BY MOUTH EVERY DAY FOR GERD tamsulosin (FLOMAX) 0.4 mg TAKE 1 CAPSULE BY MOUTH AT BEDTIME FOR BPH thiamine (VITAMIN B1) 100 mg tablet Take by mouth. Current Facility-Administered Medications Medication Dose Route Frequency perflutren lipid microspheres 1.3 mL in NaCl (PF) 0.9% 10 mL injection (DEFINITY) INTRAVENOUS DIRECTED PRN sodium chloride 0.9 % (flush) 10 mL (BD POSIFLUSH) 10 mL INTRAVENOUS DIRECTED PRN Objective BP 156/72 (BP Site: Left Arm, BP Position: Sitting, BP Cuff Size: Large Adult) Pulse (!) 48 Temp 36.3 C (97.3 F) (Temporal Artery) Resp 28 Wt 117.8 kg (259 lb 9.6 oz) SpO2 94% BMI 36.21 kg/m Physical Exam Constitutional: General: He is not in acute distress. Eyes: Conjunctiva/sclera: Conjunctivae normal. Cardiovascular: Rate and Rhythm: Bradycardia present. Heart sounds: No murmur heard. No gallop. Pulmonary: Effort: No respiratory distress. Breath sounds: Decreased air movement present. No wheezing or rales. Abdominal: General: There is no distension. Tenderness: There is no abdominal tenderness. Musculoskeletal: Right lower le+ Pitting Edema present. Left lower le+ Pitting Edema present. Neurological: Mental Status: He is alert. Assessment and Plan 1. Primary hypertension - ICD9: 401.9, ICD10: I10 (primary diagnosis) - newly diagnosed - Reviewed risks of HTN and principles of treatment - Goal of BP <130/80 - LOSARTAN 50 MG TABLET. New medication. Discussed medication dosage, usage, goals of therapy, and side effects. 2. Lymphedema - ICD9: 457.1, ICD10: I89.0 Refilled. Do labs. - FUROSEMIDE 20 MG TABLET 3. Centrilobular emphysema (HCC) - ICD9: 492.8, ICD10: J43.2 Stable. 4. Adenocarcinoma of left lung (HCC) - ICD9: 162.9, ICD10: C34.92 Improved. 5. Adenocarcinoma of right lung (HCC) - ICD9: 162.9, ICD10: C34.91 Improved. 6. Bipolar disorder, in full remission, most recent episode mixed (HCC) - ICD9: 296.66, ICD10: F31.78 Per [place] psychiatrist. 7. Pulmonary hypertension due to COPD (HCC) - ICD9: 416.8, 496, ICD10: I27.23, J44.9 Noted on echo. Inocente Nichols MD documented in this encounter [facility] 01-30-2022 Miscellaneous Notes Report received. Order has been faxed. Carey Mora New order is in. If not already printed and faxed please do so. Thank you. Vita is stating order will need to state this is initial PETscan for new new nodule if using R code further questions please call Vita at [phone] option # 2 as patient is schedule this Thursday for PET scan. I faxed a noted back to the below number for Vita, telling her that the diagnosis code is correct and that the order is signed electronically. I spoke with Dr Harvey. The diagnosis code is correct. There is a new lung nodule that needs to be evaluated. so it is not for past history of lung cancer. And the order is electronically signed so we should be good to schedule. [facility] Vita is calling in regards to this patient's PET scan. Patient has previous Rt Lung cancer DX C34.11 and they are requesting a new pet scan order to reflect this dx and will also need Dr Harvey signature as current orders have no signature. DX used was R91.8 and they are requesting using Code C34.11 please refax to [phone] Harvey's notes from 01/22/22, pt needs scheduled for PET scan at [facility] I spoke with pt and he said he was waiting on us to scheduled and call him Can you please set this up ANDRÉS and notify pt? Thanks documented in this encounter [facility] 01-22-2022 History of Present illness Narrative CC: Patient presents with: 1 week follow up: leg HPI Kelly Damian is a 71 year old male who presents today for above. Patient was treated for cellulitis RLE on 01/15 with Doxycycline. Today patient reports redness and edema have improved in BLE. Denies fever, chills, pain, nausea, vomiting, diarrhea. He was started on Lasix 20 mg daily 12/07 for lymphedema. BNP was elevated, concerning for CHF. Chest x-ray normal. Echocardiogram showed pulmonary hypertension. Patient reports chronic SOB with exertion, no worse than usual. Denies PND, orthopnea, weight gain. REVIEW OF SYSTEMS See HPI PAST MEDICAL HISTORY Diagnosis Date Adenocarcinoma of left lung (HCC) 01/27/2020 Adenocarcinoma of right lung (HCC) 07/04/2021 Benign prostatic hyperplasia with urinary frequency 11/30/2020 Bipolar disorder (HCC) 11/30/2020 Chronic bilateral low back pain 11/30/2020 Chronic hip pain, bilateral 11/30/2020 Closed fracture of right hip with routine healing 05/20/2021 COPD (chronic obstructive pulmonary disease) (HCC) 11/30/2020 Coronary artery disease involving [place] coronary artery 11/30/2020 Esophageal stenosis Essential hypertension Falling episodes 05/20/2021 Gastroesophageal reflux disease without esophagitis 11/30/2020 History of colon polyps 03/27/2021 Lymphedema 11/30/2020 Mixed hyperlipidemia Other and unspecified hyperlipidemia Paroxysmal A-fib (HCC) Tobacco use disorder 11/30/2020 PAST SURGICAL HISTORY Procedure Laterality Date COLONOSCOPY 2006 10-15 years ago, [place], polyps x [address] BIOPSY - LUNG Left 01/27/2020 CT BIOPSY - LUNG Right 07/04/2021 [facility] 1ST INGUN HRNA AGE 5 YRS/> REDUCIBLE 07/20/2000 Hernia repair, inguinal, right TOTAL HIP REPLACEMENT Right 05/22/2021 [facility] ALLERGIES Patient has no known allergies. MEDICATIONS doxycycline (VIBRA-TABS) 100 mg tablet Take 1 tablet by mouth twice daily for 7 days. baclofen (LIORESAL) 10 mg tablet TAKE 1 PILL AT BEDTIME NEEDED FOR PAINFUL MUSCLE SPASMS, 90 day supply furosemide (LASIX) 20 mg tablet Take 1 tablet by mouth once daily. diclofenac, EC, (VOLTAREN) 75 mg EC tablet TAKE 1 PILL BY MOUTH WITH FOOD UP TO EVERY 12 HOURS NEEDED FOR PAIN bisacodyl (GENTLE LAXATIVE, BISACODYL,) 10 mg supp 10 mg by RECTAL route once daily as needed for constipation. mineral oil (FLEET MINERAL OIL ENEMA) enema 133 mL by RECTAL route one time only. As needed magnesium hydroxide (MILK OF MAGNESIA) 400 mg/5 mL suspension Take by mouth once daily as needed. multivitamin tablet Take 1 tablet by mouth once daily. divalproex ER (DEPAKOTE ER) 500 mg 24 hr tablet Take 1 tablet by mouth daily at bedtime. Take with 250 mg dose. divalproex ER (DEPAKOTE ER) 250 mg 24 hr tablet Take 1 tablet by mouth daily at bedtime. Take with 500 mg dose. OLANZapine (ZYPREXA) 10 mg tablet Take 1 tablet by mouth daily at bedtime. albuterol HFA (PROVENTIL HFA, VENTOLIN HFA) 90 mcg/actuation inhaler Inhale 1-2 Puffs as instructed four times daily as needed. PULMICORT FLEXHALER 180 mcg/actuation aepb INHALE 2 PUFFS BY MOUTH TWICE DAILY FOR SHORTNESS OF BREATH - RINSE MOUTH AFTER USE cholecalciferol (VITAMIN D3) 1,000 unit tab tablet Take 2,000 Units by mouth once daily. finasteride (PROSCAR) 5 mg tablet Take 5 mg by mouth daily at bedtime. folic acid 1 mg tablet Take by mouth. melatonin 3 mg tablet Take 3 mg by mouth. omeprazole (PRILOSEC) 20 mg capsule TAKE 1 CAPSULE BY MOUTH EVERY DAY FOR GERD tamsulosin (FLOMAX) 0.4 mg TAKE 1 CAPSULE BY MOUTH AT BEDTIME FOR BPH thiamine (VITAMIN B1) 100 mg tablet Take by mouth. FAMILY HISTORY Problem Relation Age of Onset Arthritis Mother Cancer Mother Cancer Father Social History Tobacco Use Smoking status: Current Every Day Smoker Packs/day: 2.00 Years: 30.00 Pack years: 60.00 Types: Cigarettes Smokeless tobacco: Never Used Tobacco comment: 3-4 cigarettes/day 07/29/21 Vaping Use Vaping Use: Never used Substance Use Topics Alcohol use: Not Currently Drug use: No PHYSICAL EXAM BP 146/86 Pulse (!) 47 Temp 36.4 C (97.5 F) (Temporal) Resp 22 SpO2 96% General Appearance: well appearing, in no acute distress, alert, obese Lungs: Lungs diminished throughout. No wheezing, rhonchi, rales. Heart: RRR without murmur, gallop, or rubs. No ectopy Ext: 1-2+ lymphedema BLE. Diminished pedal pulses. Bilateral lower legs with faint erythema, normal skin temperature, no calf tenderness or cording. Scabbed over excoriations right poe and posterolateral calf. No open areas, ulcerations, blisters. DATA REVIEWED: Most recent labs ASSESSMENT/PLAN: 1. Cellulitis of right lower leg - ICD9: 682.6, ICD10: L03.115 (primary diagnosis) Redness has improved but persisting. Unclear if just venous stasis dermatitis or cellulitis has not completely resolved. - Continue treatment with Doxycycline for another 3 days - Follow-up in one week if any worsening 2. Lymphedema - ICD9: 457.1, ICD10: I89.0 Improved with Lasix daily Recheck labs: - NT PRO BNP - BASIC METABOLIC PNL Prescription instructions reviewed with patient as applicable. Potential red flag symptoms discussed with the patient. Reviewed appropriate action plan to take if red flag symptoms occur. Patient agreeable to treatment plan. Valorie Allan APRN.CNP documented in this encounter [facility] 01-16-2022 History of Present illness Narrative Radiology Service Progress Note PATIENT NAME: Kelly Damian DATE OF SERVICE: January 16, 2022 TIME: 9:11 AM PATIENT IDENTITY VERIFICATION COMPLETED USING TWO (2) IDENTIFIERS: Name and Date of confirmed by patient verbally. FALL SCREENING: Has the patient had 2 falls in the last year or 1 fall with injury or currently using an Ambulatory Assistive Device (Walker, Cane, Wheelchair, Crutches, etc.)? Yes, Patient High Risk for Falls What interventions were put in place to prevent falls during this visit? Offered Assistance with Transfers/Clothing, Instructed Patient to Remain Seated (Not on Exam Table) Until Exam, and Increased Observations by Caregivers PATIENT GENDER DATA: Male PATIENT RELEVANT IMPLANT DATA REVIEWED: Not Applicable RADIOLOGY DEPARTMENT: CT; Exam(s) Completed: Chest PERIPHERAL IV DATA: Not applicable SIGNED BY: RT Braxton(R) January 16, 2022 9:11 AM documented in this encounter [facility] 01-15-2022 History of Present illness Narrative CC: Patient presents with: leg swelling: wound on right leg HPI Kelly Damian is a 71 year old male who presents today for above. Patient reports his home health nurse was concerned about a wound on his right lower leg. It had been seeping clear drainage but no purulence. There is redness to the right lower leg which patient states it usually is however he is unsure if it is any worse. Patient denies worsening edema, pain, fever, chills, or increased SOB. His legs are wrapped with [place] bandages for compression. He is not diabetic but is morbidly obese. REVIEW OF SYSTEMS See HPI PAST MEDICAL HISTORY Diagnosis Date Adenocarcinoma of left lung (HCC) 01/27/2020 Adenocarcinoma of right lung (HCC) 07/04/2021 Benign prostatic hyperplasia with urinary frequency 11/30/2020 Bipolar disorder (HCC) 11/30/2020 Chronic bilateral low back pain 11/30/2020 Chronic hip pain, bilateral 11/30/2020 Closed fracture of right hip with routine healing 05/20/2021 COPD (chronic obstructive pulmonary disease) (HCC) 11/30/2020 Coronary artery disease involving [place] coronary artery 11/30/2020 Esophageal stenosis Essential hypertension Falling episodes 05/20/2021 Gastroesophageal reflux disease without esophagitis 11/30/2020 History of colon polyps 03/27/2021 Lymphedema 11/30/2020 Mixed hyperlipidemia Other and unspecified hyperlipidemia Paroxysmal A-fib (HCC) Tobacco use disorder 11/30/2020 PAST SURGICAL HISTORY Procedure Laterality Date COLONOSCOPY 2005 10-15 [place] ago[place], polyps x [address] BIOPSY - LUNG Left 01/27/2020 CT BIOPSY - LUNG Right 07/04/2021 [facility] 1ST INGUN HRNA AGE 5 YRS/> REDUCIBLE 07/20/2000 Hernia repair, inguinal, right TOTAL HIP REPLACEMENT Right 05/22/2021 [facility] ALLERGIES Patient has no known allergies. MEDICATIONS doxycycline (VIBRA-TABS) 100 mg tablet Take 1 tablet by mouth twice daily for 7 days. HYDROcodone-acetaminophen (NORCO) 5-325 mg per tablet TAKE 1 PILL UP TO EVERY 6 HOURS NEEDED FOR SEVERE ACUTE BREAKTHROUGH PAIN. DO NOT EXCEED 4 PILLS IN A 24 HOUR PERIOD. baclofen (LIORESAL) 10 mg tablet TAKE 1 PILL AT BEDTIME NEEDED FOR PAINFUL MUSCLE SPASMS, 90 day supply furosemide (LASIX) 20 mg tablet Take 1 tablet by mouth once daily. diclofenac, EC, (VOLTAREN) 75 mg EC tablet TAKE 1 PILL BY MOUTH WITH FOOD UP TO EVERY 12 HOURS NEEDED FOR PAIN bisacodyl (GENTLE LAXATIVE, BISACODYL,) 10 mg supp 10 mg by RECTAL route once daily as needed for constipation. mineral oil (FLEET MINERAL OIL ENEMA) enema 133 mL by RECTAL route one time only. As needed magnesium hydroxide (MILK OF MAGNESIA) 400 mg/5 mL suspension Take by mouth once daily as needed. multivitamin tablet Take 1 tablet by mouth once daily. divalproex ER (DEPAKOTE ER) 500 mg 24 hr tablet Take 1 tablet by mouth daily at bedtime. Take with 250 mg dose. divalproex ER (DEPAKOTE ER) 250 mg 24 hr tablet Take 1 tablet by mouth daily at bedtime. Take with 500 mg dose. OLANZapine (ZYPREXA) 10 mg tablet Take 1 tablet by mouth daily at bedtime. albuterol HFA (PROVENTIL HFA, VENTOLIN HFA) 90 mcg/actuation inhaler Inhale 1-2 Puffs as instructed four times daily as needed. PULMICORT FLEXHALER 180 mcg/actuation aepb INHALE 2 PUFFS BY MOUTH TWICE DAILY FOR SHORTNESS OF BREATH - RINSE MOUTH AFTER USE cholecalciferol (VITAMIN D3) 1,000 unit tab tablet Take 2,000 Units by mouth once daily. finasteride (PROSCAR) 5 mg tablet Take 5 mg by mouth daily at bedtime. folic acid 1 mg tablet Take by mouth. melatonin 3 mg tablet Take 3 mg by mouth. omeprazole (PRILOSEC) 20 mg capsule TAKE 1 CAPSULE BY MOUTH EVERY DAY FOR GERD tamsulosin (FLOMAX) 0.4 mg TAKE 1 CAPSULE BY MOUTH AT BEDTIME FOR BPH thiamine (VITAMIN B1) 100 mg tablet Take by mouth. FAMILY HISTORY Problem Relation Age of Onset Arthritis Mother Cancer Mother Cancer Father Social History Tobacco Use Smoking status: Current Every Day Smoker Packs/day: 2.00 Years: 30.00 Pack years: 60.00 Types: Cigarettes Smokeless tobacco: Never Used Tobacco comment: 3-4 cigarettes/day 07/29/21 Vaping Use Vaping Use: Never used Substance Use Topics Alcohol use: Not Currently Drug use: No PHYSICAL EXAM BP 138/68 Pulse (!) 50 Temp 36.4 C (97.6 F) (Temporal) Resp 24 Wt 118.8 kg (262 lb) SpO2 94% BMI 36.54 kg/m General Appearance: alert, in no acute distress, obese Lungs: Lungs diminished throughout. No wheezing, rhonchi, rales. Heart: RRR without murmur, gallop, or rubs. No ectopy Ext: right lower leg- erythematous and hot to the touch from below the knee to the foot. Multiple tiny scabbed areas on the poe just below the knee, no drainage. A few small open areas upper calf just below popliteal area with some that are scabbed over and no drainage. No tenderness with palpation of lower leg. BLE- 2+ pitting edema BLE with R > L, diminished pedal pulses. No calf tenderness or cording. ASSESSMENT/PLAN: 1. Cellulitis of right lower leg - ICD9: 682.6, ICD10: L03.115 Superficial wounds/scabs. Exam findings concerning for cellulitis but no wound infection. - Begin treatment with Doxycycline, see orders - No lymphangetic streaking, this was defined for patient to watch for and to seek medical care immediately if appears - Area of cellulitis defined with pen, seek further attention if this area continues to enlarge - Follow up for recheck in one week or sooner as needed Prescription instructions reviewed with patient as applicable. Potential red flag symptoms discussed with the patient. Reviewed appropriate action plan to take if red flag symptoms occur. Patient agreeable to treatment plan. Valorie Allan APRN.CNP documented in this encounter [facility] 01-09-2022 Note HNO ID: [id number] Author: Radha Vo MA Service: ? Author Type: Video Intern Type: Progress Notes Filed: 01/09/2022 3:01 PM Note Text: Review of Systems Constitutional: Negative for activity change, chills, fever and unexpected weight change. Gastrointestinal: Negative for bowel retention or incontinence Genitourinary: Negative for difficulty urinating. Negative for bladder retention or incontinence Musculoskeletal: Positive for arthralgias, back pain, gait problem, joint swelling and myalgias. Negative for neck pain and neck stiffness. Neurological: Negative for weakness, numbness and headaches. Psychiatric/Behavioral: Negative for dysphoric mood, sleep disturbance and suicidal ideas. The patient is nervous/anxious. [facility] 01-09-2022 Instructions Juancho Carpenter MD - 01/09/2022 2:53 PM EDT Update for home nursin. Discontinue Meloxicam (Mobic) 2. Start Diclofenac 75mg, twice daily as needed for pain 3. Continue Baclofen 10mg qHS as needed for spasms 4. Continue Morton 5/325 (hydrocodone/tylenol), use sparingly for severe breakthrough pain (max of 2 per week) Juancho Carpenter III, MD, JUAN documented in this encounter [facility] 01-09-2022 History of Present illness Narrative Review of Systems Constitutional: Negative for activity change, chills, fever and unexpected weight change. Gastrointestinal: Negative for bowel retention or incontinence Genitourinary: Negative for difficulty urinating. Negative for bladder retention or incontinence Musculoskeletal: Positive for arthralgias, back pain, gait problem, joint swelling and myalgias. Negative for neck pain and neck stiffness. Neurological: Negative for weakness, numbness and headaches. Psychiatric/Behavioral: Negative for dysphoric mood, sleep disturbance and suicidal ideas. The patient is nervous/anxious. [facility] [place] [facility] Name: Kelly Damian : 1950 Purpose: Follow-up Date: 01/09/2022 Last Date 11/14/2021 Interval History: Kelly Damian returns, reporting pain is unchanged. He fell at home in July, fractured the right hip, had a hip replacement, was in a SNF. [facility] He has been managed at home with home nursing. Pain in the proximal lateral thigh continues. Pain remains in his low back. No falls over the past month. Pain worse with standing and walking. Mobic was advised to be discontinued, started on Diclofenac 75mg BID. He gets his medications from home nursing, report reviewed today, shows he is still taking Mobic. Continues taking Baclofen 10mg qHS PRN spasms per nursing notes. Taking Morton 5/325 sparingly for breakthrough pain, ran out two weeks ago He reports that the medications are providing slightly better pain relief. He completed a course of PT at home. Has been attending between October and December, has attended at least twice per week. Lift chair helping with mobility. Initial HPI: (Obtained on 03/14/2021) Consult Inocente Nichols. Kelly Damian is a 70 year old year-old male, who presents with the following chief complaint(s): low back pain. Symptoms were first noted several months ago. The onset of symptoms was not sudden and was without associated trauma. Treatments prior to initial presentation include the following: Medications (See below), Modalities (eg. Heat, Ice), Physical Therapy , Home Exercise Program and Activity Modification. He was in a SNF for several months due to frequent falls and weakness, now in assisted living. Current Status: INTAKE PAIN ASSESSMENT 12/06/2021 01/09/2022 Are you having pain associated with your visit today? No Yes, Provider notified Pain Scales - Verbal (Numeric Rating or Visual Analog Scale) Pain Level - 8 Pain Location - Back-Lower Description - Sharp;Shooting;Aching Duration Units - Years Frequency - Continuous Intervention/Comfort measure - Medication;Reposition;Relaxation; Positioning Comments - PT Exercises Pain Assessment (RN/PHLEBOTOMY PROGRAM COORDINATOR) - - Pain: Timing: constant Character: Aching Primary location: axial low back Radiation: into the left > right buttock Exacerbated factors: Standing and walking Alleviating factors: Sitting Medication: Current pain medications: o Tylenol OTC 650mg, takes 4 per day o Diclofenac 75mg BID PRN o Baclofen 10mg qHS PRN spasms o Morton 5/325, #28 (11/14/2021) Analgesia: Not adequate Function: Weekly Activity Level (0=none; 45=954+ minutes of total activity not including work activity): 08/29 Ambulation and Activities of Daily Living: With a walker or wheelchair Device Independent Exercise(s) or Activities: none 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 All prescriptions have been APPROPRIATELY filled. No suspicious activity was identified. by Juancho Carpenter MD 01/09/2022 Morton 5/325, #28 (11/14/2021; 05/16/2021) Greenlight from 03/14/2021: [facility] Depression-Revised (CESD-R): 0/60 (<16, no clinical significance; 16+, depressive symptoms) Generalized Anxiety Disorder (DENISE-7): 0/21 (0-4, minimal anxiety; 5-9, mild anxiety; 10-14, moderate anxiety; 15+, severe anxiety) Opioid Risk Tool (ORT): 0/26 (0-3, low risk or no risk; 4-7, moderate risk, 8+, high risk) Pain Medications Taken to Date (for the chief complaint(s)): Membrane Stabilizers: none NSAIDS: Voltaren (Diclofenac) and Mobic (Meloxicam) Opioids: Vicodin or Morton (Hydrocodone) Muscle Relaxants: Lioresal (Baclofen) and Zanaflex (Tizanidine) Topicals: none Other Prescription or OTC Pain Medications: Tylenol (Acetaminophen) Non-Pain Meds of Note: None Allergies: ALLERGIES No Known Allergies Current Medications, Past Medical History, Past Surgical History, Family History, Social History and Review of Systems: On today's date, noted in the attribution, I have confirmed and edited as necessary, the PFSH and ROS obtained by others. Diagnostic Studies: Reviewed Personally on today's date, noted in the attribution MRI Spine Report No resulted procedures found. CT L-spine 07/04/2021 ([facility]): No severe central canal stenosis. DATE PROCEDURE IMPROVEMENT 07/03/2021 ILESI at L5-S1 No relief 04/11/2021 Troch Bursa (Rt) 100% x 3 months Physical Exam: 01/09/22 1433 Pulse: (!) 48 Resp: 18 SpO2: 98% Constitutional:obese Eyes: Conjunctiva clear. No discharge from eyes Cardiovascular: Appears well perfused Lymphatic: No visible regional lymphadenopathy Skin: Two skin breakdowns, 1cm x 0.5cm, over the right buttocks, just medial to the anal region Psychiatric: Full affect, Alert, Pleasant Neuro-Lower: Neural Tension Signs: ? Negative slump in bilateral lower limbs Sensation: ? Grossly intact to light touch in both lower limbs, L2-S1 Dermatomes Muscle Tone: ? Normal and symmetric throughout without clonus Strength: ? Iliopsoas (L2): 4 Left, 4 Right ? Quadriceps (L3) 4 Left, 4 Right ? Anterior Tibialis (L4): 4 Left, 4 Right ? Extensor Hallucis Longus (L5): 4 Left, 4 Right ? Gastrocnemius (S1): 4 Left, 4 Right Musculoskeletal-Lower: Inspection: ? Symmetric without atrophy Palpation: ? There is concordant tenderness in the lumbosacral paraspinals ? There is concordant tenderness over the bilateral PSIS ? Concordant tenderness over the greater trochanter on right ? There are minimal paraspinal spasms Spine Range of Motion: ? 50% decreased, with no pain at end range flexion ? The combination of extension and rotation results in concordant pain Hip Range of Motion: ? Normal external and internal rotation, with minimal pain at end ranges Sacroiliac Maneuvers: ? Deferred Diagnoses: (M47.816) Lumbar spondylosis (M48.062) Spinal stenosis of lumbar region with neurogenic claudication (M70.62) Trochanteric bursitis of left hip (M48.062) Spinal stenosis, lumbar region with neurogenic claudication Impression: 71 year old male with significant past medical history for Bipolar, on Depakote, who presents with complaint(s) of axial low back pain, facet-mediated, difficulty walking presumably due to neurogenic claudication. Left hip pain due to trochanteric bursitis, presumably developed during recent deconditioning, improved after injection. Despite 3 months of daily PT in a SNF ending in Aug 2020, he had no improvement in his strength and pain levels. He fell in Jul 2021, fractured right hip, now s/p LIVIA, and with bed sores developed during SNF stay. Has developed a bursitis/tendonitis in the proximal right hip region. Plan: Kelly Damian would benefit from the following to reach personal goals for decreasing pain, improving function and work participation, and/or improving quality of life: Medication(s): Morton 5/325 #28, taking sparingly, will refill today (advised to take less frequently - 28 pills to last 3 months) Mobic 15mg daily - Discontinue (still taking per home nursing documents, completed documentation for them clarifying he should be taking Diclofenac) Diclofenac 75mg BID - Start Baclofen 10mg qHS PRN spasms - resume OK to continue Tylenol OTC Additional Studies: None Referrals: No additional considerations at present Functional Shinto: Physical Therapy (Land-based) - continue home-based care Depending on response to the above-mentioned plan of care, in the future may consider evaluation for: Lumbar MBB/RFA - can resume after his bedsores heal -Follow-up: 2 months Attribution: In addition to reviewing the information noted above, some elements copied from my most recent clinical note(s), including the physical exam (completed in entirety today), and the impression and plan sections, have been updated where appropriate. All reflect current medical decision making from today's date Juancho Carpenter MD, MBA Pain Management [facility] documented in this encounter [facility] 01-09-2022 Note HNO ID: [id number] Author: Juancho Carpenter MD Service: ? Author Type: Physician Type: Progress Notes Filed: 01/09/2022 3:01 PM Note Text: [facility] Name: Kelly Damian : 1950 Purpose: Follow-up Date: 01/09/2022 Last Date 11/14/2021 Interval History: Kelly Damian returns, reporting pain is unchanged. He fell at home in July, fractured the right hip, had a hip replacement, was in a SNF. Developed a bed sore, managed at the [facility]. He has been managed at home with home nursing. Pain in the proximal lateral thigh continues. Pain remains in his low back. No falls over the past month. Pain worse with standing and walking. Mobic was advised to be discontinued, started on Diclofenac 75mg BID. He gets his medications from home nursing, report reviewed today, shows he is still taking Mobic. Continues taking Baclofen 10mg qHS PRN spasms per nursing notes. Taking Morton 5/325 sparingly for breakthrough pain, ran out two weeks ago He reports that the medications are providing slightly better pain relief. He completed a course of PT at home. Has been attending between October and December, has attended at least twice per week. Lift chair helping with mobility. Initial HPI: (Obtained on 03/14/2021) Consult Inocente Nichols. Kelly Damian is a 70 year old year-old male, who presents with the following chief complaint(s): low back pain. Symptoms were first noted several months ago. The onset of symptoms was not sudden and was without associated trauma. Treatments prior to initial presentation include the following: Medications (See below), Modalities (eg. Heat, Ice), Physical Therapy , Home Exercise Program and Activity Modification. He was in a SNF for several months due to frequent falls and weakness, now in assisted living. Current Status: INTAKE PAIN ASSESSMENT 12/06/2021 01/09/2022 Are you having pain associated with your visit today? No Yes, Provider notified Pain Scales - Verbal (Numeric Rating or Visual Analog Scale) Pain Level - 8 Pain Location - Back-Lower Description - Sharp;Shooting;Aching Duration Units - Years Frequency - Continuous Intervention/Comfort measure - Medication;Reposition;Relaxation; Positioning Comments - PT Exercises Pain Assessment (RN/PHLEBOTOMY PROGRAM COORDINATOR) - - Pain: - Timing: constant - Character: Aching - Primary location: axial low back - Radiation: into the left > right buttock - Exacerbated factors: Standing and walking - Alleviating factors: Sitting Medication: - Current pain medications: o Tylenol OTC 650mg, takes 4 per day o Diclofenac 75mg BID PRN o Baclofen 10mg qHS PRN spasms o Morton 5/325, #28 (11/14/2021) - Analgesia: Not adequate Function: - Weekly Activity Level (0=none; 27=679+ minutes of total activity not including work activity): 08/29 - Ambulation and Activities of Daily Living: With a walker or wheelchair Device - Independent Exercise(s) or Activities: none - 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 All prescriptions have been APPROPRIATELY filled. No suspicious activity was identified. by Juancho Carpenter MD 01/09/2022 Sincere 5/325, #28 (11/14/2021; 05/16/2021) Greenlight from 03/14/2021: - [facility] Depression-Revised (CESD-R): 0/60 (<16, no clinical significance; 16+, depressive symptoms) - Generalized Anxiety Disorder (DENISE-7): 0/ (0-4, minimal anxiety; 5-9, mild anxiety; 10-14, moderate anxiety; 15+, severe anxiety) - Opioid Risk Tool (ORT): 0 (0-3, low risk or no risk; 4-7, moderate risk, 8+, high risk) Pain Medications Taken to Date (for the chief complaint(s)): Membrane Stabilizers: none NSAIDS: Voltaren (Diclofenac) and Mobic (Meloxicam) Opioids: Vicodin or Morton (Hydrocodone) Muscle Relaxants: Lioresal (Baclofen) and Zanaflex (Tizanidine) Topicals: none Other Prescription or OTC Pain Medications: Tylenol (Acetaminophen) Non-Pain Meds of Note: None Allergies: ALLERGIES No Known Allergies Current Medications, Past Medical History, Past Surgical History, Family History, Social History and Review of Systems: On today's date, noted in the attribution, I have confirmed and edited as necessary, the PFSH and ROS obtained by others. Diagnostic Studies: Reviewed Personally on today's date, noted in the attribution MRI Spine Report No resulted procedures found. CT L-spine 07/04/2021 ([facility]): No severe central canal stenosis. DATE PROCEDURE IMPROVEMENT 07/03/2021 ILESI at L5-S1 No relief 04/11/2021 Troch Bursa (Rt) 100% x 3 months Physical Exam: 01/09/22 1433 Pulse: (!) 48 Resp: 18 SpO2: 98% Constitutional:obese Eyes: Conjunctiva clear. No discharge from eyes Cardiovascular: Appears well perfused Lymphatic: No visible regional lymphadenopathy Skin: Two skin breakdowns, 1cm x 0.5cm, over the r (more content not included)... [facility] 12-13-2021 Miscellaneous Notes Signed and faxed back. rec'd and to pcp to review. Otilia from [facility] calling to state she will be faxing orders to pcp for wound care. Asking if pcp will sign & authorize. Fax # provided. Radha Llamas LPN documented in this encounter [facility] 12-12-2021 Miscellaneous Notes Patient notified, verbalized understanding. Ceci Santamaria LPN ----- Message from Inocente Nichols MD sent at 12/12/2021 8:16 AM EDT ----- No acute findings. R lung nodule as before, already biopsied. documented in this encounter [facility] 12-09-2021 Miscellaneous Notes Pt called and is notified of providers results and instructions. Pt voices understanding. Pt was put through to scheduling to set appointment for an Echo. Berenice Hoyos RN Patient notified and verbalized understanding. Transferred to scheduling. Service Station Cashier's please make sure patient was scheduled for ECHO. Thanks. ----- Message from Inocente Nichols MD sent at 12/07/2021 3:56 PM EDT ----- Labs concerning for CHF. Start furosemide 20 mg daily. Check echocardiogram. documented in this encounter [facility] 12-09-2021 Miscellaneous Notes Mel- PT- [facility], calling in POC: will see patient 3 'x's for 1 week, 2 x's week for 3 weeks, for strength, balance, gait, and transfer training. documented in this encounter [facility] 12-06-2021 Miscellaneous Notes Faxes sent to [facility] and [facility]ound [facility] per request. Nika Esparza LPN Linda with [facility] calls in to also request a referral be sent to the Wound Center at [facility] for the stage 2 pressure ulcer to sacrum as well. Zully Goss RN Linda from [facility] calls and states that there was some confusion to patient's home health orders. [facility] is discharging patient from their services, so that [facility] can clam picker patient for their services. Linda asking for Home Health orders for half-way. Please fax over today's office visit note to . Please review and advise, Елена Davis RN documented in this encounter [facility] documented as of this encounter (statuses as of 08/12/2022) [facility]20[facility]2022 History of Past illness Narrative* Problem Noted Date Resolved Date Obesity, Class II, BMI 35-39.9 12/06/2021 0 08/11/2022 Pressure injury of sacral region, stage 2 202102/06/2022 Obesity, Class II, BMI 35-39.9 03/27/2021 0 12/06/2021 Obesity, Class I, BMI 30-34.9 11/30/2020 documented as of this encounter (statuses as of 08/22/2022) [facility] History of Past illness Narrative* Problem Noted Date Resolved Date Obesity, Class II, BMI 35-39.9 12/06/2021 0 08/11/2022 Pressure injury of sacral region, stage 2 202102/06/2022 Obesity, Class II, BMI 35-39.9 03/27/2021 0 12/06/2021 Obesity, Class I, BMI 30-34.9 11/30/2020 documented as of this encounter (statuses as of 10/20/2022) [facility] History of Past illness Narrative* Problem Noted Date Resolved Date Obesity, Class II, BMI 35-39.9 12/06/2021 0 08/11/2022 Pressure injury of sacral region, stage 2 202102/06/2022 Obesity, Class II, BMI 35-39.9 03/27/2021 0 12/06/2021 Obesity, Class I, BMI 30-34.9 11/30/2020 documented as of this encounter (statuses as of 10/30/2022) [facility] History of Past illness Narrative* Problem Noted Date Resolved Date Obesity, Class II, BMI 35-39.9 12/06/2021 0 08/11/2022 Pressure injury of sacral region, stage 2 202102/06/2022 Obesity, Class II, BMI 35-39.9 03/27/2021 0 12/06/2021 Obesity, Class I, BMI 30-34.9 11/30/2020 documented as of this encounter (statuses as of 10/31/2022) [facility] History of Past illness Narrative* Problem Noted Date Resolved Date Obesity, Class II, BMI 35-39.9 12/06/2021 0 08/11/2022 Pressure injury of sacral region, stage 2 202102/06/2022 Obesity, Class II, BMI 35-39.9 03/27/2021 0 12/06/2021 Obesity, Class I, BMI 30-34.9 11/30/2020 documented as of this encounter (statuses as of 11/05/2022) [facility] History of Past illness Narrative* Problem Noted Date Resolved Date Obesity, Class II, BMI 35-39.9 12/06/2021 0 08/11/2022 Pressure injury of sacral region, stage 2 202102/06/2022 Obesity, Class II, BMI 35-39.9 03/27/2021 0 12/06/2021 Obesity, Class I, BMI 30-34.9 11/30/2020 documented as of this encounter (statuses as of 11/11/2022) [facility] History of Past illness Narrative* Problem Noted Date Resolved Date Obesity, Class II, BMI 35-39.9 12/06/2021 0 08/11/2022 Pressure injury of sacral region, stage 2 202102/06/2022 Obesity, Class II, BMI 35-39.9 03/27/2021 0 12/06/2021 Obesity, Class I, BMI 30-34.9 11/30/2020 documented as of this encounter (statuses as of 11/13/2022) [facility] History of Past illness Narrative* Problem Noted Date Resolved Date Obesity, Class II, BMI 35-39.9 12/06/2021 0 08/11/2022 Pressure injury of sacral region, stage 2 202102/06/2022 Obesity, Class II, BMI 35-39.9 03/27/2021 0 12/06/2021 Obesity, Class I, BMI 30-34.9 11/30/2020 documented as of this encounter (statuses as of 11/15/2022) [facility] History of Past illness Narrative* Problem Noted Date Resolved Date Obesity, Class II, BMI 35-39.9 12/06/2021 0 08/11/2022 Pressure injury of sacral region, stage 2 202102/06/2022 Obesity, Class II, BMI 35-39.9 03/27/2021 0 12/06/2021 Obesity, Class I, BMI 30-34.9 11/30/2020 documented as of this encounter (statuses as of 11/17/2022) [facility] History of Past illness Narrative* Problem Noted Date Resolved Date Obesity, Class II, BMI 35-39.9 12/06/2021 0 08/11/2022 Pressure injury of sacral region, stage 2 202102/06/2022 Obesity, Class II, BMI 35-39.9 03/27/2021 0 12/06/2021 Obesity, Class I, BMI 30-34.9 11/30/2020 documented as of this encounter (statuses as of 11/18/2022) [facility] History of Past illness Narrative* Problem Noted Date Resolved Date Obesity, Class II, BMI 35-39.9 12/06/2021 0 08/11/2022 Pressure injury of sacral region, stage 2 202102/06/2022 Obesity, Class II, BMI 35-39.9 03/27/2021 0 12/06/2021 Obesity, Class I, BMI 30-34.9 11/30/2020 documented as of this encounter (statuses as of 11/19/2022) [facility] History of Past illness Narrative* Problem Noted Date Resolved Date Obesity, Class II, BMI 35-39.9 12/06/2021 0 08/11/2022 Pressure injury of sacral region, stage 2 202102/06/2022 Obesity, Class II, BMI 35-39.9 03/27/2021 0 12/06/2021 Obesity, Class I, BMI 30-34.9 11/30/2020 documented as of this encounter (statuses as of 11/24/2022) [facility] History of Past illness Narrative* Problem Noted Date Resolved Date Obesity, Class II, BMI 35-39.9 12/06/2021 0 08/11/2022 Pressure injury of sacral region, stage 2 202102/06/2022 Obesity, Class II, BMI 35-39.9 03/27/2021 0 12/06/2021 Obesity, Class I, BMI 30-34.9 11/30/2020 documented as of this encounter (statuses as of 11/27/2022) [facility] History of Past illness Narrative* Problem Noted Date Resolved Date Obesity, Class II, BMI 35-39.9 12/06/2021 0 08/11/2022 Pressure injury of sacral region, stage 2 202102/06/2022 Obesity, Class II, BMI 35-39.9 03/27/2021 0 12/06/2021 Obesity, Class I, BMI 30-34.9 11/30/2020 documented as of this encounter (statuses as of 11/28/2022) [facility] History of Past illness Narrative* Problem Noted Date Resolved Date Obesity, Class II, BMI 35-39.9 12/06/2021 0 08/11/2022 Pressure injury of sacral region, stage 2 202102/06/2022 Obesity, Class II, BMI 35-39.9 03/27/2021 0 12/06/2021 Obesity, Class I, BMI 30-34.9 11/30/2020 documented as of this encounter (statuses as of 12/02/2022) [facility] History of Past illness Narrative* Problem Noted Date Resolved Date Obesity, Class II, BMI 35-39.9 12/06/2021 0 08/11/2022 Pressure injury of sacral region, stage 2 202102/06/2022 Obesity, Class II, BMI 35-39.9 03/27/2021 0 12/06/2021 Obesity, Class I, BMI 30-34.9 11/30/2020 documented as of this encounter (statuses as of 12/17/2022) [facility] History of Past illness Narrative* Problem Noted Date Resolved Date Obesity, Class II, BMI 35-39.9 12/06/2021 0 08/11/2022 Pressure injury of sacral region, stage 2 202102/06/2022 Obesity, Class II, BMI 35-39.9 03/27/2021 0 12/06/2021 Obesity, Class I, BMI 30-34.9 11/30/2020 documented as of this encounter (statuses as of 01/07/2023) [facility] History of Past illness Narrative* Problem Noted Date Resolved Date Obesity, Class II, BMI 35-39.9 12/06/2021 0 08/11/2022 Pressure injury of sacral region, stage 2 202102/06/2022 Obesity, Class II, BMI 35-39.9 03/27/2021 0 12/06/2021 Obesity, Class I, BMI 30-34.9 11/30/2020 documented as of this encounter (statuses as of 01/15/2023) [facility] History of Past illness Narrative* Problem Noted Date Resolved Date Obesity, Class II, BMI 35-39.9 12/06/2021 0 08/11/2022 Pressure injury of sacral region, stage 2 202102/06/2022 Obesity, Class II, BMI 35-39.9 03/27/2021 0 12/06/2021 Obesity, Class I, BMI 30-34.9 11/30/2020 documented as of this encounter (statuses as of 01/23/2023) [facility] History of Past illness Narrative* Problem Noted Date Diagnosed Date Resolved Date Obesity, Class II, BMI 35-39.9 12/06/2021 08/11/2022 Pressure injury of sacral region, stage 2 11/29/2021 02/06/2022 Obesity, Class II, BMI 35-39.9 03/27/2021 12/06/2021 Obesity, Class I, BMI 30-34.9 11/30/2020 12/06/2021 documented as of this encounter (statuses as of 02/03/2023) [facility] History of Past illness Narrative* Problem Noted Date Diagnosed Date Resolved Date Obesity, Class II, BMI 35-39.9 12/06/2021 08/11/2022 Pressure injury of sacral region, stage 2 11/29/2021 02/06/2022 Obesity, Class II, BMI 35-39.9 03/27/2021 12/06/2021 Obesity, Class I, BMI 30-34.9 11/30/2020 12/06/2021 documented as of this encounter (statuses as of 02/04/2023) [facility] History of Past illness Narrative* Problem Noted Date Diagnosed Date Resolved Date Obesity, Class II, BMI 35-39.9 12/06/2021 08/11/2022 Pressure injury of sacral region, stage 2 11/29/2021 02/06/2022 Obesity, Class II, BMI 35-39.9 03/27/2021 12/06/2021 Obesity, Class I, BMI 30-34.9 11/30/2020 12/06/2021 documented as of this encounter (statuses as of 02/19/2023) [facility] History of Past illness Narrative* Problem Noted Date Diagnosed Date Resolved Date Obesity, Class II, BMI 35-39.9 12/06/2021 08/11/2022 Pressure injury of sacral region, stage 2 11/29/2021 02/06/2022 Obesity, Class II, BMI 35-39.9 03/27/2021 12/06/2021 Obesity, Class I, BMI 30-34.9 11/30/2020 12/06/2021 documented as of this encounter (statuses as of 02/27/2023) [facility] History of Past illness Narrative* Problem Noted Date Diagnosed Date Resolved Date Obesity, Class II, BMI 35-39.9 12/06/2021 08/11/2022 Pressure injury of sacral region, stage 2 11/29/2021 02/06/2022 Obesity, Class II, BMI 35-39.9 03/27/2021 12/06/2021 Obesity, Class I, BMI 30-34.9 11/30/2020 12/06/2021 documented as of this encounter (statuses as of 03/01/2023) [facility] History of Past illness Narrative* Problem Noted Date Diagnosed Date Resolved Date Obesity, Class II, BMI 35-39.9 12/06/2021 08/11/2022 Pressure injury of sacral region, stage 2 11/29/2021 02/06/2022 Obesity, Class II, BMI 35-39.9 03/27/2021 12/06/2021 Obesity, Class I, BMI 30-34.9 11/30/2020 12/06/2021 documented as of this encounter (statuses as of 03/03/2023) [facility] History of Past illness Narrative* Problem Noted Date Diagnosed Date Resolved Date Obesity, Class II, BMI 35-39.9 12/06/2021 08/11/2022 Pressure injury of sacral region, stage 2 11/29/2021 02/06/2022 Obesity, Class II, BMI 35-39.9 03/27/2021 12/06/2021 Obesity, Class I, BMI 30-34.9 11/30/2020 12/06/2021 documented as of this encounter (statuses as of 03/05/2023) [facility] History of Past illness Narrative* Problem Noted Date Diagnosed Date Resolved Date Obesity, Class II, BMI 35-39.9 12/06/2021 08/11/2022 Pressure injury of sacral region, stage 2 11/29/2021 02/06/2022 Obesity, Class II, BMI 35-39.9 03/27/2021 12/06/2021 Obesity, Class I, BMI 30-34.9 11/30/2020 12/06/2021 documented as of this encounter (statuses as of 04/02/2023) [address]20-2022 History of Past illness Narrative* Problem Noted Date Diagnosed Date Resolved Date Obesity, Class II, BMI 35-39.9 12/06/2021 08/11/2022 Pressure injury of sacral region, stage 2 11/29/2021 02/06/2022 Obesity, Class II, BMI 35-39.9 03/27/2021 12/06/2021 Obesity, Class I, BMI 30-34.9 11/30/2020 12/06/2021 documented as of this encounter (statuses as of 04/22/2023) [facility] History of Past illness Narrative* Problem Noted Date Diagnosed Date Resolved Date Obesity, Class II, BMI 35-39.9 12/06/2021 08/11/2022 Pressure injury of sacral region, stage 2 11/29/2021 02/06/2022 Obesity, Class II, BMI 35-39.9 03/27/2021 12/06/2021 Obesity, Class I, BMI 30-34.9 11/30/2020 12/06/2021 documented as of this encounter (statuses as of 06/11/2023) [facility] History of Past illness Narrative* Problem Noted Date Diagnosed Date Resolved Date Obesity, Class II, BMI 35-39.9 12/06/2021 08/11/2022 Pressure injury of sacral region, stage 2 11/29/2021 02/06/2022 Obesity, Class II, BMI 35-39.9 03/27/2021 12/06/2021 Obesity, Class I, BMI 30-34.9 11/30/2020 12/06/2021 documented as of this encounter (statuses as of 06/18/2023) [facility] History of Past illness Narrative* Problem Noted Date Diagnosed Date Resolved Date Obesity, Class II, BMI 35-39.9 12/06/2021 08/11/2022 Pressure injury of sacral region, stage 2 11/29/2021 02/06/2022 Obesity, Class II, BMI 35-39.9 03/27/2021 12/06/2021 Obesity, Class I, BMI 30-34.9 11/30/2020 12/06/2021 documented as of this encounter (statuses as of 06/19/2023) [facility]19-2022 Miscellaneous Notes* Telephone Encounter - Inocente Nichols MD - 12/05/2021 5:06 PM EDT Noted. * Telephone Encounter - Esther Dean RN - 12/05/2021 3:01 PM EDT Dona @ [facility] calling back to let PCP know patient is receiving HH services from [facility]. Their fax # is [phone]. Attention PACT 7. [facility] will not be providing any further services. If PCP feels patient needs referral to [facility] after OV on 12/06 please send referral directly to [facility]. Esther Dean RN * Telephone Encounter - Zully Goss RN - 12/05/2021 2:34 PM EDT Dona calling from [facility] HH to report plan of care for patient and SN will visit patient 2 times a week for first week, 3 times a week for 1 week, 2 times a week for 2 weeks, and 1 time a week for 1 week. SN will work with patient on disease/medication management and wound care. Dona requesting an order for referral be sent to [facility] for further wound care of sacral pressure ulcer stage 2 and a verbal order for austin wraps to bilateral lower legs for 3+ pitting edema. Patient has appointment tomorrow 12/06 with provider. Call back number is [phone]. Zully Goss RN [facility] Miscellaneous Notes* Telephone Encounter - Елена Choe - 12/04/2021 8:45 AM EDT Spoke with patient and scheduled. Елена Choe * Telephone Encounter - Елена Choe - 11/06/2021 2:18 PM EDT Attempted to call patient to schedule as directed by Dr. Harvey but phone is not in service. Spoke with patient's sister and she will have patient call back. When patient calls back please schedule the following: CT chest on 01/13/22 Then approximately 1 week later (but not on a Thursday): DEPT: [facility] APPT NOTE: 2 MO FOLLOW UP/CT 01/13* APPT TYPE: PROVIDER PHONE CALL PROVIDER: NGHIA HARVEY Please schedule in any open 30 minute appointment time that is not on a Thursday. Once scheduled, document and route to [facility] PSR. Елена Choe [facility] Miscellaneous Notes* Telephone Encounter - Berenice Hoyos RN - 12/04/2021 8:13 AM EDT Pt called in asking about nursing coming in and looking at his wound and doing dressing changes to it. Pt was notified that [facility] was referred and would be reaching out to him. Called Juliann at [facility] and gave providers wound orders. * Telephone Encounter - Inocente Nichols MD - 12/03/2021 5:30 PM EDT Clean with peroxide. Calmoseptine ointment. Duoderm dressing. Change every 7 days. * Telephone Encounter - Natalie Hussein LPN - 12/03/2021 3:24 PM EDT Patient calling asking for home health order, he is very anxious to get home health nurse out to his home. Aware PCP has to give the order before things can get started. * Telephone Encounter - Gaby Canas RN - 12/03/2021 10:21 AM EDT Juliann with [facility] HH calling to state they received a referral from Dr. Nichols's office for Nursing, PT and OT services. She is requesting wound care orders for patient including what dressings to use and frequency of dressing changes. Juliann also reports that [facility] HH are not able to do daily dressing changes and that patient would have to have a caregiver perform the dressing changes if needed. Please fax orders to [phone]. Thank you. documented [facility] Miscellaneous Notes* Telephone Encounter - Yehuda Galvez Ma - 11/30/2021 11:00 AM EDT All information re-faxed along with office note. Yehuda Galvez Ma * Telephone Encounter - Inocente Nichols MD - 11/30/2021 10:17 AM EDT Patient seen yesterday. Order printed. * Telephone Encounter - Natalie Hussein LPN - 11/29/2021 2:29 PM EDT Brazilian from [facility] calling patient needing a lift chair. Asking for order for [employer] phone number [phone] and fax is [phone]. [facility] is requiring Rx and demographics, copy of office visit notes. They will fax a CMN to PCP to complete. Please advise documented [facility] History of Present illness Narrative* Inocente Nichols MD - 11/29/2021 4:52 PM EDT This note was created using Vidcasterriter. Subjective Kelly Damian is a 71 year old male. He fell 05/20/21 and was admitted at [facility] for right hip fracture, COPD exacerbation, hyponatremia, SIADH. He was discharged to [place] where he stayed until September when he left [place] when insurance ran out. He has been essentially wheelchair bound since then. [facility] nurse and [facility] nurse checked on him periodically but no HH, PT, or OT was set up. He has developed bedsores and [facility] started supplying gelfoam dressings. Review of Systems Constitutional: Negative for chills, fever and unexpected weight change. HENT: Negative. Respiratory: Positive for shortness of breath. Negative for cough and wheezing. Cardiovascular: Positive for leg swelling. Negative for chest pain. Gastrointestinal: Negative for abdominal pain, constipation, diarrhea, nausea and vomiting. Genitourinary: Negative for difficulty urinating and dysuria. Musculoskeletal: Positive for gait problem. Skin: Positive for wound. Neurological: Positive for weakness. ACTIVE PROBLEM LIST Bipolar Disorder (Hcc) Copd (Chronic Obstructive Pulmonary Disease) ([facility]) Benign Prostatic Hyperplasia With Urinary Frequency Chronic Hip Pain, Bilateral Chronic Bilateral Low Back Pain Tobacco Use Disorder Lymphedema Coronary Artery Disease Involving [employer] Coronary Artery Obesity, Class I, Bmi 30-34.9 Urinary Incontinence Gastroesophageal Reflux Disease Without Esophagitis Adenocarcinoma of Left Lung (Hcc) History of Colon Polyps Obesity, Class II, Bmi 35-39.9 Spinal Stenosis, Lumbar Region, With Neurogenic Claudication Current Outpatient Medications Medication Sig diclofenac, EC, (VOLTAREN) 75 mg EC tablet TAKE 1 PILL BY MOUTH WITH FOOD UP TO EVERY 12 HOURS NEEDED FOR PAIN bisacodyl (GENTLE LAXATIVE, BISACODYL,) 10 mg supp 10 mg by RECTAL route once daily as needed for constipation. mineral oil (FLEET MINERAL OIL ENEMA) enema 133 mL by RECTAL route one time only. As needed magnesium hydroxide (MILK OF MAGNESIA) 400 mg/5 mL suspension Take by mouth once daily as needed. multivitamin tablet Take 1 tablet by mouth once daily. divalproex ER (DEPAKOTE ER) 500 mg 24 hr tablet Take 1 tablet by mouth daily at bedtime. Take with 250 mg dose. divalproex ER (DEPAKOTE ER) 250 mg 24 hr tablet Take 1 tablet by mouth daily at bedtime. Take with 500 mg dose. OLANZapine (ZYPREXA) 10 mg tablet Take 1 tablet by mouth daily at bedtime. albuterol HFA (PROVENTIL HFA, VENTOLIN HFA) 90 mcg/actuation inhaler Inhale 1-2 Puffs as instructedfour times daily as needed. PULMICORT FLEXHALER 180 mcg/actuation aepb INHALE 2 PUFFS BY MOUTH TWICE DAILY FOR SHORTNESS OF BREATH - RINSE MOUTH AFTER USE cholecalciferol (VITAMIN D3) 1,000 unit tab tablet Take 2,000 Units by mouth once daily. finasteride (PROSCAR) 5 mg tablet Take 5 mg by mouth daily at bedtime. folic acid 1 mg tablet Take by mouth. melatonin 3 mg tablet Take 3 mg by mouth. omeprazole (PRILOSEC) 20 mg capsule TAKE 1 CAPSULE BY MOUTH EVERY DAY FOR GERD tamsulosin (FLOMAX) 0.4 mg TAKE 1 CAPSULE BY MOUTH AT BEDTIME FOR BPH thiamine (VITAMIN B1) 100 mg tablet Take by mouth. No current facility-administered medications for this visit. Objective BP 134/66 (BP Site: Right Arm, BP Position: Sitting, BP Cuff Size: Large Adult) Pulse (!) 48 Temp 36.8 C (98.2 F) Resp 18 Ht 180.3 cm (5' 11 ) SpO2 95% BMI 35.98 kg/m Physical Exam Constitutional: General: He is not in acute distress. Appearance: He is obese. Comments: Wheelchair bound, able to offline editor place. HENT: Head: Normocephalic. Eyes: Conjunctiva/sclera: Conjunctivae normal. Cardiovascular: Rate and Rhythm: Bradycardia present. Heart sounds: No murmur heard. No gallop. Pulmonary: Effort: No respiratory distress. Breath sounds: Wheezing and rhonchi present. Abdominal: Palpations: Abdomen is soft. Tenderness: There is no abdominal tenderness. Musculoskeletal: Right lower le+ Pitting Edema present. Left lower le+ Pitting Edema present. Skin: Comments: Sacral decubiti, stage II. 2 cm linear wound right. Scattered erosions bilaterally. No discharge or cellulitis. Neurological: General: No focal deficit present. Gait: Gait abnormal. Assessment and Plan 1. Pressure injury of sacral region, stage 2 ([facility]) - ICD9: 707.03, 707.22, ICD10: L89.152 (primary diagnosis) - SEAT LIFT MECHANISM COMBL - CONSULT TO NON-[facility] FACILITY. Home health for wound care, SN, PT, OT. 2. Physical debility - ICD9: 799.3, ICD10: R53.81 - SEAT LIFT MECHANISM COMBL - CONSULT TO NON-[facility] FACILITY 3. S/P right hip fracture - ICD9: V15.51, ICD10: Z87.81 - SEAT LIFT MECHANISM COMBL - CONSULT TO NON-[facility] FACILITY 4. Spinal stenosis, lumbar region, with neurogenic claudication - ICD9: 724.03, ICD10: M48.062 - SEAT LIFT MECHANISM COMBL - CONSULT TO NON-[facility] FACILITY 5. Centrilobular emphysema (HCC) - ICD9: 492.8, ICD10: J43.2 Stable. - CONSULT TO NON-[facility] FACILITY Inocente Nichols MD [facility] History of Past illness Narrative* Problem Noted Date Resolved Date Pressure injury of sacral region, stage 2 202102/06/2022 Obesity, Class II, BMI 35-39.9 03/27/2021 0 12/06/2021 Obesity, Class I, BMI 30-34.9 11/30/2020 documented as of this encounter (statuses as of 02/06/2022) [facility] History of Past illness Narrative* Problem Noted Date Resolved Date Pressure injury of sacral region, stage 2 202102/06/2022 Obesity, Class II, BMI 35-39.9 03/27/2021 0 12/06/2021 Obesity, Class I, BMI 30-34.9 11/30/2020 documented as of this encounter (statuses as of 02/27/2022) [facility] of Past illness Narrative* Problem Noted Date Resolved Date Pressure injury of sacral region, stage 2 202102/06/2022 Obesity, Class II, BMI 35-39.9 03/27/2021 0 12/06/2021 Obesity, Class I, BMI 30-34.9 11/30/2020 documented as of this encounter (statuses as of 03/07/2022) [address]13-2022 History of Past illness Narrative* Problem Noted Date Resolved Date Pressure injury of sacral region, stage 2 202102/06/2022 Obesity, Class II, BMI 35-39.9 03/27/2021 0 12/06/2021 Obesity, Class I, BMI 30-34.9 11/30/2020 documented as of this encounter (statuses as of 03/10/2022) [facility] History of Past illness Narrative* Problem Noted Date Resolved Date Pressure injury of sacral region, stage 2 202102/06/2022 Obesity, Class II, BMI 35-39.9 03/27/2021 0 12/06/2021 Obesity, Class I, BMI 30-34.9 11/30/2020 documented as of this encounter (statuses as of 03/19/2022) [facility] of Past illness Narrative* Problem Noted Date Resolved Date Pressure injury of sacral region, stage 2 202102/06/2022 Obesity, Class II, BMI 35-39.9 03/27/2021 0 12/06/2021 Obesity, Class I, BMI 30-34.9 11/30/2020 documented as of this encounter (statuses as of 03/19/2022) [facility] of Past illness Narrative* Problem Noted Date Resolved Date Pressure injury of sacral region, stage 2 202102/06/2022 Obesity, Class II, BMI 35-39.9 03/27/2021 0 12/06/2021 Obesity, Class I, BMI 30-34.9 11/30/2020 documented as of this encounter (statuses as of 03/21/2022) [facility] of Past illness Narrative* Problem Noted Date Resolved Date Pressure injury of sacral region, stage 2 202102/06/2022 Obesity, Class II, BMI 35-39.9 03/27/2021 0 12/06/2021 Obesity, Class I, BMI 30-34.9 11/30/2020 documented as of this encounter (statuses as of 03/27/2022) [facility] of Past illness Narrative* Problem Noted Date Resolved Date Pressure injury of sacral region, stage 2 202102/06/2022 Obesity, Class II, BMI 35-39.9 03/27/2021 0 12/06/2021 Obesity, Class I, BMI 30-34.9 11/30/2020 documented as of this encounter (statuses as of 04/04/2022) [facility] of Past illness Narrative* Problem Noted Date Resolved Date Pressure injury of sacral region, stage 2 202102/06/2022 Obesity, Class II, BMI 35-39.9 03/27/2021 0 12/06/2021 Obesity, Class I, BMI 30-34.9 11/30/2020 documented as of this encounter (statuses as of 04/14/2022) [facility] of Past illness Narrative* Problem Noted Date Resolved Date Pressure injury of sacral region, stage 2 202102/06/2022 Obesity, Class II, BMI 35-39.9 03/27/2021 0 12/06/2021 Obesity, Class I, BMI 30-34.9 11/30/2020 documented as of this encounter (statuses as of 04/28/2022) [facility] of Past illness Narrative* Problem Noted Date Resolved Date Pressure injury of sacral region, stage 2 202102/06/2022 Obesity, Class II, BMI 35-39.9 03/27/2021 0 12/06/2021 Obesity, Class I, BMI 30-34.9 11/30/2020 documented as of this encounter (statuses as of 05/01/2022) [facility] of Past illness Narrative* Problem Noted Date Resolved Date Pressure injury of sacral region, stage 2 202102/06/2022 Obesity, Class II, BMI 35-39.9 03/27/2021 0 12/06/2021 Obesity, Class I, BMI 30-34.9 11/30/2020 documented as of this encounter (statuses as of 05/03/2022) [facility] of Past illness Narrative* Problem Noted Date Resolved Date Pressure injury of sacral region, stage 2 202102/06/2022 Obesity, Class II, BMI 35-39.9 03/27/2021 0 12/06/2021 Obesity, Class I, BMI 30-34.9 11/30/2020 documented as of this encounter (statuses as of 05/09/2022) [facility] of Past illness Narrative* Problem Noted Date Resolved Date Pressure injury of sacral region, stage 2 202102/06/2022 Obesity, Class II, BMI 35-39.9 03/27/2021 0 12/06/2021 Obesity, Class I, BMI 30-34.9 11/30/2020 documented as of this encounter (statuses as of 05/10/2022) [facility] of Past illness Narrative* Problem Noted Date Resolved Date Pressure injury of sacral region, stage 2 202102/06/2022 Obesity, Class II, BMI 35-39.9 03/27/2021 0 12/06/2021 Obesity, Class I, BMI 30-34.9 11/30/2020 documented as of this encounter (statuses as of 05/20/2022) [facility] of Past illness Narrative* Problem Noted Date Resolved Date Pressure injury of sacral region, stage 2 202102/06/2022 Obesity, Class II, BMI 35-39.9 03/27/2021 0 12/06/2021 Obesity, Class I, BMI 30-34.9 11/30/2020 documented as of this encounter (statuses as of 05/30/2022) [address]13-2022 History of Past illness Narrative* Problem Noted Date Resolved Date Pressure injury of sacral region, stage 2 202102/06/2022 Obesity, Class II, BMI 35-39.9 03/27/2021 0 12/06/2021 Obesity, Class I, BMI 30-34.9 11/30/2020 documented as of this encounter (statuses as of 06/03/2022) [facility] of Past illness Narrative* Problem Noted Date Resolved Date Pressure injury of sacral region, stage 2 202102/06/2022 Obesity, Class II, BMI 35-39.9 03/27/2021 0 12/06/2021 Obesity, Class I, BMI 30-34.9 11/30/2020 documented as of this encounter (statuses as of 06/09/2022) [facility] of Past illness Narrative* Problem Noted Date Resolved Date Pressure injury of sacral region, stage 2 202102/06/2022 Obesity, Class II, BMI 35-39.9 03/27/2021 0 12/06/2021 Obesity, Class I, BMI 30-34.9 11/30/2020 documented as of this encounter (statuses as of 07/03/2022) [facility] of Past illness Narrative* Problem Noted Date Resolved Date Pressure injury of sacral region, stage 2 202102/06/2022 Obesity, Class II, BMI 35-39.9 03/27/2021 0 12/06/2021 Obesity, Class I, BMI 30-34.9 11/30/2020 documented as of this encounter (statuses as of 07/13/2022) [address]13-2022 History of Past illness Narrative* Problem Noted Date Resolved Date Pressure injury of sacral region, stage 2 202102/06/2022 Obesity, Class II, BMI 35-39.9 03/27/2021 0 12/06/2021 Obesity, Class I, BMI 30-34.9 11/30/2020 documented as of this encounter (statuses as of 07/23/2022) [facility] of Past illness Narrative* Problem Noted Date Resolved Date Pressure injury of sacral region, stage 2 202102/06/2022 Obesity, Class II, BMI 35-39.9 03/27/2021 0 12/06/2021 Obesity, Class I, BMI 30-34.9 11/30/2020 documented as of this encounter (statuses as of 07/25/2022) [facility] History of Past illness Narrative* Problem Noted Date Resolved Date Pressure injury of sacral region, stage 2 202102/06/2022 Obesity, Class II, BMI 35-39.9 03/27/2021 0 12/06/2021 Obesity, Class I, BMI 30-34.9 11/30/2020 documented as of this encounter (statuses as of 07/31/2022) [facility] of Past illness Narrative* Problem Noted Date Resolved Date Pressure injury of sacral region, stage 2 202102/06/2022 Obesity, Class II, BMI 35-39.9 03/27/2021 0 12/06/2021 Obesity, Class I, BMI 30-34.9 11/30/2020 documented as of this encounter (statuses as of 08/01/2022) [facility] of Past illness Narrative* Problem Noted Date Resolved Date Pressure injury of sacral region, stage 2 202102/06/2022 Obesity, Class II, BMI 35-39.9 03/27/2021 0 12/06/2021 Obesity, Class I, BMI 30-34.9 11/30/2020 documented as of this encounter (statuses as of 08/05/2022) [facility] Miscellaneous Notes* Telephone Encounter - Yehuda Galvez Ma - 11/26/2021 3:06 PM EDT Spoke with Nadege - states that patient used [facility] in the passed with Medicaid. Order and all patient information faxed and patient notified. Yehuda Galvez Ma * Telephone Encounter - Jillian Vasquez RN - 11/20/2021 1:46 PM EDT Nadege- nurse at [facility], reports patient reports he has wounds on buttocks. Patient reported to nurse pcp doctor looked at it at his last appt, and took pictures of it, and prescribed vicodin. Appears last doctor patient saw at [facility] was pain mgmt, and there is a noted comment in [facility] notes. Nadege reports patient needs [facility] nurse for wound care and medication management. Reports the [facility] only sees patient's once a month. Reports patient will need to be seen more often than that for wound care, probably once or twice a week. Asking pcp office to place order and send to [facility] patient. [facility] Miscellaneous Notes* Telephone Encounter - Yehuda Galvez Ma - 11/18/2021 2:37 PM EDT TC to patient's sister Deyanira Left message to call office. 11/18/2021 2:38 PM Not in patient's chart that he see's a hospice massage therapist.Per podi office - Dr. Wang will do nails but it may not be covered by insurance and will have to pay out of pocket. Please ask if they need a referral? * Telephone Encounter - Marisol Corrales LPN - 11/18/2021 2:15 PM EDT Not aware of any services for fingernails. Will ask provider to review. * Telephone Encounter - Mel Jauregui - 11/18/2021 1:52 PM EDT Pts sister wanted to check what can be done for Kelly's fingernails. She wondered who she would see for care of them. They are very thick and growing very long like his toe nails do. documented in this [facility]22 NoteHNO ID: [id number] Author: Evi Diaz MA Service: ? Author Type: Video Intern Type: Progress Notes Filed: 11/14/2021 12:05 PM Note Text: Review of Systems Constitutional: Negative for chills and fever. Genitourinary: Negative for difficulty urinating. Musculoskeletal: Positive for arthralgias, back pain and gait problem. Negative for joint swelling, myalgias, neck pain and neck stiffness. Neurological: Negative for weakness, numbness and headaches. Psychiatric/Behavioral: Negative for dysphoric mood, sleep disturbance and suicidal ideas. The patient is nervous/anxious.[facility] 11-14-2021 History of Present illness Narrative* Evi Diaz MA - 11/14/2021 11:44 AM EDT Review of Systems Constitutional: Negative for chills and fever. Genitourinary: Negative for difficulty urinating. Musculoskeletal: Positive for arthralgias, back pain and gait problem. Negative for joint swelling,myalgias, neck pain and neck stiffness. Neurological: Negative for weakness, numbness and headaches. Psychiatric/Behavioral: Negative for dysphoric mood, sleep disturbance and suicidal ideas. The patient is nervous/anxious. * Juancho Carpenter MD - 11/14/2021 8:35 AM EDT [facility] Name: Kelly Damian : 1950 Purpose: Follow-up Date: 11/14/2021 Last Date 05/16/2021 Interval History: Kelly Damian returns, reporting worsening pain. He fell at home in July, fractured the right hip, had a hip replacement, was in a SNF. [facility] He had nearly 100% relief of pain after the right trochanteric bursal injection on 04/11/2021. Pain returned after the injury. He had lumbar Interlaminar Epidural Steroid Injection on 07/03/2021, reports no relief of pain. Pain remains in his low back. No falls over the past month. Pain worse with standing and walking. Continues taking Mobic 15mg daily Continues taking Baclofen 10mg qHS PRN spasms He reports that the medications are providing very little pain relief. Initial HPI: (Obtained on 03/14/2021) Consult Inocente Nichols. Kelly Damian is a 70 year old year-old male, who presents with the following chief complaint(s): low back pain. Symptoms were first noted several months ago. The onset of symptoms was not sudden and was without associated trauma. Treatments prior to initial presentation include the following: Medications (See below), Modalities (eg. Heat, Ice), Physical Therapy , Home Exercise Program and Activity Modification. He was in a SNF for several months due to frequent falls and weakness, now in assisted living. Current Status: INTAKE PAIN ASSESSMENT 10/02/2021 11/14/2021 Are you having pain associated with your visit today? No Yes, Provider notified Pain Scales - Verbal (Numeric Rating or Visual Analog Scale) Pain Level - 9 Pain Location - Back-Lower Description - Aching;Sharp Duration Units - - Frequency - Continuous Intervention/Comfort measure - - Comments - Nothing at the moment Pain Assessment (RN/PHLEBOTOMY PROGRAM COORDINATOR) - - Pain: Timing: constant Character: Aching Primary location: axial low back Radiation: into the left > right buttock Exacerbated factors: Standing and walking Alleviating factors: Sitting Medication: Current pain medications: o Tylenol OTC 650mg, takes 4 per day o Mobic 15mg daily o Baclofen 10mg qHS PRN spasms Analgesia: Not adequate Function: Weekly Activity Level (0=none; 91=911+ minutes of total activity not including work activity): 08/29 Ambulation and Activities of Daily Living: With a walker or wheelchair Device Independent Exercise(s) or Activities: none 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 All prescriptions have been APPROPRIATELY filled. No suspicious activity was identified. by Juancho Carpenter MD 11/14/2021 Morton 5/325, #28 (05/16/2021) Greenlight from 03/14/2021: [facility] Depression-Revised (CESD-R): 0/60 (<16, no clinical significance; 16+, depressive symptoms) Generalized Anxiety Disorder (DENISE-7): 021 (0-4, minimal anxiety; 5-9, mild anxiety; 10-14, moderate anxiety; 15+, severe anxiety) Opioid Risk Tool (ORT): 0 (0-3, low risk or no risk; 4-7, moderate risk, 8+, high risk) Pain Medications Taken to Date (for the chief complaint(s)): Membrane Stabilizers: none NSAIDS: Mobic (Meloxicam) Opioids: Vicodin or Morton (Hydrocodone) Muscle Relaxants: Lioresal (Baclofen) and Zanaflex (Tizanidine) Topicals: none Other Prescription or OTC Pain Medications: Tylenol (Acetaminophen) Non-Pain Meds of Note: None Allergies: ALLERGIES No Known Allergies Current Medications, Past Medical History, Past Surgical History, Family History, Social History and Review of Systems: On today's date, noted in the attribution, I have confirmed and edited as necessary, the PFSH and ROS obtained by others. Diagnostic Studies: Reviewed Personally on today's date, noted in the attribution MRI Spine Report No resulted procedures found. CT L-spine 07/04/2021 ([facility]): No severe central canal stenosis. DATE PROCEDURE IMPROVEMENT 07/03/2021 ILESI at L5-S1 No relief 04/11/2021 Troch Bursa (Rt) 100% x 3 months Physical Exam: 11/14/21 1145 Pulse: (!) 47 Resp: 17 SpO2: 94% Constitutional:obese Eyes: Conjunctiva clear. No discharge from eyes Cardiovascular: Appears well perfused Lymphatic: No visible regional lymphadenopathy Skin: Two skin breakdowns, 1cm x 0.5cm, over the right buttocks, just medial to the anal region Psychiatric: Full affect, Alert, Pleasant Neuro-Lower: Neural Tension Signs: ? Negative slump in bilateral lower limbs Sensation: ? Grossly intact to light touch in both lower limbs, L2-S1 Dermatomes Muscle Tone: ? Normal and symmetric throughout without clonus Strength: ? Iliopsoas (L2): 4 Left, 4 Right ? Quadriceps (L3) 4 Left, 4 Right ? Anterior Tibialis (L4): 4 Left, 4 Right ? Extensor Hallucis Longus (L5): 4 Left, 4 Right ? Gastrocnemius (S1): 4 Left, 4 Right Musculoskeletal-Lower: Inspection: ? Symmetric without atrophy Palpation: ? There is concordant tenderness in the lumbosacral paraspinals ? There is concordant tenderness over the bilateral PSIS ? Concordant tenderness over the greater trochanter on left ? There are minimal paraspinal spasms Spine Range of Motion: ? 50% decreased, with no pain at end range flexion ? The combination of extension and rotation results in concordant pain Hip Range of Motion: ? Normal external and internal rotation, with minimal pain at end ranges Sacroiliac Maneuvers: ? Deferred Diagnoses: (M47.816) Lumbar spondylosis (primary encounter diagnosis) (M48.062) Spinal stenosis of lumbar region with neurogenic claudication (M70.62) Trochanteric bursitis of left hip Impression: 71 year old male with significant past medical history for Bipolar, on Depakote, who presents with complaint(s) of axial low back pain, facet- mediated, difficulty walking presumably due to neurogenic claudication. Left hip pain due to trochanteric bursitis, presumably developed during recent deconditioning, improved after injection. Despite 3 months of daily PT in a SNF ending in Aug 2020, he had no improvement in his strength and pain levels. He fell in Jul 2021, fractured right hip, now s/p LIVIA, and with bed sores developed during SNF stay. Plan: Kelly Damian would benefit from the following to reach personal goals for decreasing pain, improving function and work participation, and/or improving quality of life: Medication(s): Morton 5/325 #28, taking sparingly, will refill today Mobic 15mg daily - Discontinue Diclofenac 75mg BID - Start Baclofen 10mg qHS PRN spasms - will hold off on refill until I can verify his current medications OK to continue Tylenol OTC Additional Studies: None Referrals: No additional considerations at present Functional Shinto: Physical Therapy (Land-based) - advised home-based care Depending on response to the above-mentioned plan of care, in the future may consider evaluation for: Lumbar Interlaminar Epidural Steroid Injection vs MBB/RFA - can resume after his bedsores heal -Follow-up: 2 months Attribution: In addition to reviewing the information noted above, some elements copied from my most recent clinical note(s), including the physical exam (completed in entirety today), and the impression and plan sections, have been updated where appropriate. All reflect current medical decision making from today's date Juancho Carpenter MD, MBA Pain Management [facility] documented in this encounterK[facility]04[facility]28-2022 NoteHNO ID: [id number] Author: Juancho Carpenter MD Service: ? Author Type: Physician Type: Progress Notes Filed: 11/14/2021 12:05 PM Note Text: [facility] Name: Kelly Damian : 1950 Purpose: Follow-up Date: 11/14/2021 Last Date 05/16/2021 Interval History: Kelly Damian returns, reporting worsening pain. He fell at home in July, fractured the right hip, had a hip replacement, was in a SNF. [facility] He had nearly 100% relief of pain after the right trochanteric bursal injection on 04/11/2021. Pain returned after the injury. He had lumbar Interlaminar Epidural Steroid Injection on 07/03/2021, reports no relief of pain. Pain remains in his low back. No falls over the past month. Pain worse with standing and walking. Continues taking Mobic 15mg daily Continues taking Baclofen 10mg qHS PRN spasms He reports that the medications are providing very little pain relief. Initial HPI: (Obtained on 03/14/2021) Consult Inocente Nichols. Kelly Damian is a 70 year old year-old male, who presents with the following chief complaint(s): low back pain. Symptoms were first noted several months ago. The onset of symptoms was not sudden and was without associated trauma. Treatments prior to initial presentation include the following: Medications (See below), Modalities (eg. Heat, Ice), Physical Therapy , Home Exercise Program and Activity Modification. He was in a SNF for several months due to frequent falls and weakness, now in assisted living. Current Status: INTAKE PAIN ASSESSMENT 10/02/2021 11/14/2021 Are you having pain associated with your visit today? No Yes, Provider notified Pain Scales - Verbal (Numeric Rating or Visual Analog Scale) Pain Level - 9 Pain Location - Back-Lower Description - Aching;Sharp Duration Units - - Frequency - Continuous Intervention/Comfort measure - - Comments - Nothing at the moment Pain Assessment (RN/PHLEBOTOMY PROGRAM COORDINATOR) - - Pain: - Timing: constant - Character: Aching - Primary location: axial low back - Radiation: into the left > right buttock - Exacerbated factors: Standing and walking - Alleviating factors: Sitting Medication: - Current pain medications: o Tylenol OTC 650mg, takes 4 per day o Mobic 15mg daily o Baclofen 10mg qHS PRN spasms - Analgesia: Not adequate Function: - Weekly Activity Level (0=none; 24=683+ minutes of total activity not including work activity): 08/29 - Ambulation and Activities of Daily Living: With a walker or wheelchair Device - Independent Exercise(s) or Activities: none - 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 All prescriptions have been APPROPRIATELY filled. No suspicious activity was identified. by Juancho Carpenter MD 11/14/2021 Sincere 5/325, #28 (05/16/2021) [place] from 03/14/2021: - [facility] Depression-Revised (CESD-R): 0/60 (<16, no clinical significance; 16+, depressive symptoms) - Generalized Anxiety Disorder (DENISE-7): 0/21 (0-4, minimal anxiety; 5-9, mild anxiety; 10-14, moderate anxiety; 15+, severe anxiety) - Opioid Risk Tool (ORT): 0/26 (0-3, low risk or no risk; 4-7, moderate risk, 8+, high risk) Pain Medications Taken to Date (for the chief complaint(s)): Membrane Stabilizers: none NSAIDS: Mobic (Meloxicam) Opioids: Vicodin or Morton (Hydrocodone) Muscle Relaxants: Lioresal (Baclofen) and Zanaflex (Tizanidine) Topicals: none Other Prescription or OTC Pain Medications: Tylenol (Acetaminophen) Non-Pain Meds of Note: None Allergies: ALLERGIES No Known Allergies Current Medications, Past Medical History, Past Surgical History, Family History, Social History and Review of Systems: On today's date, noted in the attribution, I have confirmed and edited as necessary, the PFSH and ROS obtained by others. Diagnostic Studies: Reviewed Personally on today's date, noted in the attribution MRI Spine Report No resulted procedures found. CT L-spine 07/04/2021 ([facility]): No severe central canal stenosis. DATE PROCEDURE IMPROVEMENT 07/03/2021 ILESI at L5-S1 No relief 04/11/2021 Troch Bursa (Rt) 100% x 3 months Physical Exam: 11/14/21 1145 Pulse: (!) 47 Resp: 17 SpO2: 94% Constitutional:obese Eyes: Conjunctiva clear. No discharge from eyes Cardiovascular: Appears well perfused Lymphatic: No visible regional lymphadenopathy Skin: Two skin breakdowns, 1cm x 0.5cm, over the right buttocks, just medial to the anal region Psychiatric: Full affect, Alert, Pleasant Neuro-Lower: Neural Tension Signs: ? Negative slump in bilateral lower limbs Sensation: ? Grossly intact to light touch in both lower limbs, L2-S1 Dermatomes Muscle Tone: ? Normal and symmetric throughout without clonus Strength: ? Iliopsoas (L2): 4 Left, 4 Right ? Quadriceps (more content not included)...[facility] 11-07-2021 Instructions* Patient Instructions* Edvin Cosby APRN.PATTERN CARRIER, DNP - 11/07/2021 7:35 AM EDT Follow up if symptoms worsen with express care or return to the clinic. Chest x-ray today. Clinic to call with results Augmentin x10 days. This is your antibiotic. May continue use of Flonase nasal spray. Continue with inhalers for COPD Self Care instructions: Frequently wash hands and use hand sanitizers Limit touching eyes, nose or mouth Avoid irritants in the air. Avoid chemicals, fumes, and dust. Suck on throat lozenges or hard candy. Use petroleum based jelly around your nostrils to decrease irritation from blowing your nose. NSAIDs (Motrin or Aleve) or acetaminophen help to bring down a fever or decrease pain. Flonase to decrease nasal stuffiness. Antihistamines help decrease sneezing and a runny nose. Cough suppressants help decrease how much you cough. Expectorants help loosen mucus so you can cough it up. Informed to expect progressive improvement over the next 5 days. Seek care at your primary care clinic/urgent care clinic or seek care in the emergency room for the following: Fever over 100.5 but does not reduce with antipyretics, inability to tolerate oral fluids, persistent nausea vomiting and/or diarrhea, shaking chills or rigors, lightheadedness or dizziness, inability to maintain fluid hydration, or any other concerns of worsening condition. Healthy Habits: Recommend regular physical activity, nutrition and healthy eating habits. Consume a variety of foods every day focusing on fruits, vegetables and lean meats). Eat foods low in fat, saturated fat and cholesterol. Eat a limited amount of salt and sodium. Drink adequate amounts of water and limit sugary drinks. Exercise portion control in meal selection. Establish a mindset of a wellness approach to health. Thank you for allowing me to provide your care today. I look forward to seeing you again and maintaining your health. Edvin Cosby DNP.CARROL documented in this encounterKet[facility]04-21-2022 History of Present illness Narrative* Edvin Cosby APRN.MONROE BRANHAM - 11/07/2021 7:03 AM EDT Chief Complaint Patient presents with: Sinus Problem HPI Kelly Damian is a 71 year old male who presents here today for a several month history of cough,chest congestion and sinus congestion. This is an established patient of Dr. Inocente Nichols MD. New patient to me. Approximately 6 weeks ago he was released from [facility] status post right hip replacement and fall. Was seen at the [facility] in [place]. Recently established with Dr. Nichols. Last appt was 03/2021. Clinical stage IIB, non-small cell lung cancer of the left upper lobe (adenocarcinoma) diagnosed with CT guided biopsy on 01/27/20 treated with SBRT at the [facility]. Sister present with patient. In a wheel chair. Difficulty with ambulation. Specialty providers: Pulmonology: Dr. Cayden Chow [facility] Oncology: Dr. Hammer Radiation oncology: Dr. Harvey Psychiatry: Dr. White - [facility] Pain management: Dr. 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 fib, tobacco use disorder, Right hipreplacement - 2020, Obesity Reports: 1 to 2-month history of sinus and chest congestion. Currently undergoing radiation treatment with Dr. Wes Leon [facility]. Diagnosed with lung cancer in 2020. Complains of productive cough which is a little bit worse than what it normally is. Has a 60-year pack smoking historyand continues to smoke cigarettes on a daily basis. Up to 2 packs/day. Complains of sinus congestion and runny nose that is constant. Has a baseline of shortness of breath with his COPD but feels just slightly increased shortness of breath. No chest pain. No nausea. Did vomit 1 time this past week.Not associated with a coughing episode. Cough is intermittent. Not worse at night. Compliant with in halers for his COPD. Denies fever or chills. Using Flonase nasal spray for nasal congestion, mild relief. No use of cough medicine or antihistamines. Past medical history, appointments, medications, allergies reviewed 11/07/2021 Previous Medical History PAST MEDICAL HISTORY Diagnosis Date Benign prostatic hyperplasia with urinary frequency 11/30/2020 Bipolar disorder (HCC) 11/30/2020 Chronic bilateral low back pain 11/30/2020 Chronic hip pain, bilateral 11/30/2020 Closed fracture of right hip with routine healing 05/20/2021 COPD (chronic obstructive pulmonary disease) (HCC) 11/30/2020 Coronary artery disease involving [place] coronary artery 11/30/2020 Esophageal stenosis Essential hypertension Gastroesophageal reflux disease without esophagitis 11/30/2020 History of colon polyps 03/27/2021 Lymphedema 11/30/2020 Mixed hyperlipidemia Other and unspecified hyperlipidemia Paroxysmal A-fib (HCC) Tobacco use disorder 11/30/2020 Previous Surgical History PAST SURGICAL HISTORY Procedure Laterality Date COLONOSCOPY 2006 10-15 [place] ago[place] [facility], polyps [place] 3 removed. RPR 1ST INGUN HRNA AGE 3 YRS/> REDUCIBLE 07/20/2000 Hernia repair, inguinal, right TOTAL HIP REPLACEMENT Right 05/22/2021 [facility] Family History FAMILY HISTORY Problem Relation Age of Onset Arthritis Mother Cancer Mother Cancer Father Patient Allergies ALLERGIES No Known Allergies Current Medications Current Outpatient Medications on File Prior to Visit Medication Sig bisacodyl (GENTLE LAXATIVE, BISACODYL,) 10 mg supp 10 mg by RECTAL route once daily as needed for constipation. mineral oil (FLEET MINERAL OIL ENEMA) enema 133 mL by RECTAL route one time only. As needed magnesium hydroxide (MILK OF MAGNESIA) 400 mg/5 mL suspension Take by mouth once daily as needed. multivitamin tablet Take 1 tablet by mouth once daily. tiZANidine (ZANAFLEX) 4 mg tablet Take 4 mg by mouth every 8 hours as needed. divalproex ER (DEPAKOTE ER) 500 mg 24 hr tablet Take 1 tablet by mouth daily at bedtime. Take with 250 mg dose. divalproex ER (DEPAKOTE ER) 250 mg 24 hr tablet Take 1 tablet by mouth daily at bedtime. Take with 500 mg dose. OLANZapine (ZYPREXA) 10 mg tablet Take 1 tablet by mouth daily at bedtime. albuterol HFA (PROVENTIL HFA, VENTOLIN HFA) 90 mcg/actuation inhaler Inhale 1-2 Puffs as instructedfour times daily as needed. PULMICORT FLEXHALER 180 mcg/actuation aepb INHALE 2 PUFFS BY MOUTH TWICE DAILY FOR SHORTNESS OF BREATH - RINSE MOUTH AFTER USE cholecalciferol (VITAMIN D3) 1,000 unit tab tablet Take 2,000 Units by mouth once daily. docusate sodium (COLACE) 100 mg capsule Take by mouth. (Patient not taking: Reported on 07/31/2021 ) finasteride (PROSCAR) 5 mg tablet Take 5 mg by mouth daily at bedtime. folic acid 1 mg tablet Take by mouth. melatonin 3 mg tablet Take 3 mg by mouth. omeprazole (PRILOSEC) 20 mg capsule TAKE 1 CAPSULE BY MOUTH EVERY DAY FOR GERD tamsulosin (FLOMAX) 0.4 mg TAKE 1 CAPSULE BY MOUTH AT BEDTIME FOR BPH thiamine (VITAMIN B1) 100 mg tablet Take by mouth. No current facility-administered medications on file prior to visit. Social History Social History Tobacco Use Smoking status: Current Every Day Smoker Packs/day: 2.00 Years: 30.00 Pack years: 60.00 Types: Cigarettes Smokeless tobacco: Never Used Tobacco comment: 3-4 cigarettes/day 07/29/21 Vaping Use Vaping Use: Never used Substance Use Topics Alcohol use: Not Currently Drug use: No Review of Symptoms GENERAL: No weight loss. No malaise or fevers HEENT: Negative for frequent headaches No eye discharge or redness No earaches or drainage No sore throat, difficulty swallowing Nose POS for congestion and nasal discharge NECK: Negative for lumps, pain or significant neck swelling RESPIRATORY: Cough;semiproductive. No wheezing. Mild SOB. No Difficulty breathing. CARDIOVASCULAR: Negative for chest pain GI: No diarrhea MUSCULOSKELETAL: Chronic pain SKIN: Negative for rash Neuro: No lightheadedness or dizziness EXAM: BP 128/76 Pulse 61 Temp 36.9 C (98.4 F) Resp 18 Wt 117 kg (258 lb) SpO2 94% BMI 35.98 kg/m General Appearance: Chronically ill appearing. Alert, in no acute distress, well-hydrated, well nourished. Obese Skin: Skin color, texture, turgor normal Head: Normocephalic, no masses, lesions, tenderness Eyes: Anicteric sclera. No redness or drainage. Ears: External ears normal, TM's clear bilaterally, adequate light reflex. TM's not bulging Cerumen present - Min amount Nose/Sinuses: Nares normal, septum midline, Mucosa swollen, erythematous Clear to thick nasal drainage, No sinus tenderness. Oropharynx: Lips, mucosa, and tongue normal, dental caries, gums normal; Oropharynx nonreddened. Neck: Supple Lymph Nodes: No cervical, supraclavicular, pre/post-auricular, or submandibular lymphadenopathy Lungs: Lungs clear to auscultation. No wheezing, rhonchi, rales. Heart: RRR without murmur, gallop, or rubs. Extremities: No deformities, edema, skin discoloration Psych: Attitude - cooperative, easily engaged in conversation Appearance - Poor hygiene and grooming Affect - euthymic, normal mood Mental status: Alert, attentive. Speech is clear and fluent with good repetition, comprehension Coordination: no abnormal or extraneous movements. Gait/Stance: Posture is slouched, Wheelchair bound. Health Maintenance List ABDOMINAL AORTIC ANEURYSM SCREENING Never done LDL CHOLESTEROL Never done SPIROMETRY Never done HEPATITIS C SCREENING Never done LIPID SCREEN Never done DIABETES SCREEN Never done SHINGRIX VACCINE(1 of 2) Never done ADVANCE DIRECTIVE DISCUSSION Never done COLORECTAL CANCER SCREENING due on 03/27/2022 ANNUAL PCP TEAM CHRONIC DISEASE VISIT due on 03/27/2022 DEPRESSION SCREENING due on 03/27/2022 DTAP,TDAP,TD(2 - Td or Tdap) due on 09/24/2023 INFLUENZA Completed PNEUMOVAX AGE 65 AND OVER WITH 5YR LOOKBACK Completed COVID-19 VACCINE Completed MENINGOCOCCAL CONJUGATE Aged Out Data reviewed Last 5 Encounter BP Readings: Date: BP: 11/07/2021 128/76 10/02/2021 160/68 07/29/2021 145/67 05/17/2021 163/75 03/27/2021 138/61 BMI Readings from Last 5 Encounters: 11/07/21 : 35.98 kg/m 07/29/21 : 34.59 kg/m 04/11/21 : 34.59 kg/m 03/27/21 : 35.70 kg/m 03/14/21 : 33.91 kg/m Last 5 Encounter Wt Readings: Date: Wt: 11/07/2021 117 kg (258 lb) 07/29/2021 112.5 kg (248 lb) 04/11/2021 112.5 kg (248 lb) 03/27/2021 111.6 kg (246 lb) 03/14/2021 113.4 kg (250 lb) Medication and allergy list reviewed, reconciled and updated 11/07/2021 ASSESSMENT/PLAN: 1. Sinobronchitis - ICD9: 473.9, 490, ICD10: J32.9, J40 (primary diagnosis) MDM: Sinobronchitis versus COPD. Afebrile and lungs were clear. No wheezing or rhonchi. Pulse ox was 94%. NAD. Nasal congestion noted in exam. Given his hx for COPD and lung cancer I do recommend a chest xray today. Along with the duration of symptoms. Low suspicion for a pneumonia given lack of chills, fever, diff breathing, but will obtain a chest xray today. - Will begin treatment with Augmentin 875 mg PO BID for 10 days - Continue with flonase use - Supportive care with plenty of fluids, rest, and analgesia prn. - Follow up in 5 days if symptoms persist or worsen. - XR CHEST 2V FRONTAL/LAT - AMOXICILLIN 875 MG-POTASSIUM CLAVULANATE 125 MG TABLET Go to ER for worsening symptoms. follow up with PCP if symptoms do not resolve after antibiotics. 2. Obesity, Class I, BMI 30-34.9 - ICD9: 278.00, ICD10: E66.9 Chronic and stable weight Recommend regular physical activity, nutrition and healthy eating habits. Consume a variety of foods every day focusing on fruits, vegetables and lean meats). Eat foods low in fat, saturated fat and cholesterol. Eat a limited amount of salt and sodium. Drink adequate amounts of water and limit sugary drinks. Exercise portion control in meal selection. Establish a mindset of a wellness approach to health. 3. Adenocarcinoma of left lung (HCC) - ICD9: 162.9, ICD10: C34.92 Clinically stable Continue with current medications. Continue follow up with oncology and Rad oncology 4. Centrilobular emphysema (HCC) - ICD9: 492.8, ICD10: J43.2 Clinically stable Continue with current medications. Continue follow up with Pulm - Dr. Rodarte 5. Tobacco use disorder - ICD9: 305.1, ICD10: F17.200 - Cessation encouraged. - Physiologic and physical aspects of tobacco addiction as well as strategies for quitting were discussed. - Counseling was given focusing on the harmful effects of this addiction especially given the patient's medical condition(s) which will be worsened because of the chemicals in tobacco. - Counseling was given 3-4 minutes. 6. Bipolar disorder, in full remission, most recent episode mixed (HCC) - ICD9: 296.66, ICD10: F31.78 Clinically stable Continue with current medications. Continue follow [facility] with [facility] Edvin Cosby APRN.PATTERN CARRIER, DNP This note was completed with [employer] dictation software. Note was reviewed for accuracy. There may be minor misspellings or grammar miscues with [employer] Dictation. I spent a total of 38 minutes on the date of the service which included preparing to see the patient, [id number] patient care, completing clinical documentation, performing a medically appropriate examination, counseling and educating the patient/family/caregiver and ordering medications, tests, or procedures. [place] [phone] documented in this encounterKettering [facility]04-20-2022 Miscellaneous Notes* Telephone Encounter - Isela Harmon RN - 11/06/2021 1:10 PM EDT I was able to reach pt and transferred call to Dr Harvey. * Telephone Encounter - Nghia Harvey MD, MD - 11/06/2021 1:02 PM EDT I tried to call him multiple times. His cell phone is not in service and his home phone number gives busy signals. Can you please ask him to call us? Thanks. * Telephone Encounter - Mel Jauregui - 11/06/2021 11:17 AM EDT Pt called wondering if Dr. Harvey was still going to call him today. He would still like to talk to him. documented in this encounterKettering Health [facility]04-20-2022 History of Present illness Narrative* Nghia Harvey MD, MD - 11/06/2021 1:09 PM EDT AMBULATORY TELEPHONE VISIT Kelly Damian has consented to this telephone encounter. Persons Present: patient Chief Complaint/Reason: Four week follow-up after radiation treatment. 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 He is doing well without any specific new complaints. He denies any chest pain or any cough/shorntess of breath worsening from his baseline. Data Reviewed: None. Assessment: Clinically stable. He didn't have any significant acute complications. Plan: I will get a follow-up CT chest in two months. Total Time Spent: 5 minutes Nghia Harvey MD documented in this encounterKettering Health Troy03-23-2022 Nurse Note* Isela Harmon RN - 10/09/2021 11:22 AM EDT AMBULATORY PATIENT EDUCATION NOTE TOPIC: SURVIVAL SKILLS: Symptom Management READINESS TO LEARN COGNITIVE ABILITY: Alert and oriented MOTIVATION TO LEARN: Interested FAMILY SUPPORT: Unable to assess - Family not present INSTRUCTION PROVIDED TO: Patient PATIENT LEARNS BEST BY: Multiple Methods FACTORS AFFECTING LEARNING: None PHYSICAL LIMITATIONS AFFECTING LEARNING: None LEARNING RESPONSE DIAGNOSIS: C34.31 METHOD OF INSTRUCTION: Teach Back skin care Individual instruction Written instruction - handouts Verbal instruction PATIENT / FAMILY RESPONSE: Verbalizes understanding of: SYMPTOM MANAGEMENT- Correct actions to take to manage symptoms associated with his/her disease/illness FOLLOW-UP PLAN: Patient instructed to call with any further issues Reinforce - Repeat previous content Contact information given. SUPPLEMENTAL MATERIAL: D/C sheet REFERRAL (RECOMMENDATION): None Written discharge instructions given and reviewed with patient. Patient verbalizes understanding. Encouraged to call with any questions or concerns. Instruction for 4 week phone follow up appointmentgiven by Dr. Harvey. Electronically Signed By: Isela Harmon RN In Department: RADIATION ONCOLOGY Time spent on patient education: 05 minutes. documented in this encounterKettering Health Troy12-29-2021 NoteHNO ID: [id number] Author: Rochelle Elliott Service: ? Author Type: ? Type: Progress Notes Filed: 07/17/2021 9:32 AM Note Text: Attempted to contact patient on home phone and I received a busy tone. Unable to leave a voicemail on patients cellphone. Rochellepreet ElliottNorthern Light [facility]12-29-2021 NoteHNO ID: [id number] Author: Criselda Irizarry APRN.[facility] Service: ? Author Type: Nurse Practitioner Type: Progress Notes Filed: 07/17/2021 9:12 AM Note Text: Attempted to leave message, mailbox was full, reschedule Criselda Irizarry APRN.[facility]10-28-2021 NoteHNO ID: [id number] Author: Summer Ruff Service: ? Author Type: ? Type: Progress Notes Filed: 05/16/2021 3:54 PM Note Text: Review of Systems Constitutional: Negative for activity change, chills, fever and unexpected weight change. Gastrointestinal: Negative for bowel retention or incontinence Genitourinary: Negative for difficulty urinating. Negative for bladder retention or incontinence Musculoskeletal: Positive for back pain and gait problem. Negative for arthralgias, joint swelling, myalgias, neck pain and neck stiffness. Neurological: Negative for weakness, numbness and headaches. Psychiatric/Behavioral: Positive for sleep disturbance. Negative for dysphoric mood and suicidal ideas. The patient is not nervous/anxious.[facility]10-28-2021 NoteHNO ID: [id number] Author: Juancho Carpenter MD Service: ? Author Type: Physician Type: Progress Notes Filed: 05/16/2021 3:54 PM Note Text: [facility] Name: Kelly Damian : 1950 Purpose: Follow-up Date: 05/16/2021 Last Date 03/14/2021 Interval History: Kelly Damian returns, reporting nearly 100% relief of pain since the right trochanteric bursal injection on 04/11/2021. Pain remains in his low back. No falls over the past month. Pain worse with standing and walking. Continues taking Mobic 15mg daily Switched from Zanaflex to Baclofen 10mg qHS PRN spasms, notes this has been stronger. MRI Lumbar spine was ordered, patient did not obtain and does not recall it being ordered. Initial HPI: (Obtained on 03/14/2021) Consult Inocente Nichols. Kelly Damian is a 70 year old year-old male, who presents with the following chief complaint(s): low back pain. Symptoms were first noted several months ago. The onset of symptoms was not sudden and was without associated trauma. Treatments prior to initial presentation include the following: Medications (See below), Modalities (eg. Heat, Ice), Physical Therapy , Home Exercise Program and Activity Modification. He was in a SNF for several months due to frequent falls and weakness, now in assisted living. Current Status: INTAKE PAIN ASSESSMENT 04/11/2021 05/16/2021 Are you having pain associated with your visit today? Yes, Provider notified Yes, Provider notified Pain Scales Verbal (Numeric Rating or Visual Analog Scale) Verbal (Numeric Rating or Visual Analog Scale) Pain Level 8 8 Pain Location (No Data) (No Data) Description Aching Aching Duration Units Years Years Frequency Continuous Continuous Intervention/Comfort measure - Medication Comments nothing - Pain: - Timing: constant - Character: Aching - Primary location: axial low back - Radiation: into the left > right buttock - Exacerbated factors: Standing and walking - Alleviating factors: Sitting Medication: - Current pain medications: o Tylenol OTC 650mg, takes 4 per day o Mobic 15mg daily o Baclofen 10mg qHS PRN spasms - Analgesia: Not adequate Function: - Weekly Activity Level (0=none; 76=570+ minutes of total activity not including work activity): 08/29 - Ambulation and Activities of Daily Living: With a walker or wheelchair Device - Independent Exercise(s) or Activities: none - 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 All prescriptions have been APPROPRIATELY filled. No suspicious activity was identified. by Juancho Carpenter MD 05/16/2021 [place] from 03/14/2021: - [facility] Depression-Revised (CESD-R): 0/60 (<16, no clinical significance; 16+, depressive symptoms) - Generalized Anxiety Disorder (DENISE-7): 0/21 (0-4, minimal anxiety; 5-9, mild anxiety; 10-14, moderate anxiety; 15+, severe anxiety) - Opioid Risk Tool (ORT): 0/26 (0-3, low risk or no risk; 4-7, moderate risk, 8+, high risk) Pain Medications Taken to Date (for the chief complaint(s)): Membrane Stabilizers: none NSAIDS: Mobic (Meloxicam) Opioids: Vicodin or Morton (Hydrocodone) Muscle Relaxants: Lioresal (Baclofen) and Zanaflex (Tizanidine) Topicals: none Other Prescription or OTC Pain Medications: Tylenol (Acetaminophen) Non-Pain Meds of Note: None Allergies: ALLERGIES No Known Allergies Current Medications, Past Medical History, Past Surgical History, Family History, Social History and Review of Systems: On today's date, noted in the attribution, I have confirmed and edited as necessary, the PFSH and ROS obtained by others. Diagnostic Studies: Reviewed Personally on today's date, noted in the attribution MRI Spine Report No resulted procedures found. None DATE PROCEDURE IMPROVEMENT 04/11/2021 Troch Bursa (Rt) 100% (05/16/2021) Physical Exam: 05/16/21 1529 Pulse: (!) 48 Resp: 18 SpO2: 95% Constitutional:obese Eyes: Conjunctiva clear. No discharge from eyes Cardiovascular: Appears well perfused Lymphatic: No visible regional lymphadenopathy Skin: No visible rashes or ecchymosis Psychiatric: Full affect, Alert, Pleasant (From 02/2021) Neuro-Lower: Neural Tension Signs: ? Negative slump in bilateral lower limbs Sensation: ? Grossly intact to light touch in both lower limbs, L2-S1 Dermatomes Muscle Tone: ? Normal and symmetric throughout without clonus Strength: ? Iliopsoas (L2): 4 Left, 4 Right ? Quadriceps (L3) 4 Left, 4 Right ? Anterior Tibialis (L4): 4 Left, 4 Right ? Extensor Hallucis Longus (L5): 4 Left, 4 Right ? Gastrocnemius (S1): 4 Left, 4 Right Musculoskeletal-Lower: Inspection: ? Symmetric without atrophy Palpation: ? There is concordant tenderness in the lumbosacral paraspinals ? There is concordant tenderness over (more content not included)...[facility]09-23-2021 NoteProcedure (CMGWO) RICKIEKELLY ([id number]) 1950 M Date Time Provider Department 04/11/21 1:15 PM JUANCHO CARPENTER III During your visit today, we recorded the following information about you: Weight Height 112.5 kg 1.803 m Juancho Carpenter MD 04/11/2021 1:33 PM Signed [facility] [place] [facility] Patient name: Kelly Damian Date of : 1950 Today's Date: 04/11/2021 Physician performing procedure: Juancho Carpenter MD, JUAN Procedure: Left greater trochanteric bursal injection Injectate: A total of 5cc, consisting of 1cc of Depo-medrol (40mg/cc), the remainder consisting of 1% Lidocaine Improvement after today's procedure: as per nursing report Diagnosis (Indication for procedure): (M70.62) Trochanteric bursitis of left hip (primary encounter diagnosis) Comments: none HPI: Kelly Damian is an 70 year old MALE who presents today, in pain, for the procedure noted above. ? Data Reviewed: ? Current Medications, Past Medical History, Past Surgical History, Family History, Social History and Review of Systems: On Today's date, noted in the attribution, I have confirmed and edited as necessary, the PFSH and ROS obtained by others. ? Nursing note and vitals reviewed. Additional imaging reviewed as appropriate ? Review of Systems: ? Pertinent Positives: pain in the region being treated ? Neuro: no weakness or numbness in the region being treated ? Skin: Negative (No itching) ? Eyes: Negative (No blurred or double vision) ? Respiratory: Negative (No Cough, [id number]-[id number], Dyspnea on exertion, wheezing) ? Cardiovascular: Negative (No Chest Pain, Tightness, Pressure, Palpitations) ? Gastrointestinal: Negative (No Abdominal pain, Nausea, Vomiting, Constipation, Diarrhea) ? Genitourinary: Negative (No dysuria) ? Hematologic: Negative (No bleeding, bruising) ? OB: is Denied or Not Applicable ? Endocrine: Negative (No hot/cold intolerance) ? Psychiatric: Negative (No depression, anxiety or suicidal ideation) PAST MEDICAL HISTORY Diagnosis Date - Benign prostatic hyperplasia with urinary frequency 11/30/2020 - Bipolar disorder ([facility]) 11/30/2020 - Chronic bilateral low back pain 11/30/2020 - Chronic hip pain, bilateral 11/30/2020 - COPD (chronic obstructive pulmonary disease) ([facility]) 11/30/2020 - Coronary artery disease involving [place] coronary artery 11/30/2020 - Esophageal stenosis - Essential hypertension - Gastroesophageal reflux disease without esophagitis 11/30/2020 - History of colon polyps 03/27/2021 - Lymphedema 11/30/2020 - Mixed hyperlipidemia - Other and unspecified hyperlipidemia - Paroxysmal A-fib ([facility]) - Tobacco use disorder 11/30/2020 ? PAST SURGICAL HISTORY Procedure Laterality Date - [place] 2006 10-[place] 3 [place]. - REPAIR ING HERNIA,5+Y/O,REDUCIBL 07/20/2000 Hernia repair, inguinal, right ? FAMILY HISTORY Problem Relation Age of Onset - Arthritis Mother - Cancer Mother ? Social History Tobacco Use - Smoking status: Current Every Day Smoker Packs/day: 2.00 Years: 30.00 Pack years: 60.00 Types: Cigarettes - Smokeless tobacco: Never Used Vaping Use - Vaping Use: Never used Substance Use Topics - Alcohol use: Not Currently - Drug use: No ? Current Outpatient Medications on File Prior to Visit Medication Sig - meloxicam (MOBIC) 15 mg tablet Take 1 tablet by mouth once daily as needed for pain (with food). - baclofen (LIORESAL) 10 mg tablet TAKE 1 PILL AT BEDTIME NEEDED FOR PAINFUL MUSCLE SPASMS, 90 day supply - divalproex ER (DEPAKOTE ER) 500 mg 24 hr tablet Take 1 tablet by mouth daily at bedtime. Take with 250 mg dose. - divalproex ER (DEPAKOTE ER) 250 mg 24 hr tablet Take 1 tablet by mouth daily at bedtime. Take with 500 mg dose. - OLANZapine (ZYPREXA) 10 mg tablet Take 1 tablet by mouth daily at bedtime. - hydrOXYzine HCl (ATARAX) 25 mg tablet Take 1 tablet by mouth at bedtime as needed. - albuterol HFA (PROVENTIL HFA, VENTOLIN HFA) 90 mcg/actuation inhaler Inhale 1-2 Puffs as instructed four times daily as needed. - PULMICORT FLEXHALER 180 mcg/actuation aepb INHALE 2 PUFFS BY MOUTH TWICE DAILY FOR SHORTNESS OF BREATH - RINSE MOUTH AFTER USE - cholecalciferol (VITAMIN D3) 1,000 unit tab tablet Take 2,000 Units by mouth once daily. - docusate sodium (COLACE) 100 mg capsule Take by mouth. - finasteride (PROSCAR) 5 mg tablet Take 5 mg by mouth daily at bedtime. - folic acid 1 mg tablet Take by mouth. - melatonin 3 mg tablet Take 3 mg by mouth. - omeprazole (PRILOSEC) 20 mg capsule TAKE 1 CAPSULE BY MOUTH EVERY DAY FOR GERD - tamsulosin (FLOMAX) 0.4 mg TAKE 1 CAPSULE BY MOUTH AT BEDTIME FOR BPH - thiamine (VITAMIN B1) 100 mg tablet Take by mouth. No current facility-administered medications on file prior to vi (more content not included)...[facility]09-23-2021 NoteHNO ID: [id number] Author: Elva Dee LPN Service: ? Author Type: LICENSED NURSE Type: Progress Notes Filed: 04/11/2021 1:33 PM Note Text: Subjective HPI Review of Systems Eyes: Negative for blurred vision and double vision. Respiratory: Negative for shortness of breath. Cardiovascular: Negative for chest pain and leg swelling. Gastrointestinal: Negative for constipation, diarrhea, nausea and vomiting. Genitourinary: Negative for dysuria. Skin: Negative for itching. Neurological: Negative for dizziness, tingling, weakness and headaches. Endo/Heme/Allergies: Does not bruise/bleed easily. Psychiatric/Behavioral: Negative for depression and suicidal ideas. The patient is not nervous/anxious. PAST MEDICAL HISTORY Diagnosis Date - Benign prostatic hyperplasia with urinary frequency 11/30/2020 - Bipolar disorder ([facility]) 11/30/2020 - Chronic bilateral low back pain 11/30/2020 - Chronic hip pain, bilateral 11/30/2020 - COPD (chronic obstructive pulmonary disease) ([facility]) 11/30/2020 - Coronary artery disease involving [place] coronary artery 11/30/2020 - Esophageal stenosis - Essential hypertension - Gastroesophageal reflux disease without esophagitis 11/30/2020 - History of colon polyps 03/27/2021 - Lymphedema 11/30/2020 - Mixed hyperlipidemia - Other and unspecified hyperlipidemia - Paroxysmal A-fib ([facility]) - Tobacco use disorder 11/30/2020 PAST SURGICAL HISTORY Procedure Laterality Date - COLONOSCOPY 2005 10-15 [place] ago, [place], polyps x 3 removed. - REPAIR ING HERNIA,5+Y/O,REDUCIBL 07/20/2000 Hernia repair, inguinal, right FAMILY HISTORY Problem Relation Age of Onset - Arthritis Mother - Cancer Mother Social History Tobacco Use - Smoking status: Current Every Day Smoker Packs/day: 2.00 Years: 30.00 Pack years: 60.00 Types: Cigarettes - Smokeless tobacco: Never Used Vaping Use - Vaping Use: Never used Substance Use Topics - Alcohol use: Not Currently - Drug use: No Current Meds meloxicam (MOBIC) 15 mg tablet Take 1 tablet by mouth once daily as needed for pain (with food). baclofen (LIORESAL) 10 mg tablet TAKE 1 PILL AT BEDTIME NEEDED FOR PAINFUL MUSCLE SPASMS, 90 day supply divalproex ER (DEPAKOTE ER) 500 mg 24 hr tablet Take 1 tablet by mouth daily at bedtime. Take with 250 mg dose. divalproex ER (DEPAKOTE ER) 250 mg 24 hr tablet Take 1 tablet by mouth daily at bedtime. Take with 500 mg dose. OLANZapine (ZYPREXA) 10 mg tablet Take 1 tablet by mouth daily at bedtime. hydrOXYzine HCl (ATARAX) 25 mg tablet Take 1 tablet by mouth at bedtime as needed. albuterol HFA (PROVENTIL HFA, VENTOLIN HFA) 90 mcg/actuation inhaler Inhale 1-2 Puffs as instructed four times daily as needed. PULMICORT FLEXHALER 180 mcg/actuation aepb INHALE 2 PUFFS BY MOUTH TWICE DAILY FOR SHORTNESS OF BREATH - RINSE MOUTH AFTER USE cholecalciferol (VITAMIN D3) 1,000 unit tab tablet Take 2,000 Units by mouth once daily. docusate sodium (COLACE) 100 mg capsule Take by mouth. finasteride (PROSCAR) 5 mg tablet Take 5 mg by mouth daily at bedtime. folic acid 1 mg tablet Take by mouth. melatonin 3 mg tablet Take 3 mg by mouth. omeprazole (PRILOSEC) 20 mg capsule TAKE 1 CAPSULE BY MOUTH EVERY DAY FOR GERD tamsulosin (FLOMAX) 0.4 mg TAKE 1 CAPSULE BY MOUTH AT BEDTIME FOR BPH thiamine (VITAMIN B1) 100 mg tablet Take by mouth. Objective Ht 180.3 cm (5' 11 ) Wt 112.5 kg (248 lb) BMI 34.59 kg/m? [facility] NoteHNO ID: [id number] Author: Juancho Carpenter III, MD Service: ? Author Type: Physician Type: Progress Notes Filed: 04/11/2021 1:33 PM Note Text: [facility] [place] [facility] Patient name: Kelly Damian Date of : 1950 Today's Date: 04/11/2021 Physician performing procedure: Juancho Carpenter MD, JAUN Procedure: Left greater trochanteric bursal injection Injectate: A total of 5cc, consisting of 1cc of Depo-medrol (40mg/cc), the remainder consisting of 1% Lidocaine Improvement after today's procedure: as per nursing report Diagnosis (Indication for procedure): (M70.62) Trochanteric bursitis of left hip (primary encounter diagnosis) Comments: none HPI: Kelly Damian is an 70 year old MALE who presents today, in pain, for the procedure noted above. ? Data Reviewed: ? Current Medications, Past Medical History, Past Surgical History, Family History, Social History and Review of Systems: On Today's date, noted in the attribution, I have confirmed and edited as necessary, the PFSH and ROS obtained by others. ? Nursing note and vitals reviewed. Additional imaging reviewed as appropriate ? Review of Systems: ? Pertinent Positives: pain in the region being treated ? Neuro: no weakness or numbness in the region being treated ? Skin: Negative (No itching) ? Eyes: Negative (No blurred or double vision) ? Respiratory: Negative (No Cough, [id number], Dyspnea on exertion, wheezing) ? Cardiovascular: Negative (No Chest Pain, Tightness, Pressure, Palpitations) ? Gastrointestinal: Negative (No Abdominal pain, Nausea, Vomiting, Constipation, Diarrhea) ? Genitourinary: Negative (No dysuria) ? Hematologic: Negative (No bleeding, bruising) ? OB: is Denied or Not Applicable ? Endocrine: Negative (No hot/cold intolerance) ? Psychiatric: Negative (No depression, anxiety or suicidal ideation) PAST MEDICAL HISTORY Diagnosis Date - Benign prostatic hyperplasia with urinary frequency 11/30/2020 - Bipolar disorder ([facility]) 11/30/2020 - Chronic bilateral low back pain 11/30/2020 - Chronic hip pain, bilateral 11/30/2020 - COPD (chronic obstructive pulmonary disease) ([facility]) 11/30/2020 - Coronary artery disease involving [place] coronary artery 11/30/2020 - Esophageal stenosis - Essential hypertension - Gastroesophageal reflux disease without esophagitis 11/30/2020 - History of colon polyps 03/27/2021 - Lymphedema 11/30/2020 - Mixed hyperlipidemia - Other and unspecified hyperlipidemia - Paroxysmal A-fib ([facility]) - Tobacco use disorder 11/30/2020 ? PAST SURGICAL HISTORY Procedure Laterality Date - [place] 2005 [place] 3 [place]. - REPAIR ING HERNIA,5+Y/O,REDUCIBL 07/20/2000 Hernia repair, inguinal, right ? FAMILY HISTORY Problem Relation Age of Onset - Arthritis Mother - Cancer Mother ? Social History Tobacco Use - Smoking status: Current Every Day Smoker Packs/day: 2.00 Years: 30.00 Pack years: 60.00 Types: Cigarettes - Smokeless tobacco: Never Used Vaping Use - Vaping Use: Never used Substance Use Topics - Alcohol use: Not Currently - Drug use: No ? Current Outpatient Medications on File Prior to Visit Medication Sig - meloxicam (MOBIC) 15 mg tablet Take 1 tablet by mouth once daily as needed for pain (with food). - baclofen (LIORESAL) 10 mg tablet TAKE 1 PILL AT BEDTIME NEEDED FOR PAINFUL MUSCLE SPASMS, 90 day supply - divalproex ER (DEPAKOTE ER) 500 mg 24 hr tablet Take 1 tablet by mouth daily at bedtime. Take with 250 mg dose. - divalproex ER (DEPAKOTE ER) 250 mg 24 hr tablet Take 1 tablet by mouth daily at bedtime. Take with 500 mg dose. - OLANZapine (ZYPREXA) 10 mg tablet Take 1 tablet by mouth daily at bedtime. - hydrOXYzine HCl (ATARAX) 25 mg tablet Take 1 tablet by mouth at bedtime as needed. - albuterol HFA (PROVENTIL HFA, VENTOLIN HFA) 90 mcg/actuation inhaler Inhale 1-2 Puffs as instructed four times daily as needed. - PULMICORT FLEXHALER 180 mcg/actuation aepb INHALE 2 PUFFS BY MOUTH TWICE DAILY FOR SHORTNESS OF BREATH - RINSE MOUTH AFTER USE - cholecalciferol (VITAMIN D3) 1,000 unit tab tablet Take 2,000 Units by mouth once daily. - docusate sodium (COLACE) 100 mg capsule Take by mouth. - finasteride (PROSCAR) 5 mg tablet Take 5 mg by mouth daily at bedtime. - folic acid 1 mg tablet Take by mouth. - melatonin 3 mg tablet Take 3 mg by mouth. - omeprazole (PRILOSEC) 20 mg capsule TAKE 1 CAPSULE BY MOUTH EVERY DAY FOR GERD - tamsulosin (FLOMAX) 0.4 mg TAKE 1 CAPSULE BY MOUTH AT BEDTIME FOR BPH - thiamine (VITAMIN B1) 100 mg tablet Take by mouth. No current facility-administered medications on file prior to visit. ? ? ALLERGIES ? No Known Allergies ? Objective Exam: ? Vitals: As per nursing documentation ? Constitutional: Normal Appearance, Oriented to Time, Place and Person ? Head: No lacerations, no travel attendants (more content not included)...[facility]09-20-2021 NoteProcedure (AGSPHWG) KELLY DAMIAN ([id number]) 1950 M Date Time Provider Department 04/08/21 JUANCHO CARPENTER III AGSPHWG During your visit today, we recorded the following information about you: Allergies As of Date: 04/08/2021 (No Known Allergies) Date Reviewed: 03/27/2021 Reviewed by: Ceci Santamaria LPN - Fully Assessed Primary Visit Diagnosis:Lumbar spondylosis [M47.816] Prescriptions as of 04/09/2021 - meloxicam (MOBIC) 15 mg tablet Take 1 tablet by mouth once daily as needed for pain (with food). - baclofen (LIORESAL) 10 mg tablet TAKE 1 PILL AT BEDTIME NEEDED FOR PAINFUL MUSCLE SPASMS, 90 day supply - divalproex ER (DEPAKOTE ER) 500 mg 24 hr tablet Take 1 tablet by mouth daily at bedtime. Take with 250 mg dose. - divalproex ER (DEPAKOTE ER) 250 mg 24 hr tablet Take 1 tablet by mouth daily at bedtime. Take with 500 mg dose. - OLANZapine (ZYPREXA) 10 mg tablet Take 1 tablet by mouth daily at bedtime. - hydrOXYzine HCl (ATARAX) 25 mg tablet Take 1 tablet by mouth at bedtime as needed. - albuterol HFA (PROVENTIL HFA, VENTOLIN HFA) 90 mcg/actuation inhaler Inhale 1-2 Puffs as instructed four times daily as needed. - PULMICORT FLEXHALER 180 mcg/actuation aepb INHALE 2 PUFFS BY MOUTH TWICE DAILY FOR SHORTNESS OF BREATH - RINSE MOUTH AFTER USE - cholecalciferol (VITAMIN D3) 1,000 unit tab tablet Take 2,000 Units by mouth once daily. - docusate sodium (COLACE) 100 mg capsule Take by mouth. - finasteride (PROSCAR) 5 mg tablet Take 5 mg by mouth daily at bedtime. - folic acid 1 mg tablet Take by mouth. - melatonin 3 mg tablet Take 3 mg by mouth. - omeprazole (PRILOSEC) 20 mg capsule TAKE 1 CAPSULE BY MOUTH EVERY DAY FOR GERD - tamsulosin (FLOMAX) 0.4 mg TAKE 1 CAPSULE BY MOUTH AT BEDTIME FOR BPH - thiamine (VITAMIN B1) 100 mg tablet Take by mouth. Problem List As Of Date 04/08/2021 Noted Resolved Bipolar disorder (HCC) [F31.9] 11/30/2020 COPD (chronic obstructive pulmonary disease) (H*11/30/2020 Benign prostatic hyperplasia with urinary frequ*11/30/2020 Chronic hip pain, bilateral [M25.551, M25.552, *11/30/2020 Chronic bilateral low back pain [M54.5, G89.29] 11/30/2020 Tobacco use disorder [F17.200] 11/30/2020 Lymphedema [I89.0] 11/30/2020 Coronary artery disease involving [place] finch*11/30/2020 Obesity, Class I, BMI 30.0-34.9 (see actual BMI*11/30/2020 Urinary incontinence [R32] 11/30/2020 Gastroesophageal reflux disease without esophag*11/30/2020 Adenocarcinoma of left lung (HCC) [C34.92] 01/23/2021 History of colon polyps [Z86.010] 03/27/2021 Obesity, Class II, BMI 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.9 [E66.9] 03/27/2021 Encounter Status:Closed by JUANCHO CARPENTER III on 04/09/21[facility] History of Past illness Narrative* Problem Noted Date Resolved Date Obesity, Class II, BMI 35-39.9 03/27/2021 0 12/06/2021 Obesity, Class I, BMI 30-34.9 11/30/2020 documented as of this encounter (statuses as of 12/06/2021) [address]08-2021 History of Past illness Narrative* Problem Noted Date Resolved Date Obesity, Class II, BMI 35-39.9 03/27/2021 0 12/06/2021 Obesity, Class I, BMI 30-34.9 11/30/2020 documented as of this encounter (statuses as of 12/07/2021) [address]08-2021 History of Past illness Narrative* Problem Noted Date Resolved Date Obesity, Class II, BMI 35-39.9 03/27/2021 0 12/06/2021 Obesity, Class I, BMI 30-34.9 11/30/2020 documented as of this encounter (statuses as of 12/09/2021) [address]08-2021 History of Past illness Narrative* Problem Noted Date Resolved Date Obesity, Class II, BMI 35-39.9 03/27/2021 0 12/06/2021 Obesity, Class I, BMI 30-34.9 11/30/2020 documented as of this encounter (statuses as of 12/12/2021) [address]08-2021 History of Past illness Narrative* Problem Noted Date Resolved Date Obesity, Class II, BMI 35-39.9 03/27/2021 0 12/06/2021 Obesity, Class I, BMI 30-34.9 11/30/2020 documented as of this encounter (statuses as of 12/13/2021) [address]08-2021 History of Past illness Narrative* Problem Noted Date Resolved Date Obesity, Class II, BMI 35-39.9 03/27/2021 0 12/06/2021 Obesity, Class I, BMI 30-34.9 11/30/2020 documented as of this encounter (statuses as of 01/09/2022) [address]08-2021 History of Past illness Narrative* Problem Noted Date Resolved Date Obesity, Class II, BMI 35-39.9 03/27/2021 0 12/06/2021 Obesity, Class I, BMI 30-34.9 11/30/2020 documented as of this encounter (statuses as of 01/15/2022) [facility]09-08-2021 History of Past illness Narrative* Problem Noted Date Resolved Date Obesity, Class II, BMI 35-39.9 03/27/2021 0 12/06/2021 Obesity, Class I, BMI 30-34.9 11/30/2020 documented as of this encounter (statuses as of 01/17/2022) [facility]09-08-2021 History of Past illness Narrative* Problem Noted Date Resolved Date Obesity, Class II, BMI 35-39.9 03/27/2021 0 12/06/2021 Obesity, Class I, BMI 30-34.9 11/30/2020 documented as of this encounter (statuses as of 01/22/2022) [facility]09-08-2021 History of Past illness Narrative* Problem Noted Date Resolved Date Obesity, Class II, BMI 35-39.9 03/27/2021 0 12/06/2021 Obesity, Class I, BMI 30-34.9 11/30/2020 documented as of this encounter (statuses as of 01/30/2022) [facility]08-26-2021 NoteHNO ID: [id number] Author: Elva Dee LPN Service: ? Author Type: LICENSED NURSE Type: Progress Notes Filed: 03/14/2021 2:32 PM Note Text: Subjective HPI Review of Systems Eyes: Negative for blurred vision and double vision. Respiratory: Negative for shortness of breath. Cardiovascular: Negative for chest pain and leg swelling. Gastrointestinal: Negative for constipation, diarrhea, nausea and vomiting. Genitourinary: Negative for dysuria. Skin: Negative for itching. Neurological: Negative for dizziness, tingling, weakness and headaches. Endo/Heme/Allergies: Does not bruise/bleed easily. Psychiatric/Behavioral: Negative for depression and suicidal ideas. The patient is not nervous/anxious. PAST MEDICAL HISTORY Diagnosis Date - Benign prostatic hyperplasia with urinary frequency 11/30/2020 - Bipolar disorder (HCC) 11/30/2020 - Chronic bilateral low back pain 11/30/2020 - Chronic hip pain, bilateral 11/30/2020 - COPD (chronic obstructive pulmonary disease) ([facility]) 11/30/2020 - Coronary artery disease involving [place] coronary artery 11/30/2020 - Esophageal stenosis - Essential hypertension - Gastroesophageal reflux disease without esophagitis 11/30/2020 - Lymphedema 11/30/2020 - Mixed hyperlipidemia - Other and unspecified hyperlipidemia - Paroxysmal A-fib ([facility]) - Tobacco use disorder 11/30/2020 PAST SURGICAL HISTORY Procedure Laterality Date - REPAIR ING HERNIA,5+Y/O,REDUCIBL 2001 Hernia repair, inguinal, right FAMILY HISTORY Problem Relation Age of Onset - Arthritis Mother - Cancer Mother Social History Tobacco Use - Smoking status: Current Every Day Smoker Packs/day: 2.00 Years: 30.00 Pack years: 60.00 Types: Cigarettes - Smokeless tobacco: Never Used Vaping Use - Vaping Use: Never used Substance Use Topics - Alcohol use: Not Currently - Drug use: No Current Meds divalproex ER (DEPAKOTE ER) 500 mg 24 hr tablet Take 1 tablet by mouth daily at bedtime. Take with 250 mg dose. divalproex ER (DEPAKOTE ER) 250 mg 24 hr tablet Take 1 tablet by mouth daily at bedtime. Take with 500 mg dose. OLANZapine (ZYPREXA) 10 mg tablet Take 1 tablet by mouth daily at bedtime. hydrOXYzine HCl (ATARAX) 25 mg tablet Take 1 tablet by mouth at bedtime as needed. albuterol HFA (PROVENTIL HFA, VENTOLIN HFA) 90 mcg/actuation inhaler Inhale 1-2 Puffs as instructed four times daily as needed. PULMICORT FLEXHALER 180 mcg/actuation aepb INHALE 2 PUFFS BY MOUTH TWICE DAILY FOR SHORTNESS OF BREATH - RINSE MOUTH AFTER USE cholecalciferol (VITAMIN D3) 1,000 unit tab tablet Take 2,000 Units by mouth once daily. docusate sodium (COLACE) 100 mg capsule Take by mouth. finasteride (PROSCAR) 5 mg tablet Take 5 mg by mouth daily at bedtime. folic acid 1 mg tablet Take by mouth. melatonin 3 mg tablet Take 3 mg by mouth. omeprazole (PRILOSEC) 20 mg capsule TAKE 1 CAPSULE BY MOUTH EVERY DAY FOR GERD tamsulosin (FLOMAX) 0.4 mg TAKE 1 CAPSULE BY MOUTH AT BEDTIME FOR BPH thiamine (VITAMIN B1) 100 mg tablet Take by mouth. tiZANidine (ZANAFLEX) 4 mg tablet TAKE 1 TABLET BY MOUTH THREE TIMES DAILY FOR MUSCLE SPASMS Objective Temp 36.2 ?C (97.2 ?F) Ht 182.9 cm (6') Wt 113.4 kg (250 lb) BMI 33.91 kg/m? [facility] NoteHNO ID: [id number] Author: Juancho Carpenter III, MD Service: ? Author Type: Physician Type: Progress Notes Filed: 03/14/2021 2:32 PM Note Text: [facility] [place] [facility] Name: Kelly Damian : 1950 Purpose: New Patient Consultation Date 03/14/2021 Thank you, Inocente Nichols, for referring Kelly Damian for evaluation and management options for the chief complaint(s) noted below. Initial HPI: (Obtained on 03/14/2021) Kelly Damian is a 70 year old year-old male, who presents with the following chief complaint(s): low back pain. Symptoms were first noted several months ago. The onset of symptoms was not sudden and was without associated trauma. Treatments prior to initial presentation include the following: Medications (See below), Modalities (eg. Heat, Ice), Physical Therapy , Home Exercise Program and Activity Modification. He was in a SNF for several months due to frequent falls and weakness, now in assisted living. 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 All prescriptions have been APPROPRIATELY filled. No suspicious activity was identified. 03/14/2021 by Juancho Crapenter MD [employer] from 03/14/2021: - [facility] Depression-Revised (CESD-R): 060 (<16, no clinical significance; 16+, depressive symptoms) - Generalized Anxiety Disorder (DENISE-7): 0 (0-4, minimal anxiety; 5-9, mild anxiety; 10-14, moderate anxiety; 15+, severe anxiety) - Opioid Risk Tool (ORT): 0 (0-3, low risk or no risk; 4-7, moderate risk, 8+, high risk) Pain Medications Taken to Date (for the chief complaint(s)): Membrane Stabilizers: none NSAIDS: none Opioids: Vicodin or Morton (Hydrocodone) Muscle Relaxants: Zanaflex (Tizanidine) Topicals: none Other Prescription or OTC Pain Medications: Tylenol (Acetaminophen) Non-Pain Meds of Note: None Allergies: ALLERGIES No Known Allergies Current Medications, Past Medical History, Past Surgical History, Family History, Social History and Review of Systems: On today's date, noted in the attribution, I have confirmed and edited as necessary, the PFSH and ROS obtained by others. Diagnostic Studies: Reviewed Personally on today's date, noted in the attribution MRI Spine Report No resulted procedures found. None DATE PROCEDURE IMPROVEMENT None Physical Exam: 03/14/21 1346 Temp: 36.2 ?C (97.2 ?F) Weight: 113.4 kg (250 lb) Height: 182.9 cm (6') Constitutional:obese Eyes: Conjunctiva clear. No discharge from eyes Cardiovascular: Appears well perfused Lymphatic: No visible regional lymphadenopathy Skin: No visible rashes or ecchymosis Psychiatric: Full affect, Alert, Pleasant Neuro-Lower: Neural Tension Signs: ? Negative slump in bilateral lower limbs Sensation: ? Grossly intact to light touch in both lower limbs, L2-S1 Dermatomes Muscle Tone: ? Normal and symmetric throughout without clonus Strength: ? Iliopsoas (L2): 4 Left, 4 Right ? Quadriceps (L3) 4 Left, 4 Right ? Anterior Tibialis (L4): 4 Left, 4 Right ? Extensor Hallucis Longus (L5): 4 Left, 4 Right ? Gastrocnemius (S1): 4 Left, 4 Right Musculoskeletal-Lower: Inspection: ? Symmetric without atrophy Palpation: ? There is concordant tenderness in the lumbosacral paraspinals ? There is concordant tenderness over the bilateral PSIS ? Concordant tenderness over the greater trochanter on left ? There are minimal paraspinal spasms Spine Range of Motion: ? 50% decreased, with no pain at end range flexion ? The combination of extension and rotation results in concordant pain Hip Range of Motion: ? Normal external and internal rotation, with minimal pain at end ranges Sacroiliac Maneuvers: ? Deferred Diagnoses: (Z13.31) Screening for depression (primary encounter diagnosis) (M47.816) Lumbar spondylosis (M70.62) Trochanteric bursitis of left hip (M48.062) Spinal stenosis, lumbar region with neurogenic claudication Impression: 70 year old male with no significant past medical history, who presents with complaint(s) of axial low back pain, facet-mediated, difficulty walking presumably due to neurogenic claudication. Left hip pain due to trochanteric bursitis, pre (more content not included)...[facility] Sinobronchitis- Primary Unspecified sinusitis (chronic) Obesity, Class I, BMI 30-34.9 Obesity, unspecified Adenocarcinoma of left lung (HCC) Centrilobular emphysema (HCC) Other emphysema Tobacco use disorder Bipolar disorder, in full remission, most recent episode mixed (HCC) Bipolar I disorder, most recent episode (or current) mixed, in full remission [facility] Sinobronchitis Unspecified sinusitis (chronic) [facility] Diagnosis Radiotherapy follow-up- Primary Radiotherapy follow-up examination Neoplasm of lung Neoplasm of unspecified nature of respiratory system Primary cancer of right lower lobe of lung (HCC) [facility] Diagnosis Lumbar spondylosis- Primary Lumbosacral spondylosis without myelopathy Spinal stenosis of lumbar region with neurogenic claudication Spinal stenosis, lumbar region, with neurogenic claudication Trochanteric bursitis of left hip Enthesopathy of hip region [facility] Diagnosis Pressure injury of skin of buttock, unspecified injury stage, unspecified laterality- Primary [facility] Diagnosis Pressure injury of sacral region, stage 2 (HCC)- Primary Physical debility Debility, unspecified S/P right hip fracture Spinal stenosis, lumbar region, with neurogenic claudication Centrilobular emphysema (HCC) Other emphysema [facility] Diagnosis Trochanteric bursitis of right hip- Primary Enthesopathy of hip region Lumbar spondylosis Lumbosacral spondylosis without myelopathy Spinal stenosis of lumbar region with neurogenic claudication Spinal stenosis, lumbar region, with neurogenic claudication Trochanteric bursitis of left hip Enthesopathy of hip region Spinal stenosis, lumbar region with neurogenic claudication [facility] Diagnosis Cellulitis of right lower leg- Primary Cellulitis and abscess of leg, except foot [facility] Diagnosis Neoplasm of lung Neoplasm of unspecified nature of respiratory system [facility] Diagnosis Cellulitis of right lower leg- Primary Cellulitis and abscess of leg, except foot Lymphedema Other lymphedema [facility] Diagnosis Primary hypertension- Primary Unspecified essential hypertension Lymphedema Other lymphedema Centrilobular emphysema (HCC) Other emphysema Adenocarcinoma of left lung (HCC) Adenocarcinoma of right lung (HCC) Bipolar disorder, in full remission, most recent episode mixed (HCC) Bipolar I disorder, most recent episode (or current) mixed, in full remission Pulmonary hypertension due to COPD (HCC) Other chronic pulmonary heart diseases [facility] Diagnosis Spinal stenosis of lumbar region with neurogenic claudication- Primary Spinal stenosis, lumbar region, with neurogenic claudication Lumbar spondylosis Lumbosacral spondylosis without myelopathy Trochanteric bursitis of left hip Enthesopathy of hip region Trochanteric bursitis of right hip Enthesopathy of hip region [facility] Diagnosis Hyponatremia- Primary Hyposmolality and/or hyponatremia Obesity, Class I, BMI 30-34.9 Obesity, unspecified Centrilobular emphysema (HCC) Other emphysema Lymphedema Other lymphedema Uncomplicated alcohol dependence (HCC) Other and unspecified alcohol dependence, unspecified drinking behavior Benign prostatic hyperplasia with urinary frequency Bipolar affective disorder, remission status unspecified (HCC) Primary hypertension Unspecified essential hypertension [facility] Diagnosis Lymphedema Other lymphedema [facility]* Diagnosis Neoplasm of lung Neoplasm of unspecified nature of respiratory system [facility]* Diagnosis COVID-19 virus infection- Primary [facility] Diagnosis Adenocarcinoma of left lung (HCC)- Primary [facility] Diagnosis Preoperative examination- Primary Preoperative examination, unspecified Bradycardia Other specified cardiac dysrhythmias 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 Primary hypertension Unspecified essential hypertension Centrilobular emphysema (HCC) Other emphysema [facility] Diagnosis Abnormal chest x-ray- Primary Other nonspecific abnormal finding of lung field [facility] Diagnosis Neoplasm of lung- Primary Neoplasm of unspecified nature of respiratory system [facility] Diagnosis Lymphedema- Primary Other lymphedema Primary hypertension Unspecified essential hypertension Abnormal chest x-ray Other nonspecific abnormal finding of lung field Need for influenza vaccination Need for prophylactic vaccination and inoculation against influenza [facility]* Diagnosis Lymphedema Other lymphedema [facility] Diagnosis Lymphedema- Primary Other lymphedema Need for vaccination Need for prophylactic vaccination and inoculation against unspecified single disease Centrilobular emphysema (HCC) Other emphysema Pulmonary hypertension due to COPD (HCC) Other chronic pulmonary heart diseases Uncomplicated alcohol dependence (HCC) Other and unspecified alcohol dependence, unspecified drinking behavior Bipolar affective disorder, remission status unspecified (HCC) documented in this encounter [facility] note* Diagnosis Lymphedema Other lymphedema [facility] Diagnosis Wound of right lower extremity, subsequent encounter- Primary Urinary incontinence, unspecified type Physical debility Debility, unspecified Lymphedema Other lymphedema [facility]* Diagnosis Primary cancer of left lower lobe of lung (HCC)- Primary Thrombocytopenia (HCC) Thrombocytopenia, unspecified [facility] Diagnosis Lymphedema- Primary Other lymphedema Spinal stenosis, lumbar region, with neurogenic claudication Urinary incontinence, unspecified type Physical debility Debility, unspecified Constipation, unspecified constipation type Primary hypertension Unspecified essential hypertension [facility]* Diagnosis Radiotherapy follow-up- Primary Radiotherapy follow-up examination Malignant neoplasm of unspecified part of unspecified bronchus or lung (HCC) [facility]* Diagnosis Lymphedema Other lymphedema documented in this encounter [facility] note* Diagnosis Lymphedema- Primary Other lymphedema documented in this encounter [facility] note* Diagnosis Ulcers of both lower legs (HCC)- Primary Ulcer of lower limb, unspecified documented in this encounter [facility] note* Diagnosis Lung nodules- Primary Other nonspecific abnormal finding of lung field documented in this encounter [facility] note* Diagnosis Ulcers of both lower legs (HCC)- Primary Ulcer of lower limb, unspecified Lymphedema Other lymphedema Pressure injury of buttock, stage 2, unspecified laterality (HCC) Physical debility Debility, unspecified Lung nodules Other nonspecific abnormal finding of lung field 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) Hyponatremia Hyposmolality and/or hyponatremia Anemia, unspecified type documented in this encounter [facility] note* Diagnosis PAD (peripheral artery disease) (HCC)- Primary Peripheral vascular disease, unspecified Dermatophytosis of nail Lymphedema Other lymphedema documented in this encounter [facility] note* Diagnosis Impacted cerumen of left ear- Primary Impacted cerumen Pressure injury of buttock, stage 2, unspecified laterality (HCC) Physical debility Debility, unspecified Lymphedema Other lymphedema documented in this encounter [facility] note* Diagnosis Lung nodules Other nonspecific abnormal finding of lung field documented in this encounter [facility] note* Diagnosis Malignant neoplasm of unspecified part of unspecified bronchus or lung (HCC)- Primary [facility] Advance Directives No Advanced Directives Records FoundDocuments on File Type Date Recorded 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 Advance Directive(s) 07/03/2021 1:23 PM Documents on File Type Date Recorded 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 anation Advance Directive(s) 07/03/2021 1:23 PM Reason for Referral Specialty Diagnoses / Procedures Referred By Contac t Referred To Contact CT IMAGING Diagnoses Neoplasm of lung Procedures CT CHEST WO IVCON DIAGNOSTIC COMPUTED TOMOGRAPHY THORAX W/O CNTRST Nghia Harvey MD, [address] [place] [address] Ct Imaging Referral ID Status Reason Start Date Expiration Date Visits Requested Visits Authorized [id number] Pending Review Auto-Generat ed Referral 01/13/2022 12/06/2022 1 1 Referral ID Status Reason Start Date Expiration Date V isits Requested Visits Authorized [id number] Closed Auto-Generate d Referral 01/13/2022 12/06/2022 1 1 Referral ID Status Reason Start Date Expiration Date V isits Requested Visits Authorized [id number] Closed Auto-Generate d Referral 05/02/2022 03/01/2023 1 1 Specialty Diagnoses / Procedures Referred By Contac t Referred To Contact Cardiology Diagnoses Preoperative examination Bradycardia 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 Procedures CONSULT TO CARDIOLOGY OFFICE/OUTPATIENT [facility] MDM 60-74 MINUTES Inocente Nichols MD [address] [place] [address] Referral ID Status Reason Start Date Expiration Date Visits Requested Visits Authorized [id number] Authorized PCP Requested Referral 2 05/30/2023 1 1 Specialty Diagnoses / Procedures Referred By Contac t Referred [facility] Diagnoses Preoperative examination Procedures ECG COMPLETE ECG ROUTINE ECG W/LEAST 12 LDS W/I&R Inocente Nichols MD [address] [place] [address] [facility] [place] [address] [place] [address] Referral ID Status Reason Start Date Expiration Date Visits Requested Visits Authorized [id number] Pending Review Auto-Generat ed Referral 2 05/30/2023 1 1 Referral ID Status Reason Start Date Expiration Date Visits Requested Visits Authorized [id number] Authorized Auto-Generat ed Referral 10/01/2022 08/02/2023 1 1 Specialty Diagnoses / Procedures Referred By Contac t Referred To Contact CT IMAGING Diagnoses Malignant neoplasm of unspecified part of unspecified bronchus or lung (HCC) Procedures CT CHEST WO IVCON DIAGNOSTIC COMPUTED TOMOGRAPHY THORAX W/O Nghia Downing MD, [address] [place] [address] Ct Imaging Referral ID Status Reason Start Date Expiration Date Visits Requested Visits Authorized [id number] Authorized Auto-Generat ed Referral 02/11/2023 01/11/2024 1 1 Specialty Diagnoses / Procedures Referred By Contac t Referred To Contact CT IMAGING Diagnoses Lung nodules Procedures CT CHEST WO IVCON DIAGNOSTIC COMPUTED TOMOGRAPHY THORAX W/O Nghia Downing MD, [address] [place] [address] Ct Imaging Referral ID Status Reason Start Date Expiration Date Visits Requested Visits Authorized [id number] Authorized Auto-Generat ed Referral 05/21/2023 03/19/2024 1 1 Specialty Diagnoses / Procedures Referred By Contac t Referred To Contact Diagnoses Lung nodules 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) Procedures CONSULT TO PULMONARY MEDICINE Inocente Nichols MD [address] [place] [id number] Referral ID Status Reason Start Date Expiration Date Visits Requested Visits Authorized [id number] Ref Not Required PCP Requested Referral 02/27/2023 05/28/2023 1 1 Specialty Diagnoses / Procedures Referred By Contac t Referred To Contact CT IMAGING Diagnoses Malignant neoplasm of unspecified part of unspecified bronchus or lung (HCC) Procedures CT CHEST WO IVCON DIAGNOSTIC COMPUTED TOMOGRAPHY THORAX W/O Nghia Downing MD, [address] [address] [place] [address] Referral ID Status Reason Start Date Expiration Date Visits Requested Visits Authorized [id number] Authorized Auto-Generat ed Referral 08/19/2023 07/16/2024 1 1 Medications Administered Section Inactive Administered Medications - up to 3 most recent administrations Medication Order MAR Action Action Date Dose Rate Site bupivacaine(PF) 0.75 % (7.5 mg/mL) 15 mg injection (MARCAINE PF) 15 mg (2 mL), EPIDURAL, ONCE, 1 dose, On Rayna 02/27/22 at 1300 Given 02/27/2022 3:13 PM EDT 15 mg Other lidocaine 10 mg/mL (1 %) 100 mg injection (XYLOCAINE) 100 mg, OTHER, ONCE, 1 dose, On Rayna 02/27/22 at 1300 Given 02/27/2022 3:14 PM EDT 100 mg Other methylPREDNISolone acetate 40 mg injection (DEPO-Medrol) 40 mg, OTHER, ONCE, 1 dose, On Rayna 02/27/22 at 1300 Given 02/27/2022 3:15 PM EDT 40 mg Other Summary Purpose Family History No Family History Records FoundNo Family History Records Found Additional Source Comments Source Comments (unrecognize d section and content) In the event this informatio n is protected by the Federal Confidentiality of Alcohol and Drug Abuse Patient Records regulations: The Federal rules restrict any use of the information to criminally investigate or prosecute any alcohol or drug abuse patient.[facility] the event this information is protected by the Federal Confidentiality of Alcohol and Drug Abuse Patient Records regulations: The Federal rules restrict any use of the information to criminally investigate or prosecute any alcohol or drug abuse patient.[facility] the event this information is protected by the Federal Confidentiality of Alcohol and Drug Abuse Patient Records regulations: The Federal rules restrict any use of the information to criminally investigate or prosecute any alcohol or drug abuse patient.[facility] the event this information is protected by the Federal Confidentiality of Alcohol and Drug Abuse Patient Records regulations: The Federal rules restrict any use of the information to criminally investigate or prosecute any alcohol or drug abuse patient.[facility] the event this information is protected by the Federal Confidentiality of Alcohol and Drug Abuse Patient Records regulations: The Federal rules restrict any use of the information to criminally investigate or prosecute any alcohol or drug abuse patient.[facility] the event this information is protected by the Federal Confidentiality of Alcohol and Drug Abuse Patient Records regulations: The Federal rules restrict any use of the information to criminally investigate or prosecute any alcohol or drug abuse patient.[facility] the event this information is protected by the Federal Confidentiality of Alcohol and Drug Abuse Patient Records regulations: The Federal rules restrict any use of the information to criminally investigate or prosecute any alcohol or drug abuse patient.[facility] the event this information is protected by the Federal Confidentiality of Alcohol and Drug Abuse Patient Records regulations: The Federal rules restrict any use of the information to criminally investigate or prosecute any alcohol or drug abuse patient.[facility] the event this information is protected by the Federal Confidentiality of Alcohol and Drug Abuse Patient Records regulations: The Federal rules restrict any use of the information to criminally investigate or prosecute any alcohol or drug abuse patient.[facility] the event this information is protected by the Federal Confidentiality of Alcohol and Drug Abuse Patient Records regulations: The Federal rules restrict any use of the information to criminally investigate or prosecute any alcohol or drug abuse patient.[facility] the event this information is protected by the Federal Confidentiality of Alcohol and Drug Abuse Patient Records regulations: The Federal rules restrict any use of the information to criminally investigate or prosecute any alcohol or drug abuse patient.[facility] the event this information is protected by the Federal Confidentiality of Alcohol and Drug Abuse Patient Records regulations: The Federal rules restrict any use of the information to criminally investigate or prosecute any alcohol or drug abuse patient.[facility] the event this information is protected by the Federal Confidentiality of Alcohol and Drug Abuse Patient Records regulations: The Federal rules restrict any use of the information to criminally investigate or prosecute any alcohol or drug abuse patient.[facility] the event this information is protected by the Federal Confidentiality of Alcohol and Drug Abuse Patient Records regulations: The Federal rules restrict any use of the information to criminally investigate or prosecute any alcohol or drug abuse patient.[facility] the event this information is protected by the Federal Confidentiality of Alcohol and Drug Abuse Patient Records regulations: The Federal rules restrict any use of the information to criminally investigate or prosecute any alcohol or drug abuse patient.[facility] the event this information is protected by the Federal Confidentiality of Alcohol and Drug Abuse Patient Records regulations: The Federal rules restrict any use of the information to criminally investigate or prosecute any alcohol or drug abuse patient.[facility] the event this information is protected by the Federal Confidentiality of Alcohol and Drug Abuse Patient Records regulations: The Federal rules restrict any use of the information to criminally investigate or prosecute any alcohol or drug abuse patient.[facility] the event this information is protected by the Federal Confidentiality of Alcohol and Drug Abuse Patient Records regulations: The Federal rules restrict any use of the information to criminally investigate or prosecute any alcohol or drug abuse patient.[facility] the event this information is protected by the Federal Confidentiality of Alcohol and Drug Abuse Patient Records regulations: The Federal rules restrict any use of the information to criminally investigate or prosecute any alcohol or drug abuse patient.[facility] the event this information is protected by the Federal Confidentiality of Alcohol and Drug Abuse Patient Records regulations: The Federal rules restrict any use of the information to criminally investigate or prosecute any alcohol or drug abuse patient.[facility] the event this information is protected by the Federal Confidentiality of Alcohol and Drug Abuse Patient Records regulations: The Federal rules restrict any use of the information to criminally investigate or prosecute any alcohol or drug abuse patient.[facility] TroyIn the event this information is protected by the Federal Confidentiality of Alcohol and Drug Abuse Patient Records regulations: The Federal rules restrict any use of the information to criminally investigate or prosecute any alcohol or drug abuse patient.[facility] TroyIn the event this information is protected by the Federal Confidentiality of Alcohol and Drug Abuse Patient Records regulations: The Federal rules restrict any use of the information to criminally investigate or prosecute any alcohol or drug abuse patient.[facility] TroyIn the event this information is protected by the Federal Confidentiality of Alcohol and Drug Abuse Patient Records regulations: The Federal rules restrict any use of the information to criminally investigate or prosecute any alcohol or drug abuse patient.[facility] TroyIn the event this information is protected by the Federal Confidentiality of Alcohol and Drug Abuse Patient Records regulations: The Federal rules restrict any use of the information to criminally investigate or prosecute any alcohol or drug abuse patient.[facility] TroyIn the event this information is protected by the Federal Confidentiality of Alcohol and Drug Abuse Patient Records regulations: The Federal rules restrict any use of the information to criminally investigate or prosecute any alcohol or drug abuse patient.[facility] TroyIn the event this information is protected by the Federal Confidentiality of Alcohol and Drug Abuse Patient Records regulations: The Federal rules restrict any use of the information to criminally investigate or prosecute any alcohol or drug abuse patient.[facility] TroyIn the event this information is protected by the Federal Confidentiality of Alcohol and Drug Abuse Patient Records regulations: The Federal rules restrict any use of the information to criminally investigate or prosecute any alcohol or drug abuse patient.[facility] TroyIn the event this information is protected by the Federal Confidentiality of Alcohol and Drug Abuse Patient Records regulations: The Federal rules restrict any use of the information to criminally investigate or prosecute any alcohol or drug abuse patient.[facility] TroyIn the event this information is protected by the Federal Confidentiality of Alcohol and Drug Abuse Patient Records regulations: The Federal rules restrict any use of the information to criminally investigate or prosecute any alcohol or drug abuse patient.[facility] TroyIn the event this information is protected by the Federal Confidentiality of Alcohol and Drug Abuse Patient Records regulations: The Federal rules restrict any use of the information to criminally investigate or prosecute any alcohol or drug abuse patient.[facility] TroyIn the event this information is protected by the Federal Confidentiality of Alcohol and Drug Abuse Patient Records regulations: The Federal rules restrict any use of the information to criminally investigate or prosecute any alcohol or drug abuse patient.[facility] TroyIn the event this information is protected by the Federal Confidentiality of Alcohol and Drug Abuse Patient Records regulations: The Federal rules restrict any use of the information to criminally investigate or prosecute any alcohol or drug abuse patient.[facility] TroyIn the event this information is protected by the Federal Confidentiality of Alcohol and Drug Abuse Patient Records regulations: The Federal rules restrict any use of the information to criminally investigate or prosecute any alcohol or drug abuse patient.[facility] TroyIn the event this information is protected by the Federal Confidentiality of Alcohol and Drug Abuse Patient Records regulations: The Federal rules restrict any use of the information to criminally investigate or prosecute any alcohol or drug abuse patient.[facility] TroyIn the event this information is protected by the Federal Confidentiality of Alcohol and Drug Abuse Patient Records regulations: The Federal rules restrict any use of the information to criminally investigate or prosecute any alcohol or drug abuse patient.[facility] TroyIn the event this information is protected by the Federal Confidentiality of Alcohol and Drug Abuse Patient Records regulations: The Federal rules restrict any use of the information to criminally investigate or prosecute any alcohol or drug abuse patient.[facility] TroyIn the event this information is protected by the Federal Confidentiality of Alcohol and Drug Abuse Patient Records regulations: The Federal rules restrict any use of the information to criminally investigate or prosecute any alcohol or drug abuse patient.[facility] TroyIn the event this information is protected by the Federal Confidentiality of Alcohol and Drug Abuse Patient Records regulations: The Federal rules restrict any use of the information to criminally investigate or prosecute any alcohol or drug abuse patient.[facility] TroyIn the event this information is protected by the Federal Confidentiality of Alcohol and Drug Abuse Patient Records regulations: The Federal rules restrict any use of the information to criminally investigate or prosecute any alcohol or drug abuse patient.[facility] TroyIn the event this information is protected by the Federal Confidentiality of Alcohol and Drug Abuse Patient Records regulations: The Federal rules restrict any use of the information to criminally investigate or prosecute any alcohol or drug abuse patient.[facility] TroyIn the event this information is protected by the Federal Confidentiality of Alcohol and Drug Abuse Patient Records regulations: The Federal rules restrict any use of the information to criminally investigate or prosecute any alcohol or drug abuse patient.[facility] TroyIn the event this information is protected by the Federal Confidentiality of Alcohol and Drug Abuse Patient Records regulations: The Federal rules restrict any use of the information to criminally investigate or prosecute any alcohol or drug abuse patient.[facility] TroyIn the event this information is protected by the Federal Confidentiality of Alcohol and Drug Abuse Patient Records regulations: The Federal rules restrict any use of the information to criminally investigate or prosecute any alcohol or drug abuse patient.[facility] TroyIn the event this information is protected by the Federal Confidentiality of Alcohol and Drug Abuse Patient Records regulations: The Federal rules restrict any use of the information to criminally investigate or prosecute any alcohol or drug abuse patient.[facility] TroyIn the event this information is protected by the Federal Confidentiality of Alcohol and Drug Abuse Patient Records regulations: The Federal rules restrict any use of the information to criminally investigate or prosecute any alcohol or drug abuse patient.[facility] TroyIn the event this information is protected by the Federal Confidentiality of Alcohol and Drug Abuse Patient Records regulations: The Federal rules restrict any use of the information to criminally investigate or prosecute any alcohol or drug abuse patient.[facility] TroyIn the event this information is protected by the Federal Confidentiality of Alcohol and Drug Abuse Patient Records regulations: The Federal rules restrict any use of the information to criminally investigate or prosecute any alcohol or drug abuse patient.[facility] TroyIn the event this information is protected by the Federal Confidentiality of Alcohol and Drug Abuse Patient Records regulations: The Federal rules restrict any use of the information to criminally investigate or prosecute any alcohol or drug abuse patient.[facility] TroyIn the event this information is protected by the Federal Confidentiality of Alcohol and Drug Abuse Patient Records regulations: The Federal rules restrict any use of the information to criminally investigate or prosecute any alcohol or drug abuse patient.[facility] TroyIn the event this information is protected by the Federal Confidentiality of Alcohol and Drug Abuse Patient Records regulations: The Federal rules restrict any use of the information to criminally investigate or prosecute any alcohol or drug abuse patient.[facility] TroyIn the event this information is protected by the Federal Confidentiality of Alcohol and Drug Abuse Patient Records regulations: The Federal rules restrict any use of the information to criminally investigate or prosecute any alcohol or drug abuse patient.[facility] TroyIn the event this information is protected by the Federal Confidentiality of Alcohol and Drug Abuse Patient Records regulations: The Federal rules restrict any use of the information to criminally investigate or prosecute any alcohol or drug abuse patient.[facility] TroyIn the event this information is protected by the Federal Confidentiality of Alcohol and Drug Abuse Patient Records regulations: The Federal rules restrict any use of the information to criminally investigate or prosecute any alcohol or drug abuse patient.[facility] TroyIn the event this information is protected by the Federal Confidentiality of Alcohol and Drug Abuse Patient Records regulations: The Federal rules restrict any use of the information to criminally investigate or prosecute any alcohol or drug abuse patient.[facility] TroyIn the event this information is protected by the Federal Confidentiality of Alcohol and Drug Abuse Patient Records regulations: The Federal rules restrict any use of the information to criminally investigate or prosecute any alcohol or drug abuse patient.[facility] TroyIn the event this information is protected by the Federal Confidentiality of Alcohol and Drug Abuse Patient Records regulations: The Federal rules restrict any use of the information to criminally investigate or prosecute any alcohol or drug abuse patient.[facility] TroyIn the event this information is protected by the Federal Confidentiality of Alcohol and Drug Abuse Patient Records regulations: The Federal rules restrict any use of the information to criminally investigate or prosecute any alcohol or drug abuse patient.[facility] TroyIn the event this information is protected by the Federal Confidentiality of Alcohol and Drug Abuse Patient Records regulations: The Federal rules restrict any use of the information to criminally investigate or prosecute any alcohol or drug abuse patient.[facility] TroyIn the event this information is protected by the Federal Confidentiality of Alcohol and Drug Abuse Patient Records regulations: The Federal rules restrict any use of the information to criminally investigate or prosecute any alcohol or drug abuse patient.[facility] TroyIn the event this information is protected by the Federal Confidentiality of Alcohol and Drug Abuse Patient Records regulations: The Federal rules restrict any use of the information to criminally investigate or prosecute any alcohol or drug abuse patient.[facility] TroyIn the event this information is protected by the Federal Confidentiality of Alcohol and Drug Abuse Patient Records regulations: The Federal rules restrict any use of the information to criminally investigate or prosecute any alcohol or drug abuse patient.[facility] TroyIn the event this information is protected by the Federal Confidentiality of Alcohol and Drug Abuse Patient Records regulations: The Federal rules restrict any use of the information to criminally investigate or prosecute any alcohol or drug abuse patient.[facility] TroyIn the event this information is protected by the Federal Confidentiality of Alcohol and Drug Abuse Patient Records regulations: The Federal rules restrict any use of the information to criminally investigate or prosecute any alcohol or drug abuse patient.[facility] TroyIn the event this information is protected by the Federal Confidentiality of Alcohol and Drug Abuse Patient Records regulations: The Federal rules restrict any use of the information to criminally investigate or prosecute any alcohol or drug abuse patient.[facility] TroyIn the event this information is protected by the Federal Confidentiality of Alcohol and Drug Abuse Patient Records regulations: The Federal rules restrict any use of the information to criminally investigate or prosecute any alcohol or drug abuse patient.[facility] TroyIn the event this information is protected by the Federal Confidentiality of Alcohol and Drug Abuse Patient Records regulations: The Federal rules restrict any use of the information to criminally investigate or prosecute any alcohol or drug abuse patient.[facility] TroyIn the event this information is protected by the Federal Confidentiality of Alcohol and Drug Abuse Patient Records regulations: The Federal rules restrict any use of the information to criminally investigate or prosecute any alcohol or drug abuse patient.[facility] TroyIn the event this information is protected by the Federal Confidentiality of Alcohol and Drug Abuse Patient Records regulations: The Federal rules restrict any use of the information to criminally investigate or prosecute any alcohol or drug abuse patient.[facility] TroyIn the event this information is protected by the Federal Confidentiality of Alcohol and Drug Abuse Patient Records regulations: The Federal rules restrict any use of the information to criminally investigate or prosecute any alcohol or drug abuse patient.[facility] TroyIn the event this information is protected by the Federal Confidentiality of Alcohol and Drug Abuse Patient Records regulations: The Federal rules restrict any use of the information to criminally investigate or prosecute any alcohol or drug abuse patient.[facility] TroyIn the event this information is protected by the Federal Confidentiality of Alcohol and Drug Abuse Patient Records regulations: The Federal rules restrict any use of the information to criminally investigate or prosecute any alcohol or drug abuse patient.[facility] TroyIn the event this information is protected by the Federal Confidentiality of Alcohol and Drug Abuse Patient Records regulations: The Federal rules restrict any use of the information to criminally investigate or prosecute any alcohol or drug abuse patient.[facility] TroyIn the event this information is protected by the Federal Confidentiality of Alcohol and Drug Abuse Patient Records regulations: The Federal rules restrict any use of the information to criminally investigate or prosecute any alcohol or drug abuse patient.[facility] TroyIn the event this information is protected by the Federal Confidentiality of Alcohol and Drug Abuse Patient Records regulations: The Federal rules restrict any use of the information to criminally investigate or prosecute any alcohol or drug abuse patient.[facility] TroyIn the event this information is protected by the Federal Confidentiality of Alcohol and Drug Abuse Patient Records regulations: The Federal rules restrict any use of the information to criminally investigate or prosecute any alcohol or drug abuse patient.[facility] TroyIn the event this information is protected by the Federal Confidentiality of Alcohol and Drug Abuse Patient Records regulations: The Federal rules restrict any use of the information to criminally investigate or prosecute any alcohol or drug abuse patient.[facility] TroyIn the event this information is protected by the Federal Confidentiality of Alcohol and Drug Abuse Patient Records regulations: The Federal rules restrict any use of the information to criminally investigate or prosecute any alcohol or drug abuse patient.[facility] TroyIn the event this information is protected by the Federal Confidentiality of Alcohol and Drug Abuse Patient Records regulations: The Federal rules restrict any use of the information to criminally investigate or prosecute any alcohol or drug abuse patient.[facility] TroyIn the event this information is protected by the Federal Confidentiality of Alcohol and Drug Abuse Patient Records regulations: The Federal rules restrict any use of the information to criminally investigate or prosecute any alcohol or drug abuse patient.[facility] TroyIn the event this information is protected by the Federal Confidentiality of Alcohol and Drug Abuse Patient Records regulations: The Federal rules restrict any use of the information to criminally investigate or prosecute any alcohol or drug abuse patient.[facility] TroyIn the event this information is protected by the Federal Confidentiality of Alcohol and Drug Abuse Patient Records regulations: The Federal rules restrict any use of the information to criminally investigate or prosecute any alcohol or drug abuse patient.[facility] Reason for Visit (unrecogniz ed section and content) Specialty Diagnoses / Procedures Referred By Contac t Referred To Contact CT IMAGING Diagnoses Neoplasm of lung Procedures CT CHEST WO IVCON DIAGNOSTIC COMPUTED TOMOGRAPHY THORAX W/O Nghia Downing MD, [address] [place] [address] Ct Imaging Referral ID Status Reason Start Date Expiration Date V isits Requested Visits Authorized [id number] Closed Auto-Generate d Referral 05/02/2022 03/01/2023 1 1 Reason Comments Patient Education discharge instructio ns Reason Comments Patient Question Reason Comments Sinus Problem Reason Comments Refill Request Reason Comments Recheck Reason Comments Follow Up Reason Comments Buttock wounds Reason Comments Orders Lift Chair Reason Comments Home Health Nursing Order Request Reason Comments Future Appointment Reason Comments SN POC Orders Reason Comments Home Health Orders Reason Comments [facility] PT POC Reason Comments Results Reason Comments Orders for wound care Reason Comments Follow Up Rx Refills Reason Comments leg swelling wound on right leg Referral ID Status Reason Start Date Expiration Date V isits Requested Visits Authorized [id number] Closed Auto-Generate d Referral 01/13/2022 12/06/2022 1 1 Reason Comments 1 week follow up leg Reason Comments Scans schedule PET at [facility] Reason Comments 2 month follow-up Reason Comments Injections Specialty Diagnoses / Procedures Referred By Conttiffani t Referred To Contact Pain Management / PAIN MANAGEMENT Diagnoses Trochanteric bursitis, right hip Right trochanteric bursal injection (in office, no image guidance) Procedures ARTHROCENTESIS ASPIR&/INJ MAJOR JT/BURSA W/O US SPECIALTY INJECTION Juancho Carpenter MD Fox, Kermit, MD [address] [place] [id number] Referral ID Status Reason Start Date Expiration Date Visits Re quested Visits Authorized [id number] Closed 02/27/2022 05/28/2022 1 1 Reason Comments Patient Update Reason Comments FYI-No Action Needed Reason Comments Hospital F/U Reason Comments Alf Update Reason Comments Medication Question Reason Comments Faxed to [facility] Reason Onset Date Comments Opened In Error 05/01/2022 Reason Comments Covid19 Concern Reason Comments Information Reason Comments Pre-Op Exam Reason Comments fax request Reason Comments Results Reason Onset Date Comments Edema Immunizations 07/16/2022 Flu vaccination Reason Comments Results Orders Reason Comments Patient Update Edema Reason Onset Date Comments Refill Request 08/05/2022 Reason Comments F/U 6 months Reason Comments Patient Update Orders Reason Comments Radiotherapy On-treatment Visit Reason Comments Acute Visit Constipation x 5-6 d ays; MUNA lower leg edema Reason Comments decreased appetite Reason Comments patient information Reason Comments [facility], [facility] Pt up date/apt for today Reason Comments [facility] HH Orders Reason Comments Home Health update Reason Onset Date Comments Refill Request 01/06/2023 Reason Comments Erroneous encounter-disregard Reason Comments Opened In Error Reason Comments 4 week follow up Reason Comments nail care New Specialty Diagnoses / Procedures Referred By Contac t Referred To Contact Podiatry Diagnoses Dermatophytosis of nail Lymphedema Procedures CONSULT TO PODIATRY OFFICE/OUTPATIENT [facility] 60-74 MINUTES Inocente Nichols MD [address] [place] [address] Referral ID Status Reason Start Date Expiration Date V isits Requested Visits Authorized [id number] Closed PCP Requested Referral 12/26/2022 12/26/2023 [address] Specialty Diagnoses / Procedures Referred By Contac t Referred To Contact CT IMAGING Diagnoses Lung nodules Procedures CT CHEST WO IVCON DIAGNOSTIC COMPUTED TOMOGRAPHY THORAX W/O CNTRST Nghia Harvey MD, MD [address] [place] [address] [place] [id number] Referral ID Status Reason Start Date Expiration Date V isits Requested Visits Authorized [id number] Closed Auto-Generate d Referral 05/21/2023 03/19/2024 1 1 Reason Comments Appointment Care Teams (unrecognized sec tion and content) Machine Assembler Supervisor Relationship Specialty Start Date End Date Inocente Nichols MD [address] [place] [address] PCP - General Internal Medicine 11/30/20 Nghia Harvey MD, [address] [place] [address] Physician Radiation Oncology 07/10/21 Machine Assembler Supervisor Relationship Specialty Start Date End Date Inocente Nichols MD [address] [place] [address] PCP - General Internal Medicine 11/30/20 Nghia Harvey MD, [address] [facility] [address] Physician Radiation Oncology 07/10/21 Machine Assembler Supervisor Relationship Specialty Start Date End Date Inocente Nichols MD [address] [place] [address] PCP - General Internal Medicine 11/30/20 Nghia Harvey MD, [address] [facility] [address] Physician Radiation Oncology 07/10/21 Machine Assembler Supervisor Relationship Specialty Start Date End Date Inocente Nichols MD [address] [place] [address] PCP - General Internal Medicine 11/30/20 Nghia Harvey MD, [address] [place] [address] Physician Radiation Oncology 07/10/21 Machine Assembler Supervisor Relationship Specialty Start Date End Date Inocente Nichols MD [address] [facility] [address] PCP - General Internal Medicine 11/30/20 Nghia Harvey MD, [address] [facility] [place] [address] Physician Radiation Oncology 07/10/21 Machine Assembler Supervisor Relationship Specialty Start Date End Date Inocente Nichols MD [address] [facility] [place] [address] PCP - General Internal Medicine 11/30/20 Nghia Harvey MD, [address] [facility] [place] [address] Physician Radiation Oncology 07/10/21 Machine Assembler Supervisor Relationship Specialty Start Date End Date Inocente Nichols MD [address] [facility] [place] [address] PCP - General Internal Medicine 11/30/20 Nghia Harvey MD, [address] [facility] [place] [address] Physician Radiation Oncology 07/10/21 Machine Assembler Supervisor Relationship Specialty Start Date End Date Inocente Nichols MD [address] [facility] [place] [address] PCP - General Internal Medicine 11/30/20 Nghia Harvey MD, [address] [place] [address] Physician Radiation Oncology 07/10/21 Machine Assembler Supervisor Relationship Specialty Start Date End Date Inocente Nichols MD [address] [facility] [place] [address] PCP - General Internal Medicine 11/30/20 Nghia Harvey MD, [address] [facility] [place] [address] Physician Radiation Oncology 07/10/21 Machine Assembler Supervisor Relationship Specialty Start Date End Date Inocente Nichols MD [address] [facility] [place] [address] PCP - General Internal Medicine 11/30/20 Nghia Harvey MD, [address] [facility] [place] [address] Physician Radiation Oncology 07/10/21 Machine Assembler Supervisor Relationship Specialty Start Date End Date Inocente Nichols MD [address] [facility] [place] [address] PCP - General Internal Medicine 11/30/20 Nghia Harvey MD, [address] [facility] [place] [address] Physician Radiation Oncology 07/10/21 Machine Assembler Supervisor Relationship Specialty Start Date End Date Inocente Nichols MD [address] [facility] [place] [address] PCP - General Internal Medicine 11/30/20 Nghia Harvey MD, [address] [facility] [place] [address] Physician Radiation Oncology 07/10/21 Machine Assembler Supervisor Relationship Specialty Start Date End Date Inocente Nichols MD [address] [facility] [place] [address] PCP - General Internal Medicine 11/30/20 Nghia Harvey MD, [address] [facility] [place] [address] Physician Radiation Oncology 07/10/21 Machine Assembler Supervisor Relationship Specialty Start Date End Date Inocente Nichols MD [address] [facility] [place] [address] PCP - General Internal Medicine 11/30/20 Nghia Harvey MD, [address] [facility] [place] [address] Physician Radiation Oncology 07/10/21 Machine Assembler Supervisor Relationship Specialty Start Date End Date Inocente Nichols MD [address] [facility] [place] [address] PCP - General Internal Medicine 11/30/20 Nghia Harvey MD, [address] [facility] [place] [address] Physician Radiation Oncology 07/10/21 Machine Assembler Supervisor Relationship Specialty Start Date End Date Inocente Nichols MD [address] [facility] [place] [address] PCP - General Internal Medicine 11/30/20 Nghia Harvey MD, [address] [facility] [place] [address] Physician Radiation Oncology 07/10/21 Machine Assembler Supervisor Relationship Specialty Start Date End Date Inocente Nichols MD [address] [facility] [place] [address] PCP - General Internal Medicine 11/30/20 Nghia Harvey MD, [address] [facility] [place] [address] Physician Radiation Oncology 07/10/21 Machine Assembler Supervisor Relationship Specialty Start Date End Date Inocente Nichols MD [address] [place] [address] PCP - General Internal Medicine 11/30/20 Nghia Harvey MD, [address] [facility] [place] [address] Physician Radiation Oncology 07/10/21 Machine Assembler Supervisor Relationship Specialty Start Date End Date Inocente Nichols MD [address] [facility] [place] [address] PCP - General Internal Medicine 11/30/20 Nghia Harvey MD, [address] [facility] [place] [address] Physician Radiation Oncology 07/10/21 Machine Assembler Supervisor Relationship Specialty Start Date End Date Inocente Nichols MD [address] [facility] [place] [address] PCP - General Internal Medicine 11/30/20 Nghia Harvey MD, [address] [facility] [place] [address] Physician Radiation Oncology 07/10/21 Machine Assembler Supervisor Relationship Specialty Start Date End Date Inocente Nichols MD [address] [facility] [place] [address] PCP - General Internal Medicine 11/30/20 Nghia Harvey MD, [address] [facility] [place] [address] Physician Radiation Oncology 07/10/21 Machine Assembler Supervisor Relationship Specialty Start Date End Date Inocente Nichols MD [address] [facility] [place] [address] PCP - General Internal Medicine 11/30/20 Nghia Harvey MD, [address] [facility] [place] [address] Physician Radiation Oncology 07/10/21 Machine Assembler Supervisor Relationship Specialty Start Date End Date Inocente Nichols MD [address] [facility] [place] [address] PCP - General Internal Medicine 11/30/20 Nghia Harvey MD, [address] [facility] [place] [address] Physician Radiation Oncology 07/10/21 Machine Assembler Supervisor Relationship Specialty Start Date End Date Inocente Nichols MD [address] [facility] [place] [address] PCP - General Internal Medicine 11/30/20 Nghia Harvey MD, [address] [facility] [place] [address] Physician Radiation Oncology 07/10/21 Machine Assembler Supervisor Relationship Specialty Start Date End Date Inocente Nichols MD [address] [facility] [place] [address] PCP - General Internal Medicine 11/30/20 Nghia Harvey MD, [address] [facility] [place] [address] Physician Radiation Oncology 07/10/21 Machine Assembler Supervisor Relationship Specialty Start Date End Date Inocente Nichols MD [address] [facility] [place] [address] PCP - General Internal Medicine 11/30/20 Nghia Harvey MD, [address] [facility] [place] [address] Physician Radiation Oncology 07/10/21 Machine Assembler Supervisor Relationship Specialty Start Date End Date Inocente Nichols MD [address] [facility] [place] [address] PCP - General Internal Medicine 11/30/20 Nghia Harvey MD, [address] [place] [address] Physician Radiation Oncology 07/10/21 Machine Assembler Supervisor Relationship Specialty Start Date End Date Inocente Nichols MD [address] [place] [address] PCP - General Internal Medicine 11/30/20 Nghia Harvey MD, [address] [place] [address] Physician Radiation Oncology 07/10/21 Machine Assembler Supervisor Relationship Specialty Start Date End Date Inocente Nichols MD [address] [facility] [place] [address] PCP - General Internal Medicine 11/30/20 Nghia Harvey MD, [address] [address] Physician Radiation Oncology 07/10/21 Machine Assembler Supervisor Relationship Specialty Start Date End Date Inocente Nichols MD [address] [place] [address] PCP - General Internal Medicine 11/30/20 Nghia Harvey MD, [address] [place] [address] Physician Radiation Oncology 07/10/21 Machine Assembler Supervisor Relationship Specialty Start Date End Date Inocente Nichols MD [address] [place] [address] PCP - General Internal Medicine 11/30/20 Nghia Harvey MD, [address] [place] [address] Physician Radiation Oncology 07/10/21 Machine Assembler Supervisor Relationship Specialty Start Date End Date Inocente Nichols MD [address] [facility] [place] [address] PCP - General Internal Medicine 11/30/20 Nghia Harvey MD, [address] [facility] [place] [address] Physician Radiation Oncology 07/10/21 Machine Assembler Supervisor Relationship Specialty Start Date End Date Inocente Nichols MD [address] [facility] [place] [address] PCP - General Internal Medicine 11/30/20 Nghia Harvey MD, [address] [facility] [place] [address] Physician Radiation Oncology 07/10/21 Machine Assembler Supervisor Relationship Specialty Start Date End Date Inocente Nichols MD [address] [facility] [place] [address] PCP - General Internal Medicine 11/30/20 Nghia Harvey MD, [address] [facility] [place] [address] Physician Radiation Oncology 07/10/21 Machine Assembler Supervisor Relationship Specialty Start Date End Date Inocente Nichols MD [address] [facility] [place] [address] PCP - General Internal Medicine 11/30/20 Nghia aHrvey MD, [address] [facility] [place] [address] Physician Radiation Oncology 07/10/21 Machine Assembler Supervisor Relationship Specialty Start Date End Date Inocente Nichols MD [address] [facility] [place] [address] PCP - General Internal Medicine 11/30/20 Nghia Harvey MD, [address] [place] [address] Physician Radiation Oncology 07/10/21 Machine Assembler Supervisor Relationship Specialty Start Date End Date Inocente Nichols MD [address] [place], [place] [address] PCP - General Internal Medicine 11/30/20 Nghia Harvey MD, [address] [place], [place] [address] [phone] Physician Radiation Oncology 07/10/21 Machine Assembler Supervisor Relationship Specialty Start Date End Date Inocente Nichols MD [address] [place] [address] PCP - General Internal Medicine 11/30/20 Nghia Harvey MD, [address] [place] [address] Physician Radiation Oncology 07/10/21 Machine Assembler Supervisor Relationship Specialty Start Date End Date Inocente Nichols MD [address] [place], [place] [address] PCP - General Internal Medicine 11/30/20 Nghia Harvey MD, [address] [place], [place] [address] [phone] Physician Radiation Oncology 07/10/21 Machine Assembler Supervisor Relationship Specialty Start Date End Date Inocente Nichols MD [address] [place], [place] [address] PCP - General Internal Medicine 11/30/20 Nghia Harvey MD, [address] [place] [address] Physician Radiation Oncology 07/10/21 Machine Assembler Supervisor Relationship Specialty Start Date End Date Inocente Nichols MD [address] [place], [place] [address] PCP - General Internal Medicine 11/30/20 Nghia Harvey MD, [address] [place], [place] [address] [phone] Physician Radiation Oncology 07/10/21 Machine Assembler Supervisor Relationship Specialty Start Date End Date Inocente Nichols MD [address] [place] [address] PCP - General Internal Medicine 11/30/20 Nghia Harvey MD, [address] [place] [address] Physician Radiation Oncology 07/10/21 Machine Assembler Supervisor Relationship Specialty Start Date End Date Inocente Nichols MD [address] [place], [place] [address] PCP - General Internal Medicine 11/30/20 Nghia Harvey MD, [address] [place], [place] [address] [phone] Physician Radiation Oncology 07/10/21 Machine Assembler Supervisor Relationship Specialty Start Date End Date Inocente Nichols MD [address] [place], [place] [address] PCP - General Internal Medicine 11/30/20 Nghia Harvey MD, [address] [place] [address] Physician Radiation Oncology 07/10/21 Machine Assembler Supervisor Relationship Specialty Start Date End Date Inocente Nichols MD [address] [facility] [place] [address] PCP - General Internal Medicine 11/30/20 Nghia Harvey MD, [address] [place], [place] [address] Physician Radiation Oncology 07/10/21 (unrecognized sect ion and content) No Status Records FoundNo Status Records Found INFORMATION SOURCE (unrecogn ized section and content) DATE CREATED AUTHOR AUTHOR'S ORGANIZ ATION 06/20/2023 [facility] FOR RECORDS PERTAINING TO PATIENTS WHO ARE OR HAVE BEEN ENROLLED IN A CHEMICAL DEPENDENCY/SUBSTANCEABUSE PROGRAM, SOME INFORMATION MAY BE OMITTED. This clinical summary was aggregated from multiple sources. Caution should be exercised in using it in the provision of clinical care. This summary normalizes information from multiple sources, and as a consequence, information in this document may materially change the coding, format and clinical context of patient data. In addition, data may be omitted in some cases. CLINICAL DECISIONS SHOULD BE BASED ON THE PRIMARY CLINICAL RECORDS. [employer] provides no warranty or guarantee of the accuracy or completeness of information in this document.
== END ==
LOC: OLS.SW 05:00
PROVIDERS: PCP Family Medicine; Visit Provider Family Medicine
DX: F10.20 Alcohol dependence, uncomplicated (principal)
CPT/HCPCS: 36415; 82140

== ENCOUNTER → 2023-07-16 | Outpatient (REF) | payer MEDICARE, MEDICAID, SELFPAY | LOC: OLS.SW 04:00 | PROVIDERS: PCP Family Medicine; Referring Provider Family Medicine; Visit Provider Family Medicine | DX: F10.20 Alcohol dependence, uncomplicated (principal) | CPT/HCPCS: 36415; 82140 ==

== ENCOUNTER → 2023-07-17 | Outpatient (REF) | payer MEDICARE, MEDICAID, SELFPAY ==
--- OUTSIDE RECORDS SUMMARY | 2023-07-17 06:48 | XMS RPT_ITS | CCD ---
Author Name Unknown Address [address] [place] [address] Organization [facility] Care Team Providers Care Waist Cutter Name Role Phone Simone RUBIN, Inocente Curtis Primary Care Provider [phone] Wes RUBIN MD, Nghia Unavailable WES RUBIN, [...] to adverse reactions to drug 04-01-2023 Unknown [facility] Work Phone: Medications Current Medications Medication Drug [...] Drug Class(es) Dates Sig (Normalized) Sig (Original) [id number] 200 actuat albuterol 0.09 mg/actuat metered dose [...] Coronary atherosclerosis; Translations: [Atherosclerotic heart disease of [place] coronary artery without angina pectoris] Onset: 1 [...] 98.91 [degF] Inocente Nichols MD Work Phone: [facility] 04-21-2023 09:53-0400 Diastolic blood pressure 62 mm[Hg] Inocente Nichols MD Work Phone: [facility] 04-21-2023 09:53-0400 Heart rate 48 /min Inocente Nichols MD Work Phone: [facility] 04-21-2023 09:53-0400 Respiratory rate 24 /min Inocente Nichols MD Work Phone: [facility] 04-21-2023 09:53-0400 SaO2% (BldA) [Mass fraction] 94 % Inocente Nichols MD Work Phone: [facility] 04-21-2023 09:53-0400 Systolic blood pressure 136 mm[Hg] Inocente Nichols MD Work Phone: [facility] 02-27-2023 11:37-0400 Body temperature 98.4 [degF] Inocente Nichols MD Work Phone: [facility] 02-27-2023 11:37-0400 Diastolic blood pressure 69 mm[Hg] Inocente Nichols MD Work Phone: [facility] 02-27-2023 11:37-0400 Heart rate 46 /min Inocente Nichols MD Work Phone: [facility] 02-27-2023 11:37-0400 Respiratory rate 20 /min Inocente Nichols MD Work Phone: [facility] 02-27-2023 11:37-0400 Systolic blood pressure 136 mm[Hg] Inocente Nichols MD Work Phone: [facility] 11-13-2022 18:52-0400 Body temperature 98.49 [degF] Inocente Nichols MD Work Phone: [facility] 11-13-2022 18:52-0400 Body weight 108.41 kg Inocente Nichols MD Work Phone: [facility] 11-13-2022 18:52-0400 Diastolic blood pressure 70 mm[Hg] Inocente Nichols MD Work Phone: [facility] 11-13-2022 18:52-0400 Heart rate 56 /min Inocente Nichols MD Work Phone: [facility] 11-13-2022 18:52-0400 Respiratory rate 24 /min Inocente Nichols MD Work Phone: [facility] 11-13-2022 18:52-0400 SaO2% (BldA) [Mass fraction] 92 % Inocente Nichols MD Work Phone: [facility] 11-13-2022 18:52-0400 Systolic blood pressure 146 mm[Hg] Inocente Nichols MD Work Phone: [facility] 11-10-2022 15:09-0400 Diastolic blood pressure 78 mm[Hg] Nghia Harvey MD, MD Work Phone: [facility] 11-10-2022 15:09-0400 Heart rate 49 /min Nghia Harvey MD, MD Work Phone: [facility] 11-10-2022 15:09-0400 Systolic blood pressure 180 mm[Hg] Nghia Harvey MD, MD Work Phone: [facility] 11-10-2022 15:06-0400 Body temperature 97.81 [degF] Nghia Harvey MD, MD Work Phone: [facility] 11-10-2022 15:06-0400 Respiratory rate 24 /min Nghia Harvey MD, MD Work Phone: [facility] 11-10-2022 15:06-0400 SaO2% (BldA) [Mass fraction] 97 % Nghia Harvey MD, MD Work Phone: [facility] 08-11-2022 14:18-0500 Diastolic blood pressure 62 mm[Hg] Inocente Nichols MD Work Phone: [facility] 08-11-2022 14:18-0500 Heart rate 64 /min Inocente Nichols MD Work Phone: [facility] 08-11-2022 14:18-0500 Systolic blood pressure 132 mm[Hg] Inocente Nichols MD Work Phone: [facility] 08-11-2022 14:13-0500 Body temperature 97.5 [degF] Inocente Nichols MD Work Phone: [facility] 08-11-2022 14:13-0500 Body weight 112.95 kg Inocente Nichols MD Work Phone: [facility] 08-11-2022 14:13-0500 Respiratory rate 20 /min Inocente Nichols MD Work Phone: [facility] 07-16-2022 15:41-0500 Diastolic blood pressure 53 mm[Hg] Inocente Nichols MD Work Phone: [facility] 07-16-2022 15:41-0500 Heart rate 53 /min Inocente Nichols MD Work Phone: [facility] 07-16-2022 15:41-0500 Systolic blood pressure 129 mm[Hg] Inocente Nichols MD Work Phone: [facility] 07-16-2022 15:35-0500 Body temperature 97.9 [degF] Inocente Nichols MD Work Phone: [facility] 07-16-2022 15:35-0500 Body weight 114.76 kg Inocente Nichols MD Work Phone: [facility] 07-16-2022 15:35-0500 Respiratory rate 24 /min Inocente Nichols MD Work Phone: [facility] 07-16-2022 15:35-0500 SaO2% (BldA) [Mass fraction] 97 % Inocente Nichols MD Work Phone: [facility] 05-30-2022 13:33-0500 Body weight 111.58 kg Inocente Nichols MD Work Phone: [facility] 03-19-2022 13:21-0400 Diastolic blood pressure 69 mm[Hg] Inocente Nichols MD Work Phone: [facility] 03-19-2022 13:21-0400 Heart rate 55 /min Inocente Nichols MD Work Phone: [facility] 03-19-2022 13:21-0400 Systolic blood pressure 127 mm[Hg] Inocente Nichols MD Work Phone: [facility] 03-19-2022 13:15-0400 Body temperature 97.11 [degF] Inocente Nichols MD Work Phone: [facility] 03-19-2022 13:15-0400 Body weight 113.53 kg Inocente Nichols MD Work Phone: [facility] 03-19-2022 13:15-0400 Respiratory rate 24 /min Inocente Nichols MD Work Phone: [facility] 03-19-2022 13:15-0400 SaO2% (BldA) [Mass fraction] 94 % Inocente Nichols MD Work Phone: [facility] 02-27-2022 15:38-0400 Heart rate 49 /min Juancho Carpenter MD Work Phone: [facility] 02-27-2022 15:38-0400 Respiratory rate 18 /min Juancho Carpenter MD Work Phone: [facility] 02-27-2022 15:38-0400 SaO2% (BldA) [Mass fraction] 96 % Juancho Carpenter MD Work Phone: [facility] 02-06-2022 10:08-0400 Diastolic blood pressure 72 mm[Hg] Inocente Nichols MD Work Phone: [facility] 02-06-2022 10:08-0400 Heart rate 48 /min Inocente Nichols MD Work Phone: [facility] 02-06-2022 10:08-0400 Systolic blood pressure 156 mm[Hg] Inocente Nichols MD Work Phone: [facility] 02-06-2022 10:03-0400 Body temperature 97.3 [degF] Inocente Nichols MD Work Phone: [facility] 02-06-2022 10:03-0400 Body weight 117.75 kg Inocente Nichols MD Work Phone: [facility] 02-06-2022 10:03-0400 Respiratory rate 28 /min Inocente Nichols MD Work Phone: [facility] 02-06-2022 10:03-0400 SaO2% (BldA) [Mass fraction] 94 % Inocente Nichols MD Work Phone: [facility] 01-22-2022 13:44-0400 Body temperature 97.5 [degF] Valorie Allan APRN.CNP Work Phone: [facility] 01-22-2022 13:44-0400 Diastolic blood pressure 86 mm[Hg] Valorie Older COLLECTION AGENT.SEASONING MIXER Work Phone: [facility] 01-22-2022 13:44-0400 Heart rate 47 /min Valorie Older COLLECTION AGENT.SEASONING MIXER Work Phone: [facility] 01-22-2022 13:44-0400 Respiratory rate 22 /min Valorie Older COLLECTION AGENT.SE[employer]ONING MIXER Work Phone: [facility] 01-22-2022 13:44-0400 SaO2% (BldA) [Mass fraction] 96 % Valorie Older COLLECTION AGENT.SEASONING MIXER Work Phone: [facility] 01-22-2022 13:44-0400 Systolic blood pressure 146 mm[Hg] Valorie Older COLLECTION AGENT.SEASONING MIXER Work Phone: [facility] 01-15-2022 16:58-0400 Body temperature 97.59 [degF] Valorie Older COLLECTION AGENT.SEASONING MIXER Work Phone: [facility] 01-15-2022 16:58-0400 Body weight 118.84 kg Valorie Older COLLECTION AGENT.SEASONING MIXER Work Phone: [facility] 01-15-2022 16:58-0400 Diastolic blood pressure 68 mm[Hg] Avlorie Older COLLECTION AGENT.SEASONING MIXER Work Phone: [facility] 01-15-2022 16:58-0400 Heart rate 50 /min Valorie Older COLLECTION AGENT.SEASONING MIXER Work Phone: [facility] 01-15-2022 16:58-0400 Respiratory rate 24 /min Valorie Older COLLECTION AGENT.SEASONING MIXER Work Phone: [facility] 01-15-2022 16:58-0400 SaO2% (BldA) [Mass fraction] 94 % Valorie Older COLLECTION AGENT.SEASONING MIXER Work Phone: [facility] 01-15-2022 16:58-0400 Systolic blood pressure 138 mm[Hg] Valorie Older COLLECTION AGENT.SEASONING MIXER Work Phone: [facility] 01-09-2022 14:33-0400 Heart rate 48 /min [place] Carpenter MD Work Phone: [facility] 01-09-2022 14:33-0400 Respiratory rate 18 /min Juancho Carpenter MD Work Phone: [facility] 01-09-2022 14:33-0400 SaO2% (BldA) [Mass fraction] 98 % Juancho Carpenter MD Work Phone: [facility] 11-29-2021 16:46-0400 Body height 180.3 cm Inocente Nichols MD Work Phone: [facility] 11-29-2021 16:46-0400 Body temperature 98.2 [degF] Inocente Nichols MD Work Phone: [facility] 11-29-2021 16:46-0400 Diastolic blood pressure 66 mm[Hg] Inocente Nichols MD Work Phone: [facility] 11-29-2021 16:46-0400 Heart rate 48 /min Inocente Nichols MD Work Phone: [facility] 11-29-2021 16:46-0400 Respiratory rate 18 /min Inocente Nichols MD Work Phone: [facility] 11-29-2021 16:46-0400 SaO2% (BldA) [Mass fraction] 95 % Inocente Nichols MD Work Phone: [facility] 11-29-2021 16:46-0400 Systolic blood pressure 134 mm[Hg] Inocente Nichols MD Work Phone: [facility] 11-14-2021 11:45-0400 Heart rate 47 /min Juancoh Carpenter MD Work Phone: [facility] 11-14-2021 11:45-0400 Respiratory rate 17 /min Juancho Carpenter MD Work Phone: [facility] 11-14-2021 11:45-0400 SaO2% (BldA) [Mass fraction] 94 % Juancho Carpenter MD Work Phone: [facility] 11-07-2021 08:04-0400 Body temperature 98.4 [degF] Edvin Cosby APRN.[facility] Work Phone: [facility] 11-07-2021 08:04-0400 Body weight 117.03 kg Edvin Cosby APRN.[facility] Work Phone: [facility] 11-07-2021 08:04-0400 Diastolic blood pressure 76 mm[Hg] Edvin Cosby APRN.[facility] Work Phone: [facility] 11-07-2021 08:04-0400 Heart rate 61 /min Edvin Cosby APRN.[facility] Work Phone: [facility] 11-07-2021 08:04-0400 Respiratory rate 18 /min Edvin Cosby APRN.[facility] Work Phone: [facility] 11-07-2021 08:04-0400 SaO2% (BldA) [Mass fraction] 94 % Edvin Cosby APRN.[facility] Work Phone: [facility] 11-07-2021 08:04-0400 Systolic blood pressure 128 mm[Hg] Edvin Cosby APRN.[facility] Work Phone: [facility] Encounters Encounter Date Encounter Type Care Provider Facility Start: 06-17-2023 Telephone encounter Nghia Braxton MD Work Phone: Radiation Oncology Procedures Date Procedure Procedure Detail Performing Clinician Start: 12-26-2022 Lipid 1996 panel - S ryan or Plasma Genesis Wang Work Phone: Start: 08-11-2022 PFIZER-BIONTExplore Engage COVI D-19 BIVALENT BOOSTER VACCINE, AGE 12+ [...] panel - Serum or Plasma Lipid Screening [facility] Start: 12-27-2027 LIPID SCREEN LIPID SCREEN [facility] Start: 12-06-2026 LIPID SCREEN LIPID SCREEN [facility] Start: 11-20-2026 LIPID SCREEN LIPID SCREEN [facility] Start: 02-25-2026 DIABETES SCREEN DIABETES SCREEN [facility] Start: 02-25-2026 Diabetes Screening Diabetes Screening [facility] Start: 01-21-2026 DIABETES SCREEN DIABETES SCREEN [facility] Start: 12-26-2025 DIABETES SCREEN DIABETES SCREEN [facility] Start: 12-18-2025 Urine microalbumin profile DTaP,Tdap,Td Vaccine (3 - Td or Tdap) [facility] Start: 05-30-2025 DIABETES SCREEN DIABETES SCREEN [facility] Start: 03-19-2025 DIABETES SCREEN DIABETES SCREEN [facility] Start: 02-06-2025 DIABETES SCREEN DIABETES SCREEN [facility] Start: 12-06-2024 DIABETES SCREEN DIABETES SCREEN [facility] Start: 11-20-2024 DIABETES SCREEN DIABETES SCREEN [facility] Start: 04-21-2024 Annual PCP Team Chronic Disease Visit Annual PCP Team Chronic Disease Visit [facility] Start: 02-28-2024 ANNUAL PCP TEAM CHRONIC DISEASE VISIT ANNUAL PCP TEAM CHRONIC DISEASE VISIT [facility] Start: 01-30-2024 ANNUAL PCP TEAM CHRONIC DISEASE VISIT ANNUAL PCP TEAM CHRONIC DISEASE VISIT [facility] Start: 01-30-2024 BP CONTROLLED (<130/80) BP CONTROLLED (<130/80) [facility] Start: 12-27-2023 ANNUAL PCP TEAM CHRONIC DISEASE VISIT ANNUAL PCP TEAM CHRONIC DISEASE VISIT [facility] Start: 12-27-2023 BP CONTROLLED (<130/80) BP CONTROLLED (<130/80) [facility] Start: 12-27-2023 Hepatitis B surface antibody level LDL CHOLESTEROL [facility] Start: 11-14-2023 ANNUAL PCP TEAM CHRONIC DISEASE VISIT ANNUAL PCP TEAM CHRONIC DISEASE VISIT [facility] Start: 09-24-2023 Urine microalbumin profile [facility] Start: 08-19-2023 End: 07-16-2024 Ct thorax w/o contrast material CT CHEST WO IVCON Radiology Routine Malignant neoplasm of unspecified part of unspecified bronchus or lung (HCC) Expected: 08/19/2023, Expires: 07/16/2024 [facility] Work Phone: Immunizations Immunization Date Immunization Notes Care Provider Zainab loaiza 08-11-2022 COVID-19 booster vaccine, age 12+ yr, bivalent (PFIZER-BIONTECH) Inocente Nichols MD Work Phone: [facility] Work Phone: 07-16-2022 influenza, high-dose , quadrivalent vaccine (FLUZONE HIGH DOSE QUADRIVALENT) Inocente Nichols MD Work Phone: [facility] Work Phone: 07-16-2022 influenza virus vacc ine, unspecified formulation Genesis Soaresstephanie Work Phone: [facility] 03-27-2021 influenza, high-dose , quadrivalent vaccine (FLUZONE HIGH DOSE QUADRIVALENT) Nghia Harvey MD, MD Work Phone: [facility] Work Phone: 03-27-2021 pneumococcal polysaccharide vaccine, 23 valent Nghia Harvey MD, MD Work Phone: [facility] Work Phone: 05-23-2016 pneumococcal conjuga te vaccine, 13 valent Nghia Harvey MD, MD Work Phone: [facility] Work Phone: 09-23-2013 tetanus toxoid, redu brianne diphtheria toxoid, and acellular pertussis vaccine, adsorbed Nghia Harvey MD, MD Work Phone: [facility] Work Phone: Payers Date Payer Category Payer Medicaid [facility] MEDICAID MYC ARE [facility] MEDICAID [id number] 2020-Present [phone] [address] [place] [address] Medicaid [id number] 2020 Medicare [id number] 2020 Medicare [facility] MEDICARE MYC ARE UHC MEDICARE [id number] 2020-Present [phone] [address] [place] [address] Medicare [id number] 2020 Medicare [id number] Social History Date Type Detail Facility Start: 07-29-2021 End: 03-19-2022 Tobacco smoking status NHIS Smokes tobacco daily [facility] History of tobacco use Cigarette Smoker C [facility] Start: 10-02-2021 End: 07-16-2022 Alcohol intake Ex-drinker (finding) [facility] Start: 07-29-2021 End: 03-19-2022 Tobacco Comment 3-4 cigarettes/day 07/29/21 [facility] Start: 1950 Sex Assigned At Not on file C [facility] Start: 09-22-2021 End: 05-01-2022 Exposure to SARS-CoV-2 (event) Not sure [facility] Start: 07-29-2021 End: 12-12-2022 Cigarettes smoked current (pack per day) - Reported 2 [facility] Work Phone: Start: 07-29-2021 End: 03-19-2022 Tobacco use and exposure Smokeless tobacco non-user [facility] Start: 03-19-2022 History SDOH Alcohol Frequency 5 [facility] Start: 03-19-2022 History SDOH Alcohol Std Drinks 2 [facility] Start: 03-19-2022 History SDOH Alcohol Binge 1 [facility] Start: 03-19-2022 History SDOH Alcohol Comment 4 cans beer per day. [facility] Start: 08-11-2022 End: 01-29-2023 Alcohol intake Current drinker of alcohol (finding) [facility] Start: 08-11-2022 Alcohol Comment 2 drinks per day [facility] Start: 03-19-2022 End: 12-12-2022 Alcohol Use Disorder Identification Test - Consumption [AUDIT-C] [facility] Work Phone: How often to you hav e a drink containing alcohol? 4 or more times a week [facility] Work Phone: How many standard dr inks containing alcohol do you have on a typical day? 3 or 4 [facility] Work Phone: How often do you hav e 6 or more drinks on 1 occasion? Never [facility] Work Phone: Adult Depression Scr eening Assessment 0 [facility] Work Phone: Start: 04-01-2023 End: 04-21-2023 Alcohol intake Lifetime non-drinker (finding) [facility] Clinical Notes 03-14-2021 to 06-17-2023 Telephone Encounter - Rachel Hernandez - 06/17/2023 3:11 PM ESTTelephone Encounter - Allyson Patterson - 06/17/2023 1:50 PM Nghia Cohn MD, - 06/17/2023 1:13 PM ESTPatient Instructions Note Date & Type Note Facility 06-17-2023 Note HNO ID: [id number] Author: Nghia Harvey MD, MD Service: ? [...] upper lobe treated with SBRT at the [facility] in 03/2020. He is doing well [...] 5-10 minutes including documentation Nghia Harvey MD [facility] 06-17-2023 Miscellaneous Notes Scheduled with patient. Patient requested to have CT last week of August. Summary: PER CC'D CHART Images from the original note were not included. Nghia Harvey MD, P Wstr Hem/Onc Psr Please call him and schedule CT chest in two months and then a phone visit with me. Thanks. documented in this encounter [facility] 06-17-2023 History of Present illness Narrative AMBULATORY [...] upper lobe treated with SBRT at the [facility] in 03/2020. He is doing well [...] Nghia Harvey MD documented in this encounter [facility] 06-10-2023 Note HNO ID: [id number] Author: Catrachita Perdomo RT(R) Service: ? Author Type: Rn Bariatric Type: Progress Notes Filed: 06/10/2023 1:18 PM [...] RT Brennen(Kimberly) June 10, 2023 1:18 PM [facility] 06-10-2023 History of Present illness Narrative Radiology [...] 2023 1:18 PM documented in this encounter [facility] 04-21-2023 Note HNO ID: [id number] Author: Ceci Santamaria LPN Service: ? Author Type: ? Type: Progress Notes Filed: 04/21/2023 11:55 AM Note Text: Ear lavage performed on the left ear with warm water/h202. Moderate amount of cerumen flushed from ear. TM is visible and intact post procedure. Patient tolerated procedure well and had no complaints during or after the procedure. Ceci Santamaria ERIN [facility] 04-21-2023 Note HNO ID: [id number] Author: Inocente Nichols MD Service: ? Author Type: Physician Type: Progress Notes Filed: 04/21/2023 11:55 AM Note Text: This note was created using Seesaw. Subjective Kelly Damian is a 73 year old male was here for follow up. He was currently in [place] under the care of Dr. Pollard since discharge from [facility] in January for left leg wound and [...] Use Disorder Lymphedema Coronary Artery Disease Involving [place] Coronary Artery Urinary Incontinence Gastroesophageal Reflux Disease [...] impacted cerumen. Cardiovascular: (more content not included)... [facility] 04-21-2023 History of Present illness Narrative Ear lavage performed on the left ear with warm water/h202. Moderate amount of cerumen flushed from ear. TM is visible and intact post procedure. Patient tolerated procedure well and had no complaints during or after the procedure. Ceci Santamaria LPN This note was created using Seesaw. Subjective Kelly Damian is a 73 year old male was here for follow up. He was currently in [place] under the care of Dr. Pollard since discharge from [facility] in January for left leg wound and [...] Use Disorder Lymphedema Coronary Artery Disease Involving [place] Coronary Artery Urinary Incontinence Gastroesophageal Reflux Disease [...] Inocente Nichols MD documented in this encounter [facility] 04-21-2023 Instructions Inocente Nichols MD - 04/21/2023 10:17 AM EDT documented in this encounter [facility] 04-01-2023 Note HNO ID: [id number] Author: Genesis Wang Service: ? Author Type: [...] of b/l foot. He currently resides in [facility] but is expecting discharge shortly. He states [...] healing 05/20/2021 COPD (chronic obstructive pulmonary disease) ([facility]) 11/30/2020 Coronary artery disease involving [place] coronary artery 11/30/2020 COVID-19 05/10/2022 Esophageal stenosis Essential hypertension Falling episodes 05/20/2021 Gastroesophageal reflux disease without esophagitis 11/30/2020 History of colon polyps 03/27/2021 Lymphedema 11/30/2020 Mixed hyperlipidemia Other and unspecified hyperlipidemia Paroxysmal A-fib ([facility]) Pressure injury of sacral region, stage 2 ([facility]) 11/29/2021 Tobacco use disorder 11/30/2020 Uncomplicated alcohol dependence ([facility]) 03/19/2022 Current Outpatient Medications Medication Sig Menthol-Zinc [...] Laterality Date COLONOSCOPY 2005 10-15 years ago, [place], polyps x [address] BIOPSY - LUNG Left 01/27/2020 CT BIOPSY - LUNG Right 07/04/2021 [facility] 1ST INGUN HRNA AGE 3 YRS/> REDUCIBLE 07/20/2000 Hernia repair, inguinal, right TOTAL HIP REPLACEMENT Right 05/22/2021 [facility] FAMILY HISTORY Problem Relation Age of Onset Arthritis Mother Cancer Mother Cancer Father Social History Tobacco Use Smoking status: Every Day Packs/day: 2.00 (more content not included)... [facility] 04-01-2023 Note HNO ID: [id number] Author: Abi Sage LPN Service: ? Author Type: LICENSED NURSE Type: Progress Notes Filed: 04/01/2023 4:00 PM Note Text: AMB ROOMING INTAKE FLOWSHEET DATA Patient presents with: Left Foot - nail care , New Right Foot - New, nail care Abi Sage LPN [facility] 04-01-2023 History of Present illness Narrative Consultation [...] of b/l foot. He currently resides in [facility] but is expecting discharge shortly. He states his nails are long and thick and he would like to have them debrided Patient denies history of diabetes PAIN EVALUATION No data found in the last 1 encounters. No results found for: HBA1C PCP: Inocente Nichols MD PAST MEDICAL HISTORY Diagnosis Date Adenocarcinoma of left lung ([facility]) 01/27/2020 Adenocarcinoma of right lung ([facility]) 07/04/2021 Benign prostatic hyperplasia with urinary frequency 11/30/2020 Bipolar disorder ([facility]) 11/30/2020 Chronic bilateral low back pain 11/30/2020 Chronic hip pain, bilateral 11/30/2020 Closed fracture of right hip with routine healing 05/20/2021 COPD (chronic obstructive pulmonary disease) ([facility]) 11/30/2020 Coronary artery disease involving [place] coronary artery 11/30/2020 COVID-19 05/10/2022 Esophageal stenosis Essential hypertension Falling episodes 05/20/2021 Gastroesophageal reflux disease without esophagitis 11/30/2020 History of colon polyps 03/27/2021 Lymphedema 11/30/2020 Mixed hyperlipidemia Other and unspecified hyperlipidemia Paroxysmal A-fib ([facility]) Pressure injury of sacral region, stage 2 ([facility]) 11/29/2021 Tobacco use disorder 11/30/2020 Uncomplicated alcohol dependence ([facility]) 03/19/2022 Current Outpatient Medications Medication Sig Menthol-Zinc [...] Wang DPM Podiatry [address] [facility] [address] Dept: [phone] Dept AMB ROOMING INTAKE FLOWSHEET DATA Patient presents with: Left Foot - nail care , New Right Foot - New, nail care Abi Sage LPN documented in this encounter [facility] 03-02-2023 Miscellaneous Notes Luli/AMY w/SNF notified of below response. Ceci Santamaria LPN Patient seen yesterday and reports he will continue stay at [place] for a few more weeks. Okay referral [...] is wanting referral to be sent to [facility]. ([facility] will not see patient for daily wound care). Zully Goss RN documented in this encounter [facility] 02-27-2023 Note HNO ID: [id number] Author: Inocente Nichols MD Service: ? Author Type: Physician Type: Progress Notes Filed: 03/01/2023 12:04 PM Note Text: This note was created using Seesaw. Subjective Kelly Damian is a 72 year old male here with his sister. He was currently at [facility] but still came here for follow up and labs as previously planned in the outpatient setting. He was admitted again 02/03-02/05/23 for left leg wound, left leg cellulitis, hyponatremia, and compression fractures of L1-L2. This time he agreed to [place] stay, but only till his wounds improved. [...] Use Disorder Lymphedema Coronary Artery Disease Involving [place] Coronary Artery Urinary Incontinence Gastroesophageal Reflux Disease [...] mouth. magnesium hydroxide (more content not included)... [facility] 02-27-2023 History of Present illness Narrative This note was created using Seesaw. Subjective Kelly Damian is a 72 year old male here with his sister. He was currently at [facility] but still came here for follow up and labs as previously planned in the outpatient setting. He was admitted again 02/03-02/05/23 for left leg wound, left leg cellulitis, hyponatremia, and compression fractures of L1-L2. This time he agreed to [place] stay, but only till his wounds improved. [...] Use Disorder Lymphedema Coronary Artery Disease Involving [place] Coronary Artery Urinary Incontinence Gastroesophageal Reflux Disease [...] ICD9: 799.3, ICD10: R53.81 At risk for keno terminal operator care need. 5. Lung nodules - ICD9: 793.19, ICD10: R91.8 Radiation oncology recommended bronchoscopy. He used to see [place]. - CONSULT TO PULMONARY MEDICINE 6. Adenocarcinoma of right lung (HCC) - ICD9: 162.9, ICD10: C34.91 ddddddddddddddddddddddddddddd - CONSULT TO PULMONARY MEDICINE 7. Adenocarcinoma of left lung (HCC) - ICD9: 162.9, ICD10: C34.92 - CONSULT TO PULMONARY MEDICINE 8. Hyponatremia - ICD9: 276.1, ICD10: E87.1 Improved. 9. Anemia, unspecified type - ICD9: 285.9, ICD10: D64.9 Monitor. Inocente Nichols MD documented in this encounter [facility] 02-19-2023 Miscellaneous Notes I spoke with Liliam [...] about Pulmonology referral. documented in this encounter [facility] 02-18-2023 Note HNO ID: [id number] Author: Nghia Harvey MD, MD Service: ? [...] upper lobe treated with SBRT at the [facility] in 03/2020. He had recent multiple episodes of fall and now he is at the senior living facility. Post-SBRT CT chest on 02/11/23 showed [...] nodule. Plan: I recommended referral to his stone sawyer for consideration of bronchoscopy and biopsy. However, he declined it. He is at the senior living home now recuperating from recent multiple falls and he doesn't want to any work-ups at this point. He wants to have a follow-up CT scan in 3 months instead. I will get CT chest in 3 months as he wishes. Total Time Spent: 5-10 minutes including documentation Nghia Harvey MD [facility] 02-18-2023 History of Present illness Narrative AMBULATORY [...] upper lobe treated with SBRT at the [facility] in 03/2020. He had recent multiple episodes of fall and now he is at the senior living facility. Post-SBRT CT chest on 02/11/23 showed [...] nodule. Plan: I recommended referral to his stone sawyer for consideration of bronchoscopy and biopsy. However, he declined it. He is at the senior living home now recuperating from recent multiple falls and he doesn't want to any work-ups at this point. He wants to have a follow-up CT scan in 3 months instead. I will get CT chest in 3 months as he wishes. Total Time Spent: 5-10 minutes including documentation Nghia Harvey MD documented in this encounter [facility] 02-11-2023 Note HNO ID: [id number] Author: Catrachita Perdomo RT(R) Service: ? Author Type: Rn Bariatric Type: Progress Notes Filed: 02/11/2023 2:28 PM [...] RT Brennen(R) February 11, 2023 2:28 PM [facility] 02-03-2023 Miscellaneous Notes Okay. Samanta Nurse from [facility] HH at pt's home for initial consult [...] ER. Liliam call back to report on [facility] discharge papers it has for pt to stop taking sodium chloride. Liliam is asking if pcp wants pt to stop taking this. Destiney Vick LPN 1) Assist with [facility]. 2) Clean wound with peroxide. Normal [...] notify patient. Inocente Nichols MD Liliam from [facility] calls to let provider know that patient is now agreeable to go to rehab as discussed at previous appointment. Patient is not able to get around well and would not be able to come in for appointments. Liliam reports patient hasn't checked with insurance in regards to coverage for rehab. Liliam reports they do have a social worker delinquency prevention that could look into options for placement. Zully Goss RN Paulina nurse from [facility] calls to report that patient continues to [...] yet. Called and spoke with Liliam at [facility] and Liliam states that they just opened home care on patient today. Liliam states that senior living should see patient today. residential should call provider for wound care orders. What wound care does provider want done for patient's legs? Does provider want to send in prescription for antibiotics for left leg infection? Does patient need to come into office to assess leg? Please review and advise, Елена Davis RN documented in this encounter [facility] 02-03-2023 Miscellaneous Notes Please see earlier TE from 02/03 for documentation. documented in this encounter [facility] 01-29-2023 Note HNO ID: [id number] Author: Inocente Nichols MD Service: ? Author Type: Physician Type: Progress Notes Filed: 01/31/2023 1:29 AM Note Text: This note was created using Seesaw. Subjective Kelly Damian is a 72 year [...] Use Disorder Lymphedema Coronary Artery Disease Involving [place] Coronary Artery Urinary Incontinence Gastroesophageal Reflux Disease [...] three times daily. Taking 4 times daily. [facility] ED 01/21/23.) No current facility-administered medications for [...] murmur heard. No (more content not included)... [facility] 01-22-2023 Miscellaneous Notes Inocente, Was called at 1100 pm last night( January 21) from [facility] regarding your patient with a Na level 117 Reached out to the contact number immediately and contacted Liliam Schuler RN who was listed as a contact for the patient at [phone]. She assured me that she would contact your patient and have him seen in the [facility] ER for assessment and decisions regarding possible inpatient care The patient was in ER [facility] in the day on Thursday the she though but she was unsure whether the patient was admitted . FYI for you that this lab abnormality was dealt with and contact was made for the patient to alert him to seek medical attention. Thanks , Lee Monroy DO documented in this encounter [facility] 01-14-2023 Miscellaneous Notes ASSESSMENT/PLAN: 1. Lymphedema - ICD9: 457.1, ICD10: I89.0 - METOLAZONE 10 MG TABLET - CONSULT TO NON-[facility] FACILITY - BASIC METABOLIC PNL Inocente Nichols MD [facility] does not draw labs, Patient has [...] please phone pharmacy and notify patient. Can [facility] draw a BMP in 1 week. Consult the [facility]. Inocente Nichols MD Liliam with [facility] calls to let provider know that patient [...] Zully Goss RN documented in this encounter [facility] 01-06-2023 Miscellaneous Notes med update 11/13/2022 Patient [...] advise. Vicky Hollins documented in this encounter [facility] 12-26-2022 Note HNO ID: [id number] Author: Inocente Nichols MD Service: ? Author Type: Physician Type: Progress Notes Filed: 12/27/2022 2:34 PM Note Text: This note was created using [employer]. Subjective Patient presents with: Recheck: 6 week [...] Use Disorder Lymphedema Coronary Artery Disease Involving [place] Coronary Artery Urinary Incontinence Gastroesophageal Reflux Disease [...] and regular rhythm (more content not included)... [facility] 12-12-2022 Note HNO ID: [id number] Author: Nghia Harvey MD, MD Service: ? [...] upper lobe treated with SBRT at the [facility] in 03/2020. He is doing well without any specific new complaints. He denies any chest pain. Baseline respiratory symptoms without significant acute changes. Data Reviewed: None. Assessment: No significant acute complications from recent SBRT. Plan: I Will get post-treatment CT chest in two months. Total Time Spent: 5-10 minutes including documentation Nghia Harvey MD [facility] 12-12-2022 History of Present illness Narrative AMBULATORY [...] upper lobe treated with SBRT at the [facility] in 03/2020. He is doing well without any specific new complaints. He denies any chest pain. Baseline respiratory symptoms without significant acute changes. Data Reviewed: None. Assessment: No significant acute complications from recent SBRT. Plan: I Will get post-treatment CT chest in two months. Total Time Spent: 5-10 minutes including documentation Nghia Harvey MD documented in this encounter [facility] 12-01-2022 Miscellaneous Notes Noted Valorie Allan APRN.CNP Teena from [facility] calls to report that today patient's pulse was 47. Patient was asymptomatic. Елена Davis RN documented in this encounter [facility] 11-27-2022 Miscellaneous Notes YOAN Medina @ [facility] calling to let PCP know patient had one time visit today for evaluation and equipment set up. Patient declined further OT services. Says he will work with PT. Carol reports patient's BP was 136/60 today with heart rate 45-49 at rest. Patient told her he is scheduled to see Cardiology at end of the month. Esther Dean, RN documented in this encounter [facility] 11-26-2022 Miscellaneous Notes Order called back to [facility]. Continue barrier cream. Yasmeen notified of below response, verbalized understanding. Patient has bilateral rash on buttocks, two small 1.5 x 0.4, nondraining, no redness, Asking for order to continue to use a barrier cream. Ceci Santamaria LPN Okay for below orders. With a history of heart disease it is recommended to take ASA 81 mg daily, okay to continue Valorie Allan APRN.[facility] nurse Yasmeen started home care with pt today. Freq will be 2X wk X 4 wks & 1X wk X 1wk for wound care. VO? Yasmeen states she found asa 81 mg in pts meds & is asking if this is something he should be taking? It is not on his med list. Please advise. Radha Llamas LPN documented in this encounter [facility] 11-24-2022 Miscellaneous Notes Pt was seen in the office. Nereyda Sheriff LPN Liliam with [facility] called with a pt update. They see pt weekly with to help with his medications. Liliam reports pt is declining. He has not [...] Nereyda Sheriff LPN documented in this encounter [facility] 11-18-2022 Miscellaneous Notes Liliam with [facility] calls to request last OV for pt to be faxed to: [phone]. OV notes faxed as requested. Destiney Vick LPN documented in this encounter [facility] 11-17-2022 Miscellaneous Notes Information provided & faxed back. Ceci Santamaria LPN [place] @ [facility] calling with request home health orders and demographics be faxed to [phone]. She says the note that was sent showing Assessment/Plan is not an order. She says she usually receives something that actually says Home Health Order and is signed by PCP. Esther Dean RN documented in this encounter [facility] 11-17-2022 Miscellaneous Notes Pt was seen and [...] results from MOM. documented in this encounter [facility] 11-14-2022 Note Education (BERNICE) KELLY DAMIAN ([id number]) 1950 [facility] Date Time Provider Department 11/14/22 NGHIA HARVEY [...] Encounter Status:Closed by ISELA HARMON on 11/14/22 [facility] 11-14-2022 Note HNO ID: [id number] Author: Nghia Harvey MD, MD Service: Radiation Oncology Author Type: Physician Type: Progress Notes Filed: 11/19/2022 12:35 AM Note Text: KELLY DAMIAN [id number] : 1950 11/14/2022 [facility] Department of Radiation Oncology RADIATION ONCOLOGY - [...] upper lobe treated with SBRT at the [facility] in 03/2020. DELIVERED DOSE: 5000 cGy [...] PM Electronically Signed cc: Inocente Nichols [address] [place] [address] [facility] 11-14-2022 History of Present illness Narrative KELLY DAMIAN. [id number] : 1950 11/14/2022 [facility] Department of Radiation Oncology RADIATION ONCOLOGY - [...] upper lobe treated with SBRT at the [facility] in 03/2020. DELIVERED DOSE: 5000 cGy [...] PM Electronically Signed cc: Inocente Nichols [address] [place] [address] documented in this encounter [facility] 11-13-2022 Note HNO ID: [id number] Author: Inocente Nichols MD Service: ? Author [...] Use Disorder Lymphedema Coronary Artery Disease Involving [place] Coronary Artery Urinary Incontinence Gastroesophageal Reflux Disease Without Esophagitis Adenocarcinoma of Left Lung (Hcc) History of Colon Polyps Spinal Stenosis, Lumbar Region, With Neurogenic Claudication S/P Right Hip Fracture Physical Debility Bradycardia Adenocarcinoma of Right Lung (Hcc) Pulmonary Hypertension Due to Copd (Hcc) Obesity, Class I, Bmi 30-34.9 Hyponatremia Uncomplicated Alcohol Dependence (Hcc) Primary Hypertension Thrombocytopenia ([facility]) Social History Tobacco Use Smoking status: Every [...] COMP METABOLIC PANE (more content not included)... [facility] 11-13-2022 Instructions Inocente Nichols MD - 11/13/2022 7:27 PM EDT BLOOD WORK IN 4-6 WEEKS. INCREASE FUROSEMIDE TO 40 MG TWICE A DAY. LACTULOSE ORAL SOLUTION FOR CONSTIPATION. documented in this encounter [facility] 11-13-2022 History of Present illness Narrative This note was created using Seesaw. Subjective Kelly Damian is a 72 year [...] Use Disorder Lymphedema Coronary Artery Disease Involving [place] Coronary Artery Urinary Incontinence Gastroesophageal Reflux Disease [...] Inocente Nichols MD documented in this encounter [facility] 11-10-2022 Note HNO ID: [id number] Author: Nghia Harvey MD, Service: ? Author [...] upper lobe treated with SBRT at the [facility] in 03/2020. COURSE: definitive AREA TREATED: [...] radiation treatment as planned. Nghia Harvey MD [facility] 11-10-2022 Nurse Note Radiation Therapy - Nursing Note (OTV) PATIENT NAME: Kelly Damian PATIENT November 10, 2022 [facility] FACILITY/LOCATION: [place] NURSING NOTE TYPE: CHEST Subjective Data has area of swelling on right side of neck, he was not aware of it. States he fell on Thursday at home and did not fall on that side, he just tripped and fell no LOC Additional Data Do you want to see a Switchboard Manager? No Status: Patient is male Stress Scale: On a scale of 0 to 10, what number best describes how much distress you have experienced in the past week?(0 being no distress and 10 being extreme distress) 5 Social work notified: Pt denied need to see social worker delinquency prevention at this time. Nursing Assessment Fatigue: moderate; [...] Marisol Watters RN documented in this encounter [facility] 11-10-2022 History of Present illness Narrative Radiation [...] upper lobe treated with SBRT at the [facility] in 03/2020. COURSE: definitive AREA TREATED: [...] Nghia Harvey MD documented in this encounter [facility] 11-10-2022 Miscellaneous Notes From 10/29/22 [facility] care request for [facility]. This has been ordered but [facility] needs an office note completed for this need. This was relayed to the [facility] care nurse last week since pt had an appt with [facility] 11/10/22. Reccommended then they encourage pt to come to the [facility] appt. Pt has cancelled the appt today. Next appt with pcp is January. Message left to Liliam [facility] nurse with this info. documented in this encounter [facility] 10-30-2022 Miscellaneous Notes Liliam at [facility] notified of provider's response below. Telephone order for Home Health faxed to [facility] per Liliam's request. Gaby Canas RN [...] PT, OT. Inocente Nichols MD Liliam with [facility] called in and reports she [...] call and advise. documented in this encounter [facility] 10-23-2022 Note HNO ID: [id number] Author: Nghia Harvey MD, MD Service: Radiation Oncology Author Type: Physician Type: Progress Notes Filed: 10/30/2022 12:35 AM Note Text: KELLY DAMIAN [id number] 10/23/2022 [facility] Department of Radiation Oncology [facility] RADIATION ONCOLOGY SIMULATION NOTE DATE OF SIMULATION: 10/23/2022 MACHINE: Ingenic Definition CT Simulator Diagnosis: 1. Enlarging left lower lung nodule likely to be malignancy. 2. 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 3. Clinical stage IB, T2aN0, non-small cell lung cancer of the left upper lobe treated with SBRT at the [facility] in 03/2020. AREA:left lower lung PATIENT [...] Electronically Signed Nghia Harvey M.D./marlo :39 PM [facility] 10-23-2022 Note HNO ID: [id number] Author: Nghia Harvey MD, MD Service: Radiation Oncology Author Type: Physician Type: Progress Notes Filed: 11/05/2022 12:35 AM Note Text: KELLY DAMIAN [id number] 10/23/2022 [facility] Department of Radiation Oncology Treatment Planning Note [...] Electronically Signed Nghia Harvey M.D. 0:43 AM [facility] 10-23-2022 History of Present illness Narrative KELLY DAMIAN [id number] 10/23/2022 [facility] Department of Radiation Oncology [facility] RADIATION ONCOLOGY SIMULATION NOTE DATE OF [...] upper lobe treated with SBRT at the [facility] in 03/2020. AREA:left lower lung PATIENT POSITION: Supine. CONTRAST: None PROTOCOL: None BLOCKING: Custom blocking to be determined at treatment planning. FIXATION DEVICE: In order to achieve accurate and reproducible treatments, the patient is to be immobilized with [employer] SBRT system, full body vac bag, and [...] M.D./marlo 33:39 PM documented in this encounter [facility] 10-23-2022 History of Present illness Narrative KELLY DAMIAN [id number] 10/23/2022 [facility] Department of Radiation Oncology Treatment Planning Note [...] M.D. 0:43 AM documented in this encounter [facility] 10-20-2022 Miscellaneous Notes Orders called back to [facility]. 1) Monitor bradycardia. Advise ER for symptoms like dyspnea or syncope. 2) Okay to reduce Lasix to 40 mg once daily. 3) If diarrhea persists, check stool for clostridium difficile. Liliam nurse @ [facility] calling with update. She reports patient's heart rate has been in the 40's and regular the last 3 visits. She sees him once a week. He has no symptoms of dizziness nor lightheadedness. He had Vascular Studies done @ [facility] on 10/02. Dr. Mandie Kelsey, Vascular Surgeon [...] Esther Dean RN documented in this encounter [facility] 10-09-2022 Note HNO ID: [id number] Author: Nghia Harvey MD, MD Service: ? [...] upper lobe treated with SBRT at the [facility] in 03/2020. INTERVAL HISTORY: He had surveillance CT chests for his treated right lung cancer. CT on 05/02/22 showed interval increase in size of cavitary nodule in the left lower lobe from 1.2 cm on 01/16/[address] guided biopsy of the left lung lesion on 05/22/22 at the [facility] showed, Atypical epithelial cells suspicious for malignancy. [...] upper lobe treated with SBRT at the [facility] in 03/2020. I discussed management options [...] that other personnel such as radiation therapists, mutuel clerk, and physicists will participate in planning and delivery of radiation treatment. Permanent tattoo dejesus will be placed to aid with positioning for daily treatment and the patient consented. Signed by: Nghia Harvey MD cc: Inocente Nichols [address] [place], [place] [address] (more content not included)... [facility] 10-01-2022 Note HNO ID: [id number] Author: RT Piper(R) Service: ? Author Type: Rn Bariatric Type: Progress Notes Filed: 10/01/2022 2:59 PM [...] RT Brennen(R) October 01, 2022 2:59 PM [facility] 08-22-2022 Miscellaneous Notes order called back to Liliam. Clean with peroxide as needed. Triple antibiotic ointment with non stick dressing. Change every 2 days or when soaked. Liliam Nurse from [facility] calls to report that patient [...] They check on him weekly but not senior living. Patient does have aide and a sister who is a nurse who can help with changing dressing. Please review and advise, Елена Davis RN documented in this encounter [facility] 08-11-2022 Note HNO ID: [id number] Author: Inocente Nichols MD Service: ? Author Type: Physician Type: Progress Notes Filed: 08/11/2022 3:42 PM Note Text: This note was created using [employer]. Subjective Kelly Damian is a 72 year [...] Use Disorder Lymphedema Coronary Artery Disease Involving [place] Coronary Artery Urinary Incontinence Gastroesophageal Reflux Disease Without Esophagitis Adenocarcinoma of Left Lung ([facility]) History of Colon Polyps Spinal Stenosis, Lumbar Region, With Neurogenic Claudication S/P Right Hip Fracture Physical Debility Obesity, Class II, Bmi 35-39.9 Bradycardia Adenocarcinoma of Right Lung ([facility]) Pulmonary Hypertension Due to Copd ([facility]) Obesity, Class I, Bmi 30-34.9 Hyponatremia Uncomplicated Alcohol Dependence ([facility]) Primary Hypertension Social History Tobacco Use Smoking [...] 4. Pulmonary hypertens (more content not included)... [facility] 08-11-2022 Instructions Inocente Nichols MD - 08/11/2022 2:33 PM EST BLOOD CHEMISTRY TODAY. documented in this encounter [facility] 08-11-2022 History of Present illness Narrative This note was created using [employer]. Subjective Kelly Damian is a 72 year [...] Use Disorder Lymphedema Coronary Artery Disease Involving [place] Coronary Artery Urinary Incontinence Gastroesophageal Reflux Disease Without Esophagitis Adenocarcinoma of Left Lung (Hcc) History of Colon Polyps Spinal Stenosis, Lumbar Region, With Neurogenic Claudication S/P Right Hip Fracture Physical Debility Obesity, Class II, Bmi 35-39.9 Bradycardia Adenocarcinoma of Right Lung (Hcc) Pulmonary Hypertension Due to Copd ([facility]) Obesity, Class I, Bmi 30-34.9 Hyponatremia Uncomplicated [...] Inocente Nichols MD documented in this encounter [facility] 08-05-2022 Miscellaneous Notes Patient has been identified [...] patient. Kathy Ordaz documented in this encounter [facility] 08-01-2022 Miscellaneous Notes Called the pharmacy and this was not completed. Noted result: effusion is small on US. Cancel thoracentesis. Pt completed pre thoracentesis . See results. View External Imaging - u/s evaluation for thoracentesis [ID [id number]] documented in this encounter [facility] 07-31-2022 Miscellaneous Notes Liliam from [facility] called and is notified of providers message and instructions. She voices understanding. Berenice Hoyos RN Increase furosemide to one(1) tablet two(2) times daily. Requested Prescriptions Signed Prescriptions Disp Refills furosemide (LASIX) 40 mg tablet 60 tablet 3 Sig: Take 1 tablet by mouth twice daily. Authorizing Provider: INOCENTE NICHOLS MD Liliam from [facility] reports pt's legs are still just a red as when pt was seen in the office 07/16/22. +3 edema. Toes are purple & red. Pt denies pain per Liliam. Pt is having a thoracentesis today & [facility] Zaynab hose. Please advise. Radha Llamas LPN documented in this encounter [facility] 07-23-2022 Miscellaneous Notes Order completed and faxed to [facility] along with office notes from last appt,chest x ray,labs from [facility],and lab order for cytology on fluid. [facility] is to call pt to arrange. Patient notified of below results/recommendation. He is asking for the referral to [facility] radiology for thoracentesis. Let Patient know our office will send info to [facility], they will contact him to schedule. Ceci Santamaria LPN ----- Message from Inocente Nichols MD sent at 07/20/2022 1:08 PM EST ----- Persistent right lung base infiltrate and fluid, rule out recurrent cancer. Consider referral to [facility] radiology for thoracentesis. I will also share this with Dr. Harvey, radiation oncology. documented in this encounter [facility] 07-16-2022 Note HNO ID: [id number] Author: RT Zeferino(R) Service: ? Author Type: Rn Bariatric Type: Progress Notes Filed: 07/16/2022 5:04 PM [...] RT Zeferino(R) July 16, 2022 4:47 PM [facility] 07-16-2022 Note HNO ID: [id number] Author: Inocente Nichols MD Service: ? Author Type: Physician Type: Progress Notes Filed: 07/17/2022 12:29 AM Note Text: This note was created using CrowdTangleriter. Subjective Kelly Damian is a 72 year [...] Disorder (Hcc) Copd (Chronic Obstructive Pulmonary Disease) ([facility]) Benign Prostatic Hyperplasia With Urinary Frequency Chronic Hip Pain, Bilateral Chronic Bilateral Low Back Pain Tobacco Use Disorder Lymphedema Coronary Artery Disease Involving [place] Coronary Artery Urinary Incontinence Gastroesophageal Reflux Disease Without Esophagitis Adenocarcinoma of Left Lung (Hcc) History of Colon Polyps Spinal Stenosis, Lumbar Region, With Neurogenic Claudication S/P Right Hip Fracture Physical Debility Obesity, Class II, Bmi 35-39.9 Bradycardia Adenocarcinoma of Right Lung (Hcc) Pulmonary Hypertension Due to Copd ([facility]) Obesity, Class I, Bmi 30-34.9 Hyponatremia Uncomplicated Alcohol Dependence ([facility]) Primary Hypertension Current Outpatient Medications Medication Sig [...] - Recommended regul (more content not included)... [facility] 07-16-2022 Instructions Inocente Nichols MD - 07/16/2022 4:04 PM EST CHEST XRAY TODAY. PRESCRIPTIONS TO [facility] BLOOD WORK ON THE DAY OF THE NEXT APPOINTMENT documented in this encounter [facility] 07-16-2022 History of Present illness Narrative This note was created using Seesaw. Subjective Kelly Damian is a 72 year [...] Use Disorder Lymphedema Coronary Artery Disease Involving [place] Coronary Artery Urinary Incontinence Gastroesophageal Reflux Disease [...] Inocente Nichols MD documented in this encounter [facility] 07-11-2022 Miscellaneous Notes Spoke with pt and [...] understood and agreed. documented in this encounter [facility] 07-02-2022 Miscellaneous Notes I faxed a request to the film library to make images viewable. I was unable to reach them by phone. Report given to Dr Harvey, request faxed to [facility] to have images pushed thru to [facility]. I am attempting to get these results. Unable to access [employer]. Left message at medical records at [facility] to send these results. Patient calling for Pet Scan results from 06/18. Please advise. documented in this encounter [facility] 06-09-2022 Miscellaneous Notes Pt called and is [...] up as scheduled. documented in this encounter [facility] 06-02-2022 Miscellaneous Notes Faxed Office Note and CT Report. No Care Path or Pathology to send. Елена [facility]oe [facility]. They need Dr. Harvey's last OV note, the Care Path Report, If he had a biopsy the results and his CT scan results. Please fax this to them [facility] [phone] ATTN: Maddie Thank you! Allyson Luna documented in this encounter [facility] 05-30-2022 Instructions Inocente Nichols MD - 05/30/2022 2:32 PM EST CATARACT SURGERY NOT RECOMMENDED AT THIS TIME. documented in this encounter [facility] 05-30-2022 History of Present illness Narrative This [...] for weakness. ACTIVE PROBLEM LIST Bipolar Disorder ([facility]) Copd (Chronic Obstructive Pulmonary Disease) ([facility]) Benign Prostatic Hyperplasia With Urinary Frequency Chronic Hip Pain, Bilateral Chronic Bilateral Low Back Pain Tobacco Use Disorder Lymphedema Coronary Artery Disease Involving [place] Coronary Artery Urinary Incontinence Gastroesophageal Reflux Disease Without Esophagitis Adenocarcinoma of Left Lung ([facility]) History of Colon Polyps Spinal Stenosis, Lumbar Region, With Neurogenic Claudication S/P Right Hip Fracture Physical Debility Obesity, Class II, Bmi 35-39.9 Bradycardia Adenocarcinoma of Right Lung ([facility]) Pulmonary Hypertension Due to Copd ([facility]) Obesity, Class I, Bmi 30-34.9 Hyponatremia Uncomplicated Alcohol Dependence ([facility]) Primary Hypertension Current Outpatient Medications Medication Sig [...] TO CARDIOLOGY 3. Coronary artery disease involving [place] coronary artery of [place] heart without angina pectoris - ICD9: 414.01, ICD10: I25.10 - CONSULT TO CARDIOLOGY 4. Primary hypertension - ICD9: 401.9, ICD10: I10 - poor control 5. Centrilobular emphysema (HCC) - ICD9: 492.8, ICD10: J43.2 Rule out CHF. - XR CHEST 2V FRONTAL/LAT Inocente Nichols MD documented in this encounter [facility] 05-20-2022 Miscellaneous Notes Last [address] Harvey (3 phone and 1 office note) and last Office note from Tracy Nichols faxed as requested. Елена Choe [facility] called again requesting history and physical of the patient within the last 30 days. Please fax office notes to Please fax to [phone]. Faxed Med List and Lab Orders to [facility] as directed. Spoke with patient and he stated he would do labs tomorrow (05/21). Елена Choe Please fax med list, H & P faxed to [facility] for procedure on 05/22 please fax [phone] PSR's would you be able to fax lab orders to [facility] and have pt go get them done today or early tomorrow for procedure 05/22? [facility] is needing the following prior to lung biopsy on 05/22. Current H&P Med list Labs: PT, PT INR, Platelets. If patient hasn't had these done recently please fax a lab order to be drawn at [facility] Please fax to [phone] documented in this encounter [facility] 05-10-2022 History of Present illness Narrative DISTANCE [...] evaluation of this patient. Location of patient: [facility] Kelly Damian is a 72 [...] Use Disorder Lymphedema Coronary Artery Disease Involving [place] Coronary Artery Urinary Incontinence Gastroesophageal Reflux Disease [...] discussed Nirmatrelvir/Ritonavir (Paxlovid) Eligibility and Patient Discussion [facility] Formulary Restriction Criteria: Adult outpatients 18 years [...] coronavirus infection (COVID-19). documented in this encounter [facility] 05-09-2022 Miscellaneous Notes Patient notified, verbalized understanding and scheduled with PCP tomorrow for phone visit. He meets the criteria for treatment with Paxlovid if his symptoms started less than 5 days ago. This medication can decrease the risk of complications in those with mild to moderate symptoms. If he is interested then please schedule for virtual visit today Valorie Allan APRN.CNP Liliam from [facility] calls and wanted to make provider aware that patient tested positive for Covid via home test. Patient symptoms are not bad. Patent's sister whom he lives with had tested positive previously. Елена Davis RN documented in this encounter [facility] 05-02-2022 History of Present illness Narrative Radiology [...] 2022 10:58 AM documented in this encounter [facility] 04-28-2022 Miscellaneous Notes Faxed last ov notes to [facility], per Liliam request. documented in this encounter [facility] 04-14-2022 Miscellaneous Notes Teena notified and voiced [...] desk Valorie Allan APRN.CARROL Teena, nurse with [facility] states pt has sodium chloride 1000mg tid in his med box. Pt was given this med when in [facility], he was discharged with 90 tabs. Teena [...] Radha Llamas LPN documented in this encounter [facility] 04-03-2022 Miscellaneous Notes Dona from [facility] calls to report that they are extending senior living services for 1 time a week times 4 weeks. No call back needed. Елена Davis RN documented in this encounter [facility] 03-27-2022 Miscellaneous Notes Noted. Follow up as scheduled. Teena with [facility] calls with patient update requested by provider. BP today at visit: 118/70 Respirations today at visit: 18 Patient has chest congestion and diminished lung sounds per his normal. Patient is a chronic heavy smoker and Teena reports no increased SOB or cough. Afebrile. No weight gain. Teena's call back number for further questions is [phone]. Zully Goss RN documented in this encounter [facility] 03-21-2022 Miscellaneous Notes Nurse Linda returned call and given provider's message below. Gaby Canas RN ' Left message for Linda nurse manager management at [facility] to call back for orders. 1) continue [...] and glucose was stable. Brinda PT with [facility] called in she reports Pts systolic BP [...] call and advise. documented in this encounter [facility] 03-19-2022 Instructions Inocente Nichols MD - 03/19/2022 2:09 PM EDT BLOOD WORK TODAY. documented in this encounter [facility] 03-19-2022 History of Present illness Narrative This note was created using CrowdTangleriter. Subjective Patient presents with: [facility] F/U Kelly Damian is a 71 year [...] Use Disorder Lymphedema Coronary Artery Disease Involving [place] Coronary Artery Urinary Incontinence Gastroesophageal Reflux Disease [...] Inocente Nichols MD documented in this encounter [facility] 03-18-2022 Miscellaneous Notes Carol MILTON calling from [facility] to report plan of care for patient and OT will visit patient 1 time a week for first week, 2 times a week times 2 weeks, and 1 time a week for 1 week. OT will work with patient on ADLs. No call back needed if agreeable Елена Davis RN documented in this encounter [facility] 03-10-2022 Miscellaneous Notes Below response left on confidential vm. Ceci Santamaria LPN I will follow. Angeles with [facility] calling to state patient is to discharge from [facility] on 03/11 with diagnosis of hyponatremia, COPD exacerbation, and lower extremity edema. Patient has orders for Home Health Nursing, PT and OT. Angeles asking if provider will follow patient? They would like to see patient on 03/12. Please call Angeles at [phone]. May leave detailed message on confidential voicemail. Thank you. documented in this encounter [facility] 03-07-2022 Miscellaneous Notes Patient admitted. Patient's sister [...] Елена Davis RN documented in this encounter [facility] 02-27-2022 Note HNO ID: [id number] Author: Martita Belle MA Service: ? Author Type: Riveter Portable Machine Type: Progress Notes Filed: 02/27/2022 4:23 PM [...] suicidal ideas. The patient is not nervous/anxious. [facility] 02-27-2022 History of Present illness Narrative Review [...] is not nervous/anxious. [facility] Patient name: Kelly Damian Date of : [...] or double vision) Respiratory: Negative (No Cough, Pynvrujuy-sn-ukfukb, Dyspnea on exertion, wheezing) Cardiovascular: Negative (No Chest Pain, Tightness, Pressure, Palpitations) Gastrointestinal: Negative (No Abdominal pain, Nausea, Vomiting, Constipation, Diarrhea) Genitourinary: Negative (No dysuria) Hematologic: Negative (No bleeding, bruising) OB: is Denied or Not Applicable Endocrine: Negative (No hot/cold intolerance) Psychiatric: Negative (No depression, anxiety or suicidal ideation) PAST MEDICAL HISTORY Diagnosis Date Adenocarcinoma of left lung ([facility]) 01/27/2020 Adenocarcinoma of right lung ([facility]) 07/04/2021 Benign prostatic hyperplasia with urinary frequency 11/30/2020 Bipolar disorder ([facility]) 11/30/2020 Chronic bilateral low back pain 11/30/2020 Chronic hip pain, bilateral 11/30/2020 Closed fracture of right hip with routine healing 05/20/2021 COPD (chronic obstructive pulmonary disease) ([facility]) 11/30/2020 Coronary artery disease involving [place] coronary artery 11/30/2020 Esophageal stenosis Essential hypertension Falling episodes 05/20/2021 Gastroesophageal reflux disease without esophagitis 11/30/2020 History of colon polyps 03/27/2021 Lymphedema 11/30/2020 Mixed hyperlipidemia Other and unspecified hyperlipidemia Paroxysmal A-fib ([facility]) Pressure injury of sacral region, stage 2 ([facility]) 11/29/2021 Tobacco use disorder 11/30/2020 PAST SURGICAL HISTORY Procedure Laterality Date COLONOSCOPY 2005 10-15 years ago, [place], polyps x [address] BIOPSY - LUNG Left 01/27/2020 CT BIOPSY - LUNG Right 07/04/2021 [facility] 1ST INGUN HRNA AGE 3 YRS/> REDUCIBLE 07/20/2000 Hernia repair, inguinal, right TOTAL HIP REPLACEMENT Right 05/22/2021 [facility] FAMILY HISTORY Problem Relation Age of [...] unremarkable Assessment and Plan: As noted above [place] protocol documentation / Pre-Procedure Checklist: Consent: Obtained [...] MBA Pain Management [facility] Name: Kelly Damian : 1950 Purpose: Follow-up Date: 02/27/2022 Last Date 01/09/2022 Interval History: Kelly aDmian returns, reporting pain is unchanged. He fell [...] taking Baclofen 10mg qHS PRN spasms. Taking Cornucopia 5/325 sparingly for breakthrough pain, able to [...] - Medication Comments - - Pain Assessment (RN/IOS SOFTWARE ENGINEER) - - Pain: Timing: constant Character: Aching Primary location: axial low back Radiation: into the left > right buttock Exacerbated factors: Standing and walking Alleviating factors: Sitting Medication: Current pain medications: Tylenol OTC 650mg, takes 4 per day Diclofenac 75mg BID PRN Baclofen 10mg qHS PRN spasms Cornucopia 5/325, #28 (2/[id number]) - has two remaining Analgesia: Not adequate Function: Weekly Activity Level (0=none; 62=819+ minutes of total activity not including work activity): 2 Ambulation and Activities of Daily Living: With a walker or wheelchair Device Independent Exercise(s) or Activities: none 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 All prescriptions have been APPROPRIATELY filled. No suspicious activity was identified. by Juancho Carpenter MD 02/27/2022 Cornucopia 5/325, #28 (01/09/2022; 11/14/2021; 05/16/2021) Greenlight from [...] (Diclofenac) and Mobic (Meloxicam) Opioids: Vicodin or Cornucopia (Hydrocodone) Muscle Relaxants: Lioresal (Baclofen) and Zanaflex [...] was advised that they will need a hazmat cdl a driver for after the procedure and that if no hazmat cdl a driver is available and on site at the time of the procedure, the procedure will be cancelled. For any anticoagulants, the patient was advised on whether to continue or hold for this procedure. The patient expressed understanding and gave verbal consent to proceed. Medication(s): Cornucopia 5/325 #28, taking sparingly, will refill today [...] Referrals: No additional considerations at present Functional Adventism: Physical Therapy (Land-based) - continue home-based care Depending on response to the above-mentioned plan of care, in the future may consider evaluation for: Lumbar MBB/RFA - offered, declined (02/2022) -Follow-up: 2 months with [facility] Attribution: In addition to reviewing the information noted above, some elements copied from my most recent clinical note(s), including the physical exam (completed in entirety today), and the impression and plan sections, have been updated where appropriate. All reflect current medical decision making from today's date. Juancho Carpenter MD, MBA Pain Management [facility] documented in this encounter [facility] 02-27-2022 Note HNO ID: [id number] Author: Juancho Carpenter MD Service: ? Author Type: Physician Type: Progress Notes Filed: 02/27/2022 4:23 PM Note Text: [facility] Patient name: Kelly Damian Date of : [...] or double vision) Respiratory: Negative (No Cough, Lgfqwwelq-hf-ggcuxz, Dyspnea on exertion, wheezing) Cardiovascular: Negative (No [...] healing 05/20/2021 COPD (chronic obstructive pulmonary disease) ([facility]) 11/30/2020 Coronary artery disease involving [place] coronary artery 11/30/2020 Esophageal stenosis Essential hypertension Falling episodes 05/20/2021 Gastroesophageal reflux disease without esophagitis 11/30/2020 History of colon polyps 03/27/2021 Lymphedema 11/30/2020 Mixed hyperlipidemia Other and unspecified hyperlipidemia Paroxysmal A-fib (HCC) Pressure injury of sacral region, stage 2 (HCC) 11/29/2021 Tobacco use disorder 11/30/2020 PAST SURGICAL HISTORY Procedure Laterality Date COLONOSCOPY 2005 10-15 years ago[place], polyps x [address] BIOPSY - LUNG Left 01/27/2020 CT BIOPSY - LUNG Right 07/04/2021 [facility] 1ST INGUN HRNA AGE 3 YRS/> REDUCIBLE 07/20/2000 Hernia repair, inguinal, right TOTAL HIP REPLACEMENT Right 05/22/2021 [facility] FAMILY HISTORY Problem Relation Age of [...] 180 mcg/actuation aepb (more content not included)... [facility] 02-27-2022 Note HNO ID: [id number] Author: Juancho Carpenter MD Service: ? Author Type: Physician Type: Progress Notes Filed: 02/27/2022 4:23 PM Note Text: [facility] Name: Kelly Damian : 1950 Purpose: [...] taking Baclofen 10mg qHS PRN spasms. Taking Cornucopia 5/325 sparingly for breakthrough pain, able to [...] - Medication Comments - - Pain Assessment (RN/IOS SOFTWARE ENGINEER) - - Pain: Timing: constant Character: Aching Primary location: axial low back Radiation: into the left > right buttock Exacerbated factors: Standing and walking Alleviating factors: Sitting Medication: Current pain medications: Tylenol OTC 650mg, takes 4 per day Diclofenac 75mg BID PRN Baclofen 10mg qHS PRN spasms Cornucopia 5/325, #28 () - has two remaining Analgesia: Not adequate Function: Weekly Activity Level (0=none; 97=909+ minutes of total activity not including work activity): 08/29 Ambulation and Activities of Daily Living: With a walker or wheelchair Device Independent Exercise(s) or Activities: none 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 All prescriptions have been APPROPRIATELY filled. No suspicious activity was identified. by Juancho Carpenter MD 02/27/2022 Cornucopia 5/325, #28 (01/09/2022; 11/14/2021; 05/16/2021) Greenlight from [...] (Diclofenac) and Mobic (Meloxicam) Opioids: Vicodin or Cornucopia (Hydrocodone) Muscle Relaxants: Lioresal (Baclofen) and Zanaflex [...] 0.5cm, over th (more content not included)... [facility] 02-06-2022 Instructions Inocente Nichols MD - 02/06/2022 10:36 AM EDT BLOOD WORK TODAY PREVIOUSLY ORDERED (BMP, BTNP) documented in this encounter [facility] 02-06-2022 History of Present illness Narrative This note was created using Seesaw. Subjective Kelly Damian is a 71 year [...] Use Disorder Lymphedema Coronary Artery Disease Involving [place] Coronary Artery Urinary Incontinence Gastroesophageal Reflux Disease [...] (HCC) - ICD9: 296.66, ICD10: F31.78 Per [place] psychiatrist. 7. Pulmonary hypertension due to COPD (HCC) - ICD9: 416.8, 496, ICD10: I27.23, J44.9 Noted on echo. Inocente Nichols MD documented in this encounter [facility] 01-30-2022 Miscellaneous Notes Report received. Order has been faxed. Carey Mora New order is in. If not already printed and faxed please do so. Thank you. [facility] is stating order will need to state this is initial PETscan for new new nodule if using R code further questions please call [facility] at [phone] option # 2 as patient is schedule [...] so we should be good to schedule. [facility] is calling in regards to this patient's PET scan. Patient has previous Rt Lung cancer DX C34.11 and they are requesting a new pet scan order to reflect this dx and will also need Dr Harvey signature as current orders have no signature. DX used was R91.8 and they are requesting using Code C34.11 please refax to [phone] Harvey's notes from 01/22/22, pt needs scheduled for PET scan at [facility] I spoke with pt and he said he was waiting on us to scheduled and call him Can you please set this up ANDRÉS and notify pt? Thanks documented in this encounter [facility] 01-22-2022 History of Present illness Narrative CC: [...] disease) (HCC) 11/30/2020 Coronary artery disease involving [place] coronary artery 11/30/2020 Esophageal stenosis Essential hypertension Falling episodes 05/20/2021 Gastroesophageal reflux disease without esophagitis 11/30/2020 History of colon polyps 03/27/2021 Lymphedema 11/30/2020 Mixed hyperlipidemia Other and unspecified hyperlipidemia Paroxysmal A-fib (HCC) Tobacco use disorder 11/30/2020 PAST SURGICAL HISTORY Procedure Laterality Date COLONOSCOPY 2006 10-15 [place] ago[place], polyps x [address] BIOPSY - [...] Valorie Allan APRN.CNP documented in this encounter [facility] 01-16-2022 History of Present illness Narrative Radiology [...] 2022 9:11 AM documented in this encounter [facility] 01-15-2022 History of Present illness Narrative CC: [...] disease) (HCC) 11/30/2020 Coronary artery disease involving [place] coronary artery 11/30/2020 Esophageal stenosis Essential hypertension Falling episodes 05/20/2021 Gastroesophageal reflux disease without esophagitis 11/30/2020 History of colon polyps 03/27/2021 Lymphedema 11/30/2020 Mixed hyperlipidemia Other and unspecified hyperlipidemia Paroxysmal A-fib (HCC) Tobacco use disorder 11/30/2020 PAST SURGICAL HISTORY Procedure Laterality Date COLONOSCOPY 2005 10-15 years ago[place], polyps x [address] BIOPSY - LUNG Left 01/27/2020 CT BIOPSY - LUNG Right 07/04/2021 [facility] 1ST INGUN HRNA AGE 3 YRS/> REDUCIBLE 07/20/2000 Hernia repair, inguinal, right TOTAL HIP REPLACEMENT Right 05/22/2021 [facility] ALLERGIES Patient has no known allergies. [...] Valorie Allan APRN.CNP documented in this encounter [facility] 01-09-2022 Note HNO ID: [id number] Author: Radha Vo MA Service: ? Author Type: Riveter Portable Machine Type: Progress Notes Filed: 01/09/2022 3:01 PM [...] and suicidal ideas. The patient is nervous/anxious. [facility] 01-09-2022 Instructions Juancho Carpenter MD - 01/09/2022 2:53 PM EDT Update for home nursin. Discontinue Meloxicam (Mobic) 2. Start Diclofenac 75mg, twice daily as needed for pain 3. Continue Baclofen 10mg qHS as needed for spasms 4. Continue Cornucopia 5/325 (hydrocodone/tylenol), use sparingly for severe breakthrough pain (max of 2 per week) Juancho Carpenter III, MD, JUAN documented in this encounter [facility] 01-09-2022 History of Present illness Narrative Review [...] is nervous/anxious. [facility] [place] [facility] Name: Kelly Damian : 1950 Purpose: [...] qHS PRN spasms per nursing notes. Taking Cornucopia 5/325 sparingly for breakthrough pain, ran out [...] Positioning Comments - PT Exercises Pain Assessment (RN/IOS SOFTWARE ENGINEER) - - Pain: Timing: constant Character: Aching Primary location: axial low back Radiation: into the left > right buttock Exacerbated factors: Standing and walking Alleviating factors: Sitting Medication: Current pain medications: o Tylenol OTC 650mg, takes 4 per day o Diclofenac 75mg BID PRN o Baclofen 10mg qHS PRN spasms o Cornucopia 5/325, #28 (11/14/2021) Analgesia: Not adequate Function: Weekly Activity Level (0=none; 66=829+ minutes of total activity not including work activity): 08/29 Ambulation and Activities of Daily Living: With a walker or wheelchair Device Independent Exercise(s) or Activities: none 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 All prescriptions have been APPROPRIATELY filled. No suspicious activity was identified. by Juancho Carpenter MD 01/09/2022 Cornucopia 5/325, #28 (11/14/2021; 05/16/2021) Greenlight from 03/14/2021: [...] (Diclofenac) and Mobic (Meloxicam) Opioids: Vicodin or Cornucopia (Hydrocodone) Muscle Relaxants: Lioresal (Baclofen) and Zanaflex [...] participation, and/or improving quality of life: Medication(s): Cornucopia 5/325 #28, taking sparingly, will refill today [...] Referrals: No additional considerations at present Functional Adventism: Physical Therapy (Land-based) - continue home-based care [...] MBA Pain Management [facility] documented in this encounter [facility] 01-09-2022 Note HNO ID: [id number] Author: Juancoh Carpenter MD Service: ? Author Type: Physician Type: Progress Notes Filed: 01/09/2022 3:01 PM Note Text: [facility] Name: Kelly Damian : 1950 Purpose: Follow-up Date: 01/09/2022 Last Date 11/14/2021 Interval History: Kelly Damian returns, reporting pain is unchanged. He fell at home in July, fractured the right hip, had a hip replacement, was in a SNF. Developed a bed sore, managed at the [facility]. He has been managed at home with [...] qHS PRN spasms per nursing notes. Taking Cornucopia 5/325 sparingly for breakthrough pain, ran out [...] Positioning Comments - PT Exercises Pain Assessment (RN/IOS SOFTWARE ENGINEER) - - Pain: - Timing: constant - Character: Aching - Primary location: axial low back - Radiation: into the left > right buttock - Exacerbated factors: Standing and walking - Alleviating factors: Sitting Medication: - Current pain medications: o Tylenol OTC 650mg, takes 4 per day o Diclofenac 75mg BID PRN o Baclofen 10mg qHS PRN spasms o Cornucopia 5/325, #28 (11/14/2021) - Analgesia: Not adequate Function: - Weekly Activity Level (0=none; 39=433+ minutes of total activity not including work activity): 08/29 - Ambulation and Activities of Daily Living: With a walker or wheelchair Device - Independent Exercise(s) or Activities: none - 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 [facility] 12-13-2021 Miscellaneous Notes Signed and faxed back. rec'd and to pcp to review. Otilia from [facility] calling to state she will be faxing orders to pcp for wound care. Asking if pcp will sign & authorize. Fax # provided. Radha Llamas LPN documented in this encounter [facility] 12-12-2021 Miscellaneous Notes Patient notified, verbalized understanding. Ceci Santamaria LPN ----- Message from Inocente Nichols MD sent at 12/12/2021 8:16 AM EDT ----- No acute findings. R lung nodule as before, already biopsied. documented in this encounter [facility] 12-09-2021 Miscellaneous Notes Pt called and is notified of providers results and instructions. Pt voices understanding. Pt was put through to scheduling to set appointment for an Echo. Berenice Hoyos RN Patient notified and verbalized understanding. Transferred to scheduling. Equipment Oiler's please make sure patient was scheduled for ECHO. Thanks. ----- Message from Inocente Nichols MD sent at 12/07/2021 3:56 PM EDT ----- Labs concerning for CHF. Start furosemide 20 mg daily. Check echocardiogram. documented in this encounter [facility] 12-09-2021 Miscellaneous Notes Mel- PT- [facility], calling in POC: will see patient 3 'x's for 1 week, 2 x's week for 3 weeks, for strength, balance, gait, and transfer training. documented in this encounter [facility] 12-06-2021 Miscellaneous Notes Faxes sent to [facility] and [facility] per request. Nika Esparza LPN Linda with [facility] calls in to also request a referral be sent to the Wound Center at [facility] for the stage 2 pressure ulcer to sacrum as well. Zully Goss RN Linda from [facility] calls and states that there was some confusion to patient's home health orders. [facility] is discharging patient from their services, so that [facility] can picker / packer patient for their services. Linda asking for Home Health orders for residential. Please fax over today's office visit note to . Please review and advise, Елена Davis RN documented in this encounter [facility] documented as of this encounter (statuses as of 08/12/2022) [facility] History of Past illness Narrative* Problem Noted Date Resolved Date Obesity, Class II, BMI 35-39.9 12/06/2021 0 08/11/2022 Pressure injury of sacral region, stage 2 202102/06/2022 Obesity, Class II, BMI 35-39.9 03/27/2021 0 12/06/2021 Obesity, Class I, BMI 30-34.9 11/30/2020 documented as of this encounter (statuses as of 08/22/2022) [facility] History of Past illness Narrative* Problem Noted Date Resolved Date Obesity, Class II, BMI 35-39.9 12/06/2021 0 08/11/2022 Pressure injury of sacral region, stage 2 202102/06/2022 Obesity, Class II, BMI 35-39.9 03/27/2021 0 12/06/2021 Obesity, Class I, BMI 30-34.9 11/30/2020 documented as of this encounter (statuses as of 10/20/2022) [facility] History of Past illness Narrative* Problem Noted Date Resolved Date Obesity, Class II, BMI 35-39.9 12/06/2021 0 08/11/2022 Pressure injury of sacral region, stage 2 202102/06/2022 Obesity, Class II, BMI 35-39.9 03/27/2021 0 12/06/2021 Obesity, Class I, BMI 30-34.9 11/30/2020 documented as of this encounter (statuses as of 10/30/2022) [facility] History of Past illness Narrative* Problem Noted Date Resolved Date Obesity, Class II, BMI 35-39.9 12/06/2021 0 08/11/2022 Pressure injury of sacral region, stage 2 202102/06/2022 Obesity, Class II, BMI 35-39.9 03/27/2021 0 12/06/2021 Obesity, Class I, BMI 30-34.9 11/30/2020 documented as of this encounter (statuses as of 10/31/2022) [facility] History of Past illness Narrative* Problem Noted Date Resolved Date Obesity, Class II, BMI 35-39.9 12/06/2021 0 08/11/2022 Pressure injury of sacral region, stage 2 202102/06/2022 Obesity, Class II, BMI 35-39.9 03/27/2021 0 12/06/2021 Obesity, Class I, BMI 30-34.9 11/30/2020 documented as of this encounter (statuses as of 11/05/2022) [facility] History of Past illness Narrative* Problem Noted Date Resolved Date Obesity, Class II, BMI 35-39.9 12/06/2021 0 08/11/2022 Pressure injury of sacral region, stage 2 202102/06/2022 Obesity, Class II, BMI 35-39.9 03/27/2021 0 12/06/2021 Obesity, Class I, BMI 30-34.9 11/30/2020 documented as of this encounter (statuses as of 11/11/2022) [facility] History of Past illness Narrative* Problem Noted Date Resolved Date Obesity, Class II, BMI 35-39.9 12/06/2021 0 08/11/2022 Pressure injury of sacral region, stage 2 202102/06/2022 Obesity, Class II, BMI 35-39.9 03/27/2021 0 12/06/2021 Obesity, Class I, BMI 30-34.9 11/30/2020 documented as of this encounter (statuses as of 11/13/2022) [facility] History of Past illness Narrative* Problem Noted Date Resolved Date Obesity, Class II, BMI 35-39.9 12/06/2021 0 08/11/2022 Pressure injury of sacral region, stage 2 202102/06/2022 Obesity, Class II, BMI 35-39.9 03/27/2021 0 12/06/2021 Obesity, Class I, BMI 30-34.9 11/30/2020 documented as of this encounter (statuses as of 11/15/2022) [facility] History of Past illness Narrative* Problem Noted Date Resolved Date Obesity, Class II, BMI 35-39.9 12/06/2021 0 08/11/2022 Pressure injury of sacral region, stage 2 202102/06/2022 Obesity, Class II, BMI 35-39.9 03/27/2021 0 12/06/2021 Obesity, Class I, BMI 30-34.9 11/30/2020 documented as of this encounter (statuses as of 11/17/2022) [facility] History of Past illness Narrative* Problem Noted Date Resolved Date Obesity, Class II, BMI 35-39.9 12/06/2021 0 08/11/2022 Pressure injury of sacral region, stage 2 202102/06/2022 Obesity, Class II, BMI 35-39.9 03/27/2021 0 12/06/2021 Obesity, Class I, BMI 30-34.9 11/30/2020 documented as of this encounter (statuses as of 11/18/2022) [facility] History of Past illness Narrative* Problem Noted Date Resolved Date Obesity, Class II, BMI 35-39.9 12/06/2021 0 08/11/2022 Pressure injury of sacral region, stage 2 202102/06/2022 Obesity, Class II, BMI 35-39.9 03/27/2021 0 12/06/2021 Obesity, Class I, BMI 30-34.9 11/30/2020 documented as of this encounter (statuses as of 11/19/2022) [facility] History of Past illness Narrative* Problem Noted Date Resolved Date Obesity, Class II, BMI 35-39.9 12/06/2021 0 08/11/2022 Pressure injury of sacral region, stage 2 202102/06/2022 Obesity, Class II, BMI 35-39.9 03/27/2021 0 12/06/2021 Obesity, Class I, BMI 30-34.9 11/30/2020 documented as of this encounter (statuses as of 11/24/2022) [facility] History of Past illness Narrative* Problem Noted Date Resolved Date Obesity, Class II, BMI 35-39.9 12/06/2021 0 08/11/2022 Pressure injury of sacral region, stage 2 202102/06/2022 Obesity, Class II, BMI 35-39.9 03/27/2021 0 12/06/2021 Obesity, Class I, BMI 30-34.9 11/30/2020 documented as of this encounter (statuses as of 11/27/2022) [facility] History of Past illness Narrative* Problem Noted Date Resolved Date Obesity, Class II, BMI 35-39.9 12/06/2021 0 08/11/2022 Pressure injury of sacral region, stage 2 202102/06/2022 Obesity, Class II, BMI 35-39.9 03/27/2021 0 12/06/2021 Obesity, Class I, BMI 30-34.9 11/30/2020 documented as of this encounter (statuses as of 11/28/2022) [facility] History of Past illness Narrative* Problem Noted Date Resolved Date Obesity, Class II, BMI 35-39.9 12/06/2021 0 08/11/2022 Pressure injury of sacral region, stage 2 202102/06/2022 Obesity, Class II, BMI 35-39.9 03/27/2021 0 12/06/2021 Obesity, Class I, BMI 30-34.9 11/30/2020 documented as of this encounter (statuses as of 12/02/2022) [facility] History of Past illness Narrative* Problem Noted Date Resolved Date Obesity, Class II, BMI 35-39.9 12/06/2021 0 08/11/2022 Pressure injury of sacral region, stage 2 202102/06/2022 Obesity, Class II, BMI 35-39.9 03/27/2021 0 12/06/2021 Obesity, Class I, BMI 30-34.9 11/30/2020 documented as of this encounter (statuses as of 12/17/2022) [facility] History of Past illness Narrative* Problem Noted Date Resolved Date Obesity, Class II, BMI 35-39.9 12/06/2021 0 08/11/2022 Pressure injury of sacral region, stage 2 202102/06/2022 Obesity, Class II, BMI 35-39.9 03/27/2021 0 12/06/2021 Obesity, Class I, BMI 30-34.9 11/30/2020 documented as of this encounter (statuses as of 01/07/2023) [facility] History of Past illness Narrative* Problem Noted Date Resolved Date Obesity, Class II, BMI 35-39.9 12/06/2021 0 08/11/2022 Pressure injury of sacral region, stage 2 202102/06/2022 Obesity, Class II, BMI 35-39.9 03/27/2021 0 12/06/2021 Obesity, Class I, BMI 30-34.9 11/30/2020 documented as of this encounter (statuses as of 01/15/2023) [facility] History of Past illness Narrative* Problem Noted Date Resolved Date Obesity, Class II, BMI 35-39.9 12/06/2021 0 08/11/2022 Pressure injury of sacral region, stage 2 202102/06/2022 Obesity, Class II, BMI 35-39.9 03/27/2021 0 12/06/2021 Obesity, Class I, BMI 30-34.9 11/30/2020 documented as of this encounter (statuses as of 01/23/2023) [facility] History of Past illness Narrative* Problem Noted Date Diagnosed Date Resolved Date Obesity, Class II, BMI 35-39.9 12/06/2021 08/11/2022 Pressure injury of sacral region, stage 2 11/29/2021 02/06/2022 Obesity, Class II, BMI 35-39.9 03/27/2021 12/06/2021 Obesity, Class I, BMI 30-34.9 11/30/2020 12/06/2021 documented as of this encounter (statuses as of 02/03/2023) [facility] History of Past illness Narrative* Problem Noted Date Diagnosed Date Resolved Date Obesity, Class II, BMI 35-39.9 12/06/2021 08/11/2022 Pressure injury of sacral region, stage 2 11/29/2021 02/06/2022 Obesity, Class II, BMI 35-39.9 03/27/2021 12/06/2021 Obesity, Class I, BMI 30-34.9 11/30/2020 12/06/2021 documented as of this encounter (statuses as of 02/04/2023) [facility] History of Past illness Narrative* Problem Noted Date Diagnosed Date Resolved Date Obesity, Class II, BMI 35-39.9 12/06/2021 08/11/2022 Pressure injury of sacral region, stage 2 11/29/2021 02/06/2022 Obesity, Class II, BMI 35-39.9 03/27/2021 12/06/2021 Obesity, Class I, BMI 30-34.9 11/30/2020 12/06/2021 documented as of this encounter (statuses as of 02/19/2023) [facility] History of Past illness Narrative* Problem Noted Date Diagnosed Date Resolved Date Obesity, Class II, BMI 35-39.9 12/06/2021 08/11/2022 Pressure injury of sacral region, stage 2 11/29/2021 02/06/2022 Obesity, Class II, BMI 35-39.9 03/27/2021 12/06/2021 Obesity, Class I, BMI 30-34.9 11/30/2020 12/06/2021 documented as of this encounter (statuses as of 02/27/2023) [facility] History of Past illness Narrative* Problem Noted Date Diagnosed Date Resolved Date Obesity, Class II, BMI 35-39.9 12/06/2021 08/11/2022 Pressure injury of sacral region, stage 2 11/29/2021 02/06/2022 Obesity, Class II, BMI 35-39.9 03/27/2021 12/06/2021 Obesity, Class I, BMI 30-34.9 11/30/2020 12/06/2021 documented as of this encounter (statuses as of 03/01/2023) [facility] History of Past illness Narrative* Problem Noted Date Diagnosed Date Resolved Date Obesity, Class II, BMI 35-39.9 12/06/2021 08/11/2022 Pressure injury of sacral region, stage 2 11/29/2021 02/06/2022 Obesity, Class II, BMI 35-39.9 03/27/2021 12/06/2021 Obesity, Class I, BMI 30-34.9 11/30/2020 12/06/2021 documented as of this encounter (statuses as of 03/03/2023) [facility] History of Past illness Narrative* Problem Noted Date Diagnosed Date Resolved Date Obesity, Class II, BMI 35-39.9 12/06/2021 08/11/2022 Pressure injury of sacral region, stage 2 11/29/2021 02/06/2022 Obesity, Class II, BMI 35-39.9 03/27/2021 12/06/2021 Obesity, Class I, BMI 30-34.9 11/30/2020 12/06/2021 documented as of this encounter (statuses as of 03/05/2023) [facility] History of Past illness Narrative* Problem Noted Date Diagnosed Date Resolved Date Obesity, Class II, BMI 35-39.9 12/06/2021 08/11/2022 Pressure injury of sacral region, stage 2 11/29/2021 02/06/2022 Obesity, Class II, BMI 35-39.9 03/27/2021 12/06/2021 Obesity, Class I, BMI 30-34.9 11/30/2020 12/06/2021 documented as of this encounter (statuses as of 04/02/2023) [address]20-2022 History of Past illness Narrative* Problem Noted Date Diagnosed Date Resolved Date Obesity, Class II, BMI 35-39.9 12/06/2021 08/11/2022 Pressure injury of sacral region, stage 2 11/29/2021 02/06/2022 Obesity, Class II, BMI 35-39.9 03/27/2021 12/06/2021 Obesity, Class I, BMI 30-34.9 11/30/2020 12/06/2021 documented as of this encounter (statuses as of 04/22/2023) [facility] History of Past illness Narrative* Problem Noted Date Diagnosed Date Resolved Date Obesity, Class II, BMI 35-39.9 12/06/2021 08/11/2022 Pressure injury of sacral region, stage 2 11/29/2021 02/06/2022 Obesity, Class II, BMI 35-39.9 03/27/2021 12/06/2021 Obesity, Class I, BMI 30-34.9 11/30/2020 12/06/2021 documented as of this encounter (statuses as of 06/11/2023) [facility] History of Past illness Narrative* Problem Noted Date Diagnosed Date Resolved Date Obesity, Class II, BMI 35-39.9 12/06/2021 08/11/2022 Pressure injury of sacral region, stage 2 11/29/2021 02/06/2022 Obesity, Class II, BMI 35-39.9 03/27/2021 12/06/2021 Obesity, Class I, BMI 30-34.9 11/30/2020 12/06/2021 documented as of this encounter (statuses as of 06/18/2023) [facility] History of Past illness Narrative* Problem Noted Date Diagnosed Date Resolved Date Obesity, Class II, BMI 35-39.9 12/06/2021 08/11/2022 Pressure injury of sacral region, stage 2 11/29/2021 02/06/2022 Obesity, Class II, BMI 35-39.9 03/27/2021 12/06/2021 Obesity, Class I, BMI 30-34.9 11/30/2020 12/06/2021 documented as of this encounter (statuses as of 06/19/2023) [facility] Miscellaneous Notes* Telephone Encounter - Inocente Nichols MD - 12/05/2021 5:06 PM EDT Noted. * Telephone Encounter - Esther Dean RN - 12/05/2021 3:01 PM EDT Dona @ [facility] calling back to let PCP know patient is receiving HH services from [place]. Their fax # is [phone]. Attention PACT 7. [facility] will not be providing any further services. If PCP feels patient needs referral to [facility] after OV on 12/06 please send referral directly to [facility]. Esther Dean RN * Telephone Encounter - Zully Goss RN - 12/05/2021 2:34 PM EDT Dona calling from [facility] to report plan of care for patient and SN will visit patient 2 times a week for first week, 3 times a week for 1 week, 2 times a week for 2 weeks, and 1 time a week for 1 week. SN will work with patient on disease/medication management and wound care. Dona requesting an order for referral be sent to [facility] for further wound care of sacral pressure ulcer stage 2 and a verbal order for austin wraps to bilateral lower legs for 3+ pitting edema. Patient has appointment tomorrow 12/06 with provider. Call back number is [phone]. Zully Goss RN [facility] Miscellaneous Notes* Telephone Encounter - Елена Choe [...] (but not on a Thursday): DEPT: [facility] APPT NOTE: 2 MO FOLLOW UP/CT 01/13* APPT TYPE: PROVIDER PHONE CALL PROVIDER: NGHIA HARVEY Please schedule in any open 30 minute appointment time that is not on a Thursday. Once scheduled, document and route to [facility] HEM/ONC PSR. Елена Choe [facility] Miscellaneous Notes* Telephone Encounter - Berenice Hoyos RN - 12/04/2021 8:13 AM EDT Pt called in asking about nursing coming in and looking at his wound and doing dressing changes to it. Pt was notified that [facility] was referred and would be reaching out to him. Called Juliann at [facility] and gave providers wound orders. * Telephone [...] - 12/03/2021 10:21 AM EDT Juliann with [facility] calling to state they received a referral from Dr. Nichols's office for Nursing, PT and OT services. She is requesting wound care orders for patient including what dressings to use and frequency of dressing changes. Juliann also reports that [facility] are not able to do daily dressing changes and that patient would have to have a caregiver perform the dressing changes if needed. Please fax orders to [phone]. Thank you. [facility] Miscellaneous Notes* Telephone Encounter - Yehuda Galvez Ma - 11/30/2021 11:00 AM EDT All information re-faxed along with office note. Yehuda Galvez Ma * Telephone Encounter - Inocente Nichols MD - 11/30/2021 10:17 AM EDT Patient seen yesterday. Order printed. * Telephone Encounter - Natalie Hussein LPN - 11/29/2021 2:29 PM EDT [place] from [facility] calling patient needing a lift chair. Asking for order for [employer] phone number [phone] and fax is [phone]. [facility] is requiring Rx and demographics, copy of office visit notes. They will fax a CMN to PCP to complete. Please advise [facility] History of Present illness Narrative* Inocente Nichols MD - 11/29/2021 4:52 PM EDT This note was created using [employer]. Subjective Kelly Damian is a 71 year old male. He fell 05/20/21 and was admitted at [facility] for right hip fracture, COPD exacerbation, hyponatremia, SIADH. He was discharged to [place] where he stayed until September when he left [facility] when insurance ran out. He has been essentially wheelchair bound since then. [facility] nurse and [facility] nurse checked on him periodically but no HH, PT, or OT was set up. He has developed bedsores and [facility] started supplying gelfoam dressings. Review of Systems [...] Disorder ([facility]) Copd (Chronic Obstructive Pulmonary Disease) ([facility]) Benign Prostatic Hyperplasia With Urinary Frequency Chronic Hip Pain, Bilateral Chronic Bilateral Low Back Pain Tobacco Use Disorder Lymphedema Coronary Artery Disease Involving [place] Coronary Artery Obesity, Class I, Bmi 30-34.9 [...] is obese. Comments: Wheelchair bound, able to appointment clerk place. HENT: Head: Normocephalic. Eyes: Conjunctiva/sclera: Conjunctivae [...] Pressure injury of sacral region, stage 2 ([facility]) - ICD9: 707.03, 707.22, ICD10: L89.152 (primary [...] FACILITY Inocente Nichols MD [facility] History of Past illness Narrative* Problem Noted Date Resolved Date Pressure injury of sacral region, stage 2 202102/06/2022 Obesity, Class II, BMI 35-39.9 03/27/2021 0 12/06/2021 Obesity, Class I, BMI 30-34.9 11/30/2020 documented as of this encounter (statuses as of 02/06/2022) [facility] History of Past illness Narrative* Problem Noted Date Resolved Date Pressure injury of sacral region, stage 2 202102/06/2022 Obesity, Class II, BMI 35-39.9 03/27/2021 0 12/06/2021 Obesity, Class I, BMI 30-34.9 11/30/2020 documented as of this encounter (statuses as of 02/27/2022) [facility] History of Past illness Narrative* Problem Noted Date Resolved Date Pressure injury of sacral region, stage 2 202102/06/2022 Obesity, Class II, BMI 35-39.9 03/27/2021 0 12/06/2021 Obesity, Class I, BMI 30-34.9 11/30/2020 documented as of this encounter (statuses as of 03/07/2022) [address]22 History of Past illness Narrative* Problem Noted Date Resolved Date Pressure injury of sacral region, stage 2 202102/06/2022 Obesity, Class II, BMI 35-39.9 03/27/2021 0 12/06/2021 Obesity, Class I, BMI 30-34.9 11/30/2020 documented as of this encounter (statuses as of 03/10/2022) [facility] History of Past illness Narrative* Problem Noted Date Resolved Date Pressure injury of sacral region, stage 2 202102/06/2022 Obesity, Class II, BMI 35-39.9 03/27/2021 0 12/06/2021 Obesity, Class I, BMI 30-34.9 11/30/2020 documented as of this encounter (statuses as of 03/19/2022) [facility] History of Past illness Narrative* Problem Noted Date Resolved Date Pressure injury of sacral region, stage 2 202102/06/2022 Obesity, Class II, BMI 35-39.9 03/27/2021 0 12/06/2021 Obesity, Class I, BMI 30-34.9 11/30/2020 documented as of this encounter (statuses as of 03/19/2022) [facility] History of Past illness Narrative* Problem Noted Date Resolved Date Pressure injury of sacral region, stage 2 202102/06/2022 Obesity, Class II, BMI 35-39.9 03/27/2021 0 12/06/2021 Obesity, Class I, BMI 30-34.9 11/30/2020 documented as of this encounter (statuses as of 03/21/2022) [facility] History of Past illness Narrative* Problem Noted Date Resolved Date Pressure injury of sacral region, stage 2 202102/06/2022 Obesity, Class II, BMI 35-39.9 03/27/2021 0 12/06/2021 Obesity, Class I, BMI 30-34.9 11/30/2020 documented as of this encounter (statuses as of 03/27/2022) [facility] History of Past illness Narrative* Problem Noted Date Resolved Date Pressure injury of sacral region, stage 2 202102/06/2022 Obesity, Class II, BMI 35-39.9 03/27/2021 0 12/06/2021 Obesity, Class I, BMI 30-34.9 11/30/2020 documented as of this encounter (statuses as of 04/04/2022) [facility] History of Past illness Narrative* Problem Noted Date Resolved Date Pressure injury of sacral region, stage 2 202102/06/2022 Obesity, Class II, BMI 35-39.9 03/27/2021 0 12/06/2021 Obesity, Class I, BMI 30-34.9 11/30/2020 documented as of this encounter (statuses as of 04/14/2022) [facility] History of Past illness Narrative* Problem Noted Date Resolved Date Pressure injury of sacral region, stage 2 202102/06/2022 Obesity, Class II, BMI 35-39.9 03/27/2021 0 12/06/2021 Obesity, Class I, BMI 30-34.9 11/30/2020 documented as of this encounter (statuses as of 04/28/2022) [facility] History of Past illness Narrative* Problem Noted Date Resolved Date Pressure injury of sacral region, stage 2 202102/06/2022 Obesity, Class II, BMI 35-39.9 03/27/2021 0 12/06/2021 Obesity, Class I, BMI 30-34.9 11/30/2020 documented as of this encounter (statuses as of 05/01/2022) [facility] History of Past illness Narrative* Problem Noted Date Resolved Date Pressure injury of sacral region, stage 2 202102/06/2022 Obesity, Class II, BMI 35-39.9 03/27/2021 0 12/06/2021 Obesity, Class I, BMI 30-34.9 11/30/2020 documented as of this encounter (statuses as of 05/03/2022) [facility] History of Past illness Narrative* Problem Noted Date Resolved Date Pressure injury of sacral region, stage 2 202102/06/2022 Obesity, Class II, BMI 35-39.9 03/27/2021 0 12/06/2021 Obesity, Class I, BMI 30-34.9 11/30/2020 documented as of this encounter (statuses as of 05/09/2022) [facility] History of Past illness Narrative* Problem Noted Date Resolved Date Pressure injury of sacral region, stage 2 202102/06/2022 Obesity, Class II, BMI 35-39.9 03/27/2021 0 12/06/2021 Obesity, Class I, BMI 30-34.9 11/30/2020 documented as of this encounter (statuses as of 05/10/2022) [facility] History of Past illness Narrative* Problem Noted Date Resolved Date Pressure injury of sacral region, stage 2 202102/06/2022 Obesity, Class II, BMI 35-39.9 03/27/2021 0 12/06/2021 Obesity, Class I, BMI 30-34.9 11/30/2020 documented as of this encounter (statuses as of 05/20/2022) [facility] History of Past illness Narrative* Problem Noted Date Resolved Date Pressure injury of sacral region, stage 2 202102/06/2022 Obesity, Class II, BMI 35-39.9 03/27/2021 0 12/06/2021 Obesity, Class I, BMI 30-34.9 11/30/2020 documented as of this encounter (statuses as of 05/30/2022) [address]13-2022 History of Past illness Narrative* Problem Noted Date Resolved Date Pressure injury of sacral region, stage 2 202102/06/2022 Obesity, Class II, BMI 35-39.9 03/27/2021 0 12/06/2021 Obesity, Class I, BMI 30-34.9 11/30/2020 documented as of this encounter (statuses as of 06/03/2022) [facility] History of Past illness Narrative* Problem Noted Date Resolved Date Pressure injury of sacral region, stage 2 202102/06/2022 Obesity, Class II, BMI 35-39.9 03/27/2021 0 12/06/2021 Obesity, Class I, BMI 30-34.9 11/30/2020 documented as of this encounter (statuses as of 06/09/2022) [facility] History of Past illness Narrative* Problem Noted Date Resolved Date Pressure injury of sacral region, stage 2 202102/06/2022 Obesity, Class II, BMI 35-39.9 03/27/2021 0 12/06/2021 Obesity, Class I, BMI 30-34.9 11/30/2020 documented as of this encounter (statuses as of 07/03/2022) [facility] History of Past illness Narrative* Problem Noted Date Resolved Date Pressure injury of sacral region, stage 2 202102/06/2022 Obesity, Class II, BMI 35-39.9 03/27/2021 0 12/06/2021 Obesity, Class I, BMI 30-34.9 11/30/2020 documented as of this encounter (statuses as of 07/13/2022) [address]13-2022 History of Past illness Narrative* Problem Noted Date Resolved Date Pressure injury of sacral region, stage 2 202102/06/2022 Obesity, Class II, BMI 35-39.9 03/27/2021 0 12/06/2021 Obesity, Class I, BMI 30-34.9 11/30/2020 documented as of this encounter (statuses as of 07/23/2022) [facility] History of Past illness Narrative* Problem Noted Date Resolved Date Pressure injury of sacral region, stage 2 202102/06/2022 Obesity, Class II, BMI 35-39.9 03/27/2021 0 12/06/2021 Obesity, Class I, BMI 30-34.9 11/30/2020 documented as of this encounter (statuses as of 07/25/2022) [facility] History of Past illness Narrative* Problem Noted Date Resolved Date Pressure injury of sacral region, stage 2 202102/06/2022 Obesity, Class II, BMI 35-39.9 03/27/2021 0 12/06/2021 Obesity, Class I, BMI 30-34.9 11/30/2020 documented as of this encounter (statuses as of 07/31/2022) [facility] History of Past illness Narrative* Problem Noted Date Resolved Date Pressure injury of sacral region, stage 2 202102/06/2022 Obesity, Class II, BMI 35-39.9 03/27/2021 0 12/06/2021 Obesity, Class I, BMI 30-34.9 11/30/2020 documented as of this encounter (statuses as of 08/01/2022) [facility] History of Past illness Narrative* Problem Noted Date Resolved Date Pressure injury of sacral region, stage 2 202102/06/2022 Obesity, Class II, BMI 35-39.9 03/27/2021 0 12/06/2021 Obesity, Class I, BMI 30-34.9 11/30/2020 documented as of this encounter (statuses as of 08/05/2022) [facility] Miscellaneous Notes* Telephone Encounter - Yehuda Galvez Ma - 11/26/2021 3:06 PM EDT Spoke with Nadege - states that patient used [facility] in the passed with Medicaid. Order and all patient information faxed and patient notified. Yehuda Galvez Ma * Telephone Encounter - Jillian Vasquez RN - 11/20/2021 1:46 PM EDT Nadege- nurse at [place], reports patient reports he has wounds on buttocks. Patient reported to nurse pcp doctor looked at it at his last appt, and took pictures of it, and prescribed vicodin. Appears last doctor patient saw at [facility] was pain mgmt, and there is a noted comment in ov notes. Nadege reports patient needs [facility] nurse for wound care and medication management. Reports the [facility] only sees patient's once a month. Reports patient will need to be seen more often than that for wound care, probably once or twice a week. Asking pcp office to place order and send to [facility] for patient. documented [facility] encounter[facility] Miscellaneous Notes* Telephone Encounter - Yehuda Galvez Ma - 11/18/2021 2:37 PM EDT TC to patient's sister Deyanira Left message to call office. 11/18/2021 2:38 PM Not in patient's chart that he see's a cv rn.Per podi office - Dr. Wang will do [...] his toe nails do. documented in this encounterAccess [facility]22 NoteHNO ID: [id number] Author: Evi Diaz MA Service: ? Author Type: Riveter Portable Machine Type: Progress Notes Filed: 11/14/2021 12:05 PM Note Text: Review of Systems Constitutional: Negative for chills and fever. Genitourinary: Negative for difficulty urinating. Musculoskeletal: Positive for arthralgias, back pain and gait problem. Negative for joint swelling, myalgias, neck pain and neck stiffness. Neurological: Negative for weakness, numbness and headaches. Psychiatric/Behavioral: Negative for dysphoric mood, sleep disturbance and suicidal ideas. 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) - - Pain: Timing: constant Character: Aching Primary location: axial low back Radiation: into the left > right buttock Exacerbated factors: Standing and walking Alleviating factors: Sitting Medication: Current pain medications: o Tylenol OTC 650mg, takes 4 per day o Mobic 15mg daily o Baclofen 10mg qHS PRN spasms Analgesia: Not adequate Function: Weekly Activity Level (0=none; 69=689+ minutes of total activity not including work activity): 08/29 Ambulation and Activities of Daily Living: With a walker or wheelchair Device Independent Exercise(s) or Activities: none 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 All prescriptions have been APPROPRIATELY filled. No suspicious activity was identified. by Juancho Carpenter MD 11/14/2021 Cornucopia 5/325, #28 (05/16/2021) [facility] from 03/14/2021: Center [...] none NSAIDS: Mobic (Meloxicam) Opioids: Vicodin or Cornucopia (Hydrocodone) Muscle Relaxants: Lioresal (Baclofen) and Zanaflex [...] participation, and/or improving quality of life: Medication(s): Cornucopia 5/325 #28, taking sparingly, will refill today Mobic 15mg daily - Discontinue Diclofenac 75mg BID - Start Baclofen 10mg qHS PRN spasms - will hold off on refill until I can verify his current medications OK to continue Tylenol OTC Additional Studies: None Referrals: No additional considerations at present Functional Adventism: Physical Therapy (Land-based) - advised home-based care [...] MBA Pain Management [facility] documented in this encounterAccess Hospital [facility]04-28-2022 NoteHNO ID: [id number] Author: Juancho Carpenter MD Service: ? 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 Quadriceps (more content not included)...[facility] 11-07-2021 Instructions* Patient Instructions* Edvin Cosby APRN.SEASONING MIXER, DNP - 11/07/2021 7:35 AM EDT Follow [...] health. Edvin Cosby DNP.CARROL documented in this encounterAccess Hospital [facility]04-21-2022 History of Present illness Narrative* Edvin Cosby [...] 6 weeks ago he was released from [facility] status post right hip replacement and fall. Was seen at the [facility] in [place]. Recently established with Dr. Nichols. Last appt was 03/2021. 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 Sister present with patient. In a wheel chair. Difficulty with ambulation. Specialty providers: Pulmonology: Dr. Cayden Chow [facility] Oncology: Dr. Hammer Radiation oncology: Dr. Harvey Psychiatry: Dr. White - [place] and Ary Bae - [facility] Pain management: Dr. Carpenter Past medical history: [...] undergoing radiation treatment with Dr. Wes Leon [facility]. Diagnosed with lung cancer in 2020. Complains [...] disease) (HCC) 11/30/2020 Coronary artery disease involving [place] coronary artery 11/30/2020 Esophageal stenosis Essential hypertension [...] with current medications. Continue follow up with [facility] Edvin Cosby APRN.SEASONING MIXER, DNP This note was completed with Gather dictation software. Note was reviewed for accuracy. There may be minor misspellings or grammar miscues with Gather Dictation. I spent a total of 38 minutes on the date of the service which included preparing to see the patient, [id number] patient care, completing clinical documentation, performing a medically appropriate examination, counseling and educating the patient/family/caregiver and ordering medications, tests, or procedures. [place] [phone] documented in this encounterAccess Hospital [facility]04-20-2022 Miscellaneous Notes* Telephone Encounter - Isela Harmon [...] to talk to him. documented in this encounterAccess Hospital [facility]04-[facility]22 History of Present illness Narrative* Nghia Harvey [...] minutes Nghia Harvey MD documented in this encounterAccess Hospital [facility]03-[facility]-2022 Nurse Note* Isela Harmon RN - 10/09/2021 [...] patient education: 05 minutes. documented in this encounterAccess Hospital [facility]12-29-2021 NoteHNO ID: [id number] Author: Rochelle Elliott Service: ? Author Type: ? Type: Progress Notes Filed: 07/17/2021 9:32 AM Note Text: Attempted to contact patient on home phone and I received a busy tone. Unable to leave a voicemail on patients cellphone. Rochellepreet ElliottMid Coast Hospital12-29-2021 NoteHNO ID: [id number] Author: Criselda Irizarry APRN.[facility] Service: ? Author Type: Nurse Practitioner Type: Progress Notes Filed: 07/17/2021 9:12 AM Note Text: Attempted to leave message, mailbox was full, reschedule Criselda Irizarry APRN.[facility]10-28-2021 NoteHNO ID: [id number] Author: Summer Ruff Service: ? Author Type: [...] and suicidal ideas. The patient is not nervous/anxious.[facility]10-28-2021 NoteHNO ID: [id number] Author: Juancho Carpenter MD Service: ? 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: To be able to [...] none NSAIDS: Mobic (Meloxicam) Opioids: Vicodin or Cornucopia (Hydrocodone) Muscle Relaxants: Lioresal (Baclofen) and Zanaflex [...] is concordant tenderness over (more content not included)...[facility]09-23-2021 NoteProcedure (CMGWO) RICKIEKELLY ([id number]) 1950 M Date Time Provider Department 04/11/21 1:15 PM JUANCHO CARPENTER III During your visit today, we recorded the following information about you: Weight Height 112.5 kg 1.803 m Juancho Carpenter MD 04/11/2021 1:33 PM Signed [facility] Patient name: Kelly Damian Date of : [...] double vision) ? Respiratory: Negative (No Cough, Epqohujew-px-odajxk, Dyspnea on exertion, wheezing) ? Cardiovascular: Negative [...] with urinary frequency 11/30/2020 - Bipolar disorder ([facility]) 11/30/2020 - Chronic bilateral low back pain 11/30/2020 - Chronic hip pain, bilateral 11/30/2020 - COPD (chronic obstructive pulmonary disease) ([facility]) 11/30/2020 - Coronary artery disease involving [place] coronary artery 11/30/2020 - Esophageal stenosis - Essential hypertension - Gastroesophageal reflux disease without esophagitis 11/30/2020 - History of colon polyps 03/27/2021 - Lymphedema 11/30/2020 - Mixed hyperlipidemia - Other and unspecified hyperlipidemia - Paroxysmal A-fib ([facility]) - Tobacco use disorder 11/30/2020 ? PAST [...] file prior to vi (more content not included)...[facility]-23-2021 NoteHNO ID: [id number] Author: Elva Dee LPN Service: ? Author [...] with urinary frequency 11/30/2020 - Bipolar disorder ([facility]) 11/30/2020 - Chronic bilateral low back pain 11/30/2020 - Chronic hip pain, bilateral 11/30/2020 - COPD (chronic obstructive pulmonary disease) ([facility]) 11/30/2020 - Coronary artery disease involving [place] coronary artery 11/30/2020 - Esophageal stenosis - Essential hypertension - Gastroesophageal reflux disease without esophagitis 11/30/2020 - History of colon polyps 03/27/2021 - Lymphedema 11/30/2020 - Mixed hyperlipidemia - Other and unspecified hyperlipidemia - Paroxysmal A-fib ([facility]) - Tobacco use disorder 11/30/2020 PAST SURGICAL HISTORY Procedure Laterality Date - COLONOSCOPY 2005 10-15 years ago, [place], polyps x 3 removed. - REPAIR ING [...] kg (248 lb) BMI 34.59 kg/m? [facility]am[facility]09-[facility]-2021 NoteHNO ID: [id number] Author: Juancho Carpenter III, MD Service: ? Author Type: Physician Type: Progress Notes Filed: 04/11/2021 1:33 PM Note Text: [facility] Patient name: Kelly Damian Date of : [...] double vision) ? Respiratory: Negative (No Cough, Lflzgckqh-ru-fjtaec, Dyspnea on exertion, wheezing) ? Cardiovascular: Negative [...] with urinary frequency 11/30/2020 - Bipolar disorder ([facility]) 11/30/2020 - Chronic bilateral low back pain 11/30/2020 - Chronic hip pain, bilateral 11/30/2020 - COPD (chronic obstructive pulmonary disease) ([facility]) 11/30/2020 - Coronary artery disease involving [place] coronary artery 11/30/2020 - Esophageal stenosis - Essential hypertension - Gastroesophageal reflux disease without esophagitis 11/30/2020 - History of colon polyps 03/27/2021 - Lymphedema 11/30/2020 - Mixed hyperlipidemia - Other and unspecified hyperlipidemia - Paroxysmal A-fib ([facility]) - Tobacco use disorder 11/30/2020 ? PAST [...] and Person ? Head: No lacerations, no portable track line marker (more content not included)...[facility]-20-[facility]21 NoteProcedure (AGSPHWG) KELLY DAMIAN ([id number]) 1950 M Date Time Provider Department 04/08/21 [...] Lymphedema [I89.0] 11/30/2020 Coronary artery disease involving s[place] finch*11/30/2020 Obesity, Class I, BMI 30.0-34.9 (see actual BMI*11/30/2020 Urinary incontinence [R32] 11/30/2020 Gastroesophageal reflux disease without esophag*11/30/2020 Adenocarcinoma of left lung (HCC) [C34.92] 01/23/2021 History of colon polyps [Z86.010] 03/27/2021 Obesity, Class II, BMI 35-39.9 [E66.9] 03/27/2021 Encounter Status:Closed by JUANCHO CARPENTER III on 04/09/21[facility] History of Past illness Narrative* Problem Noted Date Resolved Date Obesity, Class II, BMI 35-39.9 03/27/2021 0 12/06/2021 Obesity, Class I, BMI 30-34.9 11/30/2020 documented as of this encounter (statuses as of 12/06/2021) [address]08-2021 History of Past illness Narrative* Problem Noted Date Resolved Date Obesity, Class II, BMI 35-39.9 03/27/2021 0 12/06/2021 Obesity, Class I, BMI 30-34.9 11/30/2020 documented as of this encounter (statuses as of 12/07/2021) [address]08-2021 History of Past illness Narrative* Problem Noted Date Resolved Date Obesity, Class II, BMI 35-39.9 03/27/2021 0 12/06/2021 Obesity, Class I, BMI 30-34.9 11/30/2020 documented as of this encounter (statuses as of 12/09/2021) [address]08-2021 History of Past illness Narrative* Problem Noted Date Resolved Date Obesity, Class II, BMI 35-39.9 03/27/2021 0 12/06/2021 Obesity, Class I, BMI 30-34.9 11/30/2020 documented as of this encounter (statuses as of 12/12/2021) [address]08-2021 History of Past illness Narrative* Problem Noted Date Resolved Date Obesity, Class II, BMI 35-39.9 03/27/2021 0 12/06/2021 Obesity, Class I, BMI 30-34.9 11/30/2020 documented as of this encounter (statuses as of 12/13/2021) [address]08-2021 History of Past illness Narrative* Problem Noted Date Resolved Date Obesity, Class II, BMI 35-39.9 03/27/2021 0 12/06/2021 Obesity, Class I, BMI 30-34.9 11/30/2020 documented as of this encounter (statuses as of 01/09/2022) [address]08-2021 History of Past illness Narrative* Problem Noted Date Resolved Date Obesity, Class II, BMI 35-39.9 03/27/2021 0 12/06/2021 Obesity, Class I, BMI 30-34.9 11/30/2020 documented as of this encounter (statuses as of 01/15/2022) [facility] of Past illness Narrative* Problem Noted Date Resolved Date Obesity, Class II, BMI 35-39.9 03/27/2021 0 12/06/2021 Obesity, Class I, BMI 30-34.9 11/30/2020 documented as of this encounter (statuses as of 01/17/2022) [facility] of Past illness Narrative* Problem Noted Date Resolved Date Obesity, Class II, BMI 35-39.9 03/27/2021 0 12/06/2021 Obesity, Class I, BMI 30-34.9 11/30/2020 documented as of this encounter (statuses as of 01/22/2022) [facility] History of Past illness Narrative* Problem Noted Date Resolved Date Obesity, Class II, BMI 35-39.9 03/27/2021 0 12/06/2021 Obesity, Class I, BMI 30-34.9 11/30/2020 documented as of this encounter (statuses as of 01/30/2022) [facility]21 NoteHNO ID: [id number] Author: Elva Dee LPN Service: ? Author [...] 11/30/2020 - COPD (chronic obstructive pulmonary disease) ([facility]) 11/30/2020 - Coronary artery disease involving [place] coronary artery 11/30/2020 - Esophageal stenosis - Essential hypertension - Gastroesophageal reflux disease without esophagitis 11/30/2020 - Lymphedema 11/30/2020 - Mixed hyperlipidemia - Other and unspecified hyperlipidemia - Paroxysmal A-fib ([facility]) - Tobacco use disorder 11/30/2020 PAST SURGICAL [...] kg (250 lb) BMI 33.91 kg/m? [facility]21 NoteHNO ID: [id number] Author: Juancho Carpenter III, MD Service: ? 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 All prescriptions have been APPROPRIATELY filled. No suspicious activity was identified. 03/14/2021 by Juancho Carpenter MD [facility] from 03/14/2021: - Center for [...] Stabilizers: none NSAIDS: none Opioids: Vicodin or Cornucopia (Hydrocodone) Muscle Relaxants: Zanaflex (Tizanidine) Topicals: none [...] to trochanteric bursitis, pre (more content not included)...[facility]* Diagnosis Sinobronchitis- Primary Unspecified sinusitis (chronic) Obesity, Class I, BMI 30-34.9 Obesity, unspecified Adenocarcinoma of left lung (HCC) Centrilobular emphysema (HCC) Other emphysema Tobacco use disorder Bipolar disorder, in full remission, most recent episode mixed (HCC) Bipolar I disorder, most recent episode (or current) mixed, in full remission [facility] Sinobronchitis Unspecified sinusitis (chronic) [facility] Diagnosis Radiotherapy follow-up- Primary Radiotherapy follow-up examination Neoplasm of lung Neoplasm of unspecified nature of respiratory system Primary cancer of right lower lobe of lung (HCC) [facility] Diagnosis Lumbar spondylosis- Primary Lumbosacral spondylosis without myelopathy Spinal stenosis of lumbar region with neurogenic claudication Spinal stenosis, lumbar region, with neurogenic claudication Trochanteric bursitis of left hip Enthesopathy of hip region [facility] Diagnosis Pressure injury of skin of buttock, unspecified injury stage, unspecified laterality- Primary [facility]* Diagnosis Pressure injury of sacral region, stage 2 (HCC)- Primary Physical debility Debility, unspecified S/P right hip fracture Spinal stenosis, lumbar region, with neurogenic claudication Centrilobular emphysema (HCC) Other emphysema [facility] Diagnosis Trochanteric bursitis of right hip- Primary Enthesopathy of hip region Lumbar spondylosis Lumbosacral spondylosis without myelopathy Spinal stenosis of lumbar region with neurogenic claudication Spinal stenosis, lumbar region, with neurogenic claudication Trochanteric bursitis of left hip Enthesopathy of hip region Spinal stenosis, lumbar region with neurogenic claudication [facility] Cellulitis of right lower leg- Primary Cellulitis and abscess of leg, except foot [facility] Diagnosis Neoplasm of lung Neoplasm of unspecified nature of respiratory system [facility] Diagnosis Cellulitis of right lower leg- Primary Cellulitis and abscess of leg, except foot Lymphedema Other lymphedema [facility] Diagnosis Primary hypertension- Primary Unspecified [...] pulmonary heart diseases [facility] Diagnosis Spinal stenosis of lumbar region with neurogenic claudication- Primary Spinal stenosis, lumbar region, with neurogenic claudication Lumbar spondylosis Lumbosacral spondylosis without myelopathy Trochanteric bursitis of left hip Enthesopathy of hip region Trochanteric bursitis of right hip Enthesopathy of hip region [facility] Diagnosis Hyponatremia- Primary Hyposmolality and/or hyponatremia Obesity, Class I, BMI 30-34.9 Obesity, unspecified Centrilobular emphysema (HCC) Other emphysema Lymphedema Other lymphedema Uncomplicated alcohol dependence (HCC) Other and unspecified alcohol dependence, unspecified drinking behavior Benign prostatic hyperplasia with urinary frequency Bipolar affective disorder, remission status unspecified (HCC) Primary hypertension Unspecified essential hypertension [facility] Diagnosis Lymphedema Other lymphedema [facility]* Diagnosis Neoplasm of lung Neoplasm of unspecified nature of respiratory system [facility]* Diagnosis COVID-19 virus infection- Primary [facility]* Diagnosis Adenocarcinoma of left lung (HCC)- Primary [facility]* Diagnosis Preoperative examination- Primary Preoperative examination, unspecified Bradycardia Other specified cardiac dysrhythmias Coronary artery disease involving [place] coronary artery of [place] heart without angina pectoris Primary hypertension Unspecified essential hypertension Centrilobular emphysema (HCC) Other emphysema [facility] Diagnosis Abnormal chest x-ray- Primary Other nonspecific abnormal finding of lung field [facility] Diagnosis Neoplasm of lung- Primary Neoplasm of unspecified nature of respiratory system [facility]* Diagnosis Lymphedema- Primary Other lymphedema Primary hypertension Unspecified essential hypertension Abnormal chest x-ray Other nonspecific abnormal finding of lung field Need for influenza vaccination Need for prophylactic vaccination and inoculation against influenza [facility]* Diagnosis Lymphedema Other lymphedema [facility]* Diagnosis Lymphedema- Primary Other lymphedema Need for vaccination Need for prophylactic vaccination and inoculation against unspecified single disease Centrilobular emphysema (HCC) Other emphysema Pulmonary hypertension due to COPD (HCC) Other chronic pulmonary heart diseases Uncomplicated alcohol dependence (HCC) Other and unspecified alcohol dependence, unspecified drinking behavior Bipolar affective disorder, remission status unspecified (HCC) documented in this encounter [facility]* Diagnosis Lymphedema Other lymphedema [facility]* Diagnosis Wound of right lower extremity, subsequent encounter- Primary Urinary incontinence, unspecified type Physical debility Debility, unspecified Lymphedema Other lymphedema [facility]* Diagnosis Primary cancer of left lower lobe of lung (HCC)- Primary Thrombocytopenia (HCC) Thrombocytopenia, unspecified [facility]* Diagnosis Lymphedema- Primary Other lymphedema Spinal stenosis, lumbar region, with neurogenic claudication Urinary incontinence, unspecified type Physical debility Debility, unspecified Constipation, unspecified constipation type Primary hypertension Unspecified essential hypertension [facility]* Diagnosis Radiotherapy follow-up- Primary Radiotherapy follow-up examination Malignant neoplasm of unspecified part of unspecified bronchus or lung (HCC) [facility]* Diagnosis Lymphedema Other lymphedema documented in this encounter [facility]* Diagnosis Lymphedema- Primary Other lymphedema documented in this encounter [facility]* Diagnosis Ulcers of both lower legs (HCC)- Primary Ulcer of lower limb, unspecified documented in this encounter [facility]* Diagnosis Lung nodules- Primary Other nonspecific abnormal finding of lung field documented in this encounter [facility]* Diagnosis Ulcers of both lower legs (HCC)- Primary Ulcer of lower limb, unspecified Lymphedema Other lymphedema Pressure injury of buttock, stage 2, unspecified laterality (HCC) Physical debility Debility, unspecified Lung nodules Other nonspecific abnormal finding of lung field 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) Hyponatremia Hyposmolality and/or hyponatremia Anemia, unspecified type documented in this encounter [facility]* Diagnosis PAD (peripheral artery disease) (HCC)- Primary Peripheral vascular disease, unspecified Dermatophytosis of nail Lymphedema Other lymphedema documented in this encounter [facility]* Diagnosis Impacted cerumen of left ear- Primary Impacted cerumen Pressure injury of buttock, stage 2, unspecified laterality (HCC) Physical debility Debility, unspecified Lymphedema Other lymphedema documented in this encounter [facility]* Diagnosis Lung nodules Other nonspecific abnormal finding of lung field documented in this encounter [facility]* Diagnosis Malignant neoplasm of unspecified part of unspecified bronchus or lung (HCC)- Primary documented in this [facility] Advance Directives No Advanced Directives Records FoundDocuments on File Type Date Recorded Patient Academic Affairs Manager Expl anation Advance Directive(s) 07/03/2021 1:23 PM Documents on File Type Date Recorded Patient Academic Affairs Manager Expl anation Advance Directive(s) 07/03/2021 1:23 PM Reason for Referral Specialty Diagnoses / Procedures Referred By Contac t Referred To Contact CT IMAGING Diagnoses Neoplasm of lung Procedures CT CHEST WO IVCON DIAGNOSTIC COMPUTED TOMOGRAPHY THORAX W/O CNTRST Nghia Harvey MD, [address] [place] [address] Ct Imaging Referral ID Status Reason Start Date Expiration Date Visits Requested Visits Authorized [id number] Pending Review Auto-Generat ed Referral 01/13/2022 12/06/2022 1 1 Referral ID Status Reason Start Date Expiration Date V isits Requested Visits Authorized [id number] Closed Auto-Generate d Referral 01/13/2022 12/06/2022 1 1 Referral ID Status Reason Start Date Expiration Date V isits Requested Visits Authorized [id number] Closed Auto-Generate d Referral 05/02/2022 03/01/2023 1 1 Specialty Diagnoses / Procedures Referred By Contac t Referred To Contact Cardiology Diagnoses Preoperative examination Bradycardia Coronary artery disease involving [place] coronary artery of [place] heart without angina pectoris Procedures CONSULT TO CARDIOLOGY OFFICE/[facility] MDM 60-74 MINUTES Inocente Nichols MD [address] [place] [address] Referral ID Status Reason Start Date Expiration Date Visits Requested Visits Authorized [id number] Authorized PCP Requested Referral 2 05/30/2023 1 1 Specialty Diagnoses / Procedures Referred By Contac t [facility] Diagnoses Preoperative examination Procedures ECG COMPLETE ECG ROUTINE ECG W/LEAST 12 LDS W/I&R Inocente Nichols MD [address] [place] [address] [facility] [place] [address] [place] [address] Referral ID Status Reason Start Date Expiration Date Visits Requested Visits Authorized [id number] Pending Review Auto-Generat ed Referral 2 05/30/2023 1 1 Referral ID Status Reason Start Date Expiration Date Visits Requested Visits Authorized [id number] Authorized Auto-Generat ed Referral 10/01/2022 08/02/2023 1 1 Specialty Diagnoses / Procedures Referred By Contac t Referred To Contact CT IMAGING Diagnoses Malignant neoplasm of unspecified part of unspecified bronchus or lung (HCC) Procedures CT CHEST WO IVCON DIAGNOSTIC COMPUTED TOMOGRAPHY THORAX W/O Nghia Downing MD, [address] [place] [address] Ct Imaging Referral ID Status Reason Start Date Expiration Date Visits Requested Visits Authorized [id number] Authorized Auto-Generat ed Referral 02/11/2023 01/11/2024 1 1 Specialty Diagnoses / Procedures Referred By Contac t Referred To Contact CT IMAGING Diagnoses Lung nodules Procedures CT CHEST WO IVCON DIAGNOSTIC COMPUTED TOMOGRAPHY THORAX W/O Nghia Downing MD, [address] [facility] [place] [address] Ct Imaging Referral ID Status Reason Start Date Expiration Date Visits Requested Visits Authorized [id number] Authorized Auto-Generat ed Referral 05/21/2023 03/19/2024 1 1 Specialty Diagnoses / Procedures Referred By Contac t Referred To Contact Diagnoses Lung nodules 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) Procedures CONSULT TO PULMONARY MEDICINE Inocente Nichols MD [address] [place] [id number] Referral ID Status Reason Start Date Expiration Date Visits Requested Visits Authorized [id number] Ref Not Required PCP Requested Referral 02/27/2023 05/28/2023 1 1 Specialty Diagnoses / Procedures Referred By Contac t Referred To Contact CT IMAGING Diagnoses Malignant neoplasm of unspecified part of unspecified bronchus or lung (HCC) Procedures CT CHEST WO IVCON DIAGNOSTIC COMPUTED TOMOGRAPHY THORAX W/O Nghia Downing MD, [address] [facility] [place] [address] [place] [id number] Referral ID Status Reason Start Date Expiration Date Visits Requested Visits Authorized [id number] Authorized Auto-Generat ed Referral 08/19/2023 07/16/2024 1 [...] or prosecute any alcohol or drug abuse patient.[facility] the event this information is protected by the Federal Confidentiality of Alcohol and Drug Abuse Patient Records regulations: The Federal rules restrict any use of the information to criminally investigate or prosecute any alcohol or drug abuse patient.[facility] event this information is protected by the Federal Confidentiality of Alcohol and Drug Abuse Patient Records regulations: The Federal rules restrict any use of the information to criminally investigate or prosecute any alcohol or drug abuse patient.[facility] event this information is protected by the Federal Confidentiality of Alcohol and Drug Abuse Patient Records regulations: The Federal rules restrict any use of the information to criminally investigate or prosecute any alcohol or drug abuse patient.[facility] event this information is protected by the Federal Confidentiality of Alcohol and Drug Abuse Patient Records regulations: The Federal rules restrict any use of the information to criminally investigate or prosecute any alcohol or drug abuse patient.[facility] event this information is protected by the Federal Confidentiality of Alcohol and Drug Abuse Patient Records regulations: The Federal rules restrict any use of the information to criminally investigate or prosecute any alcohol or drug abuse patient.[facility] event this information is protected by the Federal Confidentiality of Alcohol and Drug Abuse Patient Records regulations: The Federal rules restrict any use of the information to criminally investigate or prosecute any alcohol or drug abuse patient.[facility] event this information is protected by the Federal Confidentiality of Alcohol and Drug Abuse Patient Records regulations: The Federal rules restrict any use of the information to criminally investigate or prosecute any alcohol or drug abuse patient.[facility] event this information is protected by the Federal Confidentiality of Alcohol and Drug Abuse Patient Records regulations: The Federal rules restrict any use of the information to criminally investigate or prosecute any alcohol or drug abuse patient.[facility] event this information is protected by the Federal Confidentiality of Alcohol and Drug Abuse Patient Records regulations: The Federal rules restrict any use of the information to criminally investigate or prosecute any alcohol or drug abuse patient.[facility] event this information is protected by the Federal Confidentiality of Alcohol and Drug Abuse Patient Records regulations: The Federal rules restrict any use of the information to criminally investigate or prosecute any alcohol or drug abuse patient.[facility] event this information is protected by the Federal Confidentiality of Alcohol and Drug Abuse Patient Records regulations: The Federal rules restrict any use of the information to criminally investigate or prosecute any alcohol or drug abuse patient.[facility] event this information is protected by the Federal Confidentiality of Alcohol and Drug Abuse Patient Records regulations: The Federal rules restrict any use of the information to criminally investigate or prosecute any alcohol or drug abuse patient.[facility] event this information is protected by the Federal Confidentiality of Alcohol and Drug Abuse Patient Records regulations: The Federal rules restrict any use of the information to criminally investigate or prosecute any alcohol or drug abuse patient.[facility] event this information is protected by the Federal Confidentiality of Alcohol and Drug Abuse Patient Records regulations: The Federal rules restrict any use of the information to criminally investigate or prosecute any alcohol or drug abuse patient.[facility] event this information is protected by the Federal Confidentiality of Alcohol and Drug Abuse Patient Records regulations: The Federal rules restrict any use of the information to criminally investigate or prosecute any alcohol or drug abuse patient.[facility] event this information is protected by the Federal Confidentiality of Alcohol and Drug Abuse Patient Records regulations: The Federal rules restrict any use of the information to criminally investigate or prosecute any alcohol or drug abuse patient.[facility] event this information is protected by the Federal Confidentiality of Alcohol and Drug Abuse Patient Records regulations: The Federal rules restrict any use of the information to criminally investigate or prosecute any alcohol or drug abuse patient.[facility] event this information is protected by the Federal Confidentiality of Alcohol and Drug Abuse Patient Records regulations: The Federal rules restrict any use of the information to criminally investigate or prosecute any alcohol or drug abuse patient.[facility] event this information is protected by the Federal Confidentiality of Alcohol and Drug Abuse Patient Records regulations: The Federal rules restrict any use of the information to criminally investigate or prosecute any alcohol or drug abuse patient.[facility] event this information is protected by the Federal Confidentiality of Alcohol and Drug Abuse Patient Records regulations: The Federal rules restrict any use of the information to criminally investigate or prosecute any alcohol or drug abuse patient.[facility] event this information is protected by the Federal Confidentiality of Alcohol and Drug Abuse Patient Records regulations: The Federal rules restrict any use of the information to criminally investigate or prosecute any alcohol or drug abuse patient.[facility] event this information is protected by the Federal Confidentiality of Alcohol and Drug Abuse Patient Records regulations: The Federal rules restrict any use of the information to criminally investigate or prosecute any alcohol or drug abuse patient.[facility] event this information is protected by the Federal Confidentiality of Alcohol and Drug Abuse Patient Records regulations: The Federal rules restrict any use of the information to criminally investigate or prosecute any alcohol or drug abuse patient.[facility] event this information is protected by the Federal Confidentiality of Alcohol and Drug Abuse Patient Records regulations: The Federal rules restrict any use of the information to criminally investigate or prosecute any alcohol or drug abuse patient.[facility] event this information is protected by the Federal Confidentiality of Alcohol and Drug Abuse Patient Records regulations: The Federal rules restrict any use of the information to criminally investigate or prosecute any alcohol or drug abuse patient.[facility] event this information is protected by the Federal Confidentiality of Alcohol and Drug Abuse Patient Records regulations: The Federal rules restrict any use of the information to criminally investigate or prosecute any alcohol or drug abuse patient.[facility] event this information is protected by the Federal Confidentiality of Alcohol and Drug Abuse Patient Records regulations: The Federal rules restrict any use of the information to criminally investigate or prosecute any alcohol or drug abuse patient.[facility] event this information is protected by the Federal Confidentiality of Alcohol and Drug Abuse Patient Records regulations: The Federal rules restrict any use of the information to criminally investigate or prosecute any alcohol or drug abuse patient.[facility] event this information is protected by the Federal Confidentiality of Alcohol and Drug Abuse Patient Records regulations: The Federal rules restrict any use of the information to criminally investigate or prosecute any alcohol or drug abuse patient.[facility] event this information is protected by the Federal Confidentiality of Alcohol and Drug Abuse Patient Records regulations: The Federal rules restrict any use of the information to criminally investigate or prosecute any alcohol or drug abuse patient.[facility] event this information is protected by the Federal Confidentiality of Alcohol and Drug Abuse Patient Records regulations: The Federal rules restrict any use of the information to criminally investigate or prosecute any alcohol or drug abuse patient.[facility] event this information is protected by the Federal Confidentiality of Alcohol and Drug Abuse Patient Records regulations: The Federal rules restrict any use of the information to criminally investigate or prosecute any alcohol or drug abuse patient.[facility] event this information is protected by the Federal Confidentiality of Alcohol and Drug Abuse Patient Records regulations: The Federal rules restrict any use of the information to criminally investigate or prosecute any alcohol or drug abuse patient.[facility] event this information is protected by the Federal Confidentiality of Alcohol and Drug Abuse Patient Records regulations: The Federal rules restrict any use of the information to criminally investigate or prosecute any alcohol or drug abuse patient.[facility] event this information is protected by the Federal Confidentiality of Alcohol and Drug Abuse Patient Records regulations: The Federal rules restrict any use of the information to criminally investigate or prosecute any alcohol or drug abuse patient.[facility] event this information is protected by the Federal Confidentiality of Alcohol and Drug Abuse Patient Records regulations: The Federal rules restrict any use of the information to criminally investigate or prosecute any alcohol or drug abuse patient.[facility] the event this information is protected by the Federal Confidentiality of Alcohol and Drug Abuse Patient Records regulations: The Federal rules restrict any use of the information to criminally investigate or prosecute any alcohol or drug abuse patient.[facility] event this information is protected by the Federal Confidentiality of Alcohol and Drug Abuse Patient Records regulations: The Federal rules restrict any use of the information to criminally investigate or prosecute any alcohol or drug abuse patient.[facility] the event this information is protected by the Federal Confidentiality of Alcohol and Drug Abuse Patient Records regulations: The Federal rules restrict any use of the information to criminally investigate or prosecute any alcohol or drug abuse patient.[facility] the event this information is protected by the Federal Confidentiality of Alcohol and Drug Abuse Patient Records regulations: The Federal rules restrict any use of the information to criminally investigate or prosecute any alcohol or drug abuse patient.[facility] the event this information is protected by the Federal Confidentiality of Alcohol and Drug Abuse Patient Records regulations: The Federal rules restrict any use of the information to criminally investigate or prosecute any alcohol or drug abuse patient.[facility]In the event this information is protected by the Federal Confidentiality of Alcohol and Drug Abuse Patient Records regulations: The Federal rules restrict any use of the information to criminally investigate or prosecute any alcohol or drug abuse patient.[facility] DaytonIn the event this information is protected by the Federal Confidentiality of Alcohol and Drug Abuse Patient Records regulations: The Federal rules restrict any use of the information to criminally investigate or prosecute any alcohol or drug abuse patient.[facility] DaytonIn the event this information is protected by the Federal Confidentiality of Alcohol and Drug Abuse Patient Records regulations: The Federal rules restrict any use of the information to criminally investigate or prosecute any alcohol or drug abuse patient.[facility] DaytonIn the event this information is protected by the Federal Confidentiality of Alcohol and Drug Abuse Patient Records regulations: The Federal rules restrict any use of the information to criminally investigate or prosecute any alcohol or drug abuse patient.[facility] DaytonIn the event this information is protected by the Federal Confidentiality of Alcohol and Drug Abuse Patient Records regulations: The Federal rules restrict any use of the information to criminally investigate or prosecute any alcohol or drug abuse patient.[facility] DaytonIn the event this information is protected by the Federal Confidentiality of Alcohol and Drug Abuse Patient Records regulations: The Federal rules restrict any use of the information to criminally investigate or prosecute any alcohol or drug abuse patient.[facility] DaytonIn the event this information is protected by the Federal Confidentiality of Alcohol and Drug Abuse Patient Records regulations: The Federal rules restrict any use of the information to criminally investigate or prosecute any alcohol or drug abuse patient.[facility] DaytonIn the event this information is protected by the Federal Confidentiality of Alcohol and Drug Abuse Patient Records regulations: The Federal rules restrict any use of the information to criminally investigate or prosecute any alcohol or drug abuse patient.[facility] DaytonIn the event this information is protected by the Federal Confidentiality of Alcohol and Drug Abuse Patient Records regulations: The Federal rules restrict any use of the information to criminally investigate or prosecute any alcohol or drug abuse patient.[facility] DaytonIn the event this information is protected by the Federal Confidentiality of Alcohol and Drug Abuse Patient Records regulations: The Federal rules restrict any use of the information to criminally investigate or prosecute any alcohol or drug abuse patient.[facility] DaytonIn the event this information is protected by the Federal Confidentiality of Alcohol and Drug Abuse Patient Records regulations: The Federal rules restrict any use of the information to criminally investigate or prosecute any alcohol or drug abuse patient.[facility] DaytonIn the event this information is protected by the Federal Confidentiality of Alcohol and Drug Abuse Patient Records regulations: The Federal rules restrict any use of the information to criminally investigate or prosecute any alcohol or drug abuse patient.[facility] DaytonIn the event this information is protected by the Federal Confidentiality of Alcohol and Drug Abuse Patient Records regulations: The Federal rules restrict any use of the information to criminally investigate or prosecute any alcohol or drug abuse patient.[facility] DaytonIn the event this information is protected by the Federal Confidentiality of Alcohol and Drug Abuse Patient Records regulations: The Federal rules restrict any use of the information to criminally investigate or prosecute any alcohol or drug abuse patient.[facility] DaytonIn the event this information is protected by the Federal Confidentiality of Alcohol and Drug Abuse Patient Records regulations: The Federal rules restrict any use of the information to criminally investigate or prosecute any alcohol or drug abuse patient.[facility] DaytonIn the event this information is protected by the Federal Confidentiality of Alcohol and Drug Abuse Patient Records regulations: The Federal rules restrict any use of the information to criminally investigate or prosecute any alcohol or drug abuse patient.[facility] DaytonIn the event this information is protected by the Federal Confidentiality of Alcohol and Drug Abuse Patient Records regulations: The Federal rules restrict any use of the information to criminally investigate or prosecute any alcohol or drug abuse patient.[facility] DaytonIn the event this information is protected by the Federal Confidentiality of Alcohol and Drug Abuse Patient Records regulations: The Federal rules restrict any use of the information to criminally investigate or prosecute any alcohol or drug abuse patient.[facility] DaytonIn the event this information is protected by the Federal Confidentiality of Alcohol and Drug Abuse Patient Records regulations: The Federal rules restrict any use of the information to criminally investigate or prosecute any alcohol or drug abuse patient.[facility] DaytonIn the event this information is protected by the Federal Confidentiality of Alcohol and Drug Abuse Patient Records regulations: The Federal rules restrict any use of the information to criminally investigate or prosecute any alcohol or drug abuse patient.[facility] DaytonIn the event this information is protected by the Federal Confidentiality of Alcohol and Drug Abuse Patient Records regulations: The Federal rules restrict any use of the information to criminally investigate or prosecute any alcohol or drug abuse patient.[facility] DaytonIn the event this information is protected by the Federal Confidentiality of Alcohol and Drug Abuse Patient Records regulations: The Federal rules restrict any use of the information to criminally investigate or prosecute any alcohol or drug abuse patient.[facility] DaytonIn the event this information is protected by the Federal Confidentiality of Alcohol and Drug Abuse Patient Records regulations: The Federal rules restrict any use of the information to criminally investigate or prosecute any alcohol or drug abuse patient.[facility] DaytonIn the event this information is protected by the Federal Confidentiality of Alcohol and Drug Abuse Patient Records regulations: The Federal rules restrict any use of the information to criminally investigate or prosecute any alcohol or drug abuse patient.[facility] DaytonIn the event this information is protected by the Federal Confidentiality of Alcohol and Drug Abuse Patient Records regulations: The Federal rules restrict any use of the information to criminally investigate or prosecute any alcohol or drug abuse patient.[facility] DaytonIn the event this information is protected by the Federal Confidentiality of Alcohol and Drug Abuse Patient Records regulations: The Federal rules restrict any use of the information to criminally investigate or prosecute any alcohol or drug abuse patient.[facility] DaytonIn the event this information is protected by the Federal Confidentiality of Alcohol and Drug Abuse Patient Records regulations: The Federal rules restrict any use of the information to criminally investigate or prosecute any alcohol or drug abuse patient.[facility] DaytonIn the event this information is protected by the Federal Confidentiality of Alcohol and Drug Abuse Patient Records regulations: The Federal rules restrict any use of the information to criminally investigate or prosecute any alcohol or drug abuse patient.[facility] DaytonIn the event this information is protected by the Federal Confidentiality of Alcohol and Drug Abuse Patient Records regulations: The Federal rules restrict any use of the information to criminally investigate or prosecute any alcohol or drug abuse patient.[facility] DaytonIn the event this information is protected by the Federal Confidentiality of Alcohol and Drug Abuse Patient Records regulations: The Federal rules restrict any use of the information to criminally investigate or prosecute any alcohol or drug abuse patient.[facility] DaytonIn the event this information is protected by the Federal Confidentiality of Alcohol and Drug Abuse Patient Records regulations: The Federal rules restrict any use of the information to criminally investigate or prosecute any alcohol or drug abuse patient.[facility] DaytonIn the event this information is protected by the Federal Confidentiality of Alcohol and Drug Abuse Patient Records regulations: The Federal rules restrict any use of the information to criminally investigate or prosecute any alcohol or drug abuse patient.[facility] DaytonIn the event this information is protected by the Federal Confidentiality of Alcohol and Drug Abuse Patient Records regulations: The Federal rules restrict any use of the information to criminally investigate or prosecute any alcohol or drug abuse patient.[facility] DaytonIn the event this information is protected by the Federal Confidentiality of Alcohol and Drug Abuse Patient Records regulations: The Federal rules restrict any use of the information to criminally investigate or prosecute any alcohol or drug abuse patient.[facility] DaytonIn the event this information is protected by the Federal Confidentiality of Alcohol and Drug Abuse Patient Records regulations: The Federal rules restrict any use of the information to criminally investigate or prosecute any alcohol or drug abuse patient.[facility] DaytonIn the event this information is protected by the Federal Confidentiality of Alcohol and Drug Abuse Patient Records regulations: The Federal rules restrict any use of the information to criminally investigate or prosecute any alcohol or drug abuse patient.[facility] DaytonIn the event this information is protected by the Federal Confidentiality of Alcohol and Drug Abuse Patient Records regulations: The Federal rules restrict any use of the information to criminally investigate or prosecute any alcohol or drug abuse patient.[facility] DaytonIn the event this information is protected by the Federal Confidentiality of Alcohol and Drug Abuse Patient Records regulations: The Federal rules restrict any use of the information to criminally investigate or prosecute any alcohol or drug abuse patient.[facility] DaytonIn the event this information is protected by the Federal Confidentiality of Alcohol and Drug Abuse Patient Records regulations: The Federal rules restrict any use of the information to criminally investigate or prosecute any alcohol or drug abuse patient.[facility] DaytonIn the event this information is protected by the Federal Confidentiality of Alcohol and Drug Abuse Patient Records regulations: The Federal rules restrict any use of the information to criminally investigate or prosecute any alcohol or drug abuse patient.[facility] Reason for Visit (unrecogniz ed section and content) Specialty Diagnoses / Procedures Referred By Contac t Referred To Contact CT IMAGING Diagnoses Neoplasm of lung Procedures CT CHEST WO IVCON DIAGNOSTIC COMPUTED TOMOGRAPHY THORAX W/O Nghia Downing MD, [address] [place] [address] Ct Imaging Referral ID Status Reason Start Date Expiration Date V isits Requested Visits Authorized [id number] Closed Auto-Generate d Referral 05/02/2022 03/01/2023 1 [...] Reason Comments Home Health Orders Reason Comments [facility] PT POC Reason Comments Results Reason Comments Orders for wound care Reason Comments Follow Up Rx Refills Reason Comments leg swelling wound on right leg Referral ID Status Reason Start Date Expiration Date V isits Requested Visits Authorized [id number] Closed Auto-Generate d Referral 01/13/2022 12/06/2022 1 1 Reason Comments 1 week follow up leg Reason Comments Scans schedule PET at [facility] Reason Comments 2 month follow-up Reason Comments Injections Specialty Diagnoses / Procedures Referred By Conttiffani t Referred To Contact Pain Management / PAIN MANAGEMENT Diagnoses Trochanteric bursitis, right hip Right trochanteric bursal injection (in office, no image guidance) Procedures ARTHROCENTESIS ASPIR&/INJ MAJOR JT/BURSA W/O US SPECIALTY INJECTION Juancho Carpenter MD Fox, Kermit, MD [address] [place] [id number] Referral ID Status Reason Start Date Expiration Date Visits Re quested Visits Authorized [id number] Closed 02/27/2022 05/28/2022 1 1 Reason Comments Patient Update Reason Comments FYI-No Action Needed Reason Comments Hospital F/U Reason Comments [facility] Update Reason Comments Medication Question Reason Comments Faxed to [facility] Reason Onset Date Comments Opened [...] appetite Reason Comments patient information Reason Comments [facility], [facility] Pt up date/apt for today Reason Comments [facility] HH Orders Reason Comments Home Health update Reason Onset Date Comments Refill Request 01/06/2023 Reason Comments Erroneous encounter-disregard Reason Comments Opened In Error Reason Comments 4 week follow up Reason Comments nail care New Specialty Diagnoses / Procedures Referred By Contac t Referred To Contact Podiatry Diagnoses Dermatophytosis of nail Lymphedema Procedures CONSULT TO PODIATRY OFFICE/OUTPATIENT [facility] 60-74 MINUTES Inocente Nichols MD [address] [place] [address] Referral ID Status Reason Start Date Expiration Date V isits Requested Visits Authorized [id number] Closed PCP Requested Referral 12/26/2022 12/26/2023 [address] Specialty Diagnoses / Procedures Referred By Contac t Referred To Contact CT IMAGING Diagnoses Lung nodules Procedures CT CHEST WO IVCON DIAGNOSTIC COMPUTED TOMOGRAPHY THORAX W/O CNTRST Nghia Harvey MD, MD [address] [place] [address] [place] [address] Referral ID Status Reason Start Date Expiration Date V isits Requested Visits Authorized [id number] Closed Auto-Generate d Referral 05/21/2023 03/19/2024 1 1 Reason Comments Appointment Care Teams (unrecognized sec tion and content) Waist Cutter Relationship Specialty Start Date End Date Inocente Nichols MD [address] [place] [address] PCP - General Internal Medicine 11/30/20 Nghia Harvey MD, [address] [place] [address] Physician Radiation Oncology 07/10/21 Waist Cutter Relationship Specialty Start Date End Date Inocente Nichols MD [address] [place] [address] PCP - General Internal Medicine 11/30/20 Nghia Harvey MD, [address] [facility] [place] [address] Physician Radiation Oncology 07/10/21 Waist Cutter Relationship Specialty Start Date End Date Inocente Nichols MD [address] [place] [address] PCP - General Internal Medicine 11/30/20 Nghia Harvey MD, [address] [facility] [place] [address] Physician Radiation Oncology 07/10/21 Waist Cutter Relationship Specialty Start Date End Date Inocente Nichols MD [address] [place] [address] PCP - General Internal Medicine 11/30/20 Nghia Harvey MD, [address] [place] [address] Physician Radiation Oncology 07/10/21 Waist Cutter Relationship Specialty Start Date End Date Inocente Nichols MD [address] [place] [address] PCP - General Internal Medicine 11/30/20 Nghia Harvey MD, [address] [facility] [place] [address] Physician Radiation Oncology 07/10/21 Waist Cutter Relationship Specialty Start Date End Date Inocente Nichols MD [address] [place] [address] PCP - General Internal Medicine 11/30/20 Nghia Harvey MD, [address] [facility] [place] [address] Physician Radiation Oncology 07/10/21 Waist Cutter Relationship Specialty Start Date End Date Inocente Nichols MD [address] [place] [address] PCP - General Internal Medicine 11/30/20 Nghia Harvey MD, [address] [facility] [place] [address] Physician Radiation Oncology 07/10/21 Waist Cutter Relationship Specialty Start Date End Date Inocente Nichols MD [address] [place] [address] PCP - General Internal Medicine 11/30/20 Nghia Harvey MD, [address] [place] [address] Physician Radiation Oncology 07/10/21 Waist Cutter Relationship Specialty Start Date End Date Inocente Nichols MD [address] [facility] [address] PCP - General Internal Medicine 11/30/20 Nghia Harvey MD, [address] [facility] [address] Physician Radiation Oncology 07/10/21 Waist Cutter Relationship Specialty Start Date End Date Inocente Nichols MD [address] [facility] [place] [address] PCP - General Internal Medicine 11/30/20 Nghia Harvey MD, [address] [facility] [address] Physician Radiation Oncology 07/10/21 Waist Cutter Relationship Specialty Start Date End Date Inocente Nichols MD [address] [facility] [place] [address] PCP - General Internal Medicine 11/30/20 Nghia Harvey MD, [address] [facility] [address] Physician Radiation Oncology 07/10/21 Waist Cutter Relationship Specialty Start Date End Date Inocente Nichols MD [address] [facility] [place] [address] PCP - General Internal Medicine 11/30/20 Nghia Harvey MD, [address] [facility] [address] Physician Radiation Oncology 07/10/21 Waist Cutter Relationship Specialty Start Date End Date Inocente Nichols MD [address] [facility] [place] [address] PCP - General Internal Medicine 11/30/20 Nghia Harvey MD, [address] [facility] [address] Physician Radiation Oncology 07/10/21 Waist Cutter Relationship Specialty Start Date End Date Inocente Nichols MD [address] [facility] [address] PCP - General Internal Medicine 11/30/20 Nghia Harvey MD, [address] [facility] [address] Physician Radiation Oncology 07/10/21 Waist Cutter Relationship Specialty Start Date End Date Inocente Nichols MD [address] [facility] [place] [address] PCP - General Internal Medicine 11/30/20 Nghia Harvey MD, [address] [facility] [address] Physician Radiation Oncology 07/10/21 Waist Cutter Relationship Specialty Start Date End Date Inocente Nichols MD [address] [facility] [place] [address] PCP - General Internal Medicine 11/30/20 Nghia Harvey MD, [address] [facility] [address] Physician Radiation Oncology 07/10/21 Waist Cutter Relationship Specialty Start Date End Date Inocente Nichols MD [address] [facility] [place] [address] PCP - General Internal Medicine 11/30/20 Nghia Harvey MD, [address] [facility] [address] Physician Radiation Oncology 07/10/21 Waist Cutter Relationship Specialty Start Date End Date Inocente Nichols MD [address] [place] [address] PCP - General Internal Medicine 11/30/20 Nghia Harvey MD, [address] [facility] [place] [address] Physician Radiation Oncology 07/10/21 Waist Cutter Relationship Specialty Start Date End Date Inocente Nichols MD [address] [place] [address] PCP - General Internal Medicine 11/30/20 Nghia Harvey MD, [address] [facility] [address] Physician Radiation Oncology 07/10/21 Waist Cutter Relationship Specialty Start Date End Date Inocente Nichols MD [address] [place] [address] PCP - General Internal Medicine 11/30/20 Nghia Harvey MD, [address] [facility] [address] Physician Radiation Oncology 07/10/21 Waist Cutter Relationship Specialty Start Date End Date Inocente Nichols MD [address] [place] [address] PCP - General Internal Medicine 11/30/20 Nghia Harvey MD, [address] [facility] [place] [address] Physician Radiation Oncology 07/10/21 Waist Cutter Relationship Specialty Start Date End Date Inocente Nichols MD [address] [place] [address] PCP - General Internal Medicine 11/30/20 Nghia Harvey MD, [address] [facility] [address] Physician Radiation Oncology 07/10/21 Waist Cutter Relationship Specialty Start Date End Date Inocente Nichols MD [address] [place] [address] PCP - General Internal Medicine 11/30/20 Nghia Harvey MD, [address] [facility] [place] [address] Physician Radiation Oncology 07/10/21 Waist Cutter Relationship Specialty Start Date End Date Inocente Nichols MD [address] [place] [address] PCP - General Internal Medicine 11/30/20 Nghia Harvey MD, [address] [facility] [address] Physician Radiation Oncology 07/10/21 Waist Cutter Relationship Specialty Start Date End Date Inocente Nichols MD [address] [place] [address] PCP - General Internal Medicine 11/30/20 Nghia Harvey MD, [address] [facility] [place] [address] Physician Radiation Oncology 07/10/21 Waist Cutter Relationship Specialty Start Date End Date Inocente Nichols MD [address] [place] [address] PCP - General Internal Medicine 11/30/20 Nghia Harvey MD, [address] [facility] [place] [place] [address] Physician Radiation Oncology 07/10/21 Waist Cutter Relationship Specialty Start Date End Date Inocente Nichols MD [address] [place] [address] PCP - General Internal Medicine 11/30/20 Nghia Harvey MD, [address] [place] [address] Physician Radiation Oncology 07/10/21 Waist Cutter Relationship Specialty Start Date End Date Inocente Nichols MD [address] [place] [address] PCP - General Internal Medicine 11/30/20 Nghia Harvey MD, [address] [place] [address] Physician Radiation Oncology 07/10/21 Waist Cutter Relationship Specialty Start Date End Date Inocente Nichols MD [address] [place] [address] PCP - General Internal Medicine 11/30/20 Nghia Harvey MD, [address] [facility] [place] [address] Physician Radiation Oncology 07/10/21 Waist Cutter Relationship Specialty Start Date End Date Inocente Nichols MD [address] [place] [address] PCP - General Internal Medicine 11/30/20 Nghia Harvey MD, [address] [place] [address] Physician Radiation Oncology 07/10/21 Waist Cutter Relationship Specialty Start Date End Date Inocente Nichols MD [address] [place] [address] PCP - General Internal Medicine 11/30/20 Nghia Harvey MD, [address] [place] [address] Physician Radiation Oncology 07/10/21 Waist Cutter Relationship Specialty Start Date End Date Inocente Nichols MD [address] [place] [address] PCP - General Internal Medicine 11/30/20 Nghia Harvey MD, [address] [facility] [address] Physician Radiation Oncology 07/10/21 Waist Cutter Relationship Specialty Start Date End Date Inocente Nichols MD [address] [facility] [address] PCP - General Internal Medicine 11/30/20 Nghia Harvey MD, [address] [facility] [address] Physician Radiation Oncology 07/10/21 Waist Cutter Relationship Specialty Start Date End Date Inocente Nichols MD [address] [facility] [address] PCP - General Internal Medicine 11/30/20 Nghia Harvey MD, [address] [facility] [address] Physician Radiation Oncology 07/10/21 Waist Cutter Relationship Specialty Start Date End Date Inocente Nichols MD [address] [facility] [place] [address] PCP - General Internal Medicine 11/30/20 Nghia Harvey MD, [address] [facility] [address] Physician Radiation Oncology 07/10/21 Waist Cutter Relationship Specialty Start Date End Date Inocente Nichols MD [address] [facility] [place] [address] PCP - General Internal Medicine 11/30/20 Nghia Harvey MD, [address] [place] [address] Physician Radiation Oncology 07/10/21 Waist Cutter Relationship Specialty Start Date End Date Inocente Nichols MD [address] [place], [place] [address] PCP - General Internal Medicine 11/30/20 Nghia Harvey MD, [address] [place], [place] [address] [phone] Physician Radiation Oncology 07/10/21 Waist Cutter Relationship Specialty Start Date End Date Inocente Nichols MD [address] [place] [address] PCP - General Internal Medicine 11/30/20 Nghia Harvey MD, [address] [place] [address] Physician Radiation Oncology 07/10/21 Waist Cutter Relationship Specialty Start Date End Date Inocente Nichols MD [address] [place], [place] [id number] PCP - General Internal Medicine 11/30/20 Nghia Harvey MD, [address] [place], [place] [id number] [phone] Physician Radiation Oncology 07/10/21 Waist Cutter Relationship Specialty Start Date End Date Inocente Nichols MD [address] [place], [place] [address] PCP - General Internal Medicine 11/30/20 Nghia Harvey MD, [address] [place] [address] Physician Radiation Oncology 07/10/21 Waist Cutter Relationship Specialty Start Date End Date Inocente Nichols MD [address] [place], [place] [address] PCP - General Internal Medicine 11/30/20 Nghia Harvey MD, [address] [place], [place] [address] [phone] Physician Radiation Oncology 07/10/21 Waist Cutter Relationship Specialty Start Date End Date Inocente Nichols MD [address] [place] [address] PCP - General Internal Medicine 11/30/20 Nghia Harvey MD, [address] [place] [place] [address] Physician Radiation Oncology 07/10/21 Waist Cutter Relationship Specialty Start Date End Date Inocente Nichols MD [address] [place], [place] [address] PCP - General Internal Medicine 11/30/20 Nghia Harvey MD, [address] [place], [place] [address] [phone] Physician Radiation Oncology 07/10/21 Waist Cutter Relationship Specialty Start Date End Date Inocente Nichols MD [address] [place], [place] [id number] PCP - General Internal Medicine 11/30/20 Nghia Harvey MD, [address] [place] [address] Physician Radiation Oncology 07/10/21 Waist Cutter Relationship Specialty Start Date End Date Inocente Nichols MD [address] [place] [address] PCP - General Internal Medicine 11/30/20 Nghia Harvey MD, [address] [place], [place] [address] Physician Radiation Oncology 07/10/21 (unrecognized sect ion and content) No Status Records FoundNo Status Records Found INFORMATION SOURCE (unrecogn ized section and content) DATE CREATED AUTHOR AUTHOR'S ORGANIZ ATION 06/20/2023 [facility] FOR RECORDS PERTAINING TO PATIENTS WHO ARE [...] BE BASED ON THE PRIMARY CLINICAL RECORDS. [employer] provides no warranty or guarantee of the accuracy or completeness of information in this document.
[2023-07-17 07:40] LABS: Hemoglobin 8.7 g/dL (13.0-16.5); Mean Corp Hgb Conc 31.1 g/dL (32-36); Mean Corpuscular Hgb 29.2 pg (27.0-32.0); Mean Platelet Vol. 9.8 fl (6.2-12.0); Platelet Count 547 K/mm3 (150-450); RBC Distribution Width CV 14.8 % (11.6-14.6); RBC Distribution Width SD 49.8 fl (35.1-43.9); Red Blood Count 2.98 M/mm3 (4.6-6.2); White Blood Count 9.8 K/mm3 (4.4-11.0)
[2023-07-17 08:11] LABS: Vitamin D,25 Hydroxy 60.4 ng/mL
[2023-07-17 08:19] LABS: ALB/GLOB Ratio 0.6 RATIO (0.9-2.4); AST(SGOT) 14 U/L (15-37); Alanine Aminotransfer ALT/SGPT 16 U/L (16-61); Albumin, Serum 2.5 g/dL (3.2-5.0); Alkaline Phosphatase 161 U/L (45-117); Anion Gap 4 (5-15); BUN 16 mg/dL (7-18); BUN/Creat Ratio 24.8 RATIO (10-20); Calcium,Total 8.7 mg/dL (8.5-10.1); Chloride 96 mmol/L (98-107); Creatinine, Serum 0.64 mg/dL (0.70-1.30); EST Glomerular Filtration Rate 128 mL/min (>60); Est Glom Filt Rate - Afr Amer 155 mL/min (>60); Globulin 4.5 g/dL (2.2-4.2); Glucose 120 mg/dL (74-106); Potassium 6.2 mmol/L (3.5-5.1); Sodium Level 129 mmol/L (136-145)
== END ==
LOC: OLS.SW 06:36
PROVIDERS: PCP Family Medicine; Visit Provider Family Medicine
DX: I48.91 Unspecified atrial fibrillation (principal); D64.9 Anemia, unspecified; F10.20 Alcohol dependence, uncomplicated; E55.9 Vitamin D deficiency, unspecified; E87.1 Hypo-osmolality and hyponatremia
CPT/HCPCS: 36415; 80053; 82140; 82306; 85027

== ENCOUNTER → 2023-07-21 | Outpatient (REF) | payer MEDICARE, MEDICAID, SELFPAY ==
[2023-07-21 08:27] LABS: Hematocrit 30.4 % (40-54); Hemoglobin 9.4 g/dL (13.0-16.5); Mean Corp Hgb Conc 30.9 g/dL (32-36); Mean Corpuscular Hgb 31.9 pg (27.0-32.0); Mean Corpuscular Volume 103.1 fL (80-94); POSITIVE MORPHOLOGY YES; Platelet Count 335 K/mm3 (150-450); RBC Distribution Width CV 17.5 % (11.6-14.6); RBC Distribution Width SD 66.4 fl (35.1-43.9); Red Blood Count 2.95 M/mm3 (4.6-6.2); White Blood Count 7.4 K/mm3 (4.4-11.0)
[2023-07-21 08:29] LABS: Scan Indicated on CBC? Y/N YES- FLAGS NOTED
[2023-07-21 09:11] LABS: ALB/GLOB Ratio 0.6 RATIO (0.9-2.4); AST(SGOT) 16 U/L (15-37); Alanine Aminotransfer ALT/SGPT 18 U/L (16-61); Albumin, Serum 2.9 g/dL (3.2-5.0); Alkaline Phosphatase 164 U/L (45-117); Anion Gap 5 (5-15); BUN 10 mg/dL (7-18); BUN/Creat Ratio 19.8 RATIO (10-20); Calcium,Total 9.4 mg/dL (8.5-10.1); Chloride 94 mmol/L (98-107); EST Glomerular Filtration Rate 170 mL/min (>60); Est Glom Filt Rate - Afr Amer 206 mL/min (>60); Globulin 4.9 g/dL (2.2-4.2); Glucose 112 mg/dL (74-106); Protein, Total 7.8 g/dL (6.4-8.2); Sodium Level 131 mmol/L (136-145)
== END ==
LOC: OLS.SW 05:00
PROVIDERS: PCP Family Medicine; Visit Provider Family Medicine
DX: D64.9 Anemia, unspecified (principal); J44.9 Chronic obstructive pulmonary disease, unspecified; F10.20 Alcohol dependence, uncomplicated
CPT/HCPCS: 36415; 80053; 82140; 85027

== ENCOUNTER → 2023-07-23 | Outpatient (REF) | payer MEDICARE, MEDICAID, SELFPAY ==
--- OUTSIDE RECORDS SUMMARY | 2023-07-23 04:48 | XMS RPT_ITS | CCD ---
Author Name Unknown Address [address] [place] [address] Organization [facility] Care Team Providers Care Abalone Fisherman Name Role Phone Simone RUBIN, Inocente Curtis Primary Care Provider [phone] Wes RUBIN MD, Nghia Unavailable WES RUBIN, [...] Unavailable INOCENTE NICHOLS Primary Care Unavailable INOCENTE NICHOSL Attending Unavailable INOCENTE NICHOLS Primary Care Unavailable WES RUBIN, NGHIA Attending Unavailable NGHIA HARVEY MD Referring Unavailable INOCENTE NICHOLS Primary Care Unavailable [...] to adverse reactions to drug 04-01-2023 Unknown [facility] Work Phone: Medications Current Medications Medication Drug [...] Drug Class(es) Dates Sig (Normalized) Sig (Original) [id number] 200 actuat albuterol 0.09 mg/actuat metered dose [...] Coronary atherosclerosis; Translations: [Atherosclerotic heart disease of [place] coronary artery without angina pectoris] Onset: 1 [...] 98.91 [degF] Inocente Nichols MD Work Phone: [facility] 04-21-2023 09:53-0400 Diastolic blood pressure 62 mm[Hg] Inocente Nichols MD Work Phone: [facility] 04-21-2023 09:53-0400 Heart rate 48 /min Inocente Nichols MD Work Phone: [facility] 04-21-2023 09:53-0400 Respiratory rate 24 /min Inocente Nichols MD Work Phone: [facility] 04-21-2023 09:53-0400 SaO2% (BldA) [Mass fraction] 94 % Inocente Nichols MD Work Phone: [facility] 04-21-2023 09:53-0400 Systolic blood pressure 136 mm[Hg] Inocente Nichols MD Work Phone: [facility] 02-27-2023 11:37-0400 Body temperature 98.4 [degF] Inocente Nichols MD Work Phone: [facility] 02-27-2023 11:37-0400 Diastolic blood pressure 69 mm[Hg] Inocente Nichols MD Work Phone: [facility] 02-27-2023 11:37-0400 Heart rate 46 /min Inocente Nichols MD Work Phone: [facility] 02-27-2023 11:37-0400 Respiratory rate 20 /min Inocente Nichols MD Work Phone: [facility] 02-27-2023 11:37-0400 Systolic blood pressure 136 mm[Hg] Inocente Nichols MD Work Phone: [facility] 11-13-2022 18:52-0400 Body temperature 98.49 [degF] Inocente Nichols MD Work Phone: [facility] 11-13-2022 18:52-0400 Body weight 108.41 kg Inocente Nichols MD Work Phone: [facility] 11-13-2022 18:52-0400 Diastolic blood pressure 70 mm[Hg] Inocente Nichols MD Work Phone: [facility] 11-13-2022 18:52-0400 Heart rate 56 /min Inocente Nichols MD Work Phone: [facility] 11-13-2022 18:52-0400 Respiratory rate 24 /min Inocente Nichols MD Work Phone: [facility] 11-13-2022 18:52-0400 SaO2% (BldA) [Mass fraction] 92 % Inocente Nichols MD Work Phone: [facility] 11-13-2022 18:52-0400 Systolic blood pressure 146 mm[Hg] Inocente Nichols MD Work Phone: [facility] 11-10-2022 15:09-0400 Diastolic blood pressure 78 mm[Hg] Nghia Harvey MD, MD Work Phone: [facility] 11-10-2022 15:09-0400 Heart rate 49 /min Nghia Harvey MD, MD Work Phone: [facility] 11-10-2022 15:09-0400 Systolic blood pressure 180 mm[Hg] Nghia Harvey MD, MD Work Phone: [facility] 11-10-2022 15:06-0400 Body temperature 97.81 [degF] Nghia Harvey MD, MD Work Phone: [facility] 11-10-2022 15:06-0400 Respiratory rate 24 /min Nghia Harvey MD, MD Work Phone: [facility] 11-10-2022 15:06-0400 SaO2% (BldA) [Mass fraction] 97 % Nghia Harvey MD, MD Work Phone: [facility] 08-11-2022 14:18-0500 Diastolic blood pressure 62 mm[Hg] Inocente Nichols MD Work Phone: [facility] 08-11-2022 14:18-0500 Heart rate 64 /min Inocente Nichols MD Work Phone: [facility] 08-11-2022 14:18-0500 Systolic blood pressure 132 mm[Hg] Inocente Nichols MD Work Phone: [facility] 08-11-2022 14:13-0500 Body temperature 97.5 [degF] Inocente Nichols MD Work Phone: [facility] 08-11-2022 14:13-0500 Body weight 112.95 kg Inocente Nichols MD Work Phone: [facility] 08-11-2022 14:13-0500 Respiratory rate 20 /min Inocente Nichols MD Work Phone: [facility] 07-16-2022 15:41-0500 Diastolic blood pressure 53 mm[Hg] Inocente Nichols MD Work Phone: [facility] 07-16-2022 15:41-0500 Heart rate 53 /min Inocente Nichols MD Work Phone: [facility] 07-16-2022 15:41-0500 Systolic blood pressure 129 mm[Hg] Inocente Nichols MD Work Phone: [facility] 07-16-2022 15:35-0500 Body temperature 97.9 [degF] Inocente Nichols MD Work Phone: [facility] 07-16-2022 15:35-0500 Body weight 114.76 kg Inocente Nichols MD Work Phone: [facility] 07-16-2022 15:35-0500 Respiratory rate 24 /min Inocente Nichols MD Work Phone: [facility] 07-16-2022 15:35-0500 SaO2% (BldA) [Mass fraction] 97 % Inocente Nichols MD Work Phone: [facility] 05-30-2022 13:33-0500 Body weight 111.58 kg Inocente Nichols MD Work Phone: [facility] 03-19-2022 13:21-0400 Diastolic blood pressure 69 mm[Hg] Inocente Nichols MD Work Phone: [facility] 03-19-2022 13:21-0400 Heart rate 55 /min Inocente Nichols MD Work Phone: [facility] 03-19-2022 13:21-0400 Systolic blood pressure 127 mm[Hg] Inocente Nichols MD Work Phone: [facility] 03-19-2022 13:15-0400 Body temperature 97.11 [degF] Inocente Nichols MD Work Phone: [facility] 03-19-2022 13:15-0400 Body weight 113.53 kg Inocente Nichols MD Work Phone: [facility] 03-19-2022 13:15-0400 Respiratory rate 24 /min Inocente Nichols MD Work Phone: [facility] 03-19-2022 13:15-0400 SaO2% (BldA) [Mass fraction] 94 % Inocente Nichols MD Work Phone: [facility] 02-27-2022 15:38-0400 Heart rate 49 /min Juancho Carpenter MD Work Phone: [facility] 02-27-2022 15:38-0400 Respiratory rate 18 /min Juancho Carpenter MD Work Phone: [facility] 02-27-2022 15:38-0400 SaO2% (BldA) [Mass fraction] 96 % Juancho Carpenter MD Work Phone: [facility] 02-06-2022 10:08-0400 Diastolic blood pressure 72 mm[Hg] Inocente Nichols MD Work Phone: [facility] 02-06-2022 10:08-0400 Heart rate 48 /min Inocente Nichols MD Work Phone: [facility] 02-06-2022 10:08-0400 Systolic blood pressure 156 mm[Hg] Inocente Nichols MD Work Phone: [facility] 02-06-2022 10:03-0400 Body temperature 97.3 [degF] Inocente Nichols MD Work Phone: [facility] 02-06-2022 10:03-0400 Body weight 117.75 kg Inocente Nichols MD Work Phone: [facility] 02-06-2022 10:03-0400 Respiratory rate 28 /min Inocente Nichols MD Work Phone: [facility] 02-06-2022 10:03-0400 SaO2% (BldA) [Mass fraction] 94 % Inocente Nichols MD Work Phone: [facility] 01-22-2022 13:44-0400 Body temperature 97.5 [degF] Valorie Allan APRN.CNP Work Phone: [facility] 01-22-2022 13:44-0400 Diastolic blood pressure 86 mm[Hg] Valorie Older CERTIFIED CREDIT COUNSELOR.CERTIFIED WELDING INSPECTOR Work Phone: [facility] 01-22-2022 13:44-0400 Heart rate 47 /min Valorie Older CERTIFIED CREDIT COUNSELOR.CERTIFIED WELDING INSPECTOR Work Phone: [facility] 01-22-2022 13:44-0400 Respiratory rate 22 /min Valorie Older CERTIFIED CREDIT COUNSELOR.CERTIFIED WELDING INSPECTOR Work Phone: [facility] 01-22-2022 13:44-0400 SaO2% (BldA) [Mass fraction] 96 % Valorie Older CERTIFIED CREDIT COUNSELOR.CERTIFIED WELDING INSPECTOR Work Phone: [facility] 01-22-2022 13:44-0400 Systolic blood pressure 146 mm[Hg] Valorie Older CERTIFIED CREDIT COUNSELOR.CERTIFIED WELDING INSPECTOR Work Phone: [facility] 01-15-2022 16:58-0400 Body temperature 97.59 [degF] Valorie Older CERTIFIED CREDIT COUNSELOR.CERTIFIED WELDING INSPECTOR Work Phone: [facility] 01-15-2022 16:58-0400 Body weight 118.84 kg Valorie Older CERTIFIED CREDIT COUNSELOR.CERTIFIED WELDING INSPECTOR Work Phone: [facility] 01-15-2022 16:58-0400 Diastolic blood pressure 68 mm[Hg] Valorie Older CERTIFIED CREDIT COUNSELOR.CERTIFIED WELDING INSPECTOR Work Phone: [facility] 01-15-2022 16:58-0400 Heart rate 50 /min Valorie Older CERTIFIED CREDIT COUNSELOR.CERTIFIED WELDING INSPECTOR Work Phone: [facility] 01-15-2022 16:58-0400 Respiratory rate 24 /min Valorie Older CERTIFIED CREDIT COUNSELOR.CERTIFIED WELDING INSPECTOR Work Phone: [facility] 01-15-2022 16:58-0400 SaO2% (BldA) [Mass fraction] 94 % Valorie Older CERTIFIED CREDIT COUNSELOR.CERTIFIED WELDING INSPECTOR Work Phone: [facility] 01-15-2022 16:58-0400 Systolic blood pressure 138 mm[Hg] Valorie Older CERTIFIED CREDIT COUNSELOR.CERTIFIED WELDING INSPECTOR Work Phone: [facility] 01-09-2022 14:33-0400 Heart rate 48 /min Juancho Carpenter MD Work Phone: [facility] 01-09-2022 14:33-0400 Respiratory rate 18 /min Juancho Carpenter MD Work Phone: [facility] 01-09-2022 14:33-0400 SaO2% (BldA) [Mass fraction] 98 % Juancho Carpenter MD Work Phone: [facility] 11-29-2021 16:46-0400 Body height 180.3 cm Inocente Nichols MD Work Phone: [facility] 11-29-2021 16:46-0400 Body temperature 98.2 [degF] Inocente Nichols MD Work Phone: [facility] 11-29-2021 16:46-0400 Diastolic blood pressure 66 mm[Hg] Inocente Nichols MD Work Phone: [facility] 11-29-2021 16:46-0400 Heart rate 48 /min Inocente Nichols MD Work Phone: [facility] 11-29-2021 16:46-0400 Respiratory rate 18 /min Inocente Nichols MD Work Phone: [facility] 11-29-2021 16:46-0400 SaO2% (BldA) [Mass fraction] 95 % Inocente Nichols MD Work Phone: [facility] 11-29-2021 16:46-0400 Systolic blood pressure 134 mm[Hg] Inocente Nichols MD Work Phone: [facility] 11-14-2021 11:45-0400 Heart rate 47 /min Juancho Carpenter MD Work Phone: [facility] 11-14-2021 11:45-0400 Respiratory rate 17 /min Juancho Carpenter MD Work Phone: [facility] 11-14-2021 11:45-0400 SaO2% (BldA) [Mass fraction] 94 % Juancho Carpenter MD Work Phone: [facility] 11-07-2021 08:04-0400 Body temperature 98.4 [degF] Edvin Cosby APRN.[facility] Work Phone: [facility] 11-07-2021 08:04-0400 Body weight 117.03 kg Edvin Cosby APRN.[facility] Work Phone: [facility] 11-07-2021 08:04-0400 Diastolic blood pressure 76 mm[Hg] Edvin Cosby APRN.[facility] Work Phone: [facility] 11-07-2021 08:04-0400 Heart rate 61 /min Edvin Cosby APRN.[facility] Work Phone: [facility] 11-07-2021 08:04-0400 Respiratory rate 18 /min Edvin Cosby APRN.[facility] Work Phone: [facility] 11-07-2021 08:04-0400 SaO2% (BldA) [Mass fraction] 94 % Edvin Cosby APRN.[facility] Work Phone: [facility] 11-07-2021 08:04-0400 Systolic blood pressure 128 mm[Hg] Edvin Cosby APRN.[facility] Work Phone: [facility] Encounters Encounter Date Encounter Type Care Provider Facility Start: 06-17-2023 Telephone encounter Nghia Braxton MD Work Phone: Radiation Oncology Procedures Date Procedure Procedure Detail Performing Clinician Start: 12-26-2022 Lipid 1996 panel - S ryan or Plasma Genesis Wang Work Phone: Start: 08-11-2022 [employer] COVI D-19 BIVALENT BOOSTER VACCINE, AGE 12+ [...] panel - Serum or Plasma Lipid Screening [facility] Start: 12-27-2027 LIPID SCREEN LIPID SCREEN [facility] Start: 12-06-2026 LIPID SCREEN LIPID SCREEN [facility] Start: 11-20-2026 LIPID SCREEN LIPID SCREEN [facility] Start: 02-25-2026 DIABETES SCREEN DIABETES SCREEN [facility] Start: 02-25-2026 Diabetes Screening Diabetes Screening [facility] Start: 01-21-2026 DIABETES SCREEN DIABETES SCREEN [facility] Start: 12-26-2025 DIABETES SCREEN DIABETES SCREEN [facility] Start: 12-18-2025 Urine microalbumin profile DTaP,Tdap,Td Vaccine (3 - Td or Tdap) [facility] Start: 05-30-2025 DIABETES SCREEN DIABETES SCREEN [facility] Start: 03-19-2025 DIABETES SCREEN DIABETES SCREEN [facility] Start: 02-06-2025 DIABETES SCREEN DIABETES SCREEN [facility] Start: 12-06-2024 DIABETES SCREEN DIABETES SCREEN [facility] Start: 11-20-2024 DIABETES SCREEN DIABETES SCREEN [facility] Start: 04-21-2024 Annual PCP Team Chronic Disease Visit Annual PCP Team Chronic Disease Visit [facility] Start: 02-28-2024 ANNUAL PCP TEAM CHRONIC DISEASE VISIT ANNUAL PCP TEAM CHRONIC DISEASE VISIT [facility] Start: 01-30-2024 ANNUAL PCP TEAM CHRONIC DISEASE VISIT ANNUAL PCP TEAM CHRONIC DISEASE VISIT [facility] Start: 01-30-2024 BP CONTROLLED (<130/80) BP CONTROLLED (<130/80) [facility] Start: 12-27-2023 ANNUAL PCP TEAM CHRONIC DISEASE VISIT ANNUAL PCP TEAM CHRONIC DISEASE VISIT [facility] Start: 12-27-2023 BP CONTROLLED (<130/80) BP CONTROLLED (<130/80) [facility] Start: 12-27-2023 Hepatitis B surface antibody level LDL CHOLESTEROL [facility] Start: 11-14-2023 ANNUAL PCP TEAM CHRONIC DISEASE VISIT ANNUAL PCP TEAM CHRONIC DISEASE VISIT [facility] Start: 09-24-2023 Urine microalbumin profile [facility] Start: 08-19-2023 End: 07-16-2024 Ct thorax w/o contrast material CT CHEST WO IVCON Radiology Routine Malignant neoplasm of unspecified part of unspecified bronchus or lung (HCC) Expected: 08/19/2023, Expires: 07/16/2024 [facility] Work Phone: Immunizations Immunization Date Immunization Notes Care Provider Zainab loaiza 08-11-2022 COVID-19 booster vaccine, age 12+ yr, bivalent (PFIZER-BIONTECH) Inocente Nichols MD Work Phone: [facility] Work Phone: 07-16-2022 influenza, high-dose , quadrivalent vaccine (FLUZONE HIGH DOSE QUADRIVALENT) Inocente Nichols MD Work Phone: [facility] Work Phone: 07-16-2022 influenza virus vacc ine, unspecified formulation Genesis Soaresstephanie Work Phone: [facility] 03-27-2021 influenza, high-dose , quadrivalent vaccine (FLUZONE HIGH DOSE QUADRIVALENT) Nghia Harvey MD, MD Work Phone: [facility] Work Phone: 03-27-2021 pneumococcal polysaccharide vaccine, 23 valent Nghia Harvey MD, MD Work Phone: [facility] Work Phone: 05-23-2016 pneumococcal conjuga te vaccine, 13 valent Nghia Harvey MD, MD Work Phone: [facility] Work Phone: 09-23-2013 tetanus toxoid, redu brianne diphtheria toxoid, and acellular pertussis vaccine, adsorbed Nghia Harvey MD, MD Work Phone: [facility] Work Phone: Payers Date Payer Category Payer Medicaid [facility] MEDICAID MYC ARE [facility] MEDICAID [id number] 2020-Present [phone] [address] [place] [address] Medicaid [id number] 2020 Medicare [id number] 2020 Medicare [facility] MEDICARE MYC ARE [employer] MEDICARE [id number] 2020-Present [phone] [address] [place] [address] Medicare [id number] 2020 Medicare [id number] Social History Date Type Detail Facility Start: 07-29-2021 End: 03-19-2022 Tobacco smoking status NHIS Smokes tobacco daily [facility] History of tobacco use Cigarette Smoker [facility] Start: 10-02-2021 End: 07-16-2022 Alcohol intake Ex-drinker (finding) [facility] Start: 07-29-2021 End: 03-19-2022 Tobacco Comment 3-4 cigarettes/day 07/29/21 [facility] Start: 1950 Sex Assigned At Not on file [facility] Start: 09-22-2021 End: 05-01-2022 Exposure to SARS-CoV-2 (event) Not sure [facility] Start: 07-29-2021 End: 12-12-2022 Cigarettes smoked current (pack per day) - Reported 2 [facility] Work Phone: Start: 07-29-2021 End: 03-19-2022 Tobacco use and exposure Smokeless tobacco non-user [facility] Start: 03-19-2022 History SDOH Alcohol Frequency 5 [facility] Start: 03-19-2022 History SDOH Alcohol Std Drinks 2 [facility] Start: 03-19-2022 History SDOH Alcohol Binge 1 [facility] Start: 03-19-2022 History SDOH Alcohol Comment 4 cans beer per day. [facility] Start: 08-11-2022 End: 01-29-2023 Alcohol intake Current drinker of alcohol (finding) [facility] Start: 08-11-2022 Alcohol Comment 2 drinks per day [facility] Start: 03-19-2022 End: 12-12-2022 Alcohol Use Disorder Identification Test - Consumption [AUDIT-C] [facility] Work Phone: How often to you hav e a drink containing alcohol? 4 or more times a week [facility] Work Phone: How many standard dr inks containing alcohol do you have on a typical day? 3 or 4 [facility] Work Phone: How often do you hav e 6 or more drinks on 1 occasion? Never [facility] Work Phone: Adult Depression Scr eening Assessment 0 [facility] Work Phone: Start: 04-01-2023 End: 04-21-2023 Alcohol intake Lifetime non-drinker (finding) [facility] Clinical Notes 03-14-2021 to 06-17-2023 Telephone Encounter - Rachel Hernandez - 06/17/2023 3:11 PM ESTTelephone Encounter - Allyson Patterson - 06/17/2023 1:50 PM Nghia Cohn MD, - 06/17/2023 1:13 PM ESTPatient Instructions Note Date & Type Note Facility 06-17-2023 Note HNO ID: [id number] Author: Nghia Harvey MD, MD Service: ? [...] upper lobe treated with SBRT at the [facility] in 03/2020. He is doing well [...] 5-10 minutes including documentation Nghia Harvey MD [facility] 06-17-2023 Miscellaneous Notes Scheduled with patient. Patient requested to have CT last week of August. Summary: PER CC'D CHART Images from the original note were not included. Nghia Harvey MD, P Wstr Hem/Onc Psr Please call him and schedule CT chest in two months and then a phone visit with me. Thanks. documented in this encounter [facility] 06-17-2023 History of Present illness Narrative AMBULATORY [...] upper lobe treated with SBRT at the [facility] in 03/2020. He is doing well [...] Nghia Harvey MD documented in this encounter [facility] 06-10-2023 Note HNO ID: [id number] Author: Catrachita Perdomo RT(R) Service: ? Author Type: [employer]visor [employer] Type: Progress Notes Filed: 06/10/2023 1:18 PM [...] RT Brennen(Kimberly) June 10, 2023 1:18 PM [facility] 06-10-2023 History of Present illness Narrative Radiology [...] 2023 1:18 PM documented in this encounter [facility] 04-21-2023 Note HNO ID: [id number] Author: Ceci Santamaria LPN Service: ? Author Type: ? Type: Progress Notes Filed: 04/21/2023 11:55 AM Note Text: Ear lavage performed on the left ear with warm water/h202. Moderate amount of cerumen flushed from ear. TM is visible and intact post procedure. Patient tolerated procedure well and had no complaints during or after the procedure. Ceci Santamaria ERIN [facility] 04-21-2023 Note HNO ID: [id number] Author: Inocente Nichols MD Service: ? Author Type: Physician Type: Progress Notes Filed: 04/21/2023 11:55 AM Note Text: This note was created using [employer]. Subjective Kelly Damian is a 73 year old male was here for follow up. He was currently in [place] under the care of Dr. Pollard since discharge from [facility] in January for left leg wound and [...] Use Disorder Lymphedema Coronary Artery Disease Involving [place] Coronary Artery Urinary Incontinence Gastroesophageal Reflux Disease [...] impacted cerumen. Cardiovascular: (more content not included)... [facility] 04-21-2023 History of Present illness Narrative Ear lavage performed on the left ear with warm water/h202. Moderate amount of cerumen flushed from ear. TM is visible and intact post procedure. Patient tolerated procedure well and had no complaints during or after the procedure. Ceci Santamaria LPN This note was created using [employer]. Subjective Kelly Damian is a 73 year old male was here for follow up. He was currently in [place] under the care of Dr. Pollard since discharge from [facility] in January for left leg wound and [...] Use Disorder Lymphedema Coronary Artery Disease Involving [place] Coronary Artery Urinary Incontinence Gastroesophageal Reflux Disease [...] Inocente Nichols MD documented in this encounter [facility] 04-21-2023 Instructions Inocente Nichols MD - 04/21/2023 10:17 AM EDT documented in this encounter [facility] 04-01-2023 Note HNO ID: [id number] Author: Genesis Wang Service: ? Author Type: [...] of b/l foot. He currently resides in [facility] but is expecting discharge shortly. He [...] healing 05/20/2021 COPD (chronic obstructive pulmonary disease) ([facility]) 11/30/2020 Coronary artery disease involving [place] coronary artery 11/30/2020 COVID-19 05/10/2022 Esophageal stenosis Essential hypertension Falling episodes 05/20/2021 Gastroesophageal reflux disease without esophagitis 11/30/2020 History of colon polyps 03/27/2021 Lymphedema 11/30/2020 Mixed hyperlipidemia Other and unspecified hyperlipidemia Paroxysmal A-fib ([facility]) Pressure injury of sacral region, stage 2 ([facility]) 11/29/2021 Tobacco use disorder 11/30/2020 Uncomplicated alcohol dependence ([facility]) 03/19/2022 Current Outpatient Medications Medication Sig [...] Laterality Date COLONOSCOPY 2005 10-15 years ago, [place], polyps x [address] BIOPSY - LUNG Left 01/27/2020 CT BIOPSY - LUNG Right 07/04/2021 [facility]PR 1ST INGUN HRNA AGE 3 YRS/> REDUCIBLE 07/20/2000 Hernia repair, inguinal, right TOTAL HIP REPLACEMENT Right 05/22/2021 [facility] FAMILY HISTORY Problem Relation Age of Onset Arthritis Mother Cancer Mother Cancer Father Social History Tobacco Use Smoking status: Every Day Packs/day: 2.00 (more content not included)... [facility] 04-01-2023 Note HNO ID: [id number] Author: Abi Sage LPN Service: ? Author Type: LICENSED NURSE Type: Progress Notes Filed: 04/01/2023 4:00 PM Note Text: AMB ROOMING INTAKE FLOWSHEET DATA Patient presents with: Left Foot - nail care , New Right Foot - New, nail care Abi Sage LPN [facility] 04-01-2023 History of Present illness Narrative Consultation [...] of b/l foot. He currently resides in [facility] but is expecting discharge shortly. He states his nails are long and thick and he would like to have them debrided Patient denies history of diabetes PAIN EVALUATION No data found in the last 1 encounters. No results found for: HBA1C PCP: Inocente Nichols MD PAST MEDICAL HISTORY Diagnosis Date Adenocarcinoma of left lung ([facility]) 01/27/2020 Adenocarcinoma of right lung ([facility]) 07/04/2021 Benign prostatic hyperplasia with urinary frequency 11/30/2020 Bipolar disorder ([facility]) 11/30/2020 Chronic bilateral low back pain 11/30/2020 Chronic hip pain, bilateral 11/30/2020 Closed fracture of right hip with routine healing 05/20/2021 COPD (chronic obstructive pulmonary disease) ([facility]) 11/30/2020 Coronary artery disease involving [place] coronary artery 11/30/2020 COVID-19 05/10/2022 Esophageal stenosis Essential hypertension Falling episodes 05/20/2021 Gastroesophageal reflux disease without esophagitis 11/30/2020 History of colon polyps 03/27/2021 Lymphedema 11/30/2020 Mixed hyperlipidemia Other and unspecified hyperlipidemia Paroxysmal A-fib ([facility]) Pressure injury of sacral region, stage 2 ([facility]) 11/29/2021 Tobacco use disorder 11/30/2020 Uncomplicated alcohol dependence ([facility]) 03/19/2022 Current Outpatient Medications Medication Sig [...] Wang DPM Podiatry [address] [facility] [address] Dept: [phone] Dept AMB ROOMING INTAKE FLOWSHEET DATA Patient presents with: Left Foot - nail care , New Right Foot - New, nail care Abi Sage LPN documented in this encounter [facility] 03-02-2023 Miscellaneous Notes Luli/AMY w/SNF notified of below response. Ceci Santamaria LPN Patient seen yesterday and reports he will continue stay at [facility] for a few more weeks. Okay referral [...] is wanting referral to be sent to [facility]. ([facility] will not see patient for daily wound care). Zully Goss RN documented in this encounter [facility] 02-27-2023 Note HNO ID: [id number] Author: Inocente Nichols MD Service: ? Author Type: Physician Type: Progress Notes Filed: 03/01/2023 12:04 PM Note Text: This note was created using [employer]. Subjective Kelly Damian is a 72 year old male here with his sister. He was currently at [facility] but still came here for follow up and labs as previously planned in the outpatient setting. He was admitted again 02/03-02/05/23 for left leg wound, left leg cellulitis, hyponatremia, and compression fractures of L1-L2. This time he agreed to [place] stay, but only till his wounds improved. [...] Use Disorder Lymphedema Coronary Artery Disease Involving [place] Coronary Artery Urinary Incontinence Gastroesophageal Reflux Disease [...] mouth. magnesium hydroxide (more content not included)... [facility] 02-27-2023 History of Present illness Narrative This note was created using [employer]. Subjective Kelly Damian is a 72 year old male here with his sister. He was currently at [facility] but still came here for follow up and labs as previously planned in the outpatient setting. He was admitted again 02/03-02/05/23 for left leg wound, left leg cellulitis, hyponatremia, and compression fractures of L1-L2. This time he agreed to [place] stay, but only till his wounds improved. [...] Use Disorder Lymphedema Coronary Artery Disease Involving [place] Coronary Artery Urinary Incontinence Gastroesophageal Reflux Disease [...] ICD9: 799.3, ICD10: R53.81 At risk for superintendent terminal care need. 5. Lung nodules - ICD9: 793.19, ICD10: R91.8 Radiation oncology recommended bronchoscopy. He used to see [facility]. - CONSULT TO PULMONARY MEDICINE 6. Adenocarcinoma of right lung (HCC) - ICD9: 162.9, ICD10: C34.91 ddddddddddddddddddddddddddddd - CONSULT TO PULMONARY MEDICINE 7. Adenocarcinoma of left lung (HCC) - ICD9: 162.9, ICD10: C34.92 - CONSULT TO PULMONARY MEDICINE 8. Hyponatremia - ICD9: 276.1, ICD10: E87.1 Improved. 9. Anemia, unspecified type - ICD9: 285.9, ICD10: D64.9 Monitor. Inocente Nichols MD documented in this encounter [facility] 02-19-2023 Miscellaneous Notes I spoke with Liliam [...] about Pulmonology referral. documented in this encounter [facility] 02-18-2023 Note HNO ID: [id number] Author: Nghia Harvey MD, MD Service: ? [...] upper lobe treated with SBRT at the [facility] in 03/2020. He had recent multiple episodes of fall and now he is at the long term facility. Post-SBRT CT chest on 02/11/23 showed [...] nodule. Plan: I recommended referral to his occupational therapist per diem for consideration of bronchoscopy and biopsy. However, he declined it. He is at the long term home now recuperating from recent multiple falls and he doesn't want to any work-ups at this point. He wants to have a follow-up CT scan in 3 months instead. I will get CT chest in 3 months as he wishes. Total Time Spent: 5-10 minutes including documentation Nghia Harvey MD [facility] 02-18-2023 History of Present illness Narrative AMBULATORY [...] upper lobe treated with SBRT at the [facility] in 03/2020. He had recent multiple episodes of fall and now he is at the long term facility. Post-SBRT CT chest on 02/11/23 showed [...] nodule. Plan: I recommended referral to his occupational therapist per diem for consideration of bronchoscopy and biopsy. However, he declined it. He is at the long term home now recuperating from recent multiple falls and he doesn't want to any work-ups at this point. He wants to have a follow-up CT scan in 3 months instead. I will get CT chest in 3 months as he wishes. Total Time Spent: 5-10 minutes including documentation Nghia Harvey MD documented in this encounter [facility] 02-11-2023 Note HNO ID: [id number] Author: Catrachita Perdomo RT(R) Service: ? Author Type: Supervisor [employer] Type: Progress Notes Filed: 02/11/2023 2:28 PM [...] RT Brennen(R) February 11, 2023 2:28 PM [facility] 02-03-2023 Miscellaneous Notes Okay. Samanta Nurse from [facility] HH at pt's home for initial consult [...] ER. Liliam call back to report on [facility] discharge papers it has for pt to stop taking sodium chloride. Liliam is asking if pcp wants pt to stop taking this. Destiney Vick LPN 1) Assist with retirement placement. 2) Clean wound with peroxide. Normal [...] notify patient. Inocente Nichols MD Liliam from [facility] calls to let provider know that patient is now agreeable to go to rehab as discussed at previous appointment. Patient is not able to get around well and would not be able to come in for appointments. Liliam reports patient hasn't checked with insurance in regards to coverage for rehab. Liliam reports they do have a social media designer that could look into options for placement. Zully Goss RN Paulina nurse from [facility] calls to report that patient continues to [...] yet. Called and spoke with Liliam at [facility] and Liliam states that they just opened home care on patient today. Liliam states that long term should see patient today. prison should call provider for wound care orders. What wound care does provider want done for patient's legs? Does provider want to send in prescription for antibiotics for left leg infection? Does patient need to come into office to assess leg? Please review and advise, Елена Davis RN documented in this encounter [facility] 02-03-2023 Miscellaneous Notes Please see earlier TE from 02/03 for documentation. documented in this encounter [facility] 01-29-2023 Note HNO ID: [id number] Author: Inocente Nichols MD Service: ? Author Type: Physician Type: Progress Notes Filed: 01/31/2023 1:29 AM Note Text: This note was created using [employer]. Subjective Kelly Damian is a 72 year [...] Use Disorder Lymphedema Coronary Artery Disease Involving [place] Coronary Artery Urinary Incontinence Gastroesophageal Reflux Disease [...] three times daily. Taking 4 times daily. [facility] ED 01/21/23.) No current facility-administered medications for [...] murmur heard. No (more content not included)... [facility] 01-22-2023 Miscellaneous Notes Inocente, Was called at 1100 pm last night( January 21) from [facility] regarding your patient with a Na level 117 Reached out to the contact number immediately and contacted Liliam Schuler RN who was listed as a contact for the patient at [phone]. She assured me that she would contact your patient and have him seen in the [facility] ER for assessment and decisions regarding possible inpatient care The patient was in ER [facility] in the day on Thursday the she though but she was unsure whether the patient was admitted . FYI for you that this lab abnormality was dealt with and contact was made for the patient to alert him to seek medical attention. Thanks , Lee Monroy DO documented in this encounter [facility] 01-14-2023 Miscellaneous Notes ASSESSMENT/PLAN: 1. Lymphedema - ICD9: 457.1, ICD10: I89.0 - METOLAZONE 10 MG TABLET - CONSULT TO NON-[facility] FACILITY - BASIC METABOLIC PNL Inocente Nichols MD [facility] does not draw labs, Patient has been [...] pharmacy and notify patient. Can [facility] draw a BMP in 1 week. Consult the [facility] Wound Center/Lymphedema Clinic. Inocente Nichols MD Liliam with [facility] calls to let provider know that patient [...] Zully Goss RN documented in this encounter [facility] 01-06-2023 Miscellaneous Notes med update 11/13/2022 Patient [...] advise. Vicky Hollins documented in this encounter [facility] 12-26-2022 Note HNO ID: [id number] Author: Inocente Nichols MD Service: ? Author Type: Physician Type: Progress Notes Filed: 12/27/2022 2:34 PM Note Text: This note was created using [employer]. Subjective Patient presents with: Recheck: 6 week [...] Use Disorder Lymphedema Coronary Artery Disease Involving [place] Coronary Artery Urinary Incontinence Gastroesophageal Reflux Disease [...] and regular rhythm (more content not included)... [facility] 12-12-2022 Note HNO ID: [id number] Author: Nghia Harvey MD, MD Service: ? [...] upper lobe treated with SBRT at the [facility] in 03/2020. He is doing well without any specific new complaints. He denies any chest pain. Baseline respiratory symptoms without significant acute changes. Data Reviewed: None. Assessment: No significant acute complications from recent SBRT. Plan: I Will get post-treatment CT chest in two months. Total Time Spent: 5-10 minutes including documentation Nghia Harvey MD [facility] 12-12-2022 History of Present illness Narrative AMBULATORY [...] upper lobe treated with SBRT at the [facility] in 03/2020. He is doing well without any specific new complaints. He denies any chest pain. Baseline respiratory symptoms without significant acute changes. Data Reviewed: None. Assessment: No significant acute complications from recent SBRT. Plan: I Will get post-treatment CT chest in two months. Total Time Spent: 5-10 minutes including documentation Nghia Harvey MD documented in this encounter [facility] 12-01-2022 Miscellaneous Notes Noted Valorie Allan APRN.CNP Teena from [facility] calls to report that today patient's pulse was 47. Patient was asymptomatic. Елена Davis RN documented in this encounter [facility] 11-27-2022 Miscellaneous Notes YOAN Medina @ [facility] calling to let PCP know patient had one time visit today for evaluation and equipment set up. Patient declined further OT services. Says he will work with PT. Carol reports patient's BP was 136/60 today with heart rate 45-49 at rest. Patient told her he is scheduled to see Cardiology at end of the month. Esther Dean, RN documented in this encounter [facility] 11-26-2022 Miscellaneous Notes Order called back to [facility]. Continue barrier cream. Yasmeen notified of below response, verbalized understanding. Patient has bilateral rash on buttocks, two small 1.5 x 0.4, nondraining, no redness, Asking for order to continue to use a barrier cream. Ceci Santamaria LPN Okay for below orders. With a history of heart disease it is recommended to take ASA 81 mg daily, okay to continue Valorie Allan APRN.CARROL [facility] nurse Yasmeen started home care with pt today. Freq will be 2X wk X 4 wks & 1X wk X 1wk for wound care. VO? Yasmeen states she found asa 81 mg in pts meds & is asking if this is something he should be taking? It is not on his med list. Please advise. Radha Llamas LPN documented in this encounter [facility] 11-24-2022 Miscellaneous Notes Pt was seen in the office. Nereyda Sheriff LPN Liliam with [facility] called with a pt [...] Nereyda Sheriff LPN documented in this encounter [facility] 11-18-2022 Miscellaneous Notes Liliam with [facility] calls to request last OV for pt to be faxed to: [phone]. OV notes faxed as requested. Destiney Vick LPN documented in this encounter [facility] 11-17-2022 Miscellaneous Notes Information provided & faxed back. Ceci Santamaria LPN Angeles @ [facility] calling with request home health orders and demographics be faxed to [phone]. She says the note that was sent showing Assessment/Plan is not an order. She says she usually receives something that actually says Home Health Order and is signed by PCP. Esther Dean RN documented in this encounter [facility] 11-17-2022 Miscellaneous Notes Pt was seen and [...] results from MOM. documented in this encounter [facility] 11-14-2022 Note Education (BERNICE) KELLY DAMIAN ([id number]) 1950 M [facility] Date Time Provider Department 11/14/22 NGHIA HARVEY [...] Encounter Status:Closed by ISELA HARMON on 11/14/22 [facility] 11-14-2022 Note HNO ID: [id number] Author: Nghia Harvey MD, MD Service: Radiation Oncology Author Type: Physician Type: Progress Notes Filed: 11/19/2022 12:35 AM Note Text: KELLY DAMIAN [id number] : 1950 11/14/2022 [facility] Department of Radiation Oncology RADIATION ONCOLOGY - [...] upper lobe treated with SBRT at the [facility] in 03/2020. DELIVERED DOSE: 5000 cGy [...] PM Electronically Signed cc: Inocente Nichols [address] [place] [address] [facility] 11-14-2022 History of Present illness Narrative KELLY DAMIAN. [id number] : 1950 11/14/2022 [facility] Department of Radiation Oncology RADIATION ONCOLOGY - [...] upper lobe treated with SBRT at the [facility] in 03/2020. DELIVERED DOSE: 5000 cGy [...] PM Electronically Signed cc: Inocente Nichols [address] [place] [address] documented in this encounter [facility] 11-13-2022 Note HNO ID: [id number] Author: Inocente Nichols MD Service: ? Author [...] Use Disorder Lymphedema Coronary Artery Disease Involving [place] Coronary Artery Urinary Incontinence Gastroesophageal Reflux Disease Without Esophagitis Adenocarcinoma of Left Lung (Hcc) History of Colon Polyps Spinal Stenosis, Lumbar Region, With Neurogenic Claudication S/P Right Hip Fracture Physical Debility Bradycardia Adenocarcinoma of Right Lung (Hcc) Pulmonary Hypertension Due to Copd (Hcc) Obesity, Class I, Bmi 30-34.9 Hyponatremia Uncomplicated Alcohol Dependence (Hcc) Primary Hypertension Thrombocytopenia ([facility]) Social History Tobacco Use Smoking status: Every [...] COMP METABOLIC PANE (more content not included)... [facility] 11-13-2022 Instructions Inocente Nichols MD - 11/13/2022 7:27 PM EDT BLOOD WORK IN 4-6 WEEKS. INCREASE FUROSEMIDE TO 40 MG TWICE A DAY. LACTULOSE ORAL SOLUTION FOR CONSTIPATION. documented in this encounter [facility] 11-13-2022 History of Present illness Narrative This note was created using [employer]. Subjective Kelly Damian is a 72 year [...] Use Disorder Lymphedema Coronary Artery Disease Involving [place] Coronary Artery Urinary Incontinence Gastroesophageal Reflux Disease [...] Inocente Nichols MD documented in this encounter [facility] 11-10-2022 Note HNO ID: [id number] Author: Nghia Harvey MD, Service: ? Author [...] upper lobe treated with SBRT at the [facility] in 03/2020. COURSE: definitive AREA TREATED: [...] radiation treatment as planned. Nghia Harvey MD [facility] 11-10-2022 Nurse Note Radiation Therapy - Nursing Note (OTV) PATIENT NAME: Kelly Damian PATIENT November 10, 2022 [facility] FACILITY/LOCATION: [place] NURSING NOTE TYPE: CHEST Subjective Data has area of swelling on right side of neck, he was not aware of it. States he fell on Thursday at home and did not fall on that side, he just tripped and fell no LOC Additional Data Do you want to see a Assembler Mechanical Ordnance? No Status: Patient is male Stress Scale: On a scale of 0 to 10, what number best describes how much distress you have experienced in the past week?(0 being no distress and 10 being extreme distress) 5 Social work notified: Pt denied need to see social media designer at this time. Nursing Assessment Fatigue: moderate; [...] Marisol Watters RN documented in this encounter [facility] 11-10-2022 History of Present illness Narrative Radiation [...] upper lobe treated with SBRT at the [facility] in 03/2020. COURSE: definitive AREA TREATED: [...] Nghia Harvey MD documented in this encounter [facility] 11-10-2022 Miscellaneous Notes From 10/29/22 counts include 234 beds at the [facility] request for HHS. This has been ordered but [facility] needs an office note completed for this need. This was relayed to the [facility] care nurse last week since pt had an appt with PILLING MACHINE OPERATOR 11/10/22. Reccommended then they encourage pt to come to the PILLING MACHINE OPERATOR appt. Pt has cancelled the appt today. Next appt with pcp is January. Message left to Liliam [facility] nurse with this info. documented in this encounter [facility] 10-30-2022 Miscellaneous Notes Liliam at [facility] notified of provider's response below. Telephone order for Home Health faxed to [facility] per Liliam's request. Gaby Canas RN [...] PT, OT. Inocente Nichols MD Liliam with [facility] called in and reports she sees the [...] call and advise. documented in this encounter [facility] 10-23-2022 Note HNO ID: [id number] Author: Nghia Harvey MD, MD Service: Radiation Oncology Author Type: Physician Type: Progress Notes Filed: 10/30/2022 12:35 AM Note Text: KELLY DAMIAN [id number] 10/23/2022 [facility] Department of Radiation Oncology [facility] RADIATION ONCOLOGY SIMULATION NOTE DATE OF SIMULATION: 10/23/2022 MACHINE: [employer] Definition CT Simulator Diagnosis: 1. Enlarging left lower lung nodule likely to be malignancy. 2. 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 3. Clinical stage IB, T2aN0, non-small cell lung cancer of the left upper lobe treated with SBRT at the [facility] in 03/2020. AREA:left lower lung PATIENT [...] Electronically Signed Nghia Harvey M.D./marlo :39 PM [facility] 10-23-2022 Note HNO ID: [id number] Author: Nghia Harvey MD, MD Service: Radiation Oncology Author Type: Physician Type: Progress Notes Filed: 11/05/2022 12:35 AM Note Text: KELLY DAMIAN [id number] 10/23/2022 [facility] Department of Radiation Oncology Treatment Planning Note [...] Electronically Signed Nghia Harvey M.D. 0:43 AM [facility] 10-23-2022 History of Present illness Narrative KELLY DAMIAN [id number] 10/23/2022 [facility] Department of Radiation Oncology [facility] RADIATION ONCOLOGY SIMULATION NOTE DATE OF SIMULATION: 10/23/2022 MACHINE: [employer] Definition CT Simulator Diagnosis: 1. Enlarging left lower lung nodule likely to be malignancy. 2. 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 3. Clinical stage IB, T2aN0, non-small cell lung cancer of the left upper lobe treated with SBRT at the [facility] in 03/2020. AREA:left lower lung PATIENT POSITION: Supine. CONTRAST: None PROTOCOL: None BLOCKING: Custom blocking to be determined at treatment planning. FIXATION DEVICE: In order to achieve accurate and reproducible treatments, the patient is to be immobilized with [employer] SBRT system, full body vac bag, and [...] M.D./marlo 33:39 PM documented in this encounter [facility] 10-23-2022 History of Present illness Narrative KELLY DAMIAN [id number] 10/23/2022 [facility] Department of Radiation Oncology Treatment Planning Note [...] M.D. 0:43 AM documented in this encounter [facility] 10-20-2022 Miscellaneous Notes Orders called back to [facility]. 1) Monitor bradycardia. Advise ER for symptoms like dyspnea or syncope. 2) Okay to reduce Lasix to 40 mg once daily. 3) If diarrhea persists, check stool for clostridium difficile. Liliam nurse @ [facility] calling with update. She reports patient's heart rate has been in the 40's and regular the last 3 visits. She sees him once a week. He has no symptoms of dizziness nor lightheadedness. He had Vascular Studies done @ [facility] on 10/02. Dr. Mandie Klesey, Vascular Surgeon started him on Atorvastatin 80 [...] Esther Dean RN documented in this encounter [facility] 10-09-2022 Note HNO ID: [id number] Author: Nghia Harvey MD, MD Service: ? [...] upper lobe treated with SBRT at the [facility] in 03/2020. INTERVAL HISTORY: He had surveillance CT chests for his treated right lung cancer. CT on 05/02/22 showed interval increase in size of cavitary nodule in the left lower lobe from 1.2 cm on 01/16/[address] guided biopsy of the left lung lesion on 05/22/22 at the [facility] showed, Atypical epithelial cells suspicious for malignancy. [...] upper lobe treated with SBRT at the [facility] in 03/2020. I discussed management options [...] that other personnel such as radiation therapists, cook supervisor, and physicists will participate in planning and delivery of radiation treatment. Permanent tattoo dejesus will be placed to aid with positioning for daily treatment and the patient consented. Signed by: Nghia Harvey MD cc: Inocente Nichols [address] [place], [place] [address] (more content not included)... [facility] 10-01-2022 Note HNO ID: [id number] Author: RT Piper(R) Service: ? Author Type: Supervisor [employer] Type: Progress Notes Filed: 10/01/2022 2:59 PM [...] RT Brennen(R) October 01, 2022 2:59 PM [facility] 08-22-2022 Miscellaneous Notes order called back to Liliam. Clean with peroxide as needed. Triple antibiotic ointment with non stick dressing. Change every 2 days or when soaked. Liliam Nurse from [facility] calls to report that patient had tripped [...] They check on him weekly but not long term. Patient does have aide and a sister who is a nurse who can help with changing dressing. Please review and advise, Елена Davis RN documented in this encounter [facility] 08-11-2022 Note HNO ID: [id number] Author: Inocente Nichols MD Service: ? Author Type: Physician Type: Progress Notes Filed: 08/11/2022 3:42 PM Note Text: This note was created using [employer]. Subjective Kelly Damian is a 72 year [...] Use Disorder Lymphedema Coronary Artery Disease Involving [place] Coronary Artery Urinary Incontinence Gastroesophageal Reflux Disease Without Esophagitis Adenocarcinoma of Left Lung ([facility]) History of Colon Polyps Spinal Stenosis, Lumbar Region, With Neurogenic Claudication S/P Right Hip Fracture Physical Debility Obesity, Class II, Bmi 35-39.9 Bradycardia Adenocarcinoma of Right Lung ([facility]) Pulmonary Hypertension Due to Copd ([facility]) Obesity, Class I, Bmi 30-34.9 Hyponatremia Uncomplicated Alcohol Dependence ([facility]) Primary Hypertension Social History Tobacco Use Smoking [...] 4. Pulmonary hypertens (more content not included)... [facility] 08-11-2022 Instructions Inocente Nichols MD - 08/11/2022 2:33 PM EST BLOOD CHEMISTRY TODAY. documented in this encounter [facility] 08-11-2022 History of Present illness Narrative This note was created using [employer]. Subjective Kelly Damian is a 72 year [...] Use Disorder Lymphedema Coronary Artery Disease Involving [place] Coronary Artery Urinary Incontinence Gastroesophageal Reflux Disease Without Esophagitis Adenocarcinoma of Left Lung ([facility]) History of Colon Polyps Spinal Stenosis, Lumbar Region, With Neurogenic Claudication S/P Right Hip Fracture Physical Debility Obesity, Class II, Bmi 35-39.9 Bradycardia Adenocarcinoma of Right Lung ([facility]cc) Pulmonary Hypertension Due to Copd ([facility]) Obesity, Class I, Bmi 30-34.9 Hyponatremia Uncomplicated [...] Inocente Nichols MD documented in this encounter [facility] 08-05-2022 Miscellaneous Notes Patient has been identified [...] patient. Kathy Ordaz documented in this encounter [facility] 08-01-2022 Miscellaneous Notes Called the pharmacy and this was not completed. Noted result: effusion is small on US. Cancel thoracentesis. Pt completed pre thoracentesis . See results. View External Imaging - u/s evaluation for thoracentesis [ID [id number]] documented in this encounter [facility] 07-31-2022 Miscellaneous Notes Liliam from [facility] called and is notified of providers message and instructions. She voices understanding. Berenice Hoyos RN Increase furosemide to one(1) tablet two(2) times daily. Requested Prescriptions Signed Prescriptions Disp Refills furosemide (LASIX) 40 mg tablet 60 tablet 3 Sig: Take 1 tablet by mouth twice daily. Authorizing Provider: INOCENTE NICHOLS MD Liliam from [facility] reports pt's legs are still just a red as when pt was seen in the office 07/16/22. +3 edema. Toes are purple & red. Pt denies pain per Liliam. Pt is having a thoracentesis today & [facility] Zaynab hose. Please advise. Radha Llamas LPN documented in this encounter [facility] 07-23-2022 Miscellaneous Notes Order completed and faxed to [facility] along with office notes from last appt,chest x ray,labs from [facility],and lab order for cytology on fluid. [facility] is to call pt to arrange. Patient notified of below results/recommendation. He is asking for the referral to [facility] radiology for thoracentesis. Let Patient know our office will send info to [facility], they will contact him to schedule. Ceci Santamaria LPN ----- Message from Inocente Nichols MD sent at 07/20/2022 1:08 PM EST ----- Persistent right lung base infiltrate and fluid, rule out recurrent cancer. Consider referral to [facility] radiology for thoracentesis. I will also share this with Dr. Harvey, radiation oncology. documented in this encounter [facility] 07-16-2022 Note HNO ID: [id number] Author: RT Zeferino(R) Service: ? Author Type: Supervisor [employer] Type: Progress Notes Filed: 07/16/2022 5:04 PM [...] RT Zeferino(R) July 16, 2022 4:47 PM [facility] 07-16-2022 Note HNO ID: [id number] Author: Inocente Nichols MD Service: ? Author Type: Physician Type: Progress Notes Filed: 07/17/2022 12:29 AM Note Text: This note was created using [employer]. Subjective Kelly Damian is a 72 year [...] Disorder ([facility]cc) Copd (Chronic Obstructive Pulmonary Disease) ([facility]) Benign Prostatic Hyperplasia With Urinary Frequency Chronic Hip Pain, Bilateral Chronic Bilateral Low Back Pain Tobacco Use Disorder Lymphedema Coronary Artery Disease Involving [place] Coronary Artery Urinary Incontinence Gastroesophageal Reflux Disease Without Esophagitis Adenocarcinoma of Left Lung ([facility]) History of Colon Polyps Spinal Stenosis, Lumbar Region, With Neurogenic Claudication S/P Right Hip Fracture Physical Debility Obesity, Class II, Bmi 35-39.9 Bradycardia Adenocarcinoma of Right Lung ([facility]) Pulmonary Hypertension Due to Copd ([facility]) Obesity, Class I, Bmi 30-34.9 Hyponatremia Uncomplicated Alcohol Dependence ([facility]) Primary Hypertension Current Outpatient Medications Medication Sig [...] - Recommended regul (more content not included)... [facility] 07-16-2022 Instructions Inocente Nichols MD - 07/16/2022 4:04 PM EST CHEST XRAY TODAY. PRESCRIPTIONS TO [facility] BLOOD WORK ON THE DAY OF THE NEXT APPOINTMENT documented in this encounter [facility] 07-16-2022 History of Present illness Narrative This note was created using [employer]. Subjective Kelly Damian is a 72 year [...] Use Disorder Lymphedema Coronary Artery Disease Involving [place] Coronary Artery Urinary Incontinence Gastroesophageal Reflux Disease [...] Inocente Nichols MD documented in this encounter [facility] 07-11-2022 Miscellaneous Notes Spoke with pt and [...] understood and agreed. documented in this encounter [facility] 07-02-2022 Miscellaneous Notes I faxed a request to the film library to make images viewable. I was unable to reach them by phone. Report given to Dr Harvey, request faxed to [facility] to have images pushed thru to [facility]. I am attempting to get these results. Unable to access [employer]. Left message at medical records at [facility] to send these results. Patient calling for Pet Scan results from 06/18. Please advise. documented in this encounter [facility] 06-09-2022 Miscellaneous Notes Pt called and is [...] up as scheduled. documented in this encounter [facility] 06-02-2022 Miscellaneous Notes Faxed Office Note and CT Report. No Care Path or Pathology to send. Елена Choe [facility]. They need Dr. Harvey's last OV note, the Care Path Report, If he had a biopsy the results and his CT scan results. Please fax this to them [facility] [phone] ATTN: Maddie Thank you! Allyson Luna documented in this encounter [facility] 05-30-2022 Instructions Inocente Nichols MD - 05/30/2022 2:32 PM EST CATARACT SURGERY NOT RECOMMENDED AT THIS TIME. documented in this encounter [facility] 05-30-2022 History of Present illness Narrative This [...] for weakness. ACTIVE PROBLEM LIST Bipolar Disorder ([facility]) Copd (Chronic Obstructive Pulmonary Disease) ([facility]) Benign Prostatic Hyperplasia With Urinary Frequency Chronic Hip Pain, Bilateral Chronic Bilateral Low Back Pain Tobacco Use Disorder Lymphedema Coronary Artery Disease Involving [place] Coronary Artery Urinary Incontinence Gastroesophageal Reflux Disease Without Esophagitis Adenocarcinoma of Left Lung ([facility]) History of Colon Polyps Spinal Stenosis, Lumbar Region, With Neurogenic Claudication S/P Right Hip Fracture Physical Debility Obesity, Class II, Bmi 35-39.9 Bradycardia Adenocarcinoma of Right Lung ([facility]) Pulmonary Hypertension Due to Copd ([facility]) Obesity, Class I, Bmi 30-34.9 Hyponatremia Uncomplicated Alcohol Dependence ([facility]) Primary Hypertension Current Outpatient Medications Medication Sig [...] TO CARDIOLOGY 3. Coronary artery disease involving [place] coronary artery of [place] heart without angina pectoris - ICD9: 414.01, ICD10: I25.10 - CONSULT TO CARDIOLOGY 4. Primary hypertension - ICD9: 401.9, ICD10: I10 - poor control 5. Centrilobular emphysema (HCC) - ICD9: 492.8, ICD10: J43.2 Rule out CHF. - XR CHEST 2V FRONTAL/LAT Inocente Nichols MD documented in this encounter [facility] 05-20-2022 Miscellaneous Notes Last [address] Harvey (3 phone and 1 office note) and last Office note from Tracy Nichols faxed as requested. Елена Choe [facility] called again requesting history and physical of the patient within the last 30 days. Please fax office notes to Please fax to [phone]. Faxed Med List and Lab Orders to [facility] as directed. Spoke with patient and he stated he would do labs tomorrow (05/21). Елена Choe Please fax med list, H & P faxed to [facility] for procedure on 05/22 please fax [phone] PSR's would you be able to fax lab orders to [facility] and have pt go get them done today or early tomorrow for procedure 05/22? [facility] is needing the following prior to lung biopsy on 05/22. Current H&P Med list Labs: PT, PT INR, Platelets. If patient hasn't had these done recently please fax a lab order to be drawn at [facility] Please fax to [phone] documented in this encounter [facility] 05-10-2022 History of Present illness Narrative DISTANCE [...] evaluation of this patient. Location of patient: [facility] Kelly Damian is a 72 year [...] Use Disorder Lymphedema Coronary Artery Disease Involving [place] Coronary Artery Urinary Incontinence Gastroesophageal Reflux Disease [...] discussed Nirmatrelvir/Ritonavir (Paxlovid) Eligibility and Patient Discussion [facility] Formulary Restriction Criteria: Adult outpatients 18 years [...] coronavirus infection (COVID-19). documented in this encounter [facility] 05-09-2022 Miscellaneous Notes Patient notified, verbalized understanding and scheduled with PCP tomorrow for phone visit. He meets the criteria for treatment with Paxlovid if his symptoms started less than 5 days ago. This medication can decrease the risk of complications in those with mild to moderate symptoms. If he is interested then please schedule for virtual visit today Valorie Allan APRN.CNP Liliam from [facility] calls and wanted to make provider aware that patient tested positive for Covid via home test. Patient symptoms are not bad. Patent's sister whom he lives with had tested positive previously. Елена Davis RN documented in this encounter [facility] 05-02-2022 History of Present illness Narrative Radiology [...] 2022 10:58 AM documented in this encounter [facility] 04-28-2022 Miscellaneous Notes Faxed last ov notes to [facility], per Liliam request. documented in this encounter [facility] 04-14-2022 Miscellaneous Notes Teena notified and voiced [...] desk Valorie Allan APRN.CARROL Teena, nurse with [facility] states pt has sodium chloride 1000mg tid in his med box. Pt was given this med when in [facility], he was discharged with 90 tabs. Teena [...] Radha Llamas LPN documented in this encounter [facility] 04-03-2022 Miscellaneous Notes Dona from [facility] calls to report that they are extending long term services for 1 time a week times 4 weeks. No call back needed. Елена Davis RN documented in this encounter [facility] 03-27-2022 Miscellaneous Notes Noted. Follow up as scheduled. Teena with [facility] calls with patient update requested by provider. BP today at visit: 118/70 Respirations today at visit: 18 Patient has chest congestion and diminished lung sounds per his normal. Patient is a chronic heavy smoker and Teena reports no increased SOB or cough. Afebrile. No weight gain. Teena's call back number for further questions is [phone]. Zully Goss RN documented in this encounter [facility] 03-21-2022 Miscellaneous Notes Nurse Linda returned call and given provider's message below. Gaby Canas RN ' Left message for Linda nurse surgery manager at [facility] to call back for orders. 1) [...] and glucose was stable. Brinda PT with [facility] called in she reports Pts systolic [...] call and advise. documented in this encounter [facility] 03-19-2022 Instructions Inocente Nichols MD - 03/19/2022 2:09 PM EDT BLOOD WORK TODAY. documented in this encounter [facility] 03-19-2022 History of Present illness Narrative This note was created using [employer]. Subjective Patient presents with: [facility] F/U Kelly Damian is a 71 [...] Use Disorder Lymphedema Coronary Artery Disease Involving [place] Coronary Artery Urinary Incontinence Gastroesophageal Reflux Disease [...] Inocente Nichols MD documented in this encounter [facility] 03-18-2022 Miscellaneous Notes Carol MILTON calling from [facility] to report plan of care for patient and OT will visit patient 1 time a week for first week, 2 times a week times 2 weeks, and 1 time a week for 1 week. OT will work with patient on ADLs. No call back needed if agreeable Елена Davsi RN documented in this encounter [facility] 03-10-2022 Miscellaneous Notes Below response left on confidential vm. Ceci Santamaria LPN I will follow. Angeles with [facility] calling to state patient is to discharge from [facility] on 03/11 with diagnosis of hyponatremia, COPD exacerbation, and lower extremity edema. Patient has orders for Home Health Nursing, PT and OT. Angeles asking if provider will follow patient? They would like to see patient on 03/12. Please call Angeles at [phone]. May leave detailed message on confidential voicemail. Thank you. documented in this encounter [facility] 03-07-2022 Miscellaneous Notes Patient admitted. Patient's sister [...] Елена Davis RN documented in this encounter [facility] 02-27-2022 Note HNO ID: [id number] Author: Martita Belle MA Service: ? Author Type: Twisthand Type: Progress Notes Filed: 02/27/2022 4:23 PM [...] The patient is not nervous/anxious. [facility] 02-27-2022 History of Present illness Narrative [...] is not nervous/anxious. [facility] Patient name: Kelly Damian Date of [...] or double vision) Respiratory: Negative (No Cough, Jnclvxlbh-xk-rghski, Dyspnea on exertion, wheezing) Cardiovascular: Negative (No Chest Pain, Tightness, Pressure, Palpitations) Gastrointestinal: Negative (No Abdominal pain, Nausea, Vomiting, Constipation, Diarrhea) Genitourinary: Negative (No dysuria) Hematologic: Negative (No bleeding, bruising) OB: is Denied or Not Applicable Endocrine: Negative (No hot/cold intolerance) Psychiatric: Negative (No depression, anxiety or suicidal ideation) PAST MEDICAL HISTORY Diagnosis Date Adenocarcinoma of left lung ([facility]) 01/27/2020 Adenocarcinoma of right lung ([facility]) 07/04/2021 Benign prostatic hyperplasia with urinary frequency 11/30/2020 Bipolar disorder ([facility]) 11/30/2020 Chronic bilateral low back pain 11/30/2020 Chronic hip pain, bilateral 11/30/2020 Closed fracture of right hip with routine healing 05/20/2021 COPD (chronic obstructive pulmonary disease) ([facility]) 11/30/2020 Coronary artery disease involving [place] coronary artery 11/30/2020 Esophageal stenosis Essential hypertension Falling episodes 05/20/2021 Gastroesophageal reflux disease without esophagitis 11/30/2020 History of colon polyps 03/27/2021 Lymphedema 11/30/2020 Mixed hyperlipidemia Other and unspecified hyperlipidemia Paroxysmal A-fib ([facility]) Pressure injury of sacral region, stage 2 ([facility]) 11/29/2021 Tobacco use disorder 11/30/2020 PAST SURGICAL HISTORY Procedure Laterality Date COLONOSCOPY 2005 10-15 years ago, [place], polyps x [address] BIOPSY - [...] unremarkable Assessment and Plan: As noted above [place] protocol documentation / Pre-Procedure Checklist: Consent: Obtained [...] MBA Pain Management [facility] Name: Kelly Damian : 1950 Purpose: [...] taking Baclofen 10mg qHS PRN spasms. Taking Baldwin 5/325 sparingly for breakthrough pain, able to [...] - Medication Comments - - Pain Assessment (RN/CANOE INSPECTOR FINAL) - - Pain: Timing: constant Character: Aching Primary location: axial low back Radiation: into the left > right buttock Exacerbated factors: Standing and walking Alleviating factors: Sitting Medication: Current pain medications: Tylenol OTC 650mg, takes 4 per day Diclofenac 75mg BID PRN Baclofen 10mg qHS PRN spasms Baldwin 5/325, #28 (3/991613) - has two remaining Analgesia: Not adequate Function: Weekly Activity Level (0=none; 58=418+ minutes of total activity not including work activity): 2 Ambulation and Activities of Daily Living: With a walker or wheelchair Device Independent Exercise(s) or Activities: none 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 All prescriptions have been APPROPRIATELY filled. No suspicious activity was identified. by Juancho Carpenter MD 02/27/2022 Baldwin 5/325, #28 (01/09/2022; 11/14/2021; 05/16/2021) Greenlight from [...] (Diclofenac) and Mobic (Meloxicam) Opioids: Vicodin or Baldwin (Hydrocodone) Muscle Relaxants: Lioresal (Baclofen) and Zanaflex [...] was advised that they will need a warehouse associate driver for after the procedure and that if no warehouse associate driver is available and on site at the time of the procedure, the procedure will be cancelled. For any anticoagulants, the patient was advised on whether to continue or hold for this procedure. The patient expressed understanding and gave verbal consent to proceed. Medication(s): Baldwin 5/325 #28, taking sparingly, will refill today [...] Referrals: No additional considerations at present Functional Temple: Physical Therapy (Land-based) - continue home-based care Depending on response to the above-mentioned plan of care, in the future may consider evaluation for: Lumbar MBB/RFA - offered, declined (02/2022) -Follow-up: 2 months with CERTIFIED WELDING INSPECTOR Attribution: In addition to reviewing the information noted above, some elements copied from my most recent clinical note(s), including the physical exam (completed in entirety today), and the impression and plan sections, have been updated where appropriate. All reflect current medical decision making from today's date. Juancho Carpenter MD, MBA Pain Management [facility] documented in this encounter [facility] 02-27-2022 Note HNO ID: [id number] Author: Juancho Carpenter MD Service: ? Author Type: Physician Type: Progress Notes Filed: 02/27/2022 4:23 PM Note Text: [facility] Patient name: Kelly Damian Date of [...] or double vision) Respiratory: Negative (No Cough, Fvoplssof-qu-optesq, Dyspnea on exertion, wheezing) Cardiovascular: Negative (No [...] healing 05/20/2021 COPD (chronic obstructive pulmonary disease) ([facility]) 11/30/2020 Coronary artery disease involving [place] coronary artery 11/30/2020 Esophageal stenosis Essential hypertension Falling episodes 05/20/2021 Gastroesophageal reflux disease without esophagitis 11/30/2020 History of colon polyps 03/27/2021 Lymphedema 11/30/2020 Mixed hyperlipidemia Other and unspecified hyperlipidemia Paroxysmal A-fib (HCC) Pressure injury of sacral region, stage 2 (HCC) 11/29/2021 Tobacco use disorder 11/30/2020 PAST SURGICAL HISTORY Procedure Laterality Date COLONOSCOPY 2005 10-15 years ago, [place], polyps x [address] BIOPSY - [...] aepb (more content not included)... [facility] 02-27-2022 Note HNO ID: [id number] Author: Juancho Carpenter MD Service: ? Author Type: Physician Type: Progress Notes Filed: 02/27/2022 4:23 PM Note Text: [facility] Name: Kelly Damian : 1950 Purpose: [...] taking Baclofen 10mg qHS PRN spasms. Taking Baldwin 5/325 sparingly for breakthrough pain, able to [...] - Medication Comments - - Pain Assessment (RN/CANOE INSPECTOR FINAL) - - Pain: Timing: constant Character: Aching Primary location: axial low back Radiation: into the left > right buttock Exacerbated factors: Standing and walking Alleviating factors: Sitting Medication: Current pain medications: Tylenol OTC 650mg, takes 4 per day Diclofenac 75mg BID PRN Baclofen 10mg qHS PRN spasms Baldwin 5/325, #28 () - has two remaining Analgesia: Not adequate Function: Weekly Activity Level (0=none; 18=858+ minutes of total activity not including work activity): 08/29 Ambulation and Activities of Daily Living: With a walker or wheelchair Device Independent Exercise(s) or Activities: none 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 All prescriptions have been APPROPRIATELY filled. No suspicious activity was identified. by Juancho Carpenter MD 02/27/2022 Baldwin 5/325, #28 (01/09/2022; 11/14/2021; 05/16/2021) Greenlight from [...] (Diclofenac) and Mobic (Meloxicam) Opioids: Vicodin or Baldwin (Hydrocodone) Muscle Relaxants: Lioresal (Baclofen) and Zanaflex [...] th (more content not included)... [facility] 02-06-2022 Instructions Inocente Nichols MD - 02/06/2022 10:36 AM EDT BLOOD WORK TODAY PREVIOUSLY ORDERED (BMP, BTNP) documented in this encounter [facility] 02-06-2022 History of Present illness Narrative This note was created using [employer]. Subjective Kelly Damian is a 71 year [...] Use Disorder Lymphedema Coronary Artery Disease Involving [place] Coronary Artery Urinary Incontinence Gastroesophageal Reflux Disease [...] (HCC) - ICD9: 296.66, ICD10: F31.78 Per [place] psychiatrist. 7. Pulmonary hypertension due to COPD (HCC) - ICD9: 416.8, 496, ICD10: I27.23, J44.9 Noted on echo. Inocente Nichols MD documented in this encounter [facility] 01-30-2022 Miscellaneous Notes Report received. Order has been faxed. Carey Mora New order is in. If not already printed and faxed please do so. Thank you. [facility] is stating order will need to state this is initial PETscan for new new nodule if using R code further questions please call [facility] at [phone] option # 2 as patient is schedule [...] so we should be good to schedule. [facility] is calling in regards to this patient's PET scan. Patient has previous Rt Lung cancer DX C34.11 and they are requesting a new pet scan order to reflect this dx and will also need Dr Harvey signature as current orders have no signature. DX used was R91.8 and they are requesting using Code C34.11 please refax to [phone] Harvey's notes from 01/22/22, pt needs scheduled for PET scan at [facility] I spoke with pt and he said he was waiting on us to scheduled and call him Can you please set this up ANDRÉS and notify pt? Thanks documented in this encounter [facility] 01-22-2022 History of Present illness Narrative CC: [...] disease) (HCC) 11/30/2020 Coronary artery disease involving [place] coronary artery 11/30/2020 Esophageal stenosis Essential hypertension Falling episodes 05/20/2021 Gastroesophageal reflux disease without esophagitis 11/30/2020 History of colon polyps 03/27/2021 Lymphedema 11/30/2020 Mixed hyperlipidemia Other and unspecified hyperlipidemia Paroxysmal A-fib (HCC) Tobacco use disorder 11/30/2020 PAST SURGICAL HISTORY Procedure Laterality Date COLONOSCOPY 2006 10-15 years ago, [place], polyps x [address] BIOPSY - [...] Valorie Allan APRN.CNP documented in this encounter [facility] 01-16-2022 History of Present illness Narrative Radiology [...] 2022 9:11 AM documented in this encounter [facility] 01-15-2022 History of Present illness Narrative CC: [...] disease) (HCC) 11/30/2020 Coronary artery disease involving [place] coronary artery 11/30/2020 Esophageal stenosis Essential hypertension Falling episodes 05/20/2021 Gastroesophageal reflux disease without esophagitis 11/30/2020 History of colon polyps 03/27/2021 Lymphedema 11/30/2020 Mixed hyperlipidemia Other and unspecified hyperlipidemia Paroxysmal A-fib (HCC) Tobacco use disorder 11/30/2020 PAST SURGICAL HISTORY Procedure Laterality Date COLONOSCOPY 2005 10-15 years ago, [place], polyps x [address] BIOPSY - LUNG Left 01/27/2020 CT BIOPSY - LUNG Right 07/04/2021 RPR 1ST INGUN HRNA AGE 5 YRS/> REDUCIBLE 07/20/2000 Hernia repair, inguinal, right TOTAL HIP REPLACEMENT Right 05/22/2021 [facility] Patient has no known allergies. [...] Valorie Allan APRN.CNP documented in this encounter [facility] 01-09-2022 Note HNO ID: [id number] Author: Radha Vo MA Service: ? Author Type: Twisthand Type: Progress Notes Filed: 01/09/2022 3:01 PM [...] ideas. The patient is nervous/anxious. [facility] 01-09-2022 Instructions Juancho Carpenter MD - 01/09/2022 2:53 PM EDT Update for home nursin. Discontinue Meloxicam (Mobic) 2. Start Diclofenac 75mg, twice daily as needed for pain 3. Continue Baclofen 10mg qHS as needed for spasms 4. Continue Baldwin 5/325 (hydrocodone/tylenol), use sparingly for severe breakthrough pain (max of 2 per week) Juancho Carpenter III, MD, JUAN documented in this encounter [facility] 01-09-2022 History of Present illness Narrative Review [...] is nervous/anxious. [facility] Name: Kelly Damian : 1950 Purpose: [...] qHS PRN spasms per nursing notes. Taking Baldwin 5/325 sparingly for breakthrough pain, ran out [...] Positioning Comments - PT Exercises Pain Assessment (RN/CANOE INSPECTOR FINAL) - - Pain: Timing: constant Character: Aching Primary location: axial low back Radiation: into the left > right buttock Exacerbated factors: Standing and walking Alleviating factors: Sitting Medication: Current pain medications: o Tylenol OTC 650mg, takes 4 per day o Diclofenac 75mg BID PRN o Baclofen 10mg qHS PRN spasms o Baldwin 5/325, #28 (11/14/2021) Analgesia: Not adequate Function: Weekly Activity Level (0=none; 99=677+ minutes of total activity not including work activity): 08/29 Ambulation and Activities of Daily Living: With a walker or wheelchair Device Independent Exercise(s) or Activities: none 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 All prescriptions have been APPROPRIATELY filled. No suspicious activity was identified. by Juancho Carpenter MD 01/09/2022 Baldwin 5/325, #28 (11/14/2021; 05/16/2021) Greenlight from 03/14/2021: [...] (Diclofenac) and Mobic (Meloxicam) Opioids: Vicodin or [place] (Hydrocodone) Muscle Relaxants: Lioresal (Baclofen) and Zanaflex [...] participation, and/or improving quality of life: Medication(s): Baldwin 5/325 #28, taking sparingly, will refill today [...] Referrals: No additional considerations at present Functional Temple: Physical Therapy (Land-based) - continue home-based care [...] MBA Pain Management [facility] documented in this encounter [facility] 01-09-2022 Note HNO ID: [id number] Author: Juancho Carpenter MD Service: ? Author Type: Physician Type: Progress Notes Filed: 01/09/2022 3:01 PM Note Text: [facility] Name: Kelly Damian : 1950 Purpose: Follow-up Date: 01/09/2022 Last Date 11/14/2021 Interval History: Kelly Damian returns, reporting pain is unchanged. He fell at home in July, fractured the right hip, had a hip replacement, was in a SNF. Developed a bed sore, managed at the [place]. He has been managed at home with [...] qHS PRN spasms per nursing notes. Taking Baldwin 5/325 sparingly for breakthrough pain, ran out [...] Positioning Comments - PT Exercises Pain Assessment (RN/CANOE INSPECTOR FINAL) - - Pain: - Timing: constant - Character: Aching - Primary location: axial low back - Radiation: into the left > right buttock - Exacerbated factors: Standing and walking - Alleviating factors: Sitting Medication: - Current pain medications: o Tylenol OTC 650mg, takes 4 per day o Diclofenac 75mg BID PRN o Baclofen 10mg qHS PRN spasms o Baldwin 5/325, #28 (11/14/2021) - Analgesia: Not adequate Function: - Weekly Activity Level (0=none; 62=226+ minutes of total activity not including work activity): 08/29 - Ambulation and Activities of Daily Living: With a walker or wheelchair Device - Independent Exercise(s) or Activities: none - 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 [facility] 12-13-2021 Miscellaneous Notes Signed and faxed back. rec'd and to pcp to review. Otilia from [facility] calling to state she will be faxing orders to pcp for wound care. Asking if pcp will sign & authorize. Fax # provided. Radha Llamas LPN documented in this encounter [facility] 12-12-2021 Miscellaneous Notes Patient notified, verbalized understanding. Ceci Santamaria LPN ----- Message from Inocente Nichols MD sent at 12/12/2021 8:16 AM EDT ----- No acute findings. R lung nodule as before, already biopsied. documented in this encounter [facility] 12-09-2021 Miscellaneous Notes Pt called and is notified of providers results and instructions. Pt voices understanding. Pt was put through to scheduling to set appointment for an Echo. Berenice Hoyos RN Patient notified and verbalized understanding. Transferred to scheduling. [facility] please make sure patient was scheduled for ECHO. Thanks. ----- Message from Inocente Nichols MD sent at 12/07/2021 3:56 PM EDT ----- Labs concerning for CHF. Start furosemide 20 mg daily. Check echocardiogram. documented in this encounter [facility] 12-09-2021 Miscellaneous Notes Mel- PT- [facility], calling in POC: will see patient 3 'x's for 1 week, 2 x's week for 3 weeks, for strength, balance, gait, and transfer training. documented in this encounter [facility] 12-06-2021 Miscellaneous Notes Faxes sent to [facility] and [facility] Wound [facility] per request. Nika Esparza LPN Linda with [facility] calls in to also request a referral be sent to the Wound Center at [facility] for the stage 2 pressure ulcer to sacrum as well. Zully Goss RN Linda from [facility] calls and states that there was some confusion to patient's home health orders. [facility] is discharging patient from their services, so that [facility] can order picker patient for their services. Linda asking for Home Health orders for prison. Please fax over today's office visit note to . Please review and advise, Елена Davis RN documented in this encounter [facility] documented as of this encounter (statuses as of 08/12/2022) [facility]-20[facility]2022 History of Past illness Narrative* Problem Noted Date Resolved Date Obesity, Class II, BMI 35-39.9 12/06/2021 0 08/11/2022 Pressure injury of sacral region, stage 2 202102/06/2022 Obesity, Class II, BMI 35-39.9 03/27/2021 0 12/06/2021 Obesity, Class I, BMI 30-34.9 11/30/2020 documented as of this encounter (statuses as of 08/22/2022) [facility] History of Past illness Narrative* Problem Noted Date Resolved Date Obesity, Class II, BMI 35-39.9 12/06/2021 0 08/11/2022 Pressure injury of sacral region, stage 2 202102/06/2022 Obesity, Class II, BMI 35-39.9 03/27/2021 0 12/06/2021 Obesity, Class I, BMI 30-34.9 11/30/2020 documented as of this encounter (statuses as of 10/20/2022) [facility] History of Past illness Narrative* Problem Noted Date Resolved Date Obesity, Class II, BMI 35-39.9 12/06/2021 0 08/11/2022 Pressure injury of sacral region, stage 2 202102/06/2022 Obesity, Class II, BMI 35-39.9 03/27/2021 0 12/06/2021 Obesity, Class I, BMI 30-34.9 11/30/2020 documented as of this encounter (statuses as of 10/30/2022) [facility] History of Past illness Narrative* Problem Noted Date Resolved Date Obesity, Class II, BMI 35-39.9 12/06/2021 0 08/11/2022 Pressure injury of sacral region, stage 2 202102/06/2022 Obesity, Class II, BMI 35-39.9 03/27/2021 0 12/06/2021 Obesity, Class I, BMI 30-34.9 11/30/2020 documented as of this encounter (statuses as of 10/31/2022) [facility] History of Past illness Narrative* Problem Noted Date Resolved Date Obesity, Class II, BMI 35-39.9 12/06/2021 0 08/11/2022 Pressure injury of sacral region, stage 2 202102/06/2022 Obesity, Class II, BMI 35-39.9 03/27/2021 0 12/06/2021 Obesity, Class I, BMI 30-34.9 11/30/2020 documented as of this encounter (statuses as of 11/05/2022) [facility] History of Past illness Narrative* Problem Noted Date Resolved Date Obesity, Class II, BMI 35-39.9 12/06/2021 0 08/11/2022 Pressure injury of sacral region, stage 2 202102/06/2022 Obesity, Class II, BMI 35-39.9 03/27/2021 0 12/06/2021 Obesity, Class I, BMI 30-34.9 11/30/2020 documented as of this encounter (statuses as of 11/11/2022) [facility] History of Past illness Narrative* Problem Noted Date Resolved Date Obesity, Class II, BMI 35-39.9 12/06/2021 0 08/11/2022 Pressure injury of sacral region, stage 2 202102/06/2022 Obesity, Class II, BMI 35-39.9 03/27/2021 0 12/06/2021 Obesity, Class I, BMI 30-34.9 11/30/2020 documented as of this encounter (statuses as of 11/13/2022) [facility] History of Past illness Narrative* Problem Noted Date Resolved Date Obesity, Class II, BMI 35-39.9 12/06/2021 0 08/11/2022 Pressure injury of sacral region, stage 2 202102/06/2022 Obesity, Class II, BMI 35-39.9 03/27/2021 0 12/06/2021 Obesity, Class I, BMI 30-34.9 11/30/2020 documented as of this encounter (statuses as of 11/15/2022) [facility] History of Past illness Narrative* Problem Noted Date Resolved Date Obesity, Class II, BMI 35-39.9 12/06/2021 0 08/11/2022 Pressure injury of sacral region, stage 2 202102/06/2022 Obesity, Class II, BMI 35-39.9 03/27/2021 0 12/06/2021 Obesity, Class I, BMI 30-34.9 11/30/2020 documented as of this encounter (statuses as of 11/17/2022) [facility] History of Past illness Narrative* Problem Noted Date Resolved Date Obesity, Class II, BMI 35-39.9 12/06/2021 0 08/11/2022 Pressure injury of sacral region, stage 2 202102/06/2022 Obesity, Class II, BMI 35-39.9 03/27/2021 0 12/06/2021 Obesity, Class I, BMI 30-34.9 11/30/2020 documented as of this encounter (statuses as of 11/18/2022) [facility] History of Past illness Narrative* Problem Noted Date Resolved Date Obesity, Class II, BMI 35-39.9 12/06/2021 0 08/11/2022 Pressure injury of sacral region, stage 2 202102/06/2022 Obesity, Class II, BMI 35-39.9 03/27/2021 0 12/06/2021 Obesity, Class I, BMI 30-34.9 11/30/2020 documented as of this encounter (statuses as of 11/19/2022) [facility] History of Past illness Narrative* Problem Noted Date Resolved Date Obesity, Class II, BMI 35-39.9 12/06/2021 0 08/11/2022 Pressure injury of sacral region, stage 2 202102/06/2022 Obesity, Class II, BMI 35-39.9 03/27/2021 0 12/06/2021 Obesity, Class I, BMI 30-34.9 11/30/2020 documented as of this encounter (statuses as of 11/24/2022) [facility] History of Past illness Narrative* Problem Noted Date Resolved Date Obesity, Class II, BMI 35-39.9 12/06/2021 0 08/11/2022 Pressure injury of sacral region, stage 2 202102/06/2022 Obesity, Class II, BMI 35-39.9 03/27/2021 0 12/06/2021 Obesity, Class I, BMI 30-34.9 11/30/2020 documented as of this encounter (statuses as of 11/27/2022) [facility] History of Past illness Narrative* Problem Noted Date Resolved Date Obesity, Class II, BMI 35-39.9 12/06/2021 0 08/11/2022 Pressure injury of sacral region, stage 2 202102/06/2022 Obesity, Class II, BMI 35-39.9 03/27/2021 0 12/06/2021 Obesity, Class I, BMI 30-34.9 11/30/2020 documented as of this encounter (statuses as of 11/28/2022) [facility] History of Past illness Narrative* Problem Noted Date Resolved Date Obesity, Class II, BMI 35-39.9 12/06/2021 0 08/11/2022 Pressure injury of sacral region, stage 2 202102/06/2022 Obesity, Class II, BMI 35-39.9 03/27/2021 0 12/06/2021 Obesity, Class I, BMI 30-34.9 11/30/2020 documented as of this encounter (statuses as of 12/02/2022) [facility] History of Past illness Narrative* Problem Noted Date Resolved Date Obesity, Class II, BMI 35-39.9 12/06/2021 0 08/11/2022 Pressure injury of sacral region, stage 2 202102/06/2022 Obesity, Class II, BMI 35-39.9 03/27/2021 0 12/06/2021 Obesity, Class I, BMI 30-34.9 11/30/2020 documented as of this encounter (statuses as of 12/17/2022) [facility] History of Past illness Narrative* Problem Noted Date Resolved Date Obesity, Class II, BMI 35-39.9 12/06/2021 0 08/11/2022 Pressure injury of sacral region, stage 2 202102/06/2022 Obesity, Class II, BMI 35-39.9 03/27/2021 0 12/06/2021 Obesity, Class I, BMI 30-34.9 11/30/2020 documented as of this encounter (statuses as of 01/07/2023) [facility] History of Past illness Narrative* Problem Noted Date Resolved Date Obesity, Class II, BMI 35-39.9 12/06/2021 0 08/11/2022 Pressure injury of sacral region, stage 2 202102/06/2022 Obesity, Class II, BMI 35-39.9 03/27/2021 0 12/06/2021 Obesity, Class I, BMI 30-34.9 11/30/2020 documented as of this encounter (statuses as of 01/15/2023) [facility] History of Past illness Narrative* Problem Noted Date Resolved Date Obesity, Class II, BMI 35-39.9 12/06/2021 0 08/11/2022 Pressure injury of sacral region, stage 2 202102/06/2022 Obesity, Class II, BMI 35-39.9 03/27/2021 0 12/06/2021 Obesity, Class I, BMI 30-34.9 11/30/2020 documented as of this encounter (statuses as of 01/23/2023) [facility] History of Past illness Narrative* Problem Noted Date Diagnosed Date Resolved Date Obesity, Class II, BMI 35-39.9 12/06/2021 08/11/2022 Pressure injury of sacral region, stage 2 11/29/2021 02/06/2022 Obesity, Class II, BMI 35-39.9 03/27/2021 12/06/2021 Obesity, Class I, BMI 30-34.9 11/30/2020 12/06/2021 documented as of this encounter (statuses as of 02/03/2023) [facility] History of Past illness Narrative* Problem Noted Date Diagnosed Date Resolved Date Obesity, Class II, BMI 35-39.9 12/06/2021 08/11/2022 Pressure injury of sacral region, stage 2 11/29/2021 02/06/2022 Obesity, Class II, BMI 35-39.9 03/27/2021 12/06/2021 Obesity, Class I, BMI 30-34.9 11/30/2020 12/06/2021 documented as of this encounter (statuses as of 02/04/2023) [facility] History of Past illness Narrative* Problem Noted Date Diagnosed Date Resolved Date Obesity, Class II, BMI 35-39.9 12/06/2021 08/11/2022 Pressure injury of sacral region, stage 2 11/29/2021 02/06/2022 Obesity, Class II, BMI 35-39.9 03/27/2021 12/06/2021 Obesity, Class I, BMI 30-34.9 11/30/2020 12/06/2021 documented as of this encounter (statuses as of 02/19/2023) [facility] History of Past illness Narrative* Problem Noted Date Diagnosed Date Resolved Date Obesity, Class II, BMI 35-39.9 12/06/2021 08/11/2022 Pressure injury of sacral region, stage 2 11/29/2021 02/06/2022 Obesity, Class II, BMI 35-39.9 03/27/2021 12/06/2021 Obesity, Class I, BMI 30-34.9 11/30/2020 12/06/2021 documented as of this encounter (statuses as of 02/27/2023) [facility] History of Past illness Narrative* Problem Noted Date Diagnosed Date Resolved Date Obesity, Class II, BMI 35-39.9 12/06/2021 08/11/2022 Pressure injury of sacral region, stage 2 11/29/2021 02/06/2022 Obesity, Class II, BMI 35-39.9 03/27/2021 12/06/2021 Obesity, Class I, BMI 30-34.9 11/30/2020 12/06/2021 documented as of this encounter (statuses as of 03/01/2023) [facility] History of Past illness Narrative* Problem Noted Date Diagnosed Date Resolved Date Obesity, Class II, BMI 35-39.9 12/06/2021 08/11/2022 Pressure injury of sacral region, stage 2 11/29/2021 02/06/2022 Obesity, Class II, BMI 35-39.9 03/27/2021 12/06/2021 Obesity, Class I, BMI 30-34.9 11/30/2020 12/06/2021 documented as of this encounter (statuses as of 03/03/2023) [facility] History of Past illness Narrative* Problem Noted Date Diagnosed Date Resolved Date Obesity, Class II, BMI 35-39.9 12/06/2021 08/11/2022 Pressure injury of sacral region, stage 2 11/29/2021 02/06/2022 Obesity, Class II, BMI 35-39.9 03/27/2021 12/06/2021 Obesity, Class I, BMI 30-34.9 11/30/2020 12/06/2021 documented as of this encounter (statuses as of 03/05/2023) [facility] History of Past illness Narrative* Problem Noted Date Diagnosed Date Resolved Date Obesity, Class II, BMI 35-39.9 12/06/2021 08/11/2022 Pressure injury of sacral region, stage 2 11/29/2021 02/06/2022 Obesity, Class II, BMI 35-39.9 03/27/2021 12/06/2021 Obesity, Class I, BMI 30-34.9 11/30/2020 12/06/2021 documented as of this encounter (statuses as of 04/02/2023) [address]20-2022 History of Past illness Narrative* Problem Noted Date Diagnosed Date Resolved Date Obesity, Class II, BMI 35-39.9 12/06/2021 08/11/2022 Pressure injury of sacral region, stage 2 11/29/2021 02/06/2022 Obesity, Class II, BMI 35-39.9 03/27/2021 12/06/2021 Obesity, Class I, BMI 30-34.9 11/30/2020 12/06/2021 documented as of this encounter (statuses as of 04/22/2023) [facility] History of Past illness Narrative* Problem Noted Date Diagnosed Date Resolved Date Obesity, Class II, BMI 35-39.9 12/06/2021 08/11/2022 Pressure injury of sacral region, stage 2 11/29/2021 02/06/2022 Obesity, Class II, BMI 35-39.9 03/27/2021 12/06/2021 Obesity, Class I, BMI 30-34.9 11/30/2020 12/06/2021 documented as of this encounter (statuses as of 06/11/2023) [facility] History of Past illness Narrative* Problem Noted Date Diagnosed Date Resolved Date Obesity, Class II, BMI 35-39.9 12/06/2021 08/11/2022 Pressure injury of sacral region, stage 2 11/29/2021 02/06/2022 Obesity, Class II, BMI 35-39.9 03/27/2021 12/06/2021 Obesity, Class I, BMI 30-34.9 11/30/2020 12/06/2021 documented as of this encounter (statuses as of 06/18/2023) [facility] History of Past illness Narrative* Problem Noted Date Diagnosed Date Resolved Date Obesity, Class II, BMI 35-39.9 12/06/2021 08/11/2022 Pressure injury of sacral region, stage 2 11/29/2021 02/06/2022 Obesity, Class II, BMI 35-39.9 03/27/2021 12/06/2021 Obesity, Class I, BMI 30-34.9 11/30/2020 12/06/2021 documented as of this encounter (statuses as of 06/19/2023) [facility] Miscellaneous Notes* Telephone Encounter - Inocente Nichols MD - 12/05/2021 5:06 PM EDT Noted. * Telephone Encounter - Esther Dean RN - 12/05/2021 3:01 PM EDT Dona @ [facility] calling back to let PCP know patient is receiving HH services from [place]. Their fax # is [phone]. Attention PACT 7. [facility] will not be providing any further services. If PCP feels patient needs referral to [facility] after OV on 12/06 please send referral directly to [facility]. Esther Dean RN * Telephone Encounter - Zully Goss RN - 12/05/2021 2:34 PM EDT Dona calling from [facility] to report plan of care for patient and SN will visit patient 2 times a week for first week, 3 times a week for 1 week, 2 times a week for 2 weeks, and 1 time a week for 1 week. SN will work with patient on disease/medication management and wound care. Dona requesting an order for referral be sent to [facility] for further wound care of sacral pressure ulcer stage 2 and a verbal order for austin wraps to bilateral lower legs for 3+ pitting edema. Patient has appointment tomorrow 12/06 with provider. Call back number is [phone]. Zully Goss RN documented in this encounterPremier Health [facility]05-18-2022 Miscellaneous Notes* Telephone Encounter - Елена Choe [...] (but not on a Thursday): DEPT: [facility] APPT NOTE: 2 MO FOLLOW UP/CT 01/13* APPT TYPE: PROVIDER PHONE CALL PROVIDER: NGHIA HARVEY Please schedule in any open 30 minute appointment time that is not on a Thursday. Once scheduled, document and route to [facility]ONC PSR. Елена Choe documented in this encounterPremier Health Miami [facility]05-18-2022 Miscellaneous Notes* Telephone Encounter - Berenice Hoyos RN - 12/04/2021 8:13 AM EDT Pt called in asking about nursing coming in and looking at his wound and doing dressing changes to it. Pt was notified that [facility] was referred and would be reaching out to him. Called Juliann at [facility] and gave providers wound orders. * [...] - 12/03/2021 10:21 AM EDT Juliann with [facility] calling to state they received a referral from Dr. Nichols's office for Nursing, PT and OT services. She is requesting wound care orders for patient including what dressings to use and frequency of dressing changes. Juliann also reports that [facility] are not able to do daily dressing changes and that patient would have to have a caregiver perform the dressing changes if needed. Please fax orders to [phone]. Thank you. documented in this encounterPremier Health Miami [facility]05-14-2022 Miscellaneous Notes* Telephone Encounter - Yehuda Galvez Ma - 11/30/2021 11:00 AM EDT All information re-faxed along with office note. Yehuda Galvez Ma * Telephone Encounter - Inocente Nichols MD - 11/30/2021 10:17 AM EDT Patient seen yesterday. Order printed. * Telephone Encounter - Natalie Hussein LPN - 11/29/2021 2:29 PM EDT [place] from [facility] calling patient needing a lift chair. Asking for order for [employer] phone number [phone] and fax is [phone]. [employer] is requiring Rx and demographics, copy of office visit notes. They will fax a CMN to PCP to complete. Please advise documented in this encounterPremier Health [facility]05-13-2022 History of Present illness Narrative* Inocente Nichols MD - 11/29/2021 4:52 PM EDT This note was created using EyeNetrariter. Subjective Kelly Damian is a 71 year old male. He fell 05/20/21 and was admitted at [facility] for right hip fracture, COPD exacerbation, hyponatremia, SIADH. He was discharged to [place] where he stayed until September when he left [facility] when insurance ran out. He has been essentially wheelchair bound since then. [place] nurse and [facility] nurse checked on him periodically but no HH, PT, or OT was set up. He has developed bedsores and [place] started supplying gelfoam dressings. Review of Systems [...] Disorder (Hcc) Copd (Chronic Obstructive Pulmonary Disease) ([facility]) Benign Prostatic Hyperplasia With Urinary Frequency Chronic Hip Pain, Bilateral Chronic Bilateral Low Back Pain Tobacco Use Disorder Lymphedema Coronary Artery Disease Involving [place] Coronary Artery Obesity, Class I, Bmi 30-34.9 [...] is obese. 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 HENT: Head: Normocephalic. Eyes: Conjunctiva/sclera: Conjunctivae [...] Pressure injury of sacral region, stage [address] ([facility]) - ICD9: 707.03, 707.22, ICD10: L89.152 [...] FACILITY Inocente Nichols MD documented in this encounterPremier Health [facility]05-13-2022 History of Past illness Narrative* Problem Noted Date Resolved Date Pressure injury of sacral region, stage 2 202102/06/2022 Obesity, Class II, BMI 35-39.9 03/27/2021 0 12/06/2021 Obesity, Class I, BMI 30-34.9 11/30/2020 documented as of this encounter (statuses as of 02/06/2022) [facility]05-13-2022 History of Past illness Narrative* Problem Noted Date Resolved Date Pressure injury of sacral region, stage 2 202102/06/2022 Obesity, Class II, BMI 35-39.9 03/27/2021 0 12/06/2021 Obesity, Class I, BMI 30-34.9 11/30/2020 documented as of this encounter (statuses as of 02/27/2022) [facility]05-13-2022 History of Past illness Narrative* Problem Noted Date Resolved Date Pressure injury of sacral region, stage 2 202102/06/2022 Obesity, Class II, BMI 35-39.9 03/27/2021 0 12/06/2021 Obesity, Class I, BMI 30-34.9 11/30/2020 documented as of this encounter (statuses as of 03/07/2022) [address]13-2022 History of Past illness Narrative* Problem Noted Date Resolved Date Pressure injury of sacral region, stage 2 202102/06/2022 Obesity, Class II, BMI 35-39.9 03/27/2021 0 12/06/2021 Obesity, Class I, BMI 30-34.9 11/30/2020 documented as of this encounter (statuses as of 03/10/2022) [facility] History of Past illness Narrative* Problem Noted Date Resolved Date Pressure injury of sacral region, stage 2 202102/06/2022 Obesity, Class II, BMI 35-39.9 03/27/2021 0 12/06/2021 Obesity, Class I, BMI 30-34.9 11/30/2020 documented as of this encounter (statuses as of 03/19/2022) [facility] History of Past illness Narrative* Problem Noted Date Resolved Date Pressure injury of sacral region, stage 2 202102/06/2022 Obesity, Class II, BMI 35-39.9 03/27/2021 0 12/06/2021 Obesity, Class I, BMI 30-34.9 11/30/2020 documented as of this encounter (statuses as of 03/19/2022) [facility] History of Past illness Narrative* Problem Noted Date Resolved Date Pressure injury of sacral region, stage 2 202102/06/2022 Obesity, Class II, BMI 35-39.9 03/27/2021 0 12/06/2021 Obesity, Class I, BMI 30-34.9 11/30/2020 documented as of this encounter (statuses as of 03/21/2022) [facility] History of Past illness Narrative* Problem Noted Date Resolved Date Pressure injury of sacral region, stage 2 202102/06/2022 Obesity, Class II, BMI 35-39.9 03/27/2021 0 12/06/2021 Obesity, Class I, BMI 30-34.9 11/30/2020 documented as of this encounter (statuses as of 03/27/2022) [facility] History of Past illness Narrative* Problem Noted Date Resolved Date Pressure injury of sacral region, stage 2 202102/06/2022 Obesity, Class II, BMI 35-39.9 03/27/2021 0 12/06/2021 Obesity, Class I, BMI 30-34.9 11/30/2020 documented as of this encounter (statuses as of 04/04/2022) [facility] History of Past illness Narrative* Problem Noted Date Resolved Date Pressure injury of sacral region, stage 2 202102/06/2022 Obesity, Class II, BMI 35-39.9 03/27/2021 0 12/06/2021 Obesity, Class I, BMI 30-34.9 11/30/2020 documented as of this encounter (statuses as of 04/14/2022) [facility] History of Past illness Narrative* Problem Noted Date Resolved Date Pressure injury of sacral region, stage 2 202102/06/2022 Obesity, Class II, BMI 35-39.9 03/27/2021 0 12/06/2021 Obesity, Class I, BMI 30-34.9 11/30/2020 documented as of this encounter (statuses as of 04/28/2022) [facility] History of Past illness Narrative* Problem Noted Date Resolved Date Pressure injury of sacral region, stage 2 202102/06/2022 Obesity, Class II, BMI 35-39.9 03/27/2021 0 12/06/2021 Obesity, Class I, BMI 30-34.9 11/30/2020 documented as of this encounter (statuses as of 05/01/2022) [facility] History of Past illness Narrative* Problem Noted Date Resolved Date Pressure injury of sacral region, stage 2 202102/06/2022 Obesity, Class II, BMI 35-39.9 03/27/2021 0 12/06/2021 Obesity, Class I, BMI 30-34.9 11/30/2020 documented as of this encounter (statuses as of 05/03/2022) [facility] History of Past illness Narrative* Problem Noted Date Resolved Date Pressure injury of sacral region, stage 2 202102/06/2022 Obesity, Class II, BMI 35-39.9 03/27/2021 0 12/06/2021 Obesity, Class I, BMI 30-34.9 11/30/2020 documented as of this encounter (statuses as of 05/09/2022) [facility] History of Past illness Narrative* Problem Noted Date Resolved Date Pressure injury of sacral region, stage 2 202102/06/2022 Obesity, Class II, BMI 35-39.9 03/27/2021 0 12/06/2021 Obesity, Class I, BMI 30-34.9 11/30/2020 documented as of this encounter (statuses as of 05/10/2022) [facility] History of Past illness Narrative* Problem Noted Date Resolved Date Pressure injury of sacral region, stage 2 202102/06/2022 Obesity, Class II, BMI 35-39.9 03/27/2021 0 12/06/2021 Obesity, Class I, BMI 30-34.9 11/30/2020 documented as of this encounter (statuses as of 05/20/2022) [facility] History of Past illness Narrative* Problem Noted Date Resolved Date Pressure injury of sacral region, stage 2 202102/06/2022 Obesity, Class II, BMI 35-39.9 03/27/2021 0 12/06/2021 Obesity, Class I, BMI 30-34.9 11/30/2020 documented as of this encounter (statuses as of 05/30/2022) [address]13-2022 History of Past illness Narrative* Problem Noted Date Resolved Date Pressure injury of sacral region, stage 2 202102/06/2022 Obesity, Class II, BMI 35-39.9 03/27/2021 0 12/06/2021 Obesity, Class I, BMI 30-34.9 11/30/2020 documented as of this encounter (statuses as of 06/03/2022) [facility] History of Past illness Narrative* Problem Noted Date Resolved Date Pressure injury of sacral region, stage 2 202102/06/2022 Obesity, Class II, BMI 35-39.9 03/27/2021 0 12/06/2021 Obesity, Class I, BMI 30-34.9 11/30/2020 documented as of this encounter (statuses as of 06/09/2022) [facility] History of Past illness Narrative* Problem Noted Date Resolved Date Pressure injury of sacral region, stage 2 202102/06/2022 Obesity, Class II, BMI 35-39.9 03/27/2021 0 12/06/2021 Obesity, Class I, BMI 30-34.9 11/30/2020 documented as of this encounter (statuses as of 07/03/2022) [facility] History of Past illness Narrative* Problem Noted Date Resolved Date Pressure injury of sacral region, stage 2 202102/06/2022 Obesity, Class II, BMI 35-39.9 03/27/2021 0 12/06/2021 Obesity, Class I, BMI 30-34.9 11/30/2020 documented as of this encounter (statuses as of 07/13/2022) [address]13-2022 History of Past illness Narrative* Problem Noted Date Resolved Date Pressure injury of sacral region, stage 2 202102/06/2022 Obesity, Class II, BMI 35-39.9 03/27/2021 0 12/06/2021 Obesity, Class I, BMI 30-34.9 11/30/2020 documented as of this encounter (statuses as of 07/23/2022) [facility] History of Past illness Narrative* Problem Noted Date Resolved Date Pressure injury of sacral region, stage 2 202102/06/2022 Obesity, Class II, BMI 35-39.9 03/27/2021 0 12/06/2021 Obesity, Class I, BMI 30-34.9 11/30/2020 documented as of this encounter (statuses as of 07/25/2022) [facility] History of Past illness Narrative* Problem Noted Date Resolved Date Pressure injury of sacral region, stage 2 202102/06/2022 Obesity, Class II, BMI 35-39.9 03/27/2021 0 12/06/2021 Obesity, Class I, BMI 30-34.9 11/30/2020 documented as of this encounter (statuses as of 07/31/2022) [facility] History of Past illness Narrative* Problem Noted Date Resolved Date Pressure injury of sacral region, stage 2 202102/06/2022 Obesity, Class II, BMI 35-39.9 03/27/2021 0 12/06/2021 Obesity, Class I, BMI 30-34.9 11/30/2020 documented as of this encounter (statuses as of 08/01/2022) [facility] History of Past illness Narrative* Problem Noted Date Resolved Date Pressure injury of sacral region, stage 2 202102/06/2022 Obesity, Class II, BMI 35-39.9 03/27/2021 0 12/06/2021 Obesity, Class I, BMI 30-34.9 11/30/2020 documented as of this encounter (statuses as of 08/05/2022) [facility]05-10-2022 Miscellaneous Notes* Telephone Encounter - Yehuda Galvez Ma - 11/26/2021 3:06 PM EDT Spoke with Nadege - states that patient used [facility] in the passed with Medicaid. Order and all patient information faxed and patient notified. Yehuda Galvez Ma * Telephone Encounter - Jillian Vasquez RN - 11/20/2021 1:46 PM EDT Nadege- nurse at [place], reports patient reports he has wounds on buttocks. Patient reported to nurse pcp doctor looked at it at his last appt, and took pictures of it, and prescribed vicodin. Appears last doctor patient saw at [facility] was pain mgmt, and there is a noted comment in ov notes. Nadege reports patient needs [facility] nurse for wound care and medication management. Reports the [facility] only sees patient's once a month. Reports patient will need to be seen more often than that for wound care, probably once or twice a week. Asking pcp office to place order and send to [facility] for patient. documented in this encounterPremier Health [facility]05-02-2022 Miscellaneous Notes* Telephone Encounter - Yehuda Galvez Ma - 11/18/2021 2:37 PM EDT TC to patient's sister Deyanira Left message to call office. 11/18/2021 2:38 PM Not in patient's chart that he see's a area representative.Per podi office - Dr. Wang will do [...] his toe nails do. documented in this encounterPremier Health [facility]04-28-2022 NoteHNO ID: [id number] Author: Evi Diaz MA Service: ? Author Type: Twisthand Type: Progress Notes Filed: 11/14/2021 12:05 PM [...] suicidal ideas. The patient is nervous/anxious.[facility] 11-14-2021 History of Present illness Narrative* [...] AM EDT [facility]: Kelly Damian : 1950 [...] - Nothing at the moment Pain Assessment (RN/CANOE INSPECTOR FINAL) - - Pain: Timing: constant Character: Aching Primary location: axial low back Radiation: into the left > right buttock Exacerbated factors: Standing and walking Alleviating factors: Sitting Medication: Current pain medications: o Tylenol OTC 650mg, takes 4 per day o Mobic 15mg daily o Baclofen 10mg qHS PRN spasms Analgesia: Not adequate Function: Weekly Activity Level (0=none; 25=778+ minutes of total activity not including work activity): 08/29 Ambulation and Activities of Daily Living: With a walker or wheelchair Device Independent Exercise(s) or Activities: none 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 All prescriptions have been APPROPRIATELY filled. No suspicious activity was identified. by Juancho Carpenter MD 11/14/2021 Baldwin 5/325, #28 (05/16/2021) [facility] from 03/14/2021: Center [...] none NSAIDS: Mobic (Meloxicam) Opioids: Vicodin or [place] (Hydrocodone) Muscle Relaxants: Lioresal (Baclofen) and Zanaflex [...] participation, and/or improving quality of life: Medication(s): Baldwin 5/325 #28, taking sparingly, will refill today Mobic 15mg daily - Discontinue Diclofenac 75mg BID - Start Baclofen 10mg qHS PRN spasms - will hold off on refill until I can verify his current medications OK to continue Tylenol OTC Additional Studies: None Referrals: No additional considerations at present Functional Temple: Physical Therapy (Land-based) - advised home-based care [...] MBA Pain Management [facility] documented in this encounterPremier Health [facility]04-28-2022 NoteHNO ID: [id number] Author: Juancho Carpenter MD Service: ? 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 Quadriceps (more content not included)...[facility] 11-07-2021 Instructions* Patient Instructions* Edvin Cosby APRN.CERTIFIED WELDING INSPECTOR, DNP - 11/07/2021 7:35 AM EDT Follow [...] health. Edvin Cosby DNP.CARROL documented in this encounterPremier Health [facility]04-21-2022 History of Present illness Narrative* Edvin Cosby [...] 6 weeks ago he was released from [facility] status post right hip replacement and fall. Was seen at the [facility] in [place]. Recently established with Dr. Nichols. Last appt was 03/2021. 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 Sister present with patient. In a wheel chair. Difficulty with ambulation. Specialty providers: Pulmonology: Dr. Cayden Chow [facility] Oncology: Dr. Hammer Radiation oncology: Dr. Harvey Psychiatry: Dr. White - [place] and Ary Bae - [facility] Pain management: Dr. Carpenter Past medical history: [...] undergoing radiation treatment with Dr. Wes Leon [facility]. Diagnosed with lung cancer in 2020. [...] disease) (HCC) 11/30/2020 Coronary artery disease involving [place] coronary artery 11/30/2020 Esophageal stenosis Essential hypertension [...] with current medications. Continue follow up with [facility] Edvin Cosby APRN.CERTIFIED WELDING INSPECTOR, DNP This note was completed with BuildDirect dictation software. Note was reviewed for accuracy. There may be minor misspellings or grammar miscues with [employer] Dictation. I spent a total of 38 minutes on the date of the service which included preparing to see the patient, [id number] patient care, completing clinical documentation, performing a medically appropriate examination, counseling and educating the patient/family/caregiver and ordering medications, tests, or procedures. Erica Ville [phone] documented in this encounterPremier Health [facility]04-20-2022 Miscellaneous Notes* Telephone Encounter - Isela Harmon [...] to talk to him. documented in this encounterPremier Health [facility]04-20-2022 History of Present illness Narrative* Nghia Harvey [...] minutes Nghia Harvey MD documented in this encounterPremier Health [facility]03-23-2022 Nurse Note* Isela Harmon RN - 10/09/2021 [...] patient education: 05 minutes. documented in this encounterPremier Health Miami [facility]12-29-2021 NoteHNO ID: [id number] Author: Rochelle Elliott Service: ? Author Type: ? Type: Progress Notes Filed: 07/17/2021 9:32 AM Note Text: Attempted to contact patient on home phone and I received a busy tone. Unable to leave a voicemail on patients cellphone. Rochellepreet ElliottNorthern Light [facility]12-29-2021 NoteHNO ID: [id number] Author: Criselda Irizarry APRN.[facility] Service: ? Author Type: Nurse Practitioner Type: Progress Notes Filed: 07/17/2021 9:12 AM Note Text: Attempted to leave message, mailbox was full, reschedule Criselda Irizarry APRN.[facility]10-28-2021 NoteHNO ID: [id number] Author: Summer Ruff Service: ? Author Type: [...] ideas. The patient is not nervous/anxious.[facility]10-28-2021 NoteHNO ID: [id number] Author: Juancho Carpenter MD Service: ? 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 [...] none NSAIDS: Mobic (Meloxicam) Opioids: Vicodin or [place] (Hydrocodone) Muscle Relaxants: Lioresal (Baclofen) and Zanaflex [...] tenderness over (more content not included)...[facility]09-23-2021 NoteProcedure (CMGWO) RICKIEKELLY ([id number]) 1950 M Date Time Provider Department 04/11/21 1:15 PM JUANCHO CARPENTER III During your visit today, we recorded the following information about you: Weight Height 112.5 kg 1.803 m Juancho Carpenter MD 04/11/2021 1:33 PM Signed [facility] Patient name: Kelly Damian Date of [...] double vision) ? Respiratory: Negative (No Cough, [id number], Dyspnea on exertion, wheezing) ? Cardiovascular: Negative [...] with urinary frequency 11/30/2020 - Bipolar disorder ([facility]) 11/30/2020 - Chronic bilateral low back pain 11/30/2020 - Chronic hip pain, bilateral 11/30/2020 - COPD (chronic obstructive pulmonary disease) ([facility]) 11/30/2020 - Coronary artery disease involving [place] coronary artery 11/30/2020 - Esophageal stenosis - Essential hypertension - Gastroesophageal reflux disease without esophagitis 11/30/2020 - History of colon polyps 03/27/2021 - Lymphedema 11/30/2020 - Mixed hyperlipidemia - Other and unspecified hyperlipidemia - Paroxysmal A-fib ([facility]) - Tobacco use disorder 11/30/2020 ? [...] to vi (more content not included)...[facility]09-23-2021 NoteHNO ID: [id number] Author: Elva Dee LPN Service: ? Author [...] with urinary frequency 11/30/2020 - Bipolar disorder ([facility]) 11/30/2020 - Chronic bilateral low back pain 11/30/2020 - Chronic hip pain, bilateral 11/30/2020 - COPD (chronic obstructive pulmonary disease) ([facility]) 11/30/2020 - Coronary artery disease involving [place] coronary artery 11/30/2020 - Esophageal stenosis - Essential hypertension - Gastroesophageal reflux disease without esophagitis 11/30/2020 - History of colon polyps 03/27/2021 - Lymphedema 11/30/2020 - Mixed hyperlipidemia - Other and unspecified hyperlipidemia - Paroxysmal A-fib ([facility]) - Tobacco use disorder 11/30/2020 PAST SURGICAL HISTORY Procedure Laterality Date - COLONOSCOPY 2005 10-15 years ago, [place], polyps x 3 removed. - REPAIR ING [...] lb) BMI 34.59 kg/m? Physical ExamNorthern Light [facility]09-23-2021 NoteHNO ID: [id number] Author: Juancho Carpenter III, MD Service: ? Author Type: Physician Type: Progress Notes Filed: 04/11/2021 1:33 PM Note Text: [facility] Patient name: Kelly Damian Date of [...] double vision) ? Respiratory: Negative (No Cough, [id number], Dyspnea on exertion, wheezing) ? Cardiovascular: Negative [...] with urinary frequency 11/30/2020 - Bipolar disorder ([facility]) 11/30/2020 - Chronic bilateral low back pain 11/30/2020 - Chronic hip pain, bilateral 11/30/2020 - COPD (chronic obstructive pulmonary disease) ([facility]) 11/30/2020 - Coronary artery disease involving gakona coronary artery 11/30/2020 - Esophageal stenosis - Essential hypertension - Gastroesophageal reflux disease without esophagitis 11/30/2020 - History of colon polyps 03/27/2021 - Lymphedema 11/30/2020 - Mixed hyperlipidemia - Other and unspecified hyperlipidemia - Paroxysmal A-fib ([facility]) - Tobacco use disorder 11/30/2020 ? [...] and Person ? 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 (more content not included)...[facility]09-20-2021 NoteProcedure (AGSPHWG) KELLY DAMIAN ([id number]) 1950 M Date Time Provider Department 04/08/21 [...] Lymphedema [I89.0] 11/30/2020 Coronary artery disease involving gakona finch*11/30/2020 Obesity, Class I, BMI 30.0-34.9 (see actual BMI*11/30/2020 Urinary incontinence [R32] 11/30/2020 Gastroesophageal reflux disease without esophag*11/30/2020 Adenocarcinoma of left lung (HCC) [C34.92] 01/23/2021 History of colon polyps [Z86.010] 03/27/2021 Obesity, Class II, BMI 35-39.9 [E66.9] 03/27/2021 Encounter Status:Closed by JUANCHO CARPENTER III on 04/09/21[facility]09-08-2021 History of Past illness Narrative* Problem Noted Date Resolved Date Obesity, Class II, BMI 35-39.9 03/27/2021 0 12/06/2021 Obesity, Class I, BMI 30-34.9 11/30/2020 documented as of this encounter (statuses as of 12/06/2021) [address]08-2021 History of Past illness Narrative* Problem Noted Date Resolved Date Obesity, Class II, BMI 35-39.9 03/27/2021 0 12/06/2021 Obesity, Class I, BMI 30-34.9 11/30/2020 documented as of this encounter (statuses as of 12/07/2021) [address]08-2021 History of Past illness Narrative* Problem Noted Date Resolved Date Obesity, Class II, BMI 35-39.9 03/27/2021 0 12/06/2021 Obesity, Class I, BMI 30-34.9 11/30/2020 documented as of this encounter (statuses as of 12/09/2021) [address]08-2021 History of Past illness Narrative* Problem Noted Date Resolved Date Obesity, Class II, BMI 35-39.9 03/27/2021 0 12/06/2021 Obesity, Class I, BMI 30-34.9 11/30/2020 documented as of this encounter (statuses as of 12/12/2021) [address]08-2021 History of Past illness Narrative* Problem Noted Date Resolved Date Obesity, Class II, BMI 35-39.9 03/27/2021 0 12/06/2021 Obesity, Class I, BMI 30-34.9 11/30/2020 documented as of this encounter (statuses as of 12/13/2021) [address]08-2021 History of Past illness Narrative* Problem Noted Date Resolved Date Obesity, Class II, BMI 35-39.9 03/27/2021 0 12/06/2021 Obesity, Class I, BMI 30-34.9 11/30/2020 documented as of this encounter (statuses as of 01/09/2022) [address]08-2021 History of Past illness Narrative* Problem Noted Date Resolved Date Obesity, Class II, BMI 35-39.9 03/27/2021 0 12/06/2021 Obesity, Class I, BMI 30-34.9 11/30/2020 documented as of this encounter (statuses as of 01/15/2022) [facility]09-08-2021 History of Past illness Narrative* Problem Noted Date Resolved Date Obesity, Class II, BMI 35-39.9 03/27/2021 0 12/06/2021 Obesity, Class I, BMI 30-34.9 11/30/2020 documented as of this encounter (statuses as of 01/17/2022) [facility]09-08-2021 History of Past illness Narrative* Problem Noted Date Resolved Date Obesity, Class II, BMI 35-39.9 03/27/2021 0 12/06/2021 Obesity, Class I, BMI 30-34.9 11/30/2020 documented as of this encounter (statuses as of 01/22/2022) [facility]09-08-2021 History of Past illness Narrative* Problem Noted Date Resolved Date Obesity, Class II, BMI 35-39.9 03/27/2021 0 12/06/2021 Obesity, Class I, BMI 30-34.9 11/30/2020 documented as of this encounter (statuses as of 01/30/2022) [facility]08-26-2021 NoteHNO ID: [id number] Author: Elva Dee LPN Service: ? Author [...] 11/30/2020 - COPD (chronic obstructive pulmonary disease) ([facility]) 11/30/2020 - Coronary artery disease involving gakona coronary artery 11/30/2020 - Esophageal stenosis - Essential hypertension - Gastroesophageal reflux disease without esophagitis 11/30/2020 - Lymphedema 11/30/2020 - Mixed hyperlipidemia - Other and unspecified hyperlipidemia - Paroxysmal A-fib ([facility]) - Tobacco use disorder 11/30/2020 PAST [...] lb) BMI 33.91 kg/m? [facility] NoteHNO ID: [id number] Author: Juancho Carpenter III, MD Service: ? 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: To be able [...] Stabilizers: none NSAIDS: none Opioids: Vicodin or [place] (Hydrocodone) Muscle Relaxants: Zanaflex (Tizanidine) Topicals: none [...] bursitis, pre (more content not included)...[facility] Sinobronchitis- Primary Unspecified sinusitis (chronic) Obesity, Class I, BMI 30-34.9 Obesity, unspecified Adenocarcinoma of left lung (HCC) Centrilobular emphysema (HCC) Other emphysema Tobacco use disorder Bipolar disorder, in full remission, most recent episode mixed (HCC) Bipolar I disorder, most recent episode (or current) mixed, in full remission documented in this encounter [facility] Diagnosis Sinobronchitis Unspecified sinusitis (chronic) documented [facility] Diagnosis Radiotherapy follow-up- Primary Radiotherapy follow-up examination Neoplasm of lung Neoplasm of unspecified nature of respiratory system Primary cancer of right lower lobe of lung (HCC) documented [facility] this [facility] Diagnosis Lumbar spondylosis- Primary Lumbosacral spondylosis without myelopathy Spinal stenosis of lumbar region with neurogenic claudication Spinal stenosis, lumbar region, with neurogenic claudication Trochanteric bursitis of left hip Enthesopathy of hip region documented [facility] this [facility] Diagnosis Pressure injury of skin of buttock, unspecified injury stage, unspecified laterality- Primary [facility] Diagnosis Pressure injury of sacral region, stage 2 (HCC)- Primary Physical debility Debility, unspecified S/P right hip fracture Spinal stenosis, lumbar region, with neurogenic claudication Centrilobular emphysema (HCC) Other emphysema documented [facility] Diagnosis Trochanteric bursitis of right hip- Primary Enthesopathy of hip region Lumbar spondylosis Lumbosacral spondylosis without myelopathy Spinal stenosis of lumbar region with neurogenic claudication Spinal stenosis, lumbar region, with neurogenic claudication Trochanteric bursitis of left hip Enthesopathy of hip region Spinal stenosis, lumbar region with neurogenic claudication [facility] Diagnosis Cellulitis of right lower leg- Primary Cellulitis and abscess of leg, except foot [facility] Diagnosis Neoplasm of lung Neoplasm of unspecified nature of respiratory system [facility] Diagnosis Cellulitis of right lower leg- Primary Cellulitis and abscess of leg, except foot Lymphedema Other lymphedema [facility] Diagnosis Primary hypertension- Primary Unspecified [...] pulmonary heart diseases [facility] Diagnosis Spinal stenosis of lumbar region with neurogenic claudication- Primary Spinal stenosis, lumbar region, with neurogenic claudication Lumbar spondylosis Lumbosacral spondylosis without myelopathy Trochanteric bursitis of left hip Enthesopathy of hip region Trochanteric bursitis of right hip Enthesopathy of hip region [facility] Diagnosis Hyponatremia- Primary Hyposmolality and/or hyponatremia Obesity, Class I, BMI 30-34.9 Obesity, unspecified Centrilobular emphysema (HCC) Other emphysema Lymphedema Other lymphedema Uncomplicated alcohol dependence (HCC) Other and unspecified alcohol dependence, unspecified drinking behavior Benign prostatic hyperplasia with urinary frequency Bipolar affective disorder, remission status unspecified (HCC) Primary hypertension Unspecified essential hypertension [facility] this [facility]* Diagnosis Lymphedema Other lymphedema documented [facility]* Diagnosis Neoplasm of lung Neoplasm of unspecified nature of respiratory system [facility]* Diagnosis COVID-19 virus infection- Primary [facility] this encounter [facility]* Diagnosis Adenocarcinoma of left lung (HCC)- Primary [facility] this [facility]* Diagnosis Preoperative examination- Primary Preoperative examination, unspecified Bradycardia Other specified cardiac dysrhythmias Coronary artery disease involving gakona coronary artery of gakona heart without angina pectoris Primary hypertension Unspecified essential hypertension Centrilobular emphysema (HCC) Other emphysema [facility] Diagnosis Abnormal chest x-ray- Primary Other nonspecific abnormal finding of lung field [facility] this [facility] Diagnosis Neoplasm of lung- Primary Neoplasm of unspecified nature of respiratory system [facility] this [facility]* Diagnosis Lymphedema- Primary Other lymphedema Primary hypertension Unspecified essential hypertension Abnormal chest x-ray Other nonspecific abnormal finding of lung field Need for influenza vaccination Need for prophylactic vaccination and inoculation against influenza [facility]* Diagnosis Lymphedema Other lymphedema [facility] this [facility]* Diagnosis Lymphedema- Primary Other lymphedema Need for vaccination Need for prophylactic vaccination and inoculation against unspecified single disease Centrilobular emphysema (HCC) Other emphysema Pulmonary hypertension due to COPD (HCC) Other chronic pulmonary heart diseases Uncomplicated alcohol dependence (HCC) Other and unspecified alcohol dependence, unspecified drinking behavior Bipolar affective disorder, remission status unspecified (HCC) documented in this encounter [facility] note* Diagnosis Lymphedema Other lymphedema [facility] this encounter [facility]* Diagnosis Wound of right lower extremity, subsequent encounter- Primary Urinary incontinence, unspecified type Physical debility Debility, unspecified Lymphedema Other lymphedema documented in this encounter [facility]* Diagnosis Primary cancer of left lower lobe of lung (HCC)- Primary Thrombocytopenia (HCC) Thrombocytopenia, unspecified documented in this encounter [facility]* Diagnosis Lymphedema- Primary Other lymphedema Spinal stenosis, lumbar region, with neurogenic claudication Urinary incontinence, unspecified type Physical debility Debility, unspecified Constipation, unspecified constipation type Primary hypertension Unspecified essential hypertension [facility] this [facility]* Diagnosis Radiotherapy follow-up- Primary Radiotherapy follow-up examination Malignant neoplasm of unspecified part of unspecified bronchus or lung (HCC) documented [facility] this encounter [facility]* Diagnosis Lymphedema Other lymphedema documented in this encounter [facility] note* Diagnosis Lymphedema- Primary Other lymphedema documented in this encounter [facility] note* Diagnosis Ulcers of both lower legs (HCC)- Primary Ulcer of lower limb, unspecified documented in this encounter [facility] note* Diagnosis Lung nodules- Primary Other nonspecific abnormal finding of lung field documented in this encounter [facility] note* Diagnosis Ulcers of both lower legs (HCC)- Primary Ulcer of lower limb, unspecified Lymphedema Other lymphedema Pressure injury of buttock, stage 2, unspecified laterality (HCC) Physical debility Debility, unspecified Lung nodules Other nonspecific abnormal finding of lung field 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) Hyponatremia Hyposmolality and/or hyponatremia Anemia, unspecified type documented in this encounter [facility] note* Diagnosis PAD (peripheral artery disease) (HCC)- Primary Peripheral vascular disease, unspecified Dermatophytosis of nail Lymphedema Other lymphedema documented in this encounter [facility] note* Diagnosis Impacted cerumen of left ear- Primary Impacted cerumen Pressure injury of buttock, stage 2, unspecified laterality (HCC) Physical debility Debility, unspecified Lymphedema Other lymphedema documented in this encounter [facility] note* Diagnosis Lung nodules Other nonspecific abnormal finding of lung field documented in this encounter [facility] note* Diagnosis Malignant neoplasm of unspecified part of unspecified bronchus or lung (HCC)- Primary documented in this encounter [facility] Advance Directives No Advanced Directives Records FoundDocuments on File Type Date Recorded 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 Advance Directive(s) 07/03/2021 1:23 PM Documents on File Type Date Recorded 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 Advance Directive(s) 07/03/2021 1:23 PM Reason for Referral Specialty Diagnoses / Procedures Referred By Contac t Referred To Contact CT IMAGING Diagnoses Neoplasm of lung Procedures CT CHEST WO IVCON DIAGNOSTIC COMPUTED TOMOGRAPHY THORAX W/O CNTRST Nghia Harvey MD, [address] [place] [address] Ct Imaging Referral ID Status Reason Start Date Expiration Date Visits Requested Visits Authorized [id number] Pending Review Auto-Generat ed Referral 01/13/2022 12/06/2022 1 1 Referral ID Status Reason Start Date Expiration Date V isits Requested Visits Authorized [id number] Closed Auto-Generate d Referral 01/13/2022 12/06/2022 1 1 Referral ID Status Reason Start Date Expiration Date V isits Requested Visits Authorized [id number] Closed Auto-Generate d Referral 05/02/2022 03/01/2023 1 1 Specialty Diagnoses / Procedures Referred By Contac t Referred To Contact Cardiology Diagnoses Preoperative examination Bradycardia Coronary artery disease involving gakona coronary artery of gakona heart without angina pectoris Procedures CONSULT TO CARDIOLOGY OFFICE/OUTPATIENT [facility] MDM 60-74 MINUTES Inocente Nichols MD [address] [place] [address] Referral ID Status Reason Start Date Expiration Date Visits Requested Visits Authorized [id number] Authorized PCP Requested Referral 2 05/30/2023 1 1 Specialty Diagnoses / Procedures Referred By Contac t Referred [facility] Diagnoses Preoperative examination Procedures ECG COMPLETE ECG ROUTINE ECG W/LEAST 12 LDS W/I&R Inocente Nichols MD [address] [place] [address] [facility] [address] [place] [address] Referral ID Status Reason Start Date Expiration Date Visits Requested Visits Authorized [id number] Pending Review Auto-Generat ed Referral 2 05/30/2023 1 1 Referral ID Status Reason Start Date Expiration Date Visits Requested Visits Authorized [id number] Authorized Auto-Generat ed Referral 10/01/2022 08/02/2023 1 1 Specialty Diagnoses / Procedures Referred By Contac t Referred To Contact CT IMAGING Diagnoses Malignant neoplasm of unspecified part of unspecified bronchus or lung (HCC) Procedures CT CHEST WO IVCON DIAGNOSTIC COMPUTED TOMOGRAPHY THORAX W/O Nghia Downing MD, [address] [place] [address] Ct Imaging Referral ID Status Reason Start Date Expiration Date Visits Requested Visits Authorized [id number] Authorized Auto-Generat ed Referral 02/11/2023 01/11/2024 1 1 Specialty Diagnoses / Procedures Referred By Contac t Referred To Contact CT IMAGING Diagnoses Lung nodules Procedures CT CHEST WO IVCON DIAGNOSTIC COMPUTED TOMOGRAPHY THORAX W/O Nghia Downing MD, [address] [facility] [place] [address] Ct Imaging Referral ID Status Reason Start Date Expiration Date Visits Requested Visits Authorized [id number] Authorized Auto-Generat ed Referral 05/21/2023 03/19/2024 1 1 Specialty Diagnoses / Procedures Referred By Contac t Referred To Contact Diagnoses Lung nodules 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) Procedures CONSULT TO PULMONARY MEDICINE Inocente Nichols MD [address] [place] [id number] Referral ID Status Reason Start Date Expiration Date Visits Requested Visits Authorized [id number] Ref Not Required PCP Requested Referral 02/27/2023 05/28/2023 1 1 Specialty Diagnoses / Procedures Referred By Contac t Referred To Contact CT IMAGING Diagnoses Malignant neoplasm of unspecified part of unspecified bronchus or lung (HCC) Procedures CT CHEST WO IVCON DIAGNOSTIC COMPUTED TOMOGRAPHY THORAX W/O Nghia Downing MD, [address] [facility] [place] [address] [place] [id number] Referral ID Status Reason Start Date Expiration Date Visits Requested Visits Authorized [id number] Authorized Auto-Generat ed Referral 08/19/2023 07/16/2024 1 [...] or prosecute any alcohol or drug abuse patient.[facility] the event this information is protected by the Federal Confidentiality of Alcohol and Drug Abuse Patient Records regulations: The Federal rules restrict any use of the information to criminally investigate or prosecute any alcohol or drug abuse patient.[facility] the event this information is protected by the Federal Confidentiality of Alcohol and Drug Abuse Patient Records regulations: The Federal rules restrict any use of the information to criminally investigate or prosecute any alcohol or drug abuse patient.[facility] the event this information is protected by the Federal Confidentiality of Alcohol and Drug Abuse Patient Records regulations: The Federal rules restrict any use of the information to criminally investigate or prosecute any alcohol or drug abuse patient.[facility] the event this information is protected by the Federal Confidentiality of Alcohol and Drug Abuse Patient Records regulations: The Federal rules restrict any use of the information to criminally investigate or prosecute any alcohol or drug abuse patient.[facility] the event this information is protected by the Federal Confidentiality of Alcohol and Drug Abuse Patient Records regulations: The Federal rules restrict any use of the information to criminally investigate or prosecute any alcohol or drug abuse patient.[facility] the event this information is protected by the Federal Confidentiality of Alcohol and Drug Abuse Patient Records regulations: The Federal rules restrict any use of the information to criminally investigate or prosecute any alcohol or drug abuse patient.[facility] the event this information is protected by the Federal Confidentiality of Alcohol and Drug Abuse Patient Records regulations: The Federal rules restrict any use of the information to criminally investigate or prosecute any alcohol or drug abuse patient.[facility] the event this information is protected by the Federal Confidentiality of Alcohol and Drug Abuse Patient Records regulations: The Federal rules restrict any use of the information to criminally investigate or prosecute any alcohol or drug abuse patient.[facility] the event this information is protected by the Federal Confidentiality of Alcohol and Drug Abuse Patient Records regulations: The Federal rules restrict any use of the information to criminally investigate or prosecute any alcohol or drug abuse patient.[facility] the event this information is protected by the Federal Confidentiality of Alcohol and Drug Abuse Patient Records regulations: The Federal rules restrict any use of the information to criminally investigate or prosecute any alcohol or drug abuse patient.[facility] the event this information is protected by the Federal Confidentiality of Alcohol and Drug Abuse Patient Records regulations: The Federal rules restrict any use of the information to criminally investigate or prosecute any alcohol or drug abuse patient.[facility] the event this information is protected by the Federal Confidentiality of Alcohol and Drug Abuse Patient Records regulations: The Federal rules restrict any use of the information to criminally investigate or prosecute any alcohol or drug abuse patient.[facility] the event this information is protected by the Federal Confidentiality of Alcohol and Drug Abuse Patient Records regulations: The Federal rules restrict any use of the information to criminally investigate or prosecute any alcohol or drug abuse patient.[facility] the event this information is protected by the Federal Confidentiality of Alcohol and Drug Abuse Patient Records regulations: The Federal rules restrict any use of the information to criminally investigate or prosecute any alcohol or drug abuse patient.[facility] the event this information is protected by the Federal Confidentiality of Alcohol and Drug Abuse Patient Records regulations: The Federal rules restrict any use of the information to criminally investigate or prosecute any alcohol or drug abuse patient.[facility] the event this information is protected by the Federal Confidentiality of Alcohol and Drug Abuse Patient Records regulations: The Federal rules restrict any use of the information to criminally investigate or prosecute any alcohol or drug abuse patient.[facility] the event this information is protected by the Federal Confidentiality of Alcohol and Drug Abuse Patient Records regulations: The Federal rules restrict any use of the information to criminally investigate or prosecute any alcohol or drug abuse patient.[facility]In the event this information is protected by the Federal Confidentiality of Alcohol and Drug Abuse Patient Records regulations: The Federal rules restrict any use of the information to criminally investigate or prosecute any alcohol or drug abuse patient.[facility] SouthIn the event this information is protected by the Federal Confidentiality of Alcohol and Drug Abuse Patient Records regulations: The Federal rules restrict any use of the information to criminally investigate or prosecute any alcohol or drug abuse patient.[facility] SouthIn the event this information is protected by the Federal Confidentiality of Alcohol and Drug Abuse Patient Records regulations: The Federal rules restrict any use of the information to criminally investigate or prosecute any alcohol or drug abuse patient.[facility] SouthIn the event this information is protected by the Federal Confidentiality of Alcohol and Drug Abuse Patient Records regulations: The Federal rules restrict any use of the information to criminally investigate or prosecute any alcohol or drug abuse patient.[facility] SouthIn the event this information is protected by the Federal Confidentiality of Alcohol and Drug Abuse Patient Records regulations: The Federal rules restrict any use of the information to criminally investigate or prosecute any alcohol or drug abuse patient.[facility] SouthIn the event this information is protected by the Federal Confidentiality of Alcohol and Drug Abuse Patient Records regulations: The Federal rules restrict any use of the information to criminally investigate or prosecute any alcohol or drug abuse patient.[facility] SouthIn the event this information is protected by the Federal Confidentiality of Alcohol and Drug Abuse Patient Records regulations: The Federal rules restrict any use of the information to criminally investigate or prosecute any alcohol or drug abuse patient.[facility] SouthIn the event this information is protected by the Federal Confidentiality of Alcohol and Drug Abuse Patient Records regulations: The Federal rules restrict any use of the information to criminally investigate or prosecute any alcohol or drug abuse patient.[facility] SouthIn the event this information is protected by the Federal Confidentiality of Alcohol and Drug Abuse Patient Records regulations: The Federal rules restrict any use of the information to criminally investigate or prosecute any alcohol or drug abuse patient.[facility] SouthIn the event this information is protected by the Federal Confidentiality of Alcohol and Drug Abuse Patient Records regulations: The Federal rules restrict any use of the information to criminally investigate or prosecute any alcohol or drug abuse patient.[facility] SouthIn the event this information is protected by the Federal Confidentiality of Alcohol and Drug Abuse Patient Records regulations: The Federal rules restrict any use of the information to criminally investigate or prosecute any alcohol or drug abuse patient.[facility] SouthIn the event this information is protected by the Federal Confidentiality of Alcohol and Drug Abuse Patient Records regulations: The Federal rules restrict any use of the information to criminally investigate or prosecute any alcohol or drug abuse patient.[facility] SouthIn the event this information is protected by the Federal Confidentiality of Alcohol and Drug Abuse Patient Records regulations: The Federal rules restrict any use of the information to criminally investigate or prosecute any alcohol or drug abuse patient.[facility] SouthIn the event this information is protected by the Federal Confidentiality of Alcohol and Drug Abuse Patient Records regulations: The Federal rules restrict any use of the information to criminally investigate or prosecute any alcohol or drug abuse patient.[facility] SouthIn the event this information is protected by the Federal Confidentiality of Alcohol and Drug Abuse Patient Records regulations: The Federal rules restrict any use of the information to criminally investigate or prosecute any alcohol or drug abuse patient.[facility] SouthIn the event this information is protected by the Federal Confidentiality of Alcohol and Drug Abuse Patient Records regulations: The Federal rules restrict any use of the information to criminally investigate or prosecute any alcohol or drug abuse patient.[facility] SouthIn the event this information is protected by the Federal Confidentiality of Alcohol and Drug Abuse Patient Records regulations: The Federal rules restrict any use of the information to criminally investigate or prosecute any alcohol or drug abuse patient.[facility] SouthIn the event this information is protected by the Federal Confidentiality of Alcohol and Drug Abuse Patient Records regulations: The Federal rules restrict any use of the information to criminally investigate or prosecute any alcohol or drug abuse patient.[facility] SouthIn the event this information is protected by the Federal Confidentiality of Alcohol and Drug Abuse Patient Records regulations: The Federal rules restrict any use of the information to criminally investigate or prosecute any alcohol or drug abuse patient.[facility] SouthIn the event this information is protected by the Federal Confidentiality of Alcohol and Drug Abuse Patient Records regulations: The Federal rules restrict any use of the information to criminally investigate or prosecute any alcohol or drug abuse patient.[facility] SouthIn the event this information is protected by the Federal Confidentiality of Alcohol and Drug Abuse Patient Records regulations: The Federal rules restrict any use of the information to criminally investigate or prosecute any alcohol or drug abuse patient.[facility] SouthIn the event this information is protected by the Federal Confidentiality of Alcohol and Drug Abuse Patient Records regulations: The Federal rules restrict any use of the information to criminally investigate or prosecute any alcohol or drug abuse patient.[facility] SouthIn the event this information is protected by the Federal Confidentiality of Alcohol and Drug Abuse Patient Records regulations: The Federal rules restrict any use of the information to criminally investigate or prosecute any alcohol or drug abuse patient.[facility]In the event this information is protected by the Federal Confidentiality of Alcohol and Drug Abuse Patient Records regulations: The Federal rules restrict any use of the information to criminally investigate or prosecute any alcohol or drug abuse patient.[facility] SouthIn the event this information is protected by the Federal Confidentiality of Alcohol and Drug Abuse Patient Records regulations: The Federal rules restrict any use of the information to criminally investigate or prosecute any alcohol or drug abuse patient.[facility] SouthIn the event this information is protected by the Federal Confidentiality of Alcohol and Drug Abuse Patient Records regulations: The Federal rules restrict any use of the information to criminally investigate or prosecute any alcohol or drug abuse patient.[facility] SouthIn the event this information is protected by the Federal Confidentiality of Alcohol and Drug Abuse Patient Records regulations: The Federal rules restrict any use of the information to criminally investigate or prosecute any alcohol or drug abuse patient.[facility] SouthIn the event this information is protected by the Federal Confidentiality of Alcohol and Drug Abuse Patient Records regulations: The Federal rules restrict any use of the information to criminally investigate or prosecute any alcohol or drug abuse patient.[facility] SouthIn the event this information is protected by the Federal Confidentiality of Alcohol and Drug Abuse Patient Records regulations: The Federal rules restrict any use of the information to criminally investigate or prosecute any alcohol or drug abuse patient.[facility] SouthIn the event this information is protected by the Federal Confidentiality of Alcohol and Drug Abuse Patient Records regulations: The Federal rules restrict any use of the information to criminally investigate or prosecute any alcohol or drug abuse patient.[facility]In the event this information is protected by the Federal Confidentiality of Alcohol and Drug Abuse Patient Records regulations: The Federal rules restrict any use of the information to criminally investigate or prosecute any alcohol or drug abuse patient.[facility]In the event this information is protected by the Federal Confidentiality of Alcohol and Drug Abuse Patient Records regulations: The Federal rules restrict any use of the information to criminally investigate or prosecute any alcohol or drug abuse patient.[facility]In the event this information is protected by the Federal Confidentiality of Alcohol and Drug Abuse Patient Records regulations: The Federal rules restrict any use of the information to criminally investigate or prosecute any alcohol or drug abuse patient.[facility]In the event this information is protected by the Federal Confidentiality of Alcohol and Drug Abuse Patient Records regulations: The Federal rules restrict any use of the information to criminally investigate or prosecute any alcohol or drug abuse patient.[facility]In the event this information is protected by the Federal Confidentiality of Alcohol and Drug Abuse Patient Records regulations: The Federal rules restrict any use of the information to criminally investigate or prosecute any alcohol or drug abuse patient.[facility]In the event this information is protected by the Federal Confidentiality of Alcohol and Drug Abuse Patient Records regulations: The Federal rules restrict any use of the information to criminally investigate or prosecute any alcohol or drug abuse patient.[facility]In the event this information is protected by the Federal Confidentiality of Alcohol and Drug Abuse Patient Records regulations: The Federal rules restrict any use of the information to criminally investigate or prosecute any alcohol or drug abuse patient.[facility]In the event this information is protected by the Federal Confidentiality of Alcohol and Drug Abuse Patient Records regulations: The Federal rules restrict any use of the information to criminally investigate or prosecute any alcohol or drug abuse patient.[facility] SouthIn the event this information is protected by the Federal Confidentiality of Alcohol and Drug Abuse Patient Records regulations: The Federal rules restrict any use of the information to criminally investigate or prosecute any alcohol or drug abuse patient.[facility] SouthIn the event this information is protected by the Federal Confidentiality of Alcohol and Drug Abuse Patient Records regulations: The Federal rules restrict any use of the information to criminally investigate or prosecute any alcohol or drug abuse patient.[facility]In the event this information is protected by the Federal Confidentiality of Alcohol and Drug Abuse Patient Records regulations: The Federal rules restrict any use of the information to criminally investigate or prosecute any alcohol or drug abuse patient.[facility]In the event this information is protected by the Federal Confidentiality of Alcohol and Drug Abuse Patient Records regulations: The Federal rules restrict any use of the information to criminally investigate or prosecute any alcohol or drug abuse patient.[facility]In the event this information is protected by the Federal Confidentiality of Alcohol and Drug Abuse Patient Records regulations: The Federal rules restrict any use of the information to criminally investigate or prosecute any alcohol or drug abuse patient.[facility]In the event this information is protected by the Federal Confidentiality of Alcohol and Drug Abuse Patient Records regulations: The Federal rules restrict any use of the information to criminally investigate or prosecute any alcohol or drug abuse patient.[facility] SouthIn the event this information is protected by the Federal Confidentiality of Alcohol and Drug Abuse Patient Records regulations: The Federal rules restrict any use of the information to criminally investigate or prosecute any alcohol or drug abuse patient.[facility]In the event this information is protected by the Federal Confidentiality of Alcohol and Drug Abuse Patient Records regulations: The Federal rules restrict any use of the information to criminally investigate or prosecute any alcohol or drug abuse patient.[facility] SouthIn the event this information is protected by the Federal Confidentiality of Alcohol and Drug Abuse Patient Records regulations: The Federal rules restrict any use of the information to criminally investigate or prosecute any alcohol or drug abuse patient.[facility] SouthIn the event this information is protected by the Federal Confidentiality of Alcohol and Drug Abuse Patient Records regulations: The Federal rules restrict any use of the information to criminally investigate or prosecute any alcohol or drug abuse patient.[facility]In the event this information is protected by the Federal Confidentiality of Alcohol and Drug Abuse Patient Records regulations: The Federal rules restrict any use of the information to criminally investigate or prosecute any alcohol or drug abuse patient.[facility]In the event this information is protected by the Federal Confidentiality of Alcohol and Drug Abuse Patient Records regulations: The Federal rules restrict any use of the information to criminally investigate or prosecute any alcohol or drug abuse patient.[facility]In the event this information is protected by the Federal Confidentiality of Alcohol and Drug Abuse Patient Records regulations: The Federal rules restrict any use of the information to criminally investigate or prosecute any alcohol or drug abuse patient.[facility]In the event this information is protected by the Federal Confidentiality of Alcohol and Drug Abuse Patient Records regulations: The Federal rules restrict any use of the information to criminally investigate or prosecute any alcohol or drug abuse patient.[facility]In the event this information is protected by the Federal Confidentiality of Alcohol and Drug Abuse Patient Records regulations: The Federal rules restrict any use of the information to criminally investigate or prosecute any alcohol or drug abuse patient.[facility]In the event this information is protected by the Federal Confidentiality of Alcohol and Drug Abuse Patient Records regulations: The Federal rules restrict any use of the information to criminally investigate or prosecute any alcohol or drug abuse patient.[facility]In the event this information is protected by the Federal Confidentiality of Alcohol and Drug Abuse Patient Records regulations: The Federal rules restrict any use of the information to criminally investigate or prosecute any alcohol or drug abuse patient.[facility]In the event this information is protected by the Federal Confidentiality of Alcohol and Drug Abuse Patient Records regulations: The Federal rules restrict any use of the information to criminally investigate or prosecute any alcohol or drug abuse patient.[facility]In the event this information is protected by the Federal Confidentiality of Alcohol and Drug Abuse Patient Records regulations: The Federal rules restrict any use of the information to criminally investigate or prosecute any alcohol or drug abuse patient.[facility]In the event this information is protected by the Federal Confidentiality of Alcohol and Drug Abuse Patient Records regulations: The Federal rules restrict any use of the information to criminally investigate or prosecute any alcohol or drug abuse patient.[facility]In the event this information is protected by the Federal Confidentiality of Alcohol and Drug Abuse Patient Records regulations: The Federal rules restrict any use of the information to criminally investigate or prosecute any alcohol or drug abuse patient.[facility]In the event this information is protected by the Federal Confidentiality of Alcohol and Drug Abuse Patient Records regulations: The Federal rules restrict any use of the information to criminally investigate or prosecute any alcohol or drug abuse patient.[facility]In the event this information is protected by the Federal Confidentiality of Alcohol and Drug Abuse Patient Records regulations: The Federal rules restrict any use of the information to criminally investigate or prosecute any alcohol or drug abuse patient.[facility]In the event this information is protected by the Federal Confidentiality of Alcohol and Drug Abuse Patient Records regulations: The Federal rules restrict any use of the information to criminally investigate or prosecute any alcohol or drug abuse patient.[facility]In the event this information is protected by the Federal Confidentiality of Alcohol and Drug Abuse Patient Records regulations: The Federal rules restrict any use of the information to criminally investigate or prosecute any alcohol or drug abuse patient.[facility] SouthIn the event this information is protected by the Federal Confidentiality of Alcohol and Drug Abuse Patient Records regulations: The Federal rules restrict any use of the information to criminally investigate or prosecute any alcohol or drug abuse patient.[facility] Reason for Visit (unrecogniz ed section and content) Specialty Diagnoses / Procedures Referred By Contac t Referred To Contact CT IMAGING Diagnoses Neoplasm of lung Procedures CT CHEST WO IVCON DIAGNOSTIC COMPUTED TOMOGRAPHY THORAX W/O Nghia Downing MD, [address] [place] [address] Ct Imaging Referral ID Status Reason Start Date Expiration Date V isits Requested Visits Authorized [id number] Closed Auto-Generate d Referral 05/02/2022 03/01/2023 1 [...] Reason Comments Home Health Orders Reason Comments [facility] PT POC Reason Comments Results Reason Comments Orders for wound care Reason Comments Follow Up Rx Refills Reason Comments leg swelling wound on right leg Referral ID Status Reason Start Date Expiration Date V isits Requested Visits Authorized [id number] Closed Auto-Generate d Referral 01/13/2022 12/06/2022 1 1 Reason Comments 1 week follow up leg Reason Comments Scans schedule PET at [facility] Reason Comments 2 month follow-up Reason Comments Injections Specialty Diagnoses / Procedures Referred By Conttiffani t Referred To Contact Pain Management / PAIN MANAGEMENT Diagnoses Trochanteric bursitis, right hip Right trochanteric bursal injection (in office, no image guidance) Procedures ARTHROCENTESIS ASPIR&/INJ MAJOR JT/BURSA W/O US SPECIALTY INJECTION Juancho Carpenter MD Fox, Kermit, MD [address] [place] [id number] Referral ID Status Reason Start Date Expiration Date Visits Re quested Visits Authorized [id number] Closed 02/27/2022 05/28/2022 1 1 Reason Comments Patient Update Reason Comments FYI-No Action Needed Reason Comments Hospital F/U Reason Comments Correction Update Reason Comments Medication Question Reason Comments Faxed to [facility] Reason Onset Date Comments Opened In Error [...] appetite Reason Comments patient information Reason Comments [facility], [facility] Pt up date/apt for today Reason Comments [facility] HH Orders Reason Comments Home Health update Reason Onset Date Comments Refill Request 01/06/2023 Reason Comments Erroneous encounter-disregard Reason Comments Opened In Error Reason Comments 4 week follow up Reason Comments nail care New Specialty Diagnoses / Procedures Referred By Contac t Referred To Contact Podiatry Diagnoses Dermatophytosis of nail Lymphedema Procedures CONSULT TO PODIATRY OFFICE/OUTPATIENT [facility] 60-74 MINUTES Inocente Nichols MD [address] [place] [address] Referral ID Status Reason Start Date Expiration Date V isits Requested Visits Authorized [id number] Closed PCP Requested Referral 12/26/2022 12/26/2023 [address] Specialty Diagnoses / Procedures Referred By Contac t Referred To Contact CT IMAGING Diagnoses Lung nodules Procedures CT CHEST WO IVCON DIAGNOSTIC COMPUTED TOMOGRAPHY THORAX W/O CNTRST Nghia Harvey MD, MD [address] [place] [address] [place] [address] Referral ID Status Reason Start Date Expiration Date V isits Requested Visits Authorized [id number] Closed Auto-Generate d Referral 05/21/2023 03/19/2024 1 1 Reason Comments Appointment Care Teams (unrecognized sec tion and content) Abalone Fisherman Relationship Specialty Start Date End Date Inocente Nichols MD [address] [place] [address] PCP - General Internal Medicine 11/30/20 Nghia Harvey MD, [address] [place] [address] Physician Radiation Oncology 07/10/21 Abalone Fisherman Relationship Specialty Start Date End Date Inocente Nichols MD [address] [place] [address] PCP - General Internal Medicine 11/30/20 Nghia Harvey MD, [address] [place] [place] [address] Physician Radiation Oncology 07/10/21 Abalone Fisherman Relationship Specialty Start Date End Date Inocente Nichols MD [address] [place] [address] PCP - General Internal Medicine 11/30/20 Nghia Harvey MD, [address] [place] [address] Physician Radiation Oncology 07/10/21 Abalone Fisherman Relationship Specialty Start Date End Date Inocente Nichols MD [address] [place] [address] PCP - General Internal Medicine 11/30/20 Nghia Harvey MD, [address] [place] [address] Physician Radiation Oncology 07/10/21 Abalone Fisherman Relationship Specialty Start Date End Date Inocente Nichols MD [address] [facility] [place] [address] PCP - General Internal Medicine 11/30/20 Nghia Harvey MD, [address] [facility] [place] [address] Physician Radiation Oncology 07/10/21 Abalone Fisherman Relationship Specialty Start Date End Date Inocente Nichols MD [address] [facility] [place] [address] PCP - General Internal Medicine 11/30/20 Nghia Harvey MD, [address] [facility] [place] [address] Physician Radiation Oncology 07/10/21 Abalone Fisherman Relationship Specialty Start Date End Date Inocente Nichols MD [address] [facility] [place] [address] PCP - General Internal Medicine 11/30/20 Nghia Harvey MD, [address] [facility] [place] [address] Physician Radiation Oncology 07/10/21 Abalone Fisherman Relationship Specialty Start Date End Date Inocente Nichols MD [address] [facility] [place] [address] PCP - General Internal Medicine 11/30/20 Nghia Harvey MD, [address] [place] [address] Physician Radiation Oncology 07/10/21 Abalone Fisherman Relationship Specialty Start Date End Date Inocente Nichols MD [address] [facility] [address] PCP - General Internal Medicine 11/30/20 Nghia Harvey MD, [address] [facility]], [place] [address] Physician Radiation Oncology 07/10/21 Abalone Fisherman Relationship Specialty Start Date End Date Inocente Nichols MD [address] [facility] [address] PCP - General Internal Medicine 11/30/20 Nghia Harvey MD, [address] [facility]], [place] [address] Physician Radiation Oncology 07/10/21 Abalone Fisherman Relationship Specialty Start Date End Date Inocente Nichols MD [address] [facility] [address] PCP - General Internal Medicine 11/30/20 Nghia Harvey MD, [address] [facility]], [place] [address] Physician Radiation Oncology 07/10/21 Abalone Fisherman Relationship Specialty Start Date End Date Inocente Nichols MD [address] [facility] [address] PCP - General Internal Medicine 11/30/20 Nghia Harvey MD, [address] [facility]], [place] [address] Physician Radiation Oncology 07/10/21 Abalone Fisherman Relationship Specialty Start Date End Date Inocente Nichols MD [address] [facility] [address] PCP - General Internal Medicine 11/30/20 Nghia Harvey MD, [address] [facility]], [place] [address] Physician Radiation Oncology 07/10/21 Abalone Fisherman Relationship Specialty Start Date End Date Inocente Nichols MD [address] [facility] [address] PCP - General Internal Medicine 11/30/20 Nghia Harvey MD, [address] [facility] [place] [address] Physician Radiation Oncology 07/10/21 Abalone Fisherman Relationship Specialty Start Date End Date Inocente Nichols MD [address] [facility] [address] PCP - General Internal Medicine 11/30/20 Nghia Harvey MD, [address] [facility]], [place] [address] Physician Radiation Oncology 07/10/21 Abalone Fisherman Relationship Specialty Start Date End Date Inocente Nichols MD [address] [facility] [address] PCP - General Internal Medicine 11/30/20 Nghia Harvey MD, [address] [facility]], [place] [address] Physician Radiation Oncology 07/10/21 Abalone Fisherman Relationship Specialty Start Date End Date Inocente Nichols MD [address] [facility] [address] PCP - General Internal Medicine 11/30/20 Nghia Harvey MD, [address] [facility]], [place] [address] Physician Radiation Oncology 07/10/21 Abalone Fisherman Relationship Specialty Start Date End Date Inocente Nichols MD [address] [place] [address] PCP - General Internal Medicine 11/30/20 Nghia Harvey MD, [address] [facility] [place] [address] Physician Radiation Oncology 07/10/21 Abalone Fisherman Relationship Specialty Start Date End Date Inocente Nichols MD [address] [facility] [place] [address] PCP - General Internal Medicine 11/30/20 Nghia Harvey MD, [address] [facility]], [place] [address] Physician Radiation Oncology 07/10/21 Abalone Fisherman Relationship Specialty Start Date End Date Inocente Nichols MD [address] [facility] [place] [address] PCP - General Internal Medicine 11/30/20 Nghia Harvey MD, [address] [facility]], [place] [address] Physician Radiation Oncology 07/10/21 Abalone Fisherman Relationship Specialty Start Date End Date Inocente Nichols MD [address] [facility] [place] [address] PCP - General Internal Medicine 11/30/20 Nghia Harvey MD, [address] [facility] [place] [address] Physician Radiation Oncology 07/10/21 Abalone Fisherman Relationship Specialty Start Date End Date Inocente Nichols MD [address] [facility] [place] [address] PCP - General Internal Medicine 11/30/20 Nghia Harvey MD, [address] [facility]], [place] [address] Physician Radiation Oncology 07/10/21 Abalone Fisherman Relationship Specialty Start Date End Date Inocente Nichols MD [address] [facility] [place] [address] PCP - General Internal Medicine 11/30/20 Nghia Harvey MD, [address] [facility] [place] [address] Physician Radiation Oncology 07/10/21 Abalone Fisherman Relationship Specialty Start Date End Date Inocente Nichols MD [address] [facility] [place] [address] PCP - General Internal Medicine 11/30/20 Nghia Harvey MD, [address] [facility] [place] [address] Physician Radiation Oncology 07/10/21 Abalone Fisherman Relationship Specialty Start Date End Date Inocente Nichols MD [address] [facility] [place] [address] PCP - General Internal Medicine 11/30/20 Nghia Harvey MD, [address] [facility] [place] [address] Physician Radiation Oncology 07/10/21 Abalone Fisherman Relationship Specialty Start Date End Date Inocente Nichols MD [address] [facility] [place] [address] PCP - General Internal Medicine 11/30/20 Nghia Harvey MD, [address] [facility] [place] [address] Physician Radiation Oncology 07/10/21 Abalone Fisherman Relationship Specialty Start Date End Date Inocente Nichols MD [address] [facility] [place] [address] PCP - General Internal Medicine 11/30/20 Nghia Harvey MD, [address] [place] [address] Physician Radiation Oncology 07/10/21 Abalone Fisherman Relationship Specialty Start Date End Date Inocente Nichols MD [address] [place] [address] PCP - General Internal Medicine 11/30/20 Nghia Harvey MD, [address] [place] [address] Physician Radiation Oncology 07/10/21 Abalone Fisherman Relationship Specialty Start Date End Date Inocente Nichols MD [address] [facility] [place] [address] PCP - General Internal Medicine 11/30/20 Nghia Harvey MD, [address] [facility] [place] [address] Physician Radiation Oncology 07/10/21 Abalone Fisherman Relationship Specialty Start Date End Date Inocente Nichols MD [address] [place] [address] PCP - General Internal Medicine 11/30/20 Nghia Harvey MD, [address] [place] [address] Physician Radiation Oncology 07/10/21 Abalone Fisherman Relationship Specialty Start Date End Date Inocente Nichols MD [address] [place] [address] PCP - General Internal Medicine 11/30/20 Nghia Harvey MD, [address] [place] [address] Physician Radiation Oncology 07/10/21 Abalone Fisherman Relationship Specialty Start Date End Date Inocente Nichols MD [address] [facility] [place] [address] PCP - General Internal Medicine 11/30/20 Nghia Harvey MD, [address] [facility] [place] [address] Physician Radiation Oncology 07/10/21 Abalone Fisherman Relationship Specialty Start Date End Date Inocente Nichols MD [address] [facility] [address] PCP - General Internal Medicine 11/30/20 Nghia Harvey MD, [address] [facility] [place] [address] Physician Radiation Oncology 07/10/21 Abalone Fisherman Relationship Specialty Start Date End Date Inocente Nichols MD [address] [facility] [address] PCP - General Internal Medicine 11/30/20 Nghia Harvey MD, [address] [facility] [place] [address] Physician Radiation Oncology 07/10/21 Abalone Fisherman Relationship Specialty Start Date End Date Inocente Nichols MD [address] [facility] [address] PCP - General Internal Medicine 11/30/20 Nghia Harvey MD, [address] [facility] [place] [address] Physician Radiation Oncology 07/10/21 Abalone Fisherman Relationship Specialty Start Date End Date Inocente Nichols MD [address] [facility] [address] PCP - General Internal Medicine 11/30/20 Nghia Harvey MD, [address] [place] [address] Physician Radiation Oncology 07/10/21 Abalone Fisherman Relationship Specialty Start Date End Date Inocente Nichols MD [address] [place], [place] [address] PCP - General Internal Medicine 11/30/20 Nghia Harvey MD, [address] [place], [place] [address] [phone] Physician Radiation Oncology 07/10/21 Abalone Fisherman Relationship Specialty Start Date End Date Inocente Nichols MD [address] [address] PCP - General Internal Medicine 11/30/20 Nghia Harvey MD, [address] [place] [address] Physician Radiation Oncology 07/10/21 Abalone Fisherman Relationship Specialty Start Date End Date Inocente Nichols MD [address] [place], [place] [address] PCP - General Internal Medicine 11/30/20 Nghia Harvey MD, [address] [place], [place] [address] [phone] Physician Radiation Oncology 07/10/21 Abalone Fisherman Relationship Specialty Start Date End Date Inocente Nichols MD [address] [place], [place] [address] PCP - General Internal Medicine 11/30/20 Nghia Harvey MD, [address] [place] [address] Physician Radiation Oncology 07/10/21 Abalone Fisherman Relationship Specialty Start Date End Date Inocente Nichols MD [address] [place], [place] [address] PCP - General Internal Medicine 11/30/20 Nghia Harvey MD, [address] [place], [place] [address] [phone] Physician Radiation Oncology 07/10/21 Abalone Fisherman Relationship Specialty Start Date End Date Inocente Nichols MD [address] [address] PCP - General Internal Medicine 11/30/20 Nghia Harvey MD, [address] [place] [address] Physician Radiation Oncology 07/10/21 Abalone Fisherman Relationship Specialty Start Date End Date Inocente Nichols MD [address] [place], [place] [address] PCP - General Internal Medicine 11/30/20 Nghia Harvey MD, [address] [place], [place] [address] [phone] Physician Radiation Oncology 07/10/21 Abalone Fisherman Relationship Specialty Start Date End Date Inocente Nichols MD [address] [place], [place] [address] PCP - General Internal Medicine 11/30/20 Nghia Harvey MD, [address] [place] [address] Physician Radiation Oncology 07/10/21 Abalone Fisherman Relationship Specialty Start Date End Date Inocente Nichols MD [address] [facility] [place] [address] PCP - General Internal Medicine 11/30/20 Nghia Harvey MD, [address] [place], [place] [address] Physician Radiation Oncology 07/10/21 (unrecognized sect ion and content) No Status Records FoundNo Status Records Found INFORMATION SOURCE (unrecogn ized section and content) DATE CREATED AUTHOR AUTHOR'S ORGANIZ ATION 06/20/2023 [facility] FOR RECORDS PERTAINING TO PATIENTS WHO ARE [...] BE BASED ON THE PRIMARY CLINICAL RECORDS. [employer] provides no warranty or guarantee of the accuracy or completeness of information in this document.
== END ==
LOC: OLS.SW 05:00
PROVIDERS: PCP Family Medicine; Visit Provider Family Medicine
DX: F10.20 Alcohol dependence, uncomplicated (principal)
CPT/HCPCS: 36415; 82140